=== PATIENT | male | born 1935 | race Caucasian/White ===

== ENCOUNTER 2017-07-15 09:03 | Inpatient (IN) | payer MEDICARE ==
[~2017-07-15] VITALS: Ht 185.4 cm; Wt 118.1 kg
[~2017-07-15 09:03] MED LIST: ADVAIR 250-501 EACH IH; ALBUTEROL2.5 MG/3 M INH; BABY ASPIRIN81 MG PO; CALCIUM 600 +1 EACH PO; CARVEDILOL3.125 MG PO; CENTRAL-VITE1 EACH PO; CINNAMON500 MG PO; CIPRO500 MG PO; CIPROFLOXACIN500 MG PO; COMBIVENT INH14.7 GM INH; COUMADIN10 MG PO; COUMADIN7.5 MG; DEMADEX20 MG PO; DUONEB 0.5 MG-33 ML INH; FLUCONAZOLE200 MG; FUROSEMIDE80 MG PO; GLUCOPHAGE500 MG PO; GLUCOSAMINE-MS1 EAC3 PO; KEFLEX500 MG PO; KLOR-CON 1010 MEQ PO; KLOR-CON M2020 MEQ PO; L-ARGININE1000 MG PO; LASIX40 MG PO; LISINOPRIL2.5 MG PO; MACROBID 100 M100 MG PO; MACRODANTIN100 MG PO; MACRODANTIN50 MG PO; METFORMIN HCL1000 MG PO; NITROFURANTOIN50 MG PO; NITROSTAT0.4 MG SL; NORCO 5-325 TA1 EACH PO; OMEPRAZOLE20 MG PO; PRAVACHOL80 MG PO; PREDNISONE20 MG PO; PROMETHAZINE-COD5 ML PO; SPIRIVA18 MCG IH; SULFAMETHOXAZO1 EAC1 PO; SYNTHROID150 MCG PO; SYNTHROID25 MCG PO; TORSEMIDE20 MG PO; VENTOLIN HFA18 GM INH; VITAMIN C250 MG PO; WARFARIN SODIUM2 MG PO; WARFARIN SODIUM3 MG PO; ZITHROMAX PO; ZITHROMAX500 MG PO
[2017-07-15] MEDS ORDERED: AZITHROMYCIN500 MG PO (09:22)
[2017-07-15] MEDS ORDERED: METHYLPREDNISOLO4 MG PO (09:22)
[2017-07-15] MEDS ORDERED: ADVAIR 100-501 EACH PO (12:10)
[2017-07-15] MEDS ORDERED: SPIRIVA18 MCG INH (12:11)
--- NOTE | 2017-07-15 17:59 | EKG ---
[facility] [address] [facility] [place], [place] [address] Signed Ventricular-paced rhythm Abnormal ECG No previous ECGs available Confirmed by DESTINI CHERY MD ([id number]) on 07/15/2017 5:59:12 PM Electronically Signed By: DESTINI CHERY MD 07/15/17 1759 PATIENT NAME: DENISE VENTURA Electrocardiogram DATE OF : 37 PHYSICIAN: DESTINI CHERY MD REPORT #: [id number] REPORT IS CONFIDENTIAL AND NOT TO BE RELEASED WITHOUT AUTHORIZATION
[2017-07-17] MEDS ORDERED: DOXYCYCLINE HY100 MG PO (21:17)
[2017-07-17] MEDS ORDERED: CEFDINIR300 MG PO (21:17)
[2017-07-17] MEDS ORDERED: NITROFURANTOIN50 MG PO (21:18)
[2017-07-18] MEDS ORDERED: DOXYCYCLINE HY100 MG PO (09:55)
[2017-07-18] MEDS ORDERED: CEFDINIR300 MG PO (09:55)
[2017-07-19] MEDS ORDERED: GUAIFEN-CODEINE10 ML PO (09:21)
[2017-08-08] MEDS ORDERED: COLCRYS0.6 MG PO (10:17)
== END 2017-07-19 12:45 | disposition home or self-care (01) | DRG 194 ==
LOC: ED 09:03 → MS 11:33
PROVIDERS: ADMIT Internal Medicine
DX: J18.1 Lobar pneumonia, unspecified organism (principal); J44.0 Chronic obstructive pulmonary disease with (acute) lower respiratory infection; J44.1 Chronic obstructive pulmonary disease with (acute) exacerbation; I13.0 Hypertensive heart and chronic kidney disease with heart failure and stage 1 through stage 4 chronic kidney disease, or unspecified chronic kidney disease; I25.10 Atherosclerotic heart disease of native coronary artery without angina pectoris; N18.3 Chronic kidney disease, stage 3 (moderate); I50.9 Heart failure, unspecified; E03.9 Hypothyroidism, unspecified; E78.5 Hyperlipidemia, unspecified; I48.91 Unspecified atrial fibrillation; K21.9 Gastro-esophageal reflux disease without esophagitis; E11.22 Type 2 diabetes mellitus with diabetic chronic kidney disease; Z79.01 Long term (current) use of anticoagulants; Z87.891 Personal history of nicotine dependence; Z95.4 Presence of other heart-valve replacement; Z79.84 Long term (current) use of oral hypoglycemic drugs
CPT/HCPCS: 36415; 71046; 80048; 80053; 80202; 83605; 84484; 85025; 85610; 87040; 87070; 87205; 93005; 93010; 94640; 94660; 94667; 94668; J0696; J2930; J3370; J7040; J7050

== ENCOUNTER 2017-11-19 00:16 | Emergency (ER) | payer MEDICARE ==
[~2017-11-19] VITALS: Ht 185.4 cm; Wt 112.5 kg
[~2017-11-19 00:16] MED LIST changes: +ADVAIR 100-501 EACH PO; +AZITHROMYCIN500 MG PO; +CEFDINIR300 MG PO; +COLCRYS0.6 MG PO; +DOXYCYCLINE HY100 MG PO; +GUAIFEN-CODEINE10 ML PO; +METHYLPREDNISOLO4 MG PO; +SPIRIVA18 MCG INH
[2017-11-19] MEDS ORDERED: CIPRO500 MG PO (01:30)
[2017-11-19] MEDS ORDERED: PYRIDIUM200 MG PO (01:30)
== END 2017-11-19 01:43 | disposition home or self-care (01) ==
LOC: ED 00:16
DX: N39.0 Urinary tract infection, site not specified (principal); E11.9 Type 2 diabetes mellitus without complications; J44.9 Chronic obstructive pulmonary disease, unspecified; Z88.8 Allergy status to other drugs, medicaments and biological substances; Z79.899 Other long term (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; Z79.01 Long term (current) use of anticoagulants
CPT/HCPCS: 81001; 87088; 99283

== ENCOUNTER 2018-01-06 08:00 | Emergency (ER) | payer MEDICARE ==
[~2018-01-06] VITALS: Ht 185.4 cm; Wt 112.5 kg
[~2018-01-06 08:00] MED LIST changes: +BACTRIM DS TAB1 EACH PO; +PYRIDIUM200 MG PO
[2018-01-06] MEDS ORDERED: DOXYCYCLINE HY100 MG PO (08:55)
== END 2018-01-06 09:24 | disposition home or self-care (01) ==
LOC: ED 08:00
DX: L27.0 Generalized skin eruption due to drugs and medicaments taken internally (principal); T37.0X5A Adverse effect of sulfonamides, initial encounter; M70.21 Olecranon bursitis, right elbow; Z88.8 Allergy status to other drugs, medicaments and biological substances; Z88.1 Allergy status to other antibiotic agents; Z79.899 Other long term (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
CPT/HCPCS: 85610; 99283

== ENCOUNTER 2018-10-20 10:53 | Emergency (ER) | payer MEDICARE ==
[~2018-10-20] VITALS: Ht 185.4 cm; Wt 111.7 kg
--- OUTSIDE RECORDS SUMMARY | ~2018-10-20 | XMS | Encounter Summary ---
Demographics + + + | Address | [address] | | | [place] [address] | + + + | Home Phone | | + + + | Preferred Language | Unknown | + + + | Marital Status | | + + + | Jewish Affiliation | 1013 | + + + | Race | Unknown | + + + | Ethnic Group | Unknown | + + + Author + + + | Author | [email or web address] | + + + | Organization | [facility] | + + + | Address | Unknown | + + + | Phone | Unavailable | + + + Support + + +---------+ + | Name | Relationship | Address | Phone | + + +---------+ + | Juana Gasca | ECON | Unknown | | + + +---------+ + Care Team Providers + +------+ + | Care Clinical Technologist Name | Role | Phone | + +------+ + | Timo Lorenzana MD | PCP | | + +------+ + Reason for Visit + + + | Reason | Comments | + + + | Medication Refill | | + + + Encounter Details +--------+--------+ + + + | Date | Type | Department | Care Team | Description | +--------+--------+ + + + | 10/13/ | Refill | [facility] | Kartik Elam | Medication Refill | | 2019 | | Cardiology Jacklyn Muniz MD [address] | | | | | [address] | [place] | | | | | [place], [place] | [place] [address] | | | | | [address] | [phone] | | | | | [phone] | | | +--------+--------+ + + + Social History + + + +--------+ + | Tobacco Use | Types | Packs/Day | Years | Date | | | | | Used | | + + + +--------+ + | Former Smoker | Cigarettes | 2.5 | 50 | Quit: 06/05/1990 | + + + +--------+ + + +---+---+---+ | Smokeless Tobacco: | | | | | Never Used | | | | + +---+---+---+ + + | Comments: quit 07/22/1990 | + + + + +---------+ + | Alcohol Use | Drinks/We | oz/Week | Comments | | | ek | | | + + +---------+ + | Yes | 7-10 | 4.2 - | | | | Glasses | 6.0 | | | | of wine | | | | | 0 | | | | | Standard | | | | | drinks or | | | | | | | | | | equivalen | | | | | t | | | + + +---------+ + + + + | Sex Assigned at | Date Recorded | | | | + + + | Not on file | | + + + as of this encounter Plan of Treatment +--------+ + + + + | Date | Type | Specialty | Care Team | Description | +--------+ + + + + | 11/27/ | Documentati | Cardiology | | | | 2019 | on Only | | | | +--------+ + + + + | 04/03/ | Office | Cardiology | Elif Hylton, | | | 2018 | Visit | | MD Asad Simpson | | | | | | Dr [address], | | | | | | [place] [address] | | | | | | [phone] | | | | | | | | +--------+ + + + + as of this encounter Visit Diagnoses + + | Diagnosis | + + | Chronic atrial fibrillation (HCC) | + + | Atrial fibrillation | + +"
--- OUTSIDE RECORDS SUMMARY | ~2018-10-20 | XMS | Clinical Summary ---
Demographics + + + | Address | [address] | | | [place] [address] | + + + | Home Phone | | + + + | Preferred Language | Unknown | + + + | Marital Status | | + + + | Druze Affiliation | 1013 | + + + | Race | Unknown | + + + | Ethnic Group | Unknown | + + + Author + + + | Author | [employer] | + + + | Organization | [facility] [employer] [facility] | + + + | Address | Unknown | + + + | Phone | Unavailable | + + + Support + + +---------+ + | Name | Relationship | Address | Phone | + + +---------+ + | Juana Ventura | ECON | Unknown | | + + +---------+ + Care Team Providers + +------+ + | Care Deployment Manager Name | Role | Phone | [...] + + + Current Medications + + + +---------+------+------+-------+ | Prescription | Sig. | Disp. | Refills | Star | End | Statu | | | | | | t | Date | s | | | | | | Date | | | + + + +---------+------+------+-------+ | levothyroxine | Take 150 mcg by | | | | | Activ | | (SYNTHROID, | mouth every morning | | | | | e | | LEVOTHROID) 150 MCG | before breakfast. | | | | | | | tablet | | | | | | | + + + +---------+------+------+-------+ | warfarin | Take 10 mg by mouth | | | | | Activ | | (COUMADIN) 10 MG | daily. Sliding | | | | | e | | tablet | [facility] | | | | | | | | regulates | | | | | | + + + +---------+------+------+-------+ | pravastatin | Take 80 mg by mouth | | | | | Activ | | (PRAVACHOL) 80 MG | nightly. | | | | | e | | tablet | | | | | | | + + + +---------+------+------+-------+ | omeprazole | Take 20 mg by mouth | | | | | Activ | | (PRILOSEC) 20 MG | every morning before | | | | | e | | capsule | breakfast. | | | | | | + + + +---------+------+------+-------+ | aspirin 81 MG EC | Take 81 mg by mouth | | | | | Activ | | tablet | daily with | | | | | e | | | breakfast. | | | | | | + + + +---------+------+------+-------+ | Multiple | Take by mouth | | | | | Activ | | Vitamins-Minerals | daily. | | | | | e | | (EQL CENTRAL-ROSAMARIA | | | | | | | | SELECT PO) | | | | | | | + + + +---------+------+------+-------+ | | Take 3,000 mg by | | | | | Activ | | Glucosamine-Chondroi | mouth daily. | | | | | e | | t-Vit C-Mn | | | | | | | | (GLUCOSAMINE 1500 | | | | | | | | COMPLEX PO) | | | | | | | + + + +---------+------+------+-------+ | albuterol | Inhale 2 puffs into | | | | | Activ | | (VENTOLIN HFA) 108 | the lungs every 4 | | | | | e | | (90 BASE) MCG/ACT | (four) hours as | | | | | | | inhaler | needed. | | | | | | + + + +---------+------+------+-------+ | Respiratory | by Does not apply | | | | | Activ | | Therapy Supplies | route as needed. | | | | | e | | (NEBULIZER | | | | | | | | COMPRESSOR) KIT | | | | | | | + + + +---------+------+------+-------+ | NITROSTAT 0.4 MG | place 1 [...] | | | | + + + +---------+------+------+-------+ | nitrofurantoin | Take 50 mg by mouth | | | | | Activ | | (MACRODANTIN) 50 MG | nightly. | | | | | e | | capsule | | | | | | | + + + +---------+------+------+-------+ | CINNAMON PO | Take 1,000 mg by | | | | | Activ | | | mouth daily. | | | | | e | + + + +---------+------+------+-------+ | cyanocobalamin | Take 1,000 mcg by | | | | | Activ | | (VITAMIN B-12) 1000 | mouth daily. | | | | | e | | MCG tablet | | | | | | | + + + +---------+------+------+-------+ | tiotropium | Inhale 1 capsule | [...] | | | | + + + +---------+------+------+-------+ | metFORMIN | Take 850 mg by mouth | | | 02/0 | | Activ | | (GLUCOPHAGE) 500 MG | 3 (three) times | | | 8/20 | | e | | tablet | daily. | | | 17 | | | + + + +---------+------+------+-------+ | torsemide | Take 2 tablets by | 360 | 3 | 08/0 | | Activ | | (DEMADEX) 20 MG | mouth daily. | tablet | | 9/20 | | e | | tablet | | | | 17 | | | + + + +---------+------+------+-------+ | | Inhale 1 puff into | [...] | | | | + + + +---------+------+------+-------+ | torsemide | TAKE 2 TABLETS BY | 360 | 2 | 06/0 | | Activ | | (DEMADEX) 20 MG | MOUTH 2 TIMES DAILY | tablet | | 4/20 | | e | | tablet | NEEDED. | | | 18 | | | + + + +---------+------+------+-------+ | albuterol | Take 3 mLs by | 360 mL | 6 | 07/2 | 07/2 | Activ | | (PROVENTIL) (2.5 | nebulization every 6 | | | 3/20 | 3/20 | e | | MG/3ML) 0.083% | (six) hours as | | | 18 | 19 | | | nebulizer | needed for Wheezing. | | | | | | | solutionIndications: | | | | | | | | Chronic obstructive | | | | | | | | pulmonary disease, | | | | | | | | unspecified COPD | | | | | | | | type (HCC) | | | | | | | + + + +---------+------+------+-------+ | lisinopril | TAKE 1 TABLET BY | 90 | 2 | 05/1 | | Activ | | (ZESTRIL) 2.5 MG | MOUTH DAILY | tablet | | 2/20 | | e | | tablet | | | | 19 | | | + + + +---------+------+------+-------+ | potassium chloride | TAKE 1 TABLET BY | 90 | 2 | 05/1 | | Activ | | SA (KTIFF LAY) | MOUTH DAILY | tablet | | 2/20 | | e | | 20 MEQ tablet | | | | 19 | | | + + + +---------+------+------+-------+ | carvedilol (COREG) | Take 0.5 tablets by | 90 | 3 | 05/1 | | Activ | | 3.125 MG tablet | mouth 2 (two) times | tablet | | 3/20 | | e | | | daily. | | | 19 | | | + + + +---------+------+------+-------+ | lisinopril | TAKE 1 TABLET BY | 90 | 2 | / | 05/ | Disco | | (ZESTRIL) 2.5 MG | MOUTH DAILY | tablet | | 8/20 | 20 | ntinu | | tablet | | | | 18 | 19 | ed | + + + +---------+------+------+-------+ | potassium chloride | TAKE 1 TABLET BY | 90 | 2 | / | 10/03 | Disco | | SA (KTIFF LAY) | MOUTH DAILY | tablet | | 8/20 | /20 | ntinu | | 20 MEQ tablet | | | | 18 | 19 | ed | + + + +---------+------+------+-------+ | carvedilol (COREG) | TAKE ONE-HALF TABLET | 45 | 3 | 03/0 | 05/1 | Disco | | 3.125 MG tablet | BY MOUTH TWO TIMES | tablet | | 4/20 | 08/22 | ntinu | | | DAILY | | | 19 | 19 | ed | + + + +---------+------+------+-------+ Active Problems + + + | Problem [...] | | prophylaxis reenforced. Anticoagulation managed by [facility].Hx CABG: no, but [...] | Overview: Overview: | | 03/10/2014 at [facility] | + + + + + | [...] | implanted 08/30/2007, Maris Shaffer 1291, SN: [id number] | | interrogation 04/16/2015: battery "good", 3+years, [...] Taxus | | SHIRLEY).Hx Pacemaker/ICD: 08/30/2007, Guidant Insignia 1291, SN: | | [id number] Cath, 03/09/2014: RA: 80/13 mean 16mmHg, RV: [...] fib, V-paced 100%. | + + Encounters +--------+ + + + + | Date | Type | Specialty | Care Team | Description | +--------+ + + + + | 10/13/ | Refill | | Kartik Elam | Medication Refill | | 2018 | | | MD Cristy | | +--------+ + + + + | 10/13/ | Refill | | Elif Hylton, | Medication Refill | | 2019 | | | MD | | +--------+ + + + + | 09/13/ | Documentati | | Rosita Donaldson | Other ([facility] | | 2018 | on Only | | STEFANIE Gil | records) | +--------+ + + + + | 09/12/ | Office | | Elif Hylton, | Coronary artery | | 2019 | Visit | | MD | disease, angina | | | | | | presence | | | | | | unspecified, | | | | | | unspecified vessel | | | | | | or lesion type, | | | | | | unspecified whether | | | | | | ione or | | | | | | transplanted heart | | | | | | (Primary Dx); | | | | | | Essential | | | | | | hypertension; S/P | | | | | | MVR (mitral valve | | | | | | replacement); S/P | | | | | | AVR (aortic valve | | | | | | replacement); MARY | | | | | | treated with BiPAP; | | | | | | Cardiac pacemaker in | | | | | | situ; Mixed | | | | | | hyperlipidemia | +--------+ + + + + | 09/10/ | Documentati | | Tera Izquierdo, | Other (Faxed advair | | 2019 | on Only | | [place] | prescription to | | | | | | [facility]) | +--------+ + + + + | 08/06/ | Refill | | Kartik Elam | Medication Refill | | 2019 | | | C, MD | | +--------+ + + + + from Last 3 Months [...] + + + + Plan of Treatment +--------+ + + + + | Date | Type | Specialty | Care Team | Description | +--------+ + + + + | 11/27/ | Documentati | | | | | 2018 | on Only | | | | +--------+ + + + + | 04/03/ | Office | | Elif Hylton, | | | 2018 | Visit | | MD Asad Simpson | | | | | | Dr [address], | | | | | | [place] [address] | | | | | | [phone] | | | | | | | | +--------+ + + + + + + + + + | Health [...] | | 02/01/2014, 02/03/2013, | | | (Season Ended) | 9 | 04/18/2012 | | + [...] | 2018 | 5 / | | [id number]: Qty: 1 on | | | | [...] | 2018 | 5 / | | [id number]: Qty: 1 on | | | | [...] | | 2018 | -23 | | [id number]: Qty: 1 on | | | | | | /[id number] | | 03/10/2014 by Caro, | | | | | | 02 / | | MD Timothy | | | | | | | + +------+-------+ +--------+--------+--------+ | Pacing Wire Dual | | N/A: | [facility] | | 09/02/ | 030-00 | | 030-005 - | | Heart | | | 2018 | 5 / | | [id number]: Qty: 1 on | | | | | | /164 | | 03/10/2014 by Caro, | | | | | | | | MD Timothy | | | | | | | + +------+-------+ +--------+--------+--------+ Procedures + +--------+ + + + | Procedure Name | Priori | Date/Time | Associated Diagnosis | Comments | | | ty | | | | + +--------+ + + + | EKG STANDARD 12 LEAD | Routin | 09/12/2018 | Coronary artery | Results for this | | | e | 9:03 AM | disease, angina | procedure are in the | | | | PDT | presence | results section. | | | | | unspecified, | | | | | | unspecified vessel | | | | | | or lesion type, | | | | | | unspecified whether | | | | | | ione or | | | | | | transplanted heart | | | | | | Essential | | | | | | hypertension | | + +--------+ + + + from Last 3 Months Results EKG STANDARD 12 LEAD (09/12/2018 9:03 AM) + + + + + | Component | Value | Ref Range | Performed At | + + + + + | Ventricular Rate | 62 | BPM | [facility] | + + + + + | Atrial Rate | 131 | BPM | [facility] | + + + + + | QRS Duration | 182 | ms | [facility] | + + + + + | Q-T Interval | 506 | ms | [facility] | + + + + + | QTC Calculation | 513 | ms | [facility] | | (Bezet) | | | | + + + + + | Calculated R Silverado | -85 | degrees | [facility] | + + + + + | Calculated T [place] | 89 | degrees | [facility] | + + + + + | Diagnosis | Sinus tachycardia with | | [facility] | | | complete heart block and | | | | | Wide QRS rhythm with | | | | | occasional Premature | | | | | ventricular | | | | | complexesLeft axis | | | | | deviationLeft bundle | | | | | branch blockAbnormal | | | | | ECGWhen compared with | | | | | ECG of 13-JUL-2016 | | | | | 09:45,Sinus rhythm is | | | | | now with complete heart | | | | | blockPlease refer to | | | | | Providers office visit | | | | | note for Providers | | | | | Interpretation.Confirmed | | | | | by [facility] Read Only, | | | | | [facility] Calvin ([id number]), | | | | | editor map Augustine Samuel | | | | | ([id number]) on 09/12/2018 | | | | | 9:15:01 AM | | | + + + + + + + + + + | Performing | Address | City/State/Zipcode | Phone Number | | Organization | | | | + + + + + | [facility] | [address] | [place] [address] | | + + + + + from Last 3 Months Insurance + +--------+ +--------+ + + | Payer | Benefi | Subscriber | Type | Phone | Address | | | t Plan | ID | | | | | | / | | | | | | | Group | | | | | + +--------+ +--------+ + + | [place] - | [id number] | [employer] | [phone] | [address] [address] [place] | | HEALTHCARE | [employer] | | re | [phone] | [place] [address] | | | | | | | [...] + +--------+ +--------+ + + | DENISE VENTURA | Person | Self [birth year] Home: | [address] | | | al/Fam | | [phone] | [phone] [place] | | | od[place] | | | [phone] | [address] | + +--------+ +--------+ + +
--- OUTSIDE RECORDS SUMMARY | ~2018-10-20 | XMS | Clinical Summary ---
Demographics + + + | Address | [address] | | | [place] [address] | + + + | Home Phone | | + + + | Preferred Language | Unknown | + + + | Marital Status | | + + + | Yazidism Affiliation | 1013 | + + + | Race | Unknown | + + + | Ethnic Group | Unknown | + + + Author + + + | Author | [facility] | | | and [place] | + + + | Organization | [facility] | | | and [place] | + + + | Address | Unknown | + + + | Phone | Unavailable | + + + Support + + + + + | Name | Relationship | Address | Phone | + + + + + | Frances Gasca | GABRIELE | NA | | | | | [place] [address] | | + + + + + | Juana Gasca | ECON | [address] | | | | | [place] | | | | | [address] | | + + + + + | Juana Gasca | Unknown | | + + + + + Care Team Providers + +------+ + | Care Assurance Senior Manager Insurance Name | Role | Phone | + +------+ + | Timo Lorenzana | PP | | | MD | | | + +------+ + Allergies + + + +--------+ + | Active Allergy | Reactions | Severity | Noted | Comments | | | | | Date | | + + + +--------+ + | Metoprolol Succinate | Swelling | | | | + + + +--------+ + Medications + + + +---------+------+------+-------+ | Medication | Sig | Dispensed | Refills | Star | End | Statu | | | | | | t | Date | s | | | | | | Date | | | + + + +---------+------+------+-------+ | Potassium Chloride | CR-TABS - 1 tablet | | 0 | 09/1 | | Activ | | Kaylene CR (KLOR-CON | by mouth twice daily | | | 4/20 | | e | | M20 PO) | | | | 12 | | | + + + +---------+------+------+-------+ | nitroglycerin | Use as directed as | | 0 | 09/1 | | Activ | | (NITROSTAT) 0.4 mg | needed | | | 420 | | e | | SL tablet | | | | 12 | | | + + + +---------+------+------+-------+ | lisinopril | Take 2.5 mg by mouth | | 0 | 09/1 | | Activ | | (PRINIVIL,ZESTRIL) | Daily. | | | 4/20 | | e | | 2.5 MG tablet | | | | 12 | | | + + + +---------+------+------+-------+ | metFORMIN | Take 500 mg by mouth | | 0 | 09/1 | | Activ | | (GLUCOPHAGE) 500 mg | 2 times daily. | | | 4/20 | | e | | tablet | | | | 12 | | | + + + +---------+------+------+-------+ | aspirin (ASPIRIN | Take 81 mg by mouth | | 0 | 02/03 | | Activ | | LOW DOSE) 81 MG | Daily. | | | 09/22 | | e [...] 150 mcg by | | 0 | 05 | | Activ | | (SYNTHROID, | mouth Daily. | | | 10/22 | | e | | LEVOTHROID) 150 mcg | | | | 12 | | | | tablet | | | | | | | + + + +---------+------+------+-------+ | carvedilol (COREG) | 1/2 tablet twice | | 0 | 10/0 | | Activ | | 3.125 mg tablet | daily | | | 3/20 | | e | | | | | | 12 | | | + + + +---------+------+------+-------+ | Multiple | Take one by mouth | | 0 | 10/0 | | Activ | | Vitamins-Minerals | daily | | | 3/20 | | e | | (EQL CENTRAL-ROSAMARIA) | | | | 12 | | | | TABS | | | | | | | + + + +---------+------+------+-------+ | omeprazole | Take 20 mg by mouth | | 0 | 10/0 | | Activ | | (PRILOSEC OTC) 20 mg | Daily. | | | 3/20 | | e | | tablet | | | | 12 | | | + + + +---------+------+------+-------+ | warfarin | Take 7.5 mg by mouth | | 0 | 10/0 | | Activ | | (COUMADIN) 7.5 mg | Daily. Take 7.5mg | | | 3/20 | | e | | tablet | on Monday and | | | 12 | | | | | Monday. Take 10mg | | | | | | | | all other days | | | | | | + + + +---------+------+------+-------+ | | Take 1,500 mg by | | 0 | | | Activ | | Glucosamine-Chondroi | mouth. Take 2 | | | | | e | | t-Vit C-Mn | tablets every AM and | | | | | | | (GLUCOSAMINE 1500 | 1 tablet every PM | | | | | | | COMPLEX PO) | | | | | | | + + + +---------+------+------+-------+ | CINNAMON PO | Take 1,000 mg by | | 0 | | | Activ | | | mouth 2 times daily. | | | | | e | + + + +---------+------+------+-------+ | nitrofurantoin | Take 50 mg by mouth | | 0 | | | Activ | | (MACRODANTIN) 50 MG | nightly. | | | | | e | | capsule | | | | | | | + + + +---------+------+------+-------+ | torsemide | Take 40 mg by mouth | | 0 | | | Activ | | (DEMADEX) 20 mg | 2 times daily. | | | | | e | | tablet | | | | | | | + + + +---------+------+------+-------+ | albuterol (PROAIR | Inhale 2 puffs into | 3 | 4 | 07/2 | | Activ | | HFA) 90 mcg/puff | the lungs every 4 | Inhaler | | 0/20 | | e | | inhaler | hours as needed for | | | 15 | | | | | Shortness of Breath. | | | | | | + + + +---------+------+------+-------+ | tiotropium | Inhale contents of | 90 | 3 | 11/0 | | Activ | | (SPIRIVA HANDIHALER) | one capsule once | capsule | | 9/20 | | e | | 18 mcg inhalation | daily (do not | | | 15 | | | | capsule | swallow capsules) | | | | | | + + + +---------+------+------+-------+ | albuterol 2.5 mg/3 | Take 3 mLs by | 270 | 3 | 02/2 | | Activ | | mL nebulizer | nebulization every 4 | vial | | 6/20 | | e | | solution | hours as needed for | | | 16 | | | | | Wheezing or | | | | | | | | Shortness of Breath. | | | | | | | | J44.9 OKSANA: 12 | | | | | | | | months | | | | | | + + + +---------+------+------+-------+ Active Problems + + + | Problem | Noted Date | + + + | S/P AVR (aortic valve replacement) | 03/28/2014 | + + + + + | Overview: 03/10/2014 at [facility] | + + + + + | S/P MVR (mitral valve replacement) | 03/28/2014 | + + + | Nocturnal hypoxemia due to emphysema | 03/29/2013 | + + + | Urethral stricture | 12/28/2012 | + + + | Dysphagia | 02/21/2012 | + + + + + | Overview: ICD-10 Record update | + + + + + | Obstructive sleep apnea on BiPAP | 10/18/2011 | + + + | Hoarseness | 10/18/2011 | + + + | COPD (chronic obstructive pulmonary disease) | 06/02/2011 | + + + | Diabetes mellitus, type II | | + + + | Hypertension | | + + + | Anemia | | + + + | Hypothyroidism | | + + + | Osteoarthritis | | + + + | Otogenic vertigo | | + + + | Coronary artery disease | | + + + | Atrial fibrillation | | + + + + + | Overview: s/p ablation and pacemaker | + + Resolved Problems + + + + | Problem | Noted | Resolved | | | Date | Date | + + + + | Dyspnea on exertion | 06/02/20 | | | | 11 | 5 | + + + + | Congestive heart failure | | | | | | 5 | + + + + | Calcific aortic stenosis | | | | | | 4 | + + + + | Mitral valve stenosis | | | | | | 4 | + + + + Immunizations + + + + | Name | Dates Previously Given | Next Due | + + + + | INFLUENZA 66 Y OR >, | 01/28/2015 | | | TRIVALENT HIGH-DOSE | | | + + + + | INFLUENZA PF 19 Y OR | 02/01/2014, 02/03/2013, 04/18/2012 | | | >,TRIVALENT | | | | RECOMBINANT | | | + + + + | PNEUMOCOCCAL | 05/01/2014 | | | CONJUGATE 13-VALENT | | | | (PCV13) | | | + + + + | PNEUMOCOCCAL | 07/19/2009 | | | POLYSACCHARIDE | | [...] ASHD | + + +------+ + | Arthritis [...] + + | Father | | | | | | | (Age | | | | | 67) | | + +------+ + + | Mother | | | | | | | [...] | | | 1 drink in the evening | + + +---------+ + + [...] recent travel history available. | + + Last Filed Vital Signs + + + + | Vital Sign | Reading | Time Taken | + + + + | Blood Pressure | 122/60 | 07/31/2015 1401 PST | + + + + | Pulse | 60 | 07/31/20151400 PST | + + + + | Temperature | 36.4 C (97.5 F) | 07/31/20151400 PST | + + + + | Respiratory Rate | 16 | 07/31/2015 140 PST | + + + + | Oxygen Saturation | 94% | 07/31/20151400 PST | + + + + | Inhaled Oxygen | - | - | | Concentration | | | + + + + | Weight | 124.3 kg (274 lb) | 07/31/20151400 PST | + + + + | Height | 182.9 cm (6') | 07/31/20151400 PST | + + + + | Body Mass Index | 37.16 | 07/31/20151400 PST | + + + + Plan of [...] + + | Hemoglobin A1c | | | | | Screening | 4 | | | + + [...] + + | Vaccine: Influenza | | 01/28/2015, 02/01/2014, | | | (Season Ended) | 9 | 02/03/2013, Additional history | | | | | exists | | + + + + + | Vaccine: | Completed | 05/01/2014, 07/19/2009 | | | Pneumococcal 65+ | | | | | Low/Medium Risk | | | | + + + + + Results Not on filefrom Last 3 Months [...] +--------+ +---------+--------+ | MEDICARE | MEDICA | [id number] | 12/03/18 | [phone] | | Medica | | | RE | | 99-Pre | 5 | | re | | | PART A | | sent | | | | | | AND B | | | | | | + +--------+ +--------+ +---------+--------+ | [facility] | UNITED | [id number] | 06/05/19 | [phone] | | PPO [...] | | al/Fam | | 1935 | [phone] | [place] | | | [place] | | | 0 (Home) | [address] | + +--------+ +--------+ + + Advance Directives Patient has advance care planning documents on file. For more information, please contact:[facility] [employer] [facility] [place] [address]"
--- OUTSIDE RECORDS SUMMARY | ~2018-10-20 | XMS | Clinical Summary ---
Demographics + + + | Address | [address] | | | [place] [address] | + + + | Home Phone | | + + + | Preferred Language | Unknown | + + + | Marital Status | | + + + | Islam Affiliation | 1013 | + + + | Race | Unknown | + + + | Ethnic Group | Unknown | + + + Author + + + | Author | [facility] | | | and [place] | + + + | Organization | [facility] | | [...] | | | | | [place] [address] | | + + + + + | Juana Gasca | ECON | [address] | | | | | [place] | | | | | [address] | | + + + + + | Juana Gasca | Unknown | | + + + + + Care Team Providers + +------+ + | Care Cnc Machinist Name | Role | Phone | + [...] +--------+ +---------+--------+ | MEDICARE | MEDICA | [id number] | 12/03/18 | [phone] | | Medica | | | RE | | 99-Pre | 5 | | re | | | PART A | | sent | | | | | | AND B | | | | | | + +--------+ +--------+ +---------+--------+ | [facility] | UNITED | [id number] | 06/05/19 | [phone] | | PPO [...] [place] | | | 0 (Home) | [address] | + +--------+ +--------+ + + Advance Directives Patient has advance care planning documents on file. For more information, please contact:[facility] [employer] [place] [address]"
--- OUTSIDE RECORDS SUMMARY | ~2018-10-20 | XMS | Encounter Summary ---
Demographics + + + | Address | [address] | | | [place] [address] | + + + | Home Phone | | + + + | Preferred Language | Unknown | + + + | Marital Status | | + + + | Mosque Affiliation | 1013 | + + + | Race | Unknown | + + + | Ethnic Group | Unknown | + + + Author + + + | Author | [facility] | + + + | Organization | [facility] | + + + | Address | Unknown | + + + | Phone | Unavailable | + + + Support + + +---------+ + | Name | Relationship | Address | Phone | + + +---------+ + | Juana Gasca | ECON | Unknown | | + + +---------+ + Care Team Providers + +------+ + | Care Staff Research Scientist Name | Role | Phone | + +------+ + | Med Lorenzana MD | PCP | | + +------+ + Reason for Visit + + + | Reason | Comments | + + + | Follow-up | 6 month | + + + Encounter Details +--------+---------+ + + + | Date | Type | Department | Care Team | Description | +--------+---------+ + + + | 09/12/ | Office | [facility] | Elif Weinstein, | Coronary artery | | 2019 | Visit | [facility] [place] | [address] | disease, angina | | | | [address] | [address] Norberto F [address], | presence | | | | [address] | [place] [address] | unspecified, | | | | [place] [address] | [phone] | unspecified vessel | | | | [phone] | | or lesion type, | | | | | | unspecified whether | | | | | | shinnecock or | | | | | | [...] | | | | | hyperlipidemia | +--------+---------+ + + + Social History [...] + + + as of this encounter Last Filed Vital Signs + + + + | Vital Sign | Reading | Time Taken | + + + + | Blood Pressure | 118/58 | 09/12/2018 8:57 AM PDT | + + + + | Pulse | 60 | 09/12/2018 8:57 AM PDT | + + + + | Temperature | - | - | + + + + | Respiratory Rate | - | - | + + + + | Oxygen [...] AM PDT | + + + + in this encounter Progress Notes Elif Weinstein MD - 09/12/2018 9:00 AM PDTFormatting of this note may be different fro m the original. Date of visit: 09/12/2018 Primary Care Physician: MED LORENZANA CHIEF COMPLAINT: Chief Complaint Patient presents with Follow-up 6 month HISTORY OF PRESENT ILLNESS: Serge is 83 y.o. here for follow up, complex past medical history with rheumatic valvular h eart disease S/P MVR and AVR. Was hospitalized in August of 2018 due to influenza A. Recovered well. Lost weight around 10 pounds. Denies any chest pain or shortness of breath. Got a wireless scale that is managed by [employer]. Wears pressure socks for lower ext edema swelling. Blood pressure has been controlled, on l ow doses of Carvedilol and Lisinopril. Has a treadmill at home however he is not using it. Past medical history, SH, FH, and medications were reviewed in the chart. Medications: Outpatient Encounter Prescriptions as of 09/12/2018 Medication Sig Dispense Refill albuterol (PROVENTIL) (2.5 MG/3ML) 0.083% nebulizer solution Take 3 mLs by nebulization every 6 (six) hours as needed for Wheezing. 360 mL 6 albuterol (VENTOLIN HFA) 108 (90 BASE) MCG/ACT inhaler Inhale 2 puffs into the lungs ev flip 4 (four) hours as needed. aspirin 81 MG EC tablet Take 81 mg by mouth daily with breakfast. carvedilol (COREG) 3.125 MG tablet TAKE ONE-HALF TABLET BY MOUTH TWO TIMES DAILY 45 ta blet 3 CINNAMON PO Take 1,000 mg by mouth daily. cyanocobalamin (VITAMIN B-12) 1000 MCG tablet Take 1,000 mcg by mouth daily. fluticasone-salmeterol (ADVAIR) 100-50 MCG/DOSE diskus inhaler Inhale 1 puff into the l ungs 2 (two) times daily. 180 each 3 Jkdixxnumlg-Qjuqjlanc-Mgl C-Mn (GLUCOSAMINE 1500 COMPLEX PO) Take 3,000 mg by mouth priya ly. levothyroxine (SYNTHROID, LEVOTHROID) 150 MCG tablet Take 150 mcg by mouth every mornin g before breakfast. lisinopril (ZESTRIL) 2.5 MG tablet TAKE 1 TABLET BY MOUTH DAILY 90 tablet 2 metFORMIN (GLUCOPHAGE) 500 MG tablet Take 850 mg by mouth 3 (three) times daily. Multiple Vitamins-Minerals (EQL CENTRAL-ROSAMARIA SELECT PO) Take by mouth daily. nitrofurantoin (MACRODANTIN) 50 MG capsule Take 50 mg by mouth nightly. NITROSTAT 0.[address] 1 tablet under the tongue every 5 minutes if needed fo r chest pain may repeat 3 TIMES THEN GO TO ER 25 tablet 0 omeprazole (PRILOSEC) 20 MG capsule Take 20 mg by mouth every morning before breakfast. potassium chloride SA (K-DUR,KLOR-CON) 20 MEQ tablet TAKE 1 TABLET BY MOUTH DAILY 90 t ablet 2 pravastatin (PRAVACHOL) 80 MG tablet Take 80 mg by mouth nightly. Respiratory Therapy Supplies (NEBULIZER COMPRESSOR) KIT by Does not apply route as need ed. torsemide (DEMADEX) 20 MG tablet Take 2 tablets by mouth daily. 360 tablet 3 torsemide (DEMADEX) 20 MG tablet TAKE 2 TABLETS BY MOUTH 2 TIMES DAILY NEEDED. 360 tablet 2 warfarin (COUMADIN) 10 MG tablet Take 10 mg by mouth daily. Sliding scale, Brenda regulates tiotropium (SPIRIVA) 18 MCG inhalation capsule Inhale 1 capsule into the lungs daily. 9 0 capsule 3 No facility-administered encounter medications on file as of 09/12/2018. Allergies Allergies Allergen Reactions Sulfa Antibiotics Hives Metoprolol Swelling Lips swell REVIEW OF SYSTEMS: Constitutional: negative for fatigue. Lost 10 pounds. HEENT: Negative for nosebleeds, ear discharge, nasal congestion or soar throat. Eyes: Negative for visual disturbance, redness, or secretion. Respiratory: Negative for cough, sputum production, hemoptysis, wheezing. Cardiovascular: As HPI. Gastrointestinal: Negative for nausea, vomiting, diarrhea, abdominal pain and blood in stoo l. Genitourinary: Negative for dysuria or hematuria. Musculoskeletal: Positive for back pain and knee pain. Skin: Negative for rash. Neurological: Negative for dizziness. No numbness. No recent falls. No slurred speech. Hematological: No significant bruising. Psychiatric/Behavioral: No depression or anxiety. PHYSICAL EXAM Vital Signs: BP 118/58 (BP Location: Right upper arm, Patient Position: Sitting) | Pulse 60 | Ht 1.854 m (6' 1") | Wt 109.3 kg (241 lb) | SpO2 96% | BMI 31.80 kg/m GENERAL APPEARANCE: Alert, oriented, cooperative, no distress, appears stated age. HEENT: Extraocular movements were intact. No jaundice. Pupiles round and reactive. NECK: No JVD, lymphadenopathy. Carotid upstrokes normal. No carotid bruit heard. CARDIAC: Regular rhythm and rate. Mechanical S1S2. CHEST: Normal bilateral symmetrical chest excursion.ackles or wheezing. No evidence of dull ness. ABDOMEN: Soft.No tenderness or guarding. No palpable organs. Active bowel sounds. EXTREMITIES: Wearing pressure stocking. NEURO: Alert and oriented times three with [...] . magnesium 2.0, AST 56, ALT 37, 07/15/2017 Sodium 136, potassium 4.3, chloride 97, Balta dioxide 26, BUN 33, creatinine 1.29, GFR 53 , calcium 9.6, AST 27, PLT 22. WBC 16.7, hemoglobin 13.3, platelets 202. 08/19/2016 WBC 8.5, hemoglobin 14.0, platelets 187. Sodium 137, potassium 4.5, chloride 99, bicarbonat e 27, BUN 31, creatinine 1.55, GFR 43. AST 28, AST 21, alk phos 56, hemoglobin A1c 6.7, TSH 0.33. BNP 87. MVR 1995, [employer] 31 mm valve (RHD/MS), AVR 2013, On-X (RHD/). Hx PCI/stent: 2004, Ramus (2.5*12mm Taxus SHIRLEY), LCx (3.5*16mm Taxus SHIRLEY). Hx Pacemaker/ICD: 08/30/2007, Guidant Insignia 1291, SN: [id number]. Last interrogated 12/26/2017. Longevity/voltage: 1.5 years RVp: 94%. Events: 1 VT events, most recent on for 6 seconds. Last Cath, 03/09/2014: RA: 80/13 mean 16mmHg, RV: 71/19, PAP: 69/34, PCWP: 32 LVEDP: 21, AoV: P-P 46, mean 40mmHg, CO(F): 4.4, CO(Th): 5.0, JULIAN(F): 0.7, JULIAN(Th): 0.9cm2 Cor: left main OK, LAD OK, ramus 20% in-stent restenosis, LCx OK, 10% distal RCA, PDA OK. Last Echo, 12/20/2016 Normal LV size, mild left ventricular hypertrophy, normal systolic function EF 55-60%. Severely enlarged RV with mild impaired systolic function. Normal functioning mechanical pl euritic and mitral valve with acceptable gradient. 05/06/2014: AVR stable mild AI, peak/mean gradients 22/13mmHg, MVR stabble, mean gradient 6mmHg, modera te concetric LVH, LVEF 47%, severe LAE, moderate ELTON, RVE, mild TR, trace PI, est systolic P AP 35-40mmHg, pacing catheter in RV. Last stress test, Adenosine Cardiolite, 07/07/2010: Fixed apical defect, no reversible ischemia, LV enlarged, LVEF 46% ECG, 09/12/2018 Ordered and reviewed by myself showed atrial fibrillation with ventricular paced rhythm and premature ventricular contraction. ASSESSMENT: Patient is a pleasant 83 y.o. male with the following medical problems: 1. 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 No signs of congestive heart failure. Coumadin has been therapeutic. 2. Influenza A, recovered. 3. CAD S/P PCI to Ramus and LCX in 2004. 4. Obesity. BMI 31.8. 5. Chronic Atrial fibrillation, valvular CHADSVASc score of 4. On anticoagulation with warf mg. 6. Cardiomyopathy, mixed valvular and ischemic. No signs of volume overload. 7. History of pacemaker implant. Normal function on last interrogation. 8. Chronic kidney disease stage III. Plan: Patient continued to be stable at this time. Happy with the weight loss. Needs pacemaker interrogation. No recent change in medications. 1. Continue with Lisinopril and Carvedilol. Continue with monitoring blood pressure. 2. Continue with anticoagulation. 3. Continue Statin and ASA. 4. Follow up in 6 months or earlier if needed. Discussed with patient walking, weight loss and diet modification. *This report has been prepared using a voice recognition system. The report was reviewed fo r accuracy, however, sound-alike word errors, addition and/or deletions may occur. If there is any question about this report please contact me. Elif Weinstein MD, MPHin this encounter Plan of Treatment +--------+ + + + + | Date | Type | Specialty | Care Team | Description | +--------+ + + + + | 11/27/ | Documentati | Cardiology | | | | 2019 | on Only | | | | +--------+ + + + + | 04/03/ | Office | Cardiology | Elif Weinstein, | | | 2018 | Visit | | MD Asad [facility] | | | | | | Dr [address], | | | | | | [place] [address] | | | | | | [phone] | | | | | | | | +--------+ + + + + as of this encounter Procedures + +--------+ [...] whether | | | | | | shinnecock or | | | | | | transplanted heart | | | | | | Essential | | | | | | hypertension | | + +--------+ + + + in this encounter Results EKG STANDARD 12 LEAD (09/12/2018 9:03 [...] + + + + | Calculated R [place] | -85 | degrees | [facility] EKG | + + + + + | Calculated T [place] | 89 | degrees | [facility] EKG | + + + + + | Diagnosis | Sinus tachycardia with | | [facility] EKG | | | complete heart block [...] | | | | | by [facility] [place] Read Only, | | | | | ICA [place] ([id number]), | | | | | subeditor Augustine Samuel | | | | | ([id number]) on 09/12/2018 | | | | | 9:15:01 AM | | | + + + + + + + + + + | Performing | Address | City/State/Zipcode | Phone Number | | Organization | | | | + + + + + | [facility] | [address] | [place] [address] | | + + + + + in this encounter Visit Diagnoses + + | Diagnosis | + + | Coronary artery disease, angina presence unspecified, unspecified vessel or lesion | | type, unspecified whether shinnecock or transplanted heart - Primary | + + | Essential hypertension | + + | Unspecified essential hypertension | + + | S/P MVR (mitral valve replacement) | + + | Heart valve replaced by other means | + + | S/P AVR (aortic valve replacement) | + + | Heart valve replaced by other means | + + | MARY treated with BiPAP | + + | Cardiac pacemaker in situ | + + | Mixed hyperlipidemia | + +
--- OUTSIDE RECORDS SUMMARY | ~2018-10-20 | XMS | Encounter Summary ---
Demographics + + + | Address | [address] | | | [place] [address] | + + + | Home Phone | | + + + | Preferred Language | Unknown | + + + | Marital Status | | + + + | Gnosticist Affiliation | 1013 | + + + | Race | Unknown | + + + | Ethnic Group | Unknown | + + + Author + + + | Author | [facility] [employer] | + + + | Organization | [facility] | + + + | Address | Unknown | + + + | Phone | Unavailable | + + + Support + + +---------+ + | Name | Relationship | Address | Phone | + + +---------+ + | Juana Gasca | ECON | Unknown | | + + +---------+ + Care Team Providers + +------+ + | Care Meteorological Equipment Repairer Name | Role | Phone [...] + | 10/13/ | Refill | [facility] [place] | Elif Hylton, | Medication Refill | | 2019 | | [facility] | [address] | | | | | [address] | [address], | | | | | [place] [address] | [place] [address] | | | | | [place] [address] | [phone] | | | | | [phone] | | | +--------+--------+ + + + [...] Documentati | Cardiology | | | | 2018 | on Only | | | | +--------+ + + + + | 04/03/ | Office | Cardiology | Elif Hylton, | | | 2018 | Visit | | MD Asad Simpson | | | | | | Dr [address], | | | | | | [place] [address] | | | | | | [phone] | | | | | | | | +--------+ + + + + as of this encounter Visit Diagnoses Not on filein this encounter"
--- OUTSIDE RECORDS SUMMARY | ~2018-10-20 | XMS | Encounter Summary ---
Demographics + + + | Address | [address] | | | [place] [address] | + + + | Home Phone | | + + + | Preferred Language | Unknown | + + + | Marital Status | | + + + | Mormon Affiliation | 1013 | + + + | Race | Unknown | + + + | Ethnic Group | Unknown | + + + Author + + + | Author | [facility] [employer] | + + + | Organization | [facility] | + + + | Address | Unknown | + + + | Phone | Unavailable | + + + Support + + +---------+ + | Name | Relationship | Address | Phone | + + +---------+ + | Juana Gasca | ECON | Unknown | | + + +---------+ + Care Team Providers + +------+ + | Care Clinical Academic Allergist Name | Role | Phone | + [...] + | 10/13/ | Refill | [facility] [place] | Elif Hylton, | Medication Refill | | 2019 | | [facility] | [address] | | | | | [address] | [address], | | | | | [place] [address] | [place] [address] | | | | | [place] [address] | [phone] | | | | | [phone] | | | +--------+--------+ + + + [...] | | | | | [place] [address] | | | | | | [phone] | | | | | | | | +--------+ + + + + as of this encounter Visit Diagnoses Not on filein this encounter"
--- OUTSIDE RECORDS SUMMARY | ~2018-10-20 | XMS | Encounter Summary ---
Demographics + + + | Address | [address] | | | [place] [address] | + + + | Home Phone | | + + + | Preferred Language | Unknown | + + + | Marital Status | | + + + | Baptism Affiliation | 1013 | + + + | Race | Unknown | + + + | Ethnic Group | Unknown | + + + Author + + + | Author | [facility] | + + + | Organization | [facility] | + + + | Address | Unknown | + + + | Phone | Unavailable | + + + Support + + +---------+ + | Name | Relationship | Address | Phone | + + +---------+ + | Juana Gasca | ECON | Unknown | | + + +---------+ + Care Team Providers + +------+ + | Care Medical Record Librarians Teacher Name | Role | Phone | + +------+ + | Tiom Lorenzana MD | PCP | | + +------+ + Reason for Visit + + + | Reason | Comments | + + + | Medication Refill | | + + + Encounter Details +--------+--------+ + + + | Date | Type | Department | Care Team | Description | +--------+--------+ + + + | 10/13/ | Refill | RAUDEL Brashear | Kartik Elam | Medication Refill | | 2019 | | Cardiology Jacklyn Muniz MD [address] | | | | | [address] | [place] | | | | | [place], [place] | [place] [address] | | | | | [address] | [phone] | | | | | [phone] | | | +--------+--------+ + + + [...] | | | | | [place] [address] | | | | | | [phone] | | | | | | | | +--------+ + + + + as of this encounter Visit Diagnoses + + | Diagnosis | + + | Chronic atrial fibrillation (HCC) | + + | Atrial fibrillation | + +"
--- OUTSIDE RECORDS SUMMARY | ~2018-10-20 | XMS | Encounter Summary ---
Demographics + + + | Address | [address] | | | [place] [address] | + + + | Home Phone | | + + + | Preferred Language | Unknown | + + + | Marital Status | | + + + | Moravian Affiliation | 1013 | + + + | Race | Unknown | + + + | Ethnic Group | Unknown | + + + Author + + + | Author | [facility] | + + + | Organization | [facility] | + + + | Address | Unknown | + + + | Phone | Unavailable | + + + Support + + +---------+ + | Name | Relationship | Address | Phone | + + +---------+ + | Juana Gasca | ECON | Unknown | | + + +---------+ + Care Team Providers + +------+ + | Care Wire Straightener Name | Role | Phone | + [...] Description | +--------+--------+ + + + | 08/06/ | Refill | RAUDEL Saranac | Kartik Elam | Medication Refill | | 2019 | | Cardiology Jacklyn Muniz MD [address] | | | | | [address] | [place] | | | | | [place], [place] | [place] [address] | | | | | [address] | [phone] | | | | | [phone] | | | +--------+--------+ + + + [...] | | | | | [place] [address] | | | | | | [phone] | | | | | | | | +--------+ + + + + as of this encounter Visit Diagnoses Not on filein this encounter"
--- OUTSIDE RECORDS SUMMARY | ~2018-10-20 | XMS | Clinical Summary ---
Demographics + + + | Address | [address] | | | [place] [address] | + + + | Home Phone | | + + + | Preferred Language | Unknown | + + + | Marital Status | | + + + | Mormonism Affiliation | 1013 | + + + | Race | Unknown | + + + | Ethnic Group | Unknown | + + + Author + + + | Author | [facility] | + + + | Organization | [facility] [employer] [facility] | + + + | Address | Unknown | + + + | Phone | Unavailable | + + + Support + + +---------+ + | Name | Relationship | Address | Phone | + + +---------+ + | Juana Ventura | ECON | Unknown | | + + +---------+ + Care Team Providers + +------+ + | Care Liaison Planner Name | Role | Phone | [...] | implanted 08/30/2007, Maris Shaffer 1291, SN: [id number] | | interrogation 04/16/2015: battery "good", 3+years, [...] 08/30/2007, Guidant Insignia 1291, SN: | | [id number] Cath, 03/09/2014: RA: 80/13 mean 16mmHg, RV: [...] whether | | | | | | [place] or | | | | | | [...] | | | | | [place] [address] | | | | | | [phone] | | | | | | | [...] | 2018 | 5 / | | [id number]: Qty: 1 on | | | | [...] | 2018 | 5 / | | [id number]: Qty: 1 on | | | | [...] | | 2018 | -23 | | [id number]: Qty: 1 on | | | | | | /[id number] | | 03/10/2014 by Caro, | | | | | | 02 / | | MD Timothy | | | | | | | + +------+-------+ +--------+--------+--------+ | Pacing Wire Dual | | N/A: | [facility] | | 09/02/ | 030-00 | | 030-005 - | | Heart | | | 2018 | 5 / | | [id number]: Qty: 1 on | | | | [...] whether | | | | | | [place] or | | | | | | [...] + + + + | Calculated R [place] | -85 | degrees | [facility] E[facility] | + + + + + | Calculated T [place] | 89 | degrees | [facility] | + + + + + | Diagnosis | Sinus tachycardia with | | [facility] | | | complete heart block [...] | | | | | by [facility] [place] Read Only, | | | | | [facility] [address] ([id number]), | | | | | society editor Augustine Saumel | | | | | ([phone]) on 09/12/2018 | | | | | 9:15:01 AM | | | + + + + + + + + + + | Performing | Address | City/State/Zipcode | Phone Number | | Organization | | | | + + + + + | [facility] | [address] | [place] [address] | | + + + + + [...] [place] | [place] - | [phone] | Medica | [phone]- | [address] [address] [place] | | HEALTHCARE | [place] | | re | [address] | [place] [address] | | | | | | | [...] | odalis | | | [phone] | [address] | + +--------+ +--------+ + +
--- OUTSIDE RECORDS SUMMARY | ~2018-10-20 | XMS | Encounter Summary ---
Demographics + + + | Address | [address] | | | [place] [address] | + + + | Home Phone | | + + + | Preferred Language | Unknown | + + + | Marital Status | | + + + | Nondenominational Affiliation | 1013 | + + + | Race | Unknown | + + + | Ethnic Group | Unknown | + + + Author + + + | Author | [facility] | + + + | Organization | [facility] | + + + | Address | Unknown | + + + | Phone | Unavailable | + + + Support + + +---------+ + | Name | Relationship | Address | Phone | + + +---------+ + | Juana Gasca | ECON | Unknown | | + + +---------+ + Care Team Providers + +------+ + | Care Rn Pediatric Icu Name | Role | Phone | + [...] Office | RAUDEL De Guzman | Elif [place], | Coronary artery | | 2019 | Visit | Cardiology [facility] | [address] | disease, angina | | | | [address] | [address]berto [address] [place], | presence | | | | Way [address] | [place] [address] | unspecified, | | | | [place] [address] | [phone] | unspecified vessel | | | | [phone] | | or lesion type, | | | | | | unspecified whether | | | | | | [facility] [place] or | | | | | | [...] a wireless scale that is managed by [employer]. Wears pressure socks for lower ext edema [...] 2 (two) times daily. 180 each 3 Sbsdrrqilqq-Hhtkpmssi-Aps C-Mn (GLUCOSAMINE 1500 COMPLEX PO) Take 3,000 [...] 10 mg by mouth daily. Sliding scale, [place] regulates tiotropium (SPIRIVA) 18 MCG inhalation capsule [...] Hx Pacemaker/ICD: 08/30/2007, Guidant Insignia 1291, SN: [id number]. Last interrogated 12/26/2017. Longevity/voltage: 1.5 years RVp: [...] | | | | | [place] [address] | | | | | | [phone] | | | | | | | [...] whether | | | | | | [facility] [place] [place] or | | | | | | [...] + + + + | Calculated R [place] | -85 | degrees | [facility] E[facility] | + + + + + | Calculated T [place] | 89 | degrees | [facility] EKG [...] | | | | | by [facility] [place] Read Only, | | | | | [facility] [place] ([id number]), | | | | | newspaper editor managing Augustine Samuel | | | | | ([phone]) on 09/12/2018 | | | | | 9:15:01 AM | | | + + + + + + + + + + | Performing | Address | City/State/Zipcode | Phone Number | | Organization | | | | + + + + + | [facility] | [address] | [place] [address] | | + + + + + in this encounter Visit Diagnoses + + | Diagnosis | + + | Coronary artery disease, angina presence unspecified, unspecified vessel or lesion | | type, unspecified whether [facility] [place] or transplanted heart - Primary | + [...]
--- OUTSIDE RECORDS SUMMARY | ~2018-10-20 | XMS | Encounter Summary ---
Demographics + + + | Address | [address] | | | [place] [address] | + + + | Home Phone | | + + + | Preferred Language | Unknown | + + + | Marital Status | | + + + | Congregational Affiliation | 1013 | + + + | Race | Unknown | + + + | Ethnic Group | Unknown | + + + Author + + + | Author | [facility]pol PASSN[facility] | + + + | Organization | [facility] [employer] [facility] | + + + | Address | Unknown | + + + | Phone | Unavailable | + + + Support + + +---------+ + | Name | Relationship | Address | Phone | + + +---------+ + | Juana Gasca | ECON | Unknown | | + + +---------+ + Care Team Providers + +------+ + | Care Link Machine Operator Name | Role | Phone | + +------+ + | Timo Lorenzana MD | PCP | | + +------+ + Reason for Visit +--------+ + | Reason | Comments | +--------+ + | Other | [facility] | +--------+ + Encounter Details +--------+ + + + + | Date | Type | Department | Care Team | Description | +--------+ + + + + | 09/13/ | Tennille | RAUDEL De Guzman | Rosita Donaldson | Other ([facility] | | 2019 | on Only | Cardiology [facility] | Louise, SENIOR SYSTEMS ADMINISTRATOR | records) | | | | [address] | | | | | | [address] | | | | | | [place] [address] | | | | | | [phone] | | | +--------+ + + + [...] | | | | | [place] [address] | | | | | | [phone] | | | | | | | | +--------+ + + + + as of this encounter Visit Diagnoses Not on filein this encounter"
--- OUTSIDE RECORDS SUMMARY | ~2018-10-20 | XMS | Encounter Summary ---
Demographics + + + | Address | [address] | | | [place] [address] | + + + | Home Phone | | + + + | Preferred Language | Unknown | + + + | Marital Status | | + + + | Orthodox Affiliation | 1013 | + + + | Race | Unknown | + + + | Ethnic Group | Unknown | + + + Author + + + | Author | [employer] [employer] | + + + | Organization | [facility] [employer] [facility] | + + + | Address | Unknown | + + + | Phone | Unavailable | + + + Support + + +---------+ + | Name | Relationship | Address | Phone | + + +---------+ + | Juana Gasca | ECON | Unknown | | + + +---------+ + Care Team Providers + +------+ + | Care Validation Software Facilitator Name | Role | Phone | + [...] on Only | Cardiology [facility] | Louise, LATHE OPERATOR CONTACT LENS | records) | | | | [address] | | | | | | [address] | | | | | | [place] [address] | | | | | | [phone] | | | +--------+ + + + [...] | | | | | [place] [address] | | | | | | [phone] | | | | | | | | +--------+ + + + + as of this encounter Visit Diagnoses Not on filein this encounter"
--- OUTSIDE RECORDS SUMMARY | ~2018-10-20 | XMS | Encounter Summary ---
Demographics + + + | Address | [address] | | | [place] [address] | + + + | Home Phone | | + + + | Preferred Language | Unknown | + + + | Marital Status | | + + + | Rastafarian Affiliation | 1013 | + + + | Race | Unknown | + + + | Ethnic Group | Unknown | + + + Author + + + | Author | [facility] | + + + | Organization | [facility] | + + + | Address | Unknown | + + + | Phone | Unavailable | + + + Support + + +---------+ + | Name | Relationship | Address | Phone | + + +---------+ + | Juana Gasca | ECON | Unknown | | + + +---------+ + Care Team Providers + +------+ + | Care Tube Closing Machine Operator Name | Role | Phone | + +------+ + | Timo Lorenzana MD | PCP | | + +------+ + Reason for Visit +--------+ + | Reason | Comments | +--------+ + | Other | Faxed advair prescription to [facility] | +--------+ + Encounter Details +--------+ + + + + | Date | Type | Department | Care Team | Description | +--------+ + + + + | 09/10/ | Documentati | [facility] | Tera Izquierdo, | Other (Faxed advair | | 2019 | on Only | Pulmonology [address] | [place] | prescription to | | | | [address] | | [facility]) | | | | [place], [place] | | | | | | [address] | | | | | | [phone] | | | +--------+ + + + [...] + + + as of this encounter Progress Tera Ramires [place] - 09/10/2018 2:46 PM PDTFaxed advair prescription to [facility]. Pernell alonso received. in this encounter Plan of Treatment +--------+ [...] | | | | | [place] [address] | | | | | | [phone] | | | | | | | | +--------+ + + + + as of this encounter Visit Diagnoses Not on filein this encounter"
--- OUTSIDE RECORDS SUMMARY | ~2018-10-20 | XMS | Encounter Summary ---
Demographics + + + | Address | [address] | | | [place] [address] | + + + | Home Phone | | + + + | Preferred Language | Unknown | + + + | Marital Status | | + + + | Sikhism Affiliation | 1013 | + + + | Race | Unknown | + + + | Ethnic Group | Unknown | + + + Author + + + | Author | [employer] | + + + | Organization | [facility] [employer] [facility] | + + + | Address | Unknown | + + + | Phone | Unavailable | + + + Support + + +---------+ + | Name | Relationship | Address | Phone | + + +---------+ + | Juana Gasca | ECON | Unknown | | + + +---------+ + Care Team Providers + +------+ + | Care Cloud Operations Engineer Name | Role | Phone | [...] + + | 09/10/ | Documentati | [facility] | Tera Izquierdo, | Other (Faxed advair | | 2019 | on Only | Pulmonology [address] | [place] | prescription to | | | | [address] | | [facility]) | | | | [place], [place] | | | | | | [address] | | | | | | [phone] | | | +--------+ + + + [...] | | | | | [place] [address] | | | | | | [phone] | | | | | | | | +--------+ + + + + as of this encounter Visit Diagnoses Not on filein this encounter"
--- OUTSIDE RECORDS SUMMARY | ~2018-10-20 | XMS | Encounter Summary ---
Demographics + + + | Address | [address] | | | [place] [address] | + + + | Home Phone | | + + + | Preferred Language | Unknown | + + + | Marital Status | | + + + | Lutheran Affiliation | 1013 | + + + | Race | Unknown | + + + | Ethnic Group | Unknown | + + + Author + + + | Author | [facility] | + + + | Organization | [facility] [employer] [facility] | + + + | Address | Unknown | + + + | Phone | Unavailable | + + + Support + + +---------+ + | Name | Relationship | Address | Phone | + + +---------+ + | Juana Gasca | ECON | Unknown | | + + +---------+ + Care Team Providers + +------+ + | Care Silo Painter Name | Role | Phone | + [...] + | 08/06/ | Refill | RAUDEL [place] | Kartik Elam | Medication Refill | | 2019 | | Cardiology Jacklyn Muniz MD [address] | | | | | [address] | [address] | | | | | [place], [place] | [place] [address] | | | | | [address] | [phone] | | | | | [phone] | | | +--------+--------+ + + + [...] | | | | | [place] [address] | | | | | | [phone] | | | | | | | | +--------+ + + + + as of this encounter Visit Diagnoses Not on filein this encounter"
[~2018-10-20 10:53] MED LIST changes: +LEVOFLOXACIN500 MG PO; +METFORMIN HCL850 MG PO; +TAMIFLU75 MG PO; +VIRTUSSIN AC L118 ML PO
--- OUTSIDE RECORDS SUMMARY | 2018-10-20 10:56 | XMS ---
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 Angel VISIT COUNT (12 MO.) 5 MORIAH Mccloud TOTAL 5 NOTE: Visits indicate total known visits. ED/UCC VISIT TRACKING (12 MO.) 10/20/2018 10:54 [facility] [place] TYPE: Emergency COMPLAINT: - URINE ISSUE 08/19/2018 11:36 [facility] [place] TYPE: Emergency COMPLAINT: - FLU SYMPTOMS 01/06/2018 08:01 [facility] [place] TYPE: Emergency COMPLAINT: - RASH/POSSIBLE ALLERGIC REACTION DIAGNOSES: - Allergy status to other drugs, medicaments and biological substances status - Allergy status to other antibiotic agents status - Adverse effect of sulfonamides, initial encounter - Generalized skin eruption due to drugs and medicaments taken internally - Other exterminator helper termite (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 - Rash and other nonspecific skin eruption - Olecranon bursitis, right elbow 12/30/2017 11:56 [facility] [place] TYPE: Emergency COMPLAINT: - LUMP ON R ELBOW/NO INJURY DIAGNOSES: - Chronic obstructive pulmonary disease, unspecified - [facility] (current) use of oral hypoglycemic drugs - Personal history of nicotine dependence - Olecranon bursitis, right elbow - exterminator helper termite (current) use of aspirin - exterminator helper termite (current) use of antibiotics - Allergy status to other drugs, medicaments and biological substances status - [facility] (CURRENT) USE OF ORAL HYPOGLYCEMIC DRUGS - Type 2 diabetes mellitus without complications - [facility] (current) use of anticoagulants 11/19/2017 00:17 [facility] [place] TYPE: Emergency COMPLAINT: - URINATION PROBLEM DIAGNOSES: - Type 2 diabetes mellitus without complications - Other exterminator helper termite (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 - Chronic obstructive pulmonary disease, unspecified - [facility] (current) use of anticoagulants - Urinary tract infection, site not specified - Dysuria - Allergy status to other drugs, medicaments and biological substances status INPATIENT VISIT TRACKING (12 MO.) 08/19/2018 11:37 [facility] [place] TYPE: Observation COMPLAINT: - COPD EXASPERATION DIAGNOSES: - Hypothyroidism, unspecified - Presence of coronary angioplasty implant and graft - Atherosclerotic heart disease of tribal coronary artery without angina pectoris - Hypertensive heart and chronic kidney disease with heart failure and stage 1 through stage 4 chronic kidney disease, or unspecified chronic kidney disease - [facility] (current) use of inhaled steroids - Hyperlipidemia, unspecified - Other exterminator helper termite (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 - Personal history of nicotine dependence - Chronic kidney disease, stage 3 (moderate) - Type 2 diabetes mellitus with diabetic chronic kidney disease - Shortness of breath - Chronic obstructive pulmonary disease with (acute) exacerbation - [facility] (current) use of anticoagulants - Gastro-esophageal reflux disease without esophagitis - Non-ST elevation (NSTEMI) myocardial infarction - Presence of prosthetic heart valve - Influenza due to other identified influenza virus with other respiratory manifestations - Allergy status to other drugs, medicaments and biological substances status - [facility] (current) use of oral hypoglycemic drugs - Unspecified atrial fibrillation - Chronic diastolic (congestive) heart failure - exterminator helper termite (current) use of aspirin - Presence of cardiac pacemaker - Allergy status to sulfonamides status [email or web address]
== END 2018-10-20 12:45 | disposition home or self-care (01) ==
LOC: ED 10:53
PROC: 0H9AX0Z Drainage of Inguinal Skin with Drainage Device, External Approach (ICD-10-PCS; principal; 2018-10-20)
DX: L72.3 Sebaceous cyst (principal); L02.214 Cutaneous abscess of groin; Z95.0 Presence of cardiac pacemaker; E11.9 Type 2 diabetes mellitus without complications; J44.9 Chronic obstructive pulmonary disease, unspecified; Z87.442 Personal history of urinary calculi; Z87.891 Personal history of nicotine dependence; Z95.5 Presence of coronary angioplasty implant and graft; Z88.1 Allergy status to other antibiotic agents; Z88.2 Allergy status to sulfonamides; Z88.8 Allergy status to other drugs, medicaments and biological substances; Z79.899 Other long term (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; Z79.01 Long term (current) use of anticoagulants; Z79.82 Long term (current) use of aspirin; Z79.84 Long term (current) use of oral hypoglycemic drugs
CPT/HCPCS: 10060; 99283-25

== ENCOUNTER 2019-06-03 21:26 | Emergency (ER) | payer MEDICARE ==
[~2019-06-03] VITALS: Ht 185.4 cm; Wt 108.2 kg
--- OUTSIDE RECORDS SUMMARY | ~2019-06-03 | XMS | Encounter Summary ---
Demographics + + + | Address | [address] | | | [place] [address] | + + + | Home Phone | | + + + | Preferred Language | Unknown | + + + | Marital Status | | + + + | Pentecostal Affiliation | 1013 | + + + | Race | Unknown | + + + | Ethnic Group | Unknown | + + + Author + + + | Author | [facility] | | | and [place] | + + + | Organization | [facility] | | | and [place] | + + + | Address | Unknown | + + + | Phone | Unavailable | + + + Support + + + + + | Name | Relationship | Address | Phone | + + + + + | Frances Gasca | ECON | NA | | | | | [place], [place] [address] | | + + + + + | Juana Gasca | ECON | [address] | | | | | [place] | | | | | [address] | | + + + + + | Juana Gasca | ECON | Unknown | | + + + + + Care Team Providers + +------+ + | Care Medical Clerical Assistant Name | Role | Phone | + +------+ + | Timo Lorenzana | PCP | | | MD | | | + +------+ + Encounter Details +--------+ + + + + | Date | Type | Department | Care Team | Description | +--------+ + + + + | 02/06/ | Hospital | [facility] | Conversion | Diagnosis unknown | | 2015 | Encounter | CONVERSION DEP [address] | Transaction, | | | | | [address] | Provider Unknown | | | | | [place], [place] | | | | | | [address] | (Fax) | | | | | [phone] | | | +--------+ + + + [...] on file | | + + + + + + + | Job Start Date | Occupation | Industry | + + + + | Not on file | Not on file | Not on file | + + + + + + + + | Travel History | Travel Start | Travel End | + + + + + + | No recent travel history available. | + + documented as of this encounter Medications at Time of Discharge + + + +---------+ + + | Medication | Sig | Dispensed | Refills | Start | End Date | | | | | | Date | | + + + +---------+ + + | levothyroxine | Take 150 mcg by | | 0 | 10/18/19 | | | (SYNTHROID, | mouth Daily. | | | 12 | | | LEVOTHROID) 150 mcg | | | | | | | tablet | | | | | | + + + +---------+ + + | lisinopril | Take 2.5 mg by mouth | | 0 | 02/17/20 | | | (PRINIVIL,ZESTRIL) | Daily. | | | 12 | | | 2.5 MG tablet | | | | | | + + + +---------+ + + | nitrofurantoin | Take 50 mg by mouth | | 0 | | | | (MACRODANTIN) 50 MG | nightly. | | | | | | capsule | | | | | | + + + +---------+ + + | Potassium Chloride | CR-TABS - 1 tablet | | 0 | 02/17/20 | | | Kaylene CR (KLOR-CON | by mouth twice daily | | | 12 | | | M20 PO) | | | | | | + + + +---------+ + + | pravastatin | Take 80 mg by mouth | | 0 | 02/17/20 | | | (PRAVACHOL) 80 MG | nightly. | | | 12 | | | tablet | | | | | | + + + +---------+ + + | warfarin | Take 7.5 mg by mouth | | 0 | 03/07/20 | | | (COUMADIN) 7.5 mg | Daily. Take 7.5mg | | | 12 | | | tablet | on Monday and | | | | | | | Monday. Take 10mg | | | | | | | all other days | | | | | + + + +---------+ + + | albuterol (PROAIR | Inhale 2 puffs into | 3 | 4 | 12/23/19 | | | HFA) 90 mcg/puff | the lungs every 4 | Inhaler | | 15 | 9 | | inhaler | hours as needed for | | | | | | | Shortness of Breath. | | | | | + + + +---------+ + + | albuterol 2.5 mg/3 | Take 3 mLs by | 270 | 3 | 07/31/19 | | | mL nebulizer | nebulization every 4 | vial | | 16 | 9 | | solution | hours as needed for | | | | | | | Wheezing or | | | | | | | Shortness of Breath. | | | | | | | J44.9 OKSANA: 12 | | | | | | | months | | | | | + + + +---------+ + + | aspirin (ASPIRIN | Take 81 mg by mouth | | 0 | 02/17/20 | | | LOW DOSE) 81 MG | Daily. | | | 12 | 9 | | tablet | | | | | | + + + +---------+ + + | carvedilol (COREG) | 1/2 tablet twice | | 0 | 03/07/20 | | | 3.125 mg tablet | daily | | | 12 | 9 | + + + +---------+ + + | CINNAMON PO | Take 1,000 mg by | | 0 | | | | | mouth 2 times daily. | | | | 9 | + + + +---------+ + + | | Inhale 1 puff into | 3 each | 3 | 03/30/20 | | | fluticasone-salmeter | the lungs Twice | | | 15 | 6 | | ol (ADVAIR DISKUS) | Daily. | | | | | | 100-50 mcg/puff | | | | | | | diskus inhaler | | | | | | + + + +---------+ + + | | Take 1,500 mg by | | 0 | | | | Glucosamine-Chondroi | mouth. Take 2 | | | | 9 | | t-Vit C-Mn | tablets every AM and | | | | | | (GLUCOSAMINE 1500 | 1 tablet every PM | | | | | | COMPLEX PO) | | | | | | + + + +---------+ + + | metFORMIN | Take 500 mg by mouth | | 0 | 02/17/20 | | | (GLUCOPHAGE) 500 mg | 2 times daily. | | | 12 | 9 | | tablet | | | | | | + + + +---------+ + + | Multiple | Take one by mouth | | 0 | 03/07/20 | | | Vitamins-Minerals | daily | | | 12 | 9 | | (EQL CENTRAL-ROSAMARIA) | | | | | | | TABS | | | | | | + + + +---------+ + + | nitroglycerin | place 1 tablet under | | 0 | 09/07/19 | | | (NITROSTAT) 0.4 mg | the tongue every 5 | | | 14 | 9 | | SL tablet | minutes if needed | | | | | | | for chest pain may | | | | | | | repeat 3 TIMES THEN | | | | | | | GO TO ER | | | | | + + + +---------+ + + | nitroglycerin | Use as directed as | | 0 | 02/17/20 | | | (NITROSTAT) 0.4 mg | needed | | | 12 | 9 | | SL tablet | | | | | | + + + +---------+ + + | omeprazole | Take 20 mg by mouth | | 0 | 03/07/20 | | | (PRILOSEC OTC) 20 mg | Daily. | | | 12 | 9 | | tablet | | | | | | + + + +---------+ + + | tiotropium | Inhale contents of | 90 | 3 | 04/13/20 | | | (SPIRIVA HANDIHALER) | one capsule once | capsule | | 15 | 9 | | 18 mcg inhalation | daily (do not | | | | | | capsule | swallow capsules) | | | | | + + + +---------+ + + | torsemide | Take 40 mg by mouth | | 0 | | | | (DEMADEX) 20 mg | 2 times daily. | | | | 9 | | tablet | | | | | | + + + +---------+ + + documented as of this encounter Plan of Treatment +--------+---------+ + + + | Date | Type | Specialty | Care Team | Description | +--------+---------+ + + + | 10/22/ | Office | Cardiology | Elif Hylton, | | | 2019 | Visit | | MD Asad FIELDS | | | | | | [place] | | | | | | [address] | | | | | | | | +--------+---------+ + + + documented as of this encounter Procedures + +--------+ + + + | Procedure Name | Priori | Date/Time | Associated Diagnosis | Comments | | | ty | | | | + +--------+ + + + | CT CHEST WO CONTRAST | Routin | 04/07/2015 | | Results for this | | | e | 8:49 AM | | procedure are in the | | | | PST | | results section. | + +--------+ + + + documented in this encounter Results CT Chest wo Contrast (04/07/2015 8:49 AM PST) + + | Specimen | + + | | + + + + + | Narrative | Performed At | + + + | This is a non-reportable procedure without a radiologist report and | | | is used for image storage only | | + + + + + | Procedure Note | + + | Pal, Rad Conversion - 01/17/2019 10:29 AM PDT This is a non-reportable procedure | | without a radiologist report and isused for image storage only | + + documented in this encounter Visit Diagnoses + + | Diagnosis | + + | Diagnosis unknown Other unknown and unspecified cause of morbidity or mortality | + + documented in this encounter"
--- OUTSIDE RECORDS SUMMARY | ~2019-06-03 | XMS | Encounter Summary ---
Demographics + + + | Address | [address] | | | [place] [address] | + + + | Home Phone | | + + + | Preferred Language | Unknown | + + + | Marital Status | | + + + | Mandaen Affiliation | 1013 | + + + | Race | Unknown | + + + | Ethnic Group | Unknown | + + + Author + + + | Author | [facility] | | | and [place] | + + + | Organization | [facility] | | | [...] | | | | [place], [place] [address] | | + + + + + | Juana Gasca | ECON | [address] | | | | | [place] | | | | | [address] | | + + + + + | Juana Gasca | ECON | Unknown | | + + + + + Care Team Providers + +------+ + | Care Motor Driver Name | Role | Phone | + [...] Description | +--------+--------+ + + + | 02/04/ | Refill | [facility] [place] | Abhinav, | Medication Refill | | 2013 | | PULMONARY [address] | [place] You MD | | | | | [place], | | | | | | [place] [address] | | | | | | [phone] | | | +--------+--------+ + + + [...] [place] | | | | | | [address] | | | | | | | | +--------+---------+ + + + documented as of this encounter Visit Diagnoses Not on filedocumented in this encounter"
--- OUTSIDE RECORDS SUMMARY | ~2019-06-03 | XMS | Clinical Summary ---
Demographics + + + | Address | [address] | | | [place] [address] | + + + | Home Phone | | + + + | Preferred Language | Unknown | + + + | Marital Status | | + + + | Voodoo Affiliation | 1013 | + + + | Race | Unknown | + + + | Ethnic Group | Unknown | + + + Author + + + | Author | [email or web address] (Historical as of | | | 01-19-19) | + + + | Organization | [email or web address] (Historical as of | | | 01-19-19) | + + + | Address | Unknown | + + + | Phone | Unavailable | + + + Support + + +---------+ + | Name | Relationship | Address | Phone | + + +---------+ + | Juana Gasca ECON | Unknown | | + + +---------+ + Care Team Providers + +------+ + | Care Professor Of Sport Management Name | Role | Phone | + +------+ + | Timo Lorenzana MD | PP | | + +------+ + Allergies + + + + + + | Active Allergy | Reactions | Severity | Noted | Comments | | | | | Date | | + + + + + + | Metoprolol | Swelling | Medium | 08/16/19 | Lips swell | | | | | 14 | | + + + + + + | Sulfa Antibiotics | Hives | High | 02/10/20 | | | | | | 18 | | + + + + + + Current Medications + + +---------+---------+------+------+-------+ | Prescription | Sig. | Disp. | Refills | Star | End | Statu | | | | | | t | Date | s | | | | | | Date | | | + + +---------+---------+------+------+-------+ | levothyroxine | Take 150 mcg by | | | | | Activ | | (SYNTHROID, | mouth every morning | | | | | e | | LEVOTHROID) 150 MCG | before breakfast. | | | | | | | tablet | | | | | | | + + +---------+---------+------+------+-------+ | warfarin | Take 10 mg by mouth | | | | | Activ | | (COUMADIN) 10 MG | daily. Sliding | | | | | e | | tablet | [facility] | | | | | | | | regulates | | | | | | + + +---------+---------+------+------+-------+ | pravastatin | Take 80 mg by mouth | | | | | Activ | | (PRAVACHOL) 80 MG | nightly. | | | | | e | | tablet | | | | | | | + + +---------+---------+------+------+-------+ | omeprazole | Take 20 mg by mouth | | | | | Activ | | (PRILOSEC) 20 MG | every morning before | | | | | e | | capsule | breakfast. | | | | | | + + +---------+---------+------+------+-------+ | aspirin 81 MG EC | Take 81 mg by mouth | | | | | Activ | | tablet | daily with | | | | | e | | | breakfast. | | | | | | + + +---------+---------+------+------+-------+ | Multiple | Take by mouth | | | | | Activ | | Vitamins-Minerals | daily. | | | | | e | | (EQL CENTRAL-ROSAMARIA | | | | | | | | SELECT PO) | | | | | | | + + +---------+---------+------+------+-------+ | | Take 3,000 mg by | | | | | Activ | | Glucosamine-Chondroi | mouth daily. | | | | | e | | t-Vit C-Mn | | | | | | | | (GLUCOSAMINE 1500 | | | | | | | | COMPLEX PO) | | | | | | | + + +---------+---------+------+------+-------+ | albuterol | Inhale 2 puffs into | | | | | Activ | | (VENTOLIN HFA) 108 | the lungs every 4 | | | | | e | | (90 BASE) MCG/ACT | (four) hours as | | | | | | | inhaler | needed. | | | | | | + + +---------+---------+------+------+-------+ | Respiratory | by Does not apply | | | | | Activ | | Therapy Supplies | route as needed. | | | | | e | | (NEBULIZER | | | | | | | | COMPRESSOR) KIT | | | | | | | + + +---------+---------+------+------+-------+ | NITROSTAT 0.4 MG | place 1 tablet under | 25 | 0 | 04/0 | | Activ | | SL tablet | the tongue every 5 | tablet | | 4/20 | | e | | | minutes if needed | | | 14 | | | | | for chest pain may | | | | | | | | repeat 3 TIMES THEN | | | | | | | | GO TO ER | | | | | | + + +---------+---------+------+------+-------+ | nitrofurantoin | Take 50 mg by mouth | | | | | Activ | | (MACRODANTIN) 50 MG | nightly. | | | | | e | | capsule | | | | | | | + + +---------+---------+------+------+-------+ | CINNAMON PO | Take 1,000 mg by | | | | | Activ | | | mouth daily. | | | | | e | + + +---------+---------+------+------+-------+ | cyanocobalamin | Take 1,000 mcg by | | | | | Activ | | (VITAMIN B-12) 1000 | mouth daily. | | | | | e | | MCG tablet | | | | | | | + + +---------+---------+------+------+-------+ | tiotropium | Inhale 1 capsule | 90 | 3 | 10/0 | | Activ | | (SPIRIVA) 18 MCG | into the lungs | capsule | | 6/20 | | e | | inhalation | daily. | | | 16 | | | | capsuleIndications: | | | | | | | | Centrilobular | | | | | | | | emphysema (HCC) | | | | | | | + + +---------+---------+------+------+-------+ | metFORMIN | Take 850 mg by mouth | | | 02/0 | | Activ | | (GLUCOPHAGE) 500 MG | 3 (three) times | | | 8/20 | | e | | tablet | daily. | | | 17 | | | + + +---------+---------+------+------+-------+ | torsemide | Take 2 tablets by | 360 | 3 | 08/0 | | Activ | | (DEMADEX) 20 MG | mouth daily. | tablet | | 9/20 | | e | | tablet | | | | 17 | | | + + +---------+---------+------+------+-------+ | | Inhale 1 puff into | 180 | 3 | 03/2 | | Activ | | fluticasone-salmeter | the lungs 2 (two) | each | | 8/20 | | e | | ol (ADVAIR) 100-50 | times daily. | | | 18 | | | | MCG/DOSE diskus | | | | | | | | inhalerIndications: | | | | | | | | Chronic obstructive | | | | | | | | pulmonary disease, | | | | | | | | unspecified COPD | | | | | | | | type (HCC) | | | | | | | + + +---------+---------+------+------+-------+ | torsemide | TAKE 2 TABLETS BY | 360 | 2 | 06/0 | | Activ | | (DEMADEX) 20 MG | MOUTH 2 TIMES DAILY | tablet | | 4/20 | | e | | tablet | NEEDED. | | | 18 | | | + + +---------+---------+------+------+-------+ | lisinopril | TAKE 1 TABLET BY | 90 | 2 | 05/1 | | Activ | | (ZESTRIL) 2.5 MG | MOUTH DAILY | tablet | | 2/20 | | e | | tablet | | | | 19 | | | + + +---------+---------+------+------+-------+ | potassium chloride | TAKE 1 TABLET BY | 90 | 2 | 05/1 | | Activ | | SA TIFF PRICE) | MOUTH DAILY | tablet | | 2/20 | | e | | 20 MEQ tablet | | | | 19 | | | + + +---------+---------+------+------+-------+ | carvedilol (COREG) | Take 0.5 tablets by | 90 | 3 | 05/1 | | Activ | | 3.125 MG tablet | mouth 2 (two) times | tablet | | 3/20 | | e | | | daily. | | | 19 | | | + + +---------+---------+------+------+-------+ | torsemide | TAKE 2 TABLETS BY | 120 | 2 | 12/03 | | Activ | | (DEMADEX) 20 MG | MOUTH 2 TIMES DAILY | tablet | | 06/24 | | e | | tablet | NEEDED. | | | 19 | | | + + +---------+---------+------+------+-------+ Active Problems + + + | Problem | Noted Date | + + + | MARY treated with BiPAP | 08/05/2016 | + + + | Centrilobular emphysema (HCC) | 03/10/2016 | + + + | Hyperlipidemia | 07/17/2014 | + + + + + | Last Assessment & Plan: Hyperlipidemia, at goal, continue | | current meds at current dose (Pravastatin). Labs reviewed with | | patient.Lab, 05/14/2015: T Chol: 122, LDL-Chol: 62, HDL-Chol: 38, | | Tri Liver enzymes NML, K: 4.0, | | BUN/Cr: 30/1.3 (GFR 52), glu: 138 TSH: | | 0.411, HgbA1c: 6.8, WBC: 8.4, H/H: 13.5/41.7, plt: 173, ESR: 22, | | CRP: 8.5 | + + + + + | Rheumatic valvular disease | 04/03/2014 | + + + + + | Last Assessment & Plan: Hx MVR/AVR (RHD). Endocarditis | | prophylaxis reenforced. Anticoagulation managed by [facility] | | [facility].Hx CABG: no, but MVR 1995, CarboMedics 31 mm | | valve (MS), AVR 2013, On-X ().Last Echo, 05/06/2014: AVR stable | | mild AI, peak/mean gradients 22/13mmHg, MVR stabble, mean | | gradient 6mmHg, moderate concetric LVH, LVEF 47%, severe LAE, | | moderate ELTON, RVE, mild TR, trace PI, est systolic PAP 35-40mmHg, | | pacing catheter in RV. | + + + + + | S/P AVR (aortic valve replacement) | 03/28/2014 | + + + + + | Overview: Overview: | | 03/10/2014 at [facility] | + + + + + | S/P MVR (mitral valve replacement) | 03/28/2014 | + + + | Atrial fibrillation, chronic | 02/27/2014 | + + + + + | Last Assessment & Plan: Chronic A fib. Long and complex Hx, | | eventually, AV Claire ablation, pacemaker therapy. 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 Denies any new visual | | disturbances, dysarthria, dysphasia, lateralizing signs or | | symptoms. No significant bleeding or bruising.Pacemaker | | implanted 08/30/2007, Maris Shaffer 1291, SN: [id number].Last | | interrogation 04/16/2015: battery "good", 3+years, device stable, | | VVI-R (60/130), V-paced 99%. | + + + + + | Hypertension | 02/27/2014 | + + + + + | Last Assessment & Plan: HTN, controlled, continue current | | meds at current doses (carvedilol, lisinopril, torsemide). | + + + + + | Cardiac pacemaker in situ | 02/27/2014 | + + + | CAD (coronary artery disease) | 08/15/2013 | + + + + + | Last Assessment & Plan: 2V-CAD, Hx PCI/stent, LVEF 50%. | | 80yo WM, he continues to be modestly active, denying any | | chest discomfort, significant shortness breath, palpitations, or | | lightheadedness. Denies any new visual disturbances, dysarthria, | | dysphasia, lateralizing signs or symptoms. No significant | | bleeding or bruising. Labs reviewed with patient. Device | | stable. Tolerating medications. No changes in therapy. | | Endocarditis prophylaxis reenforced.Hx CABG: no, but MVR 1995, | | CarboMedics 31 mm valve (RHD/MS), AVR 2013, On-X (RHD/).Hx | | PCI/stent: 2004, Ramus (2.5*12mm Taxus SHIRLEY), LCx (3.5*16mm Taxus | | SHIRLEY).Hx Pacemaker/ICD: 08/30/2007, Guidant Savageia 1291, SN: | | [id number] Cath, 03/09/2014: RA: 80/13 mean 16mmHg, RV: 71/19, | | PAP: 69/34, PCWP: 32 LVEDP: | | 21, AoV: P-P 46, mean 40mmHg, CO(F): 4.4, CO(Th): 5.0, JULIAN(F): | | 0.7, JULIAN(Th): 0.9cm2 Cor: left | | main OK, LAD OK, ramus 20% in-stent restenosis, LCx OK, 10% | | distal RCA, PDA OK.Last Echo, 05/06/2014: AVR stable mild AI, | | peak/mean gradients 22/13mmHg, MVR stabble, mean gradient 6mmHg, | | moderate concetric LVH, LVEF 47%, severe LAE, moderate ELTON, RVE, | | mild TR, trace PI, est systolic PAP 35-40mmHg, pacing catheter in | | RV. Last stress test, Adenosine Cardiolite, 07/07/2010: fixed | | apical defect, no reversible ischemia, LV enlarged, LVEF 46%ECG, | | 07/16/2015: A fib, V-paced 100%. | + + Encounters +--------+---------+ + + + | Date | Type | Specialty | Care Team | Description | +--------+---------+ + + + | 03/11/ | Office | | Yuri Raymond | | | 2018 | Visit | | Rush Raymond MD | | +--------+---------+ + + + from Last 3 Months Immunizations + + + + | Name | Dates Previously Given | Next Due | + + + + | Influenza, PF | 02/01/2014, 02/03/2013, 04/18/2012 | | | Recombinant, | | | | Trivalent (Flublok) | | | + + + + | Pneumococcal | 05/01/2014, 03/01/2014 | | | Conjugate 13-valent | | | + + + + | Pneumococcal | 07/19/2009 | | | Polysaccharide | | | | 23-valent | | | + + + + Family History + + +------+ + | Medical History | Relation | Name | Comments | + + +------+ + | Heart disease | Father | | | + + +------+ + | Heart disease | Mother | | | + + +------+ + + +------+ + + | Relation | Name | Status | Comments | + +------+ + + | Father | | | heart disease-quad bypass | | | | (Age | | | | | 67) | | + +------+ + + | Mother | | | heart disease | | | | (Age | | | | | 83) | | + +------+ + + Social History + + + [...] on file | | + + + Last Filed Vital Signs + + + + | Vital Sign | Reading | Time Taken | + + + + | Blood Pressure | 118/58 | 09/12/2018 8:57 AM PDT | + + + + | Pulse | 60 | 09/12/2018 8:57 AM PDT | + + + + | Temperature | 36.3 C (97.3 F) | 02/09/2018 8:59 AM PDT | + + + + | Respiratory Rate | 17 | 07/16/2015 11:21 AM PST | + + + + | Oxygen Saturation | 96% | 09/12/2018 8:57 AM PDT | + + + + | Inhaled Oxygen | - | - | | Concentration | | | + + + + | Weight | 109.3 kg (241 lb) | 09/12/2018 8:57 AM PDT | + + + + | Height | 185.4 cm (6' 1") | 09/12/2018 8:57 AM PDT | + + + + | Body Mass Index | 31.8 | 09/12/2018 8:57 AM PDT | + + + + Plan of Treatment + + + + + | Health Maintenance | Due Date | Last Done | Comments | + + + + + | Vaccine: | | | | | Dtap/Tdap/Td (1 - | 5 | | | | Tdap) | | | | + + + + + | Vaccine: Zoster (1 | | | | | of 2) | 6 | | | + + + + + | Vaccine: Influenza | | 02/01/2014, 02/03/2013, | | | (#1) | 9 | 04/18/2012 | | + + + + + | Vaccine: | Completed | 05/01/2014, 03/01/2014, | | | Pneumococcal 65+ | | 07/19/2009 | | | Low/Medium Risk | | | | + + + + + Implants + +------+-------+ +--------+--------+--------+ | Implanted | Type | Area | Manufacture | Device | Expira | Model | | | | | r | | tion | / | | | | | | Identi | Date | Serial | | | | | | fier | | / Lot | + +------+-------+ +--------+--------+--------+ | Pacing Wire Dual | | N/A: | [employer] | | 10/02/ | 030-00 | | 030-005 - | | Heart | | | 2018 | 5 / | | [id number]: Qty: 1 on | | | | | | /166 | | 03/10/2014 by Caro, | | | | | | | | MD Timothy | | | | | | | + +------+-------+ +--------+--------+--------+ | Pacing Wire Dual | | N/A: | [employer] | | 10/02/ | 030-00 | | 030-005 - | | Heart | | | 2018 | 5 / | | [id number]: Qty: 1 on | | | | | | /166 | | 03/10/2014 by Caro, | | | | | | | | MD Timothy | | | | | | | + +------+-------+ +--------+--------+--------+ | Valve Aortic Mec 23mm | | N/A: | ON TRAXX | | 10/02/ | ONXACE | | Onxace-23 S/N - | | Heart | SOLUTIONS | | 2018 | -23 | | [id number]: Qty: 1 on | | | | | | /[id number] | | 03/10/2014 by Caro, | | | | | | 02 / | | MD Timothy | | | | | | | + +------+-------+ +--------+--------+--------+ | Pacing Wire Dual | | N/A: | [employer] | | 09/02/ | 030-00 | | 030-005 - | | Heart | | | 2019 | 5 / | | [id number]: Qty: 1 on | | | | | | /164 | | 03/10/2014 by Caro, | | | | | | | | MD Timothy | | | | | | | + +------+-------+ +--------+--------+--------+ Results Not on filefrom Last 3 Months Insurance + +--------+ +--------+ + + | Payer | Benefi | Subscriber | Type | Phone | Address | | | t Plan | ID | | | | | | / | | | | | | | Group | | | | | + +--------+ +--------+ + + | [place] - [place] | [place] - | [id number] | [employer] | [phone] [address] [address] [place] | | HEALTHCARE | [place] | | re | [address] | [place] [address] | | | | | | | | | | HEALTH | | | | | | | CARE | | | | | + +--------+ +--------+ + + + +--------+ +--------+ + + | Guarantor Name | Accoun | Relation to | Date | Phone | Billing Address | | | t Type | Patient | of | | | | | | | | | | + +--------+ +--------+ + + | DENISE GASCA | Person | Self [birth year] Home: | [address] | | | al/Fam | | [phone] | [phone] [place] | | | [place] | | | [phone] | [phone] | + +--------+ +--------+ + +
--- OUTSIDE RECORDS SUMMARY | ~2019-06-03 | XMS | Encounter Summary ---
Demographics + + + | Address | [address] | | | [place] [address] | + + + | Home Phone | | + + + | Preferred Language | Unknown | + + + | Marital Status | | + + + | Christian Affiliation | 1013 | + + + | Race | Unknown | + + + | Ethnic Group | Unknown | + + + Author + + + | Author | [facility] | | | and [place] | + + + | Organization | [facility] | | | and [place] | + + + | Address | Unknown | + + + | Phone | Unavailable | + + + Support + + + + + | Name | Relationship | Address | Phone | + + + + + | Frances Gasca | ECON | NA | | | | | [place], [place] [address] | | + + + + + | Juana Gasca | ECON | [address] | | | | | [place] | | | | | [address] | | + + + + + | Juana Gasca | ECON | Unknown | | + + + + + Care Team Providers + +------+ + | Care Host Hostess Name | Role | Phone | + +------+ + | Timo Lorenzana | PCP | | | MD | | | + +------+ + Reason for Visit +--------+ + | Reason | Comments | +--------+ + | Other | productive cough | +--------+ + Encounter Details +--------+ + + + + | Date | Type | Department | Care Team | Description | +--------+ + + + + | 03/17/ | Telephone | [facility] | [place], | Other (productive | | 2014 | | PULMONARY [address] | Florence You MD | cough) | | | | [place], | | | | | | [place] [address] | | | | | | [phone] | | | +--------+ + + + [...] | | | | | [place] | | | | | | [address] | | | | | | | | +--------+---------+ + + + documented as of this encounter Visit Diagnoses Not on filedocumented in this encounter"
--- OUTSIDE RECORDS SUMMARY | ~2019-06-03 | XMS | Encounter Summary ---
Demographics + + + | Address | [address] | | | [place] [address] | + + + | Home Phone | | + + + | Preferred Language | Unknown | + + + | Marital Status | | + + + | Nondenominational Affiliation | 1013 | + + + | Race | Unknown | + + + | Ethnic Group | Unknown | + + + Author + + + | Author | [facility] | | | and [place] | + + + | Organization | [facility] | | [...] | | | | [place], [place] [address] | | + + + + + | Juana Ventura | ECON | [address] | | | | | [place] | | | | | [address] | | + + + + + | Juana Ventura | ECON | Unknown | | + + + + + Care Team Providers + +------+ + | Care Internal Medicine Veterinary Technician Name | Role | Phone | + +------+ + | Timo Lorenzana | PCP | | | MD | | | + +------+ + Encounter Details +--------+ + + + + | Date | Type | Department | Care Team | Description | +--------+ + + + + | 07/19/ | Hospital | [facility] | Offenstein, | Cough | | 2012 - | Encounter | MED CTR XRAY [address] | Florence You MD | | | | | [place] | | | | 07/21/ | | [place] [address] | | | | 2012 | | [phone] | | | +--------+ + + + [...] + + +---------+ + + | albuterol | 2 puffs inhaled | | 0 | 02/17/20 | | | (VENTOLIN HFA) 90 | every 4 hours as | | | 12 | 3 | | mcg/puff inhaler | needed for shortness | | | | | | | of breath | | | | | + + + +---------+ + + | ascorbic acid ([facility] | Take 250 mg by mouth | | 0 | 02/17/20 | | | VITAMIN C) 250 MG | 2 times daily. | | | 12 | 3 | | tablet | | | | | | + + + +---------+ + + | aspirin (ASPIRIN | Take 81 mg by mouth | | 0 | 02/17/20 | | | LOW DOSE) 81 MG | Daily. | | | 12 | 9 | | tablet | | | | | | + + + +---------+ + + | Calcium Carbonate | two times daily | | 0 | 03/07/20 | | | (CALCIUM 600 PO) | | | | 12 | 3 | + + + +---------+ + + | Calcium | TABS - 1 tablet by | | 0 | 02/17/20 | | | Carbonate-Vitamin D | mouth 3 times daily | | | 12 | 3 | | (CALCIUM + D PO) | | | | | | [...] + + +---------+ + + | | 1 puff inhaled twice | | 0 | 02/17/20 | | | fluticasone-salmeter | daily | | | 12 | 5 | | ol (ADVAIR DISKUS) | | | | | | | 250-50 mcg/puff | | | | | | | diskus inhaler | | | | | | + + + +---------+ + + | furosemide (LASIX) | Take 40 mg by mouth | | 0 | 10/18/19 | | | 40 mg tablet | every morning. | | | 12 | 4 | + + + +---------+ + + [...] | | 0 | | | | Methylsulfonylmethan | mouth 3 times daily. | | | | 3 | | e (MSM) 1500 MG TABS | | | | | | + + + +---------+ + + | Multiple | Take one by mouth | | 0 | 03/07/20 | | | Vitamins-Minerals | daily | | | 12 | 9 | | (EQL CENTRAL-ROSAMARIA) | | | | | | | TABS | | | | | | + + + +---------+ + + | multivitamin | 1 tablet by mouth | | 0 | 02/17/20 | | | (THERAGRAN) per | daily | | | 12 | 3 | | tablet | | | | [...] +---------+ + + | tiotropium | Inhale 1 capsule | 30 | 0 | 07/19/19 | | | (SPIRIVA HANDIHALER) | into the lungs | capsule | | 13 | 5 | | 18 mcg inhalation | Daily. | | | | | | capsule [...] | | | | | [place], [place] | | | | | | [address] | | | | | | | | +--------+---------+ + + + documented as of this encounter Procedures + +--------+ + + + | Procedure Name | Priori | Date/Time | Associated Diagnosis | Comments | | | ty | | | | + +--------+ + + + | XR CHEST PA AND | Routin | 07/19/2012 | Cough | Results for this | | LATERAL | e | 5:33 PM | | procedure are in the | | | | PST | | results section. | + +--------+ + + + documented in this encounter Results XR Chest PA and Lateral (07/19/2012 5:33 PM PST) + + | Specimen | + + | | + + + + + | Narrative | Performed At | + + + | [facility] | [place] | | Department [address] [place], [place] [address] | [facility] [place] | | [ rep [address]] [ rep [facility] | | st zip] Signed | - IMAGING | | | | | Patient Name: DENISE VENTURA Physician: | | | : 1935 Age: 77 Sex: M Unit #: [id number] | | | Exam Date: 07/19/12 Location: [facility] [place] | | | Report #: [id number] Page: | | | %(RAD)RES..mtdd.print.filter("pg") of %(RAD) | | | RES..mtdd.print.filter("tpg") | | | | | | Accession Number: [id number] | | | TWO-VIEW CHEST CLINICAL HISTORY: PRODUCTIVE COUGH. | | | COMPARISON: May 07, 2011 FINDINGS: | | | Sternal wires and aortic valve prosthesis are noted. There is a | | | dual-chamber cardiac pacemaker in stable position with power pack on | | | the left and intact leads to the right atrium and right ventricle. | | | There is stable mild cardiomegaly. A small amount of linear | | | density is seen at the left lung base suggesting subsegmental | | | atelectasis. No other areas of abnormal lung density are seen. | | | Hyperinflation is present with flattening of the hemidiaphragms and | | | increased AP diameter. IMPRESSION: 1. POSTOP | | | AORTIC VALVE REPLACEMENT WITH STABLE PACEMAKER AND STABLE | | | CARDIOMEGALY. 2. LEFT BASILAR ATELECTASIS AND | | | HYPERINFLATION. NO OTHER PULMONARY DENSITIES ARE SEEN. | | | Dictated Date/Time: 07/19/2012 17:33 Transcribed Date/Time: | | | 07/19/2012 19:42 Home Care Aide: | | | <<Signature on File>> | | | | | | Orlando Mehta MD07/20/12 0836 <Electronically signed by | | | Orlando Mehta MD> Orlando Mehta MD 07/19/12 | | | 1733 Home Care Aide: [employer] [id number]/14/13 194 | | | Florence La MD | | + + + + + + + + | Performing | Address | City/State/Zipcode | Phone Number | | Organization | | | | + + + + + | [address] | [address] | [place] | [phone] | | [facility] | | [address] | | | - IMAGING | | | | + + + + + documented in this encounter Visit Diagnoses + + | Diagnosis | + + | Cough | + + documented in this encounter
--- OUTSIDE RECORDS SUMMARY | ~2019-06-03 | XMS | Encounter Summary ---
Demographics + + + | Address | [address] | | | [place] [address] | + + + | Home Phone | | + + + | Preferred Language | Unknown | + + + | Marital Status | | + + + | Hinduism Affiliation | 1013 | + + + | Race | Unknown | + + + | Ethnic Group | Unknown | + + + Author + + + | Author | [facility] | | | and [place] | + + + | Organization | [facility] | | | and [place] | + + + | Address | Unknown | + + + | Phone | Unavailable | + + + Support + + + + + | Name | Relationship | Address | Phone | + + + + + | Frances Gasca | ECON | NA | | | | | [place], [place] [address] | | + + + + + | Juana Gasca | ECON | [address] | | | | | [place] | | | | | [address] | | + + + + + | Juana Gasca | ECON | Unknown | | + + + + + Care Team Providers + +------+ + | Care Bat Carrier Name | Role | Phone | + +------+ + | Timo Lorenzana | PCP | | | MD | | | + +------+ + Reason for Visit +--------+ + | Reason | Comments | +--------+ + | COPD | | +--------+ + Encounter Details +--------+---------+ + + + | Date | Type | Department | Care Team | Description | +--------+---------+ + + + | 03/28/ | Office | [facility] | [place]enstein, | COPD (chronic | | 2013 | Visit | PULMONARY [address] | Florence You MD | obstructive | | | | [place], | | pulmonary disease) | | | | [place] [address] | | (Primary Dx); | | | | [phone] | | Obstructive sleep | | | | | | apnea on BiPAP; | | | | | | Nocturnal hypoxemia | | | | | | due to emphysema | | | | | | (HCC); S/P AVR | | | | | | (aortic valve | | | | | | replacement) | +--------+---------+ + + + Social History [...] + + + | Blood Pressure | 122/60 | 03/28/2014 11:04 AM | | | | | PDT | | + + + + + | Pulse | 63 | 03/28/2014 11:04 AM | | | | | PDT | | + + + + + | Temperature | - | - | | + + + + + | Respiratory Rate | - | - | | + + + + + | Oxygen Saturation | 95% | 03/28/2014 11:04 AM | | | | | PDT | | + + + + + | Inhaled Oxygen | - | - | | | Concentration | | | | + + + + + | Weight | 107.6 kg (237 lb 3.2 | 03/28/2014 11:04 AM | | | | oz) | PDT | | + + + + + | Height | 184.2 cm (6' 0.5") | 03/28/2014 11:04 AM | | | | | PDT | | + + + + + | Body Mass Index | 31.73 | 03/28/2014 11:04 AM | | | | | PDT | | + + + + + documented in this encounter Patient Instructions Patient Instructions Florence La MD - 03/28/2014 11:43 AM PDTNo changes today. At your next visit, we can recheck your oxygen at night on your BiPAP only. I would recommend physical therapy once you are off of sternal precautions to get you back on your feet. documented in this encounter Progress Notes Florence La MD - 03/28/2014 11:19 AM PDTFormatting of this note might be differe nt from the original. Pulmonary Follow Up HPI Serge Gasca is a 79 y.o. male patient of Timo Lorenzana here today for follow up of COPD. He notes that he had his valve replaced on 04/10/2014. He had an angiogram and his arteries looked good, so he did not have to have a bypass. He ended up having the surgery on a morning and having the angiogram on a Monday morning. He notes the surgery went well. He d id have to undergo a diuresis afterwards as he had retained so much fluid from the heart tiana lure. He is currently on a regimen of Advair twice daily and Spiriva once daily. He does feel li ke this medication regimen is working for them. He was using his rescue inhaler before surge ry, but has not needed this since he got home. He returns today for routine follow up. His breathing is now doing better. Currently he is able to walk at least 100 yards at his o wn pace on level ground. He is not exercising regularly. He has been walking within his hous e, doing laps 6 times daily. He has not been referred to physical therapy, and is not sure i f they have plans to send him after he is off sternal precautions. He does not cough chronically. He has not had hemoptysis. He has been using his BiPAP, and took it with him to his surgery. He is not having any issu es, and his compliance has been good. He has been evaluated for nocturnal oxygen and does us e it. He is currently on 1 LPM at night. Past Medical History Past Medical History Diagnosis Date Coronary artery disease Aortic valve stenosis severe, follows with Dr. Fortune, s/p AVR 03/10/2014 Mitral valve stenosis s/p replacement COPD (chronic obstructive pulmonary disease) (HCC) Congestive heart failure (HCC) Diabetes mellitus, type 2 (HCC) Hypertension Hypothyroidism Osteoarthritis Otogenic vertigo Anemia MARY (obstructive sleep apnea) on auto BiPAP Dysphagia Atrial fibrillation (HCC) s/p ablation and pacemaker BPH (benign prostatic hyperplasia) s/p TURP and gets dilated periodically Urethral stricture Past Surgical History Past Surgical History Procedure Date Mitral valve replacement/repair 1995 titanium alloy valve Turp 2007 Back surgery lower back x2 Hernia repair x3 Rotator cuff repair Coronary artery stenting x2 Cardiac ablation x2 Pacemaker placement Hemorrhoid surgery Retinal detachment repair Deviated septum repair Ligation of artery in nostril Total hip arthroplasty 2010 Right Cortisone injection Left knee Urethral stricture dilatation multiple, usually a couple times a year Aortic valve replacement/repair 03/10/2014 [facility] Cardiac catherization 03/09/2014 Social History: History Social History Marital Status: Spouse Name: N/A Number of Children: N/A Years of Education: N/A Social History Main Topics Smoking status: Former Smoker -- 3.5 packs/day for 40 years Types: Cigarettes Quit date: 07/22/1990 Smokeless tobacco: Never Used Comment: 80 pack-year Alcohol Use: Yes Comment: 1 drink in the evening Drug Use: No Sexually Active: None Other Topics Concern None Social History Narrative None Allergies: Allergies Allergen Reactions Metoprolol Succinate Swelling Medications: Outpatient Encounter Prescriptions as of 03/28/2014 Medication Sig Dispense Refill albuterol (PROAIR HFA) 90 mcg/puff inhaler Inhale 2 puffs into the lungs every 4 hours as needed for Shortness of Breath. 3 Inhaler 4 aspirin (ASPIRIN LOW DOSE) 81 MG tablet Take 81 mg by mouth Daily. carvedilol (COREG) 3.125 mg tablet 1/2 tablet twice daily CINNAMON PO Take 1,000 mg by mouth 2 times daily. fluticasone-salmeterol (ADVAIR DISKUS) 250-50 mcg/puff diskus inhaler 1 puff inhaled tw ice daily [DISCONTINUED] furosemide (LASIX) 40 mg tablet Take 40 mg by mouth every morning. Dkqchgdajik-Bbmfmalmv-Kvw C-Mn (GLUCOSAMINE 1500 COMPLEX PO) Take 1,500 mg by mouth. Ta ke 2 tablets every AM and 1 tablet every PM levothyroxine (SYNTHROID, LEVOTHROID) 150 mcg tablet Take 150 mcg by mouth Daily. lisinopril (PRINIVIL,ZESTRIL) 2.5 MG tablet Take 2.5 mg by mouth Daily. metFORMIN (GLUCOPHAGE) 500 mg tablet Take 500 mg by mouth 2 times daily. Multiple Vitamins-Minerals (EQL CENTRAL-ROSAMARIA) TABS Take one by mouth daily nitrofurantoin (MACRODANTIN) 50 MG capsule Take 50 mg by mouth nightly. nitroglycerin (NITROSTAT) 0.4 mg SL tablet Use as directed as needed omeprazole (PRILOSEC OTC) 20 mg tablet Take 20 mg by mouth Daily. Potassium Chloride Kaylene CR (KLOR-CON M20 PO) CR-TABS - 1 tablet by mouth twice daily pravastatin (PRAVACHOL) 80 MG tablet Take 80 mg by mouth nightly. tiotropium (SPIRIVA HANDIHALER) 18 mcg inhalation capsule Inhale 1 capsule into the марина gs Daily. 30 capsule torsemide (DEMADEX) 20 mg tablet Take 40 mg by mouth 2 times daily. warfarin (COUMADIN) 7.5 mg tablet Take 7.5 mg by mouth Daily. Take 7.5mg on Monday and Monday. Take 10mg all other days Review of Systems Constitutional: Denies fever, chills, and sweats. Has lost 55 pounds since March. Sleep: See HPI. Eyes: Denies vision change and eye irritation. ENT: Denies earache, decreased hearing, nosebleeds, sore throat, and hoarseness. Resp: See HPI. CV: Denies chest pain, palpitations, and syncope. Leg swelling is much improved, still ofelia e in the feet. He was a little lightheaded when he came in. GI: Denies heartburn, nausea, vomiting, and abdominal pain. : Has a cain in for urinary retention since the surgery. Objective BP 122/60 | Pulse 63 | Ht 1.842 m (6' 0.5") | Wt 107.593 kg (237 lb 3.2 oz) | BMI 31.71 kg/ m2 | SpO2 95% RA General Appearance: Alert, cooperative, no distress, appears stated age Head: Normocephalic, without obvious abnormality, atraumatic Eyes: PERRL, conjunctiva clear, no scleral icterus, EOM's intact Ears: Normal TM's, external auditory canals, diminished acuity Nose: Nares normal, septum midline, mucosa normal Mouth: No oral lesions or exudate Neck: Supple, symmetrical, no adenopathy Lungs: No accessory muscle use, breath sounds are diminished bilaterally with prolongatio n of the expiratory phase, no wheezes, crackles or rhonchi Chest Wall: No deformity Heart: Regular rate and rhythm, faint murmur with faint valve click, no rub or gallop Abdomen: Soft, non-tender, non-distended, mildly obese Extremities: No cyanosis, or clubbing, left greater than right lower extremity edema Pulses: Radial pulses 2+ and symmetric Skin: Warm and dry Lymph nodes: Cervical and supraclavicular nodes normal Data: VPAP Data: Dates: 02/25-03/26/14 Home Health Company: [facility] Machine type: Respironics auto BiPAP Median IPAP Pressure: 14 cm H2O Maximum IPAP Pressure: 16.0 cm H2O Median EPAP Pressure: 11.7 cm H2O AHI: 0.8 Total number of days: 30 Number of days used: 29 Median daily usage: 5:32 hours Percent of days used for more than 4 hours: 96.7 % Time in large leak: 10 mins Immunization History Administered Date(s) Administered PNEUMOCOCCAL POLYSACCHARIDE 23-VALENT (PPSV23) 07/19/2009 TRIVALENT INFLUENZA, PRESERATIVE FREE (PED/ADOL/ADULT) 04/18/2012, 02/03/2013, 02/02/20 14 Assessment 1. COPD (chronic obstructive pulmonary disease) - Doing well on Advair and Spiriva. No sharpe ges today. 2. Obstructive sleep apnea on BiPAP - Doing well on BiPAP. 3. 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 We can recheck at next kyung ointment as after valve replacement this may have resolved. 4. S/P AVR (aortic valve replacement) - Doing well. I suggested physical therapy after he i s not on sternal precautions. Plan 1.Continue Advair and Spiriva. 2.Continue BiPAP current settings. 3.Continue nocturnal oxygen bleed in. Recheck overnight oximetry on BiPAP alone at next vis it. 4. I recommended physical therapy once off of sternal precautions. He was advised to call if new pulmonary symptoms were to develop. Return to clinic in 6 months, or sooner with concerns. CC: Timo Lorenzana Portions of this report were transcribed using voice recognition software. Every effort wa s made to ensure accuracy; however, inadvertent computerized baker errors may be pre sent. Electronically signed by: Florence La MD 03/28/2014 11:30 documented in t his encounter Plan of Treatment +--------+---------+ + + + | Date | Type | Specialty | Care Team | Description | +--------+---------+ + + + | 10/22/ | Office | Cardiology | Elif Hylton, | | | 2019 | Visit | | [address] | | | | | | [place] | | | | | | [address] | | | | | | | | +--------+---------+ + + + documented as of this encounter Visit Diagnoses + + | Diagnosis | + + | COPD (chronic obstructive pulmonary disease) - Primary Chronic airway obstruction, | | not elsewhere classified | + + | Obstructive sleep apnea on BiPAP Obstructive sleep apnea (adult) (pediatric) | + + | 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
--- OUTSIDE RECORDS SUMMARY | ~2019-06-03 | XMS | Encounter Summary ---
Demographics + + + | Address | [address] | | | [place] [address] | + + + | Home Phone | | + + + | Preferred Language | Unknown | + + + | Marital Status | | + + + | Roman Catholic Affiliation | 1013 | + + + [...] | | | | [place], [place] [address] | | + + + + + | Juana Gasca | ECON | [address] | | | | | [place] | | | | | [address] | | + + + + + | Juana Gasca | ECON | Unknown | | + + + + + Care Team Providers + +------+ + | Care Juice Mixer Name | Role | Phone | + [...] MD | cough) | | | | [place], | | | | | | [place] [address] | | | | | | [phone] | | | +--------+ + + + [...] | | | | | [place] | | | | | | [address] | | | | | | | | +--------+---------+ + + + documented as of this encounter Visit Diagnoses Not on filedocumented in this encounter"
--- OUTSIDE RECORDS SUMMARY | ~2019-06-03 | XMS | Encounter Summary ---
Demographics + + + | Address | [address] | | | [place] [address] | + + + | Home Phone | | + + + | Preferred Language | Unknown | + + + | Marital Status | | + + + | Jehovah'S Witness Affiliation | 1013 | + + + | Race | Unknown | + + + | Ethnic Group | Unknown | + + + Author + + + | Author | [facility] | | | and [place] | + + + | Organization | [facility] | | | [...] | | | | [place] [address] | | + + + + + | Juana Ventura | ECON | [address] | | | | | [place] | | | | | [address] | | + + + + + | Juana Ventura | ECON | Unknown | | + + + + + Care Team Providers + +------+ + | Care Tensile Tester Name | Role | Phone | + +------+ + PCP | Unavailable | + +------+ + Encounter Details +--------+ + + + + | Date | Type | Department | Care Team | Description | +--------+ + + + + | 10/08/ | Hospital | [facility] | Gabriel Davila, | | | 2007 - | Encounter | [facility] | [address] | | | | | CARDIAC TRANSPLANT | [address] | | | 10/10/ | | [address] | [place] [address] | | | 2007 | | [place] | [phone] | | | | | [address] | | | | | | [phone] | | | +--------+ + + + [...] Discharge Summaries Gabriel Davila MD - 04/10/2013 3:47 PM PSTPATIENT NAME: Serge Ventura DATE OF ADMISSION: 10/09/2007 AGE/SEX: 72/M DATE OF DISCHAR GE: 10/11/2007 : 1935 Mr. Ventura presents back to undergo RF ablation of an atrial tachycardia. He has a histo ry of supraventricular tachycardia. He underwent an EP study recently. He has been on large doses of amiodarone, beta-blockers. His LV function has gone from 60 to 45%. He is known t o have valvular heart disease with mitral valve replacement in 1995. He also had a stent p laced in September 2004. He has been treated for hypertension. PHYSICAL EXAMINATION: This is an obese male resting comfortably. Jugular venous pressure i s normal. Heart sounds unremarkable. Lungs clear. Extremities showed no edema. HOSPITAL COURSE: On admission he was taken to the EP laboratory. With Dr. Woodward's ass istance we attempted RF ablation of an atrial tachycardia. During the study at no time were we able to clearly entrain this arrhythmia. It could however be reset with pacing but not terminated. Target areas were identified in the mid right posterior septal region. At no time was the earliest activation on the left side. RF current was applied to target zones but we were unsuccessful in ablating his atrial tachycardia. Excellent target electrocardi ogram and activation sequences were found but ultimately we were unsuccessful. He was cont inued on heparin. His coumadin was restarted. He underwent cardioversion back to a sinus r hythm. He is being scheduled for repeat ablation at an alternate site. That is in the works to be rescheduled. We will continue to follow him closely. Gabriel Davila MD A DAC/dls #[id number] cc: DO Gabriel East MD Segundo VENTURA [id number] 10/11/07 DIS IN [id number] DISCHARGE SUMMARY Gabriel kee MD [facility] THIS REPORT IS CONFIDENTIAL AND NOT TO BE RELEASED WITHOUT PROPER AUTHORIZATION.Electronica lly signed by Gabriel Davila MD at 04/12/2013 3:39 AM PSTdocumented in this encounter Plan of Treatment +--------+---------+ + + + | Date | Type | Specialty | Care Team | Description | +--------+---------+ + + + | 10/22/ | Office | Cardiology | Elif Hylton, | | | 2019 | Visit | | [address] | | | | | | [place] | | | | | | [address] | | | | | | | | +--------+---------+ + + + documented as of this encounter Visit Diagnoses Not on filedocumented in this encounter"
--- OUTSIDE RECORDS SUMMARY | ~2019-06-03 | XMS | Encounter Summary ---
Demographics + + + | Address | [address] | | | [place] [address] | + + + | Home Phone | | + + + | Preferred Language | Unknown | + + + | Marital Status | | + + + | Sabianism Affiliation | 1013 | + + + | Race | Unknown | + + + | Ethnic Group | Unknown | + + + Author + + + | Author | [facility] | | | and [place] | + + + | Organization | [facility] | | [...] | | | | [place], [place] [address] | | + + + + + | Juana Gasca | ECON | [address] | | | | | [place] | | | | | [address] | | + + + + + | Juana Gasca | ECON | Unknown | | + + + + + Care Team Providers + +------+ + | Care Lockstitch Coat Joiner Name | Role | Phone | + +------+ + | Timo Lorenzana | PCP | | | MD | | | + +------+ + Reason for Visit +--------+ + | Reason | Comments | +--------+ + | Other | increased phlegm | +--------+ + Encounter Details +--------+ + + + + | Date | Type | Department | Care Team | Description | +--------+ + + + + | 12/22/ | Telephone | [facility] | Abhinav, | Other (increased | | 2014 | | PULMONARY [address] | Florence You MD | phlegm) | | | | [place], | | | | | | [place] [address] | | | | | | [phone] | | | +--------+ + + + [...] | | | | | [place] | | | | | | [address] | | | | | | | | +--------+---------+ + + + documented as of this encounter Visit Diagnoses Not on filedocumented in this encounter"
--- OUTSIDE RECORDS SUMMARY | ~2019-06-03 | XMS | Encounter Summary ---
Demographics + + + | Address | [address] | | | [place] [address] | + + + | Home Phone [...] | | | | [place], [place] [address] | | + + + + + | Juana Gasca | ECON | [address] | | | | | [place] | | | | | [address] | | + + + + + | Juana Gasca | ECON | Unknown | | + + + + + Care Team Providers + +------+ + | Care Burglar Alarm Mechanic Name | Role | Phone | + +------+ + | Timo Lorenzana | PCP | | | MD | | | + +------+ + Reason for Visit +---------+ + | Reason | Comments | +---------+ + | Results | overnight oximetry | +---------+ + Encounter Details +--------+ + + + + | Date | Type | Department | Care Team | Description | +--------+ + + + + | 01/07/ | Telephone | [facility] | Cassidy Xavier, | Results (overnight | | 2012 | | PULMONARY [address] | RN | oximetry) | | | | [place] | | | | | | [place] [address] | | | | | | [phone] | | | +--------+ + + + [...] | | | | | [place], [place] | | | | | | [address] | | | | | | | | +--------+---------+ + + + + + +--------+ + [...]
--- OUTSIDE RECORDS SUMMARY | ~2019-06-03 | XMS | Encounter Summary ---
Demographics + + + | Address | [address] | | | [place] [address] | + + + | Home Phone | | + + + | Preferred Language | Unknown | + + + | Marital Status | | + + + | Adventist Affiliation | 1013 | + + + | Race | Unknown | + + + | Ethnic Group | Unknown | + + + Author + + + | Author | [facility] | | | and [place] | + + + | Organization | [facility] | | [...] | | | | [place] [address] | | + + + + + | Juana Ventura | ECON | [address] | | | | | [place] | | | | | [address] | | + + + + + | Juana Ventura | ECON | Unknown | | + + + + + Care Team Providers + +------+ + | Care Payroll Supervisor Name | Role | Phone | + +------+ + PCP | Unavailable | + +------+ + Encounter Details +--------+ + + + + | Date | Type | Department | Care Team | Description | +--------+ + + + + | 11/17/ | Hospital | [facility] | Gabriel Davila, | | | 2009 - | Encounter | [facility] | [address] | | | | | CARDIAC TELEMETRY | [address] | | | 11/19/ | | [address] | [place] [address] | | | 2009 | | [place] | [phone] | | | | | [address] | | | | | | [phone] | | | +--------+ + + + [...] Discharge Summaries Gabriel Davila MD - 04/10/2013 6:14 AM PSTPATIENT NAME: Serge Ventura Sex/Age: M/74 : 1935 [id number] ADMISSION DATE: 11/17/2009 DISCHARGE DATE: 11/19/2009 DISCHARGE DIAGNOSES 1. His ablation for atrial tachycardia refractory to therapy. 2. Atrial tachycardia. 3. Anticoagulation therapy. HISTORY Serge Ventura is a 74-year-old male well known to our service. He has an ectopic atrial tachycardia that has been ablated by me on multiple occasions and elsewhere on referral. Phillip holland has been unable to control his tachycardia. He has been through multiple medications. Phillip holland presents to undergo His ablation. He has a pacemaker in place that is functioning elvi lly. He continues to be significantly symptomatic from this tachycardia. EXAMINATION ON ADMISSION Obese male, resting comfortably. Jugular venous pressure is normal. Pupils equal and reac t to light. Extraocular motions normal. Chest clear. Lungs clear. Heart with a grade 2/6 systolic ejection murmur. Abdomen obese. Extremities show trace edema. HOSPITAL COURSE On admission, he underwent EP study with His ablation uneventfully. His postoperative cou rse was uneventful. He was restarted on his Coumadin, continued on his cardiac medications , and will follow up in two weeks. Gabriel Davila MD [facility]/jar #[id number] cc: Gabriel Davila MD Segundo VENTURA ADM:11/17/09 [id number] 11/19/09 DIS IN [id number] DISCHARGE SUMMARY Gabriel kee MD [facility] THIS REPORT IS CONFIDENTIAL AND NOT TO BE RELEASED WITHOUT PROPER AUTHORIZATION.Electronica lly signed by Gabriel Davila MD at 04/11/2013 2:07 AM PSTdocumented in this encounter Plan of Treatment +--------+---------+ + + + | Date | Type | Specialty | Care Team | Description | +--------+---------+ + + + | 10/22/ | Office | Cardiology | Elif Hylton, | | | 2019 | Visit | | MD Asad FIELDS | | | | | | [place] | | | | | | [id number] | | | | | | | | +--------+---------+ + + + documented as of this encounter Visit Diagnoses Not on filedocumented in this encounter"
--- OUTSIDE RECORDS SUMMARY | ~2019-06-03 | XMS | Clinical Summary ---
Demographics + + + | Address | [address] | | | [place] [address] | + + + | Home Phone | | + + + | Preferred Language | Unknown | + + + | Marital Status | | + + + | Voodoo Affiliation | 1013 | + + + | Race | Unknown | + + + | Ethnic Group | Unknown | + + + Author + + + | Author | [facility] (Historical as of | | | 01-19-19) | + + + | Organization | [facility] (Historical as of | | | 01-19-19) [...] Providers + +------+ + | Care Senior Cyber Security Analyst Name | Role | Phone | + [...] | Overview: Overview: | | 03/10/2014 at [facility] | + + + + + | [...] | implanted 08/30/2007, Maris Shaffer 1291, SN: [id number] | | interrogation 04/16/2015: battery "good", 3+years, [...] 08/30/2007, Guidant Savageia 1291, SN: | | [id number] Cath, 03/09/2014: RA: 80/13 mean 16mmHg, RV: [...] | 2018 | 5 / | | [id number]: Qty: 1 on | | | | [...] | 2018 | 5 / | | [id number]: Qty: 1 on | | | | [...] | | 2018 | -23 | | [id number]: Qty: 1 on | | | | | | /[id number] | | 03/10/2014 by Caro, | | | | | | 02 / | | MD Timothy | | | | | | | + +------+-------+ +--------+--------+--------+ | Pacing Wire Dual | | N/A: | [facility] | | 09/02/ | 030-00 | | 030-005 - | | Heart | | | 2019 | 5 / | | [id number]: Qty: 1 on | | | | [...] +--------+ +--------+ + + | [place] - [place] | [place] - | [id number] | [facility] | [phone] [address] [address] [place] | | [facility] | [place] | | re | [address] | [place] [address] | | | | | | | [...] | | al/Fam | | 1935 | [phone] | [place] | | | odalis | | | [address] | [address] | + +--------+ +--------+ + +
--- OUTSIDE RECORDS SUMMARY | ~2019-06-03 | XMS | Encounter Summary ---
Demographics + + + | Address | [address] | | | [place] [address] | + + + | Home Phone [...] + | Author | [facility] | | | and [place] | + + + | Organization | [facility] | | | and [place] | + + + | Address | Unknown | + + + | Phone | Unavailable | + + + Support + + + + + | Name | Relationship | Address | Phone | + + + + + | Frances Gasca | ECON | NA | | | | | [place], [place] [address] | | + + + + + | Juana Gasca | ECON | [address] | | | | | [place] | | | | | [address] | | + + + + + | Juana Gasca | ECON | Unknown | | + + + + + Care Team Providers + +------+ + | Care Bicycle Repairman Name | Role | Phone | + +------+ + | Timo Lorenzana | PCP | | | MD | | | + +------+ + Reason for Visit +--------+ + | Reason | Comments | +--------+ + | Other | ALBUTEROL INHALER QUESTION | +--------+ + Encounter Details +--------+ + + + + | Date | Type | Department | Care Team | Description | +--------+ + + + + | 02/26/ | Telephone | [facility] [place] | Dennyenstein, | Other (ALBUTEROL | | 2012 | | PULMONARY [address] | Florence You MD | INHALER QUESTION) | | | | [place] | | | | | | [place] [address] | | | | | | [phone] | | | +--------+ + + + [...] | | | | | [place] | | | | | | [address] | | | | | | | | +--------+---------+ + + + documented as of this encounter Visit Diagnoses Not on filedocumented in this encounter"
--- OUTSIDE RECORDS SUMMARY | ~2019-06-03 | XMS | Encounter Summary ---
Demographics + + + | Address | [address] | | | [place] [address] | + + + | Home Phone | | + + + | Preferred Language | Unknown | + + + | Marital Status | | + + + | Sikh Affiliation | 1013 | + + + | Race | Unknown | + + + | Ethnic Group | Unknown | + + + Author + + + | Author | [facility] | | | and [place] | + + + | Organization | [facility] | | | [...] | | | | [place], [place] [address] | | + + + + + | Juana Gasca | ECON | [address] | | | | | [place] | | | | | [address] | | + + + + + | Juana Gasca | ECON | Unknown | | + + + + + Care Team Providers + +------+ + | Care Mannequin Maker Name | Role | Phone | + +------+ + | Timo Lorenzana | PCP | | | MD | | | + +------+ + Encounter Details +--------+ + + + + | Date | Type | Department | Care Team | Description | +--------+ + + + + | 06/25/ | Orders Only | [facility] | [place], | MARY (obstructive | | 2014 | | MED CTR PULMONARY | Florence You MD | sleep apnea) | | | | FUNCTION [address] | | | | | | [place], | | | | | | [place] [address] | | | | | | [phone] | | | +--------+ + + + [...] | | | | | [place] | | | | | | [address] | | | | | | | | +--------+---------+ + + + documented as of this encounter Visit Diagnoses + + | Diagnosis | + + | MARY (obstructive sleep apnea) Obstructive sleep apnea (adult) (pediatric) | + + documented in this encounter"
--- OUTSIDE RECORDS SUMMARY | ~2019-06-03 | XMS | Encounter Summary ---
Demographics + + + | Address | [address] | | | [place] [address] | + + + | Home Phone | | + + + | Preferred Language | Unknown | + + + | Marital Status | | + + + | Gnosticist Affiliation | 1013 | + + + | Race | Unknown | + + + | Ethnic Group | Unknown | + + + Author + + + | Author | [facility] | | | and [place] | + + + | Organization | [facility] | | | [...] | | | | [place] [address] | | + + + + + | Juana Gasca | ECON | [address] | | | | | [place] | | | | | [address] | | + + + + + | Juana Gasca | ECON | Unknown | | + + + + + Care Team Providers + +------+ + | Care Religious Education Director Name | Role | Phone | + +------+ + PCP | Unavailable | + +------+ + Encounter Details +--------+ + + + + | Date | Type | Department | Care Team | Description | +--------+ + + + + | 03/07/ | Hospital | [facility] | Ramo Fortune | Atrial Fibrillation | | 2007 | Encounter | [facility] | MD [address] | ([facility]) | | | | CLINICAL DECISION | Calvin Pastor | | | | | [address] [place] [address] | [place] [address] | | | | | [place], [place] | [phone] | | | | | [address] | | | | | | [phone] | | | +--------+ + + + [...] | | | | | [place], [place] | | | | | | [address] | | | | | | | | +--------+---------+ + + + documented as of this encounter Visit Diagnoses + + | Diagnosis | + + | Atrial fibrillation (HCC) Atrial fibrillation | + + documented in this encounter"
--- OUTSIDE RECORDS SUMMARY | ~2019-06-03 | XMS | Encounter Summary ---
Demographics + + + | Address | [address] | | | [place] [address] | + + + | Home Phone | | + + + | Preferred Language | Unknown | + + + | Marital Status | | + + + | Rastafari Affiliation | 1013 | + + + | Race | Unknown | + + + | Ethnic Group | Unknown | + + + Author + + + | Author | [facility] [employer] (Historical as of | | | 01-19-19) | + + + | Organization | [facility] [employer] (Historical as of | | | 01-19-19) [...] Team Providers + +------+ + | Care Continuity Coordinator Name | Role | Phone | + +------+ + | Timo Lorenzana MD | PCP | | + +------+ + Encounter Details +--------+---------+ + + + | Date | Type | Department | Care Team | Description | +--------+---------+ + + + | 03/11/ | Office | [facility] | Yuri Raymond | | | 2019 | Visit | Pulmonology [address] | Rush Raymond MD [address] | | | | | [address] | [address] | | | | | [place], [place] | [place] [address] | | | | | [address] | [phone] | | | | | [phone] | | | +--------+---------+ + + + Social History [...] as of this encounter Plan of Treatment Not on fileas of this encounter Visit Diagnoses Not on filein this encounter"
--- OUTSIDE RECORDS SUMMARY | ~2019-06-03 | XMS | Encounter Summary ---
Demographics + + + | Address | [address] | | | [place] [address] | + + + | Home Phone | | + + + | Preferred Language | Unknown | + + + | Marital Status | | + + + | Sabianism Affiliation | 1013 | + + + | Race | Unknown | + + + | Ethnic Group | Unknown | + + + Author + + + | Author | [facility] | | | and [place] | + + + | Organization | [facility] | | | [...] | | | | [place], [place] [address] | | + + + + + | Juana Gasca | ECON | [address] | | | | | [place] | | | | | [address] | | + + + + + | Juana Gasca | ECON | Unknown | | + + + + + Care Team Providers + +------+ + | Care Commercial Credit Head Name | Role | Phone | + [...] + + | 07/31/ | [facility] | [facility] [place] | [place], | Chronic obstructive | | 2015 | Visit | PULMONARY [address] | Florence You MD | pulmonary disease, | | | | [place], | | unspecified COPD | | | | [place] [address] | | type (HCC) (Primary | | | | [phone] | | Dx); Obstructive | | | [...] He is currently on 1 L[facility] ht bled in to his BiPAP. He [...] valve replacement/repair 1995 titanium alloy valve Turp 2006 Back surgery lower back x2 Hernia repair x3 Rotator cuff repair Coronary artery stenting x2 Cardiac ablation x2 Pacemaker placement Hemorrhoid surgery Retinal detachment repair Deviated septum repair Ligation of artery in nostril Total hip arthroplasty 2011 Right Cortisone injection Left knee Urethral stricture dilatation multiple, usually a couple times a year Aortic valve replacement/repair 03/10/2014 Joanie carbon jimi, Dr. Elizondo Cardiac catherization 03/09/2014 Bronchoscopy for [...] the lungs Twice Daily. 3 each 3 Jtenapcnwbq-Nduyujdqj-Kbv C-Mn (GLUCOSAMINE 1500 COMPLEX PO) Take 1,500 [...] obstructive pulmonary disease, unspecified COPD type (HCC) J44.9 496 Doing well on current medications. He is very excited to start exercising again right now. He has lost a lot of weight following his valve replacement, and has since been steadily regaining it. 2. Obstructive sleep apnea on BiPAP G47.33 327.23 Reports good control and compliance, and no issues. 3. 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 5. [...] made to ensure accuracy; however, inadvertent computerized operations and maintenance technician errors may be pre sent. documented in [...] [place] | | | | | | [id number] | | | | | | | [...]
--- OUTSIDE RECORDS SUMMARY | ~2019-06-03 | XMS | Encounter Summary ---
Demographics + + + | Address | [address] | | | [place] [address] | + + + | Home Phone | | + + + | Preferred Language | Unknown | + + + | Marital Status | | + + + | Congregational Affiliation | 1013 | + + + | Race | Unknown | + + + | Ethnic Group | Unknown | + + + Author + + + | Author | [facility] | | | and [place] | + + + | Organization | [facility] | | | [...] | | | | [place], [place] [address] | | + + + + + | Juana Gasca | ECON | [address] | | | | | [place] | | | | | [address] | | + + + + + | Juana Gasca | ECON | Unknown | | + + + + + Care Team Providers + +------+ + | Care Flight Engineer Manager Name | Role | Phone | + +------+ + | Timo Lorenzana | PCP | | | MD | | | + +------+ + Reason for Visit + + + | Reason | Comments | + + + | Weight Gain | | + + + Encounter Details +--------+ + + + + | Date | Type | Department | Care Team | Description | +--------+ + + + + | 04/29/ | Telephone | [facility] | Alicja Lloyd, | Weight Gain | | 2018 | | CARDIOLOGY JULIAN | [place] | | | | | [address] | | | | | | [place] | | | | | | [address] | | | | | | [phone] | | | +--------+ + + + [...] [place] | | | | | | [address] | | | | | | | | +--------+---------+ + + + documented as of this encounter Visit Diagnoses Not on filedocumented in this encounter"
--- OUTSIDE RECORDS SUMMARY | ~2019-06-03 | XMS | Encounter Summary ---
Demographics + + + | Address | [address] | | | [place] [address] | + + + | Home Phone | | + + + | Preferred Language | Unknown | + + + | Marital Status | | + + + | Taoism Affiliation | 1013 | + + + | Race | Unknown | + + + | Ethnic Group | Unknown | + + + Author + + + | Author | [facility] | | | and [place] | + + + | Organization | [facility] | | | [...] | | | | [place] [address] | | + + + + + | Juana Gasca | ECON | [address] | | | | | [place] | | | | | [address] | | + + + + + | Juana Gasca | ECON | Unknown | | + + + + + Care Team Providers + +------+ + | Care Greenhouse Instructor Name | Role | Phone | + +------+ + PCP | Unavailable | + +------+ + Encounter Details +--------+ + + + + | Date | Type | Department | Care Team | Description | +--------+ + + + + | 06/02/ | Hospital | [facility] | Offenstein, | | | 2010 | Encounter | MED CTR GENERIC OP | Florence You MD | | | | | CONV DEPT [address] | | | | | | [place], | | | | | | [place] [address] | | | | | | [phone] | | | +--------+ + + + [...] [place] | | | | | | [address] | | | | | | | | +--------+---------+ + + + documented as of this encounter Visit Diagnoses Not on filedocumented in this encounter"
--- OUTSIDE RECORDS SUMMARY | ~2019-06-03 | XMS | Encounter Summary ---
Demographics + + + | Address | [address] | | | [place] [address] | + + + | Home Phone | | + + + | Preferred Language | Unknown | + + + | Marital Status | | + + + | Christian Affiliation | 1013 | + + + | Race | Unknown | + + + | Ethnic Group | Unknown | + + + Author + + + | Author | [facility] | | | and [place] | + + + | Organization | [facility] | | | [...] | | | | [place], [place] [address] | | + + + + + | Juana Gasca | ECON | [address] | | | | | [place] | | | | | [address] | | + + + + + | Juana Gasca | ECON | Unknown | | + + + + + Care Team Providers + +------+ + | Care Tree Inspector Name | Role | Phone | + [...] + + | 03/30/ | Office | [facility] [place] | [place], | Hemoptysis (Primary | | 2014 | Visit | PULMONARY [address] | Florence You MD | Dx); COPD (chronic | | | | [place], | | obstructive | | | | [place] [address] | | pulmonary disease); | | | | [phone] | | Obstructive sleep | | | | | | apnea on BiPAP; | | | | | | Nocturnal hypoxemia | | | | | | due to emphysema | | | | | | ([facility]); Type 2 | | | [...] of oxygen. [facility] mehreen Riddle t [...] t o do a chest x-ray in [place], but he felt like he was doing okay. He is currently on a regimen of Advair twice daily and Spiriva once daily. He does feel li ke this medication regimen is working for them. Currently he is using his rescue inhaler, al buterol, 1 times a week. He is using his nebulizer, albuterol, 2 times a day. He returns to [facility] for routine follow up. [...] inhaled tw ice daily 3 each 4 Gnjnypbogff-Uqhoebmxr-Uev C-Mn (GLUCOSAMINE 1500 COMPLEX PO) Take 1,500 [...] mg by mouth nightly. Respiratory Therapy Supplies [facility] Discontinue nebulizer. Fax to [facility]. [...] Company: [facility] Machine type: Respironics BiPAP auto IPAP Pressure: 16 cm H2O [...] Advair. Plan 1.Check chest CT scan at [facility]. 2.Decrease Advair to 100 mcg dose, [...] made to ensure accuracy; however, inadvertent computerized geothermal operating engineer errors may be pre sent. documented in this encounter Plan of Treatment +--------+---------+ + + + | Date | Type | Specialty | Care Team | Description | +--------+---------+ + + + | 10/22/ | Office | Cardiology | Elif Hylton, | | | 2019 | Visit | | MD Asad FIELDS | | | | | | [place], [place] | | | | | | [id number] | | | | | | | [...]
--- OUTSIDE RECORDS SUMMARY | ~2019-06-03 | XMS | Encounter Summary ---
Demographics + + + | Address | [address] | | | [place] [address] | + + + | Home Phone | | + + + | Preferred Language | Unknown | + + + | Marital Status | | + + + | Mu-Ism Affiliation | 1013 | + + + | Race | Unknown | + + + | Ethnic Group | Unknown | + + + Author + + + | Author | [facility] | | | and [place] | + + + | Organization | [facility] | | [...] | | | | [place] [address] | | + + + + + | Juana Gasca | ECON | [address] | | | | | [place] | | | | | [address] | | + + + + + | Juana Gasca | ECON | Unknown | | + + + + + Care Team Providers + +------+ + | Care Chiseler Head Name | Role | Phone | + +------+ + PCP | Unavailable | + +------+ + Encounter Details +--------+ + + + + | Date | Type | Department | Care Team | Description | +--------+ + + + + | 07/05/ | Hospital | [facility] | [place], | | | 2011 | Encounter | MED CTR XRAY [address] | Florence You MD | | | | | [place] | | | | | | [place] [address] | | | | | | [phone] | | | +--------+ + + + [...] | | | | | [place] | | | | | | [address] | | | | | | | | +--------+---------+ + + + documented as of this encounter Procedures + +--------+ + + + | Procedure Name | Priori | Date/Time | Associated Diagnosis | Comments | | | ty | | | | + +--------+ + + + | CT CHEST WO CONTRAST | | 07/05/2011 | | Results for this | | | | 1:11 PM | | procedure are in the | | | | PST | | results section. | + +--------+ + + + documented in this encounter Results CT Chest wo Contrast (07/05/2011 1:11 PM PST) + + | Specimen | + + | | + + + + + | Narrative | Performed At | + + + | [facility] Diagnostic Imaging Department | [place] | | [address] [facility] [place] | [facility] | | CT CHEST WITHOUT CONTRAST: | DIAG IMG | | 07/05/2011 CLINICAL HISTORY: RESTRICTIVE LUNG DISEASE. | | | FINDINGS: The patient is status post median sternotomy, permanent | | | pacer placement, and mitral valve replacement. There is mild | | | cardiomegaly. There is no gross evidence of heart failure. | | | Extensive coronary artery vascular calcification is noted. | | | The pulmonary parenchyma demonstrates minimal linear subpleural | | | opacity at the bases. This may represent atelectasis or scarring. | | | There is subpleural paraseptal emphysema toward the apices. No | | | bronchiectatic changes are identified. There are scattered | | | benign appearing calcified granulomata. There is a noncalcified | | | benign-appearing 4 mm nodule in the left upper lobe ( image #76). | | | There is no pleural or pericardial effusion. Partially imaged | | | upper abdominal structures are unremarkable. IMPRESSION: 1. | | | STATUS POST PERMANENT PACER PLACEMENT AND MITRAL VALVE REPLACEMENT. | | | 2. LINEAR RETICULAR CHANGES AT THE LUNG BASES CONSISTENT WITH | | | ATELECTASIS OR SCARRING. 3. 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 4. APICAL PARASEPTAL EMPHYSEMA. | | | Dictated Date/Time: 07/06/2011 10:04 Transcribed Date/Time: | | | 07/06/2011 10:09 School Director: PONCE <Electronically Signed | | | by Vin Reyes MD> 07/07/11 1834 | | + + + + + | Procedure Note | + + | Pal, Rad Conversion - 07/12/2013 4:40 PM [facility] | | Diagnostic Imaging Department | | [address] [facility], [place] | | | | | | | | CT CHEST WITHOUT CONTRAST: 07/05/2011 | | | | CLINICAL HISTORY: RESTRICTIVE LUNG DISEASE. | | | | FINDINGS: The patient is status post median sternotomy, permanent pacer | | placement, and mitral valve replacement. There is mild cardiomegaly. There is | | no gross evidence of heart failure. Extensive coronary artery vascular | | calcification is noted. | | | | The pulmonary parenchyma demonstrates minimal linear subpleural opacity at the | | bases. This may represent atelectasis or scarring. There is subpleural | | paraseptal emphysema toward the apices. No bronchiectatic changes are | | identified. There are scattered benign appearing calcified granulomata. | | There is a noncalcified benign-appearing 4 mm nodule in the left upper lobe ( | | image #76). There is no pleural or pericardial effusion. Partially imaged | | upper abdominal structures are unremarkable. | | | | IMPRESSION: | | 1. STATUS POST PERMANENT PACER PLACEMENT AND MITRAL VALVE REPLACEMENT. | | | | 2. LINEAR RETICULAR CHANGES AT THE LUNG BASES CONSISTENT WITH ATELECTASIS OR | | SCARRING. | | | | 3. PUNCTATE BILATERAL PULMONARY PARENCHYMAL GRANULOMATA. | | | | 4. APICAL PARASEPTAL EMPHYSEMA. | | | | Dictated Date/Time: 07/06/2011 10:04 | | Transcribed Date/Time: 07/06/2011 10:09 | | School Director: PONCE | | <Electronically Signed by Vin Reyes MD> 07/07/11 0151 | + + + +---------+ + + | Performing | Address | City/State/Zipcode | Phone Number | | Organization | | | | + +---------+ + + | [place] | | | | | [facility] | | | | + +---------+ + + documented in this encounter Visit Diagnoses Not on filedocumented in this encounter"
--- OUTSIDE RECORDS SUMMARY | ~2019-06-03 | XMS | Encounter Summary ---
Demographics + + + | Address | [address] | | | [place] [address] | + + + | Home Phone | | + + + | Preferred Language | Unknown | + + + | Marital Status | | + + + | Worship Affiliation | 1013 | + + + [...] | | | | [place], [place] [address] | | + + + + + | Juana Gasca | ECON | [address] | | | | | [place] | | | | | [address] | | + + + + + | Juana Gasca | ECON | Unknown | | + + + + + Care Team Providers + +------+ + | Care Nursing Home Admissions Director Name | Role | Phone | + +------+ + | Timo Lorenzana | PCP | | | MD | | | + +------+ + Encounter Details +--------+ + + + + | Date | Type | Department | Care Team | Description | +--------+ + + + + | 02/19/ | Orders Only | [facility] [place] | Abhinav, | | | 2012 | | PULMONARY [address] | [place] You MD | | | | | [place], | | | | | | [place] [address] | | | | | | [phone] | | | +--------+ + + + [...] [place] | | | | | | [address] | | | | | | | | +--------+---------+ + + + documented as of this encounter Visit Diagnoses Not on filedocumented in this encounter"
--- OUTSIDE RECORDS SUMMARY | ~2019-06-03 | XMS | Encounter Summary ---
Demographics + + + | Address | [address] | | | [place] [address] | + + + | Home Phone | | + + + | Preferred Language | Unknown | + + + | Marital Status | | + + + | Church Affiliation | 1013 | + + + [...] | | | | [place] [address] | | + + + + + | Juana Ventura | ECON | [address] | | | | | [place] | | | | | [address] | | + + + + + | Juana Ventura | ECON | Unknown | | + + + + + Care Team Providers + +------+ + | Care Tray Delivery Aide Name | Role | Phone | + +------+ + PCP | Unavailable | + +------+ + Encounter Details +--------+ + + + + | Date | Type | Department | Care Team | Description | +--------+ + + + + | 10/08/ | Hospital | [facility] | Gabriel Davila, | | | 2007 - | Encounter | [facility] | [address] | | | | | CARDIAC TRANSPLANT | [address] | | | 10/10/ | | [address] | [place] [address] | | | 2007 | | [place] | [phone] | | | | | [address] | | | | | | [phone] | | | +--------+ + + + [...] him closely. Gabriel Davila MD A DAC/dls #[id number] cc: DO Gabriel East MD Segundo V[place]URA [id number] 10/11/07 DIS IN [id number] DISCHARGE SUMMARY Gabriel kee MD [facility] THIS REPORT IS CONFIDENTIAL AND NOT [...] [place] | | | | | | [address] | | | | | | | | +--------+---------+ + + + documented as of this encounter Visit Diagnoses Not on filedocumented in this encounter"
--- OUTSIDE RECORDS SUMMARY | ~2019-06-03 | XMS | Encounter Summary ---
Demographics + + + | Address | [address] | | | [place] [address] | + + + | Home Phone | | + + + | Preferred Language | Unknown | + + + | Marital Status | | + + + | Voodoo Affiliation | 1013 | + + + | Race | Unknown | + + + | Ethnic Group | Unknown | + + + Author + + + | Author | [facility] | | | and [place] | + + + | Organization | [facility] | | [...] | | | | [place], [place] [address] | | + + + + + | Juana Gasca | ECON | [address] | | | | | [place] | | | | | [address] | | + + + + + | Juana Gasca | ECON | Unknown | | + + + + + Care Team Providers + +------+ + | Care Repairer Auto Clocks Name | Role | Phone | + +------+ + | Med Lorenzana | PCP | | | MD | | | + +------+ + Encounter Details +--------+ + + + + | Date | Type | Department | Care Team | Description | +--------+ + + + + | 03/07/ | Hospital | [facility] | Erika Fortune | 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 Discharge Summaries by Andrei Lindsay PA-C at 03/17/141427 Author: Andrei Lindsay PA-C Service: Cardiac, Thoracic, and Vascular Surgery Author Type: Physician Head Start Coordinator - Certified Filed: 03/17/14 1441 Date of Service: 03/17/141427 Status: Attested Dispatch Supervisor: Andrei Lindsay PA-C (Physician Head Start Coordinator - Certified) Cosigner: Timothy Whitaker MD at 03/18/14757 Attestation signed by Timothy Whitaker MD at 03/18/14757 I have examined Denise Gasca, reviewed the notes, assessments, and/or procedures perfor med by Andrei Lindsay PA-C, I concur with his documentation of Denise Gasca. [facility] Service: Cardiothoracic Surgery Discharge Summary Date of Admission: 03/07/2014 Date of Discharge: 03/14/2014 Discharge Provider: Andrei Lindsay PA-C Treatment Team: Admitting Provider: Erika Fortune DO Discharge Diagnoses: Active Problems: * No active hospital problems. * Resolved Problems: * No resolved hospital problems. * Procedures: Procedure(s): AORTIC VALVE - REPLACEMENT - REDO CYSTOSCOPY - DILATATION BRIEF HISTORY OF PRESENTATION: Denise Gasca is a 79 y.o. male who is status post mitral valve replacement with a mechanical prosthesis in 1995. He has been experiencing worsening shortness of breath. He wa s investigated and found to have severe aortic stenosis. Coronary angiogram showed nonocclus li coronary artery disease. After due preoperative counseling, he was brought to the operat ing room today for redo sternotomy and aortic valve replacement. Since the patient already h ad one mechanical valve, AVR was also performed with mechanical valve. HOSPITAL COURSE: On 03/10/2014, the patient underwent cardiac surgery as outlined in the procedure report bel ow. Prior to the operation the patient had Velazquez placed multiple times without success, Urojustin charles performed cystoscopy and dilation, patient tolerated the procedure well.The patient susan rated the sternotomy and aortic valve replacement well and was transferred to the cardiac in tensive care unit in stable condition. The patient was extubated on the first post-op day an d pressors were weaned off in a timely fashion. The patient's ICU course was generally uncom plicated and the patient was transferred to the cardiac unit on the 3rd post-operative day. Lines and drains were discontinued without difficulties. The patient's course on the cardiac unit was largely uneventful. They received electrolyte replacement per protocol and continued to make good recovery, ambulating, tolerating cardiac diet and passing bowel movements. Upon discharge, the patient has demonstrated good progress in diet, activity, and ambulatio n. The patient has remained in stable condition and has been weaned off of oxygen to room a ir. On discharge, the pertinent physical exam findings are as follows: Neurologically withou t deficits or focal findings, alert and oriented. Cardiovascular, RRR without rub or signifi cant murmur or peripheral edema or hypoperfusion. Pulmonary , chest is clear to ausculation bilaterally and without significant wheezing or rales. Surgical wounds are clean, intact, an d dry without drainage. Upon discharge the patient was sent home with velazquez catheter inserte d and on antibiotics due to his history of strictures, patient will follow-up with Urologist at home to have velazquez removed within the following days. The patient's medications at discharge have been tailored to current hemodynamics. It is an ticipated that the majority of their pre-op medications will be reinstated as an out-patient at a later date. Coumadin was restarted with INR goal of 2.5-3.0, patient will be on Coumad in indefinitely and will be followed by PCP. Diuretics and potassium supplementation have be en continued for a limited course at discharge to facilitate return to baseline weight. Patient is medically stable and suitable to be discharged on 03/14/2014. Past Medical History Diagnosis Date Hypertension Hyperlipidemia COPD (chronic obstructive pulmonary disease) Diabetes mellitus type II GERD (gastroesophageal reflux disease) Atrial fibrillation Coronary artery disease Aortic valve disease 03/10/14 Surgery to replace valve Past Surgical History Procedure Laterality Date Coronary artery bypass graft 01/09/1996 Pacemaker insertion Tonsillectomy Colonoscopy Hernia repair INGUINAL HERNIA X 4 Cardiac surgery Unlisted procedure arthroscopy total Rt. hip Hardware removal pacemaker,titanium alloy mitral valve ,metal in Rt. hip Cataract extraction Rt. eye Eye surgery Rt. eye retina re-attachment Spine surgery L4 & 5 x 2 Cardiac catheterization Rotator cuff repair Lt. shoulder Aortic valve replacement redo N/A 03/10/2014 Procedure: AORTIC VALVE - REPLACEMENT - REDO; Surgeon: Timothy Whitaker MD; Location: [facility] MAIN OR; Service: Cardiac; Laterality: N/A; Cystostomy w/ bladder dilation N/A 03/10/2014 Procedure: CYSTOSCOPY - DILATATION; Surgeon: Timothy Whitaker MD; Location: [facility] MAIN OR ; Service: Cardiac; Laterality: N/A; Allergies Allergen Reactions Metoprolol Swelling Lips swell No prescriptions prior to admission DISCHARGE EXAM Vital Signs: BP 123/59 | Pulse 60 | Temp(Src) 98.1 F (36.7 C) (Oral) | Resp 20 | Ht 1.854 m (6' 1") | Wt 118.8 kg (261 lb 14.5 oz) | BMI 34.56 kg/m2 | SpO2 92% Physical Examination: Constitutional: Alert and oriented to person, place, and time. HEENT: Neck supple, no JVD, non icteric sclera. Cardiovascular: Heart sounds normal, and intact distal pulses. Exam reveals no gallop and n o friction rub. No murmur heard. Pulmonary/Chest: Effort normal and breath sounds normal. No stridor. No respiratory distres s. no wheezes. no rales. exhibits no tenderness. Incision: C/D/I, sternum stable Abdominal: Soft. Bowel sounds are normal. exhibits no distension and no mass. There is no t enderness. There is no rebound and no guarding. Extremeties/Musculoskeletal: Normal range of motion.exhibits no tenderness. Neurological: Alert and oriented to person, place, and time.No cranial nerve deficit. Exhib its normal muscle tone. Coordination normal. Skin: Skin is warm and dry. No rash noted. No erythema. No pallor. Psychiatric: Has a normal mood and affect. Behavior is normal. Judgment normal. DATA Platelets: Lab Results Component Value Date PLT 126* 03/14/2014 Hemoglobin/Hematocrit: Lab Results Component Value Date HGB 8.8* 03/14/2014 HGB 8.5* 03/10/2014 HCT 26.3* 03/14/2014 HCT 25* 03/10/2014 Potassium: Lab Results Component Value Date K 5.1* 03/14/2014 BUN/Creatinine: Lab Results Component Value Date BUN 24 03/14/2014 CREATININE 1.12 03/14/2014 Magnesium: Lab Results Component Value Date MG 2.3 03/14/2014 PT/INR: Lab Results Component Value Date INR 1.3 03/14/2014 PTT: Lab Results Component Value Date APTT 28 03/10/2014 [APTT HgBA1c: Lab Results Component Value Date HGBA1C 5.4 03/11/2014 LABGLYC 108 03/11/2014 PLAN 1. Patient is discharged to 03/14/2014. 2. Education: a. education regarding incision precautions. He/She was instructed to take showers using o nly soap and water on the incisions. The patient was encouraged to contact us in case he/she developed high fever, discharge from his/her wounds, or experience same symptoms prior to s urgery. The patient was also advised not to drive for 4 weeks. Disposition: Home Condition: Stable Code Status: Prior Discharge Instructions Ambulatory referral to Anticoagulation Monitoring Referral Priority: Routine Referral Type: Consultation Referral Reason: Specialty Services Required Requested Specialty: Anticoagulation Number of Visits Requested: 1 Follow up: Med Lorenzana MD [facility] [address] [facility] [address] On 03/18/2014 Medication List START taking these medications enoxaparin 40 MG/0.4ML Soln QTY: 14 Doses Refills: 1 Commonly known as: LOVENOX Inject 0.4 mLs into the skin every 12 (twelve) hours. oxybutynin 10 MG 24 hr tablet QTY: 15 tablet Refills: 0 Commonly known as: DITROPAN-XL Take 1 tablet by mouth daily. oxyCODONE 5 MG immediate release tablet QTY: 30 tablet Refills: 0 Commonly known as: ROXICODONE Take 1 tablet by mouth every 4 (four) hours as needed for Pain (for pain 3 to 4). sulfamethoxazole-trimethoprim 800-160 MG per tablet QTY: 6 tablet Refills: 0 Commonly known as: BACTRIM DS Take 1 tablet by mouth daily. CONTINUE taking these medications aspirin 81 MG EC tablet Refills: 0 carvedilol 3.125 MG tablet Refills: 0 Commonly known as: COREG Chromium-Cinnamon 200-1000 MCG-MG Caps Refills: 0 EQL CENTRAL-ROSAMARIA SELECT PO Refills: 0 fluticasone-salmeterol 250-50 MCG/DOSE Refills: 0 Commonly known as: ADVAIR furosemide 80 MG tablet Refills: 0 Commonly known as: LASIX GLUCOSAMINE 1500 COMPLEX PO Refills: 0 levothyroxine 150 MCG tablet Refills: 0 Commonly known as: SYNTHROID lisinopril 2.5 MG tablet Refills: 0 Commonly known as: ZESTRIL metFORMIN 500 MG tablet Refills: 0 Commonly known as: GLUCOPHAGE Nebulizer Compressor Kit Refills: 0 NITROSTAT 0.4 MG SL tablet QTY: 25 tablet Refills: 0 Generic drug: nitroGLYCERIN place 1 tablet under the tongue every 5 minutes if needed for chest pain may repeat 3 TIMES THEN GO TO ER omeprazole 20 MG capsule Refills: 0 Commonly known as: PRILOSEC potassium chloride 20 MEQ packet Refills: 0 Commonly known as: KLOR-CON pravastatin 80 MG tablet Refills: 0 Commonly known as: PRAVACHOL tiotropium 18 MCG inhalation capsule Refills: 0 Commonly known as: SPIRIVA VENTOLIN HFA 108 (90 BASE) MCG/ACT inhaler Refills: 0 Generic drug: albuterol warfarin 10 MG tablet Refills: 0 Commonly known as: COUMADIN STOP taking these medications nitrofurantoin 50 MG capsule Commonly known as: MACRODANTIN Where to Get Your Medications These are the 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 You may get the following medications from any pharmacy - enoxaparin 40 MG/0.4ML Soln - oxybutynin 10 MG 24 hr tablet - oxyCODONE 5 MG immediate release tablet - sulfamethoxazole-trimethoprim 800-160 MG per tablet Discharge took 50 minutes, to include final examination, discussion of admission, and prepa ration of prescriptions, instructions for on-going care, follow-up and documentation of disc harge summary. Andrei Lindsay PA-C 03/17/2014 Gianna schwartz in this encounter Medications at Time of [...] puffs into | 3 | 4 | 02/20/20 | | | HFA) 90 mcg/puff | the lungs every 4 | Inhaler | | 13 | 5 | | inhaler | hours as needed [...] + + documented as of this encounter Progress Notes Conversion Transaction, Provider Unknown - 03/14/2014 2:00 PM PDTFormatting of this note m ight be different from the original. Progress Notes by Nataliia Baldwin RN at 03/14/14 1400 Author: Nataliia Baldwin RN Service: (none) Author Type: Registered Nurse Filed: 03/14/14 1546 Date of Service: 03/14/141399 Status: Signed Dispatch Supervisor: Nataliia Baldwin RN (Registered Nurse) Reviewed d/c summary and medication list with pt and son. Pt had no questions or concerns. Gave pt original prescriptions. Pt has been on coumadin and lovenox before. Coumadin RN gave pt book yesterday and she reviewed today with him again. I started educating pt about Loven ox, we have no kits available, but pt stated he has been doing Lovenox before, and his is the one who gives him the injections, she knows how to do it. Pt watched post op cabgt dv d, copy given to pt. Reviewed cabg d/c precautions/care with pt, gave pt handbook. No questi ons.Per order, pt was to go home with Velazquez catherer, changed it to a leg bag. Went over ofelia e education about velazquez care, gave pt package instructions as well. Pt had no questions or c oncerns. Pt had shower today before d/c. Tele and iv removed. onver gurpreet Transaction, Provider Unknown - 03/14/2014 1:03 PM PDT Case Management by ARACELY Andrea at 03/14/14 1300 Author: ARACELY Andrea Service: (none) Author Type: Supervisor Delivery Department Filed: 03/14/14 7490 Date of Service: 03/14/14 130 Status: Signed Dispatch Supervisor: ARACELY Andrea (Supervisor Delivery Department) 03/14/14 1303 Anticipated Discharge Plan Post Acute Care Needs (Will f/u at Coumadin clinic at [facility]) Anticipated Disposition Facility Type Home Disposition: Home Transportation: Son, Chad All DC paperwork completed Patient and family in agreement with transfer Medicare important message signed and copy in chart - signed 03/14 prior to dc Celina Muniz Sathishstevan onver gurpreet Transaction, Provider Unknown - 03/14/2014 9:15 AM PDT Therapy Progress Note by KEVIN Acevedo/Justin at 03/14/14914 Author: KEVIN Acevedo/Justin Service: (none) Author Type: Occupational Therapist Filed: 03/14/14919 Date of Service: 03/14/14914 Status: Signed Dispatch Supervisor: ZAYRA Acevedo (Occupational Therapist) 03/14/14914 Plan Requires OT Follow Up Unavailable (Pt with nursing.) OT will re-attempt as census permits. onver gurpreet Transaction, Provider Unknown - 03/14/2014 8:44 AM PDT Nurse Progress Note by Larissa Alvarez RN at 03/14/14843 Author: Larissa Alvarez RN Service: (none) Author Type: Registered Nurse Filed: 03/14/14843 Date of Service: 03/14/14843 Status: Signed Dispatch Supervisor: Larissa Alvarez RN (Registered Nurse) Re-visited pt today regarding Coumadin Education. Good retention of information. Haritha Mackenzie PT - 03/14/2014 8:25 AM PDTFormatting of this note might be different from th e original. Therapy Progress Note by Haritha Jean PT at 03/14/14824 Author: Haritha Jean PT Service: (none) Author Type: Physical Therapist Filed: 03/14/14 1053 Date of Service: 03/14/14824 Status: Signed Dispatch Supervisor: Haritha L Wells, PT (Physical Therapist) 03/14/14 3331 PT Last Visit PT Received On 03/14/14 Reason for Treatment Cardiac Requires PT Follow Up Yes Follow up PT Only? No Assistance Required 1 person Recreational Therapy Technician Needed No Precautions Cardiac Precautions Sternal Other Comments Comments Patient up in recliner- patient in agreement for PT at this time- reported no pain - transfers with min assist to arise- no assist needed to sit- using heart pillow- gait 100f tx2 with 4WW walker- SOB and fatigue reported Cognition Overall Cognitive Status WFL Orientation Level Oriented Transfers Sit to/from Stand Moderate assist (to arise OR lower);Verbal instruction;Minimal assist (st eadying/contact guard) Mobility Weight Bearing Status WBAT LLE;WBAT RLE Ambulation Assistance Standby assist;Supervision;Verbal instruction;Patient appears safe Maximal Ambulation Distance (feet) [id number] Total Ambulation Distance (feet) 200ft Distance limited by? Patient's ability;Therapist/staff discretion Pattern Decreased brooks;Forward flexed;Wide base;Left dec toe clearance;Right dec toe kenzie arance;Left swing foot passes stance foot;Right swing foot passes stance foot Assistive Device Walker 4 wheeled Supine Supine-Exercise Type Ankle pumps;ABD/ADD;Heel slides Supine-Exercise Comments every commercial Seated Seated-Exercise Type Ankle pumps;Seated marching;Long arc quads;Toe raises Seated-Exercise Comments every commercial- move Modalities Modalities Other therapy Other Therapy instructions for HEP- sternal and pacing Activity Tolerance Activity Tolerance Patient limited by fatigue;Patient limited by shortness of breath (SOB) Nurse Made Aware RN aware Restraints Initially in Place No (call shanks in reach) Plan Treatment/Interventions Cardiac protocol;Continue with skilled PT services Progress Progressing toward goals PT Frequency 5-7x/wk;Once per day;Twice a day Care Duration (# of days) 7 # of days Recommendation Recommendations Return to prior living situation;Other (comment) [facility] by -[facility]) Equipment Recommended Other (Comment);None (he reported he has what he needs) B/P 128/59 P 85- pre-PT Timothy Vázquez MD - 03/14/2014 7:33 AM PDT Progress Notes by Timothy Whitaker MD at 03/14/14732 Author: Timothy Whitaker MD Service: (none) Author Type: Physician Filed: 03/14/14735 Date of Service: 03/14/14732 Status: Signed Dispatch Supervisor: Timothy Whitaker MD (Physician) [facility] Service: Cardio Thoracic Surgery Progress Note Pt: Denise Gasca AGE/SEX: 78 y.o. male ROOM: [address] [place] [address] : 1935 PCP: MED LORENZANA ADMIT DATE: 03/07/2014 TODAY'S DATE: 03/14/2014 Post-Op Day: 4 Days Post-Op Surgery/Procedure: Procedure(s) (LRB): AORTIC VALVE - REPLACEMENT - REDO (N/A) CYSTOSCOPY - DILATATION (N/A) Hospital Day/Hospital Course: LOS: 7 days SUBJECTIVE: Patient seen and examine. Good pain control, HD stable, no new issues overnight. No Abdominal pain, N/V or fever. Still feeling tired and fatigued. No dizziness or lightheadedness. Scheduled Medications: aspirin 325 mg Oral Daily with breakfast carvedilol 1.56 mg Oral BID WC docusate sodium 100 mg Oral BID enoxaparin 40 mg Subcutaneous Q12H famotidine 20 mg Oral BID Or famotidine 20 mg Intravenous BID influenza vaccine quadrivalent-split 0.5 mL Intramuscular Once Immunization insulin aspart 2-17 Units Subcutaneous TID AC insulin aspart 4 Units Subcutaneous TID AC insulin aspart 7-17 Units Subcutaneous Nightly insulin detemir 10 Units Subcutaneous Nightly levothyroxine 150 mcg Oral QAM AC magnesium hydroxide 30 mL Oral Daily omeprazole 20 mg Oral QAM AC pravastatin 80 mg Oral Nightly sodium chloride 0.9 % 10 mL Intravenous Q12H [facility] sulfamethoxazole-trimethoprim 1 tablet Oral Daily tiotropium 18 mcg Inhalation Daily warfarin 10 mg Oral Daily Continuous Infusions amiodarone infusion dexmedetomidine in NS Stopped (03/10/14 2100) nitroGLYCERIN in D5W PRN Medications acetaminophen, acetaminophen, albumin human, albuterol, aluminum-magnesium hydroxide-simeth icone, amiodarone bolus, amiodarone infusion, atropine, bisacodyl, calcium chloride, dexmede tomidine in NS, hydrALAZINE, HYDROmorphone, lactated ringers, magnesium sulfate, magnesium s ulfate, magnesium sulfate, meperidine, nitroGLYCERIN in D5W, opium-belladonna, oxyCODONE, ox yCODONE, phosphorus, potassium chloride, potassium chloride, potassium chloride potassium chloride, potassium chloride, potassium chloride, sodium chloride 0.9 %, sodium c hloride 0.9 %, sodium phosphate, sodium phosphate IVPB 20 mmol, sodium phosphate IVPB 45 mmo l Allergy: Allergies Allergen Reactions Metoprolol Swelling Lips swell OBJECTIVE: Vitals: Patient Vitals for the past 24 hrs: BP Temp Temp src Pulse Resp SpO2 03/14/14 0706 130/59 mmHg 97.7 F (36.5 C) Oral 60 18 96 % 03/14/14 0336 111/56 mmHg 97.8 F (36.6 C) Oral 62 18 97 % 03/13/14 2307 130/61 mmHg 98 F (36.7 C) Oral 60 18 98 % 03/13/14 2034 121/64 mmHg 98.2 F (36.8 C) Oral 63 18 97 % 03/13/14 1600 125/58 mmHg 97.8 F (36.6 C) Oral 60 20 98 % 03/13/14 1018 126/67 mmHg 97.4 F (36.3 C) Oral 60 16 97 % 03/13/14 0738 128/60 mmHg 97.9 F (36.6 C) Oral 60 14 96 % I&O Detailed Table: Intake/Output Summary (Last 24 hours) at 03/14/14 0733 Last data filed at 03/14/14 0337 Gross per 24 hour Intake 980 ml Output 1450 ml Net -470 ml Patient Vitals for the past 96 hrs: Weight 03/13/14 0500 118.8 kg (261 lb 14.5 oz) 03/12/14 0358 119 kg (262 lb 5.6 oz) Hemodynamics Last 24hrs: Physical Examination: Constitutional: Alert and oriented to person, place, and time. HEENT: Neck supple, no JVD, non icteric sclera. Cardiovascular: Heart sounds normal, and intact distal pulses. Exam reveals no gallop and no friction rub. No murmur heard. Pulmonary/Chest: Effort normal and breath sounds normal. No stridor. No respiratory distres s. no wheezes. no rales. exhibits no tenderness. Incision: C/D/I, sternum stable Abdominal: Soft. Bowel sounds are normal. exhibits no distension and no mass. There is no t enderness. There is no rebound and no guarding. Extremeties/Musculoskeletal: Normal range of motion.exhibits no tenderness. Neurological: Alert and oriented to person, place, and time.No cranial nerve deficit. Exh ibits normal muscle tone. Coordination normal. Skin: Skin is warm and dry. No rash noted. No erythema. No pallor. Psychiatric: Has a normal mood and affect. Behavior is normal. Judgment normal. LABS: Recent Labs Lab 03/14/1443903/13/1462903/12/1424703/10/14204903/07/14 1750 WBC 10.9 15.2* 16.0* < > 22.2* < > 8.0 HGB 8.8* 9.1* 8.9* < > 10.3* < > 10.4* HCT 26.3* 27.3* 27.5* < > 30.9* < > 32.2* PLT 126* 134* 111* < > 141* < > 168 NEUTOPHILPCT -- -- -- -- 87.9 -- 81.1 MONOPCT -- -- -- -- 3.8 -- 7.2 < > = values in this interval not displayed. Recent Labs Lab 03/14/1443903/13/1462903/12/1424703/07/14 1750 NA 129* 134* 132* < > 134* K 5.1* 4.9 4.8 < > 4.2 CL 98* 102 103 < > 100 CO2 27 27 26 < > 29 BUN 24 22 23 < > 31* CREATININE 1.12 1.09 1.16 < > 1.28 PROT -- -- -- -- 6.4 BILITOT -- -- -- -- 1.3 ALT -- -- -- -- 15 AST -- -- -- -- 26 < > = values in this interval not displayed. Phosphorus: No results found for this basename: PHOS No components found with this basename: LABALVERN, Recent Labs Lab 03/14/14 0440 03/13/14 0630 03/12/14 0248 MG 2.3 2.4 2.6* No results found for this basename: AMYLASE, in the last 168 hours Recent Labs Lab 03/10/14 1926 03/10/14 1831 03/10/14 1803 BEART 2 4* 4* Recent Labs Lab 03/14/14 0440 03/13/14 0630 03/12/14 0249 03/10/14 2050 03/10/14 0717 03/10/14 0121 APTT -- -- -- 28 67* 73* INR 1.3 1.4 1.5 1.6 1.5 -- No results found for this basename: TSH, T3FREE, FREET4, in the last 168 hours No results found for this basename: CKTOTAL, TROPONINI, TROPONINT, CKMBINDEX, in the last 168 hours PROBLEM LIST Active Problems: * No active hospital problems. * ASSESSMENT & PLAN Discharge planning Continue velazquez per urologist Ambulate Encourage IS Coumadin 10 mg po today If patient goes home today he will need bridging with lovenox TIMOTHY WHITAKER MD 03/14/2014 7:33 AM onversio n Transaction, Provider Unknown - 03/13/2014 3:55 PM PDTFormatting of this note might be di fferent from the original. Therapy Progress Note by Jesus Latham PT at 03/13/14 1824 Author: Jesus Latham PT Service: (none) Author Type: Physical Therapist Filed: 03/13/14 6840 Date of Service: 03/13/14 0144 Status: Signed Dispatch Supervisor: Jesus Latham PT (Physical Therapist) 03/13/14 6078 PT Last Visit PT Received On 03/13/14 Reason for Treatment Cardiac Requires PT Follow Up Yes Follow up PT Only? No PT Eval/Reassessment Date 03/13/14 Assistance Required 1 person Precautions Cardiac Precautions Sternal Other Comments Comments Pt seated in room with family present; pts only c/c was due to the discomfort from his velazquez catheter; pt doing well with following his sternal precautions during transfers a nd only needs occasional verbal cuing for safety techniques. Gait completed with a FWW with cues to avoid excess WBing through the UEs. Vitals at rest in sitting: HR 60, BP 125/58; vi tals post-activity: HR 68, BP 128/61. Pt able to transfer onto/off the toilet in his bathroo m and had a successful BM that helped to relieve some of his pain from his bladder/catheter. Cognition Overall Cognitive Status WFL Orientation Level Oriented Transfers Sit to/from Stand Standby assist;Verbal instruction Mobility Ambulation Assistance Standby assist Maximal Ambulation Distance (feet) 200 ft Total Ambulation Distance (feet) 200 ft Distance limited by? Therapist/staff discretion Pattern Decreased brooks Assistive Device Walker front wheeled (cues to avoid WBing through the UEs) Balance Balance (Pt steady during sitting/standing) Modalities Modalities Other therapy Other Therapy Review of sternal precautions with transfers; safe mobility techniques Activity Tolerance Activity Tolerance Patient tolerated treatment without report of fatigue Safety Devices Safety Devices in Place (Family present and call light provided) Restraints Initially in Place No Plan Treatment/Interventions Cardiac protocol;Continue per Primary PT POC Progress Progressing toward goals PT Frequency Twice a day;5-7x/wk Care Duration (# of days) 7 # of days Recommendation Recommendations Return to prior living situation;Continue acute care therapy Equipment Recommended None Rozina Jara ARNP - 03/13/2014 3:46 PM PDT Progress Notes by Rozina Davis RN at 03/13/14 1548 Author: Rozina Davis RN Service: (none) Author Type: Registered Nurse Filed: 03/13/14 1548 Date of Service: 03/13/14 154 Status: Signed Dispatch Supervisor: Rozina Davis RN (Registered Nurse) After speaking with Ariella pt's primary RN, it was noted that the patient only needs a new IV for his second IV access. Peripheral IV placed without ultrasound. GINGER Krishnan notified se cond peripheral IV now in place. Order for Midline cancelled. Barrett Bernal, Provider Unknown - 03/13/2014 12:53 PM PDTFormatting of this note might be di fferent from the original. Therapy Progress Note by ZAYRA Acosta at 03/13/14 2468 Author: ZAYRA Acosta Service: (none) Author Type: Occupational Therapist Filed: 03/13/14 8591 Date of Service: 03/13/141252 Status: Signed Dispatch Supervisor: ZAYRA Acosta (Occupational Therapist) 03/13/14 1254 Precautions Cardiac Precautions Sternal Home Environment Type of Home Home one story Home Exterior Layout 1-3 steps;Rail on R ascending (3 on front door, 2 in garage) Home Interior Layout Lives on main level with bedroom/bathroom Bathroom Shower/Tub Walk-in shower;Tub/shower unit (pt uses walk in shower) Bathroom Toilet Standard Bathroom Equipment Grab bars in shower/bath;Other (Comment) (shower has built in partial shower seat) Bathroom Accessibility Not accessible (Pt thinks it may not be accessible for larger walker) Home Equipment Walker front wheeled;Steel Plate Caulker Additional Comments Pt stated hey will leave in catheter for 2 weeks. 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 Making bed;Washing dishes;Taking out trash Employment Retired for age Leisure Hobbies-yes (Comment) (photography) Comments PT has help with the lawn ADL Where Eating Assessed Sitting;Chair/Table Eating Assistance Independent Grooming Assistance Supervision;Verbal instruction;Visual instruction LE Dressing Assistance Visual instruction;Standby assist (for socks may need min-mod (A) for pants ) Functional Assistance Supervision;Moderate assist;Standby assist (Pt supervision or stand by asist with transfers) Additional Comments Pt stated he will be using catheter for 2 weeks but it was causing incr eased pain when he moved as did not want to get out of chair to completed activities. Pt com pleted AE and adaptive ADL techniques education verbally and with handout and he verbally st ated his understanding. Pt participated in LB dressing sock and able to reach feet crossing legs while sitting with increased difficulty but adhering to sternal precautions, completed eating in lunch while sitting, and completed grooming sitting in chair combing his hair with 2-3 VC needed for precautions. Pt may need mod(A) to help with dressing d/t precautions. Pain Screening Currently in Pain Yes Pain Assessment 0-10 Pain Score 8 (when moving with catheter, ) Pain Intervention(s) RN Notified Vision-Basic Assessment Current Vision Wears glasses Tracking Able to track stimulus in all quads without difficulty Acuity Able to read employee name badge without difficulty Vision - Complex Assessment Ocular Range of Motion WFL Cognition Overall Cognitive Status WFL Orientation Level Oriented Sensation Light Touch No apparent deficits Perception Inattention/Neglect Appears intact RUE Assessment RUE Assessment X (WFL within precautions) LUE Assessment LUE Assessment X (WFL within precautions) Hand Function Gross Grasp Functional Functional Gross Grasp Able to grasp objects without difficulty Coordination Functional Assessment Assessment Decreased ADL status;Decreased UE ROM;Decreased UE strength;Decreased endurance; Decreased high-level ADLs;Decreased self-care trans Prognosis Good;With family Goal Formulation Patient Further Evaluation Goals Patient Will Tolerate Further ADL Treatment Within 1-2 sessions Functional Transfer Goals Pt Will Transfer To Bedside Commode Supine/sitting up in bed;With good judgment/safety;With safety/supervision;Other (comment);Mod independently (Maintaining sternal precautions) Pt Will Transfer To Toilet Maintaining sternal precautions;With good judgment/safety;With s afety/supervision;Mod independently Arm Goals Pt Will Perform AROM B UE;20 reps;Attending to sternal precautions;Without complain/sign of pain 03/13/14 1253 Further Evaluation Goals Patient Will Tolerate Further ADL Treatment Within 1-2 sessions Functional Transfer Goals Pt Will Transfer To Bedside Commode Supine/sitting up in bed;With good judgment/safety;With safety/supervision;Other (comment);Mod independently (Maintaining sternal precautions) Pt Will Transfer To Toilet Maintaining sternal precautions;With good judgment/safety;With s afety/supervision;Mod independently Arm Goals Pt Will Perform AROM B UE;20 reps;Attending to sternal precautions;Without complain/sign of pain Plan Treatment Interventions ADL retraining;IADL retraining;Functional transfer training;Functio nal dynamic activities;AROM;Therapeutic exercises;Patient/Family training;Equipment eval/edu cation;Compensatory technique education Progress Progressing toward goals OT Frequency 5x/wk;QD;BID Requires OT Follow Up Yes Recommendation Recommendation Short-term skilled OT;Other (comment) (Home with family) Equipment Recommended Shower chair without back;Elastic shoe laces;Sponge long handled;[facility] Education Completed: Education Topic: AE and adaptive ADL strategies Completed with: Patient, Spouse Completed by: Written Material, Verbal Education, Demonstration Response to Education: Stated Understanding, Returned Demonstration Occupational Therapy Plan: Continue OT treatment per POC The following recommendations are made for d/c planning at this time: Return to home w/ family support Barriers to d/c at this time include: Equipment needs: AE Physical deficits impacting functional independence Self-care deficits impacting functional independence Resolutions to Barriers: Instruction in use of adaptive equipment Instruction in use of adaptive device(s) Patient and/or family education compensatory strategies for daily activities onver gurpreet Transaction, Provider Unknown - 03/13/2014 10:23 AM PDT Progress Notes by Evelina Plata RN at 03/13/14 1023 Author: Evelina Plata RN Service: (none) Author Type: Registered Nurse Filed: 03/13/14 1025 Date of Service: 03/13/14 102 Status: Signed Dispatch Supervisor: Evelina Plata RN (Registered Nurse) Patient transferred to room 4465. Report given to Ariella MILES. Tele notified. Nil complaint s voiced at time of transfer. Belongings with patient. onver gurpreet Transaction, Provider Unknown - 03/13/2014 9:10 AM PDT Therapy Progress Note by Med Berger PT at 03/13/14 0910 Author: Med Berger PT Service: (none) Author Type: Physical Therapist Filed: 03/13/14 1127 Date of Service: 03/13/14909 Status: Signed Dispatch Supervisor: Med Berger PT (Physical Therapist) 03/13/14909 PT Last Visit PT Received On 03/13/14 Reason for Treatment Cardiac Requires PT Follow Up Yes Assistance Required 1 person Precautions Cardiac Precautions Sternal Other Comments Comments Pt was able to maintain balance for gait training without an AD. He did not exhibi t the same lightheadedness that limited him yesterday. Pt also improved his independence wit h bed mobility. Pt still needs stair training. Vitals: 128/66 pre, 148/65 post, 60-68 bpm, o n 2L. Cognition Overall Cognitive Status WFL Orientation Level Oriented Bed Mobility Supine to Sit Standby assist Sit to Supine Standby assist;Verbal instruction Transfers Sit to/from Stand Standby assist;Verbal instruction (multiple attempts required) Mobility Ambulation Assistance Standby assist Maximal Ambulation Distance (feet) 200 Total Ambulation Distance (feet) 200 Distance limited by? Patient's ability Pattern Decreased brooks (Increased lateral sway) Assistive Device None Stairs Assistance (Training needed) Activity Tolerance Activity Tolerance Patient tolerated treatment without report of fatigue (Pt reported high pain from velazquez catheter) Safety Devices Safety Devices in Place (RN present) Restraints Initially in Place No Plan Treatment/Interventions Continue per Primary PT POC Progress Progressing toward goals Recommendation Recommendations Return to prior living situation (Son plans to stay with him) Equipment Recommended None Neftali Williamson PA - 03/13/2014 7:51 AM PDTFormatting of this note might be different from the origi nal. Progress Notes by Andrei Lindsay PA-C at 03/13/14750 Author: Andrei Lindsay PA-C Service: Cardiac, Thoracic, and Vascular Surgery Author Type: Physician Head Start Coordinator - Certified Filed: 03/13/147 Date of Service: 03/13/14750 Status: Attested Dispatch Supervisor: Andrei Lindsay PA-C (Physician Head Start Coordinator - Certified) Cosigner: Timothy Whitaker MD at 03/14/147 Attestation signed by Timothy Whitaker MD at 03/14/14 968 I have examined Denise Gasca, reviewed the notes, assessments, and/or procedures perfor med by Andrei Lindsay PA-C, I concur with his documentation of Denise Gasca. Cardiothoracic Surgery Progress Note Date/Time:03/13/2014 7:51 AM Provider: Andrei Lindsay PA-C Hospital Day: LOS: 6 days Surgery/Procedure: Procedure(s) (LRB): AORTIC VALVE - REPLACEMENT - REDO (N/A) CYSTOSCOPY - DILATATION (N/A) Post-Op Day: 3 Days Post-Op PROBLEM LIST Active Problems: * No active hospital problems. * SUBJECTIVE: Patient Summary Overnight: - HD Stable overnight, no new events. - Bowel Movements reports yesterday - Blood glucose this AM 94 - 2 L O2 NC OBJECTIVE: Vital Signs: BP 128/60 | Pulse 60 | Temp(Src) 97.9 F (36.6 C) (Oral) | Resp 14 | Ht 1.854 m (6' 1") | Wt 118.8 kg (261 lb 14.5 oz) | BMI 34.56 kg/m2 | SpO2 96% I&O Yesterday: 03/12 700 - 03/13 659 In: 1070 [P.O.:820] Out: 1023 [Urine:933] Intake/Output Summary (Last 24 hours) at 03/13/14 0751 Last data filed at 03/13/14 0500 Gross per 24 hour Intake 1070 ml Output 1023 ml Net 47 ml 03/12 700 - 03/13 659 In: 1070 [P.O.:820] Out: 1023 [Urine:933] Physical Exam: GENERAL: A&Ox 3, in no acute distress. NEURO: No facial asymmetry, speech normal and non pressured. Normal range of motion in all extremities HEENT: PERRL, EOMI; Sclerae clear, nonicteric; Oral Mucosa moist and pink with no ulceratio ns/lesions. NECK: No JVD noted, carotid upstrokes brisk without bruits. No thyromegaly. HEART: RRR with normal S1 and S2 heart sounds. No murmur, rub, heave, or gallop noted. LUNGS: Lungs are clear to auscultation without wheezes, rhonchi, rales. ABDOMEN: Soft, nondistended, nontender to palpation with no notable masses. EXTREMITIES: mild edema; Bilateral radial, dorsalis pedis, and posterior tibialis pulses 2+ . No clubbing or cyanosis noted. Incision: clean, dry, and intact. No erythema, discharge, or warmth noted around the incisi on site. DATA: Scheduled Medications albuterol 6 puff Ventilator Q4H aspirin 324 mg Per NG tube Nightly Or aspirin 325 mg Oral Nightly Or aspirin 300 mg Rectal Nightly aspirin 325 mg Oral Daily with breakfast carvedilol 1.56 mg Oral BID WC docusate sodium 100 mg Oral BID famotidine 20 mg Oral BID Or famotidine 20 mg Intravenous BID influenza vaccine quadrivalent-split 0.5 mL Intramuscular Once Immunization insulin aspart 2-17 Units Subcutaneous TID AC insulin aspart 4 Units Subcutaneous TID AC insulin aspart 7-17 Units Subcutaneous Nightly insulin detemir 10 Units Subcutaneous Nightly levothyroxine 150 mcg Oral QAM AC levothyroxine 150 mcg Oral QAM AC lidocaine buffered 1% 0.5 mL Intradermal Once magnesium hydroxide 30 mL Oral Daily omeprazole 20 mg Oral QAM AC pravastatin 80 mg Oral Nightly pravastatin 80 mg Oral Nightly sodium chloride 0.9 % 10 mL Intravenous Q12H [facility] sulfamethoxazole-trimethoprim 1 tablet Oral Daily tiotropium 18 mcg Inhalation Daily tiotropium 18 mcg Inhalation Daily warfarin 5 mg Oral Daily Continuous Infusions amiodarone infusion amiodarone infusion dexmedetomidine in NS Stopped (03/10/14 2100) nitroGLYCERIN in D5W PRN Medications acetaminophen, acetaminophen, acetaminophen, acetaminophen, acetaminophen, albumin human, a lbuterol, albuterol, aluminum-magnesium hydroxide-simethicone, amiodarone bolus, amiodarone bolus, amiodarone infusion, amiodarone infusion, atropine, bisacodyl, calcium chloride, dexm edetomidine in NS, hydrALAZINE, HYDROmorphone, lactated ringers, magnesium sulfate, magnesiu m sulfate, magnesium sulfate, magnesium sulfate, meperidine, nitroGLYCERIN in D5W oxyCODONE, oxyCODONE, phosphorus, potassium chloride, potassium chloride, potassium chlorid e, potassium chloride, potassium chloride, potassium chloride, potassium chloride, sodium ch loride 0.9 %, sodium chloride 0.9 %, sodium phosphate, sodium phosphate IVPB 20 mmol, sodium phosphate IVPB 45 mmol LABS: CBC: Lab Results Component Value Date WBC 15.2* 03/13/2014 RBC 2.80* 03/13/2014 HGB 9.1* 03/13/2014 HGB 8.5* 03/10/2014 HCT 27.3* 03/13/2014 HCT 25* 03/10/2014 MCV 97.4 03/13/2014 MCH 32.6 03/13/2014 MCHC 33.4 03/13/2014 RDW 58.6* 03/13/2014 PLT 134* 03/13/2014 MPV 8.3 03/13/2014 DIFFTYPE MANUAL 03/12/2014 BMP: Lab Results Component Value Date NA 134* 03/13/2014 K 4.9 03/13/2014 CL 102 03/13/2014 CO2 27 03/13/2014 ANIONGAP 10 03/13/2014 GLUF 94 03/13/2014 BUN 22 03/13/2014 CREATININE 1.09 03/13/2014 BCR 20 03/13/2014 CA 8.7 03/13/2014 EGFR >60 03/13/2014 PT/INR: Lab Results Component Value Date INR 1.4 03/13/2014 ASSESSMENT & PLAN: Transfer to floor D/C planning INR 1.4, increase coumadin to 10mg. INR goal 2.5 - 3.0 Speaking w/ patient's urologist about concerns with catheter. Leave Velazquez in for now and on transfer Lovenox 40mg SC Q12 until theraputic Ambulate as tolerated Encourage Incentive Spirometry Bowel Care The patient has been seen and the plan discussed with the attending provider, Dr. Whitaker. Andrei Lindsay PA-C 03/13/2014 onversio n Transaction, Provider Unknown - 03/13/2014 5:18 AM PDTFormatting of this note might be di fferent from the original. Progress Notes by Newton Mai RPH at 03/13/14 05 Author: Newton Mai RPH Service: (none) Author Type: Pharmacist Filed: 03/13/14517 Date of Service: 03/13/14517 Status: Signed Dispatch Supervisor: Newton Mai RPH (Pharmacist) Note ccl 72ml/min meds reviewed pharmacy will follow rdc 0518 onver gurpreet Transaction, Provider Unknown - 03/12/2014 2:10 PM PDT Therapy Progress Note by Med Berger PT at 03/12/14 1410 Author: Med Begrer PT Service: (none) Author Type: Physical Therapist Filed: 03/12/14 1441 Date of Service: 03/12/14 1410 Status: Signed Dispatch Supervisor: Med Berger PT (Physical Therapist) 03/12/14 1410 PT Last Visit PT Received On 03/12/14 Reason for Treatment Cardiac Requires PT Follow Up Yes Assistance Required 1 person Precautions Cardiac Precautions Sternal Other Comments Comments Pt reported dizziness while ambulating. Pt said he did not feel that he was going to faint. However, his eyes started rolling back, so PT had pt sit in wheelchair and STAGE SET UP WORKER whe eled pt back to his room. BP was 132/60 sitting prior to activity and 145/63 after activity. HR was 62-69 bpm. Cognition Overall Cognitive Status WFL Orientation Level Oriented Transfers Sit to/from Stand Minimal assist (steadying/contact guard);Verbal instruction (multiple trials) Mobility Ambulation Assistance Minimal assist Maximal Ambulation Distance (feet) 100 Total Ambulation Distance (feet) 100 Distance limited by? Patient's ability Pattern Decreased brooks;Right swing foot doesn't pass stance foot;Left swing foot doesn't pass stance foot Assistive Device (wheelchair) Activity Tolerance Activity Tolerance (lightheadedness) Nurse Made Aware session summary Safety Devices Safety Devices in Place (son present) Restraints Initially in Place No Plan Treatment/Interventions Continue per Primary PT POC Progress Progressing toward goals Recommendation Recommendations Return to prior living situation (Son plans to stay with him following DC) Equipment Recommended (To be determined) onver gurpreet Transaction, Provider Unknown - 03/12/2014 1:13 PM PDT Nurse Progress Note by Larissa Alvarez RN at 03/12/14 1313 Author: Larissa Alvarez RN Service: (none) Author Type: Registered Nurse Filed: 03/12/14 1317 Date of Service: 03/12/14 1313 Status: Signed Dispatch Supervisor: Larissa Alvarez RN (Registered Nurse) Visited patient for coumadin education. They have been on coumadin prior to this hospitaliz ation and pcp in [place] manages their dosing. Informed of today's inr. They have no quest ions regarding coumadin at this time. Refused Coumadin Education booklet. onver gurpreet Bowersaction, Provider Unknown - 03/12/2014 10:08 AM PDT Case Management by ARACELY Espinal at 03/12/14 1008 Author: ARACELY Espinal Service: (none) Author Type: Supervisor Delivery Department Filed: 03/12/14 1010 Date of Service: 03/12/14 1008 Status: Addendum Dispatch Supervisor: ARACELY Espinal (Supervisor Delivery Department) Related Notes: Original Note by ARACELY Espinal (Supervisor Delivery Department) filed at 03/12/14 1009 03/12/14 1005 Discharge Planning Evaluation Admitting Diagnosis POD 1 from CABG Living Arrangements Spouse/significant other Support Systems Spouse/significant other Type of Residence Private residence House type House-1 story Steps to enter 3 Bathrooms on 1st Floor 1-Full Independent with ADL's Yes Independent with Mobility Yes Home Care Services No Caregiver after Discharge Yes Relationship to Patient Mental Status Oriented Prior functional status Independent prior to admit. will assist after d/c. Anticipated Disposition Facility Type (Plan home with assist from ) Pt is a 78 y.o., male POD 1 from CABG. Did not meet with pt. Reviewed chart and PT notes. Pt doing very well and plan is home with to assist. Pt is already walking 220 feet P OD 1 so is progressing very well. No d/c needs identified. CM to remain available to assist with d/c planning as needed. Patient's PCP is: MED LORENZANA Patient's insurance:Medicare Coverage concerns: Medication coverage/concerns: Juanito'leticia Bedside Delivery: Community resources utilized / needed: Assistance in transportation: Identification of any specific education / training: Barriers to Discharge / Alternative housing needed: Anticipated DCP: Plan home with BRET HUBER onver gurpreet Bernal Provider Unknown - 03/12/2014 8:30 AM PDT Therapy Progress Note by Med Berger PT at 03/12/14829 Author: Med Berger PT Service: (none) Author Type: Physical Therapist Filed: 03/12/14 09 Date of Service: 03/12/14829 Status: Signed Dispatch Supervisor: Med Berger PT (Physical Therapist) 03/12/14829 PT Last Visit PT Received On 03/12/14 Reason for Treatment Cardiac Requires PT Follow Up Yes Assistance Required 1 person Precautions Cardiac Precautions Sternal Other Comments Comments Pt demonstrated vast improvement in independence with transfers and bed mobility a s well as improved endurance. Pt was educated regarding breathing, transfer and bed mobility techniques with demo, sternal precautions. Pt verbalized understanding and he returned demo nstration according to instruction given. [id number] was the most difficult for him. Pt m anaged breathing well. Vitals were stable: 158/72 pre, 145/65 post, 61-65 bpm, 92-100% on 4L . Cognition Overall Cognitive Status WFL Orientation Level Oriented Bed Mobility Supine to Sit Min assist (1 LE OOB);Verbal instruction;Visual instruction Sit to Supine Mod assist (BLEs into bed or trunk to lower);Verbal instruction;Visual instru ction Scooting Standby assist Transfers Sit to/from Stand Minimal assist (steadying/contact guard);Standby assist;Verbal instructio n;Visual instruction Mobility Ambulation Assistance Minimal assist Maximal Ambulation Distance (feet) 220 Total Ambulation Distance (feet) 220 Distance limited by? Patient's ability Pattern Decreased brooks;Right swing foot doesn't pass stance foot;Left swing foot doesn't pass stance foot Assistive Device (wheelchair) Activity Tolerance Activity Tolerance Patient tolerated treatment without report of fatigue (0/10 pain) Nurse Made Aware session summary Safety Devices Safety Devices in Place (call light) Restraints Initially in Place No Plan Treatment/Interventions Continue per Primary PT POC Progress Progressing toward goals Recommendation Recommendations Return to prior living situation Equipment Recommended (To be determined) Neftali Williamson PA - 03/12/2014 5:51 AM PDTFormatting of this note might be different from the origi nal. Progress Notes by Andrei Lindsay PA-C at 03/12/14 0551 Author: Andrei Lindsay PA-C Service: Cardiac, Thoracic, and Vascular Surgery Author Type: Physician Head Start Coordinator - Certified Filed: 03/12/14 1548 Date of Service: 03/12/14550 Status: Attested Addendum Dispatch Supervisor: Andrei Lindsay PA-C (Physician Head Start Coordinator - Certified) Related Notes: Original Note by Andrei Lindsay PA-C (Physician Head Start Coordinator - Certified) file d at 03/12/14 1536 Cosigner: Timothy Whitaker MD at 03/14/14 1246 Attestation signed by Timothy Whitaker MD at 03/14/14 1246 I have examined Denise Gasca, reviewed the notes, assessments, and/or procedures perfor med by Andrei Lindsay PA-C, I concur with his documentation of Denise Gasca. Cardiothoracic Surgery Progress Note Date/Time:03/12/2014 5:51 AM Provider: Andrei Lindsay PA-C Hospital Day: LOS: 5 days Surgery/Procedure: Procedure(s) (LRB): AORTIC VALVE - REPLACEMENT - REDO (N/A) CYSTOSCOPY - DILATATION (N/A) Post-Op Day: 2 Days Post-Op PROBLEM LIST Active Problems: * No active hospital problems. * SUBJECTIVE: Patient Summary Overnight: - HD Stable overnight, slept using home bipap. On 4L NC currently. V paced @ 60bpm - CT o/p 100mL - Bowel Movement reported this AM - Blood glucose this AM 142 - Pain is well controlled - Patient ambulates 1-2 person assist - Appetite is good. OBJECTIVE: Vital Signs: BP 131/62 | Pulse 60 | Temp(Src) 97.8 F (36.6 C) (Axillary) | Resp 20 | Ht 1.854 m (6' 1") | Wt 119 kg (262 lb 5.6 oz) | BMI 34.62 kg/m2 | SpO2 83% I&O Yesterday: 03/11 700 - 03/12 0659 In: 2837.3 [P.O.:1794; I.V.:870.3] Out: 852 [Urine:662] Intake/Output Summary (Last 24 hours) at 03/12/14 0551 Last data filed at 03/12/14 0300 Gross per 24 hour Intake 5107.3 ml Output 783 ml Net 4324.3 ml I/O this shift: In: 360 [P.O.:360] Out: 222 [Urine:222] 03/11 700 - 03/12 0659 In: 2687.3 [P.O.:1644; I.V.:870.3] Out: 712 [Urine:622] Physical Exam: GENERAL: A&Ox 3, in no acute distress. NEURO: No facial asymmetry, speech normal and non pressured. Normal range of motion in all extremities HEENT: PERRL, EOMI; Sclerae clear, nonicteric; Oral Mucosa moist and pink with no ulceratio ns/lesions. NECK: No JVD noted, carotid upstrokes brisk without bruits. No thyromegaly. HEART: RRR with normal S1 and S2 heart sounds. No murmur, rub, heave, or gallop noted. LUNGS: Lungs are clear to auscultation without wheezes, rhonchi, rales. ABDOMEN: Soft, nondistended, nontender to palpation with no notable masses. EXTREMITIES: 2/3 edema; Bilateral radial, dorsalis pedis, and posterior tibialis pulses 1+. No clubbing or cyanosis noted. Incision: clean, dry, and intact. No erythema, discharge, or warmth noted around the incisi on site. LINES/TUBES: Chest tubes clean dry and intact. DATA: Scheduled Medications albuterol 6 puff Ventilator Q4H aspirin 324 mg Per NG tube Nightly Or aspirin 325 mg Oral Nightly Or aspirin 300 mg Rectal Nightly docusate sodium 100 mg Oral BID famotidine 20 mg Oral BID Or famotidine 20 mg Intravenous BID influenza vaccine quadrivalent-split 0.5 mL Intramuscular Once Immunization insulin aspart 2-17 Units Subcutaneous TID AC insulin aspart 4 Units Subcutaneous TID AC insulin aspart 7-17 Units Subcutaneous Nightly insulin detemir 10 Units Subcutaneous Nightly levothyroxine 150 mcg Oral QAM AC magnesium hydroxide 30 mL Oral Daily pravastatin 80 mg Oral Nightly tiotropium 18 mcg Inhalation Daily warfarin 5 mg Oral Daily Continuous Infusions dexmedetomidine in NS Stopped (03/10/14 2100) EPINEPHrine in D5W 32 mcg/mL 1 mcg/min (03/11/14 0830) nitroGLYCERIN in D5W phenylephrine in D5W 320 mcg/mL Stopped (03/11/14 1200) sodium chloride (IV) 50 mL/hr (03/10/14 2254) sodium chloride (IV) PRN Medications acetaminophen, acetaminophen, acetaminophen, albuterol, aluminum-magnesium hydroxide-simeth icone, atropine, calcium chloride, dexmedetomidine in NS, dextrose, dextrose, hydrALAZINE, H YDROmorphone, magnesium sulfate, meperidine, nitroGLYCERIN in D5W, ondansetron, oxyCODONE, o xyCODONE, potassium chloride LABS: CBC: Lab Results Component Value Date WBC 16.0* 03/12/2014 RBC 2.77* 03/12/2014 HGB 8.9* 03/12/2014 HGB 8.5* 03/10/2014 HCT 27.5* 03/12/2014 HCT 25* 03/10/2014 MCV 99.2 03/12/2014 MCH 32.0 03/12/2014 MCHC 32.3 03/12/2014 RDW 56.4* 03/12/2014 PLT 111* 03/12/2014 MPV 8.7 03/12/2014 DIFFTYPE MANUAL 03/12/2014 BMP: Lab Results Component Value Date NA 132* 03/12/2014 K 4.8 03/12/2014 CL 103 03/12/2014 CO2 26 03/12/2014 ANIONGAP 8 03/12/2014 GLUF 142* 03/12/2014 BUN 23 03/12/2014 CREATININE 1.16 03/12/2014 BCR 20 03/12/2014 CA 8.8 03/12/2014 EGFR >60 03/12/2014 ASSESSMENT & PLAN: Velazquez remains in per Dr. Beltran, will remove in office in 10-14 days time. Start Septra while velazquez is in Chest tube out Transfer to the floor Ambulate as tolerated Encourage Incentive Spirometry Bowel Care The patient has been seen and the plan discussed with the attending provider, Dr. Whitaker. Andrei Lindsay PA-C 03/12/2014 onversio n Transaction, Provider Unknown - 03/11/2014 2:40 PM PDTFormatting of this note might be di fferent from the original. Therapy Progress Note by Sam Lemon, PT at 03/11/14 1440 Author: Sam Lemon PT Service: (none) Author Type: Physical Therapist Filed: 03/11/14 8611 Date of Service: 03/11/14 1440 Status: Signed Dispatch Supervisor: Sam eLmon PT (Physical Therapist) 03/11/14 1440 PT Last Visit PT Received On 03/11/14 Reason for Treatment Cardiac Requires PT Follow Up Yes Follow up PT Only? No PT Eval/Reassessment Date 03/11/14 Assistance Required 1 person;2 person Precautions Cardiac Precautions Sternal Plan Treatment/Interventions Cardiac protocol PT Frequency Twice a day;Once per day Care Duration (# of days) 7 # of days Home Environment Type of Home Home one story Home Exterior Layout 1-3 steps (3) Home Interior Layout Lives on main level with bedroom/bathroom Home Equipment None Recommendation Recommendations Continue acute care therapy (anticipate return to home setting) Equipment Recommended (anticipate none) Prior Function Level of Nance Independent with functional mobility;Independent with ADLs;Independe nt with IADLs Lives With Spouse ADL Assistance Independent Home ADL's Independent RUE Assessment RUE Assessment WFL LUE Assessment LUE Assessment WFL RLE Assessment RLE Assessment WFL LLE Assessment LLE Assessment WFL Cognition Overall Cognitive Status WFL Orientation Level Oriented Sensation Light Touch No apparent deficits Perception Inattention/Neglect Appears intact Assessment of Patient Status Assessment of Patient Status Precautions Prognosis Should progress with skilled therapy intervention 03/11/14 1440 PT Last Visit PT Received On 03/11/14 Reason for Treatment Cardiac Requires PT Follow Up Yes Follow up PT Only? No PT Eval/Reassessment Date 03/11/14 Assistance Required 1 person;2 person Precautions Cardiac Precautions Sternal Other Comments Comments Pt. is s/p AVR. Pt. is very pleasant and cooperative. Pt. exhibits good strength throughout. VS appear stable throughout upright/mobility progression. Pt. is on 4L w/ sat s. >95%. Pt. is able to transfer to/from standing w/ min/modA. Ambulated approx. [address] w/ minAx2 for IV line support. Pt. tolerated ambulation well. Pt. educated in PT POC as well as detailed review of sternal precautions. Pt. had MVR in 1995. Cognition Overall Cognitive Status WFL Orientation Level Oriented Bed Mobility Sit to Supine Max assist (BLEs into bed & trunk to lower);x 1 person;x 2 person Scooting Minimal assist Transfers Sit to/from Stand Minimal assist (steadying/contact guard);Moderate assist (to arise OR low er) Bed to/from Chair Minimal assist (steadying/contact guard) Mobility Ambulation Assistance Minimal assist;X1;X2 Maximal Ambulation Distance (feet) 80 Total Ambulation Distance (feet) 80 Distance limited by? Patient's ability Pattern Decreased brooks;WFL Assistive Device (PROPERTY SPECIALIST on w/c) Balance Balance (Pt. is steady throughout, able to attain/maintain midline) Activity Tolerance Activity Tolerance Patient tolerated treatment without report of fatigue Nurse Made Aware yes Plan Treatment/Interventions Cardiac protocol PT Frequency Twice a day;Once per day Care Duration (# of days) 7 # of days Recommendation Recommendations Continue acute care therapy (anticipate return to home setting) Equipment Recommended (anticipate none) Neftali Williamson PA - 03/11/2014 9:10 AM PDTFormatting of this note might be different from the origi nal. Progress Notes by Andrei Lindsay PA-C at 03/11/14 0910 Author: Andrei Lindsay PA-C Service: Cardiac, Thoracic, and Vascular Surgery Author Type: Physician Head Start Coordinator - Certified Filed: 03/11/14 1323 Date of Service: 03/11/14 0910 Status: Attested Dispatch Supervisor: Andrei Lindsay PA-C (Physician Head Start Coordinator - Certified) Cosigner: Timothy Whitaker MD at 03/12/14 1400 Attestation signed by Timothy Whitaker MD at 03/12/14 1400 I have examined Denise Gasca, reviewed the notes, assessments, and/or procedures perfor med by Andrei Lindsay PA-C, I concur with his documentation of Denise Gasca. Cardiothoracic Surgery Progress Note Date/Time:03/11/2014 9:10 AM Provider: Andrei Lindsay PA-C Hospital Day: LOS: 4 days Surgery/Procedure: Procedure(s) (LRB): AORTIC VALVE - REPLACEMENT - REDO (N/A) CYSTOSCOPY - DILATATION (N/A) Post-Op Day: 1 Day Post-Op PROBLEM LIST Active Problems: * No active hospital problems. * SUBJECTIVE: Patient Summary Overnight: Extubated @ 2305 - HD Stable on 4 LO2 NC, in NSR. Tolerating gtt of 20 of Octavio and 2 of EPI. - CT o/p 180mL - Blood glucose this AM 147 - Pain is well controlled OBJECTIVE: Vital Signs: BP 109/59 | Pulse 61 | Temp(Src) 98.3 F (36.8 C) (Axillary) | Resp 22 | Ht 1.854 m (6' 1") | Wt 111.4 kg (245 lb 9.5 oz) | BMI 32.41 kg/m2 | SpO2 94% I&O Yesterday: 03/10 700 - 03/11 659 In: 5612 [I.V.:4420] Out: 2954 [Urine:2704] Intake/Output Summary (Last 24 hours) at 03/11/14 0910 Last data filed at 03/11/14 0600 Gross per 24 hour Intake 5612 ml Output 2354 ml Net 3258 ml 03/10 700 - 03/11 659 In: 5612 [I.V.:4420] Out: 2954 [Urine:2704] Physical Exam: GENERAL: A&Ox 3, in no acute distress. NEURO: No facial asymmetry, speech normal and non pressured. Normal range of motion in all extremities HEENT: PERRL, EOMI; Sclerae clear, nonicteric; Oral Mucosa moist and pink with no ulceratio ns/lesions. NECK: No JVD noted, carotid upstrokes brisk without bruits. No thyromegaly. HEART: RRR with normal S1 and S2 heart sounds. No murmur, rub, heave, or gallop noted. LUNGS: Lungs are clear to auscultation without wheezes, rhonchi, rales. ABDOMEN: Soft, nondistended, nontender to palpation with no notable masses. EXTREMITIES: mild edema; Bilateral radial, dorsalis pedis, and posterior tibialis pulses 2+ . No clubbing or cyanosis noted. Incision: clean, dry, and intact. No erythema, discharge, or warmth noted around the incisi on site. LINES/TUBES: Right IJ central line clean, dry, and intact. Left radial arterial line clean, dry, and intact. Chest tubes clean dry and intact. DATA: Scheduled Medications albuterol 6 puff Ventilator Q4H aspirin 324 mg Per NG tube Nightly Or aspirin 325 mg Oral Nightly Or aspirin 300 mg Rectal Nightly ceFAZolin 2 g Intravenous Q8H docusate sodium 100 mg Oral BID famotidine 20 mg Oral BID Or famotidine 20 mg Intravenous BID influenza vaccine quadrivalent-split 0.5 mL Intramuscular Once Immunization insulin regular 1 unit/mL 1-50 Units Intravenous Bolus from Bag levothyroxine 150 mcg Oral QAM AC magnesium hydroxide 30 mL Oral Daily pravastatin 80 mg Oral Nightly tiotropium 18 mcg Inhalation Daily Continuous Infusions dexmedetomidine in NS Stopped (03/10/14 2100) dextrose 5 % and 0.45 % NaCl 62 mL/hr (03/11/14 0428) EPINEPHrine in D5W 32 mcg/mL 1 mcg/min (03/11/14 0830) insulin regular 1 unit/mL nitroGLYCERIN in D5W phenylephrine in D5W 320 mcg/mL sodium chloride (IV) 50 mL/hr (03/10/14 2254) sodium chloride (IV) PRN Medications acetaminophen, acetaminophen, acetaminophen, albuterol, aluminum-magnesium hydroxide-simeth icone, atropine, calcium chloride, dexmedetomidine in NS, dextrose, dextrose, hydrALAZINE, H YDROmorphone, magnesium sulfate, meperidine, nitroGLYCERIN in D5W, ondansetron, oxyCODONE, o xyCODONE, potassium chloride LABS: CBC: Lab Results Component Value Date WBC 19.6* 03/11/2014 RBC 3.07* 03/11/2014 HGB 9.9* 03/11/2014 HGB 8.5* 03/10/2014 HCT 30.2* 03/11/2014 HCT 25* 03/10/2014 MCV 98.4 03/11/2014 MCH 32.3 03/11/2014 MCHC 32.8 03/11/2014 RDW 58.2* 03/11/2014 PLT 135* 03/11/2014 MPV 8.2 03/11/2014 DIFFTYPE MANUAL 03/11/2014 BMP: Lab Results Component Value Date NA 140 03/11/2014 K 4.2 03/11/2014 CL 109 03/11/2014 CO2 24 03/11/2014 ANIONGAP 12 03/11/2014 GLUF 147* 03/11/2014 BUN 19 03/11/2014 CREATININE 1.00 03/11/2014 BCR 19 03/11/2014 CA 8.3* 03/11/2014 EGFR >60 03/11/2014 ASSESSMENT & PLAN: Wean Epi and Octavio, give Albumin 250 for volume support D/C central line after off pressores Start Coumadin 5mg Ambulate as tolerated Encourage Incentive Spirometry Bowel Care The patient has been seen and the plan discussed with the attending provider, Dr. Whitaker. Andrei Lindsay PA-C 03/11/2014 onversio n Transaction, Provider Unknown - 03/10/2014 8:14 PM PDTFormatting of this note might be di fferent from the original. Progress Notes by Vin Amador at 03/10/142013 Author: Vin Amador Service: (none) Author Type: Filed: 03/10/142019 Date of Service: 03/10/142013 Status: Signed Dispatch Supervisor: Vin Amador () Met with pt's Zamzam and family several times as off-pump call report from [facility] was kyung roaching. Zamzam appears exhausted and and anxious. I normalized her anxieties, providing kanyd ssurances, and was with family when off-pump when I received the off-pump call from [facility]. Fa basilia relieved, responding appropriately to messages. I reviewed visitation guidelines and op ened Quiet Room 2 for to be nearby gabbie. Sons Andrei and Chad, and pt's bro Ronald will return home in morning. Some friends are coming in the morning to provide additional support for Zamzam. Family voiced repeated thx for injection molding machine offbearer's availability and support throughout th is long day. CRISTIAN Marrero onviktoriya vázquez Transaction, Provider Unknown - 03/10/2014 8:13 PM PDT Progress Notes by Vin Amador at 03/10/142012 Author: Vin Amador Service: (none) Author Type: Filed: 03/10/142012 Date of Service: 03/10/142012 Status: Signed Dispatch Supervisor: Vin Amador () Delivered on-pump report to Zamzam and sons per protocols. CRISTIAN Marrero onver gurpreet Transaction, Provider Unknown - 03/10/2014 8:09 PM PDT Progress Notes by Vin Amador at 03/10/142008 Author: Vin Amador Service: (none) Author Type: Filed: 03/10/142010 Date of Service: 03/10/142008 Status: Signed Dispatch Supervisor: Vin Amador () Received p/c from [facility], asking that I meet with family to let them know that start of surge ry was just starting, having been delayed due to some issues with pt's catheter and the need for a urologist to come and assist. Family responded well to reassurances, voicing thx for updates. Will continue to keep them informed throughout surgery per protocols. CRISTIAN Diaz onver gurpreet Transaction, Provider Unknown - 03/10/2014 8:05 PM PDT Progress Notes by Vin Amador at 03/10/142004 Author: Vin Amador Service: (none) Author Type: Filed: 03/10/142007 Date of Service: 03/10/142004 Status: Signed Dispatch Supervisor: Vin Amador () Per open heart pt protocols, I met with pt's family to assess ongoing needs and orient [facility]'s support during surgery. Zamzam, sons Andrei and Chad, and a broth er present for orientation. Family are active in their [place] community and are well supporte d by their crop setting out machine operator/friend today. I provided flow card to family and will update them per prot ocmariia throughout the afternoon. CIRSTIAN Marrero onver gurpreet Bowersaction, Provider Unknown - 03/09/2014 10:45 AM PDT Nurse Progress Note by Rupal Canela RN at 03/09/14 104 Author: Rupal Canela RN Service: (none) Author Type: Registered Nurse Filed: 03/09/14 1053 Date of Service: 03/09/141044 Status: Signed Dispatch Supervisor: Rupal Canela RN (Registered Nurse) Pt return from hemodialysis lab technician via stretcher, alert and oriented x 4. Denies any Pain, right groi n with soft, with safeguard intact, scant amount old drainage on dressing. Right pedal puls e 2+, VSS, IVF infusing. onver gurpreet Transaction, Provider Unknown - 03/08/2014 2:58 PM PDT Case Management by ARACELY Walker at 03/08/14 6539 Author: ARACELY Walker Service: (none) Author Type: Supervisor Delivery Department Filed: 03/08/14 5439 Date of Service: 03/08/144 Status: Addendum Dispatch Supervisor: ARACELY Walker (Supervisor Delivery Department) Related Notes: Original Note by ARACELY Walker (Supervisor Delivery Department) filed at 03/08/14 1501 03/08/14 1400 Discharge Planning Evaluation Admitting Diagnosis Aortic Valve Replacement Readmission No Living Arrangements Spouse/significant other Support Systems Spouse/significant other Type of Residence Private residence Independent with ADL's Yes Independent with Mobility Yes Mental Status Oriented Anticipated Discharge Plan Post Acute Care Needs None at this time Resources Financial concerns No Transportation issues No Patient/Family concerns No Prescription Plan Yes Anticipated Disposition Facility Type Home ARACELY met with Pt and discussed discharge planning, planning to go home when medically ready. Pt is a 78 y.o. male here with Aortic Valve Replacement, having CHF, prog ressive Aortic Stenosis. Pt states he drives, is active and independent with all ADLs and IADLs, states outpatient o ncology at [facility] has a regimented program which follows his Coumad in levels since 2005. Patient's PCP is: [facility] Patient's insurance: Medicare / [facility] Coverage concerns: None Medication coverage/concerns: None Community resources utilized / needed: None Assistance in transportation: Pt family Identification of any specific education / training: Pending clinical course, unknown Barriers to Discharge / Alternative housing needed: Pending clinical course, unknown Anticipated DCP: Home - pending clinical course. CACHORRO REID, Restaurant Delivery Driver [phone] cell Erika Bhandari MD - 03/08/2014 2:36 PM PDTFormatting of this note might be different fro m the original. Progress Notes by Erika Fortune DO at 03/08/14 0780 Author: Erika Fortune DO Service: Cardiology Author Type: Physician Filed: 03/08/14 8417 Date of Service: 03/08/141435 Status: Signed Dispatch Supervisor: Erika Fortune DO (Physician) [facility] Service: Cardiology Progress Note Hospital Day: LOS: 1 day Post-Op Day: * No surgery found * SUBJECTIVE Patient Summary: 78yo WM, progressive VHD. Hx MVR, CAD, A fib. Now has , CHF. Adm itted to D/C warfarin and place on IV heparin in anticipation of cath, pos AVR. Events Overnight: No events, INR down, will start IN heparin, plan for cath. Scheduled Medications ascorbic acid 500 mg Oral Daily aspirin 81 mg Oral Daily with breakfast carvedilol 1.56 mg Oral BID WC fluticasone-salmeterol 1 puff Inhalation 2 times daily furosemide 80 mg Oral BID AC glucosamine-chondroitin 1 capsule Oral TID levothyroxine 150 mcg Oral QAM AC lisinopril 2.5 mg Oral Daily metFORMIN 500 mg Oral BID WC multivitamins pediatric 1 tablet Oral Daily with breakfast nitrofurantoin 50 mg Oral Nightly omeprazole 20 mg Oral QAM AC potassium chloride 20 mEq Oral BID WC pravastatin 80 mg Oral Nightly sodium chloride (PF) 10 mL Intravenous Q8H tiotropium 18 mcg Inhalation Daily Continuous Infusions heparin 50 units/mL in Dextrose 5% 1,800 Units/hr (03/08/14 1138) PRN Medications acetaminophen, acetaminophen, albuterol, heparin (porcine), heparin (porcine), nitroGLYCERI N, ondansetron, ondansetron, polyethylene glycol, zolpidem OBJECTIVE Vital Signs: BP 129/60 | Pulse 60 | Temp(Src) 97.4 F (36.3 C) (Oral) | Resp 18 | Ht 1.854 m (6' 1") | Wt 112.6 kg (248 lb 3.8 oz) | BMI 32.76 kg/m2 | SpO2 97% Temp: [97.4 F (36.3 C)-98.4 F (36.9 C)] 97.4 F (36.3 C) (03/08 1110) BP: (104-130)/(51-70) 129/60 mmHg (03/08 1110) Heart Rate: [60-63] 60 (10/1109) Resp: [18-20] 18 (03/08 1110) SpO2: [93 %-97 %] 97 % (03/08 1110) Height: [185.4 cm (6' 1")] 185.4 cm (6' 1") (03/07 1743) Weight: [112.6 kg (248 lb 3.8 oz)-113.4 kg (250 lb)] 112.6 kg (248 lb 3.8 oz) (03/08 335) BMI (Calculated): [33.1] 33.1 (03/07 1743) Intake/Output Summary (Last 24 hours) at 03/08/14 1436 Last data filed at 03/08/14 1117 Gross per 24 hour Intake 480 ml Output 3225 ml Net -2745 ml 112.6 kg (248 lb 3.8 oz) Exam Cardivascular: No JVD. Carotid upstrokes brisk and without bruits. No abdominal bruits. No femoral bruits. Peripheral pulses normal. PMI localized. Auscultated in the sitting and supine position reveals regular rate and rhythm, S1 and S2 normal, 3/6 systolic murmur Sternotomy healed, no crepitus. Pacemaker WILI, stable. Lungs: Minimal crackles, respirations unlabored Extremities: 1-2+ PTE. DATA CBC: Lab Results Component Value Date WBC 7.9 03/08/2014 RBC 3.52* 03/08/2014 HGB 11.4* 03/08/2014 HCT 34.1* 03/08/2014 MCV 96.7 03/08/2014 MCH 32.2 03/08/2014 MCHC 33.3 03/08/2014 RDW 56.4* 03/08/2014 PLT 178 03/08/2014 MPV 8.1 03/08/2014 DIFFTYPE AUTOMATED 03/07/2014 CMP: Lab Results Component Value Date NA 134* 03/07/2014 K 4.2 03/07/2014 CL 100 03/07/2014 CO2 29 03/07/2014 ANIONGAP 9 03/07/2014 GLUF 133* 03/07/2014 BUN 31* 03/07/2014 CREATININE 1.28 03/07/2014 BCR 24 03/07/2014 CA 9.1 03/07/2014 PROT 6.4 03/07/2014 ALB 3.6 03/07/2014 GLOB 2.8 03/07/2014 BILITOT 1.3 03/07/2014 ALP 61 03/07/2014 AST 26 03/07/2014 ALT 15 03/07/2014 EGFR 58* 03/07/2014 CPK: No results found for this basename: CKTOTAL Troponin I: No results found for this basename: TROPONINI TSH: No results found for this basename: TSH, TSHNEO, TSHREFLEX No results found for this basename: bnp Assessment ASSESSMENT & PLAN 1: Progressive VHD. Hx MVR, no . LVEF 30-35%. Last Echo, 02/28/20145: LVEDd 70mm, LVEF 30-35%, severe LAE, moderate ELTON, RV moderatel y enlarged, mechanical MVR, stable, mild MR, severe calcific (calc JULIAN 0.8-0.9cm2, peak/mean gradient 88/453mmHg, moderate TR, est systolic PAP 60-65, pacing catheter in RV. 2: CAD. Hx CABG: no, but MVR 1995, [employer] 31 mm valve, RHD/MS. Hx PCI/stent: yes, Ramus 2.5*12mm Taxus SHIRLEY, LCx 3.5*16mm Taxus SHIRLEY, 2004 Last Cath, 07/21/2005: L. main OK, LAD OK, Ramus stent widely patent, LCx stent widely patent, OM1 has 40% lesion, RCA mild diffuse diease. Last stress test, Adenosine Cardiolite, 07/07/2010: fixed apical defect, no reversible ischemia, LV enlarged, LVEF 46% 3: Pacemaker/ICD: yes, Guidant Insignia 1291, SN: [id number] Code Status: Full Code ERIKA Carrington DO HOLA 03/08/2014 onversio n Transaction, Provider Unknown - 03/07/2014 5:35 PM PDTFormatting of this note might be di fferent from the original. Progress Notes by Jessica Lieberman RPH at 03/07/14 6835 Author: Jessica Lieberman RPH Service: (none) Author Type: Pharmacist Filed: 03/07/14 7349 Date of Service: 03/07/141734 Status: Signed Dispatch Supervisor: Jessica Lieberman RPH (Pharmacist) Renal Dosing Monitoring: Denise Gasca 78 y.o. male Pharmacy dosing for renal function per Dr. Fortune No current SCr Plan per protocol: No renally adjusted medications currently ordered. Pharmacy will continue monitoring patient for appropriate dosing per renal function. 03/07/2014 5:35 PM Pharmacist: Jessica Lieberman docume nted in this encounter Plan of Treatment +--------+---------+ + + + | Date | Type | Specialty | Care Team | Description | +--------+---------+ + + + | 10/22/ | Office | Cardiology | Elif Hylton, | | | 2019 | Visit | | MD Asad FIELDS | | | | | | [place] | | | | | | [id number] | | | | | | | | +--------+---------+ + + + documented as of this encounter Procedures + +--------+ + + + | Procedure Name | Priori | Date/Time | Associated Diagnosis | Comments | | | ty | | | | + +--------+ + + + | POC GLUCOSE | Routin | 03/14/2014 | | Results for this | | | e | 11:18 AM | | procedure are in the | | | | PDT | | results section. | + +--------+ + + + | XR CHEST 1 VIEW | Routin | 03/14/2014 | | Results for this | | | e | 6:26 AM | | procedure are in the | | | | PDT | | results section. | + +--------+ + + + | POC GLUCOSE | Routin | 03/14/2014 | | Results for this | | | e | 4:50 AM | | procedure are in the | | | | PDT | | results section. | + +--------+ + + + | PROTIME INR | Routin | 03/14/2014 | | Results for this | | | e | 4:40 AM | | procedure are in the | | | | PDT | | results section. | + +--------+ + + + | CBC NO DIFFERENTIAL | Routin | 03/14/2014 | | Results for this | | | e | 4:40 AM | | procedure are in the | | | | PDT | | results section. | + +--------+ + + + | MAGNESIUM | Routin | 03/14/2014 | | Results for this | | | e | 4:40 AM | | procedure are in the | | | | PDT | | results section. | + +--------+ + + + | BASIC METABOLIC | Routin | 03/14/2014 | | Results for this | | PANEL | e | 4:40 AM | | procedure are in the | | | | PDT | | results section. | + +--------+ + + + | POC GLUCOSE | Routin | 03/13/2014 | | Results for this | | | e | 9:41 PM | | procedure are in the | | | | PDT | | results section. | + +--------+ + + + | POC GLUCOSE | Routin | 03/13/2014 | | Results for this | | | e | 4:49 PM | | procedure are in the | | | | PDT | | results section. | + +--------+ + + + | POC GLUCOSE | Routin | 03/13/2014 | | Results for this | | | e | 11:46 AM | | procedure are in the | | | | PDT | | results section. | + +--------+ + + + | XR CHEST 2 VIEWS | Routin | 03/13/2014 | | Results for this | | | e | 8:37 AM | | procedure are in the | | | | PDT | | results section. | + +--------+ + + + | PROTIME INR | Routin | 03/13/2014 | | Results for this | | | e | 6:30 AM | | procedure are in the | | | | PDT | | results section. | + +--------+ + + + | CBC NO DIFFERENTIAL | Routin | 03/13/2014 | | Results for this | | | e | 6:30 AM | | procedure are in the | | | | PDT | | results section. | + +--------+ + + + | MAGNESIUM | Routin | 03/13/2014 | | Results for this | | | e | 6:30 AM | | procedure are in the | | | | PDT | | results section. | + +--------+ + + + | BASIC METABOLIC | Routin | 03/13/2014 | | Results for this | | PANEL | e | 6:30 AM | | procedure are in the | | | | PDT | | results section. | + +--------+ + + + | POC GLUCOSE | Routin | 03/13/2014 | | Results for this | | | e | 5:33 AM | | procedure are in the | | | | PDT | | results section. | + +--------+ + + + | POC GLUCOSE | Routin | 03/12/2014 | | Results for this | | | e | 9:47 PM | | procedure are in the | | | | PDT | | results section. | + +--------+ + + + | POC GLUCOSE | Routin | 03/12/2014 | | Results for this | | | e | 5:29 PM | | procedure are in the | | | | PDT | | results section. | + +--------+ + + + | POC GLUCOSE | Routin | 03/12/2014 | | Results for this | | | e | 11:52 AM | | procedure are in the | | | | PDT | | results section. | + +--------+ + + + | POC GLUCOSE | Routin | 03/12/2014 | | Results for this | | | e | 6:15 AM | | procedure are in the | | | | PDT | | results section. | + +--------+ + + + | XR CHEST 1 VIEW | Routin | 03/12/2014 | | Results for this | | | e | 5:47 AM | | procedure are in the | | | | PDT | | results section. | + +--------+ + + + | PROTIME INR | Routin | 03/12/2014 | | Results for this | | | e | 2:49 AM | | procedure are in the | | | | PDT | | results section. | + +--------+ + + + | EXTERNAL LAB: CBC | Routin | 03/12/2014 | | Results for this | | | e | 2:48 AM | | procedure are in the | | | | PDT | | results section. | + +--------+ + + + | MAGNESIUM | Routin | 03/12/2014 | | Results for this | | | e | 2:48 AM | | procedure are in the | | | | PDT | | results section. | + +--------+ + + + | BASIC METABOLIC | Routin | 03/12/2014 | | Results for this | | PANEL | e | 2:48 AM | | procedure are in the | | | | PDT | | results section. | + +--------+ + + + | POC GLUCOSE | Routin | 03/11/2014 | | Results for this | | | e | 9:44 PM | | procedure are in the | | | | PDT | | results section. | + +--------+ + + + | POC GLUCOSE | Routin | 03/11/2014 | | Results for this | | | e | 7:35 PM | | procedure are in the | | | | PDT | | results section. | + +--------+ + + + | POC GLUCOSE | Routin | 03/11/2014 | | Results for this | | | e | 4:03 PM | | procedure are in the | | | | PDT | | results section. | + +--------+ + + + | POTASSIUM | Routin | 03/11/2014 | | Results for this | | | e | 3:07 PM | | procedure are in the | | | | PDT | | results section. | + +--------+ + + + | POC GLUCOSE | Routin | 03/11/2014 | | Results for this | | | e | 12:48 PM | | procedure are in the | | | | PDT | | results section. | + +--------+ + + + | POC GLUCOSE | Routin | 03/11/2014 | | Results for this | | | e | 11:43 AM | | procedure are in the | | | | PDT | | results section. | + +--------+ + + + | POC GLUCOSE | Routin | 03/11/2014 | | Results for this | | | e | 10:38 AM | | procedure are in the | | | | PDT | | results section. | + +--------+ + + + | POTASSIUM | Routin | 03/11/2014 | | Results for this | | | e | 9:40 AM | | procedure are in the | | | | PDT | | results section. | + +--------+ + + + | POC GLUCOSE | Routin | 03/11/2014 | | Results for this | | | e | 9:39 AM | | procedure are in the | | | | PDT | | results section. | + +--------+ + + + | POC GLUCOSE | Routin | 03/11/2014 | | Results for this | | | e | 8:32 AM | | procedure are in the | | | | PDT | | results section. | + +--------+ + + + | POC GLUCOSE | Routin | 03/11/2014 | | Results for this | | | e | 7:24 AM | | procedure are in the | | | | PDT | | results section. | + +--------+ + + + | POC GLUCOSE | Routin | 03/11/2014 | | Results for this | | | e | 6:20 AM | | procedure are in the | | | | PDT | | results section. | + +--------+ + + + | XR CHEST 1 VIEW | Routin | 03/11/2014 | | Results for this | | | e | 5:52 AM | | procedure are in the | | | | PDT | | results section. | + +--------+ + + + | POC GLUCOSE | Routin | 03/11/2014 | | Results for this | | | e | 5:15 AM | | procedure are in the | | | | PDT | | results section. | + +--------+ + + + | EXTERNAL LAB: CBC | Routin | 03/11/2014 | | Results for this | | | e | 4:13 AM | | procedure are in the | | | | PDT | | results section. | + +--------+ + + + | MAGNESIUM | Routin | 03/11/2014 | | Results for this | | | e | 4:13 AM | | procedure are in the | | | | PDT | | results section. | + +--------+ + + + | HEMOGLOBIN A1C | Routin | 03/11/2014 | | Results for this | | | e | 4:13 AM | | procedure are in the | | | | PDT | | results section. | + +--------+ + + + | BASIC METABOLIC | Routin | 03/11/2014 | | Results for this | | PANEL | e | 4:13 AM | | procedure are in the | | | | PDT | | results section. | + +--------+ + + + | POC GLUCOSE | Routin | 03/11/2014 | | Results for this | | | e | 4:09 AM | | procedure are in the | | | | PDT | | results section. | + +--------+ + + + | POC GLUCOSE | Routin | 03/11/2014 | | Results for this | | | e | 2:10 AM | | procedure are in the | | | | PDT | | results section. | + +--------+ + + + | POTASSIUM | Routin | 03/11/2014 | | Results for this | | | e | 12:26 AM | | procedure are in the | | | | PDT | | results section. | + +--------+ + + + | POC GLUCOSE | Routin | 03/11/2014 | | Results for this | | | e | 12:11 AM | | procedure are in the | | | | PDT | | results section. | + +--------+ + + + | TISSUE REQUEST FOR | Routin | 03/11/2014 | | Results for this | | PATHOLOGY (NON-ORD) | e | 12:00 AM | | procedure are in the | | | | PDT | | results section. | + +--------+ + + + | POC GLUCOSE | Routin | 03/10/2014 | | Results for this | | | e | 10:51 PM | | procedure are in the | | | | PDT | | results section. | + +--------+ + + + | ECG 12 LEAD | Routin | 03/10/2014 | | Results for this | | | e | 10:09 PM | | procedure are in the | | | | PDT | | results section. | + +--------+ + + + | XR CHEST 1 VIEW | Routin | 03/10/2014 | | Results for this | | | e | 8:58 PM | | procedure are in the | | | | PDT | | results section. | + +--------+ + + + | EXTERNAL LAB: CBC | Routin | 03/10/2014 | | Results for this | | | e | 8:50 PM | | procedure are in the | | | | PDT | | results section. | + +--------+ + + + | POC GLUCOSE | Routin | 03/10/2014 | | Results for this | | | e | 8:50 PM | | procedure are in the | | | | PDT | | results section. | + +--------+ + + + | PTT | Routin | 03/10/2014 | | Results for this | | | e | 8:50 PM | | procedure are in the | | | | PDT | | results section. | + +--------+ + + + | PROTIME INR | Routin | 03/10/2014 | | Results for this | | | e | 8:50 PM | | procedure are in the | | | | PDT | | results section. | + +--------+ + + + | FIBRINOGEN | Routin | 03/10/2014 | | Results for this | | | e | 8:50 PM | | procedure are in the | | | | PDT | | results section. | + +--------+ + + + | MAGNESIUM | Routin | 03/10/2014 | | Results for this | | | e | 8:50 PM | | procedure are in the | | | | PDT | | results section. | + +--------+ + + + | BASIC METABOLIC | Routin | 03/10/2014 | | Results for this | | PANEL | e | 8:50 PM | | procedure are in the | | | | PDT | | results section. | + +--------+ + + + | CALCIUM, IONIZED | Routin | 03/10/2014 | | Results for this | | | e | 8:49 PM | | procedure are in the | | | | PDT | | results section. | + +--------+ + + + | ECHO | Routin | 03/10/2014 | | Results for this | | TRANSESOPHAGEAL(HELIO) | e | 7:30 PM | | procedure are in the | | - PERIOPERATIVE | | PDT | | results section. | + +--------+ + + + | MITALI PARRA, | Routin | 03/10/2014 | | Results for this | | ARTERIAL | e | 7:26 PM | | procedure are in the | | | | PDT | | results section. | + +--------+ + + + | POC ISSAKSHI ROMANO8, | Routin | 03/10/2014 | | Results for this | | ARTERIAL | e | 6:31 PM | | procedure are in the | | | | PDT | | results section. | + +--------+ + + + | MITALI PARRA, | Routin | 03/10/2014 | | Results for this | | ARTERIAL | e | 6:03 PM | | procedure are in the | | | | PDT | | results section. | + +--------+ + + + | MITALI PARRA, | Routin | 03/10/2014 | | Results for this | | ARTERIAL | e | 5:36 PM | | procedure are in the | | | | PDT | | results section. | + +--------+ + + + | MITALI PARRA, | Routin | 03/10/2014 | | Results for this | | ARTERIAL | e | 5:05 PM | | procedure are in the | | | | PDT | | results section. | + +--------+ + + + | MITALI PARRA, | Routin | 03/10/2014 | | Results for this | | ARTERIAL | e | 3:07 PM | | procedure are in the | | | | PDT | | results section. | + +--------+ + + + | POC GLUCOSE | Routin | 03/10/2014 | | Results for this | | | e | 1:23 PM | | procedure are in the | | | | PDT | | results section. | + +--------+ + + + | ECG 12 LEAD | Routin | 03/10/2014 | | Results for this | | | e | 11:21 AM | | procedure are in the | | | | PDT | | results section. | + +--------+ + + + | PTT | Routin | 03/10/2014 | | Results for this | | | e | 7:17 AM | | procedure are in the | | | | PDT | | results section. | + +--------+ + + + | PROTIME INR | Routin | 03/10/2014 | | Results for this | | | e | 7:17 AM | | procedure are in the | | | | PDT | | results section. | + +--------+ + + + | PTT | Routin | 03/10/2014 | | Results for this | | | e | 1:21 AM | | procedure are in the | | | | PDT | | results section. | + +--------+ + + + | XR CHEST 2 VIEWS | Routin | 03/09/2014 | | Results for this | | | e | 6:17 PM | | procedure are in the | | | | PDT | | results section. | + +--------+ + + + | PTT | Routin | 03/09/2014 | | Results for this | | | e | 6:05 PM | | procedure are in the | | | | PDT | | results section. | + +--------+ + + + | CT CHEST WO CONTRAST | Routin | 03/09/2014 | | Results for this | | | e | 2:24 PM | | procedure are in the | | | | PDT | | results section. | + +--------+ + + + | VAS CAROTID DUPLEX | Routin | 03/09/2014 | | Results for this | | BILATERAL | e | 2:12 PM | | procedure are in the | | | | PDT | | results section. | + +--------+ + + + | MRSA NAAT | STAT | 03/09/2014 | | Results for this | | | | 1:21 PM | | procedure are in the | | | | PDT | | results section. | + +--------+ + + + | CV CARDIAC PROCEDURE | Routin | 03/09/2014 | | Results for this | | | e | 10:42 AM | | procedure are in the | | | | PDT | | results section. | + +--------+ + + + | PTT | Routin | 03/09/2014 | | Results for this | | | e | 1:15 AM | | procedure are in the | | | | PDT | | results section. | + +--------+ + + + | PROTIME INR | Routin | 03/09/2014 | | Results for this | | | e | 1:15 AM | | procedure are in the | | | | PDT | | results section. | + +--------+ + + + | PTT | Routin | 03/08/2014 | | Results for this | | | e | 5:50 PM | | procedure are in the | | | | PDT | | results section. | + +--------+ + + + | PTT | Routin | 03/08/2014 | | Results for this | | | e | 10:46 AM | | procedure are in the | | | | PDT | | results section. | + +--------+ + + + | PROTIME INR | Routin | 03/08/2014 | | Results for this | | | e | 10:46 AM | | procedure are in the | | | | PDT | | results section. | + +--------+ + + + | CBC NO DIFFERENTIAL | Routin | 03/08/2014 | | Results for this | | | e | 10:46 AM | | procedure are in the | | | | PDT | | results section. | + +--------+ + + + | PROTIME INR | Routin | 03/08/2014 | | Results for this | | | e | 4:28 AM | | procedure are in the | | | | PDT | | results section. | + +--------+ + + + | EXTERNAL LAB: CBC | Routin | 03/07/2014 | | Results for this | | | e | 5:50 PM | | procedure are in the | | | | PDT | | results section. | + +--------+ + + + | COMPREHENSIVE | Routin | 03/07/2014 | | Results for this | | METABOLIC PANEL | e | 5:50 PM | | procedure are in the | | | | PDT | | results section. | + +--------+ + + + documented in this encounter Results POC Glucose (03/14/2014 11:18 AM PDT) + + + + + + | Component | Value | Ref Range | Performed | Pathologist | | | | | At | Signature | + + + + + + | Glucose, | 169 (H)Comment: Testing | 65 - 99 mg/dL | EXTERNAL | | | Fingerstick | performed at [facility];[address] | [address] | | | [address];[place], [place] | | | | | | [address] | | | | + + + + + + + + | Specimen | + + | | + + + +---------+ + + | Performing | Address | City/State/Zipcode | Phone Number | | Organization | | | | + +---------+ + + | EXTERNAL LAB | | | | + +---------+ + + XR Chest 1 Vw (03/14/2014 6:26 AM PDT) + + | Specimen | + + | | + + + + + | Impressions | Performed At | + + + | 1. Congestive heart failure, unchanged from the prior study. | | | | | + + + + + + | Narrative | Performed At | + + + | DENISE GASCA XR CHEST 1 VIEW 03/14/2014 6:26 AM HISTORY: | | | Tube placement. TECHNIQUE: One view chest. FINDINGS: | | | Compared with 03/13/14. There is persistent cardiomegaly and mild | | | bilateral interstitial edema with little significant change. Previous | | | sternotomy and pacemaker placement. No evidence of pneumothorax. | | + + + + + | Procedure Note | + + | Pal, Rad Conversion - 01/18/2019 9:23 PM PDT DENISE STONE CHEST 1 | | VIEW03/14/2014 6:26 AM HISTORY:Tube placement. TECHNIQUE:One view chest. | | FINDINGS:Compared with 03/13/14. There is persistent cardiomegaly and mild bilateral | | interstitial edema with little significant change. Previous sternotomy and pacemaker | | placement. No evidence of pneumothorax. IMPRESSION: 1. Congestive heart failure, | | unchanged from the prior study. Electronically signed by Gold Thibodeaux MD on | | 03/14/2014 9:24 AM | |TECHNIQUE: | |One view chest. | | | |FINDINGS: | |Compared with 03/13/14. There is persistent cardiomegaly and mild bilateral interstitial asif ma with little significant change. Previous sternotomy and pacemaker placement. No evidence of pneumothorax. | | | |IMPRESSION: | |1. Congestive heart failure, unchanged from the prior study. | | | | | + + POC Glucose (03/14/2014 4:50 AM PDT) + + + + + + | Component | Value | Ref Range | Performed | Pathologist | | | | | At | Signature | + + + + + + | Glucose, | 115 (H)Comment: Testing | 65 - 99 mg/dL | EXTERNAL | | | Fingerstick | performed at [facility];[address] | | LAB | | | [address];[place], [place] | | | | | | [address] | | | | + + + + + + + + | Specimen | + + | | + + + +---------+ + + | Performing | Address | City/State/Zipcode | Phone Number | | Organization | | | | + +---------+ + + | EXTERNAL LAB | | | | + +---------+ + + CBC no Differential (03/14/2014 4:40 AM PDT) + + + + + + | Component | Value | Ref Range | Performed | Pathologist | | | | | At | Signature | + + + + + + | WBC | 10.9Comment: Testing | 3.8 - 11.0 K/uL | EXTERNAL | | | | performed at [facility], [address] | | LAB | | | | [address], | | | | | | [place] [address] | | | | + + + + + + | RED CELL | 2.66 (L)Comment: Testing | 4.20 - 5.70 | EXTERNAL | | | COUNT | performed at [facility], [address] | [address] | LAB | | | | [address], | | | | | | [place] [address] | | | | + + + + + + | Hgb | 8.8 (L)Comment: Testing | 13.2 - 17.0 | EXTERNAL | | | | performed at [facility], [address] | g/dL | LAB | | | | [address], | | | | | | [place] [address] | | | | + + + + + + | Hematocrit, | 26.3 (L)Comment: Testing | 39.0 - 50.0 % | EXTERNAL | | | POC | performed at [facility], [address] | | LAB | | | | [address], | | | | | | [place] [address] | | | | + + + + + + | MCV | 98.9Comment: Testing | 80.0 - 100.0 fl | EXTERNAL | | | | performed at [facility], [address] | | LAB | | | | [address], | | | | | | [place] [address] | | | | + + + + + + | MCH | 33.2Comment: Testing | 27.0 - 34.0 pg | EXTERNAL | | | | performed at [facility], [address] | | LAB | | | | [address], | | | | | | [place] [address] | | | | + + + + + + | MCHC | 33.6Comment: Testing | 32.0 - 35.5 | EXTERNAL | | | | performed at [facility], [address] | g/dL | LAB | | | | [address], | | | | | | [place] [address] | | | | + + + + + + | RDW-CV | 57.8 (H)Comment: Testing | 37 - 53 fl | EXTERNAL | | | | performed at [facility], [address] | | LAB | | | | [address], | | | | | | [place] [address] | | | | + + + + + + | Platelet | 126 (L)Comment: Testing | 150 - 400 K/uL | EXTERNAL | | | Count | performed at [facility], [address] | | LAB | | | Plasma | [address], | | | | | | [place] [address] | | | | + + + + + + | MPV | 9.3Comment: Testing | fl | EXTERNAL | | | | performed at [facility], [address] | | LAB | | | | [address], | | | | | | [place] [address] | | | | + + + + + + + + | Specimen | + + | | + + + +---------+ + + | Performing | Address | City/State/Zipcode | Phone Number | | Organization | | | | + +---------+ + + | EXTERNAL LAB | | | | + +---------+ + + Protime INR (03/14/2014 4:40 AM PDT) + + + + + + | Component | Value | Ref Range | Performed | Pathologist | | | | | At | Signature | + + + + + + | INR | 1.3Comment: REFERENCE | | EXTERNAL | | | | RANGE:0.9 - 1.2 | | LAB | | | | NON-ANTICOAGULATED2.0 | | [...] | | | performed at [facility];[address] | | | | | | [facility];[place], [place] | | | | | | [address] | | | | + + + + + + + + | Specimen | + + | Blood specimen | | (specimen) | + + + +---------+ + + | Performing | Address | City/State/Zipcode | Phone Number | | Organization | | | | + +---------+ + + | EXTERNAL LAB | | | | + +---------+ + + Magnesium (03/14/2014 4:40 AM PDT) + + + + + + | Component | Value | Ref Range | Performed | Pathologist | | | | | At | Signature | + + + + + + | Magnesium | 2.3Comment: Testing | 1.7 - 2.4 mg/dL | EXTERNAL | | | | performed at [facility], [address] | | LAB | | | | [address], | | | | | | [place] [address] | | | | + + + + + + + + | Specimen | + + | Blood specimen | | (specimen) | + + + +---------+ + + | Performing | Address | City/State/Zipcode | Phone Number | | Organization | | | | + +---------+ + + | EXTERNAL LAB | | | | + +---------+ + + Basic Metabolic Panel (03/14/2014 4:40 AM PDT) + + + + + + | Component | Value | Ref Range | Performed | Pathologist | | | | | At | Signature | + + + + + + | Na | 129 (L)Comment: Testing | 135 - 143 | EXTERNAL | | | | performed at [facility], [address] | mmol/L | LAB | | | | [address], | | | | | | [place] [address] | | | | + + + + + + | K | 5.1 (H)Comment: Testing | 3.5 - 4.9 | EXTERNAL | | | | performed at [facility], [address] | mmol/L | LAB | | | | [address], | | | | | | [place] [address] | | | | + + + + + + | Cl | 98 (L)Comment: Testing | 99 - 109 mmol/L | EXTERNAL | | | | performed at [facility], [address] | | LAB | | | | [address], | | | | | | [place] [address] | | | | + + + + + + | CO2 | 27Comment: Testing | 23 - 32 mmol/L | EXTERNAL | | | | performed at [facility], [address] | | LAB | | | | [address], | | | | | | [place] [address] | | | | + + + + + + | Anion Gap | 9Comment: Testing | 5 - 20 mmol/L | EXTERNAL | | | | performed at [facility], [address] | | LAB | | | | [address], | | | | | | [place] [address] | | | | + + + + + + | Glucose, | 101 (H)Comment: Testing | 65 - 99 mg/dL | EXTERNAL | | | Fasting | performed at [facility], [address] | | LAB | | | | [address], | | | | | | [place] [address] | | | | + + + + + + | BUN | 24Comment: Testing | 8 - 25 mg/dL | EXTERNAL | | | | performed at [facility], [address] | | LAB | | | | [address], | | | | | | [place] [address] | | | | + + + + + + | Creatinine | 1.12Comment: Testing | 0.70 - 1.30 | EXTERNAL | | | | performed at [facility], [address] | mg/dL | LAB | | | | [address], | | | | | | [place] [address] | | | | + + + + + + | BUN/Creatin | 21Comment: Testing | | EXTERNAL | | | ine Ratio | performed at [facility], [address] | | LAB | | | | [address], | | | | | | [place] [address] | | | | + + + + + + | Calcium | 8.8Comment: Testing | 8.5 - 10.2 | EXTERNAL | | | | performed at [facility], [address] | mg/dL | LAB | | | | [facility], | | | | | | [place] [address] | | | | + + + + + + | Estimated | >60Comment: GFR <60: | mL/min/1.73m2 | EXTERNAL | | | GFR | CHRONIC KIDNEY DISEASE, | | LAB | | | | IF FOUND OVER A 3 MONTH | | | | | | PERIOD.GFR <15: KIDNEY | | | | | | FAILURE.FOR | | | | | | AMERICANS, MULTIPLY THE | | | | | | CALCULATED GFR BY | | | | | | 1.210.Testing performed | | | | | | at [facility], [address] | | | | | | [address], | | | | | | [place] [address] | | | | + + + + + + + + | Specimen | + + | Blood specimen | | (specimen) | + + + +---------+ + + | Performing | Address | City/State/Zipcode | Phone Number | | Organization | | | | + +---------+ + + | EXTERNAL LAB | | | | + +---------+ + + POC Glucose (03/13/2014 9:41 PM PDT) + + + + + + | Component | Value | Ref Range | Performed | Pathologist | | | | | At | Signature | + + + + + + | Glucose, | 121 (H)Comment: Testing | 65 - 99 mg/dL | EXTERNAL | | | Fingerstick | performed at [facility];[address] | | LAB | | | | [address];[place], [place] | | | | | | [address] | | | | + + + + + + + + | Specimen | + + | | + + + +---------+ + + | Performing | Address | City/State/Zipcode | Phone Number | | Organization | | | | + +---------+ + + | EXTERNAL LAB | | | | + +---------+ + + POC Glucose (03/13/2014 4:49 PM PDT) + + + + + + | Component | Value | Ref Range | Performed | Pathologist | | | | | At | Signature | + + + + + + | Glucose, | 229 (H)Comment: Testing | 65 - 99 mg/dL | EXTERNAL | | | Fingerstick | performed at [facility];[address] | | LAB | | | | [address];[place], [place] | | | | | | [address] | | | | + + + + + + + + | Specimen | + + | | + + + +---------+ + + | Performing | Address | City/State/Zipcode | Phone Number | | Organization | | | | + +---------+ + + | EXTERNAL LAB | | | | + +---------+ + + POC Glucose (03/13/2014 11:46 AM PDT) + + + + + + | Component | Value | Ref Range | Performed | Pathologist | | | | | At | Signature | + + + + + + | Glucose, | 126 (H)Comment: Testing | 65 - 99 mg/dL | EXTERNAL | | | Fingerstick | performed at [facility] | | LAB | | | | [place] | | | | | | [address] | | | | + + + + + + + + | Specimen | + + | | + + + +---------+ + + | Performing | Address | City/State/Zipcode | Phone Number | | Organization | | | | + +---------+ + + | EXTERNAL LAB | | | | + +---------+ + + XR Chest 2 Vws (03/13/2014 8:37 AM PDT) + + | Specimen | + + | | + + + + + | Impressions | Performed At | + + + | 1. Persistent cardiomegaly with mild interstitial edema. 2. | | | Small pleural effusion seen on the lateral view. 3. No evidence | | | of pneumothorax following central line removal. Electronically | | | signed by Gold Thibodeaux MD on 03/13/2014 9:06 AM | | + + + + + + | Narrative | Performed At | + + + | DENISE GASCA XR CHEST 2 VIEW FRONTAL AND LATERAL 03/13/2014 | | | 8:37 AM HISTORY: Followup tube placement. Recent heart surgery. | | | TECHNIQUE: 2 views of the chest. FINDINGS: Compared with | | | 03/12/14. The central line has been removed. No evidence of | | | pneumothorax. There is persistent cardiomegaly. Sternal wires are | | | unchanged. Pacemaker remains in place. There is a small | | | pneumomediastinum adjacent to the left heart border, decreased. | | | There is persistent mild interstitial edema and left lower lobe | | | atelectasis. A small pleural effusion seen on the lateral view, | | | probably on the left. | | + + + + + | Procedure Note | + + | Raudel Aguillon - 01/18/2019 9:23 PM [facility] CHEST 2 VIEW FRONTAL | | AND [id number]/9/2014 8:37 AM HISTORY:Followup tube placement. Recent heart surgery. | | TECHNIQUE:2 views of the chest. FINDINGS:Compared with 03/12/14. The central line has | | been removed. No evidence of pneumothorax. There is persistent cardiomegaly. Sternal | | wires are unchanged. Pacemaker remains in place. There is a small pneumomediastinum | | adjacent to the left heart border, decreased. There is persistent mild interstitial | | edema and left lower lobe atelectasis. A small pleural effusion seen on the lateral | | view, probably on the left. IMPRESSION: 1. Persistent cardiomegaly with mild | | interstitial edema.2. Small pleural effusion seen on the lateral view.3. No evidence | | of pneumothorax following central line removal. | |Compared with 03/12/14. The central line has been removed. No evidence of pneumothorax. Ther e is persistent cardiomegaly. Sternal wires are unchanged. Pacemaker remains in place. There is a small pneumomediastinum adjacent to the left heart border, | |decreased. There is persistent mild interstitial edema and left lower lobe atelectasis. A s mall pleural effusion seen on the lateral view, probably on the left. | | | |IMPRESSION: | |1. Persistent cardiomegaly with mild interstitial edema. | |2. Small pleural effusion seen on the lateral view. | |3. No evidence of pneumothorax following central line removal. | | | | | + + CBC no Differential (03/13/2014 6:30 AM PDT) + + + + + + | Component | Value | Ref Range | Performed | Pathologist | | | | | At | Signature | + + + + + + | WBC | 15.2 (H)Comment: Testing | 3.8 - 11.0 K/uL | EXTERNAL | | | | performed at [facility];[address] | | LAB | | | | [address];[place] | | | | | | [address] | | | | + + + + + + | RED CELL | 2.80 (L)Comment: Testing | 4.20 - 5.70 | EXTERNAL | | | COUNT | performed at [facility];[address] | M/uL | LAB | | | | [address];[place] | | | | | | [address] | | | | + + + + + + | Hgb | 9.1 (L)Comment: Testing | 13.2 - 17.0 | EXTERNAL | | | | performed at [facility];888 | g/dL | LAB | | | | [address];[place] | | | | | | [address] | | | | + + + + + + | Hematocrit, | 27.3 (L)Comment: Testing | 39.0 - 50.0 % | EXTERNAL | | | POC | performed at [facility];[address] | | LAB | | | | [address];[place] | | | | | | [address] | | | | + + + + + + | MCV | 97.4Comment: Testing | 80.0 - 100.0 fl | EXTERNAL | | | | performed at [facility];[address] | | LAB | | | | [address];[place] | | | | | | [address] | | | | + + + + + + | MCH | 32.6Comment: Testing | 27.0 - 34.0 pg | EXTERNAL | | | | performed at [facility];[address] | | LAB | | | | [address];[place] | | | | | | [address] | | | | + + + + + + | MCHC | 33.4Comment: Testing | 32.0 - 35.5 | EXTERNAL | | | | performed at [facility];888 | g/dL | LAB | | | | [address];[place] | | | | | | [address] | | | | + + + + + + | RDW-CV | 58.6 (H)Comment: Testing | 37 - 53 fl | EXTERNAL | | | | performed at [facility];[address] | | LAB | | | | [address];[place] | | | | | | [address] | | | | + + + + + + | Platelet | 134 (L)Comment: Testing | 150 - 400 K/uL | EXTERNAL | | | Count | performed at [facility];[address] | | LAB | | | Plasma | [address];[place] | | | | | | [address] | | | | + + + + + + | MPV | 8.3Comment: Testing | fl | EXTERNAL | | | | performed at [facility];[address] | | LAB | | | | [address];[place] | | | | | | [address] | | | | + + + + + + + + | Specimen | + + | | + + + +---------+ + + | Performing | Address | City/State/Zipcode | Phone Number | | Organization | | | | + +---------+ + + | EXTERNAL LAB | | | | + +---------+ + + Protime INR (03/13/2014 6:30 AM PDT) + + + + + + | Component | Value | Ref Range | Performed | Pathologist | | | | | At | Signature | + + + + + + | INR | 1.4Comment: REFERENCE | | EXTERNAL | | | | RANGE:0.9 - 1.2 | | LAB | | | | NON-ANTICOAGULATED2.0 | | [...] | | | performed at [facility] | | | | | | [facility];[place], [place] | | | | | | [address] | | | | + + + + + + + + | Specimen | + + | Blood specimen | | (specimen) | + + + +---------+ + + | Performing | Address | City/State/Zipcode | Phone Number | | Organization | | | | + +---------+ + + | EXTERNAL LAB | | | | + +---------+ + + Magnesium (03/13/2014 6:30 AM PDT) + + + + + + | Component | Value | Ref Range | Performed | Pathologist | | | | | At | Signature | + + + + + + | Magnesium | 2.4Comment: Testing | 1.7 - 2.4 mg/dL | EXTERNAL | | | | performed at [facility];[address] | | LAB | | | | [address];[place], [place] | | | | | | [address] | | | | + + + + + + + + | Specimen | + + | Blood specimen | | (specimen) | + + + +---------+ + + | Performing | Address | City/State/Zipcode | Phone Number | | Organization | | | | + +---------+ + + | EXTERNAL LAB | | | | + +---------+ + + Basic Metabolic Panel (03/13/2014 6:30 AM PDT) + + + + + + | Component | Value | Ref Range | Performed | Pathologist | | | | | At | Signature | + + + + + + | Na | 134 (L)Comment: Testing | 135 - 143 | EXTERNAL | | | | performed at [facility];888 | mmol/L | LAB | | | | [address];[place] | | | | | | [address] | | | | + + + + + + | K | 4.9Comment: Testing | 3.5 - 4.9 | EXTERNAL | | | | performed at [facility];[address] | mmol/L | LAB | | | | [address];[place] | | | | | | [address] | | | | + + + + + + | Cl | 102Comment: Testing | 99 - 109 mmol/L | EXTERNAL | | | | performed at [facility];[address] | | LAB | | | | [address];[place] | | | | | | [address] | | | | + + + + + + | CO2 | 27Comment: Testing | 23 - 32 mmol/L | EXTERNAL | | | | performed at [facility];[address] | | LAB | | | | [address];[place] | | | | | | [address] | | | | + + + + + + | Anion Gap | 10Comment: Testing | 5 - 20 mmol/L | EXTERNAL | | | | performed at [facility];[address] | | LAB | | | | [address];[place] | | | | | | [address] | | | | + + + + + + | Glucose, | 94Comment: Testing | 65 - 99 mg/dL | EXTERNAL | | | Fasting | performed at [facility];[address] | | LAB | | | | [address];[place] | | | | | | [address] | | | | + + + + + + | BUN | 22Comment: Testing | 8 - 25 mg/dL | EXTERNAL | | | | performed at [facility];[address] | | LAB | | | | [address];[place] | | | | | | [address] | | | | + + + + + + | Creatinine | 1.09Comment: Testing | 0.70 - 1.30 | EXTERNAL | | | | performed at [facility];[address] | mg/dL | LAB | | | | [address];[place] | | | | | | [address] | | | | + + + + + + | BUN/Creatin | 20Comment: Testing | | EXTERNAL | | | ine Ratio | performed at [facility];[address] | | LAB | | | | [address];[place] | | | | | | [address] | | | | + + + + + + | Calcium | 8.7Comment: Testing | 8.5 - 10.2 | EXTERNAL | | | | performed at [facility];[address] | mg/dL | LAB | | | | [address];[place] | | | | | | [address] | | | | + + + + + + | Estimated | >60Comment: GFR <60: | mL/min/1.73m2 | EXTERNAL | | | GFR | CHRONIC KIDNEY DISEASE, | | LAB | | | | IF FOUND OVER A 3 MONTH | | | | | | PERIOD.GFR <15: KIDNEY | | | | | | FAILURE.FOR | | | | | | AMERICANS, MULTIPLY THE | | | | | | CALCULATED GFR BY | | | | | | 1.210.Testing performed | | | | | | at [facility];[address] [place] [address] | | | | | | [facility];[place] [address] | | | | + + + + + + + + | Specimen | + + | Blood specimen | | (specimen) | + + + +---------+ + + | Performing | Address | City/State/Zipcode | Phone Number | | Organization | | | | + +---------+ + + | EXTERNAL LAB | | | | + +---------+ + + POC Glucose (03/13/2014 5:33 AM PDT) + + + + + + | Component | Value | Ref Range | Performed | Pathologist | | | | | At | Signature | + + + + + + | Glucose, | 106 (H)Comment: Testing | 65 - 99 mg/dL | EXTERNAL | | | Fingerstick | performed at [facility];[address] | | LAB | | | | [address];[place] | | | | | | [address] | | | | + + + + + + + + | Specimen | + + | | + + + +---------+ + + | Performing | Address | City/State/Zipcode | Phone Number | | Organization | | | | + +---------+ + + | EXTERNAL LAB | | | | + +---------+ + + POC Glucose (03/12/2014 9:47 PM PDT) + + + + + + | Component | Value | Ref Range | Performed | Pathologist | | | | | At | Signature | + + + + + + | Glucose, | 201 (H)Comment: Testing | 65 - 99 mg/dL | EXTERNAL | | | Fingerstick | performed at [facility];[address] | | LAB | | | | [address];[place], [place] | | | | | | [address] | | | | + + + + + + + + | Specimen | + + | | + + + +---------+ + + | Performing | Address | City/State/Zipcode | Phone Number | | Organization | | | | + +---------+ + + | EXTERNAL LAB | | | | + +---------+ + + POC Glucose (03/12/2014 5:29 PM PDT) + + + + + + | Component | Value | Ref Range | Performed | Pathologist | | | | | At | Signature | + + + + + + | Glucose, | 152 (H)Comment: Testing | 65 - 99 mg/dL | EXTERNAL | | | Fingerstick | performed at [facility];[address] | | LAB | | | | [address];[place], [place] | | | | | | [address] | | | | + + + + + + + + | Specimen | + + | | + + + +---------+ + + | Performing | Address | City/State/Zipcode | Phone Number | | Organization | | | | + +---------+ + + | EXTERNAL LAB | | | | + +---------+ + + POC Glucose (03/12/2014 11:52 AM PDT) + + + + + + | Component | Value | Ref Range | Performed | Pathologist | | | | | At | Signature | + + + + + + | Glucose, | 211 (H)Comment: Testing | 65 - 99 mg/dL | EXTERNAL | | | Fingerstick | performed at [facility];[address] | | LAB | | | | [address];[place] | | | | | | [address] | | | | + + + + + + + + | Specimen | + + | | + + + +---------+ + + | Performing | Address | City/State/Zipcode | Phone Number | | Organization | | | | + +---------+ + + | EXTERNAL LAB | | | | + +---------+ + + POC Glucose (03/12/2014 6:15 AM PDT) + + + + + + | Component | Value | Ref Range | Performed | Pathologist | | | | | At | Signature | + + + + + + | Glucose, | 164 (H)Comment: Testing | 65 - 99 mg/dL | EXTERNAL | | | Fingerstick | performed at [facility];[address] | | LAB | | | | [address];[place], [place] | | | | | | [address] | | | | + + + + + + + + | Specimen | + + | | + + + +---------+ + + | Performing | Address | City/State/Zipcode | Phone Number | | Organization | | | | + +---------+ + + | EXTERNAL LAB | | | | + +---------+ + + XR Chest 1 Vw (03/12/2014 5:47 AM PDT) + + | Specimen | + + | | + + + + + | Impressions | Performed At | + + + | 1. Improving left lower lobe atelectasis. Otherwise stable chest. | | | | | | AM | | + + + + + + | Narrative | Performed At | + + + | DENISE GASCA XR CHEST 1 VIEW 03/12/2014 5:47 AM HISTORY: | | | Tube placement. TECHNIQUE: One view chest. FINDINGS: | | | Compared with 03/11/14. The central line is unchanged in position. | | | There is persistent cardiomegaly. There is a small amount of | | | pneumomediastinum and pneumopericardium along the left heart border. | | | There is improving atelectasis in the left lower lobe. There is | | | persistent mild vascular congestion and interstitial edema. No | | | pneumothorax. | | + + + + + | Procedure Note | + + | Pal, Rad Conversion - 01/18/2019 9:23 PM PDT DENISE D GLORIAR CHEST 1 | | VIEW03/12/2014 5:47 AM HISTORY:Tube placement. TECHNIQUE:One view chest. | | FINDINGS:Compared with 03/11/14. The central line is unchanged in position. There is | | persistent cardiomegaly. There is a small amount of pneumomediastinum and | | pneumopericardium along the left heart border. There is improving atelectasis in the | | left lower lobe. There is persistent mild vascular congestion and interstitial edema. No | | pneumothorax. IMPRESSION: 1. Improving left lower lobe atelectasis. Otherwise stable | | chest. | |One view chest. | | | |FINDINGS: | |Compared with 03/11/14. The central line is unchanged in position. There is persistent cardi omegaly. There is a small amount of pneumomediastinum and pneumopericardium along the left h eart border. There is improving atelectasis in the left lower lobe. | |There is persistent mild vascular congestion and interstitial edema. No pneumothorax. | | | |IMPRESSION: | |1. Improving left lower lobe atelectasis. Otherwise stable chest. | | | | | + + Protime INR (03/12/2014 2:49 AM PDT) + + + + + + | Component | Value | Ref Range | Performed | Pathologist | | | | | At | Signature | + + + + + + | INR | 1.5Comment: REFERENCE | | EXTERNAL | | | | RANGE:0.9 - 1.2 | | LAB | | | | NON-ANTICOAGULATED2.0 | | [...] | | | performed at [facility] | | | | | | [place] [facility];[place], [place] | | | | | | [address] | | | | + + + + + + + + | Specimen | + + | Blood specimen | | (specimen) | + + + +---------+ + + | Performing | Address | City/State/Zipcode | Phone Number | | Organization | | | | + +---------+ + + | EXTERNAL LAB | | | | + +---------+ + + External Lab: CBC (03/12/2014 2:48 AM PDT) + + + + + + | Component | Value | Ref Range | Performed | Pathologist | | | | | At | Signature | + + + + + + | WBC | 16.0 (H)Comment: Testing | 3.8 - 11.0 K/uL | EXTERNAL | | | | performed at [facility] | | LAB | | | | [address], | | | | | | [place] [address] | | | | + + + + + + | RED CELL | 2.77 (L)Comment: Testing | 4.20 - 5.70 | EXTERNAL | | | COUNT | performed at [facility], [address] | M/uL | LAB | | | | [address], | | | | | | [place] [address] | | | | + + + + + + | Hgb | 8.9 (L)Comment: Testing | 13.2 - 17.0 | EXTERNAL | | | | performed at [facility], [address] | g/dL | LAB | | | | [address], | | | | | | [place] [address] | | | | + + + + + + | Hematocrit, | 27.5 (L)Comment: Testing | 39.0 - 50.0 % | EXTERNAL | | | POC | performed at [facility], [address] | | LAB | | | | [address], | | | | | | [place] [address] | | | | + + + + + + | MCV | 99.2Comment: Testing | 80.0 - 100.0 fl | EXTERNAL | | | | performed at [facility], [address] | | LAB | | | [address], | | | | | | [place] [address] | | | | + + + + + + | MCH | 32.0Comment: Testing | 27.0 - 34.0 pg | EXTERNAL | | | | performed at [facility], [address] | | LAB | | | [address], | | | | | | [place] [address] | | | | + + + + + + | MCHC | 32.3Comment: Testing | 32.0 - 35.5 | EXTERNAL | | | | performed at [facility], [address] | g/dL | LAB | | | | [address], | | | | | | [place] [address] | | | | + + + + + + | RDW-CV | 56.4 (H)Comment: Testing | 37 - 53 fl | EXTERNAL | | | | performed at [facility], [address] | | LAB | | | | [address], | | | | | | [place] [address] | | | | + + + + + + | Platelet | 111 (L)Comment: Testing | 150 - 400 K/uL | EXTERNAL | | | Count | performed at [facility], [address] | | LAB | | | Plasma | [address], | | | | | | [place] [address] | | | | + + + + + + | MPV | 8.7Comment: Testing | fl | EXTERNAL | | | | performed at [facility], [address] | | LAB | | | | [address], | | | | | | [place] [address] | | | | + + + + + + | Differentia | MANUALComment: Testing | | EXTERNAL | | | l Type | performed at [facility], [address] | | LAB | | | | [address], | | | | | | [place], [place] [address] | | | | + + + + + + | Segmented | 87Comment: Testing | % | EXTERNAL | | | Neutrophils | performed at [facility], [address] | | LAB | | | Manual | [address], | | | | | | [place], [place] [address] | | | | + + + + + + | % Bands | 5Comment: Testing | % | EXTERNAL | | | | performed at [facility], [address] | | LAB | | | | [address], | | | | | | [place], [place] [address] | | | | + + + + + + | Lymphocytes | 3Comment: Testing | % | EXTERNAL | | | Manual | performed at [facility], [address] | | LAB | | | | [address], | | | | | | [place], [place] [address] | | | | + + + + + + | Monocytes | 5Comment: Testing | % | EXTERNAL | | | Manual | performed at [facility], [address] | | LAB | | | | [address], | | | | | | [place] [address] | | | | + + + + + + | Absolute | 13.9 (H)Comment: Testing | 1.9 - 7.4 K/uL | EXTERNAL | | | Neutrophils | performed at [facility], [address] | | LAB | | | | [address], | | | | | | [place] [address] | | | | + + + + + + | Bands | 0.8 (H)Comment: Testing | 0 - 0.2 K/uL | EXTERNAL | | | Manual | performed at [facility], [address] | | LAB | | | | [address], | | | | | | [place] [address] | | | | + + + + + + | Absolute | 0.5 (L)Comment: Testing | 1.0 - 3.9 K/uL | EXTERNAL | | | Lymphocytes | performed at [facility], [address] | | LAB | | | | [address], | | | | | | [place] [address] | | | | + + + + + + | Absolute | 0.8Comment: Testing | 0 - 0.8 K/uL | EXTERNAL | | | Monocytes | performed at [facility], [address] | | LAB | | | | [address], | | | | | | [place] [address] | | | | + + + + + + | RBC | 1+Comment: ANISONORMAL | | EXTERNAL | | | Morphology | PLT MORPHTesting | | LAB | | | | performed at [facility], [address] | | | | | | [address], | | | | | | [place] [address] | | | | | | | | | | + + + + + + + + | Specimen | + + | Blood specimen | | (specimen) | + + + +---------+ + + | Performing | Address | City/State/Zipcode | Phone Number | | Organization | | | | + +---------+ + + | EXTERNAL LAB | | | | + +---------+ + + Magnesium (03/12/2014 2:48 AM PDT) + + + + + + | Component | Value | Ref Range | Performed | Pathologist | | | | | At | Signature | + + + + + + | Magnesium | 2.6 (H)Comment: Testing | 1.7 - 2.4 mg/dL | EXTERNAL | | | | performed at [facility], [address] | | LAB | | | | [address], | | | | | | [place] [address] | | | | + + + + + + + + | Specimen | + + | Blood specimen | | (specimen) | + + + +---------+ + + | Performing | Address | City/State/Zipcode | Phone Number | | Organization | | | | + +---------+ + + | EXTERNAL LAB | | | | + +---------+ + + Basic Metabolic Panel (03/12/2014 2:48 AM PDT) + + + + + + | Component | Value | Ref Range | Performed | Pathologist | | | | | At | Signature | + + + + + + | Na | 132 (L)Comment: Testing | 135 - 143 | EXTERNAL | | | | performed at [facility], [address] | mmol/L | LAB | | | | [address], | | | | | | [place] [address] | | | | + + + + + + | K | 4.8Comment: Testing | 3.5 - 4.9 | EXTERNAL | | | | performed at [facility], [address] | mmol/L | LAB | | | | [address], | | | | | | [place] [address] | | | | + + + + + + | Cl | 103Comment: Testing | 99 - 109 mmol/L | EXTERNAL | | | | performed at [facility], [address] | | LAB | | | | [address], | | | | | | [place] [address] | | | | + + + + + + | CO2 | 26Comment: Testing | 23 - 32 mmol/L | EXTERNAL | | | | performed at [facility], [address] | | LAB | | | | [address], | | | | | | [place] [address] | | | | + + + + + + | Anion Gap | 8Comment: Testing | 5 - 20 mmol/L | EXTERNAL | | | | performed at [facility], [address] | | LAB | | | | [address], | | | | | | [place] [address] | | | | + + + + + + | Glucose, | 142 (H)Comment: Testing | 65 - 99 mg/dL | EXTERNAL | | | Fasting | performed at [facility], [address] | | LAB | | | | [address], | | | | | | [place] [address] | | | | + + + + + + | BUN | 23Comment: Testing | 8 - 25 mg/dL | EXTERNAL | | | | performed at [facility], [address] | | LAB | | | | [address], | | | | | | [place] [address] | | | | + + + + + + | Creatinine | 1.16Comment: Testing | 0.70 - 1.30 | EXTERNAL | | | | performed at [facility], [address] | mg/dL | LAB | | | | [address], | | | | | | [place] [address] | | | | + + + + + + | BUN/Creatin | 20Comment: Testing | | EXTERNAL | | | ine Ratio | performed at [facility], [address] | | LAB | | | | [address], | | | | | | [place] [address] | | | | + + + + + + | Calcium | 8.8Comment: Testing | 8.5 - 10.2 | EXTERNAL | | | | performed at [facility], [address] | mg/dL | LAB | | | | [facility] [address], | | | | | | [place] [address] | | | | + + + + + + | Estimated | >60Comment: GFR <60: | mL/min/1.73m2 | EXTERNAL | | | GFR | CHRONIC KIDNEY DISEASE, | | LAB | | | | IF FOUND OVER A 3 MONTH | | | | | | PERIOD.GFR <15: KIDNEY | | | | | | FAILURE.FOR | | | | | | AMERICANS, MULTIPLY THE | | | | | | CALCULATED GFR BY | | | | | | 1.210.Testing performed | | | | | | at [facility], [address] | | | | | | [facility] [address], | | | | | | [place] [address] | | | | + + + + + + + + | Specimen | + + | Blood specimen | | (specimen) | + + + +---------+ + + | Performing | Address | City/State/Zipcode | Phone Number | | Organization | | | | + +---------+ + + | EXTERNAL LAB | | | | + +---------+ + + POC Glucose (03/11/2014 9:44 PM PDT) + + + + + + | Component | Value | Ref Range | Performed | Pathologist | | | | | At | Signature | + + + + + + | Glucose, | 304 (H)Comment: Testing | 65 - 99 mg/dL | EXTERNAL | | | Fingerstick | performed at [facility];[address] | | LAB | | | | [address];[place] | | | | | | [address] | | | | + + + + + + + + | Specimen | + + | | + + + +---------+ + + | Performing | Address | City/State/Zipcode | Phone Number | | Organization | | | | + +---------+ + + | EXTERNAL LAB | | | | + +---------+ + + POC Glucose (03/11/2014 7:35 PM PDT) + + + + + + | Component | Value | Ref Range | Performed | Pathologist | | | | | At | Signature | + + + + + + | Glucose, | 211 (H)Comment: Testing | 65 - 99 mg/dL | EXTERNAL | | | Fingerstick | performed at [facility];[address] | | LAB | | | | [address];[place], [place] | | | | | | [address] | | | | + + + + + + + + | Specimen | + + | | + + + +---------+ + + | Performing | Address | City/State/Zipcode | Phone Number | | Organization | | | | + +---------+ + + | EXTERNAL LAB | | | | + +---------+ + + POC Glucose (03/11/2014 4:03 PM PDT) + + + + + + | Component | Value | Ref Range | Performed | Pathologist | | | | | At | Signature | + + + + + + | Glucose, | 185 (H)Comment: Testing | 65 - 99 mg/dL | EXTERNAL | | | Fingerstick | performed at [facility];[address] | | LAB | | | | [address];[place] | | | | | | [address] | | | | + + + + + + + + | Specimen | + + | | + + + +---------+ + + | Performing | Address | City/State/Zipcode | Phone Number | | Organization | | | | + +---------+ + + | EXTERNAL LAB | | | | + +---------+ + + Potassium (03/11/2014 3:07 PM PDT) + + + + + + | Component | Value | Ref Range | Performed | Pathologist | | | | | At | Signature | + + + + + + | K | 5.0 (H)Comment: Testing | 3.5 - 4.9 | EXTERNAL | | | | performed at [facility];[address] | mmol/L | LAB | | | | [address];[place], [place] | | | | | | [address] | | | | + + + + + + + + | Specimen | + + | Blood specimen | | (specimen) | + + + +---------+ + + | Performing | Address | City/State/Zipcode | Phone Number | | Organization | | | | + +---------+ + + | EXTERNAL LAB | | | | + +---------+ + + POC Glucose (03/11/2014 12:48 PM PDT) + + + + + + | Component | Value | Ref Range | Performed | Pathologist | | | | | At | Signature | + + + + + + | Glucose, | 105 (H)Comment: Testing | 65 - 99 mg/dL | EXTERNAL | | | Fingerstick | performed at [facility] | | LAB | | | | [place] [address];[place] | | | | | | [address] | | | | + + + + + + + + | Specimen | + + | | + + + +---------+ + + | Performing | Address | City/State/Zipcode | Phone Number | | Organization | | | | + +---------+ + + | EXTERNAL LAB | | | | + +---------+ + + POC Glucose (03/11/2014 11:43 AM PDT) + + + + + + | Component | Value | Ref Range | Performed | Pathologist | | | | | At | Signature | + + + + + + | Glucose, | 112 (H)Comment: Testing | 65 - 99 mg/dL | EXTERNAL | | | Fingerstick | performed at [facility];[address] | | LAB | | | | [address];[place], [place] | | | | | | [address] | | | | + + + + + + + + | Specimen | + + | | + + + +---------+ + + | Performing | Address | City/State/Zipcode | Phone Number | | Organization | | | | + +---------+ + + | EXTERNAL LAB | | | | + +---------+ + + POC Glucose (03/11/2014 10:38 AM PDT) + + + + + + | Component | Value | Ref Range | Performed | Pathologist | | | | | At | Signature | + + + + + + | Glucose, | 135 (H)Comment: Testing | 65 - 99 mg/dL | EXTERNAL | | | Fingerstick | performed at [facility];[address] | | LAB | | | | [address];[place] | | | | | | [address] | | | | + + + + + + + + | Specimen | + + | | + + + +---------+ + + | Performing | Address | City/State/Zipcode | Phone Number | | Organization | | | | + +---------+ + + | EXTERNAL LAB | | | | + +---------+ + + Potassium (03/11/2014 9:40 AM PDT) + + + + + + | Component | Value | Ref Range | Performed | Pathologist | | | | | At | Signature | + + + + + + | K | 4.2Comment: Testing | 3.5 - 4.9 | EXTERNAL | | | | performed at [facility];888 | mmol/L | LAB | | | | [place] [address];[place] | | | | | | [address] | | | | + + + + + + + + | Specimen | + + | | + + + +---------+ + + | Performing | Address | City/State/Zipcode | Phone Number | | Organization | | | | + +---------+ + + | EXTERNAL LAB | | | | + +---------+ + + POC Glucose (03/11/2014 9:39 AM PDT) + + + + + + | Component | Value | Ref Range | Performed | Pathologist | | | | | At | Signature | + + + + + + | Glucose, | 153 (H)Comment: Testing | 65 - 99 mg/dL | EXTERNAL | | | Fingerstick | performed at [facility];[address] | | LAB | | | | [place] [address];[place] | | | | | | [address] | | | | + + + + + + + + | Specimen | + + | | + + + +---------+ + + | Performing | Address | City/State/Zipcode | Phone Number | | Organization | | | | + +---------+ + + | EXTERNAL LAB | | | | + +---------+ + + POC Glucose (03/11/2014 8:32 AM PDT) + + + + + + | Component | Value | Ref Range | Performed | Pathologist | | | | | At | Signature | + + + + + + | Glucose, | 180 (H)Comment: Testing | 65 - 99 mg/dL | EXTERNAL | | | Fingerstick | performed at [facility];[address] | | LAB | | | | [address];[place] | | | | | | [address] | | | | + + + + + + + + | Specimen | + + | | + + + +---------+ + + | Performing | Address | City/State/Zipcode | Phone Number | | Organization | | | | + +---------+ + + | EXTERNAL LAB | | | | + +---------+ + + POC Glucose (03/11/2014 7:24 AM PDT) + + + + + + | Component | Value | Ref Range | Performed | Pathologist | | | | | At | Signature | + + + + + + | Glucose, | 164 (H)Comment: Testing | 65 - 99 mg/dL | EXTERNAL | | | Fingerstick | performed at [facility];[address] | | LAB | | | | [address];[place], [place] | | | | | | [address] | | | | + + + + + + + + | Specimen | + + | | + + + +---------+ + + | Performing | Address | City/State/Zipcode | Phone Number | | Organization | | | | + +---------+ + + | EXTERNAL LAB | | | | + +---------+ + + POC Glucose (03/11/2014 6:20 AM PDT) + + + + + + | Component | Value | Ref Range | Performed | Pathologist | | | | | At | Signature | + + + + + + | Glucose, | 141 (H)Comment: Testing | 65 - 99 mg/dL | EXTERNAL | | | Fingerstick | performed at [facility] | | LAB | | | | [address];[place], [place] | | | | | | [address] | | | | + + + + + + + + | Specimen | + + | | + + + +---------+ + + | Performing | Address | City/State/Zipcode | Phone Number | | Organization | | | | + +---------+ + + | EXTERNAL LAB | | | | + +---------+ + + XR Chest 1 Vw (03/11/2014 5:52 AM PDT) + + | Specimen | + + | | + + + + + | Impressions | Performed At | + + + | 1. Changes to the tubes and lines, as above. 2. Increasing left | | | lower lobe atelectasis. 3. Unchanged mild interstitial edema. | | | | | + + + + + + | Narrative | Performed At | + + + | DENISE GASCA XR CHEST 1 VIEW 03/11/2014 5:52 AM HISTORY: | | | Tube placement. TECHNIQUE: One view of the chest. FINDINGS: | | | Compared with 03/10/14. Endotracheal and nasogastric tubes have been | | | removed. Other tubes and lines appear unchanged. No pneumothorax. | | | There is persistent cardiomegaly. Previous sternotomy. There is | | | increasing left lower lobe atelectasis. Mild perihilar interstitial | | | edema is unchanged. | | + + + + + | Procedure Note | + + | Pal, Rad Conversion - 01/18/2019 9:23 PM PDT DENISE STONE CHEST 1 | | VIEW03/11/2014 5:52 AM HISTORY:Tube placement. TECHNIQUE:One view of the chest. | | FINDINGS:Compared with 03/10/14. Endotracheal and nasogastric tubes have been removed. | | Other tubes and lines appear unchanged. No pneumothorax. There is persistent | | cardiomegaly. Previous sternotomy. There is increasing left lower lobe atelectasis. Mild | | perihilar interstitial edema is unchanged. IMPRESSION: 1. Changes to the tubes and | | lines, as above.2. Increasing left lower lobe atelectasis.3. Unchanged mild | | interstitial edema. | | AM | | | |FINDINGS: | |Compared with 03/10/14. Endotracheal and nasogastric tubes have been removed. Other tubes an d lines appear unchanged. No pneumothorax. There is persistent cardiomegaly. Previous sterno tal. There is increasing left | |lower lobe atelectasis. Mild perihilar | |interstitial edema is unchanged. | | | |IMPRESSION: | |1. Changes to the tubes and lines, as above. | |2. Increasing left lower lobe atelectasis. | |3. Unchanged mild interstitial edema. | | | | | + + POC Glucose (03/11/2014 5:15 AM PDT) + + + + + + | Component | Value | Ref Range | Performed | Pathologist | | | | | At | Signature | + + + + + + | Glucose, | 179 (H)Comment: Testing | 65 - 99 mg/dL | EXTERNAL | | | Fingerstick | performed at [facility];[address] | | LAB | | | | [address];[place] | | | | | | [address] | | | | + + + + + + + + | Specimen | + + | | + + + +---------+ + + | Performing | Address | City/State/Zipcode | Phone Number | | Organization | | | | + +---------+ + + | EXTERNAL LAB | | | | + +---------+ + + External Lab: TAMIE (03/11/2014 4:13 AM PDT) + + + + + + | Component | Value | Ref Range | Performed | Pathologist | | | | | At | Signature | + + + + + + | WBC | 19.6 (H)Comment: Testing | 3.8 - 11.0 K/uL | EXTERNAL | | | | performed at [facility], [address] | | LAB | | | | [address], | | | | | | [place] [address] | | | | + + + + + + | RED CELL | 3.07 (L)Comment: Testing | 4.20 - 5.70 | EXTERNAL | | | COUNT | performed at [facility], [address] | M/uL | LAB | | | | [address], | | | | | | [place] [address] | | | | + + + + + + | Hgb | 9.9 (L)Comment: Testing | 13.2 - 17.0 | EXTERNAL | | | | performed at [facility], [address] | g/dL | LAB | | | | [address], | | | | | | [place] [address] | | | | + + + + + + | Hematocrit, | 30.2 (L)Comment: Testing | 39.0 - 50.0 % | EXTERNAL | | | POC | performed at [facility], [address] | | LAB | | | | [address], | | | | | | [place] [address] | | | | + + + + + + | MCV | 98.4Comment: Testing | 80.0 - 100.0 fl | EXTERNAL | | | | performed at [facility], [address] | | LAB | | | | [address], | | | | | | [place] [address] | | | | + + + + + + | MCH | 32.3Comment: Testing | 27.0 - 34.0 pg | EXTERNAL | | | | performed at [facility], [address] | | LAB | | | | [address], | | | | | | [place] [address] | | | | + + + + + + | MCHC | 32.8Comment: Testing | 32.0 - 35.5 | EXTERNAL | | | | performed at [facility], [address] | g/dL | LAB | | | | [address], | | | | | | [place] [address] | | | | + + + + + + | RDW-CV | 58.2 (H)Comment: Testing | 37 - 53 fl | EXTERNAL | | | | performed at [facility], [address] | | LAB | | | | [address], | | | | | | [place] [address] | | | | + + + + + + | Platelet | 135 (L)Comment: Testing | 150 - 400 K/uL | EXTERNAL | | | Count | performed at [facility], [address] | | LAB | | | Plasma | [address], | | | | | | [place] [address] | | | | + + + + + + | MPV | 8.2Comment: Testing | fl | EXTERNAL | | | | performed at [facility], [address] | | LAB | | | | [address], | | | | | | [place] [address] | | | | + + + + + + | Differentia | MANUALComment: Testing | | EXTERNAL | | | l Type | performed at [facility], [address] | | LAB | | | | [address], | | | | | | [place] [address] | | | | + + + + + + | Segmented | 81Comment: Testing | % | EXTERNAL | | | Neutrophils | performed at [facility], [address] | | LAB | | | Manual | [address], | | | | | | [place] [address] | | | | + + + + + + | % Bands | 11Comment: Testing | % | EXTERNAL | | | | performed at [facility], [address] | | LAB | | | | [address], | | | | | | [place] [address] | | | | + + + + + + | % | 1Comment: Testing | % | EXTERNAL | | | Metamyelocy | performed at [facility], [address] | | LAB | | | tylor | [address], | | | | | | [place] [address] | | | | + + + + + + | Lymphocytes | 3Comment: Testing | % | EXTERNAL | | | Manual | performed at [facility], [address] | | LAB | | | | [address], | | | | | | [place] [address] | | | | + + + + + + | Monocytes | 4Comment: Testing | % | EXTERNAL | | | Manual | performed at [facility], [address] | | LAB | | | | [address], | | | | | | [place] [address] | | | | + + + + + + | Absolute | 15.8 (H)Comment: Testing | 1.9 - 7.4 K/uL | EXTERNAL | | | Neutrophils | performed at [facility], [address] | | LAB | | | | [address], | | | | | | [place] [address] | | | | + + + + + + | Bands | 2.2 (H)Comment: Testing | 0 - 0.2 K/uL | EXTERNAL | | | Manual | performed at [facility], [address] | | LAB | | | | [address], | | | | | | [place] [address] | | | | + + + + + + | Absolute | 0.2 (H)Comment: Testing | K/uL | EXTERNAL | | | Metamyelocy | performed at [facility], [address] | | LAB | | | [address]lor | [address], | | | | | | [place] [address] | | | | + + + + + + | Absolute | 0.6 (L)Comment: Testing | 1.0 - 3.9 K/uL | EXTERNAL | | | Lymphocytes | performed at [facility], [address] | | LAB | | | | [address], | | | | | | [place] [address] | | | | + + + + + + | Absolute | 0.8Comment: Testing | 0 - 0.8 K/uL | EXTERNAL | | | Monocytes | performed at [facility], [address] | | LAB | | | | [address], | | | | | | [place] [address] | | | | + + + + + + | RBC | 1+Comment: ANISONORMAL | | EXTERNAL | | | Morphology | PLT MORPHTesting | | LAB | | | | performed at [facility], [address] | | | | | | [address], | | | | | | [place] [address] | | | | | | | | | | + + + + + + + + | Specimen | + + | Blood specimen | | (specimen) | + + + +---------+ + + | Performing | Address | City/State/Zipcode | Phone Number | | Organization | | | | + +---------+ + + | EXTERNAL LAB | | | | + +---------+ + + Magnesium (03/11/2014 4:13 AM PDT) + + + + + + | Component | Value | Ref Range | Performed | Pathologist | | | | | At | Signature | + + + + + + | Magnesium | 2.6 (H)Comment: Testing | 1.7 - 2.4 mg/dL | EXTERNAL | | | | performed at [facility] | | LAB | | | | [address];[place], [place] | | | | | | [address] | | | | + + + + + + + + | Specimen | + + | Blood specimen | | (specimen) | + + + +---------+ + + | Performing | Address | City/State/Zipcode | Phone Number | | Organization | | | | + +---------+ + + | EXTERNAL LAB | | | | + +---------+ + + Hemoglobin A1C (03/11/2014 4:13 AM PDT) + + + + + + | Component | Value | Ref Range | Performed | Pathologist | | | | | At | Signature | + + + + + + | Hemoglobin | 5.4Comment: The [place] | 4.0 - 6.0 % | EXTERNAL | | | A1c | Diabetes Association | | LAB | | | | considers a hemoglobin | | | | | | A1c result of <7.0% to | | | | | | be the goal of diabetic | | | | | | therapy. When results | | | | | | are consistently >8.0%, | | | | | | the ADA suggests | | | | | | reevaluation of the | | | | | | treatment regimen. The | | | | | | testing method used is | | | | | | certified traceable to | | | | | | the Diabetes Control and | | | | | | Complications Trial | | | | | | reference method.Testing | | | | | | performed at [facility], [address] | | | | | | [address], | | | | | | [place] [address] | | | | + + + + + + | Glycohemogl | 108Comment: The ADA | mg/dL | EXTERNAL | | | obin | considers an eAG result | | LAB | | | (GHb),Total | of LT 154 mg/dL to be | | | | | | the goal of diabetic | | | | | | therapy. Estimated | | | | | | Average Glucose | | | | | | calculated from | | | | | | hemoglobin A1c by use of | | | | | | the ADA recommended | | | | | | formula.Testing | | | | | | performed at [facility], [address] | | | | | | [facility], | | | | | | [place] [address] | | | | + + + + + + + + | Specimen | + + | Blood specimen | | (specimen) | + + + +---------+ + + | Performing | Address | City/State/Zipcode | Phone Number | | Organization | | | | + +---------+ + + | EXTERNAL LAB | | | | + +---------+ + + Basic Metabolic Panel (03/11/2014 4:13 AM PDT) + + + + + + | Component | Value | Ref Range | Performed | Pathologist | | | | | At | Signature | + + + + + + | Na | 140Comment: Testing | 135 - 143 | EXTERNAL | | | | performed at [facility];[address] | mmol/L | LAB | | | | [address];[place] | | | | | | [address] | | | | + + + + + + | K | 5.0 (H)Comment: Testing | 3.5 - 4.9 | EXTERNAL | | | | performed at [facility];[address] | mmol/L | LAB | | | | [address];[place] | | | | | | [address] | | | | + + + + + + | Cl | 109Comment: Testing | 99 - 109 mmol/L | EXTERNAL | | | | performed at [facility];[address] | | LAB | | | | [address];[place] | | | | | | [address] | | | | + + + + + + | CO2 | 24Comment: Testing | 23 - 32 mmol/L | EXTERNAL | | | | performed at [facility];[address] | | LAB | | | | [address];[place] | | | | | | [address] | | | | + + + + + + | Anion Gap | 12Comment: Testing | 5 - 20 mmol/L | EXTERNAL | | | | performed at [facility];[address] | | LAB | | | | [address];[place] | | | | | | [address] | | | | + + + + + + | Glucose, | 147 (H)Comment: Testing | 65 - 99 mg/dL | EXTERNAL | | | Fasting | performed at [facility];[address] | | LAB | | | | [address];[place] | | | | | | [address] | | | | + + + + + + | BUN | 19Comment: Testing | 8 - 25 mg/dL | EXTERNAL | | | | performed at [facility];[address] | | LAB | | | | [address];[place] | | | | | | [address] | | | | + + + + + + | Creatinine | 1.00Comment: Testing | 0.70 - 1.30 | EXTERNAL | | | | performed at [facility];[address] | mg/dL | LAB | | | | [address];[place] | | | | | | [address] | | | | + + + + + + | BUN/Creatin | 19Comment: Testing | | EXTERNAL | | | ine Ratio | performed at [facility];[address] | | LAB | | | | [address];[place] | | | | | | [address] | | | | + + + + + + | Calcium | 8.3 (L)Comment: Testing | 8.5 - 10.2 | EXTERNAL | | | | performed at [facility];[address] | mg/dL | LAB | | | | [address];[place] | | | | | | [address] | | | | + + + + + + | Estimated | >60Comment: GFR <60: | mL/min/1.73m2 | EXTERNAL | | | GFR | CHRONIC KIDNEY DISEASE, | | LAB | | | | IF FOUND OVER A 3 MONTH | | | | | | PERIOD.GFR <15: KIDNEY | | | | | | FAILURE.FOR | | | | | | AMERICANS, MULTIPLY THE | | | | | | CALCULATED GFR BY | | | | | | 1.210.Testing performed | | | | | | at [facility];[address];[place] [address] | | | | + + + + + + + + | Specimen | + + | Blood specimen | | (specimen) | + + + +---------+ + + | Performing | Address | City/State/Zipcode | Phone Number | | Organization | | | | + +---------+ + + | EXTERNAL LAB | | | | + +---------+ + + POC Glucose (03/11/2014 4:09 AM PDT) + + + + + + | Component | Value | Ref Range | Performed | Pathologist | | | | | At | Signature | + + + + + + | Glucose, | 152 (H)Comment: Testing | 65 - 99 mg/dL | EXTERNAL | | | Fingerstick | performed at [facility];[address] | | LAB | | | | [address];[place] | | | | | | [address] | | | | + + + + + + + + | Specimen | + + | | + + + +---------+ + + | Performing | Address | City/State/Zipcode | Phone Number | | Organization | | | | + +---------+ + + | EXTERNAL LAB | | | | + +---------+ + + POC Glucose (03/11/2014 2:10 AM PDT) + + + + + + | Component | Value | Ref Range | Performed | Pathologist | | | | | At | Signature | + + + + + + | Glucose, | 149 (H)Comment: Testing | 65 - 99 mg/dL | EXTERNAL | | | Fingerstick | performed at [facility];[address] | | LAB | | | | [address];[place] | | | | | | [address] | | | | + + + + + + + + | Specimen | + + | | + + + +---------+ + + | Performing | Address | City/State/Zipcode | Phone Number | | Organization | | | | + +---------+ + + | EXTERNAL LAB | | | | + +---------+ + + Potassium (03/11/2014 12:26 AM PDT) + + + + + + | Component | Value | Ref Range | Performed | Pathologist | | | | | At | Signature | + + + + + + | K | 4.3Comment: Testing | 3.5 - 4.9 | EXTERNAL | | | | performed at [facility];[address] | mmol/L | LAB | | | | [address];[place] | | | | | | [address] | | | | + + + + + + + + | Specimen | + + | Blood specimen | | (specimen) | + + + +---------+ + + | Performing | Address | City/State/Zipcode | Phone Number | | Organization | | | | + +---------+ + + | EXTERNAL LAB | | | | + +---------+ + + POC Glucose (03/11/2014 12:11 AM PDT) + + + + + + | Component | Value | Ref Range | Performed | Pathologist | | | | | At | Signature | + + + + + + | Glucose, | 148 (H)Comment: Testing | 65 - 99 mg/dL | EXTERNAL | | | Fingerstick | performed at [facility];[address] | | LAB | | | | [address];[place] | | | | | | [address] | | | | + + + + + + + + | Specimen | + + | | + + + +---------+ + + | Performing | Address | City/State/Zipcode | Phone Number | | Organization | | | | + +---------+ + + | EXTERNAL LAB | | | | + +---------+ + + Tissue Request For Pathology (03/11/2014 12:00 AM PDT) + + | Specimen | + + | Soft tissue sample | | (specimen) | + + + + + | Narrative | Performed At | + + + | SPECIMEN(S): A AORTIC VALVE SPECIMEN SOURCE: A. AORTIC VALVE | EXTERNAL LAB | | CLINICAL HISTORY: 03/10/2014 at 1805 H. Aortic valve stenosis. FINAL | | | PATHOLOGIC DIAGNOSIS: Aortic valve and tissue: -Aortic valve | | | with calcific degenerative change. GROSS DESCRIPTION: The specimen | | | is received in formalin labeled with the patient's name and designated | | | "Aortic valve and tissue" and consists of three valvular cusps that | | | have a free edge length of 1.8 cm, 2.4 cm, and 3.4 cm. The free edge | | | to resection margin distance is 1.1 cm, 0.9 cm and 0.8 cm | | | respectively. No vegetations are grossly identified. Two fenestrations | | | are present measuring 0.2 cm in greatest dimension. Serially | | | sectioning reveals areas of calcification. Also present within the | | | container are multiple yellow-duncan rubbery irregular calcified tissue | | | fragments that measure 3.5 x 1.5 x 1.0 cm in aggregate. | | | Rcis sections are submitted in cassette A1 and placed into | | | decal prior to processing. fam:pedro MICROSCOPIC EXAMINATION: | | | Histologic sections of all submitted blocks are examined by light | | | microscopy. These findings, together with the gross examination, | | | support the pathologic diagnosis. PERFORMING LABORATORY: | | | Professional interpretation and technical preparation was performed by | | | [email or web address], [address], | | | [place] [address] (Radiosonde Operator: David Dawson M.D.; | | | [facility]#: [id number]). Diagnostician: Ayad Briscoe MD Pathologist | | | Electronically Signed 03/12/2014 | | + + + + +---------+ + + | Performing | Address | City/State/Zipcode | Phone Number | | Organization | | | | + +---------+ + + | EXTERNAL LAB | | | | + +---------+ + + POC Glucose (03/10/2014 10:51 PM PDT) + + + + + + | Component | Value | Ref Range | Performed | Pathologist | | | | | At | Signature | + + + + + + | Glucose, | 139 (H)Comment: Testing | 65 - 99 mg/dL | EXTERNAL | | | Fingerstick | performed at [facility];[address] | | LAB | | | | [address];[place] | | | | | | [address] | | | | + + + + + + + + | Specimen | + + | | + + + +---------+ + + | Performing | Address | City/State/Zipcode | Phone Number | | Organization | | | | + +---------+ + + | EXTERNAL LAB | | | | + +---------+ + + ECG 12 lead (03/10/2014 10:09 PM PDT) + + + + + + | Component | Value | Ref Range | Performed | Pathologist | | | | | At | Signature | + + + + + + | DIAGNOSIS: | Ventricular-paced | | EXTERNAL | | | | rhythmFirst 2 beats are | | LAB | | | | paced from a different | | | | | | location at a faster | | | | | | rateAbnormal ECGWhen | | | | | | compared with ECG of | | | | | | 10-MAR-2014 11:21,No | | | | | | significant change was | | | | | | foundConfirmed by | | | | | | MEAGAN PEOPLES ([id number]) on | | | | | | 03/11/2014 2:21:40 PM | | | | + + + + + + + + | Specimen | + + | | + + + + + | Narrative | Performed At | + + + | Historically converted procedure from [facility] environment | EXTERNAL LAB | + + + + +---------+ + + | Performing | Address | City/State/Zipcode | Phone Number | | Organization | | | | + +---------+ + + | EXTERNAL LAB | | | | + +---------+ + + XR Chest 1 Vw (03/10/2014 8:58 PM PDT) + + | Specimen | + + | | + + + + + | Impressions | Performed At | + + + | 1. Support lines and tubes are in satisfactory position post | | | aortic valve replacement. 2. Cardiomegaly. Findings were | | | reported to ICU nurse Ruth by telephone at 03/10/2014 9:19 PM. | | | | | + + + + + + | Narrative | Performed At | + + + | DENISE GASCA XR CHEST 1 VIEW 03/10/2014 8:58 PM HISTORY: | | | 78 years. Male. Status post aortic valve replacement. Assess | | | lines and tubes. TECHNIQUE: 1 view of the chest obtained at 2030 | | | hours. COMPARISON: None. FINDINGS: The endotracheal tube tip | | | is 5 cm above the tatiana. A 2-lead ICD seen over the left chest | | | with intact leads in proper position. Nasogastric tube is seen with | | | its tip in the stomach. An aortic valve replacement is noted as well | | | as median sternotomy wires. Transvenous pacing presents are seen. | | | A left-sided [place] catheter sheath is seen with the [place] | | | retracted into the sheath. The heart is moderately enlarged. A | | | small left-sided pleural effusion is present. A curvilinear line is | | | seen overlying the left chest wall. It is unclear if this | | | represents a chest tube. 2 mediastinal drains are present entering | | | from a subxiphoid approach. No pneumothorax is demonstrated. The | | | osseous structures are intact. | | + + + + + | Procedure Note | + + | Pal Raudel Conversion - 01/18/2019 9:23 PM PDT DENISE STONE CHEST 1 | | VIEW03/10/2014 8:58 PM HISTORY:78 years. Male. Status post aortic valve replacement. | | Assess lines and tubes. TECHNIQUE:1 view of the chest obtained at 2030 hours. | | COMPARISON:None. FINDINGS:The endotracheal tube tip is 5 cm above the [place]. A 2-lead | | ICD seen over the left chest with intact leads in proper position. Nasogastric tube is | | seen with its tip in the stomach. An aortic valve replacement is noted as well as | | median sternotomy wires. Transvenous pacing presents are seen. A left-sided [place] | | catheter sheath is seen with the [place] retracted into the sheath. The heart is | | moderately enlarged. A small left-sided pleural effusion is present. A curvilinear | | line is seen overlying the left chest wall. It is unclear if this represents a chest | | tube. 2 mediastinal drains are present entering from a subxiphoid approach.No | | pneumothorax is demonstrated. The osseous structures are intact. IMPRESSION: 1. | | Support lines and tubes are in satisfactory position post aortic valve replacement.2. | | Cardiomegaly. Findings were reported to ICU nurse Ruth by telephone at 03/10/2014 9:19 | | PM. | |wires. Transvenous pacing presents are seen. A left-sided [place] catheter sheath is se en with the [place] retracted into the sheath. The heart is moderately enlarged. A smal l left-sided pleural effusion is | |present. A curvilinear line is seen | |overlying the left chest wall. It is unclear if this represents a chest tube. 2 mediastin al drains are present entering from a subxiphoid approach. | |No pneumothorax is demonstrated. The osseous structures are intact. | | | |IMPRESSION: | |1. Support lines and tubes are in satisfactory position post aortic valve replacement. | |2. Cardiomegaly. | | | |Findings were reported to ICU nurse Ruth by telephone at 03/10/2014 9:19 PM. | | | | | + + PTT (03/10/2014 8:50 PM PDT) + + + + + + | Component | Value | Ref Range | Performed | Pathologist | | | | | At | Signature | + + + + + + | aPTT, | 28Comment: Testing | 23 - 32 seconds | EXTERNAL | | | Patient | performed at [facility];[address] | | LAB | | | | [address];[place], [place] | | | | | | [address] | | | | + + + + + + + + | Specimen | + + | Blood specimen | | (specimen) | + + + +---------+ + + | Performing | Address | City/State/Zipcode | Phone Number | | Organization | | | | + +---------+ + + | EXTERNAL LAB | | | | + +---------+ + + Protime INR (03/10/2014 8:50 PM PDT) + + + + + + | Component | Value | Ref Range | Performed | Pathologist | | | | | At | Signature | + + + + + + | INR | 1.6Comment: REFERENCE | | EXTERNAL | | | | RANGE:0.9 - 1.2 | | LAB | | | | NON-ANTICOAGULATED2.0 | | [...] | | | performed at [facility] | | | | | | [address];[place], [place] | | | | | | [address] | | | | + + + + + + + + | Specimen | + + | Blood specimen | | (specimen) | + + + +---------+ + + | Performing | Address | City/State/Zipcode | Phone Number | | Organization | | | | + +---------+ + + | EXTERNAL LAB | | | | + +---------+ + + Fibrinogen (03/10/2014 8:50 PM PDT) + + + + + + | Component | Value | Ref Range | Performed | Pathologist | | | | | At | Signature | + + + + + + | Fibrinogen | 226Comment: Testing | 200 - 450 mg/dL | EXTERNAL | | | | performed at [facility];[address] | | LAB | | | | [address];[place] | | | | | | [address] | | | | + + + + + + + + | Specimen | + + | Blood specimen | | (specimen) | + + + +---------+ + + | Performing | Address | City/State/Zipcode | Phone Number | | Organization | | | | + +---------+ + + | EXTERNAL LAB | | | | + +---------+ + + External Lab: CBC (03/10/2014 8:50 PM PDT) + + + + + + | Component | Value | Ref Range | Performed | Pathologist | | | | | At | Signature | + + + + + + | WBC | 22.2 (H)Comment: Testing | 3.8 - 11.0 K/uL | EXTERNAL | | | | performed at [facility];[address] | | LAB | | | | [address];[place] | | | | | | [address] | | | | + + + + + + | RED CELL | 3.19 (L)Comment: Testing | 4.20 - 5.70 | EXTERNAL | | | COUNT | performed at [facility];[address] | M/uL | LAB | | | | [address];[place] | | | | | | [address] | | | | + + + + + + | Hgb | 10.3 (L)Comment: Testing | 13.2 - 17.0 | EXTERNAL | | | | performed at [facility];[address] | g/dL | LAB | | | | [address];[place] | | | | | | [address] | | | | + + + + + + | Hematocrit, | 30.9 (L)Comment: Testing | 39.0 - 50.0 % | EXTERNAL | | | POC | performed at [facility];[address] | | LAB | | | | [address];[place] | | | | | | [address] | | | | + + + + + + | MCV | 96.9Comment: Testing | 80.0 - 100.0 fl | EXTERNAL | | | | performed at [facility];[address] | | LAB | | | | [address];[place] | | | | | | [address] | | | | + + + + + + | MCH | 32.4Comment: Testing | 27.0 - 34.0 pg | EXTERNAL | | | | performed at [facility];[address] | | LAB | | | | [address];[place] | | | | | | [address] | | | | + + + + + + | MCHC | 33.4Comment: Testing | 32.0 - 35.5 | EXTERNAL | | | | performed at [facility];[address] | g/dL | LAB | | | | [address];[place] | | | | | | [address] | | | | + + + + + + | RDW-CV | 56.9 (H)Comment: Testing | 37 - 53 fl | EXTERNAL | | | | performed at [facility];[address] | | LAB | | | | [address];[place] | | | | | | [address] | | | | + + + + + + | Platelet | 141 (L)Comment: Testing | 150 - 400 K/uL | EXTERNAL | | | Count | performed at [facility];[address] | | LAB | | | Plasma | [address];[place] | | | | | | [address] | | | | + + + + + + | MPV | 7.8Comment: Testing | fl | EXTERNAL | | | | performed at [facility];[address] | | LAB | | | | [address];[place] | | | | | | [address] | | | | + + + + + + | Differentia | AUTOMATEDComment: | | EXTERNAL | | | l Type | Testing performed at | | LAB | | | | [facility];[address];[place] [address] | | | | + + + + + + | % Segmented | 87.9Comment: Testing | % | EXTERNAL | | | | performed at [facility];[address] | | LAB | | | Neutrophils | [address];[place] | | | | | | [address] | | | | + + + + + + | % | 7.0Comment: Testing | % | EXTERNAL | | | Lymphocytes | performed at [facility];[address] | | LAB | | | | [address];[place] | | | | | | [address] | | | | + + + + + + | % Monocytes | 3.8Comment: Testing | % | EXTERNAL | | | | performed at [facility];[address] | | LAB | | | | [address];[place] | | | | | | [address] | | | | + + + + + + | % | 0.8Comment: Testing | % | EXTERNAL | | | Eosinophils | performed at [facility];[address] | | LAB | | | | [address];[place] | | | | | | [address] | | | | + + + + + + | % Basophils | 0.5Comment: Testing | % | EXTERNAL | | | | performed at [facility];[address] | | LAB | | | | [address];[place] | | | | | | [address] | | | | + + + + + + | Absolute | 19.5 (H)Comment: Testing | 1.9 - 7.4 K/uL | EXTERNAL | | | Segmented | performed at [facility];[address] | | LAB | | | Neutrophils | [address];[place] | | | | | | [address] | | | | + + + + + + | Absolute | 1.5Comment: Testing | 1.0 - 3.9 K/uL | EXTERNAL | | | Lymphocytes | performed at [facility];[address] | | LAB | | | | [address];[place] | | | | | | [address] | | | | + + + + + + | Absolute | 0.8Comment: Testing | 0 - 0.8 K/uL | EXTERNAL | | | Monocytes | performed at [facility];[address] | | LAB | | | | [address];[place] | | | | | | [address] | | | | + + + + + + | Absolute | 0.2Comment: Testing | 0 - 0.5 K/uL | EXTERNAL | | | Eosinophils | performed at [facility];[address] | | LAB | | | | [address];[place] | | | | | | [address] | | | | + + + + + + | Absolute | 0.1Comment: Testing | 0 - 0.1 K/uL | EXTERNAL | | | Basophils | performed at [facility];[address] | | LAB | | | | [address];[place] | | | | | | [address] | | | | + + + + + + | Differentia | SLIDE SCANNED, AGREES | | EXTERNAL | | | l Comments | WITH AUTOMATED | | LAB | | | | RESULTS.Comment: Testing | | | | | | performed at [facility];[address] | | | | | | [address];[place] | | | | | | [address] | | | | + + + + + + + + | Specimen | + + | Blood specimen | | (specimen) | + + + +---------+ + + | Performing | Address | City/State/Zipcode | Phone Number | | Organization | | | | + +---------+ + + | EXTERNAL LAB | | | | + +---------+ + + POC Glucose (03/10/2014 8:50 PM PDT) + + + + + + | Component | Value | Ref Range | Performed | Pathologist | | | | | At | Signature | + + + + + + | Glucose, | 146 (H)Comment: Testing | 65 - 99 mg/dL | EXTERNAL | | | Fingerstick | performed at [facility];[address] | | LAB | | | | [address];[place] | | | | | | [address] | | | | + + + + + + + + | Specimen | + + | | + + + +---------+ + + | Performing | Address | City/State/Zipcode | Phone Number | | Organization | | | | + +---------+ + + | EXTERNAL LAB | | | | + +---------+ + + Magnesium (03/10/2014 8:50 PM PDT) + + + + + + | Component | Value | Ref Range | Performed | Pathologist | | | | | At | Signature | + + + + + + | Magnesium | 2.8 (H)Comment: Testing | 1.7 - 2.4 mg/dL | EXTERNAL | | | | performed at [facility];[address] | | LAB | | | | [address];[place], [place] | | | | | | [address] | | | | + + + + + + + + | Specimen | + + | Blood specimen | | (specimen) | + + + +---------+ + + | Performing | Address | City/State/Zipcode | Phone Number | | Organization | | | | + +---------+ + + | EXTERNAL LAB | | | | + +---------+ + + Basic Metabolic Panel (03/10/2014 8:50 PM PDT) + + + + + + | Component | Value | Ref Range | Performed | Pathologist | | | | | At | Signature | + + + + + + | Na | 141Comment: Testing | 135 - 143 | EXTERNAL | | | | performed at [facility];[address] | mmol/L | LAB | | | | [address];[place] | | | | | | [address] | | | | + + + + + + | K | 4.8Comment: Testing | 3.5 - 4.9 | EXTERNAL | | | | performed at [facility];[address] | mmol/L | LAB | | | | [address];[place] | | | | | | [address] | | | | + + + + + + | Cl | 108Comment: Testing | 99 - 109 mmol/L | EXTERNAL | | | | performed at [facility];[address] | | LAB | | | | [address];[place] | | | | | | [address] | | | | + + + + + + | CO2 | 24Comment: Testing | 23 - 32 mmol/L | EXTERNAL | | | | performed at [facility];[address] | | LAB | | | | [address];[place] | | | | | | [address] | | | | + + + + + + | Anion Gap | 14Comment: Testing | 5 - 20 mmol/L | EXTERNAL | | | | performed at [facility];[address] | | LAB | | | | [address];[place] | | | | | | [address] | | | | + + + + + + | Glucose, | 129 (H)Comment: Testing | 65 - 99 mg/dL | EXTERNAL | | | Fasting | performed at [facility];[address] | | LAB | | | | [address];[place] | | | | | | [address] | | | | + + + + + + | BUN | 17Comment: Testing | 8 - 25 mg/dL | EXTERNAL | | | | performed at [facility];[address] | | LAB | | | | [address];[place] | | | | | | [address] | | | | + + + + + + | Creatinine | 0.94Comment: Testing | 0.70 - 1.30 | EXTERNAL | | | | performed at [facility];[address] | mg/dL | LAB | | | | [address];[place] | | | | | | [address] | | | | + + + + + + | BUN/Creatin | 19Comment: Testing | | EXTERNAL | | | ine Ratio | performed at [facility];[address] | | LAB | | | | [address];[place] | | | | | | [address] | | | | + + + + + + | Calcium | 8.3 (L)Comment: Testing | 8.5 - 10.2 | EXTERNAL | | | | performed at [facility];[address] | mg/dL | LAB | | | | [address];[place] | | | | | | [address] | | | | + + + + + + | Estimated | >60Comment: GFR <60: | mL/min/1.73m2 | EXTERNAL | | | GFR | CHRONIC KIDNEY DISEASE, | | LAB | | | | IF FOUND OVER A 3 MONTH | | | | | | PERIOD.GFR <15: KIDNEY | | | | | | FAILURE.FOR | | | | | | AMERICANS, MULTIPLY THE | | | | | | CALCULATED GFR BY | | | | | | 1.210.Testing performed | | | | | | at [facility];[address] [place] [address] | | | | | | [facility];[place] [address] | | | | + + + + + + + + | Specimen | + + | Blood specimen | | (specimen) | + + + +---------+ + + | Performing | Address | City/State/Zipcode | Phone Number | | Organization | | | | + +---------+ + + | EXTERNAL LAB | | | | + +---------+ + + Calcium, Ionized (03/10/2014 8:49 PM PDT) + + + + + + | Component | Value | Ref Range | Performed | Pathologist | | | | | At | Signature | + + + + + + | Calcium | 1.12Comment: Testing | 1.08 - 1.25 | EXTERNAL | | | (Calc) | performed at [facility];[address] | mmol/L | LAB | | | | [address];[place] | | | | | | [address] | | | | + + + + + + | pH, Bld | 7.331Comment: Testing | 7.300 - 7.450 | EXTERNAL | | | | performed at [facility];[address] | | LAB | | | | [address];[place] | | | | | | [address] | | | | + + + + + + + + | Specimen | + + | Blood specimen | | (specimen) | + + + +---------+ + + | Performing | Address | City/State/Zipcode | Phone Number | | Organization | | | | + +---------+ + + | EXTERNAL LAB | | | | + +---------+ + + ECHO Transesophageal (HELIO) - Periop (03/10/2014 7:30 PM PDT) + + | Specimen | + + | | + + + + + | Narrative | Performed At | + + + | This is a non-reportable procedure without a plaster form maker report and | | | is used for image storage only. Please review the operative | | | procedure notes for details on the procedure. | | + + + + + | Procedure Note | + + | Raudel Aguillon - 01/18/2019 9:23 PM PDT This is a non-reportable procedure | | without a plaster form maker report and isused for image storage only. Please review the | | operative procedure notesfor details on the procedure. | + + POC SHAWANDA, CG8, Arterial (03/10/2014 7:26 PM PDT) + + + + + + | Component | Value | Ref Range | Performed | Pathologist | | | | | At | Signature | + + + + + + | PH ART | 7.428Comment: Testing | 7.350 - 7.450 | EXTERNAL | | | | performed at [facility];[address] | | LAB | | | | [address];[place] | | | | | | [address] | | | | + + + + + + | PCO2 ART | 40Comment: Testing | 35 - 45 mmHg | EXTERNAL | | | | performed at [facility];[address] | | LAB | | | | [address];[place] | | | | | | [address] | | | | + + + + + + | PO2 ART | 268 (H)Comment: Testing | 80 - 105 mmHg | EXTERNAL | | | | performed at [facility];[address] | | LAB | | | | [address];[place] | | | | | | [address] | | | | + + + + + + | HCO3 ART | 27 (H)Comment: Testing | 22 - 26 mmol/L | EXTERNAL | | | | performed at [facility];[address] | | LAB | | | | [address];[place] | | | | | | [address] | | | | + + + + + + | POC | 28 (H)Comment: Testing | 23 - 27 mEq/L | EXTERNAL | | | APPEARANCE | performed at [facility];[address] | | LAB | | | UA | [address];[place] | | | | | | [address] | | | | + + + + + + | Base | 2Comment: Testing | 0 - 3 mEq/L | EXTERNAL | | | Excess, | performed at [facility];[address] | | LAB | | | Arterial | [address];[place] | | | | | | [address] | | | | + + + + + + | O2 SAT ART | 100 (H)Comment: Testing | 95 - 98 % | EXTERNAL | | | | performed at [facility];[address] | | LAB | | | | [address];[place] | | | | | | [address] | | | | + + + + + + | Sodium, POC | 136Comment: Testing | 135 - 145 mEq/L | EXTERNAL | | | | performed at [facility];[address] | | LAB | | | | [address];[place] | | | | | | [address] | | | | + + + + + + | Potassium, | 5.0Comment: Testing | 3.5 - 5.0 mEq/L | EXTERNAL | | | POC | performed at [facility];[address] | | LAB | | | | [address];[place] | | | | | | [address] | | | | + + + + + + | Ionized | 1.23Comment: Testing | 1.12 - 1.32 | EXTERNAL | | | Calcium, | performed at [facility];[address] | mmol/L | LAB | | | POC | [address];[place] | | | | | | [address] | | | | + + + + + + | Glucose, | 112 (H)Comment: Testing | 65 - 99 mg/dL | EXTERNAL | | | POC | performed at [facility];[address] | | LAB | | | | [address];[place] | | | | | | [address] | | | | + + + + + + | Hematocrit, | 25 (L)Comment: Testing | 40.0 - 50.0 % | EXTERNAL | | | POC | performed at [facility];[address] | | LAB | | | | [address];[place] | | | | | | [address] | | | | + + + + + + | Hemoglobin, | 8.5 (L)Comment: Testing | 13.7 - 16.7 | EXTERNAL | | | POC | performed at [facility];[address] | g/dL | LAB | | | | [address];[place] | | | | | | [address] | | | | + + + + + + + + | Specimen | + + | | + + + +---------+ + + | Performing | Address | City/State/Zipcode | Phone Number | | Organization | | | | + +---------+ + + | EXTERNAL LAB | | | | + +---------+ + + POC ISTAT, CG8, Arterial (03/10/2014 6:31 PM PDT) + + + + + + | Component | Value | Ref Range | Performed | Pathologist | | | | | At | Signature | + + + + + + | PH ART | 7.471 (H)Comment: | 7.350 - 7.450 | EXTERNAL | | | | Testing performed at | | LAB | | | | [facility];[address] | | | | | [address];[place] [address] | | | | + + + + + + | PCO2 ART | 38Comment: Testing | 35 - 45 mmHg | EXTERNAL | | | | performed at [facility];[address] | | LAB | | | | [address];[place] | | | | | | [address] | | | | + + + + + + | PO2 ART | 196 (H)Comment: Testing | 80 - 105 mmHg | EXTERNAL | | | | performed at [facility];[address] | | LAB | | | | [address];[place] | | | | | | [address] | | | | + + + + + + | HCO3 ART | 28 (H)Comment: Testing | 22 - 26 mmol/L | EXTERNAL | | | | performed at [facility];[address] | | LAB | | | | [address];[place] | | | | | | [address] | | | | + + + + + + | POC | 29 (H)Comment: Testing | 23 - 27 mEq/L | EXTERNAL | | | APPEARANCE | performed at [facility];[address] | | LAB | | | UA | [address];[place] | | | | | | [address] | | | | + + + + + + | Base | 4 (H)Comment: Testing | 0 - 3 mEq/L | EXTERNAL | | | Excess, | performed at [facility];[address] | | LAB | | | Arterial | [address];[place] | | | | | | [address] | | | | + + + + + + | O2 SAT ART | 100 (H)Comment: Testing | 95 - 98 % | EXTERNAL | | | | performed at [facility];[address] | | LAB | | | | [address];[place] | | | | | | [address] | | | | + + + + + + | Sodium, POC | 137Comment: Testing | 135 - 145 mEq/L | EXTERNAL | | | | performed at [facility];[address] | | LAB | | | | [address];[place] | | | | | | [address] | | | | + + + + + + | Potassium, | 5.8 (H)Comment: Testing | 3.5 - 5.0 mEq/L | EXTERNAL | | | POC | performed at [facility];[address] | | LAB | | | | [address];[place] | | | | | | [address] | | | | + + + + + + | Ionized | 1.08 (L)Comment: Testing | 1.12 - 1.32 | EXTERNAL | | | Calcium, | performed at [facility];[address] | mmol/L | LAB | | | POC | [address];[place] | | | | | | [address] | | | | + + + + + + | Glucose, | 100 (H)Comment: Testing | 65 - 99 mg/dL | EXTERNAL | | | POC | performed at [facility];[address] | | LAB | | | | [address];[place] | | | | | | [address] | | | | + + + + + + | Hematocrit, | 25 (L)Comment: Testing | 40.0 - 50.0 % | EXTERNAL | | | POC | performed at [facility];[address] | | LAB | | | | [address];[place] | | | | | | [address] | | | | + + + + + + | Hemoglobin, | 8.5 (L)Comment: Testing | 13.7 - 16.7 | EXTERNAL | | | POC | performed at [facility];[address] | g/dL | LAB | | | | [address];[place], [place] | | | | | | [address] | | | | + + + + + + + + | Specimen | + + | | + + + +---------+ + + | Performing | Address | City/State/Zipcode | Phone Number | | Organization | | | | + +---------+ + + | EXTERNAL LAB | | | | + +---------+ + + POC SHAWANDA [id number], Arterial (03/10/2014 6:03 PM PDT) + + + + + + | Component | Value | Ref Range | Performed | Pathologist | | | | | At | Signature | + + + + + + | PH ART | 7.431Comment: Testing | 7.350 - 7.450 | EXTERNAL | | | | performed at [facility];[address] | | LAB | | | | [address];[place] | | | | | | [address] | | | | + + + + + + | PCO2 ART | 43Comment: Testing | 35 - 45 mmHg | EXTERNAL | | | | performed at [facility];[address] | | LAB | | | | [address];[place] | | | | | | [address] | | | | + + + + + + | PO2 ART | 264 (H)Comment: Testing | 80 - 105 mmHg | EXTERNAL | | | | performed at [facility];[address] | | LAB | | | | [address];[place] | | | | | | [address] | | | | + + + + + + | HCO3 ART | 29 (H)Comment: Testing | 22 - 26 mmol/L | EXTERNAL | | | | performed at [facility];[address] | | LAB | | | | [address];[place] | | | | | | [address] | | | | + + + + + + | POC | 30 (H)Comment: Testing | 23 - 27 mEq/L | EXTERNAL | | | APPEARANCE | performed at [facility];[address] | | LAB | | | UA | [address];[place] | | | | | | [address] | | | | + + + + + + | Base | 4 (H)Comment: Testing | 0 - 3 mEq/L | EXTERNAL | | | Excess, | performed at [facility];[address] | | LAB | | | Arterial | [address];[place] | | | | | | [address] | | | | + + + + + + | O2 SAT ART | 100 (H)Comment: Testing | 95 - 98 % | EXTERNAL | | | | performed at [facility];[address] | | LAB | | | | [address];[place] | | | | | | [address] | | | | + + + + + + | Sodium, POC | 137Comment: Testing | 135 - 145 mEq/L | EXTERNAL | | | | performed at [facility];[address] | | LAB | | | | [address];[place] | | | | | | [address] | | | | + + + + + + | Potassium, | 4.7Comment: Testing | 3.5 - 5.0 mEq/L | EXTERNAL | | | POC | performed at [facility];[address] | | LAB | | | | [address];[place] | | | | | | [address] | | | | + + + + + + | Ionized | 1.09 (L)Comment: Testing | 1.12 - 1.32 | EXTERNAL | | | Calcium, | performed at [facility];888 | mmol/L | LAB | | | POC | [address];[place] | | | | | | [address] | | | | + + + + + + | Glucose, | 96Comment: Testing | 65 - 99 mg/dL | EXTERNAL | | | POC | performed at [facility] [facility];[address] | | LAB | | | | [address];[place] | | | | | | [address] | | | | + + + + + + | Hematocrit, | 26 (L)Comment: Testing | 40.0 - 50.0 % | EXTERNAL | | | POC | performed at [facility];[address] | | LAB | | | | [address];[place] | | | | | | [address] | | | | + + + + + + | Hemoglobin, | 8.8 (L)Comment: Testing | 13.7 - 16.7 | EXTERNAL | | | POC | performed at [facility];888 | g/dL | LAB | | | | [address];[place] | | | | | | [address] | | | | + + + + + + + + | Specimen | + + | | + + + +---------+ + + | Performing | Address | City/State/Zipcode | Phone Number | | Organization | | | | + +---------+ + + | EXTERNAL LAB | | | | + +---------+ + + MITALI PARRA Arterial (03/10/2014 5:36 PM PDT) + + + + + + | Component | Value | Ref Range | Performed | Pathologist | | | | | At | Signature | + + + + + + | PH ART | 7.378Comment: Testing | 7.350 - 7.450 | EXTERNAL | | | | performed at [facility];[address] | | LAB | | | | [address];[place] | | | | | | [address] | | | | + + + + + + | PCO2 ART | 50 (H)Comment: Testing | 35 - 45 mmHg | EXTERNAL | | | | performed at [facility];[address] | | LAB | | | | [address];[place] | | | | | | [address] | | | | + + + + + + | PO2 ART | 303 (H)Comment: Testing | 80 - 105 mmHg | EXTERNAL | | | | performed at [facility];[address] | | LAB | | | | [address];[place] | | | | | | [address] | | | | + + + + + + | HCO3 ART | 29 (H)Comment: Testing | 22 - 26 mmol/L | EXTERNAL | | | | performed at [facility];[address] | | LAB | | | | [address];[place] | | | | | | [address] | | | | + + + + + + | POC | 31 (H)Comment: Testing | 23 - 27 mEq/L | EXTERNAL | | | APPEARANCE | performed at [facility];[address] | | LAB | | | UA | [address];[place] | | | | | | [address] | | | | + + + + + + | Base | 4 (H)Comment: Testing | 0 - 3 mEq/L | EXTERNAL | | | Excess, | performed at [facility];[address] | | LAB | | | Arterial | [address];[place] | | | | | | [address] | | | | + + + + + + | O2 SAT ART | 100 (H)Comment: Testing | 95 - 98 % | EXTERNAL | | | | performed at [facility];[address] | | LAB | | | | [address];[place] | | | | | | [address] | | | | + + + + + + | Sodium, POC | 135Comment: Testing | 135 - 145 mEq/L | EXTERNAL | | | | performed at [facility];[address] | | LAB | | | | [address];[place] | | | | | | [address] | | | | + + + + + + | Potassium, | 6.4 (HH)Comment: Testing | 3.5 - 5.0 mEq/L | EXTERNAL | | | POC | performed at [facility];[address] | | LAB | | | | [address];[place] | | | | | | [address] | | | | + + + + + + | Ionized | 1.07 (L)Comment: Testing | 1.12 - 1.32 | EXTERNAL | | | Calcium, | performed at [facility];[address] | mmol/L | LAB | | | POC | [address];[place] | | | | | | [address] | | | | + + + + + + | Glucose, | 101 (H)Comment: Testing | 65 - 99 mg/dL | EXTERNAL | | | POC | performed at [facility];[address] | | LAB | | | | [address];[place] | | | | | | [address] | | | | + + + + + + | Hematocrit, | 24 (L)Comment: Testing | 40.0 - 50.0 % | EXTERNAL | | | POC | performed at [facility];[address] | | LAB | | | | [address];[place] | | | | | | [address] | | | | + + + + + + | Hemoglobin, | 8.2 (L)Comment: Testing | 13.7 - 16.7 | EXTERNAL | | | POC | performed at [facility];888 | g/dL | LAB | | | | [address];[place] | | | | | | [address] | | | | + + + + + + + + | Specimen | + + | | + + + +---------+ + + | Performing | Address | City/State/Zipcode | Phone Number | | Organization | | | | + +---------+ + + | EXTERNAL LAB | | | | + +---------+ + + POC SHAWANDA, [id number], Arterial (03/10/2014 5:05 PM PDT) + + + + + + | Component | Value | Ref Range | Performed | Pathologist | | | | | At | Signature | + + + + + + | PH ART | 7.252 (L)Comment: | 7.350 - 7.450 | EXTERNAL | | | | Testing performed at | | LAB | | | | [facility];[address];[place] [phone] | | | | + + + + + + | PCO2 ART | 66 (HH)Comment: Testing | 35 - 45 mmHg | EXTERNAL | | | | performed at [facility];[address] | | LAB | | | | [address];[place] | | | | | | [address] | | | | + + + + + + | PO2 ART | 405 (H)Comment: Testing | 80 - 105 mmHg | EXTERNAL | | | | performed at [facility];[address] | | LAB | | | | [address];[place] | | | | | | [address] | | | | + + + + + + | HCO3 ART | 29 (H)Comment: Testing | 22 - 26 mmol/L | EXTERNAL | | | | performed at [facility];[address] | | LAB | | | | [address];[place] | | | | | | [address] | | | | + + + + + + | POC | 31 (H)Comment: Testing | 23 - 27 mEq/L | EXTERNAL | | | APPEARANCE | performed at [facility];[address] | | LAB | | | UA | [address];[place] | | | | | | [address] | | | | + + + + + + | Base | 2Comment: Testing | 0 - 3 mEq/L | EXTERNAL | | | Excess, | performed at [facility];[address] | | LAB | | | Arterial | [address];[place] | | | | | | [address] | | | | + + + + + + | O2 SAT ART | 100 (H)Comment: Testing | 95 - 98 % | EXTERNAL | | | | performed at [facility];[address] | | LAB | | | | [address];[place] | | | | | | [address] | | | | + + + + + + | Sodium, POC | 135Comment: Testing | 135 - 145 mEq/L | EXTERNAL | | | | performed at [facility];[address] | | LAB | | | | [address];[place] | | | | | | [address] | | | | + + + + + + | Potassium, | 4.4Comment: Testing | 3.5 - 5.0 mEq/L | EXTERNAL | | | POC | performed at [facility];[address] | | LAB | | | | [address];[place] | | | | | | [address] | | | | + + + + + + | Ionized | 1.21Comment: Testing | 1.12 - 1.32 | EXTERNAL | | | Calcium, | performed at [facility];888 | mmol/L | LAB | | | POC | [address];[place] | | | | | | [address] | | | | + + + + + + | Glucose, | 107 (H)Comment: Testing | 65 - 99 mg/dL | EXTERNAL | | | POC | performed at [facility];[address] | | LAB | | | | [address];[place] | | | | | | [address] | | | | + + + + + + | Hematocrit, | 32 (L)Comment: Testing | 40.0 - 50.0 % | EXTERNAL | | | POC | performed at [facility];[address] | | LAB | | | | [address];[place] | | | | | | [address] | | | | + + + + + + | Hemoglobin, | 10.9 (L)Comment: Testing | 13.7 - 16.7 | EXTERNAL | | | POC | performed at [facility];888 | g/dL | LAB | | | | [address];[place] | | | | | | [address] | | | | + + + + + + + + | Specimen | + + | | + + + +---------+ + + | Performing | Address | City/State/Zipcode | Phone Number | | Organization | | | | + +---------+ + + | EXTERNAL LAB | | | | + +---------+ + + POC ISTAT, CG8, Arterial (03/10/2014 3:07 PM PDT) + + + + + + | Component | Value | Ref Range | Performed | Pathologist | | | | | At | Signature | + + + + + + | PH ART | 7.411Comment: Testing | 7.350 - 7.450 | EXTERNAL | | | | performed at [facility] | | LAB | | | | [address];[place], [place] | | | | | | [address] | | | | + + + + + + | PCO2 ART | 45Comment: Testing | 35 - 45 mmHg | EXTERNAL | | | | performed at [facility];[address] | | LAB | | | | [address];[place] | | | | | | [address] | | | | + + + + + + | PO2 ART | 288 (H)Comment: Testing | 80 - 105 mmHg | EXTERNAL | | | | performed at [facility];[address] | | LAB | | | | [address];[place] | | | | | | [address] | | | | + + + + + + | HCO3 ART | 28 (H)Comment: Testing | 22 - 26 mmol/L | EXTERNAL | | | | performed at [facility];[address] | | LAB | | | | [address];[place] | | | | | | [address] | | | | + + + + + + | POC | 30 (H)Comment: Testing | 23 - 27 mEq/L | EXTERNAL | | | APPEARANCE | performed at [facility];[address] | | LAB | | | UA | [address];[place] | | | | | | [address] | | | | + + + + + + | Base | 4 (H)Comment: Testing | 0 - 3 mEq/L | EXTERNAL | | | Excess, | performed at [facility];[address] | | LAB | | | Arterial | [address];[place] | | | | | | [address] | | | | + + + + + + | O2 SAT ART | 100 (H)Comment: Testing | 95 - 98 % | EXTERNAL | | | | performed at [facility];[address] | | LAB | | | | [address];[place] | | | | | | [address] | | | | + + + + + + | Sodium, POC | 138Comment: Testing | 135 - 145 mEq/L | EXTERNAL | | | | performed at [facility];[address] | | LAB | | | | [address];[place] | | | | | | [address] | | | | + + + + + + | Potassium, | 3.8Comment: Testing | 3.5 - 5.0 mEq/L | EXTERNAL | | | POC | performed at [facility];[address] | | LAB | | | | [address];[place] | | | | | | [address] | | | | + + + + + + | Ionized | 1.22Comment: Testing | 1.12 - 1.32 | EXTERNAL | | | Calcium, | performed at [facility];888 | mmol/L | LAB | | | POC | [address];[place] | | | | | | [address] | | | | + + + + + + | Glucose, | 88Comment: Testing | 65 - 99 mg/dL | EXTERNAL | | | POC | performed at [facility];[address] | | LAB | | | | [address];[place] | | | | | | [address] | | | | + + + + + + | Hematocrit, | 30 (L)Comment: Testing | 40.0 - 50.0 % | EXTERNAL | | | POC | performed at [facility];[address] | | LAB | | | | [address];[place] | | | | | | [address] | | | | + + + + + + | Hemoglobin, | 10.2 (L)Comment: Testing | 13.7 - 16.7 | EXTERNAL | | | POC | performed at [facility];888 | g/dL | LAB | | | | [address];[place] | | | | | | [address] | | | | + + + + + + + + | Specimen | + + | | + + + +---------+ + + | Performing | Address | City/State/Zipcode | Phone Number | | Organization | | | | + +---------+ + + | EXTERNAL LAB | | | | + +---------+ + + POC Glucose (03/10/2014 1:23 PM PDT) + + + + + + | Component | Value | Ref Range | Performed | Pathologist | | | | | At | Signature | + + + + + + | Glucose, | 105 (H)Comment: Testing | 65 - 99 mg/dL | EXTERNAL | | | Fingerstick | performed at [facility];[address] | | LAB | | | | [address];[place] | | | | | | [address] | | | | + + + + + + + + | Specimen | + + | | + + + +---------+ + + | Performing | Address | City/State/Zipcode | Phone Number | | Organization | | | | + +---------+ + + | EXTERNAL LAB | | | | + +---------+ + + ECG 12 lead (03/10/2014 11:21 AM PDT) + + + + + + | Component | Value | Ref Range | Performed | Pathologist | | | | | At | Signature | + + + + + + | DIAGNOSIS: | Ventricular-paced | | EXTERNAL | | | | rhythmAbnormal ECGWhen | | LAB | | | | compared with ECG of | | | | | | 07-MAR-2008 12:29,No | | | | | | significant change since | | | | | | previous ECG Confirmed | | | | | | by MEAGAN PEOPLES ([id number]) | | | | | | on 03/10/2014 3:10:16 PM | | | | + + + + + + + + | Specimen | + + | | + + + + + | Narrative | Performed At | + + + | Historically converted procedure from [facility] | EXTERNAL LAB | + + + + +---------+ + + | Performing | Address | City/State/Zipcode | Phone Number | | Organization | | | | + +---------+ + + | EXTERNAL LAB | | | | + +---------+ + + PTT (03/10/2014 7:17 AM PDT) + + + + + + | Component | Value | Ref Range | Performed | Pathologist | | | | | At | Signature | + + + + + + | aPTT, | 67 (H)Comment: Testing | 23 - 32 seconds | EXTERNAL | | | Patient | performed at [facility];[address] | | LAB | | | | [address];[place] | | | | | | [address] | | | | + + + + + + + + | Specimen | + + | Blood specimen | | (specimen) | + + + +---------+ + + | Performing | Address | City/State/Zipcode | Phone Number | | Organization | | | | + +---------+ + + | EXTERNAL LAB | | | | + +---------+ + + Protime INR (03/10/2014 7:17 AM PDT) + + + + + + | Component | Value | Ref Range | Performed | Pathologist | | | | | At | Signature | + + + + + + | INR | 1.5Comment: REFERENCE | | EXTERNAL | | | | RANGE:0.9 - 1.2 | | LAB | | | | NON-ANTICOAGULATED2.0 | | [...] | | | performed at [facility] | | | | | | [facility];[place], [place] | | | | | | [address] | | | | + + + + + + + + | Specimen | + + | Blood specimen | | (specimen) | + + + +---------+ + + | Performing | Address | City/State/Zipcode | Phone Number | | Organization | | | | + +---------+ + + | EXTERNAL LAB | | | | + +---------+ + + PTT (03/10/2014 1:21 AM PDT) + + + + + + | Component | Value | Ref Range | Performed | Pathologist | | | | | At | Signature | + + + + + + | aPTT, | 73 (H)Comment: Testing | 23 - 32 seconds | EXTERNAL | | | Patient | performed at [facility];[address] | | LAB | | | | [address];[place] | | | | | | [address] | | | | + + + + + + + + | Specimen | + + | Blood specimen | | (specimen) | + + + +---------+ + + | Performing | Address | City/State/Zipcode | Phone Number | | Organization | | | | + +---------+ + + | EXTERNAL LAB | | | | + +---------+ + + XR Chest 2 Vws (03/09/2014 6:17 PM PDT) + + | Specimen | + + | | + + + + + | Impressions | Performed At | + + + | 1. Moderate cardiomegaly. 2. Prior mitral valve replacement | | | surgery. 3. Dual-lead right heart pacemaker. 4. Grade 1 | | | pulmonary venous hypertension. 5. Acute versus chronic bronchitis. | | | | | | 7:26 PM | | + + + + + + | Narrative | Performed At | + + + | [facility]AS[facility] XR CHEST 2 VIEW FRONTAL AND LATERAL 03/09/2014 | | | 6:17 PM History: 78 years. Male. Aortic valve disease. | | | Preoperative evaluation. Prior cardiac surgery. Technique: PA and | | | lateral views of the chest. Comparison: No prior chest radiography | | | at this facility.. Findings: Moderate cardiomegaly is noted. The | | | upper lobe pulmonary vasculature is distended, indicating grade 1 | | | pulmonary venous hypertension, a precursor to interstitial edema. No | | | visible pulmonary edema at present, however. Bronchial thickening is | | | moderate in the lower lung paige, suggesting acute or chronic | | | bronchitis. No lung consolidation or pleural effusion visualized. | | | Sternal wire sutures are noted. A prosthetic mitral valve is noted. | | | There are dual right heart pacemaker leads, in good position, via the | | | left subclavian vein. Both leads appear continuous. The thoracic | | | aorta is normal, without dilatation or calcification. The thoracic | | | vertebral bodies are normal in height, without compression fracture or | | | degenerative changes. No focal osteolytic or osteoblastic defect | | | visualized. Osteopenia is mild. | | + + + + + | Procedure Note | + + | Pal, Rad Conversion - 01/18/2019 9:23 PM [facility] DENISE STONE CHEST 2 VIEW FRONTAL | | AND JROTRVE42/5/2014 6:17 PM History: 78 years. Male. Aortic valve disease. | | Preoperative evaluation. Prior cardiac surgery. Technique: PA and lateral views of the | | chest.Comparison: No prior chest radiography at this facility.. Findings: Moderate | | cardiomegaly is noted. The upper lobe pulmonary vasculature is distended, indicating | | grade 1 pulmonary venous hypertension, a precursor to interstitial edema. No visible | | pulmonary edema at present, however. Bronchial thickening is moderate in the lower lung | | paige, suggesting acute or chronic bronchitis. No lung consolidation or pleural | | effusion visualized. Sternal wire sutures are noted. A prosthetic mitral valve is noted. | | There are dual right heart pacemaker leads, in good position, via the left subclavian | | vein. Both leads appear continuous. The thoracic aorta is normal, without dilatation | | or calcification. The thoracic vertebral bodies are normal in height, without | | compression fracture or degenerative changes. No focal osteolytic or osteoblastic | | defect visualized. Osteopenia is mild. IMPRESSION: 1. Moderate cardiomegaly.2. | | Prior mitral valve replacement surgery.3. Dual-lead right heart pacemaker.4. Grade 1 | | pulmonary venous hypertension.5. Acute versus chronic bronchitis. Electronically | | signed by Francisco J Smith MD on 03/09/2014 7:26 PM | |2. Prior mitral valve replacement surgery. | |3. Dual-lead right heart pacemaker. | |4. Grade 1 pulmonary venous hypertension. | |5. Acute versus chronic bronchitis. | | | | | | | + + PTT (03/09/2014 6:05 PM PDT) + + + + + + | Component | Value | Ref Range | Performed | Pathologist | | | | | At | Signature | + + + + + + | aPTT, | 70 (H)Comment: Testing | 23 - 32 seconds | EXTERNAL | | | Patient | performed at [facility];[address] | | LAB | | | | [address];[place], [place] | | | | | | [address] | | | | + + + + + + + + | Specimen | + + | Blood specimen | | (specimen) | + + + +---------+ + + | Performing | Address | City/State/Zipcode | Phone Number | | Organization | | | | + +---------+ + + | EXTERNAL LAB | | | | + +---------+ + + CT Chest wo Contrast (03/09/2014 2:24 PM PDT) + + | Specimen | + + | | + + + + + | Impressions | Performed At | + + + | 1. There is lymphadenopathy in the mediastinal and probably in the | | | hilar regions measuring up to 2.9 x 2.8 cm right paratracheal region. | | | Etiology is not specific. There is reticulonodular interstitial | | | change in both lung paige, and sarcoidosis would be one | | | consideration. Malignant etiology would be less likely, not excluded. | | | 2. I cannot exclude an element of interstitial edema with | | | associated subtle effusions. 3. Moderate 4 chamber cardiac | | | enlargement most prominent involving the left atrium, with mitral | | | valve replacement. 4. 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 5. | | | Sequential pacer. 6. Coronary artery disease. Electronically | | | signed by Joshua Kaba MD on 03/09/2014 3:19 PM | | + + + + + + | Narrative | Performed At | + + + | HISTORY: Preoperative evaluation for aortic valve replacement. | | | Aortic stenosis. COMPARISON: Coronary catheterization 03/09/14. | | | TECHNIQUE: 5-mm axial CT images were acquired through the chest. | | | Oral Contrast: None IV contrast: None. FINDINGS: Lymphadenopathy | | | right paratracheal region measuring up to 2.9 x 2.8 cm sequence 3 | | | image 23. Prevascular lymph nodes measure up to 1.6 x 1.0 cm. AP | | | window lymph nodes up to 1.3 x 0.7 cm. Right subcarinal lymph node 2.2 | | | x 1.3 cm. I suspect hilar adenopathy on the right measuring | | | approximately 2.0 x 1.5 cm, poorly defined. Lack of contrast limits | | | evaluation. Subtle bilateral pleural effusions. Reticulonodular | | | infiltrative change of both lung paige. Pleural thickening in the | | | posterior right upper lobe probably related to effusion measuring up | | | to 1 cm in thickness. Moderate cardiac enlargement, most prominent | | | involving the left atrium, with mitral prosthetic valve. Sequential | | | pacer over the left chest wall. Median sternotomy. Moderately | | | extensive coronary artery disease. Ectasia ascending aorta measuring | | | 4.9 cm AP by 5 cm transverse. Mild aortic atherosclerotic | | | calcification extending into the brachiocephalic. Scans through | | | the upper abdomen are unremarkable. Bone windows show moderate | | | spondylotic changes of the spine. | | + + + + + | Procedure Note | + + | Raudel Agulilon - 01/18/2019 9:23 PM PDT HISTORY:Preoperative evaluation for | | aortic valve replacement. Aortic stenosis. COMPARISON:Coronary catheterization 03/09/14. | | TECHNIQUE:5-mm axial CT images were acquired through the chest.Oral Contrast: NoneIV | | contrast: None. FINDINGS:Lymphadenopathy right paratracheal region measuring up to 2.9 x | | 2.8 cm sequence 3 image 23. Prevascular lymph nodes measure up to 1.6 x 1.0 cm. AP | | window lymph nodes up to 1.3 x 0.7 cm. Right subcarinal lymph node 2.2 x 1.3 cm. I | | suspect hilar adenopathy on the right measuring approximately 2.0 x 1.5 cm, poorly | | defined. Lack of contrast limits evaluation. Subtle bilateral pleural effusions. | | Reticulonodular infiltrative change of both lung paige. Pleural thickening in the | | posterior right upper lobe probably related to effusion measuring up to 1 cm in | | thickness. Moderate cardiac enlargement, most prominent involving the left atrium, with | | mitral prosthetic valve. Sequential pacer over the left chest wall. Median sternotomy. | | Moderately extensive coronary artery disease. Ectasia ascending aorta measuring 4.9 cm | | AP by 5 cm transverse. Mild aortic atherosclerotic calcification extending into the | | brachiocephalic. Scans through the upper abdomen are unremarkable. Bone windows show | | moderate spondylotic changes of the spine. IMPRESSION: 1. There is lymphadenopathy in | | the mediastinal and probably in the hilar regions measuring up to 2.9 x 2.8 cm right | | paratracheal region. Etiology is not specific. There is reticulonodular interstitial | | change in both lung paige, and sarcoidosis would be one consideration. Malignant | | etiology would be less likely, not excluded.2. I cannot exclude an element of | | interstitial edema with associated subtle effusions.3. Moderate 4 chamber cardiac | | enlargement most prominent involving the left atrium, with mitral valve replacement.4. 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 Sequential pacer.6. Coronary artery disease. | | | |IMPRESSION: | |1. There is lymphadenopathy in the mediastinal and probably in the hilar regions measuring up to 2.9 x 2.8 cm right paratracheal region. Etiology is not specific. There is reticulono dular interstitial change in both lung | |paige, and sarcoidosis would be | | one consideration. Malignant etiology would be less likely, not excluded. | |2. I cannot exclude an element of interstitial edema with associated subtle effusions. | |3. Moderate 4 chamber cardiac enlargement most prominent involving the left atrium, with m itral valve replacement. | |4. 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 | |5. Sequential pacer. | |6. Coronary artery disease. | | | | | + + VAS Carotid Duplex Bilateral (03/09/2014 2:12 PM PDT) + + | Specimen | + + | | + + + + + | Impressions | Performed At | + + + | 1. Mild bilateral plaques, but without evidence of flow | | | limitation. Electronically signed by Joshua Kaba MD on | | | 03/09/2014 2:16 PM | | + + + + + + | Narrative | Performed At | + + + | HISTORY: Preoperative evaluation aortic valve repair. | | | COMPARISON: None. TECHNIQUE: Sonographic imaging was performed | | | with a linear array transducer. Jolly scale, color flow, and spectral | | | Doppler techniques were utilized. FINDINGS: Right side: There | | | is mild atherosclerotic mixed plaque in the right carotid bulb and | | | origin of the internal and external carotid arteries, without flow | | | limitation. CCA-PROX PSV(cm/s)85 EDV (cm/s)18 | | | Grade (1-6)1 CCA-DIST PSV(cm/s)56 EDV (cm/s)16 | | | Grade (1-6)1 ICA-PROX PSV(cm/s)63 EDV (cm/s)17 | | | Grade (1-6)1 ICA-MID PSV(cm/s)83 EDV (cm/s)26 | | | Grade (1-6)1 ICA-DIST PSV(cm/s)39 EDV (cm/s)8 | | | Grade (1-6)1 ECA-PROX PSV(cm/s)51 EDV (cm/s)8 | | | Grade (1-6)1 Vertebral antegrade. Left side: Minimal soft plaque | | | in the mid left common carotid artery, with tortuosity left CCA. | | | There is mild mixed plaque in the left carotid bulb and origins of the | | | internal and external carotid arteries. Tortuosity of the internal | | | and external carotid arteries. No significant flow limitation. | | | CCA-PROX PSV(cm/s)70 EDV (cm/s)16 Grade (1-6)1 | | | CCA-DIST PSV(cm/s)47 EDV (cm/s)12 Grade (1-6)1 | | | ICA-PROX PSV(cm/s)74 EDV (cm/s)21 Grade (1-6)1 | | | ICA-MID PSV(cm/s)93 EDV (cm/s)22 Grade (1-6)1 | | | ICA-DIST PSV(cm/s)85 EDV (cm/s)23 Grade (1-6)1 | | | ECA-PROX PSV(cm/s)67 EDV (cm/s)8 Grade (1-6)1 | | | Vertebral antegrade Grades: 1 Stenosis =01-50% PSV | | | <125 cm/sec EDV (cm/s)<40 cm/sec (mild plaque) 2 | | | Stenosis =01-50% PSV <125 cm/sec EDV (cm/s)<40 cm/sec | | | (moderate plaque) 3 Stenosis =50-69% PSV >125 cm/sec | | | EDV (cm/s)>40 cm/sec 4 Stenosis =70-95% PSV >230 | | | cm/sec EDV (cm/s)>100 cm/sec 5 Stenosis =90-95% PSV | | | <125 cm/sec EDV (cm/s)<40 cm/sec 6 Stenosis Occluded | | | | | + + + + + | Procedure Note | + + | Pal, Rad Conversion - 01/18/2019 9:23 PM PDT HISTORY:Preoperative evaluation aortic | | valve repair. COMPARISON:None. TECHNIQUE:Sonographic imaging was performed with a linear | | array transducer. Jolly scale, color flow, and spectral Doppler techniques were | | utilized. FINDINGS:Right side:There is mild atherosclerotic mixed plaque in the right | | carotid bulb and origin of the internal and external carotid arteries, without flow | | limitation. CCA-PROX PSV(cm/s)85 EDV (cm/s)18 Grade (1-6)1CCA-DIST | | PSV(cm/s)56 EDV (cm/s)16 Grade (1-6)1ICA-PROX PSV(cm/s)63 EDV (cm/s)17 | | Grade (1-6)1ICA-MID PSV(cm/s)83 EDV (cm/s)26 Grade (1-6)1ICA-DIST | | PSV(cm/s)39 EDV (cm/s)8 Grade (1-6)1ECA-PROX PSV(cm/s)51 EDV | | (cm/s)8 Grade (1-6)1Vertebral antegrade. Left side:Minimal soft plaque in the mid | | left common carotid artery, with tortuosity left CCA. There is mild mixed plaque in the | | left carotid bulb and origins of the internal and external carotid arteries. Tortuosity | | of the internal and external carotid arteries. No significant flow limitation. CCA-PROX | | PSV(cm/s)70 EDV (cm/s)16 Grade (1-6)1CCA-DIST PSV(cm/s)47 EDV | | (cm/s)12 Grade (1-6)1ICA-PROX PSV(cm/s)74 EDV (cm/s)21 Grade | | (1-6)1ICA-MID PSV(cm/s)93 EDV (cm/s)22 Grade (1-6)1ICA-DIST | | PSV(cm/s)85 EDV (cm/s)23 Grade (1-6)1ECA-PROX PSV(cm/s)67 EDV (cm/s)8 | | Grade (1-6)1Vertebral antegrade Grades:1 Stenosis =01-50% PSV <125 cm/sec | | EDV (cm/s)<40 cm/sec (mild plaque)2 Stenosis =01-50% PSV <125 cm/sec EDV | | (cm/s)<40 cm/sec (moderate plaque)3 Stenosis =50-69% PSV >125 cm/sec EDV | | (cm/s)>40 cm/sec4 Stenosis =70-95% PSV >230 cm/sec EDV (cm/s)>100 cm/sec5 | | Stenosis =90-95% PSV <125 cm/sec EDV (cm/s)<40 cm/sec6 Stenosis | | Occluded IMPRESSION: 1. Mild bilateral plaques, but without evidence of flow | | limitation. | |No significant flow limitation. | | | |CCA-PROX PSV(cm/s)70 EDV (cm/s)16 Grade (1-6)1 | |CCA-DIST PSV(cm/s)47 EDV (cm/s)12 Grade (1-6)1 | |ICA-PROX PSV(cm/s)74 EDV (cm/s)21 Grade (1-6)1 | |ICA-MID PSV(cm/s)93 EDV (cm/s)22 Grade (1-6)1 | |ICA-DIST PSV(cm/s)85 EDV (cm/s)23 Grade (1-6)1 | |ECA-PROX PSV(cm/s)67 EDV (cm/s)8 Grade (1-6)1 | |Vertebral antegrade | | | |Grades: | |1 Stenosis =01-50% PSV <125 cm/sec EDV (cm/s)<40 cm/sec (mild plaque) | |2 Stenosis =01-50% PSV <125 cm/sec EDV (cm/s)<40 cm/sec (moderate plaque) | |3 Stenosis =50-69% PSV >125 cm/sec EDV (cm/s)>40 cm/sec | |4 Stenosis =70-95% PSV >230 cm/sec EDV (cm/s)>100 cm/sec | |5 Stenosis =90-95% PSV <125 cm/sec EDV (cm/s)<40 cm/sec | |6 Stenosis Occluded | | | |IMPRESSION: | |1. Mild bilateral plaques, but without evidence of flow limitation. | | | | | + + MRSA NAAT (03/09/2014 1:21 PM PDT) + + | Specimen | + + | | + + + + + | Narrative | Performed At | + + + | SOURCE NARES(NOSE) | EXTERNAL LAB | | Testing performed at [facility];[address] [place] [address];[place] [address] MRSA PCR | | | NEGATIVE Testing performed at | | | [address];[place] [address] | | + + + + +---------+ + + | Performing | Address | City/State/Zipcode | Phone Number | | Organization | | | | + +---------+ + + | EXTERNAL LAB | | | | + +---------+ + + CV CARDIAC PROCEDURE (03/09/2014 10:42 AM PDT) + + | Specimen | + + | | + + + + + | Narrative | Performed At | + + + | | | | | | | PROCEDURES 1. Right heart catheterization through the femoral vein. | | | 2. Left heart catheterization through the femoral artery. 3. | | | Selective coronary angiogram. 4. Left ventricular pressure recording | | | without left ventriculogram. INDICATIONS Mr. Gasca is a | | | 78-year-old gentleman who was evaluated by Dr. Fortune for severe aortic | | | valve stenosis. He has a history of a mechanical mitral valve | | | replacement and previously angioplasty for 2 of his artery. For | | | further evaluation of the aortic valve and for preoperative | | | assessment, he was referred for a left and right heart | | | catheterization. Please refer to Dr. Fortune for further details. | | | DESCRIPTION OF PROCEDURE The procedure details, alternatives, and | | | complications were explained for the patient. Informed consent was | | | obtained. The patient was brought to the room and prepped in a | | | sterile fashion. A timeout was performed. Conscious sedation was | | | administered by an independent observer. The right groin was | | | anesthetized with 1% lidocaine. Using a micropuncture needle the | | | right common femoral vein was cannulized with a 7-Egyptian sheath and | | | the right common femoral artery was cannulized with a 6-Egyptian | | | sheath. Over a guidewire a 5-Egyptian FL-4 diagnostic catheter was | | | advanced to the ascending aorta and found to be too short. So it was | | | exchanged for a 5-Egyptian FL-6 catheter that selectively engaged the | | | left main. Contrast was injected. A selective angiogram for the left | | | main, LAD, and left circumflex arteries was performed in different | | | views. Over a guidewire it was exchanged for a diagnostic 5-Egyptian | | | FR-4 catheter selectively engaging the right coronary artery. | | | Contrast was injected. A selective angiogram for the right coronary | | | artery was performed in different views. Over a guidewire it was | | | exchanged for a 5-Egyptian FR-4 diagnostic catheter that selectively | | | engaged the RCA. Contrast was injected. Selective angiogram for the | | | RCA was performed in different views. The catheter was removed. | | | Through the venous sheath, a [place] catheter was advanced to the | | | right atrial posterior. Right ventricle, PA, pulmonary capillary | | | wedged positions pressure was recorded. Cardiac output was measured | | | and calculated. Over a guidewire FR-4 diagnostic catheter was | | | advanced again to the ascending aorta. I tired to use it to cross the | | | aortic valve with no success, and so it was exchanged for 5-Egyptian | | | AL-1 diagnostic catheter with a fixed cord straight tip wire. I was | | | able to advance the AL-1 to the left ventricle, and the AL-1 was | | | exchanged over a 260 exchange wire to a 6-Egyptian Alex catheter | | | that was advanced to the left ventricle. Gradient across the aortic | | | valve was measured and the gradient across the mitral valve was | | | measured with the wedge position. Then the [place] catheter was | | | removed. The [place] catheter was removed over the guidewire, and | | | both sheaths were removed. Manual pressure was held for 20 minutes | | | with good hemostasis. The patient was transferred to the recovery | | | [facility] in stable condition. FINDINGS HEMODYNAMICS 1. Systemic | | | pressure 103/62. 2. Left ventricular end-diastolic pressure 21 mmHg. | | | 3. Ifcx-ed-feit gradient across the aortic valve 46 mmHg. 4. Peak | | | mean gradient across the aortic valve is 40 mmHg. 5. Calculated area | | | of the aortic valve by Brunilda is 0.73 cm squared. 6. Calculated area of | | | the aortic valve by thermodilution is 0.86 cm squared. 7. RA | | | pressure 80/13/16 mmHg. 8. RV pressure 71/19 mmHg. 9. PA pressure | | | 69/34 mmHg. 10. Pulmonary capillary wedge pressure 40/27/32 mmHg. | | | 11. Transmitral mean gradient is 11.7 mmHg. 12. Calculated area of | | | the mitral valve by Brunilda is 1.16 cm squared. 13. Cardiac output by | | | Brunilda 4.4 L/min. 14. Cardiac output by thermodilution 5 L/min. | | | ANGIOGRAM 1. Left main: Normal size, no significant stenosis. 2. LAD | | | is a normal size artery with no significant stenosis. 3. First and | | | third diagonals are absent. Second diagonal is tiny with no | | | significant stenosis. 4. Ramus is a normal size artery with patent | | | stent and 20% in-stent restenosis. 5. Left circumflex artery is a | | | patent artery with patent stent in the midportion. 6. First obtuse | | | marginal is absent. Second and third obtuse marginals are normal size | | | with no significant stenosis. 7. RCA is a large artery with no | | | significant stenosis, only 10% in the distal portion. 8. Right PDA | | | is normal size, no significant stenosis. 9. Right AV groove artery | | | normal size, no significant stenosis. It gives 1 small right | | | posterolateral artery with no significant stenosis. 10. Right | | | dominant circulation. COMPLICATIONS None. CONTRAST USED 44 | | | mL. ESTIMATED BLOOD LOSS Minimal. CONCLUSIONS 1. Two-vessel | | | disease with patent stents in ramus and mid left circumflex arteries. | | | 2. Severe pulmonary hypertension. 3. Severe elevated of the right | | | arterial pressure. 4. Severe aortic valve stenosis. 5. High gradient | | | across the mechanical mitral valve with a calculated area of 1.16. | | | RECOMMENDATIONS 1. Aortic valve replacement. 2. Aggressive risk | | | factor modification. Read by MIKAYLA GATES MD 03/09/2014 10:15 | | | A | | + + + + + | Procedure Note | + + | Raudel Aguillon - 01/23/2019 2:10 PM PDT | | | | PROCEDURES | | 1. Right heart catheterization through the femoral vein. | | 2. Left heart catheterization through the femoral artery. | | 3. Selective coronary angiogram. | | 4. Left ventricular pressure recording without left ventriculogram. | | | | INDICATIONS | | Mr. Gasca is a 78-year-old gentleman who was evaluated by Dr. Fortune for | | severe aortic valve stenosis. He has a history of a mechanical mitral | | valve replacement and previously angioplasty for 2 of his artery. For | | further evaluation of the aortic valve and for preoperative assessment, he | | was referred for a left and right heart catheterization. Please refer to | | Dr. Fortune for further details. | | | | DESCRIPTION OF PROCEDURE | | The procedure details, alternatives, and complications were explained for | | the patient. Informed consent was obtained. The patient was brought to the | | room and prepped in a sterile fashion. A timeout was performed. Conscious | | sedation was administered by an independent observer. The right groin was | | anesthetized with 1% lidocaine. | | | | Using a micropuncture needle the right common femoral vein was cannulized | | with a 7-Egyptian sheath and the right common femoral artery was cannulized | | with a 6-Egyptian sheath. Over a guidewire a 5-Egyptian FL-4 diagnostic | | catheter was advanced to the ascending aorta and found to be too short. So | | it was exchanged for a 5-Egyptian FL-6 catheter that selectively engaged the | | left main. Contrast was injected. A selective angiogram for the left main, | | LAD, and left circumflex arteries was performed in different views. Over a | | guidewire it was exchanged for a diagnostic 5-Egyptian FR-4 catheter | | selectively engaging the right coronary artery. Contrast was injected. A | | selective angiogram for the right coronary artery was performed in | | different views. Over a guidewire it was exchanged for a 5-Egyptian FR-4 | | diagnostic catheter that selectively engaged the RCA. Contrast was | | injected. Selective angiogram for the RCA was performed in different | | views. | | | | The catheter was removed. | | | | Through the venous sheath, a [place] catheter was advanced to the right | | atrial posterior. Right ventricle, PA, pulmonary capillary wedged | | positions pressure was recorded. Cardiac output was measured and | | calculated. | | | | Over a guidewire FR-4 diagnostic catheter was advanced again to the | | ascending aorta. I tired to use it to cross the aortic valve with no | | success, and so it was exchanged for 5-Egyptian AL-1 diagnostic catheter | | with a fixed cord straight tip wire. I was able to advance the AL-1 to the | | left ventricle, and the AL-1 was exchanged over a 260 exchange wire to a | | 6-Egyptian [place] catheter that was advanced to the left ventricle. | | Gradient across the aortic valve was measured and the gradient across the | | mitral valve was measured with the wedge position. Then the [place] | | catheter was removed. The [place] catheter was removed over the | | guidewire, and both sheaths were removed. Manual pressure was held for 20 | | minutes with good hemostasis. | | | | The patient was transferred to the recovery area in stable condition. | | | | FINDINGS | | | | HEMODYNAMICS | | 1. Systemic pressure 103/62. | | 2. Left ventricular end-diastolic pressure 21 mmHg. | | 3. Usra-lt-ffyg gradient across the aortic valve 46 mmHg. | | 4. Peak mean gradient across the aortic valve is 40 mmHg. | | 5. Calculated area of the aortic valve by Brunilda is 0.73 cm squared. | | 6. Calculated area of the aortic valve by thermodilution is 0.86 cm | | squared. | | 7. RA pressure 80/13/16 mmHg. | | 8. RV pressure 71/19 mmHg. | | 9. PA pressure 69/34 mmHg. | | 10. Pulmonary capillary wedge pressure 40/27/32 mmHg. | | 11. Transmitral mean gradient is 11.7 mmHg. | | 12. Calculated area of the mitral valve by Brunilda is 1.16 cm squared. | | 13. Cardiac output by Brunilda 4.4 L/min. | | 14. Cardiac output by thermodilution 5 L/min. | | | | ANGIOGRAM | | 1. Left main: Normal size, no significant stenosis. | | 2. LAD is a normal size artery with no significant stenosis. | | 3. First and third diagonals are absent. Second diagonal is tiny with no | | significant stenosis. | | 4. Ramus is a normal size artery with patent stent and 20% in-stent | | restenosis. | | 5. Left circumflex artery is a patent artery with patent stent in the | | midportion. | | 6. First obtuse marginal is absent. Second and third obtuse marginals are | | normal size with no significant stenosis. | | 7. RCA is a large artery with no significant stenosis, only 10% in the | | distal portion. | | 8. Right PDA is normal size, no significant stenosis. | | 9. Right AV groove artery normal size, no significant stenosis. It gives 1 | | small right posterolateral artery with no significant stenosis. | | 10. Right dominant circulation. | | | | COMPLICATIONS | | None. | | | | CONTRAST USED | | 44 mL. | | | | ESTIMATED BLOOD LOSS | | Minimal. | | | | CONCLUSIONS | | 1. 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 | | 2. Severe pulmonary hypertension. | | 3. Severe elevated of the right arterial pressure. | | 4. Severe aortic valve stenosis. | | 5. High gradient across the mechanical mitral valve with a calculated area | | of 1.16. | | | | RECOMMENDATIONS | | 1. Aortic valve replacement. | | 2. Aggressive risk factor modification. | | | | | | Read by MIKAYLA GATES MD 03/09/2014 10:15 A | | | | | + + PTT (03/09/2014 1:15 AM PDT) + + + + + + | Component | Value | Ref Range | Performed | Pathologist | | | | | At | Signature | + + + + + + | aPTT, | 81 ()Comment: CALLED | 23 - 32 seconds | EXTERNAL | | | Patient | NURSING [id number] | | LAB | | | | B AT 0235 BY [facility] BACK | | | | | | RESULTS VERIFIEDTesting | | | | | | performed at [facility];[address] | | | | | | [address];[place] | | | | | | [address] | | | | + + + + + + + + | Specimen | + + | | + + + +---------+ + + | Performing | Address | City/State/Zipcode | Phone Number | | Organization | | | | + +---------+ + + | EXTERNAL LAB | | | | + +---------+ + + Protime INR (03/09/2014 1:15 AM PDT) + + + + + + | Component | Value | Ref Range | Performed | Pathologist | | | | | At | Signature | + + + + + + | INR | 1.8Comment: REFERENCE | | EXTERNAL | | | | RANGE:0.9 - 1.2 | | LAB | | | | NON-ANTICOAGULATED2.0 | | [...] | | | performed at [facility];[address] | | | | | | [place] [facility];[place], [place] | | | | | | [address] | | | | + + + + + + + + | Specimen | + + | Blood specimen | | (specimen) | + + + +---------+ + + | Performing | Address | City/State/Zipcode | Phone Number | | Organization | | | | + +---------+ + + | EXTERNAL LAB | | | | + +---------+ + + PTT (03/08/2014 5:50 PM PDT) + + + + + + | Component | Value | Ref Range | Performed | Pathologist | | | | | At | Signature | + + + + + + | aPTT, | 160 ()Comment: CALLED | 23 - 32 seconds | EXTERNAL | | | Patient | TO [facility] AT | | LAB | | | | [address] BACK | | | | | | RESULTS VERIFIEDTesting | | | | | | performed at [facility];[address];[place], [place] | | | | | | [address] | | | | + + + + + + + + | Specimen | + + | Blood specimen | | (specimen) | + + + +---------+ + + | Performing | Address | City/State/Zipcode | Phone Number | | Organization | | | | + +---------+ + + | EXTERNAL LAB | | | | + +---------+ + + CBC no Differential (03/08/2014 10:46 AM PDT) + + + + + + | Component | Value | Ref Range | Performed | Pathologist | | | | | At | Signature | + + + + + + | WBC | 7.9Comment: Testing | 3.8 - 11.0 K/uL | EXTERNAL | | | | performed at [facility];[address] | | LAB | | | | [address];[place] | | | | | | [address] | | | | + + + + + + | RED CELL | 3.52 (L)Comment: Testing | 4.20 - 5.70 | EXTERNAL | | | COUNT | performed at [facility];[address] | M/uL | LAB | | | | [address];[place] | | | | | | [address] | | | | + + + + + + | Hgb | 11.4 (L)Comment: Testing | 13.2 - 17.0 | EXTERNAL | | | | performed at [facility];[address] | g/dL | LAB | | | | [address];[place] | | | | | | [address] | | | | + + + + + + | Hematocrit, | 34.1 (L)Comment: Testing | 39.0 - 50.0 % | EXTERNAL | | | POC | performed at [facility];[address] | | LAB | | | | [address];[place] | | | | | | [address] | | | | + + + + + + | MCV | 96.7Comment: Testing | 80.0 - 100.0 fl | EXTERNAL | | | | performed at [facility];[address] | | LAB | | | | [address];[place] | | | | | | [address] | | | | + + + + + + | MCH | 32.2Comment: Testing | 27.0 - 34.0 pg | EXTERNAL | | | | performed at [facility];[address] | | LAB | | | | [address];[place] | | | | | | [address] | | | | + + + + + + | MCHC | 33.3Comment: Testing | 32.0 - 35.5 | EXTERNAL | | | | performed at [facility];[address] | g/dL | LAB | | | | [address];[place] | | | | | | [address] | | | | + + + + + + | RDW-CV | 56.4 (H)Comment: Testing | 37 - 53 fl | EXTERNAL | | | | performed at [facility];[address] | | LAB | | | | [address];[place] | | | | | | [address] | | | | + + + + + + | Platelet | 178Comment: Testing | 150 - 400 K/uL | EXTERNAL | | | Count | performed at [facility];[address] | | LAB | | | Plasma | [address];[place] | | | | | | [address] | | | | + + + + + + | MPV | 8.1Comment: Testing | fl | EXTERNAL | | | | performed at [facility];[address] | | LAB | | | | [address];[place] | | | | | | [address] | | | | + + + + + + + + | Specimen | + + | | + + + +---------+ + + | Performing | Address | City/State/Zipcode | Phone Number | | Organization | | | | + +---------+ + + | EXTERNAL LAB | | | | + +---------+ + + PTT (03/08/2014 10:46 AM PDT) + + + + + + | Component | Value | Ref Range | Performed | Pathologist | | | | | At | Signature | + + + + + + | aPTT, | 34 (H)Comment: Testing | 23 - 32 seconds | EXTERNAL | | | Patient | performed at [facility];[address] | | LAB | | | | [address];[place], [place] | | | | | | [address] | | | | + + + + + + + + | Specimen | + + | Blood specimen | | (specimen) | + + + +---------+ + + | Performing | Address | City/State/Zipcode | Phone Number | | Organization | | | | + +---------+ + + | EXTERNAL LAB | | | | + +---------+ + + Protime INR (03/08/2014 10:46 AM PDT) + + + + + + | Component | Value | Ref Range | Performed | Pathologist | | | | | At | Signature | + + + + + + | INR | 2.2Comment: REFERENCE | | EXTERNAL | | | | RANGE:0.9 - 1.2 | | LAB | | | | NON-ANTICOAGULATED2.0 | | [...] | | | performed at [facility];[address] | | | | | | [place] [facility];[place], [place] | | | | | | [address] | | | | + + + + + + + + | Specimen | + + | Blood specimen | | (specimen) | + + + +---------+ + + | Performing | Address | City/State/Zipcode | Phone Number | | Organization | | | | + +---------+ + + | EXTERNAL LAB | | | | + +---------+ + + Protime INR (03/08/2014 4:28 AM PDT) + + + + + + | Component | Value | Ref Range | Performed | Pathologist | | | | | At | Signature | + + + + + + | INR | 2.2Comment: REFERENCE | | EXTERNAL | | | | RANGE:0.9 - 1.2 | | LAB | | | | NON-ANTICOAGULATED2.0 | | [...] | | | performed at [facility] | | | | | | [facility];[place], [place] | | | | | | [address] | | | | + + + + + + + + | Specimen | + + | Blood specimen | | (specimen) | + + + +---------+ + + | Performing | Address | City/State/Zipcode | Phone Number | | Organization | | | | + +---------+ + + | EXTERNAL LAB | | | | + +---------+ + + External Lab: CBC (03/07/2014 5:50 PM PDT) + + + + + + | Component | Value | Ref Range | Performed | Pathologist | | | | | At | Signature | + + + + + + | WBC | 8.0Comment: Testing | 3.8 - 11.0 K/uL | EXTERNAL | | | | performed at [facility], [address] | | LAB | | | | [address], | | | | | | [place] [address] | | | | + + + + + + | RED CELL | 3.27 (L)Comment: Testing | 4.20 - 5.70 | EXTERNAL | | | COUNT | performed at [facility], [address] | M/uL | LAB | | | | [address], | | | | | | [place] [address] | | | | + + + + + + | Hgb | 10.4 (L)Comment: Testing | 13.2 - 17.0 | EXTERNAL | | | | performed at [facility], [address] | g/dL | LAB | | | | [address], | | | | | | [place] [address] | | | | + + + + + + | Hematocrit, | 32.2 (L)Comment: Testing | 39.0 - 50.0 % | EXTERNAL | | | POC | performed at [facility], [address] | | LAB | | | | [address], | | | | | | [place] [address] | | | | + + + + + + | MCV | 98.6Comment: Testing | 80.0 - 100.0 fl | EXTERNAL | | | | performed at [facility], [address] | | LAB | | | [address], | | | | | | [place] [address] | | | | + + + + + + | MCH | 31.9Comment: Testing | 27.0 - 34.0 pg | EXTERNAL | | | | performed at [facility], [address] | | LAB | | | | [address], | | | | | | [place] [address] | | | | + + + + + + | MCHC | 32.4Comment: Testing | 32.0 - 35.5 | EXTERNAL | | | | performed at [facility], [address] | g/dL | LAB | | | | [address], | | | | | | [place] [address] | | | | + + + + + + | RDW-CV | 56.9 (H)Comment: Testing | 37 - 53 fl | EXTERNAL | | | | performed at [facility], [address] | | LAB | | | | [address], | | | | | | [place] [address] | | | | + + + + + + | Platelet | 168Comment: Testing | 150 - 400 K/uL | EXTERNAL | | | Count | performed at [facility], [address] | | LAB | | | Plasma | [address], | | | | | | [place] [address] | | | | + + + + + + | MPV | 8.7Comment: Testing | fl | EXTERNAL | | | | performed at [facility], [address] | | LAB | | | | [address], | | | | | | [place] [address] | | | | + + + + + + | Differentia | AUTOMATEDComment: | | EXTERNAL | | | l Type | Testing performed at | | LAB | | | | [facility], [address] | | | | | | [place] | | | | | | [address] | | | | + + + + + + | % Segmented | 81.1Comment: Testing | % | EXTERNAL | | | | performed at [facility], [address] | | LAB | | | Neutrophils | [address], | | | | | | [place] [address] | | | | + + + + + + | % | 8.6Comment: Testing | % | EXTERNAL | | | Lymphocytes | performed at [facility], [address] | | LAB | | | | [address], | | | | | | [place] [address] | | | | + + + + + + | % Monocytes | 7.2Comment: Testing | % | EXTERNAL | | | | performed at [facility], [address] | | LAB | | | | [address], | | | | | | [place] [address] | | | | + + + + + + | % | 2.2Comment: Testing | % | EXTERNAL | | | Eosinophils | performed at [facility], [address] | | LAB | | | | [address], | | | | | | [place] [address] | | | | + + + + + + | % Basophils | 0.9Comment: Testing | % | EXTERNAL | | | | performed at [facility], [address] | | LAB | | | | [address], | | | | | | [place] [address] | | | | + + + + + + | Absolute | 6.5Comment: Testing | 1.9 - 7.4 K/uL | EXTERNAL | | | Segmented | performed at [facility], [address] | | LAB | | | Neutrophils | [address], | | | | | | [place] [address] | | | | + + + + + + | Absolute | 0.7 (L)Comment: Testing | 1.0 - 3.9 K/uL | EXTERNAL | | | Lymphocytes | performed at [facility], [address] | | LAB | | | | [address], | | | | | | [place] [address] | | | | + + + + + + | Absolute | 0.6Comment: Testing | 0 - 0.8 K/uL | EXTERNAL | | | Monocytes | performed at [facility], [address] | | LAB | | | | [address], | | | | | | [place] [address] | | | | + + + + + + | Absolute | 0.2Comment: Testing | 0 - 0.5 K/uL | EXTERNAL | | | Eosinophils | performed at [facility], [address] | | LAB | | | | [address], | | | | | | [place] [address] | | | | + + + + + + | Absolute | 0.1Comment: Testing | 0 - 0.1 K/uL | EXTERNAL | | | Basophils | performed at [facility], [address] | | LAB | | | | [address], | | | | | | [place] [address] | | | | + + + + + + + + | Specimen | + + | Blood specimen | | (specimen) | + + + +---------+ + + | Performing | Address | City/State/Zipcode | Phone Number | | Organization | | | | + +---------+ + + | EXTERNAL LAB | | | | + +---------+ + + Comprehensive Metabolic Panel (03/07/2014 5:50 PM PDT) + + + + + + | Component | Value | Ref Range | Performed | Pathologist | | | | | At | Signature | + + + + + + | Na | 134 (L)Comment: Testing | 135 - 143 | EXTERNAL | | | | performed at [facility], [address] | mmol/L | LAB | | | | [address], | | | | | | [place] [address] | | | | + + + + + + | K | 4.2Comment: Testing | 3.5 - 4.9 | EXTERNAL | | | | performed at [facility], [address] | mmol/L | LAB | | | | [address], | | | | | | [place] [address] | | | | + + + + + + | Cl | 100Comment: Testing | 99 - 109 mmol/L | EXTERNAL | | | | performed at [facility], [address] | | LAB | | | | [address], | | | | | | [place] [address] | | | | + + + + + + | CO2 | 29Comment: Testing | 23 - 32 mmol/L | EXTERNAL | | | | performed at [facility], [address] | | LAB | | | | [address], | | | | | | [place] [address] | | | | + + + + + + | Anion Gap | 9Comment: Testing | 5 - 20 mmol/L | EXTERNAL | | | | performed at [facility], [address] | | LAB | | | | [address], | | | | | | [place] [address] | | | | + + + + + + | Glucose, | 133 (H)Comment: Testing | 65 - 99 mg/dL | EXTERNAL | | | Fasting | performed at [facility], [address] | | LAB | | | | [address], | | | | | | [place] [address] | | | | + + + + + + | BUN | 31 (H)Comment: Testing | 8 - 25 mg/dL | EXTERNAL | | | | performed at [facility], [address] | | LAB | | | | [address], | | | | | | [place] [address] | | | | + + + + + + | Creatinine | 1.28Comment: Testing | 0.70 - 1.30 | EXTERNAL | | | | performed at [facility], [address] | mg/dL | LAB | | | | [address], | | | | | | [place] [address] | | | | + + + + + + | BUN/Creatin | 24Comment: Testing | | EXTERNAL | | | ine Ratio | performed at [facility], [address] | | LAB | | | | [address], | | | | | | [place] [address] | | | | + + + + + + | Calcium | 9.1Comment: Testing | 8.5 - 10.2 | EXTERNAL | | | | performed at [facility], [address] | mg/dL | LAB | | | | [address], | | | | | | [place] [address] | | | | + + + + + + | Protein, | 6.4Comment: Testing | 6.3 - 8.2 g/dL | EXTERNAL | | | Total | performed at [facility], [address] | | LAB | | | | [address], | | | | | | [place] [address] | | | | + + + + + + | Albumin | 3.6Comment: Testing | 3.3 - 4.8 g/dL | EXTERNAL | | | | performed at [facility], [address] | | LAB | | | | [address], | | | | | | [place] [address] | | | | + + + + + + | Globulin | 2.8Comment: Testing | 1.3 - 4.9 g/dL | EXTERNAL | | | | performed at [facility], [address] | | LAB | | | | [address], | | | | | | [place] [address] | | | | + + + + + + | A/G Ratio | 1.3Comment: Testing | 1.0 - 2.4 | EXTERNAL | | | | performed at [facility], [address] | | LAB | | | | [address], | | | | | | [place], [place] [address] | | | | + + + + + + | Bilirubin | 1.3Comment: Testing | 0.1 - 1.5 mg/dL | EXTERNAL | | | Total | performed at [facility], [address] | | LAB | | | | [address], | | | | | | [place] [address] | | | | + + + + + + | ALP, | 61Comment: Testing | 35 - 115 U/L | EXTERNAL | | | External | performed at [facility], [address] | | LAB | | | | [address], | | | | | | [place] [address] | | | | + + + + + + | AST | 26Comment: Testing | 10 - 45 U/L | EXTERNAL | | | | performed at [facility], [address] | | LAB | | | | [address], | | | | | | [place] [address] | | | | + + + + + + | ALT | 15Comment: Testing | 10 - 65 U/L | EXTERNAL | | | | performed at [facility], [address] | | LAB | | | | [address] [facility] [place], | | | | | | [place] [address] | | | | + + + + + + | Estimated | 58 (L)Comment: GFR <60: | mL/min/1.73m2 | EXTERNAL | | | GFR | CHRONIC KIDNEY DISEASE, | | LAB | | | | IF FOUND OVER A 3 MONTH | | | | | | PERIOD.GFR <15: KIDNEY | | | | | | FAILURE.FOR | | | | | | AMERICANS, MULTIPLY THE | | | | | | CALCULATED GFR BY | | | | | | 1.210.Testing performed | | | | | | at 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
--- OUTSIDE RECORDS SUMMARY | ~2019-06-03 | XMS | Encounter Summary ---
Demographics + + + | Address | [address] | | | [place] [address] | + + + | Home Phone | | + + + | Preferred Language | Unknown | + + + | Marital Status | | + + + | [employer] Affiliation | 1013 | + + + | Race | Unknown | + + + | Ethnic Group | Unknown | + + + Author + + + | Author | [facility] | | | and [place] | + + + | Organization | [facility] | | | [...] | | | | [place], [place] [address] | | + + + + + | Juana Gasca | ECON | [address] | | | | | [place] | | | | | [address] | | + + + + + | Juana Gasca | ECON | Unknown | | + + + + + Care Team Providers + +------+ + | Care Outpatient Pharmacy Manager Name | Role | Phone | [...] | 01/15/ | Refill | [facility] [place] | Abhinav, | Medication Refill | | 2015 | | PULMONARY [address] | [place] You MD | | | | | [place], | | | | | | [place] [address] | | | | | | [phone] | | | +--------+--------+ + + + [...] [place] | | | | | | [address] | | | | | | | | +--------+---------+ + + + documented as of this encounter Visit Diagnoses Not on filedocumented in this encounter"
--- OUTSIDE RECORDS SUMMARY | ~2019-06-03 | XMS | Encounter Summary ---
Demographics + + + | Address | [address] | | | [place] [address] | + + + | Home Phone [...] | | | | [place], [place] [address] | | + + + + + | Juana Ventura | ECON | [address] | | | | | [place] | | | | | [address] | | + + + + + | Juana Ventura | ECON | Unknown | | + + + + + Care Team Providers + +------+ + | Care Applications Engineer Manufacturing Name | Role | Phone | + [...] | | CONVERSION [address] | MD [address] | | | | | [address] | [place], [place] | | | | | [place], [place] | [phone] | | | | | [address] | | | | | | [phone] | | | +--------+ + + + [...] | | | | | [place] | | | | | | [address] | | | | | | | [...] | + + + | Patient Name: DENISE VENTURA Date of : 1935 | | [...] AV VTI: | | | 38.62 cm JUILAN Vmax: 1.81 cm2 JULIAN (VTI): 1.83 cm2 [...] | maxP.00 mmHg TR Vmax: 2.44 m/s People Manager: ROMAN | | | Authenticated by: Elif Hylton Report Date/Time: 12-22-2016 | | | 18:57:07 | | + + + + + | Procedure Note | + + | Pal, Rad Conversion - 01/24/2019 6:35 PM PDT Patient Name: DENISE VENTURA | | of : 1935 Performing Physician: Elif | | [facility] INDICATIONS------ | | -----CHRONIC AFIB, PACEMAKER, CAD [...] cmLVPWd: 1.30 | | cmLVOT Area: 4.44 [id number] Diam: 2.37 cm%FS: 29.59 %EF(Teich): 55.93 %ESV(Teich): [...] | | (A-L): 88.66 ml/m2LAAs A2C: 40.42 [id number] A-L A2C: 192.14 mlLALs A2C: 7.21 | | cmLAAs A4C: 44.95 se4KVVRP A-L A4C: 230.04 mlLALs A4C: 7.45 cmRAAs: 36.03 | | [id number] A-L: 181.00 mlRAESV MOD: 158.29 mlRALs: 6.08 cmTAPSE: 1.64 cmAV maxPG: | | 15.56 mmHgAV meanP.06 mmHgAV Vmax: 1.97 m/Lauren Vmean: 1.44 m/Lauren VTI: 38.62 | | cmAVA Vmax: 1.81 cm2AVA (VTI): 1.83 nt2YRWN Vmax: 0.00 cm2/m2AVAI (VTI): 0.00 | | [...] 29.00 mmHgTR maxP.00 mmHgTR Vmax: 2.44 m/s People Manager: ROMANAutmaria inesticated by: | | Elif Pascualflower hospitalReport Date/Time: 12-22-2016 18:57:07 IMPRESSION: 1. The left [...] |TR Vmax: 2.44 m/s | | | |People Manager: DBS | |Authenticated by: Elif Hylton | [...]
--- OUTSIDE RECORDS SUMMARY | ~2019-06-03 | XMS | Encounter Summary ---
Demographics + + + | Address | [address] | | | [place] [address] | + + + | Home Phone [...] | | | | [place], [place] [address] | | + + + + + | Juana Gasca | ECON | [address] | | | | | [place] | | | | | [address] | | + + + + + | Juana Gasca | ECON | Unknown | | + + + + + Care Team Providers + +------+ + | Care Public Space Attendant Name | Role | Phone | [...] + + | 12/29/ | Office | [facility] [place] | [place], | COPD (chronic | | 2014 | Visit | [address]ULMONARY [address] | Florence You MD | obstructive | | | | [place], | | pulmonary disease); | | | | [place] [address] | | Obstructive sleep | | | | [phone] | | apnea on BiPAP; | | | | | | 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 He notes he has not been dyspneic walking this. He can probably walk 1/4 to 1/2 mile without stopping. This has improved consi derably compared to 1/2 to 1 block before. He has been evaluated for nocturnal oxygen and does use it. He is currently on 1 L[facility] at [facility] ht bled in to his BiPAP machine. [...] times a year Aortic valve replacement/repair 03/10/2014 Joanie, carbon valve, Dr. Elizondo Cardiac catherization 03/09/2014 Bronchoscopy 1990s for foreign body removal Social History: History [...] inhaled tw ice daily 3 each 4 Znqzzzaodwu-Lsuwcbobo-Sci C-Mn (GLUCOSAMINE 1500 COMPLEX PO) Take 1,500 [...] mg by mouth nightly. Respiratory Therapy Supplies MISC Discontinue nebulizer. Fax to [facility]. [...] made to ensure accuracy; however, inadvertent computerized water quality analyst errors may be pre sent. documented in t his encounter Plan of Treatment +--------+---------+ + + + | Date | Type | Specialty | Care Team | Description | +--------+---------+ + + + | 10/22/ | Office | Cardiology | Elif Hylton, | | | 2019 | Visit | | MD Asad FIELDS | | | | | | [place], [place] | | | | | | [address] | | | | | | | [...]
--- OUTSIDE RECORDS SUMMARY | ~2019-06-03 | XMS | Encounter Summary ---
Demographics + + + | Address | [address] | | | [place] [address] | + + + | Home Phone | | + + + | Preferred Language | Unknown | + + + | Marital Status | | + + + | Jain Affiliation | 1013 | + + + | Race | Unknown | + + + | Ethnic Group | Unknown | + + + Author + + + | Author | [facility] | | | and [place] | + + + | Organization | [facility] | | [...] | | | | [place], [place] [address] | | + + + + + | Juana Ventura | ECON | [address] | | | | | [place] | | | | | [address] | | + + + + + | Juana Ventura | ECON | Unknown | | + + + + + Care Team Providers + +------+ + | Care Liquor Clerk Name | Role | Phone | [...] | | [address] | [place], [place] | | | | | [place], [place] | [phone] | | | | | [address] | | | | | | [phone] | | | +--------+ + + + [...] | | | | | [place] | | | | | | [address] | | | | | | | [...] | maxP.00 mmHg TR Vmax: 2.44 m/s Coal Handler: ROMAN | | | Authenticated by: Elif Hylton Report Date/Time: 12-22-2016 | | | 18:57:07 | | + + + + + | Procedure Note | + + | Pal, Rad Conversion - 01/24/2019 6:35 PM PDT Patient Name: DENISE VENTURA | | of : 1935 Performing Physician: Elif | | [facility] INDICATIONS------ | | -----CHRONIC AFIB, PACEMAKER, CAD [...] cmLVPWd: 1.30 | | cmLVOT Area: 4.44 [id number] Diam: 2.37 cm%FS: 29.59 %EF(Teich): 55.93 %ESV(Teich): [...] | | (A-L): 88.66 ml/m2LAAs A2C: 40.42 [id number] A-L A2C: 192.14 mlLALs A2C: 7.21 | | cmLAAs A4C: 44.95 vs2WIXDL A-L A4C: 230.04 mlLALs A4C: 7.45 cmRAAs: 36.03 | | kl0CPKAN A-L: 181.00 mlRAESV MOD: 158.29 mlRALs: 6.08 cmTAPSE: 1.64 cmAV maxPG: | | 15.56 mmHgAV meanP.06 mmHgAV Vmax: 1.97 m/Lauren Vmean: 1.44 m/Lauren VTI: 38.62 | | cmAVA Vmax: 1.81 cm2AVA (VTI): 1.83 nt2XOKF Vmax: 0.00 cm2/m2AVAI (VTI): 0.00 | | [...] 29.00 mmHgTR maxP.00 mmHgTR Vmax: 2.44 m/s Coal Handler: ROMANAutmaria inesticated by: | | Elif Pascualbrecksville va / crille hospitalReport Date/Time: 12-22-2016 18:57:07 IMPRESSION: 1. The [...] |TR Vmax: 2.44 m/s | | | |Coal Handler: DBS | |Authenticated by: Elif Hylton | [...]
--- OUTSIDE RECORDS SUMMARY | ~2019-06-03 | XMS | Clinical Summary ---
Demographics + + + | Address | [address] | | | [place] [address] | + + + | Home Phone | | + + + | Preferred Language | Unknown | + + + | Marital Status | | + + + | Druze Affiliation | 1013 | + + + | Race | Unknown | + + + | Ethnic Group | Unknown | + + + Author + + + | Author | [facility] | | | and [place] | + + + | Organization | [facility] | | | [...] | | | | [place], [place] [address] | | + + + + + | Juana Gasca | ECON | [address] | | | | | [place] | | | | | [address] | | + + + + + | Juana Gasca | ECON | Unknown | | + + + + + Care Team Providers + +------+ + | Care Cut Off Sawyer Name | Role | Phone | + [...] | (PRINIVIL,ZESTRIL) | Daily. | | | 420 | | e | | 2.5 MG tablet | | | | 12 | | | + + + +---------+------+------+-------+ | pravastatin | Take 80 mg by mouth | | 0 | 09/1 | | Activ | | (PRAVACHOL) 80 MG | nightly. | | | 4/20 | | e | | tablet | | | | 12 | | | + + + +---------+------+------+-------+ | levothyroxine | Take 150 mcg by | | 0 | 05/1 | | Activ | | (SYNTHROID, | mouth Daily. | | | 5/20 | | e | | LEVOTHROID) 150 [...] | | Inhale 1 puff into | | 0 | 03/2 | | Activ | | fluticasone-salmeter | the lungs 2 (two) | | | 8/20 | | e | | ol (ADVAIR, WIXELA | times daily. | | | 18 | | | | INHUB) 100-50 | | | | | | | | mcg/puff diskus | | | | | | | | inhaler | | | | | | | [...] + + +---------+------+------+-------+ | carvedilol (COREG) | Daily | | 0 | 05/1 | | Activ | | 3.125 mg tablet | | | | 3/20 | | e | | | | | | 19 | | [...] TABLETS BY | 360 | 1 | 03/05 | | Activ | | (DEMADEX) 20 mg | MOUTH 2 TIMES DAILY | tablet | | 09/22 | | e | | tablet | NEEDED. | | | 19 | | | + + + +---------+------+------+-------+ +---+ + | | Additional | | | informationPatient | | | taking differently: | | | 40 mg in AM, PM PRN, | | | Reported on | | | 04/03/2019 9:45 AM | +---+ + + + +---------+---+------+---+-------+ | tiotropium | INHALE THE CONTENTS | 90 | 3 | 03/05 | | Activ | | (SPIRIVA HANDIHALER) | OF 1 CAPSULE VIA | capsule | | 09/22 | | e | | 18 mcg inhalation | HANDIHALER DAILY | | | 19 | | | | capsule | | | | | | | + + +---------+---+------+---+-------+ | tamsulosin | Take 0.4 mg by mouth | | 0 | | | Activ | | (FLOMAX) 0.4 mg CAPS | nightly. | | | | | e | + + +---------+---+------+---+-------+ | aspirin 81 mg EC | Take 81 mg by mouth | | 0 | | | Activ | | tablet | Daily. | | | | | e | + + +---------+---+------+---+-------+ | Albuterol | Inhale into the | | 0 | | | Activ | | (VENTOLIN IN) | lungs. | | | | | e | + + +---------+---+------+---+-------+ Active Problems + + + | Problem | Noted Date | + + + | Gastro-esophageal reflux disease with esophagitis | 01/19/2019 | + + + | Centrilobular emphysema | 03/10/2016 | + + + | Rheumatic valvular disease | 04/03/2014 | + + + + + | Overview: Last Assessment & Plan: Hx MVR/AVR (RHD). 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 Anticoagulation managed by | | [facility].Hx CABG: no, but MVR 1995, [...] + + + | Overview: 03/10/2014 at [facility] | + + + + + | S/P MVR (mitral valve replacement) | 03/28/2014 | + + + | Cardiac pacemaker in situ | 02/27/2014 | + + + | Hypertension | 02/27/2014 | + + + + + | Overview: Last Assessment & Plan: HTN, controlled, continue | | current meds at current doses (carvedilol, lisinopril, | | torsemide). | + + + + + | Atrial fibrillation, chronic [...] bleeding or bruising.Pacemaker | | implanted 08/30/2007, [employer] Insignia 1291, SN: [id number] | | interrogation 04/16/2015: battery "good", 3+years, [...] Hypertension | | + + + | Hypothyroidism | | + + + | Osteoarthritis | | + + + | Otogenic vertigo | | + + + | Coronary atherosclerosis | | + + + + + [...] 08/30/2007, [employer] | | Insignia 1291, SN: [id number] Cath, 03/09/2014: RA: 80/13 mean | | [...] + + | 04/29/ | Telephone | Cardiology | Alicja Lloyd, | Weight Gain | | 2018 | | | RN | | +--------+ + + + + | 04/26/ | Telephone | Cardiology | Alicja Lloyd, | Weight Gain | 2018 | | | RN | | +--------+ + + + + | 04/03/ | Office | Cardiology | Elif Hylton, | Atrial fibrillation, | | 2018 | Visit | | MD | chronic (Primary | | | | | | Dx); Hypertension; | | | | | | Obstructive sleep | | | | | | apnea on BiPAP; S/P | | | | | | AVR (aortic valve | | | | | | replacement); S/P | | | | | | MVR (mitral valve | | | | | | replacement); | | | | | | Cardiac pacemaker in | | | | | | situ | +--------+ + + + + | 03/18/ | Refill | Pulmonology | Yuri Raymond | Medication Refill | | 2018 | | | Rush Raymond MD | | +--------+ + + + + | 03/18/ | Refill | Cardiology | Elif Hylton, | Medication Refill | | 2018 | | | | | +--------+ + + + + | 03/08/ | Office | Pulmonology | Yuri Raymond | Centrilobular | | 2018 | Visit | | Rush Raymond MD | emphysema (HCC) | | | | | | (Primary Dx); | | | | | | Chronic obstructive | | | | | | pulmonary disease, | | | | | | unspecified COPD | | | | | | type (HCC); MARY | | | | | | treated with BiPAP | +--------+ + + + + from [...] + + + | Blood Pressure | 104/52 | 04/03/2019 9:45 AM | | | | | PDT | | + + + + + | Pulse | 61 | 04/03/2019 9:45 AM | | | | | PDT [...] + | Oxygen Saturation | 96% | 04/03/2019 9:45 AM | | | | | PDT | | + + + + + | Inhaled Oxygen | - | - | | | Concentration | | | | + + + + + | Weight | 112.4 kg (247 lb | 04/03/2019 9:45 AM | | | | 14.4 oz) | PDT | | + + + + + | Height | 185.4 cm (6' 1") | 04/03/2019 9:45 AM | | | | | PDT | | + + + + + | Body Mass Index | 32.71 | 04/03/2019 9:45 AM | | | | | PDT | | + + + + + Plan of Treatment +--------+---------+ + + + | Date | Type | Specialty | Care Team | Description | +--------+---------+ + + + | 10/22/ | Office | Cardiology | Elif Hylton, | | | 2019 | Visit | | [address] | | | | | | [place], [place] | | | | | | [address] | | | | | | | | +--------+---------+ + + + + + + + [...] + + | Hemoglobin A1c | | 03/11/2014 | | | Screening | 5 | | | + + + + + | Adult Annual | | | | | Wellness Visit | 5 | | | + + + + + | Vaccine: | | 07/15/2016 | | | Dtap/Tdap/Td (2 - | 7 | | | | Td) | | | | + + + + + | Vaccine: | Completed | 07/01/2014, 05/01/2014, | | | Pneumococcal 65+ | | 03/01/2014, Additional history | | | | | exists | | + + + + + | Vaccine: Zoster | Completed | 03/23/2018, 10/16/2017 | | + + + + + | Vaccine: Influenza | Completed | 01/29/2019, 03/22/2018, | | | | | 02/03/2018, Additional history | | | | | [...] | Date | / Lot | + +------+-------+ +--------+--------+--------+ | Pacing Wire Dual | | N/A: | JORGITO | | 10/02/ | 030-00 | | 030-005 - | | Heart | MEDICAL | | 2018 | 5 / | | [id number]: Qty: 1 on | | | SPECIALTI - | | | /166 | | 03/10/2014 | | | WILS | | | | + +------+-------+ +--------+--------+--------+ | Pacing Wire Dual | | N/A: | JORGITO | | 10/02/ | 030-00 | | 030-005 - | | Heart | MEDICAL | | 2018 | 5 / | | [id number]: Qty: 1 on | | | SPECIALTI - | | | /166 | | 03/10/2014 | | | WILS | | | | + +------+-------+ +--------+--------+--------+ | Valve Aortic Mec 23mm | | N/A: | NA UNKNOWN | | 10/02/ | ONXACE | | Onxace-23 S/N - | | Heart | | | 2018 | -23 | | [id number]: Qty: 1 on | | | | | | [id number] | | 03/10/2014 | | | | | | 02 / | + +------+-------+ +--------+--------+--------+ | Pacing Wire Dual | | N/A: | JORGITO | | 09/02/ | 030-00 | | 030-005 - | | Heart | MEDICAL | | 2018 | 5 / | | [id number]: Qty: 1 on | | | SPECIALTI - | | | /164 | | 03/10/2014 | | | WILS | | | | + +------+-------+ +--------+--------+--------+ Procedures + +--------+ + + + | Procedure Name | Priori | Date/Time | Associated Diagnosis | Comments | | | ty | | | | + +--------+ + + + | DIAGNOSTIC REPORT - | | 03/04/2019 | | Results for this | | EXTERNAL SCAN | | 12:00 AM | | procedure are in the | | | | PDT | | results section. | + +--------+ + + + from Last 3 Months Results DIAGNOSTIC REPORT - EXTERNAL SCAN (03/04/2019 12:00 AM PDT) + + + | [...] | | + +--------+ +--------+ +---------+--------+ | [facility] | [facility] | [id number] | 06/05/19 | | | Medica | | MEDICARE PPO | HEALTH | | 19-Pre | | | re | | | CARE | | sent | | | | | | MDCR | | | | | | | | PPO | | | | | | + +--------+ +--------+ +---------+--------+ | MEDICARE | MEDICA | [id number] | 12/03/18 | [phone] | | Medica | | | RE | | 99-Pre | 5 | | re | | | PART A | | sent | | | | | | AND B | | | | | | + +--------+ +--------+ +---------+--------+ | [facility] | UNITED | [id number] | 06/05/19 | [phone] | | PPO [...] Serge Gasca | Person | Self | [birth year] | [address] | | | al/Fam | | 1935 | [phone] | [place], [place] | | | odalis | | | 0 (Home) | [address] | + +--------+ +--------+ + + | Serge Gasca | Person | Self | [birth year] | [address] | | | al/Fam | | 1935 | [phone] | [place], [place] | | | [place] | | | 0 (Home) | [address] | + +--------+ +--------+ + + Advance Directives + + + + + | Type | Date Recorded | Patient | Explanation | | | | 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
--- OUTSIDE RECORDS SUMMARY | ~2019-06-03 | XMS | Encounter Summary ---
Demographics + + + | Address | [address] | | | [place] [address] | + + + | Home Phone [...] | | | | [place], [place] [address] | | + + + + + | Juana Gasca | ECON | [address] | | | | | [place] | | | | | [address] | | + + + + + | Juana Gasca | ECON | Unknown | | + + + + + Care Team Providers + +------+ + | Care Granulator Operator Name | Role | Phone | + +------+ + | Timo Lorenzana | PCP | | | MD | | | + +------+ + Encounter Details +--------+ + + + + | Date | Type | Department | Care Team | Description | +--------+ + + + + | 02/06/ | Hospital | [facility] | Conversion | Diagnosis unknown | | 2015 | Encounter | CONVERSION DEP [address] | Transaction, | | | | | [address] | Provider Unknown | | | | | [place], [place] | | | | | | [address] | (Fax) | | | | | [phone] | | | +--------+ + + + [...] [place] | | | | | | [address] | | | | | | | [...]
--- OUTSIDE RECORDS SUMMARY | ~2019-06-03 | XMS | Encounter Summary ---
Demographics + + + | Address | [address] | | | [place] [address] | + + + | Home Phone | | + + + | Preferred Language | Unknown | + + + | Marital Status | | + + + | Yazidi Affiliation | 1013 | + + + [...] | | | | [place] [address] | | + + + + + | Juana Ventura | ECON | [address] | | | | | [place] | | | | | [address] | | + + + + + | Juana Ventura | ECON | Unknown | | + + + + + Care Team Providers + +------+ + | Care Energy Economist Name | Role | Phone | + +------+ + PCP | Unavailable | + +------+ + Encounter Details +--------+ + + + + | Date | Type | Department | Care Team | Description | +--------+ + + + + | 08/27/ | Hospital | [facility] | Gabriel Davila, | | | 2007 - | Encounter | [facility] | [address] | | | | | CARDIAC TELEMETRY | [address] | | | 08/30/ | | [address] | [place] [address] | | | 2007 | | [place] | [phone] | | | | | [address] | | | | | | [phone] | | | +--------+ + + + [...] the office. Gabriel Davila MD P [facility] #[id number] cc: Gabriel Davila MD Segundo VENTURA [id number] 08/31/07 DIS IN [id number] DISCHARGE SUMMARY Gabriel kee MD [facility] THIS REPORT IS CONFIDENTIAL AND NOT [...] [place] | | | | | | [address] | | | | | | | | +--------+---------+ + + + documented as of this encounter Visit Diagnoses Not on filedocumented in this encounter"
--- OUTSIDE RECORDS SUMMARY | ~2019-06-03 | XMS | Encounter Summary ---
Demographics + + + | Address | [address] | | | [place] [address] | + + + | Home Phone | | + + + | Preferred Language | Unknown | + + + | Marital Status | | + + + | Yarsani Affiliation | 1013 | + + + | Race | Unknown | + + + | Ethnic Group | Unknown | + + + Author + + + | Author | [facility] | | | and [place] | + + + | Organization | [facility] | | | [...] | | | | [place], [place] [address] | | + + + + + | Juana Gasca | ECON | [address] | | | | | [place] | | | | | [address] | | + + + + + | Juana Gasca | ECON | Unknown | | + + + + + Care Team Providers + +------+ + | Care Mechanical Commissioning Engineer Name | Role | Phone | [...] + + | 09/21/ | Office | [facility] | [place], | COPD (Primary Dx); | | 2012 | Visit | PULMONARY [address] | Florence You MD | Obstructive sleep | | | | [place], | | apnea on BiPAP | | | | [place] [address] | | | | | | [phone] | | | +--------+---------+ + + + [...] arthroplasty 2010 Right Cortisone injection Left knee Social History: [...] and Monday. Take 10mg all other days Btghcfsmqic-Mfxdlswpd-Xzq C-Mn (GLUCOSAMINE 1500 COMPLEX PO) Take 1,500 [...] breath sounds are diminished bilaterally, no wheezes, craft demonstrator ckles or rhonchi Chest Wall: No deformity [...] Spiriva. We will continue for now. Exerci se was encouraged. He is well aware of the need to stay active and work on weight loss. Obstructive sleep apnea on bipap He is doing well on his BiPAP and has no complaints and never sleeps without it. I asked hi m to bring a download to his next visit. His last download looked great. He was advised to call if new pulmonary symptoms were to develop. Return to clinic in 6 months, or sooner with concerns. CC: Timo Lorenzana Portions of this report were transcribed using voice recognition software. Every effort wa s made to ensure accuracy; however, inadvertent computerized acute care assistant errors may be pre sent. documented in t his encounter Plan of Treatment +--------+---------+ + + + | Date | Type | Specialty | Care Team | Description | +--------+---------+ + + + | 10/22/ | Office | Cardiology | Elif Hylton, | | | 2019 | Visit | | MD Asad FI[address]DS | | | | | | [place], [place] | | | | | | [address] | | | | | | | [...]
--- OUTSIDE RECORDS SUMMARY | ~2019-06-03 | XMS | Encounter Summary ---
Demographics + + + | Address | [address] | | | [place] [address] | + + + | Home Phone | | + + + | Preferred Language | Unknown | + + + | Marital Status | | + + + | Congregation Affiliation | 1013 | + + + | Race | Unknown | + + + | Ethnic Group | Unknown | + + + Author + + + | Author | [facility] | | | and [place] | + + + | Organization | [facility] | | | [...] | | | | [place], [place] [address] | | + + + + + | Juana Gasca | ECON | [address] | | | | | [place] | | | | | [address] | | + + + + + | Juana Gasca | ECON | Unknown | | + + + + + Care Team Providers + +------+ + | Care Oil Field Roustabout Name | Role | Phone | + +------+ + | Timo Lorenzana | PCP | | | MD | | | + +------+ + Encounter Details +--------+ + + + + | Date | Type | Department | Care Team | Description | +--------+ + + + + | 02/05/ | Hospital | [facility] | Conversion | Pain | | 2016 | Encounter | CONVERSION [address] | Transaction, | | | | | [address] | Provider Unknown | | | | | [place], [place] | [phone] | | | | | [address] | | | | | | [phone] | | | +--------+ + + + [...] [place] | | | | | | [address] | | | | | | | [...]
--- OUTSIDE RECORDS SUMMARY | ~2019-06-03 | XMS | Encounter Summary ---
Demographics + + + | Address | [address] | | | [place] [address] | + + + | Home Phone [...] | | | | [place], [place] [address] | | + + + + + | Juana Gasca | ECON | [address] | | | | | [place] | | | | | [address] | | + + + + + | Juana Gasca | ECON | Unknown | | + + + + + Care Team Providers + +------+ + | Care Biochemistry Teacher Name | Role | Phone | [...] + + | 03/18/ | Refill | [facility] | Elif Hylton, | Medication Refill | | 2019 | | CARDIOLOGY JULIAN | [address] | | | | | [address] | [place] | | | | | [place] | [address] | | | | | [address] | | | | | | [phone] | | | +--------+--------+ + + + [...] [place] | | | | | | [address] | | | | | | | | +--------+---------+ + + + documented as of this encounter Visit Diagnoses Not on filedocumented in this encounter"
--- OUTSIDE RECORDS SUMMARY | ~2019-06-03 | XMS | Encounter Summary ---
Demographics + + + | Address | [address] | | | [place] [address] | + + + | Home Phone [...] | | | | [place], [place] [address] | | + + + + + | Juana Gasca | ECON | [address] | | | | | [place] | | | | | [address] | | + + + + + | Juana Gasca | ECON | Unknown | | + + + + + Care Team Providers + +------+ + | Care Mail Censor Name | Role | Phone | + +------+ + | Timo Lorenzana | PCP | | | MD | | | + +------+ + Reason for Visit +--------+ + | Reason | Comments | +--------+ + | Other | Prevnar 13 | +--------+ + Encounter Details +--------+ + + + + | Date | Type | Department | Care Team | Description | +--------+ + + + + | 06/30/ | Telephone | [facility] [place] | Abhinav, | Other (Prevnar 13) | | 2014 | | PULMONARY [address] | Florence You MD | | | | | [place], | | | | | | [place] [address] | | | | | | [phone] | | | +--------+ + + + [...] | | | | | [place], [place] | | | | | | [address] | | | | | | | [...]
--- OUTSIDE RECORDS SUMMARY | ~2019-06-03 | XMS | Encounter Summary ---
Demographics + + + | Address | [address] | | | [place] [address] | + + + | Home Phone [...] | | | | [place], [place] [address] | | + + + + + | Juana Gasca | ECON | [address] | | | | | [place] | | | | | [address] | | + + + + + | Juana Gasca | ECON | Unknown | | + + + + + Care Team Providers + +------+ + | Care Labelling Machine Operator Name | Role | Phone [...] | | | | | [place] [address] | | | | | | [phone] | | | +--------+ + + + [...] daily, Disp: 3 each, Rfl: 4; Glucosam qdz-Dwfajfnhl-Gdj C-Mn (GLUCOSAMINE 1500 COMPLEX PO), Take 1,500 [...] nightly., Disp: , Rfl: Respiratory Therapy Supplies MISC, Discontinue nebulizer. Fax to [facility] [...] [place] | | | | | | [address] | | | | | | | | +--------+---------+ + + + documented as of this encounter Visit Diagnoses Not on filedocumented in this encounter"
--- OUTSIDE RECORDS SUMMARY | ~2019-06-03 | XMS | Encounter Summary ---
Demographics + + + | Address | [address] | | | [place] [address] | + + + | Home Phone | | + + + | Preferred Language | Unknown | + + + | Marital Status | | + + + | Sikhism Affiliation | 1013 | + + + | Race | Unknown | + + + | Ethnic Group | Unknown | + + + Author + + + | Author | [facility] | | | and [place] | + + + | Organization | [facility] | | | [...] | | | | [place], [place] [address] | | + + + + + | Juana Gasca | ECON | [address] | | | | | [place] | | | | | [address] | | + + + + + | Juana Gasca | ECON | Unknown | | + + + + + Care Team Providers + +------+ + | Care Forensic Science Examiner Name | Role | Phone | + [...] + + | 12/29/ | Office | [facility] | [place], | COPD (chronic | | 2014 | Visit | PULMONARY [address] | Florence You MD | obstructive | | | | [place], | | pulmonary disease); | | | | [place] [address] | | Obstructive sleep | | | | [phone] | | apnea on BiPAP; | | | | | | Nocturnal hypoxemia | | | | | | due to emphysema | | | | | | ([facility]) | +--------+---------+ + + + Social [...] travelling with his back and forth to [facility] for her recent cochlear implants. He notes he has not been dyspneic walking this. He can probably walk 1/4 to 1/2 mile without stopping. This has improved consi derably compared to 1/2 to 1 block before. He has been evaluated for nocturnal oxygen and does use it. He is [facility] ht bled in to his BiPAP [...] inhaled tw ice daily 3 each 4 Tdktqwaalhx-Tizgclupt-Bjm C-Mn (GLUCOSAMINE 1500 COMPLEX PO) Take 1,500 [...] made to ensure accuracy; however, inadvertent computerized environmental maintenance worker errors may be pre sent. documented in t his encounter Plan of Treatment +--------+---------+ + + + | Date | Type | Specialty | Care Team | Description | +--------+---------+ + + + | 10/22/ | Office | Cardiology | Elif Hylton, | | | 2019 | Visit | | MD Asad FIELDS | | | | | | [place], [place] | | | | | | [...]
--- OUTSIDE RECORDS SUMMARY | ~2019-06-03 | XMS | Encounter Summary ---
Demographics + + + | Address | [address] | | | [place] [address] | + + + | Home Phone | | + + + | Preferred Language | Unknown | + + + | Marital Status | | + + + | Jehovah'S Witness Affiliation | 1013 | + + + | Race | Unknown | + + + | Ethnic Group | Unknown | + + + Author + + + | Author | [facility] | | | and [place] | + + + | Organization | [facility] | | | and [place] | + + + | Address | Unknown | + + + | Phone | Unavailable | + + + Support + + + + + | Name | Relationship | Address | Phone | + + + + + | Frances Gasca | ECON | NA | | | | | [place], [place] [address] | | + + + + + | Juana Gasca | ECON | [address] | | | | | [place] | | | | | [address] | | + + + + + | Juana Gasca | ECON | Unknown | | + + + + + Care Team Providers + +------+ + | Care Ground Products Director Name | Role | Phone | [...] | | | | | [place] [address] | | | | | | [phone] | | | +--------+ + + + [...] [place] | | | | | | [address] | | | | | | | | +--------+---------+ + + + documented as of this encounter Visit Diagnoses Not on filedocumented in this encounter"
--- OUTSIDE RECORDS SUMMARY | ~2019-06-03 | XMS | Encounter Summary ---
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 Jthfzvawtpr-Hjkfjzahy-Utq C-Mn (GLUCOSAMINE 1500 COMPLEX PO) Take 1,500 [...] made to ensure accuracy; however, inadvertent computerized brick and block mason errors may be pre sent. Electronically signed [...] [place] | | | | | | [address] | | | | | | | [...]
--- OUTSIDE RECORDS SUMMARY | ~2019-06-03 | XMS | Encounter Summary ---
Demographics + + + | Address | [address] | | | [place] [address] | + + + | Home Phone [...] | | | | [place], [place] [address] | | + + + + + | Juana Gasca | ECON | [address] | | | | | [place] | | | | | [address] | | + + + + + | Juana Gasca | ECON | Unknown | | + + + + + Care Team Providers + +------+ + | Care Semiconductor Package Symbol Stamper Name | Role | Phone | + +------+ + | Timo Lorenzana | PCP | | | MD | | | + +------+ + Reason for Visit + + + | Reason | Comments | + + + | Follow-up | hospital follow up | + + + Encounter Details +--------+---------+ + + + | Date | Type | Department | Care Team | Description | +--------+---------+ + + + | 12/28/ | Office | [facility] | Offenstein, | COPD (chronic | | 2012 | Visit | PULMONARY [address] | Florence You MD | obstructive | | | | [place], | | pulmonary disease) | | | | [place] [address] | | ([facility] (Primary Dx); | | | | [phone] | | Obstructive sleep | | | | | | apnea on BiPAP | +--------+---------+ + + + [...] + + + | Blood Pressure | 120/70 | 12/28/2012 2:14 PM | | | | | PDT | | + + + + + | Pulse | 60 | 12/28/2012 2:14 PM | | | | | PDT | | + + + + + | Temperature | - | - | | + + + + + | Respiratory Rate | - | - | | + + + + + | Oxygen Saturation | 95% | 12/28/2012 2:14 PM | | | | | PDT | | + + + + + | Inhaled Oxygen | - | - | | | Concentration | | | | + + + + + | Weight | 130.1 kg (286 lb | 12/28/2012 2:14 PM | | | | 14.4 oz) | PDT | | + + + + + | Height | 184.2 cm (6' 0.5") | 12/28/2012 2:14 PM | | | | | PDT | | + + + + + | Body Mass Index | 38.38 | 12/28/2012 2:14 PM | | | | | PDT | | + + + + + documented in this encounter Patient Instructions Patient Instructions Florence La MD - 12/28/2012 3:02 PM PDTDo an overnight oxy gen test through [facility] [employer]. You will pickle solution maker a box at the [facility], wear th e finger probe through the night and then return the box for a download the next day. Do the test on your BiPAP. Call the [facility] before you pick it up to make sure they ibarra ve a box available. Bring a download to your next appointment. documented in this encounter Progress Notes Florence La MD - 12/28/2012 2:37 PM PDTFormatting of this note might be differe nt from the original. Pulmonary Follow Up Note MD Aliza Sanforda [facility] [address] [place], [address] [facility] Serge Gasca is a 77 y.o. male patient of Timo Lorenzana here today for follo w up of COPD. Since in last time, he had a brief hospitalization in October at [place] for a COPD exace rbation. We called afterward and offered follow up, which he declined at that time. He then was admitted at the November with a heart failure exacerbation. He aggressively diuresed and the n is reported to have gotten better. He felt good at the time of discharge. We did schedule follow up after this hospitalization. He reports he feels good today. His was then hospitalized for 6 days for a bowel block age. He then developed some hyperglycemia, CBG 262, which took him 5-6 days to get down. He had a HgB A1C done, and it was 6.4. He then developed a tooth ache, and had that extracted b y his dentist, and had a lot of bleeding due to his coumadin use. He had to have it packed a nd it oozed for a while. Currently they are able to walk 4 long city blocks or possibly a little more at their own p trudy on level ground. He is not exercising regularly. He had been using the treadmill and the n he had a lot of issues. He does not cough chronically, and does not produce mucous. He has not had hemoptysis. His cough has been well controlled since we resumed the Spiriva. He has been wearing his BiPAP every night. His AHI has been well controlled. He does wear h is BiPAP the entire night, but he notes that some nights he does not get a lot of sleep. He did not wear his BiPAP in the hospital, and they did not provide him with one, he eventually had his son bring his in. He reports that the 4:48 hours that is recorded, is likely consis tent with the amount of sleep he is getting. Past Medical History Past Medical History Diagnosis [...] Succinate Medications: Outpatient Encounter Prescriptions as of 12/28/2012 Medication Sig Dispense Refill albuterol (VENTOLIN HFA) 90 mcg/puff inhaler 2 puffs inhaled every 4 hours as needed fo r shortness of breath DISCONTD: ascorbic acid (CVS VITAMIN C) 250 MG tablet Take 250 mg by mouth 2 times gian y. aspirin (ASPIRIN LOW DOSE) 81 MG tablet Take 81 mg by mouth Daily. DISCONTD: Calcium Carbonate (CALCIUM 600 PO) two times daily DISCONTD: Calcium Carbonate-Vitamin D (CALCIUM + D PO) TABS - 1 tablet by mouth 3 times daily carvedilol (COREG) 3.125 mg tablet 1/2 tablet twice daily CINNAMON PO Take 1,000 mg by mouth 2 times daily. fluticasone-salmeterol (ADVAIR DISKUS) 250-50 mcg/puff diskus inhaler 1 puff inhaled tw ice daily furosemide (LASIX) 40 mg tablet Take 40 mg by mouth every morning. Eiqtngctcnl-Jvomwzztt-Kch C-Mn (GLUCOSAMINE 1500 COMPLEX PO) Take 1,500 mg by mouth. Ta ke 2 tablets every AM and 1 tablet every PM levothyroxine (SYNTHROID, LEVOTHROID) 150 mcg tablet Take 150 mcg by mouth Daily. lisinopril (PRINIVIL,ZESTRIL) 2.5 MG tablet Take 2.5 mg by mouth Daily. metFORMIN (GLUCOPHAGE) 500 mg tablet Take 500 mg by mouth 2 times daily. DISCONTD: Methylsulfonylmethane (MSM) 1500 MG TABS Take 1,500 mg by mouth 3 times daily . Multiple Vitamins-Minerals (EQL CENTRAL-ROSAMARIA) TABS Take one by mouth daily DISCONTD: multivitamin (THERAGRAN) per tablet 1 tablet by mouth daily nitrofurantoin (MACRODANTIN) 50 MG [...] of Systems Constitutional: Denies fever, chills, sweats. Weight has been stable. Sleep: Using BiPAP nightly, no issues. Eyes: Denies vision change and eye irritation. ENT: Denies earache, decreased hearing, nasal congestion, nosebleeds, sore throat, and ho arseness. Resp: See HPI. CV: Denies chest pain, palpitations, syncope. Had leg swelling, has resolved. GI: Denies heartburn, nausea, vomiting, and abdominal pain.. : Denies difficulty emptying bladder. Occasionally it is a little slow to urinate. Noctu danika 3 times a night. Objective BP 120/70 | Pulse 60 | Ht 1.842 m (6' 0.5") | Wt 130.137 kg (286 lb 14.4 oz) | BMI 38.38 kg /m2 | SpO2 95% General Appearance: Alert, cooperative, no distress, appears [...] rhonchi Chest Wall: No deformity Heart: Regular with periodic missed beats, harsh 2-3/6 murmur over right upper sternal bor yari, no rub or gallop Abdomen: Soft, non-tender, non-distended, obese Extremities: No cyanosis, clubbing, 1+ pitting bilateral lower extremity edema Pulses: Radial pulses 1+ and symmetric Skin: Warm and dry Lymph nodes: Cervical and supraclavicular nodes normal Data: Dates: 11/26/12-12/25/12 Machine type: Respironics BiPAP auto Home Health Company: [facility] Median IPAP Titrated Pressure: 16.0 cmH2O Average Device IPAP Pressure: 13.5 cmH2O Median EPAP Titrated Pressure: 14.0 cmH2O Average Device EPAP Pressure: 11.2 cmH2O AHI: 1.1 events/hour Total number of days: 30 Number of days used: 28 Median daily usage: 4:43 hours Percent of days used for more than 4 hours: 66.7 % Average large leak: 10 minutes Chest x-ray was done on November 28, 2012 and was reviewed and interpreted in clinic today. It shows fluid overload. Hospital records are reviewed. Timo Lorenzana's records are reviewed and history updated as appropriate. Immunization History Administered Date(s) Administered INFLUENZA, PRESERVATIVE FREE IM 04/18/2012 Pneumococcal (Adult) 07/19/2009 Assessment 1. COPD (chronic obstructive pulmonary disease) - For now he is well controlled on Advair a nd Spiriva. If he has further issues with COPD exacerbations, then I would consider the azul tion of Daliresp. That being said, most recent hospitalization was for CHF exacerbation, not for his COPD, so I would hold off for now. I did recommend that he is increase his exercise, exercising to the point of being able to speak several words at a time. 2. Obstructive sleep apnea on BiPAP - He is doing well on his BiPAP. He is wearing it every time he sleeps. I would continue it for now. Plan 1.Continue Advair and Spiriva. 2.If he has further COPD exacerbations, consider addition of Daliresp. 3.Contineu BiPAP at current settings as his sleep apnea is well controlled. 4.He was advised he does not get enough sleep, but he reports this is a life long pattern f or him. 5. Increased exercise was advised, to the point of where he can speak a few words at a time . He was advised to call if new pulmonary symptoms were to develop. Return to clinic in 3 months, or sooner with concerns. CC: Timo Lorenzana Portions of this report were transcribed using voice recognition software. Every effort wa s made to ensure accuracy; however, inadvertent computerized nurse manager errors may be pre sent. documented in [...] [place] | | | | | | [address] | | | | | | | | +--------+---------+ + + + + + +--------+ + + | Name | Type | Priori | Associated Diagnoses | Order Schedule | | | | ty | | | + + +--------+ + + | Pulse oximetry, | Respiratory | Routin | Obstructive sleep | Expected: | | overnight study | Care | e | apnea on BiPAP | 12/28/2012, Expires: | | | | | | 12/28/2013 | + + +--------+ + + documented [...]
--- OUTSIDE RECORDS SUMMARY | ~2019-06-03 | XMS | Encounter Summary ---
Demographics + + + | Address | [address] | | | [place] [address] | + + + | Home Phone [...] | | | | [place] [address] | | + + + + + | Juana Gasca | ECON | [address] | | | | | [place] | | | | | [address] | | + + + + + | Juana Gasca | ECON | Unknown | | + + + + + Care Team Providers + +------+ + | Care Planning Director Name | Role | Phone | + +------+ + PCP | Unavailable | + +------+ + Encounter Details +--------+ + + + + | Date | Type | Department | Care Team | Description | +--------+ + + + + | 07/16/ | Hospital | [facility] | Enrique Graf, | VITREOUS HEMORRHAGE | | 2001 | Encounter | [facility] | MD Garber N SAULO | ([facility]) | | | | OUTPATIENT | [place], [place] | | | | | PROCEDURES [address] | [id number] | | | | | [address] | | | | | | [place], [place] | | | | | | [address] | | | | | | [phone] | | | +--------+ + + + [...] | | | | | [place], [place] | | | | | | [address] | | | | | | | | +--------+---------+ + + + documented as of this encounter Visit Diagnoses + + | Diagnosis | + + | Vitreous hemorrhage (HCC) Vitreous hemorrhage | + + documented in this encounter"
--- OUTSIDE RECORDS SUMMARY | ~2019-06-03 | XMS | Encounter Summary ---
Demographics + + + | Address | [address] | | | [place] [address] | + + + | Home Phone | | + + + | Preferred Language | Unknown | + + + | Marital Status | | + + + | Pentecostalism Affiliation | 1013 | + + + | Race | Unknown | + + + | Ethnic Group | Unknown | + + + Author + + + | Author | Merged With [facility] | | | and [place] | + + + | Organization | Merged With [facility] | | | [...] | | | | [place], [place] [address] | | + + + + + | Juana Gasca | ECON | [address] | | | | | [place] | | | | | [address] | | + + + + + | Juana Gasca | ECON | Unknown | | + + + + + Care Team Providers + +------+ + | Care Rail Signal Worker Name | Role | Phone | + [...] | 02/08/ | Refill | [facility] [place] | Abhinav, | Medication Refill | | 2016 | | PULMONARY [address] | Florence You MD | | | | | [place], | | | | | | [place] [address] | | | | | | [phone] | | | +--------+--------+ + + + [...] [place] | | | | | | [address] | | | | | | | | +--------+---------+ + + + documented as of this encounter Visit Diagnoses Not on filedocumented in this encounter"
--- OUTSIDE RECORDS SUMMARY | ~2019-06-03 | XMS | Encounter Summary ---
Demographics + + + | Address | [address] | | | [place] [address] | + + + | Home Phone [...] | | | | [place], [place] [address] | | + + + + + | Juana Gasca | ECON | [address] | | | | | [place] | | | | | [address] | | + + + + + | Juana Gasca | ECON | Unknown | | + + + + + Care Team Providers + +------+ + | Care Acetylene Torch Solderer Name | Role | Phone | + +------+ + | Timo Lorenzana | PCP | | | MD | | | + +------+ + Reason for Visit +---------+ + | Reason | Comments | +---------+ + | Results | Chest X-Ray | +---------+ + Encounter Details +--------+ + + + + | Date | Type | Department | Care Team | Description | +--------+ + + + + | 04/15/ | Telephone | [facility] [place] | Abhinav, | Results (Chest | | 2014 | | PULMONARY [address] | Florence You MD | X-Ray) | | | | [place], | | | | | | [place] [address] | | | | | | [phone] | | | +--------+ + + + [...] | | | | | [place] | | | | | | [id number] | | | | | | | | +--------+---------+ + + + documented as of this encounter Visit Diagnoses Not on filedocumented in this encounter"
--- OUTSIDE RECORDS SUMMARY | ~2019-06-03 | XMS | Encounter Summary ---
Demographics + + + | Address | [address] | | | [place] [address] | + + + | Home Phone | | + + + | Preferred Language | Unknown | + + + | Marital Status | | + + + | Judaism Affiliation | 1013 | + + + [...] | | | | [place], [place] [address] | | + + + + + | Juana Gasca | ECON | [address] | | | | | [place] | | | | | [address] | | + + + + + | Juana Gasca | ECON | Unknown | | + + + + + Care Team Providers + +------+ + | Care Library Media Specialist Name | Role | Phone | [...] + + | 04/26/ | Telephone | [facility] | Alicja Lloyd, | Weight Gain | | 2018 | | CARDIOLOGY JULIAN | [place] | | | | | [address] | | | | | | [place] | | | | | | [address] | | | | | | [phone] | | | +--------+ + + + [...] [place] | | | | | | [address] | | | | | | | | +--------+---------+ + + + documented as of this encounter Visit Diagnoses Not on filedocumented in this encounter"
--- OUTSIDE RECORDS SUMMARY | ~2019-06-03 | XMS | Encounter Summary ---
Demographics + + + | Address | [address] | | | [place] [address] | + + + | Home Phone [...] | | | | [place], [place] [address] | | + + + + + | Juana Gasca | ECON | [address] | | | | | [place] | | | | | [address] | | + + + + + | Juana Gasca | ECON | Unknown | | + + + + + Care Team Providers + +------+ + | Care Shipping Agent Name | Role | Phone | [...] Description | +--------+--------+ + + + | 03/06/ | Refill | [facility] [place] | Abhinav, | Medication Refill | | 2015 | | PULMONARY [address] | Florence You MD | | | | | [place], | | | | | | [place] [address] | | | | | | [phone] | | | +--------+--------+ + + + [...] [place] | | | | | | [address] | | | | | | | | +--------+---------+ + + + documented as of this encounter Visit Diagnoses Not on filedocumented in this encounter"
--- OUTSIDE RECORDS SUMMARY | ~2019-06-03 | XMS | Encounter Summary ---
Demographics + + + | Address | [address] | | | [place] [address] | + + + | Home Phone [...] | | | | [place], [place] [address] | | + + + + + | Juana Gasca | ECON | [address] | | | | | [place] | | | | | [address] | | + + + + + | Juana Gasca | ECON | Unknown | | + + + + + Care Team Providers + +------+ + | Care Coal Mine Inspector Name | Role | Phone | [...] apnea on BiPAP | | | | [place], | | | | | | [place] [address] | | | | | | [phone] | | | +--------+ + + + [...] | | | | | [place], [place] | | | | | | [address] | | | | | | | | +--------+---------+ + + + documented as of this encounter Visit Diagnoses + + | Diagnosis | + + | Obstructive sleep apnea on BiPAP Obstructive sleep apnea (adult) (pediatric) | + + documented in this encounter"
--- OUTSIDE RECORDS SUMMARY | ~2019-06-03 | XMS | Encounter Summary ---
Demographics + + + | Address | [address] | | | [place] [address] | + + + | Home Phone | | + + + | Preferred Language | Unknown | + + + | Marital Status | | + + + | Anabaptist Affiliation | 1013 | + + + [...] | | | | [place], [place] [address] | | + + + + + | Juana Gasca | ECON | [address] | | | | | [place] | | | | | [address] | | + + + + + | Juana Gasca | ECON | Unknown | | + + + + + Care Team Providers + +------+ + | Care Excavator Backhoe Operator Name | Role | Phone | [...] | | | | | [place] [address] | | | | | | [phone] | | | +--------+--------+ + + + [...] [place] | | | | | | [address] | | | | | | | | +--------+---------+ + + + documented as of this encounter Visit Diagnoses Not on filedocumented in this encounter"
--- OUTSIDE RECORDS SUMMARY | ~2019-06-03 | XMS | Encounter Summary ---
Demographics + + + | Address | [address] | | | [place] [address] | + + + | Home Phone [...] | | | | [place], [place] [address] | | + + + + + | Juana Gasca | ECON | [address] | | | | | [place] | | | | | [address] | | + + + + + | Juana Gasca | ECON | Unknown | | + + + + + Care Team Providers + +------+ + | Care Center Hole Reamer Name | Role | Phone | + [...] + + | 09/21/ | Office | [facility] | Offenstein, | COPD (Primary Dx); | | 2012 | Visit | [address]ULMONARY [address] | Florence You MD | Obstructive sleep | | | | [place], | | apnea on BiPAP | | | | [place] [address] | | | | | | [phone] | | | +--------+---------+ + + + [...] and Monday. Take 10mg all other days Brhnljieueh-Oaydjhiim-Rgp C-Mn (GLUCOSAMINE 1500 COMPLEX PO) Take 1,500 [...] breath sounds are diminished bilaterally, no wheezes, aircraft painter ckles or rhonchi Chest Wall: No deformity [...] made to ensure accuracy; however, inadvertent computerized pastry baker errors may be pre sent. documented in t his encounter Plan of Treatment +--------+---------+ + + + | Date | Type | Specialty | Care Team | Description | +--------+---------+ + + + | 10/22/ | Office | Cardiology | Elif Hylton, | | | 2019 | Visit | | MD Asad FIELDS | | | | | | [place], [place] | | | | | | [address] | | | | | | | [...]
--- OUTSIDE RECORDS SUMMARY | ~2019-06-03 | XMS | Encounter Summary ---
Demographics + + + | Address | [address] | | | [place] [address] | + + + | Home Phone [...] | | | | [place], [place] [address] | | + + + + + | Juana Gasca | ECON | [address] | | | | | [place] | | | | | [address] | | + + + + + | Juana Gasca | ECON | Unknown | | + + + + + Care Team Providers + +------+ + | Care Diesel Fleet Mechanic Name | Role | Phone | [...] + + | 04/03/ | Office | [facility] | Elif Weinstein, | Atrial fibrillation, | | 2019 | Visit | CARDIOLOGY BH[place]INDER | [address] | chronic (Primary | | | | [address] | [place] [facility] | Dx); Hypertension; | | | | [address] | [address] | Obstructive sleep | | | | [place] | | apnea on BiPAP; S/P | | | | [address] | | AVR (aortic valve | | | | [phone] | | replacement); S/P | | | [...] into the lungs 2 (two) times daily. Rawqshfrqgm-Ayvlxbftt-Uwn C-Mn (GLUCOSAMINE 1500 COMPLEX PO) Take 3,000 [...] Take 10 mg by mouth daily. Sliding scal e, Wilcox regulates warfarin (COUMADIN) 7.5 mg tablet Take [...] Hx Pacemaker/ICD: 08/30/2007, Guidant Insignia 1291, SN: [id number]. Last interrogation 11/19/2018 1 year, RV pacing [...] PDTdocumented in this encounter Plan of Treatment +--------+---------+ + + + | Date | Type | Specialty | Care Team | Description | +--------+---------+ + + + | 10/22/ | Office | Cardiology | Elif Weinstein, | | | 2019 | Visit | | MD Asad FIELDS | | | | | | [place], [place] | | | | | | [address] | | | | | | | | +--------+---------+ + + + documented as of this encounter Visit Diagnoses + + | Diagnosis | + + | Atrial fibrillation, chronic - Primary Atrial fibrillation | + + [...]
--- OUTSIDE RECORDS SUMMARY | ~2019-06-03 | XMS | Encounter Summary ---
Demographics + + + | Address | [address] | | | [place] [address] | + + + | Home Phone [...] | | | | [place], [place] [address] | | + + + + + | Juana Gasca | ECON | [address] | | | | | [place] | | | | | [address] | | + + + + + | Juana Gasca | ECON | Unknown | | + + + + + Care Team Providers + +------+ + | Care Manager Reliability Name | Role | Phone | + +------+ + | Timo Lorenzana | PCP | | | MD | | | + +------+ + Encounter Details +--------+ + + + + | Date | Type | Department | Care Team | Description | +--------+ + + + + | 12/27/ | Orders Only | [facility] | Provider, | | | 2018 | | [facility] GENER[facility] OP | MD [address] | | | | | [address] | Chelsie ALONSO | | | | | [address] [place], [place] | [place] [address] | | | | | [address] | | | | | | [phone] | | | +--------+ + + + [...] [place] | | | | | | [address] | | | | | | | | +--------+---------+ + + + documented as of this encounter Visit Diagnoses Not on filedocumented in this encounter"
--- OUTSIDE RECORDS SUMMARY | ~2019-06-03 | XMS | Encounter Summary ---
Demographics + + + | Address | [address] | | | [place] [address] | + + + | Home Phone [...] | | | | [place], [place] [address] | | + + + + + | Juana Gasca | ECON | [address] | | | | | [place] | | | | | [address] | | + + + + + | Juana Gasca | ECON | Unknown | | + + + + + Care Team Providers + +------+ + | Care Chute Tender Name | Role | Phone | + +------+ + | Timo Lorenzana | PCP | | | MD | | | + +------+ + Reason for Visit + + + | Reason | Comments | + + + | Appointment | YEARLY FOLLOW UP | + + + Encounter Details +--------+ + + + + | Date | Type | Department | Care Team | Description | +--------+ + + + + | 07/11/ | Telephone | [facility] [place] | Dennyenstein, | Appointment (YEARLY | | 2017 | | PULMONARY [address] | Florence You MD | FOLLOW UP) | | | | [place], | | | | | | [place] [address] | | | | | | [phone] | | | +--------+ + + + [...] | | | | | [place], [place] | | | | | | [address] | | | | | | | | +--------+---------+ + + + documented as of this encounter Visit Diagnoses Not on filedocumented in this encounter"
--- OUTSIDE RECORDS SUMMARY | ~2019-06-03 | XMS | Encounter Summary ---
Demographics + + + | Address | [address] | | | [place] [address] | + + + | Home Phone [...] | | | | [place], [place] [address] | | + + + + + | Juana Gasca | ECON | [address] | | | | | [place] | | | | | [address] | | + + + + + | Juana Gasca | ECON | Unknown | | + + + + + Care Team Providers + +------+ + | Care Dish Washer Name | Role | Phone | + [...] Description | +--------+---------+ + + + | 06/25/ | Office | [facility] [place] | Offenstein, | COPD (chronic | | 2015 | Visit | PULMONARY [address] | Florence You MD | obstructive | | | | [place], | | pulmonary disease) | | | | [place] [address] | | (Primary Dx); MARY | | | | [phone] | | (obstructive sleep | | | | | | apnea); Nocturnal | | | | | | [...] + + + | Blood Pressure | 136/64 | 06/25/2014 11:54 AM | | | | | PST | | + + + + + | Pulse | 59 | 06/25/2014 11:54 AM | | | | | PST | | + + + + + | Temperature | - | - | | + + + + + | Respiratory Rate | - | - | | + + + + + | Oxygen Saturation | 95% | 06/25/2014 11:54 AM | | | | | PST | | + + + + + | Inhaled Oxygen | - | - | | | Concentration | | | | + + + + + | Weight | 114.9 kg (253 lb 6.4 | 06/25/2014 11:54 AM | | | | oz) | PST | | + + + + + | Height | 184.2 cm (6' 0.5") | 06/25/2014 11:54 AM | | | | | PST | | + + + + + | Body Mass Index | 33.89 | 06/25/2014 11:54 AM | | | | | PST | | + + + + + documented in this encounter Patient Instructions Patient Instructions Florence La MD - 06/25/2014 12:33 PM PSTDo an overnight oxy gen test through [facility]. Call the [facility] before you pick it up to make sure they have a box available. You will shrimp picker a box at the [facility]. Do the t est on BiPAP only. Wear the finger probe through the night and then return the box for a melida nload the next day. I will give you an order to discontinue your nebulizer. Discontinue the Spiriva. Stay on the Advair 1 inhalation twice daily. Continue on the ProAir as needed. I would recommend you get the new Prevnar 13 vaccine. documented in this encounter Progress Notes Florence La MD - 06/25/2014 12:09 PM PSTFormatting of this note might be differe nt from the original. Pulmonary Follow Up HPI Serge Gasca is a 79 y.o. male patient of Timo Lorenzana here today for follow up of COPD. Since his last visit he feels like he has been doing really well. He underwent his valve re placement, and since then, he feels like he has been doing great. He has not been needing to use his nebulizer, and his need to use his rescue inhaler has dropped a lot. He wonders if he needs as aggressive of a regimen of medication for his COPD. He is currently on a regimen of Advair and Spiriva. He has used his rescue inhaler once or twice since he was discharged, around early March. He is not using his nebulizer at all. Phillip holland returns today for routine follow up. Currently he is able to walk 4 blocks at least at his own pace on level ground. He is not e xercising regularly other than a little bit of walking. He sees Dr. Fortune on July 17, a nd is hoping to get approved to get on the treadmill. He does not cough chronically, and does not produce mucous. He has not had hemoptysis. He remains on his BiPAP machine. He is not having any issues with this. He notes when he we nt to [place], he did not take his oxygen with him and felt like he did fine. He wants to k now if he can get off of this. He is not sure if his concentrator is even working correctly. He is usually on 1L bled in to his BiPAP. Past Medical History Past Medical History Diagnosis [...] Swelling Medications: Outpatient Encounter Prescriptions as of 06/25/2014 Medication Sig Dispense Refill albuterol (PROAIR HFA) [...] inhaler 1 puff inhaled tw ice daily Femhnfcvvjt-Zxpxnrsau-Qrj C-Mn (GLUCOSAMINE 1500 COMPLEX PO) Take 1,500 [...] Take 10mg all other days Review of Systems: General: [x]Weight loss/gain (over 10 lbs) Weight has gone up and down []Fever/chills []Night sweat s Heent: []Hearing loss []Vision loss [x]Sinus congestion/nasal drainage []Nosebleeds []Hoarsen ess Cardiac: []Chest pain []Palpitations/heart racing []Swelling of legs/ankles/hands []Waking up at ni ght short of breath []Difficulty sleeping flat Gastrointestinal: []Nausea/vomiting []Difficulty swallowing []Heartburn []Loss of appetite []Abdominal pain []Stomach Ulcers []Diarrhea []Constipation []Blood in stool Urologic: []Blood in urine []Frequent urination at night []Burning/painful urination [x]Difficulty wi th urination- has to be dilated twice a year for his stricture Sleep: See HPI Objective BP 136/64 | Pulse 59 | Ht 1.842 m (6' 0.5") | Wt 114.941 kg (253 lb 6.4 oz) | BMI 33.88 kg/ m2 | SpO2 95% RA General [...] No deformity Heart: Regular rate and rhythm, no murmur, rub or gallop Abdomen: Soft, non-tender, non-distended, obese Extremities: No cyanosis, clubbing, very trace bilateral lower extremity edema Pulses: Radial pulses 2+ and symmetric Skin: Warm and dry Lymph nodes: Cervical and supraclavicular nodes normal Data: VPAP Data: Dates: 05/24-06/22/14 Home Health Company: [facility] Machine type: Respironics BiPAP auto Average pressure 90% IPAP: 14.0 cm H2O Maximum IPAP Pressure: 16.0 cm H2O Maximum EPAP: 14 cm H2O Average pressure 90% EPAP: 11.6 cm H2O AHI: 0.3 Total number of days: 30 Number of days used: 30 Median daily usage: 6:03 hours Percent of days used for more than 4 hours: 100 % Average time in large leak per day: 4 mins 26 secs Immunization History Administered Date(s) Administered PNEUMOCOCCAL POLYSACCHARIDE 23-VALENT (PPSV23) 07/19/2009 TRIVALENT INFLUENZA, PRESERATIVE FREE (PED/ADOL/ADULT) 04/18/2012, 02/03/2013, 02/02/20 14 Assessment 1. COPD (chronic obstructive pulmonary disease) - Marked symptomatic improvement since he h as had his valve replacement, so likely a lot of his symptoms were due to his AV stenosis an d subsequent heart failure. We will go ahead and taper back his medications, and stop Spiriv a at this time, continuing the Advair. Nebulizer is also discontinued as he no longer uses t his. 2. MARY (obstructive sleep apnea) - Doing well on BiPAP. No changes made today. 3. 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 We will rec heck overnight oximetry and see if this has improved after his valve replacement, and if so, stop his oxygen if he meets criteria. Plan 1.Continue Advair twice daily with ProAir as needed. 2.Discontinue nebulizer machine. 3.Stop Spiriva. 4. Continue BiPAP on current settings. 5. Recheck overnight oximetry on his BiPAP and discontinue nocturnal oxygen if he meets cri teria. 6. I asked him to call if his breathing worsens with the medication changes. He was advised to call if new pulmonary symptoms were to develop. Return to clinic in 6 months, or sooner with concerns. CC: Timo Lorenzana Portions of this report were transcribed using voice recognition software. Every effort wa s made to ensure accuracy; however, inadvertent computerized pediatric physiatrist errors may be pre sent. documented in t his encounter Plan of Treatment +--------+---------+ + + + | Date | Type | Specialty | Care Team | Description | +--------+---------+ + + + | 10/22/ | Office | Cardiology | Elif Hylton, | | | 2019 | Visit | | [address] | | | | | | [place], [place] | | | | | | [address] | | | | | | | | +--------+---------+ + + + + + +--------+ + + | Name | Type | Priori | Associated Diagnoses | Order Schedule | | | | ty | | | + + +--------+ + + | Overnight oximetry, | Respiratory | Routin | MARY (obstructive | Expected: | | CPAP | Care | e | sleep apnea) | 06/25/2014, Expires: | | | | | | 06/25/2015 | + + +--------+ + + documented as of this encounter Visit Diagnoses + + | Diagnosis | + + | COPD (chronic obstructive pulmonary disease) - Primary Chronic airway obstruction, | | not elsewhere classified | + + | MARY (obstructive sleep apnea) Obstructive sleep apnea (adult) (pediatric) | + + | 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
--- OUTSIDE RECORDS SUMMARY | ~2019-06-03 | XMS | Encounter Summary ---
Demographics + + + | Address | [address] | | | [place] [address] | + + + | Home Phone | | + + + | Preferred Language | Unknown | + + + | Marital Status | | + + + | Gnosticism Affiliation | 1013 | + + + [...] | | | | [place], [place] [address] | | + + + + + | Juana Gasca | ECON | [address] | | | | | [place] | | | | | [address] | | + + + + + | Juana Gasca | ECON | Unknown | | + + + + + Care Team Providers + +------+ + | Care Ring Cutter Lathe Operator Name | Role | Phone | [...] | apnea (adult) | | | | [place], | | (pediatric) | | | | [place] [address] | | | | | | [phone] | | | +--------+ + + + [...] [place] | | | | | | [address] | | | | | | | | +--------+---------+ + + + documented as of this encounter Visit Diagnoses + + | Diagnosis | + + | Obstructive sleep apnea (adult) (pediatric) | + + documented in this encounter"
--- OUTSIDE RECORDS SUMMARY | ~2019-06-03 | XMS | Encounter Summary ---
Demographics + + + | Address | [address] | | | [place] [address] | + + + | Home Phone [...] | | | | [place], [place] [address] | | + + + + + | Juana Ventura | ECON | [address] | | | | | [place] | | | | | [address] | | + + + + + | Juana Ventura | ECON | Unknown | | + + + + + Care Team Providers + +------+ + | Care Director Of Exhibits Name | Role | Phone | + [...] + + | 07/19/ | Office | [facility] [place] | [place], | Cough (Primary Dx); | | 2012 | Visit | PULMONARY [address] | Florence You MD | COPD (chronic | | | | [place], | | obstructive | | | | [place] [address] | | pulmonary disease) | | | | [phone] | | ([facility]); MARY | | | | [...] 2:35 PM PSTFebruary 2012 Denise Ventura [address] [place] [address] Dear Denise: Thank you for enrolling in [employer] Please follow the instructions below to view your [employer] online medical record. [employer] allows you to send secure messages to your doctor, view you r test results, renew your prescriptions, schedule appointments, and more. How Do I Sign Up? 1. In your Internet browser, go to [email or web address] 2. Click on the Sign Up Now link in the Sign In box. This will take you to the [facility] Sign Up page. 3. Enter your [employer] access code exactly as it appears below. You will not need to use this code after you sign up. If you do not sign up before the expiration date, you must requ est a new code through your [facility]. [employer] Access Code: [email or web address] Expires: 09/17/2012 14:35 4. Fill in the last four digits of your Social Security Number (xxxx) and Date of (mm/dd/yyyy) when asked and click Submit. You will now be asked to create a [employer] ID. 5. Create a [employer] ID. This will be your [employer] login ID. Your login ID cannot be sharpe ged, so think of one that is secure and easy to remember. 6. Create a [employer] password. You can change your password at any time. 7. Enter your Password Reset Question and Answer. This can be used at a later time if yo u forget your password. 8. Enter your e-mail address. You will receive e-mail notification when new information is available in [employer] 9. Click Sign Up. You may now view your medical record. Additional Information If you have questions, you can email or call [phone] to talk to our [email or web address] care team. Please remember, [employer] should NOT be used fo r urgent [...] any significant nasal congestion, he is using [place] to treat any issu es in his [...] Procedure Date Mitral valve replacement 1995 Turp 2006 Back surgery lower back [...] and Monday. Take 10mg all other days Fcyqmbyxzcp-Hkktkfzsh-Ssd C-Mn (GLUCOSAMINE 1500 COMPLEX PO) Take 1,500 [...] | | | | | [place], [place] | | | | | | [address] | | | | | | | | +--------+---------+ + + + documented as of this encounter Results XR Chest PA and Lateral (07/19/2012 5:33 PM PST) + + | Specimen | + + | | + + + + + | Narrative | Performed At | + + + | [facility] | BROCK[facility] | | Department [address] [place] [address] | [facility] | | [ rep [address]] [ rep [facility] | | st zip] Signed | - IMAGING | | | | | Patient Name: DENISE VENTURA Physician: | | | VESTAJazmine : 1935 Age: 77 Sex: M Unit #: [id number] | | | Exam Date: 07/19/12 Location: [facility] [place] | | | Report #: [id number] Page: | | | %(RAD)RES..mtdd.print.filter("pg") of %(RAD) | | | RES..mtdd.print.filter("tpg") | | | | | | Accession Number: [id number] | | | TWO-VIEW CHEST CLINICAL HISTORY: [...] Transcribed Date/Time: | | | 07/19/2012 19:42 Upper Lining Cementer: | | | <<Signature on File>> | | | | | | Orlando Mehta MD07/20/12 0836 <Electronically signed by | | | Orlando Mehta MD> Orlando Mehta MD 07/19/12 | | | [address] Cementer: Ntiretyx [id number] | | | Florence La MD | | + + + + + + + + | Performing | Address | City/State/Zipcode | Phone Number | | Organization | | | | + + + + + | [facility] | [address] | [place] | [phone] | | [facility] | | [address] | | | - IMAGING | | [...]
--- OUTSIDE RECORDS SUMMARY | ~2019-06-03 | XMS | Encounter Summary ---
Demographics + + + | Address | [address] | | | [place] [address] | + + + | Home Phone [...] | | | | [place], [place] [address] | | + + + + + | Juana Gasca | ECON | [address] | | | | | [place] | | | | | [address] | | + + + + + | Juana Gasca | ECON | Unknown | | + + + + + Care Team Providers + +------+ + | Care Diesel Electrician Name | Role | Phone | + [...] + + | 03/18/ | Refill | [facility] | Yuri Raymond | Medication Refill | | 2019 | | PULMONOLOGY [address] | Rush Raymond MD [address] | | | | | [address] | [address] | | | | | [place], [place] | [place] [address] | | | | | [address] | [phone] | | | | | [phone] | | | +--------+--------+ + + + [...] | | | | | [place] | | | | | | [address] | | | | | | | | +--------+---------+ + + + documented as of this encounter Visit Diagnoses Not on filedocumented in this encounter"
--- OUTSIDE RECORDS SUMMARY | ~2019-06-03 | XMS | Encounter Summary ---
Demographics + + + | Address | [address] | | | [place] [address] | + + + | Home Phone | | + + + | Preferred Language | Unknown | + + + | Marital Status | | + + + | Yazidism Affiliation | 1013 | + + + | Race | Unknown | + + + | Ethnic Group | Unknown | + + + Author + + + | Author | [facility] | | | and [place] | + + + | Organization | [facility] | [...] | | | | [place], [place] [address] | | + + + + + | Juana Gasca | ECON | [address] | | | | | [place] | | | | | [address] | | + + + + + | Juana Gasca | ECON | Unknown | | + + + + + Care Team Providers + +------+ + | Care Worm Grower Name | Role | Phone | + [...] | | | | | [place] [address] | | | | | | [phone] | | | +--------+--------+ + + + [...] [place] | | | | | | [address] | | | | | | | | +--------+---------+ + + + documented as of this encounter Visit Diagnoses Not on filedocumented in this encounter"
--- OUTSIDE RECORDS SUMMARY | ~2019-06-03 | XMS | Encounter Summary ---
Demographics + + + | Address | [address] | | | [place] [address] | + + + | Home Phone [...] | | | | [place], [place] [address] | | + + + + + | Juana Gasca | ECON | [address] | | | | | [place] | | | | | [address] | | + + + + + | Juana Gasca | ECON | Unknown | | + + + + + Care Team Providers + +------+ + | Care Call Center Operations Manager Name | Role | Phone | [...] + + | 03/08/ | Office | [facility] | Yuri Raymond | Centrilobular | | 2019 | Visit | PULMONOLOGY [address] | Rush Raymond MD [address] | emphysema (HCC) | | | | [address] | [address] | (Primary Dx); | | | | [place], [place] | [place] [address] | Chronic obstructive | | | | [address] | [phone] | pulmonary disease, | | | | [phone] | | unspecified COPD | | | [...] + documented in this encounter Progress Notes Yuri Raymond MD - 03/08/2019 1:15 PM PDTFormatting of this note might be dif ferent from the original. [facility] PULMONOLOGY [address] [place], [place] [id number] HISTORY: Chief Complaint: I have been asked to assist in the pulmonary evaluation of Serge jean, 83 y.o. male, for COPD History of Present Illness: Interval history: "Serge Gasca is a 80 year old gentleman referred to me for COPD. He was previously fol lowing with Dr. La at [place] for his pulmonary issues. He is maintained [...] Procedure Laterality Date AORTIC VALVE REPLACEMENT 03/10/2014 nicholas Nair, Dr. Elizondo BACK SURGERY lower back x2 [...] - REDO; Surgeon: Jassi Elizondo MD; Location: [facility] OR; Service: Cardiac; Laterality: N/A; OTHER SURGICAL HISTORY 03/10/2014 CYSTOSTOMY W/ BLADDER DILATION - Procedure: CYSTOSCOPY - DILATATION; Surgeon: Timothy badillo MD; Location: [facility]; Service: Cardiac; Laterality: N/A; [...] into the lungs 2 (two) times daily. Qgyiijlzwjo-Hgjmweneu-Mxl C-Mn (GLUCOSAMINE 1500 COMPLEX PO) (Taking) Take [...] by mouth daily. Sliding scale, St. A nthony regulates warfarin (COUMADIN) 7.5 mg tablet (Taking) [...] Raymond MD Pulmonary and Critical Care Medicine [facility] Pulmonology documented in this encounter Plan of Treatment +--------+---------+ + + + | Date | Type | Specialty | Care Team | Description | +--------+---------+ + + + | 10/22/ | Office | Cardiology | Elif Hylton, | | | 2019 | Visit | | MD Asad FIELDS | | | | | | [place] | | | | | | [phone] | | | | | | | [...]
--- OUTSIDE RECORDS SUMMARY | ~2019-06-03 | XMS | Encounter Summary ---
Demographics + + + | Address | [address] | | | [place] [address] | + + + | Home Phone | | + + + | Preferred Language | Unknown | + + + | Marital Status | | + + + | Cheondoism Affiliation | 1013 | + + + [...] | | | | [place], [place] [address] | | + + + + + | Juana Gasca | ECON | [address] | | | | | [place] | | | | | [address] | | + + + + + | Juana Gasca | ECON | Unknown | | + + + + + Care Team Providers + +------+ + | Care Field Installation Technician Name | Role | Phone | + +------+ + | Timo Lorenzana | PCP | | | MD | | | + +------+ + Reason for Visit +---------+ + | Reason | Comments | +---------+ + | Results | | +---------+ + Encounter Details +--------+ + + + + | Date | Type | Department | Care Team | Description | +--------+ + + + + | 07/20/ | Telephone | [facility] [place] | Robb Lee, | Results | | 2012 | | PULMONARY [address] | RN | | | | | [place] | | | | | | [place] [address] | | | | | | [phone] | | | +--------+ + + + [...] | | | | | [place], [place] | | | | | | [address] | | | | | | | | +--------+---------+ + + + documented as of this encounter Visit Diagnoses Not on filedocumented in this encounter"
--- OUTSIDE RECORDS SUMMARY | ~2019-06-03 | XMS | Encounter Summary ---
Demographics + + + | Address | [address] | | | [place] [address] | + + + | Home Phone | | + + + | Preferred Language | Unknown | + + + | Marital Status | | + + + | Uatsdin Affiliation | 1013 | + + + | Race | Unknown | + + + | Ethnic Group | Unknown | + + + Author + + + | Author | [facility] | | | and [place] | + + + | Organization | [facility] | | | and [place] | + + + | Address | Unknown | + + + | Phone | Unavailable | + + + Support + + + + + | Name | Relationship | Address | Phone | + + + + + | Frances Gasca | ECON | NA | | | | | [place], [place] [address] | | + + + + + | Juana Gasca | ECON | [address] | | | | | [place] | | | | | [address] | | + + + + + | Juana Gasca | ECON | Unknown | | + + + + + Care Team Providers + +------+ + | Care High School Coach Name | Role | Phone | + +------+ + | Timo Lorenzana | PCP | | | MD | | | + +------+ + Reason for Visit +--------+ + | Reason | Comments | +--------+ + | Other | schedule follow up | +--------+ + Encounter Details +--------+ + + + + | Date | Type | Department | Care Team | Description | +--------+ + + + + | 05/17/ | Telephone | [facility] | Cassidy Xavier, | Other (schedule | | 2012 | | PULMONARY [address] | RN | follow up) | | | | [place], | | | | | | [place] [address] | | | | | | [phone] | | | +--------+ + + + [...] | | | | | [place] | | | | | | [address] | | | | | | | | +--------+---------+ + + + documented as of this encounter Visit Diagnoses Not on filedocumented in this encounter"
--- OUTSIDE RECORDS SUMMARY | ~2019-06-03 | XMS | Encounter Summary ---
Demographics + + + | Address | [address] | | | [place] [address] | + + + | Home Phone [...] + + | Author | [facility] | | | and [place] | + + + | Organization | [facility] | | | [...] | | | | [place] [address] | | + + + + + | Juana Gasca | ECON | [address] | | | | | [place] | | | | | [address] | | + + + + + | Juana Gasca | ECON | Unknown | | + + + + + Care Team Providers + +------+ + | Care Blocker And Polisher Name | Role | Phone | + +------+ + PCP | Unavailable | + +------+ + Encounter Details +--------+ + + + + | Date | Type | Department | Care Team | Description | +--------+ + + + + | 09/30/ | Hospital | [facility] | Jin Epps MD | CORONARY ATHEROSCLER | | 2004 - | Encounter | [facility] | [address] | UNSPEC VESSEL | | | | CARE FLOOR [address] | [place] [address] | | | 10/01/ | | [place] | [phone] | | | 2004 | | [place], [place] | | | | | | [address] | Ramo Fortune | | | | | [phone] | MD Jesus [address] | | | | | | [address] | | | | | | [place] [address] | | | | | | [phone] | | | | | | | [...] | | | | | | [place] | | | | | | [address] | | | | | | | | +--------+---------+ + + + documented as of this encounter Visit Diagnoses + + | Diagnosis | + + | Coronary atherosclerosis of unspecified type of vessel, [place] or graft | + + documented in this encounter"
--- OUTSIDE RECORDS SUMMARY | ~2019-06-03 | XMS | Encounter Summary ---
Demographics + + + | Address | [address] | | | [place] [address] | + + + | Home Phone | | + + + | Preferred Language | Unknown | + + + | Marital Status | | + + + | Restorationist Affiliation | 1013 | + + + | Race | Unknown | + + + | Ethnic Group | Unknown | + + + Author + + + | Author | [facility] | | | and [place] | + + + | Organization | [facility] | | [...] | | | | [place], [place] [address] | | + + + + + | Juana Gasca | ECON | [address] | | | | | [place] | | | | | [address] | | + + + + + | Juana Gasca | ECON | Unknown | | + + + + + Care Team Providers + +------+ + | Care Stapling Machine Operator Name | Role | Phone [...] + + | 07/31/ | [facility] | [facility] [place] | [place], | Chronic obstructive | | 2015 | Visit | PULMONARY [address] | Florence You MD | pulmonary disease, | | | | [place], | | unspecified COPD | | | | [place] [address] | | type (HCC) (Primary | | | | [phone] | | Dx); Obstructive | | | [...] He is currently on 1 L[facility] ht bled in to his BiPAP. He [...] the lungs Twice Daily. 3 each 3 Kkfctjwotpj-Idgxylyxd-Lbq C-Mn (GLUCOSAMINE 1500 COMPLEX PO) Take 1,500 [...] made to ensure accuracy; however, inadvertent computerized fretted string instrument repairer errors may be pre sent. documented in [...] [place] | | | | | | [id number] | | | | | | | [...]
--- OUTSIDE RECORDS SUMMARY | ~2019-06-03 | XMS | Encounter Summary ---
Demographics + + + | Address | [address] | | | [place] [address] | + + + | Home Phone [...] | | | | [place], [place] [address] | | + + + + + | Juana Gasca | ECON | [address] | | | | | [place] | | | | | [address] | | + + + + + | Juana Gasca | ECON | Unknown | | + + + + + Care Team Providers + +------+ + | Care Naval Police Coxswain Name | Role | Phone | + [...] | | | | | [place] [address] | | | | | | [phone] | | | +--------+--------+ + + + [...] [place] | | | | | | [address] | | | | | | | | +--------+---------+ + + + documented as of this encounter Visit Diagnoses Not on filedocumented in this encounter"
--- OUTSIDE RECORDS SUMMARY | ~2019-06-03 | XMS | Encounter Summary ---
Demographics + + + | Address | [address] | | | [place] [address] | + + + | Home Phone [...] | | | | [place], [place] [address] | | + + + + + | Juana Gasca | ECON | [address] | | | | | [place] | | | | | [address] | | + + + + + | Juana Gasca | ECON | Unknown | | + + + + + Care Team Providers + +------+ + | Care Makeup Sales Consultant Name | Role | Phone | [...] | 04/13/ | Refill | [facility] [place] | Abhinav, | Medication Refill | | 2014 | | PULMONARY [address] | [place] You MD | | | | | [place], | | | | | | [place] [address] | | | | | | [phone] | | | +--------+--------+ + + + [...] [place] | | | | | | [address] | | | | | | | | +--------+---------+ + + + documented as of this encounter Visit Diagnoses Not on filedocumented in this encounter"
--- OUTSIDE RECORDS SUMMARY | ~2019-06-03 | XMS | Encounter Summary ---
Demographics + + + | Address | [address] | | | [place] [address] | + + + | Home Phone | | + + + | Preferred Language | Unknown | + + + | Marital Status | | + + + | Holiness Affiliation | 1013 | + + + | Race | Unknown | + + + | Ethnic Group | Unknown | + + + Author + + + | Author | [facility] | | | and [place] | + + + | Organization | [facility] | | | [...] | | | | [place], [place] [address] | | + + + + + | Juana Gasca | ECON | [address] | | | | | [place] | | | | | [address] | | + + + + + | Juana Gasca | ECON | Unknown | | + + + + + Care Team Providers + +------+ + | Care Cable Placer Name | Role | Phone | + [...] | apnea (adult) | | | | [place], | | (pediatric) | | | | [place] [address] | | | | | | [phone] | | | +--------+ + + + [...] [place] | | | | | | [address] | | | | | | | | +--------+---------+ + + + documented as of this encounter Visit Diagnoses + + | Diagnosis | + + | Obstructive sleep apnea (adult) (pediatric) | + + documented in this encounter"
--- OUTSIDE RECORDS SUMMARY | ~2019-06-03 | XMS | Encounter Summary ---
Demographics + + + | Address | [address] | | | [place] [address] | + + + | Home Phone [...] | | | | [place], [place] [address] | | + + + + + | Juana Gasca | ECON | [address] | | | | | [place] | | | | | [address] | | + + + + + | Juana Gasca | ECON | Unknown | | + + + + + Care Team Providers + +------+ + | Care Fellmongering Machine Operator Name | Role | Phone | + +------+ + | Timo Lorenzana | PCP | | | MD | | | + +------+ + Reason for Visit +--------+ + | Reason | Comments | +--------+ + | Other | FYI: [facility] visit 05/12/2013 | +--------+ + Encounter Details +--------+ + + + + | Date | Type | Department | Care Team | Description | +--------+ + + + + | 05/16/ | Telephone | [facility] [place] | Aleida Smart, | Other (FYI: | | 2012 | | PULMONARY [address] | RN [address] | ER visit | | | | [place], | [place] | 05/12/2013) | | | | [place] [address] | [address] | | | | | [phone] | | | +--------+ + + + [...] | | | | | [place] | | | | | | [address] | | | | | | | | +--------+---------+ + + + documented as of this encounter Visit Diagnoses Not on filedocumented in this encounter"
--- OUTSIDE RECORDS SUMMARY | ~2019-06-03 | XMS | Encounter Summary ---
Demographics + + + | Address | [address] | | | [place] [address] | + + + | Home Phone [...] | | | | [place], [place] [address] | | + + + + + | Juana Gasca | ECON | [address] | | | | | [place] | | | | | [address] | | + + + + + | Juana Gasca | ECON | Unknown | | + + + + + Care Team Providers + +------+ + | Care Harnessmaker Apprentice Name | Role | Phone | + [...] | | | | | [place] [address] | | | | | | [phone] | | | +--------+ + + + [...] | | | | | [place] | | | | | | [address] | | | | | | | | +--------+---------+ + + + documented as of this encounter Visit Diagnoses + + | Diagnosis | + + | MARY (obstructive sleep apnea) Obstructive sleep apnea (adult) (pediatric) | + + documented in this encounter"
--- OUTSIDE RECORDS SUMMARY | ~2019-06-03 | XMS | Encounter Summary ---
Demographics + + + | Address | [address] | | | [place] [address] | + + + | Home Phone | | + + + | Preferred Language | Unknown | + + + | Marital Status | | + + + | Denominational Affiliation | 1013 | + + + | Race | Unknown | + + + | Ethnic Group | Unknown | + + + Author + + + | Author | [facility] | | | and [place] | + + + | Organization | [facility] | | | [...] | | | | [place], [place] [address] | | + + + + + | Juana Gasca | ECON | [address] | | | | | [place] | | | | | [address] | | + + + + + | Juana Gasca | ECON | Unknown | | + + + + + Care Team Providers + +------+ + | Care Service Station Attendant Name | Role | Phone | [...] + + | 04/29/ | Telephone | [facility] | Alicja Lloyd, | Weight Gain | | 2018 | | CARDIOLOGY JULIAN | [place] | | | | | [address] | | | | | | [place] | | | | | | [address] | | | | | | [phone] | | | +--------+ + + + [...] [place] | | | | | | [address] | | | | | | | | +--------+---------+ + + + documented as of this encounter Visit Diagnoses Not on filedocumented in this encounter"
--- OUTSIDE RECORDS SUMMARY | ~2019-06-03 | XMS | Clinical Summary ---
Demographics + + + | Address | [address] | | | [place] [address] | + + + | Home Phone [...] | | | | [place], [place] [address] | | + + + + + | Juana Gasca | ECON | [address] | | | | | [place] | | | | | [address] | | + + + + + | Juana Gasca | ECON | Unknown | | + + + + + Care Team Providers + +------+ + | Care Clay Modeler Name | Role | Phone | + [...] prophylaxis reenforced. Anticoagulation managed by | | [facility].Hx CABG: no, but MVR [...] + + + | Overview: 03/[facility]/2014 [facility] | + + + + + | [...] | implanted 08/30/2007, [employer]ant Insignia 1291, SN: [id number] | | interrogation 04/16/2015: battery "good", 3+years, [...] 08/30/2007, [employer] | | Insignia 1291, SN: [id number] Cath, 03/09/2014: RA: 80/13 mean | | [...] | | | | | [place], [place] | | | | | | [address] | | | | | | | [...] | 2018 | 5 / | | [id number]: Qty: 1 on | | | SPECIALTI - | | | /166 | | 03/10/2014 | | | WILS | | | | + +------+-------+ +--------+--------+--------+ | Pacing Wire Dual | | N/A: | JORGITO | | 10/02/ | 030-00 | | 030-005 - | | Heart | MEDICAL | | 2018 | 5 / | | [id number]: Qty: 1 on | | | SPECIALTI - | | | /166 | | 03/10/2014 | | | WILS | | | | + +------+-------+ +--------+--------+--------+ | Valve Aortic Mec 23mm | | N/A: | NA UNKNOWN | | 10/02/ | ONXACE | | Onxace-23 S/N - | | Heart | | | 2018 | -23 | | [id number]: Qty: 1 on | | | | | | [id number] | | 03/10/2014 | | | | | | 02 / | + +------+-------+ +--------+--------+--------+ | Pacing Wire Dual | | N/A: | JORGITO | | 09/02/ | 030-00 | | 030-005 - | | Heart | MEDICAL | | 2018 | 5 / | | [id number]: Qty: 1 on | | | SPECIALTI [...] | | + +--------+ +--------+ +---------+--------+ | [facility] | [id number] | 06/05/19 | | | Medica | | MEDICARE PPO | HEALTH | | 19-Pre | | | re | | | CARE | | sent | | | | | | MDCR | | | | | | | | PPO | | | | | | + +--------+ +--------+ +---------+--------+ | MEDICARE | MEDICA | [id number] | 12/03/18 | [phone] | | Medica | | | RE | | 99-Pre | 5 | | re | | | PART A | | sent | | | | | | AND B | | | | | | + +--------+ +--------+ +---------+--------+ | [facility] | UNITED | [id number] | 06/05/19 | [phone] | | PPO [...] odalis | | | 0 (Home) | [address] | + +--------+ +--------+ + + | Serge Gasca | Person | Self | [birth year] | [address] | | | al/Fam | | 1935 | [phone] | [place], [place] | | | odalis | | | 0 (Home) | [address] | + +--------+ +--------+ + + Advance Directives + + + + + | Type | Date Recorded | Patient | Explanation | | | | Gate Operator | | + + + + + | Power of | | | | | Pre Press Operator | | | | + + + + + | Advance | | | | | Directive | | | | + + + + +
--- OUTSIDE RECORDS SUMMARY | ~2019-06-03 | XMS | Encounter Summary ---
Demographics + + + | Address | [address] | | | [place] [address] | + + + | Home Phone [...] | | | | [place] [address] | | + + + + + | Juana Ventura | ECON | [address] | | | | | [place] | | | | | [address] | | + + + + + | Juana Ventura | ECON | Unknown | | + + + + + Care Team Providers + +------+ + | Care Government Sales Manager Name | Role | Phone | + +------+ + PCP | Unavailable | + +------+ + Encounter Details +--------+ + + + + | Date | Type | Department | Care Team | Description | +--------+ + + + + | 11/05/ | Hospital | [facility] | Jin Epps MD | Aortic Valve | | 2008 | Encounter | [facility] | [address] | Disorder | | | | CLINICAL DECISION | [place] [address] | | | | | [address] [facility] | [phone] | | | | | [place], [place] | | | | | | [address] | | | | | | [phone] | | | +--------+ + + + [...] | | | | | [place], [place] | | | | | | [address] | | | | | | | [...] Performed At | + + + | [id number] | | | Page 1 [facility] NAME: | | | [place] [address] MEDICAL RECORD #: | | | [id number] | | | DATE OF : 1935 ORDER | | | NUMBER: [id number] EXAM DATE/TIME: 11/05/2008 13:07 PERFORMING | | [...] pericardium is normal. | | | MEASUREMENTS Polysomnography Technician: CM Authenticated | | | by: Jin Epps MD Report Date/Time: 11-06-2008 17:11:22 | | + + + + + | Procedure Note | + + | Raudel Aguillon - 01/28/2019 1:25 AM PDT [id number] | | Page [address] [place] [address] NAME: [place], | | [place] [address] : ACCOUNT #: | | [id number]: DATE OF : 1935ORDER NUMBER: | | [id number] DATE/TIME: 11/05/2008 13:07PERFORMING PHYSICIAN: Jin Epps MDORDER [...] The pericardium is normal. MEASUREMENTS | | Polysomnography Technician: STEFANIEuthenticated by: Jin [facility] Date/Time: 11-06-2008 17:11:22 | |Right Ventricle: The [...] | |MEASUREMENTS | | | | | |Polysomnography Technician: CM | |Authenticated by: Jin Epps MD | |Report Date/Time: 11-06-2008 17:11:22 | + + documented in this encounter Visit Diagnoses + + | Diagnosis | + + | Aortic valve disorder Aortic valve disorders | + + documented in this encounter"
--- OUTSIDE RECORDS SUMMARY | ~2019-06-03 | XMS | Encounter Summary ---
Demographics + + + | Address | [address] | | | [place] [address] | + + + | Home Phone [...] | | | | [place], [place] [address] | | + + + + + | Juana Gasca | ECON | [address] | | | | | [place] | | | | | [address] | | + + + + + | Juana Gasca | ECON | Unknown | | + + + + + Care Team Providers + +------+ + | Care Claims Supervisor Name | Role | Phone | [...] + + | 03/29/ | Office | [facility] | [place], | COPD (chronic | | 2012 | Visit | PULMONARY [address] | Florence You MD | obstructive | | | | [place], | | pulmonary disease) | | | | [place] [address] | | ([facility]) (Primary Dx); | | | | [phone] | | Obstructive sleep | | | [...] from the original. Pulmonary Follow Up Note [place] La MD [place] [facility] [address] [place], [address] [facility] Serge Gasca is a 78 y.o. 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 They return today for ro utine follow up. Currently they are using their rescue inhaler, albuterol, 1 times a day, an d usually this is at night. Currently they are able to walk several blocks at their own pace on level ground. He is not exercising regularly. 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 Xvcrlunncyn-Tvhvvtmte-Zyt C-Mn (GLUCOSAMINE 1500 COMPLEX PO) Active Take [...] made to ensure accuracy; however, inadvertent computerized package checker errors may be pre sent. documented in t his encounter Plan of Treatment +--------+---------+ + + + | Date | Type | Specialty | Care Team | Description | +--------+---------+ + + + | 10/22/ | Office | Cardiology | Elif Hylton, | | | 2019 | Visit | | MD Asad FIELDS | | | | | | [place], [place] | | | | | | [id number] | | | | | | | [...]
--- OUTSIDE RECORDS SUMMARY | ~2019-06-03 | XMS | Encounter Summary ---
Demographics + + + | Address | [address] | | | [place] [address] | + + + | Home Phone [...] | | | | [place], [place] [address] | | + + + + + | Juana Gasca | ECON | [address] | | | | | [place] | | | | | [address] | | + + + + + | Juana Gasca | ECON | Unknown | | + + + + + Care Team Providers + +------+ + | Care Cloth Shrinking Tester Name | Role | Phone | [...] + + | 03/08/ | Office | [facility] | Yuri Raymond | Centrilobular | | 2019 | Visit | PULMONOLOGY [address] | Rush Raymond MD [address] | emphysema (HCC) | | | | [place] | [place] | (Primary Dx); | | | | [place], [place] | [place] [address] | Chronic obstructive | | | | [address] | [phone] | pulmonary disease, | | | | [phone] | | unspecified COPD | | | [...] might be dif ferent from the original. [facility]Y [address] [place], [place] [id number] HISTORY: Chief Complaint: I have been asked to assist in the pulmonary evaluation of Serge jean, 83 y.o. male, for COPD History of Present Illness: Interval history: "Serge Gasca is a 80 year old gentleman referred to me for COPD. He was previously fol lowing with Dr. La at [facility] for his pulmonary issues. He is maintained [...] - [facility]; Surgeon: Jassi Elizondo MD; Location: [facility]; Service: Cardiac; Laterality: N/A; OTHER SURGICAL HISTORY 03/10/2014 CYSTOSTOMY W/ BLADDER DILATION - Procedure: CYSTOSCOPY - DILATATION; Surgeon: Timothy badillo MD; Location: [facility]; Service: Cardiac; Laterality: N/A; [...] into the lungs 2 (two) times daily. Eghyabuxibd-Loetnxypp-Yfg C-Mn (GLUCOSAMINE 1500 COMPLEX PO) (Taking) Take [...] Raymond MD Pulmonary and Critical Care Medicine [facility] Pulmonology documented in this encounter Plan of Treatment +--------+---------+ + + + | Date | Type | Specialty | Care Team | Description | +--------+---------+ + + + | 10/22/ | Office | Cardiology | Elif Hylton, | | | 2019 | Visit | | MD Asad FIELDS | | | | | | [place] | | | | | | [id number] | | | | | | | [...]
--- OUTSIDE RECORDS SUMMARY | ~2019-06-03 | XMS | Encounter Summary ---
Demographics + + + | Address | [address] | | | [place] [address] | + + + | Home Phone [...] | | | | [place], [place] [address] | | + + + + + | Juana Gasca | ECON | [address] | | | | | [place] | | | | | [address] | | + + + + + | Juana Gasca | ECON | Unknown | | + + + + + Care Team Providers + +------+ + | Care Litharge Mill Operator Name | Role | Phone | + +------+ + | Timo Lorenzana | PCP | | | MD | | | + +------+ + Encounter Details +--------+ + + + + | Date | Type | Department | Care Team | Description | +--------+ + + + + | 04/03/ | Orders Only | [facility] | Conversion | | | 2013 | | CARDIOLOGY [place] | Transaction, | | | | | [address] | Provider Unknown | | | | | [place], [place] | [phone] | | | | | [address] | | | | | | [phone] | | | +--------+ + + + [...] | | | | | [place] | | | | | | [address] | | | | | | | [...]
--- OUTSIDE RECORDS SUMMARY | ~2019-06-03 | XMS | Encounter Summary ---
Demographics + + + | Address | [address] | | | [place] [address] | + + + | Home Phone | | + + + | Preferred Language | Unknown | + + + | Marital Status | | + + + | Jew Affiliation | 1013 | + + + | Race | Unknown | + + + | Ethnic Group | Unknown | + + + Author + + + | Author | [facility] | | | and [place] | + + + | Organization | [facility] | | | and [place] | + + + | Address | Unknown | + + + | Phone | Unavailable | + + + Support + + + + + | Name | Relationship | Address | Phone | + + + + + | Frances Gasca | ECON | NA | | | | | [place], [place] [address] | | + + + + + | Juana Gasca | ECON | [address] | | | | | [place] | | | | | [address] | | + + + + + | Juana Gasca | ECON | Unknown | | + + + + + Care Team Providers + +------+ + | Care Otolaryngology Rep Name | Role | Phone | + [...] | apnea (adult) | | | | [place], | | (pediatric) | | | | [place] [address] | | | | | | [phone] | | | +--------+ + + + [...] [place] | | | | | | [address] | | | | | | | | +--------+---------+ + + + documented as of this encounter Visit Diagnoses + + | Diagnosis | + + | Obstructive sleep apnea (adult) (pediatric) | + + documented in this encounter"
--- OUTSIDE RECORDS SUMMARY | ~2019-06-03 | XMS | Encounter Summary ---
Demographics + + + | Address | [address] | | | [place] [address] | + + + | Home Phone [...] | | | | [place], [place] [address] | | + + + + + | Juana Gasca | ECON | [address] | | | | | [place] | | | | | [address] | | + + + + + | Juana Gasca | ECON | Unknown | | + + + + + Care Team Providers + +------+ + | Care Multi Needle Machine Operator Name | Role | Phone [...] | | | | | [place] [address] | | | | | | [phone] | | | +--------+ + + + [...] daily, Disp: 3 each, Rfl: 4; Glucosam qax-Ctquointk-Mao C-Mn (GLUCOSAMINE 1500 COMPLEX PO), Take 1,500 [...] [place] | | | | | | [address] | | | | | | | | +--------+---------+ + + + documented as of this encounter Visit Diagnoses Not on filedocumented in this encounter"
--- OUTSIDE RECORDS SUMMARY | ~2019-06-03 | XMS | Encounter Summary ---
Demographics + + + | Address | [address] | | | [place] [address] | + + + | Home Phone | | + + + | Preferred Language | Unknown | + + + | Marital Status | | + + + | Scientologist Affiliation | 1013 | + + + | Race | Unknown | + + + | Ethnic Group | Unknown | + + + Author + + + | Author | [facility] | | | and [place] | + + + | Organization | [facility] | | [...] | | | | [place], [place] [address] | | + + + + + | Juana Gasca | ECON | [address] | | | | | [place] | | | | | [address] | | + + + + + | Juana Gasca | ECON | Unknown | | + + + + + Care Team Providers + +------+ + | Care Air Conditioning Mechanic Name | Role | Phone | [...] | ER visit | | | | [place], | [place] | 05/12/2013) | | | | [place] [address] | [address] | | | | | [phone] | | | +--------+ + + + [...] | | | | | [place] | | | | | | [address] | | | | | | | | +--------+---------+ + + + documented as of this encounter Visit Diagnoses Not on filedocumented in this encounter"
--- OUTSIDE RECORDS SUMMARY | ~2019-06-03 | XMS | Encounter Summary ---
Demographics + + + | Address | [address] | | | [place] [address] | + + + | Home Phone | | + + + | Preferred Language | Unknown | + + + | Marital Status | | + + + | Worship Affiliation | 1013 | + + + | Race | Unknown | + + + | Ethnic Group | Unknown | + + + Author + + + | Author | [facility] | | | and [place] | + + + | Organization | [facility] | | [...] | | | | [place], [place] [address] | | + + + + + | Juana Gasca | ECON | [address] | | | | | [place] | | | | | [address] | | + + + + + | Juana Gasca | ECON | Unknown | | + + + + + Care Team Providers + +------+ + | Care Chief Unit Forester Name | Role | Phone [...] | Refill | [facility] | Elif Hylton, | Medication Refill | | 2019 | | CARDIOLOGY JULIAN | [address] | | | | | [address] | [place] | | | | | [place] | [address] | | | | | [address] | | | | | | [phone] | | | +--------+--------+ + + + [...] [place] | | | | | | [address] | | | | | | | | +--------+---------+ + + + documented as of this encounter Visit Diagnoses Not on filedocumented in this encounter"
--- OUTSIDE RECORDS SUMMARY | ~2019-06-03 | XMS | Encounter Summary ---
Demographics + + + | Address | [address] | | | [place] [address] | + + + | Home Phone [...] | | | | [place], [place] [address] | | + + + + + | Juana Gasca | ECON | [address] | | | | | [place] | | | | | [address] | | + + + + + | Juana Gasca | ECON | Unknown | | + + + + + Care Team Providers + +------+ + | Care Director Data Processing Name | Role | Phone | + +------+ + | Med Lorenzana | PCP | | | MD | | | + +------+ + Encounter Details +--------+ + + + + | Date | Type | Department | Care Team | Description | +--------+ + + + + | 03/07/ | Hospital | [facility] | Erika Fortune | Rheumatic mitral | | 2013 - | Encounter | [facility] | MD [address] | valve disease; | | | | CARE FLOOR [address] | Calvin Pastor | Atrial fibrillation, | | 03/14/ | | [address] | [place] [address] | chronic (HCC) | | 2013 | | [place], [place] | [phone] | | | | | [address] | | | | | | [phone] | | | +--------+ + + + [...] Thoracic, and Vascular Surgery Author Type: Physician Telephone Solicitor - Certified Filed: 03/17/14 1441 Date of Service: 03/17/141427 Status: Attested Sales Support Consultant: Andrei Lindsay PA-C (Physician Telephone Solicitor - Certified) Cosigner: Timothy Whitaker MD at 03/18/14757 Attestation signed by Timothy Whitaker MD at 03/18/14757 I have examined Denise Gasca, reviewed the notes, assessments, and/or procedures perfor med by Andrei Lindsay PA-C, I concur with his documentation of Denise Gasca. [facility] Service: Cardiothoracic Surgery Discharge Summary Date of [...] - REDO; Surgeon: Timothy Whitaker MD; Location: [facility] MAIN OR; Service: Cardiac; Laterality: N/A; Cystostomy w/ bladder dilation N/A 03/10/2014 Procedure: CYSTOSCOPY - DILATATION; Surgeon: Timothy Whitaker MD; Location: [facility] MA[facility] OR ; Service: Cardiac; [...] Requested: 1 Follow up: Med Lorenzana MD [facility] [address] [facility] [address] On 03/18/2014 Medication List START taking these [...] are the prescriptions that you need to cook pickled meat. You may get the following medications from [...] 1546 Date of Service: 03/14/141399 Status: Signed Sales Support Consultant: Nataliia Baldwin RN (Registered Nurse) Reviewed d/c [...] Case Management by ARACELY Andrea at 03/14/14 1307 Author: ARACELY Andrea Service: (none) Author Type: Receiving Tank Operator Filed: 03/14/14 8486 Date of Service: 03/14/14 130 Status: Signed Sales Support Consultant: ARACELY Andrea (Receiving Tank Operator) 03/14/14 1303 Anticipated Discharge Plan Post Acute Care Needs (Will f/u at Coumadin clinic at [facility]) Anticipated Disposition Facility Type Home Disposition: Home [...] 03/14/14919 Date of Service: 03/14/14914 Status: Signed Sales Support Consultant: ZAYRA Acevedo (Occupational Therapist) 03/14/14914 Plan Requires OT Follow Up Unavailable (Pt with nursing.) OT will re-attempt as census permits. onver gurpreet Transaction, Provider Unknown - 03/14/2014 8:44 AM PDT Nurse Progress Note by Larissa Alvarez RN at 03/14/14843 Author: Larissa Alvarez RN Service: (none) Author Type: Registered Nurse Filed: 03/14/14843 Date of Service: 03/14/14843 Status: Signed Sales Support Consultant: Larissa Alvarez RN (Registered Nurse) Re-visited pt today regarding Coumadin Education. Good retention of information. Haritha Mackenzie PT - 03/14/2014 8:25 AM PDTFormatting of this note might be different from th e original. Therapy Progress Note by Haritha Jean PT at 03/14/14824 Author: Haritha Jean PT Service: (none) Author Type: Physical Therapist Filed: 03/14/14 1053 Date of Service: 03/14/14824 Status: Signed Sales Support Consultant: Haritha L Wells, PT (Physical Therapist) 03/14/14 3608 PT Last Visit PT Received On 03/14/14 Reason for Treatment Cardiac Requires PT Follow Up Yes Follow up PT Only? No Assistance Required 1 person Cook Pickled Meat Needed No Precautions Cardiac Precautions Sternal Other [...] instruction;Patient appears safe Maximal Ambulation Distance (feet) [id number] Total Ambulation Distance (feet) 200ft Distance limited [...] Recommendations Return to prior living situation;Other (comment) [facility] by -[facility]) Equipment Recommended Other (Comment);None (he reported he has what he needs) B/P 128/59 P 85- pre-PT Timothy Vázquez MD - 03/14/2014 7:33 AM PDT Progress Notes by Timothy Whitaker MD at 03/14/14732 Author: Timothy Whitaker MD Service: (none) Author Type: Physician Filed: 03/14/14735 Date of Service: 03/14/14732 Status: Signed Sales Support Consultant: Timothy Whitaker MD (Physician) [facility] Service: Cardio Thoracic Surgery Progress Note Pt: Denise Gasca AGE/SEX: 78 y.o. male ROOM: [address] [place] [address] : 1935 PCP: MED LORENZANA ADMIT DATE: [...] chloride 0.9 % 10 mL Intravenous Q12H [facility] sulfamethoxazole-trimethoprim 1 tablet Oral Daily tiotropium 18 [...] Note by Jesus Latham PT at 03/13/14 5973 Author: Jesus Latham PT Service: (none) Author Type: Physical Therapist Filed: 03/13/14 0731 Date of Service: 03/13/14 3508 Status: Signed Sales Support Consultant: Jesus Latham PT (Physical Therapist) 03/13/14 4139 PT Last Visit PT Received On 03/13/14 [...] Notes by Rozina Davis RN at 03/13/14 1545 Author: Rozina Davis RN Service: (none) Author Type: Registered Nurse Filed: 03/13/14 1548 Date of Service: 03/13/14 154 Status: Signed Sales Support Consultant: Rozina Davis RN (Registered Nurse) After speaking [...] Progress Note by ZAYRA Acosta at 03/13/14 0464 Author: ZARYA Acosta Service: (none) Author Type: Occupational Therapist Filed: 03/13/14 7489 Date of Service: 03/13/141252 Status: Signed Sales Support Consultant: ZAYRA Acosta (Occupational Therapist) 03/13/14 1254 Precautions [...] for larger walker) Home Equipment Walker front wheeled;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 Prior Function Level of [place] Independent with functional mobility;Independent with ADLs;Independe nt with IADLs;Driving in community Lives With Spouse ADL Assistance Independent Home ADL's Independent Sliver Lapper Making bed;Washing dishes;Taking out trash Employment Retired [...] Shower chair without back;Elastic shoe laces;Sponge long handled;[facility] Education Completed: Education Topic: AE and adaptive [...] Date of Service: 03/13/14 102 Status: Signed Sales Support Consultant: Evelina Plata RN (Registered Nurse) Patient transferred [...] 1127 Date of Service: 03/13/14909 Status: Signed Sales Support Consultant: Med Berger PT (Physical Therapist) 03/13/14909 PT [...] Thoracic, and Vascular Surgery Author Type: Physician Telephone Solicitor - Certified Filed: 03/13/147 Date of Service: 03/13/14750 Status: Attested Sales Support Consultant: Andrei Lindsay PA-C (Physician Telephone Solicitor - Certified) Cosigner: Timothy Whitaker MD at 03/14/142 Attestation signed by Timothy Whitaker MD at 03/14/14 725 I have examined Denise Gasca, reviewed the [...] chloride 0.9 % 10 mL Intravenous Q12H [facility] sulfamethoxazole-trimethoprim 1 tablet Oral Daily tiotropium 18 [...] 03/13/14517 Date of Service: 03/13/14517 Status: Signed Sales Support Consultant: Newton Mai RPH (Pharmacist) Note ccl 72ml/min meds reviewed pharmacy will follow rdc 0518 onver gurpreet Transaction, Provider Unknown - 03/12/2014 2:10 PM PDT Therapy Progress Note by Med Berger PT at 03/12/14 1410 Author: Med Berger PT Service: (none) Author Type: Physical Therapist Filed: 03/12/14 1441 Date of Service: 03/12/14 1410 Status: Signed Sales Support Consultant: Med Berger PT (Physical Therapist) 03/12/14 1410 [...] PT had pt sit in wheelchair and PIN MACHINE OPERATOR whe eled pt back to his room. [...] (none) Author Type: Registered Nurse Filed: 03/12/14 1310 Date of Service: 03/12/14 1313 Status: Signed Sales Support Consultant: Larissa Alvarez RN (Registered Nurse) Visited patient for coumadin education. They have been on coumadin prior to this hospitaliz ation and pcp in [place] manages their dosing. Informed of today's inr. They have no quest ions regarding coumadin at this time. Refused Coumadin Education booklet. onver gurpreet Bowersaction, Provider Unknown - 03/12/2014 10:08 AM PDT Case Management by ARACELY Espinal at 03/12/14 1008 Author: ARACELY Espinal Service: (none) Author Type: Receiving Tank Operator Filed: 03/12/14 1010 Date of Service: 03/12/14 1008 Status: Addendum Sales Support Consultant: ARACELY Espinal (Receiving Tank Operator) Related Notes: Original Note by ARACELY Espinal (Receiving Tank Operator) filed at 03/12/14 1009 03/12/14 1005 Discharge [...] 09 Date of Service: 03/12/14829 Status: Signed Sales Support Consultant: Med Berger PT (Physical Therapist) 03/12/14829 PT [...] returned demo nstration according to instruction given. [id number] was the most difficult for him. Pt [...] Thoracic, and Vascular Surgery Author Type: Physician Telephone Solicitor - Certified Filed: 03/12/14 1548 Date of Service: 03/12/14550 Status: Attested Addendum Sales Support Consultant: Andrei Lindsay PA-C (Physician Telephone Solicitor - Certified) Related Notes: Original Note by Andrei Lindsay PA-C (Physician Telephone Solicitor - Certified) file d at 03/12/14 1536 [...] (none) Author Type: Physical Therapist Filed: 03/11/14 5555 Date of Service: 03/11/14 1440 Status: Signed Sales Support Consultant: Sam Lemon PT (Physical Therapist) 03/11/14 1440 [...] Recommended (anticipate none) Prior Function Level of [place] Independent with functional mobility;Independent with ADLs;Independe nt [...] Patient's ability Pattern Decreased brooks;WFL Assistive Device (PULL THROUGH HOOKER on w/c) Balance Balance (Pt. is steady [...] Thoracic, and Vascular Surgery Author Type: Physician Telephone Solicitor - Certified Filed: 03/11/14 1323 Date of Service: 03/11/14 0910 Status: Attested Sales Support Consultant: Andrei Lindsay PA-C (Physician Telephone Solicitor - Certified) Cosigner: Timothy Whitaker MD at [...] 03/10/142019 Date of Service: 03/10/142013 Status: Signed Sales Support Consultant: Vin Amador () Met with pt's Zamzam [...] for Zamzam. Family voiced repeated thx for duralumin mechanic's availability and support throughout th is long day. CRISTIAN Marrero onviktoriya vázquez Transaction, Provider Unknown - 03/10/2014 8:13 PM PDT Progress Notes by Vin Amador at 03/10/142012 Author: Vin Amador Service: (none) Author Type: Filed: 03/10/142012 Date of Service: 03/10/142012 Status: Signed Sales Support Consultant: iVn Amador () Delivered on-pump report to Zamzam and sons per protocols. CRISTIAN Marrero onver gurpreet Transaction, Provider Unknown - 03/10/2014 8:09 PM PDT Progress Notes by Vin Amador at 03/10/142008 Author: Vin Amador Service: (none) Author Type: Filed: 03/10/142010 Date of Service: 03/10/142008 Status: Signed Sales Support Consultant: Vin Amador () Received p/c from [facility], [...] 03/10/142007 Date of Service: 03/10/142004 Status: Signed Sales Support Consultant: Vin Amador () Per open heart pt protocols, I met with pt's family to assess ongoing needs and orient [facility] service's support during surgery. Zamzam, sons Andrei and Chad, and a broth er present for orientation. Family are active in their [place] community and are well supporte d by their screen printing stencil preparer/friend today. I provided flow card to family and will update them per prot ocmariia throughout the afternoon. CRISTIAN Marrero onver gurpreet Bowersaction, Provider Unknown - 03/09/2014 10:45 AM PDT Nurse Progress Note by Rupal Canela RN at 03/09/14 104 Author: Rupal Canela RN Service: (none) Author Type: Registered Nurse Filed: 03/09/14 1053 Date of Service: 03/09/141044 Status: Signed Sales Support Consultant: Rupal Canela RN (Registered Nurse) Pt return from manager cardiac cath via stretcher, alert and oriented x 4. Denies any Pain, right groi n with soft, with safeguard intact, scant amount old drainage on dressing. Right pedal puls e 2+, VSS, IVF infusing. onver gurpreet Transaction, Provider Unknown - 03/08/2014 2:58 PM PDT Case Management by ARACELY Walker at 03/08/14 7947 Author: ARACELY Walker Service: (none) Author Type: Receiving Tank Operator Filed: 03/08/14 7262 Date of Service: 03/08/142 Status: Addendum Sales Support Consultant: ARACELY Walker (Receiving Tank Operator) Related Notes: Original Note by ARACELY Walker (Receiving Tank Operator) filed at 03/08/14 1501 03/08/14 1400 Discharge [...] and IADLs, states outpatient o [facility]cology at [facility] has a regimented program which follows his Coumad in levels since 2005. Patient's PCP is: MED Roe Patient's insurance: Medicare / [facility] Coverage concerns: None Medication coverage/concerns: None Community resources utilized / needed: None Assistance in transportation: Pt family Identification of any specific education / training: Pending clinical course, unknown Barriers to Discharge / Alternative housing needed: Pending clinical course, unknown Anticipated DCP: Home - pending clinical course. CACHORRO REID, Allergy And Immunology Chief [phone] cell Erika Bhandari MD - 03/08/2014 2:36 PM PDTFormatting of this note might be different fro m the original. Progress Notes by Erika Fortune DO at 03/08/14 0994 Author: Erika Fortune DO Service: Cardiology Author Type: Physician Filed: 03/08/14 5319 Date of Service: 03/08/141435 Status: Signed Sales Support Consultant: Erika Fortune DO (Physician) [facility] Service: Cardiology Progress Note Hospital Day: LOS: [...] 3: Pacemaker/ICD: yes, Guidant Insignia 1291, SN: [id number] Code Status: Full Code ERIKA Carrington DO HOLA 03/08/2014 onversio n Transaction, Provider Unknown - 03/07/2014 5:35 PM PDTFormatting of this note might be di fferent from the original. Progress Notes by Jessica Lieberman RPH at 03/07/14 9911 Author: Jessica Lieberman RPH Service: (none) Author Type: Pharmacist Filed: 03/07/14 9985 Date of Service: 03/07/141734 Status: Signed Sales Support Consultant: Jessica Lieberman RPH (Pharmacist) Renal Dosing Monitoring: [...] [place] | | | | | | [address] | | | | | | | [...] | | | Fingerstick | performed at [facility];[address] | | LAB | | | | [address];[place], [place] | | | | | | [address] | | | | + + + [...] | | | Fingerstick | performed at [facility];[address] | | LAB | | | | [address];[place], [place] | | | | | | [address] | | | | + + + [...] EXTERNAL | | | | performed at [facility], [address] | | LAB | | | | [place], | | | | | | [place] [address] | | | | + + + + + + | RED CELL | 2.66 (L)Comment: Testing | 4.20 - 5.70 | EXTERNAL | | | COUNT | performed at [facility], [address] | M/uL | LAB | | | | [address], | | | | | | [place] [address] | | | | + + + + + + | Hgb | 8.8 (L)Comment: Testing | 13.2 - 17.0 | EXTERNAL | | | | performed at [facility], [address] | g/dL | LAB | | | | [address], | | | | | | [place] [address] | | | | + + + + + + | Hematocrit, | 26.3 (L)Comment: Testing | 39.0 - 50.0 % | EXTERNAL | | | POC | performed at [facility], [address] | | LAB | | | | [address], | | | | | | [place] [address] | | | | + + + + + + | MCV | 98.9Comment: Testing | 80.0 - 100.0 fl | EXTERNAL | | | | performed at [facility], [address] | | LAB | | | | [address], | | | | | | [place] [address] | | | | + + + + + + | MCH | 33.2Comment: Testing | 27.0 - 34.0 pg | EXTERNAL | | | | performed at [facility], [address] | | LAB | | | | [address], | | | | | | [place] [address] | | | | + + + + + + | MCHC | 33.6Comment: Testing | 32.0 - 35.5 | EXTERNAL | | | | performed at [facility], [address] | g/dL | LAB | | | | [address], | | | | | | [place] [address] | | | | + + + + + + | RDW-CV | 57.8 (H)Comment: Testing | 37 - 53 fl | EXTERNAL | | | | performed at [facility], [address] | | LAB | | | | [address], | | | | | | [place] [address] | | | | + + + + + + | Platelet | 126 (L)Comment: Testing | 150 - 400 K/uL | EXTERNAL | | | Count | performed at [facility], [address] | | LAB | | | Plasma | [address], | | | | | | [place] [address] | | | | + + + + + + | MPV | 9.3Comment: Testing | fl | EXTERNAL | | | | performed at [facility], [address] | | LAB | | | | [address], | | | | | | [place] [address] | | | | + + + [...] | | | | | performed at [facility];[address] | | | | | | [facility];[place], [place] | | | | | | [address] | | | | + + + [...] EXTERNAL | | | | performed at [facility], [address] | | LAB | | | | [address], | | | | | | [place] [address] | | | | + + + [...] | | | | [place] [address] | | | | + + + + + + | K | 5.1 (H)Comment: Testing | 3.5 - 4.9 | EXTERNAL | | | | performed at [facility], [address] | mmol/L | LAB | | | | [address], | | | | | | [place] [address] | | | | + + + + + + | Cl | 98 (L)Comment: Testing | 99 - 109 mmol/L | EXTERNAL | | | | performed at [facility], [address] | | LAB | | | | [address], | | | | | | [place] [address] | | | | + + + + + + | CO2 | 27Comment: Testing | 23 - 32 mmol/L | EXTERNAL | | | | performed at [facility], [address] | | LAB | | | | [address], | | | | | | [place] [address] | | | | + + + + + + | Anion Gap | 9Comment: Testing | 5 - 20 mmol/L | EXTERNAL | | | | performed at [facility], [address] | | LAB | | | | [address], | | | | | | [place] [address] | | | | + + + + + + | Glucose, | 101 (H)Comment: Testing | 65 - 99 mg/dL | EXTERNAL | | | Fasting | performed at [facility], [address] | | LAB | | | | [address], | | | | | | [place] [address] | | | | + + + + + + | BUN | 24Comment: Testing | 8 - 25 mg/dL | EXTERNAL | | | | performed at [facility], [address] | | LAB | | | | [address], | | | | | | [place] [address] | | | | + + + + + + | Creatinine | 1.12Comment: Testing | 0.70 - 1.30 | EXTERNAL | | | | performed at [facility], [address] | mg/dL | LAB | | | | [address], | | | | | | [place] [address] | | | | + + + + + + | BUN/Creatin | 21Comment: Testing | | EXTERNAL | | | ine Ratio | performed at [facility], [address] | | LAB | | | | [address], | | | | | | [place] [address] | | | | + + + + + + | Calcium | 8.8Comment: Testing | 8.5 - 10.2 | EXTERNAL | | | | performed at [facility], [address] | mg/dL | LAB | | | | [facility], | | | | | | [place] [address] | | | | + + + [...] | | | | | | at [facility], [address] | | | | | | [address], | | | | | | [place] [address] | | | | + + + [...] | | | Fingerstick | performed at [facility];[address] | | LAB | | | | [address];[place], [place] | | | | | | [address] | | | | + + + [...] | | | Fingerstick | performed at [facility];[address] | | LAB | | | | [address];[place], [place] | | | | | | [address] | | | | + + + [...] | | | Fingerstick | performed at [facility] | | LAB | | | | [place] [address] | | | | | | [address] | | | | + + + [...] CHEST 2 VIEW FRONTAL | | AND IQGRSOI26/9/2014 8:37 AM HISTORY:Followup tube placement. Recent heart [...] EXTERNAL | | | | performed at [facility];[address] | | LAB | | | | [address];[place] | | | | | | [address] | | | | + + + + + + | RED CELL | 2.80 (L)Comment: Testing | 4.20 - 5.70 | EXTERNAL | | | COUNT | performed at [facility];[address] | M/uL | LAB | | | | [address];[place] | | | | | | [address] | | | | + + + + + + | Hgb | 9.1 (L)Comment: Testing | 13.2 - 17.0 | EXTERNAL | | | | performed at [facility];[address] | g/dL | LAB | | | | [address];[place] | | | | | | [address] | | | | + + + + + + | Hematocrit, | 27.3 (L)Comment: Testing | 39.0 - 50.0 % | EXTERNAL | | | POC | performed at [facility];[address] | | LAB | | | | [address];[place] | | | | | | [address] | | | | + + + + + + | MCV | 97.4Comment: Testing | 80.0 - 100.0 fl | EXTERNAL | | | | performed at [facility];[address] | | LAB | | | | [address];[place] | | | | | | [address] | | | | + + + + + + | MCH | 32.6Comment: Testing | 27.0 - 34.0 pg | EXTERNAL | | | | performed at [facility];[address] | | LAB | | | | [address];[place] | | | | | | [address] | | | | + + + + + + | MCHC | 33.4Comment: Testing | 32.0 - 35.5 | EXTERNAL | | | | performed at [facility];[address] | g/dL | LAB | | | | [address];[place] | | | | | | [address] | | | | + + + + + + | RDW-CV | 58.6 (H)Comment: Testing | 37 - 53 fl | EXTERNAL | | | | performed at [facility];[address] | | LAB | | | | [address];[place] | | | | | | [address] | | | | + + + + + + | Platelet | 134 (L)Comment: Testing | 150 - 400 K/uL | EXTERNAL | | | Count | performed at [facility];[address] | | LAB | | | Plasma | [address];[place] | | | | | | [address] | | | | + + + + + + | MPV | 8.3Comment: Testing | fl | EXTERNAL | | | | performed at [facility];[address] | | LAB | | | | [address];[place] | | | | | | [address] | | | | + + + [...] | | | | | performed at [facility] | | | | | | [facility];[place], [place] | | | | | | [address] | | | | + + + [...] EXTERNAL | | | | performed at [facility];[address] | | LAB | | | | [address];[place], [place] | | | | | | [address] | | | | + + + [...] EXTERNAL | | | | performed at [facility];[address] | mmol/L | LAB | | | | [address];[place] | | | | | | [address] | | | | + + + + + + | K | 4.9Comment: Testing | 3.5 - 4.9 | EXTERNAL | | | | performed at [facility];[address] | mmol/L | LAB | | | | [address];[place] | | | | | | [address] | | | | + + + + + + | Cl | 102Comment: Testing | 99 - 109 mmol/L | EXTERNAL | | | | performed at [facility];[address] | | LAB | | | | [address];[place] | | | | | | [address] | | | | + + + + + + | CO2 | 27Comment: Testing | 23 - 32 mmol/L | EXTERNAL | | | | performed at [facility];[address] | | LAB | | | | [address];[place] | | | | | | [address] | | | | + + + + + + | Anion Gap | 10Comment: Testing | 5 - 20 mmol/L | EXTERNAL | | | | performed at [facility];[address] | | LAB | | | | [address];[place] | | | | | | [address] | | | | + + + + + + | Glucose, | 94Comment: Testing | 65 - 99 mg/dL | EXTERNAL | | | Fasting | performed at [facility];[address] | | LAB | | | | [address];[place] | | | | | | [address] | | | | + + + + + + | BUN | 22Comment: Testing | 8 - 25 mg/dL | EXTERNAL | | | | performed at [facility];[address] | | LAB | | | | [address];[place] | | | | | | [address] | | | | + + + + + + | Creatinine | 1.09Comment: Testing | 0.70 - 1.30 | EXTERNAL | | | | performed at [facility];[address] | mg/dL | LAB | | | | [address];[place] | | | | | | [address] | | | | + + + + + + | BUN/Creatin | 20Comment: Testing | | EXTERNAL | | | ine Ratio | performed at [facility];[address] | | LAB | | | | [address];[place] | | | | | | [address] | | | | + + + + + + | Calcium | 8.7Comment: Testing | 8.5 - 10.2 | EXTERNAL | | | | performed at [facility];[address] | mg/dL | LAB | | | | [address];[place] | | | | | | [address] | | | | + + + [...] | | | | | | at [facility];[address] [place] [address] | | | | | | [facility];[place] [address] | | | | + + + [...] | | | Fingerstick | performed at [facility];[address] | | LAB | | | | [place] [address];[place] | | | | | | [address] | | | | + + + [...] | | | Fingerstick | performed at [facility];[address] | | LAB | | | | [address];[place], [place] | | | | | | [address] | | | | + + + [...] | | | Fingerstick | performed at [facility];[address] | | LAB | | | | [address];[place], [place] | | | | | | [address] | | | | + + + [...] | | | Fingerstick | performed at [facility];[address] | | LAB | | | | [place] [address];[place] | | | | | | [address] | | | | + + + [...] | | | Fingerstick | performed at [facility];[address] | | LAB | | | | [address];[place], [place] | | | | | | [address] | | | | + + + [...] | | | | | performed at [facility] | | | | | | [facility];[place], [place] | | | | | | [address] | | | | + + + [...] EXTERNAL | | | | performed at [facility], [facility] | | LAB | | | | [address], | | | | | | [place] [address] | | | | + + + + + + | RED CELL | 2.77 (L)Comment: Testing | 4.20 - 5.70 | EXTERNAL | | | COUNT | performed at [facility], [address] | M/uL | LAB | | | | [address], | | | | | | [place] [address] | | | | + + + + + + | Hgb | 8.9 (L)Comment: Testing | 13.2 - 17.0 | EXTERNAL | | | | performed at [facility], [address] | g/dL | LAB | | | | [address], | | | | | | [place] [address] | | | | + + + + + + | Hematocrit, | 27.5 (L)Comment: Testing | 39.0 - 50.0 % | EXTERNAL | | | POC | performed at [facility], [address] | | LAB | | | | [address], | | | | | | [place] [address] | | | | + + + + + + | MCV | 99.2Comment: Testing | 80.0 - 100.0 fl | EXTERNAL | | | | performed at [facility], [address] | | LAB | | | | [address], | | | | | | [place] [address] | | | | + + + + + + | MCH | 32.0Comment: Testing | 27.0 - 34.0 pg | EXTERNAL | | | | performed at [facility], [address] | | LAB | | | | [address], | | | | | | [place] [address] | | | | + + + + + + | MCHC | 32.3Comment: Testing | 32.0 - 35.5 | EXTERNAL | | | | performed at [facility], [address] | g/dL | LAB | | | | [address], | | | | | | [place] [address] | | | | + + + + + + | RDW-CV | 56.4 (H)Comment: Testing | 37 - 53 fl | EXTERNAL | | | | performed at [facility], [address] | | LAB | | | | [address], | | | | | | [place] [address] | | | | + + + + + + | Platelet | 111 (L)Comment: Testing | 150 - 400 K/uL | EXTERNAL | | | Count | performed at [facility], [address] | | LAB | | | Plasma | [address], | | | | | | [place] [address] | | | | + + + + + + | MPV | 8.7Comment: Testing | fl | EXTERNAL | | | | performed at [facility], [address] | | LAB | | | | [address], | | | | | | [place] [address] | | | | + + + + + + | Differentia | MANUALComment: Testing | | EXTERNAL | | | l Type | performed at [facility], [address] | | LAB | | | | [address], | | | | | | [place], [place] [address] | | | | + + + + + + | Segmented | 87Comment: Testing | % | EXTERNAL | | | Neutrophils | performed at [facility], [address] | | LAB | | | Manual | [address], | | | | | | [place], [place] [address] | | | | + + + + + + | % Bands | 5Comment: Testing | % | EXTERNAL | | | | performed at [facility], [address] | | LAB | | | | [address], | | | | | | [place], [place] [address] | | | | + + + + + + | Lymphocytes | 3Comment: Testing | % | EXTERNAL | | | Manual | performed at [facility], [address] | | LAB | | | | [address], | | | | | | [place], [place] [address] | | | | + + + + + + | Monocytes | 5Comment: Testing | % | EXTERNAL | | | Manual | performed at [facility], [address] | | LAB | | | | [address], | | | | | | [place] [address] | | | | + + + + + + | Absolute | 13.9 (H)Comment: Testing | 1.9 - 7.4 K/uL | EXTERNAL | | | Neutrophils | performed at [facility], [address] | | LAB | | | | [address], | | | | | | [place] [address] | | | | + + + + + + | Bands | 0.8 (H)Comment: Testing | 0 - 0.2 K/uL | EXTERNAL | | | Manual | performed at [facility], [address] | | LAB | | | | [address], | | | | | | [place] [address] | | | | + + + + + + | Absolute | 0.5 (L)Comment: Testing | 1.0 - 3.9 K/uL | EXTERNAL | | | Lymphocytes | performed at [facility], [address] | | LAB | | | | [address], | | | | | | [place] [address] | | | | + + + + + + | Absolute | 0.8Comment: Testing | 0 - 0.8 K/uL | EXTERNAL | | | Monocytes | performed at [facility], [address] | | LAB | | | | [address], | | | | | | [place] [address] | | | | + + + + + + | RBC | 1+Comment: ANISONORMAL | | EXTERNAL | | | Morphology | PLT MORPHTesting | | LAB | | | | performed at [facility], [address] | | | | | | [address], | | | | | | [place] [address] | | | | | | | [...] EXTERNAL | | | | performed at [facility], [address] | | LAB | | | | [address], | | | | | | [place] [address] | | | | + + + [...] | | | | [place] [address] | | | | + + + + + + | K | 4.8Comment: Testing | 3.5 - 4.9 | EXTERNAL | | | | performed at [facility], [address] | mmol/L | LAB | | | | [address], | | | | | | [place] [address] | | | | + + + + + + | Cl | 103Comment: Testing | 99 - 109 mmol/L | EXTERNAL | | | | performed at [facility], [address] | | LAB | | | | [address], | | | | | | [place] [address] | | | | + + + + + + | CO2 | 26Comment: Testing | 23 - 32 mmol/L | EXTERNAL | | | | performed at [facility], [address] | | LAB | | | | [address], | | | | | | [place] [address] | | | | + + + + + + | Anion Gap | 8Comment: Testing | 5 - 20 mmol/L | EXTERNAL | | | | performed at [facility], [address] | | LAB | | | | [address], | | | | | | [place] [address] | | | | + + + + + + | Glucose, | 142 (H)Comment: Testing | 65 - 99 mg/dL | EXTERNAL | | | Fasting | performed at [facility], [address] | | LAB | | | | [address], | | | | | | [place] [address] | | | | + + + + + + | BUN | 23Comment: Testing | 8 - 25 mg/dL | EXTERNAL | | | | performed at [facility], [address] | | LAB | | | | [address], | | | | | | [place] [address] | | | | + + + + + + | Creatinine | 1.16Comment: Testing | 0.70 - 1.30 | EXTERNAL | | | | performed at [facility], [address] | mg/dL | LAB | | | | [address], | | | | | | [place] [address] | | | | + + + + + + | BUN/Creatin | 20Comment: Testing | | EXTERNAL | | | ine Ratio | performed at [facility], [address] | | LAB | | | | [address], | | | | | | [place] [address] | | | | + + + + + + | Calcium | 8.8Comment: Testing | 8.5 - 10.2 | EXTERNAL | | | | performed at [facility], [address] | mg/dL | LAB | | | | [facility] [facility] [address], | | | | | | [place] [address] | | | | + + + [...] W | | | | | | [facility] [address], | | | | | | [place] [address] | | | | + + + [...] | | | Fingerstick | performed at [facility];[address] | | LAB | | | | [place] | | | | | | [address] | | | | + + + [...] | | | Fingerstick | performed at [facility];[address] | | LAB | | | | [address];[place], [place] | | | | | | [address] | | | | + + + [...] | | | Fingerstick | performed at [facility];[address] | | LAB | | | | [place] | | | | | | [address] | | | | + + + [...] EXTERNAL | | | | performed at [facility];[address] | mmol/L | LAB | | | | [address];[place], [place] | | | | | | [address] | | | | + + + [...] | | | Fingerstick | performed at [facility] | | LAB | | | | [place] | | | | | | [address] | | | | + + + [...] | | | Fingerstick | performed at [facility];[address] | | LAB | | | | [place] [address];[place], [place] | | | | | | [address] | | | | + + + [...] | | | Fingerstick | performed at [facility];[address] | | LAB | | | | [place] [address] | | | | | | [address] | | | | + + + [...] EXTERNAL | | | | performed at [facility];888 | mmol/L | LAB | | | | [place] [address];[place] | | | | | | [address] | | | | + + + [...] | | | Fingerstick | performed at [facility];[address] | | LAB | | | | [place] | | | | | | [address] | | | | + + + [...] | | | Fingerstick | performed at [facility];[address] | | LAB | | | | [address];[place] | | | | | | [address] | | | | + + + [...] | | | Fingerstick | performed at [facility];[address] | | LAB | | | | [address];[place], [place] | | | | | | [address] | | | | + + + [...] | | | Fingerstick | performed at [facility] | | LAB | | | | [address];[place], [place] | | | | | | [address] | | | | + + + [...] | | | Fingerstick | performed at [facility];[address] | | LAB | | | | [place] | | | | | | [address] | | | | + + + [...] EXTERNAL | | | | performed at [facility], [address] | | LAB | | | | [address], | | | | | | [place] [address] | | | | + + + + + + | RED CELL | 3.07 (L)Comment: Testing | 4.20 - 5.70 | EXTERNAL | | | COUNT | performed at [facility], [address] | M/uL | LAB | | | | [address], | | | | | | [place] [address] | | | | + + + + + + | Hgb | 9.9 (L)Comment: Testing | 13.2 - 17.0 | EXTERNAL | | | | performed at [facility], [address] | g/dL | LAB | | | | [address], | | | | | | [place] [address] | | | | + + + + + + | Hematocrit, | 30.2 (L)Comment: Testing | 39.0 - 50.0 % | EXTERNAL | | | POC | performed at [facility], [address] | | LAB | | | | [address], | | | | | | [place] [address] | | | | + + + + + + | MCV | 98.4Comment: Testing | 80.0 - 100.0 fl | EXTERNAL | | | | performed at [facility], [address] | | LAB | | | | [address], | | | | | | [place] [address] | | | | + + + + + + | MCH | 32.3Comment: Testing | 27.0 - 34.0 pg | EXTERNAL | | | | performed at [facility], [address] | | LAB | | | | [address], | | | | | | [place] [address] | | | | + + + + + + | MCHC | 32.8Comment: Testing | 32.0 - 35.5 | EXTERNAL | | | | performed at [facility], [address] | g/dL | LAB | | | | [address], | | | | | | [place] [address] | | | | + + + + + + | RDW-CV | 58.2 (H)Comment: Testing | 37 - 53 fl | EXTERNAL | | | | performed at [facility], [address] | | LAB | | | | [address], | | | | | | [place] [address] | | | | + + + + + + | Platelet | 135 (L)Comment: Testing | 150 - 400 K/uL | EXTERNAL | | | Count | performed at [facility], [address] | | LAB | | | Plasma | [address], | | | | | | [place] [address] | | | | + + + + + + | MPV | 8.2Comment: Testing | fl | EXTERNAL | | | | performed at [facility], [address] | | LAB | | | | [address], | | | | | | [place] [address] | | | | + + + + + + | Differentia | MANUALComment: Testing | | EXTERNAL | | | l Type | performed at [facility], [address] | | LAB | | | | [address], | | | | | | [place] [address] | | | | + + + + + + | Segmented | 81Comment: Testing | % | EXTERNAL | | | Neutrophils | performed at [facility], [address] | | LAB | | | Manual | [address], | | | | | | [place] [address] | | | | + + + + + + | % Bands | 11Comment: Testing | % | EXTERNAL | | | | performed at [facility], [address] | | LAB | | | | [address], | | | | | | [place] [address] | | | | + + + + + + | % | 1Comment: Testing | % | EXTERNAL | | | Metamyelocy | performed at [facility], [address] | | LAB | | | tylor | [address], | | | | | | [place] [address] | | | | + + + + + + | Lymphocytes | 3Comment: Testing | % | EXTERNAL | | | Manual | performed at [facility], [address] | | LAB | | | | [address], | | | | | | [place] [address] | | | | + + + + + + | Monocytes | 4Comment: Testing | % | EXTERNAL | | | Manual | performed at [facility], [address] | | LAB | | | | [address], | | | | | | [place] [address] | | | | + + + + + + | Absolute | 15.8 (H)Comment: Testing | 1.9 - 7.4 K/uL | EXTERNAL | | | Neutrophils | performed at [facility], [address] | | LAB | | | | [address], | | | | | | [place] [address] | | | | + + + + + + | Bands | 2.2 (H)Comment: Testing | 0 - 0.2 K/uL | EXTERNAL | | | Manual | performed at [facility], [address] | | LAB | | | | [address], | | | | | | [place] [address] | | | | + + + + + + | Absolute | 0.2 (H)Comment: Testing | K/uL | EXTERNAL | | | Metamyelocy | performed at [facility], [address] | | LAB | | | tylor | [address], | | | | | | [place] [address] | | | | + + + + + + | Absolute | 0.6 (L)Comment: Testing | 1.0 - 3.9 K/uL | EXTERNAL | | | Lymphocytes | performed at [facility], [address] | | LAB | | | | [address], | | | | | | [place] [address] | | | | + + + + + + | Absolute | 0.8Comment: Testing | 0 - 0.8 K/uL | EXTERNAL | | | Monocytes | performed at [facility], [address] | | LAB | | | | [address], | | | | | | [place] [address] | | | | + + + + + + | RBC | 1+Comment: ANISONORMAL | | EXTERNAL | | | Morphology | PLT MORPHTesting | | LAB | | | | performed at [facility], [address] | | | | | | [address], | | | | | | [place] [address] | | | | | | | [...] EXTERNAL | | | | performed at [facility] | | LAB | | | | [address];[place], [place] | | | | | | [address] | | | | + + + [...] + + | Hemoglobin | 5.4Comment: The [place] | 4.0 - 6.0 % | EXTERNAL [...] | | | | | performed at [facility], [address] | | | | | | [address], | | | | | | [place] [address] | | | | + + + [...] | | | | | performed at [facility], [address] | | | | | | [facility], | | | | | | [place] [address] | | | | + + + [...] EXTERNAL | | | | performed at [facility];888 | mmol/L | LAB | | | | [place] [address];[place] | | | | | | [address] | | | | + + + + + + | K | 5.0 (H)Comment: Testing | 3.5 - 4.9 | EXTERNAL | | | | performed at [facility];888 | mmol/L | LAB | | | | [address];[place] | | | | | | [address] | | | | + + + + + + | Cl | 109Comment: Testing | 99 - 109 mmol/L | EXTERNAL | | | | performed at [facility];[address] | | LAB | | | | [address];[place] | | | | | | [address] | | | | + + + + + + | CO2 | 24Comment: Testing | 23 - 32 mmol/L | EXTERNAL | | | | performed at [facility];[address] | | LAB | | | | [address];[place] | | | | | | [address] | | | | + + + + + + | Anion Gap | 12Comment: Testing | 5 - 20 mmol/L | EXTERNAL | | | | performed at [facility];[address] | | LAB | | | | [address];[place] | | | | | | [address] | | | | + + + + + + | Glucose, | 147 (H)Comment: Testing | 65 - 99 mg/dL | EXTERNAL | | | Fasting | performed at [facility];[address] | | LAB | | | | [address];[place] | | | | | | [address] | | | | + + + + + + | BUN | 19Comment: Testing | 8 - 25 mg/dL | EXTERNAL | | | | performed at [facility];[address] | | LAB | | | | [address];[place] | | | | | | [address] | | | | + + + + + + | Creatinine | 1.00Comment: Testing | 0.70 - 1.30 | EXTERNAL | | | | performed at [facility];[address] | mg/dL | LAB | | | | [address];[place] | | | | | | [address] | | | | + + + + + + | BUN/Creatin | 19Comment: Testing | | EXTERNAL | | | ine Ratio | performed at [facility];[address] | | LAB | | | | [address];[place] | | | | | | [address] | | | | + + + + + + | Calcium | 8.3 (L)Comment: Testing | 8.5 - 10.2 | EXTERNAL | | | | performed at [facility];[address] | mg/dL | LAB | | | | [address];[place] | | | | | | [address] | | | | + + + [...] | | | | | | at [facility];[address];[place] [address] | | | | + + + [...] | | | Fingerstick | performed at [facility];[address] | | LAB | | | | [place] [address];[place] | | | | | | [address] | | | | + + + [...] | | | Fingerstick | performed at [facility];[address] | | LAB | | | | [address];[place] | | | | | | [address] | | | | + + + [...] EXTERNAL | | | | performed at [facility];888 | mmol/L | LAB | | | | [place] | | | | | | [address] | | | | + + + [...] | | | Fingerstick | performed at [facility];[address] | | LAB | | | | [address];[place] | | | | | | [address] | | | | + + + [...] 1.0 cm in aggregate. | | | [employer] sections are submitted in cassette A1 and [...] preparation was performed by | | | [facility], [address], | | | [place] [address] (Cooker Chip: David Dawson M.D.; | | | [facility]#: [id number]). Diagnostician: Ayad Briscoe MD Pathologist | | [...] | | | Fingerstick | performed at [facility];8 | | LAB | | | | [place] [address];[place] | | | | | | [address] | | | | + + + [...] + + | Historically converted procedure from [facility] environment | EXTERNAL LAB | + [...] are seen. | | | A left-sided Rosamond-Christiana catheter sheath is seen with the Rosamond Ann Marie | | | retracted into [...] Transvenous pacing presents are seen. A left-sided Rosamond-Christiana | | catheter sheath is seen with the Rosamond [place] retracted into the sheath. The [...] Transvenous pacing presents are seen. A left-sided Rosamond-Christiana catheter sheath is se en with the Rosamond Ann Marie retracted into the sheath. The [...] | | | Patient | performed at [facility];[address] | | LAB | | | | [address];[place], [place] | | | | | | [address] | | | | + + + [...] | | | | | performed at [facility] | | | | | | [address];[place], [place] | | | | | | [address] | | | | + + + [...] EXTERNAL | | | | performed at [facility];[address] | | LAB | | | | [place] [address];[place] | | | | | | [address] | | | | + + + [...] EXTERNAL | | | | performed at [facility];[address] | | LAB | | | | [address];[place] | | | | | | [address] | | | | + + + + + + | RED CELL | 3.19 (L)Comment: Testing | 4.20 - 5.70 | EXTERNAL | | | COUNT | performed at [facility];888 | M/uL | LAB | | | | [address];[place] | | | | | | [address] | | | | + + + + + + | Hgb | 10.3 (L)Comment: Testing | 13.2 - 17.0 | EXTERNAL | | | | performed at [facility];888 | g/dL | LAB | | | | [address];[place] | | | | | | [address] | | | | + + + + + + | Hematocrit, | 30.9 (L)Comment: Testing | 39.0 - 50.0 % | EXTERNAL | | | POC | performed at [facility];[address] | | LAB | | | | [address];[place] | | | | | | [address] | | | | + + + + + + | MCV | 96.9Comment: Testing | 80.0 - 100.0 fl | EXTERNAL | | | | performed at [facility];[address] | | LAB | | | | [address];[place] | | | | | | [address] | | | | + + + + + + | MCH | 32.4Comment: Testing | 27.0 - 34.0 pg | EXTERNAL | | | | performed at [facility];[address] | | LAB | | | | [address];[place] | | | | | | [address] | | | | + + + + + + | MCHC | 33.4Comment: Testing | 32.0 - 35.5 | EXTERNAL | | | | performed at [facility];888 | g/dL | LAB | | | | [address];[place] | | | | | | [address] | | | | + + + + + + | RDW-CV | 56.9 (H)Comment: Testing | 37 - 53 fl | EXTERNAL | | | | performed at [facility];[address] | | LAB | | | | [address];[place] | | | | | | [address] | | | | + + + + + + | Platelet | 141 (L)Comment: Testing | 150 - 400 K/uL | EXTERNAL | | | Count | performed at [facility];[address] | | LAB | | | Plasma | [address];[place] | | | | | | [address] | | | | + + + + + + | MPV | 7.8Comment: Testing | fl | EXTERNAL | | | | performed at [facility];[address] | | LAB | | | | [address];[place] | | | | | | [address] | | | | + + + + + + | Differentia | AUTOMATEDComment: | | EXTERNAL | | | l Type | Testing performed at | | LAB | | | | [facility];[address];[place] [address] | | | | + + + + + + | % Segmented | 87.9Comment: Testing | % | EXTERNAL | | | | performed at [facility];[address] | | LAB | | | Neutrophils | [address];[place] | | | | | | [address] | | | | + + + + + + | % | 7.0Comment: Testing | % | EXTERNAL | | | Lymphocytes | performed at [facility];[address] | | LAB | | | | [address];[place] | | | | | | [address] | | | | + + + + + + | % Monocytes | 3.8Comment: Testing | % | EXTERNAL | | | | performed at [facility];[address] | | LAB | | | | [address];[place] | | | | | | [address] | | | | + + + + + + | % | 0.8Comment: Testing | % | EXTERNAL | | | Eosinophils | performed at [facility];[address] | | LAB | | | | [address];[place] | | | | | | [address] | | | | + + + + + + | % Basophils | 0.5Comment: Testing | % | EXTERNAL | | | | performed at [facility];[address] | | LAB | | | | [address];[place] | | | | | | [address] | | | | + + + + + + | Absolute | 19.5 (H)Comment: Testing | 1.9 - 7.4 K/uL | EXTERNAL | | | Segmented | performed at [facility];[address] | | LAB | | | Neutrophils | [address];[place] | | | | | | [address] | | | | + + + + + + | Absolute | 1.5Comment: Testing | 1.0 - 3.9 K/uL | EXTERNAL | | | Lymphocytes | performed at [facility];[address] | | LAB | | | | [address];[place] | | | | | | [address] | | | | + + + + + + | Absolute | 0.8Comment: Testing | 0 - 0.8 K/uL | EXTERNAL | | | Monocytes | performed at [facility];[address] | | LAB | | | | [address];[place] | | | | | | [address] | | | | + + + + + + | Absolute | 0.2Comment: Testing | 0 - 0.5 K/uL | EXTERNAL | | | Eosinophils | performed at [facility];[address] | | LAB | | | | [address];[place] | | | | | | [address] | | | | + + + + + + | Absolute | 0.1Comment: Testing | 0 - 0.1 K/uL | EXTERNAL | | | Basophils | performed at [facility];[address] | | LAB | | | | [address];[place] | | | | | | [address] | | | | + + + + + + | Differentia | SLIDE SCANNED, AGREES | | EXTERNAL | | | l Comments | WITH AUTOMATED | | LAB | | | | RESULTS.Comment: Testing | | | | | | performed at [facility];[address] | | | | | | [address];[place] | | | | | | [address] | | | | + + + [...] | | | Fingerstick | performed at [facility];[address] | | LAB | | | | [address];[place] | | | | | | [address] | | | | + + + [...] EXTERNAL | | | | performed at [facility];[address] | | LAB | | | | [address];[place], [place] | | | | | | [address] | | | | + + + [...] EXTERNAL | | | | performed at [facility];[address] | mmol/L | LAB | | | | [address];[place] | | | | | | [address] | | | | + + + + + + | K | 4.8Comment: Testing | 3.5 - 4.9 | EXTERNAL | | | | performed at [facility];[address] | mmol/L | LAB | | | | [address];[place] | | | | | | [address] | | | | + + + + + + | Cl | 108Comment: Testing | 99 - 109 mmol/L | EXTERNAL | | | | performed at [facility];[address] | | LAB | | | | [address];[place] | | | | | | [address] | | | | + + + + + + | CO2 | 24Comment: Testing | 23 - 32 mmol/L | EXTERNAL | | | | performed at [facility];[address] | | LAB | | | | [address];[place] | | | | | | [address] | | | | + + + + + + | Anion Gap | 14Comment: Testing | 5 - 20 mmol/L | EXTERNAL | | | | performed at [facility];[address] | | LAB | | | | [address];[place] | | | | | | [address] | | | | + + + + + + | Glucose, | 129 (H)Comment: Testing | 65 - 99 mg/dL | EXTERNAL | | | Fasting | performed at [facility];[address] | | LAB | | | | [address];[place] | | | | | | [address] | | | | + + + + + + | BUN | 17Comment: Testing | 8 - 25 mg/dL | EXTERNAL | | | | performed at [facility];[address] | | LAB | | | | [address];[place] | | | | | | [address] | | | | + + + + + + | Creatinine | 0.94Comment: Testing | 0.70 - 1.30 | EXTERNAL | | | | performed at [facility];888 | mg/dL | LAB | | | | [address];[place] | | | | | | [address] | | | | + + + + + + | BUN/Creatin | 19Comment: Testing | | EXTERNAL | | | ine Ratio | performed at [facility];[address] | | LAB | | | | [address];[place] | | | | | | [address] | | | | + + + + + + | Calcium | 8.3 (L)Comment: Testing | 8.5 - 10.2 | EXTERNAL | | | | performed at [facility];888 | mg/dL | LAB | | | | [address];[place] | | | | | | [address] | | | | + + + [...] | | | | | | at [facility];[address] [place] [address] | | | | | | [facility];[place] [address] | | | | + + + [...] | | | (Calc) | performed at [facility];888 | mmol/L | LAB | | | | [address];[place] | | | | | | [address] | | | | + + + + + + | pH, Bld | 7.331Comment: Testing | 7.300 - 7.450 | EXTERNAL | | | | performed at [facility];[address] | | LAB | | | | [address];[place] | | | | | | [address] | | | | + + + [...] This is a non-reportable procedure without a petrophysicist report and | | | is used for image storage only. Please review the operative | | | procedure notes for details on the procedure. | | + + + + + | Procedure Note | + + | Raudel Aguillon - 01/18/2019 9:23 PM PDT This is a non-reportable procedure | | without a petrophysicist report and isused for image storage only. [...] EXTERNAL | | | | performed at [facility];[address] | | LAB | | | | [address];[place] | | | | | | [address] | | | | + + + + + + | PCO2 ART | 40Comment: Testing | 35 - 45 mmHg | EXTERNAL | | | | performed at [facility];[address] | | LAB | | | | [address];[place] | | | | | | [address] | | | | + + + + + + | PO2 ART | 268 (H)Comment: Testing | 80 - 105 mmHg | EXTERNAL | | | | performed at [facility];[address] | | LAB | | | | [address];[place] | | | | | | [address] | | | | + + + + + + | HCO3 ART | 27 (H)Comment: Testing | 22 - 26 mmol/L | EXTERNAL | | | | performed at [facility];[address] | | LAB | | | | [address];[place] | | | | | | [address] | | | | + + + + + + | POC | 28 (H)Comment: Testing | 23 - 27 mEq/L | EXTERNAL | | | APPEARANCE | performed at [facility];[address] | | LAB | | | UA | [address];[place] | | | | | | [address] | | | | + + + + + + | Base | 2Comment: Testing | 0 - 3 mEq/L | EXTERNAL | | | Excess, | performed at [facility];[address] | | LAB | | | Arterial | [address];[place] | | | | | | [address] | | | | + + + + + + | O2 SAT ART | 100 (H)Comment: Testing | 95 - 98 % | EXTERNAL | | | | performed at [facility];[address] | | LAB | | | | [address];[place] | | | | | | [address] | | | | + + + + + + | Sodium, POC | 136Comment: Testing | 135 - 145 mEq/L | EXTERNAL | | | | performed at [facility];[address] | | LAB | | | | [address];[place] | | | | | | [address] | | | | + + + + + + | Potassium, | 5.0Comment: Testing | 3.5 - 5.0 mEq/L | EXTERNAL | | | POC | performed at [facility];[address] | | LAB | | | | [address];[place] | | | | | | [address] | | | | + + + + + + | Ionized | 1.23Comment: Testing | 1.12 - 1.32 | EXTERNAL | | | Calcium, | performed at [facility];888 | mmol/L | LAB | | | POC | [address];[place] | | | | | | [address] | | | | + + + + + + | Glucose, | 112 (H)Comment: Testing | 65 - 99 mg/dL | EXTERNAL | | | POC | performed at [facility];[address] | | LAB | | | | [address];[place] | | | | | | [address] | | | | + + + + + + | Hematocrit, | 25 (L)Comment: Testing | 40.0 - 50.0 % | EXTERNAL | | | POC | performed at [facility];[address] | | LAB | | | | [address];[place] | | | | | | [address] | | | | + + + + + + | Hemoglobin, | 8.5 (L)Comment: Testing | 13.7 - 16.7 | EXTERNAL | | | POC | performed at [facility];888 | g/dL | LAB | | | | [address];[place] | | | | | | [address] | | | | + + + [...] | | LAB | | | | [facility];[address] | | | | | [address];[place] [address] | | | | + + + + + + | PCO2 ART | 38Comment: Testing | 35 - 45 mmHg | EXTERNAL | | | | performed at [facility];[address] | | LAB | | | | [address];[place] | | | | | | [address] | | | | + + + + + + | PO2 ART | 196 (H)Comment: Testing | 80 - 105 mmHg | EXTERNAL | | | | performed at [facility];[address] | | LAB | | | | [address];[place] | | | | | | [address] | | | | + + + + + + | HCO3 ART | 28 (H)Comment: Testing | 22 - 26 mmol/L | EXTERNAL | | | | performed at [facility];[address] | | LAB | | | | [address];[place] | | | | | | [address] | | | | + + + + + + | POC | 29 (H)Comment: Testing | 23 - 27 mEq/L | EXTERNAL | | | APPEARANCE | performed at [facility];[address] | | LAB | | | UA | [address];[place] | | | | | | [address] | | | | + + + + + + | Base | 4 (H)Comment: Testing | 0 - 3 mEq/L | EXTERNAL | | | Excess, | performed at [facility];[address] | | LAB | | | Arterial | [address];[place] | | | | | | [address] | | | | + + + + + + | O2 SAT ART | 100 (H)Comment: Testing | 95 - 98 % | EXTERNAL | | | | performed at [facility];[address] | | LAB | | | | [address];[place] | | | | | | [address] | | | | + + + + + + | Sodium, POC | 137Comment: Testing | 135 - 145 mEq/L | EXTERNAL | | | | performed at [facility];[address] | | LAB | | | | [address];[place] | | | | | | [address] | | | | + + + + + + | Potassium, | 5.8 (H)Comment: Testing | 3.5 - 5.0 mEq/L | EXTERNAL | | | POC | performed at [facility];[address] | | LAB | | | | [address];[place] | | | | | | [address] | | | | + + + + + + | Ionized | 1.08 (L)Comment: Testing | 1.12 - 1.32 | EXTERNAL | | | Calcium, | performed at [facility];888 | mmol/L | LAB | | | POC | [address];[place] | | | | | | [address] | | | | + + + + + + | Glucose, | 100 (H)Comment: Testing | 65 - 99 mg/dL | EXTERNAL | | | POC | performed at [facility];[address] | | LAB | | | | [address];[place] | | | | | | [address] | | | | + + + + + + | Hematocrit, | 25 (L)Comment: Testing | 40.0 - 50.0 % | EXTERNAL | | | POC | performed at [facility];[address] | | LAB | | | | [address];[place] | | | | | | [address] | | | | + + + + + + | Hemoglobin, | 8.5 (L)Comment: Testing | 13.7 - 16.7 | EXTERNAL | | | POC | performed at [facility];888 | g/dL | LAB | | | | [address];[place], [place] | | | | | | [address] | | | | + + + [...] EXTERNAL | | | | performed at [facility];[address] | | LAB | | | | [address];[place] | | | | | | [address] | | | | + + + + + + | PCO2 ART | 43Comment: Testing | 35 - 45 mmHg | EXTERNAL | | | | performed at [facility];[address] | | LAB | | | | [address];[place] | | | | | | [address] | | | | + + + + + + | PO2 ART | 264 (H)Comment: Testing | 80 - 105 mmHg | EXTERNAL | | | | performed at [facility];[address] | | LAB | | | | [address];[place] | | | | | | [address] | | | | + + + + + + | HCO3 ART | 29 (H)Comment: Testing | 22 - 26 mmol/L | EXTERNAL | | | | performed at [facility];[address] | | LAB | | | | [address];[place] | | | | | | [address] | | | | + + + + + + | POC | 30 (H)Comment: Testing | 23 - 27 mEq/L | EXTERNAL | | | APPEARANCE | performed at [facility];[address] | | LAB | | | UA | [address];[place] | | | | | | [address] | | | | + + + + + + | Base | 4 (H)Comment: Testing | 0 - 3 mEq/L | EXTERNAL | | | Excess, | performed at [facility];[address] | | LAB | | | Arterial | [address];[place] | | | | | | [address] | | | | + + + + + + | O2 SAT ART | 100 (H)Comment: Testing | 95 - 98 % | EXTERNAL | | | | performed at [facility];[address] | | LAB | | | | [address];[place] | | | | | | [address] | | | | + + + + + + | Sodium, POC | 137Comment: Testing | 135 - 145 mEq/L | EXTERNAL | | | | performed at [facility];[address] | | LAB | | | | [address];[place] | | | | | | [address] | | | | + + + + + + | Potassium, | 4.7Comment: Testing | 3.5 - 5.0 mEq/L | EXTERNAL | | | POC | performed at [facility];[address] | | LAB | | | | [address];[place] | | | | | | [address] | | | | + + + + + + | Ionized | 1.09 (L)Comment: Testing | 1.12 - 1.32 | EXTERNAL | | | Calcium, | performed at [facility];888 | mmol/L | LAB | | | POC | [address];[place] | | | | | | [address] | | | | + + + + + + | Glucose, | 96Comment: Testing | 65 - 99 mg/dL | EXTERNAL | | | POC | performed at [facility];[address] | | LAB | | | | [address];[place] | | | | | | [address] | | | | + + + + + + | Hematocrit, | 26 (L)Comment: Testing | 40.0 - 50.0 % | EXTERNAL | | | POC | performed at [facility];[address] | | LAB | | | | [address];[place] | | | | | | [address] | | | | + + + + + + | Hemoglobin, | 8.8 (L)Comment: Testing | 13.7 - 16.7 | EXTERNAL | | | POC | performed at [facility];888 | g/dL | LAB | | | | [address];[place] | | | | | | [address] | | | | + + + [...] EXTERNAL | | | | performed at [facility];[address] | | LAB | | | | [address];[place] | | | | | | [address] | | | | + + + + + + | PCO2 ART | 50 (H)Comment: Testing | 35 - 45 mmHg | EXTERNAL | | | | performed at [facility];[address] | | LAB | | | | [address];[place] | | | | | | [address] | | | | + + + + + + | PO2 ART | 303 (H)Comment: Testing | 80 - 105 mmHg | EXTERNAL | | | | performed at [facility];[address] | | LAB | | | | [address];[place] | | | | | | [address] | | | | + + + + + + | HCO3 ART | 29 (H)Comment: Testing | 22 - 26 mmol/L | EXTERNAL | | | | performed at [facility];[address] | | LAB | | | | [address];[place] | | | | | | [address] | | | | + + + + + + | POC | 31 (H)Comment: Testing | 23 - 27 mEq/L | EXTERNAL | | | APPEARANCE | performed at [facility];[address] | | LAB | | | UA | [address];[place] | | | | | | [address] | | | | + + + + + + | Base | 4 (H)Comment: Testing | 0 - 3 mEq/L | EXTERNAL | | | Excess, | performed at [facility];[address] | | LAB | | | Arterial | [address];[place] | | | | | | [address] | | | | + + + + + + | O2 SAT ART | 100 (H)Comment: Testing | 95 - 98 % | EXTERNAL | | | | performed at [facility];[address] | | LAB | | | | [address];[place] | | | | | | [address] | | | | + + + + + + | Sodium, POC | 135Comment: Testing | 135 - 145 mEq/L | EXTERNAL | | | | performed at [facility];[address] | | LAB | | | | [address];[place] | | | | | | [address] | | | | + + + + + + | Potassium, | 6.4 (HH)Comment: Testing | 3.5 - 5.0 mEq/L | EXTERNAL | | | POC | performed at [facility];[address] | | LAB | | | | [address];[place] | | | | | | [address] | | | | + + + + + + | Ionized | 1.07 (L)Comment: Testing | 1.12 - 1.32 | EXTERNAL | | | Calcium, | performed at [facility];888 | mmol/L | LAB | | | POC | [address];[place] | | | | | | [address] | | | | + + + + + + | Glucose, | 101 (H)Comment: Testing | 65 - 99 mg/dL | EXTERNAL | | | POC | performed at [facility];[address] | | LAB | | | | [address];[place] | | | | | | [address] | | | | + + + + + + | Hematocrit, | 24 (L)Comment: Testing | 40.0 - 50.0 % | EXTERNAL | | | POC | performed at [facility];[address] | | LAB | | | | [address];[place] | | | | | | [address] | | | | + + + + + + | Hemoglobin, | 8.2 (L)Comment: Testing | 13.7 - 16.7 | EXTERNAL | | | POC | performed at [facility];888 | g/dL | LAB | | | | [address];[place] | | | | | | [address] | | | | + + + [...] | | LAB | | | | [facility];[address];[place] [address] | | | | + + + + + + | PCO2 ART | 66 (HH)Comment: Testing | 35 - 45 mmHg | EXTERNAL | | | | performed at [facility];[address] | | LAB | | | | [address];[place] | | | | | | [address] | | | | + + + + + + | PO2 ART | 405 (H)Comment: Testing | 80 - 105 mmHg | EXTERNAL | | | | performed at [facility];[address] | | LAB | | | | [address];[place] | | | | | | [address] | | | | + + + + + + | HCO3 ART | 29 (H)Comment: Testing | 22 - 26 mmol/L | EXTERNAL | | | | performed at [facility];[address] | | LAB | | | | [address];[place] | | | | | | [address] | | | | + + + + + + | POC | 31 (H)Comment: Testing | 23 - 27 mEq/L | EXTERNAL | | | APPEARANCE | performed at [facility];[address] | | LAB | | | UA | [address];[place] | | | | | | [address] | | | | + + + + + + | Base | 2Comment: Testing | 0 - 3 mEq/L | EXTERNAL | | | Excess, | performed at [facility];[address] | | LAB | | | Arterial | [address];[place] | | | | | | [address] | | | | + + + + + + | O2 SAT ART | 100 (H)Comment: Testing | 95 - 98 % | EXTERNAL | | | | performed at [facility];[address] | | LAB | | | | [address];[place] | | | | | | [address] | | | | + + + + + + | Sodium, POC | 135Comment: Testing | 135 - 145 mEq/L | EXTERNAL | | | | performed at [facility];[address] | | LAB | | | | [address];[place] | | | | | | [address] | | | | + + + + + + | Potassium, | 4.4Comment: Testing | 3.5 - 5.0 mEq/L | EXTERNAL | | | POC | performed at [facility];[address] | | LAB | | | | [address];[place] | | | | | | [address] | | | | + + + + + + | Ionized | 1.21Comment: Testing | 1.12 - 1.32 | EXTERNAL | | | Calcium, | performed at [facility];888 | mmol/L | LAB | | | POC | [address];[place] | | | | | | [address] | | | | + + + + + + | Glucose, | 107 (H)Comment: Testing | 65 - 99 mg/dL | EXTERNAL | | | POC | performed at [facility];[address] | | LAB | | | | [address];[place] | | | | | | [address] | | | | + + + + + + | Hematocrit, | 32 (L)Comment: Testing | 40.0 - 50.0 % | EXTERNAL | | | POC | performed at [facility];[address] | | LAB | | | | [address];[place] | | | | | | [address] | | | | + + + + + + | Hemoglobin, | 10.9 (L)Comment: Testing | 13.7 - 16.7 | EXTERNAL | | | POC | performed at [facility];888 | g/dL | LAB | | | | [address];[place] | | | | | | [address] | | | | + + + [...] EXTERNAL | | | | performed at [facility] | | LAB | | | | [address];[place], [place] | | | | | | [address] | | | | + + + + + + | PCO2 ART | 45Comment: Testing | 35 - 45 mmHg | EXTERNAL | | | | performed at [facility];[address] | | LAB | | | | [address];[place] | | | | | | [address] | | | | + + + + + + | PO2 ART | 288 (H)Comment: Testing | 80 - 105 mmHg | EXTERNAL | | | | performed at [facility];[address] | | LAB | | | | [address];[place] | | | | | | [address] | | | | + + + + + + | HCO3 ART | 28 (H)Comment: Testing | 22 - 26 mmol/L | EXTERNAL | | | | performed at [facility];[address] | | LAB | | | | [address];[place] | | | | | | [address] | | | | + + + + + + | POC | 30 (H)Comment: Testing | 23 - 27 mEq/L | EXTERNAL | | | APPEARANCE | performed at [facility];[address] | | LAB | | | UA | [address];[place] | | | | | | [address] | | | | + + + + + + | Base | 4 (H)Comment: Testing | 0 - 3 mEq/L | EXTERNAL | | | Excess, | performed at [facility];[address] | | LAB | | | Arterial | [address];[place] | | | | | | [address] | | | | + + + + + + | O2 SAT ART | 100 (H)Comment: Testing | 95 - 98 % | EXTERNAL | | | | performed at [facility];[address] | | LAB | | | | [address];[place] | | | | | | [address] | | | | + + + + + + | Sodium, POC | 138Comment: Testing | 135 - 145 mEq/L | EXTERNAL | | | | performed at [facility];[address] | | LAB | | | | [address];[place] | | | | | | [address] | | | | + + + + + + | Potassium, | 3.8Comment: Testing | 3.5 - 5.0 mEq/L | EXTERNAL | | | POC | performed at [facility];[address] | | LAB | | | | [address];[place] | | | | | | [address] | | | | + + + + + + | Ionized | 1.22Comment: Testing | 1.12 - 1.32 | EXTERNAL | | | Calcium, | performed at [facility];888 | mmol/L | LAB | | | POC | [address];[place] | | | | | | [address] | | | | + + + + + + | Glucose, | 88Comment: Testing | 65 - 99 mg/dL | EXTERNAL | | | POC | performed at [facility];[address] | | LAB | | | | [address];[place] | | | | | | [address] | | | | + + + + + + | Hematocrit, | 30 (L)Comment: Testing | 40.0 - 50.0 % | EXTERNAL | | | POC | performed at [facility];[address] | | LAB | | | | [address];[place] | | | | | | [address] | | | | + + + + + + | Hemoglobin, | 10.2 (L)Comment: Testing | 13.7 - 16.7 | EXTERNAL | | | POC | performed at [facility];888 | g/dL | LAB | | | | [address];[place] | | | | | | [address] | | | | + + + [...] | | | Fingerstick | performed at [facility];[address] | | LAB | | | | [address];[place] | | | | | | [address] | | | | + + + [...] | | | | | | by MEGAAN PEOPLES ([id number]) | | | | | | on 03/10/2014 3:10:16 PM | | | | + + + + + + + + | Specimen | + + | | + + + + + | Narrative | Performed At | + + + | Historically converted procedure from [facility] | EXTERNAL LAB | + + + [...] | | | Patient | performed at [facility];[address] | | LAB | | | | [address];[place] | | | | | | [address] | | | | + + + [...] | | | | | performed at [facility] | | | | | | [facility];[place], [place] | | | | | | [address] | | | | + + + [...] | | | Patient | performed at [facility];[address] | | LAB | | | | [address];[place] | | | | | | [address] | | | | + + + [...] Pal, Rad Conversion - 01/18/2019 9:23 PM [facility] DENISE STONE CHEST 2 VIEW FRONTAL | | AND SBYCCXR99/5/2014 6:17 PM History: 78 years. Male. Aortic [...] | | | Patient | performed at [facility];[address] | | LAB | | | | [address];[place], [place] | | | | | | [address] | | | | + + + [...] EXTERNAL LAB | | Testing performed at [facility];[address] [place] [address];[place] [address] MRSA PCR | | | NEGATIVE Testing performed at | | | [address];[place] [address] | | + + + + +---------+ [...] common femoral vein was cannulized with a 7-South African sheath and | | | the right common femoral artery was cannulized with a 6-South African | | | sheath. Over a guidewire a 5-South African FL-4 diagnostic catheter was | | | advanced to the ascending aorta and found to be too short. So it was | | | exchanged for a 5-South African FL-6 catheter that selectively engaged the | | | left main. Contrast was injected. A selective angiogram for the left | | | main, LAD, and left circumflex arteries was performed in different | | | views. Over a guidewire it was exchanged for a diagnostic 5-South African | | | FR-4 catheter selectively engaging the right coronary artery. | | | Contrast was injected. A selective angiogram for the right coronary | | | artery was performed in different views. Over a guidewire it was | | | exchanged for a 5-South African FR-4 diagnostic catheter that selectively | | | engaged the RCA. Contrast was injected. Selective angiogram for the | | | RCA was performed in different views. The catheter was removed. | | | Through the venous sheath, a Rosamond-Christiana catheter was advanced to the | | [...] success, and so it was exchanged for 5-South African | | | AL-1 diagnostic catheter with a fixed cord straight tip wire. I was | | | able to advance the AL-1 to the left ventricle, and the AL-1 was | | | exchanged over a 260 exchange wire to a 6-South African Alex catheter | | | that was advanced to the left ventricle. Gradient across the aortic | | | valve was measured and the gradient across the mitral valve was | | | measured with the wedge position. Then the Rosamond-Christiana catheter was | | | removed. The Satanta catheter was removed over the guidewire, and | | | both sheaths were removed. Manual pressure was held for 20 minutes | | | with good hemostasis. The patient was transferred to the recovery | | | [facility]. FINDINGS HEMODYNAMICS 1. Systemic | | | pressure 103/62. 2. Left ventricular end-diastolic pressure 21 mmHg. | | | 3. [id number]-hr-[id number] gradient across the aortic valve 46 mmHg. [...] | | | INDICATIONS | | Mr. Gacsa is a 78-year-old gentleman who was evaluated [...] vein was cannulized | | with a 7-South African sheath and the right common femoral artery was cannulized | | with a 6-South African sheath. Over a guidewire a 5-South African FL-4 diagnostic | | catheter was advanced to the ascending aorta and found to be too short. So | | it was exchanged for a 5-South African FL-6 catheter that selectively engaged the | | left main. Contrast was injected. A selective angiogram for the left main, | | LAD, and left circumflex arteries was performed in different views. Over a | | guidewire it was exchanged for a diagnostic 5-South African FR-4 catheter | | selectively engaging the right coronary artery. Contrast was injected. A | | selective angiogram for the right coronary artery was performed in | | different views. Over a guidewire it was exchanged for a 5-South African FR-4 | | diagnostic catheter that selectively engaged the RCA. Contrast was | | injected. Selective angiogram for the RCA was performed in different | | views. | | | | The catheter was removed. | | | | Through the venous sheath, a Rosamond-Christiana catheter was advanced to the right | [...] success, and so it was exchanged for 5-South African AL-1 diagnostic catheter | | with a fixed cord straight tip wire. I was able to advance the AL-1 to the | | left ventricle, and the AL-1 was exchanged over a 260 exchange wire to a | | 6-South African Satanta catheter that was advanced to the left ventricle. | | Gradient across the aortic valve was measured and the gradient across the | | mitral valve was measured with the wedge position. Then the Rosamond-Christiana | | catheter was removed. The Satanta catheter was removed over the | | [...] end-diastolic pressure 21 mmHg. | | 3. Qnuy-fq-lhvy gradient across the aortic valve 46 mmHg. [...] EXTERNAL | | | Patient | NURSING [id number],FRANSISCA | | LAB | | | | B AT 0235 BY [facility] BACK | | | | | | RESULTS VERIFIEDTesting | | | | | | performed at [facility];[id number] | | | | | | [address];[place] | | | | | | [address] | | | | + + + [...] | | | | | performed at [facility];[id number] | | | | | | [address] [facility];[place], [place] | | | | | | [address] | | | | + + + [...] | Patient | TO [facility] AT | | LAB | | | | [phone] BY [employer] BACK | | | | | | RESULTS VERIFIEDTesting | | | | | | performed at [facility];[id number] | | | [address];[place], [place] | | | | | | [address] | | | | + + + [...] EXTERNAL | | | | performed [facility] [facility] [place];888 | | LAB | | | | [address];[place] | | | | | | [address] | | | | + + + + + + | RED CELL | 3.52 (L)Comment: Testing | 4.20 - 5.70 | EXTERNAL | | | COUNT | performed at [facility];888 | M/uL | LAB | | | | [address];[place] | | | | | | [address] | | | | + + + + + + | Hgb | 11.4 (L)Comment: Testing | 13.2 - 17.0 | EXTERNAL | | | | performed at [facility];888 | g/dL | LAB | | | | [address];[place] | | | | | | [address] | | | | + + + + + + | Hematocrit, | 34.1 (L)Comment: Testing | 39.0 - 50.0 % | EXTERNAL | | | POC | performed at [facility];888 | | LAB | | | | [address];[place] | | | | | | [address] | | | | + + + + + + | MCV | 96.7Comment: Testing | 80.0 - 100.0 fl | EXTERNAL | | | | performed at [facility];888 | | LAB | | | | [address];[place] | | | | | | [address] | | | | + + + + + + | MCH | 32.2Comment: Testing | 27.0 - 34.0 pg | EXTERNAL | | | | performed at [facility];888 | | LAB | | | | [address];[place] | | | | | | [address] | | | | + + + + + + | MCHC | 33.3Comment: Testing | 32.0 - 35.5 | EXTERNAL | | | | performed at [facility];888 | g/dL | LAB | | | | [address];[place] | | | | | | [address] | | | | + + + + + + | RDW-CV | 56.4 (H)Comment: Testing | 37 - 53 fl | EXTERNAL | | | | performed at [facility];888 | | LAB | | | | [address];[place] | | | | | | [address] | | | | + + + + + + | Platelet | 178Comment: Testing | 150 - 400 K/uL | EXTERNAL | | | Count | performed at [facility];888 | | LAB | | | Plasma | [address];[place] | | | | | | [address] | | | | + + + + + + | MPV | 8.1Comment: Testing | fl | EXTERNAL | | | | performed at [facility];888 | | LAB | | | | [address];[place] | | | | | | [address] | | | | + + + [...] | | | Patient | performed at [facility];888 | | LAB | | | | [address];[place], [place] | | | | | | [address] | | | | + + + [...] | | | | | performed at [facility];888 | | | | | | [facility];[place], [place] | | | | | | [address] | | | | + + + [...] | | | | | performed at [facility] | | | | | | [facility];[place], [place] | | | | | | [address] | | | | + + + [...] EXTERNAL | | | | performed at [facility], [address] | | LAB | | | | [address], | | | | | | [place] [address] | | | | + + + + + + | RED CELL | 3.27 (L)Comment: Testing | 4.20 - 5.70 | EXTERNAL | | | COUNT | performed at [facility], [address] | M/uL | LAB | | | | [address], | | | | | | [place] [address] | | | | + + + + + + | Hgb | 10.4 (L)Comment: Testing | 13.2 - 17.0 | EXTERNAL | | | | performed at [facility], [address] | g/dL | LAB | | | | [address], | | | | | | [place] [address] | | | | + + + + + + | Hematocrit, | 32.2 (L)Comment: Testing | 39.0 - 50.0 % | EXTERNAL | | | POC | performed at [facility], [address] | | LAB | | | | [address], | | | | | | [place] [address] | | | | + + + + + + | MCV | 98.6Comment: Testing | 80.0 - 100.0 fl | EXTERNAL | | | | performed at [facility], [address] | | LAB | | | | [address], | | | | | | [place] [address] | | | | + + + + + + | MCH | 31.9Comment: Testing | 27.0 - 34.0 pg | EXTERNAL | | | | performed at [facility], [address] | | LAB | | | | [address], | | | | | | [place] [address] | | | | + + + + + + | MCHC | 32.4Comment: Testing | 32.0 - 35.5 | EXTERNAL | | | | performed at [facility], [address] | g/dL | LAB | | | | [address], | | | | | | [place] [address] | | | | + + + + + + | RDW-CV | 56.9 (H)Comment: Testing | 37 - 53 fl | EXTERNAL | | | | performed at [facility], [address] | | LAB | | | | [address], | | | | | | [place] [address] | | | | + + + + + + | Platelet | 168Comment: Testing | 150 - 400 K/uL | EXTERNAL | | | Count | performed at [facility], [address] | | LAB | | | Plasma | [address], | | | | | | [place] [address] | | | | + + + + + + | MPV | 8.7Comment: Testing | fl | EXTERNAL | | | | performed at [facility], [address] | | LAB | | | | [address], | | | | | | [place] [address] | | | | + + + + + + | Differentia | AUTOMATEDComment: | | EXTERNAL | | | l Type | Testing performed at | | LAB | | | | [facility], [address] | | | | | | [place] | | | | | | [address] | | | | + + + + + + | % Segmented | 81.1Comment: Testing | % | EXTERNAL | | | | performed at [facility], [address] | | LAB | | | Neutrophils | [address], | | | | | | [place] [address] | | | | + + + + + + | % | 8.6Comment: Testing | % | EXTERNAL | | | Lymphocytes | performed at [facility], [address] | | LAB | | | | [address], | | | | | | [place] [address] | | | | + + + + + + | % Monocytes | 7.2Comment: Testing | % | EXTERNAL | | | | performed at [facility], [address] | | LAB | | | | [address], | | | | | | [place] [address] | | | | + + + + + + | % | 2.2Comment: Testing | % | EXTERNAL | | | Eosinophils | performed at [facility], [address] | | LAB | | | | [address], | | | | | | [place] [address] | | | | + + + + + + | % Basophils | 0.9Comment: Testing | % | EXTERNAL | | | | performed at [facility], [address] | | LAB | | | | [address], | | | | | | [place] [address] | | | | + + + + + + | Absolute | 6.5Comment: Testing | 1.9 - 7.4 K/uL | EXTERNAL | | | Segmented | performed at [facility], [address] | | LAB | | | Neutrophils | [address], | | | | | | [place] [address] | | | | + + + + + + | Absolute | 0.7 (L)Comment: Testing | 1.0 - 3.9 K/uL | EXTERNAL | | | Lymphocytes | performed at [facility], [address] | | LAB | | | | [address], | | | | | | [place] [address] | | | | + + + + + + | Absolute | 0.6Comment: Testing | 0 - 0.8 K/uL | EXTERNAL | | | Monocytes | performed at [facility], [address] | | LAB | | | | [address], | | | | | | [place] [address] | | | | + + + + + + | Absolute | 0.2Comment: Testing | 0 - 0.5 K/uL | EXTERNAL | | | Eosinophils | performed at [facility], [address] | | LAB | | | | [address], | | | | | | [place] [address] | | | | + + + + + + | Absolute | 0.1Comment: Testing | 0 - 0.1 K/uL | EXTERNAL | | | Basophils | performed at [facility], [address] | | LAB | | | | [address], | | | | | | [place] [address] | | | | + + + [...] [address]vd, | | | | | | [place] [address] | | | | + + + + + + | K | 4.2Comment: Testing | 3.5 - 4.9 | EXTERNAL | | | | performed at [facility], [address] | mmol/L | LAB | | | | [address], | | | | | | [place] [address] | | | | + + + + + + | Cl | 100Comment: Testing | 99 - 109 mmol/L | EXTERNAL | | | | performed at [facility], [address] | | LAB | | | | [address], | | | | | | [place] [address] | | | | + + + + + + | CO2 | 29Comment: Testing | 23 - 32 mmol/L | EXTERNAL | | | | performed at [facility], [address] | | LAB | | | | [address], | | | | | | [place] [address] | | | | + + + + + + | Anion Gap | 9Comment: Testing | 5 - 20 mmol/L | EXTERNAL | | | | performed at [facility], [address] | | LAB | | | | [address], | | | | | | [place] [address] | | | | + + + + + + | Glucose, | 133 (H)Comment: Testing | 65 - 99 mg/dL | EXTERNAL | | | Fasting | performed at [facility], [address] | | LAB | | | | [address], | | | | | | [place] [address] | | | | + + + + + + | BUN | 31 (H)Comment: Testing | 8 - 25 mg/dL | EXTERNAL | | | | performed at [facility], [address] | | LAB | | | | [address], | | | | | | [place] [address] | | | | + + + + + + | Creatinine | 1.28Comment: Testing | 0.70 - 1.30 | EXTERNAL | | | | performed at [facility], [address] | mg/dL | LAB | | | | [address], | | | | | | [place] [address] | | | | + + + + + + | BUN/Creatin | 24Comment: Testing | | EXTERNAL | | | ine Ratio | performed at [facility], [address] | | LAB | | | | [address], | | | | | | [place] [address] | | | | + + + + + + | Calcium | 9.1Comment: Testing | 8.5 - 10.2 | EXTERNAL | | | | performed at [facility], [address] | mg/dL | LAB | | | | [address], | | | | | | [place] [address] | | | | + + + + + + | Protein, | 6.4Comment: Testing | 6.3 - 8.2 g/dL | EXTERNAL | | | Total | performed at [facility], [address] | | LAB | | | | [address], | | | | | | [place] [address] | | | | + + + + + + | Albumin | 3.6Comment: Testing | 3.3 - 4.8 g/dL | EXTERNAL | | | | performed at [facility], [address] | | LAB | | | | [address], | | | | | | [place] [address] | | | | + + + + + + | Globulin | 2.8Comment: Testing | 1.3 - 4.9 g/dL | EXTERNAL | | | | performed at [facility], [address] | | LAB | | | | [address], | | | | | | [place] [address] | | | | + + + + + + | A/G Ratio | 1.3Comment: Testing | 1.0 - 2.4 | EXTERNAL | | | | performed at [facility], [address] | | LAB | | | | [address], | | | | | | [place], [place] [address] | | | | + + + + + + | Bilirubin | 1.3Comment: Testing | 0.1 - 1.5 mg/dL | EXTERNAL | | | Total | performed at [facility], [address] | | LAB | | | | [address], | | | | | | [place] [address] | | | | + + + + + + | ALP, | 61Comment: Testing | 35 - 115 U/L | EXTERNAL | | | External | performed at [facility], [address] | | LAB | | | | [address], | | | | | | [place] [address] | | | | + + + + + + | AST | 26Comment: Testing | 10 - 45 U/L | EXTERNAL | | | | performed at [facility], [address] | | LAB | | | | [address], | | | | | | [place] [address] | | | | + + + + + + | ALT | 15Comment: Testing | 10 - 65 U/L | EXTERNAL | | | | performed at [facility], [address] | | LAB | | | | [address] [facility], | | | | | | [place] [address] | | | | + + + [...] | | | | | | at [facility], [address] | | | | | | [address], | | | | | | [place] [address] | | | | + + + [...]
--- OUTSIDE RECORDS SUMMARY | ~2019-06-03 | XMS | Encounter Summary ---
Demographics + + + | Address | [address] | | | [place] [address] | + + + | Home Phone [...] | | | | [place], [place] [address] | | + + + + + | Juana Gasca | ECON | [address] | | | | | [place] | | | | | [address] | | + + + + + | [place] | ECON | Unknown | | + + + + + Care Team Providers + +------+ + | Care Gold Buyer Name | Role | Phone | + +------+ + | Timo Lorenzana | PCP | | | MD | | | + +------+ + Encounter Details +--------+ + + + + | Date | Type | Department | Care Team | Description | +--------+ + + + + | 04/03/ | Orders Only | [facility] | Conversion | | | 2013 | | CARDIOLOGY [place] | Transaction, | | | | | [address] | Provider Unknown | | | | | [place], [place] | [phone] | | | | | [address] | | | | | | [phone] | | | +--------+ + + + [...] | | | | | [place] | | | | | | [address] | | | | | | | [...]
--- OUTSIDE RECORDS SUMMARY | ~2019-06-03 | XMS | Encounter Summary ---
Demographics + + + | Address | [address] | | | [place] [address] | + + + | Home Phone [...] | | | | [place], [place] [address] | | + + + + + | Juana Gasca | ECON | [address] | | | | | [place] | | | | | [address] | | + + + + + | [place] Gasca | ECON | Unknown | | + + + + + Care Team Providers + +------+ + | Care Mitering Machine Operator Name | Role | Phone [...] | Refill | [facility] [place] | [place], | Medication Refill | | 2016 | | PULMONARY [address] | Florence You MD | | | | | [place], | | | | | | [place] [address] | | | | | | [phone] | | | +--------+--------+ + + + [...] [place] | | | | | | [address] | | | | | | | | +--------+---------+ + + + documented as of this encounter Visit Diagnoses Not on filedocumented in this encounter"
--- OUTSIDE RECORDS SUMMARY | ~2019-06-03 | XMS | Encounter Summary ---
Demographics + + + | Address | [address] | | | [place] [address] | + + + | Home Phone [...] | | | | [place] [address] | | + + + + + | Jauna Gasca | ECON | [address] | | | | | [place] | | | | | [address] | | + + + + + | Juana Gasac | ECON | Unknown | | + + + + + Care Team Providers + +------+ + | Care Book Sorter Name | Role | Phone | + +------+ + PCP | Unavailable | + +------+ + Encounter Details +--------+ + + + + | Date | Type | Department | Care Team | Description | +--------+ + + + + | 05/04/ | Hospital | [facility] | Jeremías Baum MD | | | 2006 | Encounter | MED CTR MP INTRA OP | [address] [facility] | | | | | [address] | [place], [place] | | | | | [place] | [address] | | | | | [address] | [phone] | | | | | [phone] | | | +--------+ + + + [...] | | | | | [place] | | | | | | [address] | | | | | | | | +--------+---------+ + + + documented as of this encounter Visit Diagnoses Not on filedocumented in this encounter"
--- OUTSIDE RECORDS SUMMARY | ~2019-06-03 | XMS | Encounter Summary ---
Demographics + + + | Address | [address] | | | [place] [address] | + + + | Home Phone [...] | | | | [place] [address] | | + + + + + | Juana Gasca | ECON | [address] | | | | | [place] | | | | | [address] | | + + + + + | Ju[place] Gasca | ECON | Unknown | | + + + + + Care Team Providers + +------+ + | Care Fish Warden Name | Role | Phone | + +------+ + PCP | Unavailable | + +------+ + Encounter Details +--------+ + + + + | Date | Type | Department | Care Team | Description | +--------+ + + + + | 03/07/ | Hospital | [facility] | Ramo Fortune | Atrial Fibrillation | | 2007 | Encounter | [facility] | MD [address] | ([facility]) | | | | CLINICAL DECISION | [place] | | | | | [address] [place] [address] | [place] [address] | | | | | [place] | [phone] | | | | | [address] | | | | | | [phone] | | | +--------+ + + + [...] | | | | [place], [place] | | | | | | [address] | | | | | | | | +--------+---------+ + + + documented as of this encounter Visit Diagnoses + + | Diagnosis | + + | Atrial fibrillation (HCC) Atrial fibrillation | + + documented in this encounter"
--- OUTSIDE RECORDS SUMMARY | ~2019-06-03 | XMS | Encounter Summary ---
Demographics + + + | Address | [address] | | | [place] [address] | + + + | Home Phone [...] | | | | [place], [place] [address] | | + + + + + | Juana Gasca | ECON | [address] | | | | | [place] | | | | | [address] | | + + + + + | Juana Gasca | ECON | Unknown | | + + + + + Care Team Providers + +------+ + | Care Schedule Checker Name | Role | Phone | + [...] MD | phlegm) | | | | [place], | | | | | | [place] [address] | | | | | | [phone] | | | +--------+ + + + [...] | | | | | [place] | | | | | | [address] | | | | | | | | +--------+---------+ + + + documented as of this encounter Visit Diagnoses Not on filedocumented in this encounter"
--- OUTSIDE RECORDS SUMMARY | ~2019-06-03 | XMS | Encounter Summary ---
Demographics + + + | Address | [address] | | | [place] [address] | + + + | Home Phone [...] | | | | [place], [place] [address] | | + + + + + | Juana Gasca | ECON | [address] | | | | | [place] | | | | | [address] | | + + + + + | Juana Gasca | ECON | Unknown | | + + + + + Care Team Providers + +------+ + | Care Manager Floral Name | Role | Phone | + [...] + | 03/29/ | Office | [facility] | [place], | COPD (chronic | | 2012 | Visit | PULMONARY [address] | Florence You MD | obstructive | | | | [place], | | pulmonary disease) | | | | [place] [address] | | ([facility]) (Primary Dx); | | | | [phone] | | Obstructive sleep | | | [...] Pulmonary Follow Up Note Florence La MD [place] [facility] [address] [place], [address] [facility] Serge Gasca is a 78 y.o. male [...] Urethral procedure, a "roto router." He/she (caps) :[id number]} does feel like this medication regimen is working for them. They return today for ro utine follow up. Currently they are using their rescue inhaler, albuterol, 1 times a day, an d usually this is at night. Currently they are able to walk several blocks at their own pace on level ground. He is not exercising regularly. 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 Mhdtbwjlflk-Wjhpxthwb-Jwy C-Mn (GLUCOSAMINE 1500 COMPLEX PO) Active Take [...] made to ensure accuracy; however, inadvertent computerized loss prevention specialist errors may be pre sent. documented in t his encounter Plan of Treatment +--------+---------+ + + + | Date | Type | Specialty | Care Team | Description | +--------+---------+ + + + | 10/22/ | Office | Cardiology | Elif Hylton, | | | 2019 | Visit | | MD Asad FIELDS | | | | | | [place], [place] | | | | | | [phone] | | | | | | | [...]
--- OUTSIDE RECORDS SUMMARY | ~2019-06-03 | XMS | Encounter Summary ---
Demographics + + + | Address | [address] | | | [place] [address] | + + + | Home Phone [...] | | | | [place], [place] [address] | | + + + + + | Juana Gasca | ECON | [address] | | | | | [place] | | | | | [address] | | + + + + + | Juana Gasca | ECON | Unknown | | + + + + + Care Team Providers + +------+ + | Care Hand Woven Carpet And Rug Mender Name | Role | Phone | + [...] + | 12/28/ | Office | [facility] | [place], | COPD (chronic | | 2012 | Visit | PULMONARY [address] | Florence You MD | obstructive | | | | [place], | | pulmonary disease) | | | | [place] [address] | | ([facility]) (Primary Dx); | | | | [phone] | | Obstructive sleep | | | [...] an overnight oxy gen test through [facility]. You will pickling drum operator a box at [facility], wear th e finger probe through the night and then return the box for a download the next day. Do the test on your BiPAP. Call the [employer] [facility] before you pick it up to make sure they ibarra ve a box available. Bring a download to your next appointment. documented in this encounter Progress Notes Florence La MD - 12/28/2012 2:37 PM PDTFormatting of this note might be differe nt from the original. Pulmonary Follow Up Note MD Aliza Sanforda [place] [facility] [address] [place], [address] [facility] Serge Gasca is a 77 y.o. male patient of Timo Lorenzana here today for follo w up of COPD. Since in last time, he had a brief hospitalization in October at [facility] for a COPD exace rbation. We called [...] Take 40 mg by mouth every morning. Qzbuyptbvvf-Kuucwuqka-Xli C-Mn (GLUCOSAMINE 1500 COMPLEX PO) Take 1,500 [...] made to ensure accuracy; however, inadvertent computerized commercial loan manager errors may be pre sent. documented [...] [place] | | | | | | [address] | | | | | | | [...]
--- OUTSIDE RECORDS SUMMARY | ~2019-06-03 | XMS | Encounter Summary ---
Demographics + + + | Address | [address] | | | [place] [address] | + + + | Home Phone [...] | | | | [place] [address] | | + + + + + | Juana Gasca | ECON | [address] | | | | | [place] | | | | | [address] | | + + + + + | Juana Gasca | ECON | Unknown | | + + + + + Care Team Providers + +------+ + | Care Checker And Packer Name | Role | Phone | + +------+ + PCP | Unavailable | + +------+ + Encounter Details +--------+ + + + + | Date | Type | Department | Care Team | Description | +--------+ + + + + | 07/05/ | Hospital | [facility] | [place], | | | 2011 | Encounter | MED CTR XRAY [address] | Florence You MD | | | | | [place] | | | | | | [place] [address] | | | | | | [phone] | | | +--------+ + + + [...] | | | | | [place] | | | | | | [address] | | | | | | | [...] Performed At | + + + | [facility] Diagnostic Imaging Department | [place] | | [address] [facility] [place] | [facility] | | CT CHEST WITHOUT CONTRAST: [...] Transcribed Date/Time: | | | 07/06/2011 10:09 Chief Service Observer: PONCE <Electronically Signed | | | by Vni Reyes MD> 07/07/11 1834 | | + + + + + | Procedure Note | + + | Pal, Rad Conversion - 07/12/2013 4:40 PM [facility] | | Diagnostic Imaging Department | | [address] [facility] [place] | | | | | | [...] | Transcribed Date/Time: 07/06/2011 10:09 | | Chief Service Observer: PONCE | | <Electronically Signed by Vin Reyes MD> 07/07/11 3152 | + + + +---------+ + + [...]
--- OUTSIDE RECORDS SUMMARY | ~2019-06-03 | XMS | Encounter Summary ---
Demographics + + + | Address | [address] | | | [place] [address] | + + + | Home Phone [...] | | | | [place] [address] | | + + + + + | Juana Gasca | ECON | [address] | | | | | [place] | | | | | [address] | | + + + + + | Juana Gasca | ECON | Unknown | | + + + + + Care Team Providers + +------+ + | Care Spice Miller Name | Role | Phone | + +------+ + PCP | Unavailable | + +------+ + Encounter Details +--------+ + + + + | Date | Type | Department | Care Team | Description | +--------+ + + + + | 09/30/ | Hospital | [facility] | Jin Epps MD | CORONARY ATHEROSCLER | | 2004 - | Encounter | [facility] | [address] | [address] | | | | CARE [address]LO[address] | [place] [address] | | | 10/01/ | | [address] | [phone] | | | 2004 | | [place], [place] | | | | | | [address] | [address] | | | | | [phone] | MD [address] | | | | | | [address] | | | | | | [place] [address] | | | | | | [phone] | | | | | | | [...] | | | | | [place] | | | | | | [address] | | | | | | | | +--------+---------+ + + + documented as of this encounter Visit Diagnoses + + | Diagnosis | + + | Coronary atherosclerosis of unspecified type of vessel, mesa grande or graft | + + documented in this encounter"
--- OUTSIDE RECORDS SUMMARY | ~2019-06-03 | XMS | Encounter Summary ---
Demographics + + + | Address | [address] | | | [place] [address] | + + + | Home Phone [...] | | | | [place], [place] [address] | | + + + + + | Juana Ventura | ECON | [address] | | | | | [place] | | | | | [address] | | + + + + + | Juana Ventura | ECON | Unknown | | + + + + + Care Team Providers + +------+ + | Care Funeral Home Assistant Name | Role | Phone | + +------+ + | Timo Lorenzana | PCP | | | MD | | | + +------+ + Encounter Details +--------+ + + + + | Date | Type | Department | Care Team | Description | +--------+ + + + + | 07/19/ | Hospital | [facility] | Offenstein, | Cough | | 2012 - | Encounter | MED CTR XRAY [address] | Florence You MD | | | | | [place] | | | | 07/21/ | | [place] [address] | | | | 2012 | | [phone] | | | +--------+ + + + [...] | | | | | [place], [place] | | | | | | [address] | | | | | | | [...] Performed At | + + + | [facility] Diagnostic Imaging | [facility] | | Department [address] [place], [place] [address] | [facility] | | [ rep [address]] [ rep [facility] | | st zip] Signed | - IMAGING | | | | | Patient Name: DENISE VENTURA Physician: | | | : 1935 Age: 77 Sex: M Unit #: [id number] | | | Exam Date: 07/19/12 Location: [facility] | | | Report #: [id number] Page: | | | %(RAD)RES..mtdd.print.filter("pg") of %(RAD) | | | RES..mtdd.print.filter("tpg") | | | | | | Accession Number: [id number] | | | TWO-VIEW CHEST CLINICAL HISTORY: [...] Date/Time: | | | 07/19/2012 19:42 Hot Pond Operator: | | | <<Signature on File>> | | | | | | Orlando Mehta MD07/20/12 0836 <Electronically signed by | | | Orlando Mehta MD> Orlando Mehta MD 07/19/12 | | | 1733 Hot Pond Operator: [employer] Qojvcnnfvhruc95/14/13 194 | | | Florence La MD | | + + + + + + + + | Performing | Address | City/State/Zipcode | Phone Number | | Organization | | | | + + + + + | [facility] | [address] | [place] | [phone] | | [facility] | | [address] | | | - IMAGING | | | | + + + + + documented in this encounter Visit Diagnoses + + | Diagnosis | + + | Cough | + + documented in this encounter
--- OUTSIDE RECORDS SUMMARY | ~2019-06-03 | XMS | Encounter Summary ---
Demographics + + + | Address | [address] | | | [place] [address] | + + + | Home Phone [...] | | | | [place], [place] [address] | | + + + + + | Juana Gasca | ECON | [address] | | | | | [place] | | | | | [address] | | + + + + + | Juana Gasca | ECON | Unknown | | + + + + + Care Team Providers + +------+ + | Care Director Of Golf Name | Role | Phone | + [...] + + | 09/27/ | Office | [facility] | [place]enstein, | COPD (chronic | | 2013 | Visit | PULMONARY [address] | Florence You MD | obstructive | | | | [place], | | pulmonary disease) | | | | [place] [address] | | (Primary Dx); | | | | [phone] | | Obstructive sleep | | | | | | apnea on BiPAP; | | | | | | 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 We offered follow up at that time, an d he declined noting he was doing well. He has subsequently lost 30 pounds of weight and reports he has been doing well. He is currently on a regimen of Advair and Spiriva. He does feel like this medication [employer] is working for them. Currently he is [...] Take 40 mg by mouth every morning. Kfgxxrxgagq-Hnsoucsbz-Ong C-Mn (GLUCOSAMINE 1500 COMPLEX PO) Take 1,500 [...] made to ensure accuracy; however, inadvertent computerized calender roll operator errors may be pre sent. Electronically [...] | | | | | [place] | | | | | | [id number] | | | | | | | [...]
--- OUTSIDE RECORDS SUMMARY | ~2019-06-03 | XMS | Encounter Summary ---
Demographics + + + | Address | [address] | | | [place] [address] | + + + | Home Phone [...] | | | | [place], [place] [address] | | + + + + + | Juana Gasca | ECON | [address] | | | | | [place] | | | | | [address] | | + + + + + | Juana Gasca | ECON | Unknown | | + + + + + Care Team Providers + +------+ + | Care Chair Mechanic Name | Role | Phone | [...] + + | 04/03/ | Office | [facility] | Elif Weinstein, | Atrial fibrillation, | | 2019 | Visit | CARDIOLOGY BHUPINDER | [address] | chronic (Primary | | | | [address] | [place] [facility] | Dx); Hypertension; | | | | [address] [address] | [address] | Obstructive sleep | | | | [place] | | apnea on BiPAP; S/P | | | | [address] | | AVR (aortic valve | | | | [phone] | | replacement); S/P | | | [...] into the lungs 2 (two) times daily. Azpvjheaqyb-Gkkelvphp-Pja C-Mn (GLUCOSAMINE 1500 COMPLEX PO) Take 3,000 [...] mg by mouth daily. Sliding scal e, Warden regulates warfarin (COUMADIN) 7.5 mg tablet Take [...] Hx Pacemaker/ICD: 08/30/2007, Guidant Insignia 1291, SN: [id number]. Last interrogation 11/19/2018 1 year, RV pacing [...] | | | | | [place], [place] | | | | | | [address] | | | | | | | [...]
--- OUTSIDE RECORDS SUMMARY | ~2019-06-03 | XMS | Encounter Summary ---
Demographics + + + | Address | [address] | | | [place] [address] | + + + | Home Phone [...] | | | | [place] [address] | | + + + + + | Juana Ventura | ECON | [address] | | | | | [place] | | | | | [address] | | + + + + + | Juana Ventura | ECON | Unknown | | + + + + + Care Team Providers + +------+ + | Care Automation Design Engineer Name | Role | Phone | + +------+ + PCP | Unavailable | + +------+ + Encounter Details +--------+ + + + + | Date | Type | Department | Care Team | Description | +--------+ + + + + | 11/17/ | Hospital | [facility] | Gabriel Davila, | | | 2009 - | Encounter | HEART MED CTR | [address] | | | | | CARDIAC TELEMETRY | [place] [address] | | | 11/19/ | | [address] | [place] [address] | | | 2009 | | [place] | [phone] | | | | | [address] | | | | | | [phone] | | | +--------+ + + + [...] NAME: Serge Ventura Sex/Age: M/74 : 1935 [id number] ADMISSION DATE: 11/17/2009 DISCHARGE DATE: 11/19/2009 [...] two weeks. Gabriel Davila MD A [facility]/jar #[id number] cc: Gabriel Davila MD Segundo VENTURA ADM:11/17/09 [id number] 11/19/09 DIS IN [id number] DISCHARGE SUMMARY Gabriel kee MD [facility] THIS REPORT IS CONFIDENTIAL AND [...] [place] | | | | | | [address] | | | | | | | | +--------+---------+ + + + documented as of this encounter Visit Diagnoses Not on filedocumented in this encounter"
--- OUTSIDE RECORDS SUMMARY | ~2019-06-03 | XMS | Encounter Summary ---
Demographics + + + | Address | [address] | | | [place] [address] | + + + | Home Phone | | + + + | Preferred Language | Unknown | + + + | Marital Status | | + + + | Sabianist Affiliation | 1013 | + + + | Race | Unknown | + + + | Ethnic Group | Unknown | + + + Author + + + | Author | [facility] | | | and [place] | + + + | Organization | [facility] | | [...] | | | | [place], [place] [address] | | + + + + + | Juana Gasca | ECON | [address] | | | | | [place] | | | | | [address] | | + + + + + | Juana Gasca | ECON | Unknown | | + + + + + Care Team Providers + +------+ + | Care Security Police Officer Name | Role | Phone | [...] | | | | | [place] [address] | | | | | | [phone] | | | +--------+ + + + [...] | | | | | [place] | | | | | | [address] | | | | | | | | +--------+---------+ + + + documented as of this encounter Visit Diagnoses Not on filedocumented in this encounter"
--- OUTSIDE RECORDS SUMMARY | ~2019-06-03 | XMS | Encounter Summary ---
Demographics + + + | Address | [address] | | | [place] [address] | + + + | Home Phone [...] | | | | [place], [place] [address] | | + + + + + | Juana Gasca | ECON | [address] | | | | | [place] | | | | | [address] | | + + + + + | Juana Gasca | ECON | Unknown | | + + + + + Care Team Providers + +------+ + | Care Spanish Moss Picker Name | Role | Phone | + [...] + + | 04/26/ | Telephone | [facility] | Alicja Lloyd, | Weight Gain | | 2018 | | CARDIOLOGY JULIAN | GINGER | | | | | [address] | | | | | | [place] | | | | | | [address] | | | | | | [phone] | | | +--------+ + + + [...] [place] | | | | | | [address] | | | | | | | | +--------+---------+ + + + documented as of this encounter Visit Diagnoses Not on filedocumented in this encounter"
--- OUTSIDE RECORDS SUMMARY | ~2019-06-03 | XMS | Encounter Summary ---
Demographics + + + | Address | [address] | | | [place] [address] | + + + | Home Phone [...] | | | | [place], [place] [address] | | + + + + + | Juana Gasca | ECON | [address] | | | | | [place] | | | | | [address] | | + + + + + | Juana Gasca | ECON | Unknown | | + + + + + Care Team Providers + +------+ + | Care Capsule Machine Operator Name | Role | Phone [...] + + | 06/25/ | Office | [facility] [place] | [place]enstein, | COPD (chronic | | 2015 | Visit | PULMONARY [address] | Florence You MD | obstructive | | | | [place], | | pulmonary disease) | | | | [place] [address] | | (Primary Dx); MARY | | | | [phone] | | (obstructive sleep | | | [...] an overnight oxy gen test through [facility]. Call the [facility] before you pick it up to make sure they have a box available. You will knot picker cloth a box at the [facility]. Do the t est on BiPAP only. [...] He notes when he we nt to [place], he did not take his oxygen with [...] inhaler 1 puff inhaled tw ice daily Vcudpdqinut-Vqcilbycu-Ygz C-Mn (GLUCOSAMINE 1500 COMPLEX PO) Take 1,500 [...] made to ensure accuracy; however, inadvertent computerized shift supervisor errors may be pre sent. documented in t his encounter Plan of Treatment +--------+---------+ + + + | Date | Type | Specialty | Care Team | Description | +--------+---------+ + + + | 10/22/ | Office | Cardiology | Elif Hylton, | | | 2019 | Visit | | [address] | | | | | | [place], [place] | | | | | | [address] | | | | | | | [...]
--- OUTSIDE RECORDS SUMMARY | ~2019-06-03 | XMS | Encounter Summary ---
Demographics + + + | Address | [address] | | | [place] [address] | + + + | Home Phone [...] | | | | [place], [place] [address] | | + + + + + | Juana Gasca | ECON | [address] | | | | | [place] | | | | | [address] | | + + + + + | Ju[place] Gasca | ECON | Unknown | | + + + + + Care Team Providers + +------+ + | Care Flour Blender Helper Name | Role | Phone | + +------+ + | Timo Lorenzana | PCP | | | MD | | | + +------+ + Reason for Visit +--------+ + | Reason | Comments | +--------+ + | Other | | +--------+ + Encounter Details +--------+ + + + + | Date | Type | Department | Care Team | Description | +--------+ + + + + | 10/19/ | Telephone | [facility] | Cassidy Xavier, | Other | | 2012 | | PULMONARY [address] | RN | | | | | [place], | | | | | | [place] [address] | | | | | | [phone] | | | +--------+ + + + [...] | | | | | [place], [place] | | | | | | [address] | | | | | | | | +--------+---------+ + + + documented as of this encounter Visit Diagnoses Not on filedocumented in this encounter"
--- OUTSIDE RECORDS SUMMARY | ~2019-06-03 | XMS | Encounter Summary ---
Demographics + + + | Address | [address] | | | [place] [address] | + + + | Home Phone [...] | | | | [place] [address] | | + + + + + | Juana Gasca | ECON | [address] | | | | | [place] | | | | | [address] | | + + + + + | Juana Gasca | ECON | Unknown | | + + + + + Care Team Providers + +------+ + | Care Cocoa Bean Roaster Name | Role | Phone | + +------+ + PCP | Unavailable | + +------+ + Encounter Details +--------+ + + + + | Date | Type | Department | Care Team | Description | +--------+ + + + + | 03/07/ | Abstract | [facility] | Abhinav, | | | 2011 | | Group - [place] | Florence You MD | | | | | Administration [address] | | | | | | [address] | | | | | | [place] | | | | | | [address] | | | | | | [phone] | | | +--------+ + + + [...] [place] | | | | | | [address] | | | | | | | | +--------+---------+ + + + documented as of this encounter Visit Diagnoses Not on filedocumented in this encounter"
--- OUTSIDE RECORDS SUMMARY | ~2019-06-03 | XMS | Encounter Summary ---
Demographics + + + | Address | [address] | | | [place] [address] | + + + | Home Phone [...] | | | | [place], [place] [address] | | + + + + + | Juana Gasca | ECON | [address] | | | | | [place] | | | | | [address] | | + + + + + | Ju[place] Gasca | ECON | Unknown | | + + + + + Care Team Providers + +------+ + | Care Biochemistry Specialist Name | Role | Phone | + +------+ + | Timo Lorenzana | PCP | | | MD | | | + +------+ + Encounter Details +--------+ + + + + | Date | Type | Department | Care Team | Description | +--------+ + + + + | 12/27/ | Orders Only | [facility] | Provider, | | | 2018 | | SYSTEM GENERIC OP | MD Link [address] | | | | | [address] | Chelsie [place] | | | | | [address] [place], [place] | [place] [address] | | | | | [address] | | | | | | [phone] | | | +--------+ + + + [...] [place] | | | | | | [address] | | | | | | | | +--------+---------+ + + + documented as of this encounter Visit Diagnoses Not on filedocumented in this encounter"
--- OUTSIDE RECORDS SUMMARY | ~2019-06-03 | XMS | Encounter Summary ---
Demographics + + + | Address | [address] | | | [place] [address] | + + + | Home Phone [...] | | | | [place] [address] | | + + + + + | Juana Ventura | ECON | [address] | | | | | [place] | | | | | [address] | | + + + + + | Juana Ventura | ECON | Unknown | | + + + + + Care Team Providers + +------+ + | Care Inspector Salvage Name | Role | Phone | + +------+ + PCP | Unavailable | + +------+ + Encounter Details +--------+ + + + + | Date | Type | Department | Care Team | Description | +--------+ + + + + | 08/27/ | Hospital | [facility] | Gabriel Davila, | | | 2007 - | Encounter | HEART MED CTR | [address] | | | | | CARDIAC TELEMETRY | [place] [address] | | | 08/30/ | | [address] | [place] [address] | | | 2007 | | [place] | [phone] | | | | | [address] | | | | | | [phone] | | | +--------+ + + + [...] in the office. Gabriel Davila MD [facility] #[id number] cc: Gabriel Davila MD Segundo VENTURA [id number] 08/31/07 DIS IN [id number] DISCHARGE SUMMARY Gabriel kee MD [facility] THIS REPORT IS CONFIDENTIAL AND [...] [place] | | | | | | [address] | | | | | | | | +--------+---------+ + + + documented as of this encounter Visit Diagnoses Not on filedocumented in this encounter"
--- OUTSIDE RECORDS SUMMARY | ~2019-06-03 | XMS | Encounter Summary ---
Demographics + + + | Address | [address] | | | [place] [address] | + + + | Home Phone [...] | | | | [place], [place] [address] | | + + + + + | Juana Gasca | ECON | [address] | | | | | [place] | | | | | [address] | | + + + + + | Juana Gasca | ECON | Unknown | | + + + + + Care Team Providers + +------+ + | Care Integrated Circuit Design Engineer Name | Role | Phone [...] + | 09/27/ | Office | [facility] | [place], | COPD (chronic | | 2013 | Visit | PULMONARY [address] | Florence You MD | obstructive | | | | [place], | | pulmonary disease) | | | | [place] [address] | | (Primary Dx); | | | | [phone] | | Obstructive sleep | | | [...] he wa s in the ER in [place] with a CHF/COPD exacerbation. We offered follow up at that time, an d he declined noting he was doing well. He has subsequently lost 30 pounds of weight and reports he has been doing well. He is currently on a regimen of Advair and Spiriva. He does feel like this medication [employer] is working for them. Currently he is [...] Take 40 mg by mouth every morning. Pyhhpwmsxnc-Zfuikuitp-Ail C-Mn (GLUCOSAMINE 1500 COMPLEX PO) Take 1,500 [...] made to ensure accuracy; however, inadvertent computerized heat set operator errors may be pre sent. Electronically [...] | | | | | [place] | | | | | | [address] | | | | | | | [...]
--- OUTSIDE RECORDS SUMMARY | ~2019-06-03 | XMS | Encounter Summary ---
Demographics + + + | Address | [address] | | | [place] [address] | + + + | Home Phone | | + + + | Preferred Language | Unknown | + + + | Marital Status | | + + + | Spiritism Affiliation | 1013 | + + + | Race | Unknown | + + + | Ethnic Group | Unknown | + + + Author + + + | Author | [facility] (Historical as of | | | 01-19-19) | + + + | Organization | [facility] (Historical as of | | | 01-19-19) [...] Providers + +------+ + | Care Data Miner Name | Role | Phone | + +------+ + | Timo Lorenzana MD | PCP | | + +------+ + Encounter Details +--------+---------+ + + + | Date | Type | Department | Care Team | Description | +--------+---------+ + + + | 03/11/ | Office | [facility] | Yuri Raymond | | | 2019 | Visit | Pulmonology [address] | Rush Raymond MD [address] | | | | | [address] | [address] | | | | | [place], [place] | [place] [address] | | | | | [address] | [phone] | | | | | [phone] | | | +--------+---------+ + + + [...]
--- OUTSIDE RECORDS SUMMARY | ~2019-06-03 | XMS | Encounter Summary ---
Demographics + + + | Address | [address] | | | [place] [address] | + + + | Home Phone | | + + + | Preferred Language | Unknown | + + + | Marital Status | | + + + | Advent Affiliation | 1013 | + + + | Race | Unknown | + + + | Ethnic Group | Unknown | + + + Author + + + | Author | [facility] | | | and [place] | + + + | Organization | [facility] | | | [...] | | | | [place], [place] [address] | | + + + + + | Juana Ventura | ECON | [address] | | | | | [place] | | | | | [address] | | + + + + + | Juana Ventura | ECON | Unknown | | + + + + + Care Team Providers + +------+ + | Care Energy Manager Name | Role | Phone | [...] + + | 07/19/ | Office | [facility] [place] | [place]enstein, | Cough (Primary Dx); | | 2012 | Visit | PULMONARY [address] | Florence You MD | COPD (chronic | | | | [place], | | obstructive | | | | [place] [address] | | pulmonary disease) | | | | [phone] | | ([facility]); MARY | | | | [...] Vent[place] [address] [place] [address] Dear Denise: Thank you for enrolling in [facility]. Please follow the instructions below to view your [employer] online medical record. [facility] allows you to send secure messages to your doctor, view you r test results, renew your prescriptions, schedule appointments, and more. How Do I Sign Up? 1. In your Internet browser, go to [email or web address] 2. Click on the Sign Up Now link in the Sign In box. This will take you to the [facility] Sign Up page. 3. Enter your [employer] access code exactly as it appears below. You will not need to use this code after you sign up. If you do not sign up before the expiration date, you must requ est a new code through your [facility]. [facility] Access Code: [email or web address] Expires: 09/17/2012 14:35 4. Fill in the last four digits of your Social Security Number (xxxx) and Date of (mm/dd/yyyy) when asked and click Submit. You will now be asked to create a [facility] ID. 5. Create a CXt ID. This will be your [facility] login ID. Your login ID cannot be sharpe ged, so think of one that is secure and easy to remember. 6. Create a [facility] password. You can change your password at any time. 7. Enter your Password Reset Question and Answer. This can be used at a later time if yo u forget your password. 8. Enter your e-mail address. You will receive e-mail notification when new information is available in [employer]. 9. Click Sign Up. You may now view your medical record. Additional Information If you have questions, you can email or call [phone] to talk to our [facility] care team. Please remember, CXt should NOT be used fo r urgent [...] any significant nasal congestion, he is using [facility] to treat any issu es in his [...] and Monday. Take 10mg all other days Pkjjubjltkb-Cyjgucyvl-Ifn C-Mn (GLUCOSAMINE 1500 COMPLEX PO) Take 1,500 [...] | | | | | [place], [place] | | | | | | [address] | | | | | | | | +--------+---------+ + + + documented as of this encounter Results XR Chest PA and Lateral (07/19/2012 5:33 PM PST) + + | Specimen | + + | | + + + + + | Narrative | Performed At | + + + | [facility] | [place] | | Department [address] [place] [address] | [facility] | | [ rep [address]] [ rep [facility] | | st zip] Signed | - IMAGING | | | | | Patient Name: DENISE VENTURA Physician: | | | VESTAJazmine : 1935 Age: 77 Sex: M Unit #: [id number] | | | Exam Date: 07/19/12 Location: [facility] | | | Report #: [id number] Page: | | | %(RAD)RES..mtdd.print.filter("pg") of %(RAD) | | | RES..mtdd.print.filter("tpg") | | | | | | Accession Number: [id number] | | | TWO-VIEW CHEST CLINICAL HISTORY: [...] Transcribed Date/Time: | | | 07/19/2012 19:42 Wing Scorer: | | | <<Signature on File>> | | | | | | Orlando Mehta MD07/20/12 0836 <Electronically signed by | | | Orlando Mehta MD> Orlando Mehta MD 07/19/12 | | | 1733 Wing Scorer: [employer] [id number] | | | Florence La MD | | + + + + + + + + | Performing | Address | City/State/Zipcode | Phone Number | | Organization | | | | + + + + + | [facility] | [address] | [place] | [phone] | | [facility] | | [address] | | | - IMAGING | | [...]
--- OUTSIDE RECORDS SUMMARY | ~2019-06-03 | XMS | Encounter Summary ---
Demographics + + + | Address | [address] | | | [place] [address] | + + + | Home Phone [...] | | | | [place], [place] [address] | | + + + + + | Juana Gasca | ECON | [address] | | | | | [place] | | | | | [address] | | + + + + + | Juana Gasca | ECON | Unknown | | + + + + + Care Team Providers + +------+ + | Care Circuit Breaker Supervisor Name | Role | Phone | [...] + + | 03/30/ | Office | [facility] [place] | Offenstein, | Hemoptysis (Primary | | 2014 | Visit | PULMONARY [address] | Florence You MD | Dx); COPD (chronic | | | | [place], | | obstructive | | | | [place] [address] | | pulmonary disease); | | | | [phone] | | Obstructive sleep | | | | | | apnea on BiPAP; | | | | | | 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 [facility] mehreen Riddle t [...] t o do a chest x-ray in [place], but he felt like he was doing okay. He is currently on a regimen of Advair twice daily and Spiriva once daily. He does feel li ke this medication regimen is working for them. Currently he is using his rescue inhaler, al buterol, 1 times a week. He is using his nebulizer, albuterol, 2 times a day. [facility] returns [facility] for routine follow up. Currently he [...] inhaled tw ice daily 3 each 4 Ejywsovmavk-Cxtauhnfe-Wty C-Mn (GLUCOSAMINE 1500 COMPLEX PO) Take 1,500 [...] mg by mouth nightly. Respiratory Therapy Supplies [facility] Discontinue nebulizer. Fax [...] Advair. Plan 1.Check chest CT scan at [facility]. 2.Decrease Advair to 100 mcg dose, 1 [...] made to ensure accuracy; however, inadvertent computerized sales manager errors may be pre sent. documented in this encounter Plan of Treatment +--------+---------+ + + + | Date | Type | Specialty | Care Team | Description | +--------+---------+ + + + | 10/22/ | Office | Cardiology | Elif Hylton, | | | 2019 | Visit | | MD Asad FIELDS | | | | | | [place], [place] | | | | | | [id number] | | | | | | | [...]
--- OUTSIDE RECORDS SUMMARY | ~2019-06-03 | XMS | Encounter Summary ---
Demographics + + + | Address | [address] | | | [place] [address] | + + + | Home Phone | | + + + | Preferred Language | Unknown | + + + | Marital Status | | + + + | Restoration Affiliation | 1013 | + + + | Race | Unknown | + + + | Ethnic Group | Unknown | + + + Author + + + | Author | [facility] | | | and [place] | + + + | Organization | [facility] | | [...] | | | | [place], [place] [address] | | + + + + + | Juana Gasca | ECON | [address] | | | | | [place] | | | | | [address] | | + + + + + | Juana Gasca | ECON | Unknown | | + + + + + Care Team Providers + +------+ + | Care Cotton Washer Name | Role | Phone | [...] | | | | | [place] [address] | | | | | | [phone] | | | +--------+ + + + [...] | | | | | [place], [place] | | | | | | [address] | | | | | | | [...]
--- OUTSIDE RECORDS SUMMARY | ~2019-06-03 | XMS | Encounter Summary ---
Demographics + + + | Address | [address] | | | [place] [address] | + + + | Home Phone [...] | | | | [place] [address] | | + + + + + | Juana Gasca | ECON | [address] | | | | | [place] | | | | | [address] | | + + + + + | Juana Gasca | ECON | Unknown | | + + + + + Care Team Providers + +------+ + | Care Executive Search Consultant Name | Role | Phone | + +------+ + PCP | Unavailable | + +------+ + Encounter Details +--------+ + + + + | Date | Type | Department | Care Team | Description | +--------+ + + + + | 06/02/ | Hospital | [facility] | [place], | | | 2010 | Encounter | MED CTR GENERIC OP | Florence You MD | | | | | CONV DEPT [address] | | | | | | [place], | | | | | | [place] [address] | | | | | | [phone] | | | +--------+ + + + [...] [place] | | | | | | [address] | | | | | | | | +--------+---------+ + + + documented as of this encounter Visit Diagnoses Not on filedocumented in this encounter"
--- OUTSIDE RECORDS SUMMARY | ~2019-06-03 | XMS | Encounter Summary ---
Demographics + + + | Address | [address] | | | [place] [address] | + + + | Home Phone [...] | | | | [place], [place] [address] | | + + + + + | Juana Gasca | ECON | [address] | | | | | [place] | | | | | [address] | | + + + + + | Juana Gasca | ECON | Unknown | | + + + + + Care Team Providers + +------+ + | Care Insight Director Name | Role | Phone | [...] | | | | | [place] [address] | | | | | | [phone] | | | +--------+ + + + [...] | | | | | [place], [place] | | | | | | [address] | | | | | | | [...]
--- OUTSIDE RECORDS SUMMARY | ~2019-06-03 | XMS | Encounter Summary ---
Demographics + + + | Address | [address] | | | [place] [address] | + + + | Home Phone [...] | | | | [place] [address] | | + + + + + | Juana Gasca | ECON | [address] | | | | | [place] | | | | | [address] | | + + + + + | Juana Gasca | ECON | Unknown | | + + + + + Care Team Providers + +------+ + | Care Forest Law And Policy Professor Name | Role | Phone | [...] + | 05/17/ | Telephone | [facility] | Cassidy Xavier, | Other (schedule | | 2012 | | PULMONARY [address] | RN | follow up) | | | | [place], | | | | | | [place] [address] | | | | | | [phone] | | | +--------+ + + + [...] | | | | [place] | | | | | | [address] | | | | | | | | +--------+---------+ + + + documented as of this encounter Visit Diagnoses Not on filedocumented in this encounter"
--- OUTSIDE RECORDS SUMMARY | ~2019-06-03 | XMS | Encounter Summary ---
Demographics + + + | Address | [address] | | | [place] [address] | + + + | Home Phone [...] | | | | [place] [address] | | + + + + + | Juana Gasca | ECON | [address] | | | | | [place] | | | | | [address] | | + + + + + | Juana Gasca | ECON | Unknown | | + + + + + Care Team Providers + +------+ + | Care Supervisor Mail Carriers Name | Role | Phone | + +------+ + PCP | Unavailable | + +------+ + Encounter Details +--------+ + + + + | Date | Type | Department | Care Team | Description | +--------+ + + + + | 02/15/ | Abstract | [facility] | DATA MIGRATION JESSE | | | 2012 | | Conversion Location | [place] | | | | | [phone] | | | +--------+ + + + [...] [place] | | | | | | [address] | | | | | | | | +--------+---------+ + + + documented as of this encounter Visit Diagnoses Not on filedocumented in this encounter
--- OUTSIDE RECORDS SUMMARY | ~2019-06-03 | XMS | Encounter Summary ---
Demographics + + + | Address | [address] | | | [place] [address] | + + + | Home Phone [...] | | | | [place] [address] | | + + + + + | Juana Gasca | ECON | [address] | | | | | [place] | | | | | [address] | | + + + + + | Juana Gasca | ECON | Unknown | | + + + + + Care Team Providers + +------+ + | Care Cleaner Name | Role | Phone | [...] | | | | | | [place] [address] | | | | | | [phone] | | | +--------+ + + + [...] | | | | | [place] | | | | | | [id number] | | | | | | | | +--------+---------+ + + + documented as of this encounter Visit Diagnoses Not on filedocumented in this encounter"
--- OUTSIDE RECORDS SUMMARY | ~2019-06-03 | XMS | Encounter Summary ---
Demographics + + + | Address | [address] | | | [place] [address] | + + + | Home Phone [...] | | | | [place] [address] | | + + + + + | Juana Gasca | ECON | [address] | | | | | [place] | | | | | [address] | | + + + + + | Juana Gasca | ECON | Unknown | | + + + + + Care Team Providers + +------+ + | Care Moccasin Sewer Name | Role | Phone | + +------+ + PCP | Unavailable | + +------+ + Encounter Details +--------+ + + + + | Date | Type | Department | Care Team | Description | +--------+ + + + + | 07/21/ | Hospital | [facility] | Jin Epps MD | | | 2005 - | Encounter | [facility] | [address] | | | | | INTENSIVE CARE UNIT | [place] [address] | | | 07/22/ | | [address] | [phone] | | | 2005 | | [place], [place] | | | | | | [address] | | | | | | [phone] | | | +--------+ + + + [...] | | | | | [place] | | | | | | [address] | | | | | | | | +--------+---------+ + + + documented as of this encounter Visit Diagnoses Not on filedocumented in this encounter"
--- OUTSIDE RECORDS SUMMARY | ~2019-06-03 | XMS | Encounter Summary ---
Demographics + + + | Address | [address] | | | [place] [address] | + + + | Home Phone [...] | | | | [place], [place] [address] | | + + + + + | Juana Gasca | ECON | [address] | | | | | [place] | | | | | [address] | | + + + + + | Juana Gasca | ECON | Unknown | | + + + + + Care Team Providers + +------+ + | Care Biostatistics Teacher Name | Role | Phone | [...] | apnea (adult) | | | | [place], | | (pediatric) | | | | [place] [address] | | | | | | [phone] | | | +--------+ + + + [...] [place] | | | | | | [address] | | | | | | | | +--------+---------+ + + + documented as of this encounter Visit Diagnoses + + | Diagnosis | + + | Obstructive sleep apnea (adult) (pediatric) | + + documented in this encounter"
--- OUTSIDE RECORDS SUMMARY | ~2019-06-03 | XMS | Encounter Summary ---
Demographics + + + | Address | [address] | | | [place] [address] | + + + | Home Phone | | + + + | Preferred Language | Unknown | + + + | Marital Status | | + + + | Mandaeism Affiliation | 1013 | + + + | Race | Unknown | + + + | Ethnic Group | Unknown | + + + Author + + + | Author | [facility] | | | and [place] | + + + | Organization | [facility] | | | [...] | | | | [place] [address] | | + + + + + | Juana Gasca | ECON | [address] | | | | | [place] | | | | | [address] | | + + + + + | Juana Gasca | ECON | Unknown | | + + + + + Care Team Providers + +------+ + | Care Bulk Intake Worker Name | Role | Phone | [...] | SR | | | | | [phone] | | | +--------+ + + + [...] [place] | | | | | | [address] | | | | | | | | +--------+---------+ + + + documented as of this encounter Visit Diagnoses Not on filedocumented in this encounter
--- OUTSIDE RECORDS SUMMARY | ~2019-06-03 | XMS | Encounter Summary ---
Demographics + + + | Address | [address] | | | [place] [address] | + + + | Home Phone [...] | | | | [place], [place] [address] | | + + + + + | Juana Gasca | ECON | [address] | | | | | [place] | | | | | [address] | | + + + + + | Juana Gasca | ECON | Unknown | | + + + + + Care Team Providers + +------+ + | Care Cryptographic Technician Name | Role | Phone | + +------+ + | Tiom Lorenzana | PCP | | | MD | | | + +------+ + Reason for Visit + + + | Reason | Comments | + + + | Medication Refill | | + + + Encounter Details +--------+--------+ + + + | Date | Type | Department | Care Team | Description | +--------+--------+ + + + | 03/18/ | Refill | [facility] | Yuri Raymond | Medication Refill | | 2019 | | PULMONOLOGY [address] | Rush Raymond MD [address] | | | | | [address] | [address] | | | | | [place], [place] | [place] [address] | | | | | [address] | [phone] | | | | | [phone] | | | +--------+--------+ + + + [...] | | | | | [place] | | | | | | [address] | | | | | | | | +--------+---------+ + + + documented as of this encounter Visit Diagnoses Not on filedocumented in this encounter"
--- OUTSIDE RECORDS SUMMARY | ~2019-06-03 | XMS | Encounter Summary ---
Demographics + + + | Address | [address] | | | [place] [address] | + + + | Home Phone [...] | | | | [place] [address] | | + + + + + | Juana Gasca | ECON | [address] | | | | | [place] | | | | | [address] | | + + + + + | Juana Gasca | ECON | Unknown | | + + + + + Care Team Providers + +------+ + | Care Produce Department Supervisor Name | Role | Phone | + +------+ + PCP | Unavailable | + +------+ + Encounter Details +--------+ + + + + | Date | Type | Department | Care Team | Description | +--------+ + + + + | 07/21/ | Hospital | [facility] | Jin Epps MD | | | 2005 - | Encounter | [facility] | [address] | | | | | INTENSIVE CARE UNIT | [place] [address] | | | 07/22/ | | [address] | [phone] | | | 2005 | | [place], [place] | | | | | | [address] | | | | | | [phone] | | | +--------+ + + + [...] | | | | | [place] | | | | | | [address] | | | | | | | | +--------+---------+ + + + documented as of this encounter Visit Diagnoses Not on filedocumented in this encounter"
--- OUTSIDE RECORDS SUMMARY | ~2019-06-03 | XMS | Encounter Summary ---
Demographics + + + | Address | [address] | | | [place] [address] | + + + | Home Phone [...] | | | | [place], [place] [address] | | + + + + + | Juana Gasca | ECON | [address] | | | | | [place] | | | | | [address] | | + + + + + | Juana Gasca | ECON | Unknown | | + + + + + Care Team Providers + +------+ + | Care Operator Cavity Pump Name | Role | Phone | + [...] | | | | | [place] [address] | | | | | | [phone] | | | +--------+ + + + [...] | | | | | [place], [place] | | | | | | [address] | | | | | | | | +--------+---------+ + + + documented as of this encounter Visit Diagnoses Not on filedocumented in this encounter"
--- OUTSIDE RECORDS SUMMARY | ~2019-06-03 | XMS | Encounter Summary ---
Demographics + + + | Address | [address] | | | [place] [address] | + + + | Home Phone [...] | | | | [place] [address] | | + + + + + | Juana Gasca | ECON | [address] | | | | | [place] | | | | | [address] | | + + + + + | Juana Gasca | ECON | Unknown | | + + + + + Care Team Providers + +------+ + | Care Instructor Apparel Manufacture Name | Role | Phone | + +------+ + PCP | Unavailable | + +------+ + Encounter Details +--------+ + + + + | Date | Type | Department | Care Team | Description | +--------+ + + + + | 05/04/ | Hospital | [facility] | Jeremías Baum MD | | | 2006 | Encounter | MED CTR MP INTRA OP | [address] [facility] | | | | | [address] | [place], [place] | | | | | [place] | [address] | | | | | [address] | [phone] | | | | | [phone] | | | +--------+ + + + [...] | | | | | [place] | | | | | | [address] | | | | | | | | +--------+---------+ + + + documented as of this encounter Visit Diagnoses Not on filedocumented in this encounter"
--- OUTSIDE RECORDS SUMMARY | ~2019-06-03 | XMS | Encounter Summary ---
Demographics + + + | Address | [address] | | | [place] [address] | + + + | Home Phone [...] | | | | [place] [address] | | + + + + + | Juana Ventura | ECON | [address] | | | | | [place] | | | | | [address] | | + + + + + | Juana Ventura | ECON | Unknown | | + + + + + Care Team Providers + +------+ + | Care Diesel Power Mechanic Name | Role | Phone | + +------+ + PCP | Unavailable | + +------+ + Encounter Details +--------+ + + + + | Date | Type | Department | Care Team | Description | +--------+ + + + + | 11/05/ | Hospital | [facility] | Jin Epps MD | Aortic Valve | | 2008 | Encounter | [facility] | [address] | Disorder | | | | CLINICAL DECISION | [place] [address] | | | | | UN[address] [facility] | [phone] | | | | | [place], [place] | | | | | | [address] | | | | | | [phone] | | | +--------+ + + + [...] | | | | | [place], [place] | | | | | | [address] | | | | | | | [...] Performed At | + + + | [id number] | | | Page [address] [facility] NAME: | | | [place] [address] MEDICAL RECORD #: | | | [id number] | | | DATE OF : 1935 ORDER | | | NUMBER: [id number] EXAM DATE/TIME: 11/05/2008 13:07 PERFORMING | | [...] pericardium is normal. | | | MEASUREMENTS National Flatbed Truck Driver: CM Authenticated | | | by: Jin Epps MD Report Date/Time: 11-06-2008 17:11:22 | | + + + + + | Procedure Note | + + | Raudel Aguillon - 01/28/2019 1:25 AM PDT [id number] | | Page [address] [place] [address] NAME: [place], | | [place] [address] : ACCOUNT #: | | [id number]: DATE OF : 1935ORDER NUMBER: | | [id number] DATE/TIME: 11/05/2008 13:07PERFORMING PHYSICIAN: Jin Epps MDORDER [...] The pericardium is normal. MEASUREMENTS | | National Flatbed Truck Driver: STEFANIEuthenticated by: Jin [facility] Date/Time: 11-06-2008 17:11:22 | |Right Ventricle: The [...] | |MEASUREMENTS | | | | | |National Flatbed Truck Driver: CM | |Authenticated by: Jin Epps MD | |Report Date/Time: 11-06-2008 17:11:22 | + + documented in this encounter Visit Diagnoses + + | Diagnosis | + + | Aortic valve disorder Aortic valve disorders | + + documented in this encounter"
--- OUTSIDE RECORDS SUMMARY | ~2019-06-03 | XMS | Encounter Summary ---
Demographics + + + | Address | [address] | | | [place] [address] | + + + | Home Phone [...] | | | | [place], [place] [address] | | + + + + + | Juana Gasca | ECON | [address] | | | | | [place] | | | | | [address] | | + + + + + | Juana Gasca | ECON | Unknown | | + + + + + Care Team Providers + +------+ + | Care Printing Shop Supervisor Name | Role | Phone | [...] + + | 10/19/ | Telephone | [facility] | Cassidy Xavier, | Other | | 2012 | | PULMONARY [address] | RN | | | | | [place], | | | | | | [place] [address] | | | | | | [phone] | | | +--------+ + + + [...] | | | | | [place], [place] | | | | | | [address] | | | | | | | | +--------+---------+ + + + documented as of this encounter Visit Diagnoses Not on filedocumented in this encounter"
--- OUTSIDE RECORDS SUMMARY | ~2019-06-03 | XMS | Encounter Summary ---
Demographics + + + | Address | [address] | | | [place] [address] | + + + | Home Phone [...] | | | | [place] [address] | | + + + + + | Juana Gasca | ECON | [address] | | | | | [place] | | | | | [address] | | + + + + + | Juana Gasca | ECON | Unknown | | + + + + + Care Team Providers + +------+ + | Care Passport Support Associate Name | Role | Phone | + +------+ + PCP | Unavailable | + +------+ + Encounter Details +--------+ + + + + | Date | Type | Department | Care Team | Description | +--------+ + + + + | 07/16/ | Hospital | [facility] | Enrique Graf, | VITREOUS HEMORRHAGE | | 2001 | Encounter | [facility] | MD Garber [address] | ([facility]) | | | | OUTPATIENT | [place], [place] | | | | | PROCEDURES [address] | [id number] | | | | | [address] | | | | | | [place], [place] | | | | | | [address] | | | | | | [phone] | | | +--------+ + + + [...] | | | | | [place], [place] | | | | | | [address] | | | | | | | | +--------+---------+ + + + documented as of this encounter Visit Diagnoses + + | Diagnosis | + + | Vitreous hemorrhage (HCC) Vitreous hemorrhage | + + documented in this encounter"
--- OUTSIDE RECORDS SUMMARY | ~2019-06-03 | XMS | Encounter Summary ---
Demographics + + + | Address | [address] | | | [place] [address] | + + + | Home Phone [...] | | | | [place], [place] [address] | | + + + + + | Juana Gasca | ECON | [address] | | | | | [place] | | | | | [address] | | + + + + + | Juana Gasca | ECON | Unknown | | + + + + + Care Team Providers + +------+ + | Care Inside Phone Sales Name | Role | Phone | + +------+ + | Timo Lorenzana | PCP | | | MD | | | + +------+ + Encounter Details +--------+ + + + + | Date | Type | Department | Care Team | Description | +--------+ + + + + | 02/05/ | Hospital | [facility] | Conversion | Pain | | 2016 | Encounter | CONVERSION DEP [address] | Transaction, | | | | | [address] | Provider Unknown | | | | | [place], [place] | [phone] | | | | | [address] | | | | | | [phone] | | | +--------+ + + + [...] [place] | | | | | | [address] | | | | | | | [...]
--- OUTSIDE RECORDS SUMMARY | ~2019-06-03 | XMS | Encounter Summary ---
Demographics + + + | Address | [address] | | | [place] [address] | + + + | Home Phone [...] | | | | [place] [address] | | + + + + + | Juana Gasca | ECON | [address] | | | | | [place] | | | | | [address] | | + + + + + | Juana Gasca | ECON | Unknown | | + + + + + Care Team Providers + +------+ + | Care Chemistry Faculty Member Name | Role | Phone | + +------+ + PCP | Unavailable | + +------+ + Encounter Details +--------+ + + + + | Date | Type | Department | Care Team | Description | +--------+ + + + + | 03/07/ | Abstract | [facility] | Abhinav, | | | 2011 | | Group - [place] | Florence You MD | | | | | Administration [address] | | | | | | [address] | | | | | | [place] | | | | | | [address] | | | | | | [phone] | | | +--------+ + + + [...] [place] | | | | | | [address] | | | | | | | | +--------+---------+ + + + documented as of this encounter Visit Diagnoses Not on filedocumented in this encounter"
--- OUTSIDE RECORDS SUMMARY | ~2019-06-03 | XMS | Encounter Summary ---
Demographics + + + | Address | [address] | | | [place] [address] | + + + | Home Phone [...] | | | | [place], [place] [address] | | + + + + + | Juana Gasca | ECON | [address] | | | | | [place] | | | | | [address] | | + + + + + | Juana Gasca | ECON | Unknown | | + + + + + Care Team Providers + +------+ + | Care Communications Senior Associate Name | Role | Phone | [...] apnea on BiPAP | | | | [place], | | | | | | [place] [address] | | | | | | [phone] | | | +--------+ + + + [...] | | | | | [place], [place] | | | | | | [address] | | | | | | | | +--------+---------+ + + + documented as of this encounter Visit Diagnoses + + | Diagnosis | + + | Obstructive sleep apnea on BiPAP Obstructive sleep apnea (adult) (pediatric) | + + documented in this encounter"
--- OUTSIDE RECORDS SUMMARY | ~2019-06-03 | XMS | Encounter Summary ---
Demographics + + + | Address | [address] | | | [place] [address] | + + + | Home Phone [...] | | | | [place], [place] [address] | | + + + + + | Juana Gasca | ECON | [address] | | | | | [place] | | | | | [address] | | + + + + + | Juana Gasca | ECON | Unknown | | + + + + + Care Team Providers + +------+ + | Care Celery Packer Name | Role | Phone | [...] | | | | | [place] [address] | | | | | | [phone] | | | +--------+--------+ + + + [...] [place] | | | | | | [address] | | | | | | | | +--------+---------+ + + + documented as of this encounter Visit Diagnoses Not on filedocumented in this encounter"
--- OUTSIDE RECORDS SUMMARY | ~2019-06-03 | XMS | Encounter Summary ---
Demographics + + + | Address | [address] | | | [place] [address] | + + + | Home Phone [...] | | | | [place], [place] [address] | | + + + + + | uJana Gasca | ECON | [address] | | | | | [place] | | | | | [address] | | + + + + + | Juana Gasca | ECON | Unknown | | + + + + + Care Team Providers + +------+ + | Care Student Teacher Name | Role | Phone | [...] | | | | | [place] [address] | | | | | | [phone] | | | +--------+ + + + [...] | | | | | [place], [place] | | | | | | [address] | | | | | | | | +--------+---------+ + + + documented as of this encounter Visit Diagnoses Not on filedocumented in this encounter"
[~2019-06-03 21:26] MED LIST changes: +FLOMAX0.4 MG PO
--- OUTSIDE RECORDS SUMMARY | 2019-06-03 21:30 | XMS ---
PreManage Notification: DENISE GREEN Security Affirmative Action Specialist Events No recent Security Events currently on file CRITERIA MET - Group Notification CARE PROVIDERS MED TIWARI [facility] 01/08/2018-Current PHONE: Unknown Orlando Su Primary [facility] Donell [facility] PHONE: Unknown sarah Case or Supervisor Current PHONE: Unknown Winifred Hollins Current Orthopedic Surgery \T\ Fracture [facility] PHONE: Unknown Tonya has no Care Guidelines for this patient. Angel VISIT COUNT (12 MO.) 4 MORIAH Mccloud TOTAL 4 NOTE: Visits indicate total known visits. ED/UCC VISIT TRACKING (12 MO.) 06/03/2019 21:27 [place] TYPE: Emergency COMPLAINT: - ELBOW SWELLING/PAIN/NON INJURY 12/27/2018 18:53 [place] TYPE: Emergency COMPLAINT: - URINE PROBLEM DIAGNOSES: - Personal history of nicotine dependence - Allergy status to oth drug/meds/biol subst status - Allergy status to sulfonamides status - Frequency of micturition - long term (current) use of aspirin - Personal history of urinary calculi - Dysuria - Other usp (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 - Presence of cardiac pacemaker - 1 Type 2 diabetes mellitus without complications - Allergy status to other antibiotic agents status - intermediate (current) use of anticoagulants 10/20/2018 10:54 [place] TYPE: Emergency COMPLAINT: - URINE ISSUE DIAGNOSES: - long term (current) use of oral hypoglycemic drugs - Presence of cardiac pacemaker - Personal history of urinary calculi - intermediate (current) use of aspirin - Allergy status to other antibiotic agents status - Allergy status to oth drug/meds/biol subst status - Cutaneous abscess of groin - Sebaceous cyst - Chronic obstructive pulmonary disease, unspecified - 1 Type 2 diabetes mellitus without complications - Personal history of nicotine dependence - Other director appointment (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 - long term (current) use of anticoagulants - Allergy status to sulfonamides status - Presence of coronary angioplasty implant and graft 08/19/2018 11:36 [place] TYPE: Emergency COMPLAINT: - FLU SYMPTOMS INPATIENT VISIT TRACKING (12 MO.) 08/19/2018 11:37 [place] TYPE: Observation COMPLAINT: - COPD EXASPERATION DIAGNOSES: - Hypothyroidism, unspecified - Presence of coronary angioplasty implant and graft - Athscl heart disease of [place] coronary artery w/o ang pctrs - 1 Hyp hrt \T\ chr kdny dis w hrt fail and stg 1-4/unsp chr kdny - intermediate (current) use of inhaled steroids - Hyperlipidemia, unspecified - Other usp (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 - Personal history of nicotine dependence - 1 Chronic kidney disease, stage 3 (moderate) - 1 Type 2 diabetes mellitus w diabetic chronic kidney disease - Shortness of breath - Chronic obstructive pulmonary disease w (acute) exacerbation - long term (current) use of anticoagulants - Gastro-esophageal reflux disease without esophagitis - Non-ST elevation (NSTEMI) myocardial infarction - Presence of prosthetic heart valve - Flu due to oth ident influenza virus w oth resp manifest - Allergy status to oth drug/meds/biol subst status - long term (current) use of oral hypoglycemic drugs - Unspecified atrial fibrillation - Chronic diastolic (congestive) heart failure - long term (current) use of aspirin - Presence of cardiac pacemaker - Allergy status to sulfonamides status [email or web address]
[2019-06-03] MEDS ORDERED: NORCO 5-325 TA1 EACH PO (22:22)
[2019-06-03] MEDS ORDERED: DOXYCYCLINE HY100 MG PO (22:22)
== END 2019-06-03 23:02 | disposition home or self-care (01) ==
LOC: ED 21:26
DX: M70.21 Olecranon bursitis, right elbow (principal); E11.9 Type 2 diabetes mellitus without complications; J44.9 Chronic obstructive pulmonary disease, unspecified; Z87.442 Personal history of urinary calculi; Z88.8 Allergy status to other drugs, medicaments and biological substances; Z88.2 Allergy status to sulfonamides; Z79.899 Other long term (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; Z79.01 Long term (current) use of anticoagulants; Z79.51 Long term (current) use of inhaled steroids; Z79.82 Long term (current) use of aspirin; Z79.84 Long term (current) use of oral hypoglycemic drugs
CPT/HCPCS: 99283

== ENCOUNTER 2019-09-17 19:56 | Emergency (ER) | payer MEDICARE ==
[~2019-09-17] VITALS: Ht 185.4 cm; Wt 108.2 kg
--- OUTSIDE RECORDS SUMMARY | 2019-09-17 19:58 | XMS ---
PreManage Notification: DENISE GRENE Security Voicer Events No recent Security Events currently on file CRITERIA MET - Group Notification CARE PROVIDERS MED TIWARI [facility] 01/08/2018-Current PHONE: [phone] Tonya has no Care Guidelines for this patient. Angel VISIT COUNT (12 MO.) 4 [facility] TOTAL 4 NOTE: Visits indicate total known visits. ED/UCC VISIT TRACKING (12 MO.) 09/17/2019 19:57 [facility] [place] TYPE: Emergency COMPLAINT: - LACERATION 06/03/2019 21:27 [facility] [place] TYPE: Emergency COMPLAINT: - ELBOW SWELLING/PAIN/NON INJURY DIAGNOSES: - Pain in left elbow - Type 2 diabetes mellitus without complications - long-term (current) use of oral hypoglycemic drugs - Other director long term care (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 - Allergy status to other drugs, medicaments and biological sub - Allergy status to sulfonamides status - Personal history of urinary calculi - Chronic obstructive pulmonary disease, unspecified - Olecranon bursitis, right elbow - long-term (current) use of anticoagulants - meterman (current) use of inhaled steroids - meterman (current) use of aspirin 12/27/2018 18:53 [facility] [place] TYPE: Emergency COMPLAINT: - URINE PROBLEM DIAGNOSES: - Personal history of nicotine dependence - Allergy status to other drugs, medicaments and biological sub - Allergy status to sulfonamides status - Frequency of micturition - meterman (current) use of aspirin - Personal history of urinary calculi - Dysuria - Other alf (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 - Presence of cardiac pacemaker - Type 2 diabetes mellitus without complications - Allergy status to other antibiotic agents status - meterman (current) use of anticoagulants 10/20/2018 10:[address] [facility] [place] TYPE: Emergency COMPLAINT: - URINE ISSUE DIAGNOSES: - meterman (current) use of oral hypoglycemic drugs - Presence of cardiac pacemaker - Personal history of urinary calculi - long-term (current) use of aspirin - Allergy status to other antibiotic agents status - Allergy status to other drugs, medicaments and biological sub - Cutaneous abscess of groin - Sebaceous cyst - Chronic obstructive pulmonary disease, unspecified - Type 2 diabetes mellitus without complications - Personal history of nicotine dependence - Other director long term care (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 - meterman (current) use of anticoagulants - Allergy status to sulfonamides status - Presence of coronary angioplasty implant and graft INPATIENT VISIT TRACKING (12 MO.) No inpatient visits to display in this time frame [email or web address]
[2019-09-17] MEDS ORDERED: CINNAMON500 MG PO (20:56)
== END 2019-09-17 21:07 | disposition home or self-care (01) ==
LOC: ED 19:56
DX: S91.115A Laceration without foreign body of left lesser toe(s) without damage to nail, initial encounter (principal); E11.9 Type 2 diabetes mellitus without complications; J44.9 Chronic obstructive pulmonary disease, unspecified; Z87.891 Personal history of nicotine dependence; Z88.1 Allergy status to other antibiotic agents; Z79.899 Other long term (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; W25.XXXA Contact with sharp glass, initial encounter
CPT/HCPCS: 12001; 99283-25

== ENCOUNTER 2019-12-07 21:14 | Inpatient (IN) | payer MEDICARE, OTHER ==
[~2019-12-07] VITALS: Ht 185.4 cm; Wt 100.0 kg
--- OUTSIDE RECORDS SUMMARY | ~2019-12-07 | XMS | Encounter Summary ---
Demographics + + + | Address | [address] | | | [place] [address] | + + + | Home Phone | | + + + | Preferred Language | Unknown | + + + | Marital Status | | + + + | Sikhism Affiliation | 1013 | + + + | Race | Unknown | + + + | Ethnic Group | Unknown | + + + Author + + + | Author | [facility] | | | and [place] | + + + | Organization | [facility] | | | and [place] | + + + | Address | Unknown | + + + | Phone | Unavailable | + + + Support + + + + + | Name | Relationship | Address | Phone | + + + + + | Frances Gasca | ECON | NA | | | | | [place] [address] | | + + + + + | Juana Gasac | ECON | [address] | | | | | [place] | | | | | [address] | | + + + + + | Chad Gasca | ECON | Unknown | | + + + + + Care Team Providers + +------+ + | Care Needle Loom Operator Name | Role | Phone | + +------+ + | Timo Lorenzana | PCP | | | MD | | | + +------+ + Reason for Visit +--------+--------+ + | Reason | Onset | Comments | | | Date | | +--------+--------+ + | Other | 10/19/ | | | | 2012 | | +--------+--------+ + Encounter Details +--------+ + + + + | Date | Type | Department | Care Team | Description | +--------+ + + + + | 10/19/ | Telephone | [facility] | Cassidy Xavier, | Other | | 2012 | | PULMONARY [address] | RN | | | | | [place], | | | | | | [place] [address] | | | | | | [phone] | | | +--------+ + + + + Social History + + + +--------+ + | Tobacco Use | Types | Packs/Day | Years | Date | | | | | Used | | + + + +--------+ + | Former Smoker | Cigarettes | 3.5 | 40 | Quit: 07/22/1990 | + + + +--------+ + + +---+---+---+ | Smokeless Tobacco: | | | | | Never Used | | | | + +---+---+---+ + + | Comments: 80 pack-year | + + + + +---------+ + | Alcohol Use | Drinks/Week | oz/Week | Comments | + + +---------+ + | Yes | | | 1 drink in the | | | | | evening | + + +---------+ + + + + | Sex Assigned at | Date Recorded | | | | + + + | Not on file | | + + + documented as of this encounter Miscellaneous Notes Telephone Encounter - Cassidy Xavier RN - 10/19/2012 3:31 PM PDTCalled Serge and asked per Dr La if he wanted a follow up as she received an ER report from [facility]. He states that he is feeling better and will come in Sept as recommended and call sooner if ne eded. documented in t his encounter Plan of Treatment +--------+ + + + + | Date | Type | Specialty | Care Team | Description | +--------+ + + + + | 03/09/ | Procedure | Cardiology | | | | 2019 | visit | | | | +--------+ + + + + | 05/06/ | Office | Cardiology | Elif Hylton, | | | 2019 | Visit | | [address] | | | | | | [place] | | | | | | [address] | | | | | | | [...]
--- OUTSIDE RECORDS SUMMARY | ~2019-12-07 | XMS | Encounter Summary ---
Demographics + + + | Address | [address] | | | [place] [address] | + + + | Home Phone | | + + + | Preferred Language | Unknown | + + + | Marital Status | | + + + | Mormonism Affiliation | 1013 | + + + | Race | Unknown | + + + | Ethnic Group | Unknown | + + + Author + + + | Author | [facility] | | | and [place] | + + + | Organization | [facility] | | | and [place] | + + + | Address | Unknown | + + + | Phone | Unavailable | + + + Support + + + + + | Name | Relationship | Address | Phone | + + + + + | Frances Gasca | ECON | NA | | | | | [place] [address] | | + + + + + | Juana Gasca | ECON | [address] | | | | | [place] | | | | | [address] | | + + + + + | Chad Gasca | ECON | Unknown | | + + + + + Care Team Providers + +------+ + | Care Reliability Manager Name | Role | Phone | + +------+ + | Timo Lorenzana | PCP | | | MD | | | + +------+ + Reason for Visit + +--------+ + | Reason | Onset | Comments | | | Date | | + +--------+ + | Appointment | 07/11/ | YEARLY FOLLOW UP | | | 2016 | | + +--------+ + Encounter Details +--------+ + + + + | Date | Type | Department | Care Team | Description | +--------+ + + + + | 07/11/ | Telephone | [facility] | Abhinav, | Appointment (YEARLY | | 2016 | | PULMONARY [address] | Florence You MD | FOLLOW UP) | | | | [place], | | | | | | [place] [address] | | | | | | [phone] | | | +--------+ + + + [...] this encounter Miscellaneous Notes Telephone Encounter - Alycia Monroy - 07/11/2016 2:18 PM PSTPatient does not wish to sc hedule with the [facility] 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 Electronically sig mark by Alycia Monroy at 07/11/2016 2:19 PM PSTdocumented in this encounter Plan of Treatment +--------+ [...] | | 2019 | Visit | | MD Asad [address] | | | | | | [place] | | | | | | [address] | | | | | | | [...]
--- OUTSIDE RECORDS SUMMARY | ~2019-12-07 | XMS | Encounter Summary ---
Demographics + + + | Address | [address] | | | [place] [address] | + + + | Home Phone | | + + + | Preferred Language | Unknown | + + + | Marital Status | | + + + | Protestant Affiliation | 1013 | + + + | Race | Unknown | + + + | Ethnic Group | Unknown | + + + Author + + + | Author | [facility] | | | and [place] | + + + | Organization | [facility] | | | and [place] | + + + | Address | Unknown | + + + | Phone | Unavailable | + + + Support + + + + + | Name | Relationship | Address | Phone | + + + + + | Frances Ventura | ECON | NA | | | | | [place] [address] | | + + + + + | Juana Ventura | ECON | [address] | | | | | [place] | | | | | [address] | | + + + + + | Chad Ventura | ECON | Unknown | | + + + + + Care Team Providers + +------+ + | Care Internet Marketing Director Name | Role | Phone | + +------+ + PCP | Unavailable | + +------+ + Encounter Details +--------+ + + + + | Date | Type | Department | Care Team | Description | +--------+ + + + + | 08/27/ | Hospital | [facility] | Gabriel Davila, | | | 2007 - | Encounter | [facility] | MD [address] | | | | | CARDIAC TELEMETRY | [address] [address] | | | 08/30/ | | [address] | [place] [address] | | | 2007 | | [place] | [phone] | | | | | [address] | | | | | | [phone] | | | +--------+ + + + + Social History + +-------+ +--------+------+ | Tobacco Use | Types | Packs/Day | Years | Date | | | | | Used | | + +-------+ +--------+------+ | Never Assessed | | | | | + +-------+ +--------+------+ + + + | Sex Assigned at | Date Recorded | | | | + + + | Not on file | | + + + documented as of this encounter Discharge Summaries Gabriel Davila MD - 04/10/2013 4:15 PM PSTPATIENT NAME: Serge Ventura DATE OF ADMISSION: 08/28/2007 AGE/SEX: 72/M DATE OF DISCHAR GE: 08/31/2007 : 1935 DISCHARGE DIAGNOSES: 1. 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 2. Marked infrahisian delay. 3. Pacemaker placement. HISTORY: The patient is a 72-eyar-old patient known to have supraventricular tac hycardia, etiology unclear. He has a 4-year history of intermittent palpitations. Multiple medications have been attempted in the past without completely suppressing him. He has been on digoxin, amiodarone, in addition to beta-blockers. He presents to undergo EP study and possible RF ablation. HOSPITAL COURSE: The patient was taken to the EP laboratory where prolonged and complex EP study with detailed atrial mapping shows either an ectopic atrial tachycardia originating in the region of the AV node, or true junctional ectopic atrial junctional tachycardia. His HV interval was 80 msec and at times a complete infrahisian block with a junctional escape is noted. Brief cryoablation was tried in this region, but it was felt that he would like ly develop complete AV block with further applications of ablative technique. He then under went successful DDD pacemaker placement with a Guidant pacemaker with the anticipation of p resenting back and undergoing RF or cryoablation. He is scheduled for close followup in the office. Gabriel Davila MD P [facility] #[id number] cc: Gabriel Davila MD Segundo VENTURABrianne Wilmer [id number] 08/31/07 DIS IN [id number] DISCHARGE SUMMARY Gabriel kee MD [facility] THIS REPORT IS CONFIDENTIAL AND NOT TO BE RELEASED WITHOUT PROPER AUTHORIZATION.Electronica lly signed by Gabriel Davila MD at 04/12/2013 5:09 AM PSTdocumented in this encounter Miscellaneous Notes Op Note - Gabriel Davila MD - 04/10/2013 4:15 PM PSTPATIENT NAME: Serge Ventura Age/Sex: 72/M SURGEON: Sudhir Davila MD SURGERY DATE: 08/30/2007 COSURGEON: 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 Electrophysiology study. 2. Three-dimensional mapping. 3. Cryoablation. DESCRIPTION OF PROCEDURE: The patient was brought to the electrophysiology study in a postprandial, nonsedated state . The right and left femoral groins were prepped in the usual sterile fashion. Two right venous and two left venous femoral sheaths were placed. The catheter was placed in the hig h right atrium, coronary sinus, His bundle region, and right ventricle. In addition, there was a detailed 3-dimensional mapping performed using the NavX system. Electrograms and el ectrical anatomical mapping figures are stored in the patient's electrophysiology folder. FINDINGS: At onset of the electrophysiology study, there is a supraventricular tachycardia with an A 1:A1 interval of 280 msec. With rapid atrial pacing, this degenerated into atrial fibrilla tion. The patient underwent cardioversion using direct current shock back to what turned o ut to be an ectopic atrial arrhythmia. After cardioversion, the A1:A1 interval would vary from 480 msec to 510 msec. It was during this tachycardia, that detail atrial mapping was performed and the earliest atrial electrogram during his arrhythmia consistently came from the AV node region and no atrial electrogram could be found earlier than the proximal His atrial electrogram. There was detailed and very close mapping in this region. In additio n, all the coronary sinus electrograms were later. The tachycardia did not change with staci nosine 12 and subsequently 18 mg IV. The patient did developed a complete AV block during infusion of adenosine. Cryo catheter was placed in the region of the AV junction that show ed the earliest atrial potential. This region was cooled to -30 degrees but without signi ficant change in his tachycardia. Multiple sites in this region were evaluated and at no t pablo did the tachycardia change with the application of cryo to this region. The baseline intervals showed AH of 160 msec and HV of 80 msec suggesting significant His Purkinje system delay. CONCLUSIONS: 1. Infra-Hisian disease as manifested by markedly prolonged HV interval. 2. Ectopic atrial tachycardia in the region of the AV node or possibly a junctional ectopic atrial tachycardia. 3. Application of cryoblation to this area did not effect the tachycardia. Segundo VENTURA [id number] 08/31/07 DIS IN [id number] OPERATIVE REPORT Gabriel kee MD E-SIGN: R [facility] THIS REPORT IS CONFIDENTIAL AND NOT TO BE RELEASED WITHOUT PROPER AUTHORIZATION. [facility] Gabriel Davila MD A [facility] #[id number] cc: Gabriel Davila MD Segundo VENTURA [id number] 08/31/07 [facility] IN [id number] OPERATIVE REPORT Gabriel kee MD E-SIGN: [facility] THIS REPORT IS CONFIDENTIAL AND NOT TO BE RELEASED WITHOUT PROPER AUTHORIZATION.Electronica lly signed by Gabriel Davila MD at 04/12/2013 5:09 AM PSTOp Note - Gabriel Davila MD - 04/10/2013 4:15 PM PSTPATIENT NAME: Serge Ventura Age/Sex: 72/M SURGEON: Sudhir Davila MD SURGERY DATE: 08/30/2007 REFERRING MD: Flako Fortune MD PROCEDURE: 1. DDD pacemaker placement 2. Lead evaluation 3. Cardiac fluoroscopy 4. Subclavian Venogram DIAGNOSIS: 1. SVT Implanted Device Implanted Atrial Lead Implanted Ventricular Lead Implant 08/30/2007 Implant Date 08/30/07 Implant Date 08/29/07 Date Manufacture Fib[employer] Gun [employer] Gun [employer] r Model 1291 Model 1882TC Model 4088 Serial [id number] Serial [id number] Serial [id number] Atrial Lead Measurements Ventricular Lead Measurements P wave .9 mV R wave 13.0 mV Impedance 554 ohms Impedance 880 ohms Threshold V 0.5ms, mA Threshold 1.5V 0.5ms, 1.8mA No leads exhibited diaphragmatic or phrenic nerve stimulation at 10 V. PROCEDURE: The [facility] The left subclavian area is prepped and draped in the usual sterile fashion. Local anesthesia was accomplished with 1% Lidocaine. Continuous heart rate, blood pressure, oxyge n saturation and monitoring were performed throughout the procedure. After local anesthesia, in the left subclavian area, an infraclavicular incision was made with careful dissection down to the pectoralis fascia where the pocket was formed. Bleedin g is controlled. Using fluoroscopic guidance, the right ventricular lead positioned in the right ventricula r and sutured to the pectoralis fascia using 0 silk X 2. An atrial lead was then placed to the right atrial appendage. The leads were then connected to a Guidant pacemaker. The device was seen to sense and pa ce in all chambers appropriately. The device was sutured to the pectoralis fascia using 0 silk. The wound was irrigated with Ancef and then closed using 2-0 Vicryl in a running lay er followed by a second 2-0 Vicryl layer and 4-0 subcuticular layer. The patient tolerated the procedure well and left the laboratory in a stable hemodynamic state to obtain a ches t x-ray. Segundo VENTURA [id number] 08/31/07 DIS IN [id number] OPERATIVE REPORT Gabriel kee MD E-SIGN: [facility] THIS REPORT IS CONFIDENTIAL AND NOT TO BE RELEASED WITHOUT PROPER AUTHORIZATION. [facility] Gabriel Davila MD P DAC/vfb #[id number] cc: Gabriel Davila MD Segundo VENTURA [id number] 08/31/07 DIS IN [id number] OPERATIVE REPORT Gabriel kee MD E-SIGN: [facility] THIS REPORT IS CONFIDENTIAL AND NOT TO BE RELEASED WITHOUT PROPER AUTHORIZATION.Electronica lly signed by Gabriel Davila MD at 04/12/2013 5:09 AM PSTdocumented in this encounter Plan of Treatment [...] [place] | | | | | | [id number] | | | | | | | | +--------+ + + + + | 06/08/ | Procedure | Cardiology | | | | 2020 | visit | | | | +--------+ + + + + | 09/07/ | Procedure | Cardiology | | | | 2021 | visit | | | | +--------+ + + + + documented as of this encounter Visit Diagnoses Not on filedocumented in this encounter"
--- OUTSIDE RECORDS SUMMARY | ~2019-12-07 | XMS | Encounter Summary ---
Demographics + + + | Address | [address] | | | [place] [address] | + + + | Home Phone | | + + + | Preferred Language | Unknown | + + + | Marital Status | | + + + | Tenriism Affiliation | 1013 | + + + | Race | Unknown | + + + | Ethnic Group | Unknown | + + + Author + + + | Author | [facility] | | | and [place] | + + + | Organization | [facility] | | | [...] | | | | [place] [address] | | + + + + + | Juana Gasca | ECON | [address] | | | | | [place] | | | | | [address] | | + + + + + | Chad Gasca | ECON | Unknown | | + + + + + Care Team Providers + +------+ + | Care Musculoskeletal Physician Name | Role | Phone | + +------+ + | Timo Lorenzana | PCP | | | MD | | | + +------+ + Reason for Visit +---------+--------+ + | Reason | Onset | Comments | | | Date | | +---------+--------+ + | Results | 01/07/ | overnight oximetry | | | 2012 | | +---------+--------+ + Encounter Details +--------+ + + + + | Date | Type | Department | Care Team | Description | +--------+ + + + + | 01/07/ | Telephone | [facility] | Cassidy Xavier, | Results (overnight | | 2012 | | PULMONARY [address] | RN | oximetry) | | | | [place], | | | | | | [place] [address] | | | | | | [phone] | | | +--------+ + + + [...] Telephone Encounter - Cassidy Xavier RN - 01/07/2013 1:12 PM PDTCalled Serge and advis ed per Dr La that his O2 decreases with the BIPAP only and would like him to wear O2 at 1 l/m bled into the BIPAP. Okay per Serge. Order sent to [facility].Electronically s igned by Cassidy Xavier RN at 01/07/2013 1:29 PM PDTdocumented in this encounter Plan of Treatment +--------+ + + + + | Date | Type | Specialty | Care Team | Description | +--------+ + + + + | 03/09/ | Procedure | Cardiology | | | | 2019 | visit | | | | +--------+ + + + + | 05/06/ | Office | Cardiology | Concetta Elif, | | | 2019 | Visit | | MD Asad FI[address]DS | | | | | | [place] | | | | | | [id number] | | | | | | | | +--------+ + + + + | 06/08/ | Procedure | Cardiology | | | | 2020 | visit | | | | +--------+ + + + + | 09/07/ | Procedure | Cardiology | | | | 2020 | visit | | | | +--------+ + + + + + + +--------+ + + | Name | Type | Priori | Associated Diagnoses | Order Schedule | | | | ty | | | + + +--------+ + + | Oxygen Therapy | Respiratory | Routin | Obstructive sleep | 1 Occurrences | | | Care | e | apnea (adult) | starting 01/07/2013 | | | | | (pediatric) | until 01/07/2014 | + + +--------+ + + documented as of this encounter Visit Diagnoses + + | Diagnosis | + + | Obstructive sleep apnea (adult) (pediatric) - Primary | + + documented in this encounter"
--- OUTSIDE RECORDS SUMMARY | ~2019-12-07 | XMS | Encounter Summary ---
Demographics + + + | Address | [address] | | | [place] [address] | + + + | Home Phone | | + + + | Preferred Language | Unknown | + + + | Marital Status | | + + + | Bahai Affiliation | 1013 | + + + | Race | Unknown | + + + | Ethnic Group | Unknown | + + + Author + + + | Author | [facility] | | | and [place] | + + + | Organization | [facility] | | | [...] | | | | [place] [address] | | + + + + + | Juana Gasca | ECON | [address] | | | | | [place] | | | | | [address] | | + + + + + | Chad Gasca | ECON | Unknown | | + + + + + Care Team Providers + +------+ + | Care Licensing Coordinator Name | Role | Phone | + +------+ + | Timo Lorenzana | PCP | | | MD | | | + +------+ + Reason for Visit +--------+--------+ + | Reason | Onset | Comments | | | Date | | +--------+--------+ + | Other | 06/30/ | Prevnar 13 | | | 2014 | | +--------+--------+ + Encounter Details +--------+ + + + + | Date | Type | Department | Care Team | Description | +--------+ + + + + | 06/30/ | Telephone | [facility] [place] | Abhinav, | Other (Prevnar 13) | | 2014 | | PULMONARY [address] | Florence You MD | | | | | [place], | | | | | | [place] [address] | | | | | | [phone] | | | +--------+ + + + [...] Telephone Encounter - Cassidy Xavier RN - 07/01/2014 8:24 AM PSTCalled Serge and relay ed this message. Also advised per Dr La that she is recommending that Serge stay on nocturnal O2 at 1 l/m as his O2 sat was below 88% for 23.3 minutes. Order sent to [facility]. elephone Enco unthank - Florence La MD - 06/30/2014 4:35 PM PSTPrescription sent to [facility]. I cannot order for his , she will have to contact her own provider. elephone Encounter - Cassidy Xavier RN - 06/30/2014 4:27 PM PSTLarry called stating that when he was in for follow up Dr Denny garces recommended that he and his Juana get the Prevnar 13 pneumonia shot. They went to [facility] and the pharmacist said that thy need a prescription to send to insurance. Serge is requesting a prescription for he and his . documented in this encounter Plan of Treatment [...] | | | | | [place] | | | | | | [address] | | | | | | | [...] | e | apnea (adult) | starting 07/01/2014 | | | | | (pediatric) | until 07/01/2015 | + + +--------+ + + documented as of this encounter Visit Diagnoses + + | Diagnosis | + + | Obstructive sleep apnea (adult) (pediatric) - Primary | + + documented in this encounter"
--- OUTSIDE RECORDS SUMMARY | ~2019-12-07 | XMS | Encounter Summary ---
Demographics + + + | Address | [address] | | | [place] [address] | + + + | Home Phone | | + + + | Preferred Language | Unknown | + + + | Marital Status | | + + + | Buddhism Affiliation | 1013 | + + + | Race | Unknown | + + + | Ethnic Group | Unknown | + + + Author + + + | Author | [facility] | | | and [place] | + + + | Organization | [facility] | | | and [place] | + + + | Address | Unknown | + + + | Phone | Unavailable | + + + Support + + + + + | Name | Relationship | Address | Phone | + + + + + | Frances Ventura | ECON | NA | | | | | [place] [address] | | + + + + + | Juana Ventura | ECON | [address] | | | | | [place] | | | | | [address] | | + + + + + | Chad Ventura | ECON | Unknown | | + + + + + Care Team Providers + +------+ + | Care Buncher Hand Name | Role | Phone | + +------+ + PCP | Unavailable | + +------+ + Encounter Details +--------+ + + + + | Date | Type | Department | Care Team | Description | +--------+ + + + + | 08/27/ | Hospital | [facility] | Gabriel Davila, | | | 2007 - | Encounter | [facility] | MD [address] | | | | | CARDIAC TELEMETRY | [address] | | | 08/30/ | | [address] | [place] [address] | | | 2007 | | [place] | [phone] | | | | | [address] | | | | | | [phone] | | | +--------+ + + + [...] in the office. Gabriel Davila MD [facility] #[id number] cc: Gabriel Davila MD Segundo VENTURABrianne Wilmer [id number] 08/31/07 DIS IN Z603-01 [id number] DISCHARGE SUMMARY Gabriel kee MD [facility] THIS REPORT IS CONFIDENTIAL AND NOT TO BE RELEASED WITHOUT PROPER AUTHORIZATION.Electronica lly signed by Gabriel Davila MD at 04/12/2013 5:09 AM PSTdocumented in this encounter Miscellaneous Notes Op Note - Gabriel Davila MD - 04/10/2013 4:15 PM PSTPATIENT NAME: Serge Ventura Age/Sex: 72/M SURGEON: Sudhir Davila MD SURGERY DATE: 08/30/2007 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 Electrophysiology study. 2. Three-dimensional [...] did not effect the tachycardia. Segundo VENTURA [id number] 08/31/07 DIS IN Z603-01 [id number] OPERATIVE REPORT Gabriel kee MD E-SIGN: R [facility] THIS REPORT IS CONFIDENTIAL AND NOT TO BE RELEASED WITHOUT PROPER AUTHORIZATION. [facility] Gabriel Davila MD [facility] #[id number] cc: Gabriel Davila MD Segundo VENTURA [id number] 08/31/07 [facility] IN Z603-01 [id number] OPERATIVE REPORT Gabriel kee MD E-SIGN: R [facility] THIS REPORT IS CONFIDENTIAL AND NOT TO [...] Date 08/30/07 Implant Date 08/29/07 [address] Manufacture [employer] Ere[employer] r Model 1291 Model 1882TC Model 4088 Serial [id number] Serial [id number] Serial [id number] Atrial Lead Measurements Ventricular Lead Measurements P wave .9 mV R wave 13.0 mV Impedance 554 ohms Impedance 880 ohms Threshold V 0.5ms, mA Threshold 1.5V 0.5ms, 1.8mA No leads exhibited diaphragmatic or phrenic nerve stimulation at 10 V. PROCEDURE: The [facility]. The left subclavian area is prepped [...] obtain a ches t x-ray. Segundo VENTURA [id number] 08/31/07 DIS IN Z603-01 [id number] OPERATIVE REPORT Gabriel kee MD E-SIGN: [facility] THIS REPORT IS CONFIDENTIAL AND NOT TO BE RELEASED WITHOUT PROPER AUTHORIZATION. [facility] Gabriel Davila MD P DAC/vfb #[id number] cc: Gabriel Davila MD Segundo VENTURA [id number] 08/31/07 DIS IN Z603-01 [id number] OPERATIVE REPORT Gabriel kee MD E-SIGN: [facility] THIS REPORT IS CONFIDENTIAL AND NOT TO [...] [place] | | | | | | [address] | | | | | | | [...]
--- OUTSIDE RECORDS SUMMARY | ~2019-12-07 | XMS | Encounter Summary ---
Demographics + + + | Address | [address] | | | [place] [address] | + + + | Home Phone | | + + + | Preferred Language | Unknown | + + + | Marital Status | | + + + | Episcopal Affiliation | 1013 | + + + [...] | | | | [place] [address] | | + + + + + | Juana Gasca | ECON | [address] | | | | | [place] | | | | | [address] | | + + + + + | Chad Gasca | ECON | Unknown | | + + + + + Care Team Providers + +------+ + | Care Tour Coordinator Name | Role | Phone | + +------+ + PCP | Unavailable | + +------+ + Encounter Details +--------+ + + + + | Date | Type | Department | Care Team | Description | +--------+ + + + + | 05/04/ | Hospital | [facility] | Jeremías Baum MD | | | 2006 | Encounter | MED CTR MP INTRA OP | [address] [facility] | | | | | [address] | [place] | | | | | [place] | [address] | | | | | [address] | [phone] | | | | | [phone] | | | +--------+ + + + [...] [place] | | | | | | [address] | | | | | | | [...]
--- OUTSIDE RECORDS SUMMARY | ~2019-12-07 | XMS | Encounter Summary ---
Demographics + + + | Address | [address] | | | [place] [address] | + + + | Home Phone | | + + + | Preferred Language | Unknown | + + + | Marital Status | | + + + | Restoration Affiliation | 1013 | + + + | Race | Unknown | + + + | Ethnic Group | Unknown | + + + Author + + + | Author | [facility] | | | and [place] | + + + | Organization | [facility] | | | [...] | | | | [place] [address] | | + + + + + | Juana Gasca | ECON | [address] | | | | | [place] | | | | | [address] | | + + + + + | Chad Gasca | ECON | Unknown | | + + + + + Care Team Providers + +------+ + | Care Patrol Community Service Officer Name | Role | Phone | + +------+ + | Timo Lorenzana | PCP | | | MD | | | + +------+ + Encounter Details +--------+ + + + + | Date | Type | Department | Care Team | Description | +--------+ + + + + | 02/06/ | Hospital | [facility] | Conversion | Diagnosis unknown | | 2015 | Encounter | CONVERSION DEP [address] | Transaction, | | | | | [address] | Provider Unknown | | | | | [place], [place] | | | | | | [address] | (Fax) | | | | | [phone] | | | +--------+ + + + [...] | Daily. | | | 12 | 0 | | 2.5 MG tablet | | [...] twice daily | | | 12 | 0 | | M20 PO) | | | [...] Take 7.5mg | | | 12 | 0 | | tablet | on Monday. Take 10mg | | | | [...] | | | | | [place], [place] | | | | | | [address] | | | | | | | [...] | Procedure Note | + + | Raudel Aguillon - 01/17/2019 10:29 AM PDT This is [...]
--- OUTSIDE RECORDS SUMMARY | ~2019-12-07 | XMS | Encounter Summary ---
Demographics + + + | Address | [address] | | | [place] [address] | + + + | Home Phone | | + + + | Preferred Language | Unknown | + + + | Marital Status | | + + + | Methodist Affiliation | 1013 | + + + | Race | Unknown | + + + | Ethnic Group | Unknown | + + + Author + + + | Author | [facility] | | | and [place] | + + + | Organization | [facility] | | | [...] | | | | [place] [address] | | + + + + + | Juana Gasca | ECON | [address] | | | | | [place] | | | | | [address] | | + + + + + | Chad Gasca | ECON | Unknown | | + + + + + Care Team Providers + +------+ + | Care Photographic Intelligence Officer Name | Role | Phone | + +------+ + | Timo Lorenzana | PCP | | | MD | | | + +------+ + Reason for Visit +--------+ + | Reason | Comments | +--------+ + | Other | 3 month follow up COPD | +--------+ + Encounter Details +--------+---------+ + + + | Date | Type | Department | Care Team | Description | +--------+---------+ + + + | 03/30/ | Office | [facility] [place] | [place], | Hemoptysis (Primary | | 2014 | Visit | PULMONARY [address] | Florence You MD | Dx); COPD (chronic | | | | [place], | | obstructive | | | | [place] [address] | | pulmonary disease); | | | | [phone] | | Obstructive sleep | | | | | | apnea on BiPAP; | | | | | | Nocturnal hypoxemia | | | | | | due to emphysema | | | | | | ([facility]); Type 2 | | | | | | diabetes mellitus | | | | | | without complication | | | | | | (HCC) | +--------+---------+ + + + Social History [...] + + + | Blood Pressure | 140/70 | 03/30/2015 11:22 AM | | | | | PDT | | + + + + + | Pulse | 72 | 03/30/2015 11:22 AM | | | | | PDT | | + + + + + | Temperature | - | - | | + + + + + | Respiratory Rate | 16 | 03/30/2015 11:22 AM | | | | | PDT | | + + + + + | Oxygen Saturation | 96% | 03/30/2015 11:22 AM | | | | | PDT | | + + + + + | Inhaled Oxygen | - | - | | | Concentration | | | | + + + + + | Weight | 124.3 kg (274 lb) | 03/30/2015 11:22 AM | | | | | PDT | | + + + + + | Height | 182.9 cm (6') | 03/30/2015 11:22 AM | | | | | PDT | | + + + + + | Body Mass Index | 37.16 | 03/30/2015 11:22 AM | | | | | PDT | | + + + + + documented in this encounter Patient Instructions Patient Instructions Florence La MD - 03/30/2015 12:10 PM PDTI want you to start doing the treadmill for 10 minutes 5 days a week. No excuses. Schedule it in your schedule whenever works for you. Decrease Advair to the 100 mcg dose 1 inhalation twice daily. You can wait until you refill it. Stay on the Spiriva. Stay on BiPAP with 1L of oxygen. [facility] mehreen Riddle t 03/30/2015 12:24 PM PDT documented in this encounter Progress Notes Florence La MD - 03/30/2015 11:23 AM PDTFormatting of this note might be differe nt from the original. Pulmonary Follow Up HPI Serge Gasca is a 80 y.o. male patient of Timo Lorenzana MD here today for fo llow up of COPD. At their last visit, we had continued him and Spiriva. Since their last visit he feels like he has been doing okay. He was sick a couple of weeks ago and called in. I had asked him t o do a chest x-ray in [place], but he felt like he was doing okay. He is currently on a regimen of Advair twice daily and Spiriva once daily. He does feel li ke this medication regimen is working for them. Currently he is using his rescue inhaler, al buterol, 1 times a week. He is using his nebulizer, albuterol, 2 times a day. He returns to [facility] for routine follow up. Currently he is able to walk 2-3 blocks, maybe 4 blocks at his own pace on level ground. He is not exercising regularly. He notes the main exercise he is getting right now is walking around the store. He is coughing some, but no more than usual at this point. His cough worsened briefly when he was sick, but seems He did have some hemoptysis a couple of weeks ago when he was feelin g sick. He is still using his BiPAP at night. He is not having any issues with this. He has 1L of o xygen with this. He does not have symptoms of heartburn or reflux. He has not had a bloody nose at all. He is concerned that the Advair is elevating his blood sugars. He notes that if he eats ice cream in the evenings, his blood sugar will still be elevated in the morning, instead of go ing down by then. Past Medical History Past Medical History Diagnosis [...] Past Surgical History Past Surgical History Procedure Laterality Date Mitral valve replacement/repair 1995 titanium alloy valve Turp 2007 Back surgery lower back x2 Hernia repair x3 Rotator cuff repair Coronary artery stenting x2 Cardiac ablation x2 Pacemaker placement Hemorrhoid surgery Retinal detachment repair Deviated septum repair Ligation of artery in nostril Total hip arthroplasty 2011 Right Cortisone injection Left knee Urethral stricture dilatation multiple, usually a couple times a year Aortic valve replacement/repair 03/10/2014 nicholas Nair, Dr. Elizondo Cardiac catherization 03/09/2014 Bronchoscopy for foreign body removal Social History: History Social History Marital Status: Spouse Name: N/A Number of Children: N/A Years of Education: N/A Social History Main Topics Smoking status: Former Smoker -- 3.50 packs/day for 40 years Types: Cigarettes Quit date: 07/22/1990 Smokeless tobacco: Never Used Comment: 80 pack-year Alcohol Use: Yes Comment: 1 drink in the evening Drug Use: No Sexual Activity: None Other Topics Concern None Social History Narrative Allergies: Allergies Allergen Reactions Metoprolol Succinate Swelling Medications: Outpatient Encounter Prescriptions as of 03/30/2015 Medication Sig Dispense Refill albuterol (PROAIR HFA) 90 mcg/puff inhaler Inhale 2 puffs into the lungs every 4 hours as needed for Shortness of Breath. 3 Inhaler 4 albuterol 2.5 mg/3 mL nebulizer solution In nebulizer every 4 hours as needed for short ness of breath 1080 mL 4 aspirin (ASPIRIN LOW DOSE) 81 MG tablet Take 81 mg by mouth Daily. carvedilol (COREG) 3.125 mg tablet 1/2 tablet twice daily CINNAMON PO Take 1,000 mg by mouth 2 times daily. fluticasone-salmeterol (ADVAIR DISKUS) 250-50 mcg/puff diskus inhaler 1 puff inhaled tw ice daily 3 each 4 Swwbyslwlpe-Kxjvpkwdv-Vjt C-Mn (GLUCOSAMINE 1500 COMPLEX PO) Take 1,500 [...] tablet Take 80 mg by mouth nightly. Respiratory Therapy Supplies [facility] Discontinue nebulizer. Fax to [facility]. 1 each 99 torsemide (DEMADEX) 20 mg tablet Take 40 mg by mouth 2 times daily. warfarin (COUMADIN) 7.5 mg tablet Take 7.5 mg by mouth Daily. Take 7.5mg on Monday and Monday. Take 10mg all other days No facility-administered encounter medications on file as of 03/30/2015. Review of Systems: General: []Weight loss/gain (over 10 lbs) []Fever/chills/sweats []Night sweats EENT: []Hearing loss []Vision loss/change [x]Sinus congestion/nasal drainage []Nosebleeds [ x]Hoarseness Cardiac: []Chest pain []Palpitations/heart racing []Swelling of legs/ankles []Waking up at night s hort of breath []Difficulty sleeping flat Gastrointestinal: []Nausea/vomiting []Difficulty swallowing []Heartburn/acid reflux []Loss of appetite []Abd ominal pain Urologic: []Blood in urine []Frequent urination at night []Burning/painful urination []Difficulty wit h urination Objective BP 140/70 mmHg | Pulse 72 | Resp 16 | Ht 1.829 m (6') | Wt 124.286 kg (274 lb) | BMI 37.15 kg/m2 | SpO2 96% General Appearance: Alert, [...] Heart: Regular rate and rhythm, faint murmur and valve click, no rub or gallop Abdomen: Soft, non-tender, non-distended, obese Extremities: No cyanosis, clubbing, trace bilateral lower extremity edema Pulses: Radial pulses 2+ and symmetric Skin: Warm and dry Lymph nodes: Cervical and supraclavicular nodes normal Data: VPAP Data: Dates: 02/21/2015-03/22/2015 Home Health Company: [facility] Machine type: RespirGuaranteach BiPAP auto IPAP Pressure: 16 cm H2O EPAP Pressure: 11 cm H2O AHI: 0.5 Total number of days: 30 Number of days used: 30 Median daily usage: 6:24 hours Percent of days used for more than 4 hours: 100% Average time in large leak per day: 26 secs Immunization History Administered Date(s) Administered INFLUENZA, HIGH DOSE SEASONAL (ADULT) 01/28/2015 INFLUENZA, TRIVALENT PRESERVATIVE FREE (PED/ADOL/ADULT) 04/18/2012, 02/03/2013, 014 PNEUMOCOCCAL CONJUGATE 13-VALENT (PCV13) 05/01/2014 PNEUMOCOCCAL POLYSACCHARIDE 23-VALENT (PPSV23) 07/19/2009 Assessment ICD-10-CM ICD-9-CM 1. Hemoptysis R04.2 786.30 Recent scant hemoptysis of unclear etiology. Had brief period of cough that came and went. He still thinks he did not have a URI. We will check a chest CT a s last imaging was [address] Chest wo Contrast 2. COPD (chronic obstructive pulmonary disease) J44.9 496 Relatively stable on Advair and S piriva. We will drop the steroid dose on his Advair due to concerns he has related to his bl ood sugar. Recovered from brief cough and smoke issues. Walking was encouraged. 3. Obstructive sleep apnea on BiPAP G47.33 327.23 Good control and compliance. He is also u p to sleeping 6 1/2 hours per night, which is fabulous for him. 4. 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 G47.36 327.26 5. Type 2 diabetes mellitus without complication (HCC) E11.9 250.00 Fairly well controlled. But recently CBGs have been higher. I suspect this is due to nighttime ice cream, and we di scussed diet and exercise. I did, however, drop the dose of his Advair. Plan 1.Check chest CT scan at [facility]. 2.Decrease Advair to 100 mcg dose, 1 inhalation twice daily with next refill. 3.Stay on Spiriva once daily. 4. Increase walking, and schedule treadmill for 10 minutes 5 days weekly. 5. Continue nocturnal BiPAP with 1L oxygen bleed in. He was advised to call if new pulmonary symptoms were to develop. Return to clinic in 4 months, or sooner with concerns. CC: Timo Lorenzana MD Portions of this report were transcribed using voice recognition software. Every effort wa s made to ensure accuracy; however, inadvertent computerized waybill clerk errors may be pre sent. 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
--- OUTSIDE RECORDS SUMMARY | ~2019-12-07 | XMS | Encounter Summary ---
Demographics + + + | Address | [address] | | | [place] [address] | + + + | Home Phone | | + + + | Preferred Language | Unknown | + + + | Marital Status | | + + + | Evangelical Affiliation | 1013 | + + + [...] | | | | [place] [address] | | + + + + + | Juana Gasca | ECON | [address] | | | | | [place] | | | | | [address] | | + + + + + | Chad Gasca | ECON | Unknown | | + + + + + Care Team Providers + +------+ + | Care Redrawer Name | Role | Phone | + +------+ + | Timo Lorenzana | PCP | | | MD | | | + +------+ + Encounter Details +--------+ + + + + | Date | Type | Department | Care Team | Description | +--------+ + + + + | 12/27/ | Orders Only | [facility] | Provider, | | | 2018 | | SYSTEM GENERIC OP | [address] | | | | | [address] | [place]sie [place] | | | | | [address] [place], [place] | [place] [address] | | | | | [address] | | | | | | [phone] | | | +--------+ + + + [...] [place] | | | | | | [address] | | | | | | | [...]
--- OUTSIDE RECORDS SUMMARY | ~2019-12-07 | XMS | Encounter Summary ---
Demographics + + + | Address | [address] | | | [place] [address] | + + + | Home Phone | | + + + | Preferred Language | Unknown | + + + | Marital Status | | + + + | Bahai Affiliation | 1013 | + + + | Race | Unknown | + + + | Ethnic Group | Unknown | + + + Author + + + | Author | [facility] | | | and [place] | + + + | Organization | [facility] | | | [...] | | | | [place] [address] | | + + + + + | Juana Gasca | ECON | [address] | | | | | [place] | | | | | [address] | | + + + + + | Chad Gasca | ECON | Unknown | | + + + + + Care Team Providers + +------+ + | Care Demographer Name | Role | Phone | + +------+ + | Timo Lorenzana | PCP | | | MD | | | + +------+ + Encounter Details +--------+ + + + + | Date | Type | Department | Care Team | Description | +--------+ + + + + | 02/19/ | Orders Only | [facility] [place] | [place], | | | 2012 | | PULMONARY [address] | Florence You MD | | | | | [place], | | | | | | [place] [address] | | | | | | [phone] | | | +--------+ + + + [...] documented as of this encounter Miscellaneous Notes Addendum Note - Kassidy Stevens RN - 02/19/2013 2:07 PM PDT Addended by: KASSIDY STEVENS on: 02/19/2013 14:07 Modules accepted: Orders documented in this en counter Plan of Treatment +--------+ + + + + | Date | Type | Specialty | Care Team | Description | +--------+ + + + + | 03/09/ | Procedure | Cardiology | | | | 2019 | visit | | | | +--------+ + + + + | 05/06/ | Office | Cardiology | Elif Hylton, | | | 2020 | Visit | | [address] | | | | | | [place] | | | | | | [address] | | | | | | | [...]
--- OUTSIDE RECORDS SUMMARY | ~2019-12-07 | XMS | Encounter Summary ---
Demographics + + + | Address | [address] | | | [place] [address] | + + + | Home Phone | | + + + | Preferred Language | Unknown | + + + | Marital Status | | + + + | Yarsani Affiliation | 1013 | + + + | Race | Unknown | + + + | Ethnic Group | Unknown | + + + Author + + + | Author | [facility] | | | and [place] | + + + | Organization | [facility] | | [...] | | | | [place] [address] | | + + + + + | Juana Gasca | ECON | [address] | | | | | [place] | | | | | [address] | | + + + + + | Chad Gasca | ECON | Unknown | | + + + + + Care Team Providers + +------+ + | Care Saddle Lining Stitcher Name | Role | Phone | + [...] Description | +--------+--------+ + + + | 02/08/ | Refill | [facility] [place] | Abhinav, | Medication Refill | | 2016 | | PULMONARY [address] | Florence You MD | | | | | [place], | | | | | | [place] [address] | | | | | | [phone] | | | +--------+--------+ + + + [...] [place] | | | | | | [address] | | | | | | | [...]
--- OUTSIDE RECORDS SUMMARY | ~2019-12-07 | XMS | Encounter Summary ---
Demographics + + + | Address | [address] | | | [place] [address] | + + + | Home Phone | | + + + | Preferred Language | Unknown | + + + | Marital Status | | + + + | Baptism Affiliation | 1013 | + + + | Race | Unknown | + + + | Ethnic Group | Unknown | + + + Author + + + | Author | [facility] | | | and [place] | + + + | Organization | [facility] | | | [...] | | | | [place] [address] | | + + + + + | Juana Gasca | ECON | [address] | | | | | [place] | | | | | [address] | | + + + + + | Chad Gasca | ECON | Unknown | | + + + + + Care Team Providers + +------+ + | Care Commercial Loan Underwriter Name | Role | Phone | + +------+ + PCP | Unavailable | + +------+ + Encounter Details +--------+ + + + + | Date | Type | Department | Care Team | Description | +--------+ + + + + | 07/21/ | Hospital | [facility] | Jin Epps MD | | | 2005 - | Encounter | [facility] | [address] | | | | | INTENSIVE CARE UNIT | [place] [address] | | | 07/22/ | | [facility] | [phone] | | | 2005 | | [place], [place] | | | | | | [address] | | | | | | [phone] | | | +--------+ + + + [...] [place] | | | | | | [address] | | | | | | | [...]
--- OUTSIDE RECORDS SUMMARY | ~2019-12-07 | XMS | Encounter Summary ---
Demographics + + + | Address | [address] | | | [place] [address] | + + + | Home Phone | | + + + | Preferred Language | Unknown | + + + | Marital Status | | + + + | Synagogue Affiliation | 1013 | + + + | Race | Unknown | + + + | Ethnic Group | Unknown | + + + Author + + + | Author | [facility] | | | and [place] | + + + | Organization | [facility] | | | [...] | | | | [place] [address] | | + + + + + | Juana Gasca | ECON | [address] | | | | | [place] | | | | | [address] | | + + + + + | Chad Gasca | ECON | Unknown | | + + + + + Care Team Providers + +------+ + | Care Ball Machine Operator Name | Role | Phone | + +------+ + | Timo Lorenzana | PCP | | | MD | | | + +------+ + Encounter Details +--------+ + + + + | Date | Type | Department | Care Team | Description | +--------+ + + + + | 06/25/ | Orders Only | [facility] | [place], | MARY (obstructive | | 2014 | | MED CTR PULMONARY | Florence You MD | sleep apnea) | | | | FUNCTION [address] | | | | | | [place], | | | | | | [place] [address] | | | | | | [phone] | | | +--------+ + + + [...] [place] | | | | | | [address] | | | | | | | [...]
--- OUTSIDE RECORDS SUMMARY | ~2019-12-07 | XMS | Encounter Summary ---
Demographics + + + | Address | [address] | | | [place] [address] | + + + | Home Phone | | + + + | Preferred Language | Unknown | + + + | Marital Status | | + + + | Anglican Affiliation | 1013 | + + + | Race | Unknown | + + + | Ethnic Group | Unknown | + + + Author + + + | Author | [facility] | | | and [place] | + + + | Organization | [facility] | | | [...] | | | | [place] [address] | | + + + + + | Juana Gasca | ECON | [address] | | | | | [place] | | | | | [address] | | + + + + + | Chad Gasca | ECON | Unknown | | + + + + + Care Team Providers + +------+ + | Care Customer Acquisition Manager Name | Role | Phone | + +------+ + | Timo Lorenzana | PCP | | | MD | | | + +------+ + Reason for Visit + +--------+ + | Reason | Onset | Comments | | | Date | | + +--------+ + | Weight Gain | 04/29/ | | | | 2019 | | + +--------+ + Encounter Details +--------+ + + + + | Date | Type | Department | Care Team | Description | +--------+ + + + + | 04/29/ | Telephone | [facility] | Alicja Lloyd, | Weight Gain | | 2019 | | CARDIOLOGY JULIAN Davies RN | | | | | [address] | | | | | | [place] | | | | | | [address] | | | | | | [phone] | | | +--------+ + + + [...] this encounter Miscellaneous Notes Telephone Encounter - Alicja Lloyd RN - 04/29/2019 11:29 AM PSTI called patient marco antonio díaz his recent weight gain. Dr. Hylton advised that patient takes his torsemide as needed for this. When I spoke with patient he stated "I ate a lot and had to take a very large bow el movement. After I did my weight was back where it was supposed to be". Patient denies any other symptoms. Patient does not have any questions. Patient understands his medications. Alicja Lloyd RN d ocumented in this encounter Plan of Treatment +--------+ [...] | | | | | [place] | | | | | | [id number] | | | | | | | [...]
--- OUTSIDE RECORDS SUMMARY | ~2019-12-07 | XMS | Encounter Summary ---
Demographics + + + | Address | [address] | | | [place] [address] | + + + | Home Phone | | + + + | Preferred Language | Unknown | + + + | Marital Status | | + + + | Confucianism Affiliation | 1013 | + + + | Race | Unknown | + + + | Ethnic Group | Unknown | + + + Author + + + | Author | [facility] | | | and [place] | + + + | Organization | [facility] | | | and [place] | + + + | Address | Unknown | + + + | Phone | Unavailable | + + + Support + + + + + | Name | Relationship | Address | Phone | + + + + + | Frances Gasca | ECON | NA | | | | | [place] [address] | | + + + + + | Juana Gasca | ECON | [address] | | | | | [place] | | | | | [address] | | + + + + + | Chad Gasca | ECON | Unknown | | + + + + + Care Team Providers + +------+ + | Care Veneer Clipper Helper Name | Role | Phone | + [...] | | | | | [address] | | | | | | [place] | | | | | | [address] | | | | | | [phone] | | | +--------+ + + + [...] | | | | | [place] | | | | | | [phone] | | | | | | | [...]
--- OUTSIDE RECORDS SUMMARY | ~2019-12-07 | XMS | Encounter Summary ---
Demographics + + + | Address | [address] | | | [place] [address] | + + + | Home Phone | | + + + | Preferred Language | Unknown | + + + | Marital Status | | + + + | Restorationist Affiliation | 1013 | + + + | Race | Unknown | + + + | Ethnic Group | Unknown | + + + Author + + + | Author | [facility] | | | and [place] | + + + | Organization | [facility] | | | [...] | | | | [place] [address] | | + + + + + | Juana Gasca | ECON | [address] | | | | | [place] | | | | | [address] | | + + + + + | Chad Gasca | ECON | Unknown | | + + + + + Care Team Providers + +------+ + | Care Straight Cutter Machine Name | Role | Phone | + [...] Description | +--------+--------+ + + + | 03/18/ | Refill | [facility] | Yuri Raymond | Medication Refill | | 2019 | | PULMONOLOGY [address] | Rush Raymond MD [address] | | | | | [address] | [address] | | | | | [place] | [place] [address] | | | | | [address] | [phone] | | | | | [phone] | | | +--------+--------+ + + + [...] | | | | | | [facility] [place] | | | | | | [address] | | | | | | | [...]
--- OUTSIDE RECORDS SUMMARY | ~2019-12-07 | XMS | Encounter Summary ---
Demographics + + + | Address | [address] | | | [place] [address] | + + + | Home Phone | | + + + | Preferred Language | Unknown | + + + | Marital Status | | + + + | Pentecostalism Affiliation | [id number] | + + + [...] | | | | [place] [address] | | + + + + + | Juana Gasca | ECON | [address] | | | | | [place] | | | | | [address] | | + + + + + | Chad Gasca | ECON | Unknown | | + + + + + Care Team Providers + +------+ + | Care Public Health Doctor Name | Role | Phone | + +------+ + | Med Lorenzana | PCP | | | MD | | | + +------+ + Reason for Visit Auth/Cert +--------+--------+ + + + + | Status | Reason | Specialty | Diagnoses / | Referred By | Referred To | | | | | Procedures | Contact | Contact | +--------+--------+ + + + + | | | | Diagnoses | | Spenser Schultz | | | | | Heart block | | MD Gorge | | | | | Procedures | | [address] | | | | | [address] | | [address] | | | | | IMPLTBL DFB | | [place], [place] | | | | | PLSE GEN | | [id number] Phone: | | | | | W/REPL PLSE | | [phone] | | | | | GEN 1 LEAD | | Fax: | | | | | CT | | [phone] | | | | | INSJ/RPLCMT | | | | | | | PERM DFB | | | | | | | W/TRNSVNS | | | | | | | LDS 1/DUAL | | | | | | | CHMBR CT | | | | | | | [...] + + + + | 11/12/ | Hospital | [facility] | Spenser Schultz, | Heart block; Heart | | 2019 | Encounter | [facility] | MD [address] | block; Cardiac | | | | LAB [address] [facility] | [place] JORDAN, | pacemaker in situ; | | | | [place], [place] | [place] [address] | Atrial fibrillation, | | | | [address] | [phone] | chronic (HCC); S/P | | | | [phone] | | MVR (mitral valve | | | | | | replacement) | +--------+ + + + + Social [...] + + + | Blood Pressure | 152/70 | 11/13/2019 2:19 PM | | | | | PDT | | + + + + + | Pulse | 60 | 11/13/2019 2:19 PM | | | | | PDT | | + + + + + | Temperature | 36.4 C (97.6 F) | 11/13/2019 2:19 PM | | | | | PDT | | + + + + + | Respiratory Rate | 16 | 11/13/2019 2:19 PM | | | | | PDT | | + + + + + | Oxygen Saturation | 100% | 11/13/2019 2:19 PM | | | | | PDT | | + + + + + | Inhaled Oxygen | - | - | | | Concentration | | | | + + + + + | Weight | 111.2 kg (245 lb 2.4 | 11/13/2019 10:46 AM | | | | oz) | PDT | | + + + + + | Height | 185.4 cm (6' 1") | 11/13/2019 10:46 AM | | | | | PDT | | + + + + + | Body Mass Index | 32.34 | 11/13/2019 10:46 AM | | | | | PDT | | + + + + + documented in this encounter Discharge Instructions Instructions Mansoor Strong, DARCI - 11/13/2019Make sure your INR is between 2.5 an d 3.5 Take 10 mg of warfarin per day, get an INR next week and weekly until between 2.5 and 3.5 ( this is important!) Get some press and seal to cover the incision for one week when you shower [phone] [employer] cell to send picture of incision in one week GENERATOR CHANGE Discharge Instructions FOLLOW-UP APPOINTMENTS First, be sure to come for all of your post-operative check-ups. The first visit is usually to check that your incision is healing properly. You will be seen by the Nurse or Nurse Pra ctitioner in approximately 7-10 days after pacemaker implantation. Your appointments will be at the [facility] in [place] across from the [facility]. The address is [place], [place]. The office is located on the 3rd floor. This appointment should already be scheduled for you, but if not, please call [phone] to schedule your appointment. INCISION SITE CARE You may have a small to moderate amount of pain over the next 48 hours. Take Tylenol 650mg every 4-6 hours for the next 24 hours. After the first 24 hours, you can take 500mg of Tylen ol every 6 hours as needed for pain. Your incision is closed with Dermabond Surgical Glue. D O NOT GET THIS INCISION OR THE DERMABOND WET FOR 7 DAYS AFTER SURGERY. Then, it is OK to brooklynn e showers only. The dermabond may start to peel and curl along the edges. Dermabond aids in healing the incision properly. There are no stitches to be removed. There are 3-4 layers of stitches internally that will be naturally absorbed by your body over time. FOR ALL INCISIONS After you go home from the hospital, you may sponge around the shoulder/ incision site with soap and water or a baby wipe. Please make sure that you DO NOT GET THE INCISION SITE WET. Also, do not touch your incision directly or apply any creams, lotions, ointments, salves, a lcohol or powder to the incision line. You may take your first full shower 7 days after your pacemaker/ICD generator change date. WHEN TO CALL OUR OFFICE If you have any questions about how the incision is healing or you are worried that the in cision is not healing properly, please call our office and ask to speak with the nurse at [phone]. There are certain signs of infection to watch for as your incision line is heali ng. Please call the office if your notice any green drainage, redness, splitting along the i ncision line, significant swelling or a bruise bigger than the palm of your hand, or if you start running a fever greater than 100.4 degrees. WHAT TO EXPECT You can expect the incision line and insertion site to be sore for the next 1-2 weeks. This is normal. You may take pain medicine, as needed. Women may wish to pad the incision site w ith a clean washcloth or handkerchief to keep the bra strap from irritating the incision. Th ere are no activity restrictions after a generator change, other than no lifting anything he avier than 10 pounds for 1 weeks. documented in this encounter Medications at Time of Discharge + + + +---------+ + + | Medication | Sig | Dispensed | Refills | Start | End Date | | | | | | Date | | + + + +---------+ + + | Albuterol | Inhale into the | | 0 | | | | (VENTOLIN IN) | lungs. | | | | | + + + +---------+ + + | albuterol 2.5 mg/3 | Take 3 mLs by | | 0 | 07/23/20 | | | mL nebulizer | nebulization every 6 | | | 18 | | | solution | (six) hours as | | | | | | | needed for Wheezing. | | | | | + + + +---------+ + + | aspirin 81 mg EC | Take 81 mg by mouth | | 0 | | | | tablet | Daily. | | | | | + + + +---------+ + + | carvedilol (COREG) | Take 1 tablet by | 180 | 3 | 10/21/19 | | | 3.125 mg tablet | mouth 2 times daily | tablet | | 20 | 1 | | | (with breakfast & | | | | | | | dinner). | | | | | + + + +---------+ + + | CINNAMON PO | Take 1,000 mg by | | 0 | | | | | mouth daily. | | | | | + + + +---------+ + + | cyanocobalamin | Take 1,000 mcg by | | 0 | | | | (VITAMIN B-12) 1000 | mouth daily. | | | | | | MCG tablet | | | | | | + + + +---------+ + + | | Take 3,000 mg by | | 0 | | | | Glucosamine-Chondroi | mouth daily. | | | | | | t-Vit C-Mn | | | [...] +---------+ + + | lisinopril | Take 1 tablet by | 90 | 3 | 06/19/19 | | | (PRINIVIL,ZESTRIL) | mouth Daily. | tablet | | 20 | 1 | | 2.5 MG tablet | | | | | | + + + +---------+ + + | metFORMIN | Take 850 mg by mouth | | 0 | 07/13/19 | | | (GLUCOPHAGE) 850 mg | 3 (three) times | | | 17 | | | tablet | daily. | | | | | + + + +---------+ + + | MULTIPLE | Take by mouth | | 0 | | | | VITAMINS-MINERALS ER | daily. | | | | | | PO | | | | | | + [...] | | 0 | | | | (PRILOSEC) 20 mg | every morning before | | | | | | capsule | breakfast. | | | | | + + + +---------+ + + | potassium chloride | Take 1 tablet by | 90 | 3 | 10/21/19 | | | (KLOR-CON M20) 20 | mouth Daily. | tablet | | 20 | 1 | | mEq ER tablet | | | | | | + + + +---------+ + + | pravastatin | Take 80 mg by mouth | | 0 | 02/17/20 | | | (PRAVACHOL) 80 MG | nightly. | | | 12 | | | tablet | | | | | | + + + +---------+ + + | Respiratory | by Does not apply | | 0 | | | | Therapy Supplies | route as needed. | | | | | | (NEBULIZER | | | | | | | COMPRESSOR) KIT | | | | | | + + + +---------+ + + | tamsulosin | Take 0.4 mg by mouth | | 0 | | | | (FLOMAX) 0.4 mg CAPS | nightly. | | | | | + + + +---------+ + + | tiotropium | INHALE THE CONTENTS | 90 | 3 | 03/18/20 | | | (SPIRIVA HANDIHALER) | OF 1 CAPSULE VIA | capsule | | 19 | | | 18 mcg inhalation | HANDIHALER DAILY | | | | | | capsule | | | | | | + + + +---------+ + + | torsemide | TAKE 2 TABLETS BY | 360 | 1 | 10/21/19 | | | (DEMADEX) 20 mg | MOUTH 2 TIMES DAILY | tablet | | 20 | | | tablet | NEEDED. | | | | | + + + +---------+ + + | warfarin | Take 1 tablet by | 90 | 3 | 11/13/19 | | | (COUMADIN) 10 mg | mouth Daily. | tablet | | 20 | | | tablet | | | | | | + + + +---------+ + + | WIXELA INHUB | INHALE 1 PUFF INTO | 180 | 3 | 08/13/19 | | | 100-50 MCG/DOSE | LUNGS TWO TIMES A | each | | 20 | | | diskus | DAY | | | | | | inhalerIndications: | | | | | | | Chronic obstructive | | | | | | | pulmonary disease, | | | | | | | unspecified COPD | | | | | | | type (HCC) | | | | | | + + + +---------+ + + documented as of this encounter H&P Notes Spenser Schultz MD - 11/12/2019 5:03 PM PDTFormatting of this note might be different fr om the original. [facility] SERVICE: ELECTROPHYSIOLOGY INTERVAL H & P UPDATE There have been no significant changes since the written history and physical below, wrcorrinae n by Dr. Hylton. He continues on his warfarin and the INR a couple of days ago was 2.3. Target INR according to him is 2-3. I reviewed the risks benefits and rationale for the pac emaker generator change out in detail and have recommended not stopping the warfarin prior t o the surgery. He is keen for the procedure. Proceed now. The pacemaker is at MARY status. The atrial lead will be capped off and the ventricular lead will be inserted to a new [employer] generator. The patient is alert, appropriate and oriented x3. No peripheral edema. Chest clear to Rashel Onofre. Spenser Schultz MD Electrophysiology H&P Date of visit: 10/30/2019 Primary Care Physician: Med Lorenzana MD CHIEF COMPLAINT: Chief Complaint Patient presents with Follow-up HISTORY OF PRESENT ILLNESS: Denise is 84 y.o. here for follow up visit. Complex past medical history with rheumatic valv ular heart disease S/P MVR and AVR. Coronary artery disease and previous PCI. Denies any chest pain or shortness of breath, his activity level has decreased secondary to significant left knee pain, pending surgery that was canceled secondary to lack of that by endemic. Now scheduled for December 2019. No recent interrogation for his pacemaker. Blood pressure and weight continues to be monitored within controlled limits. Wears pressure socks for lower ext edema swelling. Blood pressure has been controlled, on l ow doses of Carvedilol and Lisinopril. Has a treadmill at home however he is not using it. Past medical history, SH, FH, and medications were reviewed in the chart. Medications: Outpatient Encounter Medications as of 10/30/2019 Medication Sig Dispense Refill Albuterol (VENTOLIN IN) Inhale into the lungs. albuterol 2.5 mg/3 mL nebulizer solution Take 3 mLs by nebulization every 6 (six) hours as needed for Wheezing. aspirin 81 mg EC tablet Take 81 mg by mouth Daily. carvedilol (COREG) 3.125 mg tablet Take 1 tablet by mouth 2 times daily (with breakfast & dinner). 180 tablet 3 CINNAMON PO Take 1,000 mg by mouth daily. cyanocobalamin (VITAMIN B-12) 1000 MCG tablet Take 1,000 mcg by mouth daily. Itmrqpdouml-Ugynatgcz-Ioa C-Mn (GLUCOSAMINE 1500 COMPLEX PO) Take 3,000 mg by mouth priya ly. levothyroxine (SYNTHROID, LEVOTHROID) 150 mcg tablet Take 150 mcg by mouth Daily. lisinopril (PRINIVIL,ZESTRIL) 2.5 MG tablet Take 1 tablet by mouth Daily. 90 tablet 3 metFORMIN (GLUCOPHAGE) 850 mg tablet Take 850 mg by mouth 3 (three) times daily. MULTIPLE VITAMINS-MINERALS ER PO Take by mouth daily. nitrofurantoin (MACRODANTIN) 50 MG capsule Take 50 mg by mouth nightly. omeprazole (PRILOSEC) 20 mg capsule Take 20 mg by mouth every morning before breakfast. potassium chloride (KLOR-CON M20) 20 mEq ER tablet Take 1 tablet by mouth Daily. 90 tab let 3 [DISCONTINUED] Potassium Chloride Kaylene CR (KLOR-CON M20 PO) CR-TABS - 1 tablet by mouth twice daily pravastatin (PRAVACHOL) 80 MG tablet Take 80 mg by mouth nightly. Respiratory Therapy Supplies (NEBULIZER COMPRESSOR) KIT by Does not apply route as need ed. tamsulosin (FLOMAX) 0.4 mg CAPS Take 0.4 mg by mouth nightly. tiotropium (SPIRIVA HANDIHALER) 18 mcg inhalation capsule INHALE THE CONTENTS OF 1 CAP GARRETT VIA HANDIHALER DAILY 90 capsule 3 torsemide (DEMADEX) 20 mg tablet TAKE 2 TABLETS BY MOUTH 2 TIMES DAILY NEEDED. 360 tablet 1 warfarin (COUMADIN) 7.5 mg tablet Take 7.5 mg by mouth Daily. Take 7.5mg on Monday. Brooklynn e 10mg all other days WIXELA INHUB 100-50 MCG/DOSE diskus inhaler INHALE 1 PUFF INTO LUNGS TWO TIMES A DAY 1 80 each 3 No facility-administered encounter medications on file as of 10/30/2019. Allergies Allergies Allergen Reactions Sulfa Antibiotics Hives Metoprolol Succinate Swelling REVIEW OF SYSTEMS: Constitutional: Positive for mild chronic fatigue weight has been stable. HEENT: Negative for nosebleeds, ear discharge, nasal congestion or soar throat. Eyes: Wears glasses, redness, or secretion. Respiratory: Negative for cough, sputum production, hemoptysis, wheezing. Cardiovascular: As HPI. Gastrointestinal: Negative for nausea, vomiting, diarrhea, abdominal pain and blood in stoo l. Genitourinary: Negative for dysuria or hematuria. Musculoskeletal: Chronic arthritic pain previous hip replacement planning for left knee rep lacement. Skin: Negative for rash. Neurological: Negative for dizziness. No numbness. No recent falls. No slurred speech. Hematological: No significant bruising. Psychiatric/Behavioral: No depression or anxiety. PHYSICAL EXAM Vital Signs: BP 122/68 | Pulse 60 | Ht 1.854 m (6' 1") | Wt 113.4 kg (250 lb) | SpO2 96% | BMI 32.9 8 kg/m GENERAL APPEARANCE: Alert, oriented, cooperative, no distress, appears stated age. HEENT: Extraocular movements were intact. No jaundice. Pupiles round and reactive. NECK: No JVD, lymphadenopathy. Carotid upstrokes normal. No carotid bruit heard. CARDIAC: Irregular with mechanical clicks S1-S2. CHEST: Normal bilateral symmetrical chest excursion.ackles or wheezing. No evidence of dull ness. ABDOMEN: Soft.No tenderness or guarding. No palpable organs. Active bowel sounds. EXTREMITIES: Pressure socks no lower extremity edema. NEURO: Alert and oriented times three with no focal deficit. Cranial nerves are grossly no rmal. SKIN: Warm and dry. No rash. Psych: Normal affect and mood. DATA 08/21/2018 BC 11.7, hemoglobin 13.1, platelets 222, INR 2.3, BUN 51 creatinine 1.38, GFR 49, sodium 13 7, potassium 4.2, chloride 98, bicarb 30. Calcium 9.4, troponin 0.03, BNP 529, positive influenza A . magnesium 2.0, AST 56, ALT 37, Lab Results Component Value Date/Time NA 132 04/03/2014 02:00 PM NA 129 (L) 03/14/2014 04:40 AM NA 134 (L) 03/13/2014 06:30 AM K 4.2 04/03/2014 02:00 PM K 5.1 (H) 03/14/2014 04:40 AM K 4.9 03/13/2014 06:30 AM CO2 28 04/03/2014 02:00 PM CO2 27 03/14/2014 04:40 AM CO2 27 03/13/2014 06:30 AM BUN 34 (A) 04/03/2014 02:00 PM BUN 24 03/14/2014 04:40 AM BUN 22 03/13/2014 06:30 AM CALCIUM 9.5 04/03/2014 02:00 PM CALCIUM 8.8 03/14/2014 04:40 AM CALCIUM 8.7 03/13/2014 06:30 AM MG 2.3 03/14/2014 04:40 AM MG 2.4 03/13/2014 06:30 AM MG 2.6 (H) 03/12/2014 02:48 AM Lab Results Component Value Date/Time WBC 10.9 03/14/2014 04:40 AM WBC 15.2 (H) 03/13/2014 06:30 AM WBC 16.0 (H) 03/12/2014 02:48 AM HGB 8.8 (L) 03/14/2014 04:40 AM HGB 9.1 (L) 03/13/2014 06:30 AM HGB 8.9 (L) 03/12/2014 02:48 AM HGB 8.5 (L) 03/10/2014 07:26 PM HGB 8.5 (L) 03/10/2014 06:31 PM HGB 8.8 (L) 03/10/2014 06:03 PM MCV 98.9 03/14/2014 04:40 AM MCV 97.4 03/13/2014 06:30 AM MCV 99.2 03/12/2014 02:48 AM LABPLAT 126 (L) 03/14/2014 04:40 AM LABPLAT 134 (L) 03/13/2014 06:30 AM LABPLAT 111 (L) 03/12/2014 02:48 AM Lab Results Component Value Date ALT 15 03/07/2014 GLUF 114 (A) 04/03/2014 GLUF 101 (H) 03/14/2014 ECG, 10/30/2019 Ordered and reviewed by myself showed atrial fibrillation with ventricular paced rhythm and premature ventricular contraction. Last Echo, 12/20/2016 Normal LV size, mild left ventricular hypertrophy, normal systolic function EF 55-60%. Severely enlarged RV with mild impaired systolic function. Normal functioning mechanical pl euritic and mitral valve with acceptable gradient. Last stress test, Adenosine Cardiolite, 07/07/2010: Fixed apical defect, no reversible ischemia, LV enlarged, LVEF 46% Last Cath, 03/09/2014: RA: 80/13 mean 16mmHg, RV: 71/19, PAP: 69/34, PCWP: 32 LVEDP: 21, AoV: P-P 46, mean 40mmHg, CO(F): 4.4, CO(Th): 5.0, JULIAN(F): 0.7, JULIAN(Th): 0.9cm2 Cor: left main OK, LAD OK, ramus 20% in-stent restenosis, LCx OK, 10% distal RCA, PDA OK. Hx PCI/stent: 2004, Ramus (2.5*12mm Taxus SHIRLEY), LCx (3.5*16mm Taxus SHIRLEY). Last US carotid: MVR 1995, CarboMedics 31 mm valve (RHD/MS), AVR 2013,On-X (RHD/). Hx Pacemaker/ICD: 08/30/2007, Guidant Insignia 1291, SN: [id number]. Last interrogation 10/30/2019 MARY, 96% ASSESSMENT: Patient is 84 y.o. with 1. 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 No signs of congestive heart failure. Warfarin has been therapeutic. 2. CAD S/P PCI to Ramus and LCX in 2004. 3. Obesity. 4. Chronic Atrial fibrillation, valvular CHADSVASc score of 4. On anticoagulation with warf mg. 5. Cardiomyopathy, mixed valvular and ischemic. No signs of volume overload. 6. History of pacemaker implant. Currently MARY. 7. Chronic kidney disease stage III. 8. Chronic arthritic pain, left knee planning for replacement in June 2019. Plan: Patient continues to be hemodynamically stable, tolerating medical therapy. No signs of co ngestive heart failure, no anginal symptoms. Preserved systolic function on the most recent echocardiogram. Pacemaker was interrogated by myself today and was showed to be MARY will need to schedule f or generator change. Patient is moderate risk however not prohibitive to proceed with above left knee surgery in the current clinical evaluation. Given patient previous mechanical valve replacement following recommendations should be fol lowed: 1. Continue with anticoagulation with warfarin until 5 days before surgery. 2. Warfarin can be stopped and patient will be started on enoxaparin therapeutic dose. 3. Recommend admitting the patient the day before surgery starting IV heparin which can be stopped 1 to 2 hours prior to surgery. 4. After surgery recommendation to start enoxaparin and warfarin same day. 5. Continue enoxaparin until INR is therapeutic. 6. Patient needs prophylaxis with antibiotic prior to his surgery. We will continue with his other cardiac medications. 1. Continue with Lisinopril and Carvedilol. Continue with monitoring blood pressure. 2. Continue with anticoagulation. 3. Continue Statin and ASA. 4. Follow up in 6 months or earlier if needed. documented in this e ncounter Miscellaneous Notes Op Note - Spenser Schultz MD - 11/13/2019 1:46 PM [facility] OPERATIVE REPORT SPENSER SCHULTZ MD Patient: DENISE GACSA Admitting: SPENSER SCHULTZ MR #: [id number] LOC: PT TYPE: Adm Date: 11/13/2019 : 1935 DATE OF PROCEDURE: 11/13/2019 PROCEDURE: A dual-chamber pacemaker generator change out to a single chamber permanent pac carlene. HISTORY: This 84-year-old gentleman was referred for a pacemaker generator change out sin e his current device is at elective replacement indicator status. He now has permanent atri al fibrillation and is chronically anticoagulated with warfarin, because of double mechanica l mitral valve and aortic valve replacements and AFib. His permanent pacemaker was placed o n 08/30/2007 because of complete heart block. A generator change out was recommended since his device was recently found to be at MARY. The atrial lead is a [employer] model 1882TC, se rial #[id number]. The ventricular lead is a Guidant, model 4088, serial #[id number]. The current pacemaker is a Guidant, model 1291, serial #[id number]. PROCEDURE NOTE: The patient was brought to the electrophysiology laboratory in the post-ab sorptive, nonsedated state. Sedation was accomplished by our anesthesiologist and once he w as comfortable, the chest was prepped and draped in the usual sterile fashion and locally an esthetized with 1-percent Xylocaine. An incision was made over the pacemaker pocket and a P hoton blade was used to cauterize any oozing and to expose pacemaker. The pacemaker was re moved from the pocket and the leads were tested and found to be working appropriately. The atrial lead was capped off. The ventricular pacing threshold was 0.9 volts at 0.5 milliseco nds with an impedance of 507 ohms and a current of 1.8 milliamps. The lead was attached to a new [employer] [employer] Accolade MRI compatible pacemaker (model L310, serial #[id number]). Vishal t device was placed into the pacemaker pocket and anchored with a #1 Ethibond suture. The pocket was closed with 5 layers, using 2-0 Vicryl for the deep 3 layers, 3-0 Vicryl for the next layer and 4-0 Monocryl for the superficial layer. An Octyl dressing was placed over th e incision. There were no apparent complications. The estimated blood loss was 20 mL or le ss. The device was programmed to the final desired settings and the patient was then transferre d to his room in stable condition. FINAL SETTINGS FOR THE DEVICE: Mode for pacing VVIR with a lower rate of 60 and upper rate of 120 beats per minute. The sensitivity will be 2.5 millivolts with an output that is aut omatic and the pulse width will be 0.4 milliseconds. Pacing and sensing will be bipolar. T he atrial lead was capped off. A dual sensor has been programmed on with minute ventilation and accelerometer technology. FINAL IMPRESSION: 1. The old atrial lead was capped off because of permanent atrial fibrillation. 2. Good chronic pacing and sensing thresholds for the right ventricular lead. Appropriate device function seen. RECOMMENDATIONS: Increase the target INR to 2.5-3.5 since he has mechanical mitral valve. Continue warfarin and aspirin 81 mg/day. SPENSER SCHULTZ MD Dictated by SPENSER SCHULTZ MD 11/13/2019 13:46:10 Transcribed on 11/13/2019 18:11:46 by job# [id number] Confirmation #: [id number] cc: MED HYLTON MD rief Op Note - Spenser Wells MD - 11/13/2019 1:31 PM [facility] Service: Electrophysiology Brief Op Note Pre-operative Diagnosis: Permanent atrial fibrillation with high degree AV block. Current pacemaker is at end-of-life Post-operative Diagnosis: Same Procedure(s): Permanent pacemaker generator change out. The dual-chamber pacemaker was melida ngraded to a single-chamber device. The atrial lead was capped off. [employer] mackenzie forrester Surgeon: Spenser Schultz MD Desk Clerk(s): Sam Anesthesia: Monitor Anesthesia care Estimated Blood Loss: 20 cc Other: The atrial lead was capped off. Indications: See pre-operative history and physical Findings: Good chronic pacing and sensing thresholds for the ventricular lead which was att ached to the new generator. The pocket was closed with 5 layers. Complications: None Condition: stable See dictated operative report for full details. The target INR for this patient is 2.5-3.5 , given his mechanical mitral and aortic valve replacements. Spenser Schultz MD 11/13/2019 1:31 PM documented in this e ncounter Plan of Treatment +--------+ + + + [...] [place] | | | | | | [id number] | | | | | | | [...] Type | Priori | Associated Diagnoses | Date/Time | | | | ty | | | + + +--------+ + + | CV EP Procedure | Electrophys | Routin | Heart block | 11/13/2019 2:00 PM | | | iology | e | | PDT | + + +--------+ + + documented as of this encounter Procedures + +--------+ + + + | Procedure Name | Priori | Date/Time | Associated Diagnosis | Comments | | | ty | | | | + +--------+ + + + | CV EP PROCEDURE | Routin | 11/13/2019 | Heart block | | | | e | 2:00 PM | | | | | | PDT | | | + +--------+ + + + | PROTIME INR | STAT | 11/13/2019 | | Results for this | | | | 10:45 AM | | procedure are in the | | | | PDT | | results section. | + +--------+ + + + | BASIC METABOLIC | STAT | 11/13/2019 | | Results for this | | PANEL | | 10:45 AM | | procedure are in the | | | | PDT | | results section. | + +--------+ + + + documented in this encounter Results Protime INR (11/13/2019 10:45 AM PDT) + + + + + + | Component | Value | Ref Range | Performed | Pathologist | | | | | At | Signature | + + + + + + | INR | 2.2Comment: REFERENCE | | [facility] | | | | RANGE:0.9 - 1.2 | | LABORATORY | | | | NON-ANTICOAGULATED2.0 | | | | | | - 3.0 ALL OTHER | | | | | | THERAPEUTIC | | | | | | INDICATIONS2.5 - 3.5 | | | | | | MECHANICAL HEART VALVES, | | | | | | RECURRENT OR SYSTEMIC | | | | | | EMBOLISMTesting | | | | | | performed at [facility] | | | | | | [facility];[place], [place] | | | | | | [address] | | | | + + + + + + + + | Specimen | + + | Blood | + + + + + + + | Performing | Address | City/State/Zipcode | Phone Number | | Organization | | | | + + + + + | [facility] | [address] | [place] [address] | [phone] | + + + + + Basic Metabolic Panel (11/13/2019 10:45 AM PDT) + + + + + + | Component | Value | Ref Range | Performed | Pathologist | | | | | At | Signature | + + + + + + | Na | 143 | 135 - 145 | [facility] | | | | | mmol/L | LABORATORY | | + + + + + + | K | 4.3 | 3.5 - 4.9 | [facility] | | | | | mmol/L | LABORATORY | | + + + + + + | Cl | 105 | 99 - 109 mmol/L | [facility] | | | | | | LABORATORY | | + + + + + + | CO2 | 28 | 23 - 32 mmol/L | [facility] | | | | | | LABORATORY | | + + + + + + | Anion Gap | 14 | 5 - 20 mmol/L | [facility] | | | | | | LABORATORY | | + + + + + + | Glucose | 124 (H) | 65 - 99 mg/dL | [facility] | | | | | | LABORATORY | | + + + + + + | BUN | 33 (H) | 8 - 25 mg/dL | [facility] | | | | | | LABORATORY | | + + + + + + | Creatinine | 1.40 (H) | 0.70 - 1.30 | [facility] | | | | | mg/dL | LABORATORY | | + + + + + + | BUN/Creatin | 24 | | [facility] | | | ine Ratio | | | LABORATORY | | + + + + + + | Calcium | 9.9 | 8.5 - 10.5 | [facility] | | | | | mg/dL | LABORATORY | | + + + + + + | Estimated | 48 (L)Comment: GFR <60: | >60 | [facility] | | | GFR | CHRONIC KIDNEY DISEASE, | mL/min/1.73m2 | LABORATORY | | | | IF FOUND OVER A 3 MONTH | | | | | | PERIOD.GFR <15: KIDNEY | | | | | | FAILURE.FOR | | | | | | AMERICANS, MULTIPLY THE | | | | | | CALCULATED GFR BY | | | | | | 1.210.This eGFR is | | | | | | calculated using the | | | | | | MDRD IDMS traceable | | | | | | equation.Testing | | | | | | performed at [facility] | | | | | | [facility];[place], [place] | | | | | | [address] | | | | + + + + + + + + | Specimen | + + | Blood | + + + + + + + | Performing | Address | City/State/Zipcode | Phone Number | | Organization | | | | + + + + + | [facility] | [address] | [place] [address] | [phone] | + + + + + documented in this encounter Visit Diagnoses + + | Diagnosis | + + | Heart block - Primary Conduction disorder, unspecified | + + | Cardiac pacemaker in situ | + + | Atrial fibrillation, chronic (HCC) Atrial fibrillation | + + | S/P MVR (mitral valve replacement) Heart valve replaced by other means | + + documented in this encounter Admitting Diagnoses + + | Diagnosis | + + | Heart block Conduction disorder, unspecified | + + documented in this encounter Administered Medications + +--------+ +--------+------+------+ | Medication Order | MAR | Action | Dose | Rate | Site | | | Action | Date | | | | + +--------+ +--------+------+------+ | acetaminophen (TYLENOL) tablet | Given | 11/13/19 | 650 mg | | | | 650 mg 650 mg, Oral, EVERY 4 | | 20 2:41 | | | | | HOURS PRN, Pain, Starting Wed | | PM PDT | | | | | 11/13/19 at 1434, Recovery/Phase I | | | | | | + +--------+ +--------+------+------+ +---+---+ | | | +---+---+ + +-------+ +-------+---+---+ | povidone-iodine 5 % external | Given | 11/13/19 | 4 mLs | | | | solution Topical, PRN, Other, | | 20 10:54 | | | | | pre-op, Starting 11/13/19 at | | AM PDT | | | | | 1029, For 1 dose, Recovery/Phase | | | | | | | I | | | | | | + +-------+ +-------+---+---+ +---+---+ | | | +---+---+ [...] +---+ +---+ +---+---+ | | | +---+---+ + +-------+ + +---+---+ | vancomycin 1,000 mg in sodium | Given | 11/13/19 | 1,000 mg | | | | chloride (PF) 0.9% injection 20 | | 20 1:14 | | | | | mL irrigation syringe 1,000 mg, | | PM PDT | | | | | Irrigation, ONCE, 11/13/19 at | | | | | | | 1045, For 1 dose, For pocket at | | | | | | | time of closing., Pre-op | | | | | | + +-------+ + +---+---+ +---+---+ | | | +---+---+ + +---------+ +-------+--------+---+ | vancomycin in NS (VANCOCIN) | New Bag | 11/13/19 | 1.5 g | 166.7 | | | IVPB 1.5 g 1.5 g, Intravenous, | | 20 12:00 | | mL/hr | | | Administer over 90 Minutes, Prior | | PM PDT | | | | | to Incision, Starting Wed | | | | | | | 11/13/19 at 1019, For 1 dose, Keep | | | | | | | in refrigerator., Pre-op, | | | | | | | Indications: Surgical Prophylaxis | | | | | | + +---------+ +-------+--------+---+ +---+---+ | | | +---+---+ documented in this encounter
--- OUTSIDE RECORDS SUMMARY | ~2019-12-07 | XMS | Encounter Summary ---
Demographics + + + | Address | [address] | | | [place] [address] | + + + | Home Phone | | + + + | Preferred Language | Unknown | + + + | Marital Status | | + + + | Temple Affiliation | 1013 | + + + | Race | Unknown | + + + | Ethnic Group | Unknown | + + + Author + + + | Author | [facility] | | | and [place] | + + + | Organization | [facility] | | [...] | | | | [place] [address] | | + + + + + | Juana Gasca | ECON | [address] | | | | | [place] | | | | | [address] | | + + + + + | Chad Gasca | ECON | Unknown | | + + + + + Care Team Providers + +------+ + | Care English Instructor Name | Role | Phone | + +------+ + | Timo Lorenzana | PCP | | | MD | | | + +------+ + Encounter Details +--------+ + + + + | Date | Type | Department | Care Team | Description | +--------+ + + + + | 02/05/ | Hospital | [facility] | Conversion | Pain | | 2016 | Encounter | CONVERSION [address] | Transaction, | | | | | [address] | Provider Unknown | | | | | [place] | [phone] | | | | | [address] | | | | | | [phone] | | | +--------+ + + + [...] 150 mcg by | | 0 | 05/15/20 | | | (SYNTHROID, | mouth Daily. [...] | | | | | [place] | | | | | | [address] | | | | | | | [...] +--------+ + + + | XR CHEST 1 VIEW | Routin | 07/21/2013 | | Results for this | | | e | 2:12 PM | | procedure are in the | | | | PST | | results section. | + +--------+ + + + documented in this encounter Results XR Chest 1 Vw (07/21/2013 2:12 PM PST) + + | Specimen | [...] + | Diagnosis | + + | Pain Generalized pain | + + documented in this encounter"
--- OUTSIDE RECORDS SUMMARY | ~2019-12-07 | XMS | Encounter Summary ---
Demographics + + + | Address | [address] | | | [place] [address] | + + + | Home Phone | | + + + | Preferred Language | Unknown | + + + | Marital Status | | + + + | Christianity Affiliation | 1013 | + + + [...] | | | | [place] [address] | | + + + + + | Juana Gasca | ECON | [address] | | | | | [place] | | | | | [address] | | + + + + + | Chad Gasca | ECON | Unknown | | + + + + + Care Team Providers + +------+ + | Care Poultry Pinner Name | Role | Phone | + +------+ + | Timo Lorenzana | PCP | | | MD | | | + +------+ + Reason for Visit + + + | Reason | Comments | + + + | Device Check | | | (In-office) | | + + + Encounter Details +--------+ + + + + | Date | Type | Department | Care Team | Description | +--------+ + + + + | 11/25/ | Procedure | [facility] | | Cardiac pacemaker in | | 2020 | visit | CARDIOLOGY [place] | | situ (Primary Dx) | | | | [address] | | | | | | [address] [address] | | | | | | [place], [place] | | | | | | [address] | | | | | | [phone] | | | +--------+ + + + [...] + + documented as of this encounter Procedure Notes Micaela Barger, GINGER - 11/26/2019 1:00 PM PDTAssociated Order(s): DEVICE INTERROGATIONPro cedure(s): DEVICE INTERROGATIONPre-Procedure Diagnose(s): Cardiac pacemaker in situFormattin g of this note might be different from the original. PACEMAKER INTERROGATION REPORT Name: Serge Maddox Elo PCP: Timo Lorenzana MD : 1935 Primary cardiology provider: Elif Pasc[place]kees rocks Primary electrophysiology provider: Spenser Potter Mode of interrogation: Seen in cardiac device clinic Device: [employer] Battery Longevity: 10.5 years. RV Pacin% Pacemaker dependent: Yes Interrogation results Please see the full interrogation report attached Lead function: Lead impedance and threshold value trends have been reviewed and are accepta ble based on most recent evaluation. RV Threshold: 0.9V @ 0.4ms RV Amplitude: Paced Since last in-office on 11/19/2018: Atrial events: Atrial high rate episodes: None Percentage of time in atrial flutter or atrial fibrillation: N/A Known history of atrial flutter or atrial fibrillation: Yes Current antithrombotic therapy including: warfarin Ventricular events: Ventricular high rate episodes: None. Additional comments: VVIR mode. Programming changes: Temporary programming changes were made for testing and restored to or iginal values. No permanent changes were made. Follow up: The next scheduled interrogation will be in 3 months via remote transmission. Impression: 1. Normal pacemaker function. 2. No significant arrhythmias noted. Testing performed by: Yesika Cadet, [employer] Reviewed by: GINGER Hinojosa documented in this encounter Plan of Treatment +--------+ + + + + | Date | Type | Specialty | Care Team | Description | +--------+ + + + + | 03/09/ | Procedure | Cardiology | | | 2019 | visit | | | | +--------+ + + + + | 05/06/ | Office | Cardiology | Elif Hylton, | | 2019 | Visit | | MD [address] | | | | | | [place] | | | | | | [address] | | | | | | | [...] | + +--------+ + + + | DEVICE INTERROGATION | Routin | 11/26/2019 | Cardiac pacemaker | Results for this | | | e | 1:00 PM | in situ | procedure are in the | | | | PDT | | results section. | + +--------+ + + + documented in this encounter Results Device Interrogation (11/26/2019 1:00 PM PDT) + + + | Narrative | Performed At | + + + | Micaela Barger RN 11/28/2019 10:37 AM PACEMAKER | [facility] | | INTERROGATION REPORT Name: Serge Maddox Elo PCP: Timo Muniz | | | MD [place] : 1935 Primary cardiology | | | provider: Elif [facility] Primary electrophysiology provider: Spenser | | | Tariq Mode of interrogation: Seen in cardiac device | | | clinic Device: [employer] Battery Longevity: 10.5 | | | years. RV Pacin% Pacemaker dependent: Yes | | | Interrogation results Please see the full interrogation report | | | attached Lead function: Lead impedance and threshold value | | | trends have been reviewed and are acceptable based on most recent | | | evaluation. RV Threshold: 0.9V @ 0.4ms RV Amplitude: Paced | | | Since last in-office on 11/19/2018: Atrial events: Atrial high rate | | | episodes: None Percentage of time in atrial flutter or atrial | | | fibrillation: N/A Known history of atrial flutter or atrial | | | fibrillation: Yes Current antithrombotic therapy including: warfarin | | | Ventricular events: Ventricular high rate episodes: None. | | | Additional comments: VVIR mode. Programming changes: | | | Temporary programming changes were made for testing and restored to | | | original values. No permanent changes were made. Follow | | | up: The next scheduled interrogation will be in 3 months via remote | | | transmission. Impression: 1. Normal pacemaker function. 2. No | | | significant arrhythmias noted. Testing performed by: Yesika Cadet, | | | [employer] Reviewed by: GINGER Hinojosa | | + + + + +---------+ + + | Performing | Address | City/State/[place] | Phone Number | | Organization | | | | + +---------+ + + | [facility] | | | | + +---------+ + + documented in this encounter Visit Diagnoses + + | Diagnosis | + + | Cardiac pacemaker in situ - Primary | + + documented in this encounter"
--- OUTSIDE RECORDS SUMMARY | ~2019-12-07 | XMS | Encounter Summary ---
Demographics + + + | Address | [address] | | | [place] [address] | + + + | Home Phone [...] | | | | [place] [address] | | + + + + + | Juana Gasca | ECON | [address] | | | | | [place] | | | | | [address] | | + + + + + | Chad Gasca | ECON | Unknown | | + + + + + Care Team Providers + +------+ + | Care Material Requisitioner Name | Role | Phone | + +------+ + | Timo Lorenzana | PCP | | | MD | | | + +------+ + Reason for Visit + +--------+ + | Reason | Onset | Comments | | | Date | | + +--------+ + | Medication Question | 12/02/ | Enoxaparin | | | 2019 | | + +--------+ + Encounter Details +--------+ + + + + | Date | Type | Department | Care Team | Description | +--------+ + + + + | 12/02/ | Telephone | [facility] | Elif Hylton, | Medication Question | 2019 | | CARDIOLOGY [place] | [address] | (Enoxaparin) | | | | [address] | [place] | | | | | [place] | [address] | | | | | [address] | | | | | | [phone] | | | +--------+ + + + [...] this encounter Miscellaneous Notes Telephone Encounter - Pramod Carranza Risk Modeler - 12/03/2019 3:32 PM PDTStart Lo venox 5 days prior to surgery, at that time stop warfarin. Restart Lovenox post surgery, and stay on until INR is 2.5. Informed Anh, she states understanding with no further questions. elephone Encounter - Pramod Carranza Risk Modeler - 12/03/2019 3:32 PM PDT----- Message from Aurelia Brandt sent at 12/03/2019 3:02 PM PDT ----- Contact: Enoxaparin 100 mg bid ----- Message ----- From: Yue Sahu Sent: 12/03/2019 3:01 PM PDT To: Elif Hylton MD He's agreeing, but needs to know the dose you would like him to be on. ----- Message ----- From: Elif Hylton MD Sent: 12/03/2019 2:48 PM PDT To: Yue Sahu Absolutely and it is a must. ----- Message ----- From: Yue Sahu Sent: 12/03/2019 2:33 PM PDT To: MD Beata Brandtantonella Serge Morrisonn [phone] ----- Message ----- From: Elif Hylton MD Sent: 12/03/2019 12:24 PM PDT To: Yue Sahu Which patient? ----- Message ----- From: Yue Sahu Sent: 12/02/2019 1:21 PM PDT To: MD Anh Brandt from Dr. Lindsey's office called asking for Lovenox dose? States they received the note stating patient is to start that, but dose was not mentioned in note. Dr. Lindsey's is willing to prescribe, but would like to confirm the dose patient needs? docum ented in this encounter Plan of Treatment +--------+ [...] | | | | | [place] | | | | | | [address] | | | | | | | [...]
--- OUTSIDE RECORDS SUMMARY | ~2019-12-07 | XMS | Encounter Summary ---
Demographics + + + | Address | [address] | | | [place] [address] | + + + | Home Phone | | + + + | Preferred Language | Unknown | + + + | Marital Status | | + + + | Yazdanism Affiliation | 1013 | + + + [...] | | | | [place] [address] | | + + + + + | Juana Gasca | ECON | [address] | | | | | [place] | | | | | [address] | | + + + + + | Chad Gasca | ECON | Unknown | | + + + + + Care Team Providers + +------+ + | Care Sheep Or Calf Grader Name | Role | Phone | + [...] + + | 06/19/ | Refill | [facility] | Elif Hylton, | Medication Refill | | 2019 | | CARDIOLOGY [place] | [address] | (Lisinopril) | | | | [address] | [place] | | | | | [address] | [address] | | | | | [place] | | | | | | [address] | | | | | | [phone] | | | +--------+--------+ + + + [...] [place] | | | | | | [address] | | | | | | | [...]
--- OUTSIDE RECORDS SUMMARY | ~2019-12-07 | XMS | Encounter Summary ---
Demographics + + + | Address | [address] | | | [place] [address] | + + + | Home Phone | | + + + | Preferred Language | Unknown | + + + | Marital Status | | + + + | Mormonism Affiliation | 1013 | + + + | Race | Unknown | + + + | Ethnic Group | Unknown | + + + Author + + + | Author | [facility] | | | and [place] | + + + | Organization | [facility] | | [...] | | | | [place] [address] | | + + + + + | Juana Gasca | ECON | [address] | | | | | [place] | | | | | [address] | | + + + + + | Chad Gasca | ECON | Unknown | | + + + + + Care Team Providers + +------+ + | Care Organic Chemistry Professor Name | Role | Phone | + [...] + + | 11/11/ | Telephone | [facility] | Spenser Potter, | Pre-Op | | 2019 | | CENTER [facility] | [address] | | | | | [address] | [place], | | | | | [place] | [place] [address] | | | | | [address] | [phone] | | | | | [phone] | | | +--------+ + + + [...] [place] | | | | | | [address] | | | | | | | [...]
--- OUTSIDE RECORDS SUMMARY | ~2019-12-07 | XMS | Encounter Summary ---
Demographics + + + | Address | [address] | | | [place] [address] | + + + | Home Phone | | + + + | Preferred Language | Unknown | + + + | Marital Status | | + + + | Restorationism Affiliation | 1013 | + + + | Race | Unknown | + + + | Ethnic Group | Unknown | + + + Author + + + | Author | [facility] | | | and [place] | + + + | Organization | [facility] | | [...] | | | | [place] [address] | | + + + + + | Juana Gasca | ECON | [address] | | | | | [place] | | | | | [address] | | + + + + + | Chad Gasca | ECON | Unknown | | + + + + + Care Team Providers + +------+ + | Care Corrections Specialist Name | Role | Phone | + +------+ + PCP | Unavailable | + +------+ + Encounter Details +--------+ + + + + | Date | Type | Department | Care Team | Description | +--------+ + + + + | 05/04/ | Hospital | [facility] | Jeremías Baum MD | | | 2006 | Encounter | [facility] | [address] [facility] | | | | | [address] | [place] | | | | | [place] | [address] | | | | | [address] | [phone] | | | | | [phone] | | | +--------+ + + + [...] [place] | | | | | | [address] | | | | | | | [...]
--- OUTSIDE RECORDS SUMMARY | ~2019-12-07 | XMS | Encounter Summary ---
Demographics + + + | Address | [address] | | | [place] [address] | + + + | Home Phone | | + + + | Preferred Language | Unknown | + + + | Marital Status | | + + + | Advent Affiliation | 1013 | + + + | Race | Unknown | + + + | Ethnic Group | Unknown | + + + Author + + + | Author | [facility] | | | and [place] | + + + | Organization | [facility] | | [...] | | | | [place] [address] | | + + + + + | Juana Gasca | ECON | [address] | | | | | [place] | | | | | [address] | | + + + + + | Chad Gasca | ECON | Unknown | | + + + + + Care Team Providers + +------+ + | Care Shield Cleaner Name | Role | Phone | + +------+ + | Timo Lorenzana | PCP | | | MD | | | + +------+ + Reason for Visit + + + | Reason | Comments | + + + | Follow-up | 4 month follow up | + + + | COPD | | + + + Encounter Details +--------+---------+ + + + | Date | Type | Department | Care Team | Description | +--------+---------+ + + + | 07/31/ | Office | [facility] [place] | [place], | Chronic obstructive | | 2015 | Visit | PULMONARY [address] | Florence You MD | pulmonary disease, | | | | [place], | | unspecified COPD | | | | [place] [address] | | type (HCC) (Primary | | | | [phone] | | Dx); Obstructive | | | | | | sleep apnea on | | | | | | BiPAP; Nocturnal | | | | | | hypoxemia due to | | | | | | emphysema (HCC) | +--------+---------+ + + + Social [...] + | Blood Pressure | 122/60 | 07/31/2015 2:01 PM | | | | | PST | | + + + + + | Pulse | 60 | 07/31/2015 2:01 PM | | | | | PST | | + + + + + | Temperature | 36.4 C (97.5 F) | 07/31/2015 2:01 PM | | | | | PST | | + + + + + | Respiratory Rate | 16 | 07/31/2015 2:01 PM | | | | | PST | | + + + + + | Oxygen Saturation | 94% | 07/31/2015 2:01 PM | | | | | PST | | + + + + + | Inhaled Oxygen | - | - | | | Concentration | | | | + + + + + | Weight | 124.3 kg (274 lb) | 07/31/2015 2:01 PM | | | | | PST | | + + + + + | Height | 182.9 cm (6') | 07/31/2015 2:01 PM | | | | | PST | | + + + + + | Body Mass Index | 37.16 | 07/31/2015 2:01 PM | | | | | PST | | + + + + + documented in this encounter Patient Instructions Patient Instructions Florence La MD - 07/31/2015 2:42 PM PSTI am going to reord er your nebulizers, but it will be albuterol only instead of the combination nebulizer. I want you to get out and start walking laps at the park. Start with 1 a day, and work up t o 3 a day. I want you to aim for walking 5 days a week. No other changes today. 3:0 6 PM PST documented in this encounter Progress Notes Florence La MD - 07/31/2015 2:03 PM PSTFormatting of this note might be differe nt from the original. Pulmonary Follow Up HPI Serge Gasca is a 80 y.o. male patient of Timo Lorenzana MD here today for fo llow up of COPD. At their last visit, we had continued him on Advair and Spiriva. Since their last visit he feels like he has been doing really well. He was sick in May, and recovered without is addis. He is currently on a regimen of Advair 100 mcg 1 inhalation twice daily and Spiriva one cap pollo inhaled daily. He does feel like this medication regimen is working for them. Currentl y he is using his rescue inhaler, ProAir, 2-4 times a week. He is using his nebulizer, albu terol/ipratropium, 2 times a day, in the morning. He returns today for routine follow up. Currently he is able to walk 6-8 blocks at his own pace on level ground. He is not exercisi ng regularly. He had not been walking on the treadmill. He went in at the beginning of and walked for May, and walked for 10 minutes. The next day he got sick, and he jus t never went back. He does more general walking when they are out. He does not cough chronically, he does bring up mucous on occasion. This is mainly when he has been sleeping on his PAP machine and wakes up and is congested and wakes up and needs to clear out his nose and cough some. He has not had any more hemoptysis. He has been evaluated for nocturnal oxygen and does use it. He is currently on 1 LPM at [facility] ht bled in to his BiPAP. He reports good compliance. He is also on a BiPAP at night and has had excellent compliance. He had his annual physical with Dr. Lorenzana and had extensive testing done and everything l ooked fine and he saw Dr. Fortune and everything looked okay as well. Past Medical History Past Medical History Diagnosis [...] times a year Aortic valve replacement/repair 03/10/2014 Joanie carbon valve, Dr. Elizondo Cardiac catherization 03/09/2014 Bronchoscopy for [...] Swelling Medications: Outpatient Encounter Prescriptions as of 07/31/2015 Medication Sig Dispense Refill albuterol (PROAIR HFA) [...] mouth 2 times daily. fluticasone-salmeterol (ADVAIR DISKUS) 100-50 mcg/puff diskus inhaler Inhale 1 puff int o the lungs Twice Daily. 3 each 3 Enffbvzrvwn-Nahjqbhwr-Mfo C-Mn (GLUCOSAMINE 1500 COMPLEX PO) Take 1,500 [...] (SPIRIVA HANDIHALER) 18 mcg inhalation capsule Inhale contents of one capsul e once daily (do not swallow capsules) 90 capsule 3 torsemide (DEMADEX) 20 mg tablet Take 40 mg by mouth 2 times daily. warfarin (COUMADIN) 7.5 mg tablet Take 7.5 mg by mouth Daily. Take 7.5mg on Monday and Monday. Take 10mg all other days No facility-administered encounter medications on file as of 07/31/2015. Review of Systems: General: []Weight loss/gain (over 10 lbs) []Fever/chills/sweats []Night sweats EENT: []Hearing loss []Vision loss/change []Sinus congestion/nasal drainage []Nosebleeds [x ]Hoarseness Cardiac: []Chest pain []Palpitations/heart racing [x]Swelling of legs/ankles []Waking up at night short of breath []Difficulty sleeping flat Gastrointestinal: []Nausea/vomiting []Difficulty swallowing []Heartburn/acid reflux []Loss of appetite []Abd ominal pain Urologic: []Blood in urine []Frequent urination at night []Burning/painful urination []Difficulty wit h urination Objective BP 122/60 mmHg | Pulse 60 | Temp(Src) 36.4 C (97.5 F) (Temporal) | Resp 16 | Ht 1.829 m (6') | Wt 124.286 kg (274 lb) | BMI 37.15 kg/m2 | SpO2 94% RA General Appearance: Alert, cooperative, no distress, appears stated age Head: Normocephalic, without obvious abnormality, atraumatic Eyes: PERRL, conjunctiva clear, no scleral icterus, EOM's intact Ears: Normal TM's, external auditory canals, normal acuity Nose: Nares normal, septum midline, mucosa normal Mouth: No oral lesions or exudate Neck: Supple, symmetrical, no adenopathy Lungs: No accessory muscle use, breath sounds are diminished bilaterally with prolongatio n of the expiratory phase, no wheezes, crackles or rhonchi Chest Wall: No deformity Heart: Regular rate and rhythm, faint murmur and a click murmur, no rub or gallop Abdomen: Soft, non-tender, non-distended, obese Extremities: No cyanosis, clubbing, or edema Pulses: Radial pulses 2+ and symmetric Skin: Warm and dry Lymph nodes: Cervical and supraclavicular nodes normal Data: Chest CT scan was done on April 07, 2015 and was reviewed and interpreted in clinic today . It shows a small focal scarring adjacent to the minor fissure and a mitral valve replaceme nt. No source for his hemoptysis was seen. Immunization History Administered Date(s) Administered INFLUENZA, HIGH DOSE SEASONAL (ADULT) 01/28/2015 INFLUENZA, TRIVALENT PRESERVATIVE FREE (PED/ADOL/ADULT) 04/18/2012, 02/03/2013, 014 PNEUMOCOCCAL CONJUGATE 13-VALENT (PCV13) 05/01/2014 PNEUMOCOCCAL POLYSACCHARIDE 23-VALENT (PPSV23) 07/19/2009 Assessment ICD-10-CM ICD-9-CM 1. Chronic obstructive pulmonary disease, unspecified COPD type ([facility]) J44.9 496 Doing well on current medications. He is very excited to start exercising again right now. He has lost a lot of weight following his valve replacement, and has since been steadily regaining it. 2. Obstructive sleep apnea on BiPAP G47.33 327.23 Reports good control and compliance, and no issues. 3. Nocturnal hypoxemia due to emphysema ([facility]) J43.9 492.8 We had tried weaning this down af ter his valve replacement, and while we decreased it, we could not get this all the way off. He is currently on 1L, with good compliance. G47.36 327.26 Plan 1.Continue on Advair 100 mcg dose 1 inhalation twice daily. 2.Continue on Spiriva one inhalation daily. 3.Continue ProAir and albuterol nebulizers as needed. These were refilled. 4. Continue BiPAP with sleep and 1L oxygen bleed in. I would recheck at next visit, mindy thorne in light of wildly fluctuating weight. 5. I did encourage him to get out and start walking at the park. He was advised to call if new pulmonary symptoms were to develop. Return to clinic in 1 year, or sooner with concerns. CC: Timo Lorenzana MD Portions of this report were transcribed using voice recognition software. Every effort wa s made to ensure accuracy; however, inadvertent computerized veterinary meat inspector errors may be pre sent. documented in t his encounter Plan of [...] | | | | | | [place] | | | | | | [address] | | | | | | | [...] | Diagnosis | + + | Chronic obstructive pulmonary disease, unspecified COPD type (HCC) - Primary | + + | Obstructive sleep apnea on BiPAP Obstructive sleep apnea (adult) (pediatric) | + + | 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"
--- OUTSIDE RECORDS SUMMARY | ~2019-12-07 | XMS | Encounter Summary ---
Demographics + + + | Address | [address] | | | [place] [address] | + + + | Home Phone | | + + + | Preferred Language | Unknown | + + + | Marital Status | | + + + | Taoist Affiliation | 1013 | + + + | Race | Unknown | + + + | Ethnic Group | Unknown | + + + Author + + + | Author | [facility] | | | and [place] | + + + | Organization | [facility] | | [...] | | | | [place] [address] | | + + + + + | Juana Gasca | ECON | [address] | | | | | [place] | | | | | [address] | | + + + + + | Chad Gasca | ECON | Unknown | | + + + + + Care Team Providers + +------+ + | Care Yarder Boss Name | Role | Phone | + [...] [place] | | | | | | [address] | | | | | | [phone] | | | +--------+ + + + [...] | | | | | [place] [facility] [place] | | | | | | [address] | | | | | | | [...]
--- OUTSIDE RECORDS SUMMARY | ~2019-12-07 | XMS | Encounter Summary ---
Demographics + + + | Address | [address] | | | [place] [address] | + + + | Home Phone | | + + + | Preferred Language | Unknown | + + + | Marital Status | | + + + | Muslim Affiliation | 1013 | + + + | Race | Unknown | + + + | Ethnic Group | Unknown | + + + Author + + + | Author | [facility] | | | and [place] | + + + | Organization | [facility] | | [...] | | | | [place] [address] | | + + + + + | Juana Gasca | ECON | [address] | | | | | [place] | | | | | [address] | | + + + + + | Chad Gasca | ECON | Unknown | | + + + + + Care Team Providers + +------+ + | Care Churn Driller Name | Role | Phone | + [...] | | | | | [place] [address] | | | | | | [phone] | | | +--------+ + + + [...] | | | | | [place] | | | | | | [address] | | | | | | | [...]
--- OUTSIDE RECORDS SUMMARY | ~2019-12-07 | XMS | Encounter Summary ---
Demographics + + + | Address | [address] | | | [place] [address] | + + + | Home Phone | | + + + | Preferred Language | Unknown | + + + | Marital Status | | + + + | Lutheran Affiliation | 1013 | + + + [...] | | | | [place] [address] | | + + + + + | Juana Ventura | ECON | [address] | | | | | [place] | | | | | [address] | | + + + + + | Chad Ventura | ECON | Unknown | | + + + + + Care Team Providers + +------+ + | Care Hedge Fund Principal Name | Role | Phone | + [...] + + | 07/19/ | [facility] | [place], | Cough (Primary Dx); | | 2012 | Visit | PULMONARY [address] | Florence You MD | COPD (chronic | | | | [place], | | obstructive | | | | [place] [address] | | pulmonary disease) | | | | [phone] | | ([facility]); MARY | | | | | | [...] 2:35 PM PSTFebruary 2012 Denise Ventura [address] [place] [address] Dear Denise: Thank you for enrolling in [employer]. Please follow the instructions below to view your [employer] online medical record. [employer] allows you to send secure messages to your doctor, view you r test results, renew your prescriptions, schedule appointments, and more. How Do I Sign Up? 1. In your Internet browser, go to [email or web address] 2. Click on the Sign Up Now link in the Sign In box. This will take you to the [facility] Sign Up page. 3. Enter your [employer] access code exactly as it appears below. You will not need to use this code after you sign up. If you do not sign up before the expiration date, you must requ est a new code through your [facility]. [employer] Access Code: [email or web address] Expires: 09/17/2012 14:35 4. Fill in the last four digits of your Social Security Number (xxxx) and Date of (mm/dd/yyyy) when asked and click Submit. You will now be asked to create a [employer] ID. 5. Create a Birds [employer] Systemst ID. This will be your [employer] login ID. Your login ID cannot be sharpe ged, so think of one that is secure and easy to remember. 6. Create a [employer] password. You can change your password at any time. 7. Enter your Password Reset Question and Answer. This can be used at a later time if yo u forget your password. 8. Enter your e-mail address. You will receive e-mail notification when new information is available in [employer]. 9. Click Sign Up. You may now view your medical record. Additional Information If you have questions, you can email [email or web address] or call [phone] to talk to our [facility] care team. Please remember, [employer] should NOT be used fo r urgent [...] any significant nasal congestion, he is using [place] Nasal [place] to treat any issu es in his [...] and Monday. Take 10mg all other days Wcxlkreaxdl-Byoryotoi-Zhn C-Mn (GLUCOSAMINE 1500 COMPLEX PO) Take 1,500 [...] [place] | | | | | | [address] | | | | | | | [...] Performed At | + + + | [facility] | [facility] | | Department [address] | [facility] | | [ rep [address]] [ rep [facility] | | st zip] Signed | - IMAGING | | | | | Patient Name: DENISE VENTURA Physician: | | | EDER. : 1935 Age: 77 Sex: M Unit #: [id number] | | | Exam Date: 07/19/12 Location: [facility] | | | Report #: [id number] Page: | | | %(RAD)RES..mtdd.print.filter("pg") of %(RAD) | | | RES..mtdd.print.filter("tpg") | | | | | | Accession Number: [id number] | | | TWO-VIEW CHEST CLINICAL HISTORY: [...] Transcribed Date/Time: | | | 07/19/2012 19:42 Laboratory Immunologist: | | | <<Signature on File>> | | | | | | Orlando Mehta MD07/20/12 0836 <Electronically signed by | | | Orlando Mehta MD> Orlando Mehta MD 07/19/12 | | | 6332 Laboratory Immunologist: Lj [id number] | | | Florence La MD | | + + + + + + + + | Performing | Address | City/State/Zipcode | Phone Number | | Organization | | | | + + + + + | [address] | [address] | [place] | [phone] | | [facility] | | [address] | | | - IMAGING | | [...]
--- OUTSIDE RECORDS SUMMARY | ~2019-12-07 | XMS | Encounter Summary ---
Demographics + + + | Address | [address] | | | [place] [address] | + + + | Home Phone [...] | | | | [place] [address] | | + + + + + | Juana Gasca | ECON | [address] | | | | | [place] | | | | | [address] | | + + + + + | Chad Gasca | ECON | Unknown | | + + + + + Care Team Providers + +------+ + | Care Dry Finisher Name | Role | Phone | + [...] + + | 09/21/ | [facility] | [facility] | [place], | COPD (Primary Dx); | | 2012 | Visit | PULMONARY [address] | Florence You MD | Obstructive sleep | | | | [place], | | apnea [place] BiPAP | | | | [place] [address] | | | | | | [phone] | | | +--------+---------+ + + + [...] and Monday. Take 10mg all other days Aztsiapdavn-Zugwxbbnz-Lrt C-Mn (GLUCOSAMINE 1500 COMPLEX PO) Take 1,500 [...] breath sounds are diminished bilaterally, no wheezes, line assembler aircraft ckles or rhonchi Chest Wall: No deformity [...] made to ensure accuracy; however, inadvertent computerized speech pathology teacher errors may be pre sent. documented in [...] | | | | | [place] | | | | | | [address] | | | | | | | [...]
--- OUTSIDE RECORDS SUMMARY | ~2019-12-07 | XMS | Encounter Summary ---
Demographics + + + | Address | [address] | | | [place] [address] | + + + | Home Phone | | + + + | Preferred Language | Unknown | + + + | Marital Status | | + + + | Spiritism Affiliation | 1013 | + + + [...] | | | | [place] [address] | | + + + + + | Juana Gasca | ECON | [address] | | | | | [place] | | | | | [address] | | + + + + + | Chad Gasca | ECON | Unknown | | + + + + + Care Team Providers + +------+ + | Care Adult Manager Name | Role | Phone | [...] + | 06/19/ | Refill | [facility] | Elif Hylton, | Medication Refill | | 2019 | | CARDIOLOGY BHUPINDER | [address] | (Lisinopril) | | | | [address] | [place] | | | | | [address] | [address] | | | | | [place] | | | | | | [address] | | | | | | [phone] | | | +--------+--------+ + + + [...] [place] | | | | | | [address] | | | | | | | [...]
--- OUTSIDE RECORDS SUMMARY | ~2019-12-07 | XMS | Encounter Summary ---
Demographics + + + | Address | [address] | | | [place] [address] | + + + | Home Phone | | + + + | Preferred Language | Unknown | + + + | Marital Status | | + + + | Mu-Ism Affiliation | 1013 | + + + | Race | Unknown | + + + | Ethnic Group | Unknown | + + + Author + + + | Author | [facility] | | | and [place] | + + + | Organization | [facility] | | [...] | | | | [place] [address] | | + + + + + | Juana Gasca | ECON | [address] | | | | | [place] | | | | | [address] | | + + + + + | Chad Gasca | ECON | Unknown | | + + + + + Care Team Providers + +------+ + | Care Announcer Name | Role | Phone | + +------+ + PCP | Unavailable | + +------+ + Encounter Details +--------+ + + + + | Date | Type | Department | Care Team | Description | +--------+ + + + + | 09/30/ | Hospital | [facility] | Jin Epps MD | CORONARY ATHEROSCLER | | 2005 - | Encounter | [facility] | [address] | [employer] | | | | CARE FLO[address] | [place] [address] | | | 10/01/ | | [address] | [phone] | | | 2004 | | [place], [place] | | | | | | [address] | Ramo Fortune | | | | | [phone] | MD [address] | | | | | | [address] | | | | | | [place] [address] | | | | | | [phone] | | | | | | | [...] FIELDS | | | | | | [facility] | | | | | | [address] | | | | | | | [...] + | Diagnosis | + + | Coronary atherosclerosis of unspecified type of vessel, little shell tribe or graft | + + documented in this encounter"
--- OUTSIDE RECORDS SUMMARY | ~2019-12-07 | XMS | Encounter Summary ---
Demographics + + + | Address | [address] | | | [place] [address] | + + + | Home Phone | | + + + | Preferred Language | Unknown | + + + | Marital Status | | + + + | Latter-Day Affiliation | 1013 | + + + | Race | Unknown | + + + | Ethnic Group | Unknown | + + + Author + + + | Author | [facility] | | | and [place] | + + + | Organization | [facility] | | | [...] | | | | [place] [address] | | + + + + + | Juana Gasca | ECON | [address] | | | | | [place] | | | | | [address] | | + + + + + | Chad Gasca | ECON | Unknown | | + + + + + Care Team Providers + +------+ + | Care Grease Maker Head Name | Role | Phone | [...] [address] | | | | | [place] [address] | | [address] | | | | | IMPLT[address] DFB | | [place], [place] | | | | | PLSE GEN | | [address] Phone: | | | | | W/REPL PLSE | | [phone] | | | | | GEN 1 LEAD | | Fax: | | | | | [place] | | [phone] | | | | | INSJ/RPLCMT | | | | | | | PERM DFB | | | | | | | W/TRNSVNS | | | | | | | LDS 1/DUAL | | | | | | | CHMBR SD | | | | | | | [...] + + | 11/12/ | Hospital | [facility] | Spenser Schultz, | Heart block; Heart | | 2019 | Encounter | [facility] | MD [address] | block; Cardiac | | | | [facility] [address] [facility] | [place], | pacemaker in situ; | | | | [place], [place] | [place] [address] | Atrial fibrillation, | | | | [address] | [phone] | chronic (HCC); S/P | | | | [phone] | | MVR (mitral valve | | [...] incision for one week when you shower [phone] ADTZ cell to send picture of incision in [...] Your appointments will be at the [facility] in [place] across from the [facility]. The [place] is [place], [place]. The office is located on the 3rd floor. This appointment should already be scheduled for you, but if not, please call [phone] to schedule your appointment. [facility] [...] to speak with the nurse at [phone]. There are certain signs of infection to [...] might be different fr om the original. [facility]: ELECTROPHYSIOLOGY INTERVAL H & P UPDATE [...] tablet Take 1,000 mcg by mouth daily. Eeqzgopgkkq-Bcbkqavcp-Swa C-Mn (GLUCOSAMINE 1500 COMPLEX PO) Take 3,000 [...] Hx Pacemaker/ICD: 08/30/2007, Guidant Insignia 1291, SN: [id number]. Last interrogation 10/30/2019 MARY, 96% ASSESSMENT: Patient [...] Spenser Schultz MD - 11/13/2019 1:46 PM [facility] OPERATIVE REPORT SPENSER SCHULTZ MD Patient: DENISE GASCA Admitting: SPENSER SCHULTZ MR #: [id number] LOC: PT TYPE: Adm Date: 11/13/2019 : [...] a [employer]. Herb model 1882TC, se rial #[id number]. The ventricular lead is a Guidant, model 4088, serial #[id number]. The current pacemaker is a Guidant, model 1291, serial #[id number]. PROCEDURE NOTE: The patient was brought to [...] The lead was attached to a new [employer] Accolade MRI compatible pacemaker (model L310, serial #[id number]). 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 Current pacemaker is at end-of-life Post-operative Diagnosis: Same Procedure(s): Permanent pacemaker generator change out. The dual-chamber pacemaker was melida ngraded to a single-chamber device. The atrial lead was capped off. [employer] scientific mackenzie forrester Surgeon: Spenser Schultz MD Gravity Prospecting Operator(s): Sam Anesthesia: Monitor Anesthesia care Estimated Blood [...] [place] | | | | | | [address] | | | | | | | [...] | | | | | performed at [facility] | | | | | | [facility];[place], [place] | | | | | | [address] | | | | + + + + + + + + | Specimen | + + | Blood | + + + + + + + | Performing | Address | City/State/Zipcode | Phone Number | | Organization | | | | + + + + + | [facility] | [address] | [place] [address] | [phone] | + + + + + Basic [...] | | | | | performed at [facility] | | | | | | [facility];[place], [place] | | | | | | [address] | | | | + + + + + + + + | Specimen | + + | Blood | + + + + + + + | Performing | Address | City/State/Zipcode | Phone Number | | Organization | | | | + + + + + | [facility] | [address] | [place] [address] | [phone] | + + + + + documented [...]
--- OUTSIDE RECORDS SUMMARY | ~2019-12-07 | XMS | Encounter Summary ---
Demographics + + + | Address | [address] | | | [place] [address] | + + + | Home Phone | | + + + | Preferred Language | Unknown | + + + | Marital Status | | + + + | Anabaptism Affiliation | 1013 | + + + | Race | Unknown | + + + | Ethnic Group | Unknown | + + + Author + + + | Author | [facility] | | | and [place] | + + + | Organization | [facility] | | | [...] | | | | [place] [address] | | + + + + + | Juana Gasca | ECON | [address] | | | | | [place] | | | | | [address] | | + + + + + | Chad Gasca | ECON | Unknown | | + + + + + Care Team Providers + +------+ + | Care Boarding Mother Name | Role | Phone | + [...] | (pediatric) | | | | [place] [address] | | | | | | [phone] | | | +--------+ + + + [...] | | | | | | [facility] [facility] | | | | | | [address] | | | | | | | [...]
--- OUTSIDE RECORDS SUMMARY | ~2019-12-07 | XMS | Encounter Summary ---
Demographics + + + | Address | [address] | | | [place] [address] | + + + | Home Phone | | + + + | Preferred Language | Unknown | + + + | Marital Status | | + + + | Yazdanism Affiliation | 1013 | + + + | Race | Unknown | + + + | Ethnic Group | Unknown | + + + Author + + + | Author | [facility] | | | and [place] | + + + | Organization | [facility] | | [...] | | | | [place] [address] | | + + + + + | Juana Gasca | ECON | [address] | | | | | [place] | | | | | [address] | | + + + + + | Chad Gasca | ECON | Unknown | | + + + + + Care Team Providers + +------+ + | Care Fountain Roller Assembler Name | Role | Phone | + [...] | | | | | [place] [address] | | | | | | [phone] | | | +--------+ + + + [...] [place] | | | | | | [address] | | | | | | | [...]
--- OUTSIDE RECORDS SUMMARY | ~2019-12-07 | XMS | Encounter Summary ---
Demographics + + + | Address | [address] | | | [place] [address] | + + + | Home Phone | | + + + | Preferred Language | Unknown | + + + | Marital Status | | + + + | Uatsdin Affiliation | 1013 | + + + | Race | Unknown | + + + | Ethnic Group | Unknown | + + + Author + + + | Author | [facility] | | | and [place] | + + + | Organization | [facility] | | [...] | | | | [place] [address] | | + + + + + | Juana Gasca | ECON | [address] | | | | | [place] | | | | | [address] | | + + + + + | Chad Gasca | ECON | Unknown | | + + + + + Care Team Providers + +------+ + | Care Mixing And Dispensing Supervisor Name | Role | Phone | [...] apnea on BiPAP | | | | [place], | | | | | | [place] [address] | | | | | | [phone] | | | +--------+ + + + [...] | | | | | [place] | | | | | | [address] | | | | | | | [...]
--- OUTSIDE RECORDS SUMMARY | ~2019-12-07 | XMS | Encounter Summary ---
Demographics + + + | Address | [address] | | | [place] [address] | + + + | Home Phone [...] | | | | [place] [address] | | + + + + + | Juana Gasca | ECON | [address] | | | | | [place] | | | | | [address] | | + + + + + | Chad Gasca | ECON | Unknown | | + + + + + Care Team Providers + +------+ + | Care Mechanical Manufacturing Technician Name | Role | Phone | [...] | 05/12/2013) | | | | [place] [address] | [address] | | | | | [phone] | | | +--------+ + + + [...] to go to the E [facility] at [facility] for difficulty breathing on 05/12/2013. He received a neb treatmen t, a chest x-ray, an Rx for Prednisone 4 tabs/day for 6 days (tomorrow with be his last day) . He was diagnosed with Active COPD and CHF. He says the Prednisone is helping and he is zuleyka athing easier. Will request films be loaded to [employer]. documented in this encounter Plan of Treatment [...] [place] | | | | | | [address] | | | | | | | [...]
--- OUTSIDE RECORDS SUMMARY | ~2019-12-07 | XMS | Encounter Summary ---
Demographics + + + | Address | [address] | | | [place] [address] | + + + | Home Phone | | + + + | Preferred Language | Unknown | + + + | Marital Status | | + + + | Worship Affiliation | 1013 | + + + | Race | Unknown | + + + | Ethnic Group | Unknown | + + + Author + + + | Author | [facility] | | | and [place] | + + + | Organization | [facility] | | [...] | | | | [place] [address] | | + + + + + | Juana Ventura | ECON | [address] | | | | | [place] | | | | | [address] | | + + + + + | Chad Venutra | ECON | Unknown | | + + + + + Care Team Providers + +------+ + | Care Convolute Tube Winder Name | Role | Phone | + +------+ + PCP | Unavailable | + +------+ + Encounter Details +--------+ + + + + | Date | Type | Department | Care Team | Description | +--------+ + + + + | 11/17/ | Hospital | [facility] | Gabriel Davila, | | | 2009 - | Encounter | [facility] | MD [address] | | | | | CARDIAC TELEMETRY | [address] | | | 11/19/ | | [address] | [place] [address] | | | 2009 | | [place] | [phone] | | | | | [address] | | | | | | [phone] | | | +--------+ + + + [...] MD - 04/10/2013 6:14 AM PSTPATIENT NAME: Denise Ventura Sex/Age: M/74 : 1935 [id number] ADMISSION DATE: 11/17/2009 DISCHARGE DATE: 11/19/2009 DISCHARGE DIAGNOSES 1. His ablation for atrial tachycardia refractory to therapy. 2. Atrial tachycardia. 3. Anticoagulation therapy. HISTORY Denise Ventura is a 74-year-old male well known [...] two weeks. Gabriel Davila MD [facility] #[id number] cc: Gabriel Davila MD AUDREYSegundo ADM:11/17/09 [id number] 11/19/09 DIS IN [id number] DISCHARGE SUMMARY Gabriel kee MD [facility] THIS REPORT IS CONFIDENTIAL AND NOT TO BE RELEASED WITHOUT PROPER AUTHORIZATION.Electronica lly signed by Gabriel Davila MD at 04/11/2013 2:07 AM PSTdocumented in this encounter Miscellaneous Notes Op Note - Gabriel Davila MD - 04/10/2013 6:14 AM PST PATIENT NAME: DENISE VENTURA Date of : 1935 Age/Sex: 74Y / M SURGEON: Gabriel Davila MD SURGERY DATE: 11/17/2009 [id number] / [id number] PROCEDURES: 1. His ablation. 2. Reprogramming of pacer. PROCEDURE: The patient presents to undergo His ablation. The risks and options were explai mark to him in great detail, on multiple occasions. He is known to have refractory atrial ta chycardias, refractory to medication and multiple ablations. He has a normally functioning DDD [employer] pacemaker in place. The right femoral groin was prepped and draped in usual sterile fashion. Local anesthesia was accomplished with 1% lidocaine. There was continuous heart rate, blood pressure, and sa turation monitoring performed throughout the procedure. The pacer was reprogrammed throughout the procedure to accommodate the His ablation. Using a needle and guidewire technique, the femoral vein was cannulated. An ablation catheter wa s positioned at the level of the tricuspid valve and a His potential was obtained. RF curre nt was applied to this location, as recorded by cineradiography. With the application of RF current, there was an accelerated junctional rhythm and then production of complete AV bl ock. Following the application of RF current, the patient was monitored for 30 minutes with no resumption of his AV conduction. Device was reprogrammed at the completion of the procedure at VVIR 80, and we will admit h im for close observation and followup. Gabriel Davila MD [facility]/all #[id number] cc: Gabriel Davila MD Segundo VENTURA ADM:11/17/09 [id number] [facility] [id number] OPERATIVE REPORT Gabriel kee MD E-SIGN: N [facility] THIS REPORT IS CONFIDENTIAL AND NOT TO [...] [place] | | | | | | [address] | | | | | | | [...]
--- OUTSIDE RECORDS SUMMARY | ~2019-12-07 | XMS | Encounter Summary ---
Demographics + + + | Address | [address] | | | [place] [address] | + + + | Home Phone [...] | | | | [place] [address] | | + + + + + | Juana Gasca | ECON | [address] | | | | | [place] | | | | | [address] | | + + + + + | Chad Gasca | ECON | Unknown | | + + + + + Care Team Providers + +------+ + | Care Baby Sitter Name | Role | Phone | + +------+ + | Timo Lorenzana | PCP | | | MD | | | + +------+ + Reason for Visit +--------+--------+ + | Reason | Onset | Comments | | | Date | | +--------+--------+ + | Other | 12/22/ | increased phlegm | | | 2014 | | +--------+--------+ + Encounter Details +--------+ + + + + | Date | Type | Department | Care Team | Description | +--------+ + + + + | 12/22/ | Telephone | [facility] [place] | [place], | Other (increased | | 2014 | | PULMONARY [address] | Florence You MD | phlegm) | | | | [place], | | | | | | [place] [address] | | | | | | [phone] | | | +--------+ + + + [...] Telephone Encounter - Cassidy Xavier RN - 12/22/2014 10:51 AM PDTCalled Serge and advis ed. He voiced understanding. Albuterol solution ordered. Advair and ProAir refilled at [facility] request. elepho ne Encounter - Florence La MD - 12/22/2014 9:11 AM PDTHe should not use Spiriva and Duonebs together as these two are never routinely recommended for co administration due to overlapping medication side effects. Okay to write for albuterol nebulizers 0.083% every 6 hours to use as needed if patient wou ld like in place of Duonebs. If not improved after 4 weeks on Spiriva, call back or seek care. Please update medication list. 15 9:13 AM PDTTelephone Encounter - Cassidy Xavier RN - 12/22/2014 8:57 AM Martir luis sebastien stating that he restarted the Spiriva on 12/06 and the DuoNeb one week ago as he's had in creased phlegm which is whitish in color for about one month. At his visit in June it was recommended that he stop the Spiriva and DuoNeb. He has continued to take the Advair daily. He uses the ProAir less than once daily. No recent fever or acute illness. Serge continues to use the BIPAP nightly. No significant change in shortness of breath or cough from his bas gustabo. Serge states that he feels better after taking the DuoNeb. He is scheduled for his 6 month follow up on Monday12/29/14.Electronically signed by Cassidy Xavier RN at 9:06 AM PDTdocumented in this encounter Plan of [...] | | | | | [place] [address] [place] | | | | | | [address] | | | | | | | [...]
--- OUTSIDE RECORDS SUMMARY | ~2019-12-07 | XMS | Encounter Summary ---
Demographics + + + | Address | [address] | | | [place] [address] | + + + | Home Phone [...] | | | | [place] [address] | | + + + + + | Juana Gasca | ECON | [address] | | | | | [place] | | | | | [address] | | + + + + + | Chad Gasca | ECON | Unknown | | + + + + + Care Team Providers + +------+ + | Care Architectural Designer Name | Role | Phone | + [...] Description | +--------+---------+ + + + | 03/29/ | Office | [facility] | Off[place], | COPD (chronic | | 2012 | Visit | PULMONARY [address] | Florence You MD | obstructive | | | | [place], | | pulmonary disease) | | | | [place] [address] | | ([facility]) (Primary Dx); | | | | [phone] | | Obstructive sleep | | | | | | apnea on BiPAP; | | | | | | Nocturnal hypoxemia; | | | | | | Calcific aortic | | | | | | stenosis | +--------+---------+ + + + Social History [...] + + + | Blood Pressure | 138/68 | 03/29/2013 11:29 AM | | | | | PDT | | + + + + + | Pulse | 61 | 03/29/2013 11:29 AM | | | | | PDT | | + + + + + | Temperature | - | - | | + + + + + | Respiratory Rate | - | - | | + + + + + | Oxygen Saturation | 96% | 03/29/2013 11:29 AM | | | | | PDT | | + + + + + | Inhaled Oxygen | - | - | | | Concentration | | | | + + + + + | Weight | 132 kg (291 lb) | 03/29/2013 11:29 AM | | | | | PDT | | + + + + + | Height | 184.2 cm (6' 0.5") | 03/29/2013 11:29 AM | | | | | PDT | | + + + + + | Body Mass Index | 38.92 | 03/29/2013 11:29 AM | | | | | PDT | | + + + + + documented in this encounter Patient Instructions Patient Instructions Florence La MD - 03/29/2013 12:13 PM PDTNo changes today. I agree with gradually increasing your exercise as tolerated, as long as okay with Dr. Fortune. BiPAP download to next visit. 13 12:16 PM PDT documented in this encounter Progress Notes Florence La MD - 03/29/2013 11:56 AM PDTFormatting of this note might be differe nt from the original. Pulmonary Follow Up Note MD Jody [facility] [address] [place], [address] HPI Serge Gasca is a 78 y.o. male patient of Timo Lorenzana here today for follo w up of COPD. At their last visit, we had continued the Spiriva and Daliresp. Since their last visit he feels like he has been doing pretty well. He had a urinary tract infection, for which he too k ciprofloxacin. He went yesterday for a Urethral procedure, a "roto router." He/she (caps) :[id number]} does feel like this medication regimen is working for them. They return today for ro utine follow up. Currently they are using their rescue inhaler, albuterol, 1 times a day, an d usually this is at night. Currently they are able to walk several blocks at their own pace on level ground. He is not exercising regularly. He notes his multiskill operator has been going to the health club, and offered to do water aerobics with him, or water walking. He does not cough chronically, though does produce mucous on occasion. He has not had hemo ptysis. He is on his nocturnal BiPAP at night with a 1 L bleed in to the BiPAP. He uses this nightl y. He has not had any issues with the machine. Past Medical History Past Medical History Diagnosis Date Coronary artery disease Aortic valve stenosis severe, follows with Dr. Fortune Mitral valve stenosis s/p replacement COPD (chronic obstructive pulmonary disease) Congestive heart failure Diabetes mellitus, type 2 Hypertension Hypothyroidism Osteoarthritis Otogenic vertigo Anemia MARY (obstructive sleep apnea) on auto BiPAP Dysphagia Atrial fibrillation s/p ablation and pacemaker BPH (benign prostatic [...] Succinate Medications: Outpatient Encounter Prescriptions as of 03/29/2013 Medication Status Sig Dispense Refill albuterol (PROAIR HFA) 90 mcg/puff inhaler Active Inhale 2 puffs into the lungs every 4 hours as needed for Shortness of Breath. 3 Inhaler 4 aspirin (ASPIRIN LOW DOSE) 81 MG tablet Active Take 81 mg by mouth Daily. carvedilol (COREG) 3.125 mg tablet Active 1/2 tablet twice daily CINNAMON PO Active Take 1,000 mg by mouth 2 times daily. fluticasone-salmeterol (ADVAIR DISKUS) 250-50 mcg/puff diskus inhaler Active 1 puff inh aled twice daily furosemide (LASIX) 40 mg tablet Active Take 40 mg by mouth every morning. Ybasxhfujiy-Xynwzbsmb-Klr C-Mn (GLUCOSAMINE 1500 COMPLEX PO) Active Take 1,500 mg by mo uth. Take 2 tablets every AM and 1 tablet every PM levothyroxine (SYNTHROID, LEVOTHROID) 150 mcg tablet Active Take 150 mcg by mouth Daily . lisinopril (PRINIVIL,ZESTRIL) 2.5 MG tablet Active Take 2.5 mg by mouth Daily. metFORMIN (GLUCOPHAGE) 500 mg tablet Active Take 500 mg by mouth 2 times daily. Multiple Vitamins-Minerals (EQL CENTRAL-ROSAMARIA) TABS Active Take one by mouth daily nitrofurantoin (MACRODANTIN) 50 MG capsule Active Take 50 mg by mouth nightly. nitroglycerin (NITROSTAT) 0.4 mg SL tablet Active Use as directed as needed omeprazole (PRILOSEC OTC) 20 mg tablet Active Take 20 mg by mouth Daily. Potassium Chloride Kaylene CR (KLOR-CON M20 PO) Active CR-TABS - 1 tablet by mouth twice d aily pravastatin (PRAVACHOL) 80 MG tablet Active Take 80 mg by mouth nightly. tiotropium (SPIRIVA HANDIHALER) 18 mcg inhalation capsule Active Inhale 1 capsule into the lungs Daily. 30 capsule warfarin (COUMADIN) 7.5 mg tablet Active Take 7.5 mg by mouth Daily. Take 7.5mg on and Monday. Take 10mg all other days Review of Systems Constitutional: Denies fever, chills, sweats. He is weighing himself daily, and has lost s ome weight. He did have sweats the other night. Sleep: Using BiPAP nightly. Eyes: Denies vision change and eye irritation. ENT: Denies earache, decreased hearing, nasal congestion, nosebleeds, sore throat, and manpreet rseness. Resp: See HPI. CV: Denies chest pain, palpitations, syncope, and peripheral edema. : Recent UTI, and then had stricture dilated. Objective BP 138/68 | Pulse 61 | Ht 1.842 m (6' 0.5") | Wt 131.997 kg (291 lb) | BMI 38.92 kg/m2 | Sp O2 96% RA General Appearance: Alert, cooperative, no distress, appears stated age, obese Head: Normocephalic, without obvious abnormality, atraumatic Eyes: PERRL, conjunctiva clear, no scleral icterus, EOM's intact Ears: Normal TM's, external auditory canals, slightly diminished acuity Nose: Nares normal, septum midline, mucosa normal Mouth: No oral lesions or exudate Neck: Supple, symmetrical, no adenopathy Lungs: No accessory muscle use, breath sounds are diminsihed bilaterally with prolongatio n of the expiratory phase, no wheezes, crackles or rhonchi Chest Wall: No deformity Heart: Regular rate and rhythm, 2-3/6 harsh systolic murmur, norub or gallop Abdomen: Soft, non-tender, non-distended, obese Extremities: No cyanosis, clubbing, 1+ pitting bilateral lower extremity edema Pulses: Radial pulses 1+ and symmetric Skin: Warm and dry Lymph nodes: Cervical and supraclavicular nodes normal Data: BiPAP Data: Dates: 12/26/12-03/25/13 Machine type: Respironics BiPAP auto Home Health Company: [facility] Maximum titrated IPAP: 16.0 cmH2O Average IPAP: 13.5 cmH2O Maximum titrated EPAP: 14.0 cmH2O Average EPAP: 11.3 cmH2O AHI: 1.3 events/hour Total number of days: 90 Number of days used: 0 Median daily usage: 5:48 hours Percent of days used for more than 4 hours: 97.8 % Average time in large leak: 8 minutes Immunization History Administered Date(s) Administered INFLUENZA, PRESERVATIVE FREE IM 04/18/2012, 02/03/2013 Pneumococcal (Adult) 07/19/2009 Assessment 1. COPD (chronic obstructive pulmonary disease) - Stable on Advair and Spiriva. No further exacerbations. I noted that he should increase exercise as tolerated, as long as his cardiol ogist also feels this is appropriate (known history of severe ). 2. Obstructive sleep apnea on BiPAP - Well controlled with excellent compliance. No changes today. 3. Nocturnal hypoxemia - On 1L bleed in to BiPAP. 4. Calcific aortic stenosis - Severe and follows with Dr. Fortune. Plan 1.Continue Advair and Spiriva. 2.Continue BiPAP at current settings. 3.Continue nocturnal oxygen at 1L. 4. Exercise encouraged as long as also okay with Dr. Fortune. He was advised to call if new pulmonary symptoms were to develop. Return to clinic in 6 months, or sooner with concerns. CC: Timo Lorenzana Portions of this report were transcribed using voice recognition software. Every effort wa s made to ensure accuracy; however, inadvertent computerized retail stocker errors may be pre sent. documented in [...] | | 2019 | Visit | | As[facility] | | | | | | [facility] | | | | | | [address] | | | | | | | [...] | COPD (chronic obstructive pulmonary disease) (HCC) - Primary Chronic airway | | obstruction, not elsewhere classified | + + | Obstructive sleep apnea on BiPAP Obstructive sleep apnea (adult) (pediatric) | + + | Nocturnal hypoxemia Hypoxemia | + + | Calcific aortic stenosis Aortic valve disorders | + + documented in this encounter
--- OUTSIDE RECORDS SUMMARY | ~2019-12-07 | XMS | Encounter Summary ---
Demographics + + + | Address | [address] | | | [place] [address] | + + + | Home Phone [...] | | | | [place] [address] | | + + + + + | Juana Gasca | ECON | [address] | | | | | [place] | | | | | [address] | | + + + + + | Chad Gasca | ECON | Unknown | | + + + + + Care Team Providers + +------+ + | Care Operations Logistics Analyst Name | Role | Phone | [...] Description | +--------+--------+ + + + | 08/12/ | Refill | [facility] | Yuri Raymond | Medication Refill | | 2019 | | PULMONOLOGY [address] | Rush Raymond MD [address] | | | | | [address] | [address] | | | | | [place] | [place] [address] | | | | | [address] | [phone] | | | | | [phone] | | | +--------+--------+ + + + [...] | | | | | [place], [place] | | | | | | [address] | | | | | | | [...] type (HCC) - Primary | + + documented in this encounter"
--- OUTSIDE RECORDS SUMMARY | ~2019-12-07 | XMS | Encounter Summary ---
Demographics + + + | Address | [address] | | | [place] [address] | + + + | Home Phone | | + + + | Preferred Language | Unknown | + + + | Marital Status | | + + + | Latter Day Affiliation | 1013 | + + + | Race | Unknown | + + + | Ethnic Group | Unknown | + + + Author + + + | Author | [facility] | | | and [place] | + + + | Organization | [facility] | | | [...] | | | | [place] [address] | | + + + + + | Juana Gasca | ECON | [address] | | | | | [place] | | | | | [address] | | + + + + + | Chad Gasca | ECON | Unknown | | + + + + + Care Team Providers + +------+ + | Care Door Closer Name | Role | Phone | + +------+ + | Timo Lorenzana | PCP | | | MD | | | + +------+ + Encounter Details +--------+ + + + + | Date | Type | Department | Care Team | Description | +--------+ + + + + | 12/22/ | Documentati | [facility] [place] | D[place], | | | 2014 | on | PULMONARY [address] | Florence You MD | | | | | [place], | | | | | | [place] [address] | | | | | | [phone] | | | +--------+ + + + [...] documented as of this encounter Progress Notes Florence La MD - 12/22/2014 1:45 PM PDTFormatting of this note might be differe nt from the original. BiPAP NOTE HPI Serge Gasca is a 79 y.o. y.o. male patient of Timo Lorenzana MD. BiPAP download reviewed. Past Medical History Past Medical History Diagnosis [...] TURP and gets dilated periodically Urethral stricture Medications: Current outpatient prescriptions: albuterol (PROAIR HFA) 90 mcg/puff inhaler, Inhale 2 puff s into the lungs every 4 hours as needed for Shortness of Breath., Disp: 3 Inhaler, Rfl: 4; albuterol 2.5 mg/3 mL nebulizer solution, In nebulizer every 4 hours as needed for shortnes s of breath, Disp: 1080 mL, Rfl: 4; aspirin (ASPIRIN LOW DOSE) 81 MG tablet, Take 81 mg by mouth Daily., Disp: , Rfl: carvedilol (COREG) 3.125 mg tablet, 1/2 tablet twice daily, Disp: , Rfl: ; CINNAMON PO, T ebony 1,000 mg by mouth 2 times daily., Disp: , Rfl: ; fluticasone-salmeterol (ADVAIR DISKUS) 250-50 mcg/puff diskus inhaler, 1 puff inhaled twice daily, Disp: 3 each, Rfl: 4; Glucosam keh-Cagtfhqis-Pzh C-Mn (GLUCOSAMINE 1500 COMPLEX PO), Take 1,500 mg by mouth. Take 2 tablets every AM and 1 tablet every PM, Disp: , Rfl: levothyroxine (SYNTHROID, LEVOTHROID) 150 mcg tablet, Take 150 mcg by mouth Daily., Disp: , Rfl: ; lisinopril (PRINIVIL,ZESTRIL) 2.5 MG tablet, Take 2.5 mg by mouth Daily., Disp: , R fl: ; metFORMIN (GLUCOPHAGE) 500 mg tablet, Take 500 mg by mouth 2 times daily., Disp: , Rf l: ; Multiple Vitamins-Minerals (EQL CENTRAL-ROSAMARIA) TABS, Take one by mouth daily, Disp: , R fl: nitrofurantoin (MACRODANTIN) 50 MG capsule, Take 50 mg by mouth nightly., Disp: , Rfl: ; n itroglycerin (NITROSTAT) 0.4 mg SL tablet, Use as directed as needed, Disp: , Rfl: ; omepra zole (PRILOSEC OTC) 20 mg tablet, Take 20 mg by mouth Daily., Disp: , Rfl: ; Potassium Chlo ride Kaylene CR (KLOR-CON M20 PO), CR-TABS - 1 tablet by mouth twice daily, Disp: , Rfl: ; pra vastatin (PRAVACHOL) 80 MG tablet, Take 80 mg by mouth nightly., Disp: , Rfl: Respiratory Therapy Supplies [facility] Discontinue nebulizer. Fax to [facility]., Disp: 1 each, Rfl: 99; torsemide (DEMADEX) 20 mg tablet, Take 40 mg by mouth 2 times daily., Disp: , Rfl: ; warfarin (COUMADIN) 7.5 mg tablet, Take 7.5 mg by mouth Daily. Take 7.5mg on and Monday. Take 10mg all other days, Disp: , Rfl: Objective BIPAP Data: Dates: 11/22/14-12/21/14 Machine type: Respironics [...] in Large Leak per Day: 28 seconds Assessment 1. MARY on BiPAP Plan 1.Reviwed at clinic visit. Florence La MD documented in t his encounter Plan of [...] [place] | | | | | | [address] | | | | | | | [...]
--- OUTSIDE RECORDS SUMMARY | ~2019-12-07 | XMS | Encounter Summary ---
Demographics + + + | Address | [address] | | | [place] [address] | + + + | Home Phone | | + + + | Preferred Language | Unknown | + + + | Marital Status | | + + + | Restoration Affiliation | 1013 | + + + | Race | Unknown | + + + | Ethnic Group | Unknown | + + + Author + + + | Author | [facility] | | | and [place] | + + + | Organization | [facility] | | [...] | | | | [place] [address] | | + + + + + | Juana Gasca | ECON | [address] | | | | | [place] | | | | | [address] | | + + + + + | Chad Gasca | ECON | Unknown | | + + + + + Care Team Providers + +------+ + | Care Flexible Nanny Name | Role | Phone | + [...] + + | 11/10/ | Telephone | [facility] | Spenser Potter, | Cardiac Problem | | 2019 | | CARDIOLOGY JULIAN | [address] | | | | | [address] | [place], | | | | | [place] | [place] [address] | | | | | [address] | [phone] | | | | | [phone] | | | +--------+ + + + [...] insurance did not approve it and a [id number] evaluation was needed". U nfortunately, I did not know anything about this. The rep was there today also ([facility]). I told him we would get this done on Monday, at 11:30 AM and he dominique berry show up at 10 AM. He has the insurance approval letter in his hands ([employer]). He understands the need to take Hibiclens [...] | | | | | [place] | | | | | | [address] | | | | | | | [...]
--- OUTSIDE RECORDS SUMMARY | ~2019-12-07 | XMS | Encounter Summary ---
Demographics + + + | Address | [address] | | | [place] [address] | + + + | Home Phone [...] | | | | [place] [address] | | + + + + + | Juana Gasca | ECON | [address] | | | | | [place] | | | | | [address] | | + + + + + | Chad Gasca | ECON | Unknown | | + + + + + Care Team Providers + +------+ + | Care Public Health Educator Name | Role | Phone | + [...] Description | +--------+---------+ + + + | 04/03/ | Office | [facility] | Elif Weinstein, | Atrial fibrillation, | | 2019 | Visit | CARDIOLOGY BHUPINDER | [address] | chronic (HCC) | | | | [address] | [place], [place] | (Primary Dx); | | | | [place] [address] | [address] | Hypertension; | | | | [place] | | Obstructive sleep | | | | [address] | | apnea on BiPAP; S/P | | | | [phone] | | AVR (aortic valve | | | | | | replacement); S/P | | | | | | MVR (mitral valve | | | | | | replacement); | | | | | | Cardiac pacemaker in | | | | | | situ | +--------+---------+ + + + Social History [...] + documented in this encounter Progress Notes Elif Weinstein MD - 04/03/2019 10:00 AM PDTFormatting of this note might be different f rom the original. Date of visit: 04/03/2019 Primary Care Physician: Timo Lorenzana MD CHIEF [...] decreased secondary to significant left knee pain, received steroid injection, planning for right knee replacement on June 24, 2019. Blood pressure and weight continues to be monitored within controlled limits. Wears pressure socks for lower ext edema swelling. Blood pressure has been controlled, on l ow doses of Carvedilol and Lisinopril. Has a treadmill at home however he is not using it. Past medical history, SH, FH, and medications were reviewed in the chart. Medications: Outpatient Encounter Medications as of 04/03/2019 Medication Sig Dispense Refill [DISCONTINUED] albuterol (PROAIR HFA) 90 mcg/puff inhaler Inhale 2 puffs into the lungs every 4 hours as needed for Shortness of Breath. 3 Inhaler 4 Albuterol (VENTOLIN IN) Inhale into the lungs. albuterol 2.5 mg/3 mL nebulizer solution Take 3 mLs by nebulization every 6 (six) hours as needed for Wheezing. aspirin 81 mg EC tablet Take 81 mg by mouth Daily. carvedilol (COREG) 3.125 mg tablet Daily [DISCONTINUED] carvedilol (COREG) 3.125 mg tablet 1/2 tablet twice daily CINNAMON PO Take 1,000 mg by mouth daily. cyanocobalamin (VITAMIN B-12) 1000 MCG tablet Take 1,000 mcg by mouth daily. fluticasone-salmeterol (ADVAIR, WIXELA INHUB) 100-50 mcg/puff diskus inhaler Inhale 1 p uff into the lungs 2 (two) times daily. Dhlpbbiaecn-Vazbqgtyi-Jxa C-Mn (GLUCOSAMINE 1500 COMPLEX PO) Take 3,000 mg by mouth priya ly. levothyroxine (SYNTHROID, LEVOTHROID) 150 mcg tablet Take 150 mcg by mouth Daily. lisinopril (PRINIVIL,ZESTRIL) 2.5 MG tablet Take 2.5 mg by mouth Daily. metFORMIN (GLUCOPHAGE) 850 mg tablet Take 850 mg by mouth 3 (three) times daily. MULTIPLE VITAMINS-MINERALS ER PO Take by mouth daily. nitrofurantoin (MACRODANTIN) 50 MG capsule Take 50 mg by mouth nightly. [DISCONTINUED] nitroglycerin (NITROSTAT) 0.[address] 1 tablet under the tong ue every 5 minutes if needed for chest pain may repeat 3 TIMES THEN GO TO ER [DISCONTINUED] omeprazole (PRILOSEC OTC) 20 mg tablet Take 20 mg by mouth Daily. omeprazole (PRILOSEC) 20 mg capsule Take 20 mg by mouth every morning before breakfast. Potassium Chloride Kaylene CR (KLOR-CON M20 PO) [...] TABLETS BY MOUTH 2 TIMES DAILY NEEDED. (Pat ient taking differently: 40 mg in AM, PM PRN) 360 tablet 1 [DISCONTINUED] warfarin (COUMADIN) 10 mg tablet Take 10 mg by mouth daily. Sliding [facility], [place] regulates warfarin (COUMADIN) 7.5 mg tablet Take 7.5 mg by mouth Daily. Take 7.5mg on Monday and Monday. Take 10mg all other days No facility-administered encounter medications on file as of 04/03/2019. Allergies Allergies Allergen Reactions Sulfa Antibiotics Hives Metoprolol Succinate Swelling REVIEW OF SYSTEMS: Constitutional: Positive for mild fatigue weight has been stable. HEENT: Negative [...] or anxiety. PHYSICAL EXAM Vital Signs: BP 104/52 | Pulse 61 | Ht 1.854 m (6' 1") | Wt 112.4 kg (247 lb 14.4 oz) | SpO2 96% | BMI 32.71 kg/m GENERAL APPEARANCE: Alert, oriented, cooperative, no [...] Results Component Value Date/Time NA 132 04/03/2014 14:00 NA 129 (L) 03/14/2014 04:40 NA 134 (L) 03/13/2014 06:30 K 4.2 04/03/2014 14:00 K 5.1 (H) 03/14/2014 04:40 K 4.9 03/13/2014 06:30 CO2 28 04/03/2014 14:00 CO2 27 03/14/2014 04:40 CO2 27 03/13/2014 06:30 BUN 34 (A) 04/03/2014 14:00 BUN 24 03/14/2014 04:40 BUN 22 03/13/2014 06:30 CALCIUM 9.5 04/03/2014 14:00 CALCIUM 8.8 03/14/2014 04:40 CALCIUM 8.7 03/13/2014 06:30 MG 2.3 03/14/2014 04:40 MG 2.4 03/13/2014 06:30 MG 2.6 (H) 03/12/2014 02:48 Lab Results Component Value Date/Time WBC 10.9 03/14/2014 04:40 WBC 15.2 (H) 03/13/2014 06:30 WBC 16.0 (H) 03/12/2014 02:48 HGB 8.8 (L) 03/14/2014 04:40 HGB 9.1 (L) 03/13/2014 06:30 HGB 8.9 (L) 03/12/2014 02:48 HGB 8.5 (L) 03/10/2014 19:26 HGB 8.5 (L) 03/10/2014 18:31 HGB 8.8 (L) 03/10/2014 18:03 MCV 98.9 03/14/2014 04:40 MCV 97.4 03/13/2014 06:30 MCV 99.2 03/12/2014 02:48 LABPLAT 126 (L) 03/14/2014 04:40 LABPLAT 134 (L) 03/13/2014 06:30 LABPLAT 111 (L) 03/12/2014 02:48 Lab Results Component Value Date ALT 15 03/07/2014 GLUF 114 (A) 04/03/2014 GLUF 101 (H) 03/14/2014 ECG, 09/12/2018 Ordered and reviewed by myself [...] AVR 2013, On-X (RHD/). Hx Pacemaker/ICD: 08/30/2007, Guidshelby Millerignshan 1291, SN: [id number]. Last interrogation 11/19/2018 1 year, RV pacing 95%. ASSESSMENT: Patient is 84 y.o. with 1. [...] volume overload. 6. History of pacemaker implant. Normal function on last interrogation. 7. Chronic kidney disease stage III. 8. Chronic arthritic pain, left knee planning for replacement in June 2019. Plan: Patient continues to be hemodynamically stable, tolerating medical therapy. No signs of co ngestive heart failure, no anginal symptoms. Preserved systolic function on the most recent echocardiogram. Patient is moderate risk however not prohibitive to proceed with above clark caitlin in the current clinical evaluation. Given patient [...] report please contact me. Elif Weinstein MD, MPH A M PDTdocumented in this encounter Plan of Treatment +--------+ + + + + | Date | Type | Specialty | Care Team | Description | +--------+ + + + + | 03/09/ | Procedure | Cardiology | | | | 2019 | visit | | | | +--------+ + + + + | 05/06/ | Office | Cardiology | Elif Weinstein, | | | 2019 | Visit | | MD [address]ad [address] | | | | | | [place] | | | | | | [address] | | | | | | | [...] Primary Atrial fibrillation | + + | Hypertension Essential hypertension, benign | + + | Obstructive sleep apnea on BiPAP Obstructive sleep apnea (adult) (pediatric) | + + | S/P AVR (aortic valve replacement) Heart valve replaced by other means | + + | S/P MVR (mitral valve replacement) Heart valve replaced by other means | + + | Cardiac pacemaker in situ | + + documented in this encounter
--- OUTSIDE RECORDS SUMMARY | ~2019-12-07 | XMS | Encounter Summary ---
Demographics + + + | Address | [address] | | | [place] [address] | + + + | Home Phone [...] | | | | [place] [address] | | + + + + + | Juana Gasca | ECON | [address] | | | | | [place] | | | | | [address] | | + + + + + | Chad Gasca | ECON | Unknown | | + + + + + Care Team Providers + +------+ + | Care Mail Processing Associate Name | Role | Phone | [...] + + | 11/17/ | Telephone | [facility] | Coty Bruner, | Post-op Question | | 2020 | | CARDIOLOGY [place] | | | | | [address] | | | | | | [place] | | | | | | [address] | | | | | | [phone] | | | +--------+ + + + [...] would like a call back please at [phone] onically signed by Coty Bruner CMA at [...] | | | | | [place], [place] | | | | | | [address] | | | | | | | [...]
--- OUTSIDE RECORDS SUMMARY | ~2019-12-07 | XMS | Encounter Summary ---
Demographics + + + | Address | [address] | | | [place] [address] | + + + | Home Phone | | + + + | Preferred Language | Unknown | + + + | Marital Status | | + + + | Alevism Affiliation | 1013 | + + + [...] | | | | [place] [address] | | + + + + + | Juana Gasca | ECON | [address] | | | | | [place] | | | | | [address] | | + + + + + | Chad Gasca | ECON | Unknown | | + + + + + Care Team Providers + +------+ + | Care Underwriting Intern Name | Role | Phone | + [...] | | | | | | [place] [address] | | | | | | [phone] | | | +--------+ + + + [...] | | | | | [place], [place] | | | | | | [address] | | | | | | | [...]
--- OUTSIDE RECORDS SUMMARY | ~2019-12-07 | XMS | Encounter Summary ---
Demographics + + + | Address | [address] | | | [place] [address] | + + + | Home Phone [...] | | | | [place] [address] | | + + + + + | Juana Gasca | ECON | [address] | | | | | [place] | | | | | [address] | | + + + + + | Chad Gasca | ECON | Unknown | | + + + + + Care Team Providers + +------+ + | Care Administrative Analyst Name | Role | Phone | [...] + | 12/28/ | Office | [facility] | [place], | COPD (chronic | | 2012 | Visit | PULMONARY [address] | Florence You MD | obstructive | | | | [place], | | pulmonary disease) | | | | [place] [address] | | ([facility]) (Primary Dx); | | | | [phone] | | Obstructive sleep | | | [...] an overnight oxy gen test through [facility]. You will hot die picker a box at the [facility], wear th e finger probe through the night and then return the box for a download the next day. Do the test on your BiPAP. Call the [facility] before you pick it up to make sure they ibarra ve a box available. Bring a download to your next appointment. documented in this encounter Progress Notes Florence La MD - 12/28/2012 2:37 PM PDTFormatting of this note might be differe nt from the original. Pulmonary Follow Up Note MD Jody [facility] [address] [place], [address] HPI Serge Gasca is a 77 y.o. male patient of Timo Lorenzana here today for follo w up of COPD. Since in last time, he had a brief hospitalization in October at [facility] for a COPD exace rbation. We called [...] Take 40 mg by mouth every morning. Ezvzgshwcwe-Aesjezbaf-Ddv C-Mn (GLUCOSAMINE 1500 COMPLEX PO) Take 1,500 [...] made to ensure accuracy; however, inadvertent computerized physician allergist immunologist errors may be pre sent. documented in [...] [place] | | | | | | [address] | | | | | | | [...]
--- OUTSIDE RECORDS SUMMARY | ~2019-12-07 | XMS | Encounter Summary ---
Demographics + + + | Address | [address] | | | [place] [address] | + + + | Home Phone [...] | Author | [facility] | | | and [place] | + + + | Organization | [facility] | | | and [place] | + + + | Address | Unknown | + + + | Phone | Unavailable | + + + Support + + + + + | Name | Relationship | Address | Phone | + + + + + | Frances Ventura | ECON | NA | | | | | [place] [address] | | + + + + + | Juana Ventura | ECON | [address] | | | | | [place] | | | | | [address] | | + + + + + | Chad Ventura | ECON | Unknown | | + + + + + Care Team Providers + +------+ + | Care Branch Operations Specialist Name | Role | Phone | [...] + + | 07/19/ | Office | [facility] | [place], | Cough (Primary Dx); | | 2012 | Visit | PULMONARY [address] | Florence You MD | COPD (chronic | | | | [place], | | obstructive | | | | [place] [address] | | pulmonary disease) | | | | [phone] | | ([facility]); MARY | | | | | | [...] 2:35 PM PSTFebruary 2012 Denise Ventura [address] [place] [address] Dear Denise: Thank you for enrolling in [employer]. Please follow the instructions below to view your TrillTip online medical record. V[employer] allows you to send secure messages to your doctor, view you r test results, renew your prescriptions, schedule appointments, and more. How Do I Sign Up? 1. In your Internet browser, go to [email or web address] 2. Click on the Sign Up Now link in the Sign In box. This will take you to the [facility] Sign Up page. 3. Enter your Vide[employer] access code exactly as it appears below. You will not need to use this code after you sign up. If you do not sign up before the expiration date, you must requ est a new code through your [facility]. [employer] Access Code: [email or web address] Expires: 09/17/2012 14:35 4. Fill in the last four digits of your Social Security Number (xxxx) and Date of (mm/dd/yyyy) when asked and click Submit. You will now be asked to create a Videoplaza ID. 5. Create a Inter[employer] Networkst ID. This will be your V[employer] login ID. Your login ID cannot be sharpe ged, so think of one that is secure and easy to remember. 6. Create a V[employer] password. You can change your password at any time. 7. Enter your Password Reset Question and Answer. This can be used at a later time if yo u forget your password. 8. Enter your e-mail address. You will receive e-mail notification when new information is available in [employer]aza. 9. Click Sign Up. You may now view your medical record. Additional Information If you have questions, you can email [email or web address] or call [phone] to talk to our [facility] care team. Please remember, [employer] should NOT be used fo r urgent [...] any significant nasal congestion, he is using [place] [facility] [place] to treat any issu es in his [...] and Monday. Take 10mg all other days Kakreqpkmio-Clvngtzua-Tjn C-Mn (GLUCOSAMINE 1500 COMPLEX PO) Take 1,500 [...] [place] | | | | | | [address] | | | | | | | [...] Performed At | + + + | [facility] | [place] | | Department [address] [facility] | [facility] | | [ rep [address]] [ rep [facility] | | st zip] Signed | - IMAGING | | | | | Patient Name: DENISE VENTURA Physician: | | | EDER. : 1935 Age: 77 Sex: M Unit #: [id number] | | | Exam Date: 07/19/12 Location: [facility] | | | Report #: [id number] Page: | | | %(RAD)RES..mtdd.print.filter("pg") of %(RAD) | | | RES..mtdd.print.filter("tpg") | | | | | | Accession Number: [id number] | | | TWO-VIEW CHEST CLINICAL HISTORY: [...] Transcribed Date/Time: | | | 07/19/2012 19:42 Lube Attendant: | | | <<Signature on File>> | | | | | | Orlando Mehta MD07/20/12 0836 <Electronically signed by | | | Orlando Mehta MD> Orlando Mehta MD 07/19/12 | | | 4543 Lube Attendant: Lj [id number] | | | Florence La MD | | + + + + + + + + | Performing | Address | City/State/Zipcode | Phone Number | | Organization | | | | + + + + + | [address] | [address] | [place] | [phone] | | [facility] | | [address] | | | - IMAGING | | [...]
--- OUTSIDE RECORDS SUMMARY | ~2019-12-07 | XMS | Encounter Summary ---
Demographics + + + | Address | [address] | | | [place] [address] | + + + | Home Phone [...] | | | | [place] [address] | | + + + + + | Juana Gasca | ECON | [address] | | | | | [place] | | | | | [address] | | + + + + + | Chad Gasca | ECON | Unknown | | + + + + + Care Team Providers + +------+ + | Care Collection Team Lead Name | Role | Phone | + [...] | | | | Diagnoses | | Spenesr Potter | | | | | Heart block | | MD Gorge | | | | | Procedures | | [address] | | | | | [place] [address] | | [address] | | | | | IMPLTBL DFB | | [place], [place] | | | | | PLSE GEN | | [address] Phone: | | | | | W/REPL PLSE | | [phone] | | | | | GEN 1 LEAD | | Fax: | | | | | [place] | | [phone] | | | | | INSJ/RPLCMT | | | | | | | PERM DFB | | | | | | | W/TRNSVNS | | | | | | | LDS 1/DUAL | | | | | | | CHMBR SC | | | | | | | [...] + + | 11/12/ | Anesthesia | [facility] | Belle Murray, | | | 2020 | Event | [facility] CATH | EXTERMINATOR HELPER [address] | | | | | LAB [address] | [place] [address] | | | | | [place], [place] | [phone] | | | | | [address] | | | | | | [phone] | | | +--------+ + + + + Anesthesia Record + + + + + | Procedure Name | Responsible | Anesthesia Start | Anesthesia Stop Time | | | Anesthesiologist | Time | | + + + + + | CV EP PM GEN CHANGE | Belle Murray, | 11/13/19 1248 | 11/13/19 1355 | | (Left ) | EXTERMINATOR HELPER | | | + + + + [...] 1420 by | | eral | Wrist; uapn-uag-qizedq catheter | Bria Casanova RN | Krys [...] EVALUATION Serge Gasca 84 y.o. male 1935 [id number] Procedure(s) CV EP PM GEN CHANGE (Left [...] by Belle Murray CRNA 11/13/2019 1:56 PM [facility] signed by Belle Murray CRNA at 020 1:57 PM PDTAnesthesia Preprocedure Evaluation - Belle Murray CRNA - 11/13/2019 11: 31 AM PDT ANESTHESIA PREANESTHESIA EVALUATION Serge Gasca 84 y.o. male 1935 [id number] Procedure(s): CV EP PM GEN CHANGE (Left [...] Serge Rmbigg Gasca 84 y.o. 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 Belle Murray CRNA 11/13/2019 1:55 PM [facility] signed by Belle Murray CRNA [...] | | | | | | [facility] [place] | | | | | | [address] | | | | | | | [...]
--- OUTSIDE RECORDS SUMMARY | ~2019-12-07 | XMS | Encounter Summary ---
Demographics + + + | Address | [address] | | | [place] [address] | + + + | Home Phone | | + + + | Preferred Language | Unknown | + + + | Marital Status | | + + + | Rastafarian Affiliation | 1013 | + + + [...] | | | | [place] [address] | | + + + + + | Juana Ventura | ECON | [address] | | | | | [place] | | | | | [address] | | + + + + + | Chad Ventura | ECON | Unknown | | + + + + + Care Team Providers + +------+ + | Care Emergency Response Officer Name | Role | Phone | + +------+ + PCP | Unavailable | + +------+ + Encounter Details +--------+ + + + + | Date | Type | Department | Care Team | Description | +--------+ + + + + | 10/08/ | Hospital | [facility] | Gabriel Davila, | | | 2007 - | Encounter | HEART MED CTR | MD Anneliese [address] | | | | | CARDIAC TRANSPLANT | [address] [address] | | | 10/10/ | | [address] | [place] [address] | | | 2007 | | [place] | [phone] | | | | | [address] | | | | | | [phone] | | | +--------+ + + + [...] MD - 04/10/2013 3:47 PM PSTPATIENT NAME: Denise Ventura DATE OF ADMISSION: 10/09/2007 AGE/SEX: 72/M [...] follow him closely. Gabriel Davila MD A [facility]/dls #[id number] cc: DO Gabriel East MD Segundo VENTURA [id number] 10/11/07 DIS IN [id number] DISCHARGE SUMMARY Gabriel kee MD [facility] THIS REPORT IS CONFIDENTIAL AND NOT TO BE RELEASED WITHOUT PROPER AUTHORIZATION.Electronica lly signed by Gabriel Davila MD at 04/12/2013 3:39 AM PSTdocumented in this encounter Miscellaneous Notes Op Note - Gabriel Davila MD - 04/10/2013 3:47 PM PSTPATIENT NAME: Denise Ventura Age/Sex: 72/M SURGEON: Sudhir Davila MD SURGERY DATE: 10/09/2007 OPERATIVE PROCEDURE: 1. Electrophysiology study. 2. Radiofrequency ablation of an atrial tachycardia. PROCEDURE: The patient presented to undergo Electrophysiology Study and radiofrequency ab lation of an atrial tachycardia previously diagnosed. Pacemaker was placed at that time for ?? history and disease, H-V interval of 90 to 110 msec, and the possible ne ed for pacing post ablation. The right and left femoral groins were prepped and draped in the usual sterile fashion. Local anesthesia was accomplished with 1% lidocaine. There wa s continuous heart rate, blood pressure and saturation monitoring performed throughout the procedure. Using needle and guidewire technique, two right and two left femoral venous lines were davon eugenio. Catheters were positioned in the high right atrium, His bundle region, coronary sinus , and right ventricle. Mapping was performed throughout the right heart. FINDINGS: The patient arrived in the laboratory in his atrial tachycardia with an A1-A1 i nterval of 290 to 310 msec. H-V interval was 90 msec. Detailed three-dimensional mapping w as performed using the PHILLIP and those findings are recorded and saved in the patient's EP fo lder. Throughout the entire study process and radiofrequency ablation, there was no time where i t was felt there was convincing entrainment. Dr. Flako Woodward was present throughout the case and assisted in both the mapping and the catheter manipulation. The right atrium had diffuse and fractionated electrograms throughout all segments. Of particular interest wer e fractionated and early electrograms in the midright posterior region and mid right anteri or region, consistent with his previous bypass cannulation sites. This did not appear to b e an atrial flutter or isthmus flutter. Careful attention was paid to the activation seque nce and the possibility of scar flutter. There was no time in pacing at multiple sites th at there was any evidence for entrainment. The post-pacing interval would normally average approximately 150 msec with the same earliest activation sequence to the same region as me ntioned above. Pacing the right atrium would allow capture and a Wenckebach block phenomen on occurring as measured through the coronary sinus catheter onto the left atrium. Radiofrequency ablation current was applied to multiple sites in the target zone as determ ined by activation sequence. One is referred to those sites as documented in the EP folder on the three-dimensional PHILLIP mapping system. The tachycardia could not be successfully abl ated or interrupted. The patient subsequently developed atrial fibrillation after the proc edure. 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 The diagnosis is not solidly esta blished but at no time could clear DENISE VENTURA [id number] ADM IN [id number] OPERATIVE REPORT Gabriel kee MD E-SIGN: [facility] THIS REPORT IS CONFIDENTIAL AND NOT TO BE RELEASED WITHOUT PROPER AUTHORIZATION. [facility] criteria be made for atrial flutter. Gabriel Davila MD A DAC/bgb #[id number] cc: Gabriel kee MD VENTURASegundo D [id number] ADM IN [id number] OPERATIVE REPORT Gabriel kee MD E-SIGN: [facility] THIS REPORT IS CONFIDENTIAL AND NOT TO BE RELEASED WITHOUT PROPER AUTHORIZATION.Electronica lly signed by Gabriel Davila MD at 04/12/2013 3:39 AM PSTOp Note - Gabriel Davila MD - 04/10/2013 3:47 PM PSTPATIENT NAME: Denise Ventura Age/Sex: 72/M SURGEON: Sudhir Davila MD SURGERY DATE: 10/11/2007 OPERATIVE PROCEDURE: Cardioversion. The patient is in atrial tachycardia. He undergoes synchronized cardioversion with brief g eneral anesthesia. 100 joules converted him to a sinus rhythm and there were no complicatio ns. Gabriel Davila MD A DAC/dls #[id number] cc: Gabriel kee MD VENTURASegundo DWAYNE uGillen [id number] 10/11/07 DIS IN [id number] OPERATIVE REPORT Gabriel kee MD E-SIGN: R [facility] THIS REPORT IS CONFIDENTIAL AND [...] | | | | | [facility] | | | | | | [id number] | | | | | | | [...]
--- OUTSIDE RECORDS SUMMARY | ~2019-12-07 | XMS | Encounter Summary ---
Demographics + + + | Address | [address] | | | [place] [address] | + + + | Home Phone | | + + + | Preferred Language | Unknown | + + + | Marital Status | | + + + | Buddhist Affiliation | 1013 | + + + | Race | Unknown | + + + | Ethnic Group | Unknown | + + + Author + + + | Author | [facility] | | | and [place] | + + + | Organization | [facility] | | [...] | | | | [place] [address] | | + + + + + | Juana Gasca | ECON | [address] | | | | | [place] | | | | | [address] | | + + + + + | Chad Gasca | ECON | Unknown | | + + + + + Care Team Providers + +------+ + | Care Jacquard Loom Weaver Name | Role | Phone | + [...] + + | 10/29/ | Telephone | [facility] | Spenser Potter, | Cardiac Problem | | 2019 | | CARDIOLOGY JULIAN | [address] | | | | | [address] | [place], | | | | | [place] | [place] [address] | | | | | [address] | [phone] | | | | | [phone] | | | +--------+ + + + [...] 4:37 PM PDTPatient was scheduled for a Donalds pacemaker implant procedure for November 10. Procedure instructions and info was reviewe d with patient. Patient stated understanding, had no further questions or concerns. Electron eric signed by Marva Lozoya V at 11/04/2019 4:38 PM PDTTelephone Encounter - Spenser Potter MD - 10/30/2019 4:30 PM PDTReceived notification of this patient needs his Donalds Sci entific pacemaker changed out. It is [...] | | | | | [place], [place] | | | | | | [address] | | | | | | | [...]
--- OUTSIDE RECORDS SUMMARY | ~2019-12-07 | XMS | Encounter Summary ---
Demographics + + + | Address | [address] | | | [place] [address] | + + + | Home Phone [...] | | | | [place] [address] | | + + + + + | Juana Gasca | ECON | [address] | | | | | [place] | | | | | [address] | | + + + + + | Chad Gasca | ECON | Unknown | | + + + + + Care Team Providers + +------+ + | Care Document Processing Specialist Name | Role | Phone | [...] + + | 03/18/ | Refill | [facility] | Yuri [place] | Medication Refill | | 2019 | | PULMONOLOGY [address] | Rush [place] MD [address] | | | | [address] | [address] | | | | | [place] | [place] [address] | | | | | [address] | [phone] | | | | | [phone] | | | +--------+--------+ + + + [...] | | | | | | [facility] [facility] [place] | | | | | | [address] | | | | | | | [...]
--- OUTSIDE RECORDS SUMMARY | ~2019-12-07 | XMS | Encounter Summary ---
Demographics + + + | Address | [address] | | | [place] [address] | + + + | Home Phone | | + + + | Preferred Language | Unknown | + + + | Marital Status | | + + + | Methodist Affiliation | 1013 | + + + | Race | Unknown | + + + | Ethnic Group | Unknown | + + + Author + + + | Author | [facility] | | | and [place] | + + + | Organization | [facility] | | | [...] | | | | [place] [address] | | + + + + + | Juana Gasca | ECON | [address] | | | | | [place] | | | | | [address] | | + + + + + | Chad Gasca | ECON | Unknown | | + + + + + Care Team Providers + +------+ + | Care Gis Physical Scientist Name | Role | Phone | [...] + + | 09/27/ | Office | [facility] | [place], | COPD (chronic | | 2013 | Visit | PULMONARY [address] | Florence You MD | obstructive | | | | [place], | | pulmonary disease) | | | | [place] [address] | | (Primary Dx); | | | | [phone] | | Obstructive sleep | | | | | | apnea on BiPAP; | | | | | | 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 We offered follow [...] Take 40 mg by mouth every morning. Fdrvktqasgx-Wmttrtdfx-Qvv C-Mn (GLUCOSAMINE 1500 COMPLEX PO) Take 1,500 [...] made to ensure accuracy; however, inadvertent computerized pipe fitter gas pipe errors may be pre sent. Electronically signed [...] | | | | | [place] | | | | | | [address] | | | | | | | [...]
--- OUTSIDE RECORDS SUMMARY | ~2019-12-07 | XMS | Encounter Summary ---
Demographics + + + | Address | [address] | | | [place] [address] | + + + | Home Phone [...] | | | | [place] [address] | | + + + + + | Juana Ventura | ECON | [address] | | | | | [place] | | | | | [address] | | + + + + + | Chad Ventura | ECON | Unknown | | + + + + + Care Team Providers + +------+ + | Care Merchandising Execution Manager Name | Role | Phone | + +------+ + PCP | Unavailable | + +------+ + Encounter Details +--------+ + + + + | Date | Type | Department | Care Team | Description | +--------+ + + + + | 10/08/ | Hospital | [facility] | Gabriel Davila, | | | 2007 - | Encounter | HEART MED CTR | MD Anneliese [address] | | | | | CARDIAC TRANSPLANT | [address] | | | 10/10/ | | [address] | [place] [address] | | | 2007 | | [place] | [phone] | | | | | [address] | | | | | | [phone] | | | +--------+ + + + [...] follow him closely. Gabriel Davila MD A [facility]/dls #[id number] cc: DO Gabriel East MD Segundo VENTURA [id number] 10/11/07 DIS IN [id number] DISCHARGE SUMMARY Gabriel kee MD [facility] THIS REPORT IS CONFIDENTIAL AND NOT [...] at no time could clear DENISE VENTURA [id number] ADM IN [phone] OPERATIVE REPORT Gabriel kee MD E-SIGN: [facility] THIS REPORT IS CONFIDENTIAL AND NOT TO BE RELEASED WITHOUT PROPER AUTHORIZATION. [facility] criteria be made for atrial flutter. Gabriel Davila MD A DAC/bgb #[id number] cc: Gabriel kee MD VENTURASegundo D [id number] ADM IN [id number] OPERATIVE REPORT Gabriel kee MD E-SIGN: [facility] THIS REPORT IS CONFIDENTIAL AND NOT [...] complicatio ns. Gabriel Davila MD A DAC/dls #[id number] cc: Gabriel kee MD VENTURASegundo DWAYNE Guillen [id number] 10/11/07 DIS IN [id number] OPERATIVE REPORT Gabriel kee MD E-SIGN: [facility] THIS REPORT IS CONFIDENTIAL [...] | | | | | | [facility] | | | | | | [id number] | | | | | | | [...]
--- OUTSIDE RECORDS SUMMARY | ~2019-12-07 | XMS | Encounter Summary ---
Demographics + + + | Address | [address] | | | [place] [address] | + + + | Home Phone | | + + + | Preferred Language | Unknown | + + + | Marital Status | | + + + | Hoahaoism Affiliation | 1013 | + + + [...] | | | | [place] [address] | | + + + + + | Juana Gasca | ECON | [address] | | | | | [place] | | | | | [address] | | + + + + + | Chad Gasca | ECON | Unknown | | + + + + + Care Team Providers + +------+ + | Care Healthcare Project Manager Name | Role | Phone | [...] Dx); COPD (chronic | | | | [place], | | obstructive | | | | [place] [address] | | pulmonary disease); | | | | [phone] | | Obstructive sleep | | | | | | apnea on BiPAP; | | | | | | 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 [facility] MD mehreen Riddle t [...] t o do a chest x-ray in [place], but he felt like he was doing okay. He is currently on a regimen of Advair twice daily and Spiriva once daily. He does feel li ke this medication regimen is working for them. Currently he is using his rescue inhaler, al buterol, 1 times a week. He is using his nebulizer, albuterol, 2 times a day. He returns to [facility] for routine follow up. Currently [...] inhaled tw ice daily 3 each 4 Hsefexbfsek-Kgnevqbqs-Mit C-Mn (GLUCOSAMINE 1500 COMPLEX PO) Take 1,500 [...] mg by mouth nightly. Respiratory Therapy Supplies [facility] Discontinue nebulizer. Fax to [facility]. [...] Health Company: [facility] Machine type: [employer] BiPAP auto IPAP Pressure: 16 cm H2O [...] Advair. Plan 1.Check chest CT scan at [facility]. 2.Decrease Advair to 100 mcg dose, 1 [...] made to ensure accuracy; however, inadvertent computerized wool cleaner errors may be pre sent. documented in [...] | | | | | [place], [place] | | | | | | [address] | | | | | | | [...]
--- OUTSIDE RECORDS SUMMARY | ~2019-12-07 | XMS | Encounter Summary ---
Demographics + + + | Address | [address] | | | [place] [address] | + + + | Home Phone [...] | | | | [place] [address] | | + + + + + | Juana Gasca | ECON | [address] | | | | | [place] | | | | | [address] | | + + + + + | Chad Gasca | ECON | Unknown | | + + + + + Care Team Providers + +------+ + | Care Jail Officer Name | Role | Phone | [...] + + | 08/12/ | Refill | [facility] | Yuri Raymond | Medication Refill | | 2019 | | PULMONOLOGY [address] | Rush Raymond MD [address] | | | | | [address] | [address] | | | | | [place] | [place] [address] | | | | | [address] | [phone] | | | | | [phone] | | | +--------+--------+ + + + [...] | | | | | [place], [place] | | | | | | [address] | | | | | | | [...]
--- OUTSIDE RECORDS SUMMARY | ~2019-12-07 | XMS | Encounter Summary ---
Demographics + + + | Address | [address] | | | [place] [address] | + + + | Home Phone [...] | | | | [place] [address] | | + + + + + | Juana Gasca | ECON | [address] | | | | | [place] | | | | | [address] | | + + + + + | Chad Gasca | ECON | Unknown | | + + + + + Care Team Providers + +------+ + | Care Business Office Technology Instructor Name | Role | Phone | [...] + + | 12/29/ | Office | [facility] | Off[place], | COPD (chronic | | 2014 | Visit | PULMONARY [address] | Florence You MD | obstructive | | | | [place], | | pulmonary disease); | | | | [place] [address] | | Obstructive sleep | | | | [phone] | | apnea on BiPAP; | | | | | | 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 He notes he has not been dyspneic walking this. He can probably walk 1/4 to 1/2 mile without stopping. This has improved consi derably compared to 1/2 to 1 block before. He has been evaluated for nocturnal oxygen and does use it. He is currently on 1 LPM at [facility] ht bled in to his BiPAP [...] inhaled tw ice daily 3 each 4 Taghohvozfn-Mqpqqoihc-Yrk C-Mn (GLUCOSAMINE 1500 COMPLEX PO) Take 1,500 [...] made to ensure accuracy; however, inadvertent computerized tv news director errors may be pre sent. documented in [...] | | | | | [place], [place] | | | | | | [address] | | | | | | | [...]
--- OUTSIDE RECORDS SUMMARY | ~2019-12-07 | XMS | Encounter Summary ---
Demographics + + + | Address | [address] | | | [place] [address] | + + + | Home Phone [...] | | | | [place] [address] | | + + + + + | Juana Gasca | ECON | [address] | | | | | [place] | | | | | [address] | | + + + + + | Chad Gasca | ECON | Unknown | | + + + + + Care Team Providers + +------+ + | Care Supervisor Picking Crew Name | Role | Phone | + +------+ + PCP | Unavailable | + +------+ + Encounter Details +--------+ + + + + | Date | Type | Department | Care Team | Description | +--------+ + + + + | 06/02/ | Hospital | [facility] | [place], | | | 2010 | Encounter | MED CTR GENERIC OP | Florence You MD | | | | | CONV DEPT [address] | | | | | | [place], | | | | | | [place] [address] | | | | | | [phone] | | | +--------+ + + + [...] Florence La MD Pulmonary Medicine JOB #: [id number] EXT JOB #:[id number] EDITED: 06/03/2011 08:55 cc: Timo Lorenzana MD <Electronically Signed by Florence La MD> 06/03/11 0729 documented in this encounter Plan of Treatment [...] [place] | | | | | | [address] | | | | | | | [...]
--- OUTSIDE RECORDS SUMMARY | ~2019-12-07 | XMS | Encounter Summary ---
Demographics + + + | Address | [address] | | | [place] [address] | + + + | Home Phone [...] | + + + + + | Farnces Gasca | ECON | NA | | | | | [place] [address] | | + + + + + | Juana Gasca | ECON | [address] | | | | | [place] | | | | | [address] | | + + + + + | Chad Gasca | ECON | Unknown | | + + + + + Care Team Providers + +------+ + | Care Wrapper Operator Name | Role | Phone | [...] + + | 11/13/ | Documentati | [facility] | Spenser Potter, | Other (Implant | | 2020 | on | CARDIOLOGY JULIAN | [address] | Record) | | | | [address] | [place], | | | | | [place] | [place] [address] | | | | | [address] | [phone] | | | | | [phone] | | | +--------+ + + + [...] | | | | | [place], [place] | | | | | | [address] | | | | | | | [...]
--- OUTSIDE RECORDS SUMMARY | ~2019-12-07 | XMS | Encounter Summary ---
Demographics + + + | Address | [address] | | | [place] [address] | + + + | Home Phone [...] | | | | [place] [address] | | + + + + + | Juana Gasca | ECON | [address] | | | | | [place] | | | | | [address] | | + + + + + | Chad Gasca | ECON | Unknown | | + + + + + Care Team Providers + +------+ + | Care Motor Scooter Repairer Name | Role | Phone | + +------+ + | Timo Lorenzana | PCP | | | MD | | | + +------+ + Encounter Details +--------+ + + + + | Date | Type | Department | Care Team | Description | +--------+ + + + + | 02/06/ | Hospital | [facility] | Conversion | Diagnosis unknown | | 2015 | Encounter | CONVERSION DEP [address] | Transaction, | | | | | [address] | Provider Unknown | | | | | [place], [place] | | | | | | [address] | (Fax) | | | | | [phone] | | | +--------+ + + + [...] | | | | | [place], [place] | | | | | | [address] | | | | | | | [...]
--- OUTSIDE RECORDS SUMMARY | ~2019-12-07 | XMS | Encounter Summary ---
Demographics + + + | Address | [address] | | | [place] [address] | + + + | Home Phone [...] | | | | [place] [address] | | + + + + + | Juana Gasca | ECON | [address] | | | | | [place] | | | | | [address] | | + + + + + | Chad Gasca | ECON | Unknown | | + + + + + Care Team Providers + +------+ + | Care Educational Administrator Name | Role | Phone | [...] MD | phlegm) | | | | [place], | | | | | | [place] [address] | | | | | | [phone] | | | +--------+ + + + [...] solution ordered. Advair and ProAir refilled at [facility]'s request. elepho ne Encounter - Florence La [...] | | | | | [place] | | | | | | [address] | | | | | | | [...]
--- OUTSIDE RECORDS SUMMARY | ~2019-12-07 | XMS | Encounter Summary ---
Demographics + + + | Address | [address] | | | [place] [address] | + + + | Home Phone [...] | | | | [place] [address] | | + + + + + | Juana Gasca | ECON | [address] | | | | | [place] | | | | | [address] | | + + + + + | Chad Gasca | ECON | Unknown | | + + + + + Care Team Providers + +------+ + | Care Order Tracer Name | Role | Phone | + [...] | | | | | [place] [address] | | | | | | [phone] | | | +--------+ + + + [...] as she received an ER report from [facility]. He states that he is feeling better [...] [place] | | | | | | [address] | | | | | | | [...]
--- OUTSIDE RECORDS SUMMARY | ~2019-12-07 | XMS | Encounter Summary ---
Demographics + + + | Address | [address] | | | [place] [address] | + + + | Home Phone [...] | | | | [place] [address] | | + + + + + | Juana Gasca | ECON | [address] | | | | | [place] | | | | | [address] | | + + + + + | Chad Gasca | ECON | Unknown | | + + + + + Care Team Providers + +------+ + | Care Edge Setter Name | Role | Phone | [...] | Telephone | [facility] | Ahbin[place], | Appointment (YEARLY | | 2016 | | PULMONARY [address] | Florence You MD | FOLLOW UP) | | | | [place], | | | | | | [place] [address] | | | | | | [phone] | | | +--------+ + + + [...] not wish to sc hedule with the [facility] yeast washer as 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 Electronically [...] [place] | | | | | | [address] | | | | | | | [...]
--- OUTSIDE RECORDS SUMMARY | ~2019-12-07 | XMS | Clinical Summary ---
Demographics + + + | Address | [address] | | | [place] [address] | + + + | Home Phone [...] | | | | [place] [address] | | + + + + + | Juana Gasca | ECON | [address] | | | | | [place] | | | | | [address] | | + + + + + | Chad Gasca | ECON | Unknown | | + + + + + Care Team Providers + +------+ + | Care Alpaca Farmer Name | Role | Phone | + [...] Daily. | tablet | | 8/20 | 8/20 | e | | mEq ER tablet [...] mouth | | 0 | 10/0 | /1 | Disco | | (COUMADIN) 7.5 mg | Daily. Take 7.5mg | | | 3/20 | 0/20 | ntinu | | tablet | on Monday. Take 10mg | | | 12 | 20 | ed | | | all other days | | | | | (Reor | | | | | | | | yari) | + + + +---------+------+------+-------+ Active Problems + + + | Problem | Noted Date | + + + | Heart block | 10/31/2019 | + + + + + | Overview: Added automatically from request for surgery | | [id number] | + + + + + | Gastro-esophageal reflux disease with esophagitis | 01/19/2019 | + + + | Centrilobular emphysema | 03/10/2016 | + + + | Rheumatic valvular disease | 04/03/2014 | + + + + + | Overview: Last Assessment & Plan: Hx MVR/AVR (RHD). 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 | | | angina pectoris [...] 08/30/2007, Guidant | | Insignia 1291, SN: [id number] Cath, 03/09/2014: RA: 80/13 mean | | [...] 12/02/ | Telephone | Cardiology | Mulu Bravo, | Medication Question | 2019 | | | MD | (Enoxaparin) | +--------+ + + + + | 11/25/ | Procedure | Cardiology | | Cardiac pacemaker in | 2019 | visit | | | situ (Primary Dx) | +--------+ + + + + | 11/17/ | Telephone | Cardiology | Coty Bruner, | Post-op Question | 2019 | | | PACKAGING SALES | | +--------+ + + + + [...] | | 2019 | Event | | TREATING MACHINE OPERATOR | | +--------+ + + + + | 11/12/ | Hospital | Cardiology | Spenser Potter, | Heart block; Heart | | 2019 | Encounter | | MD | block; [...] 10/29/ | Office | Cardiology | Mulu Bravo, | Atrial fibrillation, | | 2019 | Visit | | MD | chronic (HCC) | | | | | | (Primary Dx); | | | | | | Essential | | | | | | hypertension, | | | | | | benign; | | | | | | Atherosclerosis of | | | | | | kake coronary | | | | | | artery of kake | | | | | | heart [...] 10/20/ | Refill | Cardiology | Mulu Bravo, | Medication Refill | | 2019 | [...] | | TRIVALENT(PED/ADOL/A | | | | DULT) PSKT | | | + + + + [...] 05/06/ | Office | Cardiology | Mulu Bravo, | | | 2019 | Visit | | [address] | | | | | | [place] [facility] [place] | | | | | | [address] | | | | | | | [...] - | Pacema | | [place] | [id number] | 06/19/ | L310 | | [id number]: Qty: 1 on | ker | | SCIENTIFIC | [id number] | 2021 | /[id number] | | 11/13/2019 by Spenser Potter | | | ERICH - BSCI | 04 | | 8 / | | MD Gorge at [facility] | | | | | | | | [facility] | | | | | | | + +--------+-------+ +--------+--------+--------+ | Pacing Wire Dual | | N/A: | JORGITO | | 10/02/ | 030-00 | | 030-005 - | | Heart | MEDICAL | | 2018 | 5 / | | [id number]: Qty: 1 on | | | SPECIALTI - | | | /166 | | 03/10/2014 | | | WILSushma | | | | + +--------+-------+ +--------+--------+--------+ | Pacing Wire Dual | | N/A: | JORGITO | | 10/02/ | 030-00 | | 030-005 - | | Heart | MEDICAL | | 2018 | 5 / | | [id number]: Qty: 1 on | | | SPECIALTI - | | | /166 | | 03/10/2014 | | | WILS | | | | + +--------+-------+ +--------+--------+--------+ | Valve Aortic Mec 23mm | | N/A: | NA UNKNOWN | | 10/02/ | ONXACE | | Onxace-23 S/N - | | Heart | | | 2018 | -23 | | [id number]: Qty: 1 on | | | | | | [id number] | | 03/10/2014 | | | | | | 02 / | + +--------+-------+ +--------+--------+--------+ | Pacing Wire Dual | | N/A: | JORGITO | | 09/02/ | 030-00 | | 030-005 - | | Heart | MEDICAL | | 2018 | 5 / | | [id number]: Qty: 1 on | | | SPECIALTI [...] PACEART | | INTERROGATION REPORT Name: Serge Gasca PCP: Timo Muniz | | | MD Salomón : 1935 Primary cardiology | | | provider: Mulu [facility] Primary electrophysiology provider: Spenser | | | Tariq Mode of interrogation: Seen in cardiac device | | | clinic Device: ideasoft Battery Longevity: 10.5 | | | years. [...] performed by: Yesika Cadet, | | | [employer] Reviewed by: GINGER Hinojosa | | + [...] | | | | | performed at [facility] | | | | | | [facility];[place], [place] | | | | | | [address] | | | | + + + + + + + + | Specimen | + + | Blood | + + + + + + + | Performing | Address | City/State/Zipcode | Phone Number | | Organization | | | | + + + + + | [facility] | [address] | [place] [address] | [phone] | + + + + + Basic [...] | | | | | performed at [facility];[address] | | | | | | [facility];[place], [place] | | | | | | [address] | | | | + + + + + + + + | Specimen | + + | Blood | + + + + + + + | Performing | Address | City/State/Zipcode | Phone Number | | Organization | | | | + + + + + | [facility] | [address] | [place] [address] | [phone] | + + + + + ECG [...] of | | | | | | 10-2019 09:03,No | | | | | | significant change was | | | | | | foundConfirmed by | | | | | | MULU BRAVO MD | | | | | | ([id number]) on 10/31/2019 | | | | | [...] | | + +--------+ +--------+ +---------+--------+ | [facility] | [facility] | [id number] | 06/05/19 | | | Medica | | MEDICARE PPO | HEALTH | | 19-Pre | | | re | | | CARE | | sent | | | | | | MDCR | | | | | | | | PPO | | | | | | + +--------+ +--------+ +---------+--------+ | MEDICARE | MEDICA | [id number] | 12/03/18 | [phone] | | Medica | | | RE | | 99-Pre | 5 | | re | | | PART A | | sent | | | | | | AND B | | | | | | + +--------+ +--------+ +---------+--------+ | [facility] | UNITED | [id number] | 06/05/19 | [phone] | | PPO | | | | [...] Tan | al/Fam | | 1935 | [phone] | [place] | | | [place] | | | 0 (Home) | [address] | + +--------+ +--------+ + + | Serge Gasca | Person | Self | [birth year] | | [address] | | [place] | al/Fam | | 1935 | [phone] | [place], [place] | | | [place] | | | 0 (Home) | [address] | + +--------+ +--------+ + + | Serge Gasca | Person | Self | [birth year] | | [address] | | [place] | al/Fam | | 1935 | [phone] | [place], [place] | | | [place] | | | 0 (Home) | [address] | + +--------+ +--------+ + + Advance Directives + + + + + | Type | Date Recorded | Patient | Explanation | | | | Supervising Airplane Pilot | | + + + + + | Power of | | | | | Pastry Supervisor | | | | + + + + + | Advance | 11/13/2019 10:06 | | | | Directive | AM | | | + + + + +
--- OUTSIDE RECORDS SUMMARY | ~2019-12-07 | XMS | Encounter Summary ---
Demographics + + + | Address | [address] | | | [place] [address] | + + + | Home Phone | | + + + | Preferred Language | Unknown | + + + | Marital Status | | + + + | Faith Affiliation | 1013 | + + + | Race | Unknown | + + + | Ethnic Group | Unknown | + + + Author + + + | Author | [facility] | | | and [place] | + + + | Organization | [facility] | | | [...] | | | | [place] [address] | | + + + + + | Juana Gasca | ECON | [address] | | | | | [place] | | | | | [address] | | + + + + + | Chad Gasca | ECON | Unknown | | + + + + + Care Team Providers + +------+ + | Care Flume Maker Name | Role | Phone | + +------+ + PCP | Unavailable | + +------+ + Encounter Details +--------+ + + + + | Date | Type | Department | Care Team | Description | +--------+ + + + + | 02/15/ | Abstract | [place] [facility] | DATA MIGRATION JESSE | | | 2011 | | Conversion Location | SR | | | | | [place] [address] | | | | | | [place], [place] | | | | | | [address] | | | | | | [phone] | | | +--------+ + + + [...] + + + | Blood Pressure | 128/72 | 10/18/2011 12:00 AM | | | | | PDT | | + + + + + | Pulse | - | - | | + + + + + | Temperature | - | - | | + + + + + | Respiratory Rate | - | - | | + + + + + | Oxygen Saturation | - | - | | + + + + + | Inhaled Oxygen | - | - | | | Concentration | | | | + + + + + | Weight | 132.5 kg (292 lb) | 10/18/2011 12:00 AM | | | | | PDT | | + + + + + | Height | 185.4 cm (6' 1") | 05/09/2011 12:00 AM | | | | | PST | | + + + + + | Body Mass Index | 36.03 | 05/09/2011 12:00 AM | | | | | PST | | + + + + + documented in this encounter Plan of Treatment [...] [place] | | | | | | [address] | | | | | | | [...]
--- OUTSIDE RECORDS SUMMARY | ~2019-12-07 | XMS | Encounter Summary ---
Demographics + + + | Address | [address] | | | [place] [address] | + + + | Home Phone | | + + + | Preferred Language | Unknown | + + + | Marital Status | | + + + | Congregational Affiliation | 1013 | + + + | Race | Unknown | + + + | Ethnic Group | Unknown | + + + Author + + + | Author | [facility] | | | and [place] | + + + | Organization | [facility] | | [...] | | | | [place] [address] | | + + + + + | Juana Ventura | ECON | [address] | | | | | [place] | | | | | [address] | | + + + + + | Chad Ventura | ECON | Unknown | | + + + + + Care Team Providers + +------+ + | Care Manager International Name | Role | Phone | + +------+ + PCP | Unavailable | + +------+ + Encounter Details +--------+ + + + + | Date | Type | Department | Care Team | Description | +--------+ + + + + | 11/17/ | Hospital | [facility] | Gabriel Davila, | | | 2009 - | Encounter | HEART MED CTR | MD [address] | | | | | CARDIAC TELEMETRY | [place] [address] | | | 11/19/ | | [address] [place] | [place] [address] | | | 2009 | | [place] | [phone] | | | | | [address] | | | | | | [phone] | | | +--------+ + + + [...] NAME: Denise Ventura Sex/Age: M/74 : 1935 [id number] ADMISSION DATE: 11/17/2009 DISCHARGE DATE: 11/19/2009 DISCHARGE [...] two weeks. Gabriel Davila MD [facility] #[id number] cc: Gabriel Davila MD AUDREYSegundo ADM:11/17/09 [id number] 11/19/09 DIS IN [id number] DISCHARGE SUMMARY Gabriel kee MD [facility] THIS REPORT IS CONFIDENTIAL AND NOT TO BE RELEASED WITHOUT PROPER AUTHORIZATION.Electronica lly signed by Gabriel Davila MD at 04/11/2013 2:07 AM PSTdocumented in this encounter Miscellaneous Notes Op Note - Gabriel Davila MD - 04/10/2013 6:14 AM PST PATIENT NAME: DENISE VENTURA Date of : 1935 Age/Sex: 74Y / M SURGEON: Gabriel Davila MD SURGERY DATE: 11/17/2009 [id number] / [id number] PROCEDURES: 1. His ablation. 2. Reprogramming of pacer. PROCEDURE: The patient presents to undergo His ablation. The risks and options were explai mark to him in great detail, on multiple occasions. He is known to have refractory atrial ta chycardias, refractory to medication and multiple ablations. He has a normally functioning DDD [employer] pacemaker in place. The right femoral [...] and followup. Gabriel Davila MD [facility]/all #[id number] cc: Gabriel Davila MD Segundo VENTURA ADM:11/17/09 [id number] [facility] IN [id number] OPERATIVE REPORT Gabriel kee MD E-SIGN: N [facility] THIS REPORT IS CONFIDENTIAL AND NOT [...] [place] | | | | | | [address] | | | | | | | [...]
--- OUTSIDE RECORDS SUMMARY | ~2019-12-07 | XMS | Encounter Summary ---
Demographics + + + | Address | [address] | | | [place] [address] | + + + | Home Phone | | + + + | Preferred Language | Unknown | + + + | Marital Status | | + + + | Taoism Affiliation | 1013 | + + + | Race | Unknown | + + + | Ethnic Group | Unknown | + + + Author + + + | Author | [facility] | | | and [place] | + + + | Organization | [facility] | | | [...] | | | | [place] [address] | | + + + + + | Juana Gasca | ECON | [address] | | | | | [place] | | | | | [address] | | + + + + + | Chad Gasca | ECON | Unknown | | + + + + + Care Team Providers + +------+ + | Care Caustic Preparer Name | Role | Phone | + [...] | [address] | | | | | [place] [address] | | | | | | [place], [place] | | | | | | [address] | | | | | | [phone] | | | +--------+ + + + [...] [place] | | | | | | [address] | | | | | | | [...]
--- OUTSIDE RECORDS SUMMARY | ~2019-12-07 | XMS | Encounter Summary ---
Demographics + + + | Address | [address] | | | [place] [address] | + + + | Home Phone | | + + + | Preferred Language | Unknown | + + + | Marital Status | | + + + | Caodaism Affiliation | 1013 | + + + [...] | | | | [place] [address] | | + + + + + | Juana Gasca | ECON | [address] | | | | | [place] | | | | | [address] | | + + + + + | Chad Gasca | ECON | Unknown | | + + + + + Care Team Providers + +------+ + | Care Marketing Communications Specialist Name | Role | Phone | [...] + + | 09/27/ | Office | [facility] | [place], | COPD (chronic | | 2013 | Visit | PULMONARY [address] | Florence You MD | obstructive | | | | [place], | | pulmonary disease) | | | | [place] [address] | | (Primary Dx); | | | | [phone] | | Obstructive sleep | | | | | | apnea on BiPAP; | | | | | | 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 We offered follow [...] Take 40 mg by mouth every morning. Khnqoezhgvl-Aysbjorhp-Ntm C-Mn (GLUCOSAMINE 1500 COMPLEX PO) Take 1,500 [...] made to ensure accuracy; however, inadvertent computerized director of health education errors may be pre sent. Electronically signed [...] | | | | | [place] | | | | | | [address] | | | | | | | [...]
--- OUTSIDE RECORDS SUMMARY | ~2019-12-07 | XMS | Encounter Summary ---
Demographics + + + | Address | [address] | | | [place] [address] | + + + | Home Phone [...] | | | | [place] [address] | | + + + + + | Juana Gasca | ECON | [address] | | | | | [place] | | | | | [address] | | + + + + + | Chad Gasca | ECON | Unknown | | + + + + + Care Team Providers + +------+ + | Care Coding Advisor Name | Role | Phone | + [...] | | | | | [place] [address] | | | | | | [phone] | | | +--------+ + + + [...] | | | | | [place] | | | | | | [address] | | | | | | | [...]
--- OUTSIDE RECORDS SUMMARY | ~2019-12-07 | XMS | Encounter Summary ---
Demographics + + + | Address | [address] | | | [place] [address] | + + + | Home Phone | | + + + | Preferred Language | Unknown | + + + | Marital Status | | + + + | Shinto Affiliation | 1013 | + + + | Race | Unknown | + + + | Ethnic Group | Unknown | + + + Author + + + | Author | [facility] | | | and [place] | + + + | Organization | [facility] | | [...] | | | | [place] [id number] | | + + + + + | Juana Gasca | ECON | [address] | | | | | [place] | | | | | [address] | | + + + + + | Chad Gasca | ECON | Unknown | | + + + + + Care Team Providers + +------+ + | Care Concrete Block Mason Name | Role | Phone | + +------+ + | Timo Lorenzana | PCP | | | MD | | | + +------+ + Reason for Visit + + + | Reason | Comments | + + + | Medication Refill | Torsemide, Carvedilol, Potassium | + + + Encounter Details +--------+--------+ + + + | Date | Type | Department | Care Team | Description | +--------+--------+ + + + | 10/20/ | Refill | [facility] | Elif Hylton, | Medication Refill | | 2019 | | [facility] [place] | [address] | ([place]sem[place], | | | | [address] | [place] | Carvedilol, | | | | [address] | [address] | Potassium) | | | | [place] | | | | | | [address] | | | | | | [phone] | | | +--------+--------+ + + + [...] | | | | | | [place] | | | | | | [address] | | | | | | | [...]
--- OUTSIDE RECORDS SUMMARY | ~2019-12-07 | XMS | Encounter Summary ---
Demographics + + + | Address | [address] | | | [place] [address] | + + + | Home Phone [...] | | | | [place] [address] | | + + + + + | Juana Gasca | ECON | [address] | | | | | [place] | | | | | [address] | | + + + + + | Chad Gasca | ECON | Unknown | | + + + + + Care Team Providers + +------+ + | Care Band Cutter Name | Role | Phone | + [...] | | | | | [place] [address] | | | | | | [phone] | | | +--------+ + + + [...] [place] | | | | | | [address] | | | | | | | [...]
--- OUTSIDE RECORDS SUMMARY | ~2019-12-07 | XMS | Encounter Summary ---
Demographics + + + | Address | [address] | | | [place] [address] | + + + | Home Phone [...] | | | | [place] [address] | | + + + + + | Juana Ventura | ECON | [address] | | | | | [place] | | | | | [address] | | + + + + + | Chad Ventura | ECON | Unknown | | + + + + + Care Team Providers + +------+ + | Care Capacity Planning Manager Name | Role | Phone | + +------+ + PCP | Unavailable | + +------+ + Encounter Details +--------+ + + + + | Date | Type | Department | Care Team | Description | +--------+ + + + + | 11/05/ | Hospital | [facility] | Jin Epps MD | Aortic Valve | | 2008 | Encounter | [facility] | [address] | Disorder | | | | CLINICAL DECISION | [place] [address] | | | | | [address] [place] [address] [address] | [phone] | | | | | [place], [place] | | | | | | [address] | | | | | | [phone] | | | +--------+ + + + [...] [place] | | | | | | [address] | | | | | | | [...] Performed At | + + + | [id number] | | | Page [address] [facility] NAME: | | | [place] [address] MEDICAL RECORD #: | | | [id number] | | | DATE OF : 1935 ORDER | | | NUMBER: [id number] EXAM DATE/TIME: 11/05/2008 13:07 PERFORMING | | [...] pericardium is normal. | | | MEASUREMENTS Re Examiner: CM Authenticated | | | by: Jin Epps MD Report Date/Time: 11-06-2008 17:11:22 | | + + + + + | Procedure Note | + + | Raudel Aguillon - 01/28/2019 1:25 AM PDT [id number] | | Page [address] [place] [address] NAME: [place], | | [place] [address] : ACCOUNT #: | | [id number]: DATE OF : 1935ORDER NUMBER: | | [id number] DATE/TIME: 11/05/2008 13:07PERFORMING PHYSICIAN: Jin Epps MDORDER [...] The pericardium is normal. MEASUREMENTS | | Re Examiner: STEFANIEuthenticated by: Jin LATHAMjostin Date/Time: 11-06-2008 17:11:22 [...] | |MEASUREMENTS | | | | | |Re Examiner: PRESTON | |Authenticated by: Jin Epps MD | |Report Date/Time: 11-06-2008 17:11:22 | + + documented in this encounter Visit Diagnoses + + | Diagnosis | + + | Aortic valve disorder Aortic valve disorders | + + documented in this encounter"
--- OUTSIDE RECORDS SUMMARY | ~2019-12-07 | XMS | Encounter Summary ---
Demographics + + + | Address | [address] | | | [place] [address] | + + + | Home Phone [...] | | | | [place] [address] | | + + + + + | Juana Gasca | ECON | [address] | | | | | [place] | | | | | [address] | | + + + + + | Chad Gasca | ECON | Unknown | | + + + + + Care Team Providers + +------+ + | Care Assistant Unit Forester Name | Role | Phone | + +------+ + | Med Lorenzana | PCP | | | MD | | | + +------+ + Encounter Details +--------+ + + + + | Date | Type | Department | Care Team | Description | +--------+ + + + + | 03/07/ | Hospital | [facility] | Erika Simental | Rheumatic mitral | | 2013 - | Encounter | [facility] | MD [address] | valve disease; | | | | CARE FLOOR [address] | Calvin Pastor | Atrial fibrillation, | | 03/14/ | | [address] | [place] [address] | chronic (HCC) | | 2013 | | [place], [place] | [phone] | | | | | [address] | | | | | | [phone] | | | +--------+ + + + [...] Thoracic, and Vascular Surgery Author Type: Physician Assistant Grocery Store Manager - Certified Filed: 03/17/14 1441 Date of Service: 03/17/141427 Status: Attested Emulsion Operator: Andrei Lindsay PA-C (Physician Assistant Grocery Store Manager - Certified) Cosigner: Timothy Whitaker MD at 03/18/14757 Attestation signed by Timothy Whitaker MD at 03/18/14757 I have examined Denise Gasca, reviewed the notes, assessments, and/or procedures perfor med by Andrei Lindsay PA-C, I concur with his documentation of Denise Gasca. [facility] Service: Cardiothoracic Surgery Discharge Summary Date [...] - REDO; Surgeon: Timothy Whitaker MD; Location: [facility] MAIN OR; Service: Cardiac; Laterality: N/A; Cystostomy w/ bladder dilation N/A 03/10/2014 Procedure: CYSTOSCOPY - DILATATION; Surgeon: Timothy Whitaker MD; Location: [facility] MAIN OR ; Service: Cardiac; Laterality: N/A; [...] Requested: 1 Follow up: Med Lorenzana MD [facility] [address] [address] On 03/18/2014 Medication List START taking these [...] are the prescriptions that you need to waste picker. You may get the following medications [...] Date of Service: 03/14/14 1400 Status: Signed Emulsion Operator: Nataliia Baldwin RN (Registered Nurse) Reviewed d/c [...] Author: ARACELY Andrea Service: (none) Author Type: Transfer Driver Filed: 03/14/146 Date of Service: 03/14/141302 Status: Signed Emulsion Operator: ARACELY Andrea (Transfer Driver) 03/14/141302 Anticipated Discharge Plan Post Acute Care Needs (Will f/u at Coumadin clinic at [facility]) Anticipated Disposition Facility Type Home Disposition: Home [...] 03/14/14919 Date of Service: 03/14/14914 Status: Signed Emulsion Operator: ZAYRA Acevedo (Occupational Therapist) 03/14/14914 Plan Requires OT Follow Up Unavailable (Pt with nursing.) OT will re-attempt as census permits. onver gurpreet Transaction, Provider Unknown - 03/14/2014 8:44 AM PDT Nurse Progress Note by Larissa Alvarez RN at 03/14/14843 Author: Larissa Alvarez RN Service: (none) Author Type: Registered Nurse Filed: 03/14/14843 Date of Service: 03/14/14843 Status: Signed Emulsion Operator: Larissa Alvarez, RN (Registered Nurse) Re-visited pt today regarding Coumadin Education. Good retention of information. Haritha Mackenzie PT - 03/14/2014 8:25 AM PDTFormatting of this note might be different from th e original. Therapy Progress Note by Haritha Jean, PT at 03/14/14824 Author: Haritha Jean PT Service: (none) Author Type: Physical Therapist Filed: 03/14/14 1053 Date of Service: 03/14/14824 Status: Signed Emulsion Operator: Haritha Jean PT (Physical Therapist) 03/14/14824 PT Last Visit PT Received On 03/14/14 Reason for Treatment Cardiac Requires PT Follow Up Yes Follow up PT Only? No Assistance Required 1 person Residential Aide Needed No Precautions Cardiac Precautions Sternal Other [...] instruction;Patient appears safe Maximal Ambulation Distance (feet) 380mpg6 Total Ambulation Distance (feet) 200ft Distance limited [...] 03/14/14735 Date of Service: 03/14/14732 Status: Signed Emulsion Operator: Timothy Whitaker MD (Physician) [facility] Service: Cardio Thoracic Surgery Progress Note Pt: Denise Wilmer Elo AGE/SEX: 78 y.o. male ROOM: [id number] : 1935 PCP: MED LORENZANA ADMIT [...] chloride 0.9 % 10 mL Intravenous Q12H [facility] sulfamethoxazole-trimethoprim 1 tablet Oral Daily [...] Note by Jesus Latham PT at 03/13/14 5188 Author: Jesus Latham, PT Service: (none) Author Type: Physical Therapist Filed: 03/13/14 8081 Date of Service: 03/13/14 8755 Status: Signed Emulsion Operator: Jesus Latham PT (Physical Therapist) 03/13/14 2808 PT Last Visit PT Received On 03/13/14 [...] 1548 Date of Service: 03/13/141545 Status: Signed Emulsion Operator: Rozina Davis RN (Registered Nurse) After speaking [...] Date of Service: 03/13/14 1253 Status: Signed Emulsion Operator: ZAYRA Acosta (Occupational Therapist) 03/13/14 1253 Precautions [...] for larger walker) 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 Making bed;Washing dishes;Taking out trash Employment Retired [...] Shower chair without back;Elastic shoe laces;Sponge long handled;[facility] Education Completed: Education Topic: AE and adaptive [...] Date of Service: 03/13/14 1023 Status: Signed Emulsion Operator: Evelina Plata RN (Registered Nurse) Patient transferred [...] 03/13/141126 Date of Service: 03/13/14909 Status: Signed Emulsion Operator: Med Berger PT (Physical Therapist) 03/13/14909 PT [...] Thoracic, and Vascular Surgery Author Type: Physician Assistant Grocery Store Manager - Certified Filed: 03/13/14 1503 Date of Service: 03/13/14750 Status: Attested Emulsion Operator: Andrei Lindsay PA-C (Physician Assistant Grocery Store Manager - Certified) Cosigner: Timothy Whitaker MD at [...] chloride 0.9 % 10 mL Intravenous Q12H [facility] sulfamethoxazole-trimethoprim 1 tablet Oral Daily [...] 03/13/14517 Date of Service: 03/13/14517 Status: Signed Emulsion Operator: Newton Mai RPH (Pharmacist) Note ccl 72ml/min meds reviewed pharmacy will follow [facility] 0518 onver gurpreet Transaction, Provider Unknown - 03/12/2014 2:10 PM PDT Therapy Progress Note by Med Berger PT at 03/12/14 1410 Author: Med Berger PT Service: (none) Author Type: Physical Therapist Filed: 03/12/14 1441 Date of Service: 03/12/14 1410 Status: Signed Emulsion Operator: Med Berger PT (Physical Therapist) 03/12/14 1410 [...] PT had pt sit in wheelchair and PROCEDURE RN whe eled pt back to his room. [...] Larissa Alvarez RN at 03/12/14 1313 Author: [place] Langevin, RN Service: (none) Author Type: Registered Nurse Filed: 03/12/14 1314 Date of Service: 03/12/14 1313 Status: Signed Emulsion Operator: Larissa Alvarez RN (Registered Nurse) Visited patient for coumadin education. They have been on coumadin prior to this hospitaliz ation and pcp in [place] manages their dosing. Informed of today's inr. They have no quest ions regarding coumadin at this time. Refused Coumadin Education booklet. onver gurpreet Transaction, Provider Unknown - 03/12/2014 10:08 AM PDT Case Management by ARACELY Espinal at 03/12/14 1008 Author: ARACELY Espinal Service: (none) Author Type: Transfer Driver Filed: 03/12/14 1010 Date of Service: 03/12/14 1008 Status: Addendum Emulsion Operator: ARACELY Espinal (Transfer Driver) Related Notes: Original Note by ARACELY Espinal (Transfer Driver) filed at 03/12/14 1009 03/12/14 1005 Discharge [...] 03/12/14899 Date of Service: 03/12/14829 Status: Signed Emulsion Operator: Med Berger PT (Physical Therapist) 03/12/14829 PT [...] returned demo nstration according to instruction given. [id number]-[id number] was the most difficult for him. Pt [...] Thoracic, and Vascular Surgery Author Type: Physician Assistant Grocery Store Manager - Certified Filed: 03/12/14 1548 Date of Service: 03/12/1451 Status: Attested Addendum Emulsion Operator: Andrei Lindsay PA-C (Physician Assistant Grocery Store Manager - Certified) Related Notes: Original Note by Andrei Lindsay PA-C (Physician Assistant Grocery Store Manager - Certified) file d at 03/12/14 1536 [...] 1550 Date of Service: 03/11/141439 Status: Signed Emulsion Operator: Sam Lemon PT (Physical Therapist) 03/11/14 1440 [...] Recommended (anticipate none) Prior Function Level of [place] Independent with functional mobility;Independent with ADLs;Independe nt [...] Patient's ability Pattern Decreased brooks;WFL Assistive Device (ELECTRICAL FOREMAN on w/c) Balance Balance (Pt. is steady [...] Thoracic, and Vascular Surgery Author Type: Physician Assistant Grocery Store Manager - Certified Filed: 03/11/14 1323 Date of Service: 03/11/14909 Status: Attested Emulsion Operator: Andrei Lindsay PA-C (Physician Assistant Grocery Store Manager - Certified) Cosigner: Timothy Whitaker MD at [...] Author: Vin Amador Service: (none) Author Type: Senior It Business Analyst Filed: 03/10/142019 Date of Service: 03/10/142013 Status: Signed Emulsion Operator: Vin Amador () Met with pt's Zamzam [...] for Zamzam. Family voiced repeated thx for technical sales consultant's availability and support throughout th is long day. CRISTIAN Marrero onver gurpreet Transaction, Provider Unknown - 03/10/2014 8:13 PM PDT Progress Notes by Vin Amador at 03/10/142012 Author: Vin Amador Service: (none) Author Type: Senior It Business Analyst Filed: 03/10/142012 Date of Service: 03/10/142012 Status: Signed Emulsion Operator: Vin Amador () Delivered on-pump report to Zamzam and gricelda per protocols. CRISTIAN Marrero onver gurpreet Transaction, Provider Unknown - 03/10/2014 8:09 PM PDT Progress Notes by Vin Amador at 03/10/142008 Author: Vin Amador Service: (none) Author Type: Senior It Business Analyst Filed: 03/10/142010 Date of Service: 03/10/142008 Status: Signed Emulsion Operator: Vin Amador () Received p/c from [facility], [...] 03/10/142007 Date of Service: 03/10/142004 Status: Signed Emulsion Operator: Vin Stauffer) Per open heart pt protocols, I met with pt's family to assess ongoing needs and orient [facility]'s support during surgery. Zamzam, sons Andrei and Chad, and a broth er present for orientation. Family are active in their [place] community and are well supporte d by their adjunct instructor/friend today. I provided flow card to family and will update them per prot ocols throughout the afternoon. CRISTIAN Marrero onver gurpreet Transaction, Provider Unknown - 03/09/2014 10:45 AM PDT Nurse Progress Note by Rupal Canela RN at 03/09/14 1045 Author: Rupal Canela RN Service: (none) Author Type: Registered Nurse Filed: 03/09/14 1053 Date of Service: 03/09/14 1045 Status: Signed Emulsion Operator: Rupal Canela RN (Registered Nurse) Pt return from senior label specialist via stretcher, alert and oriented x 4. Denies any Pain, right groi n with soft, with safeguard intact, scant amount old drainage on dressing. Right pedal puls e 2+, VSS, IVF infusing. onver gurperet Transaction, Provider Unknown - 03/08/2014 2:58 PM PDT Case Management by ARACELY Walker at 03/08/14 6468 Author: ARACELY Walker Service: (none) Author Type: Transfer Driver Filed: 03/08/14 1502 Date of Service: 03/08/14 1458 Status: Addendum Emulsion Operator: ARACELY Walker (Transfer Driver) Related Notes: Original Note by ARACELY Walker (Transfer Driver) filed at 03/08/14 1501 03/08/14 1400 Discharge [...] Plan Yes Anticipated Disposition Facility Type Home MAILING SPECIALIST met with Pt and discussed discharge planning, planning to go home when medically ready. Pt is a 78 y.o. male here with Aortic Valve Replacement, having CHF, prog ressive Aortic Stenosis. Pt states he drives, is active and independent with all ADLs and IADLs, states outpatient o [facility]cology at [facility] has a regimented program which follows his Coumad in levels since 2005. Patient's PCP is: MED Roe Patient's insurance: Medicare / [facility] Coverage concerns: None Medication coverage/concerns: None Community resources utilized / needed: None Assistance in transportation: Pt family Identification of any specific education / training: Pending clinical course, unknown Barriers to Discharge / Alternative housing needed: Pending clinical course, unknown Anticipated DCP: Home - pending clinical course. CACHORRO REID, Land Economist [phone] cell hen, Erika Lee MD - 03/08/2014 2:36 PM PDTFormatting of this note might be different fro m the original. Progress Notes by Erika Simental DO at 03/08/14 1436 Author: Erika Simental DO Service: Cardiology Author Type: Physician Filed: 03/08/14 9632 Date of Service: 03/08/141435 Status: Signed Emulsion Operator: Erika Simental DO (Physician) [facility] Service: Cardiology Progress Note Hospital Day: [...] units/mL in Dextrose 5% 1,800 Units/hr (03/08/14 0168) PRN Medications acetaminophen, acetaminophen, albuterol, heparin (porcine), [...] 3: Pacemaker/ICD: yes, Guidant Insignia 1291, SN: [id number] Code Status: Full Code ERIKA SIMENTAL DO 03/08/2014 onversio n Transaction, Provider Unknown - 03/07/2014 5:35 PM PDTFormatting of this note might be di fferent from the original. Progress Notes by Jessica Lieberman RPH at 03/07/141734 Author: Jessica Lieberman RPH Service: (none) Author Type: Pharmacist Filed: 03/07/141734 Date of Service: 03/07/141734 Status: Signed Emulsion Operator: Jessica Lieberman RPH (Pharmacist) Renal Dosing Monitoring: [...] 03/07/142018 Date of Service: 03/07/141957 Status: Signed Emulsion Operator: Erika Simental DO (Physician) [facility] Service: Cardiology Initial History and Physical Denise [...] mg by mouth 2 (two) times daily. Qgydursyqra-Tdhomqnxb-Vsd C-Mn (GLUCOSAMINE 1500 COMPLEX PO) Take 4,500 [...] 2004 Pacemaker/ICD: yes, Guidant Insignia 1291, SN: [id number] Last Cath, 07/21/2005: L. [place], LAD [...] Date of Service: 03/09/14 1032 Status: Signed Emulsion Operator: Timothy Whitaker MD (Physician) [facility] Service: Cardiothoracic Surgery Initial Consult Note Date [...] mg by mouth 2 (two) times daily. Qvvhslzvfvh-Fqwrvegkd-Fez C-Mn (GLUCOSAMINE 1500 COMPLEX PO) Take 4,500 [...] 010 Date of Service: 03/11/1458 Status: Signed Emulsion Operator: Ruth Aleman RN (Registered Nurse) Daily care [...] signed by Timothy Whitaker MD at 03/12/14 7469 Author: Timothy Whitaker MD Service: (none) Author Type: Physician Filed: 03/12/14 0135 Date of Service: 03/10/142025 Status: Signed Emulsion Operator: Timothy Whitaker MD (Physician) DENISE GASCA Date of : 1935 PREOPERATIVE DIAGNOSIS Aortic stenosis. POSTOPERATIVE DIAGNOSIS Aortic stenosis. PROCEDURE 1. Redo sternotomy. 2. Aortic valve replacement (23 On-X valve). SURGEON Timothy hWitaker MD PRESSING MACHINE OPERATOR BATOOL Granger ANESTHESIOLOGIST Italo Hawkins MD ANESTHESIA [...] After induction of general endotracheal anesthesi a, [place]y-Christiana catheter, Velazquez catheter, radial artery line, and [...] 1 active ventricular wire were placed. A #24-East Timorese chest tube was placed in the mediastinum [...] unit intubated and in stable condition. P/ P/gf/[id number] TIMOTHY WHITAKER MD p Note - Timothy Whitaker MD - 03/10/2014 8:21 PM PDTFormatting of this note might be different fro m the original. Brief Op Note by Timothy Whitaker MD at 03/10/142020 Author: Timothy Whitaker MD Service: (none) Author Type: Physician Filed: 03/10/142021 Date of Service: 03/10/142020 Status: Signed Emulsion Operator: Timothy Whitaker MD (Physician) [facility] Service: Cardiothoracic Surgery Brief Op Note Pre-operative Diagnosis: Aortic Stenosis Post-operative Diagnosis: Same Procedure(s): Redo Sternotomy AVR (23 On-X) Surgeon: TIMOTHY WHITAKER MD Assistant Grocery Store Manager(s): Johanny Desai RN FA Anesthesia: General endotrachial anesthesia [...] Physician Filed: 03/14/141599 Date of Service: 03/10/14 4733 Status: Signed Emulsion Operator: Terell Beltran MD (Physician) DENISE GASCA Date of : 1935 REASON FOR CONSULTATION Multiple failed attempts at catheterization. Mr. Gasca, who was under general anesthesia and was scheduled for a procedure by Dr. Grace wilkinson, had Velaqzuez catheter attempts performed, which were unsuccessful. I [...] withdrew the cysto scope and converted a 16-East Timorese Velazquez catheter into Councill tip and was [...] Dr. Whitaker for further surgical management. P/ P/gf/[id number] TERELL BELTRAN MD lan of Care - Conver gurpreet Transaction, Provider Unknown - 03/07/2014 11:06 PM PDT Plan of Care by Denise Quintanilla RN at 03/07/142305 Author: Denise Qunitanilla RN Service: (none) Author Type: Registered Nurse Filed: 03/07/142305 Date of Service: 03/07/142305 Status: Signed Emulsion Operator: Denise Quintanilla RN (Registered Nurse) Problem: Pain [...] | | | | | [place] | | | | | | [address] | | | | | | | [...] | | | Fingerstick | performed at [facility];[address] | | LAB | | | | [address];[place], [place] | | | | | | [address] | | | | + + + [...] | | | Fingerstick | performed at [facility];[address] | | LAB | | | | [address];[place], [place] | | | | | | [address] | | | | + + + [...] EXTERNAL | | | | performed at [facility], [address] | | LAB | | | | [address], | | | | | | [place] [address] | | | | + + + + + + | Red Blood | 2.66 (L)Comment: Testing | 4.20 - 5.70 | EXTERNAL | | | Cells | performed at [facility], [address] | M/uL | LAB | | | Counted | [address], | | | | | | [place] [address] | | | | + + + + + + | Hemoglobin | 8.8 (L)Comment: Testing | 13.2 - 17.0 | EXTERNAL | | | | performed at [facility], [address] | g/dL | LAB | | | | [address], | | | | | | [place] [address] | | | | + + + + + + | Hematocrit, | 26.3 (L)Comment: Testing | 39.0 - 50.0 % | EXTERNAL | | | POC | performed at [facility], [address] | | LAB | | | | [address], | | | | | | [place] [address] | | | | + + + + + + | MCV | 98.9Comment: Testing | 80.0 - 100.0 fl | EXTERNAL | | | | performed at [facility], [address] | | LAB | | | | [address], | | | | | | [place] [address] | | | | + + + + + + | MCH | 33.2Comment: Testing | 27.0 - 34.0 pg | EXTERNAL | | | | performed at [facility], [address] | | LAB | | | | [address], | | | | | | [place] [address] | | | | + + + + + + | MCHC | 33.6Comment: Testing | 32.0 - 35.5 | EXTERNAL | | | | performed at [facility], [address] | g/dL | LAB | | | | [address], | | | | | | [place] [address] | | | | + + + + + + | RDW-CV | 57.8 (H)Comment: Testing | 37 - 53 fl | EXTERNAL | | | | performed at [facility], [address] | | LAB | | | | [address], | | | | | | [place] [address] | | | | + + + + + + | Platelet | 126 (L)Comment: Testing | 150 - 400 K/uL | EXTERNAL | | | Count | performed at [facility], [address] | | LAB | | | Plasma | [address], | | | | | | [place] [address] | | | | + + + + + + | MPV | 9.3Comment: Testing | fl | EXTERNAL | | | | performed at [facility], [address] | | LAB | | | | [address], | | | | | | [place] [address] | | | | + + + [...] | | | | | performed at [facility];[address] | | | | | | [facility];[place], [place] | | | | | | [address] | | | | + + + [...] EXTERNAL | | | | performed at [facility], [address] | | LAB | | | | [address], | | | | | | [place] [address] | | | | + + + [...] | | | | [place] [address] | | | | + + + + + + | K | 5.1 (H)Comment: Testing | 3.5 - 4.9 | EXTERNAL | | | | performed at [facility], [address] | mmol/L | LAB | | | | [address], | | | | | | [place] [address] | | | | + + + + + + | Cl | 98 (L)Comment: Testing | 99 - 109 mmol/L | EXTERNAL | | | | performed at [facility], [address] | | LAB | | | | [address], | | | | | | [place] [address] | | | | + + + + + + | CO2 | 27Comment: Testing | 23 - 32 mmol/L | EXTERNAL | | | | performed at [facility], [address] | | LAB | | | | [address], | | | | | | [place] [address] | | | | + + + + + + | Anion Gap | 9Comment: Testing | 5 - 20 mmol/L | EXTERNAL | | | | performed at [facility], [address] | | LAB | | | | [address], | | | | | | [place] [address] | | | | + + + + + + | Glucose, | 101 (H)Comment: Testing | 65 - 99 mg/dL | EXTERNAL | | | Fasting | performed at [facility], [address] | | LAB | | | | [address], | | | | | | [place] [address] | | | | + + + + + + | BUN | 24Comment: Testing | 8 - 25 mg/dL | EXTERNAL | | | | performed at [facility], [address] | | LAB | | | | [address], | | | | | | [place] [address] | | | | + + + + + + | Creatinine | 1.12Comment: Testing | 0.70 - 1.30 | EXTERNAL | | | | performed at [facility], [address] | mg/dL | LAB | | | | [address], | | | | | | [place] [address] | | | | + + + + + + | BUN/Creatin | 21Comment: Testing | | EXTERNAL | | | ine Ratio | performed at [facility], [address] | | LAB | | | | [address], | | | | | | [place] [address] | | | | + + + + + + | Calcium | 8.8Comment: Testing | 8.5 - 10.2 | EXTERNAL | | | | performed at [facility], [address] | mg/dL | LAB | | | | [facility], | | | | | | [place] [address] | | | | + + + [...] | | | | | | at [facility], [address] | | | | | | [address], | | | | | | [place] [address] | | | | + + + [...] | | | Fingerstick | performed at [facility] | | LAB | | | | [address];[place], [place] | | | | | | [address] | | | | + + + [...] | | | Fingerstick | performed at [facility];[address] | | LAB | | | | [address];[place], [place] | | | | | | [address] | | | | + + + [...] | | | Fingerstick | performed at [facility];[address] | | LAB | | | | [address];[place], [place] | | | | | | [address] | | | | + + + [...] CHEST 2 VIEW FRONTAL | | AND PLWBPYE00/9/2014 8:37 AM HISTORY:Followup tube placement. Recent heart [...] EXTERNAL | | | | performed at [facility];[address] | | LAB | | | | [address];[place] | | | | | | [address] | | | | + + + + + + | Red Blood | 2.80 (L)Comment: Testing | 4.20 - 5.70 | EXTERNAL | | | Cells | performed at [facility];[address] | M/uL | LAB | | | Counted | [address];[place] | | | | | | [address] | | | | + + + + + + | Hemoglobin | 9.1 (L)Comment: Testing | 13.2 - 17.0 | EXTERNAL | | | | performed at [facility];[address] | g/dL | LAB | | | | [address];[place] | | | | | | [address] | | | | + + + + + + | Hematocrit, | 27.3 (L)Comment: Testing | 39.0 - 50.0 % | EXTERNAL | | | POC | performed at [facility];[address] | | LAB | | | | [address];[place] | | | | | | [address] | | | | + + + + + + | MCV | 97.4Comment: Testing | 80.0 - 100.0 fl | EXTERNAL | | | | performed at [facility];[address] | | LAB | | | | [address];[place] | | | | | | [address] | | | | + + + + + + | MCH | 32.6Comment: Testing | 27.0 - 34.0 pg | EXTERNAL | | | | performed at [facility];[address] | | LAB | | | | [address];[place] | | | | | | [address] | | | | + + + + + + | MCHC | 33.4Comment: Testing | 32.0 - 35.5 | EXTERNAL | | | | performed at [facility];[address] | g/dL | LAB | | | | [address];[place] | | | | | | [address] | | | | + + + + + + | RDW-CV | 58.6 (H)Comment: Testing | 37 - 53 fl | EXTERNAL | | | | performed at [facility];[address] | | LAB | | | | [address];[place] | | | | | | [address] | | | | + + + + + + | Platelet | 134 (L)Comment: Testing | 150 - 400 K/uL | EXTERNAL | | | Count | performed at [facility];888 | | LAB | | | Plasma | [address];[place] | | | | | | [address] | | | | + + + + + + | MPV | 8.3Comment: Testing | fl | EXTERNAL | | | | performed at [facility];[address] | | LAB | | | | [address];[place] | | | | | | [address] | | | | + + + [...] | | | | | performed at [facility];88 | | | | | | [facility];[place], [place] | | | | | | [address] | | | | + + + [...] EXTERNAL | | | | performed at [facility];888 | | LAB | | | | [address];[place], [place] | | | | | | [address] | | | | + + + [...] EXTERNAL | | | | performed at [facility];888 | mmol/L | LAB | | | | [address];[place] | | | | | | [address] | | | | + + + + + + | K | 4.9Comment: Testing | 3.5 - 4.9 | EXTERNAL | | | | performed at [facility];888 | mmol/L | LAB | | | | [address];[place] | | | | | | [address] | | | | + + + + + + | Cl | 102Comment: Testing | 99 - 109 mmol/L | EXTERNAL | | | | performed at [facility];[address] | | LAB | | | | [address];[place] | | | | | | [address] | | | | + + + + + + | CO2 | 27Comment: Testing | 23 - 32 mmol/L | EXTERNAL | | | | performed at [facility];[address] | | LAB | | | | [address];[place] | | | | | | [address] | | | | + + + + + + | Anion Gap | 10Comment: Testing | 5 - 20 mmol/L | EXTERNAL | | | | performed at [facility];[address] | | LAB | | | | [address];[place] | | | | | | [address] | | | | + + + + + + | Glucose, | 94Comment: Testing | 65 - 99 mg/dL | EXTERNAL | | | Fasting | performed at [facility];[address] | | LAB | | | | [address];[place] | | | | | | [address] | | | | + + + + + + | BUN | 22Comment: Testing | 8 - 25 mg/dL | EXTERNAL | | | | performed at [facility];[address] | | LAB | | | | [address];[place] | | | | | | [address] | | | | + + + + + + | Creatinine | 1.09Comment: Testing | 0.70 - 1.30 | EXTERNAL | | | | performed at [facility];888 | mg/dL | LAB | | | | [address];[place] | | | | | | [address] | | | | + + + + + + | BUN/Creatin | 20Comment: Testing | | EXTERNAL | | | ine Ratio | performed at [facility];[address] | | LAB | | | | [address];[place] | | | | | | [address] | | | | + + + + + + | Calcium | 8.7Comment: Testing | 8.5 - 10.2 | EXTERNAL | | | | performed at [facility];888 | mg/dL | LAB | | | | [address];[place] | | | | | | [address] | | | | + + + [...] | | | | | | at [facility];[address] [place] [address] | | | | | | [facility];[place] [address] | | | | + + + [...] | | | Fingerstick | performed at [facility];888 | | LAB | | | | [address];[place] | | | | | | [address] | | | | + + + [...] | | | Fingerstick | performed at [facility];[address] | | LAB | | | | [address];[place], [place] | | | | | | [address] | | | | + + + [...] | | | Fingerstick | performed at [facility];[address] | | LAB | | | | [address];[place], [place] | | | | | | [address] | | | | + + + [...] | | | Fingerstick | performed at [facility];888 | | LAB | | | | [address];[place] | | | | | | [address] | | | | + + + [...] | | | Fingerstick | performed at [facility];888 | | LAB | | | | [address];[place] | | | | | | [address] | | | | + + + [...] | | | | | performed at [facility] | | | | | | [address] [facility];[place], [place] | | | | | | [address] | | | | + + + [...] EXTERNAL | | | | performed at [facility], [address] | | LAB | | | | [address], | | | | | | [place] [address] | | | | + + + + + + | Red Blood | 2.77 (L)Comment: Testing | 4.20 - 5.70 | EXTERNAL | | | Cells | performed at [facility], [address] | M/uL | LAB | | | Counted | [address], | | | | | | [place] [address] | | | | + + + + + + | Hemoglobin | 8.9 (L)Comment: Testing | 13.2 - 17.0 | EXTERNAL | | | | performed at [facility], [address] | g/dL | LAB | | | | [address], | | | | | | [place] [address] | | | | + + + + + + | Hematocrit, | 27.5 (L)Comment: Testing | 39.0 - 50.0 % | EXTERNAL | | | POC | performed at [facility], [address] | | LAB | | | | [address], | | | | | | [place] [address] | | | | + + + + + + | MCV | 99.2Comment: Testing | 80.0 - 100.0 fl | EXTERNAL | | | | performed at [facility], [address] | | LAB | | | | [address], | | | | | | [place] [address] | | | | + + + + + + | MCH | 32.0Comment: Testing | 27.0 - 34.0 pg | EXTERNAL | | | | performed at [facility], [address] | | LAB | | | | [address], | | | | | | [place] [address] | | | | + + + + + + | MCHC | 32.3Comment: Testing | 32.0 - 35.5 | EXTERNAL | | | | performed at [facility], [address] | g/dL | LAB | | | | [address], | | | | | | [place] [address] | | | | + + + + + + | RDW-CV | 56.4 (H)Comment: Testing | 37 - 53 fl | EXTERNAL | | | | performed at [facility], [address] | | LAB | | | | [address], | | | | | | [place] [address] | | | | + + + + + + | Platelet | 111 (L)Comment: Testing | 150 - 400 K/uL | EXTERNAL | | | Count | performed at [facility], [address] | | LAB | | | Plasma | [address], | | | | | | [place] [address] | | | | + + + + + + | MPV | 8.7Comment: Testing | fl | EXTERNAL | | | | performed at [facility], [address] | | LAB | | | | [address], | | | | | | [place] [address] | | | | + + + + + + | Differentia | MANUALComment: Testing | | EXTERNAL | | | l Type | performed at [facility], [address] | | LAB | | | | [address], | | | | | | [place], [place] [address] | | | | + + + + + + | Segmented | 87Comment: Testing | % | EXTERNAL | | | Neutrophils | performed at [facility], [address] | | LAB | | | Manual | [address], | | | | | | [place], [place] [address] | | | | + + + + + + | % Bands | 5Comment: Testing | % | EXTERNAL | | | | performed at [facility], [address] | | LAB | | | | [address], | | | | | | [place], [place] [address] | | | | + + + + + + | Lymphocytes | 3Comment: Testing | % | EXTERNAL | | | Manual | performed at [facility], [address] | | LAB | | | | [address], | | | | | | [place] [address] | | | | + + + + + + | Monocytes | 5Comment: Testing | % | EXTERNAL | | | Manual | performed at [facility], [address] | | LAB | | | | [address], | | | | | | [place] [address] | | | | + + + + + + | Absolute | 13.9 (H)Comment: Testing | 1.9 - 7.4 K/uL | EXTERNAL | | | Neutrophils | performed at [facility], [address] | | LAB | | | | [address], | | | | | | [place] [address] | | | | + + + + + + | Bands | 0.8 (H)Comment: Testing | 0 - 0.2 K/uL | EXTERNAL | | | Manual | performed at [facility], [address] | | LAB | | | | [address], | | | | | | [place] [address] | | | | + + + + + + | Absolute | 0.5 (L)Comment: Testing | 1.0 - 3.9 K/uL | EXTERNAL | | | Lymphocytes | performed at [facility], [address] | | LAB | | | | [address], | | | | | | [place] [address] | | | | + + + + + + | Absolute | 0.8Comment: Testing | 0 - 0.8 K/uL | EXTERNAL | | | Monocytes | performed at [facility], [address] | | LAB | | | | [address], | | | | | | [place] [address] | | | | + + + + + + | RBC | 1+Comment: ANISONORMAL | | EXTERNAL | | | Morphology | PLT MORPHTesting | | LAB | | | | performed at [facility], [address] | | | | | | [address], | | | | | | [place] [address] | | | | | | | [...] EXTERNAL | | | | performed at [facility], [address] | | LAB | | | | [address], | | | | | | [place] [address] | | | | + + + [...] | | | | [place] [address] | | | | + + + + + + | K | 4.8Comment: Testing | 3.5 - 4.9 | EXTERNAL | | | | performed at [facility], [address] | mmol/L | LAB | | | | [address], | | | | | | [place] [address] | | | | + + + + + + | Cl | 103Comment: Testing | 99 - 109 mmol/L | EXTERNAL | | | | performed at [facility], [address] | | LAB | | | | [address], | | | | | | [place] [address] | | | | + + + + + + | CO2 | 26Comment: Testing | 23 - 32 mmol/L | EXTERNAL | | | | performed at [facility], [address] | | LAB | | | | [address], | | | | | | [place] [address] | | | | + + + + + + | Anion Gap | 8Comment: Testing | 5 - 20 mmol/L | EXTERNAL | | | | performed at [facility], [address] | | LAB | | | | [address], | | | | | | [place] [address] | | | | + + + + + + | Glucose, | 142 (H)Comment: Testing | 65 - 99 mg/dL | EXTERNAL | | | Fasting | performed at [facility], [address] | | LAB | | | | [address], | | | | | | [place] [address] | | | | + + + + + + | BUN | 23Comment: Testing | 8 - 25 mg/dL | EXTERNAL | | | | performed at [facility], [address] | | LAB | | | | [address], | | | | | | [place] [address] | | | | + + + + + + | Creatinine | 1.16Comment: Testing | 0.70 - 1.30 | EXTERNAL | | | | performed at [facility], [address] | mg/dL | LAB | | | | [address], | | | | | | [place] [address] | | | | + + + + + + | BUN/Creatin | 20Comment: Testing | | EXTERNAL | | | ine Ratio | performed at [facility], [address] | | LAB | | | | [address], | | | | | | [place] [address] | | | | + + + + + + | Calcium | 8.8Comment: Testing | 8.5 - 10.2 | EXTERNAL | | | | performed at [facility], [address] | mg/dL | LAB | | | [facility], | | | | | | [place] [address] | | | | + + + [...] W | | | | | | [facility] | | | | | | [place] [address] | | | | + + + [...] | | | Fingerstick | performed at [facility];[address] | | LAB | | | | [address];[place] | | | | | | [address] | | | | + + + [...] | | | Fingerstick | performed at [facility];[address] | | LAB | | | | [address];[place], [place] | | | | | | [address] | | | | + + + [...] | | | Fingerstick | performed at [facility];[address] | | LAB | | | | [address];[place] | | | | | | [address] | | | | + + + [...] EXTERNAL | | | | performed at [facility];888 | mmol/L | LAB | | | | [address];[place], [place] | | | | | | [address] | | | | + + + [...] | | | Fingerstick | performed at [facility];8 | | LAB | | | | [address];[place], [place] | | | | | | [address] | | | | + + + [...] | | | Fingerstick | performed at [facility];[address] | | LAB | | | | [address];[place], [place] | | | | | | [address] | | | | + + + [...] | | | Fingerstick | performed at [facility];[address] | | LAB | | | | [address];[place] | | | | | | [address] | | | | + + + [...] EXTERNAL | | | | performed at [facility];888 | mmol/L | LAB | | | | [place] [address];[place] | | | | | | [address] | | | | + + + [...] | | | Fingerstick | performed at [facility];[address] | | LAB | | | | [address];[place] | | | | | | [address] | | | | + + + [...] | | | Fingerstick | performed at [facility];[address] | | LAB | | | | [address];[place] | | | | | | [address] | | | | + + + [...] | | | Fingerstick | performed at [facility];[address] | | LAB | | | | [address];[place], [place] | | | | | | [address] | | | | + + + [...] | | | Fingerstick | performed at [facility];[address] | | LAB | | | | [address];[place], [place] | | | | | | [address] | | | | + + + [...] | | | Fingerstick | performed at [facility];[address] | | LAB | | | | [address];[place], [place] | | | | | | [address] | | | | + + + [...] EXTERNAL | | | | performed at [facility], [address] | | LAB | | | | [address], | | | | | | [place] [address] | | | | + + + + + + | Red Blood | 3.07 (L)Comment: Testing | 4.20 - 5.70 | EXTERNAL | | | Cells | performed at [facility], [address] | M/uL | LAB | | | Counted | [address] | | | | | | [place] [address] | | | | + + + + + + | Hemoglobin | 9.9 (L)Comment: Testing | 13.2 - 17.0 | EXTERNAL | | | | performed at [facility], [address] | g/dL | LAB | | | | [address], | | | | | | [place] [address] | | | | + + + + + + | Hematocrit, | 30.2 (L)Comment: Testing | 39.0 - 50.0 % | EXTERNAL | | | POC | performed at [facility], [address] | | LAB | | | | [address], | | | | | | [place] [address] | | | | + + + + + + | MCV | 98.4Comment: Testing | 80.0 - 100.0 fl | EXTERNAL | | | | performed at [facility], [address] | | LAB | | | | [address], | | | | | | [place] [address] | | | | + + + + + + | MCH | 32.3Comment: Testing | 27.0 - 34.0 pg | EXTERNAL | | | | performed at [facility], [address] | | LAB | | | | [address], | | | | | | [place] [address] | | | | + + + + + + | MCHC | 32.8Comment: Testing | 32.0 - 35.5 | EXTERNAL | | | | performed at [facility], [address] | g/dL | LAB | | | | [address], | | | | | | [place] [address] | | | | + + + + + + | RDW-CV | 58.2 (H)Comment: Testing | 37 - 53 fl | EXTERNAL | | | | performed at [facility], [address] | | LAB | | | | [address], | | | | | | [place] [address] | | | | + + + + + + | Platelet | 135 (L)Comment: Testing | 150 - 400 K/uL | EXTERNAL | | | Count | performed at [facility], [address] | | LAB | | | Plasma | [address], | | | | | | [place] [address] | | | | + + + + + + | MPV | 8.2Comment: Testing | fl | EXTERNAL | | | | performed at [facility], [address] | | LAB | | | | [address], | | | | | | [place] [address] | | | | + + + + + + | Differentia | MANUALComment: Testing | | EXTERNAL | | | l Type | performed at [facility], [address] | | LAB | | | | [address], | | | | | | [place] [address] | | | | + + + + + + | Segmented | 81Comment: Testing | % | EXTERNAL | | | Neutrophils | performed at [facility], [address] | | LAB | | | Manual | [address], | | | | | | [place] [address] | | | | + + + + + + | % Bands | 11Comment: Testing | % | EXTERNAL | | | | performed at [facility], [address] | | LAB | | | | [address], | | | | | | [place] [address] | | | | + + + + + + | % | 1Comment: Testing | % | EXTERNAL | | | Metamyelocy | performed at [facility], [address] | | LAB | | | tylor | [address], | | | | | | [place] [address] | | | | + + + + + + | Lymphocytes | 3Comment: Testing | % | EXTERNAL | | | Manual | performed at [facility], [address] | | LAB | | | | [address], | | | | | | [place] [address] | | | | + + + + + + | Monocytes | 4Comment: Testing | % | EXTERNAL | | | Manual | performed at [facility], [address] | | LAB | | | | [address], | | | | | | [place] [address] | | | | + + + + + + | Absolute | 15.8 (H)Comment: Testing | 1.9 - 7.4 K/uL | EXTERNAL | | | Neutrophils | performed at [facility], [address] | | LAB | | | | [address], | | | | | | [place] [address] | | | | + + + + + + | Bands | 2.2 (H)Comment: Testing | 0 - 0.2 K/uL | EXTERNAL | | | Manual | performed at [facility], [address] | | LAB | | | | [address], | | | | | | [place] [address] | | | | + + + + + + | Absolute | 0.2 (H)Comment: Testing | K/uL | EXTERNAL | | | Metamyelocy | performed at [facility], [address] | | LAB | | | tylor | [address], | | | | | | [place] [address] | | | | + + + + + + | Absolute | 0.6 (L)Comment: Testing | 1.0 - 3.9 K/uL | EXTERNAL | | | Lymphocytes | performed at [facility], [address] | | LAB | | | | [address], | | | | | | [place] [address] | | | | + + + + + + | Absolute | 0.8Comment: Testing | 0 - 0.8 K/uL | EXTERNAL | | | Monocytes | performed at [facility], [address] | | LAB | | | | [address], | | | | | | [place] [address] | | | | + + + + + + | RBC | 1+Comment: ANISONORMAL | | EXTERNAL | | | Morphology | PLT MORPHTesting | | LAB | | | | performed at [facility], [address] | | | | | | [address], | | | | | | [place] [address] | | | | | | | [...] EXTERNAL | | | | performed at [facility] | | LAB | | | | [address];[place], [place] | | | | | | [address] | | | | + + + [...] + + | Hemoglobin | 5.4Comment: The [place] | 4.0 - 6.0 % | EXTERNAL [...] | | | | | performed at [facility], [address] | | | | | | [address], | | | | | | [place] [address] | | | | + + + [...] | | | | | performed at [facility], [address] | | | | | | [facility] | | | | | | [place] [address] | | | | + + + [...] EXTERNAL | | | | performed at [facility];888 | mmol/L | LAB | | | | [address];[place] | | | | | | [address] | | | | + + + + + + | K | 5.0 (H)Comment: Testing | 3.5 - 4.9 | EXTERNAL | | | | performed at [facility];888 | mmol/L | LAB | | | | [address];[place] | | | | | | [address] | | | | + + + + + + | Cl | 109Comment: Testing | 99 - 109 mmol/L | EXTERNAL | | | | performed at [facility];[address] | | LAB | | | | [address];[place] | | | | | | [address] | | | | + + + + + + | CO2 | 24Comment: Testing | 23 - 32 mmol/L | EXTERNAL | | | | performed at [facility];[address] | | LAB | | | | [address];[place] | | | | | | [address] | | | | + + + + + + | Anion Gap | 12Comment: Testing | 5 - 20 mmol/L | EXTERNAL | | | | performed at [facility];[address] | | LAB | | | | [address];[place] | | | | | | [address] | | | | + + + + + + | Glucose, | 147 (H)Comment: Testing | 65 - 99 mg/dL | EXTERNAL | | | Fasting | performed at [facility];[address] | | LAB | | | | [address];[place] | | | | | | [address] | | | | + + + + + + | BUN | 19Comment: Testing | 8 - 25 mg/dL | EXTERNAL | | | | performed at [facility];[address] | | LAB | | | | [address];[place] | | | | | | [address] | | | | + + + + + + | Creatinine | 1.00Comment: Testing | 0.70 - 1.30 | EXTERNAL | | | | performed at [facility];[address] | mg/dL | LAB | | | | [address];[place] | | | | | | [address] | | | | + + + + + + | BUN/Creatin | 19Comment: Testing | | EXTERNAL | | | ine Ratio | performed at [facility];[address] | | LAB | | | | [address];[place] | | | | | | [address] | | | | + + + + + + | Calcium | 8.3 (L)Comment: Testing | 8.5 - 10.2 | EXTERNAL | | | | performed at [facility];[address] | mg/dL | LAB | | | | [address];[place] | | | | | | [address] | | | | + + + [...] | | | | | | at [facility];[address];[place] [address] | | | | + + + [...] | | | Fingerstick | performed at [facility];[address] | | LAB | | | | [address];[place] | | | | | | [address] | | | | + + + [...] | | | Fingerstick | performed at [facility];[address] | | LAB | | | | [address];[place] | | | | | | [address] | | | | + + + [...] EXTERNAL | | | | performed at [facility];888 | mmol/L | LAB | | | | [address];[place] | | | | | | [address] | | | | + + + [...] | | | Fingerstick | performed at [facility];[address] | | LAB | | | | [address];[place] | | | | | | [address] | | | | + + + [...] 1.0 cm in aggregate. | | | News Video Editor sections are submitted in cassette A1 and [...] preparation was performed by | | | [employer], [address], | | | [place] [address] (Photo Editor: David Dawson M.D.; | | | [facility]#: [id number]). Diagnostician: Ayad Briscoe MD Pathologist | | [...] | | | Fingerstick | performed at [facility];[address] | | LAB | | | | [address];[place], [place] | | | | | | [address] | | | | + + + [...] + + | Historically converted procedure from [facility] environment | EXTERNAL LAB | + [...] are seen. | | | A left-sided Katy-Christiana catheter sheath is seen with the Katy Ann Marie | | | retracted into [...] - 01/18/2019 9:23 PM PDT DENISE Wilmer OWENROYCELOU CHEST 1 | | VIEW03/10/2014 8:58 PM [...] Transvenous pacing presents are seen. A left-sided Katy-Christiana | | catheter sheath is seen with the Katy Ann Marie retracted into the sheath. The [...] Transvenous pacing presents are seen. A left-sided Katy-Christiana catheter sheath is se en with the Katy Ann Marie retracted into the sheath. The [...] | | | Patient | performed at [facility];88 | | LAB | | | | [address];[place], [place] | | | | | | [address] | | | | + + + [...] | | | | | performed at [facility] | | | | | | [address] [facility];[place], [place] | | | | | | [address] | | | | + + + [...] EXTERNAL | | | | performed at [facility];88 | | LAB | | | | [address];[place], [place] | | | | | | [address] | | | | + + + [...] EXTERNAL | | | | performed at [facility];[address] | | LAB | | | | [address];[place] | | | | | | [address] | | | | + + + + + + | Red Blood | 3.19 (L)Comment: Testing | 4.20 - 5.70 | EXTERNAL | | | Cells | performed at [facility];888 | M/uL | LAB | | | Counted | [address];[place] | | | | | | [address] | | | | + + + + + + | Hemoglobin | 10.3 (L)Comment: Testing | 13.2 - 17.0 | EXTERNAL | | | | performed at [facility];888 | g/dL | LAB | | | | [address];[place] | | | | | | [address] | | | | + + + + + + | Hematocrit, | 30.9 (L)Comment: Testing | 39.0 - 50.0 % | EXTERNAL | | | POC | performed at [facility];[address] | | LAB | | | | [address];[place] | | | | | | [address] | | | | + + + + + + | MCV | 96.9Comment: Testing | 80.0 - 100.0 fl | EXTERNAL | | | | performed at [facility];[address] | | LAB | | | | [address];[place] | | | | | | [address] | | | | + + + + + + | MCH | 32.4Comment: Testing | 27.0 - 34.0 pg | EXTERNAL | | | | performed at [facility];[address] | | LAB | | | | [address];[place] | | | | | | [address] | | | | + + + + + + | MCHC | 33.4Comment: Testing | 32.0 - 35.5 | EXTERNAL | | | | performed at [facility];888 | g/dL | LAB | | | | [address];[place] | | | | | | [address] | | | | + + + + + + | RDW-CV | 56.9 (H)Comment: Testing | 37 - 53 fl | EXTERNAL | | | | performed at [facility];[address] | | LAB | | | | [address];[place] | | | | | | [address] | | | | + + + + + + | Platelet | 141 (L)Comment: Testing | 150 - 400 K/uL | EXTERNAL | | | Count | performed at [facility];[address] | | LAB | | | Plasma | [address];[place] | | | | | | [address] | | | | + + + + + + | MPV | 7.8Comment: Testing | fl | EXTERNAL | | | | performed at [facility];[address] | | LAB | | | | [address];[place] | | | | | | [address] | | | | + + + + + + | Differentia | AUTOMATEDComment: | | EXTERNAL | | | l Type | Testing performed at | | LAB | | | | [facility];[address];[place] [id number] | | | | + + + + + + | % Segmented | 87.9Comment: Testing | % | EXTERNAL | | | | performed at [facility];[address] | | LAB | | | Neutrophils | [address];[place] | | | | | | [address] | | | | + + + + + + | % | 7.0Comment: Testing | % | EXTERNAL | | | Lymphocytes | performed at [facility];[address] | | LAB | | | | [address];[place] | | | | | | [address] | | | | + + + + + + | % Monocytes | 3.8Comment: Testing | % | EXTERNAL | | | | performed at [facility];[address] | | LAB | | | | [address];[place] | | | | | | [address] | | | | + + + + + + | % | 0.8Comment: Testing | % | EXTERNAL | | | Eosinophils | performed at [facility];[address] | | LAB | | | | [address];[place] | | | | | | [address] | | | | + + + + + + | % Basophils | 0.5Comment: Testing | % | EXTERNAL | | | | performed at [facility];[address] | | LAB | | | | [address];[place] | | | | | | [address] | | | | + + + + + + | Absolute | 19.5 (H)Comment: Testing | 1.9 - 7.4 K/uL | EXTERNAL | | | Segmented | performed at [facility];[address] | | LAB | | | Neutrophils | [address];[place] | | | | | | [address] | | | | + + + + + + | Absolute | 1.5Comment: Testing | 1.0 - 3.9 K/uL | EXTERNAL | | | Lymphocytes | performed at [facility];[address] | | LAB | | | | [address];[place] | | | | | | [address] | | | | + + + + + + | Absolute | 0.8Comment: Testing | 0 - 0.8 K/uL | EXTERNAL | | | Monocytes | performed at [facility];[address] | | LAB | | | | [address];[place] | | | | | | [address] | | | | + + + + + + | Absolute | 0.2Comment: Testing | 0 - 0.5 K/uL | EXTERNAL | | | Eosinophils | performed at [facility];[address] | | LAB | | | | [address];[place] | | | | | | [address] | | | | + + + + + + | Absolute | 0.1Comment: Testing | 0 - 0.1 K/uL | EXTERNAL | | | Basophils | performed at [facility];[address] | | LAB | | | | [address];[place] | | | | | | [address] | | | | + + + + + + | Differentia | SLIDE SCANNED, AGREES | | EXTERNAL | | | l Comments | WITH AUTOMATED | | LAB | | | | RESULTS.Comment: Testing | | | | | | performed at [facility];[address] | | | | | | [address];[place] | | | | | | [address] | | | | + + + [...] | | | Fingerstick | performed at [facility];[address] | | LAB | | | | [address];[place] | | | | | | [address] | | | | + + + [...] EXTERNAL | | | | performed at [facility];[address] | | LAB | | | | [address];[place] | | | | | | [address] | | | | + + + [...] EXTERNAL | | | | performed at [facility];888 | mmol/L | LAB | | | | [address];[place] | | | | | | [address] | | | | + + + + + + | K | 4.8Comment: Testing | 3.5 - 4.9 | EXTERNAL | | | | performed at [facility];888 | mmol/L | LAB | | | | [address];[place] | | | | | | [address] | | | | + + + + + + | Cl | 108Comment: Testing | 99 - 109 mmol/L | EXTERNAL | | | | performed at [facility];[address] | | LAB | | | | [address];[place] | | | | | | [address] | | | | + + + + + + | CO2 | 24Comment: Testing | 23 - 32 mmol/L | EXTERNAL | | | | performed at [facility];[address] | | LAB | | | | [address];[place] | | | | | | [address] | | | | + + + + + + | Anion Gap | 14Comment: Testing | 5 - 20 mmol/L | EXTERNAL | | | | performed at [facility];[address] | | LAB | | | | [address];[place] | | | | | | [address] | | | | + + + + + + | Glucose, | 129 (H)Comment: Testing | 65 - 99 mg/dL | EXTERNAL | | | Fasting | performed at [facility];[address] | | LAB | | | | [address];[place] | | | | | | [address] | | | | + + + + + + | BUN | 17Comment: Testing | 8 - 25 mg/dL | EXTERNAL | | | | performed at [facility];[address] | | LAB | | | | [address];[place] | | | | | | [address] | | | | + + + + + + | Creatinine | 0.94Comment: Testing | 0.70 - 1.30 | EXTERNAL | | | | performed at [facility];888 | mg/dL | LAB | | | | [address];[place] | | | | | | [address] | | | | + + + + + + | BUN/Creatin | 19Comment: Testing | | EXTERNAL | | | ine Ratio | performed at [facility];[address] | | LAB | | | | [address];[place] | | | | | | [address] | | | | + + + + + + | Calcium | 8.3 (L)Comment: Testing | 8.5 - 10.2 | EXTERNAL | | | | performed at [facility];888 | mg/dL | LAB | | | | [address];[place] | | | | | | [address] | | | | + + + [...] | | | | | | at [facility];[address] [place] [address] | | | | | | [facility];[place] [address] | | | | + + + [...] | | | (Calc) | performed at [facility];888 | mmol/L | LAB | | | | [address];[place] | | | | | | [address] | | | | + + + + + + | pH, Bld | 7.331Comment: Testing | 7.300 - 7.450 | EXTERNAL | | | | performed at [facility];[address] | | LAB | | | | [address];[place] | | | | | | [address] | | | | + + + [...] This is a non-reportable procedure without a blender operator report and | | | is used for image storage only. Please review the operative | | | procedure notes for details on the procedure. | | + + + + + | Procedure Note | + + | aRudel Aguillon - 01/18/2019 9:23 PM PDT This is a non-reportable procedure | | without a blender operator report and isused for image storage only. Please review the | | operative procedure notesfor details on the procedure. | + + POC ISCAYLAT, CG8, Arterial (03/10/2014 7:26 PM PDT) + + + + + + | Component | Value | Ref Range | Performed | Pathologist | | | | | At | Signature | + + + + + + | PH ART | 7.428Comment: Testing | 7.350 - 7.450 | EXTERNAL | | | | performed at [facility];[address] | | LAB | | | | [address];[place] | | | | | | [address] | | | | + + + + + + | PCO2 ART | 40Comment: Testing | 35 - 45 mmHg | EXTERNAL | | | | performed at [facility];[address] | | LAB | | | | [address];[place] | | | | | | [address] | | | | + + + + + + | PO2 ART | 268 (H)Comment: Testing | 80 - 105 mmHg | EXTERNAL | | | | performed at [facility];[address] | | LAB | | | | [address];[place] | | | | | | [address] | | | | + + + + + + | HCO3 ART | 27 (H)Comment: Testing | 22 - 26 mmol/L | EXTERNAL | | | | performed at [facility];888 | | LAB | | | | [address];[place] | | | | | | [address] | | | | + + + + + + | POC | 28 (H)Comment: Testing | 23 - 27 mEq/L | EXTERNAL | | | APPEARANCE | performed at [facility];[address] | | LAB | | | UA | [address];[place] | | | | | | [address] | | | | + + + + + + | Base | 2Comment: Testing | 0 - 3 mEq/L | EXTERNAL | | | Excess, | performed at [facility];[address] | | LAB | | | Arterial | [address];[place] | | | | | | [address] | | | | + + + + + + | O2 SAT ART | 100 (H)Comment: Testing | 95 - 98 % | EXTERNAL | | | | performed at [facility];[address] | | LAB | | | | [address];[place] | | | | | | [address] | | | | + + + + + + | Sodium, POC | 136Comment: Testing | 135 - 145 mEq/L | EXTERNAL | | | | performed at [facility];[address] | | LAB | | | | [address];[place] | | | | | | [address] | | | | + + + + + + | Potassium, | 5.0Comment: Testing | 3.5 - 5.0 mEq/L | EXTERNAL | | | POC | performed at [facility];[address] | | LAB | | | | [address];[place] | | | | | | [address] | | | | + + + + + + | Ionized | 1.23Comment: Testing | 1.12 - 1.32 | EXTERNAL | | | Calcium, | performed at [facility];888 | mmol/L | LAB | | | POC | [address];[place] | | | | | | [address] | | | | + + + + + + | Glucose, | 112 (H)Comment: Testing | 65 - 99 mg/dL | EXTERNAL | | | POC | performed at [facility];[address] | | LAB | | | | [address];[place] | | | | | | [address] | | | | + + + + + + | Hematocrit, | 25 (L)Comment: Testing | 40.0 - 50.0 % | EXTERNAL | | | POC | performed at [facility];[address] | | LAB | | | | [address];[place] | | | | | | [address] | | | | + + + + + + | Hemoglobin, | 8.5 (L)Comment: Testing | 13.7 - 16.7 | EXTERNAL | | | POC | performed at [facility];888 | g/dL | LAB | | | | [address];[place] | | | | | | [address] | | | | + + + [...] | | LAB | | | | [facility];[address] | | | | | [address];[place] [address] | | | | + + + + + + | PCO2 ART | 38Comment: Testing | 35 - 45 mmHg | EXTERNAL | | | | performed at [facility];[address] | | LAB | | | | [address];[place] | | | | | | [address] | | | | + + + + + + | PO2 ART | 196 (H)Comment: Testing | 80 - 105 mmHg | EXTERNAL | | | | performed at [facility];[address] | | LAB | | | | [address];[place] | | | | | | [address] | | | | + + + + + + | HCO3 ART | 28 (H)Comment: Testing | 22 - 26 mmol/L | EXTERNAL | | | | performed at [facility];[address] | | LAB | | | | [address];[place] | | | | | | [address] | | | | + + + + + + | POC | 29 (H)Comment: Testing | 23 - 27 mEq/L | EXTERNAL | | | APPEARANCE | performed at [facility];[address] | | LAB | | | UA | [address];[place] | | | | | | [address] | | | | + + + + + + | Base | 4 (H)Comment: Testing | 0 - 3 mEq/L | EXTERNAL | | | Excess, | performed at [facility];[address] | | LAB | | | Arterial | [address];[place] | | | | | | [address] | | | | + + + + + + | O2 SAT ART | 100 (H)Comment: Testing | 95 - 98 % | EXTERNAL | | | | performed at [facility];[address] | | LAB | | | | [address];[place] | | | | | | [address] | | | | + + + + + + | Sodium, POC | 137Comment: Testing | 135 - 145 mEq/L | EXTERNAL | | | | performed at [facility];[address] | | LAB | | | | [address];[place] | | | | | | [address] | | | | + + + + + + | Potassium, | 5.8 (H)Comment: Testing | 3.5 - 5.0 mEq/L | EXTERNAL | | | POC | performed at [facility];[address] | | LAB | | | | [address];[place] | | | | | | [address] | | | | + + + + + + | Ionized | 1.08 (L)Comment: Testing | 1.12 - 1.32 | EXTERNAL | | | Calcium, | performed at [facility];888 | mmol/L | LAB | | | POC | [address];[place] | | | | | | [address] | | | | + + + + + + | Glucose, | 100 (H)Comment: Testing | 65 - 99 mg/dL | EXTERNAL | | | POC | performed at [facility];[address] | | LAB | | | | [address];[place] | | | | | | [address] | | | | + + + + + + | Hematocrit, | 25 (L)Comment: Testing | 40.0 - 50.0 % | EXTERNAL | | | POC | performed at [facility];[address] | | LAB | | | | [address];[place] | | | | | | [address] | | | | + + + + + + | Hemoglobin, | 8.5 (L)Comment: Testing | 13.7 - 16.7 | EXTERNAL | | | POC | performed at [facility];888 | g/dL | LAB | | | | [address];[place], [place] | | | | | | [address] | | | | + + + [...] EXTERNAL | | | | performed at [facility];[address] | | LAB | | | | [address];[place] | | | | | | [address] | | | | + + + + + + | PCO2 ART | 43Comment: Testing | 35 - 45 mmHg | EXTERNAL | | | | performed at [facility];[address] | | LAB | | | | [address];[place] | | | | | | [address] | | | | + + + + + + | PO2 ART | 264 (H)Comment: Testing | 80 - 105 mmHg | EXTERNAL | | | | performed at [facility];[address] | | LAB | | | | [address];[place] | | | | | | [address] | | | | + + + + + + | HCO3 ART | 29 (H)Comment: Testing | 22 - 26 mmol/L | EXTERNAL | | | | performed at [facility];[address] | | LAB | | | | [address];[place] | | | | | | [address] | | | | + + + + + + | POC | 30 (H)Comment: Testing | 23 - 27 mEq/L | EXTERNAL | | | APPEARANCE | performed at [facility];[address] | | LAB | | | UA | [address];[place] | | | | | | [address] | | | | + + + + + + | Base | 4 (H)Comment: Testing | 0 - 3 mEq/L | EXTERNAL | | | Excess, | performed at [facility];[address] | | LAB | | | Arterial | [address];[place] | | | | | | [address] | | | | + + + + + + | O2 SAT ART | 100 (H)Comment: Testing | 95 - 98 % | EXTERNAL | | | | performed at [facility];[address] | | LAB | | | | [address];[place] | | | | | | [address] | | | | + + + + + + | Sodium, POC | 137Comment: Testing | 135 - 145 mEq/L | EXTERNAL | | | | performed at [facility];[address] | | LAB | | | | [address];[place] | | | | | | [address] | | | | + + + + + + | Potassium, | 4.7Comment: Testing | 3.5 - 5.0 mEq/L | EXTERNAL | | | POC | performed at [facility];[address] | | LAB | | | | [address];[place] | | | | | | [address] | | | | + + + + + + | Ionized | 1.09 (L)Comment: Testing | 1.12 - 1.32 | EXTERNAL | | | Calcium, | performed at [facility];888 | mmol/L | LAB | | | POC | [address];[place] | | | | | | [address] | | | | + + + + + + | Glucose, | 96Comment: Testing | 65 - 99 mg/dL | EXTERNAL | | | POC | performed at [facility];[address] | | LAB | | | | [address];[place] | | | | | | [address] | | | | + + + + + + | Hematocrit, | 26 (L)Comment: Testing | 40.0 - 50.0 % | EXTERNAL | | | POC | performed at [facility];[address] | | LAB | | | | [address];[place] | | | | | | [address] | | | | + + + + + + | Hemoglobin, | 8.8 (L)Comment: Testing | 13.7 - 16.7 | EXTERNAL | | | POC | performed at [facility];888 | g/dL | LAB | | | [...] | | + +---------+ + + POC MITALI MAYBERRY Arterial (03/10/2014 5:36 PM PDT) + + + + + + | Component | Value | Ref Range | Performed | Pathologist | | | | | At | Signature | + + + + + + | PH ART | 7.378Comment: Testing | 7.350 - 7.450 | EXTERNAL | | | | performed at [facility];[address] | | LAB | | | | [address];[place] | | | | | | [address] | | | | + + + + + + | PCO2 ART | 50 (H)Comment: Testing | 35 - 45 mmHg | EXTERNAL | | | | performed at [facility];[address] | | LAB | | | | [address];[place] | | | | | | [address] | | | | + + + + + + | PO2 ART | 303 (H)Comment: Testing | 80 - 105 mmHg | EXTERNAL | | | | performed at [facility];[address] | | LAB | | | | [address];[place] | | | | | | [address] | | | | + + + + + + | HCO3 ART | 29 (H)Comment: Testing | 22 - 26 mmol/L | EXTERNAL | | | | performed at [facility];[address] | | LAB | | | | [address];[place] | | | | | | [address] | | | | + + + + + + | POC | 31 (H)Comment: Testing | 23 - 27 mEq/L | EXTERNAL | | | APPEARANCE | performed at [facility];[address] | | LAB | | | UA | [address];[place] | | | | | | [address] | | | | + + + + + + | Base | 4 (H)Comment: Testing | 0 - 3 mEq/L | EXTERNAL | | | Excess, | performed at [facility];[address] | | LAB | | | Arterial | [address];[place] | | | | | | [address] | | | | + + + + + + | O2 SAT ART | 100 (H)Comment: Testing | 95 - 98 % | EXTERNAL | | | | performed at [facility];[address] | | LAB | | | | [address];[place] | | | | | | [address] | | | | + + + + + + | Sodium, POC | 135Comment: Testing | 135 - 145 mEq/L | EXTERNAL | | | | performed at [facility];[address] | | LAB | | | | [address];[place] | | | | | | [address] | | | | + + + + + + | Potassium, | 6.4 (HH)Comment: Testing | 3.5 - 5.0 mEq/L | EXTERNAL | | | POC | performed at [facility];[address] | | LAB | | | | [address];[place] | | | | | | [address] | | | | + + + + + + | Ionized | 1.07 (L)Comment: Testing | 1.12 - 1.32 | EXTERNAL | | | Calcium, | performed at [facility];888 | mmol/L | LAB | | | POC | [address];[place] | | | | | | [address] | | | | + + + + + + | Glucose, | 101 (H)Comment: Testing | 65 - 99 mg/dL | EXTERNAL | | | POC | performed at [facility];[address] | | LAB | | | | [address];[place] | | | | | | [address] | | | | + + + + + + | Hematocrit, | 24 (L)Comment: Testing | 40.0 - 50.0 % | EXTERNAL | | | POC | performed at [facility];[address] | | LAB | | | | [address];[place] | | | | | | [address] | | | | + + + + + + | Hemoglobin, | 8.2 (L)Comment: Testing | 13.7 - 16.7 | EXTERNAL | | | POC | performed at [facility];888 | g/dL | LAB | | | | [address];[place] | | | | | | [address] | | | | + + + [...] | | LAB | | | | [facility];[address];[place] [address] | | | | + + + + + + | PCO2 ART | 66 (HH)Comment: Testing | 35 - 45 mmHg | EXTERNAL | | | | performed at [facility];[address] | | LAB | | | | [address];[place] | | | | | | [address] | | | | + + + + + + | PO2 ART | 405 (H)Comment: Testing | 80 - 105 mmHg | EXTERNAL | | | | performed at [facility];[address] | | LAB | | | | [address];[place] | | | | | | [address] | | | | + + + + + + | HCO3 ART | 29 (H)Comment: Testing | 22 - 26 mmol/L | EXTERNAL | | | | performed at [facility];[address] | | LAB | | | | [address];[place] | | | | | | [address] | | | | + + + + + + | POC | 31 (H)Comment: Testing | 23 - 27 mEq/L | EXTERNAL | | | APPEARANCE | performed at [facility];[address] | | LAB | | | UA | [address];[place] | | | | | | [address] | | | | + + + + + + | Base | 2Comment: Testing | 0 - 3 mEq/L | EXTERNAL | | | Excess, | performed at [facility];[address] | | LAB | | | Arterial | [address];[place] | | | | | | [address] | | | | + + + + + + | O2 SAT ART | 100 (H)Comment: Testing | 95 - 98 % | EXTERNAL | | | | performed at [facility];[address] | | LAB | | | | [address];[place] | | | | | | [address] | | | | + + + + + + | Sodium, POC | 135Comment: Testing | 135 - 145 mEq/L | EXTERNAL | | | | performed at [facility];[address] | | LAB | | | | [address];[place] | | | | | | [address] | | | | + + + + + + | Potassium, | 4.4Comment: Testing | 3.5 - 5.0 mEq/L | EXTERNAL | | | POC | performed at [facility];[address] | | LAB | | | | [address];[place] | | | | | | [address] | | | | + + + + + + | Ionized | 1.21Comment: Testing | 1.12 - 1.32 | EXTERNAL | | | Calcium, | performed at [facility];888 | mmol/L | LAB | | | POC | [address];[place] | | | | | | [address] | | | | + + + + + + | Glucose, | 107 (H)Comment: Testing | 65 - 99 mg/dL | EXTERNAL | | | POC | performed at [facility];[address] | | LAB | | | | [address];[place] | | | | | | [address] | | | | + + + + + + | Hematocrit, | 32 (L)Comment: Testing | 40.0 - 50.0 % | EXTERNAL | | | POC | performed at [facility];[address] | | LAB | | | | [address];[place] | | | | | | [address] | | | | + + + + + + | Hemoglobin, | 10.9 (L)Comment: Testing | 13.7 - 16.7 | EXTERNAL | | | POC | performed at [facility];888 | g/dL | LAB | | | | [address];[place] | | | | | | [address] | | | | + + + [...] EXTERNAL | | | | performed at [facility];[address] | | LAB | | | | [address];[place], [place] | | | | | | [address] | | | | + + + + + + | PCO2 ART | 45Comment: Testing | 35 - 45 mmHg | EXTERNAL | | | | performed at [facility];[address] | | LAB | | | | [address];[place] | | | | | | [address] | | | | + + + + + + | PO2 ART | 288 (H)Comment: Testing | 80 - 105 mmHg | EXTERNAL | | | | performed at [facility];[address] | | LAB | | | | [address];[place] | | | | | | [address] | | | | + + + + + + | HCO3 ART | 28 (H)Comment: Testing | 22 - 26 mmol/L | EXTERNAL | | | | performed at [facility];[address] | | LAB | | | | [address];[place] | | | | | | [address] | | | | + + + + + + | POC | 30 (H)Comment: Testing | 23 - 27 mEq/L | EXTERNAL | | | APPEARANCE | performed at [facility];[address] | | LAB | | | UA | [address];[place] | | | | | | [address] | | | | + + + + + + | Base | 4 (H)Comment: Testing | 0 - 3 mEq/L | EXTERNAL | | | Excess, | performed at [facility];[address] | | LAB | | | Arterial | [address];[place] | | | | | | [address] | | | | + + + + + + | O2 SAT ART | 100 (H)Comment: Testing | 95 - 98 % | EXTERNAL | | | | performed at [facility];[address] | | LAB | | | | [address];[place] | | | | | | [address] | | | | + + + + + + | Sodium, POC | 138Comment: Testing | 135 - 145 mEq/L | EXTERNAL | | | | performed at [facility];[address] | | LAB | | | | [address];[place] | | | | | | [address] | | | | + + + + + + | Potassium, | 3.8Comment: Testing | 3.5 - 5.0 mEq/L | EXTERNAL | | | POC | performed at [facility];[address] | | LAB | | | | [address];[place] | | | | | | [address] | | | | + + + + + + | Ionized | 1.22Comment: Testing | 1.12 - 1.32 | EXTERNAL | | | Calcium, | performed at [facility];888 | mmol/L | LAB | | | POC | [address];[place] | | | | | | [address] | | | | + + + + + + | Glucose, | 88Comment: Testing | 65 - 99 mg/dL | EXTERNAL | | | POC | performed at [facility];[address] | | LAB | | | | [address];[place] | | | | | | [address] | | | | + + + + + + | Hematocrit, | 30 (L)Comment: Testing | 40.0 - 50.0 % | EXTERNAL | | | POC | performed at [facility];[address] | | LAB | | | | [address];[place] | | | | | | [address] | | | | + + + + + + | Hemoglobin, | 10.2 (L)Comment: Testing | 13.7 - 16.7 | EXTERNAL | | | POC | performed at [facility];888 | g/dL | LAB | | | | [address];[place] | | | | | | [address] | | | | + + + [...] | | | Fingerstick | performed at [facility];[address] | | LAB | | | | [address];[place], [place] | | | | | | [address] | | | | + + + [...] + + | Historically converted procedure from [facility] | EXTERNAL LAB | + + [...] | | | Patient | performed at [facility];[address] | | LAB | | | | [address];[place] | | | | | | [address] | | | | + + + [...] | | | | | performed at [facility];[address] | | | | | | [facility];[place], [place] | | | | | | [address] | | | | + + + [...] | | | Patient | performed at [facility];[address] | | LAB | | | | [address];[place], [place] | | | | | | [address] | | | | + + + [...] Pal, Rad Conversion - 01/18/2019 9:23 PM [facility] DENISE STONE CHEST 2 VIEW FRONTAL | | AND LBUVCAA45/5/2014 6:17 PM History: 78 years. Male. Aortic [...] | | | Patient | performed at [facility];888 | | LAB | | | | [address];[place], [place] | | | | | | [address] | | | | + + + [...] Raudel Aguillon - 01/18/2019 9:23 PM PDT HISTORY:Preoperative evaluation [...] EXTERNAL LAB | | Testing performed at [facility];[address] [place] [address];[place] [address] MRSA PCR | | | NEGATIVE Testing performed at | | | [address];[place] [address] | | + + + + +---------+ [...] common femoral vein was cannulized with a 7-[place]ore[place] sheath and | | | the right common femoral artery was cannulized with a 6-[place] | | | sheath. Over a guidewire a 5-[place] FL-4 diagnostic catheter was | | | advanced to the ascending aorta and found to be too short. So it was | | | exchanged for a 5-[place] FL-6 catheter that selectively engaged the | | | left main. Contrast was injected. A selective angiogram for the left | | | main, LAD, and left circumflex arteries was performed in different | | | views. Over a guidewire it was exchanged for a diagnostic 5-[place] | | | FR-4 catheter selectively engaging the right coronary artery. | | | Contrast was injected. A selective angiogram for the right coronary | | | artery was performed in different views. Over a guidewire it was | | | exchanged for a 5-[place] FR-4 diagnostic catheter that selectively | | | engaged the RCA. Contrast was injected. Selective angiogram for the | | | RCA was performed in different views. The catheter was removed. | | | Through the venous sheath, a Katy-Christiana catheter was advanced to the | | [...] success, and so it was exchanged for 5-[place] | | | AL-1 diagnostic catheter with a fixed cord straight tip wire. I was | | | able to advance the AL-1 to the left ventricle, and the AL-1 was | | | exchanged over a 260 exchange wire to a 6-[place] Alex catheter | | | that was advanced to the left ventricle. Gradient across the aortic | | | valve was measured and the gradient across the mitral valve was | | | measured with the wedge position. Then the Katy-Christiana catheter was | | | removed. The Ivel catheter was removed over the guidewire, and | | | both sheaths were removed. Manual pressure was held for 20 minutes | | | with good hemostasis. The patient was transferred to the recovery | | | area in stable condition. FINDINGS HEMODYNAMICS 1. Systemic | | | pressure 103/62. 2. Left ventricular end-diastolic pressure 21 mmHg. | | | 3. Srhk-yf-nxwz gradient across the aortic valve 46 mmHg. [...] vein was cannulized | | with a 7-[place]se sheath and the right common femoral artery was cannulized | | with a 6-[place] sheath. Over a guidewire a 5-[place] FL-4 diagnostic | | catheter was advanced to the ascending aorta and found to be too short. So | | it was exchanged for a 5-[place] FL-6 catheter that selectively engaged the | | left main. Contrast was injected. A selective angiogram for the left main, | | LAD, and left circumflex arteries was performed in different views. Over a | | guidewire it was exchanged for a diagnostic 5-[place] FR-4 catheter | | selectively engaging the right coronary artery. Contrast was injected. A | | selective angiogram for the right coronary artery was performed in | | different views. Over a guidewire it was exchanged for a 5-[place] FR-4 | | diagnostic catheter that selectively engaged the RCA. Contrast was | | injected. Selective angiogram for the RCA was performed in different | | views. | | | | The catheter was removed. | | | | Through the venous sheath, a Katy-Christiana catheter was advanced to the right | [...] success, and so it was exchanged for 5-[place] AL-1 diagnostic catheter | | with a fixed cord straight tip wire. I was able to advance the AL-1 to the | | left ventricle, and the AL-1 was exchanged over a 260 exchange wire to a | | 6-[place] Alex catheter that was advanced to the left ventricle. | | Gradient across the aortic valve was measured and the gradient across the | | mitral valve was measured with the wedge position. Then the Katy-Christiana | | catheter was removed. The Alex [...] end-diastolic pressure 21 mmHg. | | 3. Jgxn-gp-jdje gradient across the aortic valve 46 mmHg. [...] + + + | aPTT, | 81 (HH)Comment: CALLED | 23 - 32 seconds | EXTERNAL | | | Patient | NURSING HYNM2WD,FRANSISCA | | LAB | | | | B AT 0235 BY [facility] | | | | | | RESULTS VERIFIEDTesting | | | | | | performed at [facility];[address] | | | | | | [address];[place] | | | | | | [address] | | | | + + + [...] | | | | | performed at [facility];[address] | | | | | | [place] [facility];[place], [place] | | | | | | [address] | | | | + + + [...] | Patient | TO [facility] AT | | LAB | | | | 1851 BY [employer] BACK | | | | | | RESULTS VERIFIEDTesting | | | | | | performed at [facility];[address] | | | | | | [address];[place], [place] | | | | | | [address] | | | | + + + [...] EXTERNAL | | | | performed at [facility];[address] | | LAB | | | | [place] [address];[place] | | | | | | [address] | | | | + + + + + + | Red Blood | 3.52 (L)Comment: Testing | 4.20 - 5.70 | EXTERNAL | | | Cells | performed at [facility];888 | M/uL | LAB | | | Counted | [place] [address];[place] | | | | | | [address] | | | | + + + + + + | Hemoglobin | 11.4 (L)Comment: Testing | 13.2 - 17.0 | EXTERNAL | | | | performed at [facility];888 | g/dL | LAB | | | | [address];[place] | | | | | | [address] | | | | + + + + + + | Hematocrit, | 34.1 (L)Comment: Testing | 39.0 - 50.0 % | EXTERNAL | | | POC | performed at [facility];[address] | | LAB | | | | [address];[place] | | | | | | [address] | | | | + + + + + + | MCV | 96.7Comment: Testing | 80.0 - 100.0 fl | EXTERNAL | | | | performed at [facility];[address] | | LAB | | | | [address];[place] | | | | | | [address] | | | | + + + + + + | MCH | 32.2Comment: Testing | 27.0 - 34.0 pg | EXTERNAL | | | | performed at [facility];[address] | | LAB | | | | [address];[place] | | | | | | [address] | | | | + + + + + + | MCHC | 33.3Comment: Testing | 32.0 - 35.5 | EXTERNAL | | | | performed at [facility];888 | g/dL | LAB | | | | [address];[place] | | | | | | [address] | | | | + + + + + + | RDW-CV | 56.4 (H)Comment: Testing | 37 - 53 fl | EXTERNAL | | | | performed at [facility];[address] | | LAB | | | | [address];[place] | | | | | | [address] | | | | + + + + + + | Platelet | 178Comment: Testing | 150 - 400 K/uL | EXTERNAL | | | Count | performed at [facility];[address] | | LAB | | | Plasma | [address];[place] | | | | | | [address] | | | | + + + + + + | MPV | 8.1Comment: Testing | fl | EXTERNAL | | | | performed at [facility];[address] | | LAB | | | | [address];[place] | | | | | | [address] | | | | + + + [...] | | | Patient | performed at [facility];[address] | | LAB | | | | [address];[place], [place] | | | | | | [address] | | | | + + + [...] | | | | | performed at [facility];88 | | | | | | [place] [facility];[place], [place] | | | | | | [address] | | | | + + + [...] | | | | | performed at [facility] | | | | | | [facility];[place], [place] | | | | | | [address] | | | | + + + [...] | | | | [place] [address] | | | | + + + + + + | Red Blood | 3.27 (L)Comment: Testing | 4.20 - 5.70 | EXTERNAL | | | Cells | performed at [facility], [address] | M/uL | LAB | | | Counted | [address], | | | | | | [place] [address] | | | | + + + + + + | Hemoglobin | 10.4 (L)Comment: Testing | 13.2 - 17.0 | EXTERNAL | | | | performed at [facility], [address] | g/dL | LAB | | | | [address], | | | | | | [place] [address] | | | | + + + + + + | Hematocrit, | 32.2 (L)Comment: Testing | 39.0 - 50.0 % | EXTERNAL | | | POC | performed at [facility], [address] | | LAB | | | | [address], | | | | | | [place] [address] | | | | + + + + + + | MCV | 98.6Comment: Testing | 80.0 - 100.0 fl | EXTERNAL | | | | performed at [facility], [address] | | LAB | | | [address], | | | | | | [place] [address] | | | | + + + + + + | MCH | 31.9Comment: Testing | 27.0 - 34.0 pg | EXTERNAL | | | | performed at [facility], [address] | | LAB | | | | [address], | | | | | | [place] [address] | | | | + + + + + + | MCHC | 32.4Comment: Testing | 32.0 - 35.5 | EXTERNAL | | | | performed at [facility], [address] | g/dL | LAB | | | | [address], | | | | | | [place] [address] | | | | + + + + + + | RDW-CV | 56.9 (H)Comment: Testing | 37 - 53 fl | EXTERNAL | | | | performed at [facility], [address] | | LAB | | | | [address], | | | | | | [place] [address] | | | | + + + + + + | Platelet | 168Comment: Testing | 150 - 400 K/uL | EXTERNAL | | | Count | performed at [facility], [address] | | LAB | | | Plasma | [address], | | | | | | [place] [address] | | | | + + + + + + | MPV | 8.7Comment: Testing | fl | EXTERNAL | | | | performed at [facility], [address] | | LAB | | | | [address], | | | | | | [place] [address] | | | | + + + + + + | Differentia | AUTOMATEDComment: | | EXTERNAL | | | l Type | Testing performed at | | LAB | | | | [facility], [address] | | | | | | [place] | | | | | | [address] | | | | + + + + + + | % Segmented | 81.1Comment: Testing | % | EXTERNAL | | | | performed at [facility], [address] | | LAB | | | Neutrophils | [address], | | | | | | [place], [place] [address] | | | | + + + + + + | % | 8.6Comment: Testing | % | EXTERNAL | | | Lymphocytes | performed at [facility], [address] | | LAB | | | | [address], | | | | | | [place] [address] | | | | + + + + + + | % Monocytes | 7.2Comment: Testing | % | EXTERNAL | | | | performed at [facility], [address] | | LAB | | | | [address], | | | | | | [place] [address] | | | | + + + + + + | % | 2.2Comment: Testing | % | EXTERNAL | | | Eosinophils | performed at [facility], [address] | | LAB | | | | [address], | | | | | | [place] [address] | | | | + + + + + + | % Basophils | 0.9Comment: Testing | % | EXTERNAL | | | | performed at [facility], [address] | | LAB | | | | [address], | | | | | | [place] [address] | | | | + + + + + + | Absolute | 6.5Comment: Testing | 1.9 - 7.4 K/uL | EXTERNAL | | | Segmented | performed at [facility], [address] | | LAB | | | Neutrophils | [address], | | | | | | [place] [address] | | | | + + + + + + | Absolute | 0.7 (L)Comment: Testing | 1.0 - 3.9 K/uL | EXTERNAL | | | Lymphocytes | performed at [facility], [address] | | LAB | | | | [address], | | | | | | [place] [address] | | | | + + + + + + | Absolute | 0.6Comment: Testing | 0 - 0.8 K/uL | EXTERNAL | | | Monocytes | performed at [facility], [address] | | LAB | | | | [address], | | | | | | [place] [address] | | | | + + + + + + | Absolute | 0.2Comment: Testing | 0 - 0.5 K/uL | EXTERNAL | | | Eosinophils | performed at [facility], [address] | | LAB | | | | [address], | | | | | | [place] [address] | | | | + + + + + + | Absolute | 0.1Comment: Testing | 0 - 0.1 K/uL | EXTERNAL | | | Basophils | performed at [facility], [address] | | LAB | | | | [address], | | | | | | [place] [address] | | | | + + + [...] | | | | [place] [address] | | | | + + + + + + | K | 4.2Comment: Testing | 3.5 - 4.9 | EXTERNAL | | | | performed at [facility], [address] | mmol/L | LAB | | | | [address], | | | | | | [place] [address] | | | | + + + + + + | Cl | 100Comment: Testing | 99 - 109 mmol/L | EXTERNAL | | | | performed at [facility], [address] | | LAB | | | | [address], | | | | | | [place] [address] | | | | + + + + + + | CO2 | 29Comment: Testing | 23 - 32 mmol/L | EXTERNAL | | | | performed at [facility], [address] | | LAB | | | | [address], | | | | | | [place] [address] | | | | + + + + + + | Anion Gap | 9Comment: Testing | 5 - 20 mmol/L | EXTERNAL | | | | performed at [facility], [address] | | LAB | | | | [address], | | | | | | [place] [address] | | | | + + + + + + | Glucose, | 133 (H)Comment: Testing | 65 - 99 mg/dL | EXTERNAL | | | Fasting | performed at [facility], [address] | | LAB | | | | [address], | | | | | | [place] [address] | | | | + + + + + + | BUN | 31 (H)Comment: Testing | 8 - 25 mg/dL | EXTERNAL | | | | performed at [facility], [address] | | LAB | | | | [address], | | | | | | [place] [address] | | | | + + + + + + | Creatinine | 1.28Comment: Testing | 0.70 - 1.30 | EXTERNAL | | | | performed at [facility], [address] | mg/dL | LAB | | | | [address], | | | | | | [place] [address] | | | | + + + + + + | BUN/Creatin | 24Comment: Testing | | EXTERNAL | | | ine Ratio | performed at [facility], [address] | | LAB | | | | [address], | | | | | | [place] [address] | | | | + + + + + + | Calcium | 9.1Comment: Testing | 8.5 - 10.2 | EXTERNAL | | | | performed at [facility], [address] | mg/dL | LAB | | | | [address], | | | | | | [place] [address] | | | | + + + + + + | Protein, | 6.4Comment: Testing | 6.3 - 8.2 g/dL | EXTERNAL | | | Total | performed at [facility], [address] | | LAB | | | | [address], | | | | | | [place] [address] | | | | + + + + + + | Albumin | 3.6Comment: Testing | 3.3 - 4.8 g/dL | EXTERNAL | | | | performed at [facility], [address] | | LAB | | | | [address], | | | | | | [place] [address] | | | | + + + + + + | Globulin | 2.8Comment: Testing | 1.3 - 4.9 g/dL | EXTERNAL | | | | performed at [facility], [address] | | LAB | | | | [address], | | | | | | [place] [address] | | | | + + + + + + | A/G Ratio | 1.3Comment: Testing | 1.0 - 2.4 | EXTERNAL | | | | performed at [facility], [address] | | LAB | | | | [address], | | | | | | [place], [place] [address] | | | | + + + + + + | Bilirubin | 1.3Comment: Testing | 0.1 - 1.5 mg/dL | EXTERNAL | | | Total | performed at [facility], [address] | | LAB | | | | [address], | | | | | | [place] [address] | | | | + + + + + + | ALP, | 61Comment: Testing | 35 - 115 U/L | EXTERNAL | | | External | performed at [facility], [address] | | LAB | | | | [address], | | | | | | [place] [address] | | | | + + + + + + | AST | 26Comment: Testing | 10 - 45 U/L | EXTERNAL | | | | performed at [facility], [address] | | LAB | | | | [address], | | | | | | [place] [address] | | | | + + + + + + | ALT | 15Comment: Testing | 10 - 65 U/L | EXTERNAL | | | | performed at [facility], [address] | | LAB | | | | [address], | | | | | | [place] [address] | | | | + + + [...] | | | | | | at [facility], [address] | | | | | | [address], | | | | | | [place] [address] | | | | + + + [...]
--- OUTSIDE RECORDS SUMMARY | ~2019-12-07 | XMS | Encounter Summary ---
Demographics + + + | Address | [address] | | | [place] [address] | + + + | Home Phone | | + + + | Preferred Language | Unknown | + + + | Marital Status | | + + + | Buddhist Affiliation | 1013 | + + + | Race | Unknown | + + + | Ethnic Group | Unknown | + + + Author + + + | Author | Located Within [facility] | | | and [place] | + + + | Organization | Located Within [facility] | | [...] | | | | [place] [address] | | + + + + + | Juana Ventura | ECON | [address] | | | | | [place] | | | | | [address] | | + + + + + | [place] Ventura | ECON | Unknown | | + + + + + Care Team Providers + +------+ + | Care Cabinet Builder Name | Role | Phone | + +------+ + | Timo Lorenzana | PCP | | | MD | | | + +------+ + Encounter Details +--------+ + + + + | Date | Type | Department | Care Team | Description | +--------+ + + + + | 07/19/ | Hospital | [facility] | Off[place], | Cough | | 2012 - | Encounter | MED CTR XRAY [address] | [place] You MD | | | | | [place] | | | | 07/21/ | | [place] [address] | | | | 2012 | | [phone] | | | +--------+ + + + [...] [place] | | | | | | [address] | | | | | | | [...] Performed At | + + + | [facility] Diagnostic Imaging | [facility] | | Department [address] [place] [address] | [facility] | | [ rep ct [email or web address]] [ rep [facility] | | [facility]] Signed | - IMAGING | | | | | Patient Name: SERGE VENTURA Physician: | | | : 1935 Age: 77 Sex: M Unit #: [id number] | | | Exam Date: 07/19/12 Location: [facility] | | | Report #: [id number] Page: | | | %(RAD)RES..mtdd.print.filter("pg") of %(RAD) | | | RES..mtdd.print.filter("tpg") | | | | | | Accession Number: [id number] | | | TWO-VIEW CHEST CLINICAL HISTORY: [...] Transcribed Date/Time: | | | 07/19/2012 19:42 [place]: | | | <<Signature on File>> | | | | | | Orlando Mehta MD07/20/12 0836 <Electronically signed by | | | Orlando Mehta MD> Orlando Mehta MD 07/19/12 | | | [address]: Lj [id number] | | | Florence La MD | | + + + + + + + + | Performing | Address | City/State/Zipcode | Phone Number | | Organization | | | | + + + + + | [facility] | [address] | [place] | [phone] | | [facility] | | [address] | | | - IMAGING | | | | + + + + + documented in this encounter Visit Diagnoses + + | Diagnosis | + + | Cough | + + documented in this encounter
--- OUTSIDE RECORDS SUMMARY | ~2019-12-07 | XMS | Encounter Summary ---
Demographics + + + | Address | [address] | | | [place] [address] | + + + | Home Phone | | + + + | Preferred Language | Unknown | + + + | Marital Status | | + + + | Adventist Affiliation | 1013 | + + + | Race | Unknown | + + + | Ethnic Group | Unknown | + + + Author + + + | Author | [facility] | | | and [place] | + + + | Organization | [facility] | | | [...] | | | | [place] [address] | | + + + + + | Juana Gasca | ECON | [address] | | | | | [place] | | | | | [address] | | + + + + + | Chad Gasca | ECON | Unknown | | + + + + + Care Team Providers + +------+ + | Care Process Equipment Operator Name | Role | Phone | [...] + + | 03/28/ | Office | [facility] | [place], | COPD (chronic | | 2013 | Visit | PULMONARY [address] | [place] oYu MD | obstructive | | | | [place], | | pulmonary disease) | | | | [place] [address] | | (Primary Dx); | | | | [phone] | | Obstructive sleep | | | | | | apnea on BiPAP; | | | | | | 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 Oyagakvqedw-Ibnlugyvz-Dac C-Mn (GLUCOSAMINE 1500 COMPLEX PO) Take 1,500 [...] nodes: Cervical and supraclavicular nodes normal Data: [facility] Data: Dates: 02/25-03/26/14 Home Health Company: [...] made to ensure accuracy; however, inadvertent computerized fit model errors may be pre sent. Electronically signed [...] | | | | | [place] | | | | | | [address] | | | | | | | [...]
--- OUTSIDE RECORDS SUMMARY | ~2019-12-07 | XMS | Encounter Summary ---
Demographics + + + | Address | [address] | | | [place] [address] | + + + | Home Phone | | + + + | Preferred Language | Unknown | + + + | Marital Status | | + + + | Sabianist Affiliation | 1013 | + + + | Race | Unknown | + + + | Ethnic Group | Unknown | + + + Author + + + | Author | [facility] | | | and [place] | + + + | Organization | [facility] | | | [...] | | | | [place] [address] | | + + + + + | Juana Gasca | ECON | [address] | | | | | [place] | | | | | [address] | | + + + + + | Chad Gasca | ECON | Unknown | | + + + + + Care Team Providers + +------+ + | Care Photo Tube Assembler Name | Role | Phone | [...] [address] | | | | | [address] | | [address] | | | | | IMPLTBL DFB | | [place], [place] | | | | | PLSE GEN | | [address] Phone: | | | | | W/REPL PLSE | | [phone] | | | | | GEN 1 LEAD | | Fax: | | | | | CO | | [phone] | | | | | INSJ/RPLCMT | | | | | | | PERM DFB | | | | | | | W/TRNSVNS | | | | | | | LDS 1/DUAL | | | | | | | CHMBR CO | | | | | | | [...] +--------+--------+ + + + + Encounter Details +--------+---------+ + + + | Date | Type | Department | Care Team | Description | +--------+---------+ + + + | 11/12/ | Surgery | [facility] | Spenser Schultz, | CV EP PM GEN CHANGE | | 2019 | | [facility] | [address] | | | | | LAB [address] [facility] | [place], | | | | | [place], [place] | [place] [address] | | | | | [address] | [phone] | | | | | [phone] | | | +--------+---------+ + + + [...] in this encounter Discharge Instructions Instructions Mansoor Strong FNP - 11/13/2019Make sure your INR is between 2.5 an d 3.5 Take 10 mg of warfarin per day, get an INR next week and weekly until between 2.5 and 3.5 ( this is important!) Get some press and seal to cover the incision for one week when you shower [phone] [employer] cell to send picture of incision in one week GENERATOR CHANGE Discharge Instructions FOLLOW-UP APPOINTMENTS First, be sure to come for all of your post-operative check-ups. The first visit is usually to check that your incision is healing properly. You will be seen by the Nurse or Nurse Pra ctitioner in approximately 7-10 days after pacemaker implantation. Your appointments will be at the [facility] from the [facility]. The address is [address] [place] [address]. The office is located on the 3rd floor. This appointment should already be scheduled for you, but if not, please call [phone] to schedule your appointment. INC[facility] SITE CARE [...] ask to speak with the nurse at . There are certain signs of infection to [...] 3 mLs by | | 0 | // | | | mL nebulizer | nebulization [...] might be different fr om the original. [facility] SERVICE: ELECTROPHYSIOLOGY INTERVAL H & P UPDATE There have been no significant changes since the written history and physical below, elbae bobby by Dr. Hylton. He continues on his [...] tablet Take 1,000 mcg by mouth daily. Qvmoxzjdrwh-Clvvcinut-Cib C-Mn (GLUCOSAMINE 1500 COMPLEX PO) Take 3,000 [...] Hx Pacemaker/ICD: 08/30/2007, Guidant Insignia 1291, SN: [id number]. Last interrogation 10/30/2019 MARY, 96% ASSESSMENT: Patient [...] Spenser Schultz MD - 11/13/2019 1:46 PM [facility] OPERATIVE REPORT SPENSER SCHULTZ MD Patient: DENISE GASCA Admitting: SPENSER SCHULTZ MR #: [id number] LOC: PT TYPE: Adm Date: 11/13/2019 : 1935 DATE OF PROCEDURE: 11/13/2019 PROCEDURE: A dual-chamber pacemaker generator change out to a single chamber permanent pac emaker. HISTORY: This 84-year-old gentleman was referred for a pacemaker generator change out [facility] e his current device is at elective [...] a [employer]. Herb model 1882TC, se rial #[id number]. The ventricular lead is a Guidant, model 4088, serial #[id number]. The current pacemaker is a Guidant, model 1291, serial #[id number]. PROCEDURE NOTE: The patient was brought to [...] The lead was attached to a new Bison [employer] Accolade MRI compatible pacemaker (model L310, serial #[id number]). 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 Current pacemaker is at end-of-life Post-operative Diagnosis: Same Procedure(s): Permanent pacemaker generator change out. The dual-chamber pacemaker was melida ngraded to a single-chamber device. The atrial lead was capped off. Bison scientific mackenzie forrester Surgeon: Spenser Schultz MD Church Musician(s): Sam Anesthesia: Monitor Anesthesia care Estimated Blood [...] [place] | | | | | | [address] | | | | | | | [...] | | | | | performed at [facility] | | | | | | [address];[place], [place] | | | | | | [address] | | | | + + + + + + + + | Specimen | + + | Blood | + + + + + + + | Performing | Address | City/State/Zipcode | Phone Number | | Organization | | | | + + + + + | [facility] | [address] | [place] [address] | [phone] | + + + + + Basic [...] 48 (L)Comment: GFR <60: | >60 | [facility] | | | GFR | CHRONIC KIDNEY [...] | | | | | | MDRD IDRI traceable | | | | | | equation.Testing | | | | | | performed at [facility];[address] | | | | | | [facility];[place], [place] | | | | | | [address] | | | | + + + + + + + + | Specimen | + + | Blood | + + + + + + + | Performing | Address | City/State/Zipcode | Phone Number | | Organization | | | | + + + + + | [facility] | [address] | [place] [address] | [phone] | + + + + + documented [...] | | +---+---+ + +-------+ +-------+---+---+ | lidocaine 1% injection ONCE | Given | 06/10/20 | 80 mg | | | | PRN, Starting 11/13/19 at | | 20 1:04 | | | | | 1304, Intra-op | | PM PDT | | | | + +-------+ +-------+---+---+ +---+---+ | | | +---+---+ + +-------+ [...]
--- OUTSIDE RECORDS SUMMARY | ~2019-12-07 | XMS | Encounter Summary ---
Demographics + + + | Address | [address] | | | [place] [address] | + + + | Home Phone [...] | | | | [place] [address] | | + + + + + | Juana Gasca | ECON | [address] | | | | | [place] | | | | | [address] | | + + + + + | Chad Gasca | ECON | Unknown | | + + + + + Care Team Providers + +------+ + | Care Parachute Harness Rigger Name | Role | Phone | + [...] MD | cough) | | | | [place], | | | | | | [place] [address] | | | | | | [phone] | | | +--------+ + + + [...] | | | | | [place], [place] | | | | | | [address] | | | | | | | [...]
--- OUTSIDE RECORDS SUMMARY | ~2019-12-07 | XMS | Encounter Summary ---
Demographics + + + | Address | [address] | | | [place] [address] | + + + | Home Phone [...] | | | | [place] [address] | | + + + + + | Juana Gasca | ECON | [address] | | | | | [place] | | | | | [address] | | + + + + + | Chad Gasca | ECON | Unknown | | + + + + + Care Team Providers + +------+ + | Care Semiconductor Packages Leak Tester Name | Role | Phone | [...] + + | 10/20/ | Refill | [facility] | Elif Hylton, | Medication Refill | | 2019 | | CARDIOLOGY [place] | [address] | ([place], | | | | [address] | [place] | Carvedilol, | | | | [address] [address] | [address] | Potassium) | | | | [place] | | | | | | [address] | | | | | | [phone] | | | +--------+--------+ + + + [...] [place] | | | | | | [address] | | | | | | | [...]
--- OUTSIDE RECORDS SUMMARY | ~2019-12-07 | XMS | Encounter Summary ---
Demographics + + + | Address | [address] | | | [place] [address] | + + + | Home Phone [...] | | | | [place] [address] | | + + + + + | Juana Gasca | ECON | [address] | | | | | [place] | | | | | [address] | | + + + + + | Chad Gasca | ECON | Unknown | | + + + + + Care Team Providers + +------+ + | Care Ramp And Cargo Supervisor Name | Role | Phone | [...] | | | | | [place] [address] | | | | | | [phone] | | | +--------+ + + + [...] | | | | | [place] | | | | | | [address] | | | | | | | [...]
--- OUTSIDE RECORDS SUMMARY | ~2019-12-07 | XMS | Encounter Summary ---
Demographics + + + | Address | [address] | | | [place] [address] | + + + | Home Phone [...] | | | | [place] [address] | | + + + + + | Juana Gasca | ECON | [address] | | | | | [place] | | | | | [address] | | + + + + + | Chad Gasca | ECON | Unknown | | + + + + + Care Team Providers + +------+ + | Care Paving Block Cutter Name | Role | Phone | + +------+ + | Timo Lorenzana | PCP | | | MD | | | + +------+ + Encounter Details +--------+ + + + + | Date | Type | Department | Care Team | Description | +--------+ + + + + | 02/05/ | Hospital | [facility] | Conversion | Pain | | 2016 | Encounter | CONVERSION DEP [address] | Transaction, | | | | | [address] | Provider Unknown | | | | | [place] | [phone] | | | | | [address] | | | | | | [phone] | | | +--------+ + + + [...] | | | | | [place] | | | | | | [address] | | | | | | | [...]
--- OUTSIDE RECORDS SUMMARY | ~2019-12-07 | XMS | Encounter Summary ---
Demographics + + + | Address | [address] | | | [place] [address] | + + + | Home Phone | | + + + | Preferred Language | Unknown | + + + | Marital Status | | + + + | Hindu Affiliation | 1013 | + + + [...] | | | | [place] [address] | | + + + + + | Juana Gasca | ECON | [address] | | | | | [place] | | | | | [address] | | + + + + + | Chad Gasca | ECON | Unknown | | + + + + + Care Team Providers + +------+ + | Care Neuropsychology Medical Consultant Name | Role | Phone | [...] | (pediatric) | | | | [place] [address] | | | | | | [phone] | | | +--------+ + + + [...] | | | | | | [facility] | | | | | | [address] | | | | | | | [...]
--- OUTSIDE RECORDS SUMMARY | ~2019-12-07 | XMS | Encounter Summary ---
Demographics + + + | Address | [address] | | | [place] [address] | + + + | Home Phone | | + + + | Preferred Language | Unknown | + + + | Marital Status | | + + + | Samaritan Affiliation | 1013 | + + + | Race | Unknown | + + + | Ethnic Group | Unknown | + + + Author + + + | Author | [facility] | | | and [place] | + + + | Organization | [facility] | | | and [place] | + + + | Address | Unknown | + + + | Phone | Unavailable | + + + Support + + + + + | Name | Relationship | Address | Phone | + + + + + | Frances Gasca | ECON | NA | | | | | [place] [address] | | + + + + + | Juana Gasca | ECON | [address] | | | | | [place] | | | | | [address] | | + + + + + | Chad Gasca | ECON | Unknown | | + + + + + Care Team Providers + +------+ + | Care Pig Caster Name | Role | Phone | + [...] | (pediatric) | | | | [place] [address] | | | | | | [phone] | | | +--------+ + + + [...] | | | | | | [place] [facility] | | | | | | [address] | | | | | | | [...]
--- OUTSIDE RECORDS SUMMARY | ~2019-12-07 | XMS | Encounter Summary ---
Demographics + + + | Address | [address] | | | [place] [address] | + + + | Home Phone [...] | | | | [place] [address] | | + + + + + | Juana Gasca | ECON | [address] | | | | | [place] | | | | | [address] | | + + + + + | Chad Gasca | ECON | Unknown | | + + + + + Care Team Providers + +------+ + | Care Geological Engineer Name | Role | Phone | [...] + + | 10/29/ | Office | [facility] | Mulu Weinstein, | Atrial fibrillation, | | 2020 | Visit | CARDIOLOGY [place] | [address] | chronic (HCC) | | | | [address] | [place] | (Primary Dx); | | | | [address] | [address] | Essential | | | | [place] | | hypertension, | | | | [address] | | benign; | | | | [phone] | | Atherosclerosis of | | | | | | [place] coronary | | | | | | artery of [place] | | | | | | heart [...] tablet Take 1,000 mcg by mouth daily. Tbodwqlmvhz-Jwuhfryvl-Jxx C-Mn (GLUCOSAMINE 1500 COMPLEX PO) Take 3,000 [...] Hx Pacemaker/ICD: 08/30/2007, Guidant Insignia 1291, SN: [id number]. Last interrogation 10/30/2019 MARY, 96% ASSESSMENT: Patient [...] [place] | | | | | | [address] | | | | | | | [...] of | | | | | | [place] coronary | | | | | | artery of [place] | | | | | | heart [...] MD | | | | | | ([phone]) on 10/31/2019 | | | | | [...] benign | + + | Atherosclerosis of [place] coronary artery of [place] heart without angina pectoris | + + | S/P AVR (aortic valve replacement) Heart valve replaced by other means | + + | S/P MVR (mitral valve replacement) Heart valve replaced by other means | + + documented in this encounter
--- OUTSIDE RECORDS SUMMARY | ~2019-12-07 | XMS | Encounter Summary ---
Demographics + + + | Address | [address] | | | [place] [address] | + + + | Home Phone | | + + + | Preferred Language | Unknown | + + + | Marital Status | | + + + | Jainism Affiliation | 1013 | + + + | Race | Unknown | + + + | Ethnic Group | Unknown | + + + Author + + + | Author | [facility] | | | and [place] | + + + | Organization | [facility] | | | [...] | | | | [place] [address] | | + + + + + | Juana Gasca | ECON | [address] | | | | | [place] | | | | | [address] | | + + + + + | Chad Gasca | ECON | Unknown | | + + + + + Care Team Providers + +------+ + | Care Turbine Subassembler Name | Role | Phone | + [...] | | | | | [place] [address] | | | | | | [phone] | | | +--------+ + + + [...] daily, Disp: 3 each, Rfl: 4; Glucosam jkp-Bpesvzcdb-Rql C-Mn (GLUCOSAMINE 1500 COMPLEX PO), Take 1,500 [...] nightly., Disp: , Rfl: Respiratory Therapy Supplies [facility], Discontinue nebulizer. Fax to [facility] Home [facility]., [...] [place] | | | | | | [address] | | | | | | | [...]
--- OUTSIDE RECORDS SUMMARY | ~2019-12-07 | XMS | Encounter Summary ---
Demographics + + + | Address | [address] | | | [place] [address] | + + + | Home Phone [...] | | | | [place] [address] | | + + + + + | Juana Ventura | ECON | [address] | | | | | [place] | | | | | [address] | | + + + + + | Chad Ventura | ECON | Unknown | | + + + + + Care Team Providers + +------+ + | Care Risk Lead Name | Role | Phone | + +------+ + | Timo Lorenzana | PCP | | | MD | | | + +------+ + Encounter Details +--------+ + + + + | Date | Type | Department | Care Team | Description | +--------+ + + + + | 07/19/ | Hospital | [facility] | [place]enstein, | Cough | | 2012 - | Encounter | MED CTR XRAY [address] | Florence You MD | | | | | [place] | | | | 07/21/ | | [place] [address] | | | | 2012 | | [phone] | | | +--------+ + + + [...] 05/06/ | Office | Cardiology | Elif Hlyton, | | | 2019 | Visit | | MD Asad FIELDS | | | | | | [place], [place] | | | | | | [address] | | | | | | | [...] Performed At | + + + | [facility] | [place] | | Department [address] [place] [address] | [facility] | | [ rep ct [id number]] [ rep [facility] | | [facility]] Signed | - IMAGING | | | | | Patient Name: SERGE VENTURA Physician: | | | : 1935 Age: 77 Sex: M Unit #: [id number] | | | Exam Date: 07/19/12 [place] [facility] | | | Report #: [id number] Page: | | | %(RAD)RES..mtdd.print.filter("pg") of %(RAD) | | | RES..mtdd.print.filter("tpg") | | | | | | Accession Number: [id number] | | | TWO-VIEW CHEST CLINICAL HISTORY: [...] Transcribed Date/Time: | | | 07/19/2012 19:42 Hot Plate Plywood Press Feeder: | | | <<Signature on File>> | | | | | | Orlando Mehta MD07/20/12 0836 <Electronically signed by | | | Orlando Mehta MD> Orlando Mehta MD 07/19/12 | | | 1733 [address] Plywood Press Feeder: Lj [id number] | | | Florence La MD | | + + + + + + + + | Performing | Address | City/State/Zipcode | Phone Number | | Organization | | | | + + + + + | [place] [facility] | [address] | [place] | [phone] | | [facility] | | [address] | | | - IMAGING | | | | + + + + + documented in this encounter Visit Diagnoses + + | Diagnosis | + + | Cough | + + documented in this encounter
--- OUTSIDE RECORDS SUMMARY | ~2019-12-07 | XMS | Encounter Summary ---
Demographics + + + | Address | [address] | | | [place] [address] | + + + | Home Phone [...] | | | | [place] [address] | | + + + + + | Juana Gasca | ECON | [address] | | | | | [place] | | | | | [address] | | + + + + + | Chad Gasca | ECON | Unknown | | + + + + + Care Team Providers + +------+ + | Care Fixture Maker Name | Role | Phone | [...] MD | cough) | | | | [place], | | | | | | [place] [address] | | | | | | [phone] | | | +--------+ + + + [...] | | | | | [place], [place] | | | | | | [address] | | | | | | | [...]
--- OUTSIDE RECORDS SUMMARY | ~2019-12-07 | XMS | Encounter Summary ---
Demographics + + + | Address | [address] | | | [place] [address] | + + + | Home Phone [...] | | | | [place] [address] | | + + + + + | Juana Ventura | ECON | [address] | | | | | [place] | | | | | [address] | | + + + + + | Chad Ventura | ECON | Unknown | | + + + + + Care Team Providers + +------+ + | Care Tier In Name | Role | Phone | + +------+ + PCP | Unavailable | + +------+ + Encounter Details +--------+ + + + + | Date | Type | Department | Care Team | Description | +--------+ + + + + | 11/05/ | Hospital | [facility] | Jin Epps MD | Aortic Valve | | 2008 | Encounter | [facility] | [address] | Disorder | | | | CLINICAL DECISION | [place] [address] | | | | | [address] [place] [address] [address]VD | [phone] | | | | | [place], [place] | | | | | | [address] | | | | | | [phone] | | | +--------+ + + + [...] [place] | | | | | | [address] | | | | | | | [...] Performed At | + + + | [id number] | | | Page 1 [facility] NAME: | | | [place] [address] MEDICAL RECORD #: | | | [id number] | | | DATE OF : 1935 ORDER | | | NUMBER: [id number] EXAM DATE/TIME: 11/05/2008 13:07 PERFORMING | | [...] pericardium is normal. | | | MEASUREMENTS Liquor Department Manager: CM Authenticated | | | by: Jin Epps MD Report Date/Time: 11-06-2008 17:11:22 | | + + + + + | Procedure Note | + + | Raudel Aguillon - 01/28/2019 1:25 AM PDT [id number] | | Page [address] [place] [address] NAME: DENISE VENTURA, | | [place] [address] : ACCOUNT #: | | [id number]: DATE OF : 1935ORDER NUMBER: | | [id number] DATE/TIME: 11/05/2008 13:07PERFORMING PHYSICIAN: Jin Epps MDORDER [...] The pericardium is normal. MEASUREMENTS | | Liquor Department Manager: STEFANIEuthenticated by: Jin LATHAMjostin Date/Time: 11-06-2008 17:11:22 [...] | |MEASUREMENTS | | | | | |Liquor Department Manager: PRESTON | |Authenticated by: Jin Epps MD | |Report Date/Time: 11-06-2008 17:11:22 | + + documented in this encounter Visit Diagnoses + + | Diagnosis | + + | Aortic valve disorder Aortic valve disorders | + + documented in this encounter"
--- OUTSIDE RECORDS SUMMARY | ~2019-12-07 | XMS | Encounter Summary ---
Demographics + + + | Address | [address] | | | [place] [address] | + + + | Home Phone [...] | | | | [place] [address] | | + + + + + | Juana Ventura | ECON | [address] | | | | | [place] | | | | | [address] | | + + + + + | Chad Ventura | ECON | Unknown | | + + + + + Care Team Providers + +------+ + | Care Automotive Technician Name | Role | Phone | [...] | | [address] | [place], [place] | | | | | [place], [place] | [address] | | | | | [address] | | | | | | [phone] | | | +--------+ + + + [...] | | | | | [place] | | | | | | [address] | | | | | | | [...] | maxP.00 mmHg TR Vmax: 2.44 m/s Hydroelectric Station Chief: ROMAN | | | Authenticated by: Elif Pascualdalton Report Date/Time: 12-22-2016 | | | 18:57:07 | | + + + + + | Procedure Note | + + | Raudel Aguillon Conversion - 01/24/2019 6:35 PM PDT Patient Name: SERGE VENTURA | | of : 1935 Performing Physician: Elif | | [facility] INDICATIONS------ | | -----CHRONIC AFIB, [...] cmLVPWd: 1.30 | | cmLVOT Area: 4.44 zc8VOFY Diam: 2.37 cm%FS: 29.59 %EF(Teich): 55.93 %ESV(Teich): [...] | | (A-L): 88.66 ml/m2LAAs A2C: 40.42 cv1OEQFP A-L A2C: 192.14 mlLALs A2C: 7.21 | | cmLAAs A4C: 44.95 rx5QJQDI A-L A4C: 230.04 mlLALs A4C: 7.45 cmRAAs: 36.03 | | lo1UMPKX A-L: 181.00 mlRAESV MOD: 158.29 mlRALs: 6.08 cmTAPSE: 1.64 cmAV maxPG: | | 15.56 mmHgAV meanP.06 mmHgAV Vmax: 1.97 m/Lauren Vmean: 1.44 m/Lauren VTI: 38.62 | | cmAVA Vmax: 1.81 cm2AVA (VTI): 1.83 dq4IMXU Vmax: 0.00 cm2/m2AVAI (VTI): 0.00 | | [...] 29.00 mmHgTR maxP.00 mmHgTR Vmax: 2.44 m/s Hydroelectric Station Chief: DBSAuthenticated by: | | [facility] [...] |TR Vmax: 2.44 m/s | | | |Hydroelectric Station Chief: DBS | |Authenticated by: Elif Hylton | [...]
--- OUTSIDE RECORDS SUMMARY | ~2019-12-07 | XMS | Encounter Summary ---
Demographics + + + | Address | [address] | | | [place] [address] | + + + | Home Phone [...] | | | | [place] [address] | | + + + + + | Juana Gasca | ECON | [address] | | | | | [place] | | | | | [address] | | + + + + + | Chad Gasca | ECON | Unknown | | + + + + + Care Team Providers + +------+ + | Care Electrical Prospecting Supervisor Name | Role | Phone | [...] | (pediatric) | | | | [place] [address] | | | | | | [phone] | | | +--------+ + + + [...] | | | | | | [facility] | | | | | | [address] | | | | | | | [...]
--- OUTSIDE RECORDS SUMMARY | ~2019-12-07 | XMS | Encounter Summary ---
Demographics + + + | Address | [address] | | | [place] [address] | + + + | Home Phone [...] | | | | [place] [address] | | + + + + + | Juana Gasca | ECON | [address] | | | | | [place] | | | | | [address] | | + + + + + | Chad Gasca | ECON | Unknown | | + + + + + Care Team Providers + +------+ + | Care Business Mail Entry Clerk Name | Role | Phone | [...] + + | 09/21/ | Office | [facility] | [place], | COPD (Primary Dx); | | 2012 | Visit | PULMONARY [address] | Florence You MD | Obstructive sleep | | | | [place], | | apnea on BiPAP | | | | [place] [address] | | | | | | [phone] | | | +--------+---------+ + + + [...] and Monday. 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 documented in [...] | | | | | [place] | | | | | | [id number] | | | | | | | [...]
--- OUTSIDE RECORDS SUMMARY | ~2019-12-07 | XMS | Encounter Summary ---
Demographics + + + | Address | [address] | | | [place] [address] | + + + | Home Phone [...] | | | | [place] [id number] | | + + + + + | Juana Gasca | ECON | [address] | | | | | [place] | | | | | [phone] | | + + + + + | Chad Gasca | ECON | Unknown | | + + + + + Care Team Providers + +------+ + | Care Automobile Assembler Name | Role | Phone | + +------+ + PCP | Unavailable | + +------+ + Encounter Details +--------+ + + + + | Date | Type | Department | Care Team | Description | +--------+ + + + + | 03/07/ | [facility] | [facility] | Ramo Fortune | Atrial Fibrillation | | 2007 | Encounter | [facility] | MD [address] | ([facility]) | | | | CLINICAL DECISION | Calvin Pastor | | | | | [address] | [place] [address] | | | | | [place], [place] | [phone] | | | | | [address] | | | | | | [phone] | | | +--------+ + + + [...] [place] | | | | | | [address] | | | | | | | [...]
--- OUTSIDE RECORDS SUMMARY | ~2019-12-07 | XMS | Encounter Summary ---
Demographics + + + | Address | [address] | | | [place] [address] | + + + | Home Phone [...] | | | | [place] [address] | | + + + + + | Juana Gasca | ECON | [address] | | | | | [place] | | | | | [address] | | + + + + + | Chad Gasca | ECON | Unknown | | + + + + + Care Team Providers + +------+ + | Care First Assist Name | Role | Phone | + +------+ + PCP | Unavailable | + +------+ + Encounter Details +--------+ + + + + | Date | Type | Department | Care Team | Description | +--------+ + + + + | 06/02/ | Hospital | [facility] | [place], | | | 2010 | Encounter | MED CTR GENERIC OP | Florence You MD | | | | | CONV DEPT [address] | | | | | | [place], | | | | | | [place] [address] | | | | | | [phone] | | | +--------+ + + + [...] Florence La MD Pulmonary Medicine JOB #: [id number] EXT JOB #:[id number] EDITED: 06/03/2011 08:55 cc: Timo Lorenzana MD <Electronically Signed by Florence La MD> 06/03/11 6654 documented in this encounter Plan of Treatment [...] [place] | | | | | | [place] | | | | | | [address] | | | | | | | [...]
--- OUTSIDE RECORDS SUMMARY | ~2019-12-07 | XMS | Encounter Summary ---
Demographics + + + | Address | [address] | | | [place] [address] | + + + | Home Phone | | + + + | Preferred Language | Unknown | + + + | Marital Status | | + + + | Orthodoxy Affiliation | 1013 | + + + | Race | Unknown | + + + | Ethnic Group | Unknown | + + + Author + + + | Author | [facility] | | | and [place] | + + + | Organization | [facility] | | [...] | | | | [place] [address] | | + + + + + | Juana Gasca | ECON | [address] | | | | | [place] | | | | | [address] | | + + + + + | Chad Gasca | ECON | Unknown | | + + + + + Care Team Providers + +------+ + | Care Rn Social Services Name | Role | Phone | + [...] + + | 03/08/ | Office | [facility] | Yuri Raymond | Centrilobular | | 2019 | Visit | PULMONOLOGY [address] | Rush Raymond MD [address] | emphysema (HCC) | | | | [place] | [place] | (Primary Dx); | | | | [place], [place] | [place] [address] | Chronic obstructive | | | | [address] | [phone] | pulmonary disease, | | | | [phone] | | unspecified COPD | | | [...] might be dif ferent from the original. [facility] PULMONOLOGY [address] [place] [address] HISTORY: Chief Complaint: I have been asked to assist in the pulmonary evaluation of Serge Zambrano an, 83 y.o. male, for COPD History of Present Illness: Interval history: "Serge Gasca is a 80 year old gentleman referred to me for COPD. He was previously fol lowing with Dr. La at [place] for his pulmonary issues. He is maintained [...] - REDO; Surgeon: Jassi Elizondo MD; Location: [facility] MAIN OR; Service: Cardiac; Laterality: N/A; OTHER SURGICAL HISTORY 03/10/2014 CYSTOSTOMY W/ BLADDER DILATION - Procedure: CYSTOSCOPY - DILATATION; Surgeon: Timothy badillo MD; Location: [facility] MAIN OR; Service: Cardiac; Laterality: [...] into the lungs 2 (two) times daily. Xsmwpxunnbi-Kbyimvcau-Lbz C-Mn (GLUCOSAMINE 1500 COMPLEX PO) (Taking) Take [...] Raymond MD Pulmonary and Critical Care Medicine [facility] Pulmonology documented in this encounter Plan of [...] | | | | | [place] | | | | | | [address] | | | | | | | [...]
--- OUTSIDE RECORDS SUMMARY | ~2019-12-07 | XMS | Encounter Summary ---
Demographics + + + | Address | [address] | | | [place] [address] | + + + | Home Phone [...] | | | | [place] [address] | | + + + + + | Juana Gasca | ECON | [address] | | | | | [place] | | | | | [address] | | + + + + + | Chad Gasca | ECON | Unknown | | + + + + + Care Team Providers + +------+ + | Care Physical Therapy Assistant Name | Role | Phone | + +------+ + PCP | Unavailable | + +------+ + Encounter Details +--------+ + + + + | Date | Type | Department | Care Team | Description | +--------+ + + + + | 07/16/ | Hospital | [facility] | Enrique Graf, | VITREOUS HEMORRHAGE | | 2001 | Encounter | [facility] | [address] | ([facility]ERLY [facility]) | | | | OUTPATIENT | [place], [place] | | | | | PROCEDURES [address] | [address] | [address] | | [address] | | | | | | [place], [place] | | | | | | [address] | | | | | | [phone] | | | +--------+ + + + [...] [place] | | | | | | [address] | | | | | | | [...]
--- OUTSIDE RECORDS SUMMARY | ~2019-12-07 | XMS | Clinical Summary ---
Demographics + + + | Address | [address] | | | [place] [address] | + + + | Home Phone | | + + + | Preferred Language | Unknown | + + + | Marital Status | | + + + | Confucianism Affiliation | 1013 | + + + | Race | Unknown | + + + | Ethnic Group | Unknown | + + + Author + + + | Author | [facility] | | | and [place] | + + + | Organization | [facility] | | [...] | | | | [place] [address] | | + + + + + | Juana Gasca | ECON | [address] | | | | | [place] | | | | | [address] | | + + + + + | Chad Gasca | ECON | Unknown | | + + + + + Care Team Providers + +------+ + | Care Wood Block Artist Name | Role | Phone | [...] automatically from request for surgery | | [id number] | + + + + + | Gastro-esophageal reflux disease with esophagitis | 01/19/2019 | + + + | Centrilobular emphysema | 03/10/2016 | + + + | Rheumatic valvular disease | 04/03/2014 | + + + + + | Overview: Last Assessment & Plan: Hx MVR/AVR (RHD). 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 Anticoagulation managed by | | 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 | | | angina pectoris [...] 08/30/2007, Guidant | | Insignia 1291, SN: [id number] Cath, 03/09/2014: RA: 80/13 mean | | [...] Post-op Question | 2019 | | | PIG IRON LOADER | | +--------+ + + + + [...] | | 2019 | Event | | DRAWING SUPERVISOR | | +--------+ + + + + [...] of | | | | | | mi'kmaq coronary | | | | | | artery of mi'kmaq | | | | | | heart [...] | | | | | [place] [facility] [place] | | | | | | [address] | | | | | | | [...] - | Pacema | | [place] | [id number] | 06/19/ | L310 | | [id number]: Qty: 1 on | ker | | SCIENTIFIC | [id number] | 2021 | /[id number] | | 11/13/2019 by Spenser Potter | | | ERICH - BSCI | 04 | | 8 / | | MD Gorge at [facility] | | | | | | | | [facility] | | | | | | | + +--------+-------+ +--------+--------+--------+ | Pacing Wire Dual | | N/A: | JORGITO | | 10/02/ | 030-00 | | 030-005 - | | Heart | MEDICAL | | 2018 | 5 / | | [id number]: Qty: 1 on | | | SPECIALTI - | | | /166 | | 03/10/2014 | | | WILSushma | | | | + +--------+-------+ +--------+--------+--------+ | Pacing Wire Dual | | N/A: | JORGITO | | 10/02/ | 030-00 | | 030-005 - | | Heart | MEDICAL | | 2018 | 5 / | | [id number]: Qty: 1 on | | | SPECIALTI - | | | /166 | | 03/10/2014 | | | WILS | | | | + +--------+-------+ +--------+--------+--------+ | Valve Aortic Mec 23mm | | N/A: | NA UNKNOWN | | 10/02/ | ONXACE | | Onxace-23 S/N - | | Heart | | | 2018 | -23 | | [id number]: Qty: 1 on | | | | | | /[id number] | | 03/10/2014 | | | | | | 02 / | + +--------+-------+ +--------+--------+--------+ | Pacing Wire Dual | | N/A: | JORGITO | | 09/02/ | 030-00 | | 030-005 - | | Heart | MEDICAL | | 2018 | 5 / | | [id number]: Qty: 1 on | | | SPECIALTI [...] Primary cardiology | | | provider: [facility] Primary electrophysiology provider: Spenser | | | Tariq Mode of interrogation: Seen in cardiac device | | | clinic Device: Blue Bus Tees Battery Longevity: 10.5 | | | years. [...] performed by: Yesika Cadet, | | | Physician Referral Network (PRN) Reviewed by: GINGER Hinojosa | | + [...] | | | | | performed at [facility] | | | | | | [facility];[place], [place] | | | | | | [address] | | | | + + + + + + + + | Specimen | + + | Blood | + + + + + + + | Performing | Address | City/State/Zipcode | Phone Number | | Organization | | | | + + + + + | [facility] | [address] | [place] [address] | [phone] | + + + + + Basic [...] | | | | | performed at [facility];[address] | | | | | | [facility];[place], [place] | | | | | | [address] | | | | + + + + + + + + | Specimen | + + | Blood | + + + + + + + | Performing | Address | City/State/Zipcode | Phone Number | | Organization | | | | + + + + + | [facility] | [address] | [place] [address] | [phone] | + + + + + ECG [...] MD | | | | | | ([id number]) on 10/31/2019 | | | | | [...] | | + +--------+ +--------+ +---------+--------+ | [facility] | [facility] | [id number] | 06/05/19 | | | Medica | | MEDICARE PPO | HEALTH | | 19-Pre | | | re | | | CARE | | sent | | | | | | MDCR | | | | | | | | PPO | | | | | | + +--------+ +--------+ +---------+--------+ | MEDICARE | MEDICA | [id number] | 12/03/18 | [phone] | | Medica | | | RE | | 99-Pre | 5 | | re | | | PART A | | sent | | | | | | AND B | | | | | | + +--------+ +--------+ +---------+--------+ | [facility] | UNITED | [id number] | 06/05/19 | [phone] | | PPO | | | | [...] [place] | | | 0 (Home) | [address] | + +--------+ +--------+ + + | Serge Gasca | Person | Self | [birth year] | [address] | | [place] | al/Fam | | 1935 | [phone] | [place], [place] | | | odalis | | | 0 (Home) | [address] | + +--------+ +--------+ + + | Serge Gasca | Person | Self | [birth year] | [address] | | [place] | al/Fam | | 1935 | [phone] | [place], [place] | | | odalis | | | 0 (Home) | [address] | + +--------+ +--------+ + + Advance Directives + + + + + | Type | Date Recorded | Patient | Explanation | | | | Napper Runner | | + + + + + | Power of | | | | | Charge Entry | | | | + + + + + | Advance | 11/13/2019 10:06 | | | | Directive | AM | | | + + + + +
--- OUTSIDE RECORDS SUMMARY | ~2019-12-07 | XMS | Encounter Summary ---
Demographics + + + | Address | [address] | | | [place] [address] | + + + | Home Phone [...] | | | | [place] [address] | | + + + + + | Juana Gasca | ECON | [address] | | | | | [place] | | | | | [address] | | + + + + + | Chad Gasca | ECON | Unknown | | + + + + + Care Team Providers + +------+ + | Care Laboratory Miller Name | Role | Phone | + [...] | | | | | [place] [address] | | | | | | [phone] | | | +--------+--------+ + + + [...] [place] | | | | | | [address] | | | | | | | [...]
--- OUTSIDE RECORDS SUMMARY | ~2019-12-07 | XMS | Encounter Summary ---
Demographics + + + | Address | [address] | | | [place] [address] | + + + | Home Phone [...] | | | | [place] [address] | | + + + + + | Juana Gasca | ECON | [address] | | | | | [place] | | | | | [address] | | + + + + + | Chad Gasca | ECON | Unknown | | + + + + + Care Team Providers + +------+ + | Care Counter Hand Name | Role | Phone | [...] | 05/12/2013) | | | | [place] [address] | [address] | | | | | [phone] | | | +--------+ + + + [...] to go to the E R at [facility] for difficulty breathing on 05/12/2013. He received a neb treatmen t, a chest x-ray, an Rx for Prednisone 4 tabs/day for 6 days (tomorrow with be his last day) . He was diagnosed with Active COPD and CHF. He says the Prednisone is helping and he is zuleyka athing easier. Will request films be loaded to [employer]. documented in this encounter Plan of Treatment [...] [place] | | | | | | [address] | | | | | | | [...]
--- OUTSIDE RECORDS SUMMARY | ~2019-12-07 | XMS | Encounter Summary ---
Demographics + + + | Address | [address] | | | [place] [address] | + + + | Home Phone | | + + + | Preferred Language | Unknown | + + + | Marital Status | | + + + | Religion Affiliation | 1013 | + + + [...] | | | | [place] [address] | | + + + + + | Juana Gasca | ECON | [address] | | | | | [place] | | | | | [address] | | + + + + + | Chad Gasca | ECON | Unknown | | + + + + + Care Team Providers + +------+ + | Care Stonework Supervisor Name | Role | Phone | [...] + + | 10/29/ | Office | [facility] | Mulu Weinstein, | Atrial fibrillation, | | 2020 | Visit | CARDIOLOGY [place] | [address] | chronic (HCC) | | | | [address] | [place] | (Primary Dx); | | | | [address] [place] [address] | [address] | Essential | | | | [place] | | hypertension, | | | | [address] | | benign; | | | | [phone] | | Atherosclerosis of | | | | | | caddo coronary | | | | | | artery of caddo | | | | | | heart [...] tablet Take 1,000 mcg by mouth daily. Ummotayqcnp-Duprdppxg-Fwz C-Mn (GLUCOSAMINE 1500 COMPLEX PO) Take 3,000 [...] Hx Pacemaker/ICD: 08/30/2007, Guidant Insignia 1291, SN: [id number]. 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
--- OUTSIDE RECORDS SUMMARY | ~2019-12-07 | XMS | Encounter Summary ---
Demographics + + + | Address | [address] | | | [place] [address] | + + + | Home Phone [...] | | | | [place] [address] | | + + + + + | Juana Gasca | ECON | [address] | | | | | [place] | | | | | [address] | | + + + + + | Chad Gasca | ECON | Unknown | | + + + + + Care Team Providers + +------+ + | Care Bonded Strand Operator Name | Role | Phone | [...] | | | | | [place] [address] | | | | | | [phone] | | | +--------+--------+ + + + [...] | | | | | | [facility] [facility] [place] | | | | | | [address] | | | | | | | [...]
--- OUTSIDE RECORDS SUMMARY | ~2019-12-07 | XMS | Encounter Summary ---
Demographics + + + | Address | [address] | | | [place] [address] | + + + | Home Phone [...] | | | | [place] [address] | | + + + + + | Juana Gasca | ECON | [address] | | | | | [place] | | | | | [address] | | + + + + + | Chad Gasca | ECON | Unknown | | + + + + + Care Team Providers + +------+ + | Care Data Analysis Manager Name | Role | Phone | [...] + + | 04/29/ | Telephone | [facility] | Alicja Lloyd, | Weight Gain | | 2019 | | CARDIOLOGY JULIAN Davies RN | | | | | [address] | | | | | | [place] | | | | | | [address] | | | | | | [phone] | | | +--------+ + + + [...] | | | | | [place] | | | | | | [address] | | | | | | | [...]
--- OUTSIDE RECORDS SUMMARY | ~2019-12-07 | XMS | Encounter Summary ---
Demographics + + + | Address | [address] | | | [place] [address] | + + + | Home Phone [...] | | | | [place] [address] | | + + + + + | Juana Gasca | ECON | [address] | | | | | [place] | | | | | [address] | | + + + + + | Chad Gasca | ECON | Unknown | | + + + + + Care Team Providers + +------+ + | Care Sheriff Sergeant Name | Role | Phone | + +------+ + PCP | Unavailable | + +------+ + Encounter Details +--------+ + + + + | Date | Type | Department | Care Team | Description | +--------+ + + + + | 03/07/ | [facility] | [facility] | Ramo Fortune | Atrial Fibrillation | | 2007 | Encounter | [facility] | MD Jesus [address] | ([facility]) | | | | CLINICAL DECISION | Calvin Pastor | | | | | [address] | [place] [address] | | | | | [place], [place] | [phone] | | | | | [address] | | | | | | [phone] | | | +--------+ + + + [...] [place] | | | | | | [address] | | | | | | | [...]
--- OUTSIDE RECORDS SUMMARY | ~2019-12-07 | XMS | Encounter Summary ---
Demographics + + + | Address | [address] | | | [place] [address] | + + + | Home Phone [...] | | | | [place] [address] | | + + + + + | Juana Gasca | ECON | [address] | | | | | [place] | | | | | [address] | | + + + + + | Chad Gasca | ECON | Unknown | | + + + + + Care Team Providers + +------+ + | Care Size Roller Operator Name | Role | Phone | [...] + + | 11/13/ | Documentati | [facility] | Spenser Potter, | Other (Implant | | 2020 | on | CARDIOLOGY JULIAN | [address] | Record) | | | | [address] | [place], | | | | | [place] | [place] [address] | | | | | [address] | [phone] | | | | | [phone] | | | +--------+ + + + [...] | | | | | [place], [place] | | | | | | [address] | | | | | | | [...]
--- OUTSIDE RECORDS SUMMARY | ~2019-12-07 | XMS | Encounter Summary ---
Demographics + + + | Address | [address] | | | [place] [address] | + + + | Home Phone | | + + + | Preferred Language | Unknown | + + + | Marital Status | | + + + | Shinto Affiliation | 1013 | + + + | Race | Unknown | + + + | Ethnic Group | Unknown | + + + Author + + + | Author | [facility] | | | and [place] | + + + | Organization | [facility] | | | [...] | | | | [place] [address] | | + + + + + | Juana Gasca | ECON | [address] | | | | | [place] | | | | | [address] | | + + + + + | Chad Gasca | ECON | Unknown | | + + + + + Care Team Providers + +------+ + | Care First Cook Name | Role | Phone | + [...] + + | 11/11/ | Telephone | [facility] | Spenser Potter, | Pre-Op | | 2019 | | CENTER INTRA OP | [address] | | | | | [address] | [place], | | | | | [place] | [place] [address] | | | | | [address] | [phone] | | | | | [phone] | | | +--------+ + + + [...] [place] | | | | | | [address] | | | | | | | [...]
--- OUTSIDE RECORDS SUMMARY | ~2019-12-07 | XMS | Encounter Summary ---
Demographics + + + | Address | [address] | | | [place] [address] | + + + | Home Phone [...] | | | | [place] [address] | | + + + + + | Juana Gasca | ECON | [address] | | | | | [place] | | | | | [address] | | + + + + + | Chad Gasca | ECON | Unknown | | + + + + + Care Team Providers + +------+ + | Care Top Cutter Name | Role | Phone | [...] apnea on BiPAP | | | | [place], | | | | | | [place] [address] | | | | | | [phone] | | | +--------+ + + + [...] 05/06/ | Office | Cardiology | Elif Hyltno, | | | 2019 | Visit | | MD Asad [place] | | | | | | [place] | | | | | | [address] | | | | | | | [...]
--- OUTSIDE RECORDS SUMMARY | ~2019-12-07 | XMS | Encounter Summary ---
Demographics + + + | Address | [address] | | | [place] [address] | + + + | Home Phone [...] | | | | [place] [address] | | + + + + + | Juana Gasca | ECON | [address] | | | | | [place] | | | | | [address] | | + + + + + | Chad Gasca | ECON | Unknown | | + + + + + Care Team Providers + +------+ + | Care Financial Systems Director Name | Role | Phone | + +------+ + PCP | Unavailable | + +------+ + Encounter Details +--------+ + + + + | Date | Type | Department | Care Team | Description | +--------+ + + + + | 07/21/ | Hospital | [facility] | Jin Epps MD | | | 2005 - | Encounter | [facility] | [address] | | | | | INTENSIVE CARE UNIT | [place] [address] | | | 07/22/ | | [facility] | [phone] | | | 2005 | | [place], [place] | | | | | | [address] | | | | | | [phone] | | | +--------+ + + + [...] [place] | | | | | | [address] | | | | | | | [...]
--- OUTSIDE RECORDS SUMMARY | ~2019-12-07 | XMS | Encounter Summary ---
Demographics + + + | Address | [address] | | | [place] [address] | + + + | Home Phone [...] | | | | [place] [address] | | + + + + + | Juana Gasca | ECON | [address] | | | | | [place] | | | | | [address] | | + + + + + | Chad Gasca | ECON | Unknown | | + + + + + Care Team Providers + +------+ + | Care Launching Pad Mechanic Name | Role | Phone | [...] + + | 03/28/ | Office | [facility] | Offenstein, | COPD (chronic | | 2013 | Visit | PULMONARY [address] | Florence You MD | obstructive | | | | [place], | | pulmonary disease) | | | | [place] [address] | | (Primary Dx); | | | | [phone] | | Obstructive sleep | | | | | | apnea on BiPAP; | | | | | | 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 Luuchebnlzv-Mmgdkmylh-Nho C-Mn (GLUCOSAMINE 1500 COMPLEX PO) Take 1,500 [...] nodes: Cervical and supraclavicular nodes normal Data: [facility] Data: Dates: 02/25-03/26/14 Home Health Company: In [...] made to ensure accuracy; however, inadvertent computerized mat packer errors may be pre sent. Electronically signed [...] | | | | | [place] | | | | | | [address] | | | | | | | [...]
--- OUTSIDE RECORDS SUMMARY | ~2019-12-07 | XMS | Encounter Summary ---
Demographics + + + | Address | [address] | | | [place] [address] | + + + | Home Phone [...] | | | | [place] [address] | | + + + + + | Juana Gasca | ECON | [address] | | | | | [place] | | | | | [address] | | + + + + + | Chad Gasca | ECON | Unknown | | + + + + + Care Team Providers + +------+ + | Care Weather Strip Mechanic Name | Role | Phone | + +------+ + PCP | Unavailable | + +------+ + Encounter Details +--------+ + + + + | Date | Type | Department | Care Team | Description | +--------+ + + + + | 07/05/ | Hospital | [facility] | Dennyenstein, | | | 2011 | Encounter | MED CTR XRAY [address] | Florence You MD | | | | | [place] | | | | | | [place] [address] | | | | | | [phone] | | | +--------+ + + + [...] | | | | | [place] | | | | | | [address] | | | | | | | [...] Performed At | + + + | [facility] | [facility] | | [address] [facility] | [facility] | | CT CHEST WITHOUT CONTRAST: [...] Transcribed Date/Time: | | | 07/06/2011 10:09 [facility]: <Electronically Signed | | | by Vin Reyes MD> 07/07/11 1834 | | + + + + + | Procedure Note | + + | Pal, Rad Conversion - 07/12/2013 4:40 PM [facility] | | Diagnostic Imaging Department | | [address] , [facility] | | | | | | | [...] | Transcribed Date/Time: 07/06/2011 10:09 | | [facility] Room: PONCE | | <Electronically Signed by Vin Reyes MD> 07/07/11 1701 | + + + +---------+ + + [...]
--- OUTSIDE RECORDS SUMMARY | ~2019-12-07 | XMS | Encounter Summary ---
Demographics + + + | Address | [address] | | | [place] [address] | + + + | Home Phone [...] | | | | [place] [address] | | + + + + + | Juana Gasca | ECON | [address] | | | | | [place] | | | | | [address] | | + + + + + | Chad Gasca | ECON | Unknown | | + + + + + Care Team Providers + +------+ + | Care Coat [place]eller Name | Role | Phone | + [...] | | | | | [place] [address] | | | | | | [phone] | | | +--------+--------+ + + + [...] [place] | | | | | | [address] | | | | | | | [...]
--- OUTSIDE RECORDS SUMMARY | ~2019-12-07 | XMS | Encounter Summary ---
Demographics + + + | Address | [address] | | | [place] [address] | + + + | Home Phone | | + + + | Preferred Language | Unknown | + + + | Marital Status | | + + + | Jehovah'S Witness Affiliation | 1013 | + + + | Race | Unknown | + + + | Ethnic Group | Unknown | + + + Author + + + | Author | [facility] | | | and [place] | + + + | Organization | [facility] | | [...] | | | | [place] [address] | | + + + + + | Juana Gasca | ECON | [address] | | | | | [place] | | | | | [address] | | + + + + + | Chad Gasca | ECON | Unknown | | + + + + + Care Team Providers + +------+ + | Care Reinforcing Iron Worker Helper Name | Role | Phone | [...] | | | | | [place] [address] | | | | | | [phone] | | | +--------+--------+ + + + [...] 8:18 AM PDTerrorElectronically si gned by Cassidy Xaveir RN at 02/04/2014 8:18 AM PDTdocumented in [...] | | | | | [place] | | | | | | [address] | | | | | | | [...]
--- OUTSIDE RECORDS SUMMARY | ~2019-12-07 | XMS | Encounter Summary ---
Demographics + + + | Address | [address] | | | [place] [address] | + + + | Home Phone [...] | | | | [place] [address] | | + + + + + | Juana Gasca | ECON | [address] | | | | | [place] | | | | | [address] | | + + + + + | Chad Gasca | ECON | Unknown | | + + + + + Care Team Providers + +------+ + | Care Machine Stripper Name | Role | Phone | + [...] | | | | | [place] [address] | | | | | | [phone] | | | +--------+--------+ + + + [...] [place] | | | | | | [address] | | | | | | | [...]
--- OUTSIDE RECORDS SUMMARY | ~2019-12-07 | XMS | Encounter Summary ---
Demographics + + + | Address | [address] | | | [place] [address] | + + + | Home Phone [...] | | | | [place] [address] | | + + + + + | Juana Gasca | ECON | [address] | | | | | [place] | | | | | [address] | | + + + + + | Chad Gasca | ECON | Unknown | | + + + + + Care Team Providers + +------+ + | Care Luncheonette Operator Name | Role | Phone | [...] | | | | | [place] [address] | | | | | | [phone] | | | +--------+--------+ + + + [...] | | | | | [place] | | | | | | [address] | | | | | | | [...]
--- OUTSIDE RECORDS SUMMARY | ~2019-12-07 | XMS | Encounter Summary ---
Demographics + + + | Address | [address] | | | [place] [address] | + + + | Home Phone [...] | | | | [place] [address] | | + + + + + | Juana Gasca | ECON | [address] | | | | | [place] | | | | | [address] | | + + + + + | Chad Gasca | ECON | Unknown | | + + + + + Care Team Providers + +------+ + | Care Tobacco Packing Machine Operator Name | Role | Phone [...] 2014 | | PULMONARY [address] | Florecne You MD | | | | | [place], | | | | | | [place] [address] | | | | | | [phone] | | | +--------+ + + + [...] 23.3 minutes. Order sent to [facility]. elephone Enco unthank - Florence La [...] Prevnar 13 pneumonia shot. They went to [facility] and the pharmacist said that thy [...] | | | | | [place] | | | | | | [address] | | | | | | | [...]
--- OUTSIDE RECORDS SUMMARY | ~2019-12-07 | XMS | Encounter Summary ---
Demographics + + + | Address | [address] | | | [place] [address] | + + + | Home Phone [...] | | | | [place] [address] | | + + + + + | Juana Gasca | ECON | [address] | | | | | [place] | | | | | [address] | | + + + + + | Chad Gasca | ECON | Unknown | | + + + + + Care Team Providers + +------+ + | Care Professional System Administrator Name | Role | Phone | [...] [address] | | | | | [place] [address] | | [address] | | | | | IMPLTBL DFB | | [place], [place] | | | | | PLSE GEN | | [address] Phone: | | | | | W/REPL PLSE | | [phone] | | | | | GEN 1 LEAD | | Fax: | | | | | [place] | | [phone] | | | | | INSJ/RPLCMT | | | | | | | PERM DFB | | | | | | | W/TRNSVNS | | | | | | | LDS 1/DUAL | | | | | | | CHMBR DC | | | | | | | [...] + + | 11/12/ | Surgery | [facility] | Spenser Schultz, | CV EP PM GEN CHANGE | | 2019 | | [facility] | [address] | | | | | LAB [address] [facility] | [place], | | | | | [place], [place] | [place] [address] | | | | | [address] | [phone] | | | | | [phone] | | | +--------+---------+ + + + [...] incision for one week when you shower [phone] LatamLeap cell to send picture of incision in one week GENERATOR CHANGE Discharge Instructions FOLLOW-UP APPOINTMENTS First, be sure to come for all of your post-operative check-ups. The first visit is usually to check that your incision is healing properly. You will be seen by the Nurse or Nurse Pra ctitioner in approximately 7-10 days after pacemaker implantation. Your appointments will be at the [facility] in [facility] from the [facility]. The address is [address] [place] [address]. The office is located on the 3rd floor. This appointment should already be scheduled for you, but if not, please call [phone] to schedule your appointment. [facility] [...] might be different fr om the original. [facility]: ELECTROPHYSIOLOGY INTERVAL H & P [...] tablet Take 1,000 mcg by mouth daily. Ccrwxmhbgdk-Kfydvmhys-Chs C-Mn (GLUCOSAMINE 1500 COMPLEX PO) Take 3,000 [...] Hx Pacemaker/ICD: 08/30/2007, Guidant Insignia 1291, SN: [id number]. Last interrogation 10/30/2019 MARY, 96% ASSESSMENT: Patient [...] myself today and was showed to be MRAY will need to schedule f or generator [...] Spenser Schultz MD - 11/13/2019 1:46 PM [facility] OPERATIVE REPORT SPENSER SCHULTZ MD Patient: DENISE GASCA Admitting: SPENSER SCHULTZ MR #: [id number] LOC: PT TYPE: Adm Date: 11/13/2019 : 1935 DATE OF PROCEDURE: 11/13/2019 PROCEDURE: A dual-chamber pacemaker generator change out to a single chamber permanent pac emaker. HISTORY: This 84-year-old gentleman was referred for a pacemaker generator change out [facility] his current device is at elective [...] a [employer] model 1882TC, se rial #[id number]. The ventricular lead is a Guidant, model 4088, serial #[id number]. The current pacemaker is a Guidant, model 1291, serial #[id number]. PROCEDURE NOTE: The patient was brought to [...] The lead was attached to a new [employer] [employer] Accolade MRI compatible pacemaker (model L310, serial #[id number]). 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 Current pacemaker is at end-of-life Post-operative Diagnosis: Same Procedure(s): Permanent pacemaker generator change out. The dual-chamber pacemaker was melida ngraded to a single-chamber device. The atrial lead was capped off. [employer] mackenzie forrester Surgeon: Spenser Schultz MD Nursing Department Chairperson(s): Sam Anesthesia: Monitor Anesthesia care Estimated Blood [...] [place] | | | | | | [address] | | | | | | | [...] | | | | | performed at [facility] | | | | | | [address];[place], [place] | | | | | | [address] | | | | + + + + + + + + | Specimen | + + | Blood | + + + + + + + | Performing | Address | City/State/Zipcode | Phone Number | | Organization | | | | + + + + + | [facility] | [address] | [place] [address] | [phone] | + + + + + Basic [...] 48 (L)Comment: GFR <60: | >60 | [facility] | | | GFR | CHRONIC KIDNEY [...] | | | | | | MDRD IDUT traceable | | | | | | equation.Testing | | | | | | performed at [facility];[address] | | | | | | [facility];[place], [place] | | | | | | [address] | | | | + + + + + + + + | Specimen | + + | Blood | + + + + + + + | Performing | Address | City/State/Zipcode | Phone Number | | Organization | | | | + + + + + | [facility] | [address] | [place] [address] | [phone] | + + + + + documented [...]
--- OUTSIDE RECORDS SUMMARY | ~2019-12-07 | XMS | Encounter Summary ---
Demographics + + + | Address | [address] | | | [place] [address] | + + + | Home Phone [...] | | | | [place] [address] | | + + + + + | Juana Gasca | ECON | [address] | | | | | [place] | | | | | [address] | | + + + + + | Chad Gasca | ECON | Unknown | | + + + + + Care Team Providers + +------+ + | Care Charging Operator Name | Role | Phone | [...] | | | | | | [place] [address] | | | | | | [phone] | | | +--------+ + + + [...] | | | | | [place], [place] | | | | | | [address] | | | | | | | [...]
--- OUTSIDE RECORDS SUMMARY | ~2019-12-07 | XMS | Encounter Summary ---
Demographics + + + | Address | [address] | | | [place] [address] | + + + | Home Phone [...] | | | | [place] [address] | | + + + + + | Juana Gasca | ECON | [address] | | | | | [place] | | | | | [address] | | + + + + + | Chad Gasca | ECON | Unknown | | + + + + + Care Team Providers + +------+ + | Care Pier Worker Name | Role | Phone | + +------+ + | Timo Lorenzana | PCP | | | MD | | | + +------+ + Encounter Details +--------+ + + + + | Date | Type | Department | Care Team | Description | +--------+ + + + + | 12/27/ | Orders Only | [facility] | Provider, | | | 2018 | | SYSTEM GENERIC OP | MD [address] | | | | | [address] | [place]sie [place] | | | | | [address] [place], [place] | [place] [address] | | | | | [address] | | | | | | [phone] | | | +--------+ + + + [...] 2019 | Visit | | MD Asad IFELDS | | | | | | [place] | | | | | | [address] | | | | | | | [...]
--- OUTSIDE RECORDS SUMMARY | ~2019-12-07 | XMS | Encounter Summary ---
Demographics + + + | Address | [address] | | | [place] [address] | + + + | Home Phone [...] | | | | [place] [address] | | + + + + + | Juana Gasca | ECON | [address] | | | | | [place] | | | | | [address] | | + + + + + | Chad Gasca | ECON | Unknown | | + + + + + Care Team Providers + +------+ + | Care Retail Security Professional Name | Role | Phone | + +------+ + | Timo Lorenzana | PCP | | | MD | | | + +------+ + Encounter Details +--------+ + + + + | Date | Type | Department | Care Team | Description | +--------+ + + + + | 04/03/ | Orders Only | [facility] | Conversion | | | 2013 | | CARDIOLOGY [place] | Transaction, | | | | | [address] | Provider Unknown | | | | | [place], [place] | | | | | | [address] | | | | | | [phone] | | | +--------+ + + + [...] [place] | | | | | | [address] | | | | | | | [...]
--- OUTSIDE RECORDS SUMMARY | ~2019-12-07 | XMS | Encounter Summary ---
Demographics + + + | Address | [address] | | | [place] [address] | + + + | Home Phone [...] | | | | [place] [address] | | + + + + + | Juana Gasca | ECON | [address] | | | | | [place] | | | | | [address] | | + + + + + | Chad Gasca | ECON | Unknown | | + + + + + Care Team Providers + +------+ + | Care Supervisor Of Guidance And Testing Name | Role | Phone | + [...] + + | 06/25/ | Office | [facility] [place] | [place], | COPD (chronic | | 2014 | Visit | PULMONARY [address] | Florence You MD | obstructive | | | | [place], | | pulmonary disease) | | | | [place] [address] | | (Primary Dx); MARY | | | | [phone] | | (obstructive sleep | | | [...] test through [facility]. Call the [employer] before you pick it up to make sure they have a box available. You will hot die picker a box at the [employer]. Do the t est on BiPAP only. [...] He notes when he we nt to [place], he did not take his oxygen with [...] inhaler 1 puff inhaled tw ice daily Csxqhinzsgn-Onowmhsws-Qds C-Mn (GLUCOSAMINE 1500 COMPLEX PO) Take 1,500 [...] made to ensure accuracy; however, inadvertent computerized fuel cell test engineer errors may be pre sent. documented [...] [place] | | | | | | [address] | | | | | | | [...]
--- OUTSIDE RECORDS SUMMARY | ~2019-12-07 | XMS | Encounter Summary ---
Demographics + + + | Address | [address] | | | [place] [address] | + + + | Home Phone [...] | | | | [place] [address] | | + + + + + | Juana Gasca | ECON | [address] | | | | | [place] | | | | | [address] | | + + + + + | Chad Gasca | ECON | Unknown | | + + + + + Care Team Providers + +------+ + | Care Airport Refueling Handler Name | Role | Phone | + +------+ + | Timo Lorenzana | PCP | | | MD | | | + +------+ + Encounter Details +--------+ + + + + | Date | Type | Department | Care Team | Description | +--------+ + + + + | 06/25/ | Orders Only | [facility] | [place], | MARY (obstructive | | 2014 | | MED CTR PULMONARY | Florence You MD | sleep apnea) | | | | FUNCTION [address] | | | | | | [place], | | | | | | [place] [address] | | | | | | [phone] | | | +--------+ + + + [...] [place] | | | | | | [address] | | | | | | | [...]
--- OUTSIDE RECORDS SUMMARY | ~2019-12-07 | XMS | Encounter Summary ---
Demographics + + + | Address | [address] | | | [place] [address] | + + + | Home Phone [...] | | | | [place] [address] | | + + + + + | Juana Gasca | ECON | [address] | | | | | [place] | | | | | [address] | | + + + + + | Chad Gasca | ECON | Unknown | | + + + + + Care Team Providers + +------+ + | Care Maintenance Operator Name | Role | Phone | [...] | | | | | [place] [address] | | | | | | [phone] | | | +--------+--------+ + + + [...] [place] | | | | | | [address] | | | | | | | [...]
--- OUTSIDE RECORDS SUMMARY | ~2019-12-07 | XMS | Encounter Summary ---
Demographics + + + | Address | [address] | | | [place] [address] | + + + | Home Phone [...] | | | | [place] [address] | | + + + + + | Juana Gasca | ECON | [address] | | | | | [place] | | | | | [address] | | + + + + + | Chad Gasca | ECON | Unknown | | + + + + + Care Team Providers + +------+ + | Care Global Chief Experience Officer Name | Role | Phone | [...] + + | 11/17/ | Telephone | [facility] | Coty Bruner, | Post-op Question | | 2020 | | CARDIOLOGY [place] | | | | | [address] | | | | | | [place] | | | | | | [address] | | | | | | [phone] | | | +--------+ + + + [...] would like a call back please at [phone] onically signed by Coty Bruner CMA at [...] | | | | | [place], [place] | | | | | | [address] | | | | | | | [...]
--- OUTSIDE RECORDS SUMMARY | ~2019-12-07 | XMS | Encounter Summary ---
Demographics + + + | Address | [address] | | | [place] [address] | + + + | Home Phone [...] | | | | [place] [address] | | + + + + + | Juana Gasca | ECON | [address] | | | | | [place] | | | | | [address] | | + + + + + | Chad Gasca | ECON | Unknown | | + + + + + Care Team Providers + +------+ + | Care Bushing Press Operator Name | Role | Phone | [...] + + | 04/26/ | Telephone | [facility] | Alicja Lloyd, | Weight Gain | | 2019 | | CARDIOLOGY JULIAN Davies RN | | | | | [address] | | | | | | [place] | | | | | | [address] | | | | | | [phone] | | | +--------+ + + + [...] PSTReceived call from Kassidy ku RN at [facility]. She stated that patient has had a [...] [place] | | | | | | [address] | | | | | | | [...]
--- OUTSIDE RECORDS SUMMARY | ~2019-12-07 | XMS | Encounter Summary ---
Demographics + + + | Address | [address] | | | [place] [address] | + + + | Home Phone [...] | | | | [place] [address] | | + + + + + | Juana Gasca | ECON | [address] | | | | | [place] | | | | | [address] | | + + + + + | Chad Gasca | ECON | Unknown | | + + + + + Care Team Providers + +------+ + | Care Swimmer Name | Role | Phone | + [...] + + | 03/29/ | Office | [facility] | [place], | COPD (chronic | | 2012 | Visit | PULMONARY [address] | Florence You MD | obstructive | | | | [place], | | pulmonary disease) | | | | [place] [address] | | ([facility]) (Primary Dx); | | | | [phone] | | Obstructive sleep | | | [...] [facility] [address] [place], [address] HPI Serge Gasca is a 78 y.o. 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 They return today for ro utine follow up. Currently they are using their rescue inhaler, albuterol, 1 times a day, an d usually this is at night. Currently they are able to walk several blocks at their own pace on level ground. He is not exercising regularly. He notes his seed tester has been going to the health club, [...] Take 40 mg by mouth every morning. Wnhnxrvtazd-Iozzvzyyn-Dyx C-Mn (GLUCOSAMINE 1500 COMPLEX PO) Active Take [...] made to ensure accuracy; however, inadvertent computerized patrol inspector errors may be pre sent. documented [...] | | | | | | [place] [facility] [place] | | | | | | [address] | | | | | | | [...]
--- OUTSIDE RECORDS SUMMARY | ~2019-12-07 | XMS | Encounter Summary ---
Demographics + + + | Address | [address] | | | [place] [address] | + + + | Home Phone [...] | | | | [place] [address] | | + + + + + | Juana Gasca | ECON | [address] | | | | | [place] | | | | | [address] | | + + + + + | Chad Gasca | ECON | Unknown | | + + + + + Care Team Providers + +------+ + | Care Health Inspector Food Name | Role | Phone | + +------+ + | Med Lorenzana | PCP | | | MD | | | + +------+ + Encounter Details +--------+ + + + + | Date | Type | Department | Care Team | Description | +--------+ + + + + | 03/07/ | Hospital | [facility] | Erika Simental | Rheumatic mitral | | 2013 - | Encounter | [facility] | MD [address] | valve disease; | | | | CARE FLOOR [address] | Calvin Pastor | Atrial fibrillation, | | 03/14/ | | [address] | [place] [address] | chronic (HCC) | | 2013 | | [place], [place] | [phone] | | | | | [address] | | | | | | [phone] | | | +--------+ + + + [...] Thoracic, and Vascular Surgery Author Type: Physician Inspector Eyeglass - Certified Filed: 03/17/14 1441 Date of Service: 03/17/141427 Status: Attested Sociology Professor: Andrei Lindsay PA-C (Physician Inspector Eyeglass - Certified) Cosigner: Timothy Whitaker MD at 03/18/14757 Attestation signed by Timothy Whitaker MD at 03/18/14757 I have examined Denise Gasca, reviewed the notes, assessments, and/or procedures perfor med by Andrei Lindsay PA-C, I concur with his documentation of Denise Gasca. 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 You may get the following medications [...] Date of Service: 03/14/14 1400 Status: Signed Sociology Professor: aNtaliia Baldwin RN (Registered Nurse) Reviewed d/c summary [...] Author: ARACELY Andrea Service: (none) Author Type: Accounts Payables Clerk Filed: 03/14/146 Date of Service: 03/14/141302 Status: Signed Sociology Professor: ARACELY Andrea (Accounts Payables Clerk) 03/14/141302 Anticipated Discharge Plan Post Acute Care Needs (Will f/u at Coumadin clinic at [facility]) Anticipated Disposition Facility Type Home Disposition: [...] 03/14/14919 Date of Service: 03/14/14914 Status: Signed Sociology Professor: ZAYRA Acevedo (Occupational Therapist) 03/14/14914 Plan Requires OT Follow Up Unavailable (Pt with nursing.) OT will re-attempt as census permits. onver gurpreet Transaction, Provider Unknown - 03/14/2014 8:44 AM PDT Nurse Progress Note by Larissa Alvarez RN at 03/14/14843 Author: Larissa Alvarez RN Service: (none) Author Type: Registered Nurse Filed: 03/14/14843 Date of Service: 03/14/14843 Status: Signed Sociology Professor: Larissa Alvarez, RN (Registered Nurse) Re-visited pt today regarding Coumadin Education. Good retention of information. Haritha Mackenzie PT - 03/14/2014 8:25 AM PDTFormatting of this note might be different from th e original. Therapy Progress Note by Haritha Jean, PT at 03/14/14824 Author: Haritha Jean PT Service: (none) Author Type: Physical Therapist Filed: 03/14/14 1053 Date of Service: 03/14/14824 Status: Signed Sociology Professor: Haritha Jean PT (Physical Therapist) 03/14/14824 PT Last Visit PT Received On 03/14/14 Reason for Treatment Cardiac Requires PT Follow Up Yes Follow up PT Only? No Assistance Required 1 person Mathematics Lecturer Needed No Precautions Cardiac Precautions Sternal Other [...] instruction;Patient appears safe Maximal Ambulation Distance (feet) [id number] Total Ambulation Distance (feet) 200ft Distance limited [...] 03/14/14735 Date of Service: 03/14/14732 Status: Signed Sociology Professor: Timothy Whitaker MD (Physician) [facility] Service: Cardio Thoracic Surgery Progress Note Pt: Denise Wilmer Elo AGE/SEX: 78 y.o. male ROOM: [facility]44[facility] : 1935 PCP: MED LORENZANA [...] chloride 0.9 % 10 mL Intravenous Q12H [facility] sulfamethoxazole-trimethoprim 1 tablet Oral Daily tiotropium 18 [...] Note by Jesus Latham PT at 03/13/14 2122 Author: Jesus Latham, PT Service: (none) Author Type: Physical Therapist Filed: 03/13/14 9724 Date of Service: 03/13/14 4705 Status: Signed Sociology Professor: Jesus Latham PT (Physical Therapist) 03/13/14 1944 PT Last Visit PT Received On 03/13/14 [...] 1548 Date of Service: 03/13/141545 Status: Signed Sociology Professor: Rozina Davis RN (Registered Nurse) After speaking [...] Date of Service: 03/13/14 1253 Status: Signed Sociology Professor: ZAYRA Acosta (Occupational Therapist) 03/13/14 1253 Precautions [...] for larger walker) Home Equipment Walker front wheeled;Tube Fitter Additional Comments Pt stated hey will leave in catheter for 2 weeks. 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 Making bed;Washing dishes;Taking out trash Employment Retired [...] Shower chair without back;Elastic shoe laces;Sponge long handled;[facility] Education Completed: Education Topic: AE and adaptive [...] 03/13/2014 10:23 AM PDT Progress Notes by Eevlina Plata RN at 03/13/14 1023 Author: Evelina Plata RN Service: (none) Author Type: Registered Nurse Filed: 03/13/14 1025 Date of Service: 03/13/14 1023 Status: Signed Sociology Professor: Evelina Plata RN (Registered Nurse) Patient transferred [...] 03/13/141126 Date of Service: 03/13/14909 Status: Signed Sociology Professor: Med Berger PT (Physical Therapist) 03/13/14909 PT [...] Thoracic, and Vascular Surgery Author Type: Physician Inspector Eyeglass - Certified Filed: 03/13/14 4104 Date of Service: 03/13/14750 Status: Attested Sociology Professor: Andrei Lindsay PA-C (Physician Inspector Eyeglass - Certified) Cosigner: Timothy Whitaker MD at [...] chloride 0.9 % 10 mL Intravenous Q12H [facility] sulfamethoxazole-trimethoprim 1 tablet Oral Daily tiotropium 18 [...] 03/13/14517 Date of Service: 03/13/14517 Status: Signed Sociology Professor: Newton Mai RPH (Pharmacist) Note ccl 72ml/min meds reviewed pharmacy will follow [facility] 0518 onver gurpreet Transaction, Provider Unknown - 03/12/2014 2:10 PM PDT Therapy Progress Note by Med Berger PT at 03/12/14 1410 Author: Med Berger PT Service: (none) Author Type: Physical Therapist Filed: 03/12/14 1441 Date of Service: 03/12/14 1410 Status: Signed Sociology Professor: Med Berger PT (Physical Therapist) 03/12/14 1410 [...] PT had pt sit in wheelchair and WASHER CARCASS whe eled pt back to his room. [...] Larissa Alvarez RN at 03/12/14 1313 Author: Kenilworth Langevin, RN Service: (none) Author Type: Registered Nurse Filed: 03/12/14 1314 Date of Service: 03/12/14 1313 Status: Signed Sociology Professor: Larissa Alvarez RN (Registered Nurse) Visited patient for coumadin education. They have been on coumadin prior to this hospitaliz ation and pcp in [place] manages their dosing. Informed of today's inr. They have no quest ions regarding coumadin at this time. Refused Coumadin Education booklet. onver gurpreet Transaction, Provider Unknown - 03/12/2014 10:08 AM PDT Case Management by ARACELY Espinal at 03/12/14 1008 Author: ARACELY Espinal Service: (none) Author Type: Accounts Payables Clerk Filed: 03/12/14 1010 Date of Service: 03/12/14 1008 Status: Addendum Sociology Professor: ARACELY Espinal (Accounts Payables Clerk) Related Notes: Original Note by ARACELY Espinal (Accounts Payables Clerk) filed at 03/12/14 1009 03/12/14 1005 Discharge [...] 03/12/14899 Date of Service: 03/12/14829 Status: Signed Sociology Professor: Med Berger PT (Physical Therapist) 03/12/14829 PT [...] returned demo nstration according to instruction given. Qrb-[id number] was the most difficult for him. Pt [...] Thoracic, and Vascular Surgery Author Type: Physician Inspector Eyeglass - Certified Filed: 03/12/14 1548 Date of Service: 03/12/1451 Status: Attested Addendum Sociology Professor: Andrei Lindsay PA-C (Physician Inspector Eyeglass - Certified) Related Notes: Original Note by Andrei Lindsay PA-C (Physician Inspector Eyeglass - Certified) file d at 03/12/14 1536 [...] 1550 Date of Service: 03/11/141439 Status: Signed Sociology Professor: Sam Lemon PT (Physical Therapist) 03/11/14 1440 [...] Recommended (anticipate none) Prior Function Level of [place] Independent with functional mobility;Independent with ADLs;Independe nt [...] Patient's ability Pattern Decreased brooks;WFL Assistive Device (CORE ANALYST on w/c) Balance Balance (Pt. is steady [...] Thoracic, and Vascular Surgery Author Type: Physician Inspector Eyeglass - Certified Filed: 03/11/14 1323 Date of Service: 03/11/14909 Status: Attested Sociology Professor: Andrei Lindsay PA-C (Physician Inspector Eyeglass - Certified) Cosigner: Timothy Whitaker MD at [...] Author: Vin Amador Service: (none) Author Type: Machine Welt Butter Filed: 03/10/142019 Date of Service: 03/10/142013 Status: Signed Sociology Professor: Vin Amador () Met with pt's Zamzam [...] for Zamzam. Family voiced repeated thx for mail messenger's availability and support throughout th is long day. CRISTIAN Marrero onver gurpreet Transaction, Provider Unknown - 03/10/2014 8:13 PM PDT Progress Notes by Vin Amador at 03/10/142012 Author: Vin Amador Service: (none) Author Type: Machine Welt Butter Filed: 03/10/142012 Date of Service: 03/10/142012 Status: Signed Sociology Professor: Vin Amador () Delivered on-pump report to Zamzam and gricelda per protocols. CRISTIAN Marrero onver gurpreet Transaction, Provider Unknown - 03/10/2014 8:09 PM PDT Progress Notes by Vin Amador at 03/10/142008 Author: Vin Amador Service: (none) Author Type: Machine Welt Butter Filed: 03/10/142010 Date of Service: 03/10/142008 Status: Signed Sociology Professor: Vin Amador () Received p/c from [facility], [...] 03/10/142007 Date of Service: 03/10/142004 Status: Signed Sociology Professor: Vin Stauffer) Per open heart pt protocols, I met with pt's family to assess ongoing needs and orient [facility] service's support during surgery. Zamzam, sons Andrei and Chad, and a broth er present for orientation. Family are active in their [place] community and are well supporte d by their leadership program intern/friend today. I provided flow card to family and will update them per prot ocols throughout the afternoon. CRISTIAN Marrero onver gurpreet Transaction, Provider Unknown - 03/09/2014 10:45 AM PDT Nurse Progress Note by Rupal Canela RN at 03/09/14 1045 Author: Rupal Canela RN Service: (none) Author Type: Registered Nurse Filed: 03/09/14 1053 Date of Service: 03/09/14 1045 Status: Signed Sociology Professor: Rupal Canela RN (Registered Nurse) Pt return from mini lab operator via stretcher, alert and oriented x 4. Denies any Pain, right groi n with soft, with safeguard intact, scant amount old drainage on dressing. Right pedal puls e 2+, VSS, IVF infusing. onver gurpreet Transaction, Provider Unknown - 03/08/2014 2:58 PM PDT Case Management by ARACELY Walker at 03/08/14 5108 Author: ARACELY Walker Service: (none) Author Type: Accounts Payables Clerk Filed: 03/08/14 1502 Date of Service: 03/08/14 1458 Status: Addendum Sociology Professor: ARACELY Walker (Accounts Payables Clerk) Related Notes: Original Note by ARACELY Walker (Accounts Payables Clerk) filed at 03/08/14 1501 03/08/14 1400 Discharge [...] Plan Yes Anticipated Disposition Facility Type Home CLINICAL RESEARCH ANALYST met with Pt and discussed discharge planning, planning to go home when medically ready. Pt is a 78 y.o. male here with Aortic Valve Replacement, having CHF, prog ressive Aortic Stenosis. Pt states he drives, is active and independent with all ADLs and IADLs, states outpatient o ncology at [facility] has a regimented program which follows his Coumad in levels since 2005. Patient's PCP is: MED Roe Patient's insurance: Medicare / [facility] Coverage concerns: None Medication coverage/concerns: None Community resources utilized / needed: None Assistance in transportation: Pt family Identification of any specific education / training: Pending clinical course, unknown Barriers to Discharge / Alternative housing needed: Pending clinical course, unknown Anticipated DCP: Home - pending clinical course. CACHORRO REID, Train Dispatcher [phone] cell hen, Erika Lee MD - 03/08/2014 2:36 PM PDTFormatting of this note might be different fro m the original. Progress Notes by Erika Simental DO at 03/08/14 1436 Author: Erika Simental DO Service: Cardiology Author Type: Physician Filed: 03/08/14 1658 Date of Service: 03/08/141435 Status: Signed Sociology Professor: Erika Simental DO (Physician) [facility] Service: Cardiology Progress Note Hospital Day: LOS: [...] units/mL in Dextrose 5% 1,800 Units/hr (03/08/14 7078) PRN Medications acetaminophen, acetaminophen, albuterol, heparin (porcine), [...] 3: Pacemaker/ICD: yes, Guidant Insignia 1291, SN: [id number] Code Status: Full Code ERIKA SIMENTAL DO 03/08/2014 onversio n Transaction, Provider Unknown - 03/07/2014 5:35 PM PDTFormatting of this note might be di fferent from the original. Progress Notes by Jessica Lieberman RPH at 03/07/141734 Author: Jessica Lieberman RPH Service: (none) Author Type: Pharmacist Filed: 03/07/141734 Date of Service: 03/07/141734 Status: Signed Sociology Professor: Jessica Lieberman RPH (Pharmacist) Renal Dosing Monitoring: [...] 03/07/142018 Date of Service: 03/07/141957 Status: Signed Sociology Professor: Erika Simental DO (Physician) [facility] Service: Cardiology Initial History and Physical Denise [...] mg by mouth 2 (two) times daily. Ldaoyeifghm-Bpakqadjx-Nxq C-Mn (GLUCOSAMINE 1500 COMPLEX PO) Take 4,500 [...] 2004 Pacemaker/ICD: yes, Guidant Insignia 1291, SN: [id number] Last Cath, 07/21/2005: L. main [place], LAD [...] Date of Service: 03/09/14 1032 Status: Signed Sociology Professor: Timothy Whitaker MD (Physician) [facility] Service: Cardiothoracic Surgery Initial Consult Note Date [...] mg by mouth 2 (two) times daily. Ubkspecpxoy-Pypuckwwn-Yyx C-Mn (GLUCOSAMINE 1500 COMPLEX PO) Take 4,500 [...] 010 Date of Service: 03/11/1458 Status: Signed Sociology Professor: Ruth Aleman RN (Registered Nurse) Daily care [...] signed by Timothy Whitaker MD at 03/12/14 6675 Author: Timothy Whitaker MD Service: (none) Author Type: Physician Filed: 03/12/14 3483 Date of Service: 03/10/142025 Status: Signed Sociology Professor: Timothy Whitaker MD (Physician) DENISE GASCA Date of : 1935 PREOPERATIVE DIAGNOSIS Aortic stenosis. POSTOPERATIVE DIAGNOSIS Aortic stenosis. PROCEDURE 1. Redo sternotomy. 2. Aortic valve replacement (23 On-X valve). SURGEON Timothy Whitaker MD [employer] [place] ANESTHESIOLOGIST Italo Hawkins MD ANESTHESIA [...] After induction of general endotracheal anesthesi a, Edroy-Christiana catheter, Velazquez catheter, radial artery line, and [...] 1 active ventricular wire were placed. A #24-Burkinan chest tube was placed in the mediastinum [...] unit intubated and in stable condition. P/ P/gf/[id number] TIMOTHY WHITAKER MD p Note - Timothy Whitaker MD - 03/10/2014 8:21 PM PDTFormatting of this note might be different fro m the original. Brief Op Note by Timothy Whitaker MD at 03/10/142020 Author: Timothy Whitaker MD Service: (none) Author Type: Physician Filed: 03/10/142021 Date of Service: 03/10/142020 Status: Signed Sociology Professor: Timothy Whitaker MD (Physician) [facility] Service: Cardiothoracic Surgery Brief Op Note Pre-operative Diagnosis: Aortic Stenosis Post-operative Diagnosis: Same Procedure(s): Redo Sternotomy AVR (23 On-X) Surgeon: TIMOTHY WHITAKER MD Inspector Eyeglass(s): Johanny Desai RN FA Anesthesia: General endotrachial [...] Physician Filed: 03/14/141599 Date of Service: 03/10/14 2221 Status: Signed Sociology Professor: Terell Beltran MD (Physician) DENISE GASCA Date [...] withdrew the cysto scope and converted a 16-Burkinan Velazquez catheter into Councill tip and was [...] Dr. Whitaker for further surgical management. P/ P/gf/[id number] TERELL BELTRAN MD lan of Care - Conver gurpreet Transaction, Provider Unknown - 03/07/2014 11:06 PM PDT Plan of Care by Denise Quintanilla RN at 03/07/142305 Author: Denise Quintanilla RN Service: (none) Author Type: Registered Nurse Filed: 03/07/142305 Date of Service: 03/07/142305 Status: Signed Sociology Professor: Denise Quintanilla RN (Registered Nurse) Problem: Pain [...] | | | | | [address] | | | | | | [address] | | | | | | | [...] | | | Fingerstick | performed at [facility];[address] | | LAB | | | | [address];[place], [place] | | | | | | [address] | | | | + + + [...] | | | Fingerstick | performed at [facility];[address] | | LAB | | | | [address];[place], [place] | | | | | | [address] | | | | + + + [...] EXTERNAL | | | | performed at [facility], [address] | | LAB | | | | [address], | | | | | | [place] [address] | | | | + + + + + + | Red Blood | 2.66 (L)Comment: Testing | 4.20 - 5.70 | EXTERNAL | | | Cells | performed at [facility], [address] | M/uL | LAB | | | Counted | [address], | | | | | | [place] [address] | | | | + + + + + + | Hemoglobin | 8.8 (L)Comment: Testing | 13.2 - 17.0 | EXTERNAL | | | | performed at [facility], [address] | g/dL | LAB | | | | [address], | | | | | | [place] [address] | | | | + + + + + + | Hematocrit, | 26.3 (L)Comment: Testing | 39.0 - 50.0 % | EXTERNAL | | | POC | performed at [facility], [address] | | LAB | | | | [address], | | | | | | [place] [address] | | | | + + + + + + | MCV | 98.9Comment: Testing | 80.0 - 100.0 fl | EXTERNAL | | | | performed at [facility], [address] | | LAB | | | | [address], | | | | | | [place] [address] | | | | + + + + + + | MCH | 33.2Comment: Testing | 27.0 - 34.0 pg | EXTERNAL | | | | performed at [facility], [address] | | LAB | | | | [address], | | | | | | [place] [address] | | | | + + + + + + | MCHC | 33.6Comment: Testing | 32.0 - 35.5 | EXTERNAL | | | | performed at [facility], [address] | g/dL | LAB | | | | [address], | | | | | | [place] [address] | | | | + + + + + + | RDW-CV | 57.8 (H)Comment: Testing | 37 - 53 fl | EXTERNAL | | | | performed at [facility], [address] | | LAB | | | | [address], | | | | | | [place] [address] | | | | + + + + + + | Platelet | 126 (L)Comment: Testing | 150 - 400 K/uL | EXTERNAL | | | Count | performed at [facility], [address] | | LAB | | | Plasma | [address], | | | | | | [place] [address] | | | | + + + + + + | MPV | 9.3Comment: Testing | fl | EXTERNAL | | | | performed at [facility], [address] | | LAB | | | | [address], | | | | | | [place] [address] | | | | + + + [...] performed at [facility];[address] | | | | | | [facility];[place], [place] | | | | | | [address] | | | | + + + [...] EXTERNAL | | | | performed at [facility], [address] | | LAB | | | | [address], | | | | | | [place] [address] | | | | + + + [...] | | | | [place] [address] | | | | + + + + + + | K | 5.1 (H)Comment: Testing | 3.5 - 4.9 | EXTERNAL | | | | performed at [facility], [address] | mmol/L | LAB | | | | [address], | | | | | | [place] [address] | | | | + + + + + + | Cl | 98 (L)Comment: Testing | 99 - 109 mmol/L | EXTERNAL | | | | performed at [facility], [address] | | LAB | | | | [address], | | | | | | [place] [address] | | | | + + + + + + | CO2 | 27Comment: Testing | 23 - 32 mmol/L | EXTERNAL | | | | performed at [facility], [address] | | LAB | | | | [address], | | | | | | [place] [address] | | | | + + + + + + | Anion Gap | 9Comment: Testing | 5 - 20 mmol/L | EXTERNAL | | | | performed at [facility], [address] | | LAB | | | | [address], | | | | | | [place] [address] | | | | + + + + + + | Glucose, | 101 (H)Comment: Testing | 65 - 99 mg/dL | EXTERNAL | | | Fasting | performed at [facility], [address] | | LAB | | | | [address], | | | | | | [place] [address] | | | | + + + + + + | BUN | 24Comment: Testing | 8 - 25 mg/dL | EXTERNAL | | | | performed at [facility], [address] | | LAB | | | | [address], | | | | | | [place] [address] | | | | + + + + + + | Creatinine | 1.12Comment: Testing | 0.70 - 1.30 | EXTERNAL | | | | performed at [facility], [address] | mg/dL | LAB | | | | [address], | | | | | | [place] [address] | | | | + + + + + + | BUN/Creatin | 21Comment: Testing | | EXTERNAL | | | ine Ratio | performed at [facility], [address] | | LAB | | | | [address], | | | | | | [place] [address] | | | | + + + + + + | Calcium | 8.8Comment: Testing | 8.5 - 10.2 | EXTERNAL | | | | performed at [facility], [address] | mg/dL | LAB | | | | [facility], | | | | | | [place] [address] | | | | + + + [...] | | | | | | at [facility], [address] | | | | | | [address], | | | | | | [place] [address] | | | | + + + [...] | | | Fingerstick | performed at [facility] | | LAB | | | | [address];[place], [place] | | | | | | [address] | | | | + + + [...] | | | Fingerstick | performed at [facility];[address] | | LAB | | | | [address];[place], [place] | | | | | | [address] | | | | + + + [...] | | | Fingerstick | performed at [facility];[address] | | LAB | | | | [address];[place], [place] | | | | | | [address] | | | | + + + [...] CHEST 2 VIEW FRONTAL | | AND BLXKSEU20/9/2014 8:37 AM HISTORY:Followup tube placement. Recent heart [...] EXTERNAL | | | | performed at [facility];[address] | | LAB | | | | [address];[place] | | | | | | [address] | | | | + + + + + + | Red Blood | 2.80 (L)Comment: Testing | 4.20 - 5.70 | EXTERNAL | | | Cells | performed at [facility];[address] | M/uL | LAB | | | Counted | [address];[place] | | | | | | [address] | | | | + + + + + + | Hemoglobin | 9.1 (L)Comment: Testing | 13.2 - 17.0 | EXTERNAL | | | | performed at [facility];[address] | g/dL | LAB | | | | [address];[place] | | | | | | [address] | | | | + + + + + + | Hematocrit, | 27.3 (L)Comment: Testing | 39.0 - 50.0 % | EXTERNAL | | | POC | performed at [facility];[address] | | LAB | | | | [address];[place] | | | | | | [address] | | | | + + + + + + | MCV | 97.4Comment: Testing | 80.0 - 100.0 fl | EXTERNAL | | | | performed at [facility];[address] | | LAB | | | | [address];[place] | | | | | | [address] | | | | + + + + + + | MCH | 32.6Comment: Testing | 27.0 - 34.0 pg | EXTERNAL | | | | performed at [facility];[address] | | LAB | | | | [address];[place] | | | | | | [address] | | | | + + + + + + | MCHC | 33.4Comment: Testing | 32.0 - 35.5 | EXTERNAL | | | | performed at [facility];[address] | g/dL | LAB | | | | [address];[place] | | | | | | [address] | | | | + + + + + + | RDW-CV | 58.6 (H)Comment: Testing | 37 - 53 fl | EXTERNAL | | | | performed at [facility];[address] | | LAB | | | | [address];[place] | | | | | | [address] | | | | + + + + + + | Platelet | 134 (L)Comment: Testing | 150 - 400 K/uL | EXTERNAL | | | Count | performed at [facility];888 | | LAB | | | Plasma | [address];[place] | | | | | | [address] | | | | + + + + + + | MPV | 8.3Comment: Testing | fl | EXTERNAL | | | | performed at [facility];[address] | | LAB | | | | [address];[place] | | | | | | [address] | | | | + + + [...] performed at [facility];88 | | | | | | [facility];[place], [place] | | | | | | [address] | | | | + + + [...] EXTERNAL | | | | performed at [facility];888 | | LAB | | | | [address];[place], [place] | | | | | | [address] | | | | + + + [...] EXTERNAL | | | | performed at [facility];888 | mmol/L | LAB | | | | [address];[place] | | | | | | [address] | | | | + + + + + + | K | 4.9Comment: Testing | 3.5 - 4.9 | EXTERNAL | | | | performed at [facility];888 | mmol/L | LAB | | | | [address];[place] | | | | | | [address] | | | | + + + + + + | Cl | 102Comment: Testing | 99 - 109 mmol/L | EXTERNAL | | | | performed at [facility];[address] | | LAB | | | | [address];[place] | | | | | | [address] | | | | + + + + + + | CO2 | 27Comment: Testing | 23 - 32 mmol/L | EXTERNAL | | | | performed at [facility];[address] | | LAB | | | | [address];[place] | | | | | | [address] | | | | + + + + + + | Anion Gap | 10Comment: Testing | 5 - 20 mmol/L | EXTERNAL | | | | performed at [facility];[address] | | LAB | | | | [address];[place] | | | | | | [address] | | | | + + + + + + | Glucose, | 94Comment: Testing | 65 - 99 mg/dL | EXTERNAL | | | Fasting | performed at [facility];[address] | | LAB | | | | [address];[place] | | | | | | [address] | | | | + + + + + + | BUN | 22Comment: Testing | 8 - 25 mg/dL | EXTERNAL | | | | performed at [facility];[address] | | LAB | | | | [address];[place] | | | | | | [address] | | | | + + + + + + | Creatinine | 1.09Comment: Testing | 0.70 - 1.30 | EXTERNAL | | | | performed at [facility];888 | mg/dL | LAB | | | | [address];[place] | | | | | | [address] | | | | + + + + + + | BUN/Creatin | 20Comment: Testing | | EXTERNAL | | | ine Ratio | performed at [facility];[address] | | LAB | | | | [address];[place] | | | | | | [address] | | | | + + + + + + | Calcium | 8.7Comment: Testing | 8.5 - 10.2 | EXTERNAL | | | | performed at [facility];888 | mg/dL | LAB | | | | [address];[place] | | | | | | [address] | | | | + + + [...] | | | | | | at [facility];[address] [place] [address] | | | | | | [facility];[place] [address] | | | | + + + [...] | | | Fingerstick | performed at [facility];888 | | LAB | | | | [address];[place] | | | | | | [address] | | | | + + + [...] | | | Fingerstick | performed at [facility];888 | | LAB | | | | [address];[place], [place] | | | | | | [address] | | | | + + + [...] | | | Fingerstick | performed at [facility];[address] | | LAB | | | | [address];[place], [place] | | | | | | [address] | | | | + + + [...] | | | Fingerstick | performed at [facility];888 | | LAB | | | | [address];[place] | | | | | | [address] | | | | + + + [...] | | | Fingerstick | performed at [facility];888 | | LAB | | | | [address];[place] | | | | | | [address] | | | | + + + [...] performed at [facility] | | | | | | [address] [facility];[place], [place] | | | | | | [address] | | | | + + + [...] EXTERNAL | | | | performed at [facility], [address] | | LAB | | | | [address], | | | | | | [place] [address] | | | | + + + + + + | Red Blood | 2.77 (L)Comment: Testing | 4.20 - 5.70 | EXTERNAL | | | Cells | performed at [facility], [address] | M/uL | LAB | | | Counted | [address], | | | | | | [place] [address] | | | | + + + + + + | Hemoglobin | 8.9 (L)Comment: Testing | 13.2 - 17.0 | EXTERNAL | | | | performed at [facility], [address] | g/dL | LAB | | | | [address], | | | | | | [place] [address] | | | | + + + + + + | Hematocrit, | 27.5 (L)Comment: Testing | 39.0 - 50.0 % | EXTERNAL | | | POC | performed at [facility], [address] | | LAB | | | | [address], | | | | | | [place] [address] | | | | + + + + + + | MCV | 99.2Comment: Testing | 80.0 - 100.0 fl | EXTERNAL | | | | performed at [facility], [address] | | LAB | | | | [address], | | | | | | [place] [address] | | | | + + + + + + | MCH | 32.0Comment: Testing | 27.0 - 34.0 pg | EXTERNAL | | | | performed at [facility], [address] | | LAB | | | | [address], | | | | | | [place] [address] | | | | + + + + + + | MCHC | 32.3Comment: Testing | 32.0 - 35.5 | EXTERNAL | | | | performed at [facility], [address] | g/dL | LAB | | | | [address], | | | | | | [place] [address] | | | | + + + + + + | RDW-CV | 56.4 (H)Comment: Testing | 37 - 53 fl | EXTERNAL | | | | performed at [facility], [address] | | LAB | | | | [address], | | | | | | [place] [address] | | | | + + + + + + | Platelet | 111 (L)Comment: Testing | 150 - 400 K/uL | EXTERNAL | | | Count | performed at [facility], [address] | | LAB | | | Plasma | [address], | | | | | | [place] [address] | | | | + + + + + + | MPV | 8.7Comment: Testing | fl | EXTERNAL | | | | performed at [facility], [address] | | LAB | | | | [address], | | | | | | [place] [address] | | | | + + + + + + | Differentia | MANUALComment: Testing | | EXTERNAL | | | l Type | performed at [facility], [address] | | LAB | | | | [address], | | | | | | [place], [place] [address] | | | | + + + + + + | Segmented | 87Comment: Testing | % | EXTERNAL | | | Neutrophils | performed at [facility], [address] | | LAB | | | Manual | [address], | | | | | | [place], [place] [address] | | | | + + + + + + | % Bands | 5Comment: Testing | % | EXTERNAL | | | | performed at [facility], [address] | | LAB | | | | [address], | | | | | | [place], [place] [address] | | | | + + + + + + | Lymphocytes | 3Comment: Testing | % | EXTERNAL | | | Manual | performed at [facility], [address] | | LAB | | | | [address], | | | | | | [place] [address] | | | | + + + + + + | Monocytes | 5Comment: Testing | % | EXTERNAL | | | Manual | performed at [facility], [address] | | LAB | | | | [address], | | | | | | [place] [address] | | | | + + + + + + | Absolute | 13.9 (H)Comment: Testing | 1.9 - 7.4 K/uL | EXTERNAL | | | Neutrophils | performed at [facility], [address] | | LAB | | | | [address], | | | | | | [place] [address] | | | | + + + + + + | Bands | 0.8 (H)Comment: Testing | 0 - 0.2 K/uL | EXTERNAL | | | Manual | performed at [facility], [address] | | LAB | | | | [address], | | | | | | [place] [address] | | | | + + + + + + | Absolute | 0.5 (L)Comment: Testing | 1.0 - 3.9 K/uL | EXTERNAL | | | Lymphocytes | performed at [facility], [address] | | LAB | | | | [address], | | | | | | [place] [address] | | | | + + + + + + | Absolute | 0.8Comment: Testing | 0 - 0.8 K/uL | EXTERNAL | | | Monocytes | performed at [facility], [address] | | LAB | | | | [address], | | | | | | [place] [address] | | | | + + + + + + | RBC | 1+Comment: ANISONORMAL | | EXTERNAL | | | Morphology | PLT MORPHTesting | | LAB | | | | performed at [facility], [address] | | | | | | [address], | | | | | | [place] [address] | | | | | | | [...] EXTERNAL | | | | performed at [facility], [address] | | LAB | | | | [address], | | | | | | [place] [address] | | | | + + + [...] | | | | [place] [address] | | | | + + + + + + | K | 4.8Comment: Testing | 3.5 - 4.9 | EXTERNAL | | | | performed at [facility], [address] | mmol/L | LAB | | | | [address], | | | | | | [place] [address] | | | | + + + + + + | Cl | 103Comment: Testing | 99 - 109 mmol/L | EXTERNAL | | | | performed at [facility], [address] | | LAB | | | | [address], | | | | | | [place] [address] | | | | + + + + + + | CO2 | 26Comment: Testing | 23 - 32 mmol/L | EXTERNAL | | | | performed at [facility], [address] | | LAB | | | | [address], | | | | | | [place] [address] | | | | + + + + + + | Anion Gap | 8Comment: Testing | 5 - 20 mmol/L | EXTERNAL | | | | performed at [facility], [address] | | LAB | | | | [address], | | | | | | [place] [address] | | | | + + + + + + | Glucose, | 142 (H)Comment: Testing | 65 - 99 mg/dL | EXTERNAL | | | Fasting | performed at [facility], [address] | | LAB | | | | [address], | | | | | | [place] [address] | | | | + + + + + + | BUN | 23Comment: Testing | 8 - 25 mg/dL | EXTERNAL | | | | performed at [facility], [address] | | LAB | | | | [address], | | | | | | [place] [address] | | | | + + + + + + | Creatinine | 1.16Comment: Testing | 0.70 - 1.30 | EXTERNAL | | | | performed at [facility], [address] | mg/dL | LAB | | | | [address], | | | | | | [place] [address] | | | | + + + + + + | BUN/Creatin | 20Comment: Testing | | EXTERNAL | | | ine Ratio | performed at [facility], [address] | | LAB | | | | [address], | | | | | | [place] [address] | | | | + + + + + + | Calcium | 8.8Comment: Testing | 8.5 - 10.2 | EXTERNAL | | | | performed at [facility], [address] | mg/dL | LAB | | | | [facility], | | | | | | [place] [address] | | | | + + + [...] W | | | | | [address] [facility] [address], | | | | | | [place] [address] | | | | + + + [...] | | | Fingerstick | performed at [facility];[address] | | LAB | | | | [address];[place] | | | | | | [address] | | | | + + + [...] | | | Fingerstick | performed at [facility];[address] | | LAB | | | | [address];[place], [place] | | | | | | [address] | | | | + + + [...] | | | Fingerstick | performed at [facility];[address] | | LAB | | | | [address];[place] | | | | | | [address] | | | | + + + [...] EXTERNAL | | | | performed at [facility];888 | mmol/L | LAB | | | | [address];[place], [place] | | | | | | [address] | | | | + + + [...] | | | Fingerstick | performed at [facility];8 | | LAB | | | | [place] [address];[place], [place] | | | | | | [address] | | | | + + + [...] | | | Fingerstick | performed at [facility];[address] | | LAB | | | | [address];[place], [place] | | | | | | [address] | | | | + + + [...] | | | Fingerstick | performed at [facility];[address] | | LAB | | | | [address];[place] | | | | | | [address] | | | | + + + [...] EXTERNAL | | | | performed at [facility];888 | mmol/L | LAB | | | | [place] [address];[place] | | | | | | [address] | | | | + + + [...] | | | Fingerstick | performed at [facility];[address] | | LAB | | | | [address];[place] | | | | | | [address] | | | | + + + [...] | | | Fingerstick | performed at [facility];[address] | | LAB | | | | [address];[place] | | | | | | [address] | | | | + + + [...] | | | Fingerstick | performed at [facility];[address] | | LAB | | | | [address];[place], [place] | | | | | | [address] | | | | + + + [...] | | | Fingerstick | performed at [facility];[address] | | LAB | | | | [address];[place], [place] | | | | | | [address] | | | | + + + [...] | | | Fingerstick | performed at [facility];[address] | | LAB | | | | [address];[place], [place] | | | | | | [address] | | | | + + + [...] EXTERNAL | | | | performed at [facility], [address] | | LAB | | | | [address], | | | | | | [place] [address] | | | | + + + + + + | Red Blood | 3.07 (L)Comment: Testing | 4.20 - 5.70 | EXTERNAL | | | Cells | performed at [facility], [address] | M/uL | LAB | | | Counted | [address] | | | | | | [place] [address] | | | | + + + + + + | Hemoglobin | 9.9 (L)Comment: Testing | 13.2 - 17.0 | EXTERNAL | | | | performed at [facility], [address] | g/dL | LAB | | | | [address], | | | | | | [place] [address] | | | | + + + + + + | Hematocrit, | 30.2 (L)Comment: Testing | 39.0 - 50.0 % | EXTERNAL | | | POC | performed at [facility], [address] | | LAB | | | | [address], | | | | | | [place] [address] | | | | + + + + + + | MCV | 98.4Comment: Testing | 80.0 - 100.0 fl | EXTERNAL | | | | performed at [facility], [address] | | LAB | | | | [address], | | | | | | [place] [address] | | | | + + + + + + | MCH | 32.3Comment: Testing | 27.0 - 34.0 pg | EXTERNAL | | | | performed at [facility], [address] | | LAB | | | | [address], | | | | | | [place] [address] | | | | + + + + + + | MCHC | 32.8Comment: Testing | 32.0 - 35.5 | EXTERNAL | | | | performed at [facility], [address] | g/dL | LAB | | | | [address], | | | | | | [place] [address] | | | | + + + + + + | RDW-CV | 58.2 (H)Comment: Testing | 37 - 53 fl | EXTERNAL | | | | performed at [facility], [address] | | LAB | | | | [address], | | | | | | [place] [address] | | | | + + + + + + | Platelet | 135 (L)Comment: Testing | 150 - 400 K/uL | EXTERNAL | | | Count | performed at [facility], [address] | | LAB | | | Plasma | [address], | | | | | | [place] [address] | | | | + + + + + + | MPV | 8.2Comment: Testing | fl | EXTERNAL | | | | performed at [facility], [address] | | LAB | | | | [address], | | | | | | [place] [address] | | | | + + + + + + | Differentia | MANUALComment: Testing | | EXTERNAL | | | l Type | performed at [facility], [address] | | LAB | | | | [address], | | | | | | [place] [address] | | | | + + + + + + | Segmented | 81Comment: Testing | % | EXTERNAL | | | Neutrophils | performed at [facility], [address] | | LAB | | | Manual | [address], | | | | | | [place] [address] | | | | + + + + + + | % Bands | 11Comment: Testing | % | EXTERNAL | | | | performed at [facility], [address] | | LAB | | | | [address], | | | | | | [place] [address] | | | | + + + + + + | % | 1Comment: Testing | % | EXTERNAL | | | Metamyelocy | performed at [facility], [address] | | LAB | | | tylor | [address], | | | | | | [place] [address] | | | | + + + + + + | Lymphocytes | 3Comment: Testing | % | EXTERNAL | | | Manual | performed at [facility], [address] | | LAB | | | | [address], | | | | | | [place] [address] | | | | + + + + + + | Monocytes | 4Comment: Testing | % | EXTERNAL | | | Manual | performed at [facility], [address] | | LAB | | | | [address], | | | | | | [place] [address] | | | | + + + + + + | Absolute | 15.8 (H)Comment: Testing | 1.9 - 7.4 K/uL | EXTERNAL | | | Neutrophils | performed at [facility], [address] | | LAB | | | | [address], | | | | | | [place] [address] | | | | + + + + + + | Bands | 2.2 (H)Comment: Testing | 0 - 0.2 K/uL | EXTERNAL | | | Manual | performed at [facility], [address] | | LAB | | | | [address], | | | | | | [place] [address] | | | | + + + + + + | Absolute | 0.2 (H)Comment: Testing | K/uL | EXTERNAL | | | Metamyelocy | performed at [facility], [address] | | LAB | | | tylor | [address], | | | | | | [place] [address] | | | | + + + + + + | Absolute | 0.6 (L)Comment: Testing | 1.0 - 3.9 K/uL | EXTERNAL | | | Lymphocytes | performed at [facility], [address] | | LAB | | | | [address], | | | | | | [place] [address] | | | | + + + + + + | Absolute | 0.8Comment: Testing | 0 - 0.8 K/uL | EXTERNAL | | | Monocytes | performed at [facility], [address] | | LAB | | | | [address], | | | | | | [place] [address] | | | | + + + + + + | RBC | 1+Comment: ANISONORMAL | | EXTERNAL | | | Morphology | PLT MORPHTesting | | LAB | | | | performed at [facility], [address] | | | | | | [address], | | | | | | [place] [address] | | | | | | | [...] EXTERNAL | | | | performed at [facility] | | LAB | | | | [address];[place], [place] | | | | | | [address] | | | | + + + [...] + + | Hemoglobin | 5.4Comment: The Bangl[place]hi | 4.0 - 6.0 % | EXTERNAL [...] | | | | | performed at [facility], [address] | | | | | | [address], | | | | | | [place] [address] | | | | + + + [...] | | | | | performed at [facility], [address] | | | | | | [facility], | | | | | | [place] [address] | | | | + + + [...] EXTERNAL | | | | performed at [facility];888 | mmol/L | LAB | | | | [address];[place] | | | | | | [address] | | | | + + + + + + | K | 5.0 (H)Comment: Testing | 3.5 - 4.9 | EXTERNAL | | | | performed at [facility];888 | mmol/L | LAB | | | | [address];[place] | | | | | | [address] | | | | + + + + + + | Cl | 109Comment: Testing | 99 - 109 mmol/L | EXTERNAL | | | | performed at [facility];[address] | | LAB | | | | [address];[place] | | | | | | [address] | | | | + + + + + + | CO2 | 24Comment: Testing | 23 - 32 mmol/L | EXTERNAL | | | | performed at [facility];[address] | | LAB | | | | [address];[place] | | | | | | [address] | | | | + + + + + + | Anion Gap | 12Comment: Testing | 5 - 20 mmol/L | EXTERNAL | | | | performed at [facility];[address] | | LAB | | | | [address];[place] | | | | | | [address] | | | | + + + + + + | Glucose, | 147 (H)Comment: Testing | 65 - 99 mg/dL | EXTERNAL | | | Fasting | performed at [facility];[address] | | LAB | | | | [address];[place] | | | | | | [address] | | | | + + + + + + | BUN | 19Comment: Testing | 8 - 25 mg/dL | EXTERNAL | | | | performed at [facility];[address] | | LAB | | | | [address];[place] | | | | | | [address] | | | | + + + + + + | Creatinine | 1.00Comment: Testing | 0.70 - 1.30 | EXTERNAL | | | | performed at [facility];[address] | mg/dL | LAB | | | | [address];[place] | | | | | | [address] | | | | + + + + + + | BUN/Creatin | 19Comment: Testing | | EXTERNAL | | | ine Ratio | performed at [facility];[address] | | LAB | | | | [address];[place] | | | | | | [address] | | | | + + + + + + | Calcium | 8.3 (L)Comment: Testing | 8.5 - 10.2 | EXTERNAL | | | | performed at [facility];888 | mg/dL | LAB | | | | [address];[place] | | | | | | [address] | | | | + + + [...] | | | | | | at [facility];[address];[place] [address] | | | | + + + [...] | | | Fingerstick | performed at [facility];[address] | | LAB | | | | [address];[place] | | | | | | [address] | | | | + + + [...] | | | Fingerstick | performed at [facility];[address] | | LAB | | | | [address];[place] | | | | | | [address] | | | | + + + [...] EXTERNAL | | | | performed at [facility];888 | mmol/L | LAB | | | | [address];[place] | | | | | | [address] | | | | + + + [...] | | | Fingerstick | performed at [facility];[address] | | LAB | | | | [address];[place] | | | | | | [address] | | | | + + + [...] 1.0 cm in aggregate. | | | Trench Pipe Layer sections are submitted in cassette A1 and [...] preparation was performed by | | | [employer], [address], | | | [place] [address] ([employer] Supervisor: David Dawson M.D.; | | | [facility]#: [id number]). Diagnostician: Ayad Briscoe MD Pathologist | | [...] | | | Fingerstick | performed at [facility];[address] | | LAB | | | | [address];[place], [place] | | | | | | [address] | | | | + + + [...] + + | Historically converted procedure from [facility] environment | EXTERNAL LAB | + + [...] are seen. | | | A left-sided Edroy-Christiana catheter sheath is seen with the Edroy Ann Marie | | | retracted into [...] Transvenous pacing presents are seen. A left-sided Edroy-Christiana | | catheter sheath is seen with the Edroy Ann Marie retracted into the sheath. The [...] Transvenous pacing presents are seen. A left-sided Edroy-Christiana catheter sheath is se en with the Edroy Ann Marie retracted into the sheath. The [...] | | | Patient | performed at [facility];88 | | LAB | | | | [address];[place], [place] | | | | | | [address] | | | | + + + [...] performed at [facility] | | | | | | [address] [facility];[place], [place] | | | | | | [address] | | | | + + + [...] EXTERNAL | | | | performed at [facility];88 | | LAB | | | | [address];[place], [place] | | | | | | [address] | | | | + + + [...] EXTERNAL | | | | performed at [facility];[address] | | LAB | | | | [address];[place] | | | | | | [address] | | | | + + + + + + | Red Blood | 3.19 (L)Comment: Testing | 4.20 - 5.70 | EXTERNAL | | | Cells | performed at [facility];888 | M/uL | LAB | | | Counted | [address];[place] | | | | | | [address] | | | | + + + + + + | Hemoglobin | 10.3 (L)Comment: Testing | 13.2 - 17.0 | EXTERNAL | | | | performed at [facility];888 | g/dL | LAB | | | | [address];[place] | | | | | | [address] | | | | + + + + + + | Hematocrit, | 30.9 (L)Comment: Testing | 39.0 - 50.0 % | EXTERNAL | | | POC | performed at [facility];[address] | | LAB | | | | [address];[place] | | | | | | [address] | | | | + + + + + + | MCV | 96.9Comment: Testing | 80.0 - 100.0 fl | EXTERNAL | | | | performed at [facility];[address] | | LAB | | | | [address];[place] | | | | | | [address] | | | | + + + + + + | MCH | 32.4Comment: Testing | 27.0 - 34.0 pg | EXTERNAL | | | | performed at [facility];[address] | | LAB | | | | [address];[place] | | | | | | [address] | | | | + + + + + + | MCHC | 33.4Comment: Testing | 32.0 - 35.5 | EXTERNAL | | | | performed at [facility];888 | g/dL | LAB | | | | [address];[place] | | | | | | [address] | | | | + + + + + + | RDW-CV | 56.9 (H)Comment: Testing | 37 - 53 fl | EXTERNAL | | | | performed at [facility];[address] | | LAB | | | | [address];[place] | | | | | | [address] | | | | + + + + + + | Platelet | 141 (L)Comment: Testing | 150 - 400 K/uL | EXTERNAL | | | Count | performed at [facility];[address] | | LAB | | | Plasma | [address];[place] | | | | | | [address] | | | | + + + + + + | MPV | 7.8Comment: Testing | fl | EXTERNAL | | | | performed at [facility];[address] | | LAB | | | | [address];[place] | | | | | | [address] | | | | + + + + + + | Differentia | AUTOMATEDComment: | | EXTERNAL | | | l Type | Testing performed at | | LAB | | | | [facility];[address];[place] [address] | | | | + + + + + + | % Segmented | 87.9Comment: Testing | % | EXTERNAL | | | | performed at [facility];[address] | | LAB | | | Neutrophils | [address];[place] | | | | | | [address] | | | | + + + + + + | % | 7.0Comment: Testing | % | EXTERNAL | | | Lymphocytes | performed at [facility];[address] | | LAB | | | | [address];[place] | | | | | | [address] | | | | + + + + + + | % Monocytes | 3.8Comment: Testing | % | EXTERNAL | | | | performed at [facility];888 | | LAB | | | | [address];[place] | | | | | | [address] | | | | + + + + + + | % | 0.8Comment: Testing | % | EXTERNAL | | | Eosinophils | performed at [facility];[address] | | LAB | | | | [address];[place] | | | | | | [address] | | | | + + + + + + | % Basophils | 0.5Comment: Testing | % | EXTERNAL | | | | performed at [facility];[address] | | LAB | | | | [address];[place] | | | | | | [address] | | | | + + + + + + | Absolute | 19.5 (H)Comment: Testing | 1.9 - 7.4 K/uL | EXTERNAL | | | Segmented | performed at [facility];[address] | | LAB | | | Neutrophils | [address];[place] | | | | | | [address] | | | | + + + + + + | Absolute | 1.5Comment: Testing | 1.0 - 3.9 K/uL | EXTERNAL | | | Lymphocytes | performed at [facility];[address] | | LAB | | | | [address];[place] | | | | | | [address] | | | | + + + + + + | Absolute | 0.8Comment: Testing | 0 - 0.8 K/uL | EXTERNAL | | | Monocytes | performed at [facility];[address] | | LAB | | | | [address];[place] | | | | | | [address] | | | | + + + + + + | Absolute | 0.2Comment: Testing | 0 - 0.5 K/uL | EXTERNAL | | | Eosinophils | performed at [facility];[address] | | LAB | | | | [address];[place] | | | | | | [address] | | | | + + + + + + | Absolute | 0.1Comment: Testing | 0 - 0.1 K/uL | EXTERNAL | | | Basophils | performed at [facility];[address] | | LAB | | | | [address];[place] | | | | | | [address] | | | | + + + + + + | Differentia | SLIDE SCANNED, AGREES | | EXTERNAL | | | l Comments | WITH AUTOMATED | | LAB | | | | RESULTS.Comment: Testing | | | | | | performed at [facility];[address] | | | | | | [address];[place] | | | | | | [address] | | | | + + + [...] | | | Fingerstick | performed at [facility];[address] | | LAB | | | | [address];[place] | | | | | | [address] | | | | + + + [...] EXTERNAL | | | | performed at [facility];[address] | | LAB | | | | [address];[place] | | | | | | [address] | | | | + + + [...] EXTERNAL | | | | performed at [facility];888 | mmol/L | LAB | | | | [address];[place] | | | | | | [address] | | | | + + + + + + | K | 4.8Comment: Testing | 3.5 - 4.9 | EXTERNAL | | | | performed at [facility];888 | mmol/L | LAB | | | | [address];[place] | | | | | | [address] | | | | + + + + + + | Cl | 108Comment: Testing | 99 - 109 mmol/L | EXTERNAL | | | | performed at [facility];[address] | | LAB | | | | [address];[place] | | | | | | [address] | | | | + + + + + + | CO2 | 24Comment: Testing | 23 - 32 mmol/L | EXTERNAL | | | | performed at [facility];[address] | | LAB | | | | [address];[place] | | | | | | [address] | | | | + + + + + + | Anion Gap | 14Comment: Testing | 5 - 20 mmol/L | EXTERNAL | | | | performed at [facility];[address] | | LAB | | | | [address];[place] | | | | | | [address] | | | | + + + + + + | Glucose, | 129 (H)Comment: Testing | 65 - 99 mg/dL | EXTERNAL | | | Fasting | performed at [facility];[address] | | LAB | | | | [address];[place] | | | | | | [address] | | | | + + + + + + | BUN | 17Comment: Testing | 8 - 25 mg/dL | EXTERNAL | | | | performed at [facility];[address] | | LAB | | | | [address];[place] | | | | | | [address] | | | | + + + + + + | Creatinine | 0.94Comment: Testing | 0.70 - 1.30 | EXTERNAL | | | | performed at [facility];888 | mg/dL | LAB | | | | [address];[place] | | | | | | [address] | | | | + + + + + + | BUN/Creatin | 19Comment: Testing | | EXTERNAL | | | ine Ratio | performed at [facility];[address] | | LAB | | | | [address];[place] | | | | | | [address] | | | | + + + + + + | Calcium | 8.3 (L)Comment: Testing | 8.5 - 10.2 | EXTERNAL | | | | performed at [facility];888 | mg/dL | LAB | | | | [address];[place] | | | | | | [address] | | | | + + + [...] | | | | | | at [facility];[address] [place] [address] | | | | | | [facility];[place] [address] | | | | + + + [...] | | | (Calc) | performed at [facility];888 | mmol/L | LAB | | | | [address];[place] | | | | | | [address] | | | | + + + + + + | pH, Bld | 7.331Comment: Testing | 7.300 - 7.450 | EXTERNAL | | | | performed at [facility];[address] | | LAB | | | | [address];[place] | | | | | | [address] | | | | + + + [...] This is a non-reportable procedure without a asbestos handler report and | | | is used for image storage only. Please review the operative | | | procedure notes for details on the procedure. 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 [...] EXTERNAL | | | | performed at [facility];[address] | | LAB | | | | [address];[place] | | | | | | [address] | | | | + + + + + + | PCO2 ART | 40Comment: Testing | 35 - 45 mmHg | EXTERNAL | | | | performed at [facility];[address] | | LAB | | | | [address];[place] | | | | | | [address] | | | | + + + + + + | PO2 ART | 268 (H)Comment: Testing | 80 - 105 mmHg | EXTERNAL | | | | performed at [facility];[address] | | LAB | | | | [address];[place] | | | | | | [address] | | | | + + + + + + | HCO3 ART | 27 (H)Comment: Testing | 22 - 26 mmol/L | EXTERNAL | | | | performed at [facility];[address] | | LAB | | | | [address];[place] | | | | | | [address] | | | | + + + + + + | POC | 28 (H)Comment: Testing | 23 - 27 mEq/L | EXTERNAL | | | APPEARANCE | performed at [facility];888 | | LAB | | | UA | [address];[place] | | | | | | [address] | | | | + + + + + + | Base | 2Comment: Testing | 0 - 3 mEq/L | EXTERNAL | | | Excess, | performed at [facility];[address] | | LAB | | | Arterial | [address];[place] | | | | | | [address] | | | | + + + + + + | O2 SAT ART | 100 (H)Comment: Testing | 95 - 98 % | EXTERNAL | | | | performed at [facility];[address] | | LAB | | | | [address];[place] | | | | | | [address] | | | | + + + + + + | Sodium, POC | 136Comment: Testing | 135 - 145 mEq/L | EXTERNAL | | | | performed at [facility];[address] | | LAB | | | | [address];[place] | | | | | | [address] | | | | + + + + + + | Potassium, | 5.0Comment: Testing | 3.5 - 5.0 mEq/L | EXTERNAL | | | POC | performed at [facility];[address] | | LAB | | | | [address];[place] | | | | | | [address] | | | | + + + + + + | Ionized | 1.23Comment: Testing | 1.12 - 1.32 | EXTERNAL | | | Calcium, | performed at [facility];888 | mmol/L | LAB | | | POC | [address];[place] | | | | | | [address] | | | | + + + + + + | Glucose, | 112 (H)Comment: Testing | 65 - 99 mg/dL | EXTERNAL | | | POC | performed at [facility];[address] | | LAB | | | | [address];[place] | | | | | | [address] | | | | + + + + + + | Hematocrit, | 25 (L)Comment: Testing | 40.0 - 50.0 % | EXTERNAL | | | POC | performed at [facility];[address] | | LAB | | | | [address];[place] | | | | | | [address] | | | | + + + + + + | Hemoglobin, | 8.5 (L)Comment: Testing | 13.7 - 16.7 | EXTERNAL | | | POC | performed at [facility];888 | g/dL | LAB | | | | [address];[place] | | | | | | [address] | | | | + + + [...] | | LAB | | | | [facility];[address] | | | | | [address];[place] [address] | | | | + + + + + + | PCO2 ART | 38Comment: Testing | 35 - 45 mmHg | EXTERNAL | | | | performed at [facility];[address] | | LAB | | | | [address];[place] | | | | | | [address] | | | | + + + + + + | PO2 ART | 196 (H)Comment: Testing | 80 - 105 mmHg | EXTERNAL | | | | performed at [facility];[address] | | LAB | | | | [address];[place] | | | | | | [address] | | | | + + + + + + | HCO3 ART | 28 (H)Comment: Testing | 22 - 26 mmol/L | EXTERNAL | | | | performed at [facility];[address] | | LAB | | | | [address];[place] | | | | | | [address] | | | | + + + + + + | POC | 29 (H)Comment: Testing | 23 - 27 mEq/L | EXTERNAL | | | APPEARANCE | performed at [facility];[address] | | LAB | | | UA | [address];[place] | | | | | | [address] | | | | + + + + + + | Base | 4 (H)Comment: Testing | 0 - 3 mEq/L | EXTERNAL | | | Excess, | performed at [facility];[address] | | LAB | | | Arterial | [address];[place] | | | | | | [address] | | | | + + + + + + | O2 SAT ART | 100 (H)Comment: Testing | 95 - 98 % | EXTERNAL | | | | performed at [facility];[address] | | LAB | | | | [address];[place] | | | | | | [address] | | | | + + + + + + | Sodium, POC | 137Comment: Testing | 135 - 145 mEq/L | EXTERNAL | | | | performed at [facility];[address] | | LAB | | | | [address];[place] | | | | | | [address] | | | | + + + + + + | Potassium, | 5.8 (H)Comment: Testing | 3.5 - 5.0 mEq/L | EXTERNAL | | | POC | performed at [facility];[address] | | LAB | | | | [address];[place] | | | | | | [address] | | | | + + + + + + | Ionized | 1.08 (L)Comment: Testing | 1.12 - 1.32 | EXTERNAL | | | Calcium, | performed at [facility];888 | mmol/L | LAB | | | POC | [address];[place] | | | | | | [address] | | | | + + + + + + | Glucose, | 100 (H)Comment: Testing | 65 - 99 mg/dL | EXTERNAL | | | POC | performed at [facility];[address] | | LAB | | | | [address];[place] | | | | | | [address] | | | | + + + + + + | Hematocrit, | 25 (L)Comment: Testing | 40.0 - 50.0 % | EXTERNAL | | | POC | performed at [facility];[address] | | LAB | | | | [address];[place] | | | | | | [address] | | | | + + + + + + | Hemoglobin, | 8.5 (L)Comment: Testing | 13.7 - 16.7 | EXTERNAL | | | POC | performed at [facility];888 | g/dL | LAB | | | | [address];[place], [place] | | | | | | [address] | | | | + + + [...] EXTERNAL | | | | performed at [facility];[address] | | LAB | | | | [address];[place] | | | | | | [address] | | | | + + + + + + | PCO2 ART | 43Comment: Testing | 35 - 45 mmHg | EXTERNAL | | | | performed at [facility];[address] | | LAB | | | | [address];[place] | | | | | | [address] | | | | + + + + + + | PO2 ART | 264 (H)Comment: Testing | 80 - 105 mmHg | EXTERNAL | | | | performed at [facility];[address] | | LAB | | | | [address];[place] | | | | | | [address] | | | | + + + + + + | HCO3 ART | 29 (H)Comment: Testing | 22 - 26 mmol/L | EXTERNAL | | | | performed at [facility];[address] | | LAB | | | | [address];[place] | | | | | | [address] | | | | + + + + + + | POC | 30 (H)Comment: Testing | 23 - 27 mEq/L | EXTERNAL | | | APPEARANCE | performed at [facility];888 | | LAB | | | UA | [address];[place] | | | | | | [address] | | | | + + + + + + | Base | 4 (H)Comment: Testing | 0 - 3 mEq/L | EXTERNAL | | | Excess, | performed at [facility];[address] | | LAB | | | Arterial | [address];[place] | | | | | | [address] | | | | + + + + + + | O2 SAT ART | 100 (H)Comment: Testing | 95 - 98 % | EXTERNAL | | | | performed at [facility];[address] | | LAB | | | | [address];[place] | | | | | | [address] | | | | + + + + + + | Sodium, POC | 137Comment: Testing | 135 - 145 mEq/L | EXTERNAL | | | | performed at [facility];[address] | | LAB | | | | [address];[place] | | | | | | [address] | | | | + + + + + + | Potassium, | 4.7Comment: Testing | 3.5 - 5.0 mEq/L | EXTERNAL | | | POC | performed at [facility];[address] | | LAB | | | | [address];[place] | | | | | | [address] | | | | + + + + + + | Ionized | 1.09 (L)Comment: Testing | 1.12 - 1.32 | EXTERNAL | | | Calcium, | performed at [facility];888 | mmol/L | LAB | | | POC | [address];[place] | | | | | | [address] | | | | + + + + + + | Glucose, | 96Comment: Testing | 65 - 99 mg/dL | EXTERNAL | | | POC | performed at [facility];[address] | | LAB | | | | [address];[place] | | | | | | [address] | | | | + + + + + + | Hematocrit, | 26 (L)Comment: Testing | 40.0 - 50.0 % | EXTERNAL | | | POC | performed at [facility];[address] | | LAB | | | | [address];[place] | | | | | | [address] | | | | + + + + + + | Hemoglobin, | 8.8 (L)Comment: Testing | 13.7 - 16.7 | EXTERNAL | | | POC | performed at [facility];888 | g/dL | LAB | | | | [address];[place] | | | | | | [address] | | | | + + + [...] EXTERNAL | | | | performed at [facility];[address] | | LAB | | | | [address];[place] | | | | | | [address] | | | | + + + + + + | PCO2 ART | 50 (H)Comment: Testing | 35 - 45 mmHg | EXTERNAL | | | | performed at [facility];[address] | | LAB | | | | [address];[place] | | | | | | [address] | | | | + + + + + + | PO2 ART | 303 (H)Comment: Testing | 80 - 105 mmHg | EXTERNAL | | | | performed at [facility];[address] | | LAB | | | | [address];[place] | | | | | | [address] | | | | + + + + + + | HCO3 ART | 29 (H)Comment: Testing | 22 - 26 mmol/L | EXTERNAL | | | | performed at [facility];[address] | | LAB | | | | [address];[place] | | | | | | [address] | | | | + + + + + + | POC | 31 (H)Comment: Testing | 23 - 27 mEq/L | EXTERNAL | | | APPEARANCE | performed at [facility];[address] | | LAB | | | UA | [address];[place] | | | | | | [address] | | | | + + + + + + | Base | 4 (H)Comment: Testing | 0 - 3 mEq/L | EXTERNAL | | | Excess, | performed at [facility];[address] | | LAB | | | Arterial | [address];[place] | | | | | | [address] | | | | + + + + + + | O2 SAT ART | 100 (H)Comment: Testing | 95 - 98 % | EXTERNAL | | | | performed at [facility];[address] | | LAB | | | | [address];[place] | | | | | | [address] | | | | + + + + + + | Sodium, POC | 135Comment: Testing | 135 - 145 mEq/L | EXTERNAL | | | | performed at [facility];[address] | | LAB | | | | [address];[place] | | | | | | [address] | | | | + + + + + + | Potassium, | 6.4 (HH)Comment: Testing | 3.5 - 5.0 mEq/L | EXTERNAL | | | POC | performed at [facility];888 | | LAB | | | | [address];[place] | | | | | | [address] | | | | + + + + + + | Ionized | 1.07 (L)Comment: Testing | 1.12 - 1.32 | EXTERNAL | | | Calcium, | performed at [facility];888 | mmol/L | LAB | | | POC | [address];[place] | | | | | | [address] | | | | + + + + + + | Glucose, | 101 (H)Comment: Testing | 65 - 99 mg/dL | EXTERNAL | | | POC | performed at [facility];[address] | | LAB | | | | [address];[place] | | | | | | [address] | | | | + + + + + + | Hematocrit, | 24 (L)Comment: Testing | 40.0 - 50.0 % | EXTERNAL | | | POC | performed at [facility];[address] | | LAB | | | | [address];[place] | | | | | | [address] | | | | + + + + + + | Hemoglobin, | 8.2 (L)Comment: Testing | 13.7 - 16.7 | EXTERNAL | | | POC | performed at [facility];888 | g/dL | LAB | | | | [address];[place] | | | | | | [address] | | | | + + + [...] | | LAB | | | | [facility];[address];[place] [address] | | | | + + + + + + | PCO2 ART | 66 (HH)Comment: Testing | 35 - 45 mmHg | EXTERNAL | | | | performed at [facility];[address] | | LAB | | | | [address];[place] | | | | | | [address] | | | | + + + + + + | PO2 ART | 405 (H)Comment: Testing | 80 - 105 mmHg | EXTERNAL | | | | performed at [facility];[address] | | LAB | | | | [address];[place] | | | | | | [address] | | | | + + + + + + | HCO3 ART | 29 (H)Comment: Testing | 22 - 26 mmol/L | EXTERNAL | | | | performed at [facility];[address] | | LAB | | | | [address];[place] | | | | | | [address] | | | | + + + + + + | POC | 31 (H)Comment: Testing | 23 - 27 mEq/L | EXTERNAL | | | APPEARANCE | performed at [facility];[address] | | LAB | | | UA | [address];[place] | | | | | | [address] | | | | + + + + + + | Base | 2Comment: Testing | 0 - 3 mEq/L | EXTERNAL | | | Excess, | performed at [facility];[address] | | LAB | | | Arterial | [address];[place] | | | | | | [address] | | | | + + + + + + | O2 SAT ART | 100 (H)Comment: Testing | 95 - 98 % | EXTERNAL | | | | performed at [facility];[address] | | LAB | | | | [address];[place] | | | | | | [address] | | | | + + + + + + | Sodium, POC | 135Comment: Testing | 135 - 145 mEq/L | EXTERNAL | | | | performed at [facility];[address] | | LAB | | | | [address];[place] | | | | | | [address] | | | | + + + + + + | Potassium, | 4.4Comment: Testing | 3.5 - 5.0 mEq/L | EXTERNAL | | | POC | performed at [facility];[address] | | LAB | | | | [address];[place] | | | | | | [address] | | | | + + + + + + | Ionized | 1.21Comment: Testing | 1.12 - 1.32 | EXTERNAL | | | Calcium, | performed at [facility];888 | mmol/L | LAB | | | POC | [address];[place] | | | | | | [address] | | | | + + + + + + | Glucose, | 107 (H)Comment: Testing | 65 - 99 mg/dL | EXTERNAL | | | POC | performed at [facility];[address] | | LAB | | | | [address];[place] | | | | | | [address] | | | | + + + + + + | Hematocrit, | 32 (L)Comment: Testing | 40.0 - 50.0 % | EXTERNAL | | | POC | performed at [facility];[address] | | LAB | | | | [address];[place] | | | | | | [address] | | | | + + + + + + | Hemoglobin, | 10.9 (L)Comment: Testing | 13.7 - 16.7 | EXTERNAL | | | POC | performed at [facility];888 | g/dL | LAB | | | | [address];[place] | | | | | | [address] | | | | + + + [...] EXTERNAL | | | | performed at [facility];[address] | | LAB | | | | [address];[place], [place] | | | | | | [address] | | | | + + + + + + | PCO2 ART | 45Comment: Testing | 35 - 45 mmHg | EXTERNAL | | | | performed at [facility];[address] | | LAB | | | | [address];[place] | | | | | | [address] | | | | + + + + + + | PO2 ART | 288 (H)Comment: Testing | 80 - 105 mmHg | EXTERNAL | | | | performed at [facility];[address] | | LAB | | | | [address];[place] | | | | | | [address] | | | | + + + + + + | HCO3 ART | 28 (H)Comment: Testing | 22 - 26 mmol/L | EXTERNAL | | | | performed at [facility];[address] | | LAB | | | | [address];[place] | | | | | | [address] | | | | + + + + + + | POC | 30 (H)Comment: Testing | 23 - 27 mEq/L | EXTERNAL | | | APPEARANCE | performed at [facility];[address] | | LAB | | | UA | [address];[place] | | | | | | [address] | | | | + + + + + + | Base | 4 (H)Comment: Testing | 0 - 3 mEq/L | EXTERNAL | | | Excess, | performed at [facility];[address] | | LAB | | | Arterial | [address];[place] | | | | | | [address] | | | | + + + + + + | O2 SAT ART | 100 (H)Comment: Testing | 95 - 98 % | EXTERNAL | | | | performed at [facility];[address] | | LAB | | | | [address];[place] | | | | | | [address] | | | | + + + + + + | Sodium, POC | 138Comment: Testing | 135 - 145 mEq/L | EXTERNAL | | | | performed at [facility];[address] | | LAB | | | | [address];[place] | | | | | | [address] | | | | + + + + + + | Potassium, | 3.8Comment: Testing | 3.5 - 5.0 mEq/L | EXTERNAL | | | POC | performed at [facility];[address] | | LAB | | | | [address];[place] | | | | | | [address] | | | | + + + + + + | Ionized | 1.22Comment: Testing | 1.12 - 1.32 | EXTERNAL | | | Calcium, | performed at [facility];888 | mmol/L | LAB | | | POC | [address];[place] | | | | | | [address] | | | | + + + + + + | Glucose, | 88Comment: Testing | 65 - 99 mg/dL | EXTERNAL | | | POC | performed at [facility];[address] | | LAB | | | | [address];[place] | | | | | | [address] | | | | + + + + + + | Hematocrit, | 30 (L)Comment: Testing | 40.0 - 50.0 % | EXTERNAL | | | POC | performed at [facility];[address] | | LAB | | | | [address];[place] | | | | | | [address] | | | | + + + + + + | Hemoglobin, | 10.2 (L)Comment: Testing | 13.7 - 16.7 | EXTERNAL | | | POC | performed at [facility];888 | g/dL | LAB | | | | [address];[place] | | | | | | [address] | | | | + + + [...] | | | Fingerstick | performed at [facility];[address] | | LAB | | | | [address];[place], [place] | | | | | | [address] | | | | + + + [...] + + | Historically converted procedure from [facility] | EXTERNAL LAB | + + [...] | | | Patient | performed at [facility];[address] | | LAB | | | | [address];[place] | | | | | | [address] | | | | + + + [...] performed at [facility];[address] | | | | | | [facility];[place], [place] | | | | | | [address] | | | | + + + [...] | | | Patient | performed at [facility];[address] | | LAB | | | | [address];[place], [place] | | | | | | [address] | | | | + + + [...] Pal, Rad Conversion - 01/18/2019 9:23 PM [facility] DENISE STONE CHEST 2 VIEW FRONTAL | | AND NXNUKCD19/5/2014 6:17 PM History: 78 years. Male. Aortic [...] | | | Patient | performed at [facility];[address] | | LAB | | | | [address];[place], [place] | | | | | | [address] | | | | + + + [...] EXTERNAL LAB | | Testing performed at [facility];[address] [place] [address];[place] [address] MRSA PCR | | | NEGATIVE Testing performed at | | | [address];[place] [address] | | + + + + +---------+ [...] common femoral vein was cannulized with a 7-Burkinan sheath and | | | the right common femoral artery was cannulized with a 6-Burkinan | | | sheath. Over a guidewire a 5-Burkinan FL-4 diagnostic catheter was | | | advanced to the ascending aorta and found to be too short. So it was | | | exchanged for a 5-Burkinan FL-6 catheter that selectively engaged the | | | left main. Contrast was injected. A selective angiogram for the left | | | main, LAD, and left circumflex arteries was performed in different | | | views. Over a guidewire it was exchanged for a diagnostic 5-Burkinan | | | FR-4 catheter selectively engaging the right coronary artery. | | | Contrast was injected. A selective angiogram for the right coronary | | | artery was performed in different views. Over a guidewire it was | | | exchanged for a 5-Burkinan FR-4 diagnostic catheter that selectively | | | engaged the RCA. Contrast was injected. Selective angiogram for the | | | RCA was performed in different views. The catheter was removed. | | | Through the venous sheath, a Edroy-Christiana catheter was advanced to the | | [...] success, and so it was exchanged for 5-Burkinan | | | AL-1 diagnostic catheter with a fixed cord straight tip wire. I was | | | able to advance the AL-1 to the left ventricle, and the AL-1 was | | | exchanged over a 260 exchange wire to a 6-Burkinan Alex catheter | | | that was advanced to the left ventricle. Gradient across the aortic | | | valve was measured and the gradient across the mitral valve was | | | measured with the wedge position. Then the Edroy-Christiana catheter was | | | removed. The [place] catheter was removed over the guidewire, and | | | both sheaths were removed. Manual pressure was held for 20 minutes | | | with good hemostasis. The patient was transferred to the recovery | | | area in stable condition. FINDINGS HEMODYNAMICS 1. Systemic | | | pressure 103/62. 2. Left ventricular end-diastolic pressure 21 mmHg. | | | 3. Qyki-di-envj gradient across the aortic valve 46 mmHg. [...] vein was cannulized | | with a 7-Burkinan sheath and the right common femoral artery was cannulized | | with a 6-Burkinan sheath. Over a guidewire a 5-Burkinan FL-4 diagnostic | | catheter was advanced to the ascending aorta and found to be too short. So | | it was exchanged for a 5-Burkinan FL-6 catheter that selectively engaged the | | left main. Contrast was injected. A selective angiogram for the left main, | | LAD, and left circumflex arteries was performed in different views. Over a | | guidewire it was exchanged for a diagnostic 5-Burkinan FR-4 catheter | | selectively engaging the right coronary artery. Contrast was injected. A | | selective angiogram for the right coronary artery was performed in | | different views. Over a guidewire it was exchanged for a 5-Burkinan FR-4 | | diagnostic catheter that selectively engaged the RCA. Contrast was | | injected. Selective angiogram for the RCA was performed in different | | views. | | | | The catheter was removed. | | | | Through the venous sheath, a Edroy-Christiana catheter was advanced to the right | [...] success, and so it was exchanged for 5-Burkinan AL-1 diagnostic catheter | | with a fixed cord straight tip wire. I was able to advance the AL-1 to the | | left ventricle, and the AL-1 was exchanged over a 260 exchange wire to a | | 6-Burkinan Alex catheter that was advanced to the left ventricle. | | Gradient across the aortic valve was measured and the gradient across the | | mitral valve was measured with the wedge position. Then the Edroy-Christiana | | catheter was removed. The Alex [...] end-diastolic pressure 21 mmHg. | | 3. Eoey-gr-zzbh gradient across the aortic valve 46 mmHg. [...] EXTERNAL | | | Patient | NURSING [id number],FRANSISCA | | LAB | | | | B AT 0235 BY [facility] BACK | | | | | | RESULTS VERIFIEDTesting | | | | | | performed at [facility];[address] | | | | | | [address];[place] | | | | | | [address] | | | | + + + [...] performed at [facility];[address] | | | | | | [facility];[place], [place] | | | | | | [address] | | | | + + + [...] | Patient | TO MONICO Louise ON [facility] AT | | LAB | | | | 1851 BY pycoREAD BACK | | | | | | RESULTS VERIFIEDTesting | | | | | | performed at [facility];[address] | | | | | | [address];[place], [place] | | | | | | [address] | | | | + + + [...] EXTERNAL | | | | performed at [facility];[address] | | LAB | | | | [address];[place] | | | | | | [address] | | | | + + + + + + | Red Blood | 3.52 (L)Comment: Testing | 4.20 - 5.70 | EXTERNAL | | | Cells | performed at [facility];888 | M/uL | LAB | | | Counted | [address];[place] | | | | | | [address] | | | | + + + + + + | Hemoglobin | 11.4 (L)Comment: Testing | 13.2 - 17.0 | EXTERNAL | | | | performed at [facility];888 | g/dL | LAB | | | | [address];[place] | | | | | | [address] | | | | + + + + + + | Hematocrit, | 34.1 (L)Comment: Testing | 39.0 - 50.0 % | EXTERNAL | | | POC | performed at [facility];[address] | | LAB | | | | [address];[place] | | | | | | [address] | | | | + + + + + + | MCV | 96.7Comment: Testing | 80.0 - 100.0 fl | EXTERNAL | | | | performed at [facility];[address] | | LAB | | | | [address];[place] | | | | | | [address] | | | | + + + + + + | MCH | 32.2Comment: Testing | 27.0 - 34.0 pg | EXTERNAL | | | | performed at [facility];[address] | | LAB | | | | [address];[place] | | | | | | [address] | | | | + + + + + + | MCHC | 33.3Comment: Testing | 32.0 - 35.5 | EXTERNAL | | | | performed at [facility];888 | g/dL | LAB | | | | [address];[place] | | | | | | [address] | | | | + + + + + + | RDW-CV | 56.4 (H)Comment: Testing | 37 - 53 fl | EXTERNAL | | | | performed at [facility];[address] | | LAB | | | | [address];[place] | | | | | | [address] | | | | + + + + + + | Platelet | 178Comment: Testing | 150 - 400 K/uL | EXTERNAL | | | Count | performed at [facility];[address] | | LAB | | | Plasma | [address];[place] | | | | | | [address] | | | | + + + + + + | MPV | 8.1Comment: Testing | fl | EXTERNAL | | | | performed at [facility];[address] | | LAB | | | | [address];[place] | | | | | | [address] | | | | + + + [...] | | | Patient | performed at [facility];[address] | | LAB | | | | [address];[place], [place] | | | | | | [address] | | | | + + + [...] performed at [facility];[address] | | | | | | [facility];[place], [place] | | | | | | [address] | | | | + + + [...] performed at [facility] | | | | | | [facility];[place], [place] | | | | | | [address] | | | | + + + [...] | | | | [place] [address] | | | | + + + + + + | Red Blood | 3.27 (L)Comment: Testing | 4.20 - 5.70 | EXTERNAL | | | Cells | performed at [facility], [address] | M/uL | LAB | | | Counted | [address], | | | | | | [place] [address] | | | | + + + + + + | Hemoglobin | 10.4 (L)Comment: Testing | 13.2 - 17.0 | EXTERNAL | | | | performed at [facility], [address] | g/dL | LAB | | | | [address], | | | | | | [place] [address] | | | | + + + + + + | Hematocrit, | 32.2 (L)Comment: Testing | 39.0 - 50.0 % | EXTERNAL | | | POC | performed at [facility], [address] | | LAB | | | | [address], | | | | | | [place] [address] | | | | + + + + + + | MCV | 98.6Comment: Testing | 80.0 - 100.0 fl | EXTERNAL | | | | performed at [facility], [address] | | LAB | | | | [address], | | | | | | [place] [address] | | | | + + + + + + | MCH | 31.9Comment: Testing | 27.0 - 34.0 pg | EXTERNAL | | | | performed at [facility], [address] | | LAB | | | | [address], | | | | | | [place] [address] | | | | + + + + + + | MCHC | 32.4Comment: Testing | 32.0 - 35.5 | EXTERNAL | | | | performed at [facility], [address] | g/dL | LAB | | | | [address], | | | | | | [place] [address] | | | | + + + + + + | RDW-CV | 56.9 (H)Comment: Testing | 37 - 53 fl | EXTERNAL | | | | performed at [facility], [address] | | LAB | | | | [address], | | | | | | [place] [address] | | | | + + + + + + | Platelet | 168Comment: Testing | 150 - 400 K/uL | EXTERNAL | | | Count | performed at [facility], [address] | | LAB | | | Plasma | [address], | | | | | | [place] [address] | | | | + + + + + + | MPV | 8.7Comment: Testing | fl | EXTERNAL | | | | performed at [facility], [address] | | LAB | | | | [address], | | | | | | [place] [address] | | | | + + + + + + | Differentia | AUTOMATEDComment: | | EXTERNAL | | | l Type | Testing performed at | | LAB | | | | [facility], [address] | | | | | | [place] | | | | | | [address] | | | | + + + + + + | % Segmented | 81.1Comment: Testing | % | EXTERNAL | | | | performed at [facility], [address] | | LAB | | | Neutrophils | [address], | | | | | | [place], [place] [address] | | | | + + + + + + | % | 8.6Comment: Testing | % | EXTERNAL | | | Lymphocytes | performed at [facility], [address] | | LAB | | | | [address], | | | | | | [place] [address] | | | | + + + + + + | % Monocytes | 7.2Comment: Testing | % | EXTERNAL | | | | performed at [facility], [address] | | LAB | | | | [address], | | | | | | [place] [address] | | | | + + + + + + | % | 2.2Comment: Testing | % | EXTERNAL | | | Eosinophils | performed at [facility], [address] | | LAB | | | | [address], | | | | | | [place] [address] | | | | + + + + + + | % Basophils | 0.9Comment: Testing | % | EXTERNAL | | | | performed at [facility], [address] | | LAB | | | | [address], | | | | | | [place] [address] | | | | + + + + + + | Absolute | 6.5Comment: Testing | 1.9 - 7.4 K/uL | EXTERNAL | | | Segmented | performed at [facility], [address] | | LAB | | | Neutrophils | [address], | | | | | | [place] [address] | | | | + + + + + + | Absolute | 0.7 (L)Comment: Testing | 1.0 - 3.9 K/uL | EXTERNAL | | | Lymphocytes | performed at [facility], [address] | | LAB | | | | [address], | | | | | | [place] [address] | | | | + + + + + + | Absolute | 0.6Comment: Testing | 0 - 0.8 K/uL | EXTERNAL | | | Monocytes | performed at [facility], [address] | | LAB | | | | [address], | | | | | | [place] [address] | | | | + + + + + + | Absolute | 0.2Comment: Testing | 0 - 0.5 K/uL | EXTERNAL | | | Eosinophils | performed at [facility], [address] | | LAB | | | | [address], | | | | | | [place] [address] | | | | + + + + + + | Absolute | 0.1Comment: Testing | 0 - 0.1 K/uL | EXTERNAL | | | Basophils | performed at [facility], [address] | | LAB | | | | [address], | | | | | | [place] [address] | | | | + + + [...] | | | | [place] [address] | | | | + + + + + + | K | 4.2Comment: Testing | 3.5 - 4.9 | EXTERNAL | | | | performed at [facility], [address] | mmol/L | LAB | | | | [address], | | | | | | [place] [address] | | | | + + + + + + | Cl | 100Comment: Testing | 99 - 109 mmol/L | EXTERNAL | | | | performed at [facility], [address] | | LAB | | | | [address], | | | | | | [place] [address] | | | | + + + + + + | CO2 | 29Comment: Testing | 23 - 32 mmol/L | EXTERNAL | | | | performed at [facility], [address] | | LAB | | | | [address], | | | | | | [place] [address] | | | | + + + + + + | Anion Gap | 9Comment: Testing | 5 - 20 mmol/L | EXTERNAL | | | | performed at [facility], [address] | | LAB | | | | [address], | | | | | | [place] [address] | | | | + + + + + + | Glucose, | 133 (H)Comment: Testing | 65 - 99 mg/dL | EXTERNAL | | | Fasting | performed at [facility], [address] | | LAB | | | | [address], | | | | | | [place] [address] | | | | + + + + + + | BUN | 31 (H)Comment: Testing | 8 - 25 mg/dL | EXTERNAL | | | | performed at [facility], [address] | | LAB | | | | [address], | | | | | | [place] [address] | | | | + + + + + + | Creatinine | 1.28Comment: Testing | 0.70 - 1.30 | EXTERNAL | | | | performed at [facility], [address] | mg/dL | LAB | | | | [address], | | | | | | [place] [address] | | | | + + + + + + | BUN/Creatin | 24Comment: Testing | | EXTERNAL | | | ine Ratio | performed at [facility], [address] | | LAB | | | | [address], | | | | | | [place] [address] | | | | + + + + + + | Calcium | 9.1Comment: Testing | 8.5 - 10.2 | EXTERNAL | | | | performed at [facility], [address] | mg/dL | LAB | | | | [address], | | | | | | [place] [address] | | | | + + + + + + | Protein, | 6.4Comment: Testing | 6.3 - 8.2 g/dL | EXTERNAL | | | Total | performed at [facility], [address] | | LAB | | | | [address], | | | | | | [place] [address] | | | | + + + + + + | Albumin | 3.6Comment: Testing | 3.3 - 4.8 g/dL | EXTERNAL | | | | performed at [facility], [address] | | LAB | | | | [address], | | | | | | [place] [address] | | | | + + + + + + | Globulin | 2.8Comment: Testing | 1.3 - 4.9 g/dL | EXTERNAL | | | | performed at [facility], [address] | | LAB | | | | [address], | | | | | | [place] [address] | | | | + + + + + + | A/G Ratio | 1.3Comment: Testing | 1.0 - 2.4 | EXTERNAL | | | | performed at [facility], [address] | | LAB | | | | [address], | | | | | | [place], [place] [address] | | | | + + + + + + | Bilirubin | 1.3Comment: Testing | 0.1 - 1.5 mg/dL | EXTERNAL | | | Total | performed at [facility], [address] | | LAB | | | | [address], | | | | | | [place] [address] | | | | + + + + + + | ALP, | 61Comment: Testing | 35 - 115 U/L | EXTERNAL | | | External | performed at [facility], [address] | | LAB | | | | [address], | | | | | | [place] [address] | | | | + + + + + + | AST | 26Comment: Testing | 10 - 45 U/L | EXTERNAL | | | | performed at [facility], [address] | | LAB | | | | [address], | | | | | | [place] [address] | | | | + + + + + + | ALT | 15Comment: Testing | 10 - 65 U/L | EXTERNAL | | | | performed at [facility], [address] | | LAB | | | | [address], | | | | | | [place] [address] | | | | + + + [...] | | | | | | at [facility], [address] | | | | | | [address], | | | | | | [place] [address] | | | | + + + [...]
--- OUTSIDE RECORDS SUMMARY | ~2019-12-07 | XMS | Encounter Summary ---
Demographics + + + | Address | [address] | | | [place] [address] | + + + | Home Phone [...] | | | | [place] [address] | | + + + + + | Juana Gasca | ECON | [address] | | | | | [place] | | | | | [address] | | + + + + + | Chad Gasca | ECON | Unknown | | + + + + + Care Team Providers + +------+ + | Care Weight Reducing Technician Name | Role | Phone | [...] + + | 12/29/ | Office | [facility] | [place], | COPD (chronic | | 2014 | Visit | PULMONARY [address] | [place] You MD | obstructive | | | | [place], | | pulmonary disease); | | | | [place] [address] | | Obstructive sleep | | | | [phone] | | apnea on BiPAP; | | | | | | Nocturnal hypoxemia | | | | | | due to emphysema | | | | | | ([facility]) | +--------+---------+ + + + Social [...] travelling with his back and forth to [facility] for her recent cochlear implants. He notes he has not been dyspneic walking this. He can probably walk 1/4 to 1/2 mile without stopping. This has improved consi derably compared to 1/2 to 1 block before. He has been evaluated for nocturnal oxygen and does use it. He is currently on 1 L[facility] at [facility] ht bled in to his [...] inhaled tw ice daily 3 each 4 Rktqfxmbtwn-Liommrtmw-Hmo C-Mn (GLUCOSAMINE 1500 COMPLEX PO) Take 1,500 [...] mg by mouth nightly. Respiratory Therapy Supplies [facility] Discontinue nebulizer. Fax to [facility]. [...] made to ensure accuracy; however, inadvertent computerized hvac residential service technician errors may be pre sent. documented [...] | | | | | [place], [place] | | | | | | [address] | | | | | | | [...]
--- OUTSIDE RECORDS SUMMARY | ~2019-12-07 | XMS | Encounter Summary ---
Demographics + + + | Address | [address] | | | [place] [address] | + + + | Home Phone [...] | | | | [place] [address] | | + + + + + | Juana Gasca | ECON | [address] | | | | | [place] | | | | | [address] | | + + + + + | Chad Gasca | ECON | Unknown | | + + + + + Care Team Providers + +------+ + | Care Supervisor Seaming Name | Role | Phone | + [...] | | | | | [place] [address] | | | | | | [phone] | | | +--------+ + + + [...] [place] | | | | | | [address] | | | | | | | [...]
--- OUTSIDE RECORDS SUMMARY | ~2019-12-07 | XMS | Encounter Summary ---
Demographics + + + | Address | [address] | | | [place] [address] | + + + | Home Phone [...] | | | | [place] [address] | | + + + + + | Juana Gasca | ECON | [address] | | | | | [place] | | | | | [address] | | + + + + + | Chad Gasca | ECON | Unknown | | + + + + + Care Team Providers + +------+ + | Care Heavy Coil Winder Name | Role | Phone | [...] [address] | | | | | [place] [address] | | [address] | | | | | IM[address] DFB | | [place], [place] | | | | | PLSE GEN | | [address] Phone: | | | | | W/REPL PLSE | | [phone] | | | | | GEN 1 LEAD | | Fax: | | | | | [place] | | [phone] | | | | | INSJ/RPLCMT | | | | | | | PERM DFB | | | | | | | W/TRNSVNS | | | | | | | LDS 1/DUAL | | | | | | | CHMBR [place] | | | | | | | [...] + + | 11/12/ | Anesthesia | [facility] | Belle Murray, | | | 2020 | Event | [facility] | PROGRAM MANAGER SLP [address] | | | | | LAB [address] | [place] [address] | | | | | [place], [place] | [phone] | | | | | [address] | | | | | | [phone] | | | +--------+ + + + + Anesthesia Record + + + + + | Procedure Name | Responsible | Anesthesia Start | Anesthesia Stop Time | | | Anesthesiologist | Time | | + + + + + | CV EP PM GEN CHANGE | Belle Murray, | 11/13/19 1248 | 11/13/19 1355 | | (Left ) | PROGRAM MANAGER SLP | | | + + + + [...] 1420 by | | eral | Wrist; ajeo-knd-rknhnc catheter | Bria Casanova RN | Krys [...] EVALUATION Serge Gasca 84 y.o. male 1935 [id number] Procedure(s) CV EP PM GEN CHANGE (Left [...] by Belle Murray CRNA 11/13/2019 1:56 PM LEGACY HEALTHElectronically signed by Belle Murray CRNA at 020 1:57 PM PDTAnesthesia Preprocedure Evaluation - Belle Murray CRNA - 11/13/2019 11: 31 AM PDT ANESTHESIA PREANESTHESIA EVALUATION Serge Gasca 84 y.o. male 1935 [id number] Procedure(s): CV EP PM GEN CHANGE (Left ) Medical,anesthesia, drug, allergy histories reviewed, NPO status verified. Labs reviewed. (-) perioperative beta-yumi/statin not given/taken, reason: not applicab le/Not taking Beta-Ymui. Review of Systems / Med History Anesthesia [...] Serge Rmbigg Gasca 84 y.o. male 1935 [id number] CV EP PM GEN CHANGE (Left ) [...] report from receiving team Patient Location: Other (general laborer procedure room) Condition: alert, responds to [...] team. Belle Murray CRNA 11/13/2019 1:55 PM LEGACY HEALTHElectronically signed by Belle Murray CRNA at 020 [...] | | | | | [facility] [place] | | | | | | [address] | | | | | | | [...]
--- OUTSIDE RECORDS SUMMARY | ~2019-12-07 | XMS | Encounter Summary ---
Demographics + + + | Address | [address] | | | [place] [address] | + + + | Home Phone [...] | | | | [place] [address] | | + + + + + | Juana Gasca | ECON | [address] | | | | | [place] | | | | | [address] | | + + + + + | Chad Gasca | ECON | Unknown | | + + + + + Care Team Providers + +------+ + | Care Industrial Court Magistrate Name | Role | Phone | + [...] + + | 04/03/ | Office | [facility] | Elif Weinstein, | Atrial fibrillation, | | 2019 | Visit | CARDIOLOGY BHUPINDER | [address] | chronic (HCC) | | | | [address] | [place], [place] | (Primary Dx); | | | | [place] [address] | [address] | Hypertension; | | | | [place] | | Obstructive sleep | | | | [address] | | apnea on BiPAP; S/P | | | | [phone] | | AVR (aortic valve | | [...] into the lungs 2 (two) times daily. Kxdgumuwcyl-Bzbhhhkwo-Xcs C-Mn (GLUCOSAMINE 1500 COMPLEX PO) Take 3,000 [...] Take 10 mg by mouth daily. [facility] e, Corley regulates warfarin (COUMADIN) 7.5 mg tablet Take [...] Hx Pacemaker/ICD: 08/30/2007, Guidshelby Millerignshan 1291, SN: [id number]. Last interrogation 11/19/2018 1 year, RV pacing [...] | | | | | [place] | | | | | | [address] | | | | | | | [...]
--- OUTSIDE RECORDS SUMMARY | ~2019-12-07 | XMS | Encounter Summary ---
Demographics + + + | Address | [address] | | | [place] [address] | + + + | Home Phone [...] | | | | [place] [address] | | + + + + + | Juana Gasca | ECON | [address] | | | | | [place] | | | | | [address] | | + + + + + | Chad Gasca | ECON | Unknown | | + + + + + Care Team Providers + +------+ + | Care Lepidopterist Name | Role | Phone | + +------+ + PCP | Unavailable | + +------+ + Encounter Details +--------+ + + + + | Date | Type | Department | Care Team | Description | +--------+ + + + + | 07/05/ | Hospital | [facility] | [place], | | | 2011 | Encounter | MED CTR XRAY [address] | [place] You MD | | | | | [place] | | | | | | [place] [address] | | | | | | [phone] | | | +--------+ + + + [...] | | | | | [place] | | | | | | [address] | | | | | | | [...] Performed At | + + + | [facility] Diagnostic Imaging Department | [facility] | | [address] [facility] | [facility] | | CT CHEST WITHOUT CONTRAST: [...] Transcribed Date/Time: | | | 07/06/2011 10:09 [employer]ified [employer] Ii Farmworker: <Electronically Signed | | | by Vin Reyes MD> 07/07/11 1834 | | + + + + + | Procedure Note | + + | Pal, Rad Conversion - 07/12/2013 4:40 PM [facility] | | Diagnostic Imaging Department | | [address] , [facility] | | | | | | | [...] | Transcribed Date/Time: 07/06/2011 10:09 | | [employer] Ii Farmworker: PONCE | | <Electronically Signed by Vin Reyes MD> 07/07/11 6102 | + + + +---------+ + + [...]
--- OUTSIDE RECORDS SUMMARY | ~2019-12-07 | XMS | Encounter Summary ---
Demographics + + + | Address | [address] | | | [place] [address] | + + + | Home Phone [...] | | | | [place] [address] | | + + + + + | Juana Gasca | ECON | [address] | | | | | [place] | | | | | [address] | | + + + + + | Chad Gasca | ECON | Unknown | | + + + + + Care Team Providers + +------+ + | Care Technical Account Manager Name | Role | Phone | [...] + + | 03/08/ | Office | [facility] | Yuri Raymond | Centrilobular | | 2019 | Visit | PULMONOLOGY [address] | Rush Raymond MD [address] | emphysema (HCC) | | | | [place] | [place] | (Primary Dx); | | | | [place], [place] | [place] [address] | Chronic obstructive | | | | [address] | [phone] | pulmonary disease, | | | | [phone] | | unspecified COPD | | | [...] might be dif ferent from the original. [facility] PULMONOLOGY [address] [place] [id number] HISTORY: Chief Complaint: I have been asked to assist in the pulmonary evaluation of Serge Zambrano an, 83 y.o. male, for COPD History of Present Illness: Interval history: "Serge Gasca is a 80 year old gentleman referred to me for COPD. He was previously fol lowing with Dr. La at [place] for his pulmonary issues. He is maintained [...] - REDO; Surgeon: Jassi Elizondo MD; Location: [facility] OR; Service: Cardiac; Laterality: N/A; OTHER SURGICAL HISTORY 03/10/2014 CYSTOSTOMY W/ BLADDER DILATION - Procedure: CYSTOSCOPY - DILATATION; Surgeon: Timothy badillo MD; Location: [facility]; Service: Cardiac; Laterality: N/A; [...] into the lungs 2 (two) times daily. Kuylgnqifea-Xupdbwzih-Tzh C-Mn (GLUCOSAMINE 1500 COMPLEX PO) (Taking) Take [...] Raymond MD Pulmonary and Critical Care Medicine [facility] Pulmonology documented in this encounter Plan of [...] | | | | | [place] | | | | | | [id number] | | | | | | | [...]
--- OUTSIDE RECORDS SUMMARY | ~2019-12-07 | XMS | Encounter Summary ---
Demographics + + + | Address | [address] | | | [place] [address] | + + + | Home Phone [...] | | | | [place] [address] | | + + + + + | Juana Gasca | ECON | [address] | | | | | [place] | | | | | [address] | | + + + + + | Chad Gasca | ECON | Unknown | | + + + + + Care Team Providers + +------+ + | Care Convenience Store Clerk Name | Role | Phone | [...] | | | | | [place] [address] | | | | | | [phone] | | | +--------+ + + + [...] [place] | | | | | | [address] | | | | | | | [...]
--- OUTSIDE RECORDS SUMMARY | ~2019-12-07 | XMS | Encounter Summary ---
Demographics + + + | Address | [address] | | | [place] [address] | + + + | Home Phone [...] | | | | [place] [address] | | + + + + + | Juana Gasca | ECON | [address] | | | | | [place] | | | | | [address] | | + + + + + | Chad Gasca | ECON | Unknown | | + + + + + Care Team Providers + +------+ + | Care Supervisor Core Shop Name | Role | Phone | + [...] + + | 12/02/ | Telephone | [facility] | Elif Hylton, | Medication Question | 2019 | | CARDIOLOGY [place] | [address] | (Enoxaparin) | | | | [address] | [place] | | | | | [place] | [address] | | | | | [address] | | | | | | [phone] | | | +--------+ + + + [...] Miscellaneous Notes Telephone Encounter - Pramod Carranza Cobol Engineer - 12/03/2019 3:32 PM PDTStart Lo venox 5 days prior to surgery, at that time stop warfarin. Restart Lovenox post surgery, and stay on until INR is 2.5. Informed Anh, she states understanding with no further questions. elephone Encounter - Pramod Carranza Cobol Engineer - 12/03/2019 3:32 PM PDT----- Message from [...] PDT To: MD Beata Brandtantonella Serge Morrisonn [id number] ----- Message ----- From: Elif Hylton MD [...] | | | | | [place] | | | | | | [address] | | | | | | | [...]
--- OUTSIDE RECORDS SUMMARY | ~2019-12-07 | XMS | Encounter Summary ---
Demographics + + + | Address | [address] | | | [place] [address] | + + + | Home Phone [...] | | | | [place] [address] | | + + + + + | Juana Gasca | ECON | [address] | | | | | [place] | | | | | [address] | | + + + + + | Chad Gasca | ECON | Unknown | | + + + + + Care Team Providers + +------+ + | Care Pulp Mill Operator Name | Role | Phone [...] + + | 10/29/ | Telephone | [facility] | Spenser Potter, | Cardiac Problem | | 2019 | | CARDIOLOGY JULIAN | [address] | | | | | [address] | [place], | | | | | [place] | [place] [address] | | | | | [address] | [phone] | | | | | [phone] | | | +--------+ + + + [...] 4:37 PM PDTPatient was scheduled for a [place] pacemaker implant procedure for November 10. Procedure instructions and info was reviewe d with patient. Patient stated understanding, had no further questions or concerns. Electron eric signed by Marva Lozoya V at 11/04/2019 4:38 PM PDTTelephone Encounter - Spenser Potter MD - 10/30/2019 4:30 PM PDTReceived notification of this patient needs his [place] Sci entific pacemaker changed out. It is [...] | | | | [place], [place] | | | | | | [address] | | | | | | | [...]
--- OUTSIDE RECORDS SUMMARY | ~2019-12-07 | XMS | Encounter Summary ---
Demographics + + + | Address | [address] | | | [place] [address] | + + + | Home Phone [...] | | | | [place] [address] | | + + + + + | Juana Gasca | ECON | [address] | | | | | [place] | | | | | [address] | | + + + + + | Chad Gasca | ECON | Unknown | | + + + + + Care Team Providers + +------+ + | Care Locomotive Driver Name | Role | Phone | [...] + + | 03/18/ | Refill | [facility] | Elif Hylton, | Medication Refill | | 2019 | | CARDIOLOGY JULIAN | [address] | | | | | [address] | [place] | | | | | [place] | [address] | | | | | [address] | | | | | | [phone] | | | +--------+--------+ + + + [...] [place] | | | | | | [address] | | | | | | | [...]
--- OUTSIDE RECORDS SUMMARY | ~2019-12-07 | XMS | Encounter Summary ---
Demographics + + + | Address | [address] | | | [place] [address] | + + + | Home Phone [...] | | | | [place] [address] | | + + + + + | Juana Gasca | ECON | [address] | | | | | [place] | | | | | [address] | | + + + + + | Chad Gasca | ECON | Unknown | | + + + + + Care Team Providers + +------+ + | Care Armored Truck Driver Name | Role | Phone | [...] | | | | | [place] [address] | | | | | | [phone] | | | +--------+ + + + [...] [place] | | | | | | [address] | | | | | | | [...]
--- OUTSIDE RECORDS SUMMARY | ~2019-12-07 | XMS | Encounter Summary ---
Demographics + + + | Address | [address] | | | [place] [address] | + + + | Home Phone [...] | | | | | [place] [address] | | + + + + + | Juana Gasca | ECON | [address] | | | | | [place] | | | | | [address] | | + + + + + | Chad Gasca | ECON | Unknown | | + + + + + Care Team Providers + +------+ + | Care Platform Power Technician Name | Role | Phone | [...] + + | 06/25/ | Office | [facility] [place] | Offenstein, | COPD (chronic | | 2014 | Visit | PULMONARY [address] | Florence You MD | obstructive | | | | [place], | | pulmonary disease) | | | | [place] [address] | | (Primary Dx); MARY | | | | [phone] | | (obstructive sleep | | | [...] test through [facility]. Call the [facility] before you pick it up to make sure they have a box available. You will chicken picker a box at the [facility]. Do the t est on BiPAP only. [...] He notes when he we nt to [place], he did not take his oxygen with [...] inhaler 1 puff inhaled tw ice daily Qdhvuxlnxsx-Lhjyqdifk-Lyj C-Mn (GLUCOSAMINE 1500 COMPLEX PO) Take 1,500 [...] made to ensure accuracy; however, inadvertent computerized fiber glass worker errors may be pre sent. documented [...] [place] | | | | | | [address] | | | | | | | [...]
--- OUTSIDE RECORDS SUMMARY | ~2019-12-07 | XMS | Encounter Summary ---
Demographics + + + | Address | [address] | | | [place] [address] | + + + | Home Phone [...] | | | | [place] [address] | | + + + + + | Juana Gasca | ECON | [address] | | | | | [place] | | | | | [address] | | + + + + + | Chad Gasca | ECON | Unknown | | + + + + + Care Team Providers + +------+ + | Care Reed Maker Name | Role | Phone | [...] | pulmonary disease, | | | | [place], | | unspecified COPD | | | | [place] [address] | | type (HCC) (Primary | | | | [phone] | | Dx); Obstructive | | | [...] He is currently on [facility] L[facility] ht bled in to his BiPAP. [...] the lungs Twice Daily. 3 each 3 Ijfoajzrkki-Pewzstnlo-Pet C-Mn (GLUCOSAMINE 1500 COMPLEX PO) Take 1,500 [...] Chronic obstructive pulmonary disease, unspecified COPD type ([facility]) J44.9 496 Doing well on current medications. He is very excited to start exercising again right now. He has lost a lot of weight following his valve replacement, and has since been steadily regaining it. 2. Obstructive sleep apnea on BiPAP G47.33 327.23 Reports good control and compliance, and no issues. 3. Nocturnal hypoxemia due to emphysema ([facility]) J43.9 492.8 We had tried weaning [...] made to ensure accuracy; however, inadvertent computerized it security consulting director errors may be pre sent. documented [...] [place] | | | | | | [address] | | | | | | | [...]
--- OUTSIDE RECORDS SUMMARY | ~2019-12-07 | XMS | Encounter Summary ---
Demographics + + + | Address | [address] | | | [place] [address] | + + + | Home Phone [...] | | | | [place] [address] | | + + + + + | Juana Gasca | ECON | [address] | | | | | [place] | | | | | [address] | | + + + + + | Chad Gasca | ECON | Unknown | | + + + + + Care Team Providers + +------+ + | Care Director East Coast Sales Name | Role | Phone | + +------+ + PCP | Unavailable | + +------+ + Encounter Details +--------+ + + + + | Date | Type | Department | Care Team | Description | +--------+ + + + + | 09/30/ | Hospital | [facility] | Jin Epps MD | CORONARY ATHEROSCLER | | 2005 - | Encounter | [facility] | [address] | [employer] VESSEL | | | | CARE FLOOR [address] | [place] [address] | | | 10/01/ | | [address] | [phone] | | | 2004 | | [place], [place] | | | | | | [address] | Ramo Fortune | | | | | [phone] | MD Jesus [address] | | | | | | [address] | | | | | | [place] [address] | | | | | | [phone] | | | | | | | [...] | | | | | | [facility] | | | | | | [address] | | | | | | | [...] Coronary atherosclerosis of unspecified type of vessel, kasaan or graft | + + documented in this encounter"
--- OUTSIDE RECORDS SUMMARY | ~2019-12-07 | XMS | Encounter Summary ---
Demographics + + + | Address | [address] | | | [place] [address] | + + + | Home Phone [...] | | | | [place] [address] | | + + + + + | Juana Ventura | ECON | [address] | | | | | [place] | | | | | [address] | | + + + + + | Chad Ventura | ECON | Unknown | | + + + + + Care Team Providers + +------+ + | Care House Player Name | Role | Phone | + [...] | | [address] | [place], [place] | | | | | [place], [place] | [address] | | | | | [address] | | | | | | [phone] | | | +--------+ + + + [...] | | | | | [place] [facility] [facility] | | | | | | [address] | | | | | | | [...] | maxP.00 mmHg TR Vmax: 2.44 m/s Tree Tapping Laborer: ROMAN | | | Authenticated by: Elif [place] Report Date/Time: 12-22-2016 | | | 18:57:07 | | + + + + + | Procedure Note | + + | Raudel Aguillon Conversion - 01/24/2019 6:35 PM PDT Patient Name: SERGE VENTURA | | of : 1935 Performing Physician: Elif | | [facility] INDICATIONS------ | | -----CHRONIC AFIB, [...] cmLVPWd: 1.30 | | cmLVOT Area: 4.44 cu5FQYA Diam: 2.37 cm%FS: 29.59 %EF(Teich): 55.93 %ESV(Teich): [...] | | (A-L): 88.66 ml/m2LAAs A2C: 40.42 ux0VCGLF A-L A2C: 192.14 mlLALs A2C: 7.21 | | cmLAAs A4C: 44.95 dy0MFSPT A-L A4C: 230.04 mlLALs A4C: 7.45 cmRAAs: 36.03 | | ee7ODQPF A-L: 181.00 mlRAESV MOD: 158.29 mlRALs: 6.08 cmTAPSE: 1.64 cmAV maxPG: | | 15.56 mmHgAV meanP.06 mmHgAV Vmax: 1.97 m/Lauren Vmean: 1.44 m/Lauren VTI: 38.62 | | cmAVA Vmax: 1.81 cm2AVA (VTI): 1.83 qk1BHCE Vmax: 0.00 cm2/m2AVAI (VTI): 0.00 | | [...] 29.00 mmHgTR maxP.00 mmHgTR Vmax: 2.44 m/s Tree Tapping Laborer: DBSAuthenticated by: | | [facility] Date/Time: 12-22-2016 18:57:07 IMPRESSION: 1. The left [...] |TR Vmax: 2.44 m/s | | | |Tree Tapping Laborer: DBS | |Authenticated by: Elif Hylton | [...]
--- OUTSIDE RECORDS SUMMARY | ~2019-12-07 | XMS | Encounter Summary ---
Demographics + + + | Address | [address] | | | [place] [address] | + + + | Home Phone [...] | | | | [place] [address] | | + + + + + | Juana Gasca | ECON | [address] | | | | | [place] | | | | | [address] | | + + + + + | Chad Gasca | ECON | Unknown | | + + + + + Care Team Providers + +------+ + | Care Dental Surgeon Name | Role | Phone | + [...] + | 12/28/ | Office | [facility] | [place], | COPD (chronic | | 2012 | Visit | PULMONARY [address] | Florence You MD | obstructive | | | | [place], | | pulmonary disease) | | | | [place] [address] | | ([facility]) (Primary Dx); | | | | [phone] | | Obstructive sleep | | | [...] an overnight oxy gen test through [facility]. You will poultry picker a box at the [facility], wear th e finger probe through the night and then return the box for a download the next day. Do the test on your BiPAP. Call the [facility] before you pick it up to make sure they ibarra ve a box available. Bring a download to your next appointment. documented in this encounter Progress Notes Florence La MD - 12/28/2012 2:37 PM PDTFormatting of this note might be differe nt from the original. Pulmonary Follow Up Note MD Jody [facility] [address] [place], [address] HPI Serge Gasca is a 77 y.o. male patient of Timo Lorenzana here today for follo w up of COPD. Since in last time, he had a brief hospitalization in October at [facility] for a COPD exace rbation. We [...] Take 40 mg by mouth every morning. Okroiiwqpvh-Qmffafslg-Aln C-Mn (GLUCOSAMINE 1500 COMPLEX PO) Take 1,500 [...] made to ensure accuracy; however, inadvertent computerized sawmill production worker errors may be pre sent. documented [...] [place] | | | | | | [address] | | | | | | | [...]
--- OUTSIDE RECORDS SUMMARY | ~2019-12-07 | XMS | Encounter Summary ---
Demographics + + + | Address | [address] | | | [place] [address] | + + + | Home Phone [...] | | | | [place] [address] | | + + + + + | Juana Gasca | ECON | [address] | | | | | [place] | | | | | [address] | | + + + + + | Chad Gasca | ECON | Unknown | | + + + + + Care Team Providers + +------+ + | Care Legal Transcriptionist Name | Role | Phone | + [...] | | | | | [place] [address] | | | | | | [phone] | | | +--------+--------+ + + + [...] [place] | | | | | | [address] | | | | | | | [...]
--- OUTSIDE RECORDS SUMMARY | ~2019-12-07 | XMS | Encounter Summary ---
Demographics + + + | Address | [address] | | | [place] [address] | + + + | Home Phone [...] | | | | [place] [address] | | + + + + + | Juana Gasca | ECON | [address] | | | | | [place] | | | | | [address] | | + + + + + | Chad Gasca | ECON | Unknown | | + + + + + Care Team Providers + +------+ + | Care Sole Leveler Name | Role | Phone | + +------+ + | Timo Lorenzana | PCP | | | MD | | | + +------+ + Encounter Details +--------+ + + + + | Date | Type | Department | Care Team | Description | +--------+ + + + + | 04/03/ | Orders Only | [facility] | Conversion | | | 2013 | | CARDIOLOGY [place] | Transaction, | | | | | [address] | Provider Unknown | | | | | [place], [place] | | | | | | [address] | | | | | | [phone] | | | +--------+ + + + [...] [place] | | | | | | [address] | | | | | | | [...]
--- OUTSIDE RECORDS SUMMARY | ~2019-12-07 | XMS | Encounter Summary ---
Demographics + + + | Address | [address] | | | [place] [address] | + + + | Home Phone [...] | | | | [place] [address] | | + + + + + | Juana Gasca | ECON | [address] | | | | | [place] | | | | | [address] | | + + + + + | Chad Gasca | ECON | Unknown | | + + + + + Care Team Providers + +------+ + | Care Travel Money Advisor Name | Role | Phone | [...] + + | 04/26/ | Telephone | [facility] | Alicja Lloyd, | Weight Gain | | 2019 | | CARDIOLOGY JULIAN Davies RN | | | | | [address] | | | | | | [place] | | | | | | [address] | | | | | | [phone] | | | +--------+ + + + [...] PSTReceived call from [facility]ass[facility] ku [facility] She stated that patient has had [...] [place] | | | | | | [address] | | | | | | | [...]
--- OUTSIDE RECORDS SUMMARY | ~2019-12-07 | XMS | Encounter Summary ---
Demographics + + + | Address | [address] | | | [place] [address] | + + + | Home Phone [...] | | | | [place] [address] | | + + + + + | Juana Gasca | ECON | [address] | | | | | [place] | | | | | [address] | | + + + + + | Chad Gasca | ECON | Unknown | | + + + + + Care Team Providers + +------+ + | Care Digital Campaign Manager Name | Role | Phone | [...] | | | | | [place] [address] | | | | | | [phone] | | | +--------+--------+ + + + [...] | | | | | | [facility] [place] | | | | | | [address] | | | | | | | [...]
--- OUTSIDE RECORDS SUMMARY | ~2019-12-07 | XMS | Encounter Summary ---
Demographics + + + | Address | [address] | | | [place] [address] | + + + | Home Phone | | + + + | Preferred Language | Unknown | + + + | Marital Status | | + + + | Confucianist Affiliation | 1013 | + + + | Race | Unknown | + + + | Ethnic Group | Unknown | + + + Author + + + | Author | [facility] | | | and [place] | + + + | Organization | [facility] | | | [...] | | | | [place] [address] | | + + + + + | Juana Gasca | ECON | [address] | | | | | [place] | | | | | [address] | | + + + + + | Chad Gasca | ECON | Unknown | | + + + + + Care Team Providers + +------+ + | Care Safety Equipment Testing Specialist Name | Role | Phone | [...] + + | 11/10/ | Telephone | [facility] | Spenser Potter, | Cardiac Problem | | 2019 | | CARDIOLOGY JULIAN | [address] | | | | | [address] | [place], | | | | | [place] | [place] [address] | | | | | [address] | [phone] | | | | | [phone] | | | +--------+ + + + [...] insurance did not approve it and a dmnf-xn-jlxs evaluation was needed". U nfortunately, I did not know anything about this. The rep was there today also ([facility]). I told him we would get this done on Monday, at 11:30 AM and he dominique berry show up at 10 AM. He has the insurance approval letter in his hands ([facility]). He understands the need to take [...] | | | | | [place] | | | | | | [id number] | | | | | | | [...]
--- OUTSIDE RECORDS SUMMARY | ~2019-12-07 | XMS | Encounter Summary ---
Demographics + + + | Address | [address] | | | [place] [address] | + + + | Home Phone [...] Author | [facility] [...] | | | | [place] [address] | | + + + + + | Juana Gasca | ECON | [address] | | | | | [place] | | | | | [address] | | + + + + + | Chad Gasca | ECON | Unknown | | + + + + + Care Team Providers + +------+ + | Care Title I Paraprofessional Name | Role | Phone | + +------+ + PCP | Unavailable | + +------+ + Encounter Details +--------+ + + + + | Date | Type | Department | Care Team | Description | +--------+ + + + + | 07/16/ | Hospital | [facility] | Enrique Graf, | VITREOUS HEMORRHAGE | | 2001 | Encounter | [facility] | [address] | ([facility]) | | | | OUTPATIENT | [place], [place] | | | | | PROCEDURES [address] | [address] | | | | | [address] | | | | | | [place], [place] | | | | | | [address] | | | | | | [phone] | | | +--------+ + + + [...] [place] | | | | | | [address] | | | | | | | [...]
--- OUTSIDE RECORDS SUMMARY | ~2019-12-07 | XMS | Encounter Summary ---
Demographics + + + | Address | [address] | | | [place] [address] | + + + | Home Phone [...] | | | | [place] [address] | | + + + + + | Juana Gasca | ECON | [address] | | | | | [place] | | | | | [address] | | + + + + + | Chad Gasca | ECON | Unknown | | + + + + + Care Team Providers + +------+ + | Care Cokeman Name | Role | Phone | + [...] + | 03/18/ | Refill | [facility] | Elif Hylton, | Medication Refill | | 2019 | | CARDIOLOGY JULIAN | [address] | | | | | [address] | [place] | | | | | [place] | [address] | | | | | [address] | | | | | | [phone] | | | +--------+--------+ + + + [...] [place] | | | | | | [address] | | | | | | | [...]
--- OUTSIDE RECORDS SUMMARY | ~2019-12-07 | XMS | Encounter Summary ---
Demographics + + + | Address | [address] | | | [place] [address] | + + + | Home Phone [...] | + + + + + | Frnaces Gasca | ECON | [place] | | | | | [place] [address] | | + + + + + | Juana Gasca | ECON | [address] | | | | | [place] | | | | | [address] | | + + + + + | Chad Gasca | ECON | Unknown | | + + + + + Care Team Providers + +------+ + | Care Financial Counselor Name | Role | Phone | [...] + + | 11/25/ | Procedure | [facility] | | Cardiac pacemaker in | | 2020 | visit | CARDIOLOGY [place] | | situ (Primary Dx) | | | | [address] | | | | | | [address] | | | | | | [place], [place] | | | | | | [address] | | | | | | [phone] | | | +--------+ + + + [...] MD : 1935 Primary cardiology provider: [place] Primary electrophysiology provider: Spenser Potter Mode of interrogation: Seen in cardiac device clinic Device: [employer] Battery Longevity: 10.5 years. RV Pacin% [...] arrhythmias noted. Testing performed by: Yesika Cadet, [employer] Reviewed by: GINGER Hinojosa documented in this [...] [place] | | | | | | [address] | | | | | | | [...] Primary cardiology | | | provider: Elif [facility] Primary electrophysiology provider: Spenser | | | Tariq Mode of interrogation: Seen in cardiac device | | | clinic Device: [employer] Battery Longevity: 10.5 | | | [...] performed by: Yesika Cadet, | | | [employer] Reviewed by: GINGER Hinojosa | | + + + + +---------+ + + | Performing | Address | City/State[facility] | Phone Number | | Organization | | | | + +---------+ + + | [facility] | | | | + +---------+ + + documented in this encounter Visit Diagnoses + + | Diagnosis | + + | Cardiac pacemaker in situ - Primary | + + documented in this encounter"
[~2019-12-07 21:14] MED LIST changes: -DEMADEX20 MG PO; +ONE-A-DAY MAXI1 EACH PO; +VITAMIN B-121000 MCG PO; +WARFARIN SODIUM10 MG PO
--- OUTSIDE RECORDS SUMMARY | 2019-12-07 21:18 | XMS ---
PreManage Notification: DENISE VENTURA Security Sterile Supply Technician Events No recent Security Events currently on file CRITERIA MET - Group Notification CARE PROVIDERS MED [facility]WAR[facility] 01/08/2018-Current PHONE: [phone] Tonya has no Care Guidelines for this patient. Angel VISIT COUNT (12 MO.) 4 [facility] Mccloud TOTAL 4 NOTE: Visits indicate total known visits. ED/UCC VISIT TRACKING (12 MO.) 12/07/2019 21:15 [facility] [place] TYPE: Emergency COMPLAINT: - BLOODY NOSE 09/17/2019 19:57 [facility] [place] TYPE: Emergency COMPLAINT: - LACERATION DIAGNOSES: - Laceration without foreign body of left lesser toe(s) without - Contact with sharp glass, initial encounter - Laceration without foreign body of left lesser toe(s) without - Allergy status to other antibiotic agents status - Type 2 diabetes mellitus without complications - Chronic obstructive pulmonary disease, unspecified - Personal history of nicotine dependence - Other detention (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 06/03/2019 21:27 [facility] [place] TYPE: Emergency COMPLAINT: - ELBOW SWELLING/PAIN/NON INJURY DIAGNOSES: - Pain in left elbow - Type 2 diabetes mellitus without complications - custodial (current) use of oral hypoglycemic drugs - Other equipment operator intermodal yard (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 - Allergy status to other drugs, medicaments and biological sub - Allergy status to sulfonamides status - Personal history of urinary calculi - Chronic obstructive pulmonary disease, unspecified - Olecranon bursitis, right elbow - custodial (current) use of anticoagulants - custodial (current) use of inhaled steroids - remote computer terminal operator (current) use of aspirin 12/27/2018 18:[address] [facility] [place] TYPE: Emergency COMPLAINT: - URINE PROBLEM DIAGNOSES: - Personal history of nicotine dependence - Allergy status to other drugs, medicaments and biological sub - Allergy status to sulfonamides status - Frequency of micturition - custodial (current) use of aspirin - Personal history of urinary calculi - Dysuria - Other equipment operator intermodal yard (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 - Presence of cardiac pacemaker - Type 2 diabetes mellitus without complications - Allergy status to other antibiotic agents status - custodial (current) use of anticoagulants INPATIENT VISIT TRACKING (12 MO.) No inpatient visits to display in this time frame [email or web address]
[2019-12-07] MEDS ORDERED: ENOXAPARIN100 MG/1 M SUB-Q (22:38)
--- NOTE | 2019-12-08 01:11 | NUR ---
PATIENT SETTLED INTO BED, SCD'S ON, COVID TEST IS BACK AND IS NEGATIVE, PATIENT USING URINAL AT BEDSIDE, A+O. VS STABLE AND PATIENT HAVING NO PAIN AT THIS TIME. LEFT LEG BRACE REMAINS IN PLACE. IV FLUIDS RUNNING AND IV WNL. PATIENT HAS HIS OWN CPAP ON. LIGHTS DOWN AND CALL LIGHT IN REACH.
--- NOTE | 2019-12-08 03:25 | NUR ---
PATIENT WAS RESTING QUIETLY ON CPAP, EYES CLOSED UNTIL VITAL AND ASSESSMENT. TRYING TO GO BACK TO SLEEP. LIGHTS DOWN. CALL LIGHT IN REACH.
--- NOTE | 2019-12-08 04:41 | NUR ---
PATIENT HAS GOTTEN SOME SLEEP SINCE ARRIVAL, JUST HELPED HIM REPOSITION HIS CPAP DUE TO AN AIR LEAK. PATIENT COMPLAINING OF NO PAIN. LEFT KNEE BRACE AND SCD'S REMAIN IN PLACE AND IV INFUSING WITHIN NORMAL LIMITS. CALL LIGHT IN REACH AND NO OTHER NEEDS AT THIS TIME.
[2019-12-08] MEDS ORDERED: NITROFURANTOIN50 MG PO (08:03)
--- NOTE | 2019-12-08 09:25 | NUR ---
MED REC COMPLETE
--- NOTE | 2019-12-08 10:06 | NUR ---
ASSESSMENT COMPLETED. UP IN RECLINER AT THIS TIME. CALL LIGHT IN REACH. DENIES OTHER NEEDS AT THIS TIME.
--- NOTE | 2019-12-08 12:05 | NUR ---
DISCUSSED MEDICATIONS WITH PRIYANKA NEWBERRY. VERBAL ORDERS READ BACK, PRIYANKA NEWBERRY/ Mae JOHNSON, RN TO RESTART METFORMIN 850 MG PO TID TAKEN AT HOME. PATIENT SITTING UP IN RECLINER AT THIS TIME. DENIES OTHER NEEDS AT THIS TIME. CALL LIGHT IN REACH. IV HEPARIN AND IV FLUIDS CONTINUE INFUSING AT THIS TIME.
--- NOTE | 2019-12-08 15:23 | NUR ---
ASSESSMENT COMPLETED. IV HEPARIN STOPPED NOW, WILL RESTART IN 1 HOUR FROM STOP TIME. HEPARIN RATE DECREASED TO 1400 UNITS PER HOUR AT TIME OF RESTART. NO CHANGES FROM AM ASSESSMENT. REMAINS UP IN RECLINER. DENIES PAIN AT THIS TIME. EDUCATED ON NEED TO OBTAIN MORE BLOOD AT 2000 THIS EVENING TO ENSURE HEPARIN IS AT CORRECT DOSE. VERBALIZES UNDERSTANDING.
--- NOTE | 2019-12-08 16:15 | NUR ---
SITTING UP IN RECLINER. WATER PROVIDED PER REQUEST. DENIES OTHER NEEDS AT THIS TIME. CALL LIGHT IN REACH.
--- NOTE | 2019-12-08 21:14 | NUR ---
heparin drip to be held x1h, and rate decreased to 200 units and labs redrawn in 6hr at 0200. iv sl at this time as pt is getting a hibiclens shower, new bed linen and clean gown and scds in place.
--- NOTE | 2019-12-08 21:36 | NUR ---
PATIENT IS TAKING SHOWER USING HIBICLENS SOAP. BED LINEN CHANGED.
--- NOTE | 2019-12-08 21:42 | NUR ---
STILL TAKING A SHOWER. COMFORTABLE
--- NOTE | 2019-12-08 22:20 | NUR ---
HEPARIN REDUCED TO 1200 UNIT AT THIS TIME, DOUBLE CHECKED WITH JOSIAH CHARGE NURSE. PT INSTRUCTED OF 0200 AM LABS. BACK IN BED, HOME CPAP IN PLACE, SCDS IN PLACE. IVF INFUSING W/O PROBLEMS, NO C/O PAIN. COOP WITH ASSESSMENT, BRUISING ALL OVER IN DIFFERENT STAGES OF HEALING
--- NOTE | 2019-12-09 03:26 | NUR ---
RESTING, CPAP IN PLACE, SCDS , IVF INFUSING, NPO SINCE MIDNIGHT FOR AM SURGERY, HEPARIN DRIP TO BE DC'D AT 0400. 0200 LAB RESULTS 84.1 NO CHANGES
--- NOTE | 2019-12-09 05:15 | NUR ---
PATIENT RESTING IN BED, AWAKES FOR VITALS TAKEN BY ALICIA HANKS. PATIENT CALL LIGHT IN REACH. NO FURTHER NEEDS AT THIS TIME.
--- NOTE | 2019-12-09 06:45 | NUR ---
PATIENT AMBULATED TO BATHROOM AND BACK TO BED. PATIENT RESTING, EYES CLOSED. BED ALARM ON. CALL LIGHT IN REACH. NO FURTHER NEEDS AT THIS TIME.
--- NOTE | 2019-12-09 07:40 | NUR ---
PT AWAKE AND RESTING IN BED AT TIME OF BEDSIDE REPORT
--- NOTE | 2019-12-09 09:50 | NUR ---
I visited with PT on [facility] before his surgery. I let him know that we care about our PTs and pray for them and grateful he choose [facility] for his surgery. We had a long visit and he shared about his life. He feels good about the surgery but still welcomed my prayers for the surgery and some other concerns he brought up. He will stay in the hospital after the surgery and I let him know I would check in on him on my next sift.
--- NOTE | 2019-12-09 10:14 | NUR ---
PT TO O/R AT 0915 VIA BED. PRE-OP EDUCATION PROVIDED QUESTIONS ANSWERED.
--- NOTE | 2019-12-09 10:30 | NUR ---
PATIENT OFF THE FLOOR. WILL CHECK BACK LATER.
--- NOTE | 2019-12-09 13:26 | NUR ---
PT BACK FROM O/R
--- NOTE | 2019-12-09 13:44 | NUR ---
PT ALERT AND UPBEAT AGREES HE IS HUNGRY ORDERS A DIVING JUDGE SALAD. PT STATES HIS KNEE HURTS A BIT AGREES HE'D LIKE TO HAVE A PAIN PILL. PT DOZES OFF INBETWEEN CONVERSATION AWAKENS TO VOICE
--- NOTE | 2019-12-09 15:32 | NUR ---
PT EATS 100% OF MEAL STATES HE FEELS GOOD. 5MG OXY EFFECTIVE FOR THE PAIN HE DESCRIBED IN HIS KNEE. PT REMAINS AWAKE WATCHING TV TALKING ON HIS PHONE. P/T IN TO WORK WITH HIM AT THIS TIME
--- NOTE | 2019-12-09 18:25 | NUR ---
PT EATS 100% OF EVENING MEAL, DOZING IN BED SITTING UPRIGHT. APPEARS COMFORTABLE, BREATHING EVEN AND UNLABORED
--- NOTE | 2019-12-09 20:10 | NUR ---
BED ALARM SOUNDING, RT AND VISUAL SUPERVISOR TO ROOM JUST BEFORE THIS RN. PT SITTING ON THE EDGE OF THE BED, ONE SCD CONNECTED, ONE UNCONNECTED. PT STATING HE WAS JUST GOING TO STAND AT BEDSIDE, NO WALKER AND VOID. ASSIST OF TWO FOR SAFETY, FWW AND CUEING FOR SAFETY GIVEN. ONCE BACK AND SETTLED IN BED, PT INSTRUCTED TO NOT GET UP AND TO USE CALL LIGHT WHICH IS WITHIN HIS REACH. FRESH ICE CRYO, SCD'S IN PLACE. BED ALARM PLACED.
--- NOTE | 2019-12-09 21:50 | NUR ---
PT RESTING IN BED WATCHING TV, CELL PHONE IN HAND. PT ASSESSMENT COMPLETE. PT ALERT AND ORIENTED, DENIES PAIN, NAUSEA, OR SOB. SCHEDULED MEDICATIONS ADMINISTERED. PT TOLERATED WELL. PAULETTE DRESSING TO L KNEE WITH SMALL AMOUNT OF SHADOWING PRESENT. GREEN OK BUTTON FLASHING ON PAULETTE BOX. ON Q PUMP PRESENT, SET TO 6. SCDS, TEDS, CRYO CUFF TO L KNEE. CMS INTACT TO ALL EXTREMITIES, PULSES PRESENT. HOME CPAP PRESENT AT BEDSIDE. PT STOOD AT BEDSIDE TO URINATE, TOLERATED WELL. DENIES FURTHER NEEDS AT THIS TIME. ICE WATER REFILLED. CALL LIGHT IN REACH.
--- NOTE | 2019-12-10 00:31 | NUR ---
PT RESTING IN BED WITH EYES CLOSED. RESPIRATIONS EVEN AND UNLBORED. PT APPEARS TO BE SLEEPING. DOES NOT WAKE WHILE LOOM SETTER IN DOORWAY. CALL LIGHT IN REACH.
--- NOTE | 2019-12-10 00:50 | NUR ---
CALL LIGHT ANSWERED. PT UP TO TOILET TO ATTEMPT A BM BUT WAS UNSUCCESSFUL. PT RETURNED TO BED. CRYO CUFF IN PLACE, SCDS REPLACED, PAULETTE AND ON CUE ON. NO FURTHER REQUESTS AT THIS TIME. CALL LIGHT WITHIN REACH, BED ALARM ON.
--- NOTE | 2019-12-10 02:10 | NUR ---
PT ASSESSMENT COMPLETE. PT WAKES EASILY. PT CONFUSED UPON WAKING, STATES "HOW'D YOU GET IN MY HOUSE". PT REORIENTS EASILY. DENIES PAIN, NAUSEA, OR SOB. PAULETTE DRESSING D/I. SMALL AMOUNT OF SHADOWING, UNCHANGED FROM PREVIOUS ASSESSMENT. GREEN OK FLASHING. ON Q IN PLACE AT 6. TEDS, SCDS, AND CRYO CUFF IN PLACE. CMS INTACT TO ALL EXTREMIES, PULSES PRESENT. PT STANDS AT BEDSIDE WITH 1 PA TO USE URINAL, TOLERATED WELL. IV FLUSHED, WNL. PT DENIES FURTHER NEEDS AT THIS TIME. ICE WATER AND CRYO REFILLED BY BUNDLE SHAKER. CALL LIGHT IN REACH.
--- NOTE | 2019-12-10 04:30 | NUR ---
PT FOUND SITTING AT EDGE OF BED, SMALL STATIONARY TABLE FOUND TO BE OVERTURNED WITH CRYOCUFF MACHINE SAT ON THE FLOOR. PT WRAPPED THE CORD OF SCDS AROUND THE TABLE. PT ALERT AND ORIENTED, RECALLS DISTRIBUTOR SALES CONSULTANT TELLING HIM TO CALL, AND PERIOD OF FORGETFULNESS AT LAST ASSESSMENT. PT ATTEMPTING TO REACH CPOX MACHINE, STATES "HOW DO I TURN THAT NOISE OFF". PT ASSISTED TO USE URINAL AT BEDSIDE. SMALL SKIN TEAR TO R FOREARM, ALLEVYN PLACED. PT DENIES FURTHER NEEDS AT THIS TIME. CALL LIGHT IN REACH. BED ALARM ACTIVE.
--- NOTE | 2019-12-10 05:26 | NUR ---
PT SLEPT WELL THIS SHIFT. PERIOD OF CONFUSION X 1 AFTER BEING AWOKE. PAIN WELL CONTROLLED WITH SCHEDULED MEDCIATIONS. NO C/O NASUEA OR SOB. HOME CPAP PRESENT AT BEDSIDE. PAULETTE DRESSING D/I WITH SMALL AMOUNT OF SHADOWING PRESENT TO SUPERIOR ASPECT, UNCHANGED THIS SHIFT. GREEN LIGHT FLASHES OK ON PAULETTE BOX. ON Q AT 6. TEDS, SCDS, CRYOCUFF PRESENT. USES URINAL AT BEDSIDE, URINE OUTPUT QUANTITY SUFFICIENT. 1PA WITH FWW. IV SL.
--- NOTE | 2019-12-10 06:02 | NUR ---
PT RESTING IN BED WITH CPOX IN PLACE APPROPRIATELY.PT WAKES EASILY TO VOICE FOR SCHEDULED MED ADMINISTRATION. PT RATES PAIN 5/10 TO L KNEE. STATES THAT HE THINKS TYLENOL WILL WORK FOR PAIN, WILL USE CALL LIGHT IF HE NEEDS STRONGER PAIN MEDICATION. PT DENIES FURTHER NEEDS AT THIS TIME. CALL LIGHT IN REACH.
--- NOTE | 2019-12-10 07:39 | NUR ---
PT AWAKE RESTING IN BED AT REPORT, DENIES DISCOMFORTS. NOC RN REPORTS SOME CONFUSION IN THE NIGHT, HE APPEARS NOT QUITE YESTERDAY MENTALLY, SCOPE PATCH REMOVED. DR CABRERA IN TO SEE PT, NOTIFIED HIM OF REMOVAL OF SCOPE PATCH HE SAYS THIS IS WHAT HE WOULD HAVE SUGGESTED. PT UP TO THE CHAIR, TRANSFERS INDEPENDANTLY WITH FWW AND DOES GREAT. SITTING IN THE CHAIR WITH COFFEE AND CALL LIGHT IN LAP WAITING FOR BREAKFAST.
--- NOTE | 2019-12-10 07:40 | NUR ---
PATIENT SITTING UP IN CHAIR. WITHE BOARD UPDATED. LINENS CHANGED. CALL LIGHT WITHIN REACH. NO OTHER NEEDS AT THIS TIME
--- NOTE | 2019-12-10 09:15 | NUR ---
CM assessment completed with Serge. He states he lives in a 1 story home with his of 50 years. He does not have stairs. He has two walkers, cane, and a Bipap from [facility]. 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 He has two sons who will assist him if needed. He states his currently has a back injury and is awaiting surgery. He feels they do well assisting each other and can meet their own needs. He was wanting to dc today, but discussed Dr. Su was planning for him to stay 1-2 days longer for his coagulation to stablize. Understanding stated. He denies needs for dc when cleared by Dr. Su.
--- NOTE | 2019-12-10 10:10 | NUR ---
PATIENT SITTING UP IN CHAIR. VITAL SIGNS AND I&O DONE. CALL LIGHT WITHIN REACH. NO OTHER NEEDS AT THIS TIME
--- NOTE | 2019-12-10 11:03 | NUR ---
PT TOLERATES 100% OF MORNING MEAL REMAINS UP IN THE CHAIR WITHOUT C/O. P/T IN TO WORK WITH HIM, THEN HE CONTINUES IN THE CHAIR CALL LIGHT AND NEEDED ITEMS IN REACH
--- NOTE | 2019-12-10 13:51 | NUR ---
PATIENT SITTING UP IN CHAIR. VITAL SIGNS AND I&O DONE. CALL LIGHT WITHIN REACH. NO OTHER NEEDS AT THIS TIME
--- NOTE | 2019-12-10 14:20 | NUR ---
PT WORKS WITH P/T THEN BACK TO CHAIR IN HIS ROOM. DENIES PAIN STATES HIS KNEE IS "JUST A LITTLE TIGHT" WATCHING TV, NEEDED ITEMS IN REACH
--- NOTE | 2019-12-10 14:41 | NUR ---
RECOMENDATION MADE TO CLINICAL PHARMACY TO REQUEST PATIENT HOME BREATHING REGIMEN BE CONTINUED DURING STAY.
--- NOTE | 2019-12-10 15:37 | NUR ---
CALL LIGHT ANSWERED. PATIENT SITTING UP IN CHAIR. PATIENT USES THE URINAL. ONE PERSON ASSISTING WITH WALKER. PATIENT BACKS TO CHAIR. CRYO MACHINE FILLED. CALL LIGHT WITHIN REACH. NO OTHER NEEDS AT THIS TIME
--- NOTE | 2019-12-10 15:40 | NUR ---
PT CONTINUES UP IN THE CHAIR TALKING ON THE PHONE WATCHING TV. DENIES PAIN OR NEEDS OF. PT AGREES HE WILL BE READY TO GO HOME TOMORROW
--- NOTE | 2019-12-10 17:56 | NUR ---
PT CONTINUES UP IN THE CHAIR EATS 100% OF EVENING MEAL. DENIES PAIN OR DISCOMFORTS
--- NOTE | 2019-12-10 18:04 | NUR ---
PATIENT SITTING UP IN CHAIR. VITAL SIGNS AND I&O DONE. CALL LIGHT WITHIN REACH. NO OTHER NEEDS AT THIS TIME
--- NOTE | 2019-12-10 19:36 | NUR ---
SHIFT REPORT RECEIVED FROM NURSE BISHOP. PT SITTING IN CHAIR. CRYO CUFF IN PLACE, LEG ELEVATED, PAULETTE AND ON CUE INTACT. PT HAS NO REQUESTS AT THIS TIME.
--- NOTE | 2019-12-10 20:10 | NUR ---
ASSESSMENT COMPLETE. PT IN CHAIR WITH LEG ELEVATED AND CRYO CUFF ON, PAULETTE DRESSING HAS SANGUINOUS DRAINAGE ALONG INCISION, PAULETTE FLASHING GREEN, ONQUE AT 4, SITA HOSE ON. CYRO CUFF ICE REFRESHED. VSS. PT RATES PAIN IN LEFT KNEE 3/10 AND STATES HE JUST HAS "PRESSURE" IN THE LEFT KNEE "NOT EXACTLY PAIN". PT IS TALKATIVE, ALERT AND ORIENTED. PT STOOD WITH WALKER TO USE URINAL WITH HELP FROM THIS NURSE. PT STATES HE WOULD LIKE TO STAY IN THE CHAIR AWHILE LONGER. CALL LIGHT PLACED WITH IN REACH.
--- NOTE | 2019-12-10 22:55 | NUR ---
CALL LIGHT ANSWERED. pt REPORTS HE HAS 7/10 PAIN IN LEFT KNEE. pt STATES HE BELIEVES HE OVERWORKED HIMSELF DURING PT. LEFT LEG IS TIGHT TO PALPATION ABOVE THE KNEE BUT UNCHANGED SINCE ASSESSMENT. pt IS NOW LAYING IN BED. PAULETTE DRESSING DRAINAGE UNCHANGED, PAULETTE FLASHING GREEN, SCDS ON, ONCUE AT 4, CRYO CUFF ON. pt REQUESTS PRN PAIN MEDS. 5MG OXYCODONE PROVIDED. CALL LIGHT WITHIN REACH, BED ALARM ON. NO FURTHER REQUESTS AT THIS TIME.
--- NOTE | 2019-12-11 01:27 | NUR ---
CALL LIGHT ANSWERED. PT REPORTS HE HAS PAIN 8/10 IN LEFT KNEE. PT REQUESTS PRN PAIN MEDS. WOUND DRESSING EVALUATED. PAULETTE DRESSING UNCHANGED, PAULETTE FLASHING GREEN, ON CUE SET AT 4, CRYO CUFF ON, SCDS ON. LEG SWELLING UNCHANGED FROM BEGINNING OF SHIFT. PEDAL PULSES INTACT AND STRONG. SUPPORT PLACED NEAR ANKLE TO KEEP LEG IN ALIGNEMENT. 5MG OXYCODONE PROVIDED. CALL LIGHT WITHIN REACH, BED ALARM ON. NO FURTHER NEEDS AT THIS TIME.
--- NOTE | 2019-12-11 02:26 | NUR ---
ROUNDS COMPLETE. PT SLEEPING. EVEN UNLABORED BREATHING NOTED. NO APPARENT SIGNS OF DISTRESS. CALL LIGHT WITHIN REACH.
--- NOTE | 2019-12-11 04:37 | NUR ---
PRN PAIN MEDICATION OXYCODONE WAS ADMINISTERED AT APPROXIAMETLY 2255 12/10/19 AND NOT 1055 12/10/19 STATED IN EMAR. MEDITECH WAS DOWN FOR SEVERAL HOURS 12/10/19-12/11/19 AND MEDICATIONS WERE MANUALLY ADDED THUS THE HOUR DISCREPANCY.
--- NOTE | 2019-12-11 07:02 | NUR ---
CALL LIGHT ANSWERED. PT REQUESTS PAIN MEDS. PRN OXYCODONE PROVIDED FOR PAIN 9/10 WITH MOVEMENT. PT STATES IF HE LAYS STILL, THE PAIN IS 3/10. STUDENT PA INFORMED AND WENT IN ROOM TO SEE PT. PRIOR TO THESE PRN MEDS, SCHEDULED TYLENOL GIVEN FOR PAIN 7/10. PT REPOSITIONED AND LEG STRAIGHTENED AND REINFORCED IN BED. CALL LIGHT PLACED WITHIN REACH OF PATIENT.
--- NOTE | 2019-12-11 07:20 | NUR ---
BEDSIDE HANDOFF REPORT RECEIVED FROM MARKET MAKER RN. PT RESTING IN BED. PT RATING PAIN 3/10 AT REST, PAIN INCREASES WITH MOVEMENT, DISCUSSED PAIN MANAGEMENT FOR THE DAY. PT DENIES NEEDS AT THIS TIME.
--- NOTE | 2019-12-11 08:13 | NUR ---
PT SITTING IN CHIAR, EATING BREAKFAST. PT CONTINUES TO RATE PAIN 3/10 AT REST, DR CABRERA TO BEDSIDE, INCREASED ONQ TO 6ML/HR, CONFIRMED TO GIVE LOVENOX WITH DECREASED H&H. PT ON ROOM AIR, LUNG SOUNDS CLEAR. PT WITH PACE MAKE, HEALING SCAR FROM RECENT REPLACEMENT. LEFT KNEE WITH PAULETTE DRESSING, MODERATE AMOUNT OF DRAINAGE, IGNACIA WRAP. SITA HOSE, CRYOCUFF AND SCDS IN PLACE. PT TOLERATING DIET, DENIES NAUSEA, BOWEL TONES ACTIVE. PT SALINE LOCKED. CMS INTACT, PT DENIES NUMBNESS OR TINGLING. DISCUSSED PLAN OF CARE FOR THE DAY, WILL CONTINUE TO MONITOR PAIN AND STAY ON TOP OF PAIN MEDICATION, PLAN FOR DC TOMORROW.
--- NOTE | 2019-12-11 10:20 | NUR ---
PT SITTING IN CHAIR, VISITING [facility]. PT RATING PAIN 3/10 AT REST, UANBLE TO WORK MUCH WITH P.T., RATED PAIN 10/10 WITH MOVEMENT. PT GIVEN 10 MG OXYCODONE PER ORDER. PT DENIES OTHER NEEDS AT THIS TIME.
--- NOTE | 2019-12-11 10:26 | NUR ---
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 He's in good spirits after his surgery. He stated that he is having some pain today but that the nurses were on top of his pain meds, which were administered during my visit. He seems well. I prayed for the pt at time of visit.
--- NOTE | 2019-12-11 12:00 | NUR ---
PT ASSISTED WITH LUNCH TRAY. PT RATES PAIN 3/10. PT DENIES OTHER NEEDS AT THIS TIME.
--- NOTE | 2019-12-11 13:00 | NUR ---
Spoke with Serge, he states he feels well. Knee is sore, denies need for nurse. States he is taking pain pills.
--- NOTE | 2019-12-11 13:09 | NUR ---
PATIENT GOT FRESH ICE WATER. CRYO CHECKED. STOOD WITH TWO PERSON ASSIT TO USE URINAL. WORKING WITH THERAPY. CALL LIGHT WITHIN REACH. NO FURTHER NEEDS AT THIS TIME.
--- NOTE | 2019-12-11 14:51 | NUR ---
PT CONTINUES TO RATE PAIN 10/10 WITH ACTIVITY, NOT ABLE TO AMBULATE WITH P.T. CALLED DR. CABRERA TO DISCUSS PAIN MANAGEMENT, ORDER TO INCREASE OXYCODONE DOSE TO 5-15MG Q3H PRN FOR PAIN AND GIVE 5MG OXYCODONE NOW. OXYCODONE GIVEN, DISCUSSED WITH PT THAT PAIN NEEDS TO BE BETTER CONTROLLED TO INCREASE ACTIVITY TOLERANCE, PT VERBALIZED UNDERSTANDING. PT DENIES OTHER NEEDS AT THIS TIME.
--- NOTE | 2019-12-11 16:30 | NUR ---
PT 1PA WITH FWW TO BATHROOM AND BACK TO CHAIR, PT RATIN GPAIN 8/10 WITH MOVEMENT AND 2/10 AT REST. PT DENIES OTHER NEEDS AT THIS TIME.
--- NOTE | 2019-12-11 18:00 | NUR ---
PT HAD INCREASED PAIN TODAY, OXYCODONE DOSE INCREASED TO 15MG, ONQ INCREASED BY DR. CABRERA TO 6ML/HR. PT ON ROOM AIR, LUNG SOUNDS CLEAR. TOLERATING REGULAR DIET, DENIES NAUSEA, BOWEL TONES ACTIVE, HAD BM TODAY. CMS INTACT, SCDS AND SITA HOSE IN PLACE. PAULETTE DRESSING TO LEFT KNEE, MODERATE AMOUNT OF SANGUIOUS DRAINAGE. PT UP WITH 1PA, UNABLE TO WALK WITH P.T. DUE TO PAIN. VOIDING QS. PLAN FOR DC TOMORROW PENDING INR AND PAIN CONTROL.
--- NOTE | 2019-12-11 19:47 | NUR ---
BEDSIDE REPORT RECEIVED FROM NURSE GUAMAN. PT IN CHAIR. STATES PAIN IS 2-3/10 WHEN RESTING. PT HAS NO NEEDS AT THIS TIME. CALL LIGHT WITHIN REACH.
--- NOTE | 2019-12-11 20:50 | NUR ---
ASSESSMENT COMPLETE. PAULETTE DRESSING SAME AMOUNT OF DRAINAGE; PAULETTE UNIT FLASHING GREEN, ON CUE AT 6; SMALL AMOUNT OF BLOOD AROUND INSERTION SITE; REINFORCED BY DAYSHIFT, UNCHANGED SINCE THEN. CRYO CUFF ICE REFRESHED AND CRYO CUFF IN PLACE. PT SITTING IN CHAIR, WOULD LIKE TO GO TO BED. RATES PAIN 7/10 WITH MOVEMENT, 3-4/10 SITTING STILL. LEFT LEG IS CURRENTLY ELEVATED IN RECLINER CHAIR. MEDS ADMINISTERED INCLUDING 10 MG PRN OXYCODONE. THIS NURSE CHOSE TO ADMINISTER 10MG PT WAS SPEAKING OF "WEIRD DREAMS" SINCE TAKING OXYCODONE REGULARLY (PT HAD SEVERAL DOSES OF OXYCODONE AT 15MG EACH TIME) WHEN PROMPTED, PT ELABORATED THAT "WEIRD DREAMS" WERE BELIEVING HE WAS LOST OUTSIDE OF HOSPITAL AND "WOKE UP" FROM HIS "DREAMS" AND THOUGHT HE WAS STANDING IN THE CORNER OF THE ROOM. PT BROUGHT TO BED WITH FWW AND 2P SBA WITH GAIT BELT. PT WAS QUITE UNSTABLE ON LEFT LEG. BEDSIDE TABLE, CALL LIGHT AND CELL PHONE WITHIN REACH.
--- NOTE | 2019-12-11 21:40 | NUR ---
PATIENT SITTING UP IN BED, FRESH ICE WATER AT BEDSIDE AND IN CRYO. PATIENT CALL LIGHT IN REACH, PM CARES COMPLETED. NO FURTHER NEEDS AT THIS TIME.
--- NOTE | 2019-12-11 23:29 | NUR ---
PT SET OFF BED ALARM. PT STATES HE COULD NOT FIND CALL LIGHT. PT NEEDS TO USE URINAL. ATTENDS ALREADY WET BUT PT WAS ABLE TO USE URINAL IN BED. PT REPOSITIONED AND CALL LIGHT PLACED WITHIN REACH AND PT INSTRUCTED THAT THERE IS ANOTHER LIGHT ON BED TO CALL NURSE. NO FURTHER NEEDS AT THIS TIME.
--- NOTE | 2019-12-12 00:59 | NUR ---
PT SET OFF BED ALARM. PT JUST TRYING TO REPOSITION HIMSELF WITH TRAPEZE. PT REPOSITIONED, NO FURTHER NEEDS AT THIS TIME. CALL LIGHT PLACED WITHIN REACH AND PT REINSTRUCTED HOW TO USE.
--- NOTE | 2019-12-12 05:03 | NUR ---
PATIENT SITTING UP IN BED RESTING, RN AT BEDSIDE, CRYO REFILLED. CALL LIGHT IN REACH. NO FURTHER NEEDS AT THIS TIME.
--- NOTE | 2019-12-12 05:18 | NUR ---
ASSESSMENT COMPLETE. PT WAS RESTLESS THROUGH THE NIGHT. IS AWAKE NOW AND ASKS FOR URINAL. PT TOOK CPAP OFF THROUGHOUT THE NIGHT; USED INTERMITTENTLY. PAIN IS AT 2-3/10 WHILE LAYING STILL. PAULETTE INTACT, ONCUE INTACT, CRYO CUFF ON, SCDS ON. CALL LIGHT WITHIN REACH, BED ALARM ON.
--- NOTE | 2019-12-12 05:21 | NUR ---
PT HAD A SEEMINGLY RESTLESS NIGHT BY THE AMOUNT OF TIMES HE SET OFF THE BED ALARM. PT REPEATEDLY TRIED TO POSITION HIMSELF COMFORTABLY AND WOULD INEVITABLY SET OFF BED ALARM. PT RATES HIS LEFT KNEE PAIN 2-3/10 WHILE LYING STILL. PT CAN ONLY SAY THAT PAIN "GOES UP QUITE A BIT" IF HE MOVES HIS LEFT LEG. PAULETTE DRESSING REMAINS UNCHANGED, PAULETTE UNIT FLASHING GREEN, ONCUE REMAINS AT 6 AND DRAINAGE FROM ONCUE INSERTION ALSO REMAINS UNCHANGED. SCDS AND CRYO CUFF IN PLACE. PT REQUESTED OXYCODONE ONLY ONCE THIS SHIFT WHICH 10MG WAS GIVEN D/T "DREAMS" PT WAS HAVING. PATIENT DID REMAIN ORIENTED THIS SHIFT. LIGHT BRUISING NOTED INNER THIGH OF LEFT LEG. VSS.
--- NOTE | 2019-12-12 07:45 | NUR ---
0705: Report received from Alesia MILES. Pt resting in his bed with his alarm on and his call shanks within reach. Scd's on and running at well as his cryocuff. Pt states his pain is tolerable at this time.
--- NOTE | 2019-12-12 08:10 | NUR ---
Spoke with Serge. He cont. to complain of increased stiffness with pain in his knee. He informs me, Dr. Su is monitoring his blood, to get the numbers right. States his son is here helping his and will assist him when he discharges.
--- NOTE | 2019-12-12 09:05 | NUR ---
LEFT KNEE AND GROIN NOTED TO HAVE SOME SWELLING AND BRUISING WITHOUT ANY S/S OF INFECTION NOTED. DRESSING INTACT WITH OLD DRAINAGE NOTED. PEDAL PULSE ON THE LEFT +2 WITH NO CIRCULATION PROBLEMS NOTED. SITA HOSE ON WELL CRYO CUFF. ON Q AND PAULETTE ON AND RUNNING. PT STATES HIS LEFT KNEE PAIN IS A 3 WHICH IS TOLERABLE FOR HIM. PT SITTING UP IN HIS CHAIR AND PHYSICAL THERAPY JUST ARRIVED TO WORK WITH HIM. NO OTHER PROBLEMS NOTED AT THIS TIME. SEE ASSESSMENT.
--- NOTE | 2019-12-12 11:02 | NUR ---
PT SLEEPING WITH HIS LEGS ELEVATED AND HIS CALL VIRGEN WITHIN REACH.
--- NOTE | 2019-12-12 13:00 | NUR ---
PT SITTING IN HIS CHAIR WITH HIS LEGS ELEVATED, SITA GIBBS, CRYO CUFF, PAULETTE, ON Q ALL ON AND WORKING WITHOUT DIFFICULTY. PT STATES HIS PAIN IS UNDER CONTROL AT A 2/10 IN HIS LEFT KNEE AND HE DENIES ANY NEEDS AT THIS TIME. SEE ASSESSMENT.
--- NOTE | 2019-12-12 14:34 | NUR ---
PT WORKING WITH PHYSICAL THERAPY.
--- NOTE | 2019-12-12 15:26 | NUR ---
Swelling remains pt's upper left thigh. His legs are elevated and the cryo cuff remains in place, scd are on and running. Pedal pulse on the left foot is +2 and the incisional dressing remains unchanged and no noted s/s of infection around the dressing edges. Pt states his pain remains under control while at rest at a 3/10.
--- NOTE | 2019-12-12 16:50 | NUR ---
Pt oriented to person, place and time and able to answer all questions.
--- NOTE | 2019-12-12 17:23 | NUR ---
PT SITTING IN HIS CHAIR EATING HIS DINNER AND DENIES ANY PROBLEMS OR NEEDS AT THIS TIME.
--- NOTE | 2019-12-12 18:37 | NUR ---
PT HAD BEEN DOING WELL TODAY WITH ACCEPTABLE PAIN CONTROL AND NO CHANGE IN CONDITION UNTIL THIS LATE AFTERNOON. THE PT NOW HAS A TEMP OF 100.0. HE USED HIS IS AND IT DID NOT CHANGE. THE ORDERED UA WAS RECENTLY SENT WITH NO RESULTS YET. THE PT'S LEFT LEG SWELLING APPEARS TO HAVE INCREASED AND THE THIS LEG NOW HAS MORE NOTED HEAT. CAP REFILL AND PULSE REMAINS GOOD. THE PT DENIES ANY INCREASE IN PAIN. HIS OTHER VITALS REMAINS WNL. CRYO CUFF HAS BEEN ON ALL SHIFT AND REMAINS FULL OF ICE WATER. PAULETTE AND ON Q ON AND RUNNING. SITA SAI AND SCD'S REMAIN ON. DR CABRERA WAS CALLED AND UPDATED WITH NEW ORDERS RECEIVED. PT NOW HAVING BLOOD CULTURES DRAWN.
--- NOTE | 2019-12-12 19:00 | NUR ---
SHIFT REPORT RECEIVED FROM BEATRICEMEJACQUELINE PARSONS AT BEDSIDE. PT AWAKE AND RESTING IN BED, PAULETTE DRESSING IN PLACE AND INTACT. SOME OLD SEROSANGUINEOUS SHADOWING, WILL MONITOR. SKIN WARM TO THE TOUCH. PER GINGER PARSONS, BLOOD CULTURES RECENTLY COLLECTED. SCD'S AND SITA HOSE IN PLACE. PT DENIES NEEDS AT THIS TIME, CALL LIGHT IN REACH AND BOARD UPDATED.
--- NOTE | 2019-12-12 19:40 | NUR ---
WITH THE HELP OF ALICIA LINO WE HELPED HIM INTO THE BATHROOM WITH HIS FWW. HE GOT VERY TIRED AND UNSTEADY ON THE WAY BACK. WE PUT THE BATH CHAIR BEHIND HIM AND ROLLED HIM CLOSER TO HIS CHAIR. HE STOOD UP WITH HIS FWW AND PIVOTED BACK TO HIS CHAIR. HE WAS VERY WINDED FROM THE WALK. BEDSIDE TABLE AND CALL LIGHT IN REACH. CRYO PUT BACK ON AND FILLED WITH NEW ICE. FRESH ICE WATER GIVEN. PT NEEDS NOTHING MORE AT THIS TIME.
--- NOTE | 2019-12-12 20:54 | NUR ---
ASSESSMENT COMPLETE, VSS. PT DEMONSTRATED USE OF IS, ORAL TEMP 98.7. DR CABRERA UPDATED ON VS AND MOST RECENT LACTIC ACID. NO NEW ORDERS, WILL UPDATE DR CHERY AND NOTIFY RICK IF VIK PLACES NEW ORDERS. DISCUSSED PT'S PLATELET AND H&H VALUES, PER DR CABRERA OKAY TO CONTINUE CURRENT SCHEDULED ENOXAPARIN. WILL MONITOR. THIS RN THEN SPOKE TO DR CHERY AND UPDATED HIM OF 100.0 TEMP ON DAYSHIFT, CULTURES, AND MOST RECENT TEMP. MD THINKS ELEVATED LACTIC COULD BE RELATED TO METFORMIN, NO NEW ORDERS. SCHEDULED MEDS GIVEN (SEE EMAR). PT REPORTS TOELRABLE 3/10 PAIN, SCHEDULED BM MEDS PT HAD RECENT MEDIUM BM ON DAYSHIFT.PAULETTE DRESSING INTACT, GREEN OKAY LIGHT FLASHING. NO NEW SHADOWING OR DRAINAGE NOTED. CALL LIGHT IN REACH.
--- NOTE | 2019-12-12 22:23 | NUR ---
pt REQUESTED TO GET INTO BED. THIS DRY COLOR MIXER SUGGESTED USING THE URINAL BEFOREHAND, pt VOIDED 100ccs. FRESH ICE WATER GIVEN, CRYO CUFF REAPPLIED. NOTHING FURTHER NEEDED.
--- NOTE | 2019-12-12 22:25 | NUR ---
SCHEDULED TYLENOL GIVEN FOR 3-4/10 PAIN (SEE EMAR). PT IN BED, BIPAP IN PLACE. NO FURTHER NEEDS, CALL LIGHT IN REACH. RT AWARE OF BIPAP PLACEMENT.
--- NOTE | 2019-12-13 00:25 | NUR ---
PT ATTEMPTING TO VOID, TYPESETTING SUPERVISOR IN ROOM ASSISTING PT.
--- NOTE | 2019-12-13 02:00 | NUR ---
THIS RN IN ROOM TO ANSWER CALL LIGHT, 200 MLS OUTPUT VIA URINAL. DRY ATTENDS IN PLACE. ASSESSMENT COMPLETE, PT REPORTS TOLERABLE 2/10 PAIN AT REST. REPORTS INCREASED PAIN W/ MOVEMENT, DENIES NEED FOR PAIN MEDICATION AT THIS TIME. WILL MONITOR. PAULETTE DRESSING INTACT, GREEN OKAY LIGHT FLASHING. NO NEW SHADOWING OR DRAINAGE NOTED. CMS INTACT, BILATERAL PEDAL PULSES NOTED. IGNACIA WRAP IN PLACE WITH CYRO CUFF. GENERALIZED SWELLING REMAINS NOTED, WARMTH APPEARS TO BE IMPROVING. WILL MONITOR. O2 SAT LOW 90'S WHILE PT REPOSITIONS AND INTERACTS W/ VEST MAKER, HR 60'S. NO FURTHER NEEDS, CALL LIGHT IN REACH. BOARD UPDATED.
--- NOTE | 2019-12-13 05:31 | NUR ---
ASSESSMENT COMPLETE, SCHEDULED THYROID MED GIVEN (SEE EMAR). PT DENIES PAIN OR NAUSEA. NO CHANGES IN NEURO ASSESSMENT, VS AND I&O'S ALSO DONE. BED ALARM ON AND CALL LIGHT IN REACH.
--- NOTE | 2019-12-13 06:31 | NUR ---
PT'S GLASSES FELL FROM TABLE DURING SHIFT. LEFT SIDE POPPED OUT FROM FRAME. UNABLE TO UNSCREW LEFT SIDE SMALLEST GLASSES SCREWDRIVER AT RN STATION IS TOO BIG TO PROPERLY UNSCREW AND TIGHTEN GLASSES BACK IN PLACE. GLASSES AND EYE PIECE PLACED IN [place]AGGIE AT BEDSIDE. PT TO CALL SON TODAY AND HAVE HIM TAKE GLASSES TO HAVE FIXED.
--- NOTE | 2019-12-13 07:19 | NUR ---
H&H RESULTS CALLED TO DR CHERY, NEW ORDERS RECEIVED.
--- NOTE | 2019-12-13 07:39 | NUR ---
0700: REPORT RECEIVED FROM [facility] MILES. PT RESTING IN HIS BED WITH NO COMPLAINTS AT THIS TIME. H&H RESULTS WERE CALLED TO DR CHERY. PT BEING TYPED AND CROSSED AT THIS TIME. CALL VIRGEN WITHIN REACH.
--- NOTE | 2019-12-13 08:43 | NUR ---
PT RESTING IN HIS BED WITH HIS FEET ELEVATED. SCD'S, SITA GIBBS, PAULETTE, ON Q, CRYO CUFF ALL ON AND WORKING CORRECTLY. THE INCISION SITE WARMTH IS DECREASED FROM YESTERDAY EVENING WHEN I LAST SAW HIM, THE SWELLING REMAINS BUT IS ALSO DECREASED. HIS WBC'S HAVE SLIGHTLY DECREASED FROM HIS LAST DRAW WELL. HIS H&H IS DECREASED AND HE IS BEING TYPED AND CROSSED AT THIS TIME FOR THE ORDERED TRANSFUSION. THE PT WAS INFORMED OF THIS AND IS IN AGREEMENT WITH THE PLAN. THE CONSENT IS ALREADY PRESENT IN THE CHART. THE PT STATES HIS PAIN IS A 2/10 AT REST AT THIS TIME. SEE ASSESSMENT FOR A FULL UPDATE. WILL CONTINUE TO MONITOR.
--- NOTE | 2019-12-13 09:00 | NUR ---
Spoke with Serge. Pain in knee. Will get blood today. Denies other needs.
--- NOTE | 2019-12-13 09:58 | NUR ---
Pt attempted to use his urinal while in bed and he spilled it. The pt was cleaned up then ambulated to his chair with two person assist and the use of his wc. He is unsteady on his feet. He states his pain increased to a 10 but quickly returned to a 2-3 once sitting. Bedding changed at this time. Pt now talking on the phone and his call shanks is within reach.
--- NOTE | 2019-12-13 10:19 | NUR ---
1010: FIRST UNIT OF PRBC'S STARTED ORDERED. PT CONTINUES TO DENY AND SYMPTOMS OF A REACTION AT THIS TIME.
--- NOTE | 2019-12-13 10:36 | NUR ---
PATIENT UP IN CHAIR. VITALS AND I&OS CHARTED, CRYO REFILLED. GARBAGE EMPTIED. CALL LIGHT IN REACH.
--- NOTE | 2019-12-13 10:48 | NUR ---
Temp is now 99.7. Dr Duarte was called and notified. Pt denies any reaction symptoms. Order received to continue the transfusion and continue to monitor. Pt already receiving scheduled tylenol.
--- NOTE | 2019-12-13 10:58 | NUR ---
PT has been using his IS and his temp is now 98.4.
--- NOTE | 2019-12-13 13:21 | NUR ---
PT SLEEPING IN HIS CHAIR AND WAKES TO VOICE AND HE DENIES ANY NEW PROBLEMS. BLOOD TRANSFUSION CONTINUES WITHOUT DIFFICULTY. PT'S PAIN IS A 2/10. SWELLING AND BRUISING AND DRESSING UNCHANGED FROM THIS AM ASSESSMENT. CRYO, TEDS, SCDS, PAULETTE, AND ON Q ALL ON AND FUNCTIONING WELL.
--- NOTE | 2019-12-13 13:40 | NUR ---
Patient has therapeutic INR = 2.8. Enoxaparin 100mg sub-q BID bridge is discontinued
--- NOTE | 2019-12-13 13:42 | NUR ---
REPORT GIVEN TO ARLEEN MILES.
--- NOTE | 2019-12-13 13:51 | NUR ---
PT IS SITTING UP IN RECLINER, ALERT, ORIENTED TO PLACE, SURGERY, KEEPS ASKING WHO IS OUT IN LIVING ROOM POINTING TO HALLWAY, IVF AT TKO UNTIL 2ND UNIT OF BLOOD CAN BE OBTAINED FROM LAB. CALL LIGHT IN EASY REACH, DENIES NEED TO USE URINAL. STATES HE IS COMFORTABLE.
--- NOTE | 2019-12-13 15:09 | NUR ---
CRTO CUFF AND ICE WATER REFILLED. PATIENT IN CHAIR, CALL LIGHT IN REACH
--- NOTE | 2019-12-13 17:12 | NUR ---
PATIENT SITTING UP IN CHAIR, FAMILY IN ROOM. FRESH ICE WATER GIVEN, CRYO CUFF REFILLED. CALL LIGHT IN REACH. NO OTHER NEEDS
--- NOTE | 2019-12-13 18:51 | NUR ---
COMPLETED 2ND UNIT OF BLOOD, 3RD UNIT STARTED, 2 PERSON ASSIST TO STAND USING FWW AND TAKE 5 STEPS TO BED, POSITIONED FOR COMFORT, CRYOCUFF IN PLACED, PICCO DRSG WITH NO NEW SHADOWING, STATES HE IS COMFORTABLE, CALL LIGHT IN EASY REACH.
--- NOTE | 2019-12-13 19:15 | NUR ---
SHIFT REPORT RECEIVED FROM DAYSNCFT GINGER BACON AT BEDSIDE. PT RESTING QUIETLY IN BED, EYES CLOSED. RR EVEN AND UNLABORED. BLOOD INFUSING AT 150MLS/HR, SITE WNL. NO DISTRESS NOTED, PT APPEARS COMFORTABLE. CALL LIGHT IN REACH.
--- NOTE | 2019-12-13 21:15 | NUR ---
BLOOD INFUSION COMPLETE, FORM COMPLETED AND SENT TO LAB. VSS, PT DENIES S/SX OF INFUSION REACTION. ASSESSMENT COMPLETE, PT REPORTS TOLERABLE 2-3/10 PAIN, DENIES NAUSEA. AWOKE EASILY TO VOICE, DISORIENTED TO PLACE AND TIME, RESOLVED QUICKLY. PAULETTE DRESSING INTACT, NO NEW SHADOWING. GREEN OKAY LIGHT FLASHING. PT DENIES NUMBNESS AND TINGLING. SCD'S AND SITA HOSE IN PLACE. CALL LIGHT IN REACH.
--- NOTE | 2019-12-13 22:30 | NUR ---
PT RESTING IN BED WITH EYES CLOSED, RR EVEN AND UNLABORED. HOME SLEEP MACHINE IN PLACE, NO DISTRESS NOTED. CALL LIGHT IN REACH.
--- NOTE | 2019-12-14 01:08 | NUR ---
ASSESSMENT COMPLETE, PT FOUND TO BED INCONTINENT OF BOTH URINE AND LIQUID BM. PT UP 2PA WITH FWW TO BS, UNSTEADY ON FEET. SABA CARE DONE AND PT BACK TO BED. VOIDED VIA URINAL. AWOKE EASILY TO VOICE, DISORIENTED TO TIME. REOREINTED EASILY. SHAKING NOTED, ORAL TEMP AFEBRILE, 98.4. NO CHANGES TO PAULETTE DRESSING, GREEN OKAY LIGHT FLASHING. SITA HOSE AND SCD'S IN PLACE. WARM BLANKET PROVIDED, CALL LIGHT IN REACH.
--- NOTE | 2019-12-14 02:05 | NUR ---
PT RESTING QUIETLY IN BED, EYES CLOSED. RR EVEN AND UNLABORED. HOME SLEEP MACHINE IN PLACE, NO SHIVERING OR SHAKING NOTED. PT APPEARS COMFORTABLE AND RELAXED. CALL LIGHT IN REACH.
--- NOTE | 2019-12-14 03:45 | NUR ---
PT RESTING IN BED WITH EYES CLOSED AND HOME SLEEP MACHINE IN PLACE. RR EVEN AND UNLABORED, NO DISTRESS NOTED. APPEARS COMFORTABLE, CALL LIGHT IN REACH.
--- NOTE | 2019-12-14 05:38 | NUR ---
PT UP 2PA WITH FWW TO BSC AND BACK TO BED, PT MORE STEADY THIS TIME. SCHEDULED THYROID AND TYLENOL GIVEN FOR 5/10 PAIN IN LEFT KNEE (SEE EMAR). NO CHANGE IN PAULETTE DRESSING, GREEN OKAY LIGHT FLASHING. SCD'S AND SITA HOSE IN PLACE. FRESH WATER AND COFFEE AT BEDSIDE. NO FURTHER NEEDS, CALL LIGHT IN REACH.
--- NOTE | 2019-12-14 09:00 | NUR ---
2 PERSON ASSIST USING FWW TO STAND AND TRANSFER TO RECLINER FOR BREAKFAST, GOOD APPETITE, STATES PAIN IS MOSTLY WITH ACTIVITY, GOOD CMS TO LEG/FOOT, DRSGS WITH OLD SHADOWING AND PICCO DRSG INTACT AND FLASHING GREEN. MUCH BETTER SPIRITS THIS AM, ORIENTED, TALKING ON PHONE WITH FAMILY. CALL LIGHT IN EASY REACH.
--- NOTE | 2019-12-14 10:30 | NUR ---
PATIENT SITTING UP IN CHAIR. VITAL SIGNS AND I&O DONE. CRYO MACHINE FILLED. ICE WATER GIVEN. CALL LIGHT WITHIN REACH. NO OTHER NEEDS AT THIS TIME
--- NOTE | 2019-12-14 11:00 | NUR ---
DR CABRERA IN TO SEE PT, ON Q-PUMP DC'D AT THIS TIME, PT IS WORKING WITH THERAPY AT THIS TIME.
--- NOTE | 2019-12-14 14:12 | NUR ---
PATIENT RESTING IN BED. VITAL SIGNS AND I&O DONE. CALL LIGHT WITHIN REACH. NO OTHER NEEDS AT THIS TIME
--- NOTE | 2019-12-14 14:13 | NUR ---
PT REQUESTED PAIN MEDICATION FOR LKNEE ACHING, REPOSITIONED AND OCYCODONE GIVEN, STATES HE IS GONNA TAKE ANAP BEFORE DINNER. HAS BEEN ON PHONE WITH HIS . CRY IS ON KNEE, SCDS ON.
--- NOTE | 2019-12-14 18:09 | NUR ---
PT HAS HAD A GOOD DAY, ABLE TO WALK INTO [place] WITH THERAPY TODAY, DOES FATIGUE BUT IMPROVING, C/O R KNEE STIFFNESS BUT DR CABRERA AWARE AND FEELS THIS WILL IMPROVE WELL SWELLING GOES DOWN, LESS CONFISION TODAY, GOOD PAIN CONTROL WITH OXYCODONE, ON QPUMP DC'D. USING CALL LIGHT APPROP. GOOD APPETITE.
--- NOTE | 2019-12-14 18:09 | NUR ---
PATIENT RESTING IN BED. VITAL SIGNS AND I&O DONE. PATIENT HAS HIGH TEMPERATURE. RN NOTIFIED. CRYO MACHINE FILLED. CALL LIGHT WITHIN REACH. NO OTHER NEEDS AT THIS TIME
--- NOTE | 2019-12-14 19:17 | NUR ---
SHIFT REPORT RECEIVED FROM ARLEEN MILES. PT RESTING IN BED, WATCHING TV. NO NEEDS AT THIS TIME. PAULETTE BLINKING GREEN, CRYO CUFF ON. CALL LIGHT IN REACH.
--- NOTE | 2019-12-14 21:38 | NUR ---
CHANGED PT'S ATTENDS AND GOWN. FRESH ICEWATER PROVIDED AND NEW ICE IN CRYO. SNACK GIVEN PER PT'S REQUEST. HE DENIES FURTHER NEEDS AT THIS TIME. CALL LIGHT IS CLOSE.
--- NOTE | 2019-12-14 21:51 | NUR ---
ASSESSMENT, VS AND I&O COMPLETED. SCHEDULED MEDS PROVIDED. PAIN 2/10 IN LEFT KNEE, CMS INTACT. SCATTERED BRUISING NOTED. IV WNL, CDI, FLUSHED WELL. LUNGS CLEAR, BOWEL TONES ACTIVE. HEART SOUNDS HAVE A CLICK. CRYO CUFF ON, SCD ON PAULETTE GREEN, DRIED BLOOD ON ABOUT HALF THE DRESSING. ALLEVYN NOTED ON RIGHT ELBOW, CDI. NO OTHER NEEDS AT THIS TIME. CALL LIGHT IN REACH.
--- NOTE | 2019-12-14 23:02 | NUR ---
PT UP BSC 2PA WITH FWW WITH HELP FROM GINGER SPENCER. PT HAD BM AND VOID X1. PT BACK TO BED, CYRO CUFF IN PLACE. LEFT SCD ROLLED DOWN TO AVOID INCISION, CUT TO RELIEVE PRESSURE. PRN OXYCODONE GIVEN FOR 10/10 PAIN IN LEFT KNEE (SEE EMAR). NO FURTHER NEEDS, CALL LIGHT IN REACH. GINGER CHATMAN AWARE OF ABOVE EVENTS.
--- NOTE | 2019-12-15 00:01 | NUR ---
PT RESTING IN BED, EYES CLOSED. RR EVEN, UNLABORED. CRYO CUFF ON, PAULETTE GREEN. CALL LIGHT IN REACH.
--- NOTE | 2019-12-15 02:00 | NUR ---
PT RESTING IN BED, EYES CLOSED. CRYO CUFF ON. RR EVEN, UNLABORED. CALL LIGHT IN REACH.
--- NOTE | 2019-12-15 04:22 | NUR ---
PT IN BED, VSS AND PRN PAIN PILL GIVEN FOR 10/10 PAIN AFTER GETTING OUT OF BED TO VOID. COMPA MILES IN ROOM, CALL LIGHT IN REACH.
--- NOTE | 2019-12-15 04:45 | NUR ---
PT CALLS TO USE BSC, UP TO BSC, 2 PA FWW. BACK TO BED 1PA, FWW. ASSESSMENT, VS AND I&O COMPLETED. GENERALIZED SWELLING IN LEFT KNEE AND THIGH. CMS INTACT. PAULETTE HAS NEW RED BLOOD AND IS BLINKING ORANGE. ATTEMPTED TO TROUBLESHOOT PAULETTE, UNSUCCESSFUL. IV WNL. ICE WATER PROVIDED. NO OTHER NEEDS AT THIS TIME. CALL LIGHT IN REACH.
--- NOTE | 2019-12-15 05:37 | NUR ---
SCHEDULED MEDS PROVIDED. PT WAKES SLIGHLTY CONFUSED, REORIENTED. ICE WATER PROVIDED. NO OTHER NEEDS AT THIS TIME. CALL LIGHT IN REACH.
--- NOTE | 2019-12-15 07:30 | NUR ---
PATIENT IS LAYING IN BED. PATIENTS HAND AND FACE WASHED WITH WARM CLOTH. CHECKED CRYO. DID NOT WANT TO TRANSFER TO CHAIR RIGHT NOW. WHITE BOARD UPDATED. CALL LIGHT WITHIN REACH. NO FURTHER NEEDS AT THIS TIME.
--- NOTE | 2019-12-15 07:34 | NUR ---
PT ON THE PHONE AT TIME OF REPORT. RESTING IN BED CURRENTLY, REFUSES UP TO THE CHAIR. RATES PAIN 2/10 DENIES NEEDS AT THIS TIME
--- NOTE | 2019-12-15 10:35 | NUR ---
DR CABRERA IN EARLIER CHANGES DRESSING TO LLE. PHONED DR CABRERA TO ASK IF HE WANTED THE SUCTION DEVICE AND SITA GIBBS ADDED HE SAID YES. PT WORKS WITH P/T THEN TO RECLINER CHAIR
--- NOTE | 2019-12-15 11:08 | NUR ---
PATIENT SITTING UP IN CHAIR. VITAL SIGNS AND I&O DONE. CALL LIGHT WITHIN REACH. NO OTHER NEEDS AT THIS TIME
--- NOTE | 2019-12-15 11:20 | NUR ---
PT CONTINUES UP IN THE CHAIR AGREES P/T WENT BETTER TODAY AND HE FEELS HE IS GETTING BETTER AFTER "GOING BACKWARDS" A BIT. PT RATES PAIN 2/10 STATES HE DOESN'T FEEL HE NEEDS PAIN MED A THIS TIME AND WILL NOTIFY THIS PHYSIOTHERAPY ASSISTANT IF IT GETS WORSE. NEEDED ITEMS IN REACH
--- NOTE | 2019-12-15 13:56 | NUR ---
PATIENT SITTING UP IN CHAIR. VITAL SIGNS AND I&O DONE. ICE WATER GIVEN. CALL LIGHT WITHIN REACH. NO OTHER NEEDS AT THIS TIME
--- NOTE | 2019-12-15 17:50 | NUR ---
PATIENT RESTING IN CHAIR. CRYO CHECKED. VISITING WITH SON. CALL LIGHT IN REACH. NO FURTHER NEEDS AT THIS TIME.
--- NOTE | 2019-12-15 18:02 | NUR ---
PT CONTINUES UP IN THE CHAIR THIS SHIFT, CRYO CUFF IN PLACE. SON IN TO SEE HIM. PT DENIES NEEDS OR DISCOMFORTS. EATS 100% OF THE EVENING MEAL.
--- NOTE | 2019-12-15 19:10 | NUR ---
SHIFT REPORT RECEIVED FROM DAYSHIFT GINGER BISHOP AT BEDSIDE. PT AWAKE AND TALKING ON THE PHONE. PT APPEARS RELAXED AND NO DISTRESS NOTED. CALL LIGHT IN REACH.
--- NOTE | 2019-12-15 20:46 | NUR ---
ASSESSMENT COMPLETE, SCHEDULED MEDS GIVEN (SEE EMAR). VSS, PT A/O AT THIS TIME, DENIES PAIN. SCANT SEROUS/YELLOW SHADOWING TO PAULETTE DRESSING , REPLACED TODAY ON DAYSHIFT BY . GREEN OKAY LIGHT FLASHING. ALLEVYN BELOW PAULETTE INTACT, SATURATED WITH SEROUS YELLOW SHADOWING, WILL MONITOR.CMS INTACT, SITA HOSE AND SCD'S IN PLACE. PT UP TO VOID X1 AND BACK TO BED, CYROCUFF ALSO IN PLACE. NO FURTHER NEEDS, CALL LIGHT IN REACH.
--- NOTE | 2019-12-15 22:03 | NUR ---
scheduled tylenol given for tolerable pain in left knee, pt talking on the phone to son, denies further needs, call light in reach.
--- NOTE | 2019-12-15 23:08 | NUR ---
PT RESTING IN BED WITH EYES CLOSED, RR EVEN AND UNLABORED. NO DISTRESS NOTED. HOME SLEEP MACHINE IN PLACE. CALL LIGHT IN REACH, GREEN LIGHT FROM PAULETTE DRESSING FLASHING.
--- NOTE | 2019-12-16 01:00 | NUR ---
PT PROVIDED WITH URINAL, DENIES FURTHER NEEDS. CALL LIGHT IN REACH.
--- NOTE | 2019-12-16 02:28 | NUR ---
PT RESTING IN BED WITH EYES CLOSED. RR EVEN AND UNLABORED, HOME SLEEP MACHINE IN PLACE. NO DISTRESS NOTED. CALL LIGHT IN REACH.
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
--- NOTE | 2019-12-16 04:43 | NUR ---
PT RESTING IN BED WITH EYES CLOSED, RR EVEN AND UNLABORED. HOME SLEEP MACHINE IN PLACE. NO DISTRESS NOTED. CALL LIGHT IN REACH.
--- NOTE | 2019-12-16 06:38 | NUR ---
scheduled tylenol and thyroid med given (see emar). pt deneis further needs, call light in reach.
--- NOTE | 2019-12-16 07:17 | NUR ---
PT AWAKE RESTING IN BED AT TIME OF SHIFT REPORT. DENIES NEEDS OF, PREFERS TO GET UP AFTER BREAKFAST. AGREES PAIN MEDS TO BE GIVEN IN ANTICIPATION OF P/T DENIES PAIN WHILE RESTING STILL. CRYO AND SCD'S IN PLACE
--- NOTE | 2019-12-16 08:57 | NUR ---
PT TOLERATES A FULL BREAKFAST. RATES PAIN 3/10, 3 BEING THE GOAL. P/T IN TO WORK WITH HIM. PT IS COOPERATIVE AND MOTIVATED
--- NOTE | 2019-12-16 11:03 | NUR ---
BLOOD ADMINISTRATION STARTED PT AGREES TO NOTIFY RN FOR ANY SYMPTOMS DESCUSSED.
--- NOTE | 2019-12-16 13:11 | NUR ---
DR CHERY IN TO SEE PT WHILE P/T IS PRESENT WELL PT'S SON MEGHAN. QUESTIONS ANSWERED. BLOOD TRANSFUSION NEARLY COMPLETE, NO REPORTED REACTION
--- NOTE | 2019-12-16 14:00 | NUR ---
PT ALERT, ORIENTED AND HERE FOR L TOTAL KNEE. SON MEGHAN IN VISITING FROM OTHO. RN DARIO IN CHANGING CRYOPACK AND PT HAVING BREATHING TREATMENT. PT SEEMS TO BE IMPROVING, GAVE ENCOURAGEMENT AND BLESSING.
--- NOTE | 2019-12-16 14:04 | NUR ---
PATIENT SITTING UP IN CHAIR. SON IN ROOM. VITAL SIGNS AND I&O DONE. CALL LIGHT WITHIN REACH. NO OTHER NEEDS AT THIS TIME
--- NOTE | 2019-12-16 15:39 | NUR ---
PT UP TO SHOWER STAFF ASSIST. C/O REDNESS TO L UPPER THIGH AREA. OBSERVED WITH 2ND RN SUSPECT IT IS FROM [facility] DURING SURGERY. REPORTED TO FLOOR INSPECTOR, DR CHERY IS IN A MEETING AT THIS TIME, WILL BE NOTIFIED LATER. NO BLEEDING, BURNING, OR OTHER SYMPTOM AREA IS JUST RED AND TISSUE IS EDEMATOUS.
--- NOTE | 2019-12-16 17:11 | NUR ---
PATIENT SITTING UP IN CHAIR. VITAL SIGNS AND I&O DONE. CALL LIGHT WITHIN REACH. NO OTHER NEEDS AT THIS TIME
--- NOTE | 2019-12-16 17:31 | NUR ---
DR CABRERA IN TO ASSESS PT LEG NO NEW ORDERS
--- NOTE | 2019-12-16 19:07 | NUR ---
RECEIVED REPORT FROM GINGER BISHOP. pt SITTING IN CHAIR, TALKING ON PHONE. WHITEBOARD UPDATED. LEFT LEG ELEVATED WITH CRYOCUFF IN PLACE. CALL LIGHT WITHIN REACH.
--- NOTE | 2019-12-16 22:00 | NUR ---
ASSESSMENT DONE. LEFT LEG RED AND WARM TO THE TOUCH AT THE THIGH. SWELLING NOTED. PAULETTE DRESSING INTACT SLIGHT AMOUNT OF OLD DRAINAGE NOTED. GREEN LIGHT BLINKING. CRYOCUFF IN PLACE. SCDS ON. MEDICATIONS GIVEN (SEE MAR). CLEANED CPAP WATER RESEVOIR AND ADDED FRESH WATER. NO FURTHER REQUESTS AT THIS TIME. CALL LIGHT WITHIN REACH.
--- NOTE | 2019-12-17 00:37 | NUR ---
ROUNDED ON pt. RESTING IN BED WITH CPAP ON, RESPIRATIONS REGULAR. PAULETTE FLASHING GREEN. CALL LIGHT WITHIN REACH.
--- NOTE | 2019-12-17 02:06 | NUR ---
ROUNDED ON pt. RESTING IN BED WITH EYES CLOSED, RESPIRATIONS REGULAR ON CPAP. CALL LIGHT WITHIN REACH.
--- NOTE | 2019-12-17 04:09 | NUR ---
ROUNDED ON pt. RESTING WITH EYES CLOSED, RESPIRATIONS REGULAR CPAP ON. CALL LIGHT WITHIN REACH.
--- NOTE | 2019-12-17 05:22 | NUR ---
MEDICATIONS GIVEN, AFTER SPEAKING ABOUT PAIN MANAGEMENT pt REQUESTED PRN PAIN MED GIVEN (SEE MAR). PROVIDED WITH APPLESAUCE AND CRACKERS. NO FURTHER REQUESTS AT THIS TIME. CALL LIGHT WITHIN REACH.
--- NOTE | 2019-12-17 05:52 | NUR ---
pt RESTED MOST OF SHIFT WITH CPAP ON. LEFT LEG SWOLLEN AND RED, REDNESS APPEARS TO HAVE LIGHTENED SLIGHTLY. 1PA FWW. PAULETTE HAS NO NEW DRAINAGE. GREEN LIGHT FLASHING. CRYOCUFF, AES, AND SCDS. IVS SL. PRN PAIN MEDS X1. USES CALL LIGHT APPROPRIATELY.
--- NOTE | 2019-12-17 08:16 | NUR ---
PATIENT AMBULATED FROM BED TO CHAIR WITH FWW. TWO PERSON ASSIST. SABA CARE AND AM CARE DONE. LINEN CHANGE. CRYO CHECK. CALL LIGHT WITHIN REACH. NO FURTHER NEEDS AT THIS TIME.
--- NOTE | 2019-12-17 08:50 | NUR ---
oXYCODONE 5MG PO ADMIN PER PT REQUEST FOR LEFT LEG PAIN.
--- NOTE | 2019-12-17 10:49 | NUR ---
Pt sitting up in chair at this time, respirations even and non labored. Left leg elevated, mirta flashing gree, dressing cdi, cms intact. Pt reports pain is tolerable. Pt has no needs at this time. Call light within reach.
--- NOTE | 2019-12-17 12:13 | NUR ---
Admin Oxycodone 5mg po for reports of 5/10 left leg pain.
--- NOTE | 2019-12-17 12:18 | NUR ---
CONNECTED WITH PT HE WAS DOING P.T. ENCOURAGED PT HE BOTH AMBULATED IN HALLWAY AND RODE BIKE IN EXERCISE RM. T APPEARS IN GOOD SPIRITS, WORKING HARD TO PREPARE FOR DC. GAVE BLESSING
--- NOTE | 2019-12-17 14:21 | NUR ---
PATIENT NEARLY INCONTINENT OF BOWELS. AMBULATED WITH FWW TO TOILET WITH TWO PERSON ASSIST. AMBULATED TO CHAIR. GOWN CHANGED. CRYO CHECKED. WATER FILLED. CALL LIGHT WITHIN REACH. NO FURTHER NEEDS AT THIS TIME.
--- NOTE | 2019-12-17 16:53 | DS ---
[facility] [address] [place], [place] [address] Signed ADMISSION DATE: 12/07/2019 DISCHARGE DATE: 12/17/2019 ADMISSION DIAGNOSIS: Degenerative joint disease, left knee. DISCHARGE DIAGNOSES: 1. Degenerative joint disease, left knee. 2. Postoperative anemia. PROCEDURE DURING THIS HOSPITALIZATION: 1. Left total knee arthroplasty. 2. Transfusion 4 units of PRBCs. BRIEF HISTORY: Serge is an 84-year-old gentleman with extensive history of knee arthritis and significant valvular heart disease. He did have two metallic valve replacements and atrial fibrillation. He was found to be stable for knee replacement and preoperative and postoperative anticoagulation protocols were given by his ornamental metal worker helper. He was switched off the Coumadin to Lovenox prior to surgery with the plan to bring him in the day before switching to heparin. On the day before his planned admission, he presented to the emergency room with a nosebleed that he could not stop. This was eventually stopped in the Emergency Department; however, this was the night before he was supposed to be admitted. I went ahead and admitted him at that time and the next day, the Lovenox was stopped and he was placed on IV heparin. He was taken to the operating room Monday morning, underwent the surgery, which was uneventful. He did have difficulty mobilizing postoperatively due to weakness and fatigue as well as poor pain control. He did become quite swollen and ecchymotic throughout the leg secondary to his relatively high anticoagulation state. This is slowly improved over his hospitalization. He did ultimately receive 4 units of PRBCs with a good stable hematocrit by the day of discharge to swing bed. He was able to mobilize and do quite well the last two days. He will need further inpatient rehab however before he go home. He will be discharged to swing bed with the Physical therapy and Occupational therapy. His pain medication of oxycodone and gabapentin will be continued. He will continue to work with pharmacy in the [facility] to stabilize his INR between 3 and 3.5. He currently is at 3 on his stable dose of 10 mg per day. We will see him on a weekly basis. Anticipate he will need a week or two of swing bed status before being able to go home. Electronically Signed By: JAVIER SU MD 12/17/19 1653 PATIENT NAME: SERGE VENTURA DISCHARGE SUMMARY DATE OF : 37 REPORT #: [id number] PHYSICIAN: JAVIER SU MD PCP: MED TIWARI MD REPORT IS CONFIDENTIAL AND NOT TO BE RELEASED WITHOUT AUTHORIZATION [facility] [address] [facility] [place], [place] [address] Signed Javier Su MD BA/MODL /[id number] Copies: ~ Electronically Signed By: JAVIER SU MD 12/17/19 1653 PATIENT NAME: SERGE VENTURA DISCHARGE SUMMARY DATE OF : 37 REPORT #: [id number] PHYSICIAN: JAVIER SU MD PCP: MED TIWARI MD REPORT IS CONFIDENTIAL AND NOT TO BE RELEASED WITHOUT AUTHORIZATION
--- NOTE | 2019-12-17 17:13 | NUR ---
Oxycodone 5mg po admin for reports of 6/10 left knee pain.
--- NOTE | 2019-12-17 19:00 | NUR ---
RECEIVED REPORT FROM GINGER BRUNNER. pt RESTING IN CHAIR, EYES CLOSED, RESPIRATIONS REGULAR AND UNLABORED. CALL LIGHT WITHIN REACH. WHITEBOARD UPDATED.
--- NOTE | 2019-12-17 21:00 | NUR ---
THIS LABORATORY PHLEBOTOMIST WAS IN THE HALLWAY. HEARD SOMETHING DROPPED. WENT IN TO THIS ROOM AND FOUND CRYO ON THE FLOOR AND SMALL TABLE WAS SIDE DOWN. PATIENT WAS LYING ON BED AWAKE. PATIENT STATED HE WENT TO BED FROM CHAIR BY HIMSELF. HE WAS LOOKING FOR THE PHONE CAN NOT FIND IT. STATED I LOOKED AROUND TO SEE IF THERE IS A SMALL KITCHEN THAT I CAN GET A SNACK.
--- NOTE | 2019-12-17 21:10 | NUR ---
V/S AND I&O TAKEN AND CHARTED. CLEANED UP THE ROOM. CRYO REFILLED. ICE WATER REFILLED. SNACKS PROVIDED.
--- NOTE | 2019-12-17 21:30 | NUR ---
ASSESSMENT DONE. pt RESTING IN BED. CPAP READY FOR SLEEP. CRYOCUFF IN PLACE. NO NEW DRAINAGED NOTED ON PAULETTE, GREEN LIGHT FLASHING. SCD ON RIGHT LEG. MEDICATIONS GIVEN (SEE MAR). CALL LIGHT WITHIN REACH.
--- NOTE | 2019-12-17 23:57 | NUR ---
ROUNDED ON pt. RESTING WITH CPAP ON, RESPIRATIONS REGULAR AND UNLABORED. CALL LIGHT WITHIN REACH.
--- NOTE | 2019-12-18 02:00 | NUR ---
ROUNDED ON pt RESTING IN BED WITH CPAP ON. CALL LIGHT WITHIN REACH.
--- NOTE | 2019-12-18 03:21 | NUR ---
BED ALARM SOUNDING. PT HAD REPOSITIONED SELF, CAUSED THE ALARM. HAD USED THE URINAL, CURRENTLY DRINKING WATER WITH NO OTHER NEEDS. BED ALARM PLACED.
--- NOTE | 2019-12-18 03:54 | NUR ---
pt SET OFF BED ALARM WHEN HE PULLED HIMSELF UP IN BED. ASSESSMENT DONE. pt DENIED PAIN AT THIS TIME. URINAL EMPTIED. CRYOCUFF REFRESHED. COFFEE PROVIDED. NO FURTHER REQUESTS AT THIS TIME. CALL LIGHT WITHIN REACH. NO CHANGES IN LEFT KNEE, PAULETTE FLASHING GREEN, NO NEW DRAINAGE.
--- NOTE | 2019-12-18 05:53 | NUR ---
IN TO DO VITALS AND MEDS. pt SITTING IN BED. MEDICATIONS GIVEN (SEE MAR). VITALS RECORDED. NOTICED A RED SPOT ON AES. SMALL SKIN TEAR NOTED. NEW ALLEVYNS PLACED, NEW AES APPLIED. NO FURTHER REQUESTS AT THIS TIME. CALL LIGHT WITHIN REACH.
--- NOTE | 2019-12-18 07:40 | NUR ---
received report from chance colón. pt awake and alert sitting up in bed at this time.
--- NOTE | 2019-12-18 07:49 | NUR ---
pt RESTED ON CPAP MOST OF NIGHT. DID AMBULATE BY SELF FROM CHAIR TO BED. ALARMS IN PLACE. MORE FORGETFUL AT NIGHT. 1PA FWW. LEFT LEG DID HAVE A NEW OPEN SPOT THIS AM BELOW THE PAULETTE DRESSING, ALLEVYN PLACED. PAIN CONTROLLED WITH SCHEDULED MEDICATIONS. GENERALLY USES CALL LIGHT APPROPRIATLEY.
--- NOTE | 2019-12-23 08:23 | OR ---
[facility] [address], [place] [address] Signed DATE OF OPERATION: 12/09/2019 SURGEON: Javier Su MD PREOPERATIVE DIAGNOSIS: Severe degenerative joint disease, left knee. POSTOPERATIVE DIAGNOSIS: Severe degenerative joint disease, left knee. PROCEDURE PERFORMED: Left total knee arthroplasty with Elkin. ASSISTANTS: Ivonne Marshall PA-C. Ivonne was present and critical for all portions of procedure and BEVERLY Rivas. ANESTHESIA: Spinal. BLOOD LOSS: Minimal. TOURNIQUET TIME: 80 minutes. IMPLANT: Nash Triathlon size A femur, 7 tibia, 9 mm insert and a 40 patella. BRIEF HISTORY: Serge is an 84-year-old gentleman with severe osteoarthritis of the knee. He had failed nonoperative treatment after medical clearance, wished to proceed with operative intervention. Risks, benefits, and alternatives were discussed with him and he elected to proceed. Once consent was obtained, he was taken to the operating room after adequate anesthesia. He was placed on operating room table on a hip bump. The left leg was placed in well-padded proximal thigh tourniquet and the leg was prepped and draped in a standard sterile fashion. Leg was exsanguinated using Esmarch bandage. Tourniquet was inflated to 250 mmHg. The knee was approached through a standard anterior incision, carried through skin and subcutaneous tissue. A low mid vastus approach was undertaken. The capsule was incised longitudinally. The infrapatellar fat pad was removed and the Electronically Signed By: JAVIER SU MD 12/10/19 0731 Electronically Signed By: JAVIER SU MD 12/23/19 1217 PATIENT NAME: SERGE VENTURA OPERATIVE REPORT DATE OF : 37 REPORT #: [id number] PHYSICIAN: JAVIER SU MD PCP: MED TIWARI MD REPORT IS CONFIDENTIAL AND NOT TO BE RELEASED WITHOUT AUTHORIZATION [facility] [address], [place] [address] Signed MCL was elevated with a sleeve around the posteromedial corner. The menisci were transected and removed. The ACL was transected. PCL was found to be intact. The knee was then flexed and the tibial and femoral rays were placed. The femoral ray was placed intra-articular. ray was placed in a standard position. The knee was then registered with the computer and the checkpoints were checked. All femoral and tibial points were then taken and the stress poses were taken as well. The implant was adjusted with a little bit more varus and the gaps were equalized with that. The robot was then brought in. The proximal tibial cut was made as was the posterior, anterior and anterior chamfer cuts on the femur. Distal and posterior chamfer cuts were then made with the angled plate. All bone was excised as were meniscal remnants. The posterior femur showed no significant osteophytes. The trials were then positioned. Knee was taken into full extension and matched our preoperative planning. The patella was cut, sized and drilled for 40 patella. The distal femoral drill holes were made and the trials were then removed. The proximal tibia was finished using the keel punch and the bone was found to be fairly soft, so we elected to go with a hybrid prosthesis. The bone surfaces were pulse lavaged and packed with dry Ray-Jessica. Cement was mixed. When it was reached proper consistency, it was placed in the tibia and the patella. Tibia was impacted in position first followed by removal of all the cement. The polyethylene trial was then snapped into position and the femur was impacted until it was well-seated. The knee was extended and nicely loaded. The patella was cut, clamped into position and any remaining cement was removed. The cement allowed to harden. Once it hardened sufficiently, the cement removing was removed. The knee was taken through range of motion and found to be stable. The periarticular soft tissues were injected with 100 mL of ropivacaine Toradol mixture. The On-Q pain pump was percutaneously placed into the adductor canal from the suprapatellar pouch. The knee was pulse lavaged at intervals throughout the procedure. A total of 3 L antibiotic irrigation was used. The arthrotomy was then closed using #2 Stratafix, subcutaneous tissue with #0 Stratafix, and skin with taye. The wound was dressed with a PAULETTE wound VAC dressing. He was awakened and taken to the recovery room in satisfactory condition. All sponge, needle, and instrument counts were correct. Javier Su MD BA/MODL /[id number] Electronically Signed By: JAVIER SU MD 12/10/19 0731 Electronically Signed By: JAVIER SU MD 12/23/19 1217 PATIENT NAME: SERGE VENTURA OPERATIVE REPORT DATE OF : 37 REPORT #: [id number] PHYSICIAN: JAVIER SU MD PCP: MED TIWARI MD REPORT IS CONFIDENTIAL AND NOT TO BE RELEASED WITHOUT AUTHORIZATION [facility] [address] [place], [place] [address] Signed Copies: ~ Electronically Signed By: JAVIER SU MD 12/10/19 0731 Electronically Signed By: JAVIER SU MD 12/23/19 1217 PATIENT NAME: SERGE VENTURA ZAINAB OPERATIVE REPORT DATE OF : 37 REPORT #: [id number] PHYSICIAN: JAVIER SU MD PCP: MED TIWARI MD REPORT IS CONFIDENTIAL AND NOT TO BE RELEASED WITHOUT AUTHORIZATION
== END 2019-12-18 12:00 | disposition swing bed (61) | DRG 470 ==
LOC: ED 21:14 → MS 22:41
PROVIDERS: ADMIT Specialist
PROC: 3E0T3BZ Introduction of Anesthetic Agent into Peripheral Nerves and Plexi, Percutaneous Approach (ICD-10-PCS; 2019-12-09)
PROC: 3E0T33Z Introduction of Anti-inflammatory into Peripheral Nerves and Plexi, Percutaneous Approach (ICD-10-PCS; 2019-12-09)
PROC: 0SRD0J9 Replacement of Left Knee Joint with Synthetic Substitute, Cemented, Open Approach (ICD-10-PCS; 2019-12-09)
PROC: 8E0YXBZ Computer Assisted Procedure of Lower Extremity (ICD-10-PCS; 2019-12-09)
PROC: 30233N1 Transfusion of Nonautologous Red Blood Cells into Peripheral Vein, Percutaneous Approach (ICD-10-PCS; principal; 2019-12-13)
DX: M17.12 Unilateral primary osteoarthritis, left knee (principal); D62 Acute posthemorrhagic anemia; G89.18 Other acute postprocedural pain; D72.829 Elevated white blood cell count, unspecified; I48.91 Unspecified atrial fibrillation; I25.10 Atherosclerotic heart disease of native coronary artery without angina pectoris; J44.9 Chronic obstructive pulmonary disease, unspecified; E11.22 Type 2 diabetes mellitus with diabetic chronic kidney disease; I12.9 Hypertensive chronic kidney disease with stage 1 through stage 4 chronic kidney disease, or unspecified chronic kidney disease; N18.3 Chronic kidney disease, stage 3 (moderate); G47.33 Obstructive sleep apnea (adult) (pediatric); E78.5 Hyperlipidemia, unspecified; K21.9 Gastro-esophageal reflux disease without esophagitis; Z88.2 Allergy status to sulfonamides; Z88.8 Allergy status to other drugs, medicaments and biological substances; Z95.0 Presence of cardiac pacemaker; Z87.891 Personal history of nicotine dependence; Z95.2 Presence of prosthetic heart valve; Z79.01 Long term (current) use of anticoagulants; Z79.84 Long term (current) use of oral hypoglycemic drugs; Z79.82 Long term (current) use of aspirin; Z79.51 Long term (current) use of inhaled steroids; Z79.899 Other long term (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
CPT/HCPCS: 01402; 36415; 36430; 64447; 71045; 76942; 80048; 80053; 81001; 83605; 85014; 85018; 85025; 85610; 85651; 85730; 86850; 86900; 86901; 86920; 87040; 94640; 94762; 97110; 97116; 97162; 97165; 97166; 97530; 99284; C1713; C1776; J0690; J1100; J1644; J1650; J2001; J2704; J2795; J3480; J7042; J8540; P9016

== ENCOUNTER 2019-12-17 07:45 | Inpatient (IN) | payer MEDICARE ==
[~2019-12-17] VITALS: Ht 185.4 cm; Wt 99.8 kg
--- NOTE | ~2019-12-17 | DS ---
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 PROCEDURE PERFORMED: None. BRIEF HISTORY: Serge is an 84-year-old gentleman, who underwent total knee arthroplasty with minimal troubles. 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 He was slow to mobilize and was discharged to swing bed status for continued inpatient rehab where he has done very well. He has now reached the point where he is safe going up and down set of stairs and going up and down the hallway. 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 He will continue doing home physical therapy and eventually get him in the outpatient. He continues his stable dosing of the Coumadin at 10 mg p.o. daily and follow up with his regular doctor regarding that. He will follow up with me on for wound check. Javier Su MD BA/KODY /[id number] Copies: ~ PATIENT NAME: SERGE VENTURA DISCHARGE SUMMARY DATE OF : 37 REPORT #: [id number] PHYSICIAN: JAVIER SU MD PCP: MED TIWARI MD REPORT IS CONFIDENTIAL AND NOT TO BE RELEASED WITHOUT AUTHORIZATION
--- OUTSIDE RECORDS SUMMARY | ~2019-12-17 | XMS | Encounter Summary ---
Demographics + + + | Address | [address] | | | [place] [address] | + + + | Home Phone | | + + + | Preferred Language | Unknown | + + + | Marital Status | | + + + | Nondenominational Affiliation | 1013 | + + + | Race | Unknown | + + + | Ethnic Group | Unknown | + + + Author + + + | Author | [facility] | | | and [place] | + + + | Organization | [facility] | | | and [place] | + + + | Address | Unknown | + + + | Phone | Unavailable | + + + Support + + + + + | Name | Relationship | Address | Phone | + + + + + | Frances Gasca | ECON | NA | | | | | [place] [address] | | + + + + + | Juana Gasca | ECON | [address] | | | | | [place] | | | | | [address] | | + + + + + | Chad Gasca | ECON | Unknown | | + + + + + Care Team Providers + +------+ + | Care Biotechnologist Name | Role | Phone | + +------+ + | Timo Lorenzana | PCP | | | MD | | | + +------+ + Reason for Visit +--------+--------+ + | Reason | Onset | Comments | | | Date | | +--------+--------+ + | Pre-Op | 11/11/ | | | | 2020 | | +--------+--------+ + Encounter Details +--------+ + + + + | Date | Type | Department | Care Team | Description | +--------+ + + + + | 11/11/ | Telephone | [facility] | [facility] [place], | Pre-Op | | 2019 | | [facility] | [address] | | | | | [address] | [place], | | | | | [place] | [place] [address] | | | | | [address] | [phone] | | | | | [phone] | | | +--------+ + + + + Social History + + + +--------+ + | Tobacco Use | Types | Packs/Day | Years | Date | | | | | Used | | + + + +--------+ + | Former Smoker | Cigarettes | 2.5 | 40 | Quit: 07/22/1990 | + + + +--------+ + + +---+---+---+ | Smokeless Tobacco: | | | | | Never Used | | | | + +---+---+---+ + + | Comments: quit 07/22/1990 | + + + + +---------+ + | Alcohol Use | Drinks/Week | oz/Week | Comments | + + +---------+ + | Yes | 2 Glasses of wine | 2.0 | | + + +---------+ + + + + | Sex Assigned at | Date Recorded | | | | + + + | Not on file | | + + + documented as of this encounter Miscellaneous Notes Telephone Encounter - Noah Mace - 11/12/2019 2:39 PM PDTSpoke with patient regarding pr e op instructions. Asked all COVID-19 scheduling questions. All answers were no. documented in this encounter Plan of Treatment +--------+ + + + + | Date | Type | Specialty | Care Team | Description | +--------+ + + + + | 03/09/ | Procedure | Cardiology | | | | 2019 | visit | | | | +--------+ + + + + | 05/06/ | Office | Cardiology | [facility], | | | 2019 | Visit | | [address] | | | | | | [place] | | | | | | [id number] | | | | | | | | +--------+ + + + + | 06/08/ | Procedure | Cardiology | | | | 2020 | visit | | | | +--------+ + + + + | 09/07/ | Procedure | Cardiology | | | | 2020 | visit | | | | +--------+ + + + + documented as of this encounter Visit Diagnoses Not on filedocumented in this encounter"
--- OUTSIDE RECORDS SUMMARY | ~2019-12-17 | XMS | Encounter Summary ---
Demographics + + + | Address | [address] | | | [place] [address] | + + + | Home Phone | | + + + | Preferred Language | Unknown | + + + | Marital Status | | + + + | Anglican Affiliation | 1013 | + + + | Race | Unknown | + + + | Ethnic Group | Unknown | + + + Author + + + | Author | [facility] | | | and [place] | + + + | Organization | [facility] | | | and [place] | + + + | Address | Unknown | + + + | Phone | Unavailable | + + + Support + + + + + | Name | Relationship | Address | Phone | + + + + + | Frances Gasca | ECON | NA | | | | | [place] [address] | | + + + + + | Juana Gasca | ECON | [address] | | | | | [place] | | | | | [address] | | + + + + + | Chad Gasca | ECON | Unknown | | + + + + + Care Team Providers + +------+ + | Care Invisible Braces Orthodontist Name | Role | Phone | + +------+ + | Timo Lorenzana | PCP | | | MD | | | + +------+ + Reason for Visit Auth/Cert +--------+--------+ + + + + | Status | Reason | Specialty | Diagnoses / | Referred By | Referred To | | | | | Procedures | Contact | Contact | +--------+--------+ + + + + | | | | Diagnoses | | Spenser Potter | | | | | Heart block | | MD Gorge | | | | | Procedures | | [address] | | | | | [place] [address] | | [address] | | | | | IMPLTBL DFB | | [place], [place] | | | | | PLSE GEN | | [address] Phone: | | | | | W/REPL PLSE | | [phone] | | | | | GEN 1 LEAD | | Fax: | | | | | [place] | | [phone] | | | | | INSJ/RPLCMT | | | | | | | PERM DFB | | | | | | | W/TRNSVNS | | | | | | | LDS 1/DUAL | | | | | | | CHMBR MA | | | | | | | REMVL PERM | | | | | | | PM PLSE GEN | | | | | | | W/REPL PLSE | | | | | | | GEN SNGL | | | | | | | LEAD CV EP | | | | | | | PM GEN | | | | | | | CHANGE | | | +--------+--------+ + + + + Encounter Details +--------+ + + + + | Date | Type | Department | Care Team | Description | +--------+ + + + + | 11/12/ | Anesthesia | [facility] | Belle Murray, | | | 2020 | Event | [facility] | RESPIRATORY MANAGER [address] | | | | | LAB [address] | [place] [address] | | | | | [place], [place] | [phone] | | | | | [address] | | | | | | [phone] | | | +--------+ + + + + Anesthesia Record + + + + + | Procedure Name | Responsible | Anesthesia Start | Anesthesia Stop Time | | | Anesthesiologist | Time | | + + + + + | CV EP PM GEN CHANGE | Belle Murray, | 11/13/19 1248 | 11/13/19 1355 | | (Left ) | RESPIRATORY MANAGER | | | + + + + + +----+---+ + + | Da | T | Event | Comment | | te | i | | | | | m | | | | | e | | | +----+---+ + + | 06 | 1 | | | | /1 | 2 | | | | 0/ | 2 | | | | 20 | 6 | | | | 20 | | | | +----+---+ + + | | 1 | An Start | Reassessment prior to anesthesia induction/procedure. | | | 2 | | | | | 4 | | | | | 8 | | | +----+---+ + + | | 1 | An | | | | 2 | Induction | | | | 5 | | | | | 2 | | | +----+---+ + + | | 1 | Anesthesia | | | | 2 | Ready | | | | 5 | | | | | 3 | | | +----+---+ + + | | 1 | First | | | | 3 | Inc/Proc St | | | | 0 | | | | | 3 | | | +----+---+ + + | | 1 | an stop | | | | 3 | data | | | | 5 | | | | | 5 | | | +----+---+ + + | | 1 | An Stop | Patient handed off to recovery nurse. | | | 5 | | | | | 5 | | | +----+---+ + + +------+ | Meds | +------+ + +--------+ | Name | Total | + +--------+ | propofol | 80 mg | + +--------+ | sodium chloride 0.9% (NS) | 100 mL | | infusion | | + +--------+ + + | Name | + + | N2O Flow Rate (L/Min) | + + | O2 Flow Rate (L/Min) | + + | Insp O2 | + + | Exp N2O | + + | Air Flow Rate (L/Min) | + + | Secondary O2 Flow Rate | + + + + | No blood administrations on file. | + + +--------+ + + + | Type | Details | Placement | Removal | +--------+ + + + | Periph | 11/13/19; 1107; Left; Distal; | 11/13/19 1107 by | 11/13/19 1420 by | | eral | Wrist; exar-elp-rkjazj catheter | Bria Casanova RN | Krys Weeks, | | IV | system; 20 gauge; Hematology, | | RN | | | Chemistry, Coagulation; 11/13/19; | | | | | 1420 | | | +--------+ + + + documented in this encounter Social History + + + +--------+ + [...] + + documented as of this encounter OR Notes Anesthesia Postprocedure Evaluation - Belle Murray CRNA - 11/13/2019 1:56 PM PDTForma tting of this note might be different from the original. ANESTHESIA POSTANESTHESIA EVALUATION Serge Gasca 84 y.o. male 1935 [id number] Procedure(s) CV EP PM GEN CHANGE (Left ) Cooperates? Yes Mental Status Performs simple tasks. Respiratory Satisfactory - Airway patent (self maintained). Cardiovascular Satisfactory - Blood pressure and heart rate acceptable Temperature Satisfactory Pain Satisfactory N/V Control Satisfactory Hydration Satisfactory - No signs of dehydration Adverse Events ADVERSE EVENTS: No adverse events Vitals Value Taken Time Temp 97.4 13:56 11/13/2019 Pulse 60 13:56 11/13/2019 Resp 20 13:56 11/13/2019 BP 145/69 13:56 11/13/2019 Arterial Line BP Arterial Line BP 2 SpO2 99 13:56 11/13/2019 Electronically signed by Belle Murray CRNA 11/13/2019 1:56 PM [facility] Belle Murray CRNA at 020 1:57 PM PDTAnesthesia Preprocedure Evaluation - Belle Murray CRNA - 11/13/2019 11: 31 AM PDT ANESTHESIA PREANESTHESIA EVALUATION Serge Gasca 84 y.o. male 1935 [id number] Procedure(s): CV EP PM GEN CHANGE (Left ) Medical,anesthesia, drug, allergy histories reviewed, NPO status verified. Labs reviewed. (-) perioperative beta-yumi/statin not given/taken, reason: not applicab le/Not taking Beta-Yumi. Review of Systems / Med History Anesthesia History (+) previous surgery or anesthesia. Family Anesthesia History Family Anesthesia Negative except where noted below. Cardiovascular 10/30/2019 EKG Rate 60. Atrial fibrillation Ventricular-paced rhythm Abnormal ECG 12/20/2016 conclusion 1. The left ventricle is normal in size, mild concentric hypertrophy and normal systolic fu nction EF 55-60%. 2. The right ventricle is severely enlarged with mild systolic impairement. 3. Normally functioning mechanical prosthetic aortic valve. 4. The mechanical MVR is well seated with stable mean gradient. 5. There is no pericardial effusion. . Exercise tolerance <4 METS (+) hypertension and essential without renal disease. (+) Dysrhythmias: (+) permanent atrial fibrillation, (+) congestive heart failure. (+) valvular problems/murmurs : MS (+) PVD: . Pulmonary (+) pneumonia, Chronic Obstructive Pulmonary Disease.(+) tobacco use.(+) ex-smoker: 1990. Gastrointestinal/Hepatic (+) hypercholesterolemia. Renal Negative except where noted below. Endocrine (+) hypothyroidism. (+) obesity: BMI (30-39) (+) Diabetes: type 2. Cancer Negative except where noted below. Obstetrics Negative except where noted below. Pediatric History Negative except where noted below. Neuromuscular Negative except where noted below. (+) arthritis. Psychology Negative except where noted below. Physical Exam Airway MP III, TM >3 FB, Mouth opening >2 FB. Neck: full ROM, extends >30 degrees. Jaw protru gurpreet normal. Facial hair present: No Dental (+) implants(s)/bridges(s)/caps(s) and age appropriate dentition. CV Rhythm regular. Rate normal. Pulm Clear to auscultation bilaterally. Neuro grossly normal. Anesthesia Plan ASA: 3 Type: MAC. Induction: Intravenous. Potential problems: None anticipated. Monitors: Standard ASA monitors. Consent statement: Anesthetic plan, alternatives, risks and benefits discussed with patient. ICU placement, in fection, nausea, pain, perioperative CV events, post-op intubation, sore throat Consenting person understands and agrees to proceed. Discussed plan with QUYNH. Electronically Signed by: Belle Murray CRNA ESig date/time: 11/13/2019 12:27 PM documented in this encounter Miscellaneous Notes Anesthesia Post-op Handoff - Belle Murray CRNA - 11/13/2019 1:55 PM PDT ANESTHESIA HANDOFF NOTE Serge Rmbigg Gasca 84 y.o. male 1935 [id number] CV EP PM GEN CHANGE (Left ) HANDOFF NOTE Handoff Protocol Used: post-procedure handoff checklist completed The following were completed during the transfer of care: 1. Identification of patient 2. Identification of responsible practitioner (primary service) 3. Discussion of pertinent medical history 4. Discussion of the surgical/procedure course (procedure, reason for surgery, procedure pe rformed) 5. Intraoperative anesthetic management and issues/concerns 6. Expectations/plans for the early post-procedure period 7. Opportunity for questions and acknowledgement of understanding of report from receiving team Patient Location: Other (supervisor dental laboratory procedure room) Condition: alert, responds to stimuli and awake Airway/O2: no supplemental O2 Multimodal analgesia: multimodal analgesia used between 6 hours prior to anesthesia start t o PACU discharge Two or more MARY mitigation strategies used: perioperative obstructive sleep apnea intervent ions applied The significant anesthesia concerns and VS in Epic were reviewed with the receiving team. Belle Murray CRNA 11/13/2019 1:55 PM [facility] signed by eBlle Murray CRNA at 020 1:55 PM PDTdocumented in this encounter Plan of Treatment +--------+ + + + + | Date | Type | Specialty | Care Team | Description | +--------+ + + + + | 03/09/ | Procedure | Cardiology | | | 2019 | visit | | | | +--------+ + + + + | 05/06/ | Office | Cardiology | Elif Hylton, | | | 2019 | Visit | | MD Asad FIELDS | | | | | | [facility] [place] | | | | | | [address] | | | | | | | [...] Visit Diagnoses Not on filedocumented in this encounter Administered Medications + +--------+ +-------+------+------+ | Medication Order | MAR | Action | Dose | Rate | Site | | | Action | Date | | | | + +--------+ +-------+------+------+ | propofol (DIPRIVAN) injection | Given | 11/13/19 | 20 mg | | | | Intravenous, PRN, Starting Wed | | 20 1:08 | | | | | 11/13/19 at 1300, Anesthesia | | PM PDT | | | | | Intra-op | | | | | | + +--------+ +-------+------+------+ +-------+ +-------+---+---+ | Given | 11/13/19 | 40 mg | | | | | 20 1:05 | | | | | | PM PDT | | | | +-------+ +-------+---+---+ | Given | 11/13/19 | 20 mg | | | | | 20 1:00 | | | | | | PM PDT | | | | +-------+ +-------+---+---+ +---+---+ | | | +---+---+ + + + +---+---+---+ | sodium chloride 0.9% (NS) | Continue | 11/13/19 | | | | | infusion at 50 mL/hr, | d by | 20 12:48 | | | | | Intravenous, CONTINUOUS, Starting | Anesthes | PM PDT | | | | | 11/13/19 at 1045, | ia | | | | | | Recovery/Phase I | | | | | | + + + +---+---+---+ +---------+ +---+ +---+ | New Bag | 11/13/19 | | 50 mL/hr | | | | 20 10:54 | | | | | | AM PDT | | | | +---------+ +---+ +---+ +---+---+ | | | +---+---+ documented in this encounter"
--- OUTSIDE RECORDS SUMMARY | ~2019-12-17 | XMS | Encounter Summary ---
Demographics + + + | Address | [address] | | | [place] [address] | + + + | Home Phone | | + + + | Preferred Language | Unknown | + + + | Marital Status | | + + + | Sikhism Affiliation | 1013 | + + + | Race | Unknown | + + + | Ethnic Group | Unknown | + + + Author + + + | Author | [facility] | | | and [place] | + + + | Organization | [facility] | | | and [place] | + + + | Address | Unknown | + + + | Phone | Unavailable | + + + Support + + + + + | Name | Relationship | Address | Phone | + + + + + | Frances Gasca | ECON | NA | | | | | [place] [address] | | + + + + + | Juana Gasca | ECON | [address] | | | | | [place] | | | | | [address] | | + + + + + | Chad Gasca | ECON | Unknown | | + + + + + Care Team Providers + +------+ + | Care Alignment Technician Name | Role | Phone | + +------+ + | Timo Lorenzana | PCP | | | MD | | | + +------+ + Encounter Details +--------+ + + + + | Date | Type | Department | Care Team | Description | +--------+ + + + + | 07/01/ | Orders Only | [facility] [place] | Cassidy Xavier, | Obstructive sleep | | 2014 | | PULMONARY [address] | RN | apnea (adult) | | | | [place], | | (pediatric) | | | | [place] [address] | | | | | | [phone] | | | +--------+ + + + [...] + + documented as of this encounter Plan of Treatment [...] | | | | | | [facility] | | | | | [address] | | | | | | | [...] documented as of this encounter Visit Diagnoses + + | Diagnosis | + + | Obstructive sleep apnea (adult) (pediatric) | + + documented in this encounter"
--- OUTSIDE RECORDS SUMMARY | ~2019-12-17 | XMS | Encounter Summary ---
Demographics + + + | Address | [address] | | | [place] [address] | + + + | Home Phone | | + + + | Preferred Language | Unknown | + + + | Marital Status | | + + + | Orthodoxy Affiliation | 1013 | + + + | Race | Unknown | + + + | Ethnic Group | Unknown | + + + Author + + + | Author | [facility] | | | and [place] | + + + | Organization | [facility] | | | and [place] | + + + | Address | Unknown | + + + | Phone | Unavailable | + + + Support + + + + + | Name | Relationship | Address | Phone | + + + + + | Frances Gasca | ECON | NA | | | | | [place] [address] | | + + + + + | Juana Gasca | ECON | [address] | | | | | [place] | | | | | [address] | | + + + + + | Chad Gasca | ECON | Unknown | | + + + + + Care Team Providers + +------+ + | Care Intelligence Agent Name | Role | Phone | + +------+ + | Timo Lorenzana | PCP | | | MD | | | + +------+ + Reason for Visit + + + | Reason | Comments | + + + | Follow-up | | + + + | COPD | | + + + Encounter Details +--------+---------+ + + + | Date | Type | Department | Care Team | Description | +--------+---------+ + + + | 03/08/ | Office | [facility] | Yuri Raymond | Centrilobular | | 2019 | Visit | PULMONOLOGY [address] | Rush Raymond MD [address] | emphysema (HCC) | | | | [place] | [place] | (Primary Dx); | | | | [place], [place] | [place] [address] | Chronic obstructive | | | | [address] | [phone] | pulmonary disease, | | | | [phone] | | unspecified COPD | | | | | | type (HCC); MARY | | | | | | treated with BiPAP | +--------+---------+ + + + Social History + + [...] + + documented as of this encounter Last Filed Vital Signs + + + + + | Vital Sign | Reading | Time Taken | Comments | + + + + + | Blood Pressure | 113/55 | 03/08/2019 1:09 PM | | | | | PDT | | + + + + + | Pulse | 60 | 03/08/2019 1:09 PM | | | | | PDT | | + + + + + | Temperature | 36.2 C (97.2 F) | 03/08/2019 1:09 PM | | | | | PDT | | + + + + + | Respiratory Rate | - | - | | + + + + + | Oxygen Saturation | 97% | 03/08/2019 1:09 PM | | | | | PDT | | + + + + + | Inhaled Oxygen | - | - | | | Concentration | | | | + + + + + | Weight | 111.6 kg (246 lb) | 03/08/2019 1:09 PM | | | | | PDT | | + + + + + | Height | 185.4 cm (6' 1") | 03/08/2019 1:09 PM | | | | | PDT | | + + + + + | Body Mass Index | 32.46 | 03/08/2019 1:09 PM | | | | | PDT | | + + + + + documented in this encounter Progress Yuri Tarango MD - 03/08/2019 1:15 PM PDTFormatting of this note might be dif ferent from the original. [facility] PUL[facility] [address] [place] [id number] HISTORY: Chief Complaint: I have been asked to assist in the pulmonary evaluation of Serge Zambrano an, 83 y.o. male, for COPD History of Present Illness: Interval history: "Serge Gasca is a 80 year old gentleman referred to me for COPD. He was previously fol lowing with Dr. La at [facility] for his pulmonary issues. He is maintained on Sp iriva daily, Adviar 100/5 1 puff BID, and ProAir PRN. He uses his ProAir about once weekly or less on average. He also uses albuterol nebs twice daily. He is a former smoker of 2 .5 ppd x 40 years at stopped in 1990. His symptoms are quite well controlled at this time. He denies any wheezing or cough at present. He also denies any dyspnea on exertion at t his time. He does admit though that he leads a sedentary lifestyle. He also has a histor y of AVR and MVR, DM, HTN, MARY on BIPAP, Afib. " Interval history: Serge is here for follow up for COPD. He has been doing fairly well the past year. He den ies any acute exacerbations. He also denies cough. He is able to go about his daily activi ties without any dyspnea. He continues to use advair 100/50 and spiriva daily as well nebul izing albuterol nightly. Review of Systems Constitutional: Negative. Negative for chills, fever and malaise/fatigue. HENT: Negative. Negative for congestion, sinus pain and sore throat. Eyes: Negative. Respiratory: Negative for cough, hemoptysis, sputum production, shortness of breath, wheezi ng and stridor. Cardiovascular: Negative. Negative for leg swelling. Gastrointestinal: Negative. Negative for abdominal pain, heartburn, nausea and vomiting. Genitourinary: Negative. Musculoskeletal: Negative. Skin: Negative. Neurological: Negative. Endo/Heme/Allergies: Negative. Negative for environmental allergies. All other systems reviewed and are negative. Past Medical History: Diagnosis Date Anemia Aortic valve disease 03/10/14 Surgery to replace valve Aortic valve stenosis severe, follows with Dr. Fortune, s/p AVR 03/10/2014 Atrial fibrillation (HCC) s/p ablation and pacemaker Atrial fibrillation (HCC) BPH (benign prostatic hyperplasia) s/p TURP and gets dilated periodically Congestive heart failure (HCC) COPD (chronic obstructive pulmonary disease) (HCC) COPD (chronic obstructive pulmonary disease) (HCC) Coronary artery disease Coronary artery disease Diabetes mellitus type II Diabetes mellitus, type 2 (HCC) Dysphagia GERD (gastroesophageal reflux disease) Hyperlipidemia Hypertension Hypertension Hypothyroidism Mitral valve stenosis s/p replacement MARY (obstructive sleep apnea) on auto BiPAP MARY treated with BiPAP 08/05/2016 Osteoarthritis Otogenic vertigo Pneumonia Urethral stricture Past Surgical History: Procedure Laterality Date AORTIC VALVE REPLACEMENT 03/10/2014 Joanie carbon valve, Dr. Elizondo BACK SURGERY lower back x2 BRONCHOSCOPY for foreign body removal cardiac ablation x2 CARDIAC CATHERIZATION 03/09/2014 CARDIAC CATHERIZATION CARDIAC SURGERY COLONOSCOPY CORONARY ARTERY BYPASS GRAFT 01/09/1996 coronary artery stenting x2 CORTISONE INJECTION Left knee deviated septum repair EYE SURGERY Rt. eye retina re-attachment FINGER SURGERY HARDWARE REMOVAL pacemaker,titanium alloy mitral valve ,metal in Rt. hip HEMORRHOID SURGERY HERNIA REPAIR x3 HERNIA REPAIR INGUINAL HERNIA X 4 ligation of artery in nostril MITRAL VALVE REPLACEMENT 1995 titanium alloy valve OTHER SURGICAL HISTORY UNLISTED PROCEDURE ARTHROSCOPY - total Rt. hip OTHER SURGICAL HISTORY CATARACT EXTRACTION - Rt. eye OTHER SURGICAL HISTORY 03/10/2014 AORTIC VALVE REPLACEMENT REDO - Procedure: AORTIC VALVE - REPLACEMENT - REDO; Surgeon: Jassi Elizondo MD; Location: [facility] MAIN OR; Service: Cardiac; Laterality: N/A; OTHER SURGICAL HISTORY 03/10/2014 CYSTOSTOMY W/ BLADDER DILATION - Procedure: CYSTOSCOPY - DILATATION; Surgeon: Timothy badillo MD; Location: [facility] MAIN OR; Service: Cardiac; Laterality: N/A; PACEMAKER INSERTION PACEMAKER PLACEMENT retinal detachment repair ROTATOR CUFF REPAIR ROTATOR CUFF REPAIR Lt. shoulder SPINE SURGERY L4 TONSILLECTOMY AND ADENOIDECTOMY TOTAL HIP ARTHROPLASTY 2011 Right TURP 2007 URETHRAL STRICTURE DILATATION multiple, usually a couple times a year Current Medications: Outpatient Medications albuterol (PROAIR HFA) 90 mcg/puff inhaler (Taking) Inhale 2 puffs into the lungs every 4 hours as needed for Shortness of Breath. albuterol 2.5 mg/3 mL nebulizer solution (Taking) Take 3 mLs by nebulization every 6 (six ) hours as needed for Wheezing. carvedilol (COREG) 3.125 mg tablet (Taking) Take 0.5 tablets by mouth 2 (two) times daily . carvedilol (COREG) 3.125 mg tablet (Taking) 1/2 tablet twice daily CINNAMON PO (Taking) Take 1,000 mg by mouth daily. cyanocobalamin (VITAMIN B-12) 1000 MCG tablet (Taking) Take 1,000 mcg by mouth daily. fluticasone-salmeterol (ADVAIR, WIXELA INHUB) 100-50 mcg/puff diskus inhaler (Taking) Inh cecy 1 puff into the lungs 2 (two) times daily. Domamxdqfgq-Haggvhszo-Uxg C-Mn (GLUCOSAMINE 1500 COMPLEX PO) (Taking) Take 3,000 mg by mo uth daily. levothyroxine (SYNTHROID, LEVOTHROID) 150 mcg tablet (Taking) Take 150 mcg by mouth Daily . lisinopril (PRINIVIL,ZESTRIL) 2.5 MG tablet (Taking) Take 2.5 mg by mouth Daily. metFORMIN (GLUCOPHAGE) 500 mg tablet (Taking) Take 850 mg by mouth 3 (three) times daily. MULTIPLE VITAMINS-MINERALS ER PO (Taking) Take by mouth daily. nitrofurantoin (MACRODANTIN) 50 MG capsule (Taking) Take 50 mg by mouth nightly. nitroglycerin (NITROSTAT) 0.4 mg SL tablet (Taking) place 1 tablet under the tongue every 5 minutes if needed for chest pain may repeat 3 TIMES THEN GO TO ER omeprazole (PRILOSEC OTC) 20 mg tablet (Taking) Take 20 mg by mouth Daily. omeprazole (PRILOSEC) 20 mg capsule (Taking) Take 20 mg by mouth every morning before zuleyka akfast. Potassium Chloride Kaylene CR (KLOR-CON M20 PO) (Taking) CR-TABS - 1 tablet by mouth twice d aily pravastatin (PRAVACHOL) 80 MG tablet (Taking) Take 80 mg by mouth nightly. Respiratory Therapy Supplies (NEBULIZER COMPRESSOR) KIT (Taking) by Does not apply route as needed. tiotropium (SPIRIVA HANDIHALER) 18 mcg inhalation capsule (Taking) Inhale contents of one capsule once daily (do not swallow capsules) torsemide (DEMADEX) 20 mg tablet (Taking) Take 40 mg by mouth 2 times daily. warfarin (COUMADIN) 10 mg tablet (Taking) Take 10 mg by mouth daily. Sliding scale, [facility]. A l[place] regulates warfarin (COUMADIN) 7.5 mg tablet (Taking) Take 7.5 mg by mouth Daily. Take 7.5mg on and Monday. Take 10mg all other days Allergies Allergen Reactions Sulfa Antibiotics Hives Metoprolol Succinate Swelling Social History Socioeconomic History Marital status: Spouse name: Not on file Number of children: Not on file Years of education: Not on file Highest education level: Not on file Social Needs Financial resource strain: Not on file Food insecurity - worry: Not on file Food insecurity - inability: Not on file Transportation needs - medical: Not on file Transportation needs - non-medical: Not on file Occupational History Not on file Tobacco Use Smoking status: Former Smoker Packs/day: 2.50 Years: 40.00 Pack years: 100.00 Types: Cigarettes Last attempt to quit: 07/22/1990 Years since quittin.6 Smokeless tobacco: Never Used Tobacco comment: quit 07/22/1990 Substance and Sexual Activity Alcohol use: Yes Comment: 1 drink in the evening Drug use: No Comment: Drug use: No Sexual activity: Not on file Other Topics Concern Not on file Social History Narrative Not on file Family History Problem Relation Age of Onset Other (see comment) Father ASHD Heart disease Father Heart disease Mother High blood pressure Brother Other (see comment) Brother DVT Other (see comment) Brother retinal detachment Arthritis Sister Drug abuse Daughter Diabetes Son Bipolar disorder Son PHYSICAL EXAMINATION: Vital Signs: Vitals: 03/08/19 1309 BP: 113/55 Pulse: 60 Temp: 36.2 C (97.2 F) TempSrc: Oral SpO2: 97% Weight: 111.6 kg (246 lb) Height: 1.854 m (6' 1") Weight: Wt Readings from Last 2 Encounters: 03/08/19 111.6 kg (246 lb) 07/31/15 124.3 kg (274 lb) .lastwt BMI: Body mass index is 32.46 kg/m. Physical Exam Constitutional: He is well-developed, well-nourished, and in no distress. No distress. HENT: Head: Normocephalic. Mouth/Throat: Oropharynx is clear and moist. No oropharyngeal exudate. Eyes: Conjunctivae are normal. No scleral icterus. Neck: No tracheal deviation present. Cardiovascular: Normal rate, regular rhythm and normal heart sounds. No murmur heard. Pulmonary/Chest: Effort normal. No stridor. No respiratory distress. He has no wheezes. He has no rales. Abdominal: Soft. He exhibits no distension. There is no tenderness. Musculoskeletal: He exhibits no edema. Lymphadenopathy: He has no cervical adenopathy. Neurological: He is alert. Skin: Skin is warm. No rash noted. He is not diaphoretic. No erythema. Vitals reviewed. LABORATORY EVALUATION: Diagnostic Studies: Available Labs and Images were reviewed personally. Significant resul ts and findings are addressed below or in the Assessment and Plan. PFT: 03/31/16 FEV1/FVC 0.69 FEV 2.18L/69% FVC 3.14L/72% DLCO 44% DL/VA 63% TLC 7.66 95% RV/TLC 0.49 ASSESSMENT AND PLAN: A> 83 y.o. male former smoker with h/o COPD and emphysema, DM, HTN, Afib, s/p MVR and AVR P> 1. COPD - doing well the past year. No significant exacerbations. Denies dyspnea with his usual a ctivities. Denies cough as well. - breath sounds clear on exam - recommended to continue with Advair 100/50 1 puff BID - continue with spiriva daily - continue albuterol nebs nightly. - reminded him to obtain his flu vaccine. 2. MARY - on BIPAP nightly The patient will follow up with me in 1 year Yuri Raymond MD Pulmonary and Critical Care Medicine [facility] Pulmonology documented in this encounter Plan of Treatment [...] | | | | | [place] | | | | | | [address] | | | | | | | [...] + | Diagnosis | + + | Centrilobular emphysema (HCC) - Primary | + + | Chronic obstructive pulmonary disease, unspecified COPD type (HCC) | + + | MARY treated with BiPAP | + + documented in this encounter
--- OUTSIDE RECORDS SUMMARY | ~2019-12-17 | XMS | Encounter Summary ---
Demographics + + + | Address | [address] | | | [place] [address] | + + + | Home Phone | | + + + | Preferred Language | Unknown | + + + | Marital Status | | + + + | Jewish Affiliation | 1013 | + + + | Race | Unknown | + + + | Ethnic Group | Unknown | + + + Author + + + | Author | [facility] | | | and [place] | + + + | Organization | [facility] | | | and [place] | + + + | Address | Unknown | + + + | Phone | Unavailable | + + + Support + + + + + | Name | Relationship | Address | Phone | + + + + + | Frances Gasca | ECON | NA | | | | | [place] [address] | | + + + + + | Juana Gasca | ECON | [address] | | | | | [place] | | | | | [address] | | + + + + + | Chad Gasca | ECON | Unknown | | + + + + + Care Team Providers + +------+ + | Care Denture Waxer Name | Role | Phone | + +------+ + | Timo Lorenzana | PCP | | | MD | | | + +------+ + Reason for Visit +---------+--------+ + | Reason | Onset | Comments | | | Date | | +---------+--------+ + | Results | 07/20/ | | | | 2012 | | +---------+--------+ + Encounter Details +--------+ + + + + | Date | Type | Department | Care Team | Description | +--------+ + + + + | 07/20/ | Telephone | [facility] [place] | Guilherme Madrigal, | Results | | 2012 | | PULMONARY [address] | RN | | | | | [place], | | | | | | [place] [address] | | | | | | [phone] | | | +--------+ + + + [...] this encounter Miscellaneous Notes Telephone Encounter - Guilherme Madrigal RN - 07/20/2012 2:18 PM PSTPatient reached with Dr Haley's result note. Voiced understanding. elephone Encounter - Guilherme Madrigal RN - 07/20/2012 2:18 PM P STMessage copied by GUILHERME MADRIGAL on MonJul 20, 2012 1418 ------ Message from: ANN-MARIE HALEY Created: MonJul 20, 2012 0901 Please let Mr. Dubois know his chest x-ray is stable. documented in this encounter Plan of Treatment [...] | | | | | | [place] | | | | | | [address] | | | | | | | [...]
--- OUTSIDE RECORDS SUMMARY | ~2019-12-17 | XMS | Encounter Summary ---
Demographics + + + | Address | [address] | | | [place] [address] | + + + | Home Phone | | + + + | Preferred Language | Unknown | + + + | Marital Status | | + + + | Adventism Affiliation | 1013 | + + + | Race | Unknown | + + + | Ethnic Group | Unknown | + + + Author + + + | Author | [facility] | | | and [place] | + + + | Organization | [facility] | | | [...] | | | | [place] [address] | | + + + + + | Juana Gasca | ECON | [address] | | | | | [place] | | | | | [address] | | + + + + + | Chad Gasca | ECON | Unknown | | + + + + + Care Team Providers + +------+ + | Care Census Clerk Name | Role | Phone | + +------+ + | Timo Lorenzana | PCP | | | MD | | | + +------+ + Reason for Visit + + + | Reason | Comments | + + + | Medication Refill | Lisinopril | + + + Encounter Details +--------+--------+ + + + | Date | Type | Department | Care Team | Description | +--------+--------+ + + + | 06/19/ | Refill | [facility] | Elif Hylton, | Medication Refill | | 2019 | | CARDIOLOGY [facility] | [address] | (Lisinopril) | | | | [address] | [place] | | | | | [address] | [address] | | | | | [place] | | | | | | [address] | | | | | | [phone] | | | +--------+--------+ + + + [...] [place] | | | | | | [address] | | | | | | | [...]
--- OUTSIDE RECORDS SUMMARY | ~2019-12-17 | XMS | Encounter Summary ---
Demographics + + + | Address | [address] | | | [place] [address] | + + + | Home Phone | | + + + | Preferred Language | Unknown | + + + | Marital Status | | + + + | Faith Affiliation | 1013 | + + + [...] | | | | [place] [address] | | + + + + + | Juana Gasca | ECON | [address] | | | | | [place] | | | | | [address] | | + + + + + | Chad Gasca | ECON | Unknown | | + + + + + Care Team Providers + +------+ + | Care Weight Control Lecturer Name | Role | Phone | + [...] | FOLLOW UP) | | | | [place], | | | | | | [place] [address] | | | | | | [phone] | | | +--------+ + + + [...] 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 Electronically [...] [place] | | | | | | [address] | | | | | | | [...]
--- OUTSIDE RECORDS SUMMARY | ~2019-12-17 | XMS | Encounter Summary ---
Demographics + + + | Address | [address] | | | [place] [address] | + + + | Home Phone | | + + + | Preferred Language | Unknown | + + + | Marital Status | | + + + | Methodist Affiliation | 1013 | + + + [...] | | | | [place] [address] | | + + + + + | Juana Ventura | ECON | [address] | | | | | [place] | | | | | [address] | | + + + + + | Chad Ventura | ECON | Unknown | | + + + + + Care Team Providers + +------+ + | Care Senior Center Director Name | Role | Phone | + +------+ + | Timo Lorenzana | PCP | | | MD | | | + +------+ + Reason for Visit + + + | Reason | Comments | + + + | Follow-up | | + + + Encounter Details +--------+---------+ + + + | Date | Type | Department | Care Team | Description | +--------+---------+ + + + | 07/19/ | Office | [facility] | [place], | Cough (Primary Dx); | | 2012 | Visit | PULMONARY [address] | Florence You MD | COPD (chronic | | | | [place], | | obstructive | | | | [place] [address] | | pulmonary disease) | | | | [phone] | | (FORM[facility]LY [facility]); MARY | | | | | | (obstructive sleep | | | | | | apnea) on BiPAP | +--------+---------+ + + + Social [...] + + + | Blood Pressure | 140/78 | 07/19/2012 2:16 PM | | | | | PST | | + + + + + | Pulse | 61 | 07/19/2012 2:16 PM | | | | | PST | | + + + + + | Temperature | - | - | | + + + + + | Respiratory Rate | - | - | | + + + + + | Oxygen Saturation | 96% | 07/19/2012 2:16 PM | | | | | PST | | + + + + + | Inhaled Oxygen | - | - | | | Concentration | | | | + + + + + | Weight | 133.9 kg (295 lb 1.6 | 07/19/2012 2:16 PM | | | | oz) | PST | | + + + + + | Height | 185.4 cm (6' 1") | 07/19/2012 2:16 PM | | | | | PST | | + + + + + | Body Mass Index | 38.93 | 07/19/2012 2:16 PM | | | | | PST | | + + + + + documented in this encounter Patient Instructions Patient Instructions Vanessa Dudley - 07/19/2012 2:35 PM PSTFebruary 2012 Denise Ventura [address] [place] [address] Dear Denise: Thank you for enrolling in [employer]. Please follow the instructions below to view your [employer] online medical record. [employer] allows you to send secure messages to your doctor, view you r test results, renew your prescriptions, schedule appointments, and more. How Do I Sign Up? 1. In your Internet browser, go to [email or web address] 2. Click on the Sign Up Now link in the Sign In box. This will take you to the [facility] Sign Up page. 3. Enter your [employer] access code exactly as it appears below. You will not need to use this code after you sign up. If you do not sign up before the expiration date, you must requ est a new code through your [facility]. [employer] Access Code: [email or web address] Expires: 09/17/2012 14:35 4. Fill in the last four digits of your Social Security Number (xxxx) and Date of (mm/dd/yyyy) when asked and click Submit. You will now be asked to create a [employer] ID. 5. Create a [employer] ID. This will be your [employer] login ID. Your login ID cannot be sharpe ged, so think of one that is secure and easy to remember. 6. Create a [employer] password. You can change your password at any time. 7. Enter your Password Reset Question and Answer. This can be used at a later time if yo u forget your password. 8. Enter your e-mail address. You will receive e-mail notification when new information is available in [employer]. 9. Click Sign Up. You may now view your medical record. Additional Information If you have questions, you can email [email or web address] or call [phone] to talk to our [facility] care team. Please remember, [employer] should NOT be used fo r urgent needs. For all medical emergencies, call 911. Sincerely, Florence La MD Resume Spiriva at 1 capsule inhaled daily. documented in this encounter Progress Notes Florence La MD - 07/19/2012 2:54 PM PSTFormatting of this note might be differe nt from the original. Sleep Follow Up HPI Denise Ventura is a 77 y.o. male patient of Timo Lorenzana here today for follo w up of obstructive sleep apnea and COPD. He notes that he has been wearing their CPAP. Their compliance has been good, he is using it every night. They are not having issues with their CPAP machine such as the sensation of excessive pressure or a poorly fitting mask. He is getting a new mask as he has had it for o viktoriya a year. They feel like they are more rested since starting on CPAP. He has been off of Spiriva since his last visit, and has been using only the Advair. Since their last visit he feels like he has been doing pretty well, but he notes that he has been coughing up a decent amount of sticky tacky phlegm. He is not sure if the phlegm is any wo rse or just a continuation. He is not sure if the hoarseness got any better either. He has n ot had any acute illnesses, other than a urinary tract infection. He is currently on a regim en of Advair and Ventolin as needed. He does feel like this medication regimen is working f or them. They return today for routine follow up. Currently they are using their rescue inha ler, Ventolin, 2 times a week. Currently they are able to walk a couple of blocks at their own pace on level ground. He no tylor that he has been having a fair about of knee pain. He is not exercising regularly, thoug h they do get out and do some amount of walking in the stores. He denies any significant nasal congestion, he is using [place] [facility] [place] to treat any issu es in his nose. He is not having symptoms of heart burn or reflux. He reports that 2011 is the first year that he did not spend a single day in the hospital. Past Medical History Past Medical History Diagnosis Date Coronary artery disease Aortic valve stenosis Mitral valve stenosis COPD (chronic obstructive pulmonary disease) Congestive heart failure Diabetes mellitus, type 2 Hypertension Hypothyroidism Osteoarthritis Otogenic vertigo Anemia Hoarseness MARY (obstructive sleep apnea) Dysphagia Past Surgical History Past Surgical History Procedure Date Mitral valve replacement 1995 Turp 2007 Back surgery lower back x2 Hernia repair x3 Rotator cuff repair Coronary artery stenting x2 Cardiac ablation x2 Pacemaker placement Hemorrhoid surgery Retinal detachment repair Deviated septum repair Ligation of artery in nostril Total hip arthroplasty 2011 right Social History: History Social History Marital Status: Spouse Name: N/A Number of Children: N/A Years of Education: N/A Social History Main Topics Smoking status: Former Smoker -- 3.5 packs/day for 40 years Types: Cigarettes Quit date: 07/22/1990 Smokeless tobacco: Never Used Comment: 80 pack-year Alcohol Use: Yes 1 drink in the evening Drug Use: No Sexually Active: None Other Topics Concern None Social History Narrative None Allergies: Allergies Allergen Reactions Metoprolol Succinate Medications: Outpatient Encounter Prescriptions as of 07/19/2012 Medication Sig Dispense Refill warfarin (COUMADIN) 7.5 mg tablet Take 7.5 mg by mouth Daily. Take 7.5mg on Monday, Mon, and Monday. Take 10mg all other days Ylhuspnjelm-Uqmuxwytu-Miw C-Mn (GLUCOSAMINE 1500 COMPLEX PO) Take 1,500 mg by mouth. Ta ke 2 tablets every AM and 1 tablet every PM Methylsulfonylmethane (MSM) 1500 MG TABS Take 1,500 mg by mouth 3 times daily. CINNAMON PO Take 1,000 mg by mouth 2 times daily. carvedilol (COREG) 3.125 mg tablet 1/2 tablet twice daily Multiple Vitamins-Minerals (EQL CENTRAL-ROSAMARIA) TABS Take one by mouth daily omeprazole (PRILOSEC OTC) 20 mg tablet Take 20 mg by mouth Daily. Calcium Carbonate (CALCIUM 600 PO) two times daily ascorbic acid (CVS VITAMIN C) 250 MG tablet Take 250 mg by mouth 2 times daily. fluticasone-salmeterol (ADVAIR DISKUS) 250-50 mcg/puff diskus inhaler 1 puff inhaled tw ice daily albuterol (VENTOLIN HFA) 90 mcg/puff inhaler 2 puffs inhaled every 4 hours as needed fo r shortness of breath Potassium Chloride Kaylene CR (KLOR-CON M20 PO) CR-TABS - 1 tablet by mouth twice daily multivitamin (THERAGRAN) per tablet 1 tablet by mouth daily Calcium Carbonate-Vitamin D (CALCIUM + D PO) TABS - 1 tablet by mouth 3 times daily nitroglycerin (NITROSTAT) 0.4 mg SL tablet Use as directed as needed lisinopril (PRINIVIL,ZESTRIL) 2.5 MG tablet Take 2.5 mg by mouth Daily. metFORMIN (GLUCOPHAGE) 500 mg tablet Take 500 mg by mouth 2 times daily. aspirin (ASPIRIN LOW DOSE) 81 MG tablet Take 81 mg by mouth Daily. pravastatin (PRAVACHOL) 80 MG tablet Take 80 mg by mouth nightly. levothyroxine (SYNTHROID, LEVOTHROID) 150 mcg tablet Take 150 mcg by mouth Daily. furosemide (LASIX) 40 mg tablet Take 40 mg by mouth every morning. DISCONTD: warfarin (COUMADIN) 7.5 mg tablet Take as directed (7.5mg monday and , 10mg other days) DISCONTD: tiotropium (SPIRIVA HANDIHALER) 18 mcg inhalation capsule Inhale 18 mcg into the lungs Daily. Review of Systems Constitutional: Denies fever, chills, sweats, and change in weight. Sleep: Using BiPAP with good compliance. Eyes: Denies vision change and eye irritation. ENT: Denies earache, decreased hearing, nasal congestion, nosebleeds, sore throat, and ho arseness. Resp: See HPI. CV: Denies chest pain, palpitations, syncope, and peripheral edema. GI: Denies heartburn, nausea, vomiting, and abdominal pain. : Denies difficulty emptying bladder and nocturia. Objective BP 140/78 | Pulse 61 | Ht 1.854 m (6' 1") | Wt 133.856 kg (295 lb 1.6 oz) | BMI 38.93 kg/m2 | SpO2 96% General Appearance: Alert, cooperative, no distress, appears stated age, obese Head: Normocephalic, without obvious abnormality, atraumatic Eyes: PERRL, conjunctiva clear, no scleral icterus, EOM's intact Ears: Normal TM's, external auditory canals, somewhat diminished acuity Nose: Nares normal, septum midline, mucosa normal, no drainage Mouth: No oral lesions or exudate Neck: Supple, symmetrical, no adenopathy Lungs: No accessory muscle use, breath sounds are diminished bilaterally with prolongatio n of the expiratory phase, no wheezes, crackles or rhonchi Chest Wall: No deformity Heart: Regular rate and rhythm, 2/6 systolic murmur Abdomen: Soft, non-tender, non-distended, obese Extremities: No cyanosis, clubbing, 1+ pitting edema Pulses: Radial pulses 2+ and symmetric Skin: Warm and dry Lymph nodes: Cervical and supraclavicular nodes normal Data: Dates: 05/17/12-07/15/12 Maximum IPAP Pressure: 16 cmH2O Median EPAP Pressure: 13.2 cmH2O AHI: 1.2 events/hour Total number of days: 60 Number of days used: 60 Median daily usage: 5 hours 50 minutes Percent of days used for more than 4 hours: 96.7 % Immunization History Administered Date(s) Administered INFLUENZA, PRESERVATIVE FREE IM 04/18/2012 Pneumococcal (Adult) 07/19/2009 Assessment /Plan Mr. Ventura was seen today for follow-up of COPD. Diagnoses and associated orders for this visit: Cough I suspect that his cough has worsened predominately do to the fact that he stopped the Spir dianne. At his last visit he wanted to stop the Spiriva predominantly for financial reasons as the co-pay was quite high. At that time he reported that his symptoms were well controlled . Now he is complaining of increasing cough. I suggested that we try restarting the Spiriv a, and reevaluate him back in about 2 months. If at that time his cough has not improved we can try alternative means of controlling his cough, such as treatment of postnasal drip. I n addition we will check a chest x-ray given his history of tobacco abuse, though I noted th at this was not the most sensitive screening tests for things such as pulmonary malignancy. - XR Chest PA and Lateral; Future Copd (chronic obstructive pulmonary disease) He is currently on Advair. As noted above I would recommend that he resume Spiriva. We wi ll recheck in about 2 months. Mary (obstructive sleep apnea) on bipap Overall his BiPAP machine is going well, his apnea hyponea index is well-controlled. I did advocate getting a new mask on an every six-month basis. I have discussed the download from their PAP machine in detail. This shows that their slee p apnea is well controlled, with an AHI of 1.2. It also shows that their leaks are well con trolled. Comments: On auto BiPAP min EPAP 11 cm H2O, max IPAP 16 cm H2O Return to clinic in 2 months, or sooner with concerns. CC: Timo Lorenzana documented in t his encounter Plan of [...] [place] | | | | | | [address] | | | | | | | | +--------+ + + + + | 06/08/ | Procedure | Cardiology | | | | 2020 | visit | | | | +--------+ + + + + | 09/07/ | Procedure | Cardiology | | | | 2020 | visit | | | | +--------+ + + + + documented as of this encounter Results XR Chest PA and Lateral (07/19/2012 5:33 PM PST) + + | Specimen | + + | | + + + + + | Narrative | Performed At | + + + | [facility] | [place] | | Department [address] [facility] | [facility] | | [ rep [address]] [ rep [facility] | | st zip] Signed | - IMAGING | | | | | Patient Name: DENISE VENTURA Physician: | | | EDER. : 1935 Age: 77 Sex: M Unit #: [id number] | | | Exam Date: 07/19/12 Location: [facility] | | | Report #: [id number] Page: | | | %(RAD)RES..mtdd.print.filter("pg") of %(RAD) | | | RES..mtdd.print.filter("tpg") | | | | | | Accession Number: [id number] | | | TWO-VIEW CHEST CLINICAL HISTORY: [...] Transcribed Date/Time: | | | 07/19/2012 19:42 Mechanic Driver: | | | <<Signature on File>> | | | | | | Orlando Mehta MD07/20/12 0836 <Electronically signed by | | | Orlando Mehta MD> Orlando Mehta MD 07/19/12 | | | 2115 Mechanic Driver: Lj [id number] | | | Florence La MD | | + + + + + + + + | Performing | Address | City/State/Zipcode | Phone Number | | Organization | | | | + + + + + | [address] | [address] | [place] | [phone] | | [facility] | | [address] | | | - IMAGING | | | | + + + + + documented in this encounter Visit Diagnoses + + | Diagnosis | + + | Cough - Primary | + + | COPD (chronic obstructive pulmonary disease) (HCC) Chronic airway obstruction, not | | elsewhere classified | + + | MARY (obstructive sleep apnea) on BiPAP Obstructive sleep apnea (adult) (pediatric) | + + documented in this encounter
--- OUTSIDE RECORDS SUMMARY | ~2019-12-17 | XMS | Encounter Summary ---
Demographics + + + | Address | [address] | | | [place] [address] | + + + | Home Phone | | + + + | Preferred Language | Unknown | + + + | Marital Status | | + + + | Yarsani Affiliation | 1013 | + + + | Race | Unknown | + + + | Ethnic Group | Unknown | + + + Author + + + | Author | [facility] | | | and [place] | + + + | Organization | [facility] | | | [...] | | | | [place] [address] | | + + + + + | Juana Gasca | ECON | [address] | | | | | [place] | | | | | [address] | | + + + + + | Chad Gasca | ECON | Unknown | | + + + + + Care Team Providers + +------+ + | Care Tumblers Supervisor Name | Role | Phone | + [...] Description | +--------+--------+ + + + | 01/15/ | Refill | [facility] [place] | Abhinav, | Medication Refill | | 2015 | | PULMONARY [address] | Florence You MD | | | | | [place], | | | | | | [place] [address] | | | | | | [phone] | | | +--------+--------+ + + + [...] [place] | | | | | | [address] | | | | | | | [...]
--- OUTSIDE RECORDS SUMMARY | ~2019-12-17 | XMS | Encounter Summary ---
Demographics + + + | Address | [address] | | | [place] [address] | + + + | Home Phone | | + + + | Preferred Language | Unknown | + + + | Marital Status | | + + + | Islam Affiliation | 1013 | + + + | Race | Unknown | + + + | Ethnic Group | Unknown | + + + Author + + + | Author | [facility] | | | and [place] | + + + | Organization | [facility] | [...] | | | | [place] [address] | | + + + + + | Juana Gasca | ECON | [address] | | | | | [place] | | | | | [address] | | + + + + + | Chad Gasca | ECON | Unknown | | + + + + + Care Team Providers + +------+ + | Care White Lead Filterer Name | Role | Phone | + [...] + + | 03/28/ | Office | [facility] | [place], | COPD (chronic | | 2013 | Visit | PULMONARY [address] | Florence You MD | obstructive | | | | [place], | | pulmonary disease) | | | | [place] [address] | | (Primary Dx); | | | | [phone] | | Obstructive sleep | | | | | | apnea on BiPAP; | | | | | | 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 Wffcfjauvfj-Casxrfpfo-Eqc C-Mn (GLUCOSAMINE 1500 COMPLEX PO) Take 1,500 [...] nodes: Cervical and supraclavicular nodes normal Data: [facility] Data: Dates: 02/25-03/26/14 Home Health Company: In [...] made to ensure accuracy; however, inadvertent computerized television camera operator errors may be pre sent. Electronically signed by: Florence La MD 03/28/2014 11:30 documented in t his encounter Miscellaneous Notes Miscellaneous - ONBASE THOM MERINO - 03/26/2014 12:00 AM PDT documented in this encounter Plan of Treatment [...] | | | | | [place] | | | | | | [address] | | | | | | | [...]
--- OUTSIDE RECORDS SUMMARY | ~2019-12-17 | XMS | Encounter Summary ---
Demographics + + + | Address | [address] | | | [place] [address] | + + + | Home Phone | | + + + | Preferred Language | Unknown | + + + | Marital Status | | + + + | Amish Affiliation | 1013 | + + + | Race | Unknown | + + + | Ethnic Group | Unknown | + + + Author + + + | Author | [facility] | | | and [place] | + + + | Organization | [facility] | | | [...] | | | | [place] [address] | | + + + + + | Juana Gasca | ECON | [address] | | | | | [place] | | | | | [address] | | + + + + + | Chad Gasca | ECON | Unknown | | + + + + + Care Team Providers + +------+ + | Care Tool Crib Attendant Name | Role | Phone | + [...] + + | 03/08/ | Office | [facility] | Yuri Raymond | Centrilobular | | 2019 | Visit | PULMONOLOGY [address] | Rush Raymond MD [address] | emphysema (HCC) | | | | [place] | [place] | (Primary Dx); | | | | [place], [place] | [place] [address] | Chronic obstructive | | | | [address] | [phone] | pulmonary disease, | | | | [phone] | | unspecified COPD | | | [...] might be dif ferent from the original. [facility] PULMONOLOGY [address] [place] [address] HISTORY: Chief Complaint: I have been asked to assist in the pulmonary evaluation of Serge Zambrano an, 83 y.o. male, for COPD History of Present Illness: Interval history: "Serge Gasca is a 80 year old gentleman referred to me for COPD. He was previously fol lowing with Dr. La at [place] for his pulmonary issues. He is maintained [...] - REDO; Surgeon: Jassi Elizondo MD; Location: [facility] OR; Service: Cardiac; Laterality: N/A; OTHER SURGICAL HISTORY 03/10/2014 CYSTOSTOMY W/ BLADDER DILATION - Procedure: CYSTOSCOPY - DILATATION; Surgeon: Timothy badillo MD; Location: [facility]; Service: Cardiac; Laterality: N/A; PACEMAKER [...] into the lungs 2 (two) times daily. Irgocmqncwo-Zrbgqhtmj-Seq C-Mn (GLUCOSAMINE 1500 COMPLEX PO) (Taking) Take [...] Raymond MD Pulmonary and Critical Care Medicine [facility] Pulmonology documented in this encounter Plan [...] | | | | | [place] | | | | | | [address] | | | | | | | [...]
--- OUTSIDE RECORDS SUMMARY | ~2019-12-17 | XMS | Encounter Summary ---
Demographics + + + | Address | [address] | | | [place] [address] | + + + | Home Phone | | + + + | Preferred Language | Unknown | + + + | Marital Status | | + + + | Hinduism Affiliation | 1013 | + + + | Race | Unknown | + + + | Ethnic Group | Unknown | + + + Author + + + | Author | [facility] | | | and [place] | + + + | Organization | [facility] | | | [...] | | | | [place] [address] | | + + + + + | Juana Gasca | ECON | [address] | | | | | [place] | | | | | [address] | | + + + + + | Chad Gasca | ECON | Unknown | | + + + + + Care Team Providers + +------+ + | Care Senior Courtroom Clerk Name | Role | Phone | [...] | | | | | [place] [address] | | | | | | [phone] | | | +--------+--------+ + + + [...] [place] | | | | | | [address] | | | | | | | [...]
--- OUTSIDE RECORDS SUMMARY | ~2019-12-17 | XMS | Encounter Summary ---
Demographics + + + | Address | [address] | | | [place] [address] | + + + | Home Phone | | + + + | Preferred Language | Unknown | + + + | Marital Status | | + + + | Mandaeism Affiliation | 1013 | + + + | Race | Unknown | + + + | Ethnic Group | Unknown | + + + Author + + + | Author | [facility] | | | and [place] | + + + | Organization | [facility] | | | and [place] | + + + | Address | Unknown | + + + | Phone | Unavailable | + + + Support + + + + + | Name | Relationship | Address | Phone | + + + + + | Frances Gasca | ECON | NA | | | | | [place] [address] | | + + + + + | Juana Gasca | ECON | [address] | | | | | [place] | | | | | [address] | | + + + + + | Chad Gasca | ECON | Unknown | | + + + + + Care Team Providers + +------+ + | Care Stoneworking Belt Sander Name | Role | Phone | + +------+ + PCP | Unavailable | + +------+ + Encounter Details +--------+ + + + + | Date | Type | Department | Care Team | Description | +--------+ + + + + | 06/02/ | Hospital | [facility] | [place], | | | 2010 | Encounter | MED CTR GENER[facility] OP | Florence You MD | | | | | CONV DEPT [address] | | | | | | [place], | | | | | | [place] [address] | | | | | | [phone] | | | +--------+ + + + [...] documented as of this encounter Miscellaneous Notes Pulmonary Function - Florence La MD - 06/02/2011 9:01 AM PSTDATE: 06/02/2011 PULMONARY FUNCTION TEST SPIROMETRY: Prior to administration of inhaled bronchodilator, FVC was mildly reduced at 3. 20 L or 65 % predicted. FEV1 was moderately reduced at 2.03 L or 54% of predicted. FEV1 to FVC ratio was reduced at 63%. After initiation of inhaled bronchodilator, FVC decreased by 4% to 3.07 L or 62% of predicte d. FEV1 decrease by 1% to 2.01 L or 53% of predicted. FEV1 to FVC ratio remained reduced at 66%. IMPRESSION: SPIROMETRY IS CONSISTENT WITH MODERATELY SEVERE OBSTRUCTIVE LUNG DISEASE WITHOU T SIGNIFIC ANT RESPONSE TO INHALED BRONCHODILATOR. CONCOMITANT REDUCTION IN FVC SUGGESTS PO SSIBLE RESTRICTIVE PH YSIOLOGY. DICTATED BY: Florence La MD Pulmonary Medicine JOB #: [id number] EXT JOB #:[id number] EDITED: 06/03/2011 08:55 cc: Timo Lorenzana MD <Electronically Signed by Florence La MD> 06/03/11 2112 documented in this encounter Plan of Treatment +--------+ + + + + | Date | Type | Specialty | Care Team | Description | +--------+ + + + + | 03/09/ | Procedure | Cardiology | | | | 2019 | visit | | | | +--------+ + + + + | 05/06/ | Office | Cardiology | [place], | | | 2019 | Visit | | MD Asad FIELDS | | | | | | [place] | | | | | | [address] | | | | | | | [...]
--- OUTSIDE RECORDS SUMMARY | ~2019-12-17 | XMS | Encounter Summary ---
Demographics + + + | Address | [address] | | | [place] [address] | + + + | Home Phone | | + + + | Preferred Language | Unknown | + + + | Marital Status | | + + + | Catholic Affiliation | 1013 | + + + | Race | Unknown | + + + | Ethnic Group | Unknown | + + + Author + + + | Author | [facility] | | | and [place] | + + + | Organization | [facility] | | | and [place] | + + + | Address | Unknown | + + + | Phone | Unavailable | + + + Support + + + + + | Name | Relationship | Address | Phone | + + + + + | Frances Gasca | ECON | NA | | | | | [place] [address] | | + + + + + | Juana Gasca | ECON | [address] | | | | | [place] | | | | | [address] | | + + + + + | Chad Gasca | ECON | Unknown | | + + + + + Care Team Providers + +------+ + | Care Workforce Planner Name | Role | Phone | + +------+ + | Timo Lorenzana | PCP | | | MD | | | + +------+ + Encounter Details +--------+ + + + + | Date | Type | Department | Care Team | Description | +--------+ + + + + | 12/28/ | Orders Only | [facility] | Cassidy Xavier, | Obstructive sleep | | 2012 | | PULMONARY [address] | RN | apnea on BiPAP | | | | [place], | | | | | | [place] [address] | | | | | | [phone] | | | +--------+ + + + [...] | | | | | [place] | | | | | | [address] | | | | | | | [...]
--- OUTSIDE RECORDS SUMMARY | ~2019-12-17 | XMS | Encounter Summary ---
Demographics + + + | Address | [address] | | | [place] [address] | + + + | Home Phone | | + + + | Preferred Language | Unknown | + + + | Marital Status | | + + + | Gnosticist Affiliation | 1013 | + + + | Race | Unknown | + + + | Ethnic Group | Unknown | + + + Author + + + | Author | [facility] | | | and [place] | + + + | Organization | [facility] | | | [...] | | | | [place] [address] | | + + + + + | Juana Gasca | ECON | [address] | | | | | [place] | | | | | [address] | | + + + + + | Chad Gasca | ECON | Unknown | | + + + + + Care Team Providers + +------+ + | Care Barrel Cooper Name | Role | Phone | + +------+ + PCP | Unavailable | + +------+ + Encounter Details +--------+ + + + + | Date | Type | Department | Care Team | Description | +--------+ + + + + | 03/07/ | Abstract | [facility] | Abhinav, | | | 2011 | | Group - [place] | Florence You MD | | | | | Administration [address] | | | | | | [address] | | | | | | [place] | | | | | | [address] | | | | | | [phone] | | | +--------+ + + + [...] | | | | | [place] | | | | | | [address] | | | | | | | [...]
--- OUTSIDE RECORDS SUMMARY | ~2019-12-17 | XMS | Encounter Summary ---
Demographics + + + | Address | [address] | | | [place] [address] | + + + | Home Phone [...] | | | | [place] [address] | | + + + + + | Juana Gasca | ECON | [address] | | | | | [place] | | | | | [address] | | + + + + + | Chad Gasca | ECON | Unknown | | + + + + + Care Team Providers + +------+ + | Care Straightening Machine Operator Name | Role | Phone | + +------+ + | Timo Lorenzana | PCP | | | MD | | | + +------+ + Reason for Visit +--------+--------+ + | Reason | Onset | Comments | | | Date | | +--------+--------+ + | Other | 03/17/ | productive cough | | | 2014 | | +--------+--------+ + Encounter Details +--------+ + + + + | Date | Type | Department | Care Team | Description | +--------+ + + + + | 03/17/ | Telephone | [facility] [place] | Offenstein, | Other (productive | | 2014 | | PULMONARY [address] | Florence You MD | cough) | | | | [place], | | | | | | [place] [address] | | | | | | [phone] | | | +--------+ + + + [...] this encounter Miscellaneous Notes Telephone Encounter - Madison Simon RN - 03/18/2015 10:32 AM PDTCalled patient and educ ated him about symptomatic management for upper respiratory infections: hydration, warm mois t air, rest, and avoidance of irritants and nutrition. Patient does not have any other URI s ymptoms. He has not expectorated any more blood tinged sputum. He does not want to have a ch est x-ray done, and will keep his follow-up appointment on 03/30/15. Patient stated he was " not too concerned and will listen to his body." Advised to call or go to the ER if symptoms worsen. elephone En rekha - Florence La MD - 03/18/2015 8:47 AM PDTI suspect that he has a URI, pl ease educate on symptomatic management and inquire about any URI symptoms. In addition, please have him get a chest x-ray, preferably here, but can do in adolfo Melvin there will be a delay in getting results. The clinic will have to follow up to make sure results are received. Schedule follow up next available. elephone Madison Phillips RN - 03/17/2015 3:22 PM PDTLarry called concerned with a productiv e cough that has been present for a 2-3 days. Sputum is sticky. He recalled 2 hours ago he had coughed up blood tinged sticky phlegm. He has no fever, no recent acute illness or incre ased shortness of breath. He states he has a dry throat. He has been using sugarless cough d rops for the past couple of days to lubricate his throat. No nasal discharge. He has been ta david his pulmonary medications and nebulizer and inhaler as needed. He currently has an appo intment scheduled on 03/30/15. Informed patient Dr. La is out of the office today and will be returning tomorrow. Advised to watch his sputum and symptoms closely. If symptoms worsen go to the ER. Told diane ent I would discuss with the doctor when she returns tomorrow and call him back. Okay per marilyn macdonald Serge said he would monitor his symptoms and keep his appointment on 03/30/15 if symptoms d o not worsen. documen kamilah in this encounter Plan of Treatment +--------+ [...] | | | | | [place], [place] | | | | | | [address] | | | | | | | [...]
--- OUTSIDE RECORDS SUMMARY | ~2019-12-17 | XMS | Encounter Summary ---
Demographics + + + | Address | [address] | | | [place] [address] | + + + | Home Phone | | + + + | Preferred Language | Unknown | + + + | Marital Status | | + + + | Scientologist Affiliation | 1013 | + + + | Race | Unknown | + + + | Ethnic Group | Unknown | + + + Author + + + | Author | [facility] | | | and [place] | + + + | Organization | [facility] | | | [...] | | | | [place] [address] | | + + + + + | Juana Gasca | ECON | [address] | | | | | [place] | | | | | [address] | | + + + + + | Chad Gasca | ECON | Unknown | | + + + + + Care Team Providers + +------+ + | Care Senior Accounting Associate Name | Role | Phone | + +------+ + | Timo Lorenzana | PCP | | | MD | | | + +------+ + Reason for Visit +---------+--------+ + | Reason | Onset | Comments | | | Date | | +---------+--------+ + | Results | 04/15/ | Chest X-Ray | | | 2014 | | +---------+--------+ + Encounter Details +--------+ + + + + | Date | Type | Department | Care Team | Description | +--------+ + + + + | 04/15/ | Telephone | [facility] [place] | Abhinav, | Results (Chest | | 2014 | | PULMONARY [address] | Florence You MD | X-Ray) | | | | [place], | | | | | | [place] [address] | | | | | | [phone] | | | +--------+ + + + [...] Telephone Encounter - Madison Simon RN - 04/15/2015 11:14 AM PSTCalled Serge and told h im per Dr. La his chest x-ray showed no sign of abnormality to explain coughing up b lood. Okay per Serge. Tdocumented in this encounter Plan of Treatment +--------+ [...] [place] | | | | | | [address] | | | | | | | [...]
--- OUTSIDE RECORDS SUMMARY | ~2019-12-17 | XMS | Encounter Summary ---
Demographics + + + | Address | [address] | | | [place] [address] | + + + | Home Phone | | + + + | Preferred Language | Unknown | + + + | Marital Status | | + + + | Latter Day Affiliation | 1013 | + + + [...] | | | | [place] [address] | | + + + + + | Juana Ventura | ECON | [address] | | | | | [place] | | | | | [address] | | + + + + + | Chad Ventura | ECON | Unknown | | + + + + + Care Team Providers + +------+ + | Care Ceramic Artist Name | Role | Phone | + +------+ + | Timo Lorenzana | PCP | | | MD | | | + +------+ + Encounter Details +--------+ + + + + | Date | Type | Department | Care Team | Description | +--------+ + + + + | 12/20/ | Orders Only | [facility] | Elif Hylton, | | | 2017 | | [address] | MD [address] | | | | | [address] | [place], [place] | | | | | [place], [place] | [address] | | | | | [address] | | | | | | [phone] | | | +--------+ + + + [...] | | | | | [place] | | | | | | [address] | | | | | | | [...] | + +--------+ + + + | ECHO INTERPRETATION | Routin | 12/20/2016 | | Results for this | | OF OUTSIDE FILMS | e | 2:19 PM | | procedure are in the | | | | PDT | | results section. | + +--------+ + + + documented in this encounter Results ECHO Interpretation of Outside Films (12/20/2016 2:19 PM PDT) + + | Specimen | + + | | + + + + + | Impressions | Performed At | + + + | 1. The left ventricle is normal in size, mild concentric hypertrophy | | | and normal systolic function EF 55-60%. 2. The right ventricle is | | | severely enlarged with mild systolic impairement. 3. Normally | | | functioning mechanical prosthetic aortic valve. 4. The mechanical MVR | | | is well seated with stable mean gradient. 5. There is no pericardial | | | effusion. | | + + + + + + | Narrative | Performed At | + + + | Patient Name: SERGE VENTURA Date of : 1935 | | | Performing Physician: Elif Hylton | | | | | | INDICATIONS CHRONIC AFIB, PACEMAKER, CAD HX STENT | | | PLACEMENT IN RAMUS AND LCX, MECHANICAL AVR 2013, MVR 1995 | | | CONCLUSIONS 1. The left ventricle is normal in size, | | | mild concentric hypertrophy and normal systolic function EF 55-60%. | | | 2. The right ventricle is severely enlarged with mild systolic | | | impairement. 3. Normally functioning mechanical prosthetic aortic | | | valve. 4. The mechanical MVR is well seated with stable mean | | | gradient. 5. There is no pericardial effusion. FINDINGS -------- | | | ECG rhythm: Paced rhythm. Study: A 2-dimensional transthoracic | | | echocardiogram with m-mode, spectral and color flow Doppler was | | | perfomed. Study: This was a technically difficult study with | | | suboptimal views. Left Ventricle: Overall left ventricular systolic | | | function is normal with, an EF between 55 - 60 %. Left Ventricle: The | | | left ventricle cavity size is normal. Left Ventricle: There is mild | | | concentric left ventricular hypertrophy. Left Ventricle: There is | | | paradoxical/dysynergic septal motion consistent with RV pacing. Right | | | Ventricle: The right ventricle is severely enlarged. Right | | | Ventricle: The right ventricular systolic function is mildly impaired. | | | Right Ventricle: Pacer/ICD wire seen. Left Atrium: The left atrium | | | is markedly enlarged. Right Atrium: The right atrium is markedly | | | enlarged. Right Atrium: Pacemaker wire seen in the right atrial | | | cavity. Aortic Valve: Peak/mean gradient across the valve is | | | 15.56mmHg/9.07mmHg. Aortic Valve: Normally functioning mechanical | | | prosthetic valve. Mitral Valve: Mild mitral regurgitation is present. | | | Mitral Valve: The mechanical MVR is well seated with stable mean | | | gradient. Tricuspid Valve: The tricuspid valve was not well | | | visualized. Tricuspid Valve: Mild tricuspid regurgitation present. | | | Tricuspid Valve: There is no evidence of pulmonary hypertension. | | | Tricuspid Valve: The right ventricular systolic pressure (pulmonary | | | artery systolic pressure), as measured by Doppler, is 29.00mmHg. | | | Pulmonic Valve: Pulmonic valve appears structurally normal. Pulmonic | | | Valve: Trace pulmonic regurgitation. Pericardium: There is no | | | pericardial effusion. Pericardium: No pleural effusion seen. | | | IVC/Hepatic Veins: The IVC is normal size (1.5-2.5cm) and collapses | | | >50% with sniff, consistent with central venous pressures of 5-10mmHg. | | | Aorta: The aortic root, ascending aorta are within normal | | | dimensions. MEASUREMENTS Ao sinus: 4.42 cm Ao | | | st junct: 3.99 cm LA Major: 6.71 cm EDV(Teich): 159.23 ml | | | IVSd: 1.52 cm LVIDd: 5.68 cm LVPWd: 1.30 cm LVOT Area: | | | 4.44 cm2 LVOT Diam: 2.37 cm %FS: 29.59 % EF(Teich): 55.93 | | | % ESV(Teich): 70.17 ml LVIDs: 4.00 cm SV(Teich): 89.06 ml | | | RVIDd: 3.97 cm LVEF MOD A2C: 61.53 % SV MOD A2C: 91.45 ml | | | LVEF MOD A4C: 56.81 % SV MOD A4C: 98.16 ml EF Biplane: | | | 60.24 % LVEDV MOD BP: 161.72 ml LVESV MOD BP: 64.29 ml LVEDV | | | MOD A2C: 148.61 ml LVLd A2C: 8.26 cm LVEDV MOD A4C: 172.78 | | | ml LVLd A4C: 8.46 cm LVESV MOD A2C: 57.16 ml LVLs A2C: | | | 7.41 cm LVESV MOD A4C: 74.62 ml LVLs A4C: 7.39 cm LAESV(A-L): | | | 213.67 ml LAESV Index (A-L): 88.66 ml/m2 LAAs A2C: 40.42 | | | cm2 LAESV A-L A2C: 192.14 ml LALs A2C: 7.21 cm LAAs A4C: | | | 44.95 cm2 LAESV A-L A4C: 230.04 ml LALs A4C: 7.45 cm RAAs: | | | 36.03 cm2 RAESV A-L: 181.00 ml RAESV MOD: 158.29 ml RALs: | | | 6.08 cm TAPSE: 1.64 cm AV maxP.56 mmHg AV meanPG: | | | 9.06 mmHg AV Vmax: 1.97 m/s AV Vmean: 1.44 m/s AV VTI: | | | 38.62 cm JULIAN Vmax: 1.81 cm2 JULIAN (VTI): 1.83 cm2 AVAI Vmax: | | | 0.00 cm2/m2 AVAI (VTI): 0.00 cm2/m2 LVOT maxP.59 mmHg | | | LVOT meanP.50 mmHg LVSI Dopp: 29.36 ml/m2 LVSV Dopp: | | | 70.78 ml LVOT Vmax: 0.80 m/s LVOT Vmean: 0.58 m/s LVOT VTI: | | | 15.93 cm MV E Hugo: 1.87 m/s MV maxP.74 mmHg MV | | | meanP.16 mmHg MV Vmax: 1.91 m/s MV Vmean: 0.87 m/s MV | | | VTI: 44.84 cm MVA (VTI): 1.57 cm2 MV DecT: 339.15 ms | | | Septal e': 0.05 m/s Septal E/e': 33.19 Lateral e': 0.05 m/s | | | Lateral E/e': 35.94 RAP: 5 mmHg RVSP: 29.00 mmHg TR | | | maxP.00 mmHg TR Vmax: 2.44 m/s Tent Finisher: ROMAN | | | Authenticated by: Elif P[place]east [place] Report Date/Time: 12-22-2016 | | | 18:57:07 | | + + + + + | Procedure Note | + + | Raudel Aguillon Conversion - 01/24/2019 6:35 PM PDT Patient Name: SERGE VENTURA | | of : 1935 Performing Physician: Elif | | [facility] INDICATIONS------ | | -----CHRONIC AFIB, PACEMAKER, CAD HX STENT PLACEMENT IN RAMUS AND LCX, MECHANICAL AVR | | 2013, MVR 1995 CONCLUSIONS 1. The left ventricle is normal in size, mild | | concentric hypertrophy and normal systolic function EF 55-60%.2. The right ventricle is | | severely enlarged with mild systolic impairement.3. Normally functioning mechanical | | prosthetic aortic valve.4. The mechanical MVR is well seated with stable mean | | gradient.5. There is no pericardial effusion. FINDINGS--------ECG rhythm: Paced | | rhythm.Study: A 2-dimensional transthoracic echocardiogram with m-mode, spectral and | | color flow Doppler was perfomed.Study: This was a technically difficult study with | | suboptimal views.Left Ventricle: Overall left ventricular systolic function is normal | | with, an EF between 55 - 60 %.Left Ventricle: The left ventricle cavity size is | | normal.Left Ventricle: There is mild concentric left ventricular hypertrophy.Left | | Ventricle: There is paradoxical/dysynergic septal motion consistent with RV pacing.Right | | Ventricle: The right ventricle is severely enlarged.Right Ventricle: The right | | ventricular systolic function is mildly impaired.Right Ventricle: Pacer/ICD wire | | seen.Left Atrium: The left atrium is markedly enlarged.Right Atrium: The right atrium is | | markedly enlarged.Right Atrium: Pacemaker wire seen in the right atrial cavity.Aortic | | Valve: Peak/mean gradient across the valve is 15.56mmHg/9.07mmHg.Aortic Valve: Normally | | functioning mechanical prosthetic valve.Mitral Valve: Mild mitral regurgitation is | | present.Mitral Valve: The mechanical MVR is well seated with stable mean | | gradient.Tricuspid Valve: The tricuspid valve was not well visualized.Tricuspid Valve: | | Mild tricuspid regurgitation present.Tricuspid Valve: There is no evidence of pulmonary | | hypertension.Tricuspid Valve: The right ventricular systolic pressure (pulmonary artery | | systolic pressure), as measured by Doppler, is 29.00mmHg.Pulmonic Valve: Pulmonic valve | | appears structurally normal.Pulmonic Valve: Trace pulmonic regurgitation.Pericardium: | | There is no pericardial effusion.Pericardium: No pleural effusion seen.IVC/Hepatic | | Veins: The IVC is normal size (1.5-2.5cm) and collapses >50% with sniff, consistent with | | central venous pressures of 5-10mmHg.Aorta: The aortic root, ascending aorta are within | | normal dimensions. MEASUREMENTS Ao sinus: 4.[address] junct: 3.99 cmLA | | Major: 6.71 cmEDV(Teich): 159.23 mlIVSd: 1.52 cmLVIDd: 5.68 cmLVPWd: 1.30 | | cmLVOT Area: 4.44 [id number] Diam: 2.37 cm%FS: 29.59 %EF(Teich): 55.93 %ESV(Teich): | | 70.17 mlLVIDs: 4.00 cmSV(Teich): 89.06 mlRVIDd: 3.97 cmLVEF MOD A2C: 61.53 | | %SV MOD A2C: 91.45 mlLVEF MOD A4C: 56.81 %SV MOD A4C: 98.16 mlEF Biplane: 60.24 | | %LVEDV MOD BP: 161.72 mlLVESV MOD BP: 64.29 mlLVEDV MOD A2C: 148.61 mlLVLd A2C: | | 8.26 cmLVEDV MOD A4C: 172.78 mlLVLd A4C: 8.46 cmLVESV MOD A2C: 57.16 mlLVLs A2C: | | 7.41 cmLVESV MOD A4C: 74.62 mlLVLs A4C: 7.39 cmLAESV(A-L): 213.67 mlLAESV Index | | (A-L): 88.66 ml/m2LAAs A2C: 40.42 [id number] A-L A2C: 192.14 mlLALs A2C: 7.21 | | cmLAAs A4C: 44.95 [id number] A-L A4C: 230.04 mlLALs A4C: 7.45 cmRAAs: 36.03 | | [id number] A-L: 181.00 mlRAESV MOD: 158.29 mlRALs: 6.08 cmTAPSE: 1.64 cmAV maxPG: | | 15.56 mmHgAV meanP.06 mmHgAV Vmax: 1.97 m/Lauren Vmean: 1.44 m/Lauren VTI: 38.62 | | cmAVA Vmax: 1.81 cm2AVA (VTI): 1.83 [id number] Vmax: 0.00 cm2/m2AVAI (VTI): 0.00 | | cm2/m2LVOT maxP.59 mmHgLVOT meanP.50 mmHgLVSI Dopp: 29.36 ml/m2LVSV Dopp: | | 70.78 mlLVOT Vmax: 0.80 m/sLVOT Vmean: 0.58 m/sLVOT VTI: 15.93 cmMV E Hugo: | | 1.87 m/sMV maxP.74 mmHgMV meanP.16 mmHgMV Vmax: 1.91 m/sMV Vmean: 0.87 | | m/sMV VTI: 44.84 cmMVA (VTI): 1.57 cm2MV DecT: 339.15 msSeptal e': 0.05 | | m/sSeptal E/e': 33.19Lateral e': 0.05 m/sLateral E/e': 35.94RAP: 5 mmHgRVSP: | | 29.00 mmHgTR maxP.00 mmHgTR Vmax: 2.44 m/s Tent Finisher: DBSAuthenticated by: | | [facility] Date/Time: 12-22-2016 18:57:07 IMPRESSION: 1. The left ventricle | | is normal in size, mild concentric hypertrophy and normal systolic function EF 55-60%.2. | | The right ventricle is severely enlarged with mild systolic impairement.3. Normally | | functioning mechanical prosthetic aortic valve.4. The mechanical MVR is well seated with | | stable mean gradient.5. There is no pericardial effusion. | |LA Major: 6.71 cm | |EDV(Teich): 159.23 ml | |IVSd: 1.52 cm | |LVIDd: 5.68 cm | |LVPWd: 1.30 cm | |LVOT Area: 4.44 cm2 | |LVOT Diam: 2.37 cm | |%FS: 29.59 % | |EF(Teich): 55.93 % | |ESV(Teich): 70.17 ml | |LVIDs: 4.00 cm | |SV(Teich): 89.06 ml | |RVIDd: 3.97 cm | |LVEF MOD A2C: 61.53 % | |SV MOD A2C: 91.45 ml | |LVEF MOD A4C: 56.81 % | |SV MOD A4C: 98.16 ml | |EF Biplane: 60.24 % | |LVEDV MOD BP: 161.72 ml | |LVESV MOD BP: 64.29 ml | |LVEDV MOD A2C: 148.61 ml | |LVLd A2C: 8.26 cm | |LVEDV MOD A4C: 172.78 ml | |LVLd A4C: 8.46 cm | |LVESV MOD A2C: 57.16 ml | |LVLs A2C: 7.41 cm | |LVESV MOD A4C: 74.62 ml | |LVLs A4C: 7.39 cm | |LAESV(A-L): 213.67 ml | |LAESV Index (A-L): 88.66 ml/m2 | |LAAs A2C: 40.42 cm2 | |LAESV A-L A2C: 192.14 ml | |LALs A2C: 7.21 cm | |LAAs A4C: 44.95 cm2 | |LAESV A-L A4C: 230.04 ml | |LALs A4C: 7.45 cm | |RAAs: 36.03 cm2 | |RAESV A-L: 181.00 ml | |RAESV MOD: 158.29 ml | |RALs: 6.08 cm | |TAPSE: 1.64 cm | |AV maxP.56 mmHg | |AV meanP.06 mmHg | |AV Vmax: 1.97 m/s | |AV Vmean: 1.44 m/s | |AV VTI: 38.62 cm | |JULIAN Vmax: 1.81 cm2 | |JULIAN (VTI): 1.83 cm2 | |AVAI Vmax: 0.00 cm2/m2 | |AVAI (VTI): 0.00 cm2/m2 | |LVOT maxP.59 mmHg | |LVOT meanP.50 mmHg | |LVSI Dopp: 29.36 ml/m2 | |LVSV Dopp: 70.78 ml | |LVOT Vmax: 0.80 m/s | |LVOT Vmean: 0.58 m/s | |LVOT VTI: 15.93 cm | |MV E Hugo: 1.87 m/s | |MV maxP.74 mmHg | |MV meanP.16 mmHg | |MV Vmax: 1.91 m/s | |MV Vmean: 0.87 m/s | |MV VTI: 44.84 cm | |MVA (VTI): 1.57 cm2 | |MV DecT: 339.15 ms | |Septal e': 0.05 m/s | |Septal E/e': 33.19 | |Lateral e': 0.05 m/s | |Lateral E/e': 35.94 | |RAP: 5 mmHg | |RVSP: 29.00 mmHg | |TR maxP.00 mmHg | |TR Vmax: 2.44 m/s | | | |Tent Finisher: DBS | |Authenticated by: Elif Hylton | |Report Date/Time: 12-22-2016 18:57:07 | | | |IMPRESSION: | |1. The left ventricle is normal in size, mild concentric hypertrophy and normal systolic fu nction EF 55-60%. | |2. The right ventricle is severely enlarged with mild systolic impairement. | |3. Normally functioning mechanical prosthetic aortic valve. | |4. The mechanical MVR is well seated with stable mean gradient. | |5. There is no pericardial effusion. | + + documented in this encounter Visit Diagnoses Not on filedocumented in this encounter"
--- OUTSIDE RECORDS SUMMARY | ~2019-12-17 | XMS | Encounter Summary ---
Demographics + + + | Address | [address] | | | [place] [address] | + + + | Home Phone [...] | | | | [place] [address] | | + + + + + | Juana Gasca | ECON | [address] | | | | | [place] | | | | | [address] | | + + + + + | Chad Gasca | ECON | Unknown | | + + + + + Care Team Providers + +------+ + | Care Production Support Specialist Name | Role | Phone | + +------+ + PCP | Unavailable | + +------+ + Encounter Details +--------+ + + + + | Date | Type | Department | Care Team | Description | +--------+ + + + + | 07/16/ | Hospital | [facility] | Enrique Graf, | VITREOUS HEMORRHAGE | | 2001 | Encounter | [facility] | [address] | ([facility]) | | | | OUTPATIENT | [place], [place] | | | | | PROCEDURES [address] | [address] | | | | [address] | | | | | | [place], [place] | | | | | | [address] | | | | | | [phone] | | | +--------+ + + + [...] | 05/06/ | Office | Cardiology | [place], [place], | | | 2019 | Visit | | [address] | | | | | | [place] | | | | | | [address] | | | | | | | [...] + | Diagnosis | + + | Vitreous hemorrhage (HCC) Vitreous hemorrhage | + + documented in this encounter"
--- OUTSIDE RECORDS SUMMARY | ~2019-12-17 | XMS | Clinical Summary ---
Demographics + + + | Address | [address] | | | [place] [address] | + + + | Home Phone | | + + + | Preferred Language | Unknown | + + + | Marital Status | | + + + | Samaritan Affiliation | 1013 | + + + | Race | Unknown | + + + | Ethnic Group | Unknown | + + + Author + + + | Author | [facility] | | | and [place] | + + + | Organization | [facility] | | | [...] | | | | [place] [address] | | + + + + + | Juana Gasca | ECON | [address] | | | | | [place] | | | | | [address] | | + + + + + | Chad Gasca | ECON | Unknown | | + + + + + Care Team Providers + +------+ + | Care District Court Administrator Name | Role | Phone | + +------+ + | Timo Lorenzana | PCP | | | MD | | | + +------+ + Allergies + + + + + + | Active Allergy | Reactions | Severity | Noted | Comments | | | | | Date | | + + + + + + | Metoprolol Succinate | Swelling | | | | + + + + + + | Sulfa Antibiotics | Hives | High | 02/10/20 | Pt does not | | | | | 18 | remember when | | | | | | reaction happened | + + + + + + Medications + + + +---------+------+------+-------+ | Medication | Sig | Dispensed | Refills | Star | End | Statu | | | | | | t | Date | s | | | | | | Date | | | + + + +---------+------+------+-------+ | pravastatin | Take 80 mg by mouth | | 0 | 02/03 | | Activ | | (PRAVACHOL) 80 MG | nightly. | | | 09/22 | | e | | tablet | | | | 12 | | | + + + +---------+------+------+-------+ | levothyroxine | Take 150 mcg by | | 0 | / | | Activ | | (SYNTHROID, | mouth Daily. | | | 10/22 | | e | | LEVOTHROID) 150 mcg | | | | 12 | | | | tablet | | | | | | | + + + +---------+------+------+-------+ | nitrofurantoin | Take 50 mg by mouth | | 0 | | | Activ | | (MACRODANTIN) 50 MG | nightly. | | | | | e | | capsule | | | | | | | + + + +---------+------+------+-------+ | CINNAMON PO | Take 1,000 mg by | | 0 | | | Activ | | | mouth daily. | | | | | e | + + + +---------+------+------+-------+ | | Take 3,000 mg by | | 0 | | | Activ | | Glucosamine-Chondroi | mouth daily. | | | | | e | | t-Vit C-Mn | | | | | | | | (GLUCOSAMINE 1500 | | | | | | | | COMPLEX PO) | | | | | | | + + + +---------+------+------+-------+ | MULTIPLE | Take by mouth | | 0 | | | Activ | | VITAMINS-MINERALS ER | daily. | | | | | e | | PO | | | | | | | + + + +---------+------+------+-------+ | cyanocobalamin | Take 1,000 mcg by | | 0 | | | Activ | | (VITAMIN B-12) 1000 | mouth daily. | | | | | e | | MCG tablet | | | | | | | + + + +---------+------+------+-------+ | omeprazole | Take 20 mg by mouth | | 0 | | | Activ | | (PRILOSEC) 20 mg | every morning before | | | | | e | | capsule | breakfast. | | | | | | + + + +---------+------+------+-------+ | Respiratory | by Does not apply | | 0 | | | Activ | | Therapy Supplies | route as needed. | | | | | e | | (NEBULIZER | | | | | | | | COMPRESSOR) KIT | | | | | | | + + + +---------+------+------+-------+ | albuterol 2.5 mg/3 | Take 3 mLs by | | 0 | 07/2 | | Activ | | mL nebulizer | nebulization every 6 | | | 3/20 | | e | | solution | (six) hours as | | | 18 | | | | | needed for Wheezing. | | | | | | + + + +---------+------+------+-------+ | metFORMIN | Take 850 mg by mouth | | 0 | 02/0 | | Activ | | (GLUCOPHAGE) 850 mg | 3 (three) times | | | 8/20 | | e | | tablet | daily. | | | 17 | | | + + + +---------+------+------+-------+ | tiotropium | INHALE THE CONTENTS | 90 | 3 | 10/1 | | Activ | | (SPIRIVA HANDIHALER) | OF 1 CAPSULE VIA | capsule | | 4/20 | | e | | 18 mcg inhalation | HANDIHALER DAILY | | | 19 | | | | capsule | | | | | | | + + + +---------+------+------+-------+ | tamsulosin | Take 0.4 mg by mouth | | 0 | | | Activ | | (FLOMAX) 0.4 mg CAPS | nightly. | | | | | e | + + + +---------+------+------+-------+ | aspirin 81 mg EC | Take 81 mg by mouth | | 0 | | | Activ | | tablet | Daily. | | | | | e | + + + +---------+------+------+-------+ | Albuterol | Inhale into the | | 0 | | | Activ | | (VENTOLIN IN) | lungs. | | | | | e | + + + +---------+------+------+-------+ | lisinopril | Take 1 tablet by | 90 | 3 | 06/05 | 06/05 | Activ | | (PRINIVIL,ZESTRIL) | mouth Daily. | tablet | | 5/20 | 4/20 | e | | 2.5 MG tablet | | | | 20 | 21 | | + + + +---------+------+------+-------+ | WIXELA INHUB | INHALE 1 PUFF INTO | 180 | 3 | 03/1 | | Activ | | 100-50 MCG/DOSE | LUNGS TWO TIMES A | each | | 0/20 | | e | | diskus | DAY | | | 20 | | | | inhalerIndications: | | [...] TABLETS BY | 360 | 1 | 05 | | Activ | | (DEMADEX) 20 mg | MOUTH 2 TIMES DAILY | tablet | | 01/22 | | e | | tablet | NEEDED. | | | 20 | | | + + + +---------+------+------+-------+ | carvedilol (COREG) | Take 1 tablet by | 180 | 3 | 10/03 | 05 | Activ | | 3.125 mg tablet | mouth 2 times daily | tablet | | 01/22 | 820 | e | | | (with breakfast & | | | 20 | 21 | | | | dinner). | | | | | | + + + +---------+------+------+-------+ | potassium chloride | Take 1 tablet by | 90 | 3 | 05/1 | 05/1 | Activ | | (KLOR-CON M20) 20 | mouth Daily. | tablet | | 8/20 | 8 | e | | mEq ER tablet | | | | 20 | 21 | | + + + +---------+------+------+-------+ | warfarin | Take 1 tablet by | 90 | 3 | 11/03 | | Activ | | (COUMADIN) 10 mg | mouth Daily. | tablet | | 0/20 | | e | | tablet | | | | 20 | | | + + + +---------+------+------+-------+ Active Problems + + + | Problem | Noted Date | + + + | Heart block | 10/31/2019 | + + + + + | Overview: Added automatically from request for surgery | | [id number] | + + + + + | Gastro-esophageal reflux disease with esophagitis | 01/19/2019 | + + + | Centrilobular emphysema | 03/10/2016 | + + + | Rheumatic valvular disease | 04/03/2014 | + + + + + | Overview: Last Assessment & Plan: Hx MVR/AVR (RHD). 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 Anticoagulation managed by | | [facility].Hx CABG: no, but MVR 1995, | | CarboMedics 31 mm valve (MS), AVR 2013, On-X ().Last Echo, | | 05/06/2014: AVR stable mild AI, peak/mean gradients 22/13mmHg, MVR | | stabble, mean gradient 6mmHg, moderate concetric LVH, LVEF 47%, | | severe LAE, moderate ELTON, RVE, mild TR, trace PI, est systolic | | PAP 35-40mmHg, pacing catheter in RV. | + + + + + | S/P AVR (aortic valve replacement) | 03/28/2014 | + + + + + | Overview: 03/10/2014 at [facility] | + + + + + | S/P MVR (mitral valve replacement) | 03/28/2014 | + + + | Cardiac pacemaker in situ | 02/27/2014 | + + + | Atrial fibrillation, chronic | 02/27/2014 | + + + + + | Overview: Last Assessment & Plan: Chronic A fib. Long and | | complex Hx, eventually, AV Claire ablation, pacemaker therapy. | | Has mechanical MVR/AVR, chronically anticoagulated. Denies any | | new visual disturbances, dysarthria, dysphasia, lateralizing | | signs or symptoms. No significant bleeding or bruising.Pacemaker | | implanted 08/30/2007, Maris Shaffer 1291, SN: [id number].Last | | interrogation 04/16/2015: battery "good", 3+years, device stable, | | VVI-R (60/130), V-paced 99%. | + + + + + | Urethral stricture | 12/28/2012 | + + + | Dysphagia | 02/21/2012 | + + + + + | Overview: ICD-10 Record update | + + + + + | Obstructive sleep apnea on BiPAP | 10/18/2011 | + + + | COPD (chronic obstructive pulmonary disease) | 06/02/2011 | + + + | Diabetes mellitus, type II | | + + + | Essential hypertension, benign | | + + + | Hypothyroidism | | + + + | Osteoarthritis | | + + + | Otogenic vertigo | | + + + | Atherosclerosis of [place] coronary artery of [place] heart without | | | angina pectoris | | + + + + + | Overview: Last Assessment & Plan: 2V-CAD, Hx PCI/stent, LVEF | | 50%. 80yo WM, he continues to be modestly active, | | denying any chest discomfort, significant shortness breath, | | palpitations, or lightheadedness. Denies any new visual | | disturbances, dysarthria, dysphasia, lateralizing signs or | | symptoms. No significant bleeding or bruising. Labs reviewed | | with patient. Device stable. Tolerating medications. No | | changes in therapy. Endocarditis prophylaxis reenforced.Hx CABG: | | no, but MVR 1995, CarboMedics 31 mm valve (RHD/MS), AVR 2013, | | On-X (RHD/).Hx PCI/stent: 2004, Ramus (2.5*12mm Taxus SHIRLEY), LCx | | (3.5*16mm Taxus SHIRLEY).Hx Pacemaker/ICD: 08/30/2007, Guidant | | Insignia 1291, SN: [id number] Cath, 03/09/2014: RA: 80/13 mean | | 16mmHg, RV: 71/19, PAP: 69/34, PCWP: 32 | | LVEDP: 21, AoV: P-P 46, mean 40mmHg, CO(F): 4.4, | | CO(Th): 5.0, JULIAN(F): 0.7, JULIAN(Th): 0.9cm2 | | Cor: left main OK, LAD OK, ramus 20% in-stent | | restenosis, LCx OK, 10% distal RCA, PDA OK.Last Echo, 05/06/2014: | | AVR stable mild AI, peak/mean gradients 22/13mmHg, MVR stabble, | | mean gradient 6mmHg, moderate concetric LVH, LVEF 47%, severe | | LAE, moderate ELTON, RVE, mild TR, trace PI, est systolic PAP | | 35-40mmHg, pacing catheter in RV. Last stress test, Adenosine | | Cardiolite, 07/07/2010: fixed apical defect, no reversible | | ischemia, LV enlarged, LVEF 46%ECG, 07/16/2015: A fib, V-paced | | 100%. | + + Resolved Problems + + + + | Problem | Noted | Resolved | | | Date | Date | + + + + | MARY treated with BiPAP | 08/06/19 | | | | 17 | 9 | + + + + | Hyperlipidemia | 07/17/19 | | | | 15 | 9 | + + + + + + | Overview: Last Assessment & Plan: Hyperlipidemia, at goal, | | continue current meds at current dose (Pravastatin). Labs | | reviewed with patient.Lab, 05/14/2015: T Chol: 122, LDL-Chol: 62, | | HDL-Chol: 38, Tri Liver enzymes | | NML, K: 4.0, BUN/Cr: 30/1.3 (GFR 52), glu: 138 | | TSH: 0.411, HgbA1c: 6.8, WBC: 8.4, H/H: 13.5/41.7, plt: | | 173, ESR: 22, CRP: 8.5 | + + + + + + | Hypertension | 02/28/20 | | | | 14 | 0 | + + + + + + | Overview: Last Assessment & Plan: HTN, controlled, continue | | current meds at current doses (carvedilol, lisinopril, | | torsemide). | + + + + + + | Nocturnal hypoxemia due to emphysema | 03/29/20 | | | | 13 | 9 | + + + + | Hoarseness | 10/18/19 | | | | 12 | 9 | + + + + | Dyspnea on exertion | 06/02/20 | | | | 11 | 5 | + + + + | Anemia | | | | | | 9 | + + + + | Congestive heart failure | | | | | | 5 | + + + + | Calcific aortic stenosis | | | | | | 4 | + + + + | Mitral valve stenosis | | | | | | 4 | + + + + | Atrial fibrillation | | | | | | 9 | + + + + + + | Overview: s/p ablation and pacemaker | + + Encounters +--------+ + + + + | Date | Type | Specialty | Care Team | Description | +--------+ + + + + | 12/02/ | Telephone | Cardiology | Mulu Hylton, | Medication Question | | 2019 | | | MD | (Enoxaparin) | +--------+ + + + + | 11/25/ | Procedure | Cardiology | | Cardiac pacemaker in | | 2020 | visit | | | situ (Primary Dx) | +--------+ + + + + | 11/17/ | Telephone | Cardiology | Coty Bruner, | Post-op Question | 2019 | | | ENVIRONMENTAL STUDIES FACULTY MEMBER | | +--------+ + + + + | 11/13/ | Documentati | Cardiology | Spenser Potter, | Other (Implant | 2019 | on | | MD | Record) | +--------+ + + + + | 11/12/ | Surgery | Cardiology | Spenser Potter, | CV EP PM GEN CHANGE | 2019 | | | MD | | +--------+ + + + + | 11/12/ | Anesthesia | Cardiology | [place], | | | 2019 | Event | | MANAGER INVESTIGATIONS | | +--------+ + + + + | 11/12/ | Hospital | Cardiology | Spenser Potter, | Heart block; Heart | | 2020 | Encounter | | MD | block; Cardiac | | | | | | pacemaker in situ; | | | | | | Atrial fibrillation, | | | | | | chronic (HCC); S/P | | | | | | MVR (mitral valve | | | | | | replacement) | +--------+ + + + + | 11/11/ | Telephone | Cardiology | Spenser Potter, | Pre-Op | | 2019 | | | MD | | +--------+ + + + + | 11/10/ | Telephone | Cardiology | Spesner Potter, | Cardiac Problem | | 2019 | | | MD | | +--------+ + + + + | 10/29/ | Office | Cardiology | Mulu Hylton, | Atrial fibrillation, | | 2019 | Visit | | MD | chronic (HCC) | | | | | | (Primary Dx); | | | | | | Essential | | | | | | hypertension, | | | | | | benign; | | | | | | Atherosclerosis of | | | | | | [place] coronary | | | | | | artery of [place] | | | | | | heart without angina | | | | | | pectoris; S/P AVR | | | | | | (aortic valve | | | | | | replacement); S/P | | | | | | MVR (mitral valve | | | | | | replacement) | +--------+ + + + + | 10/29/ | Telephone | Cardiology | Spenser Potter, | Cardiac Problem | | 2020 | | | MD | | +--------+ + + + + | 10/20/ | Refill | Cardiology | Mulu Hylton, | Medication Refill | | 2019 | | | MD | (Torsemide, | | | | | | Carvedilol, | | | | | | Potassium) | +--------+ + + + + from Last 3 Months Immunizations + + + + | Name | Administration Dates | Next Due | + + + + | INFLUENZA 66 Y OR >, | 03/22/2018, 02/03/2018, 01/24/2016, | | | TRIVALENT HIGH-DOSE | 01/28/2015, 01/17/2014, 01/30/2013, | | | | 03/26/2012 | | + + + + | INFLUENZA PF 18 Y OR | 02/01/2014, 02/03/2013, 04/18/2012 | | | >,TRIVALENT | | | | RECOMBINANT | | | + + + + | INFLUENZA PF 66 Y OR | 01/29/2019, 01/23/2018, 01/18/2017 | | | >,TRIVALENT (FLUAD) | | | + + + + | INFLUENZA PF | 02/01/2014, 02/14/2011, 03/18/2010 | | | TRIVALENT(PED/ADOL/A | | | | THERON MALDONADO | | | + + + + | INFLUENZA, | 04/18/2012, 05/01/2009 | | | UNSPECIFIED | | | | FORMULATION | | | + + + + | PNEUMOCOCCAL | 07/01/2014, 05/01/2014, 03/01/2014 | | | CONJUGATE 13-VALENT | | | | (PCV13) | | | + + + + | PNEUMOCOCCAL | 03/22/2011, 06/16/2010, 07/19/2009 | | | POLYSACCHARIDE | | | | 23-VALENT (PPSV23) | | | + + + + | TDAP, (ADOL/ADULT) | 07/15/2016 | | + + + + | ZOSTER NON-LIVE | 03/23/2018, 10/16/2017 | | | (SHINGRIX) | | | + + + + Family History + + +------+ + | Medical History | Relation | Name | Comments | + + +------+ + | High blood pressure | Brother | | | + + +------+ + | Other (see comment) | Brother | | DVT | + + +------+ + | Other (see comment) | Brother | | retinal detachment | + + +------+ + | Drug abuse | Daughter | | | + + +------+ + | Heart disease | Father | | | + + +------+ + | Other (see comment) | Father | | ASHD | + + +------+ + | Heart disease | Mother | | | + + +------+ + | Arthritis | Sister | | | + + +------+ + | Diabetes | Son | | | + + +------+ + | Bipolar disorder | Son | | | + + +------+ + + +------+ + + | Relation | Name | Status | Comments | + +------+ + + | Brother | | Alive | | + +------+ + + | Brother | | Alive | | + +------+ + + | Brother | | Alive | | + +------+ + + | Brother | | | | + +------+ + + | Brother | | | | + +------+ + + | Brother | | | | + +------+ + + | Brother | | | | + +------+ + + | Daughter | | | | | | | (Age | | | | | 40) | | + +------+ + + | Daughter | | | | + +------+ + + | Father | | | heart disease-quad bypass | | | | (Age | | | | | 67) | | + +------+ + + | Mother | | | heart disease | | | | (Age | | | | | 83) | | + +------+ + + | Sister | | Alive | | + +------+ + + | Sister | | Alive | | + +------+ + + | Sister | | | | + +------+ + + | Son | | Alive | | + +------+ + + | Son | | Alive | | + +------+ + + | Son | | Alive | | + +------+ + + | Son | | | | + +------+ + + | Son | | | | + +------+ + + Social [...] | | + + + + + Plan of Treatment +--------+ + + + + | Date | Type | Specialty | Care Team | Description | +--------+ + + + + | 03/09/ | Procedure | Cardiology | | | | 2019 | visit | | | | +--------+ + + + + | 05/06/ | Office | Cardiology | Mulu Hylton, | | | 2019 | Visit | | MD [facility] | | | | | | [place] | | | | | | [id number] | | | | | | | [...] Health Maintenance | Due Date | Last | Comments | | | | Done | | + + + + + | Diabetic Eye Exam | | | | | | 4 | | | + + + + + | Diabetic Foot Exam | | | | | | 4 | | | + + + + + | Hemoglobin A1c | | 03/11/20 | | | Screening | 5 | 14 | | + + + + + | Adult Annual | | | | | Wellness Visit | 5 | | | + + + + + | Vaccine: Influenza | | 01/30/20 | | | (#1) | 0 | 19, | | | | | 03/22/20 | | | | | 18, | | | | | 02/04/20 | | | | | 18, | | | | | Addition | | | | | al | | | | | history | | | | | exists | | + + + + + | Vaccine: | | 07/15/19 | | | Dtap/Tdap/Td (2 - | 7 | 17 | | | Td) | | | | + + + + + | Vaccine: | Completed | 07/01/19 | | | Pneumococcal 65+ | | 15, | | | | | 05/01/20 | | | | | 14, | | | | | 03/01/20 | | | | | 14, | | | | | Addition | | | | | al | | | | | history | | | | | exists | | + + + + + | Vaccine: Zoster | Completed | 03/23/20 | | | | | 18, | | | | | 10/17/19 | | | | | 18 | | + + + + + Implants + +--------+-------+ +--------+--------+--------+ | Implanted | Type | Area | Manufacture | Device | Shelf | Model | | | | | r | | Expira | / | | | | | | Identi | tion | Serial | | | | | | fier | Date | / Lot | + +--------+-------+ +--------+--------+--------+ | Pacemaker Accolade Vr Mri - | Pacema | | [place] | [id number] | 06/19/ | [id number] | | [id number]: Qty: 1 on | ker | | SCIENTIFIC | [id number] | 2021 | /[id number] | | 11/13/2019 by Spenser Potter | | | ERICH - BSCI | 04 | | 8 / | | MD [facility] at [facility] | | | | | | | | [facility] | | | | | | | + +--------+-------+ +--------+--------+--------+ | Pacing Wire Dual | | N/A: | JORGITO | | 10/02/ | 030-00 | | 030-005 - | | Heart | MEDICAL | | 2018 | 5 / | | [id number]: Qty: 1 on | | | SPECIALTI - | | | /166 | | 03/10/2014 | | | [facility] | | | | + +--------+-------+ +--------+--------+--------+ | Pacing Wire Dual | | N/A: | JORGITO | | 10/02/ | 030-00 | | 030-005 - | | Heart | MEDICAL | | 2019 | 5 / | | [id number]: Qty: 1 on | | | SPECIALTI - | | | /166 | | 03/10/2014 | | | [facility] | | | | + +--------+-------+ +--------+--------+--------+ | Valve Aortic Mec 23mm | | N/A: | NA UNKNOWN | | 10/02/ | ONXACE | | Onxace-23 S/N - | | Heart | | | 2019 | -23 | | [id number]: Qty: 1 on | | | | | | /[id number] | | 03/10/2014 | | | | | | 02 / | + +--------+-------+ +--------+--------+--------+ | Pacing Wire Dual | | N/A: | JORG[facility]O | | 09/02/ | 030-00 | | 030-005 - | | Heart | MEDICAL | | 2019 | 5 / | | [id number]: Qty: 1 on | | | SPECIALTI - | | | /164 | | 03/10/2014 | | | [facility] | | | | + +--------+-------+ +--------+--------+--------+ Procedures + +--------+ + + + [...] | + +--------+ + + + | ECG 12 LEAD | Routin | 10/30/2019 | Atrial | Results for this | | | e | 2:39 PM | fibrillation, | procedure are in the | | | | PDT | chronic (HCC) | results section. | + +--------+ + + + | LABS - EXTERNAL SCAN | | 10/04/2019 | | Results for this | | | | 12:00 AM | | procedure are in the | | | | PDT | | results section. | + +--------+ + + + from Last 3 Months Results Device Interrogation (11/26/2019 1:00 PM PDT) + + + | Narrative | Performed At | + + + | Micaela Barger RN 11/28/2019 10:37 AM PACEMAKER | [facility] | | INTERROGATION REPORT Name: Serge Maddox Gasca PCP: Timo Muniz | | | MD [place] : 1935 Primary cardiology | | | provider: [facility] Primary electrophysiology provider: Spenser | | | Tariq Mode of interrogation: Seen in cardiac device | | | clinic Device: [employer] Battery Longevity: 10.5 | | | [...] performed by: Yesika Cadet, | | | Fetchnotes Reviewed by: GINGER Hinojosa | | + + + + +---------+ + + | Performing | Address | City/State/Zipcode | Phone Number | | Organization | | | | + +---------+ + + | [facility] | | | | + +---------+ + + Protime INR (11/13/2019 10:45 AM PDT) + [...] | | | | | performed at [facility] | | | | | | [facility];[place], [place] | | | | | | [address] | | | | + + + + + + + + | Specimen | + + | Blood | + + + + + + + | Performing | Address | City/State/Zipcode | Phone Number | | Organization | | | | + + + + + | [facility] | [address] | [place] [address] | [phone] | + + + + + Basic [...] | 9.9 | 8.5 - 10.5 | [facility] | | | | | mg/dL | LABORATORY | | + + + + + + | Estimated | 48 (L)Comment: GFR <60: | >60 | [facility] | | | GFR | CHRONIC KIDNEY [...] | | | | | performed at [facility];[address] | | | | | [address] [facility];[place], [place] | | | | | | [address] | | | | + + + + + + + + | Specimen | + + | Blood | + + + + + + + | Performing | Address | City/State/Zipcode | Phone Number | | Organization | | | | + + + + + | [facility] | [address] | [place] [address] | [phone] | + + + + + ECG 12 lead (10/30/2019 2:39 PM PDT) + + + + + + | Component | Value | Ref Range | Performed | Pathologist | | | | | At | Signature | + + + + + + | VENTRICULAR | 60 | BPM | [facility] | | | RATE EKG | | | | | + + + + + + | ATRIAL RATE | 122 | BPM | [facility] | | + + + + + + | QRS | 184 | ms | [facility] | | | DURATION | | | | | + + + + + + | Q-T | 514 | ms | [facility] | | | INTERVAL | | | | | + + + + + + | Q-T | 514 | ms | [facility] | | | INTERVAL | | | | | | (CORRECTED) | | | | | + + + + + + | QRS AXIS | -84 | degrees | [facility] | | + + + + + + | T AXIS | 95 | degrees | [facility] | | + + + + + + | INTERPRETAT | Atrial fibrillation | | [facility] | | | ION TEXT | Ventricular-paced | | | | | | rhythmAbnormal ECGWhen | | | | | | compared with ECG of | | | | | | 12-SEP-2018 09:03,No | | | | | | significant change was | | | | | | foundConfirmed by | | | | | | MULU HYLTON MD | | | | | | [id number]) on 10/31/2019 | | | | | | 12:17:13 PM | | | | + + + + + + + + | Specimen | + + | | + + + + + | Narrative | Performed At | + + + | | | + + + + +---------+ + + | Performing | Address | City/State/Zipcode | Phone Number | | Organization | | | | + +---------+ + + | [facility] | | | | + +---------+ + + LABS - EXTERNAL SCAN (10/04/2019 12:00 AM PDT) + + + | Narrative | Performed At | + + + | Ordered by an | | | unspecified provider. | | + + + from Last 3 Months Insurance + +--------+ +--------+ +---------+--------+ | Payer | Benefi | Subscriber | Effect | Phone | Address | Type | | | t Plan | ID | li | | | | | | / | | Dates | | | | | | Group | | | | | | + +--------+ +--------+ +---------+--------+ | [facility] | [id number] | 06/05/19 | | | Medica | | MEDICARE PPO | HEALTH | | 19-Pre | | | re | | | CARE | | sent | | | | | | MDCR | | | | | | | | PPO | | | | | | + +--------+ +--------+ +---------+--------+ | MEDICARE | [employer]ICA | [id number] | 12/03/18 | [phone] | | Medica | | | RE | | 99-Pre | 5 | | re | | | PART A | | sent | | | | | | AND B | | | | | | + +--------+ +--------+ +---------+--------+ | [facility] | [employer] | [id number] | 06/05/19 | [phone] | | PPO | | | | | 13-Pre | 2 | | | | | HEALTH | | sent | | | | | | CARE | | | | | | | | PPO | | | | | | + +--------+ +--------+ +---------+--------+ + +--------+ +--------+ + + | Guarantor Name | Accoun | Relation to | Date | Phone | Billing Address | | | t Type | Patient | of | | | | | | | | | | + +--------+ +--------+ + + | Serge Gasca | Person | Self [birth year] | [address] | | [place] | al/Fam | | 1935 | [phone] | [place], [place] | | | [place]alis | | | 0 (Home) | [phone] | + +--------+ +--------+ + + | Serge Gasca | Person | Self | [birth year] | [address] | | [place] | al/Fam | | 1935 | [phone] | [place], [place] | | | [place] | | | 0 (Home) | [phone] | + +--------+ +--------+ + + | Serge Gasca | Person | Self | [birth year] | [address] | | [place] | al/Fam | | 1935 | [phone] | [place] | | | [place] | | | 0 (Home) | [phone] | + +--------+ +--------+ + + Advance Directives + + + + + | Type | Date Recorded | Patient | Explanation | | | | 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
--- OUTSIDE RECORDS SUMMARY | ~2019-12-17 | XMS | Encounter Summary ---
Demographics + + + | Address | [address] | | | [place] [address] | + + + | Home Phone | | + + + | Preferred Language | Unknown | + + + | Marital Status | | + + + | Scientology Affiliation | 1013 | + + + [...] | | | | [place] [address] | | + + + + + | Juana Gasca | ECON | [address] | | | | | [place] | | | | | [address] | | + + + + + | Chad Gasca | ECON | Unknown | | + + + + + Care Team Providers + +------+ + | Care Dairy Equipment Mechanic Name | Role | Phone | [...] Dx); COPD (chronic | | | | [place], | | obstructive | | | | [place] [address] | | pulmonary disease); | | | | [phone] | | Obstructive sleep | | | | | | apnea on BiPAP; | | | | | | 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 [facility] mehreen Riddle t [...] t o do a chest x-ray in [place], but he felt like he was doing okay. He is currently on a regimen of Advair twice daily and Spiriva once daily. He does feel li ke this medication regimen is working for them. Currently he is using his rescue inhaler, al buterol, 1 times a week. He is using his nebulizer, albuterol, 2 times a day. [facility]. Currently he is [...] inhaled tw ice daily 3 each 4 Vdprkxkunsd-Juteeenid-Jug C-Mn (GLUCOSAMINE 1500 COMPLEX PO) Take 1,500 [...] mg by mouth nightly. Respiratory Therapy Supplies [facility] Discontinue nebulizer. Fax to [facility]. [...] Health Company: [facility] Machine type: RespirBefore the Call BiPAP auto IPAP Pressure: 16 cm H2O [...] Advair. Plan 1.Check chest CT [facility] at [facility]. 2.Decrease Advair to 100 mcg dose, [...] made to ensure accuracy; however, inadvertent computerized remote control mirror installer errors may be pre sent. documented in [...] | | | | | [place], [place] | | | | | | [address] | | | | | | | [...]
--- OUTSIDE RECORDS SUMMARY | ~2019-12-17 | XMS | Encounter Summary ---
Demographics + + + | Address | [address] | | | [place] [address] | + + + | Home Phone | | + + + | Preferred Language | Unknown | + + + | Marital Status | | + + + | Restoration Affiliation | 1013 | + + + | Race | Unknown | + + + | Ethnic Group | Unknown | + + + Author + + + | Author | [facility] | | | and [place] | + + + | Organization | [facility] | | | [...] | | | | [place] [address] | | + + + + + | Juana Gasca | ECON | [address] | | | | | [place] | | | | | [address] | | + + + + + | Chad Gasca | ECON | Unknown | | + + + + + Care Team Providers + +------+ + | Care Intern Architect Name | Role | Phone | + [...] Description | +--------+---------+ + + + | 09/21/ | [facility] | [facility] | [place], | COPD (Primary Dx); | | 2012 | Visit | PULMONARY [address] | Florence You MD | Obstructive sleep | | | | [place], | | apnea on BiPAP | | | | [place] [address] | | | | | | [phone] | | | +--------+---------+ + + + [...] + + + | Blood Pressure | 112/62 | 09/21/2012 12:47 PM | | | | | PDT | | + + + + + | Pulse | 62 | 09/21/2012 12:47 PM | regular | | | | PDT | | + + + + + | Temperature | - | - | | + + + + + | Respiratory Rate | - | - | | + + + + + | Oxygen Saturation | 96% | 09/21/2012 12:47 PM | | | | | PDT | | + + + + + | Inhaled Oxygen | - | - | | | Concentration | | | | + + + + + | Weight | 133.4 kg (294 lb 3.2 | 09/21/2012 12:47 PM | | | | oz) | PDT | | + + + + + | Height | 184.2 cm (6' 0.5") | 09/21/2012 12:47 PM | | | | | PDT | | + + + + + | Body Mass Index | 39.35 | 09/21/2012 12:47 PM | | | | | PDT | | + + + + + documented in this encounter Patient Instructions Patient Instructions Florence La MD - 09/21/2012 1:41 PM PDTNo changes today. I would look in to doing some more physical exercise. I would discuss with Dr. Su what w ould be best. Bring a download from your BiPAP to that visit. documented in this encounter Progress Notes Florence La MD - 09/21/2012 1:09 PM PDTFormatting of this note might be differe nt from the original. Pulmonary Follow Up Note HPI Serge Gasca is a 77 y.o. male patient of Timo Lorenzana here today for follo w up of COPD. At their last visit, we had resumed his Spiriva as he had increased cough. He notes that he got a smart phone and he is enjoying using it for his medical problems to track things. He uses it to remind him to take his medications, take pictures of his x-rays and track his med ication list. He is staying up late playing on the computer. Since their last visit he fee ls like he has been doing pretty well, his cough has improved a lot with the change. He is currently on a regimen of Advair and Spiriva. He does feel like this medication regimen is working for them. They return today for routine follow up. Currently they are using their re scue inhaler, albuterol, 1-2 times a week. Currently they are able to walk 1/4 to 1/2 at their own pace on level ground. He is not exe rcising regularly. He has been having a lot of knee issues and recently got the left knee in jected. He can do better with a lot of stop and go walking. He does cough cough a little bit in the morning to clear out the morning phlegm, but his co ugh is dramatically decreased compared to his last visit. His has also noted a dramatic change. He has not had hemoptysis. He is using his BiPAP every night. He finds that he only needs to sleep only about 5 hours a night, but this has been a lifelong pattern for him. Past Medical History Past Medical History Diagnosis Date Coronary artery disease Aortic valve stenosis Mitral valve stenosis COPD (chronic obstructive pulmonary disease) Congestive heart failure Diabetes mellitus, type 2 Hypertension Hypothyroidism Osteoarthritis Otogenic vertigo Anemia Hoarseness MARY (obstructive sleep apnea) on auto BiPAP Dysphagia Past Surgical History Past Surgical History Procedure Date Mitral valve replacement/repair 1995 Turp 2006 Back surgery lower back x2 Hernia repair x3 Rotator cuff repair Coronary artery stenting x2 Cardiac ablation x2 Pacemaker placement Hemorrhoid surgery Retinal detachment repair Deviated septum repair Ligation of artery in nostril Total hip arthroplasty 2011 Right Cortisone injection Left knee Social History: History Social History Marital Status: [...] Succinate Medications: Outpatient Encounter Prescriptions as of 09/21/2012 Medication Sig Dispense Refill warfarin (COUMADIN) 7.5 mg tablet Take 7.5 mg by mouth Daily. Take 7.5mg on Monday, Mon, and Monday. Take 10mg all other days Doscqnhdnaq-Bevlahpep-Rjs C-Mn (GLUCOSAMINE 1500 COMPLEX PO) Take 1,500 mg by mouth. Ta ke 2 tablets every AM and 1 tablet every PM Methylsulfonylmethane (MSM) 1500 MG TABS Take 1,500 mg by mouth 3 times daily. CINNAMON PO Take 1,000 mg by mouth 2 times daily. tiotropium (SPIRIVA HANDIHALER) 18 mcg inhalation capsule Inhale 1 capsule into the марина gs Daily. 30 capsule carvedilol (COREG) 3.125 mg tablet 1/2 tablet [...] Take 40 mg by mouth every morning. Review of Systems Constitutional: Denies fever, chills, sweats, and change in weight. Sleep: Using BiPAP without issue for MARY. Eyes: Just had recent eye exam for diabetic retinopathy. ENT: Denies earache, nasal congestion, nosebleeds, sore throat. Mild hoarseness. Mildly de creased hearing. Resp: See HPI. CV: Denies chest pain, palpitations, syncope, and peripheral edema. Notes he may not alway s be in sinus rhythm but has had a total ablation. GI: Denies heartburn, nausea, vomiting, and abdominal pain. : Denies difficulty emptying bladder. Does get up about two to three times a night. MS: Left knee pain improved after injection. Endo: Notes last HgB A1C was 6.0. He does have some morning high blood sugars in the 140 r javon. Objective BP 112/62 | Pulse 62 | Ht 1.842 m (6' 0.5") | Wt 133.448 kg (294 lb 3.2 oz) | BMI 39.35 kg/ m2 | SpO2 96% General Appearance: Alert, cooperative, no distress, appears stated age Head: Normocephalic, without obvious abnormality, atraumatic Eyes: PERRL, conjunctiva clear, no scleral icterus, EOM's intact Ears: Normal TM's, external auditory canals, very slightly diminished acuity Nose: Nares normal, septum midline, mucosa normal Mouth: No oral lesions or exudate Neck: Supple, symmetrical, no adenopathy Lungs: No accessory muscle use, breath sounds are diminished bilaterally, no wheezes, crap game box person ckles or rhonchi Chest Wall: No deformity Heart: Regular rate and rhythm, systolic and diastolic murmur, no rubs Abdomen: Soft, non-tender, non-distended, obese Extremities: No cyanosis, clubbing, 1+ edema Pulses: Radial pulses 1+ and symmetric Skin: Warm and dry Lymph nodes: Cervical and supraclavicular nodes normal Data: Chest x-ray was done on July 19, 2012 and was reviewed and interpreted in clinic today. It shows post op valve replacement changes, hyperinflation, and some left basilar atelectas is. Immunization History Administered Date(s) Administered INFLUENZA, PRESERVATIVE FREE IM 04/18/2012 Pneumococcal (Adult) 07/19/2009 Assessment /Plan Mr. Gasca was seen today for follow-up of COPD. Diagnoses and associated orders for this visit: Copd His symptoms are much improved since resuming the Spiriva. We will continue for now. Exerci was encouraged. He is well aware of the need to stay active and work on weight loss. Obstructive sleep apnea on bipap He is doing well on his BiPAP and has no complaints and never sleeps without it. I asked leila m to bring a download to his next visit. His last download looked great. He was advised to call if new pulmonary symptoms were to develop. Return to clinic in 6 months, or sooner with concerns. CC: Timo Lorenzana Portions of this report were transcribed using voice recognition software. Every effort wa s made to ensure accuracy; however, inadvertent computerized traffic investigator errors may be pre sent. documented in [...] | | | | | [place] | | | | | | [address] | | | | | | | [...] | Diagnosis | + + | COPD - Primary Chronic airway obstruction, not elsewhere classified | + + | Obstructive sleep apnea on BiPAP Obstructive sleep apnea (adult) (pediatric) | + + documented in this encounter
--- OUTSIDE RECORDS SUMMARY | ~2019-12-17 | XMS | Encounter Summary ---
Demographics + + + | Address | [address] | | | [place] [address] | + + + | Home Phone | | + + + | Preferred Language | Unknown | + + + | Marital Status | | + + + | Gnosticist Affiliation | 1013 | + + + | Race | Unknown | + + + | Ethnic Group | Unknown | + + + Author + + + | Author | [facility] | | | and [place] | + + + | Organization | [facility] | | [...] | | | | [place] [address] | | + + + + + | Juana Gasca | ECON | [address] | | | | | [place] | | | | | [address] | | + + + + + | Chad Gasca | ECON | Unknown | | + + + + + Care Team Providers + +------+ + | Care Workplace Relations Adviser Name | Role | Phone | + +------+ + | Timo Lorenzana | PCP | | | MD | | | + +------+ + Reason for Visit +--------+--------+ + | Reason | Onset | Comments | | | Date | | +--------+--------+ + | Other | 05/16/ | FYI: [facility] visit 05/12/2013 | | | 2012 | | +--------+--------+ + Encounter Details +--------+ + + + + | Date | Type | Department | Care Team | Description | +--------+ + + + + | 05/16/ | Telephone | [facility] [place] | Aleida Smart, | Other (FYI: | | 2012 | | PULMONARY [address] | RN [address] | [facility] | | | | [place], | [place] | 05/12/2013) | | | | [place] [address] | [address] | | | | | [phone] | | | +--------+ + + + [...] this encounter Miscellaneous Notes Telephone Encounter - Florence La MD - 05/16/2013 12:18 PM PSTPlease get records as well. Once we have them, we should probably schedule a follow up for him to be seen. Krysta ctronically signed by Florence La MD at 05/16/2013 12:18 PM PSTTelephone Encounter - Aleida Smart RN - 05/16/2013 10:36 AM PSTLarry called stating he had to go to the [facility] at [facility] for difficulty breathing on 05/12/2013. He received a neb treatmen t, a chest x-ray, an Rx for Prednisone 4 tabs/day for 6 days (tomorrow with be his last day) . He was diagnosed with Active COPD and CHF. He says the Prednisone is helping and he is zuleyka athing easier. Will request films be loaded to Transmit. documented in this encounter Plan of Treatment [...] [place] | | | | | | [address] | | | | | | | [...]
--- OUTSIDE RECORDS SUMMARY | ~2019-12-17 | XMS | Encounter Summary ---
Demographics + + + | Address | [address] | | | [place] [address] | + + + | Home Phone | | + + + | Preferred Language | Unknown | + + + | Marital Status | | + + + | Taoist Affiliation | 1013 | + + + | Race | Unknown | + + + | Ethnic Group | Unknown | + + + Author + + + | Author | [facility] | | | and [place] | + + + | Organization | [facility] | | | [...] | | | | [place] [address] | | + + + + + | Juana Gasca | ECON | [address] | | | | | [place] | | | | | [address] | | + + + + + | Chad Gasca | ECON | Unknown | | + + + + + Care Team Providers + +------+ + | Care Mold Cleaner Name | Role | Phone | [...] Description | +--------+---------+ + + + | 10/29/ | Office | [facility] | Mulu Weinstein, | Atrial fibrillation, | | 2020 | Visit | CARDIOLOGY BHUPINDER | [address] | chronic (HCC) | | | | [address] | [place] | (Primary Dx); | | | | [address] | [address] | Essential | | | | [place] | | hypertension, | | | | [address] | | benign; | | | | [phone] | | Atherosclerosis of | | | | | | [place] coronary | | | | | | artery of [place] | | | | | | heart [...] + + + | Blood Pressure | 122/68 | 10/30/2019 2:30 PM | | | | | PDT | | + + + + + | Pulse | 60 | 10/30/2019 2:30 PM | | | | | PDT | | + + + + + | Temperature | - | - | | + + + + + | Respiratory Rate | - | - | | + + + + + | Oxygen Saturation | 96% | 10/30/2019 2:30 PM | | | | | PDT | | + + + + + | Inhaled Oxygen | - | - | | | Concentration | | | | + + + + + | Weight | 113.4 kg (250 lb) | 10/30/2019 2:30 PM | | | | | PDT | | + + + + + | Height | 185.4 cm (6' 1") | 10/30/2019 2:30 PM | | | | | PDT | | + + + + + | Body Mass Index | 32.98 | 10/30/2019 2:30 PM | | | | | PDT | | + + + + + documented in this encounter Progress Notes Mulu Weinstein MD - 10/30/2019 2:30 PM PDTFormatting of this note might be different f rom the original. Date of visit: 10/30/2019 Primary Care Physician: Timo Lorenzana MD CHIEF COMPLAINT: Chief Complaint Patient presents with Follow-up HISTORY OF PRESENT ILLNESS: Serge is 84 y.o. here for follow up [...] tablet Take 1,000 mcg by mouth daily. Yujdoarvoja-Usvxcggcp-Sdx C-Mn (GLUCOSAMINE 1500 COMPLEX PO) Take 3,000 [...] by mouth Daily. Take 7.5mg on Monday. Arthur e 10mg all other days WIXELA INHUB [...] 31 mm valve (RHD/MS), AVR 2013, On-X (RHD/). Hx Pacemaker/ICD: 08/30/2007, Guidant Insignia 1291, SN: [id number]. Last interrogation 10/30/2019 MARY, 96% ASSESSMENT: Patient [...] in 6 months or earlier if needed. More than 50% of the time was spent coordinating care and counseling the patient. *This report has been prepared using a voice recognition system. The report was reviewed fo r accuracy, however, sound-alike word errors, addition and/or deletions may occur. If there is any question about this report please contact me. Mulu Weinstein MD, MPH P M PDTdocumented in this encounter Miscellaneous Notes Addendum Note - Mulu Weinstein MD - 10/30/2019 2:30 PM PDT Addended by: CAESAR WEINSTEIN on: 10/30/2019 05:07 PM Modules accepted: Level of Service documented in thi s encounter Plan of Treatment +--------+ + + + + | Date | Type | Specialty | Care Team | Description | +--------+ + + + + | 03/09/ | Procedure | Cardiology | | | | 2019 | visit | | | | +--------+ + + + + | 05/06/ | Office | Cardiology | Mulu Weinstein, | | | 2019 | Visit | | MD Asad FIELDS | | | | | | [place] | | | | | | [address] | | | | | | | | +--------+ + + + + | 06/08/ | Procedure | Cardiology | | | | 2020 | visit | | | | +--------+ + + + + | 09/07/ | Procedure | Cardiology | | | | 2020 | visit | | | | +--------+ + + + + + +------+--------+ + + | Name | Type | Priori | Associated Diagnoses | Order Schedule | | | | ty | | | + +------+--------+ + + | Protime INR | Lab | Routin | Atrial | 1 Occurrences | | | | e | fibrillation, | starting 10/30/2019 | | | | | chronic (HCC) | until 10/29/2020 | | | | | Essential | | | | | | hypertension, benign | | | | | | Atherosclerosis of | | | | | | [place] coronary | | | | | | artery of [place] | | | | | | heart without angina | | | | | | pectoris | | + +------+--------+ + + documented as of this encounter [...] + + documented in this encounter Results ECG 12 lead (10/30/2019 2:39 PM PDT) [...] | | | | | | MULU WEINSTEIN MD | | | | | | ([id number]) on 10/31/2019 | | | | | [...] | Diagnosis | + + | Atrial fibrillation, chronic (HCC) - Primary Atrial fibrillation | + + | Essential hypertension, benign | + + | Atherosclerosis of [place] coronary artery of [place] heart without angina pectoris | + + | S/P AVR (aortic valve replacement) Heart valve replaced by other means | + + | S/P MVR (mitral valve replacement) Heart valve replaced by other means | + + documented in this encounter
--- OUTSIDE RECORDS SUMMARY | ~2019-12-17 | XMS | Encounter Summary ---
Demographics + + + | Address | [address] | | | [place] [address] | + + + | Home Phone | | + + + | Preferred Language | Unknown | + + + | Marital Status | | + + + | Oriental Orthodox Affiliation | 1013 | + + + [...] | | | | [place] [address] | | + + + + + | Juana Gasca | ECON | [address] | | | | | [place] | | | | | [address] | | + + + + + | Chda Gasca | ECON | Unknown | | + + + + + Care Team Providers + +------+ + | Care Assistant Toddler Teacher Name | Role | Phone | + [...] Description | +--------+---------+ + + + | 09/27/ | Office | [facility] | [place], | COPD (chronic | | 2013 | Visit | PULMONARY [address] | Florence You MD | obstructive | | | | [place], | | pulmonary disease) | | | | [place] [address] | | (Primary Dx); | | | | [phone] | | Obstructive sleep | | | | | | apnea on BiPAP; | | | | | | Nocturnal hypoxemia | | | | | | due to emphysema | | | | | | ([facility]) | +--------+---------+ + + + Social History [...] + + + | Blood Pressure | 126/68 | 09/27/2013 10:55 AM | | | | | PDT | | + + + + + | Pulse | 61 | 09/27/2013 10:55 AM | | | | | PDT | | + + + + + | Temperature | - | - | | + + + + + | Respiratory Rate | - | - | | + + + + + | Oxygen Saturation | 93% | 09/27/2013 10:55 AM | | | | | PDT | | + + + + + | Inhaled Oxygen | - | - | | | Concentration | | | | + + + + + | Weight | 118.8 kg (261 lb | 09/27/2013 10:55 AM | | | | 14.4 oz) | PDT | | + + + + + | Height | 184.2 cm (6' 0.5") | 09/27/2013 10:55 AM | | | | | PDT | | + + + + + | Body Mass Index | 35.03 | 09/27/2013 10:55 AM | | | | | PDT | | + + + + + documented in this encounter Patient Instructions Patient Instructions Florence La MD - 09/27/2013 11:41 AM PDTNo medication sheikh es today. The other medication I was discussing is called Daliresp. We would have to check your liver function before starting it. The main side effect is weight loss. Otherwise, it seems to be pretty well tolerated. I think overall you are doing well, keep up the good work. Bring a BiPAP download to next visit. Consider borrowing a portable concentrator or oxygen tank to take oxygen with you on your t rip. documented in this encounter Progress Notes Florence La MD - 09/27/2013 11:15 AM PDTFormatting of this note might be differe nt from the original. Pulmonary Follow Up HPI Serge Gasca is a 78 y.o. male patient of Timo Lorenzana here today for follow up of COPD. At their last visit, we had continued his Advair and Spiriva. Since he was last seen, he wa s in the ER in [place] with a CHF/COPD exacerbation. We offered follow up at that time, an d he declined noting he was doing well. He has subsequently lost 30 pounds of weight and reports he has been doing well. He is currently on a regimen of Advair and Spiriva. He does feel like this medication sam lilian is working for them. Currently he is using his rescue inhaler, ProAir, 1-2 times a day. He did get a nebulizer when he was seen in May, and he was on it 4 times a day. He now does it once before he goes to bed. He returns today for routine follow up. Currently he is able to walk 1 city block at his own pace on level ground. He is not exerci sing regularly. He notes the most exercise he gets is walking out to get the mail, down the sloped driveway, and back in. He notes that with losing weight, his feet and legs do not bot her him as quickly. He does not cough chronically, and does not produce mucous. He has not had hemoptysis. He has been using his BiPAP every night, with a 1 L bleed in. His download looks great. He has had 5-6 exacerbations in the last 2 years, which have necessitated ER visits, which have been a combination of CHF/COPD. Past Medical History Past Medical History Diagnosis Date Coronary artery disease Aortic valve stenosis severe, follows with Dr. Fortune Mitral valve stenosis s/p replacement COPD (chronic [...] multiple, usually a couple times a year Social History: History Social History Marital Status: [...] Succinate Medications: Outpatient Encounter Prescriptions as of 09/27/2013 Medication Sig Dispense Refill albuterol (PROAIR HFA) [...] inhaler 1 puff inhaled tw ice daily furosemide (LASIX) 40 mg tablet Take 40 mg by mouth every morning. Glgrxpnecpw-Uymtqynwo-Tzv C-Mn (GLUCOSAMINE 1500 COMPLEX PO) Take 1,500 [...] into the марина gs Daily. 30 capsule warfarin (COUMADIN) 7.5 mg tablet Take 7.5 mg by mouth Daily. Take 7.5mg on Monday and Monday. Take 10mg all other days Review of Systems Constitutional: Denies fever, chills, and sweats. He has lost 30 pounds. Sleep: Using BiPAP at night, good compliance. He did not notice any improvement with oxyge n bleed in, and we discussed the reason for this. Eyes: Denies vision change and eye irritation. ENT: Denies earache, nasal congestion, nosebleeds, sore throat, and hoarseness. Resp: See HPI. CV: Denies chest pain, palpitations, syncope, and peripheral edema. GI: Denies heartburn, nausea, vomiting, and abdominal pain.. : Has urethral stricture and gets dilated once a year when he has difficulty urinating. Objective BP 126/68 | Pulse 61 | Ht 1.842 m (6' 0.5") | Wt 118.797 kg (261 lb 14.4 oz) | BMI 35.01 kg /m2 | SpO2 93% RA General Appearance: Alert, cooperative, no distress, appears stated age, noticeably slimme r Head: Normocephalic, without obvious abnormality, atraumatic Eyes: PERRL, conjunctiva clear, no scleral icterus, EOM's intact Ears: Normal TM's, external auditory canals, slightly diminished acuity Nose: Nares normal, septum midline, mucosa normal Mouth: No oral lesions or exudate Neck: Supple, symmetrical, no adenopathy Lungs: No accessory muscle use, breath sounds are diminihsed bilaterally with prolongatio n of the expiratory phase, no wheezes, crackles or rhonchi Chest Wall: No deformity Heart: Regular rate and rhythm, 2/6 harsh systolic murmur, no rub or gallop Abdomen: Soft, non-tender, non-distended, obese, but less so Extremities: No cyanosis, clubbing, wearing compression hose, trace to 1+ bilateral lower extremity edema Pulses: Radial pulses 2+ and symmetric Skin: Warm and dry Lymph nodes: Cervical and supraclavicular nodes normal Data: VPAP Data: Dates: 07/28/13-09/25/13 Home Health Company: [facility] Maximum IPAP Pressure: 16 cm H2O Maximum PS: 3 cm H2O Minimum EPAP: 11 cm H2O AHI: 0.7 Total number of days: 60 Number of days used: 60 Median daily usage: 5:50 hours Percent of days used for more than 4 hours: 98.3 % Average time in large leak per day: 2 minutes 7 seconds ER notes were reviewed in clinic today. Immunization History Administered Date(s) Administered INFLUENZA, PRESERVATIVE FREE IM 04/18/2012, 02/03/2013 Pneumococcal (Adult) 07/19/2009 Assessment 1. COPD (chronic obstructive pulmonary disease) - Overall fairly stable, but he has had mul tiple exacerbations over the past two years. It is hard to tell how much of this is heart fa ilure vs. COPD. We discussed addition of Daliresp, and he is uncertain he wants to pursue an other medication at this time. I wrote the name down so he can do some additional research. 2. Obstructive sleep apnea on BiPAP - Doing well. I have no concerns. 3. 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 Plan 1.Continue on Advair and Spiriva. 2.He will look at the Daliresp. 3.Continue nocturnal BiPAP. 4. Continue nocturnal oxygen bleed in of 1L. He was advised to call if new pulmonary symptoms were to develop. Return to clinic in 6 months, or sooner with concerns. CC: Timo Lorenzana Portions of this report were transcribed using voice recognition software. Every effort wa s made to ensure accuracy; however, inadvertent computerized folding machine operator errors may be pre sent. Electronically signed by: Florence La MD 09/27/2013 11:15 documented in t his encounter Plan of [...] | | | | | [place] | | | | | | [id number] | | | | | | | [...] emphysema | + + documented in this encounter
--- OUTSIDE RECORDS SUMMARY | ~2019-12-17 | XMS | Clinical Summary ---
Demographics + + + | Address | [address] | | | [place] [address] | + + + | Home Phone | | + + + | Preferred Language | Unknown | + + + | Marital Status | | + + + | Presybeterian Affiliation | 1013 | + + + [...] | | | | [place] [address] | | + + + + + | Juana Gasca | ECON | [address] | | | | | [place] | | | | | [address] | | + + + + + | Chad Gasca | ECON | Unknown | | + + + + + Care Team Providers + +------+ + | Care Director Executive Communications Name | Role | Phone | + [...] automatically from request for surgery | | [id number] | + + + + + | [...] + + + | Overview: 03/10/2014 at [facility] | + + + + [...] | implanted 08/30/2007, Maris Shaffer 1291, SN: [id number] | | interrogation 04/16/2015: battery "good", 3+years, [...] | + + + | Atherosclerosis of [place] coronary artery of [place] heart without | | | angina pectoris [...] 08/30/2007, Guidant | | Insignia 1291, SN: [id number] Cath, 03/09/2014: RA: 80/13 mean | | [...] Post-op Question | 2019 | | | SCHOOL BUSINESS MANAGER | | +--------+ + + + + [...] | | 2019 | Event | | DATA CONTROL CLERK | | +--------+ + + + + [...] | 11/10/ | Telephone | Cardiology | Spenser Potter, | Cardiac Problem | | 2019 [...] of | | | | | | [place] coronary | | | | | | artery of [place] | | | | | | heart [...] [place] | | | | | | [address] | | | | | | | [...] - | Pacema | | [place] | [id number] | 06/19/ | L310 | | [id number]: Qty: 1 on | ker | | SCIENTIFIC | [id number] | 2021 | [id number] | | 11/13/2019 by Spenser Potter | | | ERICH - BSCI | 04 | | 8 / | | MD [facility] at [facility] | | | | | | | | [facility] | | | | | | | + +--------+-------+ +--------+--------+--------+ | Pacing Wire Dual | | N/A: | JORGITO | | 10/02/ | 030-00 | | 030-005 - | | Heart | MEDICAL | | 2018 | 5 / | | [id number]: Qty: 1 on | | | SPECIALTI - | | | /166 | | 03/10/2014 | | | WILS | | | | + +--------+-------+ +--------+--------+--------+ | Pacing Wire Dual | | N/A: | JORGITO | | 10/02/ | 030-00 | | 030-005 - | | Heart | MEDICAL | | 2019 | 5 / | | [id number]: Qty: 1 on | | | SPECIALTI - | | | /166 | | 03/10/2014 | | | WILS | | | | + +--------+-------+ +--------+--------+--------+ | Valve Aortic Mec 23mm | | N/A: | NA UNKNOWN | | 10/02/ | ONXACE | | Onxace-23 S/N - | | Heart | | | 2019 | -23 | | [id number]: Qty: 1 on | | | | | | /[id number] | | 03/10/2014 | | | | | | 02 / | + +--------+-------+ +--------+--------+--------+ | Pacing Wire Dual | | N/A: | JORGITO | | 09/02/ | 030-00 | | 030-005 - | | Heart | MEDICAL | | 2019 | 5 / | | [id number]: Qty: 1 on | | | SPECIALTI [...] Primary cardiology | | | provider: [facility] [place] electrophysiology provider: Spenser | | | Tariq Mode of interrogation: Seen in cardiac device | | | clinic Device: [employer] Battery Longevity: 10.5 | | | [...] performed by: Yesika Cadet, | | | OneWheel Reviewed by: GINGER Hinojosa | | + [...] | | | | | performed at [facility] | | | | | | [facility];[place], [place] | | | | | | [address] | | | | + + + + + + + + | Specimen | + + | Blood | + + + + + + + | Performing | Address | City/State/Zipcode | Phone Number | | Organization | | | | + + + + + | [facility] | [address] | [place] [address] | [phone] | + + + + + Basic [...] | | | | | performed at [facility];[address] | | | | | | [facility];[place], [place] | | | | | | [address] | | | | + + + + + + + + | Specimen | + + | Blood | + + + + + + + | Performing | Address | City/State/Zipcode | Phone Number | | Organization | | | | + + + + + | [facility] | [address] | [place] [address] | [phone] | + + + + + ECG [...] MD | | | | | | 5068) on 10/31/2019 | | | | | [...] | | + +--------+ +--------+ +---------+--------+ | [facility] | [facility] | [id number] | 06/05/19 | | | Medica | | MEDICARE PPO | HEALTH | | 19-Pre | | | re | | | CARE | | sent | | | | | | MDCR | | | | | | | | PPO | | | | | | + +--------+ +--------+ +---------+--------+ | MEDICARE | MEDICA | [id number] | 12/03/18 | [phone] | | Medica | | | RE | | 99-Pre | 5 | | re | | | PART A | | sent | | | | | | AND B | | | | | | + +--------+ +--------+ +---------+--------+ | [facility] | UNITED | [id number] | 06/05/19 | [phone] | | PPO [...] odalis | | | 0 (Home) | [address] | + +--------+ +--------+ + + | Serge Gasca | Person | Self | [birth year] | [address] | | [place] | al/Fam | | 1935 | [phone] | [place], [place] | | | odalis | | | 0 (Home) | [address] | + +--------+ +--------+ + + | Serge Gasca | Person | Self | [birth year] | [address] | | [place] | al/Fam | | 1935 | [phone] | [place] | | | [place] | | | 0 (Home) | [address] | + +--------+ +--------+ + + Advance Directives + + + + + | Type | Date Recorded | Patient | Explanation | | | | Student Services Vice President | | + + + + + | Power of | | | | | Staff Mine Warfare Officer | | | | + + + + + | Advance | 11/13/2019 10:06 | | | | Directive | AM | | | + + + + +
--- OUTSIDE RECORDS SUMMARY | ~2019-12-17 | XMS | Encounter Summary ---
Demographics + + + | Address | [address] | | | [place] [address] | + + + | Home Phone | | + + + | Preferred Language | Unknown | + + + | Marital Status | | + + + | Sabianist Affiliation | 1013 | + + + | Race | Unknown | + + + | Ethnic Group | Unknown | + + + Author + + + | Author | [facility] | | | and [place] | + + + | Organization | [facility] | | | and [place] | + + + | Address | Unknown | + + + | Phone | Unavailable | + + + Support + + + + + | Name | Relationship | Address | Phone | + + + + + | Frances Gasca | ECON | NA | | | | | [place] [address] | | + + + + + | Juana Gasca | ECON | [address] | | | | | [place] | | | | | [address] | | + + + + + | Chad Gasca | ECON | Unknown | | + + + + + Care Team Providers + +------+ + | Care Fingerer Name | Role | Phone | + [...] [address] | | | | | [place] [address] | | [address] | | | | | IM[address] DFB | | [place], [place] | | | | | PLSE GEN | | [address] Phone: | | | | | W/REPL PLSE | | [phone] | | | | | GEN 1 LEAD | | Fax: | | | | | [place] | | [phone] | | | | | INSJ/RPLCMT | | | | | | | PERM DFB | | | | | | | W/TRNSVNS | | | | | | | LDS 1/DUAL | | | | | | | CHMBR DE | | | | | | | [...] + + | 11/12/ | Anesthesia | [facility] | Belle Murray, | | | 2020 | Event | [facility] | IRRIGATION SUPERVISOR [address] | | | | | LAB [address] | [place] [address] | | | | | [place], [place] | [phone] | | | | | [address] | | | | | | [phone] | | | +--------+ + + + + Anesthesia Record + + + + + | Procedure Name | Responsible | Anesthesia Start | Anesthesia Stop Time | | | Anesthesiologist | Time | | + + + + + | CV EP PM GEN CHANGE | Belle Murray, | 11/13/19 1248 | 11/13/19 1355 | | (Left ) | IRRIGATION SUPERVISOR | | | + + + + [...] 1420 by | | eral | Wrist; tdjo-mjt-fpjzwi catheter | Bria aCsanova RN | Krys Weeks, | | IV [...] EVALUATION Serge Gasca 84 y.o. male 1935 [id number] Procedure(s) CV EP PM GEN CHANGE (Left [...] by Belle Murray CRNA 11/13/2019 1:56 PM [facility] Belle Murray CRNA at 020 1:57 PM PDTAnesthesia Preprocedure Evaluation - Belle Murray CRNA - 11/13/2019 11: 31 AM PDT ANESTHESIA PREANESTHESIA EVALUATION Serge Gasca 84 y.o. male 1935 [id number] Procedure(s): CV EP PM GEN CHANGE (Left [...] Serge Rmbigg Gasca 84 y.o. male 1935 [id number] CV EP PM GEN CHANGE (Left ) [...] report from receiving team Patient Location: Other (clinical lab assistant procedure room) Condition: alert, responds to stimuli and awake Airway/O2: no supplemental O2 Multimodal analgesia: multimodal analgesia used between 6 hours prior to anesthesia start t o PACU discharge Two or more MARY mitigation strategies used: perioperative obstructive sleep apnea intervent ions applied The significant anesthesia concerns and VS in Epic were reviewed with the receiving team. Blele Murray CRNA 11/13/2019 1:55 PM [facility] by Belle Murray CRNA at 020 1:55 PM PDTdocumented [...] | | | | | [facility] [facility] [place] | | | | | | [address] | | | | | | | [...]
--- OUTSIDE RECORDS SUMMARY | ~2019-12-17 | XMS | Encounter Summary ---
Demographics + + + | Address | [address] | | | [place] [address] | + + + | Home Phone | | + + + | Preferred Language | Unknown | + + + | Marital Status | | + + + | Jainism Affiliation | 1013 | + + + [...] | | | | [place] [address] | | + + + + + | Juana Gasca | ECON | [address] | | | | | [place] | | | | | [address] | | + + + + + | Chad Gasca | ECON | Unknown | | + + + + + Care Team Providers + +------+ + | Care De Ionizer Operator Name | Role | Phone | [...] + + | 06/19/ | Refill | [facility] | Elif Hylton, | Medication Refill | | 2019 | | CARDIOLOGY [place] | [address] | (Lisinopril) | | | | [address] | [place] | | | | | [address] | [address] | | | | | [place] | | | | | | [address] | | | | | | [phone] | | | +--------+--------+ + + + [...] [place] | | | | | | [address] | | | | | | | [...]
--- OUTSIDE RECORDS SUMMARY | ~2019-12-17 | XMS | Encounter Summary ---
Demographics + + + | Address | [address] | | | [place] [address] | + + + | Home Phone | | + + + | Preferred Language | Unknown | + + + | Marital Status | | + + + | Christianity Affiliation | 1013 | + + + | Race | Unknown | + + + | Ethnic Group | Unknown | + + + Author + + + | Author | [facility] | | | and [place] | + + + | Organization | [facility] | | | [...] | | | | [place] [address] | | + + + + + | Juana Gasca | ECON | [address] | | | | | [place] | | | | | [address] | | + + + + + | Chad Gasca | ECON | Unknown | | + + + + + Care Team Providers + +------+ + | Care Rn Gyn Name | Role | Phone | + +------+ + | Timo Lorenzana | PCP | | | MD | | | + +------+ + Encounter Details +--------+ + + + + | Date | Type | Department | Care Team | Description | +--------+ + + + + | 12/27/ | Orders Only | [facility] | Provider, | | | 2018 | | SYSTEM GENERIC OP | MD [address] | | | | | [address] | Chelsie [place] | | | | | [address] [place], [place] | [place] [address] | | | | | [address] | | | | | | [phone] | | | +--------+ + + + [...] [place] | | | | | | [address] | | | | | | | [...]
--- OUTSIDE RECORDS SUMMARY | ~2019-12-17 | XMS | Encounter Summary ---
Demographics + + + | Address | [address] | | | [place] [address] | + + + | Home Phone | | + + + | Preferred Language | Unknown | + + + | Marital Status | | + + + | Buddhist Affiliation | 1013 | + + + [...] | | | | [place] [address] | | + + + + + | Juana Gasca | ECON | [address] | | | | | [place] | | | | | [address] | | + + + + + | Chad Gasca | ECON | Unknown | | + + + + + Care Team Providers + +------+ + | Care Inside Sales Account Executive Name | Role | Phone | + +------+ + | Timo Lorenzana | PCP | | | MD | | | + +------+ + Encounter Details +--------+ + + + + | Date | Type | Department | Care Team | Description | +--------+ + + + + | 02/06/ | Hospital | [facility] | Conversion | Diagnosis unknown | | 2015 | Encounter | CONVERSION [address] | Transaction, | | | | | [address] | Provider Unknown | | | | | [place], [place] | | | | | | [address] | (Fax) | | | | | [phone] | | | +--------+ + + + [...] | | | | | [place], [place] | | | | | | [address] | | | | | | | [...]
--- OUTSIDE RECORDS SUMMARY | ~2019-12-17 | XMS | Encounter Summary ---
Demographics + + + | Address | [address] | | | [place] [address] | + + + | Home Phone | | + + + | Preferred Language | Unknown | + + + | Marital Status | | + + + | Islam Affiliation | 1013 | + + + | Race | Unknown | + + + | Ethnic Group | Unknown | + + + Author + + + | Author | [facility] | | | and [place] | + + + | Organization | [facility] | | | [...] | | | | [place] [address] | | + + + + + | Juana Gasca | ECON | [address] | | | | | [place] | | | | | [address] | | + + + + + | Chad Gasca | ECON | Unknown | | + + + + + Care Team Providers + +------+ + | Care [employer] Name | Role | Phone | + [...] | FOLLOW UP) | | | | [place], | | | | | | [place] [address] | | | | | | [phone] | | | +--------+ + + + [...] not wish to sc hedule with the [facility] heat transfer technician as 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 Electronically [...] [place] | | | | | | [address] | | | | | | | [...]
--- OUTSIDE RECORDS SUMMARY | ~2019-12-17 | XMS | Encounter Summary ---
Demographics + + + | Address | [address] | | | [place] [address] | + + + | Home Phone [...] | NA | | | | | [place] [address] | | + + + + + | Juana Gasca | ECON | [address] | | | | | [place] | | | | | [address] | | + + + + + | Chad Gasca | ECON | Unknown | | + + + + + Care Team Providers + +------+ + | Care Grey Goods Marker Name | Role | Phone | + +------+ + | Timo Lorenzana | PCP | | | MD | | | + +------+ + Reason for Visit + +--------+ + | Reason | Onset | Comments | | | Date | | + +--------+ + | Medication Refill | 02/04/ | | | | 2013 | | + +--------+ + Encounter Details +--------+--------+ + + + | Date | Type | Department | Care Team | Description | +--------+--------+ + + + | 02/04/ | Refill | [facility] [place] | Abhinav, | Medication Refill | | 2013 | | PULMONARY [address] | Florence You MD | | | | | [place], | | | | | | [place] [address] | | | | | | [phone] | | | +--------+--------+ + + + [...] Telephone Encounter - Cassidy Xavier RN - 02/04/2014 8:18 AM PDTerrorElectronically si gned by Cassidy Xavier RN at 02/04/2014 8:18 AM PDTdocumented in this encounter Plan of Treatment [...] | | | | | [place] | | | | | | [address] | | | | | | | [...]
--- OUTSIDE RECORDS SUMMARY | ~2019-12-17 | XMS | Encounter Summary ---
Demographics + + + | Address | [address] | | | [place] [address] | + + + | Home Phone | | + + + | Preferred Language | Unknown | + + + | Marital Status | | + + + | Samaritan Affiliation | 1013 | + + + | Race | Unknown | + + + | Ethnic Group | Unknown | + + + Author + + + | Author | [facility] | | | and [place] | + + + | Organization | [facility] | | [...] | | | | [place] [address] | | + + + + + | Juana Gasca | ECON | [address] | | | | | [place] | | | | | [address] | | + + + + + | Chad Gasca | ECON | Unknown | | + + + + + Care Team Providers + +------+ + | Care Date Night Caregiver Name | Role | Phone | + [...] + + | 03/18/ | Refill | [facility] | Yuri Raymond | Medication Refill | | 2019 | | PULMONOLOGY [address] | Rush Raymond MD [address] | | | | | [address] | [address] | | | | | [place] | [place] [address] | | | | | [address] | [phone] | | | | | [phone] | | | +--------+--------+ + + + [...] | | | | | | [facility] [facility] [place] | | | | | | [address] | | | | | | | [...]
--- OUTSIDE RECORDS SUMMARY | ~2019-12-17 | XMS | Encounter Summary ---
Demographics + + + | Address | [address] | | | [place] [address] | + + + | Home Phone | | + + + | Preferred Language | Unknown | + + + | Marital Status | | + + + | Gnosticist Affiliation | 1013 | + + + | Race | Unknown | + + + | Ethnic Group | Unknown | + + + Author + + + | Author | [facility] | | | and [place] | + + + | Organization | [facility] | [...] | | | | [place] [address] | | + + + + + | Juana Gasca | ECON | [address] | | | | | [place] | | | | | [address] | | + + + + + | Chad Gasca | ECON | Unknown | | + + + + + Care Team Providers + +------+ + | Care Space Officer Name | Role | Phone | + +------+ + | Timo Lorenzana | PCP | | | MD | | | + +------+ + Reason for Visit + +--------+ + | Reason | Onset | Comments | | | Date | | + +--------+ + | Medication Refill | 04/13/ | | | | 2014 | | + +--------+ + Encounter Details +--------+--------+ + + + | Date | Type | Department | Care Team | Description | +--------+--------+ + + + | 04/13/ | Refill | [facility] [place] | Abhinav, | Medication Refill | | 2014 | | PULMONARY [address] | Florence You MD | | | | | [place], | | | | | | [place] [address] | | | | | | [phone] | | | +--------+--------+ + + + [...] | | | [facility] [place] | | | | | | [address] | | | | | | | [...]
--- OUTSIDE RECORDS SUMMARY | ~2019-12-17 | XMS | Encounter Summary ---
Demographics + + + | Address | [address] | | | [place] [address] | + + + | Home Phone | | + + + | Preferred Language | Unknown | + + + | Marital Status | | + + + | Voodoo Affiliation | 1013 | + + + | Race | Unknown | + + + | Ethnic Group | Unknown | + + + Author + + + | Author | [facility] | | | and [place] | + + + | Organization | [facility] | | [...] | | | | [place] [address] | | + + + + + | Juana Gasca | ECON | [address] | | | | | [place] | | | | | [address] | | + + + + + | Chad Gasca | ECON | Unknown | | + + + + + Care Team Providers + +------+ + | Care Media Center Specialist Name | Role | Phone | + +------+ + PCP | Unavailable | + +------+ + Encounter Details +--------+ + + + + | Date | Type | Department | Care Team | Description | +--------+ + + + + | 03/07/ | [facility] | [facility] | Ramo Fortune | Atrial Fibrillation | | 2007 | Encounter | [facility] | MD [address] | ([facility]) | | | | CLINICAL DECISION | Calvin Pastor | | | | | [address] | [place] [address] | | | | | [place], [place] | [phone] | | | | | [address] | | | | | | [phone] | | | +--------+ + + + [...] [place] | | | | | | [address] | | | | | | | [...]
--- OUTSIDE RECORDS SUMMARY | ~2019-12-17 | XMS | Encounter Summary ---
Demographics + + + | Address | [address] | | | [place] [address] | + + + | Home Phone [...] | | | | [place] [address] | | + + + + + | Juana Gasca | ECON | [address] | | | | | [place] | | | | | [address] | | + + + + + | Chad Gasca | ECON | Unknown | | + + + + + Care Team Providers + +------+ + | Care Timber Estimator Name | Role | Phone | + +------+ + | Timo Lorenzana | PCP | | | MD | | | + +------+ + Reason for Visit +--------+--------+ + | Reason | Onset | Comments | | | Date | | +--------+--------+ + | Other | 05/17/ | schedule follow up | | | 2012 | | +--------+--------+ + Encounter Details +--------+ + + + + | Date | Type | Department | Care Team | Description | +--------+ + + + + | 05/17/ | Telephone | [facility] [place] | Cassidy Xavier, | Other (schedule | | 2012 | | PULMONARY [address] | RN | follow up) | | | | [place], | | | | | | [place] [address] | | | | | | [phone] | | | +--------+ + + + [...] Telephone Encounter - Florence La MD - 05/17/2013 4:21 PM PSTOkay. He can let u s know if he needs us. Thanks. 13 4:21 PM PSTTelephone Encounter - Cassidy Xavier RN - 05/17/2013 3:14 PM PSTJen call ed Serge to schedule a follow up. She asked me to talk with him. He does not feel that he ne eds a follow up with Dr La at this time. He is seeing his PCP on Monday and will ask if he recommends that he come. Serge is feeling much better and went out to lunch today and to the casino. He tolerated the activity well. He finished a 6 day Prednisone course lj mims and had been taking 4 nebulizer Rx daily. documented in this encounter Plan of Treatment [...] | | | | | [place], [place] | | | | | | [address] | | | | | | | [...]
--- OUTSIDE RECORDS SUMMARY | ~2019-12-17 | XMS | Encounter Summary ---
Demographics + + + | Address | [address] | | | [place] [address] | + + + | Home Phone | | + + + | Preferred Language | Unknown | + + + | Marital Status | | + + + | Congregation Affiliation | 1013 | + + + | Race | Unknown | + + + | Ethnic Group | Unknown | + + + Author + + + | Author | [facility] | | | and [place] | + + + | Organization | [facility] | | [...] | | | | [place] [address] | | + + + + + | Juana Gasca | ECON | [address] | | | | | [place] | | | | | [address] | | + + + + + | Chad Gasca | ECON | Unknown | | + + + + + Care Team Providers + +------+ + | Care Double Spindle Shaper Operator Name | Role | Phone | + +------+ + | Timo Lorenzana | PCP | | | MD | | | + +------+ + Reason for Visit +--------+ + | Reason | Comments | +--------+ + | COPD | f/u | +--------+ + Encounter Details +--------+---------+ + + + | Date | Type | Department | Care Team | Description | +--------+---------+ + + + | 12/29/ | Office | [facility] | [place], | COPD (chronic | | 2014 | Visit | PULMONARY [address] | Florence You MD | obstructive | | | | [place], | | pulmonary disease); | | | | [place] [address] | | Obstructive sleep | | | | [phone] | | apnea on BiPAP; | | | | | | Nocturnal hypoxemia | | | | | | due to emphysema | | | | | | ([facility]) | +--------+---------+ + + + Social History [...] + + + | Blood Pressure | 118/66 | 12/29/2014 3:17 PM | | | | | PDT | | + + + + + | Pulse | 70 | 12/29/2014 3:17 PM | | | | | PDT | | + + + + + | Temperature | - | - | | + + + + + | Respiratory Rate | 14 | 12/29/2014 3:17 PM | | | | | PDT | | + + + + + | Oxygen Saturation | 92% | 12/29/2014 3:17 PM | room air | | | | PDT | | + + + + + | Inhaled Oxygen | - | - | | | Concentration | | | | + + + + + | Weight | 122.4 kg (269 lb | 12/29/2014 3:17 PM | | | | 14.4 oz) | PDT | | + + + + + | Height | 184.2 cm (6' 0.52") | 12/29/2014 3:17 PM | | | | | PDT | | + + + + + | Body Mass Index | 36.08 | 12/29/2014 3:17 PM | | | | | PDT | | + + + + + documented in this encounter Patient Instructions Patient Instructions Florence La MD - 12/29/2014 3:55 PM PDTStay on the Advair and Spiriva for now. Use the new albuterol nebulizers as needed once you get them (hopefully today). If in 2 weeks, this has not cleared up, call me, and we will give you a short course of ant ibiotics and low dose prednisone. I suspect this is rebound from being off the prednisone, plus the air quality. Try to avoid smoky places. documented in this encounter Progress Notes Florence La MD - 12/29/2014 3:16 PM PDTFormatting of this note might be differe nt from the original. Pulmonary Follow Up HPI Serge Gasca is a 79 y.o. male patient of Timo Lorenzana MD here today for fo llow up of COPD. At their last visit, we had stopped his Spiriva and continued his Advair. We rechecked his overnight oximetry, and weaned him down to 1L of oxygen bled in to his BiPAP machine. Since their last visit he feels like he has been doing well overall. He does note he has a lot mor e phlegm production which is clear in color, for the last several weeks to a month. He has n ot been sick that he is aware of. He resumed his Spiriva on 12/06 because of the increased cough. He called on 12/22 and let us know he was doing worse. He was scheduled to be seen today. He is currently on Advair twice daily, and Spiriva once daily. He stopped the Duonebs after talking to us. We did order him albuterol nebulizers, which he should receive today. His notes that before he started the Spiriva he sounded like he had bronchitis, and si nce being back on it, he no longer sounds like that. He feels like before going on the Spiri va he coughed up phlegm a lot, and now he feels like he has difficulty getting it up. He now feels like he is more hoarse and his voice is strained. He does not seem to be short of breath with his regular activities. He is not exercising r egularly. He does have to do a fair bit of walking when he has been travelling with his back and forth to [facility] for her recent cochlear implants. He notes he has not been dyspneic walking this. He can probably walk 1/4 to 1/2 mile without stopping. This has improved consi derably compared to 1/2 to 1 block before. He has been evaluated for nocturnal oxygen and does use it. He is currently on 1 LPM at [facility] ht bled in to his BiPAP machine. He is using his BiPAP machine nightly. Past Medical History Past Medical History Diagnosis [...] Swelling Medications: Outpatient Encounter Prescriptions as of 12/29/2014 Medication Sig Dispense Refill albuterol (PROAIR HFA) [...] inhaled tw ice daily 3 each 4 Mazhzdlesda-Toxucedbe-Muv C-Mn (GLUCOSAMINE 1500 COMPLEX PO) Take 1,500 [...] mg by mouth nightly. Respiratory Therapy Supplies [facility] Discontinue nebulizer. Fax to [facility]. 1 each 99 torsemide (DEMADEX) 20 mg tablet Take 40 mg by mouth 2 times daily. warfarin (COUMADIN) 7.5 mg tablet Take 7.5 mg by mouth Daily. Take 7.5mg on Monday and Monday. Take 10mg all other days No facility-administered encounter medications on file as of 12/29/2014. Review of Systems: General: []Weight loss/gain (over 10 lbs) []Fever/chills/sweats []Night sweats EENT: []Hearing loss []Vision loss/change []Sinus congestion/nasal drainage []Nosebleeds [] Hoarseness Cardiac: []Chest pain []Palpitations/heart racing []Swelling of legs/ankles []Waking up at night s hort of breath []Difficulty sleeping flat Gastrointestinal: []Nausea/vomiting []Difficulty swallowing []Heartburn/acid reflux []Loss of appetite []Abd ominal pain Urologic: []Blood in urine []Frequent urination at night []Burning/painful urination []Difficulty wit h urination Objective BP 118/66 mmHg | Pulse 70 | Resp 14 | Ht 1.842 m (6' 0.52") | Wt 122.426 kg (269 lb 14.4 oz ) | BMI 36.08 kg/m2 | SpO2 92% RA General Appearance: Alert, cooperative, no distress, [...] deformity Heart: Regular rate and rhythm, faint murmur, positive valve click, no rub or gallop Abdomen: Soft, non-tender, non-distended Extremities: No cyanosis, clubbing, bilateral trace edema Pulses: Radial pulses 2+ and symmetric Skin: Warm and dry Lymph nodes: Cervical and supraclavicular nodes normal Data: BIPAP Data: Dates: 11/22/14-12/21/14 Machine type: Respironics BIPAP [facility]: [facility] Maximum Titrated IPAP Pressure: 16.0cmH2O Average Device IPAP Pressure <= 90% of Time: 13.7 cmH2O Maximum Titrated EPAP Pressure: 13.2 cmH2O Average Device EPAP Pressure <= 90% of Time: 11.4 cmH2O AHI: 0.8 events/hour Total number of days: 30 Number of days used: 30 Median daily usage: 6 hours 8 minutes 43 seconds Percent of days used for more than 4 hours: 96.7 % Average Time in Large Leak per Day: 28 seconds Overnight oximetry was done on June 27, 2014 on BiPAP without oxygen and was reviewed an d interpreted in clinic today. It shows he spent 23 minutes with a saturation less than 88%. Immunization History Administered Date(s) Administered INFLUENZA, TRIVALENT PRESERVATIVE FREE (PED/ADOL/ADULT) 04/18/2012, 02/03/2013, 014 PNEUMOCOCCAL CONJUGATE 13-VALENT (PCV13) 05/01/2014 PNEUMOCOCCAL POLYSACCHARIDE 23-VALENT (PPSV23) 07/19/2009 Assessment ICD-9-CM 1. COPD (chronic obstructive pulmonary disease) 496 Increased cough and mucous production, improved with resumption of Spiriva, but not at baseline. We will continue Spiriva and addit ional 2 weeks, and if not resolved, do a short course of steroids and prednisone. 2. Obstructive sleep apnea on BiPAP 327.23 Great compliance and control on BiPAP machine. C ontinue current settings. 3. 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 I offered to repeat at th is time, and he would like to wait until he is feeling better. 327.26 Plan 1.Continue BiPAP current settings. 2.Continue Advair + Spiriva. 3.If cough is not resolved in 2 weeks, I asked that he call, and we can give him a course o f cephalexin 500mg 4 times daily for 10 days and prednisone 20mg daily for 5 days. 4. Continue oxygen at night at 1L, recheck overnight oximetry on BiPAP only at follow up ap pointment. He was advised to call if new pulmonary symptoms were to develop. Return to clinic in 3 months, or sooner with concerns. CC: Timo Lorenzana MD Portions of this report were transcribed using voice recognition software. Every effort wa s made to ensure accuracy; however, inadvertent computerized pricing associate errors may be pre sent. documented in [...] | | | | | [place], [place] | | | | | | [address] | | | | | | | [...]
--- OUTSIDE RECORDS SUMMARY | ~2019-12-17 | XMS | Encounter Summary ---
Demographics + + + | Address | [address] | | | [place] [address] | + + + | Home Phone | | + + + | Preferred Language | Unknown | + + + | Marital Status | | + + + | Mosque Affiliation | 1013 | + + + | Race | Unknown | + + + | Ethnic Group | Unknown | + + + Author + + + | Author | [facility] | | | and [place] | + + + | Organization | [facility] | | | [...] | | | | [place] [address] | | + + + + + | Juana Gasca | ECON | [address] | | | | | [place] | | | | | [address] | | + + + + + | Chad Gasca | ECON | Unknown | | + + + + + Care Team Providers + +------+ + | Care Professor Of Social Work Name | Role | Phone | + [...] | | | | | [place] [address] | | | | | | [phone] | | | +--------+ + + + [...] [place] | | | | | | [address] | | | | | | | [...]
--- OUTSIDE RECORDS SUMMARY | ~2019-12-17 | XMS | Encounter Summary ---
Demographics + + + | Address | [address] | | | [place] [address] | + + + | Home Phone | | + + + | Preferred Language | Unknown | + + + | Marital Status | | + + + | Moravian Affiliation | 1013 | + + + [...] | | | | [place] [address] | | + + + + + | Juana Gasca | ECON | [address] | | | | | [place] | | | | | [address] | | + + + + + | Chad Gasca | ECON | Unknown | | + + + + + Care Team Providers + +------+ + | Care Supervising Editor Trailer Name | Role | Phone | + +------+ + | Timo Lorenzana | PCP | | | MD | | | + +------+ + Reason for Visit + +--------+ + | Reason | Onset | Comments | | | Date | | + +--------+ + | Post-op Question | 11/17/ | | | | 2020 | | + +--------+ + Encounter Details +--------+ + + + + | Date | Type | Department | Care Team | Description | +--------+ + + + + | 11/17/ | Telephone | [facility] | Coty Bruner, | Post-op Question | | 2020 | | CARDIOLOGY [place] [place] | | | | | [address] | | | | | | [place] | | | | | | [address] | | | | | | [phone] | | | +--------+ + + + [...] this encounter Miscellaneous Notes Telephone Encounter - Mansoor Strong FNP - 11/18/2019 11:07 AM PDTSpoke with pat aaronnt he says he feels like his got some swelling underneath the incision. He to the incisio n site looks good but there is some swelling underneath it. He is in a send me some picture s so we can take a look at it and I will call him back. elephone Encounter - Coty Bruner CMA - 11/17 10:21 AM PDT Patient called concerned about his chest being swollen not the actual in cision site he said right under it. Patient mentioned that he was also worried that it could be caused by internal bleeding. Patient would like a call back please at [phone] onically signed by Coty Bruner CMA at 11/18/2019 10:33 AM PDTdocumented in this encounter Plan of [...] | | | | | [place], [place] | | | | | | [address] | | | | | | | [...]
--- OUTSIDE RECORDS SUMMARY | ~2019-12-17 | XMS | Encounter Summary ---
Demographics + + + | Address | [address] | | | [place] [address] | + + + | Home Phone [...] + + | Author | [facility] | | | and [place] | + + + | Organization | [facility] | | | [...] | | | | [place] [address] | | + + + + + | Juana Gasca | ECON | [address] | | | | | [place] | | | | | [address] | | + + + + + | Chad Gasca | ECON | Unknown | | + + + + + Care Team Providers + +------+ + | Care Ballet Company Member Name | Role | Phone | + [...] + + | 11/11/ | Telephone | [facility] | Spenser Potter, | Pre-Op | | 2019 | | CENTER IN[facility] OP | [address] | | | | | [address] | [place], | | | | | [place] | [place] [address] | | | | | [address] | [phone] | | | | | [phone] | | | +--------+ + + + [...] [place] | | | | | | [address] | | | | | | | [...]
--- OUTSIDE RECORDS SUMMARY | ~2019-12-17 | XMS | Encounter Summary ---
Demographics + + + | Address | [address] | | | [place] [address] | + + + | Home Phone | | + + + | Preferred Language | Unknown | + + + | Marital Status | | + + + | Yarsanism Affiliation | 1013 | + + + [...] | | | | [place] [address] | | + + + + + | Juana Ventura | ECON | [address] | | | | | [place] | | | | | [address] | | + + + + + | Chad Ventura | ECON | Unknown | | + + + + + Care Team Providers + +------+ + | Care Gang Tailer Name | Role | Phone | + +------+ + | Timo Lorenzana | PCP | | | MD | | | + +------+ + Encounter Details +--------+ + + + + | Date | Type | Department | Care Team | Description | +--------+ + + + + | 07/19/ | Hospital | [facility] | [place], | Cough | | 2012 - | Encounter | MED CTR XRAY [address] | Florence Yuo MD | | | | | [place] | | | | 07/21/ | | [place] [address] | | | | 2012 | | [phone] | | | +--------+ + + + [...] | | | | | [place], [place] | | | | | | [address] | | | | | | | [...] Performed At | + + + | [facility] | [place] | | Department [address] [place] [address] | [facility] | | [ rep [address]] [ rep [facility] | | [facility]] Signed | - IMAGING | | | | | Patient Name: SERGE VENTURA Physician: | | | : 1935 Age: 77 Sex: M Unit #: [id number] | | | Exam Date: 07/19/12 Location: [facility] | | | Report #: [id number] Page: | | | %(RAD)RES..mtdd.print.filter("pg") of %(RAD) | | | RES..mtdd.print.filter("tpg") | | | | | | Accession Number: [id number] | | | TWO-VIEW CHEST CLINICAL HISTORY: [...] Transcribed Date/Time: | | | 07/19/2012 19:42 Porcelain Slusher: | | | <<Signature on File>> | | | | | | Orlando Mheta MD07/20/12 0836 <Electronically signed by | | | Orlando Mehta MD> Orlando Mehta MD 07/19/12 | | | 1733 Porcelain Slusher: Lj [id number] | | | Florence La MD | | + + + + + + + + | Performing | Address | City/State/Zipcode | Phone Number | | Organization | | | | + + + + + | [place] [address] | [address] | [place] | [phone] | | [facility] | | [address] | | | - IMAGING | | | | + + + + + documented in this encounter Visit Diagnoses + + | Diagnosis | + + | Cough | + + documented in this encounter
--- OUTSIDE RECORDS SUMMARY | ~2019-12-17 | XMS | Encounter Summary ---
Demographics + + + | Address | [address] | | | [place] [address] | + + + | Home Phone [...] | | | | [place] [address] | | + + + + + | Juana Gasca | ECON | [address] | | | | | [place] | | | | | [address] | | + + + + + | Chad Gasca | ECON | Unknown | | + + + + + Care Team Providers + +------+ + | Care Outreach Nurse Name | Role | Phone | + +------+ + | Timo Lorenzana | PCP | | | MD | | | + +------+ + Reason for Visit + +--------+ + | Reason | Onset | Comments | | | Date | | + +--------+ + | Cardiac Problem | 11/10/ | | | | 2019 | | + +--------+ + Encounter Details +--------+ + + + + | Date | Type | Department | Care Team | Description | +--------+ + + + + | 11/10/ | Telephone | [facility] | Spenser Potter, | Cardiac Problem | | 2019 | | CARDIOLOGY [place] | [address] | | | | | [address] | [place], | | | | | [place] | [place] [address] | | | | | [address] | [phone] | | | | | [phone] | | | +--------+ + + + [...] this encounter Miscellaneous Notes Telephone Encounter - Marva Lozoya V - 11/12/2019 10:29 AM PDTLeft message for patient to schedule procedure with Dr. Spenser Alcazarectronically signed by Marva Lozoya V at 11/12/2019 1 0:31 AM PDTTelephone Encounter - Spenser Potter MD - 11/11/2019 6:39 PM PDTI talked to t his patient today. Apparently, he was told by our office that the procedure was canceled fr om today "because insurance did not approve it and a ldrw-gd-lmvn evaluation was needed". U nfortunately, I did not know anything about this. The rep was there today also ([facility]). I told him we would get this done on Monday, at 11:30 AM and he dominique berry show up at 10 AM. He has the insurance approval letter in his hands ([facility]). He understands the need to take Hibiclens the night before the procedure in the morning of the procedure. I told him to avoid taking any medicines or food the morning of the procedu re. documented in this encounter Plan of Treatment [...] | | | | | [place] | | | | | | [id number] | | | | | | | [...]
--- OUTSIDE RECORDS SUMMARY | ~2019-12-17 | XMS | Encounter Summary ---
Demographics + + + | Address | [address] | | | [place] [address] | + + + | Home Phone | | + + + | Preferred Language | Unknown | + + + | Marital Status | | + + + | Zoroastrianism Affiliation | 1013 | + + + [...] | | | | [place] [address] | | + + + + + | Juana Gasca | ECON | [address] | | | | | [place] | | | | | [address] | | + + + + + | Chad Gasca | ECON | Unknown | | + + + + + Care Team Providers + +------+ + | Care Menhaden Fishing Crew Member Name | Role | Phone | + +------+ + | Timo Lorenzana | PCP | | | MD | | | + +------+ + Encounter Details +--------+ + + + + | Date | Type | Department | Care Team | Description | +--------+ + + + + | 02/05/ | Hospital | [facility] | Conversion | Pain | | 2016 | Encounter | CONVERSION [address] | Transaction, | | | | | [address] | Provider Unknown | | | | | [place] | [phone] | | | | | [address] | | | | | | [phone] | | | +--------+ + + + [...] | | | | | [place] | | | | | | [address] | | | | | | | [...]
--- OUTSIDE RECORDS SUMMARY | ~2019-12-17 | XMS | Encounter Summary ---
Demographics + + + | Address | [address] | | | [place] [address] | + + + | Home Phone [...] | | | | [place] [address] | | + + + + + | Juana Gasca | ECON | [address] | | | | | [place] | | | | | [address] | | + + + + + | Chad Gasca | ECON | Unknown | | + + + + + Care Team Providers + +------+ + | Care Roll Former Name | Role | Phone | + [...] + + | 11/25/ | Procedure | [facility] | | Cardiac pacemaker in | | 2020 | visit | CARDIOLOGY [place] | | situ (Primary Dx) | | | | [address] | | | | | | [address] [address] | | | | | | [place], [place] | | | | | | [address] | | | | | | [phone] | | | +--------+ + + + [...] MD : 1935 Primary cardiology provider: Elif Pasc[place] Primary electrophysiology provider: Spenser Potter Mode of interrogation: Seen in cardiac device clinic Device: [employer] Battery Longevity: 10.5 years. RV Pacin% [...] arrhythmias noted. Testing performed by: Yesika Cadet, [employer] Reviewed by: GINGER Hinojosa documented in this [...] [place] | | | | | | [address] | | | | | | | [...] cardiology | | | provider: Elif [facility] Primary electrophysiology provider: Spenser | | | Tariq Mode of interrogation: Seen in cardiac device | | | clinic Device: [employer] Battery Longevity: 10.5 | | | [...] performed by: Yesika Cadet, | | | National Institutes of Health (NIH) Tech Reviewed by: GINGER Hinojosa | | + + + + +---------+ + + | Performing | Address | City/State/[facility] | Phone Number | | Organization | | | | + +---------+ + + | [facility] | | | | + +---------+ + + documented in this encounter Visit Diagnoses + + | Diagnosis | + + | Cardiac pacemaker in situ - Primary | + + documented in this encounter"
--- OUTSIDE RECORDS SUMMARY | ~2019-12-17 | XMS | Encounter Summary ---
Demographics + + + | Address | [address] | | | [place] [address] | + + + | Home Phone | | + + + | Preferred Language | Unknown | + + + | Marital Status | | + + + | Catholic Affiliation | 1013 | + + + | Race | Unknown | + + + | Ethnic Group | Unknown | + + + Author + + + | Author | [facility] | | | and [place] | + + + | Organization | [facility] | | | [...] | | | | [place] [address] | | + + + + + | Juana Gasca | ECON | [address] | | | | | [place] | | | | | [address] | | + + + + + | Chad Gasca | ECON | Unknown | | + + + + + Care Team Providers + +------+ + | Care Direct Selling Counselor Name | Role | Phone | + +------+ + | Timo Lorenzana | PCP | | | MD | | | + +------+ + Reason for Visit +--------+--------+ + | Reason | Onset | Comments | | | Date | | +--------+--------+ + | Other | 02/26/ | ALBUTEROL INHALER QUESTION | | | 2012 | | +--------+--------+ + Encounter Details +--------+ + + + + | Date | Type | Department | Care Team | Description | +--------+ + + + + | 02/26/ | Telephone | [facility] | Abhinav, | Other (ALBUTEROL | | 2012 | | PULMONARY [address] | Florence You MD | INHALER QUESTION) | | | | [place], | | | | | | [place] [address] | | | | | | [phone] | | | +--------+ + + + [...] this encounter Miscellaneous Notes Telephone Encounter - Kassidy Parkinson RN - 02/26/2013 4:36 PM PDTPatient called to say he r eceived ProAir HFA inhalers and he normally gets Ventolin. I advised they were both albutero l, and that ProAir is probably the preferred brand his insurance covers. He understood.Elect ronically signed by Kassidy Parkinson RN at 02/26/2013 4:37 PM PDTdocumented in this encounter Plan of [...] [place] | | | | | | [address] | | | | | | | [...]
--- OUTSIDE RECORDS SUMMARY | ~2019-12-17 | XMS | Encounter Summary ---
Demographics + + + | Address | [address] | | | [place] [address] | + + + | Home Phone [...] | | | | [place] [address] | | + + + + + | Juana Gasca | ECON | [address] | | | | | [place] | | | | | [address] | | + + + + + | Chad Gasca | ECON | Unknown | | + + + + + Care Team Providers + +------+ + | Care Information Security Associate Name | Role | Phone | [...] | | | | | [place] [address] | | | | | | [phone] | | | +--------+--------+ + + + [...] [place] | | | | | | [address] | | | | | | | [...]
--- OUTSIDE RECORDS SUMMARY | ~2019-12-17 | XMS | Encounter Summary ---
Demographics + + + | Address | [address] | | | [place] [address] | + + + | Home Phone [...] | | | | [place] [address] | | + + + + + | Juana Gasca | ECON | [address] | | | | | [place] | | | | | [address] | | + + + + + | Chad Gasca | ECON | Unknown | | + + + + + Care Team Providers + +------+ + | Care Survival Equipment Repairer Name | Role | Phone | + +------+ + | Timo Lorenzana | PCP | | | MD | | | + +------+ + Reason for Visit + +--------+ + | Reason | Onset | Comments | | | Date | | + +--------+ + | Cardiac Problem | 10/29/ | | | | 2019 | | + +--------+ + Encounter Details +--------+ + + + + | Date | Type | Department | Care Team | Description | +--------+ + + + + | 10/29/ | Telephone | [facility] | Spenser Potter, | Cardiac Problem | | 2019 | | CARDIOLOGY JULIAN | [address] | | | | | [address] | [place], | | | | | [place] | [place] [address] | | | | | [address] | [phone] | | | | | [phone] | | | +--------+ + + + [...] Telephone Encounter - Marva Lozoya V - 11/04/2019 4:37 PM PDTPatient was scheduled for a [place] pacemaker implant procedure for November 10. Procedure instructions and info was reviewe d with patient. Patient stated understanding, had no further questions or concerns. Electron eric signed by Marva Lozoya V at 11/04/2019 4:38 PM PDTTelephone Encounter - Spenser Potter MD - 10/30/2019 4:30 PM PDTReceived notification of this patient needs his [place] Sci entific pacemaker changed out. It is a dual-chamber system but since he is in permanent A. fib, he will just need a single lead device. That will be done on November 10 at noon. He needs to get Hibiclens and prep his chest tonight before the procedure in the morning of.Marya reyes signed by Spenser Potter MD at 10/30/2019 4:34 PM PDTdocumented in this encounter Plan of [...] | | | | | [place], [place] | | | | | | [address] | | | | | | | | +--------+ + + + + | 06/08/ | Procedure | Cardiology | | | | 2020 | visit | | | | +--------+ + + + + | 09/07/ | Procedure | Cardiology | | | | 202 | visit | | | | +--------+ + + + + documented as of this encounter Visit Diagnoses + + | Diagnosis | + + | Heart block - Primary Conduction disorder, unspecified | + + documented in this encounter"
--- OUTSIDE RECORDS SUMMARY | ~2019-12-17 | XMS | Encounter Summary ---
Demographics + + + | Address | [address] | | | [place] [address] | + + + | Home Phone | | + + + | Preferred Language | Unknown | + + + | Marital Status | | + + + | Orthodox Affiliation | 1013 | + + [...] | | | | [place] [address] | | + + + + + | Juana Ventura | ECON | [address] | | | | | [place] | | | | | [address] | | + + + + + | Chad Ventura | ECON | Unknown | | + + + + + Care Team Providers + +------+ + | Care Game Trapper Name | Role | Phone | + [...] | | [address] | [place], [place] | | | | | [place], [place] | [address] | | | | | [address] | | | | | | [phone] | | | +--------+ + + + [...] | | | | | [place] | | | | | | [address] | | | | | | | [...] | maxP.00 mmHg TR Vmax: 2.44 m/s Hotel Clerk: ROMAN | | | Authenticated by: Elif Pascualisle au haut Report Date/Time: 12-22-2016 | | | 18:57:07 | | + + + + + | Procedure Note | + + | Raudel Aguillon Conversion - 01/24/2019 6:35 PM PDT Patient Name: SERGE VENTURA | | of : 1935 Performing Physician: Elif | | [facility] INDICATIONS------ | | -----CHRONIC AFIB, PACEMAKER, [...] cmLVPWd: 1.30 | | cmLVOT Area: 4.44 [id number] Diam: 2.37 cm%FS: 29.59 %EF(Teich): 55.93 %ESV(Teich): [...] | | (A-L): 88.66 ml/m2LAAs A2C: 40.42 ow3ROXKA A-L A2C: 192.14 mlLALs A2C: 7.21 | | cmLAAs A4C: 44.95 jw4GVOJN A-L A4C: 230.04 mlLALs A4C: 7.45 cmRAAs: 36.03 | | iv0ATAXC A-L: 181.00 mlRAESV MOD: 158.29 mlRALs: 6.08 cmTAPSE: 1.64 cmAV maxPG: | | 15.56 mmHgAV meanP.06 mmHgAV Vmax: 1.97 m/Lauren Vmean: 1.44 m/Lauren VTI: 38.62 | | cmAVA Vmax: 1.81 cm2AVA (VTI): 1.83 ao0KKCB Vmax: 0.00 cm2/m2AVAI (VTI): 0.00 | | [...] 29.00 mmHgTR maxP.00 mmHgTR Vmax: 2.44 m/s Hotel Clerk: DBSAuthenticated by: | | [facility] Date/Time: 12-22-2016 18:57:07 IMPRESSION: 1. [...] |TR Vmax: 2.44 m/s | | | |Hotel Clerk: DBS | |Authenticated by: Elif Hylton | [...]
--- OUTSIDE RECORDS SUMMARY | ~2019-12-17 | XMS | Encounter Summary ---
Demographics + + + | Address | [address] | | | [place] [address] | + + + | Home Phone [...] | | | | [place] [address] | | + + + + + | Juana Gasca | ECON | [address] | | | | | [place] | | | | | [address] | | + + + + + | Chad Gasca | ECON | Unknown | | + + + + + Care Team Providers + +------+ + | Care Application Systems Engineer Name | Role | Phone | + +------+ + | Timo Lorenzana | PCP | | | MD | | | + +------+ + Encounter Details +--------+ + + + + | Date | Type | Department | Care Team | Description | +--------+ + + + + | 01/08/ | Orders Only | [facility] [place] | Cassidy Xavier, | Obstructive sleep | | 2012 | | PULMONARY [address] | RN | apnea (adult) | | | | [place], | | (pediatric) | | | | [place] [address] | | | | | | [phone] | | | +--------+ + + + [...] | | | | | | [place] [facility] [place] | | | | | | [address] | | | | | | | [...]
--- OUTSIDE RECORDS SUMMARY | ~2019-12-17 | XMS | Encounter Summary ---
Demographics + + + | Address | [address] | | | [place] [address] | + + + | Home Phone | | + + + | Preferred Language | Unknown | + + + | Marital Status | | + + + | Taoist Affiliation | 1013 | + + + | Race | Unknown | + + + | Ethnic Group | Unknown | + + + Author + + + | Author | [facility] | | | and [place] | + + + | Organization | [facility] | | [...] | | | | [place] [address] | | + + + + + | Juana Gasca | ECON | [address] | | | | | [place] | | | | | [address] | | + + + + + | Chad Gasca | ECON | Unknown | | + + + + + Care Team Providers + +------+ + | Care Pen Or Pencil Assembly Machine Operator Name | Role | Phone [...] MD | phlegm) | | | | [place], | | | | | | [place] [address] | | | | | | [phone] | | | +--------+ + + + [...] solution ordered. Advair and ProAir refilled at [facility]'s request. elepho ne Encounter - Florence La [...] | | | | | [place] | | | | | | [address] | | | | | | | [...]
--- OUTSIDE RECORDS SUMMARY | ~2019-12-17 | XMS | Encounter Summary ---
Demographics + + + | Address | [address] | | | [place] [address] | + + + | Home Phone | | + + + | Preferred Language | Unknown | + + + | Marital Status | | + + + | Mandaen Affiliation | 1013 | + + + | Race | Unknown | + + + | Ethnic Group | Unknown | + + + Author + + + | Author | [facility] | | | and [place] | + + + | Organization | [facility] | | | and [place] | + + + | Address | Unknown | + + + | Phone | Unavailable | + + + Support + + + + + | Name | Relationship | Address | Phone | + + + + + | Frances Gasca | ECON | NA | | | | | [place] [address] | | + + + + + | Juana Gasca | ECON | [address] | | | | | [place] | | | | | [address] | | + + + + + | Chad Gasca | ECON | Unknown | | + + + + + Care Team Providers + +------+ + | Care Plastic Outfitter Name | Role | Phone | + +------+ + | Timo Lorenzana | PCP | | | MD | | | + +------+ + Encounter Details +--------+ + + + + | Date | Type | Department | Care Team | Description | +--------+ + + + + | 04/03/ | Orders Only | [facility] | Conversion | | | 2013 | | CARDIOLOGY [place] | Transaction, | | | | | [address] | Provider Unknown | | | | | [place], [place] | | | | | | [address] | | | | | | [phone] | | | +--------+ + + + [...] [place] | | | | | | [address] | | | | | | | [...] + | BASIC METABOLIC | Routin | 04/03/2014 | | Results for this | | PANEL | e | 2:00 PM | | procedure are in the | | | | PDT | | results section. | + +--------+ + + + documented in this encounter Results Basic Metabolic Panel (04/03/2014 2:00 PM PDT) + + + + + + | Component | Value | Ref Range | Performed | Pathologist | | | | | At | Signature | + + + + + + | Glucose, | 114 (A) | 70 - 100 mg/dL | EXTERNAL | | | Fasting | | | LAB | | + + + + + + | BUN | 34 (A) | 6 - 23 mg/dL | EXTERNAL | | | | | | LAB | | + + + + + + | Creatinine | 1.17 | 0.70 - 1.18 | EXTERNAL | | | | | mg/dL | LAB | | + + + + + + | BUN/Creatin | 29.1 (A) | 6.0 - 28.6 | EXTERNAL | | | ine Ratio | | | LAB | | + + + + + + | Calcium | 9.5 | 8.4 - 10.2 | EXTERNAL | | | | | mg/dL | LAB | | + + + + + + | Na | 132 | 132 - 143 | EXTERNAL | | | | | mmol/L | LAB | | + + + + + + | K | 4.2 | 3.6 - 5.1 | EXTERNAL | | | | | mmol/L | LAB | | + + + + + + | Cl | 96 | 95 - 112 mmol/L | EXTERNAL | | | | | | LAB | | + + + + + + | CO2 | 28 | 19 - 31 mmol/L | EXTERNAL | | | | | | LAB | | + + + + + + | Anion Gap | 12.2 | 7 - 21 mmol/L | EXTERNAL | | | | | | LAB | | + + + + + + | Estimated | 60 | 60 mg/dL | EXTERNAL | | | GFR | | | LAB | | + + + + + [...]
--- OUTSIDE RECORDS SUMMARY | ~2019-12-17 | XMS | Encounter Summary ---
Demographics + + + | Address | [address] | | | [place] [address] | + + + | Home Phone | | + + + | Preferred Language | Unknown | + + + | Marital Status | | + + + | Moravian Affiliation | 1013 | + + + | Race | Unknown | + + + | Ethnic Group | Unknown | + + + Author + + + | Author | [facility] | | | and [place] | + + + | Organization | [facility] | | [...] | | | | [place] [address] | | + + + + + | Juana Gasca | ECON | [address] | | | | | [place] | | | | | [address] | | + + + + + | Chad Gasca | ECON | Unknown | | + + + + + Care Team Providers + +------+ + | Care Reimbursement Consultant Name | Role | Phone | + [...] | | | | | [place] [address] | | | | | | [phone] | | | +--------+ + + + [...] 23.3 minutes. Order sent to In Home Id rob. elephone Enco unthank - Florence La [...] Prevnar 13 pneumonia shot. They went to [facility] and the pharmacist said that thy [...] | | | | | [place] | | | | | | [address] | | | | | | | [...]
--- OUTSIDE RECORDS SUMMARY | ~2019-12-17 | XMS | Encounter Summary ---
Demographics + + + | Address | [address] | | | [place] [address] | + + + | Home Phone | | + + + | Preferred Language | Unknown | + + + | Marital Status | | + + + | Taoist Affiliation | 1013 | + + + | Race | Unknown | + + + | Ethnic Group | Unknown | + + + Author + + + | Author | [facility] | | | and [place] | + + + | Organization | [facility] | | [...] | | | | [place] [address] | | + + + + + | Juana Gasca | ECON | [address] | | | | | [place] | | | | | [address] | | + + + + + | Chad Gasca | ECON | Unknown | | + + + + + Care Team Providers + +------+ + | Care Tour Operator Name | Role | Phone | [...] | | | | | [place] [address] | | | | | | [phone] | | | +--------+--------+ + + + [...] [place] | | | | | | [address] | | | | | | | [...]
--- OUTSIDE RECORDS SUMMARY | ~2019-12-17 | XMS | Encounter Summary ---
Demographics + + + | Address | [address] | | | [place] [address] | + + + | Home Phone [...] | | | | [place] [address] | | + + + + + | Juana Gasca | ECON | [address] | | | | | [place] | | | | | [address] | | + + + + + | Chad Gasca | ECON | Unknown | | + + + + + Care Team Providers + +------+ + | Care Asl Interpreter Name | Role | Phone | + +------+ + | Timo Lorenzana | PCP | | | MD | | | + +------+ + Reason for Visit +--------+ + | Reason | Comments | +--------+ + | Other | Implant Record | +--------+ + Encounter Details +--------+ + + + + | Date | Type | Department | Care Team | Description | +--------+ + + + + | 11/13/ | Documentati | [facility] | Spenser Potter, | Other (Implant | | 2020 | on | CARDIOLOGY JULIAN | [address] | Record) | | | | [address] | [place], | | | | | [place] | [place] [address] | | | | | [address] | [phone] | | | | | [phone] | | | +--------+ + + + [...] + documented as of this encounter Progress Marva Fragoso V - 11/14/2019 3:33 PM PDTImplant Record documented in this encounter Plan of Treatment [...] | | | | | [place], [place] | | | | | | [address] | | | | | | | [...]
--- OUTSIDE RECORDS SUMMARY | ~2019-12-17 | XMS | Encounter Summary ---
Demographics + + + | Address | [address] | | | [place] [address] | + + + | Home Phone | | + + + | Preferred Language | Unknown | + + + | Marital Status | | + + + | Episcopalian Affiliation | 1013 | + + + [...] | | | | [place] [address] | | + + + + + | Juana Gasca | ECON | [address] | | | | | [place] | | | | | [address] | | + + + + + | Chad Gasca | ECON | Unknown | | + + + + + Care Team Providers + +------+ + | Care Magazine Feeder Name | Role | Phone | + [...] | | | | | [place] [address] | | | | | | [phone] | | | +--------+ + + + [...] 23.3 minutes. Order sent to In Home Hi rob. elephone Enco unthank - Florence La [...] Prevnar 13 pneumonia shot. They went to [facility] and the pharmacist said that thy need [...] | | | | | [place] | | | | | | [address] | | | | | | | [...]
--- OUTSIDE RECORDS SUMMARY | ~2019-12-17 | XMS | Encounter Summary ---
Demographics + + + | Address | [address] | | | [place] [address] | + + + | Home Phone | | + + + | Preferred Language | Unknown | + + + | Marital Status | | + + + | Quaker Affiliation | 1013 | + + + | Race | Unknown | + + + | Ethnic Group | Unknown | + + + Author + + + | Author | [facility] | | | and [place] | + + + | Organization | [facility] | | [...] | | | | [place] [address] | | + + + + + | Juana Gasca | ECON | [address] | | | | | [place] | | | | | [address] | | + + + + + | Chad Gasca | ECON | Unknown | | + + + + + Care Team Providers + +------+ + | Care Cut And Cover Line Worker Name | Role | Phone | [...] | (pediatric) | | | | [place] [address] | | | | | | [phone] | | | +--------+ + + + [...] | | | | | | [place] [facility] | | | | | | [address] | | | | | | | [...]
--- OUTSIDE RECORDS SUMMARY | ~2019-12-17 | XMS | Encounter Summary ---
Demographics + + + | Address | [address] | | | [place] [address] | + + + | Home Phone | | + + + | Preferred Language | Unknown | + + + | Marital Status | | + + + | Taoism Affiliation | 1013 | + + + | Race | Unknown | + + + | Ethnic Group | Unknown | + + + Author + + + | Author | [facility] | | | and [place] | + + + | Organization | [facility] | | [...] | | | | [place] [address] | | + + + + + | Juana Gasca | ECON | [address] | | | | | [place] | | | | | [address] | | + + + + + | Chad Gasca | ECON | Unknown | | + + + + + Care Team Providers + +------+ + | Care Oil Heater Operator Name | Role | Phone | + +------+ + PCP | Unavailable | + +------+ + Encounter Details +--------+ + + + + | Date | Type | Department | Care Team | Description | +--------+ + + + + | 06/02/ | Hospital | [facility] | [place], | | | 2010 | Encounter | MED CTR GENERIC OP | Florence You MD | | | | | CONV DEPT [address] | | | | | | [place], | | | | | | [place] [address] | | | | | | [phone] | | | +--------+ + + + [...] Florence La MD Pulmonary Medicine JOB #: [id number] EXT JOB #:[id number] EDITED: 06/03/2011 08:55 cc: Timo Lorenzana MD <Electronically Signed by Florence La MD> 06/03/11 5753 documented in this encounter Plan of Treatment [...] [place] | | | | | | [address] | | | | | | | [...]
--- OUTSIDE RECORDS SUMMARY | ~2019-12-17 | XMS | Encounter Summary ---
Demographics + + + | Address | [address] | | | [place] [address] | + + + | Home Phone [...] | | | | [place] [address] | | + + + + + | Juana Gasca | ECON | [address] | | | | | [place] | | | | | [address] | | + + + + + | Chad Gasca | ECON | Unknown | | + + + + + Care Team Providers + +------+ + | Care Correctional Facility Psychiatrist Name | Role | Phone | + +------+ + PCP | Unavailable | + +------+ + Encounter Details +--------+ + + + + | Date | Type | Department | Care Team | Description | +--------+ + + + + | 09/30/ | Hospital | [facility] | Jin Epps MD | CORONARY ATHEROSCLER | | 2005 - | Encounter | [facility] | [address] | [employer]SEL | | | | CARE FLOOR [address] | [place] [address] | | | 10/01/ | | [address] | [phone] | | | 2004 | | [place], [place] | | | | | | [address] | Ramo Fortune | | | | | [phone] | MD Jesus [address] | | | | | | [address] | | | | | | [place] [address] | | | | | | [phone] | | | | | | | [...] | | | | | [facility] [place] | | | | | | [address] | | | | | | | [...] Coronary atherosclerosis of unspecified type of vessel, [place] or graft | + + documented in this encounter"
--- OUTSIDE RECORDS SUMMARY | ~2019-12-17 | XMS | Encounter Summary ---
Demographics + + + | Address | [address] | | | [place] [address] | + + + | Home Phone | | + + + | Preferred Language | Unknown | + + + | Marital Status | | + + + | Buddhist Affiliation | 1013 | + + + | Race | Unknown | + + + | Ethnic Group | Unknown | + + + Author + + + | Author | [facility] | | | and [place] | + + + | Organization | [facility] | | | [...] | | | | [place] [address] | | + + + + + | Juana Gasca | ECON | [address] | | | | | [place] | | | | | [address] | | + + + + + | Chad Gasca | ECON | Unknown | | + + + + + Care Team Providers + +------+ + | Care Plastic Installer Name | Role | Phone | + [...] + + | 08/12/ | Refill | [facility] | Yuri Raymond | Medication Refill | | 2019 | | PULMONOLOGY [address] | Rush Raymond MD [address] | | | | | [address] | [address] | | | | | [place] | [place] [address] | | | | | [address] | [phone] | | | | | [phone] | | | +--------+--------+ + + + [...] | | | | | [place], [place] | | | | | | [address] | | | | | | | [...]
--- OUTSIDE RECORDS SUMMARY | ~2019-12-17 | XMS | Encounter Summary ---
Demographics + + + | Address | [address] | | | [place] [address] | + + + | Home Phone [...] [facility] | | | and [place] | + + + | Address | Unknown | + + + | Phone | Unavailable | + + + Support + + + + + | Name | Relationship | Address | Phone | + + + + + | Frances Ventura | ECON | NA | | | | | [place] [address] | | + + + + + | Juana Ventura | ECON | [address] | | | | | [place] | | | | | [address] | | + + + + + | Chad Ventura | ECON | Unknown | | + + + + + Care Team Providers + +------+ + | Care Rustic Terrazzo Setter Name | Role | Phone | + +------+ + PCP | Unavailable | + +------+ + Encounter Details +--------+ + + + + | Date | Type | Department | Care Team | Description | +--------+ + + + + | 11/17/ | Hospital | [facility] | Gabriel Davila, | | | 2009 - | Encounter | [facility] | MD [address] | | | | | CARDIAC TELEMETRY | [place] [address] | | | 11/19/ | | [address] [place] | [place] [address] | | | 2009 | | [place] | [phone] | | | | | [address] | | | | | | [phone] | | | +--------+ + + + [...] NAME: Denise Ventura Sex/Age: M/74 : 1935 [id number] ADMISSION DATE: 11/17/2009 DISCHARGE DATE: 11/19/2009 DISCHARGE [...] two weeks. Gabriel Davila MD A [facility] #[id number] cc: Gabriel Davila MD AUDREYSegundo ADM:11/17/09 [id number] 11/19/09 DIS IN [id number] DISCHARGE SUMMARY Gabriel kee MD [facility] THIS REPORT IS CONFIDENTIAL AND NOT TO BE RELEASED WITHOUT PROPER AUTHORIZATION.Electronica lly signed by Gabriel Davila MD at 04/11/2013 2:07 AM PSTdocumented in this encounter Miscellaneous Notes Op Note - Gabriel Davila MD - 04/10/2013 6:14 AM PST PATIENT NAME: DENISE VENTURA Date of : 1935 Age/Sex: 74Y / M SURGEON: Gabriel Davila MD SURGERY DATE: 11/17/2009 [id number] / [id number] PROCEDURES: 1. His ablation. 2. Reprogramming of pacer. PROCEDURE: The patient presents to undergo His ablation. The risks and options were explai mark to him in great detail, on multiple occasions. He is known to have refractory atrial ta chycardias, refractory to medication and multiple ablations. 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 The right femoral [...] and followup. Gabriel Davila MD [facility]/all #[id number] cc: Gabriel Davila MD Segundo VENTURA ADM:11/17/09 [id number] [facility] IN [id number] OPERATIVE REPORT Gabriel kee MD E-SIGN: N [facility] THIS REPORT IS CONFIDENTIAL AND NOT [...] [place] | | | | | | [address] | | | | | | | [...]
--- OUTSIDE RECORDS SUMMARY | ~2019-12-17 | XMS | Encounter Summary ---
Demographics + + + | Address | [address] | | | [place] [address] | + + + | Home Phone | | + + + | Preferred Language | Unknown | + + + | Marital Status | | + + + | Zoroastrianism Affiliation | 1013 | + + + | Race | Unknown | + + + | Ethnic Group | Unknown | + + + Author + + + | Author | [facility] | | | and [place] | + + + | Organization | [facility] | | [...] | | | | [place] [address] | | + + + + + | Juana Ventura | ECON | [address] | | | | | [place] | | | | | [address] | | + + + + + | Chad Ventura | ECON | Unknown | | + + + + + Care Team Providers + +------+ + | Care Shine Worker Name | Role | Phone | + +------+ + | Timo Lorenzana | PCP | | | MD | | | + +------+ + Encounter Details +--------+ + + + + | Date | Type | Department | Care Team | Description | +--------+ + + + + | 07/19/ | Hospital | [facility] | Offenstein, | Cough | | 2012 - | Encounter | MED CTR XRAY [address] | Florence You MD | | | | | [place] | | | | 07/21/ | | [place] [address] | | | | 2012 | | [phone] | | | +--------+ + + + [...] | | | | | [place], [place] | | | | | | [address] | | | | | | | [...] Performed At | + + + | [facility] | [place] | | Department [address] [place] [address] | [facility] | | [ rep ct [id number]] [ rep [facility] | | [facility]] Signed | - IMAGING | | | | | Patient Name: SERGE VENTURA Physician: | | | : 1935 Age: 77 Sex: M Unit #: [id number] | | | Exam Date: 07/19/12 Location: [facility] | | | Report #: [id number] Page: | | | %(RAD)RES..mtdd.print.filter("pg") of %(RAD) | | | RES..mtdd.print.filter("tpg") | | | | | | Accession Number: [id number] | | | TWO-VIEW CHEST CLINICAL HISTORY: [...] Transcribed Date/Time: | | | 07/19/2012 19:42 Hydroblaster: | | | <<Signature on File>> | | | | | | Orlando Mehta MD07/20/12 0836 <Electronically signed by | | | Orlando Mehta MD> Orlando Mehta MD 07/19/12 | | | 1733 Hydroblaster: Lj [id number] | | | Florence La MD | | + + + + + + + + | Performing | Address | City/State/Zipcode | Phone Number | | Organization | | | | + + + + + | [place] [facility] | [address] | [place] | [phone] | | [facility] | | [address] | | | - IMAGING | | | | + + + + + documented in this encounter Visit Diagnoses + + | Diagnosis | + + | Cough | + + documented in this encounter
--- OUTSIDE RECORDS SUMMARY | ~2019-12-17 | XMS | Encounter Summary ---
Demographics + + + | Address | [address] | | | [place] [address] | + + + | Home Phone [...] | | | | [place] [address] | | + + + + + | Juana Gasca | ECON | [address] | | | | | [place] | | | | | [address] | | + + + + + | Chad Gasca | ECON | Unknown | | + + + + + Care Team Providers + +------+ + | Care Dish Maker Name | Role | Phone | + +------+ + | Timo Lorenzana | PCP | | | MD | | | + +------+ + Reason for Visit + +--------+ + | Reason | Onset | Comments | | | Date | | + +--------+ + | Weight Gain | 04/26/ | | | | 2019 | | + +--------+ + Encounter Details +--------+ + + + + | Date | Type | Department | Care Team | Description | +--------+ + + + + | 04/26/ | Telephone | [facility] | Alicja Lloyd, | Weight Gain | | 2019 | | CARDIOLOGY JULIAN Davies RN | | | | | [address] | | | | | | [place] | | | | | | [address] | | | | | | [phone] | | | +--------+ + + + [...] Telephone Encounter - Alicja Lloyd RN - 04/26/2019 12:23 PM PSTReceived call from Kassidy ku RN at [facility]. She stated that patient has had a 5.8 lb weight gain in the las t 2 days. He denies edema, shortness of breath, chest pain. Message sent to Dr. Hylton for further instructions. Alicja Lloyd RN documented in this encounter Plan of Treatment [...] [place] | | | | | | [address] | | | | | | | [...]
--- OUTSIDE RECORDS SUMMARY | ~2019-12-17 | XMS | Encounter Summary ---
Demographics + + + | Address | [address] | | | [place] [address] | + + + | Home Phone [...] | | | | [place] [address] | | + + + + + | Juana Gasca | ECON | [address] | | | | | [place] | | | | | [address] | | + + + + + | Chad Gasca | ECON | Unknown | | + + + + + Care Team Providers + +------+ + | Care Veterinary Medicine Doctor Name | Role | Phone | [...] + + | 11/17/ | Telephone | [facility] | Coty Bruner, | Post-op Question | | 2020 | | CARDIOLOGY [place] | | | | | [address] | | | | | | [place] | | | | | | [address] | | | | | | [phone] | | | +--------+ + + + [...] would like a call back please at [phone] onically signed by Coty Bruner CMA at [...] | | | | | [place], [place] | | | | | | [address] | | | | | | | [...]
--- OUTSIDE RECORDS SUMMARY | ~2019-12-17 | XMS | Encounter Summary ---
Demographics + + + | Address | [address] | | | [place] [address] | + + + | Home Phone | | + + + | Preferred Language | Unknown | + + + | Marital Status | | + + + | Confucianist Affiliation | 1013 | + + + [...] | | | | [place] [address] | | + + + + + | Juana Gasca | ECON | [address] | | | | | [place] | | | | | [address] | | + + + + + | Chad Gasca | ECON | Unknown | | + + + + + Care Team Providers + +------+ + | Care Feather Baler Name | Role | Phone | + +------+ + PCP | Unavailable | + +------+ + Encounter Details +--------+ + + + + | Date | Type | Department | Care Team | Description | +--------+ + + + + | 07/05/ | Hospital | [facility] | Dennyenstein, | | | 2011 | Encounter | MED CTR XRAY [address] | Florence You MD | | | | | [place] | | | | | | [place] [address] | | | | | | [phone] | | | +--------+ + + + [...] | | | | | [place] | | | | | | [address] | | | | | | | [...] Performed At | + + + | [facility] | [facility] | | [address] [facility] | [facility] | | CT CHEST WITHOUT CONTRAST: | [facility] | | 07/05/2011 CLINICAL HISTORY: RESTRICTIVE [...] Transcribed Date/Time: | | | 07/06/2011 10:09 Sap Specialist: <Electronically Signed | | | by Vin Reyes MD> 07/07/11 1834 | | + + + + + | Procedure Note | + + | Pal, Rad Conversion - 07/12/2013 4:40 PM [facility] | | Diagnostic Imaging Department | | [address] , [facility] | | | | | | | [...] | Transcribed Date/Time: 07/06/2011 10:09 | | Sap Specialist: PONCE | | <Electronically Signed by Vin Reyes MD> 07/07/11 7412 | + + + +---------+ + + [...]
--- OUTSIDE RECORDS SUMMARY | ~2019-12-17 | XMS | Encounter Summary ---
Demographics + + + | Address | [address] | | | [place] [address] | + + + | Home Phone [...] | | | | [place] [address] | | + + + + + | Juana Gasca | ECON | [address] | | | | | [place] | | | | | [address] | | + + + + + | Chad Gasca | ECON | Unknown | | + + + + + Care Team Providers + +------+ + | Care Market Research Interviewer Name | Role | Phone | + [...] + + | 04/03/ | Office | [facility] | Elif Weinstein, | Atrial fibrillation, | | 2019 | Visit | CARDIOLOGY [place] | [address] | chronic (HCC) | | | | [address] | [place], [place] | (Primary Dx); | | | | [place] [address] | [address] | Hypertension; | | | | [place] | | Obstructive sleep | | | | [address] | | apnea on BiPAP; S/P | | | | [phone] | | AVR (aortic valve | | [...] into the lungs 2 (two) times daily. Odovqkgvvhp-Rbiinzyac-Agi C-Mn (GLUCOSAMINE 1500 COMPLEX PO) Take 3,000 [...] Take 10 mg by mouth daily. Sliding [facility] e, [place] regulates warfarin (COUMADIN) 7.5 mg tablet Take [...] Hx Pacemaker/ICD: 08/30/2007, Guidshelby Millerignshan 1291, SN: [id number]. Last interrogation 11/19/2018 1 year, RV pacing [...] FIELDS | | | | | | [place] | | | | | | [address] | | | | | | | [...]
--- OUTSIDE RECORDS SUMMARY | ~2019-12-17 | XMS | Encounter Summary ---
Demographics + + + | Address | [address] | | | [place] [address] | + + + | Home Phone | | + + + | Preferred Language | Unknown | + + + | Marital Status | | + + + | Zoroastrianism Affiliation | 1013 | + + + | Race | Unknown | + + + | Ethnic Group | Unknown | + + + Author + + + | Author | [facility] | | | and [place] | + + + | Organization | [facility] | [...] | | | | [place] [address] | | + + + + + | Juana Gasca | ECON | [address] | | | | | [place] | | | | | [address] | | + + + + + | Chad Gasca | ECON | Unknown | | + + + + + Care Team Providers + +------+ + | Care Youth Court Judge Name | Role | Phone | + +------+ + PCP | Unavailable | + +------+ + Encounter Details +--------+ + + + + | Date | Type | Department | Care Team | Description | +--------+ + + + + | 07/16/ | Hospital | [facility] | Enrique Graf, | VITREOUS HEMORRHAGE | | 2001 | Encounter | [facility] | [address] | ([facility]) | | | | OUTPATIENT | [place], [place] | | | | | PROCEDURES [address] | [address] | [address] | | [address] | | | | | | [place], [place] | | | | | | [address] | | | | | | [phone] | | | +--------+ + + + [...] [place] | | | | | | [address] | | | | | | | [...]
--- OUTSIDE RECORDS SUMMARY | ~2019-12-17 | XMS | Encounter Summary ---
Demographics + + + | Address | [address] | | | [place] [address] | + + + | Home Phone | | + + + | Preferred Language | Unknown | + + + | Marital Status | | + + + | Samaritan Affiliation | 1013 | + + + | Race | Unknown | + + + | Ethnic Group | Unknown | + + + Author + + + | Author | [facility] | | | and [place] | + + + | Organization | [facility] [...] | | | | [place] [address] | | + + + + + | Juana Gasca | ECON | [address] | | | | | [place] | | | | | [address] | | + + + + + | Chad Gasca | ECON | Unknown | | + + + + + Care Team Providers + +------+ + | Care Group Dynamics Instructor Name | Role | Phone | [...] + + | 03/18/ | Refill | [facility] | Elif Hylton, | Medication Refill | | 2019 | | CARDIOLOGY JULIAN | [address] | | | | | [address] | [place] | | | | | [place] | [address] | | | | | [address] | | | | | | [phone] | | | +--------+--------+ + + + [...] [place] | | | | | | [address] | | | | | | | [...]
--- OUTSIDE RECORDS SUMMARY | ~2019-12-17 | XMS | Encounter Summary ---
Demographics + + + | Address | [address] | | | [place] [address] | + + + | Home Phone [...] | | | | [place] [address] | | + + + + + | Juana Gasca | ECON | [address] | | | | | [place] | | | | | [address] | | + + + + + | Chad Gasca | ECON | Unknown | | + + + + + Care Team Providers + +------+ + | Care Senior Sourcing Manager Name | Role | Phone | [...] | | | | | [place] [address] | | | | | | [phone] | | | +--------+ + + + [...] daily, Disp: 3 each, Rfl: 4; Glucosam onv-Gwhwymqfp-Kdg C-Mn (GLUCOSAMINE 1500 COMPLEX PO), Take 1,500 [...] nightly., Disp: , Rfl: Respiratory Therapy Supplies [facility] [place], Discontinue nebulizer. Fax to [facility]., [...] [place] | | | | | | [address] | | | | | | | [...]
--- OUTSIDE RECORDS SUMMARY | ~2019-12-17 | XMS | Encounter Summary ---
Demographics + + + | Address | [address] | | | [place] [address] | + + + | Home Phone [...] | | | | [place] [address] | | + + + + + | Juana Gasca | ECON | [address] | | | | | [place] | | | | | [address] | | + + + + + | Chad Gasca | ECON | Unknown | | + + + + + Care Team Providers + +------+ + | Care Dog Breeder Name | Role | Phone | + [...] + + | 11/25/ | Procedure | [facility] | | Cardiac pacemaker in | | 2020 | visit | CARDIOLOGY [place] | | situ (Primary Dx) | | | | [address] | | | | | | [address] [address] | | | | | | [place], [place] | | | | | | [address] | | | | | | [phone] | | | +--------+ + + + [...] MD : 1935 [place] cardi[place] Primary electrophysiology provider: Spenser Potter Mode of interrogation: Seen in cardiac device clinic Device: [employer] Battery Longevity: 10.5 years. RV Pacin% [...] arrhythmias noted. Testing performed by: Yesika Cadet, [employer] Reviewed by: GINGER Hinojosa documented in this [...] [place] | | | | | | [address] | | | | | | | [...] Primary cardiology | | | provider: Elif [facility] Primary electrophysiology provider: Spenser | | | Tariq Mode of interrogation: Seen in cardiac device | | | clinic Device: [employer] Battery Longevity: 10.5 | | | [...] performed by: Yesika Cadet, | | | [employer] Reviewed by: GINGER Hinojosa | | + + + + +---------+ + + | Performing | Address | City/State[facility] | Phone Number | | Organization | | | | + +---------+ + + | [facility] | | | | + +---------+ + + documented in this encounter Visit Diagnoses + + | Diagnosis | + + | Cardiac pacemaker in situ - Primary | + + documented in this encounter"
--- OUTSIDE RECORDS SUMMARY | ~2019-12-17 | XMS | Encounter Summary ---
Demographics + + + | Address | [address] | | | [place] [address] | + + + | Home Phone | | + + + | Preferred Language | Unknown | + + + | Marital Status | | + + + | Shinto Affiliation | 1013 | + + + [...] | | | | [place] [address] | | + + + + + | Juana Gasca | ECON | [address] | | | | | [place] | | | | | [address] | | + + + + + | Chad Gasca | ECON | Unknown | | + + + + + Care Team Providers + +------+ + | Care Slat Basket Maker Helper Name | Role | Phone | + +------+ + PCP | Unavailable | + +------+ + Encounter Details +--------+ + + + + | Date | Type | Department | Care Team | Description | +--------+ + + + + | 03/07/ | [facility] | [facility] | Ramo Fortune | Atrial Fibrillation | | 2007 | Encounter | [facility] | [address] | ([facility]) | | | | CLINICAL DECISION | Calvin Pastor | | | | | [address] | [place] [address] | | | | | [place], [place] | [phone] | | | | | [address] | | | | | | [phone] | | | +--------+ + + + [...] [place] | | | | | | [address] | | | | | | | [...]
--- OUTSIDE RECORDS SUMMARY | ~2019-12-17 | XMS | Encounter Summary ---
Demographics + + + | Address | [address] | | | [place] [address] | + + + | Home Phone | | + + + | Preferred Language | Unknown | + + + | Marital Status | | + + + | Druze Affiliation | 1013 | + + + | Race | Unknown | + + + | Ethnic Group | Unknown | + + + Author + + + | Author | [facility] | | | and [place] | + + + | Organization | [facility] | | | and [place] | + + + | Address | Unknown | + + + | Phone | Unavailable | + + + Support + + + + + | Name | Relationship | Address | Phone | + + + + + | Frances Gasca | ECON | NA | | | | | [place] [address] | | + + + + + | Juana Gasca | ECON | [address] | | | | | [place] | | | | | [address] | | + + + + + | Chad Gasca | ECON | Unknown | | + + + + + Care Team Providers + +------+ + | Care Sales Account Executive Name | Role | Phone | + +------+ + | Mde Lorenzana | PCP | | | MD | | | + +------+ + Encounter Details +--------+ + + + + | Date | Type | Department | Care Team | Description | +--------+ + + + + | 03/07/ | Hospital | [facility] | Erika Simental | Rheumatic mitral | | 2013 - | Encounter | [facility] | MD [address] | valve disease; | | | | CARE FLOOR [address] | Calvin Pastor | Atrial fibrillation, | | 03/14/ | | [address] | [place] [address] | chronic (HCC) | | 2013 | | [place], [place] | [phone] | | | | | [address] | | | | | | [phone] | | | +--------+ + + + [...] of this note might be different from marcela zamora. Discharge Summaries by Andrei Lindsay PA-C at 03/17/141427 Author: Andrei Lindsay PA-C Service: Cardiac, Thoracic, and Vascular Surgery Author Type: Physician Mixer Driver - Certified Filed: 03/17/14 1441 Date of Service: 03/17/141427 Status: Attested Pharmacy Resident: Andrei Lindsay PA-C (Physician Mixer Driver - Certified) Cosigner: Timothy Whitaker MD at 03/18/14757 Attestation signed by Timothy Whitaker MD at 03/18/14757 I have examined Denise Gasca, reviewed the notes, assessments, and/or procedures perfor med by Andrei Lindsay PA-C, I concur with his documentation of Denise Gasca. [facility] Service: Cardiothoracic Surgery Discharge Summary Date of Admission: 03/07/2014 Date of Discharge: 03/14/2014 Discharge Provider: Andrei Lindsay PA-C Treatment Team: Admitting Provider: Erika Simental DO Discharge Diagnoses: Active Problems: * No [...] had Velazquez placed multiple times without success, Stan charles performed cystoscopy and dilation, patient tolerated the procedure well.The patient tole rated the sternotomy and aortic valve replacement [...] - REDO; Surgeon: Timothy Whitaker MD; Location: [facility] MAIN OR; Service: Cardiac; Laterality: N/A; Cystostomy w/ bladder dilation N/A 03/10/2014 Procedure: CYSTOSCOPY - DILATATION; Surgeon: Timothy Whitaker MD; Location: [facility] MAIN OR ; Service: Cardiac; [...] Requested: 1 Follow up: Med Lorenzana MD [facility] [address] [place] [address] On 03/18/2014 Medication List START taking these [...] are the prescriptions that you need to belt picker. You may get the following medications from [...] (none) Author Type: Registered Nurse Filed: 03/14/14 1544 Date of Service: 03/14/14 1400 Status: Signed Pharmacy Resident: Nataliia Baldwin RN (Registered Nurse) Reviewed d/c [...] Case Management by ARACELY Andrea at 03/14/14 1303 Author: ARACELY Andrea Service: (none) Author Type: Head Holder Filed: 03/14/146 Date of Service: 03/14/141302 Status: Signed Pharmacy Resident: ARACELY Andrea (Head Holder) 03/14/141302 Anticipated Discharge Plan Post Acute Care Needs (Will f/u at Coumadin clinic at [facility]) Anticipated Disposition Facility Type Home Disposition: Home Transportation: Son, Chad All DC paperwork completed Patient and family in agreement with transfer Medicare important message signed and copy in chart - signed 03/14 prior to dc Celina Whitfield onver gurpreet Transaction, Provider Unknown - 03/14/2014 9:15 AM PDT Therapy Progress Note by ZAYRA Acevedo at 03/14/14914 Author: ZAYRA Acevedo Service: (none) Author Type: Occupational Therapist Filed: 03/14/14919 Date of Service: 03/14/14914 Status: Signed Pharmacy Resident: ZAYRA Acevedo (Occupational Therapist) 03/14/14914 Plan Requires OT Follow Up Unavailable (Pt with nursing.) OT will re-attempt as census permits. onver gurpreet Transaction, Provider Unknown - 03/14/2014 8:44 AM PDT Nurse Progress Note by Larissa Alvarez RN at 03/14/14843 Author: Larissa Alvarez RN Service: (none) Author Type: Registered Nurse Filed: 03/14/14843 Date of Service: 03/14/14843 Status: Signed Pharmacy Resident: Larissa Alvarez, RN (Registered Nurse) Re-visited pt today regarding Coumadin Education. Good retention of information. Haritha Mackenzie PT - 03/14/2014 8:25 AM PDTFormatting of this note might be different from th e original. Therapy Progress Note by Haritha Jean, PT at 03/14/14824 Author: Haritha Jean PT Service: (none) Author Type: Physical Therapist Filed: 03/14/14 1053 Date of Service: 03/14/14824 Status: Signed Pharmacy Resident: Haritha Jean PT (Physical Therapist) 03/14/14824 PT Last Visit PT Received On 03/14/14 Reason for Treatment Cardiac Requires PT Follow Up Yes Follow up PT Only? 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 Retail Needed No Precautions Cardiac Precautions Sternal Other [...] instruction;Patient appears safe Maximal Ambulation Distance (feet) [id number] Total Ambulation Distance (feet) 200ft Distance limited [...] Recommendations Return to prior living situation;Other (comment) (cardaic rehab-once cleared by MD-recommended) Equipment Recommended Other (Comment);None (he reported he has what he needs) B/P 128/59 P 85- pre-PT Timothy Vázquez MD - 03/14/2014 7:33 AM PDT Progress Notes by Timothy Whitaker MD at 03/14/14732 Author: Timothy Whitaker MD Service: (none) Author Type: Physician Filed: 03/14/14735 Date of Service: 03/14/14732 Status: Signed Pharmacy Resident: Timothy Whitaker MD (Physician) [facility] Service: Cardio Thoracic Surgery Progress Note Pt: Denise Wilmer Elo AGE/SEX: 78 y.o. male ROOM: [facility] : 1935 PCP: MED LORENZANA ADMIT DATE: [...] chloride 0.9 % 10 mL Intravenous Q12H [facility] sulfamethoxazole-trimethoprim 1 tablet Oral Daily tiotropium [...] PHOS No components found with this basename: LABALBU, Recent Labs Lab 03/14/14 0440 03/13/14 0630 [...] Note by Jesus Latham PT at 03/13/14 7089 Author: Jesus Latham, PT Service: (none) Author Type: Physical Therapist Filed: 03/13/14 0472 Date of Service: 03/13/14 4845 Status: Signed Pharmacy Resident: Jesus Latham PT (Physical Therapist) 03/13/14 5861 PT Last Visit PT Received On 03/13/14 [...] Rozina Jara ARNP - 03/13/2014 3:46 PM PDTFormatting of this note might be different from the o riginal. Progress Notes by Rozina Davis RN at 03/13/14 1546 Author: Rozina Davis RN Service: (none) Author Type: Registered Nurse Filed: 03/13/14 1548 Date of Service: 03/13/141545 Status: Signed Pharmacy Resident: Rozina Davis RN (Registered Nurse) After speaking with Ariella pt's primary RN, it was noted that the patient only needs a new IV for his second IV access. Peripheral IV placed without ultrasound. GINGER Krishnan notified se cond peripheral IV now in place. Order for Midline cancelled. onversio n Transaction, Provider Unknown - 03/13/2014 12:53 PM PDTFormatting of this note might be di fferent from the original. Therapy Progress Note by ZAYRA Acosta at 03/13/14 1253 Author: ZAYRA Acosta Service: (none) Author Type: Occupational Therapist Filed: 03/13/14 1410 Date of Service: 03/13/14 1253 Status: Signed Pharmacy Resident: ZAYRA Acosta (Occupational Therapist) 03/13/14 1253 Precautions Cardiac Precautions Sternal Home Environment Type [...] for larger walker) Home Equipment Walker front wheeled;Wardrobe Mistress Additional Comments Pt stated hey will leave in catheter for 2 weeks. Prior Function Level of Bishop Independent with functional mobility;Independent with ADLs;Independe nt with IADLs;Driving in community Lives With Spouse ADL Assistance Independent Home ADL's Independent Other Sports Official Making bed;Washing dishes;Taking out trash Employment Retired [...] Shower chair without back;Elastic shoe laces;Sponge long handled;[facility] Education Completed: Education Topic: AE and adaptive [...] Filed: 03/13/14 1025 Date of Service: 03/13/14 1023 Status: Signed Pharmacy Resident: Evelina Plata RN (Registered Nurse) Patient transferred to room 4465. Report given to Ariella MILES. Tele notified. Nil complaint s voiced at time of transfer. Belongings with patient. onver gurpreet Transaction, Provider Unknown - 03/13/2014 9:10 AM PDT Therapy Progress Note by Med Berger PT at 03/13/14909 Author: Med Berger PT Service: (none) Author Type: Physical Therapist Filed: 03/13/141126 Date of Service: 03/13/14909 Status: Signed Pharmacy Resident: Med Berger PT (Physical Therapist) 03/13/14909 PT [...] Progress Notes by Andrei Lindsay PA-C at 03/13/14 075 Author: Andrei Lindsay PA-C Service: Cardiac, Thoracic, and Vascular Surgery Author Type: Physician Mixer Driver - Certified Filed: 03/13/14 3317 Date of Service: 03/13/14750 Status: Attested Pharmacy Resident: Andrei Lindsay PA-C (Physician Mixer Driver - Certified) Cosigner: Timothy Whitaker MD at 03/14/14 1245 Attestation signed by Timothy Whitaker MD at 03/14/14 1245 I have examined Denise Gasca, reviewed the [...] 96% I&O Yesterday: 03/12 700 - 03/13 0659 In: 1070 [P.O.:820] Out: 1023 [Urine:933] Intake/Output Summary (Last 24 hours) at 03/13/14 0751 Last data filed at 03/13/14 0500 Gross per 24 hour Intake 1070 ml Output 1023 ml Net 47 ml 03/12 700 - 03/13 0659 In: 1070 [P.O.:820] Out: 1023 [Urine:933] Physical [...] chloride 0.9 % 10 mL Intravenous Q12H [facility] sulfamethoxazole-trimethoprim 1 tablet Oral Daily tiotropium [...] Progress Notes by Newton Mai RPH at 03/13/14517 Author: Newton Mai RPH Service: (none) Author Type: Pharmacist Filed: 03/13/14517 Date of Service: 03/13/14517 Status: Signed Pharmacy Resident: Newton Mai RPH (Pharmacist) Note ccl 72ml/min meds reviewed pharmacy will follow [facility] 0518 onver gurpreet Transaction, Provider Unknown - 03/12/2014 2:10 PM PDT Therapy Progress Note by Med Berger PT at 03/12/14 1410 Author: Med Berger PT Service: (none) Author Type: Physical Therapist Filed: 03/12/14 1441 Date of Service: 03/12/14 1410 Status: Signed Pharmacy Resident: Med Berger PT (Physical Therapist) 03/12/14 1410 [...] PT had pt sit in wheelchair and TOOL AND DIE MACHINIST whe eled pt back to his room. [...] Larissa Alvarez RN at 03/12/14 1313 Author: Devils Elbow Langevin, RN Service: (none) Author Type: Registered Nurse Filed: 03/12/14 1314 Date of Service: 03/12/14 1313 Status: Signed Pharmacy Resident: Larissa Alvarez RN (Registered Nurse) Visited patient for coumadin education. They have been on coumadin prior to this hospitaliz ation and pcp in [place] manages their dosing. Informed of today's inr. They have no quest ions regarding coumadin at this time. Refused Coumadin Education booklet. onver gurpreet Transaction, Provider Unknown - 03/12/2014 10:08 AM PDT Case Management by ARACELY Espinal at 03/12/14 1008 Author: ARACELY Espinal Service: (none) Author Type: Head Holder Filed: 03/12/14 1010 Date of Service: 03/12/14 1008 Status: Addendum Pharmacy Resident: ARACELY Espinal (Head Holder) Related Notes: Original Note by ARACELY Espinal (Head Holder) filed at 03/12/14 1009 03/12/14 1005 Discharge [...] LORENZANA Patient's insurance:Medicare Coverage concerns: Medication coverage/concerns: [facility] Bedside Delivery: Community resources utilized / needed: Assistance in transportation: Identification of any specific education / training: Barriers to Discharge / Alternative housing needed: Anticipated DCP: Plan home with BRET HUBER onver gurpreet Bernal, Provider Unknown - 03/12/2014 8:30 AM PDT Therapy Progress Note by Med Berger PT at 03/12/14829 Author: Med Berger PT Service: (none) Author Type: Physical Therapist Filed: 03/12/14899 Date of Service: 03/12/14829 Status: Signed Pharmacy Resident: Med Berger PT (Physical Therapist) 03/12/14829 PT [...] returned demo nstration according to instruction given. [id number] was the most difficult for him. Pt [...] Thoracic, and Vascular Surgery Author Type: Physician Mixer Driver - Certified Filed: 03/12/14 1548 Date of Service: 03/12/1451 Status: Attested Addendum Pharmacy Resident: Andrei Lindsay PA-C (Physician Mixer Driver - Certified) Related Notes: Original Note by Andrei Lindsay PA-C (Physician Mixer Driver - Certified) file d at 03/12/14 1536 [...] kg/m2 | SpO2 83% I&O Yesterday: 03/11 0700 - 03/12 0659 In: 2837.3 [P.O.:1794; I.V.:870.3] Out: 852 [Urine:662] Intake/Output Summary (Last 24 hours) at 03/12/14 0551 Last data filed at 03/12/14 0300 Gross per 24 hour Intake 5107.3 ml Output 783 ml Net 4324.3 ml I/O this shift: In: 360 [P.O.:360] Out: 222 [Urine:222] 03/11 0700 - 03/12 0659 In: 2687.3 [P.O.:1644; I.V.:870.3] [...] the original. Therapy Progress Note by Sam Lemon PT at 03/11/14 1440 Author: Sam Lemon PT Service: (none) Author Type: Physical Therapist Filed: 03/11/14 1550 Date of Service: 03/11/141439 Status: Signed Pharmacy Resident: Sam Lemon PT (Physical Therapist) 03/11/14 1440 PT Last [...] Recommended (anticipate none) Prior Function Level of Bishop Independent with functional mobility;Independent with ADLs;Independe nt [...] Patient's ability Pattern Decreased brooks;WFL Assistive Device (MANUAL ARTS THERAPIST on w/c) Balance Balance (Pt. is steady [...] Thoracic, and Vascular Surgery Author Type: Physician Mixer Driver - Certified Filed: 03/11/14 1323 Date of Service: 03/11/14909 Status: Attested Pharmacy Resident: Andrei Lindsay PA-C (Physician Mixer Driver - Certified) Cosigner: Timothy Whitaker MD at [...] provider, Dr. Whitaker. Andrei Lindsay PA-C 03/11/2014 onversjoaquin rosales Transaction, Provider Unknown - 03/10/2014 8:14 PM PDTFormatting of this note might be di fferent from the original. Progress Notes by Vin Amador at 03/10/142013 Author: Vin Amador Service: (none) Author Type: Netsuite Developer Filed: 03/10/142019 Date of Service: 03/10/142013 Status: Signed Pharmacy Resident: Vin Amador () Met with pt's Zamzam and family several times as off-pump call report from [facility] was kyung roaching. Zamzam appears exhausted and and anxious. I normalized her anxieties, providing kandy ssurances, and was with family when off-pump when I received the off-pump call from [facility]. Feng basilia relieved, responding appropriately to messages. I reviewed visitation guidelines and op ened Quiet Room 2 for to be nearby gabbie. Sons Andrei and Chad, and pt's francisca Cardenas will return home in morning. Some friends are coming in the morning to provide additional support for Zamzam. Family voiced repeated thx for gas operations analyst's availability and support throughout th is long day. CRISTIAN Marrero onver gurpreet Transaction, Provider Unknown - 03/10/2014 8:13 PM PDT Progress Notes by Vin Amador at 03/10/142012 Author: Vin Amador Service: (none) Author Type: Netsuite Developer Filed: 03/10/142012 Date of Service: 03/10/142012 Status: Signed Pharmacy Resident: Vin Amador () Delivered on-pump report to Zamzam and gricelda per protocols. CRISTIAN Marrero onver gurpreet Transaction, Provider Unknown - 03/10/2014 8:09 PM PDT Progress Notes by Vin Amador at 03/10/142008 Author: Vin Amador Service: (none) Author Type: Netsuite Developer Filed: 03/10/142010 Date of Service: 03/10/142008 Status: Signed Pharmacy Resident: Vin Amador () Received p/c from [facility], [...] 03/10/2014 8:05 PM PDT Progress Notes by iVn mAador at 03/10/142004 Author: Vin Amador Service: (none) Author Type: Filed: 03/10/142007 Date of Service: 03/10/142004 Status: Signed Pharmacy Resident: Vin Stauffer) Per open heart pt protocols, I met with pt's family to assess ongoing needs and orient [facility] service's support during surgery. Zamzam, sons Andrei and Chad, and a broth er present for orientation. Family are active in their [place] community and are well supporte d by their patch sander/friend today. I provided flow card to family and will update them per prot ocols throughout the afternoon. 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 Denies any Pain, right groi n with soft, with safeguard intact, scant amount old drainage on dressing. Right pedal puls e 2+, VSS, IVF infusing. onver gurpreet Transaction, Provider Unknown - 03/08/2014 2:58 PM PDT Case Management by ARACELY Walker at 03/08/14 2908 Author: ARACELY Walker Service: (none) Author Type: Head Holder Filed: 03/08/14 1502 Date of Service: 03/08/14 1458 Status: Addendum Pharmacy Resident: ARACELY Walker (Head Holder) Related Notes: Original Note by ARACELY Walker (Head Holder) filed at 03/08/14 1501 03/08/14 1400 Discharge [...] Plan Yes Anticipated Disposition Facility Type Home TRANSIT SURVEY WORKER met with Pt and discussed discharge planning, planning to go home when medically ready. Pt is a 78 y.o. male here with Aortic Valve Replacement, having CHF, prog ressive Aortic Stenosis. Pt states he drives, is active and independent with all ADLs and IADLs, states outpatient o ncology at [facility] has a regimented program which follows his Coumad in levels since 2005. Patient's PCP is: MED Roe Patient's insurance: Medicare / [facility] Coverage concerns: None Medication coverage/concerns: None Community resources utilized / needed: None Assistance in transportation: Pt family Identification of any specific education / training: Pending clinical course, unknown Barriers to Discharge / Alternative housing needed: Pending clinical course, unknown Anticipated DCP: Home - pending clinical course. CACHORRO REID, Corporate Investigator [phone] cell hen, Erika Lee MD - 03/08/2014 2:36 PM PDTFormatting of this note might be different fro m the original. Progress Notes by Erika Simental DO at 03/08/14 1436 Author: Erika Simental DO Service: Cardiology Author Type: Physician Filed: 03/08/14 2559 Date of Service: 03/08/141435 Status: Signed Pharmacy Resident: Erika Simental DO (Physician) [facility] Service: Cardiology Progress Note Hospital Day: LOS: [...] units/mL in Dextrose 5% 1,800 Units/hr (03/08/14 0618) PRN Medications acetaminophen, acetaminophen, albuterol, heparin (porcine), [...] mmHg (03/08 1110) Heart Rate: [60-63] 60 (03/08 1110) Resp: [18-20] 18 (03/08 1110) SpO2: [93 [...] 3: Pacemaker/ICD: yes, Guidant Insignia 1291, SN: [id number] Code Status: Full Code ERIKA SIMENTAL DO 03/08/2014 onversio n Transaction, Provider Unknown - 03/07/2014 5:35 PM PDTFormatting of this note might be di fferent from the original. Progress Notes by Jessica Lieberman RPH at 03/07/141734 Author: Jessica Lieberman RPH Service: (none) Author Type: Pharmacist Filed: 03/07/141734 Date of Service: 03/07/141734 Status: Signed Pharmacy Resident: Jessica Lieberman RPH (Pharmacist) Renal Dosing Monitoring: Denise Gasca 78 y.o. male Pharmacy dosing for renal function per Dr. Simental No current SCr Plan per protocol: No renally adjusted medications currently ordered. Pharmacy will continue monitoring patient for appropriate dosing per renal function. 03/07/2014 5:35 PM Pharmacist: Jessica Lieberman docume nted in this encounter H&P Notes Erika Simental MD - 03/07/2014 7:58 PM PDTFormatting of this note might be differ ent from the original. H&P by Erika Simental DO at 03/07/141957 Author: Erika Simental DO Service: Cardiology Author Type: Physician Filed: 03/07/142018 Date of Service: 03/07/141957 Status: Signed Pharmacy Resident: Erika Simental DO (Physician) [facility] Service: Cardiology Initial History and Physical Denise Gasca 1935 Identification: Denise Gasca 78 y.o. male, with progressive SOB. CHIEF COMPLAINT: 78yo WM, with progressive exertional shortness of breath and fatigue. No w taking 80 mg of Lasix twice daily, he continues to have some edema and shortness of breath . No chest pain per se. He denies any lightheadedness, near syncope, or syncope. Unaware of any new visual disturbances, dysarthria, dysphasia, lateralizing signs or symptoms. 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 Was found to have coronary disease, undergoing anshu oplasty and stenting 2 in 2004. He later went on to develop atrial fibrillation, had A. f ib ablation 2, was unable to control her heart rate despite medications, ultimately had a permanent pacemaker implanted followed by AV shereen ablation. He has been followed on a regu lar basis, was doing relatively well, until a few months ago when he started to deteriorate, increasing exertional shortness of breath and fatigue. Repeat echocardiogram shows that he has had progressive valvular heart disease, now involving the aortic valve. The left ventr icle continues to enlarge, but most disturbingly, his LVEF has now reduced significantly. Past Medical History Diagnosis Date Hypertension Hyperlipidemia COPD (chronic obstructive pulmonary disease) Diabetes mellitus type II GERD (gastroesophageal reflux disease) Atrial fibrillation Past Surgical History Procedure Laterality Date Coronary artery bypass graft 01/09/1996 Pacemaker insertion Tonsillectomy Colonoscopy Hernia repair INGUINAL HERNIA X 4 Cardiac surgery Unlisted procedure arthroscopy total Rt. hip Hardware removal pacemaker,titanium alloy mitral valve ,metal in Rt. hip Cataract extraction Rt. eye Eye surgery Rt. eye retina re-attachment Spine surgery L4 & 5 x 2 Cardiac catheterization Rotator cuff repair Lt. shoulder Allergies Allergen Reactions Metoprolol Swelling Lips swell Prescriptions prior to admission Medication Sig Dispense Refill albuterol (VENTOLIN HFA) 108 (90 BASE) MCG/ACT inhaler Inhale 2 puffs into the lungs ev flip 4 (four) hours as needed. aspirin 81 MG EC tablet Take 81 mg by mouth daily with breakfast. carvedilol (COREG) 3.125 MG tablet Take 1.56 mg by mouth 2 (two) times daily with meals . Chromium-Cinnamon 200-1000 MCG-MG CAPS Take 1,000 mg by mouth 2 (two) times daily. fluticasone-salmeterol (ADVAIR) 250-50 MCG/DOSE Inhale 1 puff into the lungs 2 (two) ti mes daily. furosemide (LASIX) 80 MG tablet Take 80 mg by mouth 2 (two) times daily. Itcwhucdqxp-Esgzdccxn-Luh C-Mn (GLUCOSAMINE 1500 COMPLEX PO) Take 4,500 mg by mouth priya ly. levothyroxine (SYNTHROID, LEVOTHROID) 150 MCG tablet Take 150 mcg by mouth every mornin g before breakfast. lisinopril (PRINIVIL,ZESTRIL) 2.5 MG tablet Take 2.5 mg by mouth daily. metFORMIN (GLUCOPHAGE) 500 MG tablet Take 500 mg by mouth 2 (two) times daily with meal s. Multiple Vitamins-Minerals (EQL CENTRAL-ROSAMARIA SELECT PO) Take [...] mouth every morning before breakfast. potassium chloride (KLOR-CON) 20 MEQ packet Take 20 mEq by mouth 2 (two) times daily as needed. pravastatin (PRAVACHOL) 80 MG tablet Take 80 mg by mouth nightly. tiotropium (SPIRIVA) 18 MCG inhalation capsule Inhale 18 mcg into the lungs daily. warfarin (COUMADIN) 10 MG tablet Take 10 mg by mouth daily. Respiratory Therapy Supplies (NEBULIZER COMPRESSOR) KIT by Does not apply route as need ed. Family History Problem Relation Age of Onset Heart disease Mother Heart disease Father History Smoking status Former Smoker -- 49 years Types: Cigarettes Smokeless tobacco Never Used History Alcohol Use No History Drug Use No Patient currently lives with family in their own home Scheduled Medications ascorbic acid 500 mg Oral Daily aspirin 81 mg Oral Daily with breakfast [START ON 03/08/2014] carvedilol 1.56 mg Oral BID fluticasone-salmeterol 1 puff Inhalation 2 times daily furosemide 80 mg Oral BID-Diuretics glucosamine-chondroitin 1 capsule Oral TID [START ON 03/08/2014] levothyroxine 150 mcg Oral QAM AC lisinopril 2.5 mg Oral Daily metFORMIN 500 mg Oral BID [START ON 03/08/2014] multivitamins pediatric 1 tablet Oral Daily with breakfast nitrofurantoin 50 mg Oral Nightly [START ON 03/08/2014] omeprazole 20 mg Oral QAM AC potassium chloride 20 mEq Oral BID pravastatin 80 mg Oral Nightly sodium chloride (PF) 10 mL Intravenous Q8H tiotropium 18 mcg Inhalation Daily Continuous Infusions PRN Medications acetaminophen, acetaminophen, albuterol, nitroGLYCERIN, ondansetron, ondansetron, polyethyl ana glycol, zolpidem REVIEW OF SYSTEMS CONSTITUTIONAL: negative for fevers, chills, weight loss and weight gain. HEENT: negative for hearing loss, earaches, voice change and headaches RESPIRATORY: SOB and fatigue, no cough, sputum or hemoptyosis. CARDIOVASCULAR: See chief complaint GASTROINTESTINAL: negative for nausea, diarrhea, constipation, hematemesis, hemtochezia an d melena. GENITOURINARY: negative for dysuria and hematuria INTEGUMENT/BREAST: negative for rash MUSCULOSKELETAL: negative for myalgias NEUROLOGICAL: negative for headaches, numbness, tingling BEHAVIOR/PSYCH: Denies psychiatric history Endocrine: positive for DM. All other systems reviewed and were negative. PHYSICAL EXAM Vital Signs: BP 128/60 | Pulse 60 | Temp(Src) 98.4 F (36.9 C) (Oral) | Resp 18 | Ht 1.854 m (6' 1") | Wt 113.4 kg (250 lb) | BMI 32.99 kg/m2 | SpO2 94% General Appearance: Alert, cooperative, no distress, appears stated age Head: Normocephalic, without obvious abnormality, atraumatic Eyes: PERRL, conjunctiva/corneas clear, EOM's intact, Ears: TM's normal Nose: No drainage Throat: Lips, mucosa, and tongue normal; teeth and gums normal Neck: Supple, symmetrical, trachea midline, no adenopathy; thyroid: No enlargement/tenderness/nodules Back: Symmetric, no curvature, ROM normal, no CVA tenderness Lungs: Crackles in bases only, respirations unlabored Chest wall: No tenderness or deformity, sternotomy healed, no crepitus, pacemaker WILI, s table Cardivascular: No JVD. Carotid upstrokes brisk and without bruits. No abdominal bruits. No femoral bruits. Peripheral pulses normal. PMI localized. Auscultated in the sitting and s upine position reveals regular rate and rhythm, S1 and S2 normal, 3/6 systolic murmur Abdomen: Soft, non-tender, bowel sounds active all four quadrants, no masses, no hepatomegaly, splenomegaly, palpable masses. Extremities: Extremities 1-2+ PTE, darío Skin: Skin color, texture, turgor normal, no rashes or lesions Lymph nodes: Cervical, supraclavicular, and axillary nodes normal Muscular: Gait normal and unassisted. Strength normal. Neurologic: Normal strength, sensation and reflexes throughout DATA CBC: Lab Results Component Value Date WBC 8.0 03/07/2014 RBC 3.27* 03/07/2014 HGB 10.4* 03/07/2014 HCT 32.2* 03/07/2014 MCV 98.6 03/07/2014 MCH 31.9 03/07/2014 MCHC 32.4 03/07/2014 RDW 56.9* 03/07/2014 PLT 168 03/07/2014 MPV 8.7 03/07/2014 DIFFTYPE AUTOMATED 03/07/2014 CMP: No results found for this basename: NA, K, CL, CO2, ANIONGAP, GLUF, BUN, CREATININE, BCR, C A, PROT, ALB, GLOB, AGRATIO, BILITOT, ALP, AST, ALT, EGFR CPK: No results found for this basename: CKTOTAL Troponin I: No results found for this basename: TROPONINI TSH: No results found for this basename: TSH, TSHNEO, TSHREFLEX No results found for this basename: bnp DATA: Hx CABG: no, but MVR 1995, CarboMedics 31 mm valve, RHD/MS. Hx PCI/stent: yes, Ramus 2.5*12mm Taxus SHIRLEY, LCx 3.5*16mm Taxus SHIRLEY, 2004 Pacemaker/ICD: yes, Guidant Insignia 1291, SN: [id number] Last Cath, 07/21/2005: L. main OK, LAD OK, Ramus stent widely patent, LCx stent widely paten t, OM1 has 40% lesion, RCA mild diffuse diease. Last Echo, 02/28/20145: LVEDd 70mm, LVEF 30-35%, severe LAE, moderate ELTON, RV moderately e nlarged, mechanical MVR, stable, mild MR, severe calcific (calc JULIAN 0.8-0.9cm2, peak/mean gradient 88/453mmHg, moderate TR, est systolic PAP 60-65, pacing catheter in RV. Last stress test, Adenosine Cardiolite, 07/07/2010: fixed apical defect, no reversible ischem ia, LV enlarged, LVEF 46% Last ECG, 02/27/2014: VVI-pacing, frequent PVC's. PROBLEM LIST Active Problems: * No active hospital problems. * ASSESSMENT & PLAN 1. Valvular heart disease. History of rheumatic valvular heart disease (MS), mitral valve replacement 1995 (CarboMedics 31 mm valve). Now progressive aortic stenosis, severe (Echo r eport above). Having congestive heart failure, LV systolic dysfunction. After long discuss ion with the patient, he is open to the idea of aortic valve replacement. We are admitting him today, to place him on IV heparin, as we will hold his warfarin. When his INR is below 2, will arrange for bilateral heart catheterization, coronary angiography. We'll consult CT surgery for possible valve replacement after coronary angiogram has been completed. 2. Known coronary disease, previous history of angioplasty and stenting (se above). 3. Chronic atrial fibrillation (anticoagulated because of prosthetic mitral valve), history of AV shereen ablation, permanent pacemaker (see above). Code Status: Full Code Primary Care Physician: MED LORENZANA Please call if there are any additional questions. ERIKA SIMENTAL, 03/07/2014 documente d in this encounter Consult Notes Timothy Whitaker MD - 03/09/2014 10:32 AM PDTFormatting of this note might be different fro m the original. Consult* by Timothy Whitaker MD at 03/09/14 1032 Author: Timothy Whitaker MD Service: (none) Author Type: Physician Filed: 03/14/14 1242 Date of Service: 03/09/14 1032 Status: Signed Pharmacy Resident: Timothy Whitaker MD (Physician) [facility] Service: Cardiothoracic Surgery Initial Consult Note Date of Admission: 03/07/2014 Reason for Consultation: Consideration for AVR Requesting Physician: Dr Simental, Cardiology History Obtained From: patient CHIEF COMPLAINT: Worsening shortness of breath and fatigue HISTORY OF PRESENT ILLNESS The patient is a 78 y.o. male with significant past medical history of hyperlipidemia, hype rtension, COPD, atrial fibrillation, status post ablation, mitral stenosis status post silvia l valve replacement, coronary artery disease, status post PCI who presents with worsening sh ortness of breath and fatigue was investigated and found to have severe aortic stenosis. Co ronary angiogram showed patent stents and no evidence of occlusive coronary artery disease. REVIEW OF SYSTEMS Review of Systems Constitutional: Positive for fatigue. Negative for fever, chills and activity change. HENT: Negative for hearing loss, nosebleeds, sore throat, neck stiffness, voice change and tinnitus. Eyes: Negative for pain, discharge, redness and visual disturbance. Respiratory: Positive for chest tightness and shortness of breath. Negative for cough and w heezing. Cardiovascular: Negative for chest pain, palpitations and leg swelling. Gastrointestinal: Negative for nausea, abdominal pain, diarrhea, constipation, blood in sto ol, abdominal distention and anal bleeding. Genitourinary: Negative for dysuria, urgency, frequency and hematuria. Musculoskeletal: Negative for back pain and arthralgias. Skin: Negative for color change, pallor and wound. Neurological: Negative for dizziness, tremors, seizures, syncope, facial asymmetry, speech difficulty, weakness and light-headedness. Hematological: Negative for adenopathy. Does not bruise/bleed easily. Psychiatric/Behavioral: Negative for suicidal ideas, behavioral problems, confusion, sleep disturbance and agitation. Past Medical History Diagnosis Date Hypertension Hyperlipidemia COPD (chronic obstructive pulmonary disease) Diabetes mellitus type II GERD (gastroesophageal reflux disease) Atrial fibrillation Past Surgical History Procedure Laterality Date Coronary artery bypass graft 01/09/1996 Pacemaker insertion Tonsillectomy Colonoscopy Hernia repair INGUINAL HERNIA X 4 Cardiac surgery Unlisted procedure arthroscopy total Rt. hip Hardware removal pacemaker,titanium alloy mitral valve ,metal in Rt. hip Cataract extraction Rt. eye Eye surgery Rt. eye retina re-attachment Spine surgery L4 & 5 x 2 Cardiac catheterization Rotator cuff repair Lt. shoulder Allergies Allergen Reactions Metoprolol Swelling Lips swell Prescriptions prior to admission Medication Sig Dispense Refill albuterol (VENTOLIN HFA) 108 (90 BASE) MCG/ACT inhaler Inhale 2 puffs into the lungs ev flip 4 (four) hours as needed. aspirin 81 MG EC tablet Take 81 mg by mouth daily with breakfast. carvedilol (COREG) 3.125 MG tablet Take 1.56 mg by mouth 2 (two) times daily with meals . Chromium-Cinnamon 200-1000 MCG-MG CAPS Take 1,000 mg by mouth 2 (two) times daily. fluticasone-salmeterol (ADVAIR) 250-50 MCG/DOSE Inhale 1 puff into the lungs 2 (two) ti mes daily. furosemide (LASIX) 80 MG tablet Take 80 mg by mouth 2 (two) times daily. Ikmmcrvvvvt-Ncjshljoa-Xtf C-Mn (GLUCOSAMINE 1500 COMPLEX PO) Take 4,500 mg by mouth priya ly. levothyroxine (SYNTHROID, LEVOTHROID) 150 MCG tablet Take 150 mcg by mouth every mornin g before breakfast. lisinopril (PRINIVIL,ZESTRIL) 2.5 MG tablet Take 2.5 mg by mouth daily. metFORMIN (GLUCOPHAGE) 500 MG tablet Take 500 mg by mouth 2 (two) times daily with meal s. Multiple Vitamins-Minerals (EQL CENTRAL-ROSAMARIA SELECT PO) Take [...] mouth every morning before breakfast. potassium chloride (KLOR-CON) 20 MEQ packet Take 20 mEq by mouth 2 (two) times daily as needed. pravastatin (PRAVACHOL) 80 MG tablet Take 80 mg by mouth nightly. tiotropium (SPIRIVA) 18 MCG inhalation capsule Inhale 18 mcg into the lungs daily. warfarin (COUMADIN) 10 MG tablet Take 10 mg by mouth daily. Respiratory Therapy Supplies (NEBULIZER COMPRESSOR) KIT by Does not apply route as need ed. Scheduled Medications ascorbic acid 500 mg Oral Daily aspirin 81 mg Oral Daily with breakfast carvedilol 1.56 mg Oral BID WC fluticasone-salmeterol 1 puff Inhalation 2 times daily furosemide 80 mg Oral BID AC glucosamine-chondroitin 1 capsule Oral TID levothyroxine 150 mcg Oral QAM AC lisinopril 2.5 mg Oral Daily multivitamins pediatric 1 tablet Oral Daily with breakfast nitrofurantoin 50 mg Oral Nightly omeprazole 20 mg Oral QAM AC potassium chloride 20 mEq Oral BID WC pravastatin 80 mg Oral Nightly sodium chloride (PF) 10 mL Intravenous Q8H tiotropium 18 mcg Inhalation Daily Continuous Infusions heparin 50 units/mL in Dextrose 5% Stopped (03/09/14 0238) sodium chloride (IV) 75 mL/hr at 03/09/14 0045 PRN Medications acetaminophen, acetaminophen, albuterol, heparin (porcine), heparin (porcine), nitroGLYCERI N, ondansetron, ondansetron, polyethylene glycol, zolpidem Family History Problem Relation Age of Onset Heart disease Mother Heart disease Father History Social History Marital Status: Spouse Name: N/A Number of Children: N/A Years of Education: N/A Occupational History Not on file. Social History Main Topics Smoking status: Former Smoker -- 49 years Types: Cigarettes Smokeless tobacco: Never Used Alcohol Use: No Drug Use: No Sexually Active: Not on file Other Topics Concern Not on file Social History Narrative History Smoking status Former Smoker -- 49 years Types: Cigarettes Smokeless tobacco Never Used History Alcohol Use No History Drug Use No PHYSICAL EXAM Vital Signs: BP 112/58 | Pulse 60 | Temp(Src) 97.4 F (36.3 C) (Oral) | Resp 18 | Ht 1.854 m (6' 1") | Wt 110 kg (242 lb 8.1 oz) | BMI 32 kg/m2 | SpO2 93% Temp: [97.3 F (36.3 C)-98.2 F (36.8 C)] 97.4 F (36.3 C) (03/09 839) BP: (107-151)/(54-64) 112/58 mmHg (03/09 839) Heart Rate: [60] 60 (03/09 839) Resp: [18] 18 (03/09 839) SpO2: [92 %-97 %] 93 % (03/09 839) Weight: [110 kg (242 lb 8.1 oz)] 110 kg (242 lb 8.1 oz) (03/09 319) Physical Exam Constitutional: He is oriented to person, place, and time. Vital signs are normal. He appea rs well-developed and well-nourished. HENT: Head: Normocephalic and atraumatic. Eyes: Conjunctivae and lids are normal. Neck: Trachea normal and normal range of motion. Neck supple. No JVD present. Cardiovascular: Normal rate and regular rhythm. Murmur heard. Ejection systolic murmur best heard in the aortic region radiating to both carotid Normal prosthetic mitral valve sounds Pulmonary/Chest: Effort normal and breath sounds normal. Abdominal: Soft. Musculoskeletal: He exhibits no edema. Neurological: He is alert and oriented to person, place, and time. No cranial nerve deficit . Skin: Skin is warm. No cyanosis. DATA CBC: Lab Results Component Value Date [...] 03/07/2014 ALT 15 03/07/2014 EGFR 58* 03/07/2014 PROBLEM LIST Active Problems: * No active hospital problems. * ASSESSMENT & PLAN 78-year-old gentleman with the atrial fibrillation, status post ablation, rheumatic mitral valve disease, status post mitral valve replacement with size 31 CarboMedics valve about 20 years ago. Patient presents with worsening shortness of breath echocardiogram shows severe aortic stenosis and coronary angiogram showed nonloculated carotid disease with patent stent . Patient will benefit from redo sternotomy and aortic valve replacement. I had a long grace t with the patient, explained to him the echo and angiogram finding and need for aortic valv e replacement. I discussed with him procedure, risk and benefit. I have discussed with him the pros and cons of tissue versus mechanical valve since the patient already has a mechani magaly valve and now mitral position we have decided to proceed with our second mechanical valv e in the aortic position. AVR with mechanical prosthesis tomorrow. Code Status: Full Code Primary Care Physician: MED LORENZANA Thank you for allowing me to participate in the care of this patient. TIMOTHY WHITAKER MD 03/09/2014 documente d in this encounter Miscellaneous Notes Plan of Care - Conversion Transaction, Provider Unknown - 03/11/2014 12:59 AM PDT Plan of Care by Ruth Aleman RN at 03/11/1458 Author: Ruth Aleman RN Service: (none) Author Type: Registered Nurse Filed: 03/11/14 010 Date of Service: 03/11/1458 Status: Signed Pharmacy Resident: Ruth Aleman RN (Registered Nurse) Daily care needs are met Progressing Patient's pain/discomfort is manageable Progressing Demonstrates ability to cope with hospitalization/illness Progressing Patient will be injury free during hospitalization Progressing Pt returned from OR at 2031, extubated at 2305, placed on Bipap to sleep, pt wears Bipap at night at home, using own mask . p Not e - Timothy Whitaker MD - 03/10/2014 8:26 PM PDT Op Note signed by Timothy Whitaker MD at 03/12/14 9932 Author: Timothy Whitaker MD Service: (none) Author Type: Physician Filed: 03/12/14 0784 Date of Service: 03/10/142025 Status: Signed Pharmacy Resident: Timothy Whitaker MD (Physician) DENISE GASCA Date of : 1935 PREOPERATIVE DIAGNOSIS Aortic stenosis. POSTOPERATIVE DIAGNOSIS Aortic stenosis. PROCEDURE 1. Redo sternotomy. 2. Aortic valve replacement (23 On-X valve). SURGEON Timothy Whitaker MD EP TECH BATOOL [place] ANESTHESIOLOGIST Italo Hawkins MD ANESTHESIA General endotracheal. ESTIMATED BLOOD LOSS 200 mL. INDICATIONS Mr. Gasca is a 78-year-old gentleman who is status post mitral valve replacement [...] AVR was also performed with mechanical valve. FINDINGS 1. Osteoporotic sternum. 2. Dense intrapericardial adhesions. 3. Heavily calcified tricuspid aortic valve with calcification extending onto the aortic an nulus. 4. Following decalcification of the annulus, sized to 23 On-X valve. 5. HELIO at the end of the case did not show any evidence of perivalvular leak. DESCRIPTION OF PROCEDURE Mr. Gasca was identified in the preoperative holding area, brought to the operating room and placed supine on the operating table. After induction of general endotracheal anesthesi a, Wittenberg-Christiana catheter, Velazquez catheter, radial artery line, and antibiotics were placed. The patient anterior torso and both lower extremities were prepped and draped in the standard parra rgical fashion. Median sternotomy was performed using oscillating saw. The posterior table o f the sternum was dissected off the mediastinal structures. A Refugioochietto retractor was plac ed. Next, further intrapericardial dissection was performed and the ascending aorta and righ t atrium were freed of all adhesions as explained above, dissecting the heart. Next, the pat ient was heparinized and cardiopulmonary bypass was instituted using the ascending aorta and dual-stage cannula in the right atrium. Valve was placed in the left atrium via the right s uperior pulmonary vein. The patient was cooled to 30 degrees centigrade. Crossclamp was appl ied. Heart was arrested with 1.5 L antegrade and retrograde cold blood cardioplegia. Cardiop legia was placed at intervals of 10 minutes throughout the duration of the crossclamp. A tra nsverse aortotomy was performed. This was extended in a hockey stick fashion onto the noncor onary sinus. Three pledgeted 4-0 Prolene sutures were placed in the superior inferior lip of the aortotomy. The aortic valve was inspected with the above-mentioned findings. The aortic cusp was excised and careful decannulation of the aortic annulus was performed using tanneru tanya. Next, the area was irrigated with 1 L of cold saline. The annulus was sized to a 23 On-X valve. Next, circumferential 3-0 Tevdek sutures were placed in the aortic annulus. A size 23 On-X valve was then brought onto the surgical field and sutures were then sequentially pass ed through the sewing ring. The valve was lowered down onto the annulus and after confirming proper seating, sutures were tied. Rewarming was commenced at this stage. The aortotomy was closed in 2 layers using running 4-0 Prolene suture. Careful deaeration was performed. The crossclamp was released. Two active atrial wires and 1 active ventricular wire were placed. A #24-Nigerian chest tube was placed in the mediastinum and 24 Sean was placed in the right p leural space. When the patient was at temperature, deairing maneuver was performed and the p atient weaned off cardiopulmonary bypass with minimal inotropic support. Heparin was reverse d with protamine. Decannulation was uneventful. After confirming hemostasis, chest was close d in layers using stainless steel wire in the sternum, #1 Vicryl for the fascia, 2-0 Vicryl for the subcutaneous tissue and 4-0 Vicryl for the skin. The patient was transferred to the intensive care unit intubated and in stable condition. P/ P/gf/[id number] TIMOTHY WHITAKER MD p Note - Timothy Whitaker MD - 03/10/2014 8:21 PM PDTFormatting of this note might be different fro m the original. Brief Op Note by Timothy Whitaker MD at 03/10/142020 Author: Timothy Whitaker MD Service: (none) Author Type: Physician Filed: 03/10/142021 Date of Service: 03/10/142020 Status: Signed Pharmacy Resident: Timothy Whitaker MD (Physician) [facility] Service: Cardiothoracic Surgery Brief Op Note Pre-operative Diagnosis: Aortic Stenosis Post-operative Diagnosis: Same Procedure(s): Redo Sternotomy AVR (23 On-X) Surgeon: TIMOTHY WHITAKER MD Mixer Driver(s): Joahnny Desai RN FA Anesthesia: General endotrachial anesthesia Estimated Blood Loss: 200 ml Other: Not applicable Indications: See pre-operative history and physical. Findings: See dictated notes Complications: none Condition: Stable See dictated operative report for full details. TIMOTHY WHITAKER MD 03/10/2014 p Note - Terell Beltran MD - 03/10/2014 3:54 PM PDT Op Note signed by Terell Beltran MD at 03/14/141599 Author: Terell Beltran MD Service: (none) Author Type: Physician Filed: 03/14/141599 Date of Service: 03/10/14 3368 Status: Signed Pharmacy Resident: Terell Beltran MD (Physician) DENISE GASCA Date of : 1935 REASON FOR CONSULTATION Multiple failed attempts at catheterization. Mr. Gasca, who was under general anesthesia and was scheduled for a procedure by Dr. Grace wilkinson, had Velazquez catheter attempts performed, which were unsuccessful. I reviewed history fro m the patient's chart and learned that he had prior history of catheterizations but no surgi magaly procedure performed on the prostate. DESCRIPTION OF PROCEDURE The patient was sterilely prepped and draped and I introduced a flexible cystoscope through the patient's external urinary meatus under a generous amount of lubrication without proble m. As I reached the bulbar urethra, I noted multiple false passages due to several attempts made at catheterization previously. I was able to find the urethral mucosa leading into the bladder. I advanced the 0.035 angle-tipped Glidewire through this and was successful in ente ring the bladder. This wire was replaced with superstiff 0.038 wire. As I withdrew the cysto scope and converted a 16-Nigerian Velazquez catheter into Councill tip and was able to slide the c atheter just barely enough to get into the bladder. The patient's urethra showed significant and stiff stricture approximately 1.5 to 2 cm long. Once the catheter went in, it started d raining clear yellow urine. The balloon was inflated. At this point, the case was handed ove r to Dr. Whitaker for further surgical management. P/ P/gf/[id number] TERELL BELTRAN MD lan of Care - Conver gurpreet Transaction, Provider Unknown - 03/07/2014 11:06 PM PDT Plan of Care by Denise Quintanilla RN at 03/07/142305 Author: Denise Quintanilla RN Service: (none) Author Type: Registered Nurse Filed: 03/07/142305 Date of Service: 03/07/142305 Status: Signed Pharmacy Resident: Denise Quintanilla RN (Registered Nurse) Problem: Pain Goal: Patient s pain/discomfort is manageable Assess and monitor patient s pain using appropriate pain scale. Collaborate with interdis ciplinary team and initiate plan and interventions as ordered. Re-assess patient s pain le beth approximately 1-2 hours after pain management intervention. Premedicate as needed. Outcome: Progressing Patient denies pain at this time. Will continue to monitor. Denise Quintanilla RN. docume nted in this encounter Plan of Treatment +--------+ [...] | 2019 | Visit | | [address] | | | | | | [place] | | | | | | [address] | | | | | | | [...] + +--------+ + + + | POC ISTAT CG8, | Routin | 03/10/2014 | | Results [...] | | | Fingerstick | performed at [facility] [place] | | | [address];[place], [place] | | | | | | [address] | | | | + + + [...] At | + + + | DENISE BARCLAY CHEST 1 VIEW 03/14/2014 6:26 AM HISTORY: [...] | | | Fingerstick | performed at [facility] [place] | [address] | | | [address];[place], [place] | | | | | | [address] | | | | + + + [...] EXTERNAL | | | | performed at [facility], [address] | | LAB | | | | [address], | | | | | | [place] [address] | | | | + + + + + + | Non- | 2.66 (L)Comment: Testing | 4.20 - 5.70 | EXTERNAL | | | Red Blood | performed at [facility], [address] | M/uL | LAB | | | Cells | [address], | | | | | Counted | [place] [address] | | | | + + + + + + | Hemoglobin | 8.8 (L)Comment: Testing | 13.2 - 17.0 | EXTERNAL | | | | performed at [facility], [address] | g/dL | LAB | | | | [address], | | | | | | [place] [address] | | | | + + + + + + | Hematocrit, | 26.3 (L)Comment: Testing | 39.0 - 50.0 % | EXTERNAL | | | POC | performed at [facility], [address] | | LAB | | | | [address], | | | | | | [place] [address] | | | | + + + + + + | MCV | 98.9Comment: Testing | 80.0 - 100.0 fl | EXTERNAL | | | | performed at [facility], [address] | | LAB | | | | [address], | | | | | | [place] [address] | | | | + + + + + + | MCH | 33.2Comment: Testing | 27.0 - 34.0 pg | EXTERNAL | | | | performed at [facility], [address] | | LAB | | | | [address], | | | | | | [place] [address] | | | | + + + + + + | MCHC | 33.6Comment: Testing | 32.0 - 35.5 | EXTERNAL | | | | performed at [facility], [address] | g/dL | LAB | | | | [address], | | | | | | [place] [address] | | | | + + + + + + | RDW-CV | 57.8 (H)Comment: Testing | 37 - 53 fl | EXTERNAL | | | | performed at [facility], [address] | | LAB | | | | [address], | | | | | | [place] [address] | | | | + + + + + + | Platelet | 126 (L)Comment: Testing | 150 - 400 K/uL | EXTERNAL | | | Count | performed at [facility], [address] | | LAB | | | Plasma | [address], | | | | | | [place] [address] | | | | + + + + + + | MPV | 9.3Comment: Testing | fl | EXTERNAL | | | | performed at [facility], [address] | | LAB | | | | [address], | | | | | | [place] [address] | | | | + + + [...] | | | | | performed at [facility] | | | | | | [address] [facility];[place], [place] | | | | | | [address] | | | | + + + [...] EXTERNAL | | | | performed at [facility], [address] | | LAB | | | | [address], | | | | | | [place] [address] | | | | + + + [...] | | | | [place] [address] | | | | + + + + + + | K | 5.1 (H)Comment: Testing | 3.5 - 4.9 | EXTERNAL | | | | performed at [facility], [address] | mmol/L | LAB | | | | [address], | | | | | | [place] [address] | | | | + + + + + + | Cl | 98 (L)Comment: Testing | 99 - 109 mmol/L | EXTERNAL | | | | performed at [facility], [address] | | LAB | | | | [address], | | | | | | [place] [address] | | | | + + + + + + | CO2 | 27Comment: Testing | 23 - 32 mmol/L | EXTERNAL | | | | performed at [facility], [address] | | LAB | | | | [address], | | | | | | [place] [address] | | | | + + + + + + | Anion Gap | 9Comment: Testing | 5 - 20 mmol/L | EXTERNAL | | | | performed at [facility], [address] | | LAB | | | | [address], | | | | | | [place] [address] | | | | + + + + + + | Glucose, | 101 (H)Comment: Testing | 65 - 99 mg/dL | EXTERNAL | | | Fasting | performed at [facility], [address] | | LAB | | | | [address], | | | | | | [place], [place] [address] | | | | + + + + + + | BUN | 24Comment: Testing | 8 - 25 mg/dL | EXTERNAL | | | | performed at [facility], [address] | | LAB | | | | [address], | | | | | | [place], [place] [address] | | | | + + + + + + | Creatinine | 1.12Comment: Testing | 0.70 - 1.30 | EXTERNAL | | | | performed at [facility], [address] | mg/dL | LAB | | | | [address], | | | | | | [place] [address] | | | | + + + + + + | BUN/Creatin | 21Comment: Testing | | EXTERNAL | | | ine Ratio | performed at [facility], [address] | | LAB | | | | [address], | | | | | | [place] [address] | | | | + + + + + + | Calcium | 8.8Comment: Testing | 8.5 - 10.2 | EXTERNAL | | | | performed at [facility], [address] | mg/dL | LAB | | | | [employer], | | | | | | [place] [address] | | | | + + + [...] | | | | | | at [facility], [address] | | | | | | [employer], | | | | | | [place] [address] | | | | + + + [...] | | | Fingerstick | performed at [facility];[address] | | LAB | | | | [address];[place] | | | | | | [address] | | | | + + + [...] | | | Fingerstick | performed at [facility];[address] | | LAB | | | | [address];[place], [place] | | | | | | [address] | | | | + + + [...] | | | Fingerstick | performed at [facility] | | LAB | | | | [address];[place], [place] | | | | | | [address] | | | | + + + [...] Raudel Aguillon - 01/18/2019 9:23 PM PDT DENISE STONE CHEST 2 VIEW FRONTAL | | AND GUCITGP84/9/2014 8:37 AM HISTORY:Followup tube placement. Recent heart [...] EXTERNAL | | | | performed at [facility];[address] | | LAB | | | | [address];[place] | | | | | | [address] | | | | + + + + + + | Non- | 2.80 (L)Comment: Testing | 4.20 - 5.70 | EXTERNAL | | | Red Blood | performed at [facility];[address] | M/uL | LAB | | | Cells | [address];[place] | | | | | Counted | [address] | | | | + + + + + + | Hemoglobin | 9.1 (L)Comment: Testing | 13.2 - 17.0 | EXTERNAL | | | | performed at [facility];[address] | g/dL | LAB | | | | [address];[place] | | | | | | [address] | | | | + + + + + + | Hematocrit, | 27.3 (L)Comment: Testing | 39.0 - 50.0 % | EXTERNAL | | | POC | performed at [facility];[address] | | LAB | | | | [address];[place] | | | | | | [address] | | | | + + + + + + | MCV | 97.4Comment: Testing | 80.0 - 100.0 fl | EXTERNAL | | | | performed at [facility];[address] | | LAB | | | | [place] [address];[place] | | | | | | [address] | | | | + + + + + + | MCH | 32.6Comment: Testing | 27.0 - 34.0 pg | EXTERNAL | | | | performed at [facility];[address] | | LAB | | | | [address];[place] | | | | | | [address] | | | | + + + + + + | MCHC | 33.4Comment: Testing | 32.0 - 35.5 | EXTERNAL | | | | performed at [facility];[address] | g/dL | LAB | | | | [address];[place] | | | | | | [address] | | | | + + + + + + | RDW-CV | 58.6 (H)Comment: Testing | 37 - 53 fl | EXTERNAL | | | | performed at [facility];[address] | | LAB | | | | [address];[place] | | | | | | [address] | | | | + + + + + + | Platelet | 134 (L)Comment: Testing | 150 - 400 K/uL | EXTERNAL | | | Count | performed at [facility];[address] | | LAB | | | Plasma | [address];[place] | | | | | | [address] | | | | + + + + + + | MPV | 8.3Comment: Testing | fl | EXTERNAL | | | | performed at [facility];[address] | | LAB | | | | [address];[place] | | | | | | [address] | | | | + + + [...] | | | | | performed at [facility] | | | | | | [facility];[place], [place] | | | | | | [address] | | | | + + + [...] EXTERNAL | | | | performed at [facility];[address] | | LAB | | | | [address];[place], [place] | | | | | | [address] | | | | + + + [...] EXTERNAL | | | | performed at [facility];[address] | mmol/L | LAB | | | | [address];[place] | | | | | | [address] | | | | + + + + + + | K | 4.9Comment: Testing | 3.5 - 4.9 | EXTERNAL | | | | performed at [facility];[address] | mmol/L | LAB | | | | [address];[place] | | | | | | [address] | | | | + + + + + + | Cl | 102Comment: Testing | 99 - 109 mmol/L | EXTERNAL | | | | performed at [facility];[address] | | LAB | | | | [address];[place] | | | | | | [address] | | | | + + + + + + | CO2 | 27Comment: Testing | 23 - 32 mmol/L | EXTERNAL | | | | performed at [facility];[address] | | LAB | | | | [address];[place] | | | | | | [address] | | | | + + + + + + | Anion Gap | 10Comment: Testing | 5 - 20 mmol/L | EXTERNAL | | | | performed at [facility];[address] | | LAB | | | | [address];[place] | | | | | | [address] | | | | + + + + + + | Glucose, | 94Comment: Testing | 65 - 99 mg/dL | EXTERNAL | | | Fasting | performed at [facility];[address] | | LAB | | | | [address];[place] | | | | | | [address] | | | | + + + + + + | BUN | 22Comment: Testing | 8 - 25 mg/dL | EXTERNAL | | | | performed at [facility];[address] | | LAB | | | | [address];[place] | | | | | | [address] | | | | + + + + + + | Creatinine | 1.09Comment: Testing | 0.70 - 1.30 | EXTERNAL | | | | performed at [facility];[address] | mg/dL | LAB | | | | [address];[place] | | | | | | [address] | | | | + + + + + + | BUN/Creatin | 20Comment: Testing | | EXTERNAL | | | ine Ratio | performed at [facility];[address] | | LAB | | | | [address];[place] | | | | | | [address] | | | | + + + + + + | Calcium | 8.7Comment: Testing | 8.5 - 10.2 | EXTERNAL | | | | performed at [facility];[address] | mg/dL | LAB | | | | [address];[place] | | | | | | [address] | | | | + + + [...] | | | | | | at [facility];[address] [place] [address] | | | | | | [facility];[place] [address] | | | | + + + [...] | | | Fingerstick | performed at [facility];[address] | | LAB | | | | [address];[place] | | | | | | [address] | | | | + + + [...] | | | Fingerstick | performed at [facility];[address] | | LAB | | | | [address];[place] | | | | | | [address] | | | | + + + [...] | | | Fingerstick | performed at [facility];[address] | | LAB | | | | [address];[place] | | | | | | [address] | | | | + + + [...] | | | Fingerstick | performed at [facility];[address] | | LAB | | | | [address];[place] | | | | | | [address] | | | | + + + [...] | | | Fingerstick | performed at [facility];[address] | | LAB | | | | [address];[place], [place] | | | | | | [address] | | | | + + + [...] - 01/18/2019 9:23 PM PDT DENISE D GENONXR CHEST 1 | | VIEW03/12/2014 5:47 AM [...] | | | | | performed at [facility] | | | | | | [facility];[place], [place] | | | | | | [address] | | | | + + + [...] EXTERNAL | | | | performed at [facility], [address] | | LAB | | | | [address], | | | | | | [place] [address] | | | | + + + + + + | Non- | 2.77 (L)Comment: Testing | 4.20 - 5.70 | EXTERNAL | | | Red Blood | performed at [facility], [address] | M/uL | LAB | | | Cells | [address], | | | | | Counted | [place] [address] | | | | + + + + + + | Hemoglobin | 8.9 (L)Comment: Testing | 13.2 - 17.0 | EXTERNAL | | | | performed at [facility], [address] | g/dL | LAB | | | | [address], | | | | | | [place] [address] | | | | + + + + + + | Hematocrit, | 27.5 (L)Comment: Testing | 39.0 - 50.0 % | EXTERNAL | | | POC | performed at [facility], [address] | | LAB | | | | [address], | | | | | | [place] [address] | | | | + + + + + + | MCV | 99.2Comment: Testing | 80.0 - 100.0 fl | EXTERNAL | | | | performed at [facility], [address] | | LAB | | | | [address], | | | | | | [place] [address] | | | | + + + + + + | MCH | 32.0Comment: Testing | 27.0 - 34.0 pg | EXTERNAL | | | | performed at [facility], [address] | | LAB | | | | [address], | | | | | | [place] [address] | | | | + + + + + + | MCHC | 32.3Comment: Testing | 32.0 - 35.5 | EXTERNAL | | | | performed at [facility], [address] | g/dL | LAB | | | | [address], | | | | | | [place] [address] | | | | + + + + + + | RDW-CV | 56.4 (H)Comment: Testing | 37 - 53 fl | EXTERNAL | | | | performed at [facility], [address] | | LAB | | | | [address], | | | | | | [place] [address] | | | | + + + + + + | Platelet | 111 (L)Comment: Testing | 150 - 400 K/uL | EXTERNAL | | | Count | performed at [facility], [address] | | LAB | | | Plasma | [address], | | | | | | [place] [address] | | | | + + + + + + | MPV | 8.7Comment: Testing | fl | EXTERNAL | | | | performed at [facility], [address] | | LAB | | | | [address], | | | | | | [place] [address] | | | | + + + + + + | Differentia | MANUALComment: Testing | | EXTERNAL | | | l Type | performed at [facility], [address] | | LAB | | | | [address], | | | | | | [place] [address] | | | | + + + + + + | Segmented | 87Comment: Testing | % | EXTERNAL | | | Neutrophils | performed at [facility], [address] | | LAB | | | Manual | [address], | | | | | | [place] [address] | | | | + + + + + + | % Bands | 5Comment: Testing | % | EXTERNAL | | | | performed at [facility], [address] | | LAB | | | | [address], | | | | | | [place] [address] | | | | + + + + + + | Lymphocytes | 3Comment: Testing | % | EXTERNAL | | | Manual | performed at [facility], [address] | | LAB | | | | [address], | | | | | | [place] [address] | | | | + + + + + + | Monocytes | 5Comment: Testing | % | EXTERNAL | | | Manual | performed at [facility], [address] | | LAB | | | | [address], | | | | | | [place] [address] | | | | + + + + + + | Absolute | 13.9 (H)Comment: Testing | 1.9 - 7.4 K/uL | EXTERNAL | | | Neutrophils | performed at [facility], [address] | | LAB | | | | [address], | | | | | | [place] [address] | | | | + + + + + + | Bands | 0.8 (H)Comment: Testing | 0 - 0.2 K/uL | EXTERNAL | | | Manual | performed at [facility], [address] | | LAB | | | [address], | | | | | | [place] [address] | | | | + + + + + + | Absolute | 0.5 (L)Comment: Testing | 1.0 - 3.9 K/uL | EXTERNAL | | | Lymphocytes | performed at [facility], [address] | | LAB | | | | [address], | | | | | | [place] [address] | | | | + + + + + + | Absolute | 0.8Comment: Testing | 0 - 0.8 K/uL | EXTERNAL | | | Monocytes | performed at [facility], [address] | | LAB | | | | [address], | | | | | | [place] [address] | | | | + + + + + + | RBC | 1+Comment: ANISONORMAL | | EXTERNAL | | | Morphology | PLT MORPHTesting | | LAB | | | | performed at [facility], [address] | | | | | [address], | | | | | | [place] [address] | | | | | | | [...] EXTERNAL | | | | performed at [facility], [address] | | LAB | | | | [address], | | | | | | [place] [address] | | | | + + + [...] | performed at [facility], [address] | mmol/L | LAB | | | | [address], | | | | | | [place] [address] | | | | + + + + + + | K | 4.8Comment: Testing | 3.5 - 4.9 | EXTERNAL | | | | performed at [facility], [address] | mmol/L | LAB | | | | [address], | | | | | | [place] [address] | | | | + + + + + + | Cl | 103Comment: Testing | 99 - 109 mmol/L | EXTERNAL | | | | performed at [facility], [address] | | LAB | | | | [address], | | | | | | [place] [address] | | | | + + + + + + | CO2 | 26Comment: Testing | 23 - 32 mmol/L | EXTERNAL | | | | performed at [facility], [address] | | LAB | | | | [address], | | | | | | [place] [address] | | | | + + + + + + | Anion Gap | 8Comment: Testing | 5 - 20 mmol/L | EXTERNAL | | | | performed at [facility], [address] | | LAB | | | | [address], | | | | | | [place] [address] | | | | + + + + + + | Glucose, | 142 (H)Comment: Testing | 65 - 99 mg/dL | EXTERNAL | | | Fasting | performed at [facility], [address] | | LAB | | | | [address], | | | | | | [place] [address] | | | | + + + + + + | BUN | 23Comment: Testing | 8 - 25 mg/dL | EXTERNAL | | | | performed at [facility], [address] | | LAB | | | | [address], | | | | | | [place] [address] | | | | + + + + + + | Creatinine | 1.16Comment: Testing | 0.70 - 1.30 | EXTERNAL | | | | performed at [facility], [address] | mg/dL | LAB | | | | [address], | | | | | | [place] [address] | | | | + + + + + + | BUN/Creatin | 20Comment: Testing | | EXTERNAL | | | ine Ratio | performed at [facility], [address] | | LAB | | | | [address], | | | | | | [place] [address] | | | | + + + + + + | Calcium | 8.8Comment: Testing | 8.5 - 10.2 | EXTERNAL | | | | performed at [facility], [address] | mg/dL | LAB | | | | [facility], | | | | | | [place] [address] | | | | + + + [...] [address] | | | | | | [address], | | | | | | [place] [address] | | | | + + + [...] | | | Fingerstick | performed at [facility];[address] | | LAB | | | | [place] | | | | | | [address] | | | | + + + [...] | | | Fingerstick | performed at [facility];[address] | | LAB | | | | [address];[place], [place] | | | | | | [address] | | | | + + + [...] | | | Fingerstick | performed at [facility];[address] | | LAB | | | | [place] [address];[place] | | | | | | [address] | | | | + + + [...] EXTERNAL | | | | performed at [facility];[address] | mmol/L | LAB | | | | [address];[place], [place] | | | | | | [address] | | | | + + + [...] | | | Fingerstick | performed at [facility];[address] | | LAB | | | | [address];[place] | | | | | | [address] | | | | + + + [...] | | | Fingerstick | performed at [facility];[address] | | LAB | | | | [address];[place], [place] | | | | | | [address] | | | | + + + [...] | | | Fingerstick | performed at [facility];[address] | | LAB | | | | [address];[place], [place] | | | | | | [address] | | | | + + + [...] EXTERNAL | | | | performed at [facility];[address] | mmol/L | LAB | | | | [address];[place], [place] | | | | | | [address] | | | | + + + [...] | | | Fingerstick | performed at [facility];[address] | | LAB | | | | [address];[place] | | | | | | [address] | | | | + + + [...] | | | Fingerstick | performed at [facility];[address] | | LAB | | | | [address];[place], [place] | | | | | | [address] | | | | + + + [...] | | | Fingerstick | performed at [facility];[address] | | LAB | | | | [address];[place] | | | | | | [address] | | | | + + + [...] | | | Fingerstick | performed at [facility];[address] | | LAB | | | | [address];[place], [place] | | | | | | [address] | | | | + + + [...] Pal, Rad Conversion - 01/18/2019 9:23 PM MARY STONE CHEST 1 | | VIEW03/11/2014 5:52 [...] | | | Fingerstick | performed at [facility];[address] | | LAB | | | | [address];[place], [place] | | | | | | [address] | | | | + + + [...] EXTERNAL | | | | performed at [facility], [address] | | LAB | | | | [address], | | | | | | [place] [address] | | | | + + + + + + | Non- | 3.07 (L)Comment: Testing | 4.20 - 5.70 | EXTERNAL | | | Red Blood | performed at [facility], [address] | M/uL | LAB | | | Cells | [address], | | | | | Counted | [place] [address] | | | | + + + + + + | Hemoglobin | 9.9 (L)Comment: Testing | 13.2 - 17.0 | EXTERNAL | | | | performed at [facility], [address] | g/dL | LAB | | | | [address], | | | | | | [place] [address] | | | | + + + + + + | Hematocrit, | 30.2 (L)Comment: Testing | 39.0 - 50.0 % | EXTERNAL | | | POC | performed at [facility], [address] | | LAB | | | | [address], | | | | | | [place] [address] | | | | + + + + + + | MCV | 98.4Comment: Testing | 80.0 - 100.0 fl | EXTERNAL | | | | performed at [facility], [address] | | LAB | | | | [employer], | | | | | | [place] [address] | | | | + + + + + + | MCH | 32.3Comment: Testing | 27.0 - 34.0 pg | EXTERNAL | | | | performed at [facility], [address] | | LAB | | | | [address], | | | | | | [place] [address] | | | | + + + + + + | MCHC | 32.8Comment: Testing | 32.0 - 35.5 | EXTERNAL | | | | performed at [facility], [address] | g/dL | LAB | | | | [address], | | | | | | [place] [address] | | | | + + + + + + | RDW-CV | 58.2 (H)Comment: Testing | 37 - 53 fl | EXTERNAL | | | | performed at [facility], [address] | | LAB | | | | [address], | | | | | | [place] [address] | | | | + + + + + + | Platelet | 135 (L)Comment: Testing | 150 - 400 K/uL | EXTERNAL | | | Count | performed at [facility], [address] | | LAB | | | Plasma | [address], | | | | | | [place], [place] [address] | | | | + + + + + + | MPV | 8.2Comment: Testing | fl | EXTERNAL | | | | performed at [facility], [address] | | LAB | | | | [address], | | | | | | [place] [address] | | | | + + + + + + | Differentia | MANUALComment: Testing | | EXTERNAL | | | l Type | performed at [facility], [address] | | LAB | | | | [address], | | | | | | [place] [address] | | | | + + + + + + | Segmented | 81Comment: Testing | % | EXTERNAL | | | Neutrophils | performed at [facility], [address] | | LAB | | | Manual | [address], | | | | | | [place] [address] | | | | + + + + + + | % Bands | 11Comment: Testing | % | EXTERNAL | | | | performed at [facility], [address] | | LAB | | | | [address], | | | | | | [place] [address] | | | | + + + + + + | % | 1Comment: Testing | % | EXTERNAL | | | Metamyelocy | performed at [facility], [address] | | LAB | | | [address]lor | [address], | | | | | | [place] [address] | | | | + + + + + + | Lymphocytes | 3Comment: Testing | % | EXTERNAL | | | Manual | performed at [facility], [address] | | LAB | | | | [address], | | | | | | [place] [address] | | | | + + + + + + | Monocytes | 4Comment: Testing | % | EXTERNAL | | | Manual | performed at [facility], [address] | | LAB | | | | [address], | | | | | | [place] [address] | | | | + + + + + + | Absolute | 15.8 (H)Comment: Testing | 1.9 - 7.4 K/uL | EXTERNAL | | | Neutrophils | performed at [facility], [address] | | LAB | | | | [address], | | | | | | [place] [address] | | | | + + + + + + | Bands | 2.2 (H)Comment: Testing | 0 - 0.2 K/uL | EXTERNAL | | | Manual | performed at [facility], [address] | | LAB | | | | [address], | | | | | | [place] [address] | | | | + + + + + + | Absolute | 0.2 (H)Comment: Testing | K/uL | EXTERNAL | | | Metamyelocy | performed at [facility], [address] | | LAB | | | [address]lor | [address], | | | | | | [place] [address] | | | | + + + + + + | Absolute | 0.6 (L)Comment: Testing | 1.0 - 3.9 K/uL | EXTERNAL | | | Lymphocytes | performed at [facility], [address] | | LAB | | | | [address], | | | | | | [place] [address] | | | | + + + + + + | Absolute | 0.8Comment: Testing | 0 - 0.8 K/uL | EXTERNAL | | | Monocytes | performed at [facility], [address] | | LAB | | | | [address], | | | | | | [place] [address] | | | | + + + + + + | RBC | 1+Comment: ANISONORMAL | | EXTERNAL | | | Morphology | PLT MORPHTesting | | LAB | | | | performed at [facility], [address] | | | | | | [address], | | | | | | [place] [address] | | | | | | | [...] EXTERNAL | | | | [place] [facility] | | LAB | | | | [address] [facility];[place], [place] | | | | | | [address] | | | | + + + [...] + + | Hemoglobin | 5.4Comment: [facility] [place] | 4.0 - 6.0 % | EXTERNAL [...] | | | | | performed at [facility], [address] | | | | | [address], | | | | | | [place] [address] | | | | + + + [...] | | | | | performed at [facility], [address] | | | | | | [facility], | | | | | | [place] [address] | | | | + + + [...] EXTERNAL | | | | performed at [facility] | mmol/L | LAB | | | | [address];[place] | | | | | | [address] | | | | + + + + + + | K | 5.0 (H)Comment: Testing | 3.5 - 4.9 | EXTERNAL | | | | performed at [facility] | mmol/L | LAB | | | | [address];[place] | | | | | | [address] | | | | + + + + + + | Cl | 109Comment: Testing | 99 - 109 mmol/L | EXTERNAL | | | | performed at [facility];[address] | | LAB | | | | [address];[place] | | | | | | [address] | | | | + + + + + + | CO2 | 24Comment: Testing | 23 - 32 mmol/L | EXTERNAL | | | | performed at [facility];[address] | | LAB | | | | [address];[place] | | | | | | [address] | | | | + + + + + + | Anion Gap | 12Comment: Testing | 5 - 20 mmol/L | EXTERNAL | | | | performed at [facility] | | LAB | | | | [address];[place] | | | | | | [address] | | | | + + + + + + | Glucose, | 147 (H)Comment: Testing | 65 - 99 mg/dL | EXTERNAL | | | Fasting | performed at [facility];[address] | | LAB | | | | [address];[place] | | | | | | [address] | | | | + + + + + + | BUN | 19Comment: Testing | 8 - 25 mg/dL | EXTERNAL | | | | performed at [facility];[address] | | LAB | | | | [address];[place] | | | | | | [address] | | | | + + + + + + | Creatinine | 1.00Comment: Testing | 0.70 - 1.30 | EXTERNAL | | | | performed at [facility];[address] | mg/dL | LAB | | | | [address];[place] | | | | | | [address] | | | | + + + + + + | BUN/Creatin | 19Comment: Testing | | EXTERNAL | | | ine Ratio | performed at [facility];[address] | | LAB | | | | [address];[place] | | | | | | [address] | | | | + + + + + + | Calcium | 8.3 (L)Comment: Testing | 8.5 - 10.2 | EXTERNAL | | | | performed at [facility];[address] | mg/dL | LAB | | | | [address];[place], [place] | | | | | | [address] | | | | + + + [...] | | | | | | at [facility];[address];[place] [address] | | | | + + + [...] | | | Fingerstick | performed at [facility] | | LAB | | | | [address];[place], [place] | | | | | | [address] | | | | + + + [...] | | | Fingerstick | performed at [facility];[address] | | LAB | | | | [address];[place], [place] | | | | | | [address] | | | | + + + [...] EXTERNAL | | | | performed at [facility];888 | mmol/L | LAB | | | | [address];[place], [place] | | | | | | [address] | | | | + + + [...] | | | Fingerstick | performed at [facility];[address] | | LAB | | | | [address];[place] | | | | | | [address] | | | | + + + [...] 1.0 cm in aggregate. | | | Aging Box Hand sections are submitted in cassette A1 and [...] preparation was performed by | | | [facility], [facility], [address] [place] [address], | | | [place] [address] (Customer Service Trainer: David Dawson M.D.; | | | [facility]#: [id number]). Diagnostician: Ayad Briscoe MD Pathologist | | [...] | | | Fingerstick | performed at [facility];[address] | | LAB | | | | [address];[place] | | | | | | [address] | | | | + + + [...] + + | Historically converted procedure from [facility] environment | EXTERNAL LAB | + + + + +---------+ + + | Performing | Address | City/State/Zipcode | Phone Number | | Organization | | | | + +---------+ + + | EXTERNAL LAB | | | | + +---------+ + + XR Chest 1 Jin (03/10/2014 8:58 PM PDT) + + | [...] are seen. | | | A left-sided Wittenberg-Christiana catheter sheath is seen with the Wittenberg Ann Marie | | | retracted into [...] + + | Raudel Aguillon Conversion - 01/18/2019 9:23 PM PDT DENISE Wilmer STONE CHEST 1 | | VIEW03/10/2014 8:58 [...] Transvenous pacing presents are seen. A left-sided Wittenberg-Christiana | | catheter sheath is seen with the Wittenberg Ann Marie retracted into the sheath. The [...] Transvenous pacing presents are seen. A left-sided Wittenberg-Christiana catheter sheath is se en with the Wittenberg Ann Marie retracted into the sheath. The [...] | | | Patient | performed at [facility];[address] | | LAB | | | | [address];[place], [place] | | | | | | [address] | | | | + + + [...] | | | | | performed at [facility] | | | | | | [address];[place], [place] | | | | | | [address] | | | | + + + [...] EXTERNAL | | | | performed at [facility];[address] | | LAB | | | | [address];[place] | | | | | | [address] | | | | + + + [...] EXTERNAL | | | | performed at [facility];[address] | | LAB | | | | [address];[place] | | | | | | [address] | | | | + + + + + + | Non- | 3.19 (L)Comment: Testing | 4.20 - 5.70 | EXTERNAL | | | Red Blood | performed at [facility];888 | M/uL | LAB | | | Cells | [address];[place] | | | | | Counted | [id number] | | | | + + + + + + | Hemoglobin | 10.3 (L)Comment: Testing | 13.2 - 17.0 | EXTERNAL | | | | performed at [facility];888 | g/dL | LAB | | | | [address];[place] | | | | | | [address] | | | | + + + + + + | Hematocrit, | 30.9 (L)Comment: Testing | 39.0 - 50.0 % | EXTERNAL | | | POC | performed at [facility];[address] | | LAB | | | | [address];[place] | | | | | | [address] | | | | + + + + + + | MCV | 96.9Comment: Testing | 80.0 - 100.0 fl | EXTERNAL | | | | performed at [facility];[address] | | LAB | | | | [address];[place] | | | | | | [address] | | | | + + + + + + | MCH | 32.4Comment: Testing | 27.0 - 34.0 pg | EXTERNAL | | | | performed at [facility];[address] | | LAB | | | | [address];[place] | | | | | | [address] | | | | + + + + + + | MCHC | 33.4Comment: Testing | 32.0 - 35.5 | EXTERNAL | | | | performed at [facility];888 | g/dL | LAB | | | | [address];[place] | | | | | | [address] | | | | + + + + + + | RDW-CV | 56.9 (H)Comment: Testing | 37 - 53 fl | EXTERNAL | | | | performed at [facility];[address] | | LAB | | | | [address];[place] | | | | | | [address] | | | | + + + + + + | Platelet | 141 (L)Comment: Testing | 150 - 400 K/uL | EXTERNAL | | | Count | performed at [facility];[address] | | LAB | | | Plasma | [address];[place] | | | | | | [address] | | | | + + + + + + | MPV | 7.8Comment: Testing | fl | EXTERNAL | | | | performed at [facility];[address] | | LAB | | | | [address];[place] | | | | | | [address] | | | | + + + + + + | Differentia | AUTOMATEDComment: | | EXTERNAL | | | l Type | Testing performed at | | LAB | | | | [facility];[address];[place] [address] | | | | + + + + + + | % Segmented | 87.9Comment: Testing | % | EXTERNAL | | | | performed at [facility];[address] | | LAB | | | Neutrophils | [address];[place] | | | | | | [address] | | | | + + + + + + | % | 7.0Comment: Testing | % | EXTERNAL | | | Lymphocytes | performed at [facility];[address] | | LAB | | | | [address];[place] | | | | | | [address] | | | | + + + + + + | % Monocytes | 3.8Comment: Testing | % | EXTERNAL | | | | performed at [facility];[address] | | LAB | | | | [address];[place] | | | | | | [address] | | | | + + + + + + | % | 0.8Comment: Testing | % | EXTERNAL | | | Eosinophils | performed at [facility];[address] | | LAB | | | | [address];[place] | | | | | | [address] | | | | + + + + + + | % Basophils | 0.5Comment: Testing | % | EXTERNAL | | | | performed at [facility];[address] | | LAB | | | | [address];[place] | | | | | | [address] | | | | + + + + + + | Absolute | 19.5 (H)Comment: Testing | 1.9 - 7.4 K/uL | EXTERNAL | | | Segmented | performed at [facility];[address] | | LAB | | | Neutrophils | [address];[place] | | | | | | [address] | | | | + + + + + + | Absolute | 1.5Comment: Testing | 1.0 - 3.9 K/uL | EXTERNAL | | | Lymphocytes | performed at [facility];[address] | | LAB | | | | [address];[place] | | | | | | [address] | | | | + + + + + + | Absolute | 0.8Comment: Testing | 0 - 0.8 K/uL | EXTERNAL | | | Monocytes | performed at [facility];[address] | | LAB | | | | [address];[place] | | | | | | [address] | | | | + + + + + + | Absolute | 0.2Comment: Testing | 0 - 0.5 K/uL | EXTERNAL | | | Eosinophils | performed at [facility];[address] | | LAB | | | | [address];[place] | | | | | | [address] | | | | + + + + + + | Absolute | 0.1Comment: Testing | 0 - 0.1 K/uL | EXTERNAL | | | Basophils | performed at [facility];[address] | | LAB | | | | [address];[place] | | | | | | [address] | | | | + + + + + + | Differentia | SLIDE SCANNED, AGREES | | EXTERNAL | | | l Comments | WITH AUTOMATED | | LAB | | | | RESULTS.Comment: Testing | | | | | | performed at [facility];[address] | | | | | | [address];[place] | | | | | | [address] | | | | + + + [...] | | | Fingerstick | performed at [facility];[address] | | LAB | | | | [address];[place] | | | | | | [address] | | | | + + + [...] EXTERNAL | | | | performed at [facility];[address] | | LAB | | | | [address];[place], [place] | | | | | | [address] | | | | + + + [...] EXTERNAL | | | | performed at [facility];[address] | mmol/L | LAB | | | | [address];[place] | | | | | | [address] | | | | + + + + + + | K | 4.8Comment: Testing | 3.5 - 4.9 | EXTERNAL | | | | performed at [facility];888 | mmol/L | LAB | | | | [address];[place] | | | | | | [address] | | | | + + + + + + | Cl | 108Comment: Testing | 99 - 109 mmol/L | EXTERNAL | | | | performed at [facility];[address] | | LAB | | | | [address];[place] | | | | | | [address] | | | | + + + + + + | CO2 | 24Comment: Testing | 23 - 32 mmol/L | EXTERNAL | | | | performed at [facility];[address] | | LAB | | | | [address];[place] | | | | | | [address] | | | | + + + + + + | Anion Gap | 14Comment: Testing | 5 - 20 mmol/L | EXTERNAL | | | | performed at [facility];[address] | | LAB | | | | [address];[place] | | | | | | [address] | | | | + + + + + + | Glucose, | 129 (H)Comment: Testing | 65 - 99 mg/dL | EXTERNAL | | | Fasting | performed at [facility];[address] | | LAB | | | | [address];[place] | | | | | | [address] | | | | + + + + + + | BUN | 17Comment: Testing | 8 - 25 mg/dL | EXTERNAL | | | | performed at [facility];[address] | | LAB | | | | [address];[place] | | | | | | [address] | | | | + + + + + + | Creatinine | 0.94Comment: Testing | 0.70 - 1.30 | EXTERNAL | | | | performed at [facility];[address] | mg/dL | LAB | | | | [address];[place] | | | | | | [address] | | | | + + + + + + | BUN/Creatin | 19Comment: Testing | | EXTERNAL | | | ine Ratio | performed at [facility];[address] | | LAB | | | | [address];[place] | | | | | | [address] | | | | + + + + + + | Calcium | 8.3 (L)Comment: Testing | 8.5 - 10.2 | EXTERNAL | | | | performed at [facility];[address] | mg/dL | LAB | | | | [address];[place] | | | | | | [address] | | | | + + + [...] | | | | | | at [facility];[address] [place] [address] | | | | | | v[address];[place] [address] | | | | + + + [...] | | | (Calc) | performed at [facility];[address] | mmol/L | LAB | | | | [address];[place], [place] | | | | | | [address] | | | | + + + + + + | pH, Bld | 7.331Comment: Testing | 7.300 - 7.450 | EXTERNAL | | | | performed at [facility];[address] | | LAB | | | | [address];[place], [place] | | | | | | [address] | | | | + + + [...] This is a non-reportable procedure without a principal embedded software engineer report and | | | is used for image storage only. Please review the operative | | | procedure notes for details on the procedure. | | + + + + + | Procedure Note | + + | Raudel Aguillon - 01/18/2019 9:23 PM PDT This is a non-reportable procedure | | without a principal embedded software engineer report and isused for image storage only. Please review the | | operative procedure notesfor details on the procedure. | + + POC SAKSHI MAYBERRY8, Arterial (03/10/2014 7:26 PM PDT) + + + + + + | Component | Value | Ref Range | Performed | Pathologist | | | | | At | Signature | + + + + + + | PH ART | 7.428Comment: Testing | 7.350 - 7.450 | EXTERNAL | | | | performed at [facility];[address] | | LAB | | | | [address];[place], [place] | | | | | | [address] | | | | + + + + + + | PCO2 ART | 40Comment: Testing | 35 - 45 mmHg | EXTERNAL | | | | performed at [facility];[address] | | LAB | | | | [address];[place] | | | | | | [address] | | | | + + + + + + | PO2 ART | 268 (H)Comment: Testing | 80 - 105 mmHg | EXTERNAL | | | | performed at [facility];[address] | | LAB | | | | [address];[place] | | | | | | [address] | | | | + + + + + + | HCO3 ART | 27 (H)Comment: Testing | 22 - 26 mmol/L | EXTERNAL | | | | performed at [facility];[address] | | LAB | | | | [address];[place] | | | | | | [address] | | | | + + + + + + | POC | 28 (H)Comment: Testing | 23 - 27 mEq/L | EXTERNAL | | | APPEARANCE | performed at [facility];[address] | | LAB | | | UA | [address];[place] | | | | | | [address] | | | | + + + + + + | Base | 2Comment: Testing | 0 - 3 mEq/L | EXTERNAL | | | Excess, | performed at [facility];[address] | | LAB | | | Arterial | [address];[place] | | | | | | [address] | | | | + + + + + + | O2 SAT ART | 100 (H)Comment: Testing | 95 - 98 % | EXTERNAL | | | | performed at [facility];[address] | | LAB | | | | [address];[place] | | | | | | [address] | | | | + + + + + + | Sodium, POC | 136Comment: Testing | 135 - 145 mEq/L | EXTERNAL | | | | performed at [facility];[address] | | LAB | | | | [address];[place] | | | | | | [address] | | | | + + + + + + | Potassium, | 5.0Comment: Testing | 3.5 - 5.0 mEq/L | EXTERNAL | | | POC | performed at [facility];[address] | | LAB | | | | [address] | | | | | | [address] | | | | + + + + + + | Ionized | 1.23Comment: Testing | 1.12 - 1.32 | EXTERNAL | | | Calcium, | performed at [facility];[address] | mmol/L | LAB | | | POC | [address];[place] | | | | | | [address] | | | | + + + + + + | Glucose, | 112 (H)Comment: Testing | 65 - 99 mg/dL | EXTERNAL | | | POC | performed at [facility];[address] | | LAB | | | | [address];[place] | | | | | | [address] | | | | + + + + + + | Hematocrit, | 25 (L)Comment: Testing | 40.0 - 50.0 % | EXTERNAL | | | POC | performed at [facility];[address] | | LAB | | | | [address];[place] | | | | | | [address] | | | | + + + + + + | Hemoglobin, | 8.5 (L)Comment: Testing | 13.7 - 16.7 | EXTERNAL | | | POC | performed at [facility];[address] | g/dL | LAB | | | | [address];[place] | | | | | | [address] | | | | + + + + + + + + | Specimen | + + | | + + + +---------+ + + | Performing | Address | City/State/Zipcode | Phone Number | | Organization | | | | + +---------+ + + | EXTERNAL LAB | | | | + +---------+ + + POC SHAWANDA, CG8, Arterial (03/10/2014 6:31 PM PDT) + [...] | | LAB | | | | [facility];[address] | | | | | | [address] [address] | | | | + + + + + + | PCO2 ART | 38Comment: Testing | 35 - 45 mmHg | EXTERNAL | | | | performed at [facility];[address] | | LAB | | | | [address];[place] | | | | | | [address] | | | | + + + + + + | PO2 ART | 196 (H)Comment: Testing | 80 - 105 mmHg | EXTERNAL | | | | performed at [facility];[address] | | LAB | | | | [address];[place] | | | | | | [address] | | | | + + + + + + | HCO3 ART | 28 (H)Comment: Testing | 22 - 26 mmol/L | EXTERNAL | | | | performed at [facility];[address] | | LAB | | | | [address];[place] | | | | | | [address] | | | | + + + + + + | POC | 29 (H)Comment: Testing | 23 - 27 mEq/L | EXTERNAL | | | APPEARANCE | performed at [facility];[address] | | LAB | | | UA | [address];[place] | | | | | | [address] | | | | + + + + + + | Base | 4 (H)Comment: Testing | 0 - 3 mEq/L | EXTERNAL | | | Excess, | performed at [facility];[address] | | LAB | | | Arterial | [address];[place] | | | | | | [address] | | | | + + + + + + | O2 SAT ART | 100 (H)Comment: Testing | 95 - 98 % | EXTERNAL | | | | performed at [facility];[address] | | LAB | | | | [address];[place] | | | | | | [address] | | | | + + + + + + | Sodium, POC | 137Comment: Testing | 135 - 145 mEq/L | EXTERNAL | | | | performed at [facility];[address] | | LAB | | | | [address];[place] | | | | | | [address] | | | | + + + + + + | Potassium, | 5.8 (H)Comment: Testing | 3.5 - 5.0 mEq/L | EXTERNAL | | | POC | performed at [facility];[address] | | LAB | | | | [address];[place] | | | | | | [address] | | | | + + + + + + | Ionized | 1.08 (L)Comment: Testing | 1.12 - 1.32 | EXTERNAL | | | Calcium, | performed at [facility];888 | mmol/L | LAB | | | POC | [address];[place] | | | | | | [address] | | | | + + + + + + | Glucose, | 100 (H)Comment: Testing | 65 - 99 mg/dL | EXTERNAL | | | POC | performed at [facility];[address] | | LAB | | | | [address];[place] | | | | | | [address] | | | | + + + + + + | Hematocrit, | 25 (L)Comment: Testing | 40.0 - 50.0 % | EXTERNAL | | | POC | performed at [facility];[address] | | LAB | | | | [address];[place] | | | | | | [address] | | | | + + + + + + | Hemoglobin, | 8.5 (L)Comment: Testing | 13.7 - 16.7 | EXTERNAL | | | POC | performed at [facility];[address] | g/dL | LAB | | | | [address];[place], [place] | | | | | | [address] | | | | + + + + + + + + | Specimen | + + | | + + + +---------+ + + | Performing | Address | City/State/Zipcode | Phone Number | | Organization | | | | + +---------+ + + | EXTERNAL LAB | | | | + +---------+ + + POC ISJUAN ANTONIO, CG8, Arterial (03/10/2014 6:03 PM PDT) + + + + + + | Component | Value | Ref Range | Performed | Pathologist | | | | | At | Signature | + + + + + + | PH ART | 7.431Comment: Testing | 7.350 - 7.450 | EXTERNAL | | | | performed at [facility];[address] | | LAB | | | | [address];[place] | | | | | | [address] | | | | + + + + + + | PCO2 ART | 43Comment: Testing | 35 - 45 mmHg | EXTERNAL | | | | performed at [facility];[address] | | LAB | | | | [address] | | | | | | [address] | | | | + + + + + + | PO2 ART | 264 (H)Comment: Testing | 80 - 105 mmHg | EXTERNAL | | | | performed at [facility];[address] | | LAB | | | | [address] | | | | | | [address] | | | | + + + + + + | HCO3 ART | 29 (H)Comment: Testing | 22 - 26 mmol/L | EXTERNAL | | | | performed at [facility];[address] | | LAB | | | | [address] | | | | | | [address] | | | | + + + + + + | POC | 30 (H)Comment: Testing | 23 - 27 mEq/L | EXTERNAL | | | APPEARANCE | performed at [facility];[address] | | LAB | | | UA | [address];[place] | | | | | | [address] | | | | + + + + + + | Base | 4 (H)Comment: Testing | 0 - 3 mEq/L | EXTERNAL | | | Excess, | performed at [facility];[address] | | LAB | | | Arterial | [address];[place] | | | | | | [address] | | | | + + + + + + | O2 SAT ART | 100 (H)Comment: Testing | 95 - 98 % | EXTERNAL | | | | performed at [facility];[address] | | LAB | | | | [address];[place] | | | | | | [address] | | | | + + + + + + | Sodium, POC | 137Comment: Testing | 135 - 145 mEq/L | EXTERNAL | | | | performed at [facility];[address] | | LAB | | | | [address] | | | | | | [address] | | | | + + + + + + | Potassium, | 4.7Comment: Testing | 3.5 - 5.0 mEq/L | EXTERNAL | | | POC | performed at [facility];[address] | | LAB | | | | [address];[place] | | | | | | [address] | | | | + + + + + + | Ionized | 1.09 (L)Comment: Testing | 1.12 - 1.32 | EXTERNAL | | | Calcium, | performed at [facility];[address] | mmol/L | LAB | | | POC | [address];[place] | | | | | | [address] | | | | + + + + + + | Glucose, | 96Comment: Testing | 65 - 99 mg/dL | EXTERNAL | | | POC | performed at [facility];[address] | | LAB | | | | [address];[place] | | | | | | [address] | | | | + + + + + + | Hematocrit, | 26 (L)Comment: Testing | 40.0 - 50.0 % | EXTERNAL | | | POC | performed at [facility];[address] | | LAB | | | | [address];[place] | | | | | | [address] | | | | + + + + + + | Hemoglobin, | 8.8 (L)Comment: Testing | 13.7 - 16.7 | EXTERNAL | | | POC | performed at [facility];[address] | g/dL | LAB | | | | [address];[place] | | | | | | [address] | | | | + + + + + + + + | Specimen | + + | | + + + +---------+ + + | Performing | Address | City/State/Zipcode | Phone Number | | Organization | | | | + +---------+ + + | EXTERNAL LAB | | | | + +---------+ + + RACHELE MAYBERRY CG8 Arterial (03/10/2014 5:36 PM PDT) + + + + + + | Component | Value | Ref Range | Performed | Pathologist | | | | | At | Signature | + + + + + + | PH ART | 7.378Comment: Testing | 7.350 - 7.450 | EXTERNAL | | | | performed at [facility];[address] | | LAB | | | | [address];[place] | | | | | | [address] | | | | + + + + + + | PCO2 ART | 50 (H)Comment: Testing | 35 - 45 mmHg | EXTERNAL | | | | performed at [facility];[address] | | LAB | | | | [address] | | | | | | [address] | | | | + + + + + + | PO2 ART | 303 (H)Comment: Testing | 80 - 105 mmHg | EXTERNAL | | | | performed at [facility] [place] | | [place] | | | | [address];[place] | | | | | | [address] | | | | + + + + + + | HCO3 ART | 29 (H)Comment: Testing | 22 - 26 mmol/L | EXTERNAL | | | | performed at [facility] [place] | | LAB | | | | [address];[place] | | | | | | [address] | | | | + + + + + + | POC | 31 (H)Comment: Testing | 23 - 27 mEq/L | EXTERNAL | | | APPEARANCE | performed at [facility] [place] | | LAB | | | UA | [address];[place] | | | | | | [address] | | | | + + + + + + | Base | 4 (H)Comment: Testing | 0 - 3 mEq/L | EXTERNAL | | | Excess, | performed at [facility] [place] | | LAB | | | Arterial | [address];[place] | | | | | | [address] | | | | + + + + + + | O2 SAT ART | 100 (H)Comment: Testing | 95 - 98 % | EXTERNAL | | | | performed at [facility] [place] | | [place] | | | | [address];[place] | | | | | | [address] | | | | + + + + + + | Sodium, POC | 135Comment: Testing | 135 - 145 mEq/L | EXTERNAL | | | | performed at [facility] [place] | | LAB | | | | [address];[place] | | | | | | [address] | | | | + + + + + + | Potassium, | 6.4 (HH)Comment: Testing | 3.5 - 5.0 mEq/L | EXTERNAL | | | POC | performed at [facility] [place] | | LAB | | | | [address];[place] | | | | | | [address] | | | | + + + + + + | Ionized | 1.07 (L)Comment: Testing | 1.12 - 1.32 | EXTERNAL | | | Calcium, | performed at [facility] [place] | mmol/L | LAB | | | POC | [address];[place] | | | | | | [address] | | | | + + + + + + | Glucose, | 101 (H)Comment: Testing | 65 - 99 mg/dL | EXTERNAL | | | POC | performed at [facility] [place] | | LAB | | | | [address];[place] | | | | | | [address] | | | | + + + + + + | Hematocrit, | 24 (L)Comment: Testing | 40.0 - 50.0 % | EXTERNAL | | | POC | performed at [facility] [place] | | LAB | | | | [address];[place] | | | | | | [address] | | | | + + + + + + | Hemoglobin, | 8.2 (L)Comment: Testing | 13.7 - 16.7 | EXTERNAL | | | POC | performed at [facility] [place] | g/dL | LAB | | | | [address];[place] | | | | | | [address] | | | | + + + + + + + + | Specimen | + + | | + + + +---------+ + + | Performing | Address | City/State/Zipcode | Phone Number | | Organization | | | | + +---------+ + + | EXTERNAL LAB | | | | + +---------+ + + POC SHAWANDA [id number], Arterial (03/10/2014 5:05 PM PDT) + [...] | | LAB | | | | [facility] [place];[place] [address] | | | | + + + + + + | PCO2 ART | 66 (HH)Comment: Testing | 35 - 45 mmHg | EXTERNAL | | | | performed at [facility] [place] | | LAB | | | | [address];[place] | | | | | | [address] | | | | + + + + + + | PO2 ART | 405 (H)Comment: Testing | 80 - 105 mmHg | EXTERNAL | | | | performed at [facility] [place] | | LAB | | | | [address];[place] | | | | | | [address] | | | | + + + + + + | HCO3 ART | 29 (H)Comment: Testing | 22 - 26 mmol/L | EXTERNAL | | | | performed at [facility] [place] | | LAB | | | | [address];[place] | | | | | | [address] | | | | + + + + + + | POC | 31 (H)Comment: Testing | 23 - 27 mEq/L | EXTERNAL | | | APPEARANCE | performed at [facility] [place] | | LAB | | | UA | [address];[place] | | | | | | [address] | | | | + + + + + + | Base | 2Comment: Testing | 0 - 3 mEq/L | EXTERNAL | | | Excess, | performed [facility] [facility] [place];[address] | | LAB | | | Arterial | [address];[place] | | | | | | [address] | | | | + + + + + + | O2 SAT ART | 100 (H)Comment: Testing | 95 - 98 % | EXTERNAL | | | | performed at [facility] [place] | | LAB | | | | [address];[place] | | | | | | [address] | | | | + + + + + + | Sodium, POC | 135Comment: Testing | 135 - 145 mEq/L | EXTERNAL | | | | performed at [facility] [place] | | LAB | | | | [address];[place] | | | | | | [address] | | | | + + + + + + | Potassium, | 4.4Comment: Testing | 3.5 - 5.0 mEq/L | EXTERNAL | | | POC | performed at [facility] [place] | | LAB | | | | [address];[place] | | | | | | [address] | | | | + + + + + + | Ionized | 1.21Comment: Testing | 1.12 - 1.32 | EXTERNAL | | | Calcium, | performed at [facility] [place] | mmol/L | LAB | | | POC | [address];[place] | | | | | | [address] | | | | + + + + + + | Glucose, | 107 (H)Comment: Testing | 65 - 99 mg/dL | EXTERNAL | | | POC | performed at [facility] [place] | | LAB | | | | [address];[place] | | | | | | [address] | | | | + + + + + + | Hematocrit, | 32 (L)Comment: Testing | 40.0 - 50.0 % | EXTERNAL | | | POC | performed at [facility] [place] | | LAB | | | | [address];[place] | | | | | | [address] | | | | + + + + + + | Hemoglobin, | 10.9 (L)Comment: Testing | 13.7 - 16.7 | EXTERNAL | | | POC | performed at [facility] [place] | g/dL | LAB | | | | [address];[place] | | | | | | [address] | | | | + + + + + + + + | Specimen | + + | | + + + +---------+ + + | Performing | Address | City/State/Zipcode | Phone Number | | Organization | | | | + +---------+ + + | EXTERNAL LAB | | | | + +---------+ + + POC SHAWANDA, CG8, Arterial (03/10/2014 3:07 PM PDT) + + + + + + | Component | Value | Ref Range | Performed | Pathologist | | | | | At | Signature | + + + + + + | PH ART | 7.411Comment: Testing | 7.350 - 7.450 | EXTERNAL | | | | performed at [facility] [place] | | LAB | | | | [address] | | | | | | [address] | | | | + + + + + + | PCO2 ART | 45Comment: Testing | 35 - 45 mmHg | EXTERNAL | | | | performed at [facility] [place] | | LAB | | | | [address];[place] | | | | | | [address] | | | | + + + + + + | PO2 ART | 288 (H)Comment: Testing | 80 - 105 mmHg | EXTERNAL | | | | performed at [facility] [place] | | LAB | | | | [address];[place] | | | | | | [address] | | | | + + + + + + | HCO3 ART | 28 (H)Comment: Testing | 22 - 26 mmol/L | EXTERNAL | | | | performed at [facility] [place] | | LAB | | | | [address];[place] | | | | | | [address] | | | | + + + + + + | POC | 30 (H)Comment: Testing | 23 - 27 mEq/L | EXTERNAL | | | APPEARANCE | performed at [facility] [place] | | LAB | | | UA | [address];[place] | | | | | | [address] | | | | + + + + + + | Base | 4 (H)Comment: Testing | 0 - 3 mEq/L | EXTERNAL | | | Excess, | performed at [facility] [place] | | LAB | | | Arterial | [address];[place] | | | | | | [address] | | | | + + + + + + | O2 SAT ART | 100 (H)Comment: Testing | 95 - 98 % | EXTERNAL | | | | performed at [facility] [place] | | LAB | | | | [address];[place] | | | | | | [address] | | | | + + + + + + | Sodium, POC | 138Comment: Testing | 135 - 145 mEq/L | EXTERNAL | | | | performed at [facility] [place] | | LAB | | | | [address];[place] | | | | | | [address] | | | | + + + + + + | Potassium, | 3.8Comment: Testing | 3.5 - 5.0 mEq/L | EXTERNAL | | | POC | performed at [facility] [place] | | LAB | | | | [address];[place] | | | | | | [address] | | | | + + + + + + | Ionized | 1.22Comment: Testing | 1.12 - 1.32 | EXTERNAL | | | Calcium, | performed at [facility] [place] | mmol/L | LAB | | | POC | [address];[place] | | | | | | [address] | | | | + + + + + + | Glucose, | 88Comment: Testing | 65 - 99 mg/dL | EXTERNAL | | | POC | performed at [facility] [place] | | LAB | | | | [address];[place] | | | | | | [address] | | | | + + + + + + | Hematocrit, | 30 (L)Comment: Testing | 40.0 - 50.0 % | EXTERNAL | | | POC | performed at [facility] [place] | | LAB | | | | [address];[place] | | | | | | [address] | | | | + + + + + + | Hemoglobin, | 10.2 (L)Comment: Testing | 13.7 - 16.7 | EXTERNAL | | | POC | performed at [facility] [place] | g/dL | LAB | | | | [address];[place] | | | | | | [address] | | | | + + + [...] | | | Fingerstick | performed at [facility] [place] | | LAB | | | | [address];[place] | | | | | | [address] | | | | + + + [...] + + | Historically converted procedure from [facility] | EXTERNAL LAB | + + + [...] | | | Patient | performed at [facility] [place] | | LAB | | | | [address];[place] | | | | | | [address] | | | | + + + [...] | | | | | performed at [facility] [place] | | | | | | [facility];[place], [place] | | | | | | [address] | | | | + + + [...] | | | Patient | performed at [facility] | | LAB | | | | [address];[place] | | | | | | [address] | | | | + + + [...] At | + + + | DENISE Wilmer GASCA XR CHEST 2 VIEW FRONTAL AND [...] 01/18/2019 9:23 PM PDT DENISE STONE CHEST 2 VIEW FRONTAL | | AND BDFFMHE64/5/2014 6:17 PM History: 78 years. Male. Aortic [...] | | | Patient | performed at [facility] | | LAB | | | | [address];[place], [place] | | | | | | [address] | | | | + + + [...] + + | Raudel Aguillon Conversion - 01/18/2019 9:23 PM PDT HISTORY:Preoperative [...] EXTERNAL LAB | | Testing performed at [address];[place] [address] MRSA PCR | | | NEGATIVE Testing performed at | | | [address];[place] [address] | | + + + + +---------+ [...] 78-year-old gentleman who was evaluated by Dr. Simental for severe aortic | | | valve stenosis. He has a history of a mechanical mitral valve | | | replacement and previously angioplasty for 2 of his artery. For | | | further evaluation of the aortic valve and for preoperative | | | assessment, he was referred for a left and right heart | | | catheterization. Please refer to Dr. Simental for further details. | | | DESCRIPTION [...] common femoral vein was cannulized with a 7-Nigerian sheath and | | | the right common femoral artery was cannulized with a 6-Nigerian | | | sheath. Over a guidewire a 5-Nigerian FL-4 diagnostic catheter was | | | advanced to the ascending aorta and found to be too short. So it was | | | exchanged for a 5-Nigerian FL-6 catheter that selectively engaged the | | | left main. Contrast was injected. A selective angiogram for the left | | | main, LAD, and left circumflex arteries was performed in different | | | views. Over a guidewire it was exchanged for a diagnostic 5-Nigerian | | | FR-4 catheter selectively engaging the right coronary artery. | | | Contrast was injected. A selective angiogram for the right coronary | | | artery was performed in different views. Over a guidewire it was | | | exchanged for a 5-Nigerian FR-4 diagnostic catheter that selectively | | | engaged the RCA. Contrast was injected. Selective angiogram for the | | | RCA was performed in different views. The catheter was removed. | | | Through the venous sheath, a Wittenberg-Christiana catheter was advanced to the | | [...] success, and so it was exchanged for 5-Nigerian | | | AL-1 diagnostic catheter with a fixed cord straight tip wire. I was | | | able to advance the AL-1 to the left ventricle, and the AL-1 was | | | exchanged over a 260 exchange wire to a 6-Nigerian Millsap catheter | | | that was advanced to the left ventricle. Gradient across the aortic | | | valve was measured and the gradient across the mitral valve was | | | measured with the wedge position. Then the Wittenberg-Christiana catheter was | | | removed. The Millsap catheter was removed over the guidewire, and | | | both sheaths were removed. Manual pressure was held for 20 minutes | | | with good hemostasis. The patient was transferred to the recovery | | | [facility] in stable condition. FINDINGS HEMODYNAMICS 1. Systemic | | | pressure 103/62. 2. Left ventricular end-diastolic pressure 21 mmHg. | | | 3. Ulmi-wj-tmlq gradient across the aortic valve 46 mmHg. [...] 78-year-old gentleman who was evaluated by Dr. Simental for | | severe aortic valve stenosis. He has a history of a mechanical mitral | | valve replacement and previously angioplasty for 2 of his artery. For | | further evaluation of the aortic valve and for preoperative assessment, he | | was referred for a left and right heart catheterization. Please refer to | | Dr. Simental for further details. | | | | [...] vein was cannulized | | with a 7-Nigerian sheath and the right common femoral artery was cannulized | | with a 6-Nigerian sheath. Over a guidewire a 5-Nigerian FL-4 diagnostic | | catheter was advanced to the ascending aorta and found to be too short. So | | it was exchanged for a 5-Nigerian FL-6 catheter that selectively engaged the | | left main. Contrast was injected. A selective angiogram for the left main, | | LAD, and left circumflex arteries was performed in different views. Over a | | guidewire it was exchanged for a diagnostic 5-Nigerian FR-4 catheter | | selectively engaging the right coronary artery. Contrast was injected. A | | selective angiogram for the right coronary artery was performed in | | different views. Over a guidewire it was exchanged for a 5-Nigerian FR-4 | | diagnostic catheter that selectively engaged the RCA. Contrast was | | injected. Selective angiogram for the RCA was performed in different | | views. | | | | The catheter was removed. | | | | Through the venous sheath, a Wittenberg-Christiana catheter was advanced to the right | [...] success, and so it was exchanged for 5-Nigerian AL-1 diagnostic catheter | | with a fixed cord straight tip wire. I was able to advance the AL-1 to the | | left ventricle, and the AL-1 was exchanged over a 260 exchange wire to a | | 6-Nigerian Alex catheter that was advanced to the left ventricle. | | Gradient across the aortic valve was measured and the gradient across the | | mitral valve was measured with the wedge position. Then the Wittenberg-Christiana | | catheter was removed. The Alex catheter was removed over the | | [...] end-diastolic pressure 21 mmHg. | | 3. Fzpe-bq-hvfh gradient across the aortic valve 46 mmHg. [...] EXTERNAL | | | Patient | NURSING [id number],FRANSISCA | | LAB | | | | B AT 0235 BY [facility] BACK | | | | | | RESULTS VERIFIEDTesting | | | | | | performed at [facility] [place] | | | | | | [address];[place], [place] | | | | | | [address] | | | | + + + [...] | | | | | performed at [facility] | | | | | | [facility];[place], [place] | | | | | | [address] | | | | + + + [...] | | | Patient | TO MONICO Gil ON 4RP AT | | LAB | | | | 1851 BY [employer] BACK | | | | | | RESULTS VERIFIEDTesting | | | | | | performed at [facility] [place] | | | | | | [place] | | | | | | [address] | | | | + + + [...] EXTERNAL | | | | performed at [facility] [place] | | LAB | | | | [address];[place] | | | | | | [address] | | | | + + + + + + | Non- | 3.52 (L)Comment: Testing | 4.20 - 5.70 | EXTERNAL | | | Red Blood | performed at [facility] [place] | M/uL | LAB | | | Cells | [address];[place] | | | | | Counted | [id number] | | | | + + + + + + | Hemoglobin | 11.4 (L)Comment: Testing | 13.2 - 17.0 | EXTERNAL | | | | performed at [facility] [place] | g/dL | LAB | | | | [address];[place] | | | | | | [address] | | | | + + + + + + | Hematocrit, | 34.1 (L)Comment: Testing | 39.0 - 50.0 % | EXTERNAL | | | POC | performed at [facility] [place] | | LAB | | | | [address];[place] | | | | | | [address] | | | | + + + + + + | MCV | 96.7Comment: Testing | 80.0 - 100.0 fl | EXTERNAL | | | | performed at [facility] [place] | | LAB | | | | [address];[place] | | | | | | [address] | | | | + + + + + + | MCH | 32.2Comment: Testing | 27.0 - 34.0 pg | EXTERNAL | | | | performed at [facility] [place] | | LAB | | | | [address];[place] | | | | | | [address] | | | | + + + + + + | MCHC | 33.3Comment: Testing | 32.0 - 35.5 | EXTERNAL | | | | performed at [facility] [place] | g/dL | LAB | | | | [address];[place] | | | | | | [address] | | | | + + + + + + | RDW-CV | 56.4 (H)Comment: Testing | 37 - 53 fl | EXTERNAL | | | | performed at [facility] [place] | | LAB | | | | [address];[place] | | | | | | [address] | | | | + + + + + + | Platelet | 178Comment: Testing | 150 - 400 K/uL | EXTERNAL | | | Count | performed at [facility] [place] | | LAB | | | Plasma | [address];[place] | | | | | | [address] | | | | + + + + + + | MPV | 8.1Comment: Testing | fl | EXTERNAL | | | | performed at [facility] [place] | | LAB | | | | [address];[place] | | | | | | [address] | | | | + + + [...] | | | Patient | performed at [facility] [place] | | LAB | | | | [place] | | | | | | [address] | | | | + + + [...] | | | | | performed at [facility] | | | | | | [address] [facility];[place] | | | | | | [address] | | | | + + + [...] | | | | | performed at [facility] | | | | | | [place] [facility];[place], [place] | | | | | | [address] | | | | + + + [...] EXTERNAL | | | | performed at [facility], [address] | | LAB | | | | [place], | | | | | | [place] [address] | | | | + + + + + + | Non- | 3.27 (L)Comment: Testing | 4.20 - 5.70 | EXTERNAL | | | Red Blood | performed at [facility], [address] | M/uL | LAB | | | Cells | [address] [place], | | | | | Counted | [place] [address] | | | | + + + + + + | Hemoglobin | 10.4 (L)Comment: Testing | 13.2 - 17.0 | EXTERNAL | | | | performed at [facility], [address] | g/dL | LAB | | | | [address], | | | | | | [place] [address] | | | | + + + + + + | Hematocrit, | 32.2 (L)Comment: Testing | 39.0 - 50.0 % | EXTERNAL | | | POC | performed at [facility], [address] | | LAB | | | | [address], | | | | | | [place] [address] | | | | + + + + + + | MCV | 98.6Comment: Testing | 80.0 - 100.0 fl | EXTERNAL | | | | performed at [facility], [address] | | LAB | | | | [address], | | | | | | [place] [address] | | | | + + + + + + | MCH | 31.9Comment: Testing | 27.0 - 34.0 pg | EXTERNAL | | | | performed at [facility], [address] | | LAB | | | | [address], | | | | | | [place] [address] | | | | + + + + + + | MCHC | 32.4Comment: Testing | 32.0 - 35.5 | EXTERNAL | | | | performed at [facility], [address] | g/dL | LAB | | | | [address], | | | | | | [place] [address] | | | | + + + + + + | RDW-CV | 56.9 (H)Comment: Testing | 37 - 53 fl | EXTERNAL | | | | performed at [facility], [address] | | LAB | | | | [address], | | | | | | [place] [address] | | | | + + + + + + | Platelet | 168Comment: Testing | 150 - 400 K/uL | EXTERNAL | | | Count | performed at [facility], [address] | | LAB | | | Plasma | [place], | | | | | | [place] [address] | | | | + + + + + + | MPV | 8.7Comment: Testing | fl | EXTERNAL | | | | performed at [facility], [address] | | LAB | | | | [address], | | | | | | [place] [address] | | | | + + + + + + | Differentia | AUTOMATEDComment: | | EXTERNAL | | | l Type | Testing performed at | | LAB | | | | [facility], [address] | | | | | | [place] | | | | | | [address] | | | | + + + + + + | % Segmented | 81.1Comment: Testing | % | EXTERNAL | | | | performed at [facility], [address] | | LAB | | | Neutrophils | [address], | | | | | | [place] [address] | | | | + + + + + + | % | 8.6Comment: Testing | % | EXTERNAL | | | Lymphocytes | performed at [facility], [address] | | LAB | | | | [address], | | | | | | [place] [address] | | | | + + + + + + | % Monocytes | 7.2Comment: Testing | % | EXTERNAL | | | | performed at [facility], [address] | | LAB | | | | [address], | | | | | | [place] [address] | | | | + + + + + + | % | 2.2Comment: Testing | % | EXTERNAL | | | Eosinophils | performed at [facility], [address] | | LAB | | | | [address], | | | | | | [place] [address] | | | | + + + + + + | % Basophils | 0.9Comment: Testing | % | EXTERNAL | | | | performed at [facility], [address] | | LAB | | | | [address], | | | | | | [place] [address] | | | | + + + + + + | Absolute | 6.5Comment: Testing | 1.9 - 7.4 K/uL | EXTERNAL | | | Segmented | performed at [facility], [address] | | LAB | | | Neutrophils | [address], | | | | | | [place] [address] | | | | + + + + + + | Absolute | 0.7 (L)Comment: Testing | 1.0 - 3.9 K/uL | EXTERNAL | | | Lymphocytes | performed at [facility], [address] | | LAB | | | | [address], | | | | | | [place] [address] | | | | + + + + + + | Absolute | 0.6Comment: Testing | 0 - 0.8 K/uL | EXTERNAL | | | Monocytes | performed at [facility], [address] | | LAB | | | | [place], | | | | | | [place] [address] | | | | + + + + + + | Absolute | 0.2Comment: Testing | 0 - 0.5 K/uL | EXTERNAL | | | Eosinophils | performed at [facility], [address] | | LAB | | | [address], | | | | | | [place] [address] | | | | + + + + + + | Absolute | 0.1Comment: Testing | 0 - 0.1 K/uL | EXTERNAL | | | Basophils | performed at [facility], [address] | | LAB | | | | [address], | | | | | | [place] [address] | | | | + + + [...] mmol/L | LAB | | | | [place] [place], | | | | | | [place] [address] | | | | + + + + + + | K | 4.2Comment: Testing | 3.5 - 4.9 | EXTERNAL | | | | performed at [facility], [address] | mmol/L | LAB | | | | [address], | | | | | | [place] [address] | | | | + + + + + + | Cl | 100Comment: Testing | 99 - 109 mmol/L | EXTERNAL | | | | performed at [facility], [address] | | LAB | | | | [address], | | | | | | [place] [address] | | | | + + + + + + | CO2 | 29Comment: Testing | 23 - 32 mmol/L | EXTERNAL | | | | performed at [facility], [address] | | LAB | | | | [address], | | | | | | [place] [address] | | | | + + + + + + | Anion Gap | 9Comment: Testing | 5 - 20 mmol/L | EXTERNAL | | | | performed at [facility], [address] | | LAB | | | | [address], | | | | | | [place] [address] | | | | + + + + + + | Glucose, | 133 (H)Comment: Testing | 65 - 99 mg/dL | EXTERNAL | | | Fasting | performed at [facility], [address] | | LAB | | | | [address], | | | | | | [place] [address] | | | | + + + + + + | BUN | 31 (H)Comment: Testing | 8 - 25 mg/dL | EXTERNAL | | | | performed at [facility], [address] | | LAB | | | | [address], | | | | | | [place] [address] | | | | + + + + + + | Creatinine | 1.28Comment: Testing | 0.70 - 1.30 | EXTERNAL | | | | performed at [facility], [address] | mg/dL | LAB | | | | [address], | | | | | | [place] [address] | | | | + + + + + + | BUN/Creatin | 24Comment: Testing | | EXTERNAL | | | ine Ratio | performed at [facility], [address] | | LAB | | | | [address], | | | | | | [place] [address] | | | | + + + + + + | Calcium | 9.1Comment: Testing | 8.5 - 10.2 | EXTERNAL | | | | performed at [facility], [address] | mg/dL | LAB | | | | [address], | | | | | | [place] [address] | | | | + + + + + + | Protein, | 6.4Comment: Testing | 6.3 - 8.2 g/dL | EXTERNAL | | | Total | performed at [facility], [address] | | LAB | | | | [address], | | | | | | [place] [address] | | | | + + + + + + | Albumin | 3.6Comment: Testing | 3.3 - 4.8 g/dL | EXTERNAL | | | | performed at [facility], [address] | | LAB | | | | [address], | | | | | | [place] [address] | | | | + + + + + + | Globulin | 2.8Comment: Testing | 1.3 - 4.9 g/dL | EXTERNAL | | | | performed at [facility], [address] | | LAB | | | | [address], | | | | | | [place] [address] | | | | + + + + + + | A/G Ratio | 1.3Comment: Testing | 1.0 - 2.4 | EXTERNAL | | | | performed at [facility], [address] | | LAB | | | | [address], | | | | | | [place] [address] | | | | + + + + + + | Bilirubin | 1.3Comment: Testing | 0.1 - 1.5 mg/dL | EXTERNAL | | | Total | performed at [facility], [address] | | LAB | | | | [address], | | | | | | [place] [address] | | | | + + + + + + | ALP, | 61Comment: Testing | 35 - 115 U/L | EXTERNAL | | | External | performed at [facility], [address] | | LAB | | | | [address], | | | | | | [place] [address] | | | | + + + + + + | AST | 26Comment: Testing | 10 - 45 U/L | EXTERNAL | | | | performed at [facility], [address] | | LAB | | | | [address], | | | | | | [place] [address] | | | | + + + + + + | ALT | 15Comment: Testing | 10 - 65 U/L | EXTERNAL | | | | performed at [facility], [address] | | LAB | | | | [place], | | | | | | [place] [address] | | | | + + + [...] | | | | | | at [facility], [address] | | | | | | [place], | | | | | | [place] [address] | | | | + + + [...] chronic (HCC) Atrial fibrillation | + + documented in this encounter
--- OUTSIDE RECORDS SUMMARY | ~2019-12-17 | XMS | Encounter Summary ---
Demographics + + + | Address | [address] | | | [place] [address] | + + + | Home Phone [...] | | | | [place] [address] | | + + + + + | Juana Gasca | ECON | [address] | | | | | [place] | | | | | [address] | | + + + + + | Chad Gasca | ECON | Unknown | | + + + + + Care Team Providers + +------+ + | Care [employer] Human Performance Professor Name | Role | Phone | [...] | | | | | [place] [address] | | | | | | [phone] | | | +--------+--------+ + + + [...] | | | | | [place] | | | | | | [address] | | | | | | | [...]
--- OUTSIDE RECORDS SUMMARY | ~2019-12-17 | XMS | Encounter Summary ---
Demographics + + + | Address | [address] | | | [place] [address] | + + + | Home Phone [...] | | | | [place] [address] | | + + + + + | Juana Ventura | ECON | [address] | | | | | [place] | | | | | [address] | | + + + + + | Chad Ventura | ECON | Unknown | | + + + + + Care Team Providers + +------+ + | Care Program Paraprofessional Name | Role | Phone | + +------+ + PCP | Unavailable | + +------+ + Encounter Details +--------+ + + + + | Date | Type | Department | Care Team | Description | +--------+ + + + + | 11/05/ | Hospital | [facility] | Jin Epps MD | Aortic Valve | | 2008 | Encounter | [facility] | [address] | Disorder | | | | CLINICAL DECISION | [place] [address] | | | | | [address] [place] [address] [address] | [phone] | | | | | [place], [place] | | | | | | [address] | | | | | | [phone] | | | +--------+ + + + [...] | | | | | [place] | | | | | | [address] | | | | | | | [...] + +--------+ + + + | ECHO TRANSESOPHAGEAL | Routin | 11/05/2008 | | Results for this | | (HELIO) | e | 2:17 PM | | procedure are in the | | | | PDT | | results section. | + +--------+ + + + documented in this encounter Results ECHO Transesophageal (HELIO) (11/05/2008 2:17 PM PDT) + + | Specimen | + + | | + + + + + | Narrative | Performed At | + + + | [id number] | | | Page 1 [facility] NAME: | | | [place] [address] MEDICAL RECORD #: | | | [id number] | | | DATE OF : 1935 ORDER | | | NUMBER: [id number] EXAM DATE/TIME: 11/05/2008 13:07 PERFORMING | | | PHYSICIAN: Jin Epps MD ORDER DETAIL: [id number] ORDER | | | DESCRIPTION: ECHO TRANSESOPHAGEAL ECHOCARDIOGRAM | | | | | | INDICATIONS CONCLUSIONS 1. LV was | | | poorly seen but overall systolic function appears normal. 2. Mild | | | spontaneous echo contrast present in the left atrium. 3. No evidence | | | for intra-atrial shunt by bubble study. 4. Mild mitral regurgitation | | | is present. 5. 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 6. No clot visualized. FINDINGS -------- | | | Procedure: The patient was brought to the catheterization laboratory | | | holding area in the fasting state. Informed consent was obtained | | | after benefits and risks of the procedure were discussed with the | | | patient including but not limited to the potential for esophageal | | | puncture and . The oropharynx was anesthetized with 1% | | | Hurricane spray. After conscious sedation, the transesophageal probe | | | was advanced into the esophagus and multiple projections of the | | | cardiovascular structures were obtained. This was followed by | | | advancement of the probe into the stomach for transgastric imaging. | | | Finally, interrogation of the descending aorta and arch was | | | performed. The probe was removed. The patient tolerated the | | | procedure well. There were no immediate complications. | | | Medications: 2 mg of Versed and Medications: 50 mcg of Fentanyl was | | | given intraveonously for conscious sedation. Left Ventricle: LV was | | | poorly seen but overall systolic function appears normal. Left | | | Atrium: The left atrium is moderately dilated. Left Atrium: Mild | | | spontaneous echo contrast present in the left atrium. Right | | | Ventricle: The right ventricle is normal in size and function. Right | | | Atrium: Pacemaker wire seen in the right atrial cavity. Interatrial | | | Septum: No evidence for intra-atrial shunt by bubble study. | | | Interatrial Septum: No shunt seen with color Doppler. Aortic Valve: | | | There is mild aortic valve sclerosis without stenosis. Aortic Valve: | | | Trace amount of aortic regurgitation. Aortic Valve: Moderate aortic | | | stenosis with peak/mean pressure gradient of {AV maxPG} / {AV meanPG}, | | | the aortic valve area by continuity equation is {JULIAN}. Mitral Valve: | | | Mild mitral regurgitation is present. Mitral Valve: There is a | | | mechanical prosthetic mitral valve of the bileaflet type. Mitral | | | Valve: No vegetation visualized. Tricuspid Valve: The tricuspid valve | | | appears structurally normal. Trace/Mild (physiologic) regurgitation. | | | Tricuspid Valve: Trace tricuspid regurgitation present. Pulmonic | | | Valve: The pulmonic valve is normal. Aorta: Ascending aorta, aortic | | | arch and descending thoracic aorta are of normal caliber with no | | | significant atherosclerotic disease. Mass: No mass visualized. | | | Thrombus: No clot visualized. Pericardium: The pericardium is normal. | | | MEASUREMENTS Internet Researcher: CM Authenticated | | | by: Jin Epps MD Report Date/Time: 11-06-2008 17:11:22 | | + + + + + | Procedure Note | + + | Raudel Aguillon - 01/28/2019 1:25 AM PDT [id number] | | Page [address] [place] [address] NAME: DENISE [place], | | [place] [address] : ACCOUNT #: | | [id number]: DATE OF : 1935ORDER NUMBER: | | [id number] DATE/TIME: 11/05/2008 13:07PERFORMING PHYSICIAN: Jin Epps MDORDER | | DETAIL: [id number] DESCRIPTION: ECHO TRANSESOPHAGEAL | | ECHOCARDIOGRAM INDICATIONS | | CONCLUSIONS 1. LV was poorly seen but overall systolic function | | appears normal.2. Mild spontaneous echo contrast present in the left atrium.3. No | | evidence for intra-atrial shunt by bubble study.4. Mild mitral regurgitation is | | present.5. 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 No | | clot visualized. FINDINGS--------Procedure: The patient was brought to the | | catheterization laboratory holding area in the fasting state. Informed consent was | | obtained after benefits and risks of the procedure were discussed with the patient | | including but not limited to the potentialfor esophageal puncture and . The | | oropharynx was anesthetized with 1% Hurricane spray. After conscious sedation, the | | transesophageal probe was advanced into the esophagus and multiple projections of the | | cardiovascular structures were obtained.This was followed by advancement of the probe | | into the stomach for transgastric imaging. Finally, interrogation of the descending | | aorta and arch was performed. The probe was removed. The patient tolerated the | | procedure well. There were no immediate complications.Medications: 2 mg of Versed | | andMedications: 50 mcg of Fentanyl was given intraveonously for conscious sedation.Left | | Ventricle: LV was poorly seen but overall systolic function appears normal.Left Atrium: | | The left atrium is moderately dilated.Left Atrium: Mild spontaneous echo contrast | | present in the left atrium.Right Ventricle: The right ventricle is normal in size and | | function.Right Atrium: Pacemaker wire seen in the right atrial cavity.Interatrial | | Septum: No evidence for intra-atrial shunt by bubble study.Interatrial Septum: No shunt | | seen with color Doppler.Aortic Valve: There is mild aortic valve sclerosis without | | stenosis.Aortic Valve: Trace amount of aortic regurgitation.Aortic Valve: Moderate | | aortic stenosis with peak/mean pressure gradient of {AV maxPG} / {AV meanPG}, the aortic | | valve area by continuity equation is {JULIAN}.Mitral Valve: Mild mitral regurgitation is | | present.Mitral Valve: There is a mechanical prosthetic mitral valve of the bileaflet | | type.Mitral Valve: No vegetation visualized.Tricuspid Valve: The tricuspid valve appears | | structurally normal. Trace/Mild (physiologic) regurgitation.Tricuspid Valve: Trace | | tricuspid regurgitation present.Pulmonic Valve: The pulmonic valve is normal.Aorta: | | Ascending aorta, aortic arch and descending thoracic aorta are of normal caliber with no | | significant atherosclerotic disease.Mass: No mass visualized.Thrombus: No clot | | visualized.Pericardium: The pericardium is normal. MEASUREMENTS | | Internet Researcher: STEFANIEuthenticated by: Jin LATHAMjostin Date/Time: 11-06-2008 17:11:22 | |Right Ventricle: The right ventricle is normal in size and function. | |Right Atrium: Pacemaker wire seen in the right atrial cavity. | |Interatrial Septum: No evidence for intra-atrial shunt by bubble study. | |Interatrial Septum: No shunt seen with color Doppler. | |Aortic Valve: There is mild aortic valve sclerosis without stenosis. | |Aortic Valve: Trace amount of aortic regurgitation. | |Aortic Valve: Moderate aortic stenosis with peak/mean pressure gradient of {AV maxPG} / {AV meanPG}, the aortic valve area by continuity equation is {JULIAN}. | |Mitral Valve: Mild mitral regurgitation is present. 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 | |Mitral Valve: No vegetation visualized. | |Tricuspid Valve: The tricuspid valve appears structurally normal. Trace/Mild (physiologic) regurgitation. | |Tricuspid Valve: Trace tricuspid regurgitation present. | |Pulmonic Valve: The pulmonic valve is normal. | |Aorta: Ascending aorta, aortic arch and descending thoracic aorta are of normal caliber wit h no significant atherosclerotic disease. | |Mass: No mass visualized. | |Thrombus: No clot visualized. | |Pericardium: The pericardium is normal. | | | |MEASUREMENTS | | | | | |Internet Researcher: PRESTON | |Authenticated by: Jin Epps MD | |Report Date/Time: 11-06-2008 17:11:22 | + + documented in this encounter Visit Diagnoses + + | Diagnosis | + + | Aortic valve disorder Aortic valve disorders | + + documented in this encounter"
--- OUTSIDE RECORDS SUMMARY | ~2019-12-17 | XMS | Encounter Summary ---
Demographics + + + | Address | [address] | | | [place] [address] | + + + | Home Phone [...] | | | | [place] [address] | | + + + + + | Juana Gasca | ECON | [address] | | | | | [place] | | | | | [address] | | + + + + + | Chad Gasca | ECON | Unknown | | + + + + + Care Team Providers + +------+ + | Care Ct Scan Tech Name | Role | Phone | + [...] + | 12/28/ | Office | [facility] | [place], | COPD (chronic | | 2012 | Visit | PULMONARY [address] | Florence You MD | obstructive | | | | [place], | | pulmonary disease) | | | | [place] [address] | | ([facility]) (Primary Dx); | | | | [phone] | | Obstructive sleep | | | [...] an overnight oxy gen test through [facility]. You will warp picker a box at the [facility], wear th e finger probe through the night and then return the box for a download the next day. Do the test on your BiPAP. Call the [facility] before you pick it up to make sure they ibarra ve a box available. Bring a download to your next appointment. documented in this encounter Progress Notes Florence La MD - 12/28/2012 2:37 PM PDTFormatting of this note might be differe nt from the original. Pulmonary Follow Up Note MD Jody [facility] [address] [place], [address] HPI Serge Gasca is a 77 y.o. male patient of Timo Lorenzana here today for follo w up of COPD. Since in last time, he had a brief hospitalization in October at [facility] for a COPD exace rbation. We called [...] Take 40 mg by mouth every morning. Hhifiknlcji-Rhhwyjjph-Wrr C-Mn (GLUCOSAMINE 1500 COMPLEX PO) Take 1,500 [...] made to ensure accuracy; however, inadvertent computerized restaurant delivery driver errors may be pre sent. documented in [...] [place] | | | | | | [address] | | | | | | | [...]
--- OUTSIDE RECORDS SUMMARY | ~2019-12-17 | XMS | Encounter Summary ---
Demographics + + + | Address | [address] | | | [place] [address] | + + + | Home Phone | | + + + | Preferred Language | Unknown | + + + | Marital Status | | + + + | Denominational Affiliation | 1013 | + + + [...] | | | | [place] [address] | | + + + + + | Juana Gasca | ECON | [address] | | | | | [place] | | | | | [address] | | + + + + + | Chad Gasca | ECON | Unknown | | + + + + + Care Team Providers + +------+ + | Care Cardiac Monitor Name | Role | Phone | + [...] | pulmonary disease, | | | | [place], | | unspecified COPD | | | | [place] [address] | | type (HCC) (Primary | | | | [phone] | | Dx); Obstructive | | | [...] He is currently on 1 LPM at [facility] ht bled in to his BiPAP. He [...] the lungs Twice Daily. 3 each 3 Hjafeqwbjip-Mzxadmbsl-Ecq C-Mn (GLUCOSAMINE 1500 COMPLEX PO) Take 1,500 [...] Chronic obstructive pulmonary disease, unspecified COPD type ([facility]) J44.9 496 Doing well on current medications. He is very excited to start exercising again right now. He has lost a lot of weight following his valve replacement, and has since been steadily regaining it. 2. Obstructive sleep apnea on BiPAP G47.33 327.23 Reports good control and compliance, and no issues. 3. Nocturnal hypoxemia due to emphysema ([facility]) J43.9 492.8 We had tried weaning this [...] made to ensure accuracy; however, inadvertent computerized specialty transformer assembler errors may be pre sent. documented in [...] [place] | | | | | | [address] | | | | | | | [...]
--- OUTSIDE RECORDS SUMMARY | ~2019-12-17 | XMS | Encounter Summary ---
Demographics + + + | Address | [address] | | | [place] [address] | + + + | Home Phone [...] | | | | [place] [address] | | + + + + + | Juana Gasca | ECON | [address] | | | | | [place] | | | | | [address] | | + + + + + | Chad Gasca | ECON | Unknown | | + + + + + Care Team Providers + +------+ + | Care Radio Maintainer Name | Role | Phone | + +------+ + | Timo Lorenzana | PCP | | | MD | | | + +------+ + Encounter Details +--------+ + + + + | Date | Type | Department | Care Team | Description | +--------+ + + + + | 12/27/ | Orders Only | [facility] | Provider, | | | 2018 | | SYSTEM GENERIC OP | MD [address] | | | | | [address] | [place]sie [place] | | | | | [address] [place], [place] | [place] [address] | | | | | [address] | | | | | | [phone] | | | +--------+ + + + [...] [place] | | | | | | [address] | | | | | | | [...]
--- OUTSIDE RECORDS SUMMARY | ~2019-12-17 | XMS | Encounter Summary ---
Demographics + + + | Address | [address] | | | [place] [address] | + + + | Home Phone [...] | | | | [place] [address] | | + + + + + | Juana Gasca | ECON | [address] | | | | | [place] | | | | | [address] | | + + + + + | Chad Gasca | ECON | Unknown | | + + + + + Care Team Providers + +------+ + | Care Surgical Aides Teacher Name | Role | Phone | [...] | pulmonary disease, | | | | [place], | | unspecified COPD | | | | [place] [address] | | type (HCC) (Primary | | | | [phone] | | Dx); Obstructive | | | [...] He is currently on 1 LPM at [facility] ht bled in to his BiPAP. He [...] the lungs Twice Daily. 3 each 3 Wjneoyluffh-Upvwymfaj-Kiw C-Mn (GLUCOSAMINE 1500 COMPLEX PO) Take 1,500 [...] Chronic obstructive pulmonary disease, unspecified COPD type ([facility]) J44.9 496 Doing well on current medications. He is very excited to start exercising again right now. He has lost a lot of weight following his valve replacement, and has since been steadily regaining it. 2. Obstructive sleep apnea on BiPAP G47.33 327.23 Reports good control and compliance, and no issues. 3. Nocturnal hypoxemia due to emphysema ([facility]) J43.9 492.8 We had tried weaning [...] made to ensure accuracy; however, inadvertent computerized early childhood education coordinator errors may be pre sent. documented in [...] [place] | | | | | | [address] | | | | | | | [...]
--- OUTSIDE RECORDS SUMMARY | ~2019-12-17 | XMS | Encounter Summary ---
Demographics + + + | Address | [address] | | | [place] [address] | + + + | Home Phone [...] | | | | [place] [address] | | + + + + + | Juana Gasca | ECON | [address] | | | | | [place] | | | | | [address] | | + + + + + | Chad Gasca | ECON | Unknown | | + + + + + Care Team Providers + +------+ + | Care Head Batcher Name | Role | Phone | + [...] | 03/06/ | Refill | [facility] [place] | Abhinav, | Medication Refill | | 2015 | | PULMONARY [address] | Florence You MD | | | | | [place], | | | | | | [place] [address] | | | | | | [phone] | | | +--------+--------+ + + + [...] [place] | | | | | | [address] | | | | | | | [...]
--- OUTSIDE RECORDS SUMMARY | ~2019-12-17 | XMS | Encounter Summary ---
Demographics + + + | Address | [address] | | | [place] [address] | + + + | Home Phone [...] | | | | [place] [address] | | + + + + + | Juana Gasca | ECON | [address] | | | | | [place] | | | | | [address] | | + + + + + | Chad Gasca | ECON | Unknown | | + + + + + Care Team Providers + +------+ + | Care Nurse Midwife Name | Role | Phone | + [...] + + | 11/13/ | Documentati | [facility] | Spenser Potter, | Other (Implant | | 2020 | on | CARDIOLOGY JULIAN | [address] | Record) | | | | [address] | [place], | | | | | [place] | [place] [address] | | | | | [address] | [phone] | | | | | [phone] | | | +--------+ + + + [...] | | | | | [place], [place] | | | | | | [address] | | | | | | | [...]
--- OUTSIDE RECORDS SUMMARY | ~2019-12-17 | XMS | Encounter Summary ---
Demographics + + + | Address | [address] | | | [place] [address] | + + + | Home Phone | | + + + | Preferred Language | Unknown | + + + | Marital Status | | + + + | Mandaen Affiliation | 1013 | + + + | Race | Unknown | + + + | Ethnic Group | Unknown | + + + Author + + + | Author | [facility] | | | and [place] | + + + | Organization | [facility] | | | [...] | | | | [place] [address] | | + + + + + | Juana Gasca | ECON | [address] | | | | | [place] | | | | | [address] | | + + + + + | Chad Gasca | ECON | Unknown | | + + + + + Care Team Providers + +------+ + | Care Rock Drill Operator Name | Role | Phone | [...] | | | | | [place] [address] | | | | | | [phone] | | | +--------+ + + + [...] [place] | | | | | | [address] | | | | | | | [...]
--- OUTSIDE RECORDS SUMMARY | ~2019-12-17 | XMS | Encounter Summary ---
Demographics + + + | Address | [address] | | | [place] [address] | + + + | Home Phone [...] | | | | [place] [address] | | + + + + + | Juana Gasca | ECON | [address] | | | | | [place] | | | | | [address] | | + + + + + | Chad Gasca | ECON | Unknown | | + + + + + Care Team Providers + +------+ + | Care Purchasing Administrator Name | Role | Phone | + +------+ + | Timo Lorenzana | PCP | | | MD | | | + +------+ + Encounter Details +--------+ + + + + | Date | Type | Department | Care Team | Description | +--------+ + + + + | 06/25/ | Orders Only | [facility] | [place], | MARY (obstructive | | 2014 | | MED CTR PULMONARY | Florence You MD | sleep apnea) | | | | FUNCTION [address] | | | | | | [place], | | | | | | [place] [address] | | | | | | [phone] | | | +--------+ + + + [...] [place] | | | | | | [address] | | | | | | | [...]
--- OUTSIDE RECORDS SUMMARY | ~2019-12-17 | XMS | Encounter Summary ---
Demographics + + + | Address | [address] | | | [place] [address] | + + + | Home Phone [...] | | | | [place] [address] | | + + + + + | Juana Gasca | ECON | [address] | | | | | [place] | | | | | [address] | | + + + + + | Chad Gasca | ECON | Unknown | | + + + + + Care Team Providers + +------+ + | Care Door Glass Installer Name | Role | Phone | [...] + + | 12/02/ | Telephone | [facility] | Elif Hylton, | Medication Question | 2019 | | CARDIOLOGY DIAMOND | [address] | (Enoxaparin) | | | | [address] | [place] | | | | | [place] | [address] | | | | | [address] | | | | | | [phone] | | | +--------+ + + + [...] Miscellaneous Notes Telephone Encounter - Pramod Carranza Instructor Creeler - 12/03/2019 3:32 PM PDTStart Lo venox 5 days prior to surgery, at that time stop warfarin. Restart Lovenox post surgery, and stay on until INR is 2.5. Informed Anh, she states understanding with no further questions. elephone Encounter - Pramod Carranza Instructor Creeler - 12/03/2019 3:32 PM PDT----- Message from [...] PDT To: MD Beata Brandtantonella Serge Morrisonn [id number] ----- Message ----- From: Elif Hylton MD [...] | | | | | [place] | | | | | | [address] | | | | | | | [...]
--- OUTSIDE RECORDS SUMMARY | ~2019-12-17 | XMS | Encounter Summary ---
Demographics + + + | Address | [address] | | | [place] [address] | + + + | Home Phone [...] | | | | [place] [address] | | + + + + + | Juana Gasca | ECON | [address] | | | | | [place] | | | | | [address] | | + + + + + | Chad Gasca | ECON | Unknown | | + + + + + Care Team Providers + +------+ + | Care Neighborhood Aide Name | Role | Phone | [...] + + | 03/18/ | Refill | [facility] | Elif Hylton, | Medication Refill | | 2019 | | CARDIOLOGY JULIAN | [address] | | | | | [address] | [place] | | | | | [place] | [address] | | | | | [address] | | | | | | [phone] | | | +--------+--------+ + + + [...] 2019 | Visit | | MD Asad FIEDLS | | | | | | [place] | | | | | | [address] | | | | | | | [...]
--- OUTSIDE RECORDS SUMMARY | ~2019-12-17 | XMS | Encounter Summary ---
Demographics + + + | Address | [address] | | | [place] [address] | + + + | Home Phone [...] | [facility] | | | and [...] | | | | [place] [address] | | + + + + + | Juana Ventura | ECON | [address] | | | | | [place] | | | | | [address] | | + + + + + | Chad Ventura | ECON | Unknown | | + + + + + Care Team Providers + +------+ + | Care Roadside Mechanic Name | Role | Phone | [...] + + | 07/19/ | Office | [facility] | [place], | Cough (Primary Dx); | | 2012 | Visit | PULMONARY [address] | Florence You MD | COPD (chronic | | | | [place], | | obstructive | | | | [place] [address] | | pulmonary disease) | | | | [phone] | | ([facility]); MARY | | | | | | [...] 2:35 PM PSTFebruary 2012 Denise Ventura [address] [place] [address] Dear Denise: Thank you for enrolling in [employer]. Please follow the instructions below to view your [employer] online medical record. [employer] allows you to send secure messages to your doctor, view you r test results, renew your prescriptions, schedule appointments, and more. How Do I Sign Up? 1. In your Internet browser, go to [email or web address] 2. Click on the Sign Up Now link in the Sign In box. This will take you to the [facility] Sign Up page. 3. Enter your [employer] access code exactly as it appears below. You will not need to use this code after you sign up. If you do not sign up before the expiration date, you must requ est a new code through your [facility]. [employer] Access Code: [email or web address] Expires: 09/17/2012 14:35 4. Fill in the last four digits of your Social Security Number (xxxx) and Date of (mm/dd/yyyy) when asked and click Submit. You will now be asked to create a [employer] ID. 5. Create a [employer] ID. This will be your [employer] login ID. Your login ID cannot be sharpe ged, so think of one that is secure and easy to remember. 6. Create a [employer] password. You can change your password at any time. 7. Enter your Password Reset Question and Answer. This can be used at a later time if yo u forget your password. 8. Enter your e-mail address. You will receive e-mail notification when new information is available in [employer]. 9. Click Sign Up. You may now view your medical record. Additional Information If you have questions, you can email [email or web address] or call [phone] to talk to our [facility] [place] [facility] [employer] [facility] care team. Please remember, [employer] should NOT be used fo r urgent [...] any significant nasal congestion, he is using Wilbarger Nasal [place] to treat any issu es in his [...] and Monday. Take 10mg all other days Llhxgghwjjs-Hdluztukt-Qxh C-Mn (GLUCOSAMINE 1500 COMPLEX PO) Take 1,500 [...] [place] | | | | | | [address] | | | | | | | [...] Performed At | + + + | [facility] | [place] | | Department [address] [facility] | [facility] | | [ rep [address]] [ rep [facility] | | st zip] Signed | - IMAGING | | | | | Patient Name: DENISE VENTURA Physician: | | | EDER. : 1935 Age: 77 Sex: M Unit #: [id number] | | | Exam Date: 07/19/12 Location: [facility] | | | Report #: [id number] Page: | | | %(RAD)RES..mtdd.print.filter("pg") of %(RAD) | | | RES..mtdd.print.filter("tpg") | | | | | | Accession Number: [id number] | | | TWO-VIEW CHEST CLINICAL HISTORY: [...] Transcribed Date/Time: | | | 07/19/2012 19:42 Flight Operations Inspector: | | | <<Signature on File>> | | | | | | Orlando Mehta MD07/20/12 0836 <Electronically signed by | | | Orlando Mehta MD> Orlando Mehta MD 07/19/12 | | | 8311 Flight Operations Inspector: Lj [id number] | | | Florence La MD | | + + + + + + + + | Performing | Address | City/State/Zipcode | Phone Number | | Organization | | | | + + + + + | [address] | [address] | [place] | [phone] | | [facility] | | [address] | | | - IMAGING | | [...]
--- OUTSIDE RECORDS SUMMARY | ~2019-12-17 | XMS | Encounter Summary ---
Demographics + + + | Address | [address] | | | [place] [address] | + + + | Home Phone [...] | | | | [place] [address] | | + + + + + | Juana Gasca | ECON | [address] | | | | | [place] | | | | | [address] | | + + + + + | Chad Gasca | ECON | Unknown | | + + + + + Care Team Providers + +------+ + | Care Paper Mill Manager Name | Role | Phone | [...] [address] | | | | | [place] [address] | | [address] | | | | | [address] DFB | | [place], [place] | | | | | PLSE GEN | | [address] Phone: | | | | | W/REPL PLSE | | [phone] | | | | | GEN 1 LEAD | | Fax: | | | | | [place] | | [phone] | | | | | INSJ/RPLCMT | | | | | | | PERM DFB | | | | | | | W/TRNSVNS | | | | | | | LDS 1/DUAL | | | | | | | CHMBR MS | | | | | | | [...] + + | 11/12/ | Hospital | [facility] | Spenser Schultz, | Heart block; Heart | | 2019 | Encounter | [facility] | MD [address] | block; Cardiac | | | | LAB [address] [facility] | [place], | pacemaker in situ; | | | | [place], [place] | [place] [address] | Atrial fibrillation, | | | | [address] | [phone] | chronic (HCC); S/P | | | | [phone] | | MVR (mitral valve | | [...] in this encounter Discharge Instructions Instructions Mansoor Srtong, DARCI - 11/13/2019Make sure your INR is between 2.5 an d 3.5 Take 10 mg of warfarin per day, get an INR next week and weekly until between 2.5 and 3.5 ( this is important!) Get some press and seal to cover the incision for one week when you shower [phone] Calix cell to send picture of incision in one week GENERATOR CHANGE Discharge Instructions FOLLOW-UP APPOINTMENTS First, be sure to come for all of your post-operative check-ups. The first visit is usually to check that your incision is healing properly. You will be seen by the Nurse or Nurse Pra ctitioner in approximately 7-10 days after pacemaker implantation. Your appointments will be at the [facility] in [place] across from the [facility]. The address is [place], [place]. The office is located on the 3rd floor. This appointment should already be scheduled for you, but if not, please call [phone] to schedule your appointment. INCISION SITE CARE [...] might be different fr om the original. [facility] SERVICE: ELECTROPHYSIOLOGY INTERVAL H & P [...] tablet Take 1,000 mcg by mouth daily. Tkbruckcroy-Yvufsjxax-Ngt C-Mn (GLUCOSAMINE 1500 COMPLEX PO) Take 3,000 [...] Hx Pacemaker/ICD: 08/30/2007, Guidant Insignia 1291, SN: [id number]. Last interrogation 10/30/2019 MARY, 96% ASSESSMENT: Patient [...] Spenser Schultz MD - 11/13/2019 1:[address] [facility] OPERATIVE REPORT SPENSER SCHULTZ MD Patient: DENISE GASCA Admitting: SPENSER SCHULTZ MR #: [id number] LOC: PT TYPE: Adm Date: 11/13/2019 : [...] a St. Herb model 1882TC, se rial #[id number]. The ventricular lead is a Guidant, model 4088, serial #[id number]. The current pacemaker is a Guidant, model 1291, serial #[id number]. PROCEDURE NOTE: The patient was brought to [...] The lead was attached to a new [employer] Accolade MRI compatible pacemaker (model L310, serial #[id number]). Vishal t device was placed into the [...] 81 mg/day. 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 Current pacemaker is at end-of-life Post-operative Diagnosis: Same Procedure(s): Permanent pacemaker generator change out. The dual-chamber pacemaker was melida ngraded to a single-chamber device. The atrial lead was capped off. [employer] scientific mackenzie forrester Surgeon: Spenser Schultz MD Eyeglass Fitter(s): Sam Anesthesia: Monitor Anesthesia care Estimated Blood [...] [place] | | | | | | [address] | | | | | | | [...] | | | | | performed at [facility] | | | | | | [facility];[place], [place] | | | | | | [address] | | | | + + + + + + + + | Specimen | + + | Blood | + + + + + + + | Performing | Address | City/State/Zipcode | Phone Number | | Organization | | | | + + + + + | [facility] | [address] | [place] [address] | [phone] | + + + + + Basic [...] | | | | | performed at [facility] | | | | | | [facility];[place], [place] | | | | | | [address] | | | | + + + + + + + + | Specimen | + + | Blood | + + + + + + + | Performing | Address | City/State/Zipcode | Phone Number | | Organization | | | | + + + + + | [facility] | [address] | [place] [address] | [phone] | + + + + + documented [...]
--- OUTSIDE RECORDS SUMMARY | ~2019-12-17 | XMS | Encounter Summary ---
Demographics + + + | Address | [address] | | | [place] [address] | + + + | Home Phone [...] | | | | [place] [address] | | + + + + + | Juana Gasca | ECON | [address] | | | | | [place] | | | | | [address] | | + + + + + | Chad Gasca | ECON | Unknown | | + + + + + Care Team Providers + +------+ + | Care Geodetic Surveyor Technologist Name | Role | Phone | [...] | | | | | [place] [address] | | | | | | [phone] | | | +--------+ + + + [...] [place] | | | | | | [address] | | | | | | | [...]
--- OUTSIDE RECORDS SUMMARY | ~2019-12-17 | XMS | Encounter Summary ---
Demographics + + + | Address | [address] | | | [place] [address] | + + + | Home Phone [...] | | | | [place] [address] | | + + + + + | Juana Gasca | ECON | [address] | | | | | [place] | | | | | [address] | | + + + + + | Chad Gasca | ECON | Unknown | | + + + + + Care Team Providers + +------+ + | Care Coloring Room Worker Name | Role | Phone | [...] MD | phlegm) | | | | [place], | | | | | | [place] [address] | | | | | | [phone] | | | +--------+ + + + [...] solution ordered. Advair and ProAir refilled at [facility]'s request. elepho ne Encounter - Florence [...] | | | | | [place] | | | | | | [address] | | | | | | | [...]
--- OUTSIDE RECORDS SUMMARY | ~2019-12-17 | XMS | Encounter Summary ---
Demographics + + + | Address | [address] | | | [place] [address] | + + + | Home Phone [...] | | | | [place] [address] | | + + + + + | Juana Gasca | ECON | [address] | | | | | [place] | | | | | [address] | | + + + + + | Chad Gasca | ECON | Unknown | | + + + + + Care Team Providers + +------+ + | Care Extrusion Former Name | Role | Phone | [...] [address] | | | | | [place] [address] | | [address] | | | | | IM[address] DFB | | [place], [place] | | | | | PLSE GEN | | [address] Phone: | | | | | W/REPL PLSE | | [phone] | | | | | GEN 1 LEAD | | Fax: | | | | | [place] | | [phone] | | | | | INSJ/RPLCMT | | | | | | | PERM DFB | | | | | | | W/TRNSVNS | | | | | | | LDS 1/DUAL | | | | | | | CHMBR [place] | | | | | | | [...] + + | 11/12/ | Surgery | [facility] | Spenser Schultz, | CV EP PM GEN CHANGE | | 2019 | | [facility] | [address] | | | | | LAB [address] [facility] | [place], | | | | | [place], [place] | [place] [address] | | | | | [address] | [phone] | | | | | [phone] | | | +--------+---------+ + + + [...] incision for one week when you shower [phone] GAMEVIL cell to send picture of incision in one week GENERATOR CHANGE Discharge Instructions FOLLOW-UP APPOINTMENTS First, be sure to come for all of your post-operative check-ups. The first visit is usually to check that your incision is healing properly. You will be seen by the Nurse or Nurse Pra ctitioner in approximately 7-10 days after pacemaker implantation. Your appointments will be at the [facility] in [facility] from the regional medical center. The address is [address] [place] [address]. The office is located on the 3rd floor. This appointment should already be scheduled for you, but if not, please call [phone] to schedule your appointment. INCISION SITE CARE [...] to speak with the nurse at [phone]. There are certain signs of infection to [...] be different fr om the original. [facility] SERVICE: ELECTROPHYSIOLOGY INTERVAL H & [...] tablet Take 1,000 mcg by mouth daily. Ssylxjuqqer-Nhjdckodk-Qnn C-Mn (GLUCOSAMINE 1500 COMPLEX PO) Take 3,000 [...] Hx Pacemaker/ICD: 08/30/2007, Guidant Insignia 1291, SN: [id number]. Last interrogation 10/30/2019 MARY, 96% ASSESSMENT: Patient [...] Spenser Schultz MD - 11/13/2019 1:46 PM [facility] OPERATIVE REPORT SPENSER SCHULTZ MD Patient: DENISE GASCA Admitting: SPENSER SCHULTZ MR #: [id number] LOC: PT TYPE: Adm Date: 11/13/2019 : 1935 DATE OF PROCEDURE: 11/13/2019 PROCEDURE: A dual-chamber pacemaker generator change out to a single chamber permanent pac emaker. HISTORY: This 84-year-old gentleman was referred for a pacemaker generator change out [facility] e his current device is at elective [...] a St. Herb model 1882TC, se rial #[id number]. The ventricular lead is a Guidant, model 4088, serial #[id number]. The current pacemaker is a Guidant, model 1291, serial #[id number]. PROCEDURE NOTE: The patient was brought to [...] The lead was attached to a new [employer] Accolade MRI compatible pacemaker (model L310, serial #[id number]). 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 Current pacemaker is at end-of-life Post-operative Diagnosis: Same Procedure(s): Permanent pacemaker generator change out. The dual-chamber pacemaker was melida ngraded to a single-chamber device. The atrial lead was capped off. [employer] scientific mackenzie forrester Surgeon: Spenser Schultz MD Goldsmith Apprentice(s): Sam Anesthesia: Monitor Anesthesia care Estimated Blood [...] [place] | | | | | | [address] | | | | | | | [...] | | | | | performed at [facility] | | | | | | [address];[place], [place] | | | | | | [address] | | | | + + + + + + + + | Specimen | + + | Blood | + + + + + + + | Performing | Address | City/State/Zipcode | Phone Number | | Organization | | | | + + + + + | [facility] | [address] | [place] [address] | [phone] | + + + + + Basic [...] 48 (L)Comment: GFR <60: | >60 | [facility] | | | GFR | CHRONIC KIDNEY [...] | | | | | performed at [facility];[address] | | | | | | [facility];[place], [place] | | | | | | [address] | | | | + + + + + + + + | Specimen | + + | Blood | + + + + + + + | Performing | Address | City/State/Zipcode | Phone Number | | Organization | | | | + + + + + | [facility] | [address] | [place] [address] | [phone] | + + + + + documented [...]
--- OUTSIDE RECORDS SUMMARY | ~2019-12-17 | XMS | Encounter Summary ---
Demographics + + + | Address | [address] | | | [place] [address] | + + + | Home Phone [...] | | | | [place] [address] | | + + + + + | Juana Gasca | ECON | [address] | | | | | [place] | | | | | [address] | | + + + + + | Chad Gasca | ECON | Unknown | | + + + + + Care Team Providers + +------+ + | Care Pin Inserter Name | Role | Phone | + [...] | SR | | | | | [place] [address] | | | | | | [place], [place] | | | | | | [address] | | | | | | [phone] | | | +--------+ + + + [...] [place] | | | | | | [address] | | | | | | | [...]
--- OUTSIDE RECORDS SUMMARY | ~2019-12-17 | XMS | Encounter Summary ---
Demographics + + + | Address | [address] | | | [place] [address] | + + + | Home Phone [...] | | | | [place] [address] | | + + + + + | Juana Gasca | ECON | [address] | | | | | [place] | | | | | [address] | | + + + + + | Chad Gasca | ECON | Unknown | | + + + + + Care Team Providers + +------+ + | Care Tenderizer Tender Name | Role | Phone | [...] + + | 09/27/ | Office | [facility] | [place], | COPD (chronic | | 2013 | Visit | PULMONARY [address] | Florence You MD | obstructive | | | | [place], | | pulmonary disease) | | | | [place] [address] | | (Primary Dx); | | | | [phone] | | Obstructive sleep | | | | | | apnea on BiPAP; | | | | | | 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 We offered follow [...] Take 40 mg by mouth every morning. Ukeadbiuseg-Mhbehctse-Jct C-Mn (GLUCOSAMINE 1500 COMPLEX PO) Take 1,500 [...] made to ensure accuracy; however, inadvertent computerized senior applications architect errors may be pre sent. Electronically signed [...] | | | | | [place] | | | | | | [address] | | | | | | | [...]
--- OUTSIDE RECORDS SUMMARY | ~2019-12-17 | XMS | Encounter Summary ---
Demographics + + + | Address | [address] | | | [place] [address] | + + + | Home Phone [...] | | | | [place] [address] | | + + + + + | Juana Gasca | ECON | [address] | | | | | [place] | | | | | [address] | | + + + + + | Chad Gasca | ECON | Unknown | | + + + + + Care Team Providers + +------+ + | Care Carbon Rod Inserter Name | Role | Phone | + +------+ + | Med Lorenzana | PCP | | | MD | | | + +------+ + Encounter Details +--------+ + + + + | Date | Type | Department | Care Team | Description | +--------+ + + + + | 03/07/ | Hospital | [facility] | Erika Simental | Rheumatic mitral | | 2013 - | Encounter | [facility] | MD [address] | valve disease; | | | | CARE FLOOR [address] | Calvin Pastor | Atrial fibrillation, | | 03/14/ | | [address] | [place] [address] | chronic (HCC) | | 2013 | | [place], [place] | [phone] | | | | | [address] | | | | | | [phone] | | | +--------+ + + + [...] Thoracic, and Vascular Surgery Author Type: Physician Grease Buffer - Certified Filed: 03/17/14 1441 Date of Service: 03/17/141427 Status: Attested Shop Mechanic: Andrei Lindsay PA-C (Physician Grease Buffer - Certified) Cosigner: Timothy Whitaker MD at 03/18/14757 Attestation signed by Timothy Whitaker MD at 03/18/14757 I have examined Denise Gasca, reviewed the notes, assessments, and/or procedures perfor med by Andrei Lindsay PA-C, I concur with his documentation of Denise Gasca. 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 You may get the following medications [...] Date of Service: 03/14/14 1400 Status: Signed Shop Mechanic: Nataliia Baldwin RN (Registered Nurse) Reviewed d/c [...] Author: ARACELY Andrea Service: (none) Author Type: Loader Demolder Filed: 03/14/146 Date of Service: 03/14/141302 Status: Signed Shop Mechanic: ARACELY Andrea (Loader Demolder) 03/14/141302 Anticipated Discharge Plan Post Acute Care Needs (Will f/u at Coumadin clinic at [facility]) Anticipated Disposition Facility Type Home Disposition: [...] 03/14/14919 Date of Service: 03/14/14914 Status: Signed Shop Mechanic: ZAYRA Acevedo (Occupational Therapist) 03/14/14914 Plan Requires OT Follow Up Unavailable (Pt with nursing.) OT will re-attempt as census permits. onver gurpreet Transaction, Provider Unknown - 03/14/2014 8:44 AM PDT Nurse Progress Note by Larissa Alvarez RN at 03/14/14843 Author: Larissa Alvarez RN Service: (none) Author Type: Registered Nurse Filed: 03/14/14843 Date of Service: 03/14/14843 Status: Signed Shop Mechanic: Larissa Alvarez, RN (Registered Nurse) Re-visited pt today regarding Coumadin Education. Good retention of information. Haritha Mackenzie PT - 03/14/2014 8:25 AM PDTFormatting of this note might be different from th e original. Therapy Progress Note by Haritha Jean, PT at 03/14/14824 Author: Haritha Jean PT Service: (none) Author Type: Physical Therapist Filed: 03/14/14 1053 Date of Service: 03/14/14824 Status: Signed Shop Mechanic: Haritha Jean PT (Physical Therapist) 03/14/14824 PT Last Visit PT Received On 03/14/14 Reason for Treatment Cardiac Requires PT Follow Up Yes Follow up PT Only? No Assistance Required 1 person Supervisor Photostat Needed No Precautions Cardiac Precautions Sternal Other [...] instruction;Patient appears safe Maximal Ambulation Distance (feet) [id number] Total Ambulation Distance (feet) 200ft Distance limited [...] 03/14/14735 Date of Service: 03/14/14732 Status: Signed Shop Mechanic: Timothy Whitaker MD (Physician) [facility] Service: Cardio Thoracic Surgery Progress Note Pt: Denise Wilmer Elo AGE/SEX: 78 y.o. male ROOM: [facility] : 1935 PCP: MED LORENZANA ADMIT [...] chloride 0.9 % 10 mL Intravenous Q12H [facility] sulfamethoxazole-trimethoprim 1 tablet Oral [...] Note by Jesus Latham PT at 03/13/14 2297 Author: Jesus Latham, PT Service: (none) Author Type: Physical Therapist Filed: 03/13/14 7516 Date of Service: 03/13/14 6805 Status: Signed Shop Mechanic: Jesus Latham PT (Physical Therapist) 03/13/14 8855 PT Last Visit PT Received On 03/13/14 [...] 1548 Date of Service: 03/13/141545 Status: Signed Shop Mechanic: Rozina Davis RN (Registered Nurse) After speaking [...] Date of Service: 03/13/14 1253 Status: Signed Shop Mechanic: ZAYRA Acosta (Occupational Therapist) 03/13/14 1253 Precautions [...] for larger walker) Home Equipment Walker front wheeled;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;Washing dishes;Taking out trash Employment Retired [...] Shower chair without back;Elastic shoe laces;Sponge long handled;[facility] Education Completed: Education Topic: AE and [...] Date of Service: 03/13/14 1023 Status: Signed Shop Mechanic: Evelina Plata RN (Registered Nurse) Patient transferred [...] 03/13/141126 Date of Service: 03/13/14909 Status: Signed Shop Mechanic: Med Berger PT (Physical Therapist) 03/13/14909 PT [...] Thoracic, and Vascular Surgery Author Type: Physician Grease Buffer - Certified Filed: 03/13/14 5067 Date of Service: 03/13/14750 Status: Attested Shop Mechanic: Andrei Lindsay PA-C (Physician Grease Buffer - Certified) Cosigner: Timothy Whitaker MD at [...] chloride 0.9 % 10 mL Intravenous Q12H [facility] sulfamethoxazole-trimethoprim 1 tablet Oral [...] 03/13/14517 Date of Service: 03/13/14517 Status: Signed Shop Mechanic: Newton Mai RPH (Pharmacist) Note ccl 72ml/min meds reviewed pharmacy will follow [facility] 0518 onver gurpreet Transaction, Provider Unknown - 03/12/2014 2:10 PM PDT Therapy Progress Note by Med Berger PT at 03/12/14 1410 Author: Med Berger PT Service: (none) Author Type: Physical Therapist Filed: 03/12/14 1441 Date of Service: 03/12/14 1410 Status: Signed Shop Mechanic: Med Berger PT (Physical Therapist) 03/12/14 1410 [...] PT had pt sit in wheelchair and SPEECH LANGUAGE ASSISTANT whe eled pt back to his room. [...] Larissa Alvarez RN at 03/12/14 1313 Author: Plainview Langevin, RN Service: (none) Author Type: Registered Nurse Filed: 03/12/14 1314 Date of Service: 03/12/14 1313 Status: Signed Shop Mechanic: Larissa Alvarez RN (Registered Nurse) Visited patient for coumadin education. They have been on coumadin prior to this hospitaliz ation and pcp in [place] manages their dosing. Informed of today's inr. They have no quest ions regarding coumadin at this time. Refused Coumadin Education booklet. onver gurpreet Transaction, Provider Unknown - 03/12/2014 10:08 AM PDT Case Management by ARACELY Espinal at 03/12/14 1008 Author: ARACELY Espinal Service: (none) Author Type: Loader Demolder Filed: 03/12/14 1010 Date of Service: 03/12/14 1008 Status: Addendum Shop Mechanic: ARACELY Espinal (Loader Demolder) Related Notes: Original Note by ARACELY Espinal (Loader Demolder) filed at 03/12/14 1009 03/12/14 1005 Discharge [...] 03/12/14899 Date of Service: 03/12/14829 Status: Signed Shop Mechanic: Med Berger PT (Physical Therapist) 03/12/14829 PT [...] returned demo nstration according to instruction given. Aaf-zh-ayrbry was the most difficult for him. Pt [...] Thoracic, and Vascular Surgery Author Type: Physician Grease Buffer - Certified Filed: 03/12/14 1548 Date of Service: 03/12/1451 Status: Attested Addendum Shop Mechanic: Andrei Lindsay PA-C (Physician Grease Buffer - Certified) Related Notes: Original Note by Andrei Lindsay PA-C (Physician Grease Buffer - Certified) file d at 03/12/14 1536 [...] 1550 Date of Service: 03/11/141439 Status: Signed Shop Mechanic: Sam Lemon PT (Physical Therapist) 03/11/14 1440 [...] Recommended (anticipate none) Prior Function Level of [place] Independent with functional mobility;Independent with ADLs;Independe nt [...] Patient's ability Pattern Decreased brooks;WFL Assistive Device (TRIALS MANAGER on w/c) Balance Balance (Pt. is steady [...] Thoracic, and Vascular Surgery Author Type: Physician Grease Buffer - Certified Filed: 03/11/14 1323 Date of Service: 03/11/14909 Status: Attested Shop Mechanic: Andrei Lindsay PA-C (Physician Grease Buffer - Certified) Cosigner: Timothy Whitaker MD at [...] Author: Vin Amador Service: (none) Author Type: Leadership Recruiter Filed: 03/10/142019 Date of Service: 03/10/142013 Status: Signed Shop Mechanic: Vin Amador () Met with pt's Zamzam [...] for Zamzam. Family voiced repeated thx for asphalt blender's availability and support throughout th is long day. CRISTIAN Marrero onver gurpreet Transaction, Provider Unknown - 03/10/2014 8:13 PM PDT Progress Notes by Vin Amador at 03/10/142012 Author: Vin Amador Service: (none) Author Type: Leadership Recruiter Filed: 03/10/142012 Date of Service: 03/10/142012 Status: Signed Shop Mechanic: Vin Amador () Delivered on-pump report to Zamzam and gricelda per protocols. CRISTIAN Marrero onver gurpreet Transaction, Provider Unknown - 03/10/2014 8:09 PM PDT Progress Notes by Vin Amador at 03/10/142008 Author: Vin Amador Service: (none) Author Type: Leadership Recruiter Filed: 03/10/142010 Date of Service: 03/10/142008 Status: Signed Shop Mechanic: Vin Amador () Received p/c from [facility], [...] 03/10/142007 Date of Service: 03/10/142004 Status: Signed Shop Mechanic: Vin Stauffer) Per open heart pt protocols, I met with pt's family to assess ongoing needs and orient the [facility]'s support during surgery. Zamzam, sons Andrei and Chad, and a broth er present for orientation. Family are active in their [place] community and are well supporte d by their laboratory technology teacher/friend today. I provided flow card to family and will update them per prot ocols throughout the afternoon. CRISTIAN Marrero onver gurpreet Transaction, Provider Unknown - 03/09/2014 10:45 AM PDT Nurse Progress Note by Rupal Canela RN at 03/09/14 1045 Author: Rupal Canela RN Service: (none) Author Type: Registered Nurse Filed: 03/09/14 1053 Date of Service: 03/09/14 1045 Status: Signed Shop Mechanic: Rupal Canela RN (Registered Nurse) Pt return from recyclable products sorter via stretcher, alert and oriented x 4. Denies any Pain, right groi n with soft, with safeguard intact, scant amount old drainage on dressing. Right pedal puls e 2+, VSS, IVF infusing. onver gurpreet Transaction, Provider Unknown - 03/08/2014 2:58 PM PDT Case Management by ARACELY Walker at 03/08/14 7148 Author: ARACELY Walker Service: (none) Author Type: Loader Demolder Filed: 03/08/14 1502 Date of Service: 03/08/14 1458 Status: Addendum Shop Mechanic: ARACELY Walker (Loader Demolder) Related Notes: Original Note by ARACELY Walker (Loader Demolder) filed at 03/08/14 1501 03/08/14 1400 Discharge [...] Plan Yes Anticipated Disposition Facility Type Home GALLERY OR MUSEUM ATTENDANT met with Pt and discussed discharge planning, planning to go home when medically ready. Pt is a 78 y.o. male here with Aortic Valve Replacement, having CHF, prog ressive Aortic Stenosis. Pt states he drives, is active and independent with all ADLs and IADLs, states outpatient o ncology at [facility] has a regimented program which follows his Coumad in levels since 2005. Patient's PCP is: MED Roe Patient's insurance: Medicare / [facility] Coverage concerns: None Medication coverage/concerns: None Community resources utilized / needed: None Assistance in transportation: Pt family Identification of any specific education / training: Pending clinical course, unknown Barriers to Discharge / Alternative housing needed: Pending clinical course, unknown Anticipated DCP: Home - pending clinical course. CACHORRO REID, Media Center Specialist [phone] cell hen, Erika Lee MD - 03/08/2014 2:36 PM PDTFormatting of this note might be different fro m the original. Progress Notes by Erika Simental DO at 03/08/14 1436 Author: Erika Simental DO Service: Cardiology Author Type: Physician Filed: 03/08/14 5160 Date of Service: 03/08/141435 Status: Signed Shop Mechanic: Erika Simental DO (Physician) [facility] Service: Cardiology Progress Note Hospital Day: [...] units/mL in Dextrose 5% 1,800 Units/hr (03/08/14 3508) PRN Medications acetaminophen, acetaminophen, albuterol, heparin (porcine), [...] 3: Pacemaker/ICD: yes, Guidant Insignia 1291, SN: [id number] Code Status: Full Code ERIKA SIMENTAL DO 03/08/2014 onversio n Transaction, Provider Unknown - 03/07/2014 5:35 PM PDTFormatting of this note might be di fferent from the original. Progress Notes by Jessica Lieberman RPH at 03/07/141734 Author: Jessica Lieberman RPH Service: (none) Author Type: Pharmacist Filed: 03/07/141734 Date of Service: 03/07/141734 Status: Signed Shop Mechanic: Jessica Lieberman RPH (Pharmacist) Renal Dosing Monitoring: [...] 03/07/142018 Date of Service: 03/07/141957 Status: Signed Shop Mechanic: Erika Simental DO (Physician) [facility] Service: Cardiology Initial History and Physical Denies Gasca 1935 Identification: Denise Gasca 78 y.o. [...] mg by mouth 2 (two) times daily. Fablmaxkawl-Pmsohdzmr-Cwn C-Mn (GLUCOSAMINE 1500 COMPLEX PO) Take 4,500 [...] 2004 Pacemaker/ICD: yes, Guidant Insignia 1291, SN: [id number] Last Cath, 07/21/2005: L. main [place], LAD [...] Date of Service: 03/09/14 1032 Status: Signed Shop Mechanic: Timothy Whitaker MD (Physician) [facility] Service: Cardiothoracic Surgery Initial Consult Note [...] mg by mouth 2 (two) times daily. Mzndvlesixi-Kniicuobj-Lpw C-Mn (GLUCOSAMINE 1500 COMPLEX PO) Take 4,500 [...] 010 Date of Service: 03/11/1458 Status: Signed Shop Mechanic: Ruth Aleman RN (Registered Nurse) Daily care needs are met Progressing Patient's pain/discomfort is manageable Progressing Demonstrates ability to cope with hospitalization/illness Progressing Patient will be injury free during hospitalization Progressing Pt returned from OR at 2031, extubated at 2305, placed on Bipap to sleep, pt wears Bipap at night at home, using own mask . p Not e - Timothy Whitakre MD - 03/10/2014 8:26 PM PDT Op Note signed by Timothy Whitaker MD at 03/12/14 0210 Author: Timothy Whitaker MD Service: (none) Author Type: Physician Filed: 03/12/14 4071 Date of Service: 03/10/142025 Status: Signed Shop Mechanic: Timothy Whitaker MD (Physician) DENISE GASCA Date of : 1935 PREOPERATIVE DIAGNOSIS Aortic stenosis. POSTOPERATIVE DIAGNOSIS Aortic stenosis. PROCEDURE 1. Redo sternotomy. 2. Aortic valve replacement (23 On-X valve). SURGEON Timothy Whitaker MD CERTIFIED MASTER SAFE TECHNICIAN BATOOL [place] ANESTHESIOLOGIST tIalo Hawkins MD ANESTHESIA General endotracheal. ESTIMATED BLOOD [...] After induction of general endotracheal anesthesi a, [place] catheter, Velazquez catheter, radial artery line, and [...] 1 active ventricular wire were placed. A #24-Namibian chest tube was placed in the mediastinum [...] unit intubated and in stable condition. P/ P/gf/[id number] TIMOTHY WHITAKER MD p Note - Timothy Whitaker MD - 03/10/2014 8:21 PM PDTFormatting of this note might be different fro m the original. Brief Op Note by Timothy Whitaker MD at 03/10/142020 Author: Timothy Whitaker MD Service: (none) Author Type: Physician Filed: 03/10/142021 Date of Service: 03/10/142020 Status: Signed Shop Mechanic: Timothy Whitaker MD (Physician) [facility] Service: Cardiothoracic Surgery Brief Op Note Pre-operative Diagnosis: Aortic Stenosis Post-operative Diagnosis: Same Procedure(s): Redo Sternotomy AVR (23 On-X) Surgeon: TIMOTHY WHITAKER MD Grease Buffer(s): Johanny Desai RN FA Anesthesia: General endotrachial [...] Physician Filed: 03/14/141599 Date of Service: 03/10/14 9076 Status: Signed Shop Mechanic: Terell Beltran MD (Physician) DENISE GASCA Date [...] withdrew the cysto scope and converted a 16-Namibian Velazquez catheter into Councill tip and was [...] Dr. Whitaker for further surgical management. P/ P/gf/[id number] TERELL BELTRAN MD lan of Care - Conver gurpreet Transaction, Provider Unknown - 03/07/2014 11:06 PM PDT Plan of Care by Denise Quintanilla RN at 03/07/142305 Author: Denise Quintanilla RN Service: (none) Author Type: Registered Nurse Filed: 03/07/142305 Date of Service: 03/07/142305 Status: Signed Shop Mechanic: Denise Quintanilla RN (Registered Nurse) Problem: Pain [...] | | | | | [place] | | | | | | [address] | | | | | | | [...] | | | Fingerstick | performed at [facility];[address] | | LAB | | | | [address];[place], [place] | | | | | | [address] | | | | + + + [...] | | | Fingerstick | performed at [facility];[address] | | LAB | | | [address];[place], [place] | | | | | | [address] | | | | + + + [...] EXTERNAL | | | | performed at [facility], [address] | | LAB | | | | [address], | | | | | | [place] [address] | | | | + + + + + + | Non- | 2.66 (L)Comment: Testing | 4.20 - 5.70 | EXTERNAL | | | Red Blood | performed at [facility], [address] | M/uL | LAB | | | Cells | [address] [facility], | | | | | Counted | [place] [address] | | | | + + + + + + | Hemoglobin | 8.8 (L)Comment: Testing | 13.2 - 17.0 | EXTERNAL | | | | performed at [facility], [address] | g/dL | LAB | | | | [address], | | | | | | [place] [address] | | | | + + + + + + | Hematocrit, | 26.3 (L)Comment: Testing | 39.0 - 50.0 % | EXTERNAL | | | POC | performed at [facility], [address] | | LAB | | | | [address], | | | | | | [place] [address] | | | | + + + + + + | MCV | 98.9Comment: Testing | 80.0 - 100.0 fl | EXTERNAL | | | | performed at [facility], [address] | | LAB | | | | [address], | | | | | | [place] [address] | | | | + + + + + + | MCH | 33.2Comment: Testing | 27.0 - 34.0 pg | EXTERNAL | | | | performed at [facility], [address] | | LAB | | | | [address], | | | | | | [place] [address] | | | | + + + + + + | MCHC | 33.6Comment: Testing | 32.0 - 35.5 | EXTERNAL | | | | performed at [facility], [address] | g/dL | LAB | | | | [address], | | | | | | [place] [address] | | | | + + + + + + | RDW-CV | 57.8 (H)Comment: Testing | 37 - 53 fl | EXTERNAL | | | | performed at [facility], [address] | | LAB | | | | [address], | | | | | | [place] [address] | | | | + + + + + + | Platelet | 126 (L)Comment: Testing | 150 - 400 K/uL | EXTERNAL | | | Count | performed at [facility], [address] | | LAB | | | Plasma | [address], | | | | | | [place] [address] | | | | + + + + + + | MPV | 9.3Comment: Testing | fl | EXTERNAL | | | | performed at [facility], [address] | | LAB | | | | [address], | | | | | | [place] [address] | | | | + + + [...] | | | | | performed at [facility];[address] | | | | | | [facility];[place], [place] | | | | | | [address] | | | | + + + [...] EXTERNAL | | | | performed at [facility], [address] | | LAB | | | | [address], | | | | | | [place] [address] | | | | + + + [...] | | | | [place] [address] | | | | + + + + + + | K | 5.1 (H)Comment: Testing | 3.5 - 4.9 | EXTERNAL | | | | performed at [facility], [address] | mmol/L | LAB | | | | [address], | | | | | | [place] [address] | | | | + + + + + + | Cl | 98 (L)Comment: Testing | 99 - 109 mmol/L | EXTERNAL | | | | performed at [facility], [address] | | LAB | | | | [address], | | | | | | [place] [address] | | | | + + + + + + | CO2 | 27Comment: Testing | 23 - 32 mmol/L | EXTERNAL | | | | performed at [facility], [address] | | LAB | | | | [address], | | | | | | [place] [address] | | | | + + + + + + | Anion Gap | 9Comment: Testing | 5 - 20 mmol/L | EXTERNAL | | | | performed at [facility], [address] | | LAB | | | | [address], | | | | | | [place] [address] | | | | + + + + + + | Glucose, | 101 (H)Comment: Testing | 65 - 99 mg/dL | EXTERNAL | | | Fasting | performed at [facility], [address] | | LAB | | | | [address], | | | | | | [place], [place] [address] | | | | + + + + + + | BUN | 24Comment: Testing | 8 - 25 mg/dL | EXTERNAL | | | | performed at [facility], [address] | | LAB | | | | [address], | | | | | | [place], [place] [address] | | | | + + + + + + | Creatinine | 1.12Comment: Testing | 0.70 - 1.30 | EXTERNAL | | | | performed at [facility], [address] | mg/dL | LAB | | | | [address], | | | | | | [place] [address] | | | | + + + + + + | BUN/Creatin | 21Comment: Testing | | EXTERNAL | | | ine Ratio | performed at [facility], [address] | | LAB | | | | [address], | | | | | | [place] [address] | | | | + + + + + + | Calcium | 8.8Comment: Testing | 8.5 - 10.2 | EXTERNAL | | | | performed at [facility], [address] | mg/dL | LAB | | | | [facility] | | | | | | [place] [address] | | | | + + + [...] | | | | | | at [facility], [address] | | | | | | [address], | | | | | | [place] [address] | | | | + + + [...] | | | Fingerstick | performed at [facility];[address] | | LAB | | | | [address];[place] | | | | | | [address] | | | | + + + [...] | | | Fingerstick | performed at [facility];[address] | | LAB | | | | [address];[place], [place] | | | | | | [address] | | | | + + + [...] | | | Fingerstick | performed at [facility] | | LAB | | | | [address];[place], [place] | | | | | | [address] | | | | + + + [...] CHEST 2 VIEW FRONTAL | | AND ZBXAEIH62/9/2014 8:37 AM HISTORY:Followup tube placement. Recent heart [...] EXTERNAL | | | | performed at [facility];[address] | | LAB | | | | [address];[place] | | | | | | [address] | | | | + + + + + + | Non- | 2.80 (L)Comment: Testing | 4.20 - 5.70 | EXTERNAL | | | Red Blood | performed at [facility];[address] | M/uL | LAB | | | Cells | [address];[place] | | | | | Counted | [id number] | | | | + + + + + + | Hemoglobin | 9.1 (L)Comment: Testing | 13.2 - 17.0 | EXTERNAL | | | | performed at [facility];[address] | g/dL | LAB | | | | [address];[place] | | | | | | [address] | | | | + + + + + + | Hematocrit, | 27.3 (L)Comment: Testing | 39.0 - 50.0 % | EXTERNAL | | | POC | performed at [facility];[address] | | LAB | | | | [address];[place] | | | | | | [address] | | | | + + + + + + | MCV | 97.4Comment: Testing | 80.0 - 100.0 fl | EXTERNAL | | | | performed at [facility];[address] | | LAB | | | | [address];[place] | | | | | | [address] | | | | + + + + + + | MCH | 32.6Comment: Testing | 27.0 - 34.0 pg | EXTERNAL | | | | performed at [facility];[address] | | LAB | | | | [address];[place] | | | | | | [address] | | | | + + + + + + | MCHC | 33.4Comment: Testing | 32.0 - 35.5 | EXTERNAL | | | | performed at [facility];[address] | g/dL | LAB | | | | [address];[place] | | | | | | [address] | | | | + + + + + + | RDW-CV | 58.6 (H)Comment: Testing | 37 - 53 fl | EXTERNAL | | | | performed at [facility];[address] | | LAB | | | | [address];[place] | | | | | | [address] | | | | + + + + + + | Platelet | 134 (L)Comment: Testing | 150 - 400 K/uL | EXTERNAL | | | Count | [facility] [facility];888 | | LAB | | | Plasma | [address];[place] | | | | | | [address] | | | | + + + + + + | MPV | 8.3Comment: Testing | fl | EXTERNAL | | | | performed at [facility];[address] | | LAB | | | | [address];[place] | | | | | | [address] | | | | + + + [...] | | | | | performed at [facility] | | | | | | [facility];[place], [place] | | | | | | [address] | | | | + + + [...] EXTERNAL | | | | performed at [facility];888 | | LAB | | | | [address];[place], [place] | | | | | | [address] | | | | + + + [...] EXTERNAL | | | | performed at [facility];888 | mmol/L | LAB | | | | [address];[place] | | | | | | [address] | | | | + + + + + + | K | 4.9Comment: Testing | 3.5 - 4.9 | EXTERNAL | | | | performed at [facility];888 | mmol/L | LAB | | | | [address];[place] | | | | | | [address] | | | | + + + + + + | Cl | 102Comment: Testing | 99 - 109 mmol/L | EXTERNAL | | | | performed at [facility];[address] | | LAB | | | | [address];[place] | | | | | | [address] | | | | + + + + + + | CO2 | 27Comment: Testing | 23 - 32 mmol/L | EXTERNAL | | | | performed at [facility];[address] | | LAB | | | | [address];[place] | | | | | | [address] | | | | + + + + + + | Anion Gap | 10Comment: Testing | 5 - 20 mmol/L | EXTERNAL | | | | performed at [facility];[address] | | LAB | | | | [address];[place] | | | | | | [address] | | | | + + + + + + | Glucose, | 94Comment: Testing | 65 - 99 mg/dL | EXTERNAL | | | Fasting | performed at [facility];[address] | | LAB | | | | [address];[place] | | | | | | [address] | | | | + + + + + + | BUN | 22Comment: Testing | 8 - 25 mg/dL | EXTERNAL | | | | performed at [facility];[address] | | LAB | | | | [address];[place] | | | | | | [address] | | | | + + + + + + | Creatinine | 1.09Comment: Testing | 0.70 - 1.30 | EXTERNAL | | | | performed at [facility];888 | mg/dL | LAB | | | | [address];[place] | | | | | | [address] | | | | + + + + + + | BUN/Creatin | 20Comment: Testing | | EXTERNAL | | | ine Ratio | performed at [facility];[address] | | LAB | | | | [address];[place] | | | | | | [address] | | | | + + + + + + | Calcium | 8.7Comment: Testing | 8.5 - 10.2 | EXTERNAL | | | | performed at [facility];888 | mg/dL | LAB | | | | [address];[place] | | | | | | [address] | | | | + + + [...] | | | | | | at [facility];[address] [place] [address] | | | | | | [facility];[place] [address] | | | | + + + [...] | | | Fingerstick | performed at [facility];[address] | | LAB | | | | [address];[place] | | | | | | [address] | | | | + + + [...] | | | Fingerstick | performed at [facility];[address] | | LAB | | | | [address];[place] | | | | | | [address] | | | | + + + [...] | | | Fingerstick | performed at [facility];[address] | | LAB | | | | [address];[place] | | | | | | [address] | | | | + + + [...] | | | Fingerstick | performed at [facility];[address] | | LAB | | | | [address];[place] | | | | | | [address] | | | | + + + [...] | | | Fingerstick | performed at [facility];[address] | | LAB | | | | [address];[place], [place] | | | | | | [address] | | | | + + + [...] | | | | | performed at [facility] | | | | | | [facility];[place], [place] | | | | | | [address] | | | | + + + [...] EXTERNAL | | | | performed at [facility], [address] | | LAB | | | | [address], | | | | | | [place] [address] | | | | + + + + + + | Non- | 2.77 (L)Comment: Testing | 4.20 - 5.70 | EXTERNAL | | | Red Blood | performed at [facility], [address] | M/uL | LAB | | | Cells | [address], | | | | | Counted | [place] [address] | | | | + + + + + + | Hemoglobin | 8.9 (L)Comment: Testing | 13.2 - 17.0 | EXTERNAL | | | | performed at [facility], [address] | g/dL | LAB | | | | [address], | | | | | | [place] [address] | | | | + + + + + + | Hematocrit, | 27.5 (L)Comment: Testing | 39.0 - 50.0 % | EXTERNAL | | | POC | performed at [facility], [address] | | LAB | | | | [address], | | | | | | [place] [address] | | | | + + + + + + | MCV | 99.2Comment: Testing | 80.0 - 100.0 fl | EXTERNAL | | | | performed at [facility], [address] | | LAB | | | | [address], | | | | | | [place] [address] | | | | + + + + + + | MCH | 32.0Comment: Testing | 27.0 - 34.0 pg | EXTERNAL | | | | performed at [facility], [address] | | LAB | | | | [address], | | | | | | [place] [address] | | | | + + + + + + | MCHC | 32.3Comment: Testing | 32.0 - 35.5 | EXTERNAL | | | | performed at [facility], [address] | g/dL | LAB | | | | [address], | | | | | | [place] [address] | | | | + + + + + + | RDW-CV | 56.4 (H)Comment: Testing | 37 - 53 fl | EXTERNAL | | | | performed at [facility], [address] | | LAB | | | | [address], | | | | | | [place] [address] | | | | + + + + + + | Platelet | 111 (L)Comment: Testing | 150 - 400 K/uL | EXTERNAL | | | Count | performed at [facility], [address] | | LAB | | | Plasma | [address], | | | | | | [place] [address] | | | | + + + + + + | MPV | 8.7Comment: Testing | fl | EXTERNAL | | | | performed at [facility], [address] | | LAB | | | | [address], | | | | | | [place] [address] | | | | + + + + + + | Differentia | MANUALComment: Testing | | EXTERNAL | | | l Type | performed at [facility], [address] | | LAB | | | | [address], | | | | | | [place] [address] | | | | + + + + + + | Segmented | 87Comment: Testing | % | EXTERNAL | | | Neutrophils | performed at [facility], [address] | | LAB | | | Manual | [address], | | | | | | [place] [address] | | | | + + + + + + | % Bands | 5Comment: Testing | % | EXTERNAL | | | | performed at [facility], [address] | | LAB | | | | [address], | | | | | | [place] [address] | | | | + + + + + + | Lymphocytes | 3Comment: Testing | % | EXTERNAL | | | Manual | performed at [facility], [address] | | LAB | | | | [address], | | | | | | [place] [address] | | | | + + + + + + | Monocytes | 5Comment: Testing | % | EXTERNAL | | | Manual | performed at [facility], [address] | | LAB | | | | [address], | | | | | | [place] [address] | | | | + + + + + + | Absolute | 13.9 (H)Comment: Testing | 1.9 - 7.4 K/uL | EXTERNAL | | | Neutrophils | performed at [facility], [address] | | LAB | | | | [address], | | | | | | [place] [address] | | | | + + + + + + | Bands | 0.8 (H)Comment: Testing | 0 - 0.2 K/uL | EXTERNAL | | | Manual | performed at [facility], [address] | | LAB | | | [address], | | | | | | [place] [address] | | | | + + + + + + | Absolute | 0.5 (L)Comment: Testing | 1.0 - 3.9 K/uL | EXTERNAL | | | Lymphocytes | performed at [facility], [address] | | LAB | | | | [address], | | | | | | [place] [address] | | | | + + + + + + | Absolute | 0.8Comment: Testing | 0 - 0.8 K/uL | EXTERNAL | | | Monocytes | performed at [facility], [address] | | LAB | | | | [address], | | | | | | [place] [address] | | | | + + + + + + | RBC | 1+Comment: ANISONORMAL | | EXTERNAL | | | Morphology | PLT MORPHTesting | | LAB | | | | performed at [facility], [address] | | | | | [address], | | | | | | [place] [address] | | | | | | | [...] EXTERNAL | | | | performed at [facility], [address] | | LAB | | | | [address], | | | | | | [place] [address] | | | | + + + [...] | | | | [place] [address] | | | | + + + + + + | K | 4.8Comment: Testing | 3.5 - 4.9 | EXTERNAL | | | | performed at [facility], [address] | mmol/L | LAB | | | | [address], | | | | | | [place] [address] | | | | + + + + + + | Cl | 103Comment: Testing | 99 - 109 mmol/L | EXTERNAL | | | | performed at [facility], [address] | | LAB | | | | [address], | | | | | | [place] [address] | | | | + + + + + + | CO2 | 26Comment: Testing | 23 - 32 mmol/L | EXTERNAL | | | | performed at [facility], [address] | | LAB | | | | [address], | | | | | | [place] [address] | | | | + + + + + + | Anion Gap | 8Comment: Testing | 5 - 20 mmol/L | EXTERNAL | | | | performed at [facility], [address] | | LAB | | | | [address], | | | | | | [place] [address] | | | | + + + + + + | Glucose, | 142 (H)Comment: Testing | 65 - 99 mg/dL | EXTERNAL | | | Fasting | performed at [facility], [address] | | LAB | | | | [address], | | | | | | [place] [address] | | | | + + + + + + | BUN | 23Comment: Testing | 8 - 25 mg/dL | EXTERNAL | | | | performed at [facility], [address] | | LAB | | | | [address], | | | | | | [place] [address] | | | | + + + + + + | Creatinine | 1.16Comment: Testing | 0.70 - 1.30 | EXTERNAL | | | | performed at [facility], [address] | mg/dL | LAB | | | | [address], | | | | | | [place] [address] | | | | + + + + + + | BUN/Creatin | 20Comment: Testing | | EXTERNAL | | | ine Ratio | performed at [facility], [address] | | LAB | | | | [address], | | | | | | [place] [address] | | | | + + + + + + | Calcium | 8.8Comment: Testing | 8.5 - 10.2 | EXTERNAL | | | | performed at [facility], [address] | mg/dL | LAB | | | | [facility], | | | | | | [place] [address] | | | | + + + [...] W | | | | | | [address], | | | | | | [place] [address] | | | | + + + [...] | | | Fingerstick | performed at [facility];[address] | | LAB | | | | [address];[place] | | | | | | [address] | | | | + + + [...] | | | Fingerstick | performed at [facility];[address] | | LAB | | | | [address];[place], [place] | | | | | | [address] | | | | + + + [...] | | | Fingerstick | performed at [facility];[address] | | LAB | | | | [address];[place] | | | | | | [address] | | | | + + + [...] EXTERNAL | | | | performed at [facility];888 | mmol/L | LAB | | | | [address];[place], [place] | | | | | | [address] | | | | + + + [...] | | | Fingerstick | performed at [facility];[address] | | LAB | | | | [address];[place] | | | | | | [address] | | | | + + + [...] | | | Fingerstick | performed at [facility];[address] | | LAB | | | | [address];[place], [place] | | | | | | [address] | | | | + + + [...] | | | Fingerstick | performed at [facility];[address] | | LAB | | | | [address];[place], [place] | | | | | | [address] | | | | + + + [...] EXTERNAL | | | | performed at [facility];888 | mmol/L | LAB | | | | [address];[place], [place] | | | | | | [address] | | | | + + + [...] | | | Fingerstick | performed at [facility];[address] | | LAB | | | | [address];[place] | | | | | | [address] | | | | + + + [...] | | | Fingerstick | performed at [facility];[address] | | LAB | | | | [address];[place], [place] | | | | | | [address] | | | | + + + [...] | | | Fingerstick | performed at [facility];[address] | | LAB | | | | [address];[place] | | | | | | [address] | | | | + + + [...] | | | Fingerstick | performed at [facility];[address] | | LAB | | | | [address];[place], [place] | | | | | | [address] | | | | + + + [...] | | | Fingerstick | performed at [facility];[address] | | LAB | | | | [address];[place], [place] | | | | | | [address] | | | | + + + [...] EXTERNAL | | | | performed at [facility], [address] | | LAB | | | | [address], | | | | | | [place] [address] | | | | + + + + + + | Non- | 3.07 (L)Comment: Testing | 4.20 - 5.70 | EXTERNAL | | | Red Blood | performed at [facility], [address] | M/uL | LAB | | | Cells | [address], | | | | | Counted | [place] [address] | | | | + + + + + + | Hemoglobin | 9.9 (L)Comment: Testing | 13.2 - 17.0 | EXTERNAL | | | | performed at [facility], [address] | g/dL | LAB | | | | [address], | | | | | | [place] [address] | | | | + + + + + + | Hematocrit, | 30.2 (L)Comment: Testing | 39.0 - 50.0 % | EXTERNAL | | | POC | performed at [facility], [address] | | LAB | | | | [address], | | | | | | [place] [address] | | | | + + + + + + | MCV | 98.4Comment: Testing | 80.0 - 100.0 fl | EXTERNAL | | | | performed at [facility], [address] | | LAB | | | | [address], | | | | | | [place] [address] | | | | + + + + + + | MCH | 32.3Comment: Testing | 27.0 - 34.0 pg | EXTERNAL | | | | performed at [facility], [address] | | LAB | | | | [address], | | | | | | [place] [address] | | | | + + + + + + | MCHC | 32.8Comment: Testing | 32.0 - 35.5 | EXTERNAL | | | | performed at [facility], [address] | g/dL | LAB | | | | [address], | | | | | | [place] [address] | | | | + + + + + + | RDW-CV | 58.2 (H)Comment: Testing | 37 - 53 fl | EXTERNAL | | | | performed at [facility], [address] | | LAB | | | | [address], | | | | | | [place] [address] | | | | + + + + + + | Platelet | 135 (L)Comment: Testing | 150 - 400 K/uL | EXTERNAL | | | Count | performed at [facility], [address] | | LAB | | | Plasma | [address], | | | | | | [place], [place] [address] | | | | + + + + + + | MPV | 8.2Comment: Testing | fl | EXTERNAL | | | | performed at [facility], [address] | | LAB | | | | [address], | | | | | | [place] [address] | | | | + + + + + + | Differentia | MANUALComment: Testing | | EXTERNAL | | | l Type | performed at [facility], [address] | | LAB | | | | [address], | | | | | | [place] [address] | | | | + + + + + + | Segmented | 81Comment: Testing | % | EXTERNAL | | | Neutrophils | performed at [facility], [address] | | LAB | | | Manual | [address], | | | | | | [place] [address] | | | | + + + + + + | % Bands | 11Comment: Testing | % | EXTERNAL | | | | performed at [facility], [address] | | LAB | | | | [address], | | | | | | [place] [address] | | | | + + + + + + | % | 1Comment: Testing | % | EXTERNAL | | | Metamyelocy | performed at [facility], [address] | | LAB | | | tylor | [address], | | | | | | [place] [address] | | | | + + + + + + | Lymphocytes | 3Comment: Testing | % | EXTERNAL | | | Manual | performed at [facility], [address] | | LAB | | | | [address], | | | | | | [place] [address] | | | | + + + + + + | Monocytes | 4Comment: Testing | % | EXTERNAL | | | Manual | performed at [facility], [address] | | LAB | | | | [address], | | | | | | [place] [address] | | | | + + + + + + | Absolute | 15.8 (H)Comment: Testing | 1.9 - 7.4 K/uL | EXTERNAL | | | Neutrophils | performed at [facility], [address] | | LAB | | | | [address], | | | | | | [place] [address] | | | | + + + + + + | Bands | 2.2 (H)Comment: Testing | 0 - 0.2 K/uL | EXTERNAL | | | Manual | performed at [facility], [address] | | LAB | | | | [address], | | | | | | [place] [address] | | | | + + + + + + | Absolute | 0.2 (H)Comment: Testing | K/uL | EXTERNAL | | | Metamyelocy | performed at [facility], [address] | | LAB | | | tylor | [address], | | | | | | [place] [address] | | | | + + + + + + | Absolute | 0.6 (L)Comment: Testing | 1.0 - 3.9 K/uL | EXTERNAL | | | Lymphocytes | performed at [facility], [address] | | LAB | | | | [address], | | | | | | [place] [address] | | | | + + + + + + | Absolute | 0.8Comment: Testing | 0 - 0.8 K/uL | EXTERNAL | | | Monocytes | performed at [facility], [address] | | LAB | | | | [address], | | | | | | [place] [address] | | | | + + + + + + | RBC | 1+Comment: ANISONORMAL | | EXTERNAL | | | Morphology | PLT MORPHTesting | | LAB | | | | performed at [facility], [address] | | | | | | [address], | | | | | | [place] [address] | | | | | | | [...] EXTERNAL | | | | performed at [facility] | | LAB | | | | [facility];[place], [place] | | | | | | [address] | | | | + + + [...] + + | Hemoglobin | 5.4Comment: The [place] | 4.0 - 6.0 % | EXTERNAL [...] | | | | | performed at [facility], [address] | | | | | | [address], | | | | | | [place] [address] | | | | + + + [...] | | | | | performed at [facility], [address] | | | | | | [facility], | | | | | | [place] [address] | | | | + + + [...] EXTERNAL | | | | performed at [facility];888 | mmol/L | LAB | | | | [address];[place] | | | | | | [address] | | | | + + + + + + | K | 5.0 (H)Comment: Testing | 3.5 - 4.9 | EXTERNAL | | | | performed at [facility];[address] | mmol/L | LAB | | | | [address];[place] | | | | | | [address] | | | | + + + + + + | Cl | 109Comment: Testing | 99 - 109 mmol/L | EXTERNAL | | | | performed at [facility];[address] | | LAB | | | | [address];[place] | | | | | | [address] | | | | + + + + + + | CO2 | 24Comment: Testing | 23 - 32 mmol/L | EXTERNAL | | | | performed at [facility];[address] | | LAB | | | | [address];[place] | | | | | | [address] | | | | + + + + + + | Anion Gap | 12Comment: Testing | 5 - 20 mmol/L | EXTERNAL | | | | performed at [facility];[address] | | LAB | | | | [address];[place] | | | | | | [address] | | | | + + + + + + | Glucose, | 147 (H)Comment: Testing | 65 - 99 mg/dL | EXTERNAL | | | Fasting | performed at [facility];[address] | | LAB | | | | [address];[place] | | | | | | [address] | | | | + + + + + + | BUN | 19Comment: Testing | 8 - 25 mg/dL | EXTERNAL | | | | performed at [facility];[address] | | LAB | | | | [address];[place] | | | | | | [address] | | | | + + + + + + | Creatinine | 1.00Comment: Testing | 0.70 - 1.30 | EXTERNAL | | | | performed at [facility];[address] | mg/dL | LAB | | | | [address];[place] | | | | | | [address] | | | | + + + + + + | BUN/Creatin | 19Comment: Testing | | EXTERNAL | | | ine Ratio | performed at [facility];[address] | | LAB | | | | [address];[place] | | | | | | [address] | | | | + + + + + + | Calcium | 8.3 (L)Comment: Testing | 8.5 - 10.2 | EXTERNAL | | | | performed at [facility];[address] | mg/dL | LAB | | | | [address];[place], [place] | | | | | | [address] | | | | + + + [...] | | | | | | at [facility];[address];[place] [address] | | | | + + + [...] | | | Fingerstick | performed at [facility];[address] | | LAB | | | | [address];[place], [place] | | | | | | [address] | | | | + + + [...] | | | Fingerstick | performed at [facility];[address] | | LAB | | | | [address];[place], [place] | | | | | | [address] | | | | + + + [...] EXTERNAL | | | | performed at [facility];888 | mmol/L | LAB | | | | [address];[place], [place] | | | | | | [address] | | | | + + + [...] | | | Fingerstick | performed at [facility];[address] | | LAB | | | | [address];[place] | | | | | | [address] | | | | + + + [...] 1.0 cm in aggregate. | | | Compensator sections are submitted in cassette A1 and [...] preparation was performed by | | | [employer], [facility], [address] [place] [address], | | | [place] [address] ([employer] Operator: David Dawson M.D.; | | | [facility]#: [id number]). Diagnostician: Ayad Briscoe MD Pathologist | | [...] | | | Fingerstick | performed at [facility];[address] | | LAB | | | | [address];[place] | | | | | | [address] | | | | + + + [...] are seen. | | | A left-sided [place] catheter sheath is seen with the [place] | | | retracted into [...] Transvenous pacing presents are seen. A left-sided [place] | | catheter sheath is seen with the [place] retracted into the sheath. The [...] Transvenous pacing presents are seen. A left-sided [place] catheter sheath is se en with the [place] retracted into the sheath. The [...] | | | Patient | performed at [facility];[address] | | LAB | | | [address];[place], [place] | | | | | | [address] | | | | + + + [...] | | | | | performed at [facility] | | | | | | [address];[place], [place] | | | | | | [address] | | | | + + + [...] EXTERNAL | | | | performed at [facility];[address] | | LAB | | | | [address];[place] | | | | | | [address] | | | | + + + [...] EXTERNAL | | | | performed at [facility];[address] | | LAB | | | | [address];[place] | | | | | | [address] | | | | + + + + + + | Non- | 3.19 (L)Comment: Testing | 4.20 - 5.70 | EXTERNAL | | | Red Blood | performed at [facility];888 | M/uL | LAB | | | Cells | [address];[place] | | | | | Counted | [address] | | | | + + + + + + | Hemoglobin | 10.3 (L)Comment: Testing | 13.2 - 17.0 | EXTERNAL | | | | performed at [facility];888 | g/dL | LAB | | | | [address];[place] | | | | | | [address] | | | | + + + + + + | Hematocrit, | 30.9 (L)Comment: Testing | 39.0 - 50.0 % | EXTERNAL | | | POC | performed at [facility];[address] | | LAB | | | | [address];[place] | | | | | | [address] | | | | + + + + + + | MCV | 96.9Comment: Testing | 80.0 - 100.0 fl | EXTERNAL | | | | performed at [facility];[address] | | LAB | | | | [address];[place] | | | | | | [address] | | | | + + + + + + | MCH | 32.4Comment: Testing | 27.0 - 34.0 pg | EXTERNAL | | | | performed at [facility];[address] | | LAB | | | | [address];[place] | | | | | | [address] | | | | + + + + + + | MCHC | 33.4Comment: Testing | 32.0 - 35.5 | EXTERNAL | | | | performed at [facility];888 | g/dL | LAB | | | | [address];[place] | | | | | | [address] | | | | + + + + + + | RDW-CV | 56.9 (H)Comment: Testing | 37 - 53 fl | EXTERNAL | | | | performed at [facility];[address] | | LAB | | | | [address];[place] | | | | | | [address] | | | | + + + + + + | Platelet | 141 (L)Comment: Testing | 150 - 400 K/uL | EXTERNAL | | | Count | performed at [facility];[address] | | LAB | | | Plasma | [address];[place] | | | | | | [address] | | | | + + + + + + | MPV | 7.8Comment: Testing | fl | EXTERNAL | | | | performed at [facility];[address] | | LAB | | | | [address];[place] | | | | | | [address] | | | | + + + + + + | Differentia | AUTOMATEDComment: | | EXTERNAL | | | l Type | Testing performed at | | LAB | | | | [facility];[address];[place] [address] | | | | + + + + + + | % Segmented | 87.9Comment: Testing | % | EXTERNAL | | | | performed at [facility];[address] | | LAB | | | Neutrophils | [address];[place] | | | | | | [address] | | | | + + + + + + | % | 7.0Comment: Testing | % | EXTERNAL | | | Lymphocytes | performed at [facility];[address] | | LAB | | | | [address];[place] | | | | | | [address] | | | | + + + + + + | % Monocytes | 3.8Comment: Testing | % | EXTERNAL | | | | performed at [facility];[address] | | LAB | | | | [address];[place] | | | | | | [address] | | | | + + + + + + | % | 0.8Comment: Testing | % | EXTERNAL | | | Eosinophils | performed at [facility];[address] | | LAB | | | | [address];[place] | | | | | | [address] | | | | + + + + + + | % Basophils | 0.5Comment: Testing | % | EXTERNAL | | | | performed at [facility];[address] | | LAB | | | | [address];[place] | | | | | | [address] | | | | + + + + + + | Absolute | 19.5 (H)Comment: Testing | 1.9 - 7.4 K/uL | EXTERNAL | | | Segmented | performed at [facility];[address] | | LAB | | | Neutrophils | [address];[place] | | | | | | [address] | | | | + + + + + + | Absolute | 1.5Comment: Testing | 1.0 - 3.9 K/uL | EXTERNAL | | | Lymphocytes | performed at [facility];[address] | | LAB | | | | [address];[place] | | | | | | [address] | | | | + + + + + + | Absolute | 0.8Comment: Testing | 0 - 0.8 K/uL | EXTERNAL | | | Monocytes | performed at [facility];[address] | | LAB | | | | [address];[place] | | | | | | [address] | | | | + + + + + + | Absolute | 0.2Comment: Testing | 0 - 0.5 K/uL | EXTERNAL | | | Eosinophils | performed at [facility];[address] | | LAB | | | | [address];[place] | | | | | | [address] | | | | + + + + + + | Absolute | 0.1Comment: Testing | 0 - 0.1 K/uL | EXTERNAL | | | Basophils | performed at [facility];[address] | | LAB | | | | [address];[place] | | | | | | [address] | | | | + + + + + + | Differentia | SLIDE SCANNED, AGREES | | EXTERNAL | | | l Comments | WITH AUTOMATED | | LAB | | | | RESULTS.Comment: Testing | | | | | | performed at [facility];[address] | | | | | | [address];[place] | | | | | | [address] | | | | + + + [...] | | | Fingerstick | performed at [facility];[address] | | LAB | | | | [address];[place] | | | | | | [address] | | | | + + + [...] EXTERNAL | | | | performed at [facility];[address] | | LAB | | | | [address];[place], [place] | | | | | | [address] | | | | + + + [...] EXTERNAL | | | | performed at [facility];888 | mmol/L | LAB | | | | [address];[place] | | | | | | [address] | | | | + + + + + + | K | 4.8Comment: Testing | 3.5 - 4.9 | EXTERNAL | | | | performed at [facility];888 | mmol/L | LAB | | | | [address];[place] | | | | | | [address] | | | | + + + + + + | Cl | 108Comment: Testing | 99 - 109 mmol/L | EXTERNAL | | | | performed at [facility];[address] | | LAB | | | | [address];[place] | | | | | | [address] | | | | + + + + + + | CO2 | 24Comment: Testing | 23 - 32 mmol/L | EXTERNAL | | | | performed at [facility];[address] | | LAB | | | | [address];[place] | | | | | | [address] | | | | + + + + + + | Anion Gap | 14Comment: Testing | 5 - 20 mmol/L | EXTERNAL | | | | performed at [facility];[address] | | LAB | | | | [address];[place] | | | | | | [address] | | | | + + + + + + | Glucose, | 129 (H)Comment: Testing | 65 - 99 mg/dL | EXTERNAL | | | Fasting | performed at [facility];[address] | | LAB | | | | [address];[place] | | | | | | [address] | | | | + + + + + + | BUN | 17Comment: Testing | 8 - 25 mg/dL | EXTERNAL | | | | performed at [facility];[address] | | LAB | | | | [address];[place] | | | | | | [address] | | | | + + + + + + | Creatinine | 0.94Comment: Testing | 0.70 - 1.30 | EXTERNAL | | | | performed at [facility];888 | mg/dL | LAB | | | | [address];[place] | | | | | | [address] | | | | + + + + + + | BUN/Creatin | 19Comment: Testing | | EXTERNAL | | | ine Ratio | performed at [facility];[address] | | LAB | | | | [address];[place] | | | | | | [address] | | | | + + + + + + | Calcium | 8.3 (L)Comment: Testing | 8.5 - 10.2 | EXTERNAL | | | | performed at [facility];888 | mg/dL | LAB | | | | [address];[place] | | | | | | [address] | | | | + + + [...] | | | | | | at [facility];[address] [place] [address] | | | | | | vd;[place] [address] | | | | + + + [...] | | | (Calc) | performed at [facility];888 | mmol/L | LAB | | | | [address];[place], [place] | | | | | | [address] | | | | + + + + + + | pH, Bld | 7.331Comment: Testing | 7.300 - 7.450 | EXTERNAL | | | | performed at [facility];[address] | | LAB | | | | [address];[place], [place] | | | | | | [address] | | | | + + + [...] This is a non-reportable procedure without a boarding specialist report and | | | is used for image storage only. Please review the operative | | | procedure notes for details on the procedure. | | + + + + + | Procedure Note | + + | Raudel Aguillon - 01/18/2019 9:23 PM PDT This is a non-reportable procedure | | without a boarding specialist report and isused for image storage only. [...] EXTERNAL | | | | performed at [facility];[address] | | LAB | | | | [address];[place], [place] | | | | | | [address] | | | | + + + + + + | PCO2 ART | 40Comment: Testing | 35 - 45 mmHg | EXTERNAL | | | | performed at [facility];[address] | | LAB | | | | [address];[place] | | | | | | [address] | | | | + + + + + + | PO2 ART | 268 (H)Comment: Testing | 80 - 105 mmHg | EXTERNAL | | | | performed at [facility];[address] | | LAB | | | | [address];[place] | | | | | | [address] | | | | + + + + + + | HCO3 ART | 27 (H)Comment: Testing | 22 - 26 mmol/L | EXTERNAL | | | | performed at [facility];[address] | | LAB | | | | [address];[place] | | | | | | [address] | | | | + + + + + + | POC | 28 (H)Comment: Testing | 23 - 27 mEq/L | EXTERNAL | | | APPEARANCE | performed at [facility];888 | | LAB | | | UA | [address];[place] | | | | | | [address] | | | | + + + + + + | Base | 2Comment: Testing | 0 - 3 mEq/L | EXTERNAL | | | Excess, | performed at [facility];[address] | | LAB | | | Arterial | [address];[place] | | | | | | [address] | | | | + + + + + + | O2 SAT ART | 100 (H)Comment: Testing | 95 - 98 % | EXTERNAL | | | | performed at [facility];[address] | | LAB | | | | [address];[place] | | | | | | [address] | | | | + + + + + + | Sodium, POC | 136Comment: Testing | 135 - 145 mEq/L | EXTERNAL | | | | performed at [facility];[address] | | LAB | | | | [address];[place] | | | | | | [address] | | | | + + + + + + | Potassium, | 5.0Comment: Testing | 3.5 - 5.0 mEq/L | EXTERNAL | | | POC | performed at [facility];[address] | | LAB | | | | [address];[place] | | | | | | [address] | | | | + + + + + + | Ionized | 1.23Comment: Testing | 1.12 - 1.32 | EXTERNAL | | | Calcium, | performed at [facility];888 | mmol/L | LAB | | | POC | [address];[place] | | | | | | [address] | | | | + + + + + + | Glucose, | 112 (H)Comment: Testing | 65 - 99 mg/dL | EXTERNAL | | | POC | performed at [facility];[address] | | LAB | | | | [address];[place] | | | | | | [address] | | | | + + + + + + | Hematocrit, | 25 (L)Comment: Testing | 40.0 - 50.0 % | EXTERNAL | | | POC | performed at [facility];[address] | | LAB | | | | [address];[place] | | | | | | [address] | | | | + + + + + + | Hemoglobin, | 8.5 (L)Comment: Testing | 13.7 - 16.7 | EXTERNAL | | | POC | performed at [facility];888 | g/dL | LAB | | | | [address];[place] | | | | | | [address] | | | | + + + [...] | | LAB | | | | [facility];[address] | | | | | | [address];[place] [address] | | | | + + + + + + | PCO2 ART | 38Comment: Testing | 35 - 45 mmHg | EXTERNAL | | | | performed at [facility];[address] | | LAB | | | | [address];[place] | | | | | | [address] | | | | + + + + + + | PO2 ART | 196 (H)Comment: Testing | 80 - 105 mmHg | EXTERNAL | | | | performed at [facility];[address] | | LAB | | | | [address];[place] | | | | | | [address] | | | | + + + + + + | HCO3 ART | 28 (H)Comment: Testing | 22 - 26 mmol/L | EXTERNAL | | | | performed at [facility];[address] | | LAB | | | | [address];[place] | | | | | | [address] | | | | + + + + + + | POC | 29 (H)Comment: Testing | 23 - 27 mEq/L | EXTERNAL | | | APPEARANCE | performed at [facility];[address] | | LAB | | | UA | [address];[place] | | | | | | [address] | | | | + + + + + + | Base | 4 (H)Comment: Testing | 0 - 3 mEq/L | EXTERNAL | | | Excess, | performed at [facility];[address] | | LAB | | | Arterial | [address];[place] | | | | | | [address] | | | | + + + + + + | O2 SAT ART | 100 (H)Comment: Testing | 95 - 98 % | EXTERNAL | | | | performed at [facility];[address] | | LAB | | | | [address];[place] | | | | | | [address] | | | | + + + + + + | Sodium, POC | 137Comment: Testing | 135 - 145 mEq/L | EXTERNAL | | | | performed at [facility];[address] | | LAB | | | | [address];[place] | | | | | | [address] | | | | + + + + + + | Potassium, | 5.8 (H)Comment: Testing | 3.5 - 5.0 mEq/L | EXTERNAL | | | POC | performed at [facility];[address] | | LAB | | | | [address];[place] | | | | | | [address] | | | | + + + + + + | Ionized | 1.08 (L)Comment: Testing | 1.12 - 1.32 | EXTERNAL | | | Calcium, | performed at [facility];888 | mmol/L | LAB | | | POC | [address];[place] | | | | | | [address] | | | | + + + + + + | Glucose, | 100 (H)Comment: Testing | 65 - 99 mg/dL | EXTERNAL | | | POC | performed at [facility];[address] | | LAB | | | | [address];[place] | | | | | | [address] | | | | + + + + + + | Hematocrit, | 25 (L)Comment: Testing | 40.0 - 50.0 % | EXTERNAL | | | POC | performed at [facility];[address] | | LAB | | | | [address];[place] | | | | | | [address] | | | | + + + + + + | Hemoglobin, | 8.5 (L)Comment: Testing | 13.7 - 16.7 | EXTERNAL | | | POC | performed at [facility];888 | g/dL | LAB | | | | [address];[place], [place] | | | | | | [address] | | | | + + + [...] EXTERNAL | | | | performed at [facility];888 | | LAB | | | | [address];[place] | | | | | | [address] | | | | + + + + + + | PCO2 ART | 43Comment: Testing | 35 - 45 mmHg | EXTERNAL | | | | performed at [facility];[address] | | LAB | | | | [address];[place] | | | | | | [address] | | | | + + + + + + | PO2 ART | 264 (H)Comment: Testing | 80 - 105 mmHg | EXTERNAL | | | | performed at [facility];[address] | | LAB | | | | [address];[place] | | | | | | [address] | | | | + + + + + + | HCO3 ART | 29 (H)Comment: Testing | 22 - 26 mmol/L | EXTERNAL | | | | performed at [facility];[address] | | LAB | | | | [address];[place] | | | | | | [address] | | | | + + + + + + | POC | 30 (H)Comment: Testing | 23 - 27 mEq/L | EXTERNAL | | | APPEARANCE | performed at [facility];888 | | LAB | | | UA | [address];[place] | | | | | | [address] | | | | + + + + + + | Base | 4 (H)Comment: Testing | 0 - 3 mEq/L | EXTERNAL | | | Excess, | performed at [facility];[address] | | LAB | | | Arterial | [address];[place] | | | | | | [address] | | | | + + + + + + | O2 SAT ART | 100 (H)Comment: Testing | 95 - 98 % | EXTERNAL | | | | performed at [facility];[address] | | LAB | | | | [address];[place] | | | | | | [address] | | | | + + + + + + | Sodium, POC | 137Comment: Testing | 135 - 145 mEq/L | EXTERNAL | | | | performed at [facility];[address] | | LAB | | | | [address];[place] | | | | | | [address] | | | | + + + + + + | Potassium, | 4.7Comment: Testing | 3.5 - 5.0 mEq/L | EXTERNAL | | | POC | performed at [facility];[address] | | LAB | | | | [address];[place] | | | | | | [address] | | | | + + + + + + | Ionized | 1.09 (L)Comment: Testing | 1.12 - 1.32 | EXTERNAL | | | Calcium, | performed at [facility];888 | mmol/L | LAB | | | POC | [address];[place] | | | | | | [address] | | | | + + + + + + | Glucose, | 96Comment: Testing | 65 - 99 mg/dL | EXTERNAL | | | POC | performed at [facility];[address] | | LAB | | | | [address];[place] | | | | | | [address] | | | | + + + + + + | Hematocrit, | 26 (L)Comment: Testing | 40.0 - 50.0 % | EXTERNAL | | | POC | performed at [facility];[address] | | LAB | | | | [address];[place] | | | | | | [address] | | | | + + + + + + | Hemoglobin, | 8.8 (L)Comment: Testing | 13.7 - 16.7 | EXTERNAL | | | POC | performed at [facility];888 | g/dL | LAB | | | | [address];[place] | | | | | | [address] | | | | + + + [...] EXTERNAL | | | | performed at [facility];[address] | | LAB | | | | [address];[place] | | | | | | [address] | | | | + + + + + + | PCO2 ART | 50 (H)Comment: Testing | 35 - 45 mmHg | EXTERNAL | | | | performed at [facility];[address] | | LAB | | | | [address];[place] | | | | | | [address] | | | | + + + + + + | PO2 ART | 303 (H)Comment: Testing | 80 - 105 mmHg | EXTERNAL | | | | performed at [facility];[address] | | LAB | | | | [address];[place] | | | | | | [address] | | | | + + + + + + | HCO3 ART | 29 (H)Comment: Testing | 22 - 26 mmol/L | EXTERNAL | | | | performed at [facility];[address] | | LAB | | | | [address];[place] | | | | | | [address] | | | | + + + + + + | POC | 31 (H)Comment: Testing | 23 - 27 mEq/L | EXTERNAL | | | APPEARANCE | performed at [facility];[address] | | LAB | | | UA | [address];[place] | | | | | | [address] | | | | + + + + + + | Base | 4 (H)Comment: Testing | 0 - 3 mEq/L | EXTERNAL | | | Excess, | performed at [facility];[address] | | LAB | | | Arterial | [address];[place] | | | | | | [address] | | | | + + + + + + | O2 SAT ART | 100 (H)Comment: Testing | 95 - 98 % | EXTERNAL | | | | performed at [facility];[address] | | LAB | | | | [address];[place] | | | | | | [address] | | | | + + + + + + | Sodium, POC | 135Comment: Testing | 135 - 145 mEq/L | EXTERNAL | | | | performed at [facility];[address] | | LAB | | | | [address];[place] | | | | | | [address] | | | | + + + + + + | Potassium, | 6.4 (HH)Comment: Testing | 3.5 - 5.0 mEq/L | EXTERNAL | | | POC | performed at [facility];[address] | | LAB | | | | [address];[place] | | | | | | [address] | | | | + + + + + + | Ionized | 1.07 (L)Comment: Testing | 1.12 - 1.32 | EXTERNAL | | | Calcium, | performed at [facility];888 | mmol/L | LAB | | | POC | [address];[place] | | | | | | [address] | | | | + + + + + + | Glucose, | 101 (H)Comment: Testing | 65 - 99 mg/dL | EXTERNAL | | | POC | performed at [facility];[address] | | LAB | | | | [address];[place] | | | | | | [address] | | | | + + + + + + | Hematocrit, | 24 (L)Comment: Testing | 40.0 - 50.0 % | EXTERNAL | | | POC | performed at [facility];[address] | | LAB | | | | [address];[place] | | | | | | [address] | | | | + + + + + + | Hemoglobin, | 8.2 (L)Comment: Testing | 13.7 - 16.7 | EXTERNAL | | | POC | performed at [facility];888 | g/dL | LAB | | | | [address];[place] | | | | | | [address] | | | | + + + [...] | | LAB | | | | [facility];[address];[place] [address] | | | | + + + + + + | PCO2 ART | 66 (HH)Comment: Testing | 35 - 45 mmHg | EXTERNAL | | | | performed at [facility];[address] | | LAB | | | | [address];[place] | | | | | | [address] | | | | + + + + + + | PO2 ART | 405 (H)Comment: Testing | 80 - 105 mmHg | EXTERNAL | | | | performed at [facility];[address] | | LAB | | | | [address];[place] | | | | | | [address] | | | | + + + + + + | HCO3 ART | 29 (H)Comment: Testing | 22 - 26 mmol/L | EXTERNAL | | | | performed at [facility];[address] | | LAB | | | | [address];[place] | | | | | | [address] | | | | + + + + + + | POC | 31 (H)Comment: Testing | 23 - 27 mEq/L | EXTERNAL | | | APPEARANCE | performed at [facility];[address] | | LAB | | | UA | [address];[place] | | | | | | [address] | | | | + + + + + + | Base | 2Comment: Testing | 0 - 3 mEq/L | EXTERNAL | | | Excess, | performed at [facility];[address] | | LAB | | | Arterial | [address];[place] | | | | | | [address] | | | | + + + + + + | O2 SAT ART | 100 (H)Comment: Testing | 95 - 98 % | EXTERNAL | | | | performed at [facility];[address] | | LAB | | | | [address];[place] | | | | | | [address] | | | | + + + + + + | Sodium, POC | 135Comment: Testing | 135 - 145 mEq/L | EXTERNAL | | | | performed at [facility];[address] | | LAB | | | | [address];[place] | | | | | | [address] | | | | + + + + + + | Potassium, | 4.4Comment: Testing | 3.5 - 5.0 mEq/L | EXTERNAL | | | POC | performed at [facility];[address] | | LAB | | | | [address];[place] | | | | | | [address] | | | | + + + + + + | Ionized | 1.21Comment: Testing | 1.12 - 1.32 | EXTERNAL | | | Calcium, | performed at [facility];888 | mmol/L | LAB | | | POC | [address];[place] | | | | | | [address] | | | | + + + + + + | Glucose, | 107 (H)Comment: Testing | 65 - 99 mg/dL | EXTERNAL | | | POC | performed at [facility];[address] | | LAB | | | | [address];[place] | | | | | | [address] | | | | + + + + + + | Hematocrit, | 32 (L)Comment: Testing | 40.0 - 50.0 % | EXTERNAL | | | POC | performed at [facility];[address] | | LAB | | | | [address];[place] | | | | | | [address] | | | | + + + + + + | Hemoglobin, | 10.9 (L)Comment: Testing | 13.7 - 16.7 | EXTERNAL | | | POC | performed at [facility];888 | g/dL | LAB | | | | [address];[place] | | | | | | [address] | | | | + + + [...] EXTERNAL | | | | performed at [facility];[address] | | LAB | | | | [address];[place] | | | | | | [address] | | | | + + + + + + | PCO2 ART | 45Comment: Testing | 35 - 45 mmHg | EXTERNAL | | | | performed at [facility];[address] | | LAB | | | | [address];[place] | | | | | | [address] | | | | + + + + + + | PO2 ART | 288 (H)Comment: Testing | 80 - 105 mmHg | EXTERNAL | | | | performed at [facility];[address] | | LAB | | | | [address];[place] | | | | | | [address] | | | | + + + + + + | HCO3 ART | 28 (H)Comment: Testing | 22 - 26 mmol/L | EXTERNAL | | | | performed at [facility];[address] | | LAB | | | | [address];[place] | | | | | | [address] | | | | + + + + + + | POC | 30 (H)Comment: Testing | 23 - 27 mEq/L | EXTERNAL | | | APPEARANCE | performed at [facility];[address] | | LAB | | | UA | [address];[place] | | | | | | [address] | | | | + + + + + + | Base | 4 (H)Comment: Testing | 0 - 3 mEq/L | EXTERNAL | | | Excess, | performed at [facility];888 | | LAB | | | Arterial | [address];[place] | | | | | | [address] | | | | + + + + + + | O2 SAT ART | 100 (H)Comment: Testing | 95 - 98 % | EXTERNAL | | | | performed at [facility];[address] | | LAB | | | | [address];[place] | | | | | | [address] | | | | + + + + + + | Sodium, POC | 138Comment: Testing | 135 - 145 mEq/L | EXTERNAL | | | | performed at [facility];[address] | | LAB | | | | [address];[place] | | | | | | [address] | | | | + + + + + + | Potassium, | 3.8Comment: Testing | 3.5 - 5.0 mEq/L | EXTERNAL | | | POC | performed at [facility];[address] | | LAB | | | | [address];[place] | | | | | | [address] | | | | + + + + + + | Ionized | 1.22Comment: Testing | 1.12 - 1.32 | EXTERNAL | | | Calcium, | performed at [facility];888 | mmol/L | LAB | | | POC | [address];[place] | | | | | | [address] | | | | + + + + + + | Glucose, | 88Comment: Testing | 65 - 99 mg/dL | EXTERNAL | | | POC | performed at [facility];888 | | LAB | | | | [address];[place] | | | | | | [address] | | | | + + + + + + | Hematocrit, | 30 (L)Comment: Testing | 40.0 - 50.0 % | EXTERNAL | | | POC | performed at [facility];[address] | | LAB | | | | [address];[place] | | | | | | [address] | | | | + + + + + + | Hemoglobin, | 10.2 (L)Comment: Testing | 13.7 - 16.7 | EXTERNAL | | | POC | performed at [facility];888 | g/dL | LAB | | | | [address];[place] | | | | | | [address] | | | | + + + [...] | | | Fingerstick | performed at [facility];[address] | | LAB | | | | [address];[place] | | | | | | [address] | | | | + + + [...] + + | Historically converted procedure from [facility] | EXTERNAL LAB | + + [...] | | | Patient | performed at [facility];888 | | LAB | | | | [address];[place] | | | | | | [address] | | | | + + + [...] | | | | | performed at [facility];888 | | | | | | [facility];[place], [place] | | | | | | [address] | | | | + + + [...] | | | Patient | performed at [facility];888 | | LAB | | | | [address];[place] | | | | | | [address] | | | | + + + [...] CHEST 2 VIEW FRONTAL | | AND WMIJULU88/5/2014 6:17 PM History: 78 years. Male. Aortic [...] | | | Patient | performed at [facility];[address] | | LAB | | | | [address];[place], [place] | | | | | | [address] | | | | + + + [...] EXTERNAL LAB | | Testing performed at [address];[place] [address] MRSA PCR | | | NEGATIVE Testing performed at | | | [address];[place] [address] | | + + + + +---------+ [...] common femoral vein was cannulized with a 7-Namibian sheath and | | | the right common femoral artery was cannulized with a 6-Namibian | | | sheath. Over a guidewire a 5-Namibian FL-4 diagnostic catheter was | | | advanced to the ascending aorta and found to be too short. So it was | | | exchanged for a 5-Namibian FL-6 catheter that selectively engaged the | | | left main. Contrast was injected. A selective angiogram for the left | | | main, LAD, and left circumflex arteries was performed in different | | | views. Over a guidewire it was exchanged for a diagnostic 5-Namibian | | | FR-4 catheter selectively engaging the right coronary artery. | | | Contrast was injected. A selective angiogram for the right coronary | | | artery was performed in different views. Over a guidewire it was | | | exchanged for a 5-Namibian FR-4 diagnostic catheter that selectively | | | engaged the RCA. Contrast was injected. Selective angiogram for the | | | RCA was performed in different views. The catheter was removed. | | | Through the venous sheath, a [place]-Christiana catheter was advanced to the | | [...] success, and so it was exchanged for 5-Namibian | | | AL-1 diagnostic catheter with a fixed cord straight tip wire. I was | | | able to advance the AL-1 to the left ventricle, and the AL-1 was | | | exchanged over a 260 exchange wire to a 6-Namibian Logan catheter | | | that was advanced to the left ventricle. Gradient across the aortic | | | valve was measured and the gradient across the mitral valve was | | | measured with the wedge position. Then the [place]-Christiana catheter was | | | removed. The Logan catheter was removed over the guidewire, and | | | both sheaths were removed. Manual pressure was held for 20 minutes | | | with good hemostasis. The patient [facility] recovery [facility]. FINDINGS HEMODYNAMICS 1. Systemic | | | pressure 103/62. 2. Left ventricular end-diastolic pressure 21 mmHg. | | | 3. Peum-qr-evyr gradient across the aortic valve 46 mmHg. [...] vein was cannulized | | with a 7-Namibian sheath and the right common femoral artery was cannulized | | with a 6-Namibian sheath. Over a guidewire a 5-Namibian FL-4 diagnostic | | catheter was advanced to the ascending aorta and found to be too short. So | | it was exchanged for a 5-Namibian FL-6 catheter that selectively engaged the | | left main. Contrast was injected. A selective angiogram for the left main, | | LAD, and left circumflex arteries was performed in different views. Over a | | guidewire it was exchanged for a diagnostic 5-Namibian FR-4 catheter | | selectively engaging the right coronary artery. Contrast was injected. A | | selective angiogram for the right coronary artery was performed in | | different views. Over a guidewire it was exchanged for a 5-Namibian FR-4 | | diagnostic catheter that selectively engaged the RCA. Contrast was | | injected. Selective angiogram for the RCA was performed in different | | views. | | | | The catheter was removed. | | | | Through the venous sheath, a [place]-Christiana catheter was advanced to the right | [...] success, and so it was exchanged for 5-Namibian AL-1 diagnostic catheter | | with a fixed cord straight tip wire. I was able to advance the AL-1 to the | | left ventricle, and the AL-1 was exchanged over a 260 exchange wire to a | | 6-Namibian Alex catheter that was advanced to the left ventricle. | | Gradient across the aortic valve was measured and the gradient across the | | mitral valve was measured with the wedge position. Then the [place]-Christiana | | catheter was removed. The Alex [...] end-diastolic pressure 21 mmHg. | | 3. Noim-tz-rdxa gradient across the aortic valve 46 mmHg. [...] EXTERNAL | | | Patient | NURSING [id number],FRANSISCA | | LAB | | | | B AT 0235 BY [facility] BACK | | | | | | RESULTS VERIFIEDTesting | | | | | | performed at [facility];[address] | | | | | | [address];[place], [place] | | | | | | [address] | | | | + + + [...] | | | | | performed at [facility] | | | | | | [facility];[place], [place] | | | | | | [address] | | | | + + + [...] LAB | | | | 1851 BY [employer] BACK | | | | | | RESULTS VERIFIEDTesting | | | | | | performed at [facility];[address] | | | | | | [address];[place] | | | | | | [address] | | | | + + + [...] EXTERNAL | | | | performed at [facility];[address] | | LAB | | | | [address];[place] | | | | | | [address] | | | | + + + + + + | Non- | 3.52 (L)Comment: Testing | 4.20 - 5.70 | EXTERNAL | | | Red Blood | performed at [facility];888 | M/uL | LAB | | | Cells | [address];[place] | | | | | Counted | [address] | | | | + + + + + + | Hemoglobin | 11.4 (L)Comment: Testing | 13.2 - 17.0 | EXTERNAL | | | | performed at [facility];888 | g/dL | LAB | | | | [address];[place] | | | | | | [address] | | | | + + + + + + | Hematocrit, | 34.1 (L)Comment: Testing | 39.0 - 50.0 % | EXTERNAL | | | POC | performed at [facility];[address] | | LAB | | | | [address];[place] | | | | | | [address] | | | | + + + + + + | MCV | 96.7Comment: Testing | 80.0 - 100.0 fl | EXTERNAL | | | | performed at [facility];[address] | | LAB | | | | [address];[place] | | | | | | [address] | | | | + + + + + + | MCH | 32.2Comment: Testing | 27.0 - 34.0 pg | EXTERNAL | | | | performed at [facility];[address] | | LAB | | | | [address];[place] | | | | | | [address] | | | | + + + + + + | MCHC | 33.3Comment: Testing | 32.0 - 35.5 | EXTERNAL | | | | performed at [facility];888 | g/dL | LAB | | | | [address];[place] | | | | | | [address] | | | | + + + + + + | RDW-CV | 56.4 (H)Comment: Testing | 37 - 53 fl | EXTERNAL | | | | performed at [facility];[address] | | LAB | | | | [address];[place] | | | | | | [address] | | | | + + + + + + | Platelet | 178Comment: Testing | 150 - 400 K/uL | EXTERNAL | | | Count | performed at [facility];[address] | | LAB | | | Plasma | [address];[place] | | | | | | [address] | | | | + + + + + + | MPV | 8.1Comment: Testing | fl | EXTERNAL | | | | performed at [facility];[address] | | LAB | | | | [address];[place] | | | | | | [address] | | | | + + + [...] | | | Patient | performed at [facility];[address] | | LAB | | | | [address];[place] | | | | | | [address] | | | | + + + [...] | | | | | performed at [facility] | | | | | | [facility];[place] | | | | | | [address] | | | | + + + [...] | | | | | performed at [facility];[address] | | | | | | [facility];[place], [place] | | | | | | [address] | | | | + + + [...] EXTERNAL | | | | performed at [facility], [address] | | LAB | | | | [address], | | | | | | [place] [address] | | | | + + + + + + | Non- | 3.27 (L)Comment: Testing | 4.20 - 5.70 | EXTERNAL | | | Red Blood | performed at [facility], [address] | M/uL | LAB | | | Cells | [address], | | | | | Counted | [place] [address] | | | | + + + + + + | Hemoglobin | 10.4 (L)Comment: Testing | 13.2 - 17.0 | EXTERNAL | | | | performed at [facility], [address] | g/dL | LAB | | | | [address], | | | | | | [place] [address] | | | | + + + + + + | Hematocrit, | 32.2 (L)Comment: Testing | 39.0 - 50.0 % | EXTERNAL | | | POC | performed at [facility], [address] | | LAB | | | | [address], | | | | | | [place] [address] | | | | + + + + + + | MCV | 98.6Comment: Testing | 80.0 - 100.0 fl | EXTERNAL | | | | performed at [facility], [address] | | LAB | | | | [address], | | | | | | [place] [address] | | | | + + + + + + | MCH | 31.9Comment: Testing | 27.0 - 34.0 pg | EXTERNAL | | | | performed at [facility], [address] | | LAB | | | | [address], | | | | | | [place] [address] | | | | + + + + + + | MCHC | 32.4Comment: Testing | 32.0 - 35.5 | EXTERNAL | | | | performed at [facility], [address] | g/dL | LAB | | | | [address], | | | | | | [place] [address] | | | | + + + + + + | RDW-CV | 56.9 (H)Comment: Testing | 37 - 53 fl | EXTERNAL | | | | performed at [facility], [address] | | LAB | | | | [address], | | | | | | [place] [address] | | | | + + + + + + | Platelet | 168Comment: Testing | 150 - 400 K/uL | EXTERNAL | | | Count | performed at [facility], [address] | | LAB | | | Plasma | [address], | | | | | | [place] [address] | | | | + + + + + + | MPV | 8.7Comment: Testing | fl | EXTERNAL | | | | performed at [facility], [address] | | LAB | | | | [address], | | | | | | [place] [address] | | | | + + + + + + | Differentia | AUTOMATEDComment: | | EXTERNAL | | | l Type | Testing performed at | | LAB | | | | [facility], [address] | | | | | | [place] | | | | | | [address] | | | | + + + + + + | % Segmented | 81.1Comment: Testing | % | EXTERNAL | | | | performed at [facility], [address] | | LAB | | | Neutrophils | [address], | | | | | | [place] [address] | | | | + + + + + + | % | 8.6Comment: Testing | % | EXTERNAL | | | Lymphocytes | performed at [facility], [address] | | LAB | | | | [address], | | | | | | [place] [address] | | | | + + + + + + | % Monocytes | 7.2Comment: Testing | % | EXTERNAL | | | | performed at [facility], [address] | | LAB | | | | [address], | | | | | | [place] [address] | | | | + + + + + + | % | 2.2Comment: Testing | % | EXTERNAL | | | Eosinophils | performed at [facility], [address] | | LAB | | | | [address], | | | | | | [place] [address] | | | | + + + + + + | % Basophils | 0.9Comment: Testing | % | EXTERNAL | | | | performed at [facility], [address] | | LAB | | | | [address], | | | | | | [place] [address] | | | | + + + + + + | Absolute | 6.5Comment: Testing | 1.9 - 7.4 K/uL | EXTERNAL | | | Segmented | performed at [facility], [address] | | LAB | | | Neutrophils | [address], | | | | | | [place] [address] | | | | + + + + + + | Absolute | 0.7 (L)Comment: Testing | 1.0 - 3.9 K/uL | EXTERNAL | | | Lymphocytes | performed at [facility], [address] | | LAB | | | | [address], | | | | | | [place] [address] | | | | + + + + + + | Absolute | 0.6Comment: Testing | 0 - 0.8 K/uL | EXTERNAL | | | Monocytes | performed at [facility], [address] | | LAB | | | | [address], | | | | | | [place] [address] | | | | + + + + + + | Absolute | 0.2Comment: Testing | 0 - 0.5 K/uL | EXTERNAL | | | Eosinophils | performed at [facility], [address] | | LAB | | | | [address], | | | | | | [place] [address] | | | | + + + + + + | Absolute | 0.1Comment: Testing | 0 - 0.1 K/uL | EXTERNAL | | | Basophils | performed at [facility], [address] | | LAB | | | | [address], | | | | | | [place] [address] | | | | + + + [...] | | | | [place] [address] | | | | + + + + + + | K | 4.2Comment: Testing | 3.5 - 4.9 | EXTERNAL | | | | performed at [facility], [address] | mmol/L | LAB | | | | [address], | | | | | | [place] [address] | | | | + + + + + + | Cl | 100Comment: Testing | 99 - 109 mmol/L | EXTERNAL | | | | performed at [facility], [address] | | LAB | | | | [address], | | | | | | [place] [address] | | | | + + + + + + | CO2 | 29Comment: Testing | 23 - 32 mmol/L | EXTERNAL | | | | performed at [facility], [address] | | LAB | | | | [address], | | | | | | [place] [address] | | | | + + + + + + | Anion Gap | 9Comment: Testing | 5 - 20 mmol/L | EXTERNAL | | | | performed at [facility], [address] | | LAB | | | | [address], | | | | | | [place] [address] | | | | + + + + + + | Glucose, | 133 (H)Comment: Testing | 65 - 99 mg/dL | EXTERNAL | | | Fasting | performed at [facility], [address] | | LAB | | | | [address], | | | | | | [place] [address] | | | | + + + + + + | BUN | 31 (H)Comment: Testing | 8 - 25 mg/dL | EXTERNAL | | | | performed at [facility], [address] | | LAB | | | | [address], | | | | | | [place] [address] | | | | + + + + + + | Creatinine | 1.28Comment: Testing | 0.70 - 1.30 | EXTERNAL | | | | performed at [facility], [address] | mg/dL | LAB | | | | [address], | | | | | | [place] [address] | | | | + + + + + + | BUN/Creatin | 24Comment: Testing | | EXTERNAL | | | ine Ratio | performed at [facility], [address] | | LAB | | | | [address], | | | | | | [place] [address] | | | | + + + + + + | Calcium | 9.1Comment: Testing | 8.5 - 10.2 | EXTERNAL | | | | performed at [facility], [address] | mg/dL | LAB | | | | [address], | | | | | | [place] [address] | | | | + + + + + + | Protein, | 6.4Comment: Testing | 6.3 - 8.2 g/dL | EXTERNAL | | | Total | performed at [facility], [address] | | LAB | | | | [address], | | | | | | [place] [address] | | | | + + + + + + | Albumin | 3.6Comment: Testing | 3.3 - 4.8 g/dL | EXTERNAL | | | | performed at [facility], [address] | | LAB | | | | [address], | | | | | | [place] [address] | | | | + + + + + + | Globulin | 2.8Comment: Testing | 1.3 - 4.9 g/dL | EXTERNAL | | | | performed at [facility], [address] | | LAB | | | | [address], | | | | | | [place] [address] | | | | + + + + + + | A/G Ratio | 1.3Comment: Testing | 1.0 - 2.4 | EXTERNAL | | | | performed at [facility], [address] | | LAB | | | | [address], | | | | | | [place] [address] | | | | + + + + + + | Bilirubin | 1.3Comment: Testing | 0.1 - 1.5 mg/dL | EXTERNAL | | | Total | performed at [facility], [address] | | LAB | | | | [address], | | | | | | [place] [address] | | | | + + + + + + | ALP, | 61Comment: Testing | 35 - 115 U/L | EXTERNAL | | | External | performed at [facility], [address] | | LAB | | | | [address], | | | | | | [place] [address] | | | | + + + + + + | AST | 26Comment: Testing | 10 - 45 U/L | EXTERNAL | | | | performed at [facility], [address] | | LAB | | | | [address], | | | | | | [place] [address] | | | | + + + + + + | ALT | 15Comment: Testing | 10 - 65 U/L | EXTERNAL | | | | performed at [facility], [address] | | LAB | | | | [address], | | | | | | [place] [address] | | | | + + + [...] | | | | | | at [facility], [address] | | | | | | [place] [address], | | | | | | [place] [address] | | | | + + + [...]
--- OUTSIDE RECORDS SUMMARY | ~2019-12-17 | XMS | Encounter Summary ---
Demographics + + + | Address | [address] | | | [place] [address] | + + + | Home Phone [...] | | | | [place] [address] | | + + + + + | Juana Gasca | ECON | [address] | | | | | [place] | | | | | [address] | | + + + + + | Chad Gasca | ECON | Unknown | | + + + + + Care Team Providers + +------+ + | Care Transportation Refrigeration Technician Name | Role | Phone | [...] + + | 10/29/ | Telephone | [facility] | Spenser Potter, | Cardiac Problem | | 2019 | | CARDIOLOGY JULIAN | [address] | | | | | [address] | [place], | | | | | [place] | [place] [address] | | | | | [address] | [phone] | | | | | [phone] | | | +--------+ + + + [...] 4:37 PM PDTPatient was scheduled for a Gifford pacemaker implant procedure for November 10. Procedure instructions and info was reviewe d with patient. Patient stated understanding, had no further questions or concerns. Electron eric signed by Marva Lozoya V at 11/04/2019 4:38 PM PDTTelephone Encounter - Spenser Potter MD - 10/30/2019 4:30 PM PDTReceived notification of this patient needs his Gifford Sci entific pacemaker changed out. It is a dual-chamber system but since he is in permanent A. fib, he will just need a single lead device. That will be done on November 10 at noon. He needs to get Hibiclens and prep his chest tonight before the procedure in the morning of.Marya reyse signed by Spenser Potter MD at 10/30/2019 [...] | | | | | [place], [place] | | | | | | [address] | | | | | | | [...]
--- OUTSIDE RECORDS SUMMARY | ~2019-12-17 | XMS | Encounter Summary ---
Demographics + + + | Address | [address] | | | [place] [address] | + + + | Home Phone [...] | | | | [place] [address] | | + + + + + | Juana Gasca | ECON | [address] | | | | | [place] | | | | | [address] | | + + + + + | Chad Gasca | ECON | Unknown | | + + + + + Care Team Providers + +------+ + | Care Blower And Compressor Assembler Name | Role | Phone | + +------+ + | Timo Lorenzana | PCP | | | MD | | | + +------+ + Encounter Details +--------+ + + + + | Date | Type | Department | Care Team | Description | +--------+ + + + + | 02/05/ | Hospital | [facility] | Conversion | Pain | | 2016 | Encounter | CONVERSION DEP [address] | Transaction, | | | | | [address] | Provider Unknown | | | | | [place] | [phone] | | | | | [address] | | | | | | [phone] | | | +--------+ + + + [...] | | | | | | [place] | | | | | | [address] | | | | | | | [...] Procedure Note | + + | Raudel Augillon - 01/17/2019 10:29 AM PDT This is a non-reportable procedure | | without a radiologist report and isused for image storage only | + + documented in this encounter Visit Diagnoses + + | Diagnosis | + + | Pain Generalized pain | + + documented in this encounter"
--- OUTSIDE RECORDS SUMMARY | ~2019-12-17 | XMS | Encounter Summary ---
Demographics + + + | Address | [address] | | | [place] [address] | + + + | Home Phone [...] | | | | [place] [address] | | + + + + + | Juana Gasca | ECON | [address] | | | | | [place] | | | | | [address] | | + + + + + | Chad Gasca | ECON | Unknown | | + + + + + Care Team Providers + +------+ + | Care Christian Science Healer Name | Role | Phone | + [...] + + | 04/29/ | Telephone | [facility] | Alicja Lloyd, | Weight Gain | | 2019 | | CARDIOLOGY JULIAN Davies RN | | | | | [address] | | | | | | [place] | | | | | | [address] | | | | | | [phone] | | | +--------+ + + + [...] | | | | | [place] | | | | | | [id number] | | | | | | | [...]
--- OUTSIDE RECORDS SUMMARY | ~2019-12-17 | XMS | Encounter Summary ---
Demographics + + + | Address | [address] | | | [place] [address] | + + + | Home Phone [...] | | | | [place] [address] | | + + + + + | Juana Ventura | ECON | [address] | | | | | [place] | | | | | [address] | | + + + + + | Chad Ventura | ECON | Unknown | | + + + + + Care Team Providers + +------+ + | Care Crane Engineer Name | Role | Phone | + +------+ + PCP | Unavailable | + +------+ + Encounter Details +--------+ + + + + | Date | Type | Department | Care Team | Description | +--------+ + + + + | 10/08/ | Hospital | [facility] | Gabriel Davila, | | | 2007 - | Encounter | [facility] | MD [address] | | | | | CARDIAC TRANSPLANT | [address] [address] | | | 10/10/ | | [address] | [place] [address] | | | 2007 | | [place] | [phone] | | | | | [address] | | | | | | [phone] | | | +--------+ + + + [...] follow him closely. Gabriel Davila MD A [facility]/dls #[id number] cc: DO Gabriel East MD Segundo VENTURA [id number] 10/11/07 DIS IN [id number] DISCHARGE SUMMARY Gabriel kee MD [facility] THIS REPORT IS CONFIDENTIAL AND NOT [...] at no time could clear DENISE VENTURA [id number] ADM IN [id number] OPERATIVE REPORT Gabriel kee MD E-SIGN: [facility] THIS REPORT IS CONFIDENTIAL AND NOT TO BE RELEASED WITHOUT PROPER AUTHORIZATION. [facility] criteria be made for atrial flutter. Gabriel Davila MD A DAC/bgb #[id number] cc: Gabriel kee MD VENTURASegundo D [id number] ADM IN [id number] OPERATIVE REPORT Gabriel kee MD E-SIGN: [facility] THIS REPORT IS CONFIDENTIAL AND NOT [...] complicatio ns. Gabriel Davila MD A DAC/dls #[id number] cc: Gabriel kee MD VENTURASegundo DWAYNE Guillen [id number] 10/11/07 DIS IN [id number] OPERATIVE REPORT Gabriel kee MD E-SIGN: R [facility] THIS REPORT IS CONFIDENTIAL AND NOT [...] | | | | | | [facility] [facility] [place] | | | | | | [id number] | | | | | | | [...]
--- OUTSIDE RECORDS SUMMARY | ~2019-12-17 | XMS | Encounter Summary ---
Demographics + + + | Address | [address] | | | [place] [address] | + + + | Home Phone [...] | | | | [place] [address] | | + + + + + | Juana Gasca | ECON | [address] | | | | | [place] | | | | | [address] | | + + + + + | Chad Gasca | ECON | Unknown | | + + + + + Care Team Providers + +------+ + | Care Storage Facility Housekeeper Name | Role | Phone | + [...] | [address] | | | | | [place] [address] | | | | | | [place], [place] | | | | | | [address] | | | | | | [phone] | | | +--------+ + + + [...] [place] | | | | | | [address] | | | | | | | [...]
--- OUTSIDE RECORDS SUMMARY | ~2019-12-17 | XMS | Encounter Summary ---
Demographics + + + | Address | [address] | | | [place] [address] | + + + | Home Phone [...] | | | | [place] [address] | | + + + + + | Juana Gasca | ECON | [address] | | | | | [place] | | | | | [address] | | + + + + + | Chad Gasca | ECON | Unknown | | + + + + + Care Team Providers + +------+ + | Care Supervisor Weaving Name | Role | Phone | + [...] + + | 06/25/ | Office | [facility] [place] | Off[place], | COPD (chronic | | 2014 | Visit | PULMONARY [address] | Florence You MD | obstructive | | | | [place], | | pulmonary disease) | | | | [place] [address] | | (Primary Dx); MARY | | | | [phone] | | (obstructive sleep | | | [...] an overnight oxy gen test through [facility]. Call the [email or web address] before you pick it up to make sure they have a box available. You will oyster picker a box at the [email or web address]. Do the t est on BiPAP only. [...] PM PSTFormatting of this note might be rubén nt from the original. Pulmonary Follow Up [...] not using his nebulizer at all. Phillip holalnd returns today for routine follow up. Currently [...] He notes when he we nt to [place], he did not take his oxygen with [...] inhaler 1 puff inhaled tw ice daily Ejcyzhojzng-Omszjuluq-Qjq C-Mn (GLUCOSAMINE 1500 COMPLEX PO) Take 1,500 [...] made to ensure accuracy; however, inadvertent computerized general internal medicine physician errors may be pre sent. documented in [...] | | | | | [place] | | | | | | [address] | | | | | | | [...]
--- OUTSIDE RECORDS SUMMARY | ~2019-12-17 | XMS | Encounter Summary ---
Demographics + + + | Address | [address] | | | [place] [address] | + + + | Home Phone [...] | | | | [place] [address] | | + + + + + | Juana Ventura | ECON | [address] | | | | | [place] | | | | | [address] | | + + + + + | Chad Ventura | ECON | Unknown | | + + + + + Care Team Providers + +------+ + | Care Heating And Ventilating Tender Name | Role | Phone | + +------+ + PCP | Unavailable | + +------+ + Encounter Details +--------+ + + + + | Date | Type | Department | Care Team | Description | +--------+ + + + + | 08/27/ | Hospital | [facility] | Gabriel Davila, | | | 2007 - | Encounter | [facility] | MD [address]el[address] | | | | | CARDIAC TELEMETRY | [address] [address] | | | 08/30/ | | [address] | [place] [address] | | | 2007 | | [place] | [phone] | | | | | [address] | | | | | | [phone] | | | +--------+ + + + [...] in the office. Gabriel Davila MD P [facility] #[id number] cc: Gabriel Davila MD Segundo VENTURABrianne Wilmer [id number] 08/31/07 DIS IN Z603-01 [id number] DISCHARGE SUMMARY Gabriel kee MD [facility] THIS REPORT IS CONFIDENTIAL AND NOT TO BE RELEASED WITHOUT PROPER AUTHORIZATION.Electronica lly signed by Gabriel Davila MD at 04/12/2013 5:09 AM PSTdocumented in this encounter Miscellaneous Notes Op Note - Gabriel Davila MD - 04/10/2013 4:15 PM PSTPATIENT NAME: Serge Ventura Age/Sex: 72/M SURGEON: Sudhir Davila MD SURGERY DATE: 08/30/2007 COSURGEON: SENIOR DATA SCIENTIST: OPERATIVE PROCEDURE: 1. Electrophysiology study. 2. Three-dimensional [...] did not effect the tachycardia. Segundo VENTURA [id number] 08/31/07 DIS IN [id number] OPERATIVE REPORT Gabriel kee MD E-SIGN: R [facility] THIS REPORT IS CONFIDENTIAL AND NOT TO BE RELEASED WITHOUT PROPER AUTHORIZATION. [facility] Gabriel Davila MD A [facility] #[id number] cc: Gabriel Davila MD Segundo VENTURA [id number] 08/31/07 [facility] IN Z603-01 [id number] OPERATIVE REPORT Gabriel kee MD E-SIGN: R [facility] THIS REPORT IS CONFIDENTIAL AND NOT TO BE RELEASED WITHOUT PROPER AUTHORIZATION.Electronica lly signed by Gabriel Davila MD at 04/12/2013 5:09 AM PSTOp Note - Gabriel Davila MD - 04/10/2013 4:15 PM PSTPATIENT NAME: Serge Ventura Age/Sex: 72/M SURGEON: Suhdir Davila MD SURGERY DATE: 08/30/2007 REFERRING MD: Flako Fortune MD PROCEDURE: 1. DDD pacemaker placement 2. Lead evaluation 3. Cardiac fluoroscopy 4. Subclavian Venogram DIAGNOSIS: 1. SVT Implanted Device Implanted Atrial Lead Implanted Ventricular Lead Implant 08/30/2007 Implant Date 08/30/07 Implant Date 08/29/07 Date Manufacture Gunite Nozzle Operator St. Herb Gunite Nozzle Operator r Model 1291 Model 1882TC Model 4088 Serial [id number] Serial [id number] Serial [id number] Atrial Lead Measurements Ventricular Lead Measurements P wave .9 mV R wave 13.0 mV Impedance 554 ohms Impedance 880 ohms Threshold V 0.5ms, mA Threshold 1.5V 0.5ms, 1.8mA No leads exhibited diaphragmatic or phrenic nerve stimulation at 10 V. PROCEDURE: The patient was brought to the [facility]. The left subclavian area is [...] obtain a ches t x-ray. Segundo VENTURA [id number] 08/31/07 DIS IN Z603-01 [id number] OPERATIVE REPORT Gabriel kee MD E-SIGN: [facility] THIS REPORT IS CONFIDENTIAL AND NOT TO BE RELEASED WITHOUT PROPER AUTHORIZATION. [facility] Gabriel Davila MD P DAC/vfb #[id number] cc: Gabriel Davila MD Segundo VENTURA [id number] 08/31/07 DIS IN Z603-01 [id number] OPERATIVE REPORT Gabriel kee MD E-SIGN: [facility] THIS REPORT IS CONFIDENTIAL [...] [place] | | | | | | [address] | | | | | | | [...]
--- OUTSIDE RECORDS SUMMARY | ~2019-12-17 | XMS | Encounter Summary ---
Demographics + + + | Address | [address] | | | [place] [address] | + + + | Home Phone | | + + + | Preferred Language | Unknown | + + + | Marital Status | | + + + | Yazidi Affiliation | 1013 | + + + | Race | Unknown | + + + | Ethnic Group | Unknown | + + + Author + + + | Author | [facility] | | | and [place] | + + + | Organization | [facility] | | | [...] | | | | [place] [address] | | + + + + + | Juana Gasca | ECON | [address] | | | | | [place] | | | | | [address] | | + + + + + | Chad Gasca | ECON | Unknown | | + + + + + Care Team Providers + +------+ + | Care General Distillery Worker Name | Role | Phone | [...] apnea on BiPAP | | | | [place], | | | | | | [place] [address] | | | | | | [phone] | | | +--------+ + + + [...] | | | | | [place] | | | | | | [address] | | | | | | | [...]
--- OUTSIDE RECORDS SUMMARY | ~2019-12-17 | XMS | Encounter Summary ---
Demographics + + + | Address | [address] | | | [place] [address] | + + + | Home Phone [...] | | | | [place] [address] | | + + + + + | Juana Gasca | ECON | [address] | | | | | [place] | | | | | [address] | | + + + + + | Chad Gasca | ECON | Unknown | | + + + + + Care Team Providers + +------+ + | Care Dispatcher Chief Oil Name | Role | Phone | + [...] [address] | | | | | [place] | | [address] | | | | | IMPLTBL DFB | | [place], [place] | | | | | PLSE GEN | | [id number] Phone: | | | | | W/REPL PLSE | | [phone] | | | | | GEN 1 LEAD | | Fax: | | | | | [place] | | [phone] | | | | | INSJ/RPLCMT | | | | | | | PERM DFB | | | | | | | W/TRNSVNS | | | | | | | LDS 1/DUAL | | | | | | | CHMBR [place] | | | | | | | [...] + + | 11/12/ | Surgery | [facility] | Spenser Schultz, | CV EP PM GEN CHANGE | | 2019 | | [facility] | [address] | | | | | [address] [facility] | [place], | | | | | [place], [place] | [place] [address] | | | | | [address] | [phone] | | | | | [phone] | | | +--------+---------+ + + + [...] incision for one week when you shower [phone] Angella Joy cell to send picture of incision in one week GENERATOR CHANGE Discharge Instructions FOLLOW-UP APPOINTMENTS First, be sure to come for all of your post-operative check-ups. The first visit is usually to check that your incision is healing properly. You will be seen by the Nurse or Nurse Pra ctitioner in approximately 7-10 days after pacemaker implantation. Your appointments will be at the [facility] in [facility] the [facility]. The address is [address] [place] [address]. The office is located on the 3rd floor. This appointment should already be scheduled for you, but if not, please call [phone] to schedule your appointment. INCISION SITE CARE [...] might be different fr om the original. [facility] SERVICE: ELECTROPHYSIOLOGY INTERVAL H & P UPDATE [...] tablet Take 1,000 mcg by mouth daily. Shedstydorl-Yrgqnsoci-Qoa C-Mn (GLUCOSAMINE 1500 COMPLEX PO) Take 3,000 [...] Hx Pacemaker/ICD: 08/30/2007, Guidant Insignia 1291, SN: [id number]. Last interrogation 10/30/2019 MARY, 96% ASSESSMENT: Patient [...] Spenser Schultz MD - 11/13/2019 1:46 PM [facility] OPERATIVE REPORT SPENSER SCHULTZ MD Patient: DENISE GASCA Admitting: SPENSER SCHULTZ MR #: [id number] LOC: PT TYPE: Adm Date: 11/13/2019 : 1935 DATE OF PROCEDURE: 11/13/2019 PROCEDURE: A dual-chamber pacemaker generator change out to a single chamber permanent pac emaker. HISTORY: This 84-year-old gentleman was referred for a pacemaker generator change out [facility] e his current device is at elective [...] a St. Herb model 1882TC, se rial #[id number]. The ventricular lead is a Guidant, model 4088, serial #[id number]. The current pacemaker is a Guidant, model 1291, serial #[id number]. PROCEDURE NOTE: The patient was brought to [...] The lead was attached to a new Gillett [employer] Accolade MRI compatible pacemaker (model L310, serial #[id number]). 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 Current pacemaker is at end-of-life Post-operative Diagnosis: Same Procedure(s): Permanent pacemaker generator change out. The dual-chamber pacemaker was melida ngraded to a single-chamber device. The atrial lead was capped off. Gillett scientific mackenzie forrester Surgeon: Spenser Schultz MD Tack Welder(s): Sam Anesthesia: Monitor Anesthesia care Estimated Blood [...] FIELDS | | | | | | [place] | | | | | | [address] | | | | | | | [...] | | | | performed at [facility] | | | | | | [address];[place], [place] | | | | | | [address] | | | | + + + + + + + + | Specimen | + + | Blood | + + + + + + + | Performing | Address | City/State/Zipcode | Phone Number | | Organization | | | | + + + + + | [facility] | [address] | [place] [address] | [phone] | + + + + + Basic [...] 48 (L)Comment: GFR <60: | >60 | [facility] | | | GFR | CHRONIC KIDNEY [...] | | | | | | MDRD IDTN traceable | | | | | | equation.Testing | | | | | | performed at [facility];[address] | | | | | | [facility];[place], [place] | | | | | | [address] | | | | + + + + + + + + | Specimen | + + | Blood | + + + + + + + | Performing | Address | City/State/Zipcode | Phone Number | | Organization | | | | + + + + + | [facility] | [address] | [place] [address] | [phone] | + + + + + documented [...]
--- OUTSIDE RECORDS SUMMARY | ~2019-12-17 | XMS | Encounter Summary ---
Demographics + + + | Address | [address] | | | [place] [address] | + + + | Home Phone [...] | | | | [place] [address] | | + + + + + | Juana Gasca | ECON | [address] | | | | | [place] | | | | | [address] | | + + + + + | Chad Gasca | ECON | Unknown | | + + + + + Care Team Providers + +------+ + | Care Internet Sales Director Name | Role | Phone | [...] | | | | | [place] [address] | | | | | | [phone] | | | +--------+ + + + [...] as she received an ER report from [facility]. He states that he is feeling [...] [place] | | | | | | [address] | | | | | | | [...]
--- OUTSIDE RECORDS SUMMARY | ~2019-12-17 | XMS | Encounter Summary ---
Demographics + + + | Address | [address] | | | [place] [address] | + + + | Home Phone [...] | | | | [place] [address] | | + + + + + | Juana Gasca | ECON | [address] | | | | | [place] | | | | | [address] | | + + + + + | Chad Gasca | ECON | Unknown | | + + + + + Care Team Providers + +------+ + | Care Appeals And Generalist Clerk Name | Role | Phone | [...] + + | 03/28/ | Office | [facility] | [place], | COPD (chronic | | 2013 | Visit | PULMONARY [address] | Florence You MD | obstructive | | | | [place], | | pulmonary disease) | | | | [place] [address] | | (Primary Dx); | | | | [phone] | | Obstructive sleep | | | | | | apnea on BiPAP; | | | | | | 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 Axsuflubrzm-Balkldiga-Ovh C-Mn (GLUCOSAMINE 1500 COMPLEX PO) Take 1,500 [...] nodes: Cervical and supraclavicular nodes normal Data: [facility] Data: Dates: 02/25-03/26/14 Home Health Company: [...] made to ensure accuracy; however, inadvertent computerized missile mechanic errors may be pre sent. Electronically signed [...] | | | | | [place] | | | | | | [address] | | | | | | | [...]
--- OUTSIDE RECORDS SUMMARY | ~2019-12-17 | XMS | Encounter Summary ---
Demographics + + + | Address | [address] | | | [place] [address] | + + + | Home Phone [...] | | | | [place] [address] | | + + + + + | Juana Gasca | ECON | [address] | | | | | [place] | | | | | [address] | | + + + + + | Chad Gasca | ECON | Unknown | | + + + + + Care Team Providers + +------+ + | Care Bill Distributor Name | Role | Phone | + [...] | | | | | [place] [address] | | | | | | [phone] | | | +--------+ + + + [...] as she received an ER report from [facility]. He states that he is feeling [...] [place] | | | | | | [address] | | | | | | | [...]
--- OUTSIDE RECORDS SUMMARY | ~2019-12-17 | XMS | Encounter Summary ---
Demographics + + + | Address | [address] | | | [place] [address] | + + + | Home Phone [...] | | | | [place] [address] | | + + + + + | Juana Gasca | ECON | [address] | | | | | [place] | | | | | [address] | | + + + + + | Chad Gasca | ECON | Unknown | | + + + + + Care Team Providers + +------+ + | Care Detective Lieutenant Name | Role | Phone | + +------+ + PCP | Unavailable | + +------+ + Encounter Details +--------+ + + + + | Date | Type | Department | Care Team | Description | +--------+ + + + + | 05/04/ | Hospital | [facility] | Jeremías Baum MD | | | 2006 | Encounter | MED CTR MP INTRA OP | [address] [facility] | | | | | [address] | [place] | | | | | [place] | [address] | | | | | [address] | [phone] | | | | | [phone] | | | +--------+ + + + [...] [place] | | | | | | [address] | | | | | | | [...]
--- OUTSIDE RECORDS SUMMARY | ~2019-12-17 | XMS | Encounter Summary ---
Demographics + + + | Address | [address] | | | [place] [address] | + + + | Home Phone [...] | | | | [place] [address] | | + + + + + | Juana Gasca | ECON | [address] | | | | | [place] | | | | | [address] | | + + + + + | Chad Gasca | ECON | Unknown | | + + + + + Care Team Providers + +------+ + | Care Partner Integration Planner Name | Role | Phone | [...] + + | 09/21/ | Office | [facility] | [place], | COPD (Primary Dx); | | 2012 | Visit | PULMONARY [address] | Florence You MD | Obstructive sleep | | | | [place], | | apnea on BiPAP | | | | [place] [address] | | | | | | [phone] | | | +--------+---------+ + + + [...] and Monday. Take 10mg all other days Utniurzmrpq-Lypjcekub-Efc C-Mn (GLUCOSAMINE 1500 COMPLEX PO) Take 1,500 [...] breath sounds are diminished bilaterally, no wheezes, truck crane operator ckles or rhonchi Chest Wall: [...] made to ensure accuracy; however, inadvertent computerized oyster culler errors may be pre sent. documented in [...] | | | | | [place] | | | | | | [address] | | | | | | | [...]
--- OUTSIDE RECORDS SUMMARY | ~2019-12-17 | XMS | Encounter Summary ---
Demographics + + + | Address | [address] | | | [place] [address] | + + + | Home Phone | | + + + | Preferred Language | Unknown | + + + | Marital Status | | + + + | Zoroastrian Affiliation | 1013 | + + + | Race | Unknown | + + + | Ethnic Group | Unknown | + + + Author + + + | Author | [facility] | | | and [place] | + + + | Organization | [facility] | | | [...] | | | | [place] [address] | | + + + + + | Juana Gasca | ECON | [address] | | | | | [place] | | | | | [address] | | + + + + + | Chad Gasca | ECON | Unknown | | + + + + + Care Team Providers + +------+ + | Care Medical Associate Name | Role | Phone | + +------+ + | Timo Lorenzana | PCP | | | MD | | | + +------+ + Encounter Details +--------+ + + + + | Date | Type | Department | Care Team | Description | +--------+ + + + + | 04/03/ | Orders Only | [facility] | Conversion | | | 2013 | | CARDIOLOGY [place] | Transaction, | | | | | [address] | Provider Unknown | | | | | [place], [place] | | | | | | [address] | | | | | | [phone] | | | +--------+ + + + [...] [place] | | | | | | [address] | | | | | | | [...]
--- OUTSIDE RECORDS SUMMARY | ~2019-12-17 | XMS | Encounter Summary ---
Demographics + + + | Address | [address] | | | [place] [address] | + + + | Home Phone [...] | | | | [place] [address] | | + + + + + | Juana Gasca | ECON | [address] | | | | | [place] | | | | | [address] | | + + + + + | Chad Gasca | ECON | Unknown | | + + + + + Care Team Providers + +------+ + | Care Time Buyer Name | Role | Phone | [...] | | | | | [place] [address] | | | | | | [phone] | | | +--------+ + + + [...] | | | | | [place] | | | | | | [address] | | | | | | | [...]
--- OUTSIDE RECORDS SUMMARY | ~2019-12-17 | XMS | Encounter Summary ---
Demographics + + + | Address | [address] | | | [place] [address] | + + + | Home Phone [...] | | | | [place] [address] | | + + + + + | Juana Gasca | ECON | [address] | | | | | [place] | | | | | [address] | | + + + + + | Chad Gasca | ECON | Unknown | | + + + + + Care Team Providers + +------+ + | Care Water Resource Engineer Name | Role | Phone | [...] | | | | | [place] [address] | | | | | | [phone] | | | +--------+ + + + [...] | | | | | [place] | | | | | | [address] | | | | | | | [...]
--- OUTSIDE RECORDS SUMMARY | ~2019-12-17 | XMS | Encounter Summary ---
Demographics + + + | Address | [address] | | | [place] [address] | + + + | Home Phone [...] | | | | [place] [address] | | + + + + + | Juana Gasca | ECON | [address] | | | | | [place] | | | | | [address] | | + + + + + | Chad Gasca | ECON | Unknown | | + + + + + Care Team Providers + +------+ + | Care Sewing Line Baler Name | Role | Phone | + +------+ + PCP | Unavailable | + +------+ + Encounter Details +--------+ + + + + | Date | Type | Department | Care Team | Description | +--------+ + + + + | 07/21/ | Hospital | [facility] | Jin Epps MD | | | 2005 - | Encounter | [facility] | [address] | | | | | INTENSIVE CARE UNIT | [place] [address] | | | 07/22/ | | [facility] | [phone] | | | 2005 | | [place], [place] | | | | | | [address] | | | | | | [phone] | | | +--------+ + + + [...] [place] | | | | | | [address] | | | | | | | [...]
--- OUTSIDE RECORDS SUMMARY | ~2019-12-17 | XMS | Encounter Summary ---
Demographics + + + | Address | [address] | | | [place] [address] | + + + | Home Phone [...] + | Author | [facility] | | | and [place] | + + + | Organization | [facility] | | | [...] | | | | [place] [address] | | + + + + + | Juana Gasca | ECON | [address] | | | | | [place] | | | | | [address] | | + + + + + | Chad Gasca | ECON | Unknown | | + + + + + Care Team Providers + +------+ + | Care Engraver Lettering Name | Role | Phone | + +------+ + | Timo Lorenzana | PCP | | | MD | | | + +------+ + Encounter Details +--------+ + + + + | Date | Type | Department | Care Team | Description | +--------+ + + + + | 02/06/ | Hospital | [facility] | Conversion | Diagnosis unknown | | 2015 | Encounter | CONVERSION [address] | Transaction, | | | | | [address] | Provider Unknown | | | | | [place], [place] | | | | | | [address] | (Fax) | | | | | [phone] | | | +--------+ + + + [...] | | | | | [place], [place] | | | | | | [address] | | | | | | | [...]
--- OUTSIDE RECORDS SUMMARY | ~2019-12-17 | XMS | Encounter Summary ---
Demographics + + + | Address | [address] | | | [place] [address] | + + + | Home Phone [...] | | | | [place] [address] | | + + + + + | Juana Gasca | ECON | [address] | | | | | [place] | | | | | [address] | | + + + + + | Chad Gasca | ECON | Unknown | | + + + + + Care Team Providers + +------+ + | Care Examination Proctor Name | Role | Phone | + [...] | | | | | [place] [address] | | | | | | [phone] | | | +--------+ + + + [...] | | | | | [place] | | | | | | [address] | | | | | | | [...]
--- OUTSIDE RECORDS SUMMARY | ~2019-12-17 | XMS | Encounter Summary ---
Demographics + + + | Address | [address] | | | [place] [address] | + + + | Home Phone [...] | | | | [place] [address] | | + + + + + | Juana Gasca | ECON | [address] | | | | | [place] | | | | | [address] | | + + + + + | Chad Gasca | ECON | Unknown | | + + + + + Care Team Providers + +------+ + | Care Pressure Sealer And Tester Name | Role | Phone | [...] + + | 12/02/ | Telephone | [facility] | Elif Hylton, | Medication Question | 2019 | | CARDIOLOGY [address] | [address] | (Enoxaparin) | | | | [address] | [place] | | | | | [place] | [address] | | | | | [address] | | | | | | [phone] | | | +--------+ + + + [...] Miscellaneous Notes Telephone Encounter - Pramod Carranza Certified Professional Ergonomist - 12/03/2019 3:32 PM PDTStart Lo venox 5 days prior to surgery, at that time stop warfarin. Restart Lovenox post surgery, and stay on until INR is 2.5. Informed Anh, she states understanding with no further questions. elephone Encounter - Pramod Carranza Certified Professional Ergonomist - 12/03/2019 3:32 PM PDT----- Message from [...] PDT To: MD Beata Brandtantonella Serge Morrisonn [id number] ----- Message ----- From: Elif Hylton MD [...] | | | | [place] | | | | | | [address] | | | | | | | [...]
--- OUTSIDE RECORDS SUMMARY | ~2019-12-17 | XMS | Encounter Summary ---
Demographics + + + | Address | [address] | | | [place] [address] | + + + | Home Phone [...] | | | | [place] [address] | | + + + + + | Juana Gasca | ECON | [address] | | | | | [place] | | | | | [address] | | + + + + + | Chad Gasca | ECON | Unknown | | + + + + + Care Team Providers + +------+ + | Care Felt Carbonizer Name | Role | Phone | + +------+ + | Timo Lorenzana | PCP | | | MD | | | + +------+ + Encounter Details +--------+ + + + + | Date | Type | Department | Care Team | Description | +--------+ + + + + | 06/25/ | Orders Only | [facility] | [place], | MARY (obstructive | | 2014 | | MED CTR PULMONARY | Florence You MD | sleep apnea) | | | | FUNCTION [address] | | | | | | [place], | | | | | | [place] [address] | | | | | | [phone] | | | +--------+ + + + [...] [place] | | | | | | [address] | | | | | | | [...]
--- OUTSIDE RECORDS SUMMARY | ~2019-12-17 | XMS | Encounter Summary ---
Demographics + + + | Address | [address] | | | [place] [address] | + + + | Home Phone [...] | | | | [place] [address] | | + + + + + | Juana Gasca | ECON | [address] | | | | | [place] | | | | | [address] | | + + + + + | Chad Gasca | ECON | Unknown | | + + + + + Care Team Providers + +------+ + | Care Supervisor Insecticide Name | Role | Phone | + [...] + + | 03/18/ | Refill | [facility] | Yuri Raymond | Medication Refill | | 2019 | | PULMONOLOGY [address] | Rush Raymond MD [address] | | | | | [address] | [address] | | | | | [place] | [place] [address] | | | | | [address] | [phone] | | | | | [phone] | | | +--------+--------+ + + + [...] | | | | | | [place] [facility] [place] | | | | | | [address] | | | | | | | [...]
--- OUTSIDE RECORDS SUMMARY | ~2019-12-17 | XMS | Encounter Summary ---
Demographics + + + | Address | [address] | | | [place] [address] | + + + | Home Phone | | + + + | Preferred Language | Unknown | + + + | Marital Status | | + + + | Yazdanism Affiliation | 1013 | + + + | Race | Unknown | + + + | Ethnic Group | Unknown | + + + Author + + + | Author | [facility] | | | and [place] | + + + | Organization | [facility] | | | [...] | | | | [place] [address] | | + + + + + | Juana Gasca | ECON | [address] | | | | | [place] | | | | | [address] | | + + + + + | Chad Gasca | ECON | Unknown | | + + + + + Care Team Providers + +------+ + | Care Rug Cleaner Helper Name | Role | Phone | [...] + | 12/28/ | Office | [facility] | [place], | COPD (chronic | | 2012 | Visit | PULMONARY [address] | Florence You MD | obstructive | | | | [place], | | pulmonary disease) | | | | [place] [address] | | ([facility]) (Primary Dx); | | | | [phone] | | Obstructive sleep | | | [...] an overnight oxy gen test through [facility]. 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 Do the test on your BiPAP. Call the [employer] before you pick it up to make sure they ibarra ve a box available. Bring a download to your next appointment. documented in this encounter Progress Notes Florence La MD - 12/28/2012 2:37 PM PDTFormatting of this note might be differe nt from the original. Pulmonary Follow Up Note MD Jody Sanford [facility] [address] [place], [address] HPI Serge Gasca is a 77 y.o. male patient of Timo Lorenzana here today for follo w up of COPD. Since in last time, he had a brief hospitalization in October at [facility] for a COPD exace rbation. We called [...] Take 40 mg by mouth every morning. Mptpngrftew-Lmczxvvmb-Afj C-Mn (GLUCOSAMINE 1500 COMPLEX PO) Take 1,500 [...] made to ensure accuracy; however, inadvertent computerized copy worker errors may be pre sent. documented [...] [place] | | | | | | [address] | | | | | | | [...]
--- OUTSIDE RECORDS SUMMARY | ~2019-12-17 | XMS | Encounter Summary ---
Demographics + + + | Address | [address] | | | [place] [address] | + + + | Home Phone [...] | | | | [place] [address] | | + + + + + | Juana Gasca | ECON | [address] | | | | | [place] | | | | | [address] | | + + + + + | hCad Gasca | ECON | Unknown | | + + + + + Care Team Providers + +------+ + | Care Promotions Assistant Sales Marketing Name | Role | Phone | + [...] + + | 10/29/ | Office | [facility] | Mulu Weinstein, | Atrial fibrillation, | | 2020 | Visit | CARDIOLOGY [place] | [address] | chronic (HCC) | | | | [address] | [place] | (Primary Dx); | | | | [address] | [address] | Essential | | | | [place] | | hypertension, | | | | [address] | | benign; | | | | [phone] | | Atherosclerosis of | | | | | | [place] coronary | | | | | | artery of [place] | | | | | | heart [...] tablet Take 1,000 mcg by mouth daily. Cmcsomxarto-Msfcohovr-Nmr C-Mn (GLUCOSAMINE 1500 COMPLEX PO) Take 3,000 [...] Hx Pacemaker/ICD: 08/30/2007, Guidant Insignia 1291, SN: [id number]. Last interrogation 10/30/2019 MARY, 96% ASSESSMENT: Patient [...] [place] | | | | | | [address] | | | | | | | [...] of | | | | | | [place] coronary | | | | | | artery of [place] | | | | | | heart [...] MD | | | | | | ([id number]) on 10/31/2019 | | | | | [...] benign | + + | Atherosclerosis of [place] coronary artery of [place] heart without angina pectoris | + + | S/P AVR (aortic valve replacement) Heart valve replaced by other means | + + | S/P MVR (mitral valve replacement) Heart valve replaced by other means | + + documented in this encounter
--- OUTSIDE RECORDS SUMMARY | ~2019-12-17 | XMS | Encounter Summary ---
Demographics + + + | Address | [address] | | | [place] [address] | + + + | Home Phone [...] | | | | [place] [address] | | + + + + + | Juana Gasca | ECON | [address] | | | | | [place] | | | | | [address] | | + + + + + | Chad Gasca | ECON | Unknown | | + + + + + Care Team Providers + +------+ + | Care Quill Collector Name | Role | Phone | + [...] | | | | | [place] [address] | | | | | | [phone] | | | +--------+ + + + [...] daily, Disp: 3 each, Rfl: 4; Glucosam imf-Dpafgfdbn-Pba C-Mn (GLUCOSAMINE 1500 COMPLEX PO), Take 1,500 [...] nightly., Disp: , Rfl: Respiratory Therapy Supplies [facility], Discontinue nebulizer. Fax to [facility]., [...] [place] | | | | | | [address] | | | | | | | [...]
--- OUTSIDE RECORDS SUMMARY | ~2019-12-17 | XMS | Encounter Summary ---
Demographics + + + | Address | [address] | | | [place] [address] | + + + | Home Phone [...] | | | | [place] [address] | | + + + + + | Juana Gasca | ECON | [address] | | | | | [place] | | | | | [address] | | + + + + + | Chad Gasca | ECON | Unknown | | + + + + + Care Team Providers + +------+ + | Care Director Hr Communications Name | Role | Phone | [...] + + | 04/03/ | Office | [facility] | Elif Weinstein, | Atrial fibrillation, | | 2019 | Visit | CARDIOLOGY [facility] | [address] | chronic (HCC) | | | | [address] | [place], [place] | (Primary Dx); | | | | [place] [address] | [address] | Hypertension; | | | | [place] | | Obstructive sleep | | | | [address] | | apnea on BiPAP; S/P | | | | [phone] | | AVR (aortic valve | | [...] into the lungs 2 (two) times daily. Zmkzbnhtqvd-Plrwewpbs-Xxw C-Mn (GLUCOSAMINE 1500 COMPLEX PO) Take 3,000 [...] capsule INHALE THE CONTENTS OF 1 CAP AGRRETT VIA HANDIHALER DAILY 90 capsule 3 torsemide (DEMADEX) 20 mg tablet TAKE 2 TABLETS BY MOUTH 2 TIMES DAILY NEEDED. (Pat ient taking differently: 40 mg in AM, PM PRN) 360 tablet 1 [DISCONTINUED] warfarin (COUMADIN) 10 mg tablet Take 10 mg by mouth daily. Sliding [facility] e, [place] regulates warfarin (COUMADIN) 7.5 mg tablet Take [...] Hx Pacemaker/ICD: 08/30/2007, Guidshelby Millerignshan 1291, SN: [id number]. Last interrogation 11/19/2018 1 year, RV pacing [...] | | | | | [place] | | | | | | [address] | | | | | | | [...]
--- OUTSIDE RECORDS SUMMARY | ~2019-12-17 | XMS | Encounter Summary ---
Demographics + + + | Address | [address] | | | [place] [address] | + + + | Home Phone [...] | | | | [place] [address] | | + + + + + | Juana Gasca | ECON | [address] | | | | | [place] | | | | | [address] | | + + + + + | Chad Gasca | ECON | Unknown | | + + + + + Care Team Providers + +------+ + | Care Foundry Worker General Name | Role | Phone | + [...] MD | cough) | | | | [place], | | | | | | [place] [address] | | | | | | [phone] | | | +--------+ + + + [...] | | | | | [place], [place] | | | | | | [address] | | | | | | | [...]
--- OUTSIDE RECORDS SUMMARY | ~2019-12-17 | XMS | Encounter Summary ---
Demographics + + + | Address | [address] | | | [place] [address] | + + + | Home Phone | | + + + | Preferred Language | Unknown | + + + | Marital Status | | + + + | Hinduism Affiliation | 1013 | + + + | Race | Unknown | + + + | Ethnic Group | Unknown | + + + Author + + + | Author | [facility] | | | and [place] | + + + | Organization | [facility] | | [...] | | | | [place] [address] | | + + + + + | Juana Gasca | ECON | [address] | | | | | [place] | | | | | [address] | | + + + + + | Chad Gasca | ECON | Unknown | | + + + + + Care Team Providers + +------+ + | Care Drugless Doctor Name | Role | Phone | [...] + + | 10/20/ | Refill | [facility] | Elif Hylton, | Medication Refill | | 2019 | | CARDIOLOGY [place] | [address] | (Torsemide, | | | | [address] | [place] | Carvedilol, | | | | [address] | [address] | Potassium) | | | | [place] | | | | | | [address] | | | | | | [phone] | | | +--------+--------+ + + + [...] [place] | | | | | | [address] | | | | | | | [...]
--- OUTSIDE RECORDS SUMMARY | ~2019-12-17 | XMS | Encounter Summary ---
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 [facility] mehreen Riddle t 03/30/2015 [...] t o do a chest x-ray in [place], but he felt like he was doing okay. He is currently on a regimen of Advair twice daily and Spiriva once daily. He does feel li ke this medication regimen is working for them. Currently he is using his rescue inhaler, al buterol, 1 times a week. He is using his nebulizer, albuterol, 2 times a day. He returns to [facility] for routine follow up. Currently he [...] inhaled tw ice daily 3 each 4 Iwlpsjbyuui-Snwgrpmtt-Cpp C-Mn (GLUCOSAMINE 1500 COMPLEX PO) Take 1,500 [...] Health Company: [facility] Machine type: [employer] BiPAP auto IPAP Pressure: 16 cm H2O [...] Advair. Plan 1.Check chest CT scan at [facility]. 2.Decrease Advair to 100 mcg dose, 1 [...] made to ensure accuracy; however, inadvertent computerized abalone fisherman errors may be pre sent. documented in [...] | | | | | [place], [place] | | | | | | [address] | | | | | | | [...]
--- OUTSIDE RECORDS SUMMARY | ~2019-12-17 | XMS | Encounter Summary ---
Demographics + + + | Address | [address] | | | [place] [address] | + + + | Home Phone [...] | | | | [place] [address] | | + + + + + | Juana Gasca | ECON | [address] | | | | | [place] | | | | | [address] | | + + + + + | Chad Gsaca | ECON | Unknown | | + + + + + Care Team Providers + +------+ + | Care Packing And Wrapping Supervisor Name | Role | Phone | [...] + + | 03/29/ | Office | [facility] | [place], | COPD (chronic | | 2012 | Visit | PULMONARY [address] | Florence You MD | obstructive | | | | [place], | | pulmonary disease) | | | | [place] [address] | | ([facility]) (Primary Dx); | | | | [phone] | | Obstructive sleep | | | [...] [facility]ody [facility] [address] [place], [address] HPI Serge Gasca is a 78 y.o. [...] Urethral procedure, a "roto router." He/she (caps) :09634} does feel like this medication regimen is working for them. They return today for ro utine follow up. Currently they are using their rescue inhaler, albuterol, 1 times a day, an d usually this is at night. Currently they are able to walk several blocks at their own pace on level ground. He is not exercising regularly. He notes his medical staff services coordinator has been going to the health club, [...] Take 40 mg by mouth every morning. Wirschvavvk-Xzrzuecrd-Hct C-Mn (GLUCOSAMINE 1500 COMPLEX PO) Active Take [...] made to ensure accuracy; however, inadvertent computerized application performance engineer errors may be pre sent. documented [...] | | | | | [place] [facility] | | | | | | [address] | | | | | | | [...]
--- OUTSIDE RECORDS SUMMARY | ~2019-12-17 | XMS | Encounter Summary ---
Demographics + + + | Address | [address] | | | [place] [address] | + + + | Home Phone [...] | | | | [place] [address] | | + + + + + | Juana Gasca | ECON | [address] | | | | | [place] | | | | | [address] | | + + + + + | Chad Gasca | ECON | Unknown | | + + + + + Care Team Providers + +------+ + | Care Atmospheric Drier Tender Name | Role | Phone | + +------+ + | Timo Lorenazna | PCP | | | MD | | | + +------+ + Reason for Visit +--------+ + | Reason | Comments | +--------+ + | COPD | | +--------+ + Encounter Details +--------+---------+ + + + | Date | Type | Department | Care Team | Description | +--------+---------+ + + + | 03/29/ | Office | [facility] | [place], | COPD (chronic | | 2012 | Visit | PULMONARY [address] | Florence You MD | obstructive | | | | [place], | | pulmonary disease) | | | | [place] [address] | | ([facility]) (Primary Dx); | | | | [phone] | | Obstructive sleep | | | [...] [facility] [address] [place], [address] HPI Serge Gasca is a 78 y.o. [...] Urethral procedure, a "roto router." He/she (caps) :67239} does feel like this medication regimen is working for them. They return today for ro utine follow up. Currently they are using their rescue inhaler, albuterol, 1 times a day, an d usually this is at night. Currently they are able to walk several blocks at their own pace on level ground. He is not exercising regularly. He notes his staging technician has been going to the health club, [...] Take 40 mg by mouth every morning. Upybhhajjvm-Nzkumlwmn-Pzd C-Mn (GLUCOSAMINE 1500 COMPLEX PO) Active Take [...] made to ensure accuracy; however, inadvertent computerized paint pourer errors may be pre sent. documented in [...] | | | | | [place] [facility] | | | | | | [address] | | | | | | | [...]
--- OUTSIDE RECORDS SUMMARY | ~2019-12-17 | XMS | Encounter Summary ---
Demographics + + + | Address | [address] | | | [place] [address] | + + + | Home Phone [...] | | | | [place] [address] | | + + + + + | Juana Ventura | ECON | [address] | | | | | [place] | | | | | [address] | | + + + + + | Chad Ventura | ECON | Unknown | | + + + + + Care Team Providers + +------+ + | Care Assistant Professor Of Education Name | Role | Phone | + +------+ + PCP | Unavailable | + +------+ + Encounter Details +--------+ + + + + | Date | Type | Department | Care Team | Description | +--------+ + + + + | 10/08/ | Hospital | [facility] | Gabriel Davila, | | | 2007 - | Encounter | HEART MED CTR | MD [address] | | | | | CARDIAC TRANSPLANT | [address] [address] | | | 10/10/ | | [address] | [place] [address] | | | 2007 | | [place] | [phone] | | | | | [address] | | | | | | [phone] | | | +--------+ + + + [...] follow him closely. Gabriel Davila MD A [facility]/dls #[id number] cc: DO Gabriel East MD Segundo VENTURA [id number] 10/11/07 DIS IN [id number] DISCHARGE SUMMARY Gabriel kee MD [facility] THIS REPORT IS CONFIDENTIAL AND NOT TO BE RELEASED WITHOUT PROPER AUTHORIZATION.Electronica lly signed by Gabriel Davila MD at 04/12/2013 3:39 AM PSTdocumented in this encounter Miscellaneous Notes Op Note - Gbariel Davila MD - 04/10/2013 3:47 PM PSTPATIENT [...] at no time could clear DENISE VENTURA [id number] ADM IN [id number] [id number] OPERATIVE REPORT Gabriel kee MD E-SIGN: [facility] THIS REPORT IS CONFIDENTIAL AND NOT TO BE RELEASED WITHOUT PROPER AUTHORIZATION. [facility] criteria be made for atrial flutter. Gabriel Davila MD A [facility]/bgb #[id number] cc: Gabriel kee MD VENTURASegundo D [id number] ADM IN [id number] OPERATIVE REPORT Gabriel kee MD E-SIGN: [facility] THIS REPORT IS CONFIDENTIAL AND NOT [...] complicatio ns. Gabriel Davila MD A [facility]/dls #[id number] cc: Gabriel kee MD VENTURASegundo DWAYNE Guillen [id number] 10/11/07 DIS IN [id number] OPERATIVE REPORT Gabriel kee MD E-SIGN: [facility] THIS REPORT IS CONFIDENTIAL AND NOT TO [...] | | [place] [facility] | | | | | | [id number] | | | | | | | [...]
--- OUTSIDE RECORDS SUMMARY | ~2019-12-17 | XMS | Encounter Summary ---
Demographics + + + | Address | [address] | | | [place] [address] | + + + | Home Phone [...] | | | | [place] [address] | | + + + + + | Juana Gasca | ECON | [address] | | | | | [place] | | | | | [address] | | + + + + + | Chad Gasca | ECON | Unknown | | + + + + + Care Team Providers + +------+ + | Care Packer And Carry Out Name | Role | Phone | + [...] MD | | | | | [place], | | | | | | [place] [address] | | | | | | [phone] | | | +--------+ + + + [...] [place] | | | | | | [address] | | | | | | | [...]
--- OUTSIDE RECORDS SUMMARY | ~2019-12-17 | XMS | Encounter Summary ---
Demographics + + + | Address | [address] | | | [place] [address] | + + + | Home Phone [...] | | | | [place] [address] | | + + + + + | Juana Gasca | ECON | [address] | | | | | [place] | | | | | [address] | | + + + + + | Chad Gasca | ECON | Unknown | | + + + + + Care Team Providers + +------+ + | Care Drum Attendant Name | Role | Phone | + +------+ + PCP | Unavailable | + +------+ + Encounter Details +--------+ + + + + | Date | Type | Department | Care Team | Description | +--------+ + + + + | 09/30/ | Hospital | [facility] | Jin Epps MD | CORONARY ATHEROSCLER | | 2005 - | Encounter | [facility] | [address] | UNSPEC VESSEL | | | | CARE FLOOR [address] | [place] [address] | | | 10/01/ | | [address] | [phone] | | | 2004 | | [place], [place] | | | | | | [address] | Ramo Fortune | | | | | [phone] | MD Jesus [address] | | | | | | [address] | | | | | | [place] [address] | | | | | | [phone] | | | | | | | [...] | | | | | | [facility] | | | | | | [address] | | | | | | | [...] Coronary atherosclerosis of unspecified type of vessel, [place] or graft | + + documented in this encounter"
--- OUTSIDE RECORDS SUMMARY | ~2019-12-17 | XMS | Encounter Summary ---
Demographics + + + | Address | [address] | | | [place] [address] | + + + | Home Phone [...] | | | | [place] [address] | | + + + + + | Juana Ventura | ECON | [address] | | | | | [place] | | | | | [address] | | + + + + + | Chad Ventura | ECON | Unknown | | + + + + + Care Team Providers + +------+ + | Care Assistant Department Manager Name | Role | Phone | + +------+ + PCP | Unavailable | + +------+ + Encounter Details +--------+ + + + + | Date | Type | Department | Care Team | Description | +--------+ + + + + | 11/17/ | Hospital | [facility] | Gabriel Davila, | | | 2009 - | Encounter | HEART MED CTR | MD [address]iese [address] | | | | | CARDIAC TELEMETRY | [place] [address] | | | 11/19/ | | [address] [place] | [place] [address] | | | 2009 | | [place] | [phone] | | | | | [address] | | | | | | [phone] | | | +--------+ + + + [...] NAME: Denise Ventura Sex/Age: M/74 : 1935 [id number] ADMISSION DATE: 11/17/2009 DISCHARGE DATE: 11/19/2009 DISCHARGE [...] two weeks. Gabriel Davila MD A P [facility] #[id number] cc: Gabriel Davila MD AUDREYSegundo ADM:11/17/09 [id number] 11/19/09 DIS IN [id number] DISCHARGE SUMMARY Gabriel kee MD [facility] THIS REPORT IS CONFIDENTIAL AND NOT TO BE RELEASED WITHOUT PROPER AUTHORIZATION.Electronica lly signed by Gabriel Davila MD at 04/11/2013 2:07 AM PSTdocumented in this encounter Miscellaneous Notes Op Note - Gabriel Davila MD - 04/10/2013 6:14 AM PST PATIENT NAME: DENISE VENTURA Date of : 1935 Age/Sex: 74Y / M SURGEON: Gabriel Davila MD SURGERY DATE: 11/17/2009 [id number] / [id number] PROCEDURES: 1. His ablation. 2. Reprogramming of pacer. PROCEDURE: The patient presents to undergo His ablation. The risks and options were explai mark to him in great detail, on multiple occasions. He is known to have refractory atrial ta chycardias, refractory to medication and multiple ablations. He has a normally functioning DDD [employer] pacemaker in place. The right femoral [...] and followup. Gabriel Davila MD A P [facility]/all #[id number] cc: Gabriel Davila MD Segundo VENTURA ADM:11/17/09 [id number] [facility] IN [id number] OPERATIVE REPORT Gabriel kee MD E-SIGN: N [facility] THIS REPORT IS CONFIDENTIAL AND NOT [...] [place] | | | | | | [address] | | | | | | | [...]
--- OUTSIDE RECORDS SUMMARY | ~2019-12-17 | XMS | Encounter Summary ---
Demographics + + + | Address | [address] | | | [place] [address] | + + + | Home Phone [...] + | Author | [facility] | | | and [place] | + + + | Organization | [facility] | | | and [place] | + + + | Address | Unknown | + + + | Phone | Unavailable | + + + Support + + + + + | Name | Relationship | Address | Phone | + + + + + | Frances Gasca | ECON | NA | | | | | [place] [address] | | + + + + + | Juana Gasca | ECON | [address] | | | | | [place] | | | | | [address] | | + + + + + | hCad Gasca | ECON | Unknown | | + + + + + Care Team Providers + +------+ + | Care Medical Certification Specialist Name | Role | Phone | [...] + + | 06/25/ | Office | [facility] [place] | [place], | COPD (chronic | | 2014 | Visit | PULMONARY [address] | Florence You MD | obstructive | | | | [place], | | pulmonary disease) | | | | [place] [address] | | (Primary Dx); MARY | | | | [phone] | | (obstructive sleep | | | [...] test through [facility]. Call the [facility] before you pick it up to make sure they have a box available. You will pickle cutter a box at the [facility]. Do the t est on BiPAP only. [...] He notes when he we nt to [place], he did not take his oxygen with [...] inhaler 1 puff inhaled tw ice daily Hzynbdhsifk-Xkiksxdpw-Trs C-Mn (GLUCOSAMINE 1500 COMPLEX PO) Take 1,500 [...] made to ensure accuracy; however, inadvertent computerized hostess host errors may be pre sent. documented in [...] [place] | | | | | | [address] | | | | | | | [...]
--- OUTSIDE RECORDS SUMMARY | ~2019-12-17 | XMS | Encounter Summary ---
Demographics + + + | Address | [address] | | | [place] [address] | + + + | Home Phone [...] | | | | [place] [address] | | + + + + + | Juana Gasca | ECON | [address] | | | | | [place] | | | | | [address] | | + + + + + | Chad Gasca | ECON | Unknown | | + + + + + Care Team Providers + +------+ + | Care Recreation Engineer Name | Role | Phone | [...] + + | 12/29/ | Office | [facility] | [place], | COPD (chronic | | 2014 | Visit | PULMONARY [address] | Florence You MD | obstructive | | | | [place], | | pulmonary disease); | | | | [place] [address] | | Obstructive sleep | | | | [phone] | | apnea on BiPAP; | | | | | | 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 He notes he has not been dyspneic walking this. He can probably walk 1/4 to 1/2 mile without stopping. This has improved consi derably compared to 1/2 to 1 block before. He has been evaluated for nocturnal oxygen and does use it. He is currently on 1 L[facility] ht bled in to his [...] inhaled tw ice daily 3 each 4 Igzdqkhxpiv-Zvvauoubt-Mlj C-Mn (GLUCOSAMINE 1500 COMPLEX PO) Take 1,500 [...] made to ensure accuracy; however, inadvertent computerized human intelligence errors may be pre sent. documented in [...] | | | | | [place], [place] | | | | | | [address] | | | | | | | [...]
--- OUTSIDE RECORDS SUMMARY | ~2019-12-17 | XMS | Encounter Summary ---
Demographics + + + | Address | [address] | | | [place] [address] | + + + | Home Phone [...] | | | | [place] [address] | | + + + + + | Juana Gasca | ECON | [address] | | | | | [place] | | | | | [address] | | + + + + + | Chad Gasca | ECON | Unknown | | + + + + + Care Team Providers + +------+ + | Care Still Operator Helper Name | Role | Phone | + +------+ + PCP | Unavailable | + +------+ + Encounter Details +--------+ + + + + | Date | Type | Department | Care Team | Description | +--------+ + + + + | 05/04/ | Hospital | [facility] | Jeremías Baum MD | | | 2006 | Encounter | MED CTR MP INTRA OP | [address] [facility] | | | | | [address] | [place] | | | | | [place] | [address] | | | | | [address] | [phone] | | | | | [phone] | | | +--------+ + + + [...] [place] | | | | | | [address] | | | | | | | [...]
--- OUTSIDE RECORDS SUMMARY | ~2019-12-17 | XMS | Encounter Summary ---
Demographics + + + | Address | [address] | | | [place] [address] | + + + | Home Phone [...] | | | | [place] [address] | | + + + + + | Juana Gasca | ECON | [address] | | | | | [place] | | | | | [address] | | + + + + + | Chad Gasca | ECON | Unknown | | + + + + + Care Team Providers + +------+ + | Care Cotton Jammer Name | Role | Phone | + [...] + + | 11/10/ | Telephone | [facility] | Spenser Potter, | Cardiac Problem | | 2019 | | CARDIOLOGY JULIAN | [address] | | | | | [address] | [place], | | | | | [place] | [place] [address] | | | | | [address] | [phone] | | | | | [phone] | | | +--------+ + + + [...] insurance did not approve it and a bqkj-kw-icro evaluation was needed". U nfortunately, I did not know anything about this. The rep was there today also ([facility]). I told him we would get this done on Monday, at 11:30 AM and he dominique berry show up at 10 AM. He has the insurance approval letter in his hands ([facility]). He understands the need to take [...] | | | | | [place] | | | | | | [id number] | | | | | | | [...]
--- OUTSIDE RECORDS SUMMARY | ~2019-12-17 | XMS | Encounter Summary ---
Demographics + + + | Address | [address] | | | [place] [address] | + + + | Home Phone [...] | | | | [place] [address] | | + + + + + | Juana Ventura | ECON | [address] | | | | | [place] | | | | | [address] | | + + + + + | Chad Ventura | ECON | Unknown | | + + + + + Care Team Providers + +------+ + | Care Advanced Developer Name | Role | Phone | + +------+ + PCP | Unavailable | + +------+ + Encounter Details +--------+ + + + + | Date | Type | Department | Care Team | Description | +--------+ + + + + | 11/05/ | Hospital | [facility] | Jin Epps MD | Aortic Valve | | 2008 | Encounter | [facility] | [address] | Disorder | | | | CLINICAL DECISION | [place] [address] | | | | | [address] [place] [address] [address]VD | [phone] | | | | | [place], [place] | | | | | | [address] | | | | | | [phone] | | | +--------+ + + + [...] [place] | | | | | | [address] | | | | | | | [...] Performed At | + + + | [id number] | | | Page 1 [facility] NAME: | | | [place] [address] MEDICAL RECORD #: | | | [id number] | | | DATE OF : 1935 ORDER | | | NUMBER: [id number] EXAM DATE/TIME: 11/05/2008 13:07 PERFORMING | | [...] pericardium is normal. | | | MEASUREMENTS Industrial Maintenance Repairer: CM Authenticated | | | by: Jin Epps MD Report Date/Time: 11-06-2008 17:11:22 | | + + + + + | Procedure Note | + + | Raudel Aguillon - 01/28/2019 1:25 AM PDT [id number] | | Page [address] [place] [address] NAME: DENISE [place], | | [place] [id number] : ACCOUNT #: | | [id number]: DATE OF : 1935ORDER NUMBER: | | [id number] DATE/TIME: 11/05/2008 13:07PERFORMING PHYSICIAN: Jin Epps MDORDER [...] The pericardium is normal. MEASUREMENTS | | Industrial Maintenance Repairer: STEFANIEuthenticated by: Jin LATHAMjostin Date/Time: 11-06-2008 17:11:22 [...] | |MEASUREMENTS | | | | | |Industrial Maintenance Repairer: PRESTON | |Authenticated by: Jin Epps MD | |Report Date/Time: 11-06-2008 17:11:22 | + + documented in this encounter Visit Diagnoses + + | Diagnosis | + + | Aortic valve disorder Aortic valve disorders | + + documented in this encounter"
--- OUTSIDE RECORDS SUMMARY | ~2019-12-17 | XMS | Encounter Summary ---
Demographics + + + | Address | [address] | | | [place] [address] | + + + | Home Phone [...] | | | | [place] [address] | | + + + + + | Juana Gasca | ECON | [address] | | | | | [place] | | | | | [address] | | + + + + + | Chad Gasca | ECON | Unknown | | + + + + + Care Team Providers + +------+ + | Care Awning Hanger Helper Name | Role | Phone | [...] + + | 10/20/ | Refill | [facility] | Elif Hylton, | Medication Refill | | 2019 | | CARDIOLOGY [place] | [address] | ([place], | | | | [address] | [place] | Carvedilol, | | | | [address] [address] | [address] | Potassium) | | | | [place] | | | | | | [address] | | | | | | [phone] | | | +--------+--------+ + + + [...] [place] | | | | | | [address] | | | | | | | [...]
--- OUTSIDE RECORDS SUMMARY | ~2019-12-17 | XMS | Encounter Summary ---
Demographics + + + | Address | [address] | | | [place] [address] | + + + | Home Phone [...] | | | | [place] [address] | | + + + + + | Juana Gasca | ECON | [address] | | | | | [place] | | | | | [address] | | + + + + + | hCad Gasca | ECON | Unknown | | + + + + + Care Team Providers + +------+ + | Care Barrel Racer Name | Role | Phone | + +------+ + PCP | Unavailable | + +------+ + Encounter Details +--------+ + + + + | Date | Type | Department | Care Team | Description | +--------+ + + + + | 07/05/ | Hospital | [facility] | Dennyenstein, | | | 2011 | Encounter | MED CTR XRAY [address] | Florence You MD | | | | | [place] | | | | | | [place] [address] | | | | | | [phone] | | | +--------+ + + + [...] | | | | | [place] | | | | | | [address] | | | | | | | [...] Performed At | + + + | [facility] Diagnostic Imaging Department | [facility] | | [address] [facility] | [facility] | | CT CHEST WITHOUT [...] Transcribed Date/Time: | | | 07/06/2011 10:09 Health Equipment Servicer: <Electronically Signed | | | by Vin Reyes MD> 07/07/11 1834 | | + + + + + | Procedure Note | + + | Pal, Rad Conversion - 07/12/2013 4:40 PM Merged with [facility] | | Diagnostic Imaging Department | | [address] , [facility] | | | | | | | [...] | Transcribed Date/Time: 07/06/2011 10:09 | | Health Equipment Servicer: PONCE | | <Electronically Signed by Vin Reyes MD> 07/07/11 1126 | + + + +---------+ + + [...]
--- OUTSIDE RECORDS SUMMARY | ~2019-12-17 | XMS | Encounter Summary ---
Demographics + + + | Address | [address] | | | [place] [address] | + + + | Home Phone [...] | | | | [place] [address] | | + + + + + | Juana Gasca | ECON | [address] | | | | | [place] | | | | | [address] | | + + + + + | Chad Gasca | ECON | Unknown | | + + + + + Care Team Providers + +------+ + | Care Bowling Ball Molder Name | Role | Phone | + [...] | | | | | [place] [address] | | | | | | [phone] | | | +--------+--------+ + + + [...] 2019 | Visit | | MD [address] | | | | | | [place] | | | | | | [address] | | | | | | | [...]
--- OUTSIDE RECORDS SUMMARY | ~2019-12-17 | XMS | Encounter Summary ---
Demographics + + + | Address | [address] | | | [place] [address] | + + + | Home Phone [...] | | | | [place] [address] | | + + + + + | Juana Gasca | ECON | [address] | | | | | [place] | | | | | [address] | | + + + + + | Chad Gasca | ECON | Unknown | | + + + + + Care Team Providers + +------+ + | Care Hand Rug Cleaner Name | Role | Phone | [...] + + | 08/12/ | Refill | [facility] | Yuri Raymond | Medication Refill | | 2019 | | PULMONOLOGY [address] | Rush Raymond MD [address] | | | | | [address] | [place] [address] | | | | | [address] | [place] [address] | | | | | [address] | [phone] | | | | | [phone] | | | +--------+--------+ + + + [...] | | | | | [place], [place] | | | | | | [address] | | | | | | | [...]
--- OUTSIDE RECORDS SUMMARY | ~2019-12-17 | XMS | Encounter Summary ---
Demographics + + + | Address | [address] | | | [place] [address] | + + + | Home Phone [...] | | | | [place] [address] | | + + + + + | Juana Gasca | ECON | [address] | | | | | [place] | | | | | [address] | | + + + + + | Chad Gasca | ECON | Unknown | | + + + + + Care Team Providers + +------+ + | Care Operational Risk Consultant Name | Role | Phone | [...] | | | | | [place] [address] | | | | | | [phone] | | | +--------+--------+ + + + [...] | | | | | [address] [facility] [place] | | | | | | [address] [...]
--- OUTSIDE RECORDS SUMMARY | ~2019-12-17 | XMS | Encounter Summary ---
Demographics + + + | Address | [address] | | | [place] [address] | + + + | Home Phone | | + + + | Preferred Language | Unknown | + + + | Marital Status | | + + + | Orthodoxy Affiliation | 1013 | + + + | Race | Unknown | + + + | Ethnic Group | Unknown | + + + Author + + + | Author | [facility] | | | and [place] | + + + | Organization | [facility] | | [...] | | | | [place] [address] | | + + + + + | Juana Gasca | ECON | [address] | | | | | [place] | | | | | [address] | | + + + + + | Chad Gasca | ECON | Unknown | | + + + + + Care Team Providers + +------+ + | Care Cloth Feeder Name | Role | Phone | [...] + + | 04/26/ | Telephone | [facility] | Alicja Lloyd, | Weight Gain | | 2019 | | CARDIOLOGY JULIAN Davies RN | | | | | [address] | | | | | | [place] | | | | | | [address] | | | | | | [phone] | | | +--------+ + + + [...] from Kassidy ku RN at [facility]. She stated that patient has had [...] [place] | | | | | | [address] | | | | | | | [...]
--- OUTSIDE RECORDS SUMMARY | ~2019-12-17 | XMS | Encounter Summary ---
Demographics + + + | Address | [address] | | | [place] [address] | + + + | Home Phone [...] | | | | [place] [address] | | + + + + + | Juana Gasca | ECON | [address] | | | | | [place] | | | | | [address] | | + + + + + | Chad Gasca | ECON | Unknown | | + + + + + Care Team Providers + +------+ + | Care Tailings Dam Laborer Name | Role | Phone | + [...] [place] | | | | | | [address] | | | | | | [phone] | | | +--------+ + + + [...] | | | | | [place] | | | | | | [address] | | | | | | | [...]
--- OUTSIDE RECORDS SUMMARY | ~2019-12-17 | XMS | Encounter Summary ---
Demographics + + + | Address | [address] | | | [place] [address] | + + + | Home Phone [...] | | | | [place] [address] | | + + + + + | Juana Gasca | ECON | [address] | | | | | [place] | | | | | [address] | | + + + + + | Chad Gasca | ECON | Unknown | | + + + + + Care Team Providers + +------+ + | Care Frog Shaker Name | Role | Phone | + [...] [address] | | | | | [place] [address] | | [address] | | | | | IM[address]FB | | [place], [place] | | | | | PLSE GEN | | [address] Phone: | | | | | W/REPL PLSE | | [phone] | | | | | GEN 1 LEAD | | Fax: | | | | | [place] | | [phone] | | | | | INSJ/RPLCMT | | | | | | | PERM DFB | | | | | | | W/TRNSVNS | | | | | | | LDS 1/DUAL | | | | | | | CHMBR LA | | | | | | | [...] + + | 11/12/ | Hospital | [facility] | Spenser Schultz, | Heart block; Heart | | 2019 | Encounter | [facility] | MD [address] | block; Cardiac | | | | [facility] [address] [facility] | [place], | pacemaker in situ; | | | | [place], [place] | [place] [address] | Atrial fibrillation, | | | | [address] | [phone] | chronic (HCC); S/P | | | | [phone] | | MVR (mitral valve | | [...] incision for one week when you shower [phone] iMOSPHERE cell to send picture of incision in one week GENERATOR CHANGE Discharge Instructions FOLLOW-UP APPOINTMENTS First, be sure to come for all of your post-operative check-ups. The first visit is usually to check that your incision is healing properly. You will be seen by the Nurse or Nurse Pra ctitioner in approximately 7-10 days after pacemaker implantation. Your appointments will be at the [facility] in [place] across from the [facility]. The address is [place], [place]. The office is located on the 3rd floor. This appointment should already be scheduled for you, but if not, please call [phone] to schedule your appointment. [facility] S[facility] CARE [...] might be different fr om the original. [facility] SERVICE: ELECTROPHYSIOLOGY INTERVAL H & [...] tablet Take 1,000 mcg by mouth daily. Egwwyeidwwv-Guupfgqhs-Dbl C-Mn (GLUCOSAMINE 1500 COMPLEX PO) Take 3,000 [...] Hx Pacemaker/ICD: 08/30/2007, Guidant Insignia 1291, SN: [id number]. Last interrogation 10/30/2019 MARY, 96% ASSESSMENT: Patient [...] Schultz MD - 11/13/2019 1:46 PM [facility] OPERATIVE REPORT SPENSER SCHULTZ MD Patient: DENISE GASCA Admitting: SPENSER SCHULTZ MR #: [id number] LOC: PT TYPE: Adm Date: 11/13/2019 : [...] a [employer] Herb model 1882TC, se rial #[id number]. The ventricular lead is a Guidant, model 4088, serial #[id number]. The current pacemaker is a Guidant, model 1291, serial #[id number]. PROCEDURE NOTE: The patient was brought to [...] The lead was attached to a new [employer] Accolade MRI compatible pacemaker (model L310, serial #[id number]). 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 Current pacemaker is at end-of-life Post-operative Diagnosis: Same Procedure(s): Permanent pacemaker generator change out. The dual-chamber pacemaker was melida ngraded to a single-chamber device. The atrial lead was capped off. [employer] scientific mackenzie forrester Surgeon: Spenser Schultz MD Commercial Reporter(s): Sam Anesthesia: Monitor Anesthesia care Estimated Blood [...] [place] | | | | | | [address] | | | | | | | [...] | | | performed at [facility] | | | | | | [facility];[place], [place] | | | | | | [address] | | | | + + + + + + + + | Specimen | + + | Blood | + + + + + + + | Performing | Address | City/State/Zipcode | Phone Number | | Organization | | | | + + + + + | [facility] | [address] | [place] [address] | [phone] | + + + + + Basic [...] | | | performed at [facility] | | | | | | [facility];[place], [place] | | | | | | [address] | | | | + + + + + + + + | Specimen | + + | Blood | + + + + + + + | Performing | Address | City/State/Zipcode | Phone Number | | Organization | | | | + + + + + | [facility] | [address] | [place] [address] | [phone] | + + + + + documented [...]
--- OUTSIDE RECORDS SUMMARY | ~2019-12-17 | XMS | Encounter Summary ---
Demographics + + + | Address | [address] | | | [place] [address] | + + + | Home Phone [...] | | | | [place] [address] | | + + + + + | Juana Ventura | ECON | [address] | | | | | [place] | | | | | [address] | | + + + + + | Chad Ventura | ECON | Unknown | | + + + + + Care Team Providers + +------+ + | Care Press Operator Assistant Name | Role | Phone | + +------+ + PCP | Unavailable | + +------+ + Encounter Details +--------+ + + + + | Date | Type | Department | Care Team | Description | +--------+ + + + + | 08/27/ | Hospital | [facility] | Gabriel Davila, | | | 2007 - | Encounter | HEART MED CTR | MD [address] | | | | | CARDIAC TELEMETRY | [address] [address] | | | 08/30/ | | [address] | [place] [address] | | | 2007 | | Mickey MD | [phone] | | | | | [address] | | | | | | [phone] | | | +--------+ + + + [...] in the office. Gabriel Davila MD P [facility] #[id number] cc: Gabriel Davila MD Segnudo VENTURABrianne Wilmer [id number] 08/31/07 DIS IN [id number] DISCHARGE SUMMARY Gabriel kee MD [facility] THIS REPORT IS CONFIDENTIAL AND NOT TO BE RELEASED WITHOUT PROPER AUTHORIZATION.Electronica lly signed by Gabriel Davila MD at 04/12/2013 5:09 AM PSTdocumented in this encounter Miscellaneous Notes Op Note - Gabriel Davila MD - 04/10/2013 4:15 PM PSTPATIENT NAME: Serge Ventura Age/Sex: 72/M SURGEON: Sudhir Davila MD SURGERY DATE: 08/30/2007 COSURGEON: SAMPLE 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 Electrophysiology study. 2. [...] did not effect the tachycardia. Segundo VENTURA [id number] 08/31/07 DIS IN [id number] OPERATIVE REPORT Gabriel kee MD E-SIGN: [facility] THIS REPORT IS CONFIDENTIAL AND NOT TO BE RELEASED WITHOUT PROPER AUTHORIZATION. [facility] Gabriel Davila MD A [facility] #[id number] cc: Gabriel Davila MD Segundo VENTURA [id number] 08/31/07 [facility] IN [id number] OPERATIVE REPORT Gabriel kee MD E-SIGN: [facility] THIS REPORT IS CONFIDENTIAL AND NOT [...] Date 08/30/07 Implant Date 08/29/07 Date Manufacture Home Restoration Service Cleaner [employer] Herb Home Restoration Service Cleaner r Model 1291 Model 1882TC Model 4088 Serial [id number] Serial [id number] Serial [id number] Atrial Lead Measurements Ventricular Lead Measurements P wave .9 mV R wave 13.0 mV Impedance 554 ohms Impedance 880 ohms Threshold V 0.5ms, mA Threshold 1.5V 0.5ms, 1.8mA No leads exhibited diaphragmatic or phrenic nerve stimulation at 10 V. PROCEDURE: The [facility] The left subclavian area is prepped [...] obtain a ches t x-ray. Segundo VENTURA [id number] 08/31/07 DIS IN Z603-01 [id number] OPERATIVE REPORT Gabriel kee MD E-SIGN: [facility] THIS REPORT IS CONFIDENTIAL AND NOT TO BE RELEASED WITHOUT PROPER AUTHORIZATION. [facility] Gabriel Davila MD P DAC/vfb #[id number]/[id number] cc: Gabriel Davila MD Segundo VENTURA [id number] 08/31/07 DIS IN Z603-01 [id number] OPERATIVE REPORT Gabriel kee MD E-SIGN: [facility] THIS REPORT IS CONFIDENTIAL AND [...] [place] | | | | | | [address] | | | | | | | [...]
--- OUTSIDE RECORDS SUMMARY | ~2019-12-17 | XMS | Encounter Summary ---
Demographics + + + | Address | [address] | | | [place] [address] | + + + | Home Phone [...] | | | | [place] [address] | | + + + + + | Juana Gasca | ECON | [address] | | | | | [place] | | | | | [address] | | + + + + + | Chad Gasca | ECON | Unknown | | + + + + + Care Team Providers + +------+ + | Care Junk Removal Specialist Name | Role | Phone | [...] | (pediatric) | | | | [place] [address] | | | | | | [phone] | | | +--------+ + + + [...] [place] | | | | | | [address] | | | | | | | [...]
--- OUTSIDE RECORDS SUMMARY | ~2019-12-17 | XMS | Encounter Summary ---
Demographics + + + | Address | [address] | | | [place] [address] | + + + | Home Phone [...] | | | | [place] [address] | | + + + + + | Juana Gasca | ECON | [address] | | | | | [place] | | | | | [address] | | + + + + + | Chad Gasca | ECON | Unknown | | + + + + + Care Team Providers + +------+ + | Care Sales Support Consultant Name | Role | Phone | [...] | 05/12/2013) | | | | [place] [address] | [address] | | | | | [phone] | | | +--------+ + + + [...] to the E R at [facility] for difficulty breathing on 05/12/2013. He received a neb treatmen t, a chest x-ray, an Rx for Prednisone 4 tabs/day for 6 days (tomorrow with be his last day) . He was diagnosed with Active COPD and CHF. He says the Prednisone is helping and he is zuleyka athing easier. Will request films be loaded to [facility]. documented in this encounter Plan of Treatment [...] [place] | | | | | | [address] | | | | | | | [...]
--- OUTSIDE RECORDS SUMMARY | ~2019-12-17 | XMS | Encounter Summary ---
Demographics + + + | Address | [address] | | | [place] [address] | + + + | Home Phone [...] | | | | [place] [address] | | + + + + + | Juana Gasca | ECON | [address] | | | | | [place] | | | | | [address] | | + + + + + | Chad Gasca | ECON | Unknown | | + + + + + Care Team Providers + +------+ + | Care Manifest Clerk Name | Role | Phone | + +------+ + PCP | Unavailable | + +------+ + Encounter Details +--------+ + + + + | Date | Type | Department | Care Team | Description | +--------+ + + + + | 07/21/ | Hospital | [facility] | Jin Epps MD | | | 2005 - | Encounter | [facility] | [address] | | | | | INTENSIVE CARE UNIT | [place] [address] | | | 07/22/ | | [address] [facility] | [phone] | | | 2005 | | [place], [place] | | | | | | [address] | | | | | | [phone] | | | +--------+ + + + [...] [place] | | | | | | [address] | | | | | | | [...]
--- OUTSIDE RECORDS SUMMARY | ~2019-12-17 | XMS | Encounter Summary ---
Demographics + + + | Address | [address] | | | [place] [address] | + + + | Home Phone [...] | | | | [place] [address] | | + + + + + | Juana Gasca | ECON | [address] | | | | | [place] | | | | | [address] | | + + + + + | Chad Gasca | ECON | Unknown | | + + + + + Care Team Providers + +------+ + | Care Lap Machine Tender Name | Role | Phone | [...] | | | | | | [place] [address] | | | | | | [phone] | | | +--------+ + + + [...] | | | | [place], [place] | | | | | | [address] | | | | | | | [...]
--- OUTSIDE RECORDS SUMMARY | ~2019-12-17 | XMS | Encounter Summary ---
Demographics + + + | Address | [address] | | | [place] [address] | + + + | Home Phone | | + + + | Preferred Language | Unknown | + + + | Marital Status | | + + + | Nondenominational Affiliation | 1013 | + + + | Race | Unknown | + + + | Ethnic Group | Unknown | + + + Author + + + | Author | [facility] | | | and [place] | + + + | Organization | [facility] [...] | | | | [place] [address] | | + + + + + | Juana Gasca | ECON | [address] | | | | | [place] | | | | | [address] | | + + + + + | Chad Gasca | ECON | Unknown | | + + + + + Care Team Providers + +------+ + | Care Tonsorial Artist Name | Role | Phone | [...] [place] | | | | | | [address] | | | | | | [phone] | | | +--------+ + + + [...] | | | | | [place] | | | | | | [address] | | | | | | | [...]
[~2019-12-17 07:45] MED LIST changes: +ENOXAPARIN100 MG/1 M SUB-Q
--- NOTE | 2019-12-18 13:30 | NUR ---
SPOKE WITH PATIENT IN ROOM. PATIENT WAS UP IN THE CHAIR, JUST FINISHING WITH PHYSICAL THERAPY. STATES HE FEELS "SO WIPED OUT". DISCUSSED TRANSITIONAL CARE PROGRAM AND THAT TODAY HE IS NOW A THERAPY PATIENT NOT A "SICK" PATIENT. HE STATES HE IS VERY GLAD TO STAY HERE FOR THERAPY. HE STATES HE WOULD NOT HAVE GONE TO A [facility] AND DR CABRERA KNEW THAT. I ENCOURAGED HIM TO HAVE SOME COMFORTABLE CLOTHES BROUGHT IN SO HE CAN PRACTICE PUTTING THINGS ON. HE HAS HIS WALKER FROM HOME IN THE ROOM. DISCUSSED IDT MEETINGS ON MondayS AND THAT WE WILL SET SOME GOALS FOR HIM TO WORK ON. HE STATES UNDERSTANDING.
--- NOTE | 2019-12-18 14:29 | NUR ---
PT SITTING IN CHAIR, JUST FINISHED VISIT WITH PRESTON BROOKS AND HAS ENTERED OUR TRANSITIONAL BED PROG. PT SEEMS ALITTLE CONFUSED TODAY-UNABLE TO RECALL HIS ST ADDRESS AND TRIED TO EXPLAIN WHERE IT WAS AND CONFUSION SET IN MORE. PT DID REQUEST I CONTACT HIS GENERAL FOUNDRY WORKER AND UPDATE HIM. ANSWERED ALONZO ASKED REGARDING SWING BED. GAVE BLESSING
--- NOTE | 2019-12-18 14:44 | NUR ---
MED REC COMPLETE
--- NOTE | 2019-12-18 19:13 | NUR ---
IN ROOM FOR REPORT, PT IS IN RESTROOM WITH HELP FROM LICENSED RETAIL SUPERVISOR.
--- NOTE | 2019-12-18 22:15 | NUR ---
PT USED URINAL AND HAD A SMALL BM IN ATTENDS. GOT PT CLEANED UP AND FRESH CHUX/ATTENDS IN PLACE. PT REPORTS ONLY MILD PAIN 2/10 AND DENIES NEED FOR ANYTHING STRONGER THAN SCHEDULED TYLENOL. VS STABLE AND ENTERED, I&O'S ENTERED AND CRYO CUFF IS IN PLACE WITH FRESH ICE. AES AND SCD IN PLACE. PT DENIES FURTHER NEEDS AT THIS TIME. BIPAP IS IN ON AND CALL LIGHT IS CLOSE.
--- NOTE | 2019-12-18 23:10 | NUR ---
PT IS RESTING WITH EYES CLOSED, RR IS EVEN AND NONLABORED. CALL LIGHT IS CLOSE.
--- NOTE | 2019-12-19 00:42 | NUR ---
PT IS RESTING WITH EYES CLOSED, RR IS EVEN AND NONLABORED ON BIPAP. CALL LIGHT IS CLOSE.
--- NOTE | 2019-12-19 01:28 | NUR ---
PT IS RESTING WITH EYES CLOSED, RR IS EVEN AND NONLABORED. CALL LIGHT IS CLOSE.
--- NOTE | 2019-12-19 03:11 | NUR ---
PT IS RESTING WITH EYES CLOSED, RR IS EVEN AND NONLABORED. CALL LIGHT IS CLOSE.
--- NOTE | 2019-12-19 05:08 | NUR ---
PT IS RESTING WITH EYES CLOSED, RR IS EVEN AND NONLABORED WITH BIPAP. CALL LIGHT IS CLOSE.
--- NOTE | 2019-12-19 05:47 | NUR ---
I&OS DONE AND CHARTED. FILLED CRYO WITH FRESH ICE. FRESH ICE WATER GIVEN. GARBAGES EMPTIED. PT APPEARED TO BE SLEEPING WHEN I LEFT.
--- NOTE | 2019-12-19 06:55 | NUR ---
IN ROOM TO ADMINISTER MEDS, PT REPORTS PAIN AT 7/10 WITH MOVEMENT. ADMINISTERED 5MG OXYCODONE. ADVISED PT HE CAN HAVE A HIGHER DOSE IF NEEDED. PT DENIES FURTHER NEEDS AT THIS TIME. CALL LIGHT IS CLOSE.
--- NOTE | 2019-12-19 07:20 | NUR ---
PT PULLED PAULETTE PUMP/TUBING OFF DURING SLEEP UNINTENTIONALLY. SPOKE WITH DR CABRERA, HE WAS OK WITH COVERING THE OPEN HOLE WITH CLEAR DRESSING. PLACED TEGADERM OVER SITE. PT DENIES NEEDS AT THIS TIME. CALL LIGHT IS CLOSE.
--- NOTE | 2019-12-19 09:10 | NUR ---
PT SITTING UP IN BED, JUST FINISHED BREAKFAST, REPORTS PAIN IS MUCH IMPROVED SINCE TAKING OXYCODONE EARLIER, LOOKING FORWARD TO PT. TALKING WITH ON THE PHONE.
--- NOTE | 2019-12-19 11:02 | NUR ---
JUST FINISHED WALKING IN HALLWAY WITH PHYSICAL THERAPY, TOLERATED WELL, ICE WATER FRESHENED, SITTING UP IN RECLINER, REMAINS IN GOOD SPIRITS, DENIES ANY NEEDS, CALL LIGHT IN REACH.
--- NOTE | 2019-12-19 12:42 | NUR ---
PT CALL LIGHT ON. PT REQUESTS ASSISTANCE WITH URINAL. PT ASSISTED AND VOIDS 150ML WITHOUT ISSUE. LUNCH ORDER PLACED FOR PT. PT DENIES ADDITIONAL REQUESTS OR COMPLAINTS. CALL LIGHT WITHIN REACH.
--- NOTE | 2019-12-19 13:53 | NUR ---
PT IS RESTING ON BED WATCHING TV SHOW, SCHEDULED MEDS GIVEN. DENIES ANY NEEDS. CALL LIGHT IN EASY REACH.
--- NOTE | 2019-12-19 13:57 | NUR ---
PATIENT AWAKE IN BED. VITALS AND I&OS CHARTED. CRYO REFILLED.CALL LIGHT IN REACH
--- NOTE | 2019-12-19 19:34 | NUR ---
Assisted pt from bathroom back into bed. Helped pt to clean up after using the toilet. Refilled pts cryo cuff. Offered for pt to brush teeth, pt stated he already had earlier in the evening. Pt has bed alarm on, call light, cell phone, and room phone all within reach of pt.
--- NOTE | 2019-12-19 19:49 | NUR ---
PATIENT BACK FROM THE BATHROOM WATCHING TV AND ON HIS PHONE. CALL LIGHT IN REACH.
--- NOTE | 2019-12-19 21:30 | NUR ---
BED ALARM WENT OFF , HE WAS JUST MOVING HIMSELF UP IN BE. HE NEEDS NOTHING AT THIS TIME. BED ALARM SET. BEDSIDE TABLE AND CALL LIGHT IN REACH.
--- NOTE | 2019-12-19 22:07 | NUR ---
BED ALARM WENT OFF , I WENT INTO CHECK ON HIM. HE WAS JUST MOVING HIMSELF UP IN BED. BED ALARM SET AGAIN. PT NEEDS NOTHING AT THIS TIME.
--- NOTE | 2019-12-19 23:58 | NUR ---
PATIENT RESTING QUIETLY SUPINE, EVEN AND REGULAR RESPIRATIONS, EYES CLOSED, NO DISTRESS NOTED, CALL LIGHT IN REACH.
--- NOTE | 2019-12-20 01:42 | NUR ---
changed pt 's attend and chauck wet with urine. emptied his urinal. filled his cryo with fresh ice. bedside table and call light in reach. pt needs nothing more at this time.
--- NOTE | 2019-12-20 02:15 | NUR ---
PATIENT RESTING QUIETLY SUPINE, RESPIRATIONS REGULAR AND EVEN, EYES CLOSED, CALL LIGHT IN REACH.
--- NOTE | 2019-12-20 05:00 | NUR ---
PATIENT SAYS HE DID NOT REST WELL, BUT NOT REALLY HAVING ANY PAIN, SEVERAL VOIDS AND A COUPLE INCONTINENT EPISODES THROUGH THE NIGHT. RIGHT KNEE STILL HAS CRYO CUFF JUST REFILLED. LEFT LEG STILL WARM/RED/ BRUISED AND 2 ALLEVYN DRESSING AND OTHER LONG FOAM DRESSINGS STILL HAVE DRIED BROWNISH DRAINAGE ON THEM. PATIENT PUT CPAP BACK ON AND IS GOING TO TRY AND GET MORE SLEEP. CALL LIGHT IN REACH.
--- NOTE | 2019-12-20 07:26 | NUR ---
RECEIVED REPORT FROM SHANNON MILES. PT AWAKE AND SPEAKING TO HIS ON HIS CELL PHONE. PT HAS NO COMPLAINTS OR IMMEDIATE NEEDS AT THIS TIME
--- NOTE | 2019-12-20 08:32 | NUR ---
IN PTS ROOM TO GIVE MORNING MEDS AND DO ASSESSMENT. PT IS SITTING UP IN CHAIR. PT STATES THAT HIS PAIN IS 5/10, PT DOES REQUEST 5MG OF OXY AT THIS TIME SO HE WILL BE READY FOR PHYSICAL THERAPY
--- NOTE | 2019-12-20 09:29 | NUR ---
PATIENT BRUSHED HIS OWN TEETH AND WASHED HIS FACE AND WE ARE PLANNING ON TAKEING A SHOWER SOMETIME TODAY.
--- NOTE | 2019-12-20 14:46 | NUR ---
I ASKED PATIENT IF HE WOULD LIKE TO TAKE A SHOWER NOW AND HE TOLD ME HE LIKES TO TAKE HIS SHOWERS IN THE MORNING. SO WE DECIDED THAT HE WANTS TO TAKE A SHOWER AFTER PHYSICAL THERAPY TOMORROW. SO I WILL SET HIM UP FOR TOMORROW.
--- NOTE | 2019-12-20 19:40 | NUR ---
PATIENT RESTING QUIETLY, RESPIRATIONS REGULAR AND EVEN, EYES CLOSED, CALL LIGHT IN PLACE.
--- NOTE | 2019-12-20 22:27 | NUR ---
CLIENT SERVICE SUPERVISOR ROUNDING NOTE. PT RESTING IN BED WITH CPAP ON, EYES CLOSED, APPEARS TO BE SLEEPING. WHITEBOARD UPDATED. CALL LIGHT IN REACH.
--- NOTE | 2019-12-20 23:12 | NUR ---
PATIENT RESTING QUIETLY SUPINE ON HIS CPAP MACHINE HAVING REGULAR RESPIRATIONS. CALL LIGHT IN REACH.
--- NOTE | 2019-12-21 00:44 | NUR ---
PATIENT RESTING QUIETLY STILL ON HIS CPAP, EYES CLOSED, RESPIRATIONS REGULAR, CALL LIGHT IN REACH.
--- NOTE | 2019-12-21 03:25 | NUR ---
CALL RECEIVED FROM SUPERVISOR CARPENTERS, PT USING ROOM PHONE TO CALL CODE PHONE, ASKING FOR RN ASSISTANCE. DIRECTOR COMMERCIAL SALES TO ROOM, PT SITTING AT EDGE OF BED WITH GOWN, BED, AND FLOOR SATURATED WITH URINE. PT ASSISTED TO TRANSFER TO THE CHAIR. CHANGED PT'S GOWN, LINENS, AND NEW ATTENDS PLACED. PT STATES THAT HE WOULD LIKE TO CONTINUE TO REST IN THE CHAIR FOR A WHILE HE FEELS COMFORTABLE. STATES HE DOESN'T KNOW WHAT HAPPENED, "I JUST WOKE UP CONFUSED". PT DENIES FURTHER NEEDS AT THIS TIEM. ICE REFILLED TO CRYOCUFF, ICE WATER REFILLED, CHAIR ALARM PLACED, WARM BLANKET PROVIDED. CALL LIGHT IN REACH.
--- NOTE | 2019-12-21 05:44 | NUR ---
PATINT GETS A LITTLE CONFUSED WHEN HE FIRST WAKES UP, BUT CLEARS QUICKLY WHEN REDIRECTED. PATIENT GOT 2 OXYCODONE FOR PAIN AT EVENING MED PASS AND DID NOT C/O ANYMORE PAIN THROUGH THE NIGHT. PATIENT MAINLY VOIDS IN THE URINAL, BUT DID HAVE ONE LARGE INCONTINENT EPISODE THAT REQUIRED A BED AND CLOTHING CHANGE. PATIENT SAT UP IN THE CHAIR FOR AWHILE AND THEN DECIDED TO GO BACK TO BED. PATIENT HAS USED HIS CPAP IN BED ALL NIGHT. CALL LIGHT IN REACH.
--- NOTE | 2019-12-21 16:49 | NUR ---
IN PTS ROOM TO GIVE AFTERNOON MEDS AND TO DO A DRESSING CHANGE. THIS RN REMOVED THE OLD DRESSING AND PLACED MEPILEX OVER THE SURGICAL SITE, AND THEN 2 ALLEVEN DRESSINGS ON PTS SKIN TEARS ON HIS ZAPATA WITH 1 ALLEVEN ON THE OUTSIDE OF THE KNEE OVER HIS BLISTER. PT TOLERATED WELL
--- NOTE | 2019-12-21 20:09 | NUR ---
LABORATORY OPERATIONS COORDINATOR ROUNDING NOTE. SENIOR PAINTER TO ROOM FOR BED ALARM SOUNDING, PT STATES HE WAS JUST REPOSITIONING IN BED. PT ON THE PHONE WITH HIS . REQUESTS FRESH ICE WATER, PROVIDED. PT DENIES FURTHER NEEDS AT THIS TIME. CALL LIGHT IN REACH. BED ALARM ACTIVE. WHITE BOARD UDPATED. PRIMARY RN AND SUPPORT STAFF AT BEDSIDE.
--- NOTE | 2019-12-21 22:05 | NUR ---
PATIENT RESTING QUIETLY, WITH EYES CLOSED ON HIS CPAP, NO DISTRESS NOTED, CALL LIGHT IN REACH AND BED ALARM ON.
--- NOTE | 2019-12-22 00:30 | NUR ---
PATIENT SET OFF BED ALARM PULLING HIMSELF UP IN BED. PATIENT'S LLE HURTING 5/10 AND HIS SOCKS WERE TAKEN OFF BOTH FEET, URINAL EMPTIED AND WATER GLASS REFILLED AND HE IS GETTING 10MG OF OXYCODONE FOR HIS LEG PAIN. PATIENT GOING BACK ON HIS CPAP. CALL LIGHT IN REACH.
--- NOTE | 2019-12-22 02:29 | NUR ---
PATIENT RESTING QUIETLY SUPINE, ON CPAP WITH EYES CLOSED AND REGULAR RESPIRATIONS. CALL LIGHT AND URINAL IN REACH, AND BED ALARM ON.
--- NOTE | 2019-12-22 04:51 | NUR ---
PATIENT HAS BEEN SLEEPING MOST OF THE NIGHT IN BED WITH HIS CPAP ON AND ONLY NEEDED OXYCODONE IN THE NIGHT X1 FOR LLE PAIN. CRYO CUFF REMAINS ON AND SCD ON RIGHT LEG. NEW DRESSING FROM PA STILL IN PLACE FROM YESTERDAY. BED ALARM REMAINS ON AND CALL LIGHT IN REACH.
--- NOTE | 2019-12-22 07:24 | NUR ---
RECIEVED REPORT FROM SHANNON MILES. PT AWAKE AND STIING UP IN BED PLAYING ON HIS PHONE AT THIS TIME. PT IN GOOD SPIRITS THIS AM AND HAS NO COMPLAINTS AT THIS TIME
--- NOTE | 2019-12-22 13:08 | NUR ---
THIS RN PLACED AN ALLEVEN DRESSING ON PTS COCCYX DUE TO A SMALL RED SPOT THAT IS BLANCHABLE
--- NOTE | 2019-12-22 13:10 | NUR ---
PT BACK TO BED AT THIS TIME. PT STATES THAT THE CHAIR IS VERY UNCOMFORTABLE. WITH ASSISSTANCE FROM SHASHI VARGAS, PTS HIPS ARE FLOATED WITH PILLOWS.
--- NOTE | 2019-12-22 17:02 | NUR ---
PATIENT IS LAYING IN BED NOW. ALSO VISITING WITH HIS SON.
--- NOTE | 2019-12-22 17:15 | NUR ---
RE-FILLED CRYO.
--- NOTE | 2019-12-22 19:29 | NUR ---
SHIFT REPORT FROM NURSE HOOVER. PT LAYING IN BED SLEEPING. NO APPARENT SIGNS OF DISTRESS.
--- NOTE | 2019-12-22 19:59 | NUR ---
ARTIST'S MANAGER ROUNDING NOTE. BLOCK LAYER AND PRIMARY RN TO BEDSIDE FOR BED ALARM SOUNDING. PT REPORTS REPOSITIONING HIMSELF IN BED. PT STATES THAT HE IS MEETING HIS THERAPY GOALS, HAPPY WITH HOW HE IS PROGESSING. STATES THAT HIS SON IS IN TOWN FROM [place] TO ASSIST WITH HIS CARE. PT DENIES FURTHER NEEDS AT THIS TIME. PRIMARY RN REMAINS AT BEDSIDE. WHITE BOARD UPDATED.
--- NOTE | 2019-12-22 21:43 | NUR ---
ASSESSMENT COMPLETE. PT REPORTS HE IS READY TO SLEEP. MEDICATIONS ADMINISTERED AND THEN PT PUT ON CPAP. WATER ADDED TO CPAP IT WAS COMPLETELY DRY. SCD ON, CRYO ON. NO FURTHER NEEDS AT THIS TIME.
--- NOTE | 2019-12-22 23:42 | NUR ---
BED ALARM ANSWERED. PT NEEDS TO USE URINAL. PT SAT AT BEDSIDE WITH ASSISTANCE TO URINATE. PT RETURNED TO BED, SCD REPLACED, CRYO ON. NO FURTHER NEEDS AT THIS TIME.
--- NOTE | 2019-12-23 02:24 | NUR ---
ROUNDS COMPLETE. PT IS SLEEPING ON BACK WITH CPAP ON. CALL LIGHT WITHIN REACH.
--- NOTE | 2019-12-23 04:36 | NUR ---
CALL LIGHT ANSWERED. PT REQUESTED ASSISTANCE WITH URINAL. DEPENDS WAS ALSO WET AND WAS REPLACED AT THIS TIME. PT ALSO REQUESTED PRN OXYCODONE FOR PAIN 6-7/10 IN LEFT LEG. OXYCODONE ADMINISTERED, ICE IN CRYO CUFF REFRESHED, COFFEE AND RADHA CRACKERS PROVIDED PER REQUEST OF PT. CALL LIGHT WITHIN REACH. NO FURTHER NEEDS AT THIS TIME.
--- NOTE | 2019-12-23 07:15 | NUR ---
received report from maura colón. pt is awake and has no complaints at this time.
--- NOTE | 2019-12-23 08:39 | NUR ---
IN PTS ROOM TO GIVE MORNING MEDS AND DOASSESSMENT. PT APPEARS A BIT DROWSY THIS AM. PT STATES THAT HE HAS BEEN AWAKE SINCE 0430 THIS AM. PT STATES THAT HE IS READY FOR A NAP. DISCUSSED WITH PT THAT WE WILL BE MOCING HIM TO A NEW ROOM SOON, PT AGREEABLE
--- NOTE | 2019-12-23 09:25 | NUR ---
SPOKE WITH PATIENT IN ROOM. 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 HE FEELS HE IS GETTING CLOSE TO GOING HOME SINCE HIS SON IS AROUND. DISCUSSED THAT HE NEEDS TO TALK WITH DR CABRERA ON THIS. DISCUSSED THAT THERAPY FEELS HE IS MAKING GOOD ADVANCES. LEFT LEG IS STILL SWOLLEN AND DISCOLORED, BUT HE STATES "ITS BETTER". FEELS PAIN IS CONTROLLED. ENCOURAGED TO CONTINUE PT/OT WORK.
--- NOTE | 2019-12-23 10:31 | NUR ---
PT UP IN THE CHAIR AT THIS TIME. PTS SON IS IN ROOM VISITING WITH PT
[2019-12-23] MEDS ORDERED: SENNA LAX8.6 MG PO (12:20)
[2019-12-23] MEDS ORDERED: GABAPENTIN400 MG PO (12:20)
[2019-12-23] MEDS ORDERED: OXYCODONE HCL5 MG PO (12:20)
--- NOTE | 2019-12-23 14:01 | NUR ---
PT'S SON IN, PT ALERT, ORIENTED AND GETTING READY FOR DC. PT SEEMS EXCITED, SON SEEMS READY TO HELP. EXTENDED A BLESSING
--- NOTE | 2019-12-23 15:19 | NUR ---
FAXED ORDER FOR OUTPATIENT THERAPY TO [facility] [phone] WITH CLINICALS. FAX CONFIRMATION RECEIVED 12/23/19 331PM.
== END 2019-12-23 14:45 | disposition home or self-care (01) | DRG 561 ==
LOC: MS 07:45
PROVIDERS: ADMIT Specialist
DX: Z47.1 Aftercare following joint replacement surgery (principal); Z96.652 Presence of left artificial knee joint; Z88.8 Allergy status to other drugs, medicaments and biological substances; Z88.2 Allergy status to sulfonamides; Z88.1 Allergy status to other antibiotic agents; Z79.01 Long term (current) use of anticoagulants
CPT/HCPCS: 36415; 85025; 85610; 94640; 97110; 97116; 97162; 97535

== ENCOUNTER 2020-01-17 07:30 | Day surgery (SDC) | payer MEDICARE ==
[~2020-01-17] VITALS: Ht 185.4 cm; Wt 105.7 kg
[~2020-01-17 07:30] MED LIST changes: +GABAPENTIN400 MG PO; +OXYCODONE HCL5 MG PO; +SENNA LAX8.6 MG PO
[2020-01-17] MEDS ORDERED: OXYCODONE HCL5 MG PO (08:32)
--- NOTE | 2020-01-17 10:15 | NUR ---
01/17/20 Jessica5 Terese Saeed 1007 PATIENT ARRIVES TO PACU UNRESPONSIVE TO PAIN. ORAL AIRWAY IN PLACE. RESP EVEN AND UNLABORED, MASK AT 6 LITERS. 1014 PATIENT RESTING WITH EYES CLOSED, ORAL AIRWAY IN PLACED, NODS HEAD TO VERBAL STIMULI, BUT DOES NOT OPEN EYES. RESP EVEN AND UNLABORED, MASK CONTINUED AT 6 LITERS.
--- NOTE | 2020-01-17 10:58 | NUR ---
ATE PUDDING JELLO CRACKERS AND WATER PRIOR TO PAIN PILL.
--- NOTE | 2020-01-17 11:40 | NUR ---
CONTS TO C/O PAIN NOW AT 02/12. CALL TO DR CABRERA AND TO GIVE 1MG DILAUDID IV.
--- NOTE | 2020-01-17 12:55 | NUR ---
1240 PT RATES PAIN 6-7/10 DOWN FROM 9-[address] RICK NARAYAN FOR PT TO GO HOME AND TAKE USUAL MEDS AND TO TAKE OXYCODONE EVERY 4HRS TO KEEP PAIN UNDER CONTROL TODAY. PECO DRESSING GIVEN TO PT TO TAKE TO [facility]PT. HERE TO PICK PT UP.
--- NOTE | 2020-01-20 08:17 | OR ---
[facility] [address], [place] [address] Signed DATE OF OPERATION: 01/17/2020 SURGEON: Javier Su MD PREOPERATIVE DIAGNOSIS: Wound dehiscence and breakdown, left total knee. POSTOPERATIVE DIAGNOSIS: Wound dehiscence and breakdown, left total knee. PROCEDURE PERFORMED: Revision wound closure, left total knee. STOCKROOM ASSOCIATE: Ryan FERRELL ANESTHESIA: General. BLOOD LOSS: 150 mL. TOURNIQUET TIME: Zero. BRIEF HISTORY: Denise is an 84-year-old gentleman, who underwent total knee arthroplasty about three weeks ago. He had substantial swelling and ecchymosis in his leg secondary to heavy anticoagulation for valvular disease. He subsequently got the swelling down; however, the wound continued to break down and was felt to be a risk for infection. Risks and benefits of operative treatment were discussed with him, he elected to proceed. DESCRIPTION OF PROCEDURE: Once consent was obtained, he was taken to the operating room after adequate anesthesia. Once he was taken to the operating room, he was placed under general anesthesia. The left leg was prepped and draped in a standard sterile fashion. We did remove the remaining taye in the knee. The central one-third of the wound was healed. The inferior one-third and top one-quarter were not and these were excised by an ellipse circumferentially. Excellent bleeding was obtained in all wounds. There was no significant infection underneath. The underlying capsular repair was completely intact. Electronically Signed By: JAVIER SU MD 01/20/20 0817 PATIENT NAME: DENISE VENTURA OPERATIVE REPORT DATE OF : 37 REPORT #: [id number] PHYSICIAN: JAVIER SU MD PCP: MED TIWARI MD REPORT IS CONFIDENTIAL AND NOT TO BE RELEASED WITHOUT AUTHORIZATION [facility] [address], [place] [address] Signed The patient did have excellent range of motion and strength and virtually no pain in his knee prior to surgery. He was ambulating with a single-point cane. Both wounds were then copiously washed out with antibiotic irrigation under pulse lavage. The lower wound was then undermined to create skin flaps medially and laterally and was closed using a [id number]-[id number]-eas stitch from top to bottom, eventually closing the wound with minimal skin tension. The upper wound was easily closed and no skin tension was noted on it. Again, the central third of the wound was already healed, this was left along. The knee was taken through range of motion 0-80 degrees, showed no tension on the wound or repair. The wound was then cleaned and dressed with a large PAULETTE wound VAC dressing and the knee was dressed with sterile cast padding, sterile Kerlix, and with a Coban dressing lightly applied. The patient was then awakened and taken to the recovery room in satisfactory condition. All sponge, needle, and instrument counts were correct. Javier Su MD BA/ANGIEL /[id number] Copies: ~ Electronically Signed By: JAVIER SU MD 01/20/20 0817 PATIENT NAME: AUDREYDENISE ZAINAB OPERATIVE REPORT DATE OF : 37 REPORT #: [id number] PHYSICIAN: JAVIER SU MD PCP: MED TIWARI MD REPORT IS CONFIDENTIAL AND NOT TO BE RELEASED WITHOUT AUTHORIZATION
== END 2020-01-17 12:45 | disposition home or self-care (01) ==
LOC: DS 07:30
PROVIDERS: Specialist
PROC: 0YQGXZZ Repair Left Knee Region, External Approach (ICD-10-PCS; principal; 2020-01-17 09:00)
DX: T81.32XA Disruption of internal operation (surgical) wound, not elsewhere classified, initial encounter (principal); I12.9 Hypertensive chronic kidney disease with stage 1 through stage 4 chronic kidney disease, or unspecified chronic kidney disease; E11.22 Type 2 diabetes mellitus with diabetic chronic kidney disease; N18.3 Chronic kidney disease, stage 3 (moderate); I25.10 Atherosclerotic heart disease of native coronary artery without angina pectoris; I48.91 Unspecified atrial fibrillation; J44.9 Chronic obstructive pulmonary disease, unspecified; G47.33 Obstructive sleep apnea (adult) (pediatric); Z96.652 Presence of left artificial knee joint; Z79.899 Other long term (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; Z79.82 Long term (current) use of aspirin; Z79.01 Long term (current) use of anticoagulants; Z87.891 Personal history of nicotine dependence; Z99.89 Dependence on other enabling machines and devices
CPT/HCPCS: 00400; A9270; J1100; J1170; J2001; J2370; J2405; J3010; J3370; J7040; J7060; J7121

== ENCOUNTER 2021-08-30 15:05 | Emergency (ER) | payer MEDICARE ==
[~2021-08-30] VITALS: Ht 185.4 cm; Wt 111.3 kg
[~2021-08-30 15:05] MED LIST changes: +ALLOPURINOL100 MG PO; +CARVEDILOL12.5 MG PO; +OXYBUTYNIN CHLOR5 M1 PO; +OXYBUTYNIN CHLOR5 MG PO
--- OUTSIDE RECORDS SUMMARY | 2021-08-30 15:12 | XMS ---
PreManage Notification: DENISE VENTURA Security Blast [employer] Blower Events No recent Security Events currently on file CRITERIA MET - Group Notification - ED - Positive COVID-19 Lab Result - [facility] MED TIWARI [facility] 01/08/2018-Current PHONE: Unknown SUSAN SALDANA [facility] Current PHONE: [phone] Tonya has no Care Guidelines for this patient. EUrszula VISIT COUNT (12 MO.) 1 MORIAH Mccloud TOTAL 1 NOTE: Visits indicate total known visits. ED/UCC VISIT TRACKING (12 MO.) 08/30/2021 15:05 MORIAH Robles [place] TYPE: Emergency COMPLAINT: - NOSE BLEED INPATIENT VISIT TRACKING (12 MO.) No inpatient visits to display in this time frame [email or web address]
[2021-08-31] MEDS ORDERED: WARFARIN SODIUM5 MG PO (11:33)
== END 2021-08-30 18:10 | disposition home or self-care (01) ==
LOC: ED 15:05
DX: R04.0 Epistaxis (principal); E11.9 Type 2 diabetes mellitus without complications; J44.9 Chronic obstructive pulmonary disease, unspecified; Z87.891 Personal history of nicotine dependence; Z88.8 Allergy status to other drugs, medicaments and biological substances; Z79.899 Other long term (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; Z79.84 Long term (current) use of oral hypoglycemic drugs; Z79.01 Long term (current) use of anticoagulants; Z79.82 Long term (current) use of aspirin
CPT/HCPCS: 30901; 36415; 85610; 99283-25

== ENCOUNTER 2022-01-02 11:13 | Emergency (ER) | payer MEDICARE ==
[~2022-01-02] VITALS: Ht 185.4 cm; Wt 109.5 kg
[~2022-01-02 11:13] MED LIST changes: +WARFARIN SODIUM5 MG PO
--- OUTSIDE RECORDS SUMMARY | 2022-01-02 11:20 | XMS ---
PreManage Notification: DENISE VENTURA Security Shear Operator Automatic Events No recent Security Events currently on file CRITERIA MET - Group Notification CARE PROVIDERS MED TIWARI [facility] 01/08/2018-Current PHONE: Unknown SUSAN SALDANA [facility] Current PHONE: [phone] Tonya has no Care Guidelines for this patient. Angel VISIT COUNT (12 MO.) 2 MORIAH Mccloud TOTAL 2 NOTE: Visits indicate total known visits. ED/UCC VISIT TRACKING (12 MO.) 01/02/2022 11:14 [facility] [place] TYPE: Emergency COMPLAINT: - NOSE BLEED 08/30/2021 15:05 [facility] Rob[place] TYPE: Emergency COMPLAINT: - NOSE BLEED DIAGNOSES: - Personal history of nicotine dependence - Allergy status to other drugs, medicaments and biological substances - Chronic obstructive pulmonary disease, unspecified - Type 2 diabetes mellitus without complications - termite control representative (current) use of oral hypoglycemic drugs - termite control representative (current) use of anticoagulants - termite control representative (current) use of aspirin - Other custodial (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 - Epistaxis INPATIENT VISIT TRACKING (12 MO.) No inpatient visits to display in this time frame [id number]
== END 2022-01-02 13:42 | disposition home or self-care (01) ==
LOC: ED 11:13
DX: R04.0 Epistaxis (principal); Z87.891 Personal history of nicotine dependence; Z88.8 Allergy status to other drugs, medicaments and biological substances; Z79.84 Long term (current) use of oral hypoglycemic drugs; Z79.01 Long term (current) use of anticoagulants; Z95.5 Presence of coronary angioplasty implant and graft; Z79.82 Long term (current) use of aspirin; Z79.899 Other long term (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
CPT/HCPCS: 36415; 85025; 85610

== ENCOUNTER 2022-02-28 05:46 | Emergency (ER) | payer MEDICARE ==
[~2022-02-28] VITALS: Ht 182.9 cm; Wt 110.9 kg
--- OUTSIDE RECORDS SUMMARY | 2022-02-28 05:54 | XMS ---
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 Angel VISIT COUNT (12 MO.) Ozzy Mccloud TOTAL 3 NOTE: Visits indicate total known visits. ED/UCC VISIT TRACKING (12 MO.) 02/28/2022 05:47 [facility] Rob[place] TYPE: Emergency COMPLAINT: - BLOODY NOSE 1 HOUR 01/02/2022 11:14 [facility] [place] TYPE: Emergency COMPLAINT: - NOSE BLEED DIAGNOSES: - extermination inspector (current) use of anticoagulants - extermination inspector (current) use of oral hypoglycemic drugs - Other senior care (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 - Personal history of nicotine dependence - extermination inspector (current) use of aspirin - Epistaxis - Presence of coronary angioplasty implant and graft - Allergy status to other drugs, medicaments and biological substances 08/30/2021 15:[address] [facility] [place] TYPE: Emergency COMPLAINT: - NOSE BLEED DIAGNOSES: - Allergy status to other drugs, medicaments and biological substances - Epistaxis - extermination inspector (current) use of aspirin - alf (current) use of oral hypoglycemic drugs - Chronic obstructive pulmonary disease, unspecified - Personal history of nicotine dependence - Other extermination inspector (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 - alf (current) use of anticoagulants - Type 2 diabetes mellitus without complications INPATIENT VISIT TRACKING (12 MO.) No inpatient visits to display in this time frame [id number]
[2022-03-01] MEDS ORDERED: HYDROCODON-ACE1 EA10 PO (10:03)
== END 2022-02-28 08:03 | disposition home or self-care (01) ==
LOC: ED 05:46
PROC: 093K7ZZ Control Bleeding in Nasal Mucosa and Soft Tissue, Via Natural or Artificial Opening (ICD-10-PCS; principal; 2022-02-28)
DX: R04.0 Epistaxis (principal); E11.9 Type 2 diabetes mellitus without complications; J44.9 Chronic obstructive pulmonary disease, unspecified; Z95.0 Presence of cardiac pacemaker; Z87.891 Personal history of nicotine dependence; Z88.8 Allergy status to other drugs, medicaments and biological substances; Z88.2 Allergy status to sulfonamides; Z79.899 Other long term (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; Z79.01 Long term (current) use of anticoagulants; Z79.84 Long term (current) use of oral hypoglycemic drugs
CPT/HCPCS: 30901; 36415; 85025; 85610; 85730; 99283-25

== ENCOUNTER 2022-03-01 04:26 | Emergency (ER) | payer MEDICARE ==
[~2022-03-01] VITALS: Ht 182.9 cm; Wt 110.9 kg
--- OUTSIDE RECORDS SUMMARY | 2022-03-01 04:28 | XMS ---
PreManage Notification: DENISE VENTURA Security End Maker Events No recent Security Events currently on file CRITERIA MET - [facility] - 2 Visits in 30 Days - Group Notification CARE PROVIDERS MED TIWARI [facility] 01/08/2018-Current PHONE: Unknown SUSAN SALDANA [facility] Current PHONE: [phone] Tonya has no Care Guidelines for this patient. Angel VISIT COUNT (12 MO.) [address] [place] [address] TOTAL 4 NOTE: Visits indicate total known visits. 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 truck driver (current) use of anticoagulants - regional intermodal truck driver (current) use of oral hypoglycemic drugs - Other detention (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 - Personal history of nicotine dependence - detention (current) use of aspirin - Epistaxis - Presence of coronary angioplasty implant and graft 08/30/2021 15:05 [facility] [place] TYPE: Emergency COMPLAINT: - NOSE BLEED DIAGNOSES: - Type 2 diabetes mellitus without complications - Allergy status to other drugs, medicaments and biological substances - Epistaxis - detention (current) use of aspirin - regional intermodal truck driver (current) use of oral hypoglycemic drugs - Chronic obstructive pulmonary disease, unspecified - Personal history of nicotine dependence - Other terminal makeup operator (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 - regional intermodal truck driver (current) use of anticoagulants INPATIENT VISIT TRACKING (12 MO.) No inpatient visits to display in this time frame [id number]
[2022-03-01] MEDS ORDERED: HYDROCODON-ACE1 EA10 PO (10:03)
== END 2022-03-01 10:13 | disposition home or self-care (01) ==
LOC: ED 04:26
PROC: 093K7ZZ Control Bleeding in Nasal Mucosa and Soft Tissue, Via Natural or Artificial Opening (ICD-10-PCS; principal; 2022-03-01)
DX: R04.0 Epistaxis (principal); E11.9 Type 2 diabetes mellitus without complications; J44.9 Chronic obstructive pulmonary disease, unspecified; Z87.891 Personal history of nicotine dependence; Z88.8 Allergy status to other drugs, medicaments and biological substances; Z88.2 Allergy status to sulfonamides; Z79.899 Other long term (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; Z79.84 Long term (current) use of oral hypoglycemic drugs; Z79.01 Long term (current) use of anticoagulants; Z79.82 Long term (current) use of aspirin
CPT/HCPCS: 30903; 99283-25; A9270

== ENCOUNTER 2022-03-04 20:58 | Emergency (ER) | payer MEDICARE ==
[~2022-03-04] VITALS: Ht 182.9 cm; Wt 110.9 kg
[~2022-03-04 20:58] MED LIST changes: +HYDROCODON-ACE1 EA10 PO
--- OUTSIDE RECORDS SUMMARY | 2022-03-04 21:00 | XMS ---
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 Angel VISIT COUNT (12 MO.) [address] [place] [address] TOTAL 5 NOTE: Visits indicate total known visits. ED/UCC VISIT TRACKING (12 MO.) 03/04/2022 20:59 [facility] Robles [place] TYPE: Emergency COMPLAINT: - NOSE BLEED 03/01/2022 04:26 [facility] Robles [place] TYPE: Emergency COMPLAINT: - NOSE BLEED DIAGNOSES: - intermediate manager (current) use of aspirin - Other custodial (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 - intermediate manager (current) use of oral hypoglycemic drugs - Allergy status to sulfonamides - longterm (current) use of anticoagulants - Epistaxis - Personal history of nicotine dependence - Type 2 diabetes mellitus without complications - Allergy status to other drugs, medicaments and biological substances - Chronic obstructive pulmonary disease, unspecified 02/28/2022 05:47 [facility] [place] TYPE: Emergency COMPLAINT: - BLOODY NOSE 1 HOUR DIAGNOSES: - Presence of cardiac pacemaker - longterm (current) use of anticoagulants - Allergy status to sulfonamides - Type 2 diabetes mellitus without complications - intermediate manager (current) use of oral hypoglycemic drugs - Chronic obstructive pulmonary disease, unspecified - Personal history of nicotine dependence - Other termite technician (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 - Allergy status to other drugs, medicaments and biological substances - Epistaxis 01/02/2022 11:14 [facility] Robles [place] TYPE: Emergency COMPLAINT: - NOSE BLEED DIAGNOSES: - Allergy status to other drugs, medicaments and biological substances - longterm (current) use of anticoagulants - longterm (current) use of oral hypoglycemic drugs - Other custodial (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 - Personal history of nicotine dependence - longterm (current) use of aspirin - Epistaxis - Presence of coronary angioplasty implant and graft 08/30/2021 15:05 [facility] Rob[facility] [place] TYPE: Emergency COMPLAINT: - NOSE BLEED DIAGNOSES: - Type 2 diabetes mellitus without complications - Allergy status to other drugs, medicaments and biological substances - Epistaxis - longterm (current) use of aspirin - longterm (current) use of oral hypoglycemic drugs - Chronic obstructive pulmonary disease, unspecified - Personal history of nicotine dependence - Other termite technician (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 - longterm (current) use of anticoagulants INPATIENT VISIT TRACKING (12 MO.) No inpatient visits to display in this time frame [id number]
== END 2022-03-04 23:12 | disposition home or self-care (01) ==
LOC: ED 20:58
DX: R04.0 Epistaxis (principal); E11.9 Type 2 diabetes mellitus without complications; J44.9 Chronic obstructive pulmonary disease, unspecified; Z88.2 Allergy status to sulfonamides; Z88.8 Allergy status to other drugs, medicaments and biological substances; Z79.84 Long term (current) use of oral hypoglycemic drugs; Z79.899 Other long term (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; Z79.01 Long term (current) use of anticoagulants; Z79.82 Long term (current) use of aspirin
CPT/HCPCS: 30901; 99283-25

== ENCOUNTER 2022-03-05 13:50 | Emergency (ER) | payer MEDICARE ==
[~2022-03-05] VITALS: Ht 182.9 cm; Wt 110.9 kg
--- OUTSIDE RECORDS SUMMARY | 2022-03-05 13:52 | XMS ---
PreManage Notification: DENISE VENTURA Security Pattern Drum Maker Events No recent Security Events currently on file CRITERIA MET - Group Notification - [facility] - 2 Visits in 30 Days CARE PROVIDERS MED TIWARI Family [facility] 01/08/2018-Current PHONE: Unknown SUSAN SALDANA [facility] Current PHONE: [phone] Tonya has no Care Guidelines for this patient. Angel VISIT COUNT (12 MO.) [address] [place] [address] TOTAL 6 NOTE: Visits indicate total known visits. ED/UCC VISIT TRACKING (12 MO.) 03/05/2022 13:50 [facility] Robles [place] TYPE: Emergency COMPLAINT: - NOSE BLEED 03/04/2022 20:59 MOR[facility] Robles [place] TYPE: Emergency COMPLAINT: - NOSE BLEED 03/01/2022 04:26 MOR[facility] Robles [place] TYPE: Emergency COMPLAINT: - NOSE BLEED DIAGNOSES: - Epistaxis - Personal history of nicotine dependence - Type 2 diabetes mellitus without complications - Allergy status to other drugs, medicaments and biological substances - Chronic obstructive pulmonary disease, unspecified - [facility] (current) use of aspirin - Other vermin exterminator (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 - rat exterminator (current) use of oral hypoglycemic drugs - Allergy status to sulfonamides - rat exterminator (current) use of anticoagulants 02/28/2022 05:47 M[facility] Robles [place] TYPE: Emergency COMPLAINT: - BLOODY NOSE 1 HOUR DIAGNOSES: - Chronic obstructive pulmonary disease, unspecified - Personal history of nicotine dependence - Other vermin exterminator (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 - Allergy status to other drugs, medicaments and biological substances - Epistaxis - Presence of cardiac pacemaker - [facility] (current) use of anticoagulants - Allergy status to sulfonamides - Type 2 diabetes mellitus without complications - rat exterminator (current) use of oral hypoglycemic drugs 01/02/2022 11:14 MORIA[facility] Robles [place] TYPE: Emergency COMPLAINT: - NOSE BLEED DIAGNOSES: - Personal history of nicotine dependence - [facility] (current) use of aspirin - Epistaxis - Presence of coronary angioplasty implant and graft - Allergy status to other drugs, medicaments and biological substances - [facility] (current) use of anticoagulants - rat exterminator (current) use of oral hypoglycemic drugs - Other residential (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 08/30/2021 15:05 [facility] Robles [place] TYPE: Emergency COMPLAINT: - NOSE BLEED DIAGNOSES: - Chronic obstructive pulmonary disease, unspecified - Personal history of nicotine dependence - Other vermin exterminator (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 - [facility] (current) use of anticoagulants - Type 2 diabetes mellitus without complications - Allergy status to other drugs, medicaments and biological substances - Epistaxis - rat exterminator (current) use of aspirin - rat exterminator (current) use of oral hypoglycemic drugs INPATIENT VISIT TRACKING (12 MO.) No inpatient visits to display in this time frame [id number]
== END 2022-03-05 20:27 | disposition home or self-care (01) ==
LOC: ED 13:50
DX: R04.0 Epistaxis (principal); E11.9 Type 2 diabetes mellitus without complications; J44.9 Chronic obstructive pulmonary disease, unspecified; Z87.891 Personal history of nicotine dependence; Z88.2 Allergy status to sulfonamides; Z88.8 Allergy status to other drugs, medicaments and biological substances; Z79.899 Other long term (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; Z79.84 Long term (current) use of oral hypoglycemic drugs; Z79.01 Long term (current) use of anticoagulants
CPT/HCPCS: 30901; 99283-25

== ENCOUNTER 2022-03-27 15:41 | Emergency (ER) | payer MEDICARE ==
[~2022-03-27] VITALS: Ht 182.9 cm; Wt 110.9 kg
--- OUTSIDE RECORDS SUMMARY | 2022-03-27 15:44 | XMS ---
PreManage Notification: DENISE VENTURA Security National Investigative Producer Events No recent Security Events currently on file CRITERIA MET - Group Notification - 6 ED Visits in 6 Months - [facility] - 2 Visits in 30 Days CARE PROVIDERS MED TIWARI Family [facility] 01/08/2018-Current PHONE: Unknown SUSAN SALDANA [facility] Current PHONE: [phone] Tonya has no Care Guidelines for this patient. EUrszula VISIT COUNT (12 MO.) [address] [place] [address] TOTAL 7 NOTE: Visits indicate total known visits. ED/UCC VISIT TRACKING (12 MO.) 03/27/2022 15:[address] [facility] [place] TYPE: Emergency COMPLAINT: - NOSE BLEED 03/05/2022 13:50 MORIAH Robles [place] TYPE: Emergency COMPLAINT: - NOSE BLEED DIAGNOSES: - Epistaxis - Personal history of nicotine dependence - Chronic obstructive pulmonary disease, unspecified - Allergy status to sulfonamides - Type 2 diabetes mellitus without complications - snf (current) use of oral hypoglycemic drugs - Allergy status to other drugs, medicaments and biological substances - lobsterman (current) use of anticoagulants - Other jail (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 03/04/2022 20:59 [facility] Robles [place] TYPE: Emergency COMPLAINT: - NOSE BLEED DIAGNOSES: - snf (current) use of anticoagulants - Other jail (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 - Chronic obstructive pulmonary disease, unspecified - Type 2 diabetes mellitus without complications - Allergy status to sulfonamides - lobsterman (current) use of aspirin - Allergy status to other drugs, medicaments and biological substances - lobsterman (current) use of oral hypoglycemic drugs - Epistaxis 03/01/2022 04:26 [facility]IA[facility] Rolbes [place] TYPE: Emergency COMPLAINT: - NOSE BLEED DIAGNOSES: - lobsterman (current) use of anticoagulants - Epistaxis - Personal history of nicotine dependence - Type 2 diabetes mellitus without complications - Allergy status to other drugs, medicaments and biological substances - Chronic obstructive pulmonary disease, unspecified - snf (current) use of aspirin - Other vermin exterminator (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 - lobsterman (current) use of oral hypoglycemic drugs - Allergy status to sulfonamides 02/28/2022 05:47 [facility] Robles [place] TYPE: Emergency COMPLAINT: - BLOODY NOSE 1 HOUR DIAGNOSES: - lobsterman (current) use of oral hypoglycemic drugs - Chronic obstructive pulmonary disease, unspecified - Personal history of nicotine dependence - Other vermin exterminator (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 - Allergy status to other drugs, medicaments and biological substances - Epistaxis - Presence of cardiac pacemaker - snf (current) use of anticoagulants - Allergy status to sulfonamides - Type 2 diabetes mellitus without complications 01/02/2022 11:14 [facility] Robles [place] TYPE: Emergency COMPLAINT: - NOSE BLEED DIAGNOSES: - Other vermin exterminator (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 - Personal history of nicotine dependence - lobsterman (current) use of aspirin - Epistaxis - Presence of coronary angioplasty implant and graft - Allergy status to other drugs, medicaments and biological substances - snf (current) use of anticoagulants - lobsterman (current) use of oral hypoglycemic drugs 08/30/2021 15:05 MORIA[facility] Robles [place] TYPE: Emergency COMPLAINT: - NOSE BLEED DIAGNOSES: - lobsterman (current) use of oral hypoglycemic drugs - Chronic obstructive pulmonary disease, unspecified - Personal history of nicotine dependence - Other vermin exterminator (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 - snf (current) use of anticoagulants - Type 2 diabetes mellitus without complications - Allergy status to other drugs, medicaments and biological substances - Epistaxis - lobsterman (current) use of aspirin INPATIENT VISIT TRACKING (12 MO.) No inpatient visits to display in this time frame [id number]
== END 2022-03-27 19:25 | disposition home or self-care (01) ==
LOC: ED 15:41
PROC: 093K7ZZ Control Bleeding in Nasal Mucosa and Soft Tissue, Via Natural or Artificial Opening (ICD-10-PCS; principal; 2022-03-27)
DX: R04.0 Epistaxis (principal); E11.9 Type 2 diabetes mellitus without complications; Z87.442 Personal history of urinary calculi; Z88.8 Allergy status to other drugs, medicaments and biological substances; Z88.2 Allergy status to sulfonamides; J44.9 Chronic obstructive pulmonary disease, unspecified; Z79.84 Long term (current) use of oral hypoglycemic drugs; Z79.82 Long term (current) use of aspirin; Z79.01 Long term (current) use of anticoagulants; Z79.899 Other long term (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; Z87.891 Personal history of nicotine dependence
CPT/HCPCS: 30901; 99283-25

== ENCOUNTER 2022-04-15 21:05 | Emergency (ER) | payer OTHER, MEDICARE ==
[~2022-04-15] VITALS: Ht 182.9 cm; Wt 109.1 kg
--- OUTSIDE RECORDS SUMMARY | 2022-04-15 21:07 | XMS ---
PreManage Notification: DENISE VENTURA Security Author'S Agent Events No recent Security Events currently on file CRITERIA MET - 6 ED Visits in 6 Months - [facility] - 2 Visits in 30 Days - Group Notification CARE PROVIDERS MED TIWARI [facility] 01/08/2018-Current PHONE: Unknown SUSAN SALDANA [facility] Current PHONE: [phone] Tonya has no Care Guidelines for this patient. EUrszula VISIT COUNT (12 MO.) [address] [place] [address] TOTAL 8 NOTE: Visits indicate total known visits. ED/UCC VISIT TRACKING (12 MO.) 04/15/2022 21:05 [facility]ORIA[facility] Robles [place] TYPE: Emergency COMPLAINT: - FALL/ KNEE PAIN 03/27/2022 15:41 MORIAH Robles [place] TYPE: Emergency COMPLAINT: - NOSE BLEED DIAGNOSES: - Epistaxis - Allergy status to other drugs, medicaments and biological substances - Personal history of nicotine dependence - retirement (current) use of oral hypoglycemic drugs - Allergy status to sulfonamides - Personal history of urinary calculi - Other exterminator helper termite (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 - Chronic obstructive pulmonary disease, unspecified - retirement (current) use of anticoagulants - assistant terminal manager (current) use of aspirin - Type 2 diabetes mellitus without complications 03/05/2022 13:50 MORIAH Robles [place] TYPE: Emergency COMPLAINT: - NOSE BLEED DIAGNOSES: - Personal history of nicotine dependence - Chronic obstructive pulmonary disease, unspecified - Allergy status to sulfonamides - Type 2 diabetes mellitus without complications - retirement (current) use of oral hypoglycemic drugs - Allergy status to other drugs, medicaments and biological substances - retirement (current) use of anticoagulants - Other exterminator helper termite (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 - Epistaxis 03/04/2022 20:59 MORIA[facility] Robles [place] TYPE: Emergency COMPLAINT: - NOSE BLEED DIAGNOSES: - Other exterminator helper termite (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 - Chronic obstructive pulmonary disease, unspecified - Type 2 diabetes mellitus without complications - Allergy status to sulfonamides - assistant terminal manager (current) use of aspirin - Allergy status to other drugs, medicaments and biological substances - assistant terminal manager (current) use of oral hypoglycemic drugs - Epistaxis - assistant terminal manager (current) use of anticoagulants 03/01/2022 04:26 MORIAH Roblse [place] TYPE: Emergency COMPLAINT: - NOSE BLEED DIAGNOSES: - Epistaxis - Personal history of nicotine dependence - Type 2 diabetes mellitus without complications - Allergy status to other drugs, medicaments and biological substances - Chronic obstructive pulmonary disease, unspecified - assistant terminal manager (current) use of aspirin - Other exterminator helper termite (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 - retirement (current) use of oral hypoglycemic drugs - Allergy status to sulfonamides - retirement (current) use of anticoagulants 02/28/2022 05:47 MOR[facility] Robles [place] TYPE: Emergency COMPLAINT: - BLOODY NOSE 1 HOUR DIAGNOSES: - Chronic obstructive pulmonary disease, unspecified - Personal history of nicotine dependence - Other custodial (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 - Allergy status to other drugs, medicaments and biological substances - Epistaxis - Presence of cardiac pacemaker - assistant terminal manager (current) use of anticoagulants - Allergy status to sulfonamides - Type 2 diabetes mellitus without complications - retirement (current) use of oral hypoglycemic drugs 01/02/2022 11:14 MOR[facility] Robles [place] TYPE: Emergency COMPLAINT: - NOSE BLEED DIAGNOSES: - Personal history of nicotine dependence - retirement (current) use of aspirin - Epistaxis - Presence of coronary angioplasty implant and graft - Allergy status to other drugs, medicaments and biological substances - assistant terminal manager (current) use of anticoagulants - assistant terminal manager (current) use of oral hypoglycemic drugs - Other custodial (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 08/30/2021 15:[address] [facility] [place] TYPE: Emergency COMPLAINT: - NOSE BLEED DIAGNOSES: - Chronic obstructive pulmonary disease, unspecified - Personal history of nicotine dependence - Other custodial (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 - assistant terminal manager (current) use of anticoagulants - Type 2 diabetes mellitus without complications - Allergy status to other drugs, medicaments and biological substances - Epistaxis - retirement (current) use of aspirin - assistant terminal manager (current) use of oral hypoglycemic drugs INPATIENT VISIT TRACKING (12 MO.) No inpatient visits to display in this time frame [id number]
[2022-04-15] MEDS ORDERED: CEFDINIR300 MG PO ×2 (21:29→22:02)
[2022-04-15] MEDS ORDERED: NITROFURANTOIN50 MG PO (21:29)
[2022-04-15] MEDS ORDERED: CLOBETASOL PROP15 GM TOP (21:29)
[2022-04-15] MEDS ORDERED: LEVOTHYROXINE150 MCG PO (21:29)
[2022-04-15] MEDS ORDERED: AMOXICILLIN500 MG PO (21:29)
[2022-04-15] MEDS ORDERED: PRAVASTATIN SOD80 MG PO (21:29)
[2022-04-15] MEDS ORDERED: WIXELA 100-501 EACH (21:30)
[2022-04-15] MEDS ORDERED: TAMSULOSIN HCL0.4 MG PO (21:30)
== END 2022-04-15 22:23 | disposition home or self-care (01) ==
LOC: ED 21:05
DX: S81.012A Laceration without foreign body, left knee, initial encounter (principal); E11.9 Type 2 diabetes mellitus without complications; J44.9 Chronic obstructive pulmonary disease, unspecified; Z87.442 Personal history of urinary calculi; Z87.891 Personal history of nicotine dependence; Z88.8 Allergy status to other drugs, medicaments and biological substances; Z79.84 Long term (current) use of oral hypoglycemic drugs; Z79.01 Long term (current) use of anticoagulants; Z79.899 Other long term (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; Z79.82 Long term (current) use of aspirin; W19.XXXA Unspecified fall, initial encounter
CPT/HCPCS: 12002; 73560; 99283-25

== ENCOUNTER 2022-04-22 12:55 | Inpatient (IN) | payer MEDICARE ==
[~2022-04-22] VITALS: Ht 182.9 cm; Wt 105.2 kg
[~2022-04-22 12:55] MED LIST changes: +AMOXICILLIN500 MG PO; +CLOBETASOL PROP15 GM TOP; +LEVOTHYROXINE150 MCG PO; +PRAVASTATIN SOD80 MG PO; +TAMSULOSIN HCL0.4 MG PO; +WIXELA 100-501 EACH
--- OUTSIDE RECORDS SUMMARY | 2022-04-22 13:00 | XMS ---
PreManage Notification: DENISE VENTURA Security Can Reconditioner Events No recent Security Events currently on file CRITERIA MET - [facility] - 2 Visits in 30 Days - 6 ED Visits in 6 Months - Group Notification CARE PROVIDERS MED TIWARI [facility] Medicine 01/08/2018-Current PHONE: Unknown SUSAN SALDANA [facility] Current PHONE: [phone] Tonya has no Care Guidelines for this patient. EUrszula VISIT COUNT (12 MO.) [address] [place] [address] TOTAL 9 NOTE: Visits indicate total known visits. ED/UCC VISIT TRACKING (12 MO.) 04/22/2022 12:57 [facility] [place] TYPE: Emergency COMPLAINT: - SOB, WHEEZING 04/15/2022 21:05 [facility] [place] TYPE: Emergency COMPLAINT: - FALL/ KNEE PAIN DIAGNOSES: - Allergy status to other drugs, medicaments and biological substances - [facility] (current) use of aspirin - [facility] (current) use of oral hypoglycemic drugs - Type 2 diabetes mellitus without complications - Personal history of nicotine dependence - Laceration without foreign body, left knee, initial encounter - [facility] (current) use of anticoagulants - Personal history of urinary calculi - Chronic obstructive pulmonary disease, unspecified - Other correctional guard (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 - Unspecified fall, initial encounter 03/27/2022 15:41 [facility] [place] TYPE: Emergency COMPLAINT: - NOSE BLEED DIAGNOSES: - sales project engineer (current) use of anticoagulants - sales project engineer (current) use of aspirin - Type 2 diabetes mellitus without complications - Epistaxis - Allergy status to other drugs, medicaments and biological substances - Personal history of nicotine dependence - [facility] (current) use of oral hypoglycemic drugs - Allergy status to sulfonamides - Personal history of urinary calculi - Other prison (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 - Chronic obstructive pulmonary disease, unspecified 03/05/2022 13:50 [facility] [place] TYPE: Emergency COMPLAINT: - NOSE BLEED DIAGNOSES: - sales project engineer (current) use of anticoagulants - Other prison (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 - Epistaxis - Personal history of nicotine dependence - Chronic obstructive pulmonary disease, unspecified - Allergy status to sulfonamides - Type 2 diabetes mellitus without complications - sales project engineer (current) use of oral hypoglycemic drugs - Allergy status to other drugs, medicaments and biological substances 03/04/2022 20:59 [facility] [place] TYPE: Emergency COMPLAINT: - NOSE BLEED DIAGNOSES: - MCFP (current) use of oral hypoglycemic drugs - Epistaxis - [facility] (current) use of anticoagulants - Other correctional guard (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 - Chronic obstructive pulmonary disease, unspecified - Type 2 diabetes mellitus without complications - Allergy status to sulfonamides - [facility] (current) use of aspirin - Allergy status to other drugs, medicaments and biological substances 03/01/2022 04:26 [facility] [place] TYPE: Emergency COMPLAINT: - NOSE BLEED DIAGNOSES: - sales project engineer (current) use of oral hypoglycemic drugs - Allergy status to sulfonamides - sales project engineer (current) use of anticoagulants - Epistaxis - Personal history of nicotine dependence - Type 2 diabetes mellitus without complications - Allergy status to other drugs, medicaments and biological substances - Chronic obstructive pulmonary disease, unspecified - [facility] (current) use of aspirin - Other prison (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 02/28/2022 05:47 [facility] [place] TYPE: Emergency COMPLAINT: - BLOODY NOSE 1 HOUR DIAGNOSES: - Allergy status to sulfonamides - Type 2 diabetes mellitus without complications - sales project engineer (current) use of oral hypoglycemic drugs - Chronic obstructive pulmonary disease, unspecified - Personal history of nicotine dependence - Other prison (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 - Allergy status to other drugs, medicaments and biological substances - Epistaxis - Presence of cardiac pacemaker - [facility] (current) use of anticoagulants 01/02/2022 11:14 [facility] [place] TYPE: Emergency COMPLAINT: - NOSE BLEED DIAGNOSES: - sales project engineer (current) use of oral hypoglycemic drugs - Other prison (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 - Personal history of nicotine dependence - sales project engineer (current) use of aspirin - Epistaxis - Presence of coronary angioplasty implant and graft - Allergy status to other drugs, medicaments and biological substances - [facility] (current) use of anticoagulants 08/30/2021 15:05 [facility] [place] TYPE: Emergency COMPLAINT: - NOSE BLEED DIAGNOSES: - Epistaxis - [facility] (current) use of aspirin - sales project engineer (current) use of oral hypoglycemic drugs - Chronic obstructive pulmonary disease, unspecified - Personal history of nicotine dependence - Other correctional guard (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 - [facility] (current) use of anticoagulants - Type 2 diabetes mellitus without complications - Allergy status to other drugs, medicaments and biological substances INPATIENT VISIT TRACKING (12 MO.) No inpatient visits to display in this time frame [email or web address]
[2022-04-22] MEDS ORDERED: OSELTAMIVIR PHO75 MG PO (14:12)
[2022-04-22] MEDS ORDERED: PREDNISONE10 MG (14:12)
--- NOTE | 2022-04-22 19:00 | NUR ---
Patient arrived to the medical floor at this time, a&ox4. Patient pleasant, reports shortness of breath for a couple weeks now. Patient denies chest pain. Oriented patient to room and call light. Bed alarm intact. Call light within reach.
--- NOTE | 2022-04-22 19:10 | NUR ---
RECEIVED REPORT FROM KANNAN. PT SITTING ON EDGE OF BED. NO NEEDS.
--- NOTE | 2022-04-22 21:33 | NUR ---
VS COMPLETE PER RADIO SALES ACCOUNT EXECUTIVE. REQUESTED AND RECEIVED SODA, AND SANDWICH.
--- NOTE | 2022-04-22 22:30 | NUR ---
PICTURES IN CHART OF LEFT BRUISED KNEE WITH SUTURES. STATES HE FELL, UNCLEAR TO DATE HE FELL. BRUISE ON LEFT SHOULDER, SCABS ON LEFT ZAPATA, WELL OUTER PART OF LEFT KNEE. RIGHT FOOT 4,5 TOE WITH SMALL SCABS.
--- NOTE | 2022-04-23 00:10 | NUR ---
PT TUCKED INTO BED
--- NOTE | 2022-04-23 02:29 | NUR ---
PT USING CPAP, COOPERATIVE WITH ASSESSMENT, MOIST NON PRODUCTIVE COUGH AT THIST ARIAN. TURNS AND REPOSITIONS SELF IN BED, CPOX AT BEDSIDE. CALL LIGHT AT HANDS REACH, CONTINOUS ON DROPLET PRECAUTIONS
--- NOTE | 2022-04-23 06:05 | NUR ---
Has slept off and on, uses urinal and inc of urine. on room air, uses CPAP at HS, lungs dim at bases, moist non prod cough present at times, currently awake, sitting edge of bed drinking coffee, no c/o pain at this time. pleasnt and coop. on droplet isolation
--- NOTE | 2022-04-23 07:05 | NUR ---
BEDSIDE HANDOFF REPORT RECEIVED FROM FORENSIC MANAGER RN. PT RESTING IN BED.
--- NOTE | 2022-04-23 07:36 | NUR ---
PT ON EDGE OF BED TALKING TO FAMILY MEMBER ON THE PHONE. BS TAKEN. NO FURTHER NEEDS. CALL LIGHT WITHIN REACH.
--- NOTE | 2022-04-23 08:45 | NUR ---
PT IN BATHROOM AND THEN TO CHAIR, SBA WITH CANE. PT ON ROOM AIR, LUNG SOUNDS WITH EXPIRATORY WHEEZE AND CRACKLES IN BASES, PT REPORT OF SOB WITH EXERTION. PT DENIES NAUSEA, BOWEL TONES ACTIVE, AWAITING BREAKFAST.
[2022-04-23] MEDS ORDERED: WIXELA 100-501 EACH INH (10:55)
[2022-04-23] MEDS ORDERED: TAMSULOSIN HCL0.4 MG PO (10:56)
--- NOTE | 2022-04-23 12:14 | NUR ---
MED REC COMPLETE
--- NOTE | 2022-04-23 12:50 | NUR ---
PT SITTING IN CHAIR, EATING LUNCH. GIVNE 3 UNITS SS HUMALOG FOR BLOOD GLUCOSE 188. I VLASIX GIVEN. PT DENIES OTHER NEEDS AT THIS TIME.
--- NOTE | 2022-04-23 13:58 | EKG ---
[facility] [address] [place], [place] [address] Signed Ventricular-paced rhythm with intrinsic complexes Abnormal ECG When compared with ECG of 01-AUG-2019 12:34, No significant change was found Confirmed by DESTINI CHERY MD ([id number]) on 04/23/2022 1:58:13 PM Electronically Signed By: DESTINI CHERY MD 04/23/22 1358 PATIENT NAME: AUDREYDENISEKARTHIK LAMB Electrocardiogram DATE OF : 37 PHYSICIAN: DESTINI CHERY MD REPORT #: [id number] REPORT IS CONFIDENTIAL AND NOT TO BE RELEASED WITHOUT AUTHORIZATION
--- NOTE | 2022-04-23 16:30 | NUR ---
PT CALLED TO REPORT BLEEDING FROM LEFT KNEE, SMALL AMOUNT OF BLEEDING FROM DISTAL PORTION OF LACERATION. SITE CLEANSED AND GAUZE APPLIED. PT CONTINUES TO BE ON ROOM AIR, LUNG SOUNDS WITH EXPIRATORY WHEEZE AND CRACKLES ON RIGHT SIDE. PT DENIES OTHER NEEDS AT THIS TIME.
--- NOTE | 2022-04-23 17:52 | NUR ---
PT ON ROOM AIR, SOB WITH EXERTION, EXPIRATORY WHEEZE AND CRACKLES. PT INDEPENDENT IN ROOM WITH CANE. PT TOLERATING DIET. IV LASIX X2, URINE OUTPUT QS. PT WITH SMALL AMOUNT OF BLEEDING FROM LEFT KNEE LACERATION, COVERED WITH GAUZE.
--- NOTE | 2022-04-23 20:33 | NUR ---
Pt sitting edge of bed, moist non productive cough present, lungs with exp crackles, wheezing R lower lobe, slight SOB with exertion noted on return from br. dribbles, uses pad, uses urinal, draining light dark colored urine. SL LAC patent. L knee sutures in place, gauze dressing with old shadowing. denies c/o pain. CBG 130, requested and got a sugar free snack. pleasant and coop with assessments, on room air. uses CPAP at HS. Using IS and acapella, as per orders, toleratiang liquids well. on Droplet respiratory Isolation precautions. visiting with via phone and watchint tv. call light at hands reach. encouraged to elevate legs,
--- NOTE | 2022-04-23 22:02 | NUR ---
pt came out of room, no mask, walking hallway using cane, no sob, on return to room, lungs auscultated dim. mild crackles at baes, no wheezing. cooperative. stated not ready for CPAP yet, watching tv
--- NOTE | 2022-04-24 04:28 | NUR ---
PT ON ROOM AIR WHEN AWAKE, AT THIS TIME, HAS USES CPAP SINCE MIDNIGHT. LUNGS WITH WHEEZING AND CRACKLES. SOB WITH EXERTION AT BEGINING OF SHIFT. ON DROPLET ISOLATION PRECAUTIONS. CAME OUT OF ROOM AND WALKED TO UPPER NURSING STATION W/O A AMSK, REDIRECABLE, NO SOB NOTED AND MUCH IMPROVED LUNG SOUND AT THAT TIME. SATS WERE 93% ON RETURN TO ROOM. SL PATENT. HAS PACEMAKER, DENIES CP L KNEE WOUND/INCISION AREA HEALING, BRUISED ABOVE KNEE AND TENDER SCABBED OVER AREAS LE, HEALING. ENCOURAGED TO ELEVATE LEDS, EDEMA TO LE. PLEASANT AND COOPERATIVE, FORGETFUL, USES URINAL, VOIDING QS, NO BM THIS SHIFT. TOLERATING LARGE AMOUNTS OF FLUIDS USES CALL LIGHT. ON DROPLET ISOLATION PRECAUTIONS
--- NOTE | 2022-04-24 07:00 | NUR ---
HANDOFF REPORT RECEIVED FROM CPHT RN.
--- NOTE | 2022-04-24 09:40 | NUR ---
AT BEDSIDE FOR PT EVALUATION. PT ON ROOM AIR, LUNG SOUNDS WITH FINE CRACKLES IN BASES, PT CONTINUES TO REPORT FEELING SOB WITH EXERTION, DISCUSSED WALKING IN [place] TODAY. BOWEL TONES ACTIVE, GOOD APPETITE, GIVEN 1 UNIT SS INSULIN FOR BLOOD GLUCOSE 156. PT WITH TRACE EDEMA TO BLE, CMS INTACT. IV LASIX GIVEN, IV SALINE LOCKED. PT DENIES OTHER NEEDS AT THIS TIME.
--- NOTE | 2022-04-24 11:19 | NUR ---
BASIN CLEANER CONCERNED ABOUT PT CONDITION. THIS RN ASSESSED PT, VSS. LUNG SOUNDS WITH EXPIRATORY WHEEZE AND RHONCHI, PT REPORT OF FEELING SOB. PT APPEARS FATIGUED, NEURO ASSESSMENT WNL. DR. PARRA NOTIFIED OF CHANGE IN PT CONDIITON, NO NEW ORDERS. WILL CONTINUE TO MONITOR.
--- NOTE | 2022-04-24 12:07 | NUR ---
PT CALLED, CONCERNED WITH HOW PT SOUNDED OVER THE PHONE. THIS RN REASSESSED PT, NO CHANGE FROM PREVIOUS ASSESSMENT, PT CONTINUES TO APPEAR FATIGUED. SPOKE WITH PT AND DISCUSSED WEARING BIPAP WHILE TAKING A NAP, PT AGREEABLE. RN BONE MARROW TRANSPLANT CALLED FOR MASK ADJUSTMENT. UPDATED. DR. PARRA NOTIFIED AND WILL COME TP ASSESS PT.
--- NOTE | 2022-04-24 13:56 | NUR ---
PT SON MEGHAN REQUESTING RETURN CALL TO UPDATE ON PT STATUS. DISCUSSED IN LENGTH, PT CONDITION THIS AM, CHANGES, XRAY AND TREATMENT PLAN. ANSWERED ALL QUESTIONS.
--- NOTE | 2022-04-24 14:20 | NUR ---
PT REQUESTING TO EAT LUNCH. PT APPEARS MORE ALERT AND ENERGETIC. BIPAP REMOVED, LUNCH HEATED AND PROVIDED. PT DENIES OTHER NEEDS AT THIS TIME.
--- NOTE | 2022-04-24 17:15 | NUR ---
PT SITTING IN CHAIR. PT CONTINUES TO BE ALERT, LESS SOB THAN EARLIER. PT LUNG SOUNDS WITH FINE CRACKLES IN BASES. PT GIVEN 3 UNITS SS HUMALOG. PT DENIES OTHER NEEDS AT THIS TIME.
--- NOTE | 2022-04-24 21:32 | NUR ---
PT STANDING EDGE OF BED, LEGS DEPENDENT, 1+ EDEMA. BRUISED, EDEMATOUS L KNEE SUTURES IN PLACE, CALLED EARLIER AND WANTED TO KNOW IF WE COULD REMOVE THE SUTURES THAT SHOULD HAVE BEEN REMOVED TODAY, WILL ASK OUT CLOTH HANDLER. AREA BRUISED, SCABBED OVER AREAS LOW LEG. SL LAC PATENT, VERY TENDER WHEN TRYING TO CHANGE DRESSING, NOT DONE. NOT C/O WHEN FLUSHING, ONLY WHEN TRYING TO REMOVE TAPE/DRESSING. PT ON ROOM AIR, HAS OWN CPAP MACHINE IN ROOM, LUNGS CLEAR UPPER LUNGS, CRACKLES BILAT AND RHOCNCHI L BASED. MOIST NON PRODUCTIVE COUGH PRESENT. PT WAS ON ROOM AIR, WALKING IN ROOM, TOLERATING WELL. USES URINAL. NO SOB NOTED WITH EXERTION. PT JUST PLACED OWN CPAP MASK ON. AWARE TO ELEVATED LE. PLEASANT AND COOP. ON DROPLET ISOLATION PRECAUTIONS.L CBG 112, NO COVERAGE NEEDED. TYLENOL GIVEN PER L KNEE PAIN. FLUIDS AND CALL LIGHT AT HANDS REACH
--- NOTE | 2022-04-25 01:45 | NUR ---
CHECKED PATIENT. SITTING AT THE EDGE OF THE BED. URINAL EMPTIED. COFFEE PROVIDED PER PATIENT'S REQUEST. STATED "WILL EASILY GO BACK TO SLEEP AFTER COFFEE". CHECKED CALL LIGHT PLUGGED IN AND IN PATIENT'S REACH.
--- NOTE | 2022-04-25 01:54 | NUR ---
AWAKE, SITTING EDGE OF BED, ROOM AIR, COOP WITH ASSESSMENT, LUNGS DIM AT BASES, NO DISTRESS NOTED AT THIST ARIAN, USING URINAL, COFFEEE GIVEN ON REQUEST. CONTINUES ON ISOLATION PRECAUTIONS
--- NOTE | 2022-04-25 05:31 | NUR ---
Pt is on room air when awake, used CPAP at HS for a couple hours, awake off and on, currently sitting edge of bed, room air, lungs had crackles and im at begining of shift. dim t/o at this time. stated "I feel better." drinking coffee, no cough at this time. Much more gait steady no sob on return from br. uses urinal, plus incontinent. edema to LE, ecnouraged to elevated yolanda, took socks off, L AC SL patent. L knee area sutures in place. bruised area, tender. called last night via phone and requested if the Frameman could remove the sutures as they were placed when he fell and came to the ER and they were due to be removed yesterday", will notify incoming RN and Frameman. Pt denies c/o pain at this time, Continues on Droplet isolation precautions. uses Ebyline.
--- NOTE | 2022-04-25 07:30 | NUR ---
THIS RN RECEIVED SHIFT REPORT FROM GINGER GUNTER. PATIENT RESTING QUIETLY IN BED, EYES CLOSED, RESPIRATIONS ARE REGULAR AND EVEN, AND CALL LIGHT IS IN REACH. PATIENT HAS NO OTHER CARE NEEDS AT THIS TIME.
--- NOTE | 2022-04-25 08:45 | NUR ---
THIS RN IN TO SEE PATIENT WITH AND RT IS GIVING A NEB TREATMENT IN THE ROOM WELL. DC'ING PATIENT HOME TODAY AND PATIENT IS OK WITH THIS PLAN. AM ASSESSMENT COMPLETE. VERBAL ORDER GIVEN TO THIS RN TO REMOVE STITCHES FROM LEFT KNEE, SINCE PATIENT MISSED HIS APPOINTMENT TO HAVE THE REMOVED TODAY. THIS RN REMOVED WHAT APPEARED TO BE 13 STITCHES, AROUND THE SCABS STILL PRESENT THEN WRAPPED CLEANED BEFORE AND AFTER WITH CLORHEXADINE, THEN WRAPPED WITH GAUZE AND COBAN. PATIENT TOOK HIS AM MEDS AND HAS NO OTHER CARE NEEDS AT THIS TIME. CALL LIGHT IN REACH AND PATIENT EATING BREAKFAST.
--- NOTE | 2022-04-25 10:45 | NUR ---
PATIENT IV PULLED IN TACT AND VS HAVE BEEN STABLE. PATIENT DRESSED AND ALL BELONGINGS SENT WITH PATIENT TO HIS CAB CARE RIDE. PATIENT VERBALIZED UNDERSTANDING TO ALL DC, HOME CARE, AND F/U INSTRUCTIONS. TAKEN TO HIS HOME BY CAB.
--- NOTE | 2022-04-26 15:44 | NUR ---
Heart Failure Follow Up Call- Spoke at length with Serge Gasca discharged yesterday. He is feeling better although still has a mild cough. Does not add salt to food, advised to avoid large quantities of processed foods with higher sodium content. His weight is down 2 pounds today to 230lb, he does weigh daily. He reports weights and vitals to [facility] RN Penelope Copeland. He and his have 4x day pill boxes that they sit together and fill weekly. He has no concerns about discharged medications ; states they did a really good job explaining it with checklist. His follow up appointment is with KATARINA 0930 on May 03. 27 minutes telephone time spent with patient.
--- NOTE | 2022-04-27 15:28 | NUR ---
SPOKE WITH PATIENT BY PHONE FOR POST DISCHARGE CALL BACK. PATIENT STATES HIS BREATHING IS OK. HE STATES HE IS CURRENTLY SITTING IN THE PARKING LOT AT DR CABRERA OFFICE. HE HAD SOME DRAINAGE FROM KNEE SITE AND HIS PCP COULDN'T SEE HIM TODAY, URGENT CARE WAS FULL, SO HE CALLED THEM AND TREE BOLTON HAD HIM COME UP AND SHE "FIXED ME RIGHT UP". PATIENT STATES HE IS WEIGHING HIMSELF. 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 HAS NOT GAINED ANY MORE WEIGHT FROM DISCHARGE. WE DISCUSSED WATCHING SALT INTAKE, FLUID INTAKE. PATIENT HAS ALL HIS MEDS. HE AND DO THEIR MEDS ONCE A WEEK WITH PILL BOX. HE STATES HE BROUGHT HOME THE HANDOUT OF THE SIDE EFFECTS FROM HIS ROOM HERE, THOUGHT THAT WAS A "GREAT TOOL". STATES HE DOESN'T HAVE ANY NEW MEDS FROM DISCHARGE. PATIENT STATES HIS EXPERINCE HERE WAS WONDERFUL. "THE STAFF TREATED ME LIKE A ARNULFO". BUT HE STATES THE "FOOD WAS SLOP". STATES WHEN HE COMPARES IT TO TWO YEARS AGO HE JUST COULDN'T BELIEVE HOW BAD IT WAS. STATES NOT ONE MEAL WAS HOT. NO FLAVOR. HE TOLD ME TO QUOTE HIM TO ADMINISTRATION "THIS IS A VERY POOR BUSINESS PLAN". HE STATES "IT IS OBVIOUS IT WAS A BOTTOM LINE DECISION" AND STATES HE "LITTERALLY WANTED TO THROW UP" IT WAS SO UNAPPEALING AND NOT EDIBLE. BUT THEN WANTED THEM TO KNOW, THE STAFF DID EVERYTHING THEY COULD TO MAKE UP FOR IT. "THEY WERE GREAT!". PATIENT KNOWS HIS F/U APPT AND HAS TRANSPORTATION. NO OTHER CONCERNS AT THIS TIME.
== END 2022-04-25 10:45 | disposition home or self-care (01) | DRG 193 ==
LOC: ED 12:55 → MS 18:01
PROVIDERS: ADMIT Internal Medicine; ATTEND Family Medicine
PROC: 5A09357 Assistance with Respiratory Ventilation, Less than 24 Consecutive Hours, Continuous Positive Airway Pressure (ICD-10-PCS; principal; 2022-04-22)
DX: J10.1 Influenza due to other identified influenza virus with other respiratory manifestations (principal); I50.23 Acute on chronic systolic (congestive) heart failure; I11.0 Hypertensive heart disease with heart failure; Z20.822 Contact with and (suspected) exposure to COVID-19; J44.9 Chronic obstructive pulmonary disease, unspecified; G47.33 Obstructive sleep apnea (adult) (pediatric); N18.32 Chronic kidney disease, stage 3b; N40.0 Benign prostatic hyperplasia without lower urinary tract symptoms; E11.22 Type 2 diabetes mellitus with diabetic chronic kidney disease; E79.0 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 of inflammatory arthritis and tophaceous disease; Z87.891 Personal history of nicotine dependence; Z95.0 Presence of cardiac pacemaker; Z88.2 Allergy status to sulfonamides; Z88.8 Allergy status to other drugs, medicaments and biological substances; Z79.82 Long term (current) use of aspirin; Z79.899 Other long term (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
CPT/HCPCS: 36415; 71045; 80048; 80053; 83036; 83735; 83880; 84484; 85025; 85610; 87502; 93005; 93010; 94640; 94660; 94667; 94668; 94760; 94762; A9270; C9803; J1815; J1940; U0003

== ENCOUNTER 2022-05-15 03:15 | Emergency (ER) | payer MEDICARE ==
[~2022-05-15] VITALS: Ht 182.9 cm; Wt 105.0 kg
[~2022-05-15 03:15] MED LIST changes: +OSELTAMIVIR PHO75 MG PO; +PREDNISONE10 MG; +WIXELA 100-501 EACH INH
--- OUTSIDE RECORDS SUMMARY | 2022-05-15 03:18 | XMS ---
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 EUrszula VISIT COUNT (12 MO.) [address] [place] [address] TOTAL 10 NOTE: Visits indicate total known visits. ED/UCC VISIT TRACKING (12 MO.) 05/15/2022 03:16 [facility] [place] TYPE: Emergency COMPLAINT: - NOSE BLEED 04/22/2022 12:57 [facility] [place] TYPE: Emergency COMPLAINT: - SOB, WHEEZING 04/15/2022 21:05 [facility] [place] TYPE: Emergency COMPLAINT: - FALL/ KNEE PAIN DIAGNOSES: - Other skilled nursing (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 - Unspecified fall, initial encounter - Allergy status to other drugs, medicaments and biological substances - correction (current) use of aspirin - correction (current) use of oral hypoglycemic drugs - Type 2 diabetes mellitus without complications - Personal history of nicotine dependence - Laceration without foreign body, left knee, initial encounter - correction (current) use of anticoagulants - Personal history of urinary calculi - Chronic obstructive pulmonary disease, unspecified 03/27/2022 15:41 [facility] [place] TYPE: Emergency COMPLAINT: - NOSE BLEED DIAGNOSES: - Other skilled nursing (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 - Chronic obstructive pulmonary disease, unspecified - correction (current) use of anticoagulants - correction (current) use of aspirin - Type 2 diabetes mellitus without complications - Epistaxis - Allergy status to other drugs, medicaments and biological substances - Personal history of nicotine dependence - ocean transportation intermediary (current) use of oral hypoglycemic drugs - Allergy status to sulfonamides - Personal history of urinary calculi 03/05/2022 13:50 [facility] TYPE: Emergency COMPLAINT: - NOSE BLEED DIAGNOSES: - Allergy status to other drugs, medicaments and biological substances - correction (current) use of anticoagulants - Other skilled nursing (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 - Epistaxis - Personal history of nicotine dependence - Chronic obstructive pulmonary disease, unspecified - Allergy status to sulfonamides - Type 2 diabetes mellitus without complications - ocean transportation intermediary (current) use of oral hypoglycemic drugs 03/04/2022 20:59 [facility] TYPE: Emergency COMPLAINT: - NOSE BLEED DIAGNOSES: - Allergy status to other drugs, medicaments and biological substances - correction (current) use of oral hypoglycemic drugs - Epistaxis - correction (current) use of anticoagulants - Other skilled nursing (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 - Chronic obstructive pulmonary disease, unspecified - Type 2 diabetes mellitus without complications - Allergy status to sulfonamides - ocean transportation intermediary (current) use of aspirin 03/01/2022 04:26 [facility] [place] TYPE: Emergency COMPLAINT: - NOSE BLEED DIAGNOSES: - Other longwall machine operator helper (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 - ocean transportation intermediary (current) use of oral hypoglycemic drugs - Allergy status to sulfonamides - ocean transportation intermediary (current) use of anticoagulants - Epistaxis - Personal history of nicotine dependence - Type 2 diabetes mellitus without complications - Allergy status to other drugs, medicaments and biological substances - Chronic obstructive pulmonary disease, unspecified - ocean transportation intermediary (current) use of aspirin 02/28/2022 05:47 [facility] TYPE: Emergency COMPLAINT: - BLOODY NOSE 1 HOUR DIAGNOSES: - correction (current) use of anticoagulants - Allergy status to sulfonamides - Type 2 diabetes mellitus without complications - correction (current) use of oral hypoglycemic drugs - Chronic obstructive pulmonary disease, unspecified - Personal history of nicotine dependence - Other longwall machine operator helper (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 - Allergy status to other drugs, medicaments and biological substances - Epistaxis - Presence of cardiac pacemaker 01/02/2022 11:14 [facility] TYPE: Emergency COMPLAINT: - NOSE BLEED DIAGNOSES: - ocean transportation intermediary (current) use of anticoagulants - ocean transportation intermediary (current) use of oral hypoglycemic drugs - Other longwall machine operator helper (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 - Personal history of nicotine dependence - ocean transportation intermediary (current) use of aspirin - Epistaxis - Presence of coronary angioplasty implant and graft - Allergy status to other drugs, medicaments and biological substances 08/30/2021 15:05 [facility] TYPE: Emergency COMPLAINT: - NOSE BLEED DIAGNOSES: - Allergy status to other drugs, medicaments and biological substances - Epistaxis - ocean transportation intermediary (current) use of aspirin - ocean transportation intermediary (current) use of oral hypoglycemic drugs - Chronic obstructive pulmonary disease, unspecified - Personal history of nicotine dependence - Other skilled nursing (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 - ocean transportation intermediary (current) use of anticoagulants - Type 2 diabetes mellitus without complications INPATIENT VISIT TRACKING (12 MO.) 04/22/2022 18:01 [facility] [place] TYPE: Medical Surgical COMPLAINT: - ACUTE DECOMPENSATED SYSTOLIC HEART FAILURE DIAGNOSES: - Allergy status to sulfonamides - Chronic obstructive pulmonary disease, unspecified - Allergy status to other drugs, medicaments and biological substances - Type 2 diabetes mellitus with diabetic chronic kidney disease - Contact with and (suspected) exposure to COVID-19 - correction (current) use of aspirin - Chronic kidney disease, stage 3b - Other skilled nursing (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 - Other skilled nursing (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 - Contact with and (suspected) exposure to COVID-19 - Acute on chronic systolic (congestive) heart failure - Influenza due to other identified influenza virus with other respiratory manifestations - ocean transportation intermediary (current) use of aspirin - Hypertensive heart disease with heart failure - Type 2 diabetes mellitus with diabetic chronic kidney disease - Personal history of nicotine dependence - Influenza due to other identified influenza virus with other respiratory manifestations - Obstructive sleep apnea (adult) (pediatric) - Presence of cardiac pacemaker - Obstructive sleep apnea (adult) (pediatric) - 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 of inflammatory arthritis and tophaceous disease - 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 of inflammatory arthritis and tophaceous disease - Personal history of nicotine dependence - Allergy status to sulfonamides - Chronic obstructive pulmonary disease, unspecified - Benign prostatic hyperplasia without lower urinary tract symptoms - Chronic kidney disease, stage 3b - Presence of cardiac pacemaker - Allergy status to other drugs, medicaments and biological substances - Benign prostatic hyperplasia without lower urinary tract symptoms [email or web address]
[2022-05-16] MEDS ORDERED: PREDNISONE10 MG PO (12:46)
[2022-05-16] MEDS ORDERED: LEVOFLOXACIN500 MG PO (12:47)
== END 2022-05-15 07:06 | disposition home or self-care (01) ==
LOC: ED 03:15
PROC: 093K7ZZ Control Bleeding in Nasal Mucosa and Soft Tissue, Via Natural or Artificial Opening (ICD-10-PCS; principal; 2022-05-15)
DX: R04.0 Epistaxis (principal); R79.1 Abnormal coagulation profile; E11.9 Type 2 diabetes mellitus without complications; J44.9 Chronic obstructive pulmonary disease, unspecified; Z79.01 Long term (current) use of anticoagulants; Z95.0 Presence of cardiac pacemaker; Z87.442 Personal history of urinary calculi; Z87.891 Personal history of nicotine dependence; Z88.8 Allergy status to other drugs, medicaments and biological substances; Z88.2 Allergy status to sulfonamides; Z79.899 Other long term (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; Z79.84 Long term (current) use of oral hypoglycemic drugs; Z79.82 Long term (current) use of aspirin
CPT/HCPCS: 30901; 36415; 85025; 85610; 99283-25

== ENCOUNTER 2022-05-15 17:01 | Inpatient (IN) | payer MEDICARE ==
[~2022-05-15] VITALS: Ht 182.9 cm; Wt 104.9 kg
--- OUTSIDE RECORDS SUMMARY | 2022-05-15 17:04 | XMS ---
PreManage Notification: DENISE VENTURA Security Pharmaceutical Service Representative Events No recent Security Events currently on file CRITERIA MET - 6 ED Visits in 6 Months - Group Notification - - 2 Visits in 30 Days CARE PROVIDERS MED TIWARI Family [facility] 01/08/2018-Current PHONE: Unknown SUSAN SALDANA [facility] Current PHONE: [phone] Tonya has no Care Guidelines for this patient. EUrszula VISIT COUNT (12 MO.) [address] [place] [address] TOTAL 11 NOTE: Visits indicate total known visits. ED/UCC VISIT TRACKING (12 MO.) 05/15/2022 17:02 [facility] [place] TYPE: Emergency COMPLAINT: - SHORTNESS OF BREATH 05/15/2022 03:16 [facility] [place] TYPE: Emergency COMPLAINT: - NOSE BLEED 04/22/2022 12:57 [facility] [place] TYPE: Emergency COMPLAINT: - SOB, WHEEZING 04/15/2022 21:05 [facility] TYPE: Emergency COMPLAINT: - FALL/ KNEE PAIN DIAGNOSES: - Other group home (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 - Unspecified fall, initial encounter - Allergy status to other drugs, medicaments and biological substances - marine oil terminal superintendent (current) use of aspirin - marine oil terminal superintendent (current) use of oral hypoglycemic drugs - Type 2 diabetes mellitus without complications - Personal history of nicotine dependence - Laceration without foreign body, left knee, initial encounter - marine oil terminal superintendent (current) use of anticoagulants - Personal history of urinary calculi - Chronic obstructive pulmonary disease, unspecified 03/27/2022 15:41 [facility] TYPE: Emergency COMPLAINT: - NOSE BLEED DIAGNOSES: - Other group home (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 - Chronic obstructive pulmonary disease, unspecified - assisted (current) use of anticoagulants - marine oil terminal superintendent (current) use of aspirin - Type 2 diabetes mellitus without complications - Epistaxis - Allergy status to other drugs, medicaments and biological substances - Personal history of nicotine dependence - assisted (current) use of oral hypoglycemic drugs - Allergy status to sulfonamides - Personal history of urinary calculi 03/05/2022 13:50 [facility] [place] TYPE: Emergency COMPLAINT: - NOSE BLEED DIAGNOSES: - Allergy status to other drugs, medicaments and biological substances - assisted (current) use of anticoagulants - Other group home (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 - Epistaxis - Personal history of nicotine dependence - Chronic obstructive pulmonary disease, unspecified - Allergy status to sulfonamides - Type 2 diabetes mellitus without complications - marine oil terminal superintendent (current) use of oral hypoglycemic drugs 03/04/2022 20:59 [facility] [place] TYPE: Emergency COMPLAINT: - NOSE BLEED DIAGNOSES: - Allergy status to other drugs, medicaments and biological substances - assisted (current) use of oral hypoglycemic drugs - Epistaxis - marine oil terminal superintendent (current) use of anticoagulants - Other group home (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 - Chronic obstructive pulmonary disease, unspecified - Type 2 diabetes mellitus without complications - Allergy status to sulfonamides - marine oil terminal superintendent (current) use of aspirin 03/01/2022 04:26 [facility] [place] TYPE: Emergency COMPLAINT: - NOSE BLEED DIAGNOSES: - Other marine oil terminal superintendent (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 - assisted (current) use of oral hypoglycemic drugs - Allergy status to sulfonamides - marine oil terminal superintendent (current) use of anticoagulants - Epistaxis - Personal history of nicotine dependence - Type 2 diabetes mellitus without complications - Allergy status to other drugs, medicaments and biological substances - Chronic obstructive pulmonary disease, unspecified - assisted (current) use of aspirin 02/28/2022 05:47 [facility] [place] TYPE: Emergency COMPLAINT: - BLOODY NOSE 1 HOUR DIAGNOSES: - marine oil terminal superintendent (current) use of anticoagulants - Allergy status to sulfonamides - Type 2 diabetes mellitus without complications - assisted (current) use of oral hypoglycemic drugs - Chronic obstructive pulmonary disease, unspecified - Personal history of nicotine dependence - Other group home (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 - Allergy status to other drugs, medicaments and biological substances - Epistaxis - Presence of cardiac pacemaker 01/02/2022 11:14 [facility] [place] TYPE: Emergency COMPLAINT: - NOSE BLEED DIAGNOSES: - assisted (current) use of anticoagulants - assisted (current) use of oral hypoglycemic drugs - Other marine oil terminal superintendent (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 - Personal history of nicotine dependence - assisted (current) use of aspirin - Epistaxis - Presence of coronary angioplasty implant and graft - Allergy status to other drugs, medicaments and biological substances 08/30/2021 15:05 [facility] [place] TYPE: Emergency COMPLAINT: - NOSE BLEED DIAGNOSES: - Allergy status to other drugs, medicaments and biological substances - Epistaxis - assisted (current) use of aspirin - assisted (current) use of oral hypoglycemic drugs - Chronic obstructive pulmonary disease, unspecified - Personal history of nicotine dependence - Other marine oil terminal superintendent (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 - marine oil terminal superintendent (current) use of anticoagulants - Type 2 [...] with and (suspected) exposure to COVID-19 - assisted (current) use of aspirin - Chronic kidney disease, stage 3b - Other marine oil terminal superintendent (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 - Other marine oil terminal superintendent (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 - Contact with and (suspected) exposure to COVID-19 - Acute on chronic systolic (congestive) heart failure - Influenza due to other identified influenza virus with other respiratory manifestations - marine oil terminal superintendent (current) use of aspirin - Hypertensive heart [...] prostatic hyperplasia without lower urinary tract symptoms [email or web address]
[2022-05-16] MEDS ORDERED: PREDNISONE10 MG PO (12:46)
[2022-05-16] MEDS ORDERED: LEVOFLOXACIN500 MG PO (12:47)
[2022-05-20] MEDS ORDERED: DOXYCYCLINE HY100 MG PO (13:24)
[2022-05-20] MEDS ORDERED: CARVEDILOL12.5 MG PO (13:25)
[2022-05-20] MEDS ORDERED: BENZONATATE100 MG PO (13:25)
[2022-05-20] MEDS ORDERED: PREDNISONE20 MG PO (13:30)
== END 2022-05-20 15:40 | disposition home or self-care (01) | DRG 193 ==
LOC: ED 17:01 → MS 20:07 → CCU 20:07 → MS 20:07 → CCU 05-17 15:30 → MS 05-19 03:35
PROVIDERS: ADMIT Internal Medicine; ATTEND Internal Medicine
PROC: 5A09457 Assistance with Respiratory Ventilation, 24-96 Consecutive Hours, Continuous Positive Airway Pressure (ICD-10-PCS; principal; 2022-05-15)
DX: J12.1 Respiratory syncytial virus pneumonia (principal); I50.23 Acute on chronic systolic (congestive) heart failure; J96.21 Acute and chronic respiratory failure with hypoxia; J96.22 Acute and chronic respiratory failure with hypercapnia; J44.1 Chronic obstructive pulmonary disease with (acute) exacerbation; J44.0 Chronic obstructive pulmonary disease with (acute) lower respiratory infection; N17.9 Acute kidney failure, unspecified; D68.32 Hemorrhagic disorder due to extrinsic circulating anticoagulants; Z20.822 Contact with and (suspected) exposure to COVID-19; N18.32 Chronic kidney disease, stage 3b; E11.22 Type 2 diabetes mellitus with diabetic chronic kidney disease; E79.0 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 of inflammatory arthritis and tophaceous disease; R04.0 Epistaxis; G47.33 Obstructive sleep apnea (adult) (pediatric); N40.0 Benign prostatic hyperplasia without lower urinary tract symptoms; Z96.641 Presence of right artificial hip joint; T45.515A Adverse effect of anticoagulants, initial encounter; Z87.891 Personal history of nicotine dependence; Z87.442 Personal history of urinary calculi; Z95.4 Presence of other heart-valve replacement; Z95.0 Presence of cardiac pacemaker; Z88.2 Allergy status to sulfonamides; Z88.8 Allergy status to other drugs, medicaments and biological substances; Z79.01 Long term (current) use of anticoagulants; Z79.82 Long term (current) use of aspirin; Z79.84 Long term (current) use of oral hypoglycemic drugs; Z79.899 Other long term (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
CPT/HCPCS: 36415; 36600; 71045; 80048; 80053; 82803; 83735; 83880; 85025; 85610; 87502; 94640; 94644; 94660; 94760; 94761; 94762; 96374; 99285-25; A9270; C9113; C9803; J1650; J1815; J1940; J2270; J2930; J3490; J7030; J7042; U0003

== ENCOUNTER 2022-06-26 23:27 | Emergency (ER) | payer MEDICARE ==
[~2022-06-26] VITALS: Ht 182.9 cm; Wt 104.5 kg
[~2022-06-26 23:27] MED LIST changes: +BENZONATATE100 MG PO; +DOXYCYCLINE MO100 MG PO; +PREDNISONE10 MG PO
--- OUTSIDE RECORDS SUMMARY | 2022-06-26 23:30 | XMS ---
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 Angel VISIT COUNT (12 MO.) 12 [facility] TOTAL 12 NOTE: Visits indicate total known visits. ED/UCC VISIT TRACKING (12 MO.) 06/26/2022 23:28 [facility] [place] TYPE: Emergency COMPLAINT: - NECK SWELLING 05/15/2022 17:02 [facility] TYPE: Emergency COMPLAINT: - SHORTNESS OF BREATH 05/15/2022 03:16 [facility] TYPE: Emergency COMPLAINT: - NOSE BLEED DIAGNOSES: - Type 2 diabetes mellitus without complications - group home (current) use of oral hypoglycemic drugs - Presence of cardiac pacemaker - Allergy status to other drugs, medicaments and biological substances - Other assisted (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 - Abnormal coagulation profile - intermediate manager (current) use of anticoagulants - Chronic obstructive pulmonary disease, unspecified - Epistaxis - intermediate manager (current) use of aspirin - Personal history of nicotine dependence - Allergy status to sulfonamides - Personal history of urinary calculi 04/22/2022 12:57 [facility] TYPE: Emergency COMPLAINT: - SOB, WHEEZING 04/15/2022 21:05 [facility] TYPE: Emergency COMPLAINT: - FALL/ KNEE PAIN DIAGNOSES: - intermediate manager (current) use of aspirin - intermediate manager (current) use of oral hypoglycemic drugs - Type 2 diabetes mellitus without complications - Personal history of nicotine dependence - Laceration without foreign body, left knee, initial encounter - group home (current) use of anticoagulants - Personal history of urinary calculi - Chronic obstructive pulmonary disease, unspecified - 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 - Unspecified fall, initial encounter - Allergy status to other drugs, medicaments and biological substances 03/27/2022 15:41 [facility] TYPE: Emergency COMPLAINT: - NOSE BLEED DIAGNOSES: - intermediate manager (current) use of aspirin - Type 2 diabetes mellitus without complications - Epistaxis - Allergy status to other drugs, medicaments and biological substances - Personal history of nicotine dependence - intermediate manager (current) use of oral hypoglycemic drugs - Allergy status to sulfonamides - Personal history of urinary calculi - 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 - Chronic obstructive pulmonary disease, unspecified - intermediate manager (current) use of anticoagulants 03/05/2022 13:50 [facility] TYPE: Emergency COMPLAINT: - NOSE BLEED DIAGNOSES: - Other assisted (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 - Epistaxis - Personal history of nicotine dependence - Chronic obstructive pulmonary disease, unspecified - Allergy status to sulfonamides - Type 2 diabetes mellitus without complications - intermediate manager (current) use of oral hypoglycemic drugs - Allergy status to other drugs, medicaments and biological substances - group home (current) use of anticoagulants 03/04/2022 20:59 [facility] TYPE: Emergency COMPLAINT: - NOSE BLEED DIAGNOSES: - Epistaxis - group home (current) use of anticoagulants - Other assisted (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 - Chronic obstructive pulmonary disease, unspecified - Type 2 diabetes mellitus without complications - Allergy status to sulfonamides - intermediate manager (current) use of aspirin - Allergy status to other drugs, medicaments and biological substances - intermediate manager (current) use of oral hypoglycemic drugs 03/01/2022 04:26 [facility] TYPE: Emergency COMPLAINT: - NOSE BLEED DIAGNOSES: - Allergy status to sulfonamides - group home (current) use of anticoagulants - Epistaxis - Personal history of nicotine dependence - Type 2 diabetes mellitus without complications - Allergy status to other drugs, medicaments and biological substances - Chronic obstructive pulmonary disease, unspecified - intermediate manager (current) use of aspirin - Other assisted (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 - group home (current) use of oral hypoglycemic drugs 02/28/2022 05:47 [facility] TYPE: Emergency COMPLAINT: - BLOODY NOSE 1 HOUR DIAGNOSES: - Type 2 diabetes mellitus without complications - intermediate manager (current) use of oral hypoglycemic drugs - Chronic obstructive pulmonary disease, unspecified - Personal history of nicotine dependence - Other assisted (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 - Allergy status to other drugs, medicaments and biological substances - Epistaxis - Presence of cardiac pacemaker - group home (current) use of anticoagulants - Allergy status to sulfonamides 01/02/2022 11:14 [facility] TYPE: Emergency COMPLAINT: - NOSE BLEED DIAGNOSES: - group home (current) use of oral hypoglycemic drugs - 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 - Personal history of nicotine dependence - intermediate manager (current) use of aspirin - Epistaxis - Presence of coronary angioplasty implant and graft - Allergy status to other drugs, medicaments and biological substances - intermediate manager (current) use of anticoagulants 08/30/2021 15:05 [facility] [place] TYPE: Emergency COMPLAINT: - NOSE BLEED DIAGNOSES: - group home (current) use of aspirin - intermediate manager (current) use of oral hypoglycemic drugs - Chronic obstructive pulmonary disease, unspecified - Personal history of nicotine dependence - 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 - group home (current) use of anticoagulants - Type 2 diabetes mellitus without complications - Allergy status to other drugs, medicaments and biological substances - Epistaxis INPATIENT VISIT TRACKING (12 MO.) 05/15/2022 20:07 [facility] TYPE: Medical Surgical COMPLAINT: - ACUTE HYPOXIC RESPIRATORY FAILURE,RSV DIAGNOSES: - Type 2 diabetes mellitus with diabetic chronic kidney disease - group home (current) use of aspirin - Obstructive sleep apnea (adult) (pediatric) - Benign prostatic hyperplasia without lower urinary tract symptoms - Epistaxis - Chronic obstructive pulmonary disease with (acute) exacerbation - Personal history of nicotine dependence - Other assisted (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 - intermediate manager (current) use of oral hypoglycemic drugs - Presence of right artificial hip joint - Presence of other heart-valve replacement - intermediate manager (current) use of oral hypoglycemic drugs - Personal history of urinary calculi - Presence of other heart-valve replacement - Acute on chronic systolic (congestive) heart failure - Chronic obstructive pulmonary disease with (acute) lower respiratory infection - Allergy status to other drugs, medicaments and biological substances - Personal history of nicotine dependence - Chronic kidney disease, stage 3b - Acute on chronic systolic (congestive) heart failure - Adverse effect of anticoagulants, initial encounter - Respiratory syncytial virus as the cause of diseases classified elsewhere - Benign prostatic hyperplasia without lower urinary tract symptoms - 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 - 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 of inflammatory arthritis and tophaceous disease - Chronic obstructive pulmonary disease with (acute) lower respiratory infection - group home (current) use of anticoagulants - Contact with and (suspected) exposure to COVID-19 - Chronic obstructive pulmonary disease with (acute) exacerbation - Respiratory syncytial virus pneumonia - Allergy status to sulfonamides - intermediate manager (current) use of aspirin - Adverse effect of anticoagulants, initial encounter - Chronic kidney disease, stage 3b - Hemorrhagic disorder due to extrinsic circulating anticoagulants - Acute and chronic respiratory failure with hypoxia - Epistaxis - Presence of right artificial hip joint - Acute and chronic respiratory failure with hypercapnia - Allergy status to sulfonamides - Respiratory syncytial virus pneumonia - Presence of cardiac pacemaker - Allergy status to other drugs, medicaments and biological substances - Acute kidney failure, unspecified - Obstructive sleep apnea (adult) (pediatric) - Acute and chronic respiratory failure with hypercapnia - 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 of inflammatory arthritis and tophaceous disease - Type 2 diabetes mellitus with diabetic chronic kidney disease - Contact with and (suspected) exposure to COVID-19 - Presence of cardiac pacemaker - intermediate manager (current) use of anticoagulants - Hemorrhagic disorder due to extrinsic circulating anticoagulants - Acute kidney failure, unspecified - Personal history of urinary calculi 04/22/2022 18:01 [facility] [place] TYPE: Medical Surgical COMPLAINT: - ACUTE DECOMPENSATED SYSTOLIC HEART FAILURE DIAGNOSES: - Other assisted (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 - 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 - Contact with and (suspected) exposure to COVID-19 - Acute on chronic systolic (congestive) heart failure - Influenza due to other identified influenza virus with other respiratory manifestations - group home (current) use of aspirin - Hypertensive heart [...] hyperplasia without lower urinary tract symptoms - Allergy status to sulfonamides - Chronic obstructive pulmonary disease, unspecified - Allergy status to other drugs, medicaments and biological substances - Type 2 diabetes mellitus with diabetic chronic kidney disease - Contact with and (suspected) exposure to COVID-19 - intermediate manager (current) use of aspirin - Chronic kidney disease, stage 3b [email or web address]
[2022-06-26] MEDS ORDERED: AZITHROMYCIN250 MG PO (23:41)
[2022-06-27] MEDS ORDERED: PERCOCET 5-3251 EACH PO (01:18)
[2022-06-27] MEDS ORDERED: AMOX TR-K CLV1 EAC1 PO (01:18)
== END 2022-06-27 06:18 | disposition home or self-care (01) ==
LOC: ED 23:27
DX: K11.21 Acute sialoadenitis (principal); E11.9 Type 2 diabetes mellitus without complications; J44.9 Chronic obstructive pulmonary disease, unspecified; Z87.891 Personal history of nicotine dependence; Z88.8 Allergy status to other drugs, medicaments and biological substances; Z88.2 Allergy status to sulfonamides; Z79.899 Other long term (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; Z79.84 Long term (current) use of oral hypoglycemic drugs; Z79.82 Long term (current) use of aspirin; Z79.01 Long term (current) use of anticoagulants
CPT/HCPCS: 36415; 70491; 80053; 85025; 85610; 86735; 96375; 99284-25; J1170; J2270; J2543; J7040

== ENCOUNTER 2022-06-28 13:26 | Observation (INO) | payer MEDICARE ==
[~2022-06-28] VITALS: Ht 182.9 cm; Wt 105.0 kg
[~2022-06-28 13:26] MED LIST changes: +AMOX TR-K CLV1 EAC1 PO; +AZITHROMYCIN250 MG PO; +PERCOCET 5-3251 EACH PO
--- NOTE | 2022-06-28 14:41 | NUR ---
PT TO FLOOR BY WHEELCHAIR. ALTHOUGH WALKS WITH CANE SHORTER DISTANCES. PT TALKATIVE AND ANSWERS QUESTIONS APPROPRIATLY. LEFT SIDED FACIAL SWELLING NOTED. PT STATES THAT THE PAIN IS OK WHEN NOT TALKING TOO MUCH OR TOUCHING IT. WHEN TRYING TO EAT IT GETS UP TO AN 8 OR 9\10
--- NOTE | 2022-06-28 15:46 | NUR ---
MED REC COMPLETE
--- NOTE | 2022-06-28 16:40 | NUR ---
Spoke with Serge. He states he lives in a house with his , 3 steps into home. He uses a Bipap and a cane. He and his shop together. He denies issues walking or getting into or out of his home. He states he drives. He denies any needs at this time. His will drive him home on dc. Plans on dc to home when cleared medically.
--- NOTE | 2022-06-28 16:49 | NUR ---
DID PATIENT'S BLOOD SUGAR.
--- NOTE | 2022-06-28 17:55 | NUR ---
PT CALLED THIS RN AND WAS VERY UPSET, ALMOST YELLING ABOUT HOW BAD THE FOOD WAS AND THAT HE WOULD NOT FEED IT TO A DOG HE HATED. CALMED HIM DOWN AND OFFERED SOLUTIONS TO WHICH HE WAS EVENTUALLY OK WITH.
--- NOTE | 2022-06-28 23:54 | NUR ---
PT LYING IN BED RESTING QUIETLY. RESP EVEN ET UNLABORED.ABLE TO MAKE NEEDS KNOWN. PT STATES SWELLING TO LEFT SIDE OF FACE HAS IMPROVED. PT HAS ON HOME BIPAP WITH NO DISCOMFORT TO LEFT SIDE OF FACE. PT INSTRUCTED TO USE CALL LIGHT FOR ASSISTANCE OUT OF BED. PT ASSIST X 1 WITH CANE. PT HAS NO COMPLAINTS OF PAIN OR DISTRESS AT THIS TIME.
--- NOTE | 2022-06-29 00:05 | NUR ---
BED ALARMING. PATIENT GOT UP TO USE THE URINAL. PATIENT VOIDED 125ML DARK URINE. PATIENT IS NOW LAYING IN BED. BED ALARM ON FOR SAFETY.
--- NOTE | 2022-06-29 07:32 | NUR ---
RECIEVED SHIFT REPORT. PT SITTING IN RECLINER, CELL PHONE IN HAND. CALL LIGHT WITHIN REACH
--- NOTE | 2022-06-29 08:53 | NUR ---
MORNING ASSESSMENT COMPLETE. DENIES PAIN AT THIS TIME. PT REPORTS FACIAL SWELLING HAS DECREASED. NO WARMTH NOTED WITH PALPATION. ABX RUNNING AT THIS TIME. CALL LIGHT WITHIN REACH. DENIES FURTHER NEEDS.
--- NOTE | 2022-06-29 10:51 | NUR ---
SITTING IN CHAIR,PATIENT STATES HE FEELS MUCH BETTER TODAY. THE DISCHARGE PLAN CONTINUES TO BE THE SAME.THE PATIENT'S HOUSE IS SET-UP FOR SAFETY WITH PULL BARS TO HELP WITH BALANCE. PATIENTS SON AND WILL HELP WITH DISCHARGE NEEDS.THE PATIENT ALSO USES A CANE TO HELP WITH WALKING.
--- NOTE | 2022-06-29 12:29 | NUR ---
PT SITTING IN RECLINER, AT BEDSIDE. CALL LIGHT WITHIN REACH. DENIES FURTHER NEEDS.
--- NOTE | 2022-06-29 13:30 | NUR ---
PT SITTING IN CHAIR, FULLY DRESSED AND JUST FINISHING A PHONE CALL. IV THERAPY IN USE.PT FEELING BETTER. WOULD LIKE ME TO CONTACT HIS PASTORS AND ALESIADATE. 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 GAVE ENCOURAGEMENT AND BLESSING
--- NOTE | 2022-06-29 14:38 | NUR ---
ABX HANGING AT THIS TIME. PT IN RECLINER, DENIES FURTHER NEEDS. CALL LIGHT WITHIN REACH.
--- NOTE | 2022-06-29 16:52 | NUR ---
PT IN BED, AWAKE. DENIES FURTHER NEEDS. CALL LIGHT WITHIN REACH
--- NOTE | 2022-06-29 20:21 | NUR ---
PT WAS ALERT AND DEESIRING A VISIT WHEN I WALKED BY THE ROOM. PROVIDED PASTORAL CARE AND PRAYED WITH PT.
--- NOTE | 2022-06-30 07:18 | NUR ---
pt call light answered. pt req coffee. coffee provided. no further needs. call light within reach
--- NOTE | 2022-06-30 08:15 | NUR ---
REPORT RECEIVED FROM NIGHT RN AND PT CARE RESUMED. PT. IS ALERT AND ORIENTED SEATED AT EOB. DENIES PAIN OR DIFFICULTY SWALLOWING. ASSESSMENT COMPLETED. DISCUSSED DC PLAN AND BREAKFAST. LEFT RESTING WITH CALL LIGHT IN REACH AND ALARM ON.
[2022-06-30] MEDS ORDERED: AMOX TR-K CLV1 EAC1 PO (09:00)
--- NOTE | 2022-06-30 09:55 | NUR ---
ALL DISCHARGE INSTRUCTIONS REVIEWED AND QUESTIONS ANSWERED. STUDENT RN IN FOR VITALS.
== END 2022-06-30 10:05 | disposition home or self-care (01) ==
LOC: MS 13:26
PROVIDERS: ADMIT Internal Medicine; ATTEND Internal Medicine
DX: K11.21 Acute sialoadenitis (principal); I50.22 Chronic systolic (congestive) heart failure; E11.22 Type 2 diabetes mellitus with diabetic chronic kidney disease; N18.32 Chronic kidney disease, stage 3b; J44.9 Chronic obstructive pulmonary disease, unspecified; Z20.822 Contact with and (suspected) exposure to COVID-19; Z99.89 Dependence on other enabling machines and devices; Z87.891 Personal history of nicotine dependence; Z79.01 Long term (current) use of anticoagulants; Z79.82 Long term (current) use of aspirin; Z79.84 Long term (current) use of oral hypoglycemic drugs; Z79.899 Other long term (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; Z88.2 Allergy status to sulfonamides; Z88.8 Allergy status to other drugs, medicaments and biological substances
CPT/HCPCS: 36415; 80048; 85025; 85610; 86140; 87502; 96361; 96366; 96376; A9270; C9803; G0378; J0295; J1815; J8540; U0003

== ENCOUNTER 2022-07-12 21:24 | Emergency (ER) | payer MEDICARE ==
[~2022-07-12] VITALS: Ht 182.9 cm; Wt 106.8 kg
--- OUTSIDE RECORDS SUMMARY | 2022-07-12 21:26 | XMS ---
PreManage Notification: DENISE VENTURA Security Giving Officer Events No recent Security Events currently on file CRITERIA MET - [facility] - 2 Visits in 30 Days - Group Notification - 6 ED Visits in 6 Months CARE PROVIDERS MED TIWARI [facility] Medicine 01/08/2018-Current PHONE: Unknown SUSAN SALDANA [facility] Current PHONE: [phone] Tonya has no Care Guidelines for this patient. EUrszula VISIT COUNT (12 MO.) [address] [place] [address] TOTAL 13 NOTE: Visits indicate total known visits. ED/UCC VISIT TRACKING (12 MO.) 07/12/2022 21:25 [facility] [place] TYPE: Emergency COMPLAINT: - NOSE BLEED 06/26/2022 23:28 [facility] [place] TYPE: Emergency COMPLAINT: - NECK SWELLING DIAGNOSES: - Type 2 diabetes mellitus without complications - residential (current) use of oral hypoglycemic drugs - Allergy status to sulfonamides - Localized swelling, mass and lump, neck - Personal history of nicotine dependence - Acute sialoadenitis - Other half-way (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 - manager long term care (current) use of aspirin - Allergy status to other drugs, medicaments and biological substances - Chronic obstructive pulmonary disease, unspecified - residential (current) use of anticoagulants 05/15/2022 17:02 [facility] [place] TYPE[place] Emergency COMPLAINT: - SHORTNESS OF BREATH 05/15/2022 03:16 [facility] [place] TYPE: [place] COMPLAINT: - NOSE BLEED DIAGNOSES: - Chronic obstructive pulmonary disease, unspecified - Epistaxis - residential (current) use of aspirin - Personal history of nicotine dependence - Allergy status to sulfonamides - Personal history of urinary calculi - Type 2 diabetes mellitus without complications - residential (current) use of oral hypoglycemic drugs - Presence of cardiac pacemaker - Allergy status to other drugs, medicaments and biological substances - Other half-way (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 - Abnormal coagulation profile - manager long term care (current) use of anticoagulants 04/22/2022 12:57 [facility] [place] TYPE: Emergency COMPLAINT: - SOB, WHEEZING 04/15/2022 21:05 [facility] [place] TYPE: [place] COMPLAINT: - FALL/ KNEE PAIN DIAGNOSES: - Personal history of urinary calculi - Chronic obstructive pulmonary disease, unspecified - Other terminal supervisor (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 - Unspecified fall, initial encounter - Allergy status to other drugs, medicaments and biological substances - manager long term care (current) use of aspirin - manager long term care (current) use of oral hypoglycemic drugs - Type 2 diabetes mellitus without complications - Personal history of nicotine dependence - Laceration without foreign body, left knee, initial encounter - residential (current) use of anticoagulants 03/27/2022 15:41 [facility] [place] TYPE: Emergency COMPLAINT: - NOSE BLEED DIAGNOSES: - Allergy status to sulfonamides - Personal history of urinary calculi - Other half-way (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 - Chronic obstructive pulmonary disease, unspecified - residential (current) use of anticoagulants - residential (current) use of aspirin - Type 2 diabetes mellitus without complications - Epistaxis - Allergy status to other drugs, medicaments and biological substances - Personal history of nicotine dependence - residential (current) use of oral hypoglycemic drugs 03/05/2022 13:50 [facility] [place] TYPE: Emergency COMPLAINT: - NOSE BLEED DIAGNOSES: - Type 2 diabetes mellitus without complications - manager long term care (current) use of oral hypoglycemic drugs - Allergy status to other drugs, medicaments and biological substances - residential (current) use of anticoagulants - Other terminal supervisor (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 - Epistaxis - Personal history of nicotine dependence - Chronic obstructive pulmonary disease, unspecified - Allergy status to sulfonamides 03/04/2022 20:59 [facility] [place] TYPE: Emergency COMPLAINT: - NOSE BLEED DIAGNOSES: - Allergy status to sulfonamides - manager long term care (current) use of aspirin - Allergy status to other drugs, medicaments and biological substances - residential (current) use of oral hypoglycemic drugs - Epistaxis - residential (current) use of anticoagulants - Other half-way (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 - Chronic obstructive pulmonary disease, unspecified - Type 2 diabetes mellitus without complications 03/01/2022 04:26 [facility] [place] TYPE: Emergency COMPLAINT: - NOSE BLEED DIAGNOSES: - Chronic obstructive pulmonary disease, unspecified - residential (current) use of aspirin - Other half-way (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 - manager long term care (current) use of oral hypoglycemic drugs - Allergy status to sulfonamides - residential (current) use of anticoagulants - Epistaxis - Personal history of nicotine dependence - Type 2 diabetes mellitus without complications - Allergy status to other drugs, medicaments and biological substances 02/28/2022 05:47 [facility] [place] TYPE: Emergency COMPLAINT: - BLOODY NOSE 1 HOUR DIAGNOSES: - Epistaxis - Presence of cardiac pacemaker - manager long term care (current) use of anticoagulants - Allergy status to sulfonamides - Type 2 diabetes mellitus without complications - residential (current) use of oral hypoglycemic drugs - Chronic obstructive pulmonary disease, unspecified - Personal history of nicotine dependence - Other terminal supervisor (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 - Allergy status to other drugs, medicaments and biological substances 01/02/2022 11:14 [facility] [place] TYPE: Emergency COMPLAINT: - NOSE BLEED DIAGNOSES: - Presence of coronary angioplasty implant and graft - Allergy status to other drugs, medicaments and biological substances - manager long term care (current) use of anticoagulants - manager long term care (current) use of oral hypoglycemic drugs - Other terminal supervisor (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 - Personal history of nicotine dependence - residential (current) use of aspirin - Epistaxis 08/30/2021 15:05 [facility] [place] TYPE: Emergency COMPLAINT: - NOSE BLEED DIAGNOSES: - residential (current) use of anticoagulants - Type 2 diabetes mellitus without complications - Allergy status to other drugs, medicaments and biological substances - Epistaxis - manager long term care (current) use of aspirin - manager long term care (current) use of oral hypoglycemic drugs - Chronic obstructive pulmonary disease, unspecified - Personal history of nicotine dependence - Other terminal supervisor (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 INPATIENT VISIT TRACKING (12 MO.) 06/28/2022 13:26 [facility] [place] TYPE: Observation COMPLAINT: - PAROTITIS DIAGNOSES: - Contact with and (suspected) exposure to COVID-19 - manager long term care (current) use of anticoagulants - Chronic kidney disease, stage 3b - Chronic obstructive pulmonary disease, unspecified - Personal history of nicotine dependence - Allergy status to other drugs, medicaments and biological substances - Type 2 diabetes mellitus with diabetic chronic kidney disease - manager long term care (current) use of oral hypoglycemic drugs - Other terminal supervisor (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 - Allergy status to sulfonamides - residential (current) use of aspirin - Chronic systolic (congestive) heart failure - Dependence on other enabling machines and devices - Acute sialoadenitis 05/15/2022 20:07 [facility] [place] TYPE: Medical Surgical COMPLAINT: - ACUTE HYPOXIC RESPIRATORY FAILURE,RSV DIAGNOSES: - Contact with and (suspected) exposure to COVID-19 - Chronic obstructive pulmonary disease with (acute) exacerbation - Respiratory syncytial virus pneumonia - Allergy status to sulfonamides - manager long term care (current) use of aspirin - Adverse effect [...] substances - Acute kidney failure, unspecified - Acute and chronic respiratory failure with hypercapnia - 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 of inflammatory arthritis and tophaceous disease - Type 2 diabetes mellitus with diabetic chronic kidney disease - Obstructive sleep apnea (adult) (pediatric) - Contact with and (suspected) exposure to COVID-19 - Presence of cardiac pacemaker - residential (current) use of anticoagulants - Hemorrhagic disorder due to extrinsic circulating anticoagulants - Acute kidney failure, unspecified - Personal history of urinary calculi - Type 2 diabetes mellitus with diabetic chronic kidney disease - manager long term care (current) use of aspirin - Obstructive sleep apnea (adult) (pediatric) - Benign prostatic hyperplasia without lower urinary tract symptoms - Epistaxis - Chronic obstructive pulmonary disease with (acute) exacerbation - Personal history of nicotine dependence - Other terminal supervisor (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 - manager long term care (current) use of oral hypoglycemic drugs - Presence of right artificial hip joint - Presence of other heart-valve replacement - residential (current) use of oral hypoglycemic drugs - Personal history of urinary calculi - Acute on chronic systolic (congestive) heart failure - Chronic obstructive pulmonary disease with (acute) lower respiratory infection - Allergy status to other drugs, medicaments and biological substances - Presence of other heart-valve replacement - Personal history of nicotine dependence - Chronic kidney disease, stage 3b - Acute on chronic systolic (congestive) heart failure - Respiratory syncytial virus as the cause of diseases classified elsewhere - Benign prostatic hyperplasia without lower urinary tract symptoms - Other terminal supervisor (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 - Adverse effect of anticoagulants, initial encounter - 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 of inflammatory arthritis and tophaceous disease - Chronic obstructive pulmonary disease with (acute) lower respiratory infection - residential (current) use of anticoagulants 04/22/2022 18:01 [facility] [place] TYPE: Medical Surgical COMPLAINT: - ACUTE [...] disease, unspecified - Type 2 diabetes mellitus with diabetic chronic kidney disease - Allergy status to other drugs, medicaments and biological substances - Contact with and (suspected) exposure to COVID-19 - manager long term care (current) use of aspirin - Chronic kidney disease, stage 3b - Other half-way (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 - Other half-way (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 - Contact with and (suspected) exposure to COVID-19 - Acute on chronic systolic (congestive) heart failure - Influenza due to other identified influenza virus with other respiratory manifestations - residential (current) use of aspirin - Hypertensive heart disease with heart failure - Type 2 diabetes mellitus with diabetic chronic kidney disease - Influenza due to other identified influenza virus with other respiratory manifestations - Personal history of nicotine dependence - Obstructive sleep apnea (adult) (pediatric) - Presence of cardiac pacemaker - 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 of inflammatory arthritis and tophaceous disease - Obstructive sleep apnea (adult) (pediatric) - 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 of inflammatory arthritis and tophaceous disease - Personal history of nicotine dependence [email or web address]
== END 2022-07-12 23:00 | disposition home or self-care (01) ==
LOC: ED 21:24
DX: R04.0 Epistaxis (principal); E11.9 Type 2 diabetes mellitus without complications; J44.9 Chronic obstructive pulmonary disease, unspecified; Z87.891 Personal history of nicotine dependence; Z88.8 Allergy status to other drugs, medicaments and biological substances; Z88.2 Allergy status to sulfonamides; Z79.899 Other long term (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; Z79.01 Long term (current) use of anticoagulants; Z79.84 Long term (current) use of oral hypoglycemic drugs; Z79.82 Long term (current) use of aspirin
CPT/HCPCS: 36415; 85025; 85610; 85730; 99283

== ENCOUNTER 2022-07-17 18:25 | Emergency (ER) | payer MEDICARE ==
[~2022-07-17] VITALS: Ht 182.9 cm; Wt 113.1 kg
--- OUTSIDE RECORDS SUMMARY | 2022-07-17 18:28 | XMS ---
PreManage Notification: DENISE VENTURA Security Geodesist Events No recent Security Events currently on file CRITERIA MET - 6 ED Visits in [address] [facility] - 2 Visits in 30 Days - Group Notification CARE PROVIDERS MED TIWARI [facility] Medicine 01/08/2018-Current PHONE: Unknown SUSAN SALDANA [facility] Current PHONE: [phone] Tonya has no Care Guidelines for this patient. EUrszula VISIT COUNT (12 MO.) [address] [place] [address] TOTAL 14 NOTE: Visits indicate total known visits. ED/UCC VISIT TRACKING (12 MO.) 07/17/2022 18:26 [facility] [place] TYPE: Emergency COMPLAINT: - SOB 07/12/2022 21:25 [facility] [place] TYPE: Emergency COMPLAINT: - NOSE BLEED DIAGNOSES: - Allergy status to other drugs, medicaments and biological substances - intermediate frame tender (current) use of oral hypoglycemic drugs - Allergy status to sulfonamides - Chronic obstructive pulmonary disease, unspecified - Personal history of nicotine dependence - long-term (current) use of anticoagulants - Other care home (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 - intermediate frame tender (current) use of aspirin - Type 2 diabetes mellitus without complications - Epistaxis 06/26/2022 23:28 [facility] [place] TYPE: Emergency COMPLAINT: - NECK SWELLING DIAGNOSES: - intermediate frame tender (current) use of aspirin - Allergy status to other drugs, medicaments and biological substances - Chronic obstructive pulmonary disease, unspecified - long-term (current) use of anticoagulants - Type 2 diabetes mellitus without complications - long-term (current) use of oral hypoglycemic drugs - Allergy status to sulfonamides - Localized swelling, mass and lump, neck - Personal history of nicotine dependence - Acute sialoadenitis - Other intermediate frame tender (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 05/15/2022 17:02 [facility] [place] TYPE: Emergency COMPLAINT: - SHORTNESS OF BREATH 05/15/2022 03:16 [facility] [place] TYPE: Emergency COMPLAINT: - NOSE BLEED DIAGNOSES: - Allergy status to other drugs, medicaments and biological substances - Other intermediate frame tender (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 - Abnormal coagulation profile - intermediate frame tender (current) use of anticoagulants - Chronic obstructive pulmonary disease, unspecified - Epistaxis - intermediate frame tender (current) use of aspirin - Personal history of nicotine dependence - Allergy status to sulfonamides - Personal history of urinary calculi - Type 2 diabetes mellitus without complications - intermediate frame tender (current) use of oral hypoglycemic drugs - Presence of cardiac pacemaker 04/22/2022 12:57 [facility] [place] TYPE: Emergency COMPLAINT: - SOB, WHEEZING 04/15/2022 21:05 [facility] [place] TYPE: Emergency COMPLAINT: - FALL/ KNEE PAIN DIAGNOSES: - Type 2 diabetes mellitus without complications - Personal history of nicotine dependence - Laceration without foreign body, left knee, initial encounter - long-term (current) use of anticoagulants - Personal history of urinary calculi - Chronic obstructive pulmonary disease, unspecified - Other intermediate frame tender (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 - Unspecified fall, initial encounter - Allergy status to other drugs, medicaments and biological substances - long-term (current) use of aspirin - intermediate frame tender (current) use of oral hypoglycemic drugs 03/27/2022 15:41 [facility] [place] TYPE: Emergency COMPLAINT: - NOSE BLEED DIAGNOSES: - Epistaxis - Allergy status to other drugs, medicaments and biological substances - Personal history of nicotine dependence - long-term (current) use of oral hypoglycemic drugs - Allergy status to sulfonamides - Personal history of urinary calculi - Other care home (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 - Chronic obstructive pulmonary disease, unspecified - long-term (current) use of anticoagulants - long-term (current) use of aspirin - Type 2 diabetes mellitus without complications 03/05/2022 13:50 [facility] [place] TYPE: Emergency COMPLAINT: - NOSE BLEED DIAGNOSES: - Personal history of nicotine dependence - Chronic obstructive pulmonary disease, unspecified - Allergy status to sulfonamides - Type 2 diabetes mellitus without complications - intermediate frame tender (current) use of oral hypoglycemic drugs - Allergy status to other drugs, medicaments and biological substances - intermediate frame tender (current) use of anticoagulants - Other care home (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 - Epistaxis 03/04/2022 20:59 [facility] [place] TYPE: Emergency COMPLAINT: - NOSE BLEED DIAGNOSES: - Other care home (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 - Chronic obstructive pulmonary disease, unspecified - Type 2 diabetes mellitus without complications - Allergy status to sulfonamides - long-term (current) use of aspirin - Allergy status to other drugs, medicaments and biological substances - intermediate frame tender (current) use of oral hypoglycemic drugs - Epistaxis - long-term (current) use of anticoagulants 03/01/2022 04:26 [facility] [place] TYPE: Emergency COMPLAINT: - NOSE BLEED DIAGNOSES: - Epistaxis - Personal history of nicotine dependence - Type 2 diabetes mellitus without complications - Allergy status to other drugs, medicaments and biological substances - Chronic obstructive pulmonary disease, unspecified - intermediate frame tender (current) use of aspirin - Other intermediate frame tender (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 - intermediate frame tender (current) use of oral hypoglycemic drugs - Allergy status to sulfonamides - long-term (current) use of anticoagulants 02/28/2022 05:47 [facility] [place] TYPE: Emergency COMPLAINT: - BLOODY NOSE 1 HOUR DIAGNOSES: - Chronic obstructive pulmonary disease, unspecified - Personal history of nicotine dependence - Other intermediate frame tender (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 - Allergy status to other drugs, medicaments and biological substances - Epistaxis - Presence of cardiac pacemaker - intermediate frame tender (current) use of anticoagulants - Allergy status to sulfonamides - Type 2 diabetes mellitus without complications - intermediate frame tender (current) use of oral hypoglycemic drugs 01/02/2022 11:14 [facility] [place] TYPE: Emergency COMPLAINT: - NOSE BLEED DIAGNOSES: - Personal history of nicotine dependence - long-term (current) use of aspirin - Epistaxis - Presence of coronary angioplasty implant and graft - Allergy status to other drugs, medicaments and biological substances - intermediate frame tender (current) use of anticoagulants - long-term (current) use of oral hypoglycemic drugs - Other care home (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 08/30/2021 15:05 [facility] [place] TYPE: Emergency COMPLAINT: - NOSE BLEED DIAGNOSES: - Chronic obstructive pulmonary disease, unspecified - Personal history of nicotine dependence - Other intermediate frame tender (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 - long-term (current) use of anticoagulants - Type 2 diabetes mellitus without complications - Allergy status to other drugs, medicaments and biological substances - Epistaxis - long-term (current) use of aspirin - long-term (current) use of oral hypoglycemic drugs INPATIENT VISIT TRACKING (12 MO.) 06/28/2022 13:26 [facility] [place] TYPE: Observation COMPLAINT: - PAROTITIS DIAGNOSES: - long-term (current) use of aspirin - Chronic systolic (congestive) heart failure - Dependence on other enabling machines and devices - Acute sialoadenitis - Contact with and (suspected) exposure to COVID-19 - intermediate frame tender (current) use of anticoagulants - Chronic kidney disease, stage 3b - Chronic obstructive pulmonary disease, unspecified - Personal history of nicotine dependence - Allergy status to other drugs, medicaments and biological substances - Type 2 diabetes mellitus with diabetic chronic kidney disease - long-term (current) use of oral hypoglycemic drugs - Other intermediate frame tender (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 - Allergy status to sulfonamides 05/15/2022 20:[address] [facility] [place] TYPE: Medical Surgical COMPLAINT: - ACUTE HYPOXIC RESPIRATORY FAILURE,RSV DIAGNOSES: - Presence of other heart-valve replacement - [...] without lower urinary tract symptoms - Other intermediate frame tender (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 - 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 of inflammatory arthritis and tophaceous disease - Chronic obstructive pulmonary disease with (acute) lower respiratory infection - long-term (current) use of anticoagulants - Contact with and (suspected) exposure to COVID-19 - Chronic obstructive pulmonary disease with (acute) exacerbation - Respiratory syncytial virus pneumonia - Allergy status to sulfonamides - intermediate frame tender (current) use of aspirin - Adverse effect [...] COVID-19 - Presence of cardiac pacemaker - long-term (current) use of anticoagulants - Hemorrhagic disorder due to extrinsic circulating anticoagulants - Acute kidney failure, unspecified - Personal history of urinary calculi - Type 2 diabetes mellitus with diabetic chronic kidney disease - long-term (current) use of aspirin - Obstructive sleep apnea (adult) (pediatric) - Benign prostatic hyperplasia without lower urinary tract symptoms - Epistaxis - Chronic obstructive pulmonary disease with (acute) exacerbation - Personal history of nicotine dependence - Other intermediate frame tender (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 - long-term (current) use of oral hypoglycemic drugs - Presence of right artificial hip joint - Presence of other heart-valve replacement - long-term (current) use of oral hypoglycemic drugs - Personal history of urinary calculi 04/22/2022 18:01 [facility] [place] [facility] Medical Surgical COMPLAINT: - ACUTE DECOMPENSATED SYSTOLIC HEART FAILURE DIAGNOSES: - Personal history of nicotine dependence [...] and (suspected) exposure to COVID-19 - intermediate frame tender (current) use of aspirin - Chronic kidney disease, stage 3b - Other care home (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 - Other intermediate frame tender (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 - Contact with and (suspected) exposure to COVID-19 - Acute on chronic systolic (congestive) heart failure - Influenza due to other identified influenza virus with other respiratory manifestations - long-term (current) use of aspirin - Hypertensive heart disease with heart failure - Type 2 diabetes mellitus with diabetic chronic kidney disease [email or web address]
--- NOTE | 2022-07-18 07:17 | EKG ---
[facility] [address] [facility] [place], [place] [address] Signed Ventricular-paced rhythm with occasional premature ventricular complexes Abnormal ECG No previous ECGs available Confirmed by KANG SANDERS MD ([id number] on 07/18/2022 7:17:44 AM Electronically Signed By: KANG SANDERS MD 07/18/22 0717 PATIENT NAME: DENISE VENTURA Electrocardiogram DATE OF : 37 PHYSICIAN: KANG SANDERS MD REPORT #: [id number] REPORT IS CONFIDENTIAL AND NOT TO BE RELEASED WITHOUT AUTHORIZATION
== END 2022-07-17 21:01 | disposition home or self-care (01) ==
LOC: ED 18:25
DX: I50.9 Heart failure, unspecified (principal); Z20.822 Contact with and (suspected) exposure to COVID-19; E11.9 Type 2 diabetes mellitus without complications; J44.9 Chronic obstructive pulmonary disease, unspecified; Z87.891 Personal history of nicotine dependence; Z88.8 Allergy status to other drugs, medicaments and biological substances; Z88.2 Allergy status to sulfonamides; Z88.1 Allergy status to other antibiotic agents; Z79.899 Other long term (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; Z79.84 Long term (current) use of oral hypoglycemic drugs; Z79.01 Long term (current) use of anticoagulants; Z79.82 Long term (current) use of aspirin
CPT/HCPCS: 36415; 51798; 71045; 80053; 83735; 83880; 84484; 85025; 87502; 99285-25; J1940; U0003

== ENCOUNTER 2022-07-30 22:05 | Observation (INO) | payer MEDICARE ==
[~2022-07-30] VITALS: Ht 182.9 cm; Wt 111.1 kg
--- OUTSIDE RECORDS SUMMARY | 2022-07-30 22:09 | XMS ---
PreManage Notification: DENISE VENTURA Security Receiving Checker Events No recent Security Events currently on file CRITERIA MET - [facility] - 2 Visits in 30 Days - 6 ED Visits in 6 Months - Group Notification CARE PROVIDERS MED TIWARI [facility] Medicine 01/08/2018-Current PHONE: Unknown SUSAN SALDANA [facility] Current PHONE: [phone] Tonya has no Care Guidelines for this patient. EUrszula VISIT COUNT (12 MO.) [address] [place] [address] TOTAL 15 NOTE: Visits indicate total known visits. ED/UCC VISIT TRACKING (12 MO.) 07/30/2022 22:05 [facility] [place] TYPE: Emergency COMPLAINT: - SOB 07/17/2022 18:26 [facility] [place] TYPE: Emergency COMPLAINT: - SOB DIAGNOSES: - Allergy status to sulfonamides - Heart failure, unspecified - MCC (current) use of anticoagulants - Shortness of breath - Personal history of nicotine dependence - Allergy status to other drugs, medicaments and biological substances - MCC (current) use of aspirin - Type 2 diabetes mellitus without complications - Allergy status to other antibiotic agents - siene maker (current) use of oral hypoglycemic drugs - Chronic obstructive pulmonary disease, unspecified - 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 - Contact with and (suspected) exposure to COVID-19 07/12/2022 21:25 [facility] [place] TYPE: Emergency COMPLAINT: - NOSE BLEED DIAGNOSES: - Type 2 diabetes mellitus without complications - Epistaxis - Allergy status to other drugs, medicaments and biological substances - MCC (current) use of oral hypoglycemic drugs - Allergy status to sulfonamides - Chronic obstructive pulmonary disease, unspecified - Personal history of nicotine dependence - siene maker (current) use of anticoagulants - 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 - MCC (current) use of aspirin 06/26/2022 23:28 [facility] [place] TYPE: Emergency COMPLAINT: - NECK SWELLING DIAGNOSES: - Acute sialoadenitis - 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 - MCC (current) use of aspirin - Allergy status to other drugs, medicaments and biological substances - Chronic obstructive pulmonary disease, unspecified - MCC (current) use of anticoagulants - Type 2 diabetes mellitus without complications - MCC (current) use of oral hypoglycemic drugs - Allergy status to sulfonamides - Localized swelling, mass and lump, neck - Personal history of nicotine dependence 05/15/2022 17:02 [facility] [place] TYPE: Emergency COMPLAINT: - SHORTNESS OF BREATH 05/15/2022 03:16 [facility] [place] TYPE: Emergency COMPLAINT: - NOSE BLEED DIAGNOSES: - Type 2 diabetes mellitus without complications - MCC (current) use of oral hypoglycemic drugs - Presence of cardiac pacemaker - Allergy status to other drugs, medicaments and biological substances - Other snf (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 - Abnormal coagulation profile - MCC (current) use of anticoagulants - Chronic obstructive pulmonary disease, unspecified - Epistaxis - MCC (current) use of aspirin - Personal history of nicotine dependence - Allergy status to sulfonamides - Personal history of urinary calculi 04/22/2022 12:57 [facility] [place] TYPE: Emergency COMPLAINT: - SOB, WHEEZING 04/15/2022 21:05 [facility] [place] TYPE: Emergency COMPLAINT: - FALL/ KNEE PAIN DIAGNOSES: - siene maker (current) use of aspirin - MCC (current) use of oral hypoglycemic drugs - Type 2 diabetes mellitus without complications - Personal history of nicotine dependence - Laceration without foreign body, left knee, initial encounter - siene maker (current) use of anticoagulants - Personal history of urinary calculi - Chronic obstructive pulmonary disease, unspecified - Other snf (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 - Unspecified fall, initial encounter - Allergy status to other drugs, medicaments and biological substances 03/27/2022 15:41 [facility] [place] TYPE: Emergency COMPLAINT: - NOSE BLEED DIAGNOSES: - siene maker (current) use of aspirin - Type 2 diabetes mellitus without complications - Epistaxis - Allergy status to other drugs, medicaments and biological substances - Personal history of nicotine dependence - siene maker (current) use of oral hypoglycemic drugs - Allergy status to sulfonamides - Personal history of urinary calculi - Other snf (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 - Chronic obstructive pulmonary disease, unspecified - siene maker (current) use of anticoagulants 03/05/2022 13:50 [facility] [place] TYPE: Emergency COMPLAINT: - NOSE BLEED DIAGNOSES: - 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 - Epistaxis - Personal history of nicotine dependence - Chronic obstructive pulmonary disease, unspecified - Allergy status to sulfonamides - Type 2 diabetes mellitus without complications - siene maker (current) use of oral hypoglycemic drugs - Allergy status to other drugs, medicaments and biological substances - MCC (current) use of anticoagulants 03/04/2022 20:59 [facility] [place] TYPE: Emergency COMPLAINT: - NOSE BLEED DIAGNOSES: - Epistaxis - MCC (current) use of anticoagulants - 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 - Chronic obstructive pulmonary disease, unspecified - Type 2 diabetes mellitus without complications - Allergy status to sulfonamides - MCC (current) use of aspirin - Allergy status to other drugs, medicaments and biological substances - MCC (current) use of oral hypoglycemic drugs 03/01/2022 04:26 [facility] [place] TYPE: Emergency COMPLAINT: - NOSE BLEED DIAGNOSES: - Allergy status to sulfonamides - MCC (current) use of anticoagulants - Epistaxis - Personal history of nicotine dependence - Type 2 diabetes mellitus without complications - Allergy status to other drugs, medicaments and biological substances - Chronic obstructive pulmonary disease, unspecified - MCC (current) use of aspirin - 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 - siene maker (current) use of oral hypoglycemic drugs 02/28/2022 05:47 [facility] [place] TYPE: Emergency COMPLAINT: - BLOODY NOSE 1 HOUR DIAGNOSES: - Type 2 diabetes mellitus without complications - MCC (current) use of oral hypoglycemic drugs - Chronic obstructive pulmonary disease, unspecified - Personal history of nicotine dependence - 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 - Allergy status to other drugs, medicaments and biological substances - Epistaxis - Presence of cardiac pacemaker - siene maker (current) use of anticoagulants - Allergy status to sulfonamides 01/02/2022 11:14 [facility] [place] TYPE: Emergency COMPLAINT: - NOSE BLEED DIAGNOSES: - siene maker (current) use of oral hypoglycemic drugs - Other snf (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 - Personal history of nicotine dependence - siene maker (current) use of aspirin - Epistaxis - Presence of coronary angioplasty implant and graft - Allergy status to other drugs, medicaments and biological substances - MCC (current) use of anticoagulants 08/30/2021 15:05 [facility] [place] TYPE: Emergency COMPLAINT: - NOSE BLEED DIAGNOSES: - MCC (current) use of aspirin - siene maker (current) use of oral hypoglycemic drugs - Chronic obstructive pulmonary disease, unspecified - Personal history of nicotine dependence - Other snf (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 - MCC (current) use of anticoagulants - Type 2 diabetes mellitus without complications - Allergy status to other drugs, medicaments and biological substances - Epistaxis INPATIENT VISIT TRACKING (12 MO.) 06/28/2022 13:26 [facility] [place] TYPE: Observation COMPLAINT: - PAROTITIS DIAGNOSES: - Type 2 diabetes mellitus with diabetic chronic kidney disease - MCC (current) use of oral hypoglycemic drugs - Other snf (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 - Allergy status to sulfonamides - MCC (current) use of aspirin - Chronic systolic (congestive) heart failure - Dependence on other enabling machines and devices - Acute sialoadenitis - Contact with and (suspected) exposure to COVID-19 - MCC (current) use of anticoagulants - Chronic kidney disease, stage 3b - Chronic obstructive pulmonary disease, unspecified - Personal history of nicotine dependence - Allergy status to other drugs, medicaments and biological substances 05/15/2022 20:07 [facility] [place] TYPE: Medical Surgical COMPLAINT: - ACUTE HYPOXIC RESPIRATORY FAILURE,RSV DIAGNOSES: - Obstructive sleep apnea (adult) (pediatric) - Type 2 diabetes mellitus with diabetic chronic kidney disease - MCC (current) use of aspirin - Epistaxis - Chronic obstructive pulmonary disease with (acute) exacerbation - Benign prostatic hyperplasia without lower urinary tract symptoms - MCC (current) use of oral hypoglycemic drugs - Presence of right artificial hip joint - Personal history of nicotine dependence - Other snf (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 - siene maker (current) use of oral hypoglycemic drugs - Personal history of urinary calculi - Presence of other heart-valve replacement - Chronic obstructive pulmonary disease with (acute) lower respiratory infection - Allergy status to other drugs, medicaments and biological substances - Presence of other heart-valve replacement - Acute on chronic systolic (congestive) heart failure - Chronic kidney disease, stage 3b - Acute on chronic systolic (congestive) heart failure - Personal history of nicotine dependence - Benign prostatic hyperplasia without lower urinary tract symptoms - Other snf (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 - Adverse effect of anticoagulants, initial encounter - Respiratory syncytial virus as the cause of diseases classified elsewhere - MCC (current) use of anticoagulants - 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 of inflammatory arthritis and tophaceous disease - Chronic obstructive pulmonary disease with (acute) lower respiratory infection - Chronic obstructive pulmonary disease with (acute) exacerbation - Respiratory syncytial virus pneumonia - Contact with and (suspected) exposure to COVID-19 - Adverse effect of anticoagulants, initial encounter - Chronic kidney disease, stage 3b - Allergy status to sulfonamides - MCC (current) use of aspirin - Acute and chronic respiratory failure with hypoxia - Epistaxis - Hemorrhagic disorder due to extrinsic circulating anticoagulants - Allergy status to sulfonamides - Respiratory syncytial virus pneumonia - Presence of right artificial hip joint - Acute and chronic respiratory failure with hypercapnia - Allergy status to other drugs, medicaments and biological substances - Acute kidney failure, unspecified - Presence of cardiac pacemaker - 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 of inflammatory arthritis and tophaceous disease - Type 2 diabetes mellitus with diabetic chronic kidney disease - Obstructive sleep apnea (adult) (pediatric) - Acute and chronic respiratory failure with hypercapnia - Presence of cardiac pacemaker - MCC (current) use of anticoagulants - Contact with and (suspected) exposure to COVID-19 - Acute kidney failure, unspecified - Personal history of urinary calculi - Hemorrhagic disorder due to extrinsic circulating anticoagulants 04/22/2022 18:01 [facility] [place] TYPE: Medical Surgical COMPLAINT: - ACUTE DECOMPENSATED SYSTOLIC HEART FAILURE DIAGNOSES: - Other snf (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 - 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 - Acute on chronic systolic (congestive) heart failure - Contact with and (suspected) exposure to COVID-19 - Influenza due to other identified influenza virus with other respiratory manifestations - siene maker (current) use of aspirin - Type 2 diabetes mellitus with diabetic chronic kidney disease - Hypertensive heart disease with heart failure - Personal history of nicotine dependence - Influenza due to other identified influenza virus with other respiratory manifestations - Presence of cardiac pacemaker - Obstructive sleep apnea (adult) (pediatric) - Obstructive sleep apnea (adult) (pediatric) - 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 of inflammatory arthritis and tophaceous disease - 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 of inflammatory arthritis and tophaceous disease - Personal history of nicotine dependence - Allergy status to sulfonamides - Chronic obstructive pulmonary disease, unspecified - Benign prostatic hyperplasia without lower urinary tract symptoms - Presence of cardiac pacemaker - Chronic kidney disease, stage 3b - Allergy status to other drugs, medicaments and biological substances - Benign prostatic hyperplasia without lower urinary tract symptoms - Chronic obstructive pulmonary disease, unspecified - Allergy status to sulfonamides - Allergy status to other drugs, medicaments and biological substances - Type 2 diabetes mellitus with diabetic chronic kidney disease - siene maker (current) use of aspirin - Contact with and (suspected) exposure to COVID-19 - Chronic kidney disease, stage 3b [email or web address]
--- NOTE | 2022-07-31 03:01 | NUR ---
PATIENT ARRIVED TO THE FLOOR VIA STRETCHER. PATIENT IS A 1PA W/CANE. PATIENT ABLE TO AMBULATE FROM STRETCHER TO STANDING SCALE. STANDING WEIGHT TAKEN AND RECORDED. PATIENTS VITALS TAKEN AND RECORDED. IV FLUSHED AND SL PER ORDER. PATIENT TITRATED TO 1L VIA NC. PATIENT DENIES ANY PAIN OR SOB. PATIENTS ADMISSION COMPLETED. UPDATED PATIENT ON PLAN OF CARE. PATIENT DENIES ANY COMMENTS, QUESTIONS OR CONCERNS. PATIENT DENIES ANY NEEDS. CALL LIGHT IN REACH. PATIENT HAS EDEMA NOTED IN BILAT LOW EXT. BILAT LOW EXTS ARE SCALY AND GABBIE.
--- NOTE | 2022-07-31 04:11 | NUR ---
PATIENT IS RESTING IN BED WITH EYES CLOSED, RR 19. CALL LIGHT IN REACH.
--- NOTE | 2022-07-31 07:24 | NUR ---
Report from Mell Moe RN. Patient sitting awake in bed. Talking on phone. Call light in reach.
[2022-07-31] MEDS ORDERED: NITROFURANTOIN50 MG PO (09:05)
[2022-07-31] MEDS ORDERED: COREG12.5 MG PO (09:08)
--- NOTE | 2022-07-31 10:36 | NUR ---
SITTING UP ON EDGE OF BED. ALERT AND ORIENTED. REMAINS ON ROOM AIR. NO SIGNS OF RESPIRATORY DISTRESS. RESPIRATIONS EVEN AND UNLABORED. REQUESTS PHONE TO CALL KITCHEN AND ORDER LUNCH.
--- NOTE | 2022-07-31 10:44 | NUR ---
PATIENT SITTING UP IN BED. VITALS AND I/O'S COMPLETED. CALL LIGHT WITHIN REACH.
--- NOTE | 2022-07-31 11:41 | NUR ---
MED REC COMPLETE
--- NOTE | 2022-07-31 14:06 | NUR ---
PATIENT IN BED AFTER MEAL. VITALS AND I/O'S COMPLETED. CALL LIGHT WITHIN REACH. BED ALARM ON.
--- NOTE | 2022-07-31 14:31 | NUR ---
Standby assist to bathroom. States he needs to have a BM.
--- NOTE | 2022-07-31 19:10 | NUR ---
REPORT RECEIVED FROM GINGER PARKS. PT SITTING UP IN BED TALKING ON PHONE. PT REPORTS NO NEEDS AT THIS TIME. CALL LIGHT IN REACH.
--- NOTE | 2022-07-31 20:45 | NUR ---
IN TO ADMINISTER MEDICATIONS, SEE MAR. PT TAKES PO MEDICATION WITH NO ISSUES. VITALS COMPLETE. ASSESSMENT COMPLETE. LUNG SOUNDS CLEAR. BOWEL TONES ACTIVE. HEART TONES IRREGULAR. PT DENIES PAIN AT THIS TIME. EDEMA NOTED TO BLE. BLE GABBIE. PT REQUESTING RT TO COME LOOK AT CPAP PT STATES "THE SETTINGS ARE NOT RIGHT." RT CALLED. PT DENIES ANY OTHER NEEDS AT THIS TIME. CALL LIGHT IN REACH. BED ALARM ON.
--- NOTE | 2022-08-01 00:15 | NUR ---
IN TO ANSWER BED ALARM. UPON ENTERING ROOM PT IS NOTED TO BE OUT OF BED AND IN THE RESTROOM ON THE TOILET. INFORMED PT TO USE CALL LIGHT WHEN HE NEEDS TO GET UP AND USE THE RESTROOM SO THAT THIS RN OR ANOTHER RN CAN ASSIST HIM TO RESTROOM. EDUCATED PT KITCHEN DESIGNER LIGHT USE. SBA WITH CANE BACK TO BED. PT PLACES CPAP ON. PT DENIES ANY OTHER NEEDS AT THIS TIME. CALL LIGHT IN REACH. BED ALARM ON.
--- NOTE | 2022-08-01 00:48 | NUR ---
IN BED ALARM ALARMING. PT LAYING IN BED AND STATES "I DID NOT GET UP, I JUST MOVED IN BED." PT LOOKING FOR CLIP ON CPAP. GINGER RAHMAN SHOWED PT THE CPAP CLIP WAS STILL ATTACHED. PT STATES "OH, THANK YOU." PT DENIES ANY OTHER NEEDS AT THIS TIME. CALL LIGHT IN REACH. BED ALARM ON.
--- NOTE | 2022-08-01 02:23 | NUR ---
IN TO ANSWER CALL LIGHT. PT REQUESTING TO USE URINAL. PT STANDS AT BEDSIDE AND USES URINAL WITH NO ISSUES. I&Os COMPLETE. ASSESSMENT COMPLETE. LUNG SOUNDS CLEAR IN RUL, MC AND RLL. DIMINISHED IN LLL. BOWEL TONES ACTIVE. HEART TONES IRREGULAR. PT DENIES ANY OTHER NEEDS AT THIS TIME. CALL LIGHT IN REACH. BED ALARM ON. PT RESTING IN BED WITH EYES CLOSED, CPAP ON. RR EVEN AND UNLABORED.
--- NOTE | 2022-08-01 05:53 | NUR ---
IN TO ROUND ON PT. PT LAYING IN BED WITH EYES CLOSED. CPAP ON, RR EVEN AND UNLABORED. PT AWAKENS WHEN ADDRESSED. VITALS AND I&Os COMPLETE. MEDICATION ADMINISTERED, SEE MAR. PT TAKES PO MEDICATION WITH NO ISSUES. PT REQUESTING TO TURN LIGHTS, LIGHTS TURNED ON. PROVIDED PT TV REMOTE. AUDIBLE WHEEZING NOTED. OFFERED PT BREATHING TX. PT ACCEPTS. RT CALLED. PT DENIES ANY OTHER NEEDS AT THIS TIME. CALL LIGHT IN REACH. BED ALARM ON.
--- NOTE | 2022-08-01 07:16 | NUR ---
RECEIVED REPORT FROM KNOWLEDGE MANAGEMENT ADVISOR NURSE ALEJA. PT UP TO THE RESTROOM AND TO COMB HIS HAIR WITH HIS WALKER. DENIES ANY OTHER CARES AT THIS TIME.
[2022-08-01] MEDS ORDERED: WARFARIN SODIUM10 MG PO (08:01)
--- NOTE | 2022-08-01 08:03 | NUR ---
PATIENT PROVIDED WITH AM CARE SUPPLIES AND WASHCLOTH. PATIENT UP TO BATHROOM TO DO A SPIT BATH AND AM CARE, IND. WITH CANE. PATIENT NOW BACK TO SITTING ON EDGE OF BED WAITING FOR BREAKFAST. CALL LIGHT IN REACH. NO FURTHER NEEDS AT THIS TIME.
--- NOTE | 2022-08-01 12:58 | NUR ---
CONNECTED WITH PT HE WAS HEADING OUT FOR DC IN WC-ESCORTED BY GINGER SINHA. GAVE ENCOURAGEMENT AND BLESSING
== END 2022-08-01 11:25 | disposition home or self-care (01) ==
LOC: ED 22:05 → MS 22:06
PROVIDERS: ADMIT Internal Medicine; ATTEND Internal Medicine
DX: I50.23 Acute on chronic systolic (congestive) heart failure (principal); J44.9 Chronic obstructive pulmonary disease, unspecified; G47.33 Obstructive sleep apnea (adult) (pediatric); N18.32 Chronic kidney disease, stage 3b; N40.0 Benign prostatic hyperplasia without lower urinary tract symptoms; E11.22 Type 2 diabetes mellitus with diabetic chronic kidney disease; E79.0 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 of inflammatory arthritis and tophaceous disease; Z20.822 Contact with and (suspected) exposure to COVID-19; Z88.8 Allergy status to other drugs, medicaments and biological substances; Z88.2 Allergy status to sulfonamides; N17.9 Acute kidney failure, unspecified; Z95.0 Presence of cardiac pacemaker; N20.0 Calculus of kidney; N40.1 Benign prostatic hyperplasia with lower urinary tract symptoms; N39.498 Other specified urinary incontinence; H33.20 Serous retinal detachment, unspecified eye; Z79.84 Long term (current) use of oral hypoglycemic drugs
CPT/HCPCS: 36415; 71045; 80048; 80053; 82803; 83880; 84484; 85025; 85610; 87502; 94640; 94760; 96374; 96376; 99285-25; A9270; G0378; J1815; J1940; U0003

== ENCOUNTER 2022-08-10 15:55 | Inpatient (IN) | payer MEDICARE ==
[~2022-08-10] VITALS: Ht 182.9 cm; Wt 113.9 kg
[~2022-08-10 15:55] MED LIST changes: +COREG12.5 MG PO
--- OUTSIDE RECORDS SUMMARY | 2022-08-10 15:58 | XMS ---
PreManage Notification: DENISE VENTURA Security Micropaleontologist Events No recent Security Events currently on file CRITERIA MET - 6 ED Visits in 6 Months - Group Notification - [facility] - 2 Visits in 30 Days CARE PROVIDERS MED [facility] Family [facility] 01/08/2018-Current PHONE: Unknown SUSAN SALDANA [facility] Current PHONE: [phone] Tonya has no Care Guidelines for this patient. EUrszula VISIT COUNT (12 MO.) [address] [place] [address] TOTAL 16 NOTE: Visits indicate total known visits. ED/UCC VISIT TRACKING (12 MO.) 08/10/2022 15:[address] [facility] [place] TYPE: Emergency COMPLAINT: - SHORTNESS OF BREATH 07/30/2022 22:05 [facility] [place] TYPE: Emergency COMPLAINT: - SOB 07/17/2022 18:26 [facility] [place] TYPE: Emergency COMPLAINT: - SOB DIAGNOSES: - Heart failure, unspecified - snf (current) use of anticoagulants - Shortness of breath - Personal history of nicotine dependence - Allergy status to other drugs, medicaments and biological substances - intermediate designer (current) use of aspirin - Type 2 diabetes mellitus without complications - Allergy status to other antibiotic agents - snf (current) use of oral hypoglycemic drugs - Chronic obstructive pulmonary disease, unspecified - Other tank terminal gauger (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 - Contact with and (suspected) exposure to COVID-19 - Allergy status to sulfonamides 07/12/2022 21:25 [facility] [place] TYPE: Emergency COMPLAINT: - NOSE BLEED DIAGNOSES: - Epistaxis - Allergy status to other drugs, medicaments and biological substances - intermediate designer (current) use of oral hypoglycemic drugs - Allergy status to sulfonamides - Chronic obstructive pulmonary disease, unspecified - Personal history of nicotine dependence - snf (current) use of anticoagulants - Other tank terminal gauger (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 - snf (current) use of aspirin - Type 2 diabetes mellitus without complications 06/26/2022 23:28 [facility] [place] TYPE: Emergency COMPLAINT: - NECK SWELLING DIAGNOSES: - Other tank terminal gauger (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 - snf (current) use of aspirin - Allergy status to other drugs, medicaments and biological substances - Chronic obstructive pulmonary disease, unspecified - snf (current) use of anticoagulants - Type 2 diabetes mellitus without complications - snf (current) use of oral hypoglycemic drugs - Allergy status to sulfonamides - Localized swelling, mass and lump, neck - Personal history of nicotine dependence - Acute sialoadenitis 05/15/2022 17:02 [facility] [place] TYPE: Emergency COMPLAINT: - SHORTNESS OF BREATH 05/15/2022 03:16 [facility] [place] TYPE: Emergency COMPLAINT: - NOSE BLEED DIAGNOSES: - snf (current) use of oral hypoglycemic drugs - Presence of cardiac pacemaker - Allergy status to other drugs, medicaments and biological substances - Other jail (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 - Abnormal coagulation profile - intermediate designer (current) use of anticoagulants - Chronic obstructive pulmonary disease, unspecified - Epistaxis - intermediate designer (current) use of aspirin - Personal history of nicotine dependence - Allergy status to sulfonamides - Personal history of urinary calculi - Type 2 diabetes mellitus without complications 04/22/2022 12:57 [facility] [place] TYPE: Emergency COMPLAINT: - SOB, WHEEZING 04/15/2022 21:05 [facility] [place] TYPE: Emergency COMPLAINT: - FALL/ KNEE PAIN DIAGNOSES: - intermediate designer (current) use of oral hypoglycemic drugs - Type 2 diabetes mellitus without complications - Personal history of nicotine dependence - Laceration without foreign body, left knee, initial encounter - intermediate designer (current) use of anticoagulants - Personal history of urinary calculi - Chronic obstructive pulmonary disease, unspecified - Other jail (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 - Unspecified fall, initial encounter - Allergy status to other drugs, medicaments and biological substances - snf (current) use of aspirin 03/27/2022 15:41 [facility] [place] TYPE: Emergency COMPLAINT: - NOSE BLEED DIAGNOSES: - Type 2 diabetes mellitus without complications - Epistaxis - Allergy status to other drugs, medicaments and biological substances - Personal history of nicotine dependence - snf (current) use of oral hypoglycemic drugs - Allergy status to sulfonamides - Personal history of urinary calculi - Other jail (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 - Chronic obstructive pulmonary disease, unspecified - snf (current) use of anticoagulants - intermediate designer (current) use of aspirin 03/05/2022 13:50 [facility] [place] TYPE: Emergency COMPLAINT: - NOSE BLEED DIAGNOSES: - Epistaxis - Personal history of nicotine dependence - Chronic obstructive pulmonary disease, unspecified - Allergy status to sulfonamides - Type 2 diabetes mellitus without complications - snf (current) use of oral hypoglycemic drugs - Allergy status to other drugs, medicaments and biological substances - intermediate designer (current) use of anticoagulants - Other tank terminal gauger (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 03/04/2022 20:59 [facility] [place] TYPE: Emergency COMPLAINT: - NOSE BLEED DIAGNOSES: - snf (current) use of anticoagulants - Other jail (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 - Chronic obstructive pulmonary disease, unspecified - Type 2 diabetes mellitus without complications - Allergy status to sulfonamides - snf (current) use of aspirin - Allergy status to other drugs, medicaments and biological substances - intermediate designer (current) use of oral hypoglycemic drugs - Epistaxis 03/01/2022 04:26 [facility] [place] TYPE: Emergency COMPLAINT: - NOSE BLEED DIAGNOSES: - snf (current) use of anticoagulants - Epistaxis - Personal history of nicotine dependence - Type 2 diabetes mellitus without complications - Allergy status to other drugs, medicaments and biological substances - Chronic obstructive pulmonary disease, unspecified - intermediate designer (current) use of aspirin - Other tank terminal gauger (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 - intermediate designer (current) use of oral hypoglycemic drugs - Allergy status to sulfonamides 02/28/2022 05:47 [facility] [place] TYPE: Emergency COMPLAINT: - BLOODY NOSE 1 HOUR DIAGNOSES: - intermediate designer (current) use of oral hypoglycemic drugs - Chronic obstructive pulmonary disease, unspecified - Personal history of nicotine dependence - Other tank terminal gauger (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 - Allergy status to other drugs, medicaments and biological substances - Epistaxis - Presence of cardiac pacemaker - intermediate designer (current) use of anticoagulants - Allergy status to sulfonamides - Type 2 diabetes mellitus without complications 01/02/2022 11:14 [facility] [place] TYPE: Emergency COMPLAINT: - NOSE BLEED DIAGNOSES: - Other jail (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 - Personal history of nicotine dependence - intermediate designer (current) use of aspirin - Epistaxis - Presence of coronary angioplasty implant and graft - Allergy status to other drugs, medicaments and biological substances - snf (current) use of anticoagulants - intermediate designer (current) use of oral hypoglycemic drugs 08/30/2021 15:05 [facility] TYPE: Emergency COMPLAINT: - NOSE BLEED DIAGNOSES: - intermediate designer (current) use of oral hypoglycemic drugs - Chronic obstructive pulmonary disease, unspecified - Personal history of nicotine dependence - Other jail (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 - intermediate designer (current) use of anticoagulants - Type 2 diabetes mellitus without complications - Allergy status to other drugs, medicaments and biological substances - Epistaxis - intermediate designer (current) use of aspirin INPATIENT VISIT TRACKING (12 MO.) 07/30/2022 22:06 [facility] [place] TYPE: Observation COMPLAINT: - ACUTE ON CHRONIC SYSTOLIC CONGESTIVE HEART FAILURE DIAGNOSES: - Presence of cardiac pacemaker - Type 2 diabetes mellitus with diabetic chronic kidney disease - Acute kidney failure, unspecified - Chronic obstructive pulmonary disease, unspecified - Contact with and (suspected) exposure to COVID-19 - 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 of inflammatory arthritis and tophaceous disease - snf (current) use of oral hypoglycemic drugs - Acute on chronic systolic (congestive) heart failure - Allergy status to sulfonamides - Chronic kidney disease, stage 3b - Benign prostatic hyperplasia with lower urinary tract symptoms - Obstructive sleep apnea (adult) (pediatric) - Benign prostatic hyperplasia without lower urinary tract symptoms - Serous retinal detachment, unspecified eye - Other specified urinary incontinence - Calculus of kidney - Allergy status to other drugs, medicaments and biological substances 06/28/2022 13:26 [facility] [place] TYPE: Observation COMPLAINT: - PAROTITIS DIAGNOSES: - snf (current) use of oral hypoglycemic drugs - Other jail (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 - Allergy status to sulfonamides - intermediate designer (current) use of aspirin - Chronic systolic (congestive) heart failure - Dependence on other enabling machines and devices - Acute sialoadenitis - Contact with and (suspected) exposure to COVID-19 - intermediate designer (current) use of anticoagulants - Chronic kidney disease, stage 3b - Chronic obstructive pulmonary disease, unspecified - Personal history of nicotine dependence - Allergy status to other drugs, medicaments and biological substances - Type 2 diabetes mellitus with diabetic chronic kidney disease 05/15/2022 20:[address] [facility] [place] TYPE: Medical Surgical COMPLAINT: - ACUTE HYPOXIC RESPIRATORY FAILURE,RSV DIAGNOSES: - Benign prostatic hyperplasia without lower urinary tract symptoms - Epistaxis - Chronic obstructive pulmonary disease with (acute) exacerbation - Personal history of nicotine dependence - Other tank terminal gauger (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 - snf (current) use of oral hypoglycemic drugs - Presence of right artificial hip joint - Presence of other heart-valve replacement - intermediate designer (current) use of oral hypoglycemic drugs - [...] without lower urinary tract symptoms - Other tank terminal gauger (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 - 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 of inflammatory arthritis and tophaceous disease - Chronic obstructive pulmonary disease with (acute) lower respiratory infection - intermediate designer (current) use of anticoagulants - Contact with and (suspected) exposure to COVID-19 - Chronic obstructive pulmonary disease with (acute) exacerbation - Respiratory syncytial virus pneumonia - Allergy status to sulfonamides - intermediate designer (current) use of aspirin - Adverse effect [...] COVID-19 - Presence of cardiac pacemaker - snf (current) use of anticoagulants - Hemorrhagic disorder due to extrinsic circulating anticoagulants - Acute kidney failure, unspecified - Personal history of urinary calculi - Type 2 diabetes mellitus with diabetic chronic kidney disease - snf (current) use of aspirin - Obstructive sleep apnea (adult) (pediatric) 04/22/2022 18:01 [facility] [place] TYPE: Medical Surgical COMPLAINT: - ACUTE DECOMPENSATED SYSTOLIC HEART FAILURE DIAGNOSES: - Contact with and (suspected) exposure to COVID-19 - Acute on chronic systolic (congestive) heart failure - Influenza due to other identified influenza virus with other respiratory manifestations - snf (current) use of aspirin - Hypertensive heart [...] and (suspected) exposure to COVID-19 - intermediate designer (current) use of aspirin - Chronic kidney disease, stage 3b - Other tank terminal gauger (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 - Other jail (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 [email or web address]
--- NOTE | 2022-08-10 18:05 | EKG ---
[facility] [address] [place] [address] Signed Ventricular-paced rhythm with frequent premature ventricular complexes Abnormal ECG v5 artifact When compared with ECG of 17-JUL-2022 18:28, Vent. rate has increased BY 4 BPM Confirmed by Flory Parra MD () on 08/10/2022 6:05:34 PM Electronically Signed By: FLORY PARRA MD 08/10/22 1805 PATIENT NAME: DENISE VENTURA Electrocardiogram DATE OF : 37 PHYSICIAN: FLORY PARRA MD REPORT #: [id number] REPORT IS CONFIDENTIAL AND NOT TO BE RELEASED WITHOUT AUTHORIZATION
[2022-08-11] MEDS ORDERED: FARXIGA10 MG PO (08:25)
== END 2022-08-16 14:45 | disposition home or self-care (01) | DRG 292 ==
LOC: ED 15:55 → MS 15:57
PROVIDERS: ADMIT Family Medicine; ATTEND Internal Medicine
DX: I50.23 Acute on chronic systolic (congestive) heart failure (principal); N17.9 Acute kidney failure, unspecified; Z20.822 Contact with and (suspected) exposure to COVID-19; E11.9 Type 2 diabetes mellitus without complications; J44.9 Chronic obstructive pulmonary disease, unspecified; Z87.891 Personal history of nicotine dependence; Z95.5 Presence of coronary angioplasty implant and graft; Z98.890 Other specified postprocedural states; Z95.4 Presence of other heart-valve replacement; Z88.2 Allergy status to sulfonamides; Z88.8 Allergy status to other drugs, medicaments and biological substances; Z79.01 Long term (current) use of anticoagulants; Z79.82 Long term (current) use of aspirin; Z79.84 Long term (current) use of oral hypoglycemic drugs; Z79.890 Hormone replacement therapy; Z79.899 Other long term (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
CPT/HCPCS: 36415; 80048; 80053; 83735; 83880; 84100; 85025; 85610; 93005; 93010; 93306; 94640; 94660; 94760; 94761; 94762; 97110; 97116; 97162; 97165; 97530; 97535; A9270; J1815; J1940; U0003

== ENCOUNTER 2022-11-15 15:32 | Observation (INO) | payer MEDICARE ==
[~2022-11-15] VITALS: Ht 182.9 cm; Wt 118.6 kg
[~2022-11-15 15:32] MED LIST changes: +FARXIGA10 MG PO
[2022-11-15 18:31] VITALS: BP 117/56
[2022-11-15] MEDS ORDERED: HYDRALAZINE HCL10 MG PO (18:52)
[2022-11-15] MEDS ORDERED: ISOSORBIDE DINI10 MG PO (18:52)
--- NOTE | 2022-11-15 18:58 | NUR ---
PT TRANSFERRED TO UNIT FROM ED. PT IS A/O, ABLE TO TRANSFER SELF FROM STRETCHER TO BED. PT IS ON TELE AND CONTINUOUS SPO2. CALL LIGHT WITHIN REACH.
--- NOTE | 2022-11-15 19:05 | NUR ---
shift report received from dayshift katarzyna chery at bedside, pt awake and resting in bed. tele and cpox in place, spo2 in the low 90's, no distress noted. bed alarm on for safety. call light in reach. pt deneis needs or concerns. will continue to monitor.
--- NOTE | 2022-11-15 21:30 | NUR ---
ASSESSMENT COMPLETE, SCHEDULED MEDS GIVEN-SEE EMAR. pt TOLERATED MEDS WELL, NO ISSUES. IV SITE WNL, SALINE LOCKED. FLOAT RN IN ROOM TO ASSISST pt WITH USING URINAL.
[2022-11-15 21:31] VITALS: BP 109/56
--- NOTE | 2022-11-15 21:56 | NUR ---
PATIENT ASSISTED TO STAND AT THE BEDSIDE TO USE URINAL. PATIENT ABLE TO VOID. PATIENT IS BACK IN BED RESTING. BIPAP PLACED BACK ON PATIENT. PATIENT DENIES ANY FURTHER NEEDS. CALL LIGHT IN REACH. BED ALARM ON FOR SAFETY.
[2022-11-16 01:06] VITALS: BP 108/57
--- NOTE | 2022-11-16 01:12 | NUR ---
CALL LIGHT ANSWERED. PT UP TO SIDE OF BED TO VOID 100 ML CLEAR YELLOW URINE WITH 2PA. INCREASED SOB WITH ACTIVITY. SpO2 89-92% ON RA. PT INCONTINENT OF URINE. CLEAN BRIEF PROVIDED. BACK TO BED, BALBIR FAIR. HOB ELEVATED. VS AND I&O OBTAINED. SIPS OF WATER PROVIDED. BIPAP IN PLACE. BED ALARM FOR SAFETY. CALL LIGHT IN REACH.
--- NOTE | 2022-11-16 02:04 | NUR ---
ROUNDED ON pt, pt RESTING IN BED WITH EYES CLOSED. BIPAP IN PLACE, SETTINGS 14/11 21%O2. RR EVEN AND UNLABORED, NO DISTRESS NOTED. CALL LIGHT IN REACH. BED ALARM ON FOR SAFETY.
--- NOTE | 2022-11-16 02:30 | NUR ---
ASSESSMENT COMPLETE, NO ACUTE CHANGES. SPO2 93% ON BIPAP-SETTINGS UNCHANGED. HR WNL, TELE PACED RHYTHM. BED ALARM ON AND CALL LIGHT IN REACH.
--- NOTE | 2022-11-16 03:29 | NUR ---
pt RESTING IN BED WITH EYES CLOSED, ON BIPAP. RR EVEN AND UNLABORED, NO DISTRESS NOTED. SPO2 92%, HR 70'S, PACED RHYTHM. NO DISTRESS NOTED. CALL LIGHT IN REACH.
--- NOTE | 2022-11-16 03:43 | NUR ---
SPO2 SENSOR FOUND SOMEWHAT OFF OF pt, THIS RN IN ROOM TO ASSIST. pt AWOKE TO VOICE, SPO2 SENSOR BACK IN PLACE, SPO2 WNL. pt DENIES NEEDS OR CONCERNS. BIPAP REMAINS IN PLACE. CALL LIGHT IN REACH AND BED ALARM ON FOR SAFETY.
[2022-11-16 04:16] VITALS: BP 120/67
--- NOTE | 2022-11-16 04:24 | NUR ---
bipap alarming, pt removed mask and requested need with urinal. assistance provided, pt also heavily incontinent of urine. dariela care done and new briefs in place. pt back in bed, vss. no reddness to coccyx or buttocks noted. bed alarm resumed and call light in reach. bipap resumed. no additional needs or concerns verbalized.
--- NOTE | 2022-11-16 05:47 | NUR ---
SYSTEMS SOFTWARE SPECIALIST OUT OF ROOM. pt REQUESTING BIPAP MASK BE REMOVED. SPO2 95% ON RA. CALL LIGHT AND PERSONAL SUPPLIES IN REACH. BED ALARM ON.
--- NOTE | 2022-11-16 06:05 | NUR ---
pt ASSISTED TO STAND AT SIDE OF BED FOR VOID. INCONTINENCE IN ATTENDS. ATTENDS CHANGED. STANDING WEIGHT 118.9 KG. pt BACK IN BED. CUP OF ICE PROVIDED. BED ALARM ON.
--- NOTE | 2022-11-16 07:37 | NUR ---
REPORT RECEIVED FROM GINGER AWAN. THIS RN TO ROOM WITH DR. LYNN FOR ROUNDS. PT UPDATED ON PLAN OF CARE AND STATES HIS QUESTIONS HAVE BEEN ANSWERED. ORDERS GIVEN TO BLADDER SCAN PT TO ASSIST FOR URINARY RETENTION. PT DENIES NEED TO VOID AT THIS TIME. PT DENIES PAIN AND NASUEA. TELEMETRY MONITORING IN PLACE WITH PACED RYTHEM IN THE 70'S. NO ADDITIONAL NEEDS AT THIS TIME. CALL LIGHT WITHIN REACH. BED RAILS UP.
--- NOTE | 2022-11-16 08:40 | NUR ---
SPOKE TO PATIENT ABOUT THE DISCHARGE, PATIENT PLANS TO GO HOME TO HIS HOUSE. PATIENT OWNS HIS OWN HOUSE AND LIVES WITH HIS . PATIENT HAS 2 SONS THAT CAN HELP NEEDED. PATIENT CAN DO HIS ADLS WITH HIS WIFES HELP. PATIENT STILL DRIVES WHEN NEEDED. PATIENT WEARS A CPAP AT NIGHT AND USES A WALKER AND CANE. PATIENT ALSO HAS A WHEELCHAIR TO USE IF NEEDED. PATIENT HAS GRAB BARS WITHOUT THE HOUSE TO HELP PREVENT FALLS. PATIENT STATES HE HAS A OLD PACER THAT NO LONGER WORKS. PATIENT STATES HE IS TIRED OF GETTING SICK. PATIENT DEMOGRATHICS ARE CORRECT IN THE MEDICAL RECORDS. PATIENT STATES THERE ARE NO CONCRETE TRUCK DRIVER ISSUES OR CONCERNS AT THIS TIME. CONCRETE TRUCK DRIVER WILL FOLLOW THE PATIENT CLOSELY FOR ANY NEW ISSUES OR CONCERNS THAT COME UP.
--- NOTE | 2022-11-16 09:00 | NUR ---
MORNING ASSESSMENT AND MEDICATION DUE. PT FINISHED WORKING WITH PHYSICAL THERAPY. PT UP TO CHAIR WITH PHYSICAL THERPAY WHO STATES PT CAN MOVE WITH CONTACT GUARD ASSIST AND FWW. BMAT LEVEL 3. PT DENIES PAIN AND NASUEA. PT ALERT AND OREINTED TO ALL. EXOPTHALMUS SEEN IN EYES. LUNG SOUNDS CLEAR. NO COUGH SEEN. OXGYEN SATUATION OF 94-97% ON ROOM AIR. CPOX REMAINS IN PLACE ON TELEMETRY MONITORING. PACED RYTHEM SEEN ON MONITOR, REGULAR WITH RATE IN THE 70'S. WEAK PULSES IN BLE. WRAPS OVER BLE REMAIN IN PLACE, DR LARSON STATES OK TO LEAVE IN PLACE. 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 +1 EDEMA IN BLE, PT REPORTS "THOSE WRAPS HELP WITH THE SWELLING." MD REQUESTS CONDOM CATHETER BE PLACED TO ASSIST WITH RECORDING URINE VOLUMES. PLACED PER PROTOCOL. NOTED THAT FORSKIN DOES NOT MOVE BACK OVER PIENIAL HEAD. PT REPROTS "OH, YEAH, THAT'S FAR IT GOES ANYMORE. IT NEVER GOES ALL THE WAY. 1CM SKIN TEAR SEEN ON LEFT HAND, RIGHT FORARM AND RIGHT HAND. PHOTOGRAPHS TAKEN. ALLEVYN APPLIED TO EACH. SCAB SEEN ON LEFT KNEE, INTACT. PT REMAINS UP TO CHAIR. EATING BREAKFAST. NO ADDITIONAL REQUESTS OR COMPLAINTS. CALL LIGHT WITHIN REACH. PTS LEAD DEVELOPER AT BEDSIDE VISITING.
[2022-11-16 09:24] VITALS: BP 117/63
--- NOTE | 2022-11-16 10:01 | NUR ---
THIS RN TO ROOM TO CHECK ON PT. PTS LEAD SOFTWARE QA ENGINEER LEAVING. PT REMAINS UP TO CHAIR. PT CHEEFUL AND CONTINUES TO DENY PAIN AND NAUSEA. PT REPORTS HE IS "BREATHING BETTER TODAY." PT DENIES ADDITIONAL REQUESTS OR COMPLAINTS. CALL LIGHT NAZ ALARCON. BED RAILS UP.
--- NOTE | 2022-11-16 10:49 | NUR ---
PTS OXGYEN SATURATIONS DROPING TO 84%. PT SEEN SLEEPING IN CHAIR WITH CHIN DROPPED, SLEEP APNEA NOTED. PT WOKEN AND OXGYEN SATURATIONS CLIMB TO 96% ON ROOM AIR. SUGGESTED TO PT TO WEAR HIS CPAP WHILE NAPPING. PT AGREES. PTS HOME CPAP NOT YET AT BEDSIDE, PT PLACED ON BIPAP WITH 14 OVER 11 AND 21% FIO2. PT RETURNS TO RESTING WITH EYES CLOSED. NO ADDITIONAL REQUESTS OR COMPLAINTS. CALL LIGHT WITHIN REACH. OXGYEN SATURATIONS 94-97% HEART RATE 70 IN PACED RYTHEM.
--- NOTE | 2022-11-16 10:54 | NUR ---
Certified Heart Failure Nurse Notes: Diagnosis:Heart Failure Exacerbation Chemical Maker: Dr Hylton PCP: Dr Mehta Today s Wt.: 265lb Admit Pro BNP: [id number] Social support system:lives with spouse. is room during Zones symptom management and reinforcing low sodium diet. Scale present in home. Transportation mode:Patient still drives Diet: Continues to eat out daily for lunch. Medication routine: denies missed medications Has been counseled on minimizing/avoiding use of NSAIDs Tobacco:Former smoker Advanced directive: AT last visit, the patient stated he had one. Attempted discussion on goals but the patient wasn t receptive. Patient states he is not going to . Vaccination status: Per patient is up to date. Patient and his spouse do not recall that the heart failure written materials were given to them or our past discussions. Patient is unable to stay focused with a noticeable tangential speech pattern. He is not asking questions concerning self-care. Teaching materials given today: [facility] Heart Failure bundle folder-[facility] My Action Plan Living Well with Heart Failure book, Daily weight and symptom monitoring log, Zones magnet, [facility] contact information. Had been given a Low Sodium Shopping list. Lower sodium dining list during August visit. Follow-up plans: Patient agrees to receive a follow up call from this service. Patient and would be welcome for [facility] complimentary outpatient heart failure session.
--- NOTE | 2022-11-16 11:21 | NUR ---
PT CALL LIGHT ON. PT REPORTS HE IS DONE WITH HIS NAP. BIPAP REMOVED. PTS BROUGHT PTS HOME MEDICATIONS. MEDICATIONS REVIEWED BY DR. LARSON AND CLAUDIA (PHARMACIST). PT DENIES PAIN AND NASUEA. CONDOM CATH REMAINS IN PLACE AND IS WORKING WELL. PT STATES "LOOK, I CAN'T EVEN FEEL THAT I'M PEEING AND ITS JUST IN THE TUBE." CREDIT ADVISOR TO BEDSIDE AND VISITING WITH PT. PT DENIES ADDITIONAL REQUESTS OR COMPLAINTS. CALL LIGHT NAZ REACH. OXGYEN SATURATION OF 94-97% ON ROOM AIR.
--- NOTE | 2022-11-16 12:15 | NUR ---
LUNCH DELIVERED TO PT. PT REMAINS UP TO CHAIR. PT DENIES PAIN AND NAUSEA. CONDOM CATHETER REMAINS IN PLACE. RESPIRAITONS EVEN AND UNALBORED. OXGYEN SATUATION 95% ON ROOM AIR. TELMETRY MONTIORING REMAINS IN PACED RYTHEM WITH RATE OF 73. PT DENIES ADDITIONAL REQUESTS OR COMPLAINTS. CALL LIGHT WITHIN REACH.
[2022-11-16] MEDS ORDERED: OMEPRAZOLE20 MG PO (12:16)
--- NOTE | 2022-11-16 13:26 | NUR ---
PT ALERT, ORIENTED AND SITTING IN CHAIR. PT MENTIONED THAT HIS RETAIL STOCK CLERK HAD BEEN BY THIS MORNING, VERY THANKFUL FOR HER VISIT. PT NEEDED TO TALK, VISITED ABOUT HIS BANKING CAREER. GOOD VISIT, PT REQUESTED PRAYER, LEFT G.POST AND BLESSING.
[2022-11-16 13:40] VITALS: BP 121/67
--- NOTE | 2022-11-16 13:40 | NUR ---
AFTERNOON ASSESSMENT DUE. PT REMAINS UP TO CHAIR. PT ALERT AND ORIENTED TO ALL ALTHOUGH PT REPORTS FEELING DROWSY. EXOPTHLAMUS UNCHANGED. PT UPDATED ON PLAN OF CARE AND ECHOCARDIO GRAM SCHEDULED FOR THIS AFTERNOON. 1 PERSON ASSIST WITH FWW BACK TO BED FOR SCAN. PT IMPULSIVE BUT ABLE TO TRANSFER WITH MIMINAML ASSIST. LUNG SOUNDS CLEAR. RR 20 WITH REST, UP TO 32 WITH ACTIVITY, PT REPORTS SHORTNESS OF BREATH WITH GETTING BACK TO BED. PT REPORTS HE FEES "STRONGER TODAY." BILATERAL LOWER EXTREMITIY EDEMA UNCHNAGED. NEUROPATHY UNCHANGED. CONDOM CATHETER REMAINS IN PLACE, WORKIGN EFFECTIVELY FOR PT. 750ML REMOVED FROM CANISTER AT THIS TIME. DRY DEPENDS IN PLACE. ALLEVYNS REMAIN IN PLACE. PT TALKING WITH HIS SON ON THE PHONE. PT ACCURATLY DESCRIBES PLAN OF CARE AND HIS STATUS. PTS SON UPDATED BY THIS RN PER PT'S REQUEST. PTS ARRIVED TO BEDSIDE, ALSO UPDATED ON PLAN OF CARE. PTS HOME MEDICATIONS RETURNED TO WHO WILL BRING THEM HOME. NO ADDITIONAL NEEDS AT THIS TIME, CALL LIGHT WITHIN REACH. BED RAILS UP.
--- NOTE | 2022-11-16 14:05 | NUR ---
DR. LARSON UPDATED ON PT ASSESSMENT, OUTPUT, AND STATUS. NO NEW ORDERS AT THIS TIME, STATES HE WILL ADJUST DIURETIC DOSES. PT CONTINUES RESTING IN BED, AWAITING ECHOCARDIOGRAM. PTS REMAINS AT BEDSIDE. OXGYEN SATUARTION 94% ON ROOM AIR. NO ADDITIONAL REQUESTS OR COMPLAINTS. CALL LIGHT WITHIN REACH. BED RAILS UP.
--- NOTE | 2022-11-16 14:22 | NUR ---
NEW MEDICATION ORDERS GIVEN. ECHO TECHNITIAN TO BEDSIDE FOR IMAGING. PT DENIES ADDITIONAL REQUESTS OR COMPLAINTS. CALL LIGHT WIHTIN REACH. BED RAILS UP.
--- NOTE | 2022-11-16 15:32 | NUR ---
PT HERE FOR CHF EXACERBATION. PT UP TO CHAIR AND WITH PHYSICAL THERAPY WITH STAND BY ASSIST AND FWW. PT TOLERATING 2 GM SODIUM DIET AND 2000ML FLUID RESTRICTION WITH GOOD APPITTIE. DAILY WEIGHT TAKEN, IV LASIX AND ORAL TORISMIDE GIVEN. CONDOM CATH PLACED WITH GOOD EFFECT, PT VOIDING WELL. TELEMETRY MONITORING REMAINS IN PLACE WITH PACED RYTHEM IN THE 70'S SEEN ON MONITOR. CPOXIN PLACE. PT TOELRATES ROOM AIR WHILE AWAKEN, NEEDS HOME CPAP WHILE RESTING TO MAINTAING OXYGEN SATUATIONS. PT SHORT OF BREATH WITH ACTIVITY BUT OTHERWISE REPORTS IMPROVED WORK OF BREATHING. ECHO SCHEDULED THIS SHIFT, UNNEEDED PT HAD AN ECHO IN AUGUST. +1 EDEMA IN BILATERAL LOWER EXTREMITIES. PT HAS COMPRESSION LEG WRAPS IN PLACE OVER BLE. ALLEVYNS APPLIED TO SKIN TEARS OVER HANDS AND RIGHT FORARM. PHOTOGRAPHS TAKEN. PT USESE CALL LIGHT AND MAKES NEEDS KNOWN.
--- NOTE | 2022-11-16 15:48 | NUR ---
HOURLY ROUNDING: PT UP TO CHAIR, TALKING TO ON PHONE. PT DENIES PAIN AND NAUSEA. PT ASKS QUESTIONSA BOUT PLAN OF CARE AND FLUID RESTRICTION. QUESTIONS ANSWERED. PT DENIES ADDITIONAL REQUESTS OR COMPLAINTS. CALL LIGHT WITHIN REACH.
--- NOTE | 2022-11-16 15:54 | NUR ---
CONSULT RECEIVED FOR NUTRITION EDUCATION FOR CHF. PATIENT IS SITTING IN RECLINER TALKING TO HIS SON. HE GOT OFF THE PHONE SO I COULD TALK TO HIM. HE WAS DROWSY THROUGHOUT OUR CONVERSATION. IT IS NOTED THAT A CHF FOLDER FROM [facility] RN, WAS ON HIS BEDSIDE TABLE. PATIENT'S , YAZMIN, COOKS MEALS BUT THEY ALSO HAVE A MEAL SERVICE DELIVER 1 MEAL FOR EACH OF THEM A DAY - THIS IS DIFFERENT THAN MEALS ON WHEELS. THE COMPANY IS "[employer]." HE IS NOT SURE IF THEY ARE LOW-SODIUM BUT HE LIKES THEM PRETTY WELL. HE TYPICALLY EATS 3 MEALS A DAY. HE DOES CHECK HIS BLOOD SUGAR DAILY. HE IS NOT FOND OF LOYA OR SAUSAGE. BREAKFAST IS USUALLY A TURKMEN AND FRESH FRUIT, 1 CUP OF COFFEE WITH 1 SPLENDA AND SPLASH OF 2% MILK. LUNCH IS A [employer]. DINNER VARIES. HE DOESN'T SNACK A LOT, BUT SOMETIMES HAS A COUPLE OF FUN-SIZE SNICKER'S BARS. YAZMIN DOES NOT ADD REGULAR SALT WHEN SHE COOKS. OCCASIONALLY PATIENT ADDS SOME "LIGHT" SALT TO A MEAL. HE DOESN'T EAT OUT MUCH - THEY USED TO EAT OUT EVERY DAY BUT IT IS HARD FOR HIM TO GET AROUND NOW. THEY MAY EAT OUT ONCE A WEEK NOW. I MENTIONED THAT HE NEEDS TO KEEP HIS SODIUM INTAKE LESS THAN 2,000 MG A DAY. I EXPLAINED THAT HE WILL NEED TO AVOID CONVENIENCE/PROCESSED FOODS SINCE THESE ARE THE HIGHEST IN SODIUM. HE STATES HE NEEDS TO BE MORE VIGILANT AT WATCHING WHAT HE EATS. HANDOUT ON HEART FAILURE NUTRITION THERAPY PLACED IN THE CHF FOLDER. MY NAME AND OFFICE # ARE INCLUDED.
--- NOTE | 2022-11-16 17:10 | NUR ---
DINNER DELIVERED. PT WATCHING VIDEOS ON HIS PHONE. PT ALSO SINGING ALONG. PT SEEN TO STOP AND CATCH BREATH WHILE SINGING BUT IS ABLE TO KEEP UP WITH CRISTAL. OXGYEN SATURATIONS OF 95% ON ROOM AIR. PT DENIES PAIN AND NAUSEA. PT CHEERFUL. CONDOM CATHETER REMAINS IN PLACE AND FUNCTIONING WELL. NO ADDITIONAL REQUESTS OR COMPLAINTS. CALL LIGHT WITHIN REACH.
[2022-11-16 18:31] VITALS: BP 117/62
--- NOTE | 2022-11-16 18:34 | NUR ---
THIS RN TO ROOM TO CHECK ON PT. PT FINISHED WITH DINNER. PT STATES HE IS READY TO GET BACK TO BED. VITAL SIGNS STABLE BUT TEMPERATURE 96.9. STAND BY ASSIST WITH FWW BACK TO BED. PT ENCOURAGED TO AMBULATE, PT STATES HE IS NOT YET READY FOR AMBULATION. URINE COLLECTION CANISTER EMPTIED OF 650ML YELLOW URINE. SABA CARE DONE. CONDOM CATHETER REMAINS IN PLACE AND BACK TO SUCTION. WARM BLANKETS PROVIDED. PT CONTINUES LISTENING TO MUSIC ON THE PHONE. PT DENIES PAIN AND NAUSEA. NO ADDITIONAL NEEDS AT THIS TIME. HEAD OF BED ELEVATED TO 43 DEGREES. CALL LIGHT WITHIN REACH. BED RAILS UP.
--- NOTE | 2022-11-16 19:35 | NUR ---
REPORT RECEIVED FROM DAY SHIFT RN. PT RESTING IN BED. SAFETY PRECAUTIONS MAINTAINED. CALL LIGHT TANVIR ALARCON. WILL CONITNUE TO MONITOR.
[2022-11-16 20:05] VITALS: BP 115/66
--- NOTE | 2022-11-16 20:13 | NUR ---
PT ASSESSED AND MEDICATIONS GIVEN. VSS. PT HAS HOME BIPAP AT [facility] AND APPLIES IT INDEPENDENTLY. CONDOM CATHETER IN PLACE WORKING WELL. SAFETY PRECAUTIONS MAINTIANED. CALL LIGHT WIHTIN REACH. WILL CONTINUE TO MONITOR.
--- NOTE | 2022-11-16 22:15 | NUR ---
CONDOM CATHETER REPLACED. NOTED THAT FORSKIN DOES NOT MOVE BACK OVER PIENAL HEAD. CALL LIGHT IN REACH. pt DENIES ANY OTHER NEEDS AT THIS TIME.
--- NOTE | 2022-11-16 23:05 | NUR ---
ASSISTED IT HELP DESK TECHNICIAN WITH CHANGING OF BRIEF FOR LEAKAGE OF CONDOM CATH, PT ALERT, PT REPOSITIONED, RESTING.
--- NOTE | 2022-11-16 23:06 | NUR ---
CHANGED LEADS ON pts TELE. REPOSITIONED pt IN BED. CALL LIGHT IN REACH. pt DENIES ANY FURTHER NEEDS AT THIS TIME.
--- NOTE | 2022-11-17 04:04 | NUR ---
ptS CONDOM CATHETER WAS NOT FITTED PROPERLY, REPLACED IT WITH A NEW CONDOM CATHETER AND COMPLETED A FULL BED CHANGE. pt IN BED RESTING. CALL LIGHT IN REACH. pt DENIES FURTHER NEEDS AT THIS TIME.
[2022-11-17 05:54] VITALS: BP 99/54
--- NOTE | 2022-11-17 06:44 | NUR ---
PT RESTED SOME DURING THE SHIFT. PT WORE CPAP. VSS. CONDOM CATH WORKING WELL. GOOD OUTPUT NOTED. SAFETY PRECAUTIONS MAINTAINED. CALL LIGHT WITHIN REACH. WILL CONTINUE TO MONITOR.
--- NOTE | 2022-11-17 07:26 | NUR ---
GOT REPORT FROM [employer] APPRENTICE NURSE. PATIENT CURRENTLY SITTING UP IN BED RELAXING.
[2022-11-17 08:30] VITALS: BP 112/67
[2022-11-17 08:33] VITALS: BP 112/67
--- NOTE | 2022-11-17 08:43 | NUR ---
PATIENT UP TO THE CHAIR AND ATE ALL HIS MORNING BREAKFAST. PATIENT WATCHING TV AND FINISHING HIS COFFEE. PATIENT GIVEN 300 FRESH WATER HE IS ON A 2000 FLUID RESTRICTIONS. PATIENT HAS BILATERAL WRAPS ON HIS LEGS. TELE IS ON AND WORKING. PATIENT HAS GLASSES ON. PER PATIENT OVERALL FEELS GOOD JUST STATES, "I AM TIRED" MORNING MEDICATIONS GIVEN. PATIENTS CONDOM CATH CONTINUES TO FALL OFF, THIS IS THE THIRD PLACEMENT THIS MORNING. WILL MONITOR AND SEE HOW THINGS GO WITH IT TODAY.
--- NOTE | 2022-11-17 09:13 | NUR ---
PATIENT UP WORKING WITH PHYSICAL THERAPY. PATIENT HAS DEPENDS AND EXTRA PADDING ON CURRENTLY. THIS IS WHAT PATIENT USES AT HOME. SPOKE TO PATIENT IS ON INTAKE AND OUTPUT BUT THE CONDOM CATH IS NOT STAYING ON. PER OK TO LEAVE CONDOM CATH OFF.
[2022-11-17] MEDS ORDERED: TORSEMIDE20 MG PO (10:50)
--- NOTE | 2022-11-17 11:13 | NUR ---
Notified by Dao Everett, pt does not want OP therapy as he is on service with [facility]. Texted Dr. Gilliam and notified. Order for OP therapy cancelled.
--- NOTE | 2022-11-17 11:21 | NUR ---
PATIENT IV REMOVED, PHARMACY ADVISED PATIENT WILL BE DISCHARGING. PATIENT DRESSED IN HIS HOME CLOTHING. PATIENT WILL BE PICKING HIM UP. PATIENT ORDERED LUNCH AND WOULD LIKE TO EAT BEFORE HE GOES.
--- NOTE | 2022-11-17 13:55 | NUR ---
PHARMACIST IN UPDATING PT ON MEDS. GAVE ENCOURAGEMENT AND BLESSING. PT IS TO DC
--- NOTE | 2022-11-17 15:38 | NUR ---
Received a call from [facility]. They are requesting a resumption of care as pt is on service with PT/SN. notified for orders and face sheet, orders, H&P, notes, DCsummary, and PT notes and eval faxed to Kim at [facility].
== END 2022-11-17 13:25 | disposition home or self-care (01) ==
LOC: ED 15:32 → MS 15:35 → ED 18:00 → MS 11-17 13:25
PROVIDERS: ADMIT Family Medicine; ATTEND Family Medicine
DX: I13.0 Hypertensive heart and chronic kidney disease with heart failure and stage 1 through stage 4 chronic kidney disease, or unspecified chronic kidney disease (principal); N18.9 Chronic kidney disease, unspecified; I50.23 Acute on chronic systolic (congestive) heart failure; N17.9 Acute kidney failure, unspecified; I48.19 Other persistent atrial fibrillation; J44.9 Chronic obstructive pulmonary disease, unspecified; E03.9 Hypothyroidism, unspecified; N40.0 Benign prostatic hyperplasia without lower urinary tract symptoms; Z88.1 Allergy status to other antibiotic agents; Z88.8 Allergy status to other drugs, medicaments and biological substances; Z79.84 Long term (current) use of oral hypoglycemic drugs; Z79.899 Other long term (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
CPT/HCPCS: 36415; 71045; 80048; 80053; 81001; 83735; 83880; 85025; 85610; 87088; 94660; 97116; 97162; 99285-25; G0378; J1940